=== PATIENT | male | born 1945 | race Caucasian/White ===

== ENCOUNTER 2023-08-29 09:07 | Outpatient (CLI) | payer MEDICARE, BC, SELFPAY ==
--- OUTSIDE RECORDS SUMMARY | 2023-08-29 09:21 | XMS_ITS | Clinical Summary ---
Author Name Unknown Organization [employer] [facility] Address [place], [place] [address] Care Team Providers Care Rig Superintendent Name Role Phone Post, Dave Velazquez MD Primary Care Provider Moshe Enciso MD Unavailable Arie Justin MD Unavailable [phone] [facility], [facility] Unavailable Murali Hoover DPM Unavailable [phone] Allergies No known active allergies Medications Medication Sig Dispensed Refills Start Date End Date Status omega-3 fatty acids-vitamin E (FISH OIL) 1,000 mg cap Take 2 Capsules by mouth once daily. 0 06/02/2010 Active metFORMIN (GLUCOPHAGE) 1,000 mg tabletIndications:T ype 2 diabetes mellitus with complication, without long-term current use of insulin (HC) Take 1 tablet by mouth 2 times daily with meals. 180 tablet 3 03/22/2018 Active coenzyme q10 100 mg cap Take 3 capsules by mouth once daily. 0 07/04/2019 Active cholecalciferol (VITAMIN D3) 2,000 unit capsule Take 1 Capsule (2,000 units) by mouth once daily. 0 04/21/2021 Active omeprazole 20 mg tablet Take 20 mg by mouth once daily if needed. 0 05/21/2021 Active Lantus Solostar U-100 Insulin 100 unit/mL (3 mL) penIndications:Unco ntrolled type 2 diabetes mellitus with hyperglycemia (HC) Inject 24 units subcutaneous before bedtime. Product desired: SNEHA JACOBSENOSTAR 1 Each 0 09/10/2021 Active cyanocobalamin (Vitamin B-12) 1,000 mcg tabletIndications:V itamin B12 deficiency Take 1 Tablet (1,000 mcg) by mouth once daily. 90 Tablet 3 12/28/2021 Active atorvastatin (LIPITOR) 40 mg tablet Take 40 mg by mouth at bedtime. 0 Active semaglutide (OZEMPIC) 1 mg/dose (4 mg/3 mL) Inject 1 mg subcutaneous every Monday. 0 02/02/2022 Active aspirin (ECOTRIN) 81 mg enteric coated tablet Take 81 mg by mouth once daily with a meal. 0 Active polyethylene glycol (MIRALAX; GLYCOLAX) 17 g powder for solutionIndications :Constipation due to pain medication Take 17 g by mouth or nasogastric tube once daily. 30 Each 0 05/31/2022 Active melatonin 3 mg tabletIndications:I nsomnia, unspecified type Take 1 Tablet (3 mg) by mouth at bedtime. 0 06/02/2022 Active tamsulosin (FLOMAX) 0.4 mg capsuleIndications: Urinary retention Take 1 Capsule (0.4 mg) by mouth once daily after a meal. 30 Capsule 0 06/03/2022 Active finasteride (PROSCAR) 5 mg tabletIndications:B PH with urinary obstruction Take 1 Tablet (5 mg) by mouth every morning. 0 06/30/2022 Active wheelchairIndicatio ns:Diabetic infection of right foot (HC) Wheelchair: Standard with leg rests: (Swing away) + cushion . Length of need: 99 months 1 Each 0 07/04/2022 Active clopidogreL (PLAVIX) 75 mg tablet Take 75 mg by mouth every morning. 0 06/28/2023 Active Active Problems Problem Noted Date Diagnosed Date Urinary retention 08/31/2022 Overview: Dr. Barrientos. Gordon placed during critical illness 03/2022. Outpatient cystoscopy without evidence of obstruction. Urodynamic studies planned. S/P Left shoulder I&D DOS:05/03/2022 Dr. 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 Staphylococcal arthritis of left shoulder 2021 COVID-19 virus infection 05/01/2022 Coronary artery disease due to calcified coronar y lesion 05/21/2021 Overview: Asymptomatic, discovered on CT. Inferoapical ischemia on myoview. Last done 2018. Sees Cardiology, managed medically. Osteomyelitis of left foot 07/03/2014 Diabetic foot ulcer 10/10/2013 GERD (gastroesophageal reflux disease) 3 ACP (advance care planning) 05/03/2013 Dysphagia - soft foods 04/22/2013 Venous insufficiency 07/01/2010 Diabetes mellitus type II 06/02/2010 Overview: Diagnosed in the . Historically exercise and diet controlled. Worsened 2009 after not exercising. eye exam no retinopathy 05/2010. Myalgias with atorvastatin. Neuropathy 06/02/2010 Routine general medical examination 06/02/2010 Overview: Alcoholism- sober since 2001. AAA- normal 2009 Colonoscopy- Has never had. Has declined thus far. colonoguard negative 2017. Prostate- Discussed again 2013, he declines. Bone- Age 66 if risks Depression- All Immunizations- Discussed PCV13 and tdap 2013, he declines for now. Pneumococcus had at age 63. Diabetic infection of left foot Resolved Problems Problem Noted Date Diagnosed Date Resolved Date BPH with urinary obstruction 06/17/2022 08/31/2022 SURYA (acute kidney injury) 05/21/2022 Pneumonia due to infectious organism 05/20/2022 06/17/2022 Bacteremia 05/02/2022 06/17/2022 Non-healing non-surgical wound 05/02/2022 08/31/2022 Overview: Bottom LEFT foot Sepsis due to methicillin tejada sceptible Staphylococcus aureus (MSSA) without acute organ dysfunction 05/02/2022 06/17/2022 Irregular heart rhythm 05/01/202206/17 Left arm pain 05/01/2022 06/17/2022 Left shoulder pain 05/01/2022 2 Bacteremia 06/04/2021 06/17/2022 Coronary artery calcification seen on CT scan 11/22/19 18 05/21/2021 Overview: Met with Cardiology and had perfusion imaging 2016. Cellulitis of left foot 07/03/201403/01 Severe sepsis 07/03/2014 05/19/2021 Toe ulcer 01/23/2014 06/17/2022 Callus of foot 05/03/2013 06/17/2022 Osteomyelitis of ankle or foot, right, acute 3 07/03/2014 Hypertrophy of prostate with urinary obstruction and other lower urinary tract symptoms (LUTS) 05/19/2011 03/17/2017 Overview: flomax didn't help Jayde Care Contract 07/13/2010 012 Overview: This patient, PCP and Care Guide have signed a letter agreeing on a set of goals for diabetes, hypertension and/or CHF. Please look for Jayde Care Goal Contract in Chart Review/ Letters and support this effort. Please direct questions to Care Guide Pamella Brennan Phone number [phone]. Alcohol abuse 06/02/2010 03/26/2019 Overview: Sober since 2001. Great success with AA. 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 06/17/2022 Encounters Date Type Department Care Team Description 07/21/2023 1:30 PM ALMOND GRINDER Office Visit [facility] Darleen Thompson [address] [place] [address] [address] [place] [id number] Jose Oliver MD CV General Cardiology Est (Overdue Annual F/U; Pt had an angiogram and was told he had an irregular heartbeat and needed to see cardiology) 07/21/2023 Telephone [facility] [place] [address] [facility] [address] [place] [phone] Jose Oliver MD Referral 07/21/2023 Orders Only [facility] [address] [facility] [address] [place] [address] Angelita Aquino <No scans attached> 07/21/2023 Travel 06/02/2023 Telephone [facility] [place] [address] [facility] [address] [place] [address] Post, Dave Velazquez MD verbal orders from Last 3 Months Immunizations Name Administration Dates Next Due Influenza Virus, Unspecified 06/18/2007 Influenza, High-dose Quadriv alent Inactivated 04/21/2020 Influenza, IIV4 04/27/2018,07/01/2016,07/08/2014 Pneumococcal Poly,23-Valent (Pneumovax) 11/04/19 11 Pneumococcal conj 13-Valent (Prevnar 13) 016 Pneumococcal, Unspecified 04/19/2007 Td, Preservative Free (age >= 7 Years) 6 Tdap 09/20/2015 Tetanus Toxoid, Unspecified 03/09/2007 Zoster (Shingrix-RZV, recombinant) 07/16/2020, Family History Medical History Relation Name Comments Cancer Father : Eseligio ageal Cancer Heart Disease Father bypass age 65 Cancer Mother Melanoma; Yamilexe ntly living age 87 Good Health Sister 1 Good Health Sister 2 Relation Name Status Comments Father Mother Sister 1 Sister 2 Social History Tobacco Use Types Packs/Day Years Used Date Smoking Tobacco: Former Cigarettes 1 50 0 08/14/1962 - 08/14/2012 Smokeless Tobacco: Never Tobacco Cessation:Counseling Given: Yes Comments:06/2012 Alcohol Use Standard Drinks/Week Comments No 0 (1 standard drink = 0.6 oz pur e alcohol) Sober since 2001. PHQ-2 Answer Date Recorded PHQ-2 Score 1 03/26/2019 Social Connections Answer Date Recorded Frequency of Communication with Friends and Fami ly Not on file 07/30/2021 Financial Resource Strain Answer Date R ecorded Difficulty of Paying Living Expenses Not on file 07/30/2021 Difficulty of Paying Living Expenses Not on file 07/30/2021 Sex and Gender Information Value Date Recorded Sex Assigned at Not on file Gender Identity Not on file Sexual Orientation Not on file Obstetrics History Last Filed Vital Signs Vital Sign Reading Time Taken Comments Blood Pressure 126/60 07/21/2023 1:34 PM ALMOND GRINDER Pulse 75 07/21/2023 1:34 PM ALMOND GRINDER Temperature 36.7 ??C (98 ??F) 06/29/2022 8:43 AM ALMOND GRINDER Respiratory Rate 18 06/29/2022 8:43 AM ALMOND GRINDER Oxygen Saturation 96% 07/21/2023 1:34 PM ALMOND GRINDER Inhaled Oxygen Concentration - - Weight 104.3 kg (230 lb) 07/21/2023 1:34 PM ALMOND GRINDER Height 180.3 cm (5' 10.98) 07/21/2023 1:34 PM C Body Mass Index 32.09 07/21/2023 1:34 PM ALMOND GRINDER Plan of Treatment Upcoming Encounters Date Type Department Care Team (Late st Contact Info) Description 09/04/2023 10:30 AM ALMOND GRINDER Ancillary Procedure [facility] [address] [place] [id number] Health Maintenance Due Date Last Done Comments COVID-19 vaccine series (#1) 1945 Hepatitis C screening for ag e 18-79 1964 Pneumococcal series for age 65+ (3 of 3 - PPSV23 or PCV20) 09/11/2016 09/11/2015, 11/03/2010, 04/19/2007 Medicare Wellness for age 65+ 03/25/2020 03/26/2019, 03/22/2018 Depression screening for age 12+ 03/26/2020 03/26/20 19, 03/22/2018 Influenza for age 65+ 03/31/2023 04/21/2020 , 04/27/2018, 07/01/2016, Additional history exists Low Dose CT (for lung CA) ag e 50-80 05/10/2023 05/10/2022, 04/30/2022, 06/04/2021 BMI (ht and wt on same day) for age 18+ 07/21/2024 07/21/2023, 09/10/2021, 07/04/2019, Additional history exists Tetanus booster 09/20/2025 09/20/2015, 09/11/2015 Fecal testing non-DNA (FIT,FOBT,iFOBT) for age 45-75 Discontinued 07/03/2013 Tdap Completed 09/20/2015 Zoster (shingles) series for age 50+ Completed 07/16/2020, 04/21/2020 Medical Devices Implanted Type Area Dental Biller Device Identifier Shelf Expiration Date Model / Serial / Lot [id number] - [id number] Implanted:Qty: 1 on 09/20/2021 at [facility] Right: Foot [employer] AR-8725-4 4H / / Description:COMPRESSION FT S CREWS CANNULATED, 2.5 MICRO 44MM LOAD 4 [id number] [facility]1530p - [id number] Implanted:Qty: 1 on 09/20/2021 at [facility] Right: Foot [employer] 03/30/2025 AR-1530P- CP / / [id number] Description:FOREFOOT INTERNA L BRACE IMPLANT SYSTEM, PEEK Screw 4.79t26db Bio Compositetenodesis Disp Card Grinder Pk - [id number] Implanted:Qty: 1 on 09/20/2021 at [facility] Right: Foot [employer] 08/30/2022 AR-1547CD S / / [id number] Ancr Sut 1.3mm Dx Fibertak Suturetape 2 Ndl 26.2mm /2 Cir - [id number] Implanted:Qty: 1 on 09/20/2021 at [facility] Right: Foot [employer] 06/29/2026 AR-8990ST / / [id number] Explanted Type Area Dental Biller Device Identifier Shelf Expiration Date Model / Serial / Lot Wire Kirs .[id number] Smooth6/Pk 1645- Depuy/Héctor - [id number] Explanted:Qty: 1 on 09/20/2021 at [facility] Right: Foot [employer] / / Description:LOAD 4 8 [id number] [facility]8737-40 - [id number] Explanted:Qty: 1 on 09/20/2021 at [facility] Right: Foot [employer] AR-8737-40 / / Description:2.5 MICRO COMPRE SSION FT DRILLS AND DISPOSABLES, GUIDEWIRE W TROCAR TIP, THREADED, 0.34 IN (.86MM) LOAD 4 [id number] Procedures Procedure Name Priority Date/Time Associated Diagnosis Comments EXTENDED HOLTER Routine 08/03/2023 SOB (shortness of breath) Fatigue, unspecified type Irregular heart beat EKG 12 LEAD Routine 07/21/2023 3:01 PM ALMOND GRINDER SOB (shortness of breath) Fatigue, unspecified type Irregular heart beat from Last 3 Months Results * ZIO PATCH XT - weekly to monthly symptoms. (08/03/2023) Jose Oliver MD CARDIAC SERVICES ORD * EKG 12 LEAD (07/21/2023 3:01 PM ALMOND GRINDER) Interpretation Sinus tachycardia with 1st degree A-V block Left axis deviation Right bundle branch block Abnormal ECG When compared with ECG of 18-JUN-2022 12:48, Premature atrial complexes are no longer Present Ventricular Rate 105 BPM Atrial Rate 105 BPM P-R Interval 224 ms QRS Duration 146 ms QT 374 ms QTc 494 ms P Buckner 73 degrees R Buckner -86 degrees T Buckner 69 degrees 07/21/2023 3:01 PM ALMOND GRINDER 07/21/2023 4:31 PM ALMOND GRINDER Jose Oliver MD EKG ORD from Last 3 Months Advance Directives Documents on File Type Date Recorded Patient Curve Saw Operator Expl anation Healthcare Directive 05/21/2021 3:50 PM H EALTH CARE DIRECTIVE 2020 Latest Code Status on File Code Status Date Activated Date Inactivated Comments Full Code 06/18/2022 7:33 AM 06/29/2022 4:12 PM Question Answer Comments Code Status Discussion: Reviewed Preferences Code Status History Code Status Date Activated Date Inactivated Comments Full Code 06/17/2022 6:52 PM 06/18/2022 7:33 AM Question Answer Comments Code Status Discussion: Unable to Assess Preferences, Provider to review later Full Code 05/01/2022 1:05 AM 05/30/2022 5:42 PM Question Answer Comments Code Status Discussion: Reviewed Preferences Full Code 09/20/2021 7:15 AM 09/20/2021 4:26 PM Question Answer Comments Code Status Discussion: Unable to Assess Preferences, Provider to review later DNR 06/03/2021 3:05 PM 06/09/2021 1:31 PM Question Answer Comments Code Status Discussion: Reviewed Preferences Care Teams Rig Superintendent Relationship Specialty Start Date End Date Post, Dave Velazquez MD PCP - General 06/02/10 [place] [address] [place] [address] [address] [place], [place] [address] Endocrinology Endocrinology 01/04/18 [place] [address] [place], [place] [id number] Surgery - Ophthalmology 03/22/18 [facility] [address] [facility] [address] [place] [address] 06/08/21 Murali Hoover DPM [address] [place] [place] [address] Surgery - Podiatric 01/03/23
--- OUTSIDE RECORDS SUMMARY | 2023-08-29 09:21 | XMS_ITS | Clinical Summary ---
Author Name Unknown Organization [facility] Address [address] [place] [address] Care Team Providers Care Explosives Detonator Name Role Phone Post, Dave Wakefield Primary Care Provider [phone] Medications Medication Sig Dispensed Refills Start Date End Date Status sulfamethoxazole-trim ethoprim (BACTRIM DS/SEPTRA DS) 800-160 MG tablet Take 1 tablet by mouth 2 times daily 20 tablet 0 06/26/2018 Active Social History Tobacco Use Types Packs/Day Years Used Date Smoking Tobacco: Former Smokeless Tobacco: Never Alcohol Use Standard Drinks/Week Comments No 0 (1 standard drink = 0.6 oz pur e alcohol) Adolescent Education Answer Date Record ed Getting School Help Needed Not on file 05/07 Sex and Gender Information Value Date Recorded Sex Assigned at Not on file Gender Identity Not on file Sexual Orientation Not on file Last Filed Vital Signs Vital Sign Reading Time Taken Comments Blood Pressure 148/85 06/26/2018 5:58 PM CHILD WELFARE SPECIALIST Pulse 90 06/26/2018 5:58 PM CHILD WELFARE SPECIALIST Temperature 36.6 ??C (97.8 ??F) 06/26/2018 5:58 PM CS T Respiratory Rate 18 06/26/2018 5:58 PM CHILD WELFARE SPECIALIST Oxygen Saturation 95% 06/26/2018 7:00 PM CHILD WELFARE SPECIALIST Inhaled Oxygen Concentration - - Weight 112 kg (247 lb) 06/26/2018 5:58 PM CHILD WELFARE SPECIALIST Height 180.3 cm (5' 11) 06/26/2018 5:58 PM CHILD WELFARE SPECIALIST Body Mass Index 34.45 06/26/2018 5:58 PM CHILD WELFARE SPECIALIST Plan of Treatment Health Maintenance Due Date Last Done Comments A1C 1945 ADVANCE CARE PLANNING 1945 ANNUAL REVIEW OF HM ORDERS 1946 DIABETIC FOOT EXAM 1945 EYE EXAM 1945 LIPID 1945 MICROALBUMIN 1946 COVID-19 Vaccine (#1) 1945 HEPATITIS C SCREENING 1964 LUNG CANCER SCREENING 1996 ZOSTER IMMUNIZATION (1 of 2) 1996 RSV VACCINE ( & 60+ ) (1 - 1-dose 60+ series) 2006 FALL RISK ASSESSMENT 2011 MEDICARE ANNUAL WELLNESS VISIT 2011 DTAP/TDAP/TD IMMUNIZATION (1 - Tdap) 09/12/2015 09/11/2015 Pneumococcal Vaccine: 65+ Years (3 of 3 - PPSV23 or PCV20) 09/11/2016 09/11/2015, 11/03/2010 INFLUENZA VACCINE (#1) 2023 6, 07/08/2014 BMP 06/30/2023 06/30/2022, 06/26/2018 PHQ-2 (once per calendar year) 2023 HPV IMMUNIZATION Aged Out No longer e ligible based on patient's age to complete this topic IPV IMMUNIZATION Aged Out No longer e ligible based on patient's age to complete this topic MENINGITIS IMMUNIZATION Aged Out No l onger eligible based on patient's age to complete this topic RSV MONOCLONAL ANTIBODY Aged Out No l onger eligible based on patient's age to complete this topic Care Teams Explosives Detonator Relationship Specialty Start Date End Date Post, Dave Wakefield PCP - General Internal Medicine 06/26/18
--- OUTSIDE RECORDS SUMMARY | 2023-08-29 09:21 | XMS_ITS | Encounter Summary ---
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 Organization [facility] Address [address] [place] [address] Support Name Relationship Address Phone DOROTHY DUONG Next of Kin Unknown DOROTHY DUONG Emergency Contact Unknown [phone] Insurance Providers: All historical and current Section Date Range: From patient's date of to the date document was created. This section includes the names of all active insurance providers for the patient. Insurance Provider Type of Coverage Plan Name Start of Policy Coverage End of Policy Coverage Group Number Member ID Insurance Provider's Telephone Number Policy Molina's Name Patient's Relationship to Policy Molina [place] SU[place] [employer] SUPPL EMENT Jul 31, 2018 [id number] RODNEYBRITTNEYKANE ALEX PATIENT [place] SUPPL EMENT Jul 31, 2018 [id number] [phone] [place] [facility] (WNR) MEDICARE ADVANTAGE [facility] (WNR) Jul 31, 2017 [id number] [phone] RENBR[place]NEYK[place] ALEX PATIENT [place] SUPPLEMEN [place] MED[place] ARE SUPPL EMENT Jul 31, 2018 [id number] [phone] REN[place] A[place] PATIENT [place] SUPPLEMEN [place] MED[place] ARE SUPPL EMENT Jul 31, 2018 [id number] [phone] RODNEYBRITTNEYKANE ALEX PATIENT MEDICARE (WNR) MEDICARE (M) PART A May 31, 2011 PART A [id number] [phone] BETOKANE JOHNSON PATIENT MEDICARE (WNR) MEDICARE (M) PART B May 31, 2011 PART B [id number] [phone] KANE PÉREZN PATIENT Selected Encounter This section includes the information on record at [place] for the Encounter. Date/Time Encounter Type Encounter Description Reason Provider Source Sep 29, 2022 11:30 AM PRO PHONE CALL 11-20 MIN TELEPHONE PRIMARY CARE ICD-10-CM E11.42 Type 2 diabetes mellitus with diabetic polyneuropathy KARI BRITO [facility] Encounter Template Text not used by [place] Assessments - Encounter Diagnoses This section includes the primary and secondary diagnoses documented for the Encounter. Date/Time Primary/Secondary Diagnosis Diagnosis Name Provider Source Sep 29, 2022 11:30 AM PRIMARY Type 2 diabetes mellitus with diabetic polyneuropathy KARI BRITO [facility] Plan of Treatment: Future Appointments (+ 6 months) and Future Tests (+/- 45 days) The Plan of Treatment section includes future care activities for the patient from all [place] treatmentfacilities. This section includes future appointments and future orders which are active, pending or scheduled. Future Appointments This section includes appointments that were scheduled to occur 6 months from the date of the Encounter, up to a maximum of 20 appointments. The data comes from all [place] treatment facilities. Appointment Date/Time Appointment Type Appointme nt Facility Name Nov 07, 2022 11:30 AM AMBULATORY - MEDICINE [facility] December 05, 2022 07:01 AM AMBULATORY - NONE [facility] December 07, 2022 11:30 AM AMBULATORY - MEDICINE [facility] December 27, 2022 09:30 AM AMBULATORY - MEDICINE [facility] Jan 06, 2023 11:30 AM [facility] Mar 14, 2023 03:30 PM [facility] Mar 22, 2023 01:45 PM [facility]ONE [facility] Mar 22, 2023 02:45 PM AMBULATORY - MEDICINE [facility] Social History: Smoking Status (Most current) and Tobacco Use (All prior to encounter date) This section includes the most current, and the historical, smoking and tobacco- related health factors from the [place] facility where the Encounter took place. Current Smoking Status This section includes the most current smoking, or tobacco-related health factor, from the [place] facility where the Encounter took place. Date/Time Current Smoking Status Comment Facil ity Aug 18, 2022 08:30 AM [place]-TOBAC[place] QUIT 15 YRS OR MORE [facility] Tobacco Use History This section includes a history of the smoking, or tobacco-related health factors, that were collected on or before the date of the Encounter. The data comes from the [place] facility where the Encounter took place. Date/Time Smoking Status/Tobacco Use Comment F acility Aug 18, 2022 08:30 AM [place]-TOBACCO QUIT 15 YRS OR MORE [facility] May 03, 2021 08:00 AM VA-TOBACCO FORMER USER [facility] May 03, 2021 08:00 AM VA-TOBACCO QUIT 15 YRS OR MORE [facility] Apr 21, 2020 09:00 AM VA-TOBACCO FORMER USER [facility] Apr 21, 2020 09:00 AM [place] 15 YRS OR MORE [facility] Apr 03, 2018 03:16 PM FORMER TOBACCO USE >1Y <7Y [facility] Mar 09, 2007 10:41 AM CURRENT TOBACCO USER [facility] Advance Directives: All historical and current Section Date Range: From patient's date of to the date document was created. This section includes ALL of a patient's completed or amended [place] Advance and Rescinded Directives. The entries below indicate that a directive exists for the patient, but an actual copy is not included with this document. The data comes from all [facility]. Date Advance Directives Provider Source Jun 22, 2021 ADVANCE DIRECTIVE DISCUSSION ALLYSON GRAF [facility] Jun 22, 2021 ADVANCE DIRECTIVE ALLYSON GRAF [facility] Mar 09, 2007 ADVANCE DIRECTIVE SOLEDAD WOLFF [facility] Encounter Notes: All associated encounter notes This section contains the clinical notes associated to the Encounter. Date/Time Encounter Note(s) Provider Source Sep 29, 2022 11:09 AM PHARMACY NOTE: LOCAL TITLE: PHARMACOTHERAPY-CLINICAL PHARMACY NOTE STANDARD TITLE: PHARMACY NOTE DATE OF NOTE: SEP 29, 2022@11:09 ENTRY DATE: SEP 29, 2022@11:09:45 AUTHOR: BROOKLYN MORA EXP COSIGNER: KARI BRITO URGENCY: STATUS: COMPLETED PHARMACOTHERAPY-CLINICAL PHARMACY NOTE Has ADDENDA BACKGROUND: RENAUX,MIGUELINA CHRISTIAN is a 77 YO MALE contacted by phone for medication management, mainly for DM. PMH is significant for T2DM with chronic foot infections, GERD, and HLD. SUBJECTIVE: Not feeling organized at the time of the call. About 2 weeks ago he saw something that said he should be doing 22 units Lantus as opposed to the 25 units he thought he was supposed to be taking. He has since been taking 22 units. He is not happy about checking blood sugars via finger sticks after 30 years. He wants to use a CGM to avoid this, but he recalls previous conversations about him not being eligible. He wants to go back up to 1mg semaglutide when he can but understands that it is not yet available. He has a 1mg pen at home that is unopened. He is not sure of the expiration date on the 1mg pen. Blood sugar was all over the place while in the hospital. No dizziness or lightheadedness reported. Not able to urinate right now, having difficulty since hospitalization. Seeing a urologist for testing. 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 Beverages: diet coke, water, coffee Activity: Activity is down but increasing slowly. Due to his foot infection, he uses a wheelchair. He is in the process of transitioning to walker and has been able to take a few steps per day with the walker. Having some balance issues. No falls. Last walked 04/27/2022. ROS: (-) hypoglycemia symptoms --> denies any recent lows. Experiences symptoms when he is below 70-80. He is aware of signs/sxs. Reports awareness in the past on some occasions. Lowest recalled reading was 95. (-) hyperglycemia symptoms SMBG Readings: Date Morning 09/09 150 09/10 126 09/11 120 09/12 113 09/13 115 09/14 110 09/16 111 09/17 109 09/18 95 09/19 100 09/21 153 09/22 136 09/23 140 09/24 116 09/25 160 09/26 143 09/27 111 09/28 140 09/[address] 124 MIN 95 MAX 160 Home BP Readings: Reports 115-130s/75-80s at home. Did not have actual readings. Nurse checks 3 times weekly. Adherence to medications: Manages independently. Denies any issues with missed doses. OBJECTIVE: ALLERGIES/ADR: VANCOMYCIN (Apr 27, 2018) MEDICATION RECONCILIATION: Active and Recently Outpatient Medications (excluding Supplies): Active Outpatient Medications Status 1) ATORVASTATIN CALCIUM 40MG TAB TAKE ONE TABLET BY ACTIVE MOUTH EVERY DAY FOR CHOLESTEROL 2) FINASTERIDE 5MG TAB TAKE ONE TABLET BY MOUTH EVERY ACTIVE DAY FOR PROSTATE 3) INSULIN,GLARGINE 100 UNT/ML 3ML SOLOSTAR INJECT 24 see text UNITS UNDER THE SKIN AT BEDTIME FOR DIABETES - has been taking 22 units daily x 2 weeks 4) METFORMIN HCL 1000MG TAB TAKE ONE TABLET BY MOUTH confirmed TWICE A DAY FOR DIABETES 5) OMEPRAZOLE 20MG EC CAP TAKE ONE CAPSULE BY MOUTH HOLD EVERY DAY ON AN EMPTY STOMACH, AT LEAST 30 MINUTES PRIOR TO A MEAL FOR GERD 6) SEMAGLUTIDE 0.5MG/0.375ML INJ PEN 1.5ML INJECT 0.5MG confirmed UNDER THE SKIN EVERY WEEK FOR DIABETES 7) TAMSULOSIN HCL 0.4MG CAP TAKE ONE CAPSULE BY MOUTH ACTIVE (S) EVERY EVENING Active Non-VA Medications Status 1) Non-VA ASCORBIC ACID 500MG TAB 500MG MOUTH TWICE A ACTIVE DAY 2) Non-VA ASPIRIN 81MG EC TAB 81 MG MOUTH EVERY DAY ACTIVE 3) Non-VA CHOLECALCIFEROL TAB 5000 UNITS MOUTH EVERY DAY ACTIVE 4) Non-VA COENZYME Q10 100MG TAB/CAP 1 CAPSULE MOUTH ACTIVE EVERY DAY 5) Non-VA CYANOCOBALAMIN 1000MCG TAB 1000MCG MOUTH EVERY ACTIVE DAY 6) Non-VA FISH OIL 1000MG (500MG DHA/EPA) CAP 1 GM MOUTH ACTIVE TWICE A DAY 7) Non-VA MAGNESIUM OXIDE 400MG TAB 400MG MOUTH EVERY ACTIVE DAY 8) Non-VA TURMERIC CAP/TAB 500 MG MOUTH TWICE A DAY ACTIVE 15 Total Medications Vitals: Temperature: 97 F [36.1 C] (08/18/2022 08:26) Blood Pressure: 94/64 (08/18/2022 08:33) Pulse: 78 (08/18/2022 08:26) Respiration: 18 (08/18/2022 08:26) Pain: 5 (08/18/2022 08:26) Height: 71 in [180.3 cm] (08/03/2021 12:53) Weight: Unavailable (08/18/2022 08:26) BMI: 0.0 LABS: Basic Metabolic Panel SODIUM 137 (08/18/22) POTASSIUM 3.9 (08/18/22) CREATININE 0.9 (08/18/22) UREA NITROGEN 12 (08/18/22) GLUCOSE 184 H (08/18/22) CO2 26 (08/18/22) CHLORIDE 102 (08/18/22) EGFR (03/03) 08/03/21 @ 1226 94 CREATININE EGFR (CKD-EPI) 08/18/22 @ 0731 89 MAGNESIUM 1.6 (08/18/22) Collection DT Specimen Test Name Result Units Ref Range 08/18/2022 07:31 PLASMA CREATININE 0.9 mg/dL 0.7 - 1.2 12/22/2021 14:31 PLASMA CREATININE 1.1 mg/dL 0.7 - 1.2 08/03/2021 12:26 PLASMA CREATININE 0.8 mg/dL 0.7 - 1.2 08/18/2022 07:31 PLASMA CREAT EGFR(CKD-EP 89 Ref: >=60 12/22/2021 14:31 PLASMA CREAT EGFR(CKD-EP 70 Ref: >=60 08/03/2021 12:26 PLASMA ESTIMATED GFR(eGF >60 Ref: >=60 06/15/2021 11:53 PLASMA ESTIMATED GFR(eGF >60 Ref: >=60 05/03/2021 09:07 PLASMA ESTIMATED GFR(eGF >60 Ref: >=60 Collection DT Spec HGBA1C 08/18/2022 07:31 BLOOD 6.8 H 12/22/2021 14:31 BLOOD 8.2 H 08/03/2021 12:26 BLOOD 8.3 H Collection DT Specimen Test Name Result Units Ref Range 05/03/2021 09:35 URINE ALB/CREAT RATIO,U 39.7 H mg/g creat Ref: <=29.9 04/19/2007 14:08 URINE ALB/CREAT RATIO,U 9.70 mg/gCreat 0 - 30 ASSESSMENT: #T2DM with a positive c-peptide -Goal A1c <8% (FBG 80-160, PPG <210) per [place] guidelines. Last A1c was down significantly and below goal. Current SMBG values are acceptable. Offered clarification on reasoning for why a personal CGM would not be approved. Rediscussed using the 2-week diagnostic CGM to help track trends, if interested. Will continue the present regimen with 22 units glargine. Going forward, will revisit moving back up to the 1 mg dose of semaglutide, pending supply availability. PLAN: Medications: -Continue 22 units insulin glargine. -Continue metformin 1000mg BID -Continue semaglutide 0.5mg once weekly Monitoring: -Check BG once daily, varying times #Disease-Specific Med Rec: Completed today #Labs: up to date - Educated vet on indication/risks/benefits of new/changed medication. - Education provided on therapeutic nonpharmacologic management to achieve goals. - Vet advised of recent labs. - [place] verbalized understanding to all plans discussed today. Questions were answered to vet's satisfaction. 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 See above for further pertinent subjective and objective information. 77 yo vet contacted for DM f/u. Reports doing well. A/P #T2DM with a positive c-peptide -Goal A1c <8% (FBG 80-160, PPG <210) per [place]. Recent A1c was down significantly and below goal. Current SMBG values are acceptable. Will continue the present regimen. Going forward, will revisit moving back up to the 1 mg dose of semaglutide, pending supply availability. I agree with the rest of the assessment and POC, as above. F/U: 11/07 phone /toby/ KARI BRITO, PHARM D, [facility] PHARMACIST Signed: 09/29/2022 13:18 BROOKLYN MORA [facility]
--- OUTSIDE RECORDS SUMMARY | 2023-08-29 09:21 | XMS_ITS | Encounter Summary ---
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 Organization [facility] Address [address] [place] [address] Support Name Relationship Address Phone DOROTHY DUONG Next of Kin Unknown DOROTHY DUONG Emergency Contact Unknown Insurance Providers: All historical and current Section [...] MEDIC ARE SUPPL EMENT Jul 31, 2018 [id number] [phone] RODNEY[place] ALEX PATIENT [place] MED[place] ARE SUPPL EMENT Jul 31, 2018 [id number] [phone] [place]NEY[place] ALEX PATIENT [place] [facility] (WNR) MEDICARE ADVANTAGE [facility] (WNR) Jul 31, 2017 [id number] [phone] RENBRITTNEYKANE ALEX PATIENT [place] SUPPLE[place] MEDIC ARE SUPPL EMENT Jul 31, 2018 [id number] [phone] RENBR[place]NEYAK[place] ALEX PATIENT [place] SU[place] MEDIC ARE SUPPL EMENT Jul 31, 2018 [id number] [phone] RODNEYBRITTNEYKANE ALEX PATIENT MEDICARE (WNR) MEDICARE (M) PART A May 31, 2011 PART A [id number] [phone] RENKANE LUGO PATIENT MEDICARE (WNR) MEDICARE (M) PART B May 31, 2011 PART B [id number] [phone] KANE PÉREZ PATIENT Selected Encounter This section includes the information on record at [place] for the Encounter. Date/Time Encounter Type Encounter Description Reason Provider Source Aug 29, 2022 11:30 AM PRO PHONE CALL 11-20 MIN TELEPHONE PRIMARY CARE ICD-10-CM E11.42 Type 2 diabetes mellitus with diabetic polyneuropathy KARI BRITO [facility] Encounter Template Text not used by [place] Assessments - Encounter Diagnoses This section includes the primary and secondary diagnoses documented for the Encounter. Date/Time Primary/Secondary Diagnosis Diagnosis Name Provider Source Aug 29, 2022 11:30 AM PRIMARY Type 2 diabetes mellitus with diabetic polyneuropathy KARI BRITO [facility] Plan of Treatment: Future Appointments (+ 6 months) and Future Tests (+/- 45 days) The Plan of Treatment section includes future care activities for the patient from all [place] treatmentfacilities. This section includes future appointments and future orders which are active, pending or scheduled. Future Appointments This section includes appointments that were scheduled to occur 6 months from the date of the Encounter, up to a maximum of 20 appointments. The data comes from all [place] treatment facilities. Appointment Date/Time Appointment Type Appointme nt Facility Name Sep 29, 2022 11:30 AM AMBULATORY - MEDICINE [facility] Nov 07, 2022 11:30 AM AMBULATORY - MEDICINE [facility] December 05, 2022 07:01 AM AMBULATORY - NONE [facility] December 07, 2022 11:30 AM AMBULATORY - MEDICINE [facility] December 27, 2022 09:30 AM AMBULATORY - MED[facility] Jan 06, 2023 11:30 AM AMBULATORY - MEDICINE [facility] Lab Results: +/- 30 days of the encounter This section includes the Chemistry and Hematology Lab Results on record with [place] for the patient. Radiology Reports and Pathology Reports are provided separately, in subsequent sections. Lab Results This section contains the Chemistry/Hematology Results that were resulted 30 days before or 30 daysafter the date of the Encounter. Date/Time Source Result Type Result - Unit Interpretation Reference Range Comment Aug 18, 2022 07:31 AM [facility] HEMOGLOBIN A1C Specimen Type: BLOOD Comment: Values obtained from A1C measurements can vary. For typical A1C assays, a reported value of 7.0 could actually be between 6.7 and 7.3 if measured by a reference method. A reported value of 9.0 could actually be between 8.7 and 9.3. Ref: http://www.ngs p.org/CAPdata. asp Ordering Provider: SOSA FISH Report Released Date/Time: December 22, 2021 03:46 PM Reporting Lab: [facility] [id number] Performing Lab: [facility] [id number] HEMOGLOBIN A1C 6.8 H 4.0-6.0 Aug 18, 2022 07:31 AM [facility] BASIC METABOLIC PANEL+MG Specimen Type: PLASMA No comment entered. Ordering Provider: SOSA FISH Report Released Date/Time: December 22, 2021 03:46 PM Reporting Lab: [facility] [id number] Performing Lab: [facility] [id number] CREATININE 0.9 0.7-1.2 UREA NITROGEN 12 8-26 GLUCOSE 184 H 70-100 SODIUM 137 136-145 POTASSIUM 3.9 3.5-5.1 CHLORIDE 102 98-107 CO2 26 22-29 CALCIUM 9.4 8.4-10.2 MAGNESIUM 1.6 1.6-2.6 ANION GAP 9 5-15 CREAT EGFR(CKD-EPI ) 89 >60 Social History: Smoking Status (Most current) and Tobacco Use (All prior to encounter date) This section includes the most current, and the historical, smoking and tobacco- related health factors from the [place] facility where the Encounter took place. Current Smoking Status This section includes the most current smoking, or tobacco-related health factor, from the [place] facility where the Encounter took place. Date/Time Current Smoking Status Comment Diego peng Aug 18, 2022 08:30 AM VA-TOBACCO FORMER USER [facility] Tobacco Use History This section includes a history of the smoking, or tobacco-related health factors, that were collected on or before the date of the Encounter. The data comes from the [place] facility where the Encounter took place. Date/Time Smoking Status/Tobacco Use Comment F acsamir Aug 18, 2022 08:30 AM VA-TOBACCO QUIT 15 YRS OR MORE [facility] May 03, 2021 08:00 AM VA-TOBACCO FORMER USER [facility] May 03, 2021 08:00 AM VA-TOBACCO QUIT 15 YRS OR MORE [facility] Apr 21, 2020 09:00 AM VA-TOBACCO FORMER USER [facility] Apr 21, 2020 09:00 AM [place]-TOBACCO QUIT 15 YRS OR MORE [facility] Apr 03, 2018 03:16 PM FORMER TOBACCO USE >1Y <7Y [facility] Mar 09, 2007 10:41 AM CURRENT TOBACCO USER [facility] Advance Directives: All historical and current Section Date Range: From patient's date of to the date document was created. This section includes ALL of a patient's completed or amended [place] Advance and Rescinded Directives. The entries below indicate that a directive exists for the patient, but an actual copy is not included with this document. The data comes from all [place] facilities. Date Advance Directives Provider Source Jun 22, 2021 ADVANCE DIRECTIVE DISCUSSION ALLYSON GRAF [facility] Jun 22, 2021 ADVANCE DIRECTIVE ALLYSON GRAF [facility] Mar 09, 2007 ADVANCE DIRECTIVE SOLEDAD WOLFF [facility] Encounter Notes: All associated encounter notes This section contains the clinical notes associated to the Encounter. Date/Time Encounter Note(s) Provider Source Aug 29, 2022 11:09 AM PHARMACY NOTE: LOCAL TITLE: PHARMACOTHERAPY-CLINICAL PHARMACY NOTE STANDARD TITLE: PHARMACY NOTE DATE OF NOTE: AUG 29, 2022@11:09 ENTRY DATE: AUG 29, 2022@11:09:07 AUTHOR: KARI BRITO COSIGNER: URGENCY: STATUS: COMPLETED BACKGROUND: BETOMIGUELINA is a 77 YO MALE contacted by phone for medication management, mainly for DM. PMH is significant for T2DM with chronic foot infections, GERD, and HLD. SUBJECTIVE: In brief, has had multiple hospitalizations this past fall for cellulitis, sepsis and covid pneumonia. Has been home and doing well. Remains NWB given his foot wound--but reports this is slowly improving now. Offers no concerns about DM today. Remains interested in increasing his ozempic back up, but understands current limitations in light of supply issues. 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 He is using a wheelchair exclusively, due to his foot wound. In the summer, enjoys biking. Last walked 04/27/2022. ROS: (-) hypoglycemia symptoms --> denies any recent lows. We reviewed signs/sxs. Reports awareness in the past on some occasions. Lowest recalled reading was 96. (-) hyperglycemia symptoms SMBG Readings: Morning 08/29 120/ 08/28 120/ 08/27 118/ 08/26 115/ 08/25 101/ 08/24 115/ 08/23 113/ 08/22 120/ 08/21 110/ 08/19 159/ ave: 117 Home BP Readings: Reports 115-120s/75-80s at home. Did not have actual readings. Adherence to medications: Manages independently. Denies any issues with missed doses. OBJECTIVE: ALLERGIES/ADR: VANCOMYCIN (Apr 27, 2018) Outpatient Medications Status ======= 1) ATORVASTATIN CALCIUM 40MG TAB TAKE ONE TABLET BY HOLD MOUTH EVERY DAY FOR CHOLESTEROL 2) FINASTERIDE 5MG TAB TAKE ONE TABLET BY MOUTH EVERY ACTIVE DAY FOR PROSTATE 3) INSULIN,GLARGINE 100 UNT/ML 3ML SOLOSTAR INJECT 24 confirmed UNITS UNDER THE SKIN AT BEDTIME FOR DIABETES 4) METFORMIN HCL 1000MG TAB TAKE ONE TABLET BY MOUTH confirmed TWICE A DAY FOR DIABETES 5) OMEPRAZOLE 20MG EC CAP TAKE ONE CAPSULE BY MOUTH HOLD EVERY DAY ON AN EMPTY STOMACH, AT LEAST 30 MINUTES PRIOR TO A MEAL FOR GERD 6) SEMAGLUTIDE 0.5MG/0.375ML INJ PEN 1.5ML INJECT 0.5MG confirmed UNDER THE SKIN EVERY WEEK FOR DIABETES qWeds 7) TAMSULOSIN HCL 0.4MG CAP TAKE ONE CAPSULE BY MOUTH ACTIVE (S) EVERY EVENING Non-VA Medications Status ======= 1) Non-VA ASCORBIC ACID 500MG TAB 500MG [...] TWICE A DAY ACTIVE 15 Total Medications Previous DM Medications: -semaglutide 1 mg--->tolerated fine, reduced while in the hospital May 2022 Vitals: Temperature: 97.1 F [36.2 C] (08/03/2021 12:53) Blood Pressure: 115/79 (08/03/2021 12:53) Pulse: 98 (08/03/2021 12:53) Respiration: 18 (08/03/2021 12:53) Pain: 0 (08/03/2021 12:53) Weight: 235 lb [106.8 kg] (08/03/2021 12:53) Body Mass Index: 32.8 LABS: SMA7: Na: SODIUM 137 (08/18/22) K: POTASSIUM 3.9 (08/18/22) Cl: CHLORIDE 102 (08/18/22) CO2: CO2 26 (08/18/22) BUN: UREA NITROGEN 12 (08/18/22) Creatinine: CREATININE 0.9 (08/18/22) Glucose: GLUCOSE 184 H (08/18/22) Collection DT Specimen Test Name Result Units Ref Range 06/15/2021 11:53 PLASMA CREATININE 1.0 mg/dL 0.7 - 1.2 05/03/2021 09:07 PLASMA CREATININE 1.0 mg/dL 0.7 - 1.2 07/16/2020 10:18 PLASMA CREATININE 0.9 mg/dL 0.7 - 1.2 06/15/2021 11:53 PLASMA ESTIMATED GFR(eGF >60 Ref: >=60 05/03/2021 09:07 PLASMA ESTIMATED GFR(eGF >60 Ref: >=60 07/16/2020 10:18 PLASMA ESTIMATED GFR(eGF >60 Ref: >=60 CHOLESTEROL 124 (05/03/21) MEASURED LDL____ LDL CALCULATION 63 (05/03/21) HDL 44 (05/03/21) TRIGLYCERIDE____ Collection DT Spec HGBA1C 08/18/2022 6.8 12/22/2021 8.2 H 08/03/2021 8.3 H 2021 9.6 H (locally) 05/03/2021 09:07 BLOOD 10.1 H 07/16/2020 10:18 BLOOD 8.9 H 09/18/2007 07:19 BLOOD 9.5 H Collection DT Specimen Test Name Result Units Ref Range 05/03/2021 09:35 URINE ALB/CREAT RATIO,U 39.7 H mg/g creat Ref: <= 29.9 04/19/2007 14:08 URINE ALB/CREAT RATIO,U 9.70 mg/gCreat 0 - 30 CBC: AB BASO: 0.1 (03/09/07) AB EOS: 0.2 (03/09/07) AB LYM: 2.4 (03/09/07) AB MONO: 0.6 (03/09/07) AB NEUT: 5.7 (03/09/07) BASO: 0.7 (03/09/07) EOS: 2.7 (03/09/07) HCT: 42.2 (05/03/21) 40.9 (06/15/21) HGB: 13.5 (05/03/21) 13.2 (06/15/21) LYMPHS: 26.7 (03/09/07) MCH: 28.1 (05/03/21) 28.1 (06/15/21) MCHC: 32.0 (05/03/21) 32.3 (06/15/21) MCV: 87.9 (05/03/21) 87.2 (06/15/21) MONO: 6.2 (03/09/07) MPV: 10.3 (05/03/21) 10.5 (06/15/21) NEUT: 63.7 (03/09/07) PLT: 185 (05/03/21) 190 (06/15/21) RBC: 4.80 (05/03/21) 4.69 (06/15/21) RDW: 14.6 (05/03/21) 15.0 (06/15/21) WBC: 9.42 (05/03/21) 10.35 (06/15/21) Specimen Collection Date: May 03, 2021@09:07 Test name Result units Ref. range Site Code C-PEPTIDE 2.53 ng/mL 0.80 - 3.85 [46740] ASSESSMENT: #T2DM with a positive c-peptide -Goal A1c <8% (FBG 80-160, PPG <210) per [place] guidelines. Recent A1c was down significantly and below goal. Current SMBG values are acceptable. Offered option to repeat a diagnostic CGM to clarify trends, which he declined for now. Will continue the present regimen. Going forward, will revisit moving back up to the 1 mg dose of semaglutide, pending supply availability. PLAN: Medications: -NO changes Monitoring: -Check BID, including some post-prandials #Disease-Specific Med Rec: Completed today #Labs: up-to-date - Educated vet on indication/risks/benefits of new/changed medication. - Education provided on therapeutic nonpharmacologic management to achieve goals. - Vet advised of recent labs. - verbalized understanding to all plans discussed today. Questions were answered to vet's satisfaction. Time spent: 20 minutes RTC: -3/2 pharmD phone -prefers to avoid [facility]-only has a cellphone /toby/ KARI BRITO PHARM D, [facility] PHARMACIST Signed: 08/29/2022 13:24 KARI BRITO [facility]
--- OUTSIDE RECORDS SUMMARY | 2023-08-29 09:21 | XMS_ITS | Continuity of Care Document ---
Author Name [facility] Organization [facility] Care Team Providers Care Acetylene Cutter Name Role Phone [facility] Unavailable Unavailable Problems Combined list of problems from [facility] and [facility] facilities. It does not include entries that were removed or entered in error. Problem Status Onset Date Problem Type Date of Resolution Comments Source Depressive Disorder NOS * (ICD-9-CM 311./300.4) Active Condition [facility] Diabetes mellitus (SNOMED CT 98973506) Active Condition [facility] Diabetic neuropathy Active Condition [facility] Foot Pain (ICD-9-CM 719.47) Active Condition Aug 26 10 Entered By: RASHMI WORLEY Comment: left 5th metatarsal fracture [facility] History of amputation of lesser toe Active Condition [facility] Hyperlipidemia (SNOMED CT 50554988) Active Condition [facility] Hyperuricemia Active Condition [facility] Osteopenia Active Condition [place] Other Iatrogenic Hypotension Active Condition [place] [facility] Personal History of Alcoholism (ICD-9-CM V11.3) Active Condition [facility] Tobacco user (SNOMED CT 834353495) Active Condition [facility] Diagnosis: ICD-10-CM E11.42 Type 2 diabetes mellitus with diabetic polyneuropathy Active Diagnosis [facility] Diagnosis: ICD-10-CM E11.621 Type 2 diabetes mellitus with foot ulcer Active Diagnosis [facility] Diagnosis: ICD-10-CM Z77.29 Contact with and exposure to other hazardous substances Active Diagnosis [facility] Medications Combined list of outpatient medications from Department [facility] and [facility] facilities.Medications provided include 1) outpatient medications from the last 15 months, and 2) patient-reported medications. Medication Details Route Status Patient Instructions Prescription Expires Prescription Number Last Dispense Date Ordering Provider Order Date Source ASCORBIC ACID 500MG TAB TAKE ONE TABLET BY MOUTH TWICE A DAY ORALLY ACTIVE [facility] ASPIRIN 81MG TAB,EC TAKE ONE TABLET BY MOUTH EVERY DAY ORALLY ACTIVE JEFF CHOUDHARY ER A 2006 [place] [facility] ATORVASTATI N [place] 40MG TAB TAKE ONE TABLET BY MOUTH EVERY DAY FOR CHOLESTE ROL ORALLY ACTIVE 04/11/2024 [id number] 3 CHARLEE FISH A 2022 [place] [facility] ATORVASTATI N [place] 40MG TAB TAKE ONE TABLET BY MOUTH EVERY DAY FOR CHOLESTE ROL ORALLY DISCONT INUED 07/15/2023 [id number] 3 NAIDL,TOD D 2022 [place] [facility] ATORVASTATI N [place] 80MG TAB TAKE ONE-HALF TABLET BY MOUTH EVERY DAY FOR CHOLESTE ROL ORALLY DISCONT INUED (EDIT) 07/15/2023 [id number] 2 NAIDL,TOD D 2021 [employer] [facility] CEFADROXIL 500MG CAP TAKE TWO CAPSULES BY MOUTH EVERY 12 HOURS FOR 21 DAYS ORALLY 07/12/2022 [id number] 2 FISH, CHARLEE A 2021 [facility] CHOLECALCIF QUINTIN TAB TAKE 5000 UNITS BY MOUTH EVERY DAY ORALLY ACTIVE FISHCHARLEE Bowers A 2022 [employer] [facility] [facility] COENZYME Q10 CAP/TAB TAKE 1 CAPSULE BY MOUTH EVERY DAY ORALLY ACTIVE FISHCHARLEE Bowers A 2022 [facility] CYANOCOBALA MIN 1000MCG TAB TAKE ONE TABLET BY MOUTH EVERY DAY ORALLY ACTIVE NAIDL,TOD D 2021 [facility] DICLOFENAC NA 1% GEL,TOP APPLY 4 GRAMS TOPICALL Y FOUR TIMES A DAY NEEDED FOR JOINT PAIN TOPICA LLY ACTIVE 03/22/2024 [id number] 3 ABE CHARLEE A 2022 [place] [facility] FINASTERIDE 5MG TAB TAKE ONE TABLET BY MOUTH EVERY DAY FOR PROSTATE ORALLY ACTIVE 04/11/2024 [id number] 3 ABE CHARLEE A 2022 [place] [facility] FINASTERIDE 5MG TAB TAKE ONE TABLET BY MOUTH EVERY DAY FOR PROSTATE ORALLY DISCONT INUED 07/13/2023 [id number] 3 CHARLEE FISH 2021 [facility] FISH OIL 1000MG (500MG DHA/EPA) CAP,ORAL TAKE 1 CAPSULE BY MOUTH TWICE A DAY ORALLY ACTIVE JEFF CHOUDHARY CY Bowers 2006 [facility] INSULIN,GLA RGINE,HUMAN 100 UNIT/ML INJ,SOLOSTA R,3ML INJECT 22 UNITS UNDER THE SKIN AT BEDTIME FOR DIABETES SUBCUT ANEOUS DISCONT INUED (EDIT) 09/30/2023 [id number] 3 NAIDL,TOD D 2022 [facility] INSULIN,GLA RGINE,HUMAN 100 UNIT/ML INJ,SOLOSTA R,3ML INJECT 24 UNITS UNDER THE SKIN AT BEDTIME FOR DIABETES SUBCUT ANEOUS DISCONT INUED (EDIT) 07/15/2023 [id number] 3 NAIDL,TOD D 2022 [facility] INSULIN,GLA RGINE-YFGN 100UNIT/ML INJ PEN,3ML INJECT 22 UNITS UNDER THE SKIN AT BEDTIME FOR DIABETES SUBCUT ANEOUS ACTIVE 01/07/2024 [id number] 3 NAIDL,TOD D 2022 [facility] INSULIN,GLA RGINE-YFGN 100UNIT/ML INJ PEN,3ML INJECT 20 UNITS UNDER THE SKIN AT BEDTIME FOR DIABETES SUBCUT ANEOUS DISCONT INUED (EDIT) 12/08/2023 [id number] 3 NAIDL,TOD D 2022 [facility] INSULIN,GLA RGINE-YFGN 100UNIT/ML INJ PEN,3ML INJECT 18 UNITS UNDER THE SKIN AT BEDTIME FOR DIABETES SUBCUT ANEOUS DISCONT INUED (EDIT) 11/08/2023 [id number] 3 NAIDL,TOD D 2022 [facility] LIDOCAINE 4% CREAM,TOP APPLY MODERATE AMOUNT TOPICALL Y THREE TIMES A DAY FOR PAIN TOPICA LLY ACTIVE 03/22/2024 [id number] 3 CHARLEE FISH 2022 [facility] MAGNESIUM OXIDE 400MG TAB TAKE ONE TABLET BY MOUTH EVERY DAY ORALLY ACTIVE CHARLEE FISH 2022 [facility] MENTHOL/MET HYL SALICYLATE (10-15%) LOW CONC. CREAM,TOP APPLY THIN LAYER TOPICALL Y THREE TIMES A DAY FOR MUSCLE PAIN TOPICA LLY ACTIVE 03/22/2024 [id number] 3 CHARLEE FISH 2022 [facility] METFORMIN HCL 1000MG TAB TAKE ONE TABLET BY MOUTH TWICE A DAY FOR DIABETES ORALLY ACTIVE 04/11/2024 [id number] 3 CHARLEE FISH 2022 [facility] METFORMIN HCL 1000MG TAB TAKE ONE TABLET BY MOUTH TWICE A DAY FOR DIABETES ORALLY DISCONT INUED 07/15/2023 [id number] 3 NAIDL,TOD D 2022 [facility] MICONAZOLE NITRATE 2% CREAM,TOP APPLY THIN LAYER TOPICALL Y TWICE A DAY NEEDED FOR RASH TOPICA LLY DISCONT INUED 06/19/2023 [id number] 2 CHARLEE FISH 2021 [facility] OMEPRAZOLE 20MG CAP,EC TAKE ONE CAPSULE BY MOUTH EVERY DAY ON AN EMPTY STOMACH, AT LEAST 30 MINUTES PRIOR TO A MEAL FOR GERD ORALLY ACTIVE 03/22/2024 [id number] 3 CHARLEE FISH 2022 [facility] OMEPRAZOLE 20MG CAP,EC TAKE ONE CAPSULE BY MOUTH EVERY DAY ON AN EMPTY STOMACH, AT LEAST 30 MINUTES PRIOR TO A MEAL FOR GERD ORALLY DISCONT INUED 07/15/2023 [id number] 2 NAIDL,TOD D 2021 [facility] SEMAGLUTIDE 0.5MG/0.375 ML INJ,SOLN,PE N,1.5ML INJECT 0.5MG UNDER THE SKIN EVERY WEEK FOR DIABETES SUBCUT ANEOUS DISCONT INUED (EDIT) 07/15/2023 [id number] 3 NAIDL,TOD D 2022 [facility] SEMAGLUTIDE 1MG/0.75ML INJ,SOLN,PE N,3ML INJECT 1MG UNDER THE SKIN EVERY WEEK FOR DIABETES SUBCUT ANEOUS ACTIVE 11/08/2023 [id number] 4 NALIANNATOD D 2022 [facility] TAMSULOSIN HCL 0.4MG CAP TAKE ONE CAPSULE BY MOUTH EVERY EVENING ORALLY ACTIVE 04/13/2024 [id number] 3 CHARLEE FISH A 2022 [facility] TAMSULOSIN HCL 0.4MG CAP TAKE ONE CAPSULE BY MOUTH EVERY EVENING ORALLY DISCONT INUED 04/11/2024 [id number] 3 CHARLEE FISH A 2022 [facility] TAMSULOSIN HCL 0.4MG CAP TAKE ONE CAPSULE BY MOUTH EVERY EVENING ORALLY DISCONT INUED 08/04/2023 [id number] 3 FISHCHARLEE Bowers A 2022 [facility] TAMSULOSIN HCL 0.4MG CAP TAKE ONE CAPSULE BY MOUTH EVERY MORNING ORALLY 07/18/2022 [id number] 2 CHARLEE FISH A 2021 [facility] TURMERIC CAP/TAB TAKE 500 MG BY MOUTH TWICE A DAY ORALLY ACTIVE MATTY POWERS 2018 [facility] Allergies, Adverse Reactions, Alerts Combined list of allergies from Department of Defense and Veterans Affairs facilities. It does not include entries that were removed or entered in error. Substance Category Reaction Severity Reaction type Status Date Reported Comments Source VANCOMYCIN Propensity to adverse reactions to drug (finding) [place] active 8 [facility] Immunizations Combined list of available immunizations from the Department of Defense and Veterans Affairs facilities. Immunization Series Date Given Administered By Site Reaction Lot Number CVX Code Drug Audiology Director Status Comments Source ZOSTER RECOMBINANT 2 2019 187 complet ed [facility] INFLUENZA, INJECTABLE, QUADRIVALENT, PRESERVATIVE FREE 2019 150 complet ed [facility] ZOSTER RECOMBINANT 1 2019 187 complet ed [facility] INFLUENZA, HIGH-DOSE, QUADRIVALENT 2019 197 complet ed [facility] INFLUENZA, SEASONAL, INJECTABLE, PRESERVATIVE FREE 2017 140 complet ed [facility] INFLUENZA, INJECTABLE, QUADRIVALENT, PRESERVATIVE FREE 2017 150 complet ed [facility] INFLUENZA, INJECTABLE, QUADRIVALENT, PRESERVATIVE FREE 2015 150 complet ed [facility] TDAP 2015 115 complet ed [place] TA PNEUMOCOCCAL CONJUGATE PCV 13 2015 133 complet ed [facility] TD (ADULT), 5 LF TETANUS TOXOID, PRESERVATIVE FREE, ADSORBED 2015 113 complet ed [facility] INFLUENZA, INJECTABLE, QUADRIVALENT, PRESERVATIVE FREE 2013 150 complet ed [facility] PNEUMOCOCCAL POLYSACCHARID E PPV23 2010 33 complet [facility] INFLUENZA, UNSPECIFIED FORMULATION 2006 88 complet [facility] PNEUMOCOCCAL, UNSPECIFIED FORMULATION 2006 109 complet [facility] TD(ADULT) UNSPECIFIED FORMULATION 2006 NONE 139 complet ed [facility] TETANUS TOXOID, UNSPECIFIED FORMULATION 2006 NONE 112 complet [facility] Results Combined list of recent chemistry, hematology and other laboratory results from Department of Defense and Veterans Affairs, ranging from 15 months to all on record, depending upon the facility. Order Name Results Value Reference Range Date Interpretation Specimen Comments Source HEMOGLOBI N A1C HEMOGLOBIN A1C/HEMOGLO BIN.TOTAL IN BLOOD 7.1 4.0 - 6.0 03/22 H Specimen Type: BLOOD Comment: Values obtained from A1C measurement s can vary. For typical A1C assays, a reported value of 7.0 could actually be between 6.7 and 7.3 if measured by a reference method. A reported value of 9.0 could actually be between 8.7 and 9.3. Ref: [email or web address]://www. [email or web address].org/[place] Pdata.asp Ordering Provider: ME LEEROY FISH Report Released Date/Time: Aug 21, 2022 03:48 PM Reporting Lab: [facility] [address] Performing Lab: [facility] [address] [facility] BASIC METABOLIC PANEL+MG CREATININE [MASS/VOLUM E] IN SERUM OR PLASMA 1.2 0.7 - 1.2 03/22 Specimen Type: PLASMA No comment entered. Ordering Provider: ME LEEROY FISH Report Released Date/Time: Aug 21, 2022 03:48 PM Reporting Lab: [facility] [address] Performing Lab: [facility] [address] [place] [facility] BASIC METABOLIC PANEL+MG UREA NITROGEN [MASS/VOLUM E] IN SERUM OR PLASMA 15 8 - 26 03/22 Specimen Type: PLASMA No comment entered. Ordering Provider: ME LEEROY FISH Report Released Date/Time: Aug 21, 2022 03:48 PM Reporting Lab: [facility] [address] Performing Lab: [facility] [address] [place] [facility] BASIC METABOLIC PANEL+MG GLUCOSE [MASS/VOLUM E] IN SERUM OR PLASMA 145 70 - 100 03/22 H Specimen Type: PLASMA No comment entered. Ordering Provider: ME LEEROY FISH Report Released Date/Time: Aug 21, 2022 03:48 PM Reporting Lab: [facility] [address] Performing Lab: [facility] [phone] [place] [facility] BASIC METABOLIC PANEL+MG SODIUM [MOLES/VOLU ME] IN SERUM OR PLASMA 138 136 - 145 03/22 Specimen Type: PLASMA No comment entered. Ordering Provider: ME LEEROY FISH Report Released Date/Time: Aug 21, 2022 03:48 PM Reporting Lab: [facility] [address] Performing Lab: [facility] [address] [place] [facility] BASIC METABOLIC PANEL+MG POTASSIUM [MOLES/VOLU ME] IN SERUM OR PLASMA 4.5 3.5 - 5.1 03/22 Specimen Type: PLASMA No comment entered. Ordering Provider: ME LEEROY FISH Report Released Date/Time: Aug 21, 2022 03:48 PM Reporting Lab: [facility] [address] Performing Lab: [facility] [address] [place] [facility] BASIC METABOLIC PANEL+MG CHLORIDE [MOLES/VOLU ME] IN SERUM OR PLASMA 101 98 - 107 03/22 Specimen Type: PLASMA No comment entered. Ordering Provider: ME LEEROY FISH Report Released Date/Time: Aug 21, 2022 03:48 PM Reporting Lab: [facility] [address] Performing Lab: [facility] [address] [place] [facility] BASIC METABOLIC PANEL+MG CARBON DIOXIDE, TOTAL [MOLES/VOLU ME] IN SERUM OR PLASMA 27 - 03/22 Specimen Type: PLASMA No comment entered. Ordering Provider: ME LEEROY FISH Report Released Date/Time: Aug 21, 2022 03:48 PM Reporting Lab: [facility] [phone] Performing Lab: [facility] [address] [place] [facility] BASIC METABOLIC PANEL+MG CALCIUM [MASS/VOLUM E] IN SERUM OR PLASMA 10.0 8.4 - 10.2 03/22 Specimen Type: PLASMA No comment entered. Ordering Provider: ME LEEROY FISH Report Released Date/Time: Aug 21, 2022 03:48 PM Reporting Lab: [facility] [address] Performing Lab: [facility] [address] [place] [facility] BASIC METABOLIC PANEL+MG MAGNESIUM [MASS/VOLUM E] IN SERUM OR PLASMA 1.9 1.6 - 2.6 03/22 Specimen Type: PLASMA No comment entered. Ordering Provider: ME LEEROY FISH Report Released Date/Time: Aug 21, 2022 03:48 PM Reporting Lab: [facility] [address] Performing Lab: [facility] [address] [place] [facility] BASIC METABOLIC PANEL+MG ANION GAP IN SERUM OR PLASMA 10 5 - 15 03/22 Specimen Type: PLASMA No comment entered. Ordering Provider: ME LEEROY FISH Report Released Date/Time: Aug 21, 2022 03:48 PM Reporting Lab: [facility] [address] Performing Lab: [facility] [address] [place] [facility] BASIC METABOLIC PANEL+MG GLOMERULAR FILTRATION RATE/1.73 SQ M.PREDICTED [VOLUME RATE/AREA] IN SERUM, PLASMA OR BLOOD BY CREATININE- BASED FORMULA (CKD-EPI 2020) 63 60 03/22 Specimen Type: PLASMA No comment entered. Ordering Provider: ME LEEROY FISH Report Released Date/Time: Aug 21, 2022 03:48 PM Reporting Lab: [facility] [address] Performing Lab: [facility] [address] [place] [facility] HEMOGLOBI N A1C HEMOGLOBIN A1C/HEMOGLO BIN.TOTAL IN BLOOD 6.8 4.0 - 6.0 08/18 H Specimen Type: BLOOD Comment: Values obtained from A1C measurement s can vary. For typical A1C assays, a reported value of 7.0 could actually be between 6.7 and 7.3 if measured by a reference method. A reported value of 9.0 could actually be between 8.7 and 9.3. Ref: http://www. ngsp.org/[place] Pdata.asp Ordering Provider: ME LEEROY FISH Report Released Date/Time: December 22, 2021 03:46 PM Reporting Lab: [facility] [address] Performing Lab: [facility] [address] [place] [facility] BASIC METABOLIC PANEL+MG CREATININE [MASS/VOLUM E] IN SERUM OR PLASMA 0.9 0.7 - 1.2 08/18 Specimen Type: PLASMA No comment entered. Ordering Provider: ME LEEROY FISH Report Released Date/Time: December 22, 2021 03:46 PM Reporting Lab: [facility] [phone] Performing Lab: [facility] [address] [place] [facility] BASIC METABOLIC PANEL+MG UREA NITROGEN [MASS/VOLUM E] IN SERUM OR PLASMA 12 8 - 26 08/18 Specimen Type: PLASMA No comment entered. Ordering Provider: ME LEEROY FISH Report Released Date/Time: December 22, 2021 03:46 PM Reporting Lab: [facility] [address] Performing Lab: [facility] [address] [place] [facility] BASIC METABOLIC PANEL+MG GLUCOSE [MASS/VOLUM E] IN SERUM OR PLASMA 184 70 - 100 08/18 H Specimen Type: PLASMA No comment entered. Ordering Provider: ME LEEROY FISH Report Released Date/Time: December 22, 2021 03:46 PM Reporting Lab: [facility] [phone] Performing Lab: [facility] [address] [place] [facility] BASIC METABOLIC PANEL+MG SODIUM [MOLES/VOLU ME] IN SERUM OR PLASMA 137 136 - 145 08/18 Specimen Type: PLASMA No comment entered. Ordering Provider: ME LEEROY FISH Report Released Date/Time: December 22, 2021 03:46 PM Reporting Lab: [facility] [address] Performing Lab: [facility] [address] [place] [facility] BASIC METABOLIC PANEL+MG POTASSIUM [MOLES/VOLU ME] IN SERUM OR PLASMA 3.9 3.5 - 5.1 08/18 Specimen Type: PLASMA No comment entered. Ordering Provider: ME LEEROY FISH Report Released Date/Time: December 22, 2021 03:46 PM Reporting Lab: [facility] [address] Performing Lab: [facility] [address] [place] [facility] BASIC METABOLIC PANEL+MG CHLORIDE [MOLES/VOLU ME] IN SERUM OR PLASMA 102 98 - 107 08/18 Specimen Type: PLASMA No comment entered. Ordering Provider: ME LEEROY FISH Report Released Date/Time: December 22, 2021 03:46 PM Reporting Lab: [facility] [address] Performing Lab: [facility] [address] [place] [facility] BASIC METABOLIC PANEL+MG CARBON DIOXIDE, TOTAL [MOLES/VOLU ME] IN SERUM OR PLASMA 26 22 - 29 08/18 Specimen Type: PLASMA No comment entered. Ordering Provider: ME LEEROY FISH Report Released Date/Time: December 22, 2021 03:46 PM Reporting Lab: [facility] [address] Performing Lab: [facility] [address] [place] [facility] BASIC METABOLIC PANEL+MG CALCIUM [MASS/VOLUM E] IN SERUM OR PLASMA 9.4 8.4 - 10.2 08/18 Specimen Type: PLASMA No comment entered. Ordering Provider: ME LEEROY FISH Report Released Date/Time: December 22, 2021 03:46 PM Reporting Lab: [facility] [address] Performing Lab: [facility] [address] [place] [facility] BASIC METABOLIC PANEL+MG MAGNESIUM [MASS/VOLUM E] IN SERUM OR PLASMA 1.6 1.6 - 2.6 08/18 Specimen Type: PLASMA No comment entered. Ordering Provider: ME LEEROY FISH Report Released Date/Time: December 22, 2021 03:46 PM Reporting Lab: [facility] [address] Performing Lab: [facility] [address] [place] [facility] BASIC METABOLIC PANEL+MG ANION GAP IN SERUM OR PLASMA 9 5 - 15 08/18 Specimen Type: PLASMA No comment entered. Ordering Provider: ME LEEROY FISH Report Released Date/Time: December 22, 2021 03:46 PM Reporting Lab: [facility] [address] Performing Lab: [facility] [address] [place] [facility] BASIC METABOLIC PANEL+MG GLOMERULAR FILTRATION RATE/1.73 SQ M.PREDICTED [VOLUME RATE/AREA] IN SERUM, PLASMA OR BLOOD BY CREATININE- BASED FORMULA (CKD-EPI) 89 60 08/18 Specimen Type: PLASMA No comment entered. Ordering Provider: ME LEEROY FISH Report Released Date/Time: December 22, 2021 03:46 PM Reporting Lab: [facility] [address] Performing Lab: [facility] [address] [place] [facility] HEMOGLOBI N A1C HEMOGLOBIN A1C/HEMOGLO BIN.TOTAL IN BLOOD 8.2 4.0 - 6.0 12/22 H Specimen Type: BLOOD No comment entered. Ordering Provider: ME LEEROY FISH Report Released Date/Time: Aug 03, 2021 01:53 PM Reporting Lab: [facility] [address] Performing Lab: [facility] [address] [place] [facility] BASIC METABOLIC PANEL+MG CREATININE [MASS/VOLUM E] IN SERUM OR PLASMA 1.1 0.7 - 1.2 12/22 Specimen Type: PLASMA No comment entered. Ordering Provider: ME LEEROY FISH Report Released Date/Time: Aug 03, 2021 01:53 PM Reporting Lab: [facility] [address] Performing Lab: [facility] [address] [place] [facility] BASIC METABOLIC PANEL+MG UREA NITROGEN [MASS/VOLUM E] IN SERUM OR PLASMA 15 8 - 26 12/22 Specimen Type: PLASMA No comment entered. Ordering Provider: ME LEEROY FISH Report Released Date/Time: Aug 03, 2021 01:53 PM Reporting Lab: [facility] [address] Performing Lab: [facility] [address] [place] [facility] BASIC METABOLIC PANEL+MG GLUCOSE [MASS/VOLUM E] IN SERUM OR PLASMA 174 74 - 100 12/22 H Specimen Type: PLASMA No comment entered. Ordering Provider: ME LEEROY FISH Report Released Date/Time: Aug 03, 2021 01:53 PM Reporting Lab: [facility] [address] Performing Lab: [facility] [address] [place] [facility] BASIC METABOLIC PANEL+MG SODIUM [MOLES/VOLU ME] IN SERUM OR PLASMA 141 136 - 145 12/22 Specimen Type: PLASMA No comment entered. Ordering Provider: ME LEEROY FISH Report Released Date/Time: Aug 03, 2021 01:53 PM Reporting Lab: [facility] [phone] Performing Lab: [facility] [address] [place] [facility] BASIC METABOLIC PANEL+MG POTASSIUM [MOLES/VOLU ME] IN SERUM OR PLASMA 4.2 3.5 - 5.1 12/22 Specimen Type: PLASMA No comment entered. Ordering Provider: ME LEEROY FISH Report Released Date/Time: Aug 03, 2021 01:53 PM Reporting Lab: [facility] [address] Performing Lab: [facility] [address] [place] [facility] BASIC METABOLIC PANEL+MG CHLORIDE [MOLES/VOLU ME] IN SERUM OR PLASMA 101 98 - 107 12/22 Specimen Type: PLASMA No comment entered. Ordering Provider: ME LEEROY FISH Report Released Date/Time: Aug 03, 2021 01:53 PM Reporting Lab: [facility] [address] Performing Lab: [facility] [address] [place] [facility] BASIC METABOLIC PANEL+MG CARBON DIOXIDE, TOTAL [MOLES/VOLU ME] IN SERUM OR PLASMA 30 22 - 29 12/22 H Specimen Type: PLASMA No comment entered. Ordering Provider: ME LEEROY FISH Report Released Date/Time: Aug 03, 2021 01:53 PM Reporting Lab: [facility] [address] Performing Lab: [facility] [address] [place] [facility] BASIC METABOLIC PANEL+MG CALCIUM [MASS/VOLUM E] IN SERUM OR PLASMA 10.1 8.4 - 10.2 12/22 Specimen Type: PLASMA No comment entered. Ordering Provider: ME LEEROY FISH Report Released Date/Time: Aug 03, 2021 01:53 PM Reporting Lab: [facility] [address] Performing Lab: [facility] [address] [place] [facility] BASIC METABOLIC PANEL+MG MAGNESIUM [MASS/VOLUM E] IN SERUM OR PLASMA 1.8 1.6 - 2.6 12/22 Specimen Type: PLASMA No comment entered. Ordering Provider: ME LEEROY FISH Report Released Date/Time: Aug 03, 2021 01:53 PM Reporting Lab: [facility] [address] Performing Lab: [facility] [address] [place] [facility] BASIC METABOLIC PANEL+MG ANION GAP IN SERUM OR PLASMA 10 5 - 15 12/22 Specimen Type: PLASMA No comment entered. Ordering Provider: ME LEEROY FISH Report Released Date/Time: Aug 03, 2021 01:53 PM Reporting Lab: [facility] [address] Performing Lab: [facility] [address] [facility] BASIC METABOLIC PAN[facility]+MG CREAT EGFR(CKD-EP I) 70 60 12/22 Specimen Type: PLASMA No comment entered. Ordering Provider: ME LEEROY FISH Report Released Date/Time: Aug 03, 2021 01:53 PM Reporting Lab: [facility] [id number] Performing Lab: [facility] [id number] [facility] Vital Signs Combined list of inpatient and outpatient Vital Signs from Department of Defense and Veterans Affairs, ranging from 12 months to all on record, depending upon the facility. Vital Sign Value Date Comments Source SYSTOLIC BLOOD PRESSURE 108 03/22/2023 14:13:04 [facility] DIASTOLIC BLOOD PRESSURE 77 03/22/2023 14:13:04 [facility] [facility] OXIMETRY 95% 03/22/2023 14:13:04 [facility] 221 03/22/2023 14:13:04 [facility] BMI 31kg/m2 03/22/2023 14:13:04 [facility] PAIN 0 03/22/2023 14:13:04 [facility] HEIGHT 71 03/22/2023 14:13:04 [facility] TEMPERATURE 97.5 03/22/2023 14:13:04 [facility] PULSE 110 03/22/2023 14:13:04 [facility] RESPIRATION 18 03/22/2023 14:13:04 [facility] Encounters Combined list of: 1) 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 2) Encounters from the Department of Defense facilities going back up to 280 months. Location Location Details Encounter Type Encounter Number Reason For Visit Attending Provider ADM Date DC Date Status Disposition Source [facility] PRO PHONE CALL 11-20 MIN [id number] Diagnos is: ICD-10- CM E11.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
NAIDL,KARI 03/09 [place] [facility] [place] [facility] PRO PHONE CALL 11-20 MIN [id number] Diagnos is: ICD-10- CM E11.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
NAIDL,KARI 04/25 [facility] Outpatient Encounter [id number] 04/30 [facility] [place] [facility] Outpatient Encounter [id number] 05/11 [facility] [place] [employer] [facility] [place] [facility] Outpatient Encounter [id number] SA RA Ana RODRIGUEZ 05/13 [facility] [employer] [facility] [place] [facility] Outpatient Encounter [id number] 05/19 [facility] [place] [facility] Outpatient Encounter [id number] 05/23 [facility] [employer] [facility] [place] [facility] Outpatient Encounter [id number] 05/25 [facility] [employer] [facility] [place] [facility] Outpatient Encounter [id number] 05/27 [facility] [employer] [facility] [place] [facility] Outpatient Encounter [id number] 05/30 [place] [facility] [place] [facility] Outpatient Encounter [id number] 06/06 [facility] [employer] [facility] [place] [facility] Outpatient Encounter [id number] 06/14 [facility] [employer] [facility] [place] [facility] Outpatient Encounter [id number] 06/16 [facility] [employer] [facility] [place] [facility] Outpatient Encounter [id number] SA ERICK RODRIGUEZ R 06/18 [place] [facility] [place] [facility] Outpatient Encounter [id number] STACYLOUISKimberly 07/12 [place] [facility] [place] [facility] PRO PHONE CALL 11-20 MIN [id number] Diagnos is: ICD-10- CM E11.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
NAIDL,KARI 07/14 [place] [place] [facility] Outpatient Encounter [id number] SATINDER SMITH TY W 07/21 [place] [facility] [place] [facility] OFFICE O/P EST MOD 30-39 MIN [id number] Diagnos is: ICD-10- CM E11.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
Rhiannon FISH A 08/18 [place] [facility] [place] [facility] Outpatient Encounter [id number] 08/21 [place] [facility] [place] [facility] PRO PHONE CALL 11-20 MIN [id number] Diagnos is: ICD-10- CM E11.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
NAIDL,KARI 08/29 [place] [facility] [place] [facility] PRO PHONE CALL 11-20 MIN [id number] Diagnos is: ICD-10- CM E11.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
NAIDL,KARI 09/29 [place] [facility] [place] [facility] PRO PHONE CALL 21-30 MIN [id number] Diagnos is: ICD-10- CM E11.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
NAIDL,KARI 11/07 [facility] PRO PHONE CALL 11-20 MIN [id number] Diagnos is: ICD-10- CM E11.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
NAIDL,KARI 12/07 [facility] Outpatient Encounter [id number] Diagnos is: ICD-10- CM Z77.29 Contact with and exposur e to other [facility]<br/ > JEANINE,JESSICA [facility] J 12/[address] [facility] Outpatient Encounter [id number] Diagnos is: ICD-10- CM Z77.29 Contact with and exposur e to other [facility]<br/ > JEANINE,MATH [facility] J 12/27 [facility] PRO PHONE CALL 11-20 MIN [id number] Diagnos is: ICD-10- CM E11.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
NAIDL,KARI 01/06 [facility] Outpatient Encounter [id number] 03/10 [facility] PRO PHONE CALL 11-20 MIN [id number] Diagnos is: ICD-10- CM E11.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
NAIDL,KARI 03/14 [facility] OFFICE O/P EST LOW 20-29 MIN [id number] Diagnos is: ICD-10- CM E11.621 Type 2 diabete s mellitu s with foot ulcer<b r/> Rhiannon FISH 03/22 [facility] PRO PHONE CALL 21-30 MIN [id number] Diagnos is: ICD-10- CM E11.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
NAIDL,KARI 04/18 [facility] PRO PHONE CALL 21-30 MIN [id number] Diagnos is: ICD-10- CM E11.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
NAIDL,KARI 07/11 [facility] Social History Combined list of available smoking, tobacco, and other social history from Department of Defense and Veterans Affairs facilities. Social History Type Response Date Comment Sourc e Tobacco smoking status NHIS OR-TOBACCO FOR[facility] History of tobacco use OR-TOBACCO QUIT 1 5 YRS OR MORE 08/18/2022 [facility] History of tobacco use OR-TOBACCO QUIT 1 5 YRS OR MORE 05/03/2021 [facility] History of tobacco use OR-TOBACCO FORMER USER 04/21/2020 [facility] History of tobacco use FORMER TOBACCO US E >1Y <7Y 04/03/2018 [facility] History of tobacco use CURRENT TOBACCO USER 03/09/2007 [facility] Plan of Care List of future care activities from Department of Veterans Affairs facilities. Additional future care activities may be listed in the Assessment and Plan section. Date/Time Care Activity Care Activity Detail Facili ty 08/29/2023 AMBULATORY - NONE AMBULATORY - NONE [facility] Advance Directives List of completed, amended, or rescinded Advance Directives on record at Department of [facility] Affairs facilities. An actual copy of the Directive is not included. Date Advance Directive Provider Source 06/22/2021 ADVANCE DIRECTIVE DISCUSSION ALLYSON GRAF [facility] 06/22/2021 ADVANCE DIRECTIVE ALLYSON GRAF [facility] [employer] [facility] 03[facility]09[facility]ANCE [facility]IVE [facility]
--- OUTSIDE RECORDS SUMMARY | 2023-08-29 09:21 | XMS_ITS | Referral Summary ---
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 MILL OPERATOR Pulse 90 06/26/2018 5:58 PM JIG MILL OPERATOR Temperature 36.6 ??C (97.8 ??F) 06/26/2018 5:58 PM CS T Respiratory Rate 18 06/26/2018 5:58 PM JIG MILL OPERATOR Oxygen Saturation 95% 06/26/2018 7:00 PM JIG MILL OPERATOR Inhaled Oxygen Concentration - - Weight 112 kg (247 lb) 06/26/2018 5:58 PM JIG MILL OPERATOR Height 180.3 cm (5' 11) 06/26/2018 5:58 PM JIG MILL OPERATOR Body Mass Index 34.45 06/26/2018 5:58 PM JIG MILL OPERATOR Plan of Treatment Not on file Care Teams Senior Web Engineer Relationship Specialty Start Date End Date Post, Dave Wakefield PCP - General Internal Medicine 06/26/18
--- OUTSIDE RECORDS SUMMARY | 2023-08-29 09:21 | XMS_ITS | Encounter Summary ---
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 Organization [facility] Address [address] [place] [address] Support Name Relationship Address Phone DOROTHY DUONG Next of Kin Unknown DOROTHY DUONG Emergency Contact Unknown [phone] Insurance Providers: All historical and current Section [...] MEDIC ARE SUPPL EMENT Jul 31, 2018 [id number] [phone] [place] ALEX PATIENT [place] SU[place] MED[place] ARE SUPPL EMENT Jul 31, 2018 [id number] [phone] [place] A[place] [facility] (WNR) MEDICARE ADVANTAGE [facility] (WNR) Jul 31, 2017 [id number] [phone] REN[place] ALEX PATIENT [place] SUPP[place] MEDIC ARE SUPPL EMENT Jul 31, 2018 [id number] [phone] [place] A[place]IENT [place] MEDIC ARE SUPPL EMENT Jul 31, 2018 [id number] [phone] RODNEYBRITTNEYKANE ALEX PATIENT MEDICARE (WNR) MEDICARE (M) PART A May 31, 2011 PART A [id number] [phone] BETOKANE JOHNSON PATIENT MEDICARE (WNR) MEDICARE (M) PART B May 31, 2011 PART B [id number] [phone] KANE PÉREZ PATIENT Selected Encounter This section includes the information on record at [facility] for the Encounter. Date/Time Encounter Type Encounter Description Reason Provider Source Nov 07, 2022 11:30 AM PRO PHONE CALL 21-30 MIN TELEPHONE PRIMARY CARE ICD-10-CM E11.42 Type 2 diabetes mellitus with diabetic polyneuropathy KARI BRITO [facility] Encounter Template Text not used by [facility] Assessments - Encounter Diagnoses This section includes the primary and secondary diagnoses documented for the Encounter. Date/Time Primary/Secondary Diagnosis Diagnosis Name Provider Source Nov 07, 2022 11:30 AM PRIMARY Type 2 diabetes mellitus with diabetic polyneuropathy KARI BRITO [facility] Plan of Treatment: Future Appointments (+ 6 months) and Future Tests (+/- 45 days) The Plan of Treatment section includes future care activities for the patient from all [place] treatmentfacilities. This section includes future appointments and future orders which are active, pending or scheduled. Future Appointments This section includes appointments that were scheduled to occur 6 months from the date of the Encounter, up to a maximum of 20 appointments. The data comes from all [place] treatment facilities. Appointment Date/Time Appointment Type Appointme nt Facility Name December 05, 2022 07:01 AM [facility] [place] N[place] [facility] December 07, 2022 11:30 AM [facility] December 27, 2022 09:30 AM [facility] MEDICINE [facility] Jan 06, 2023 11:30 AM [facility] Mar 14, 2023 03:30 PM [facility] Mar 22, 2023 01:45 PM [facility] [place] [facility] Mar 22, 2023 02:45 [facility] Apr 18, 2023 03:30 [facility] Social History: Smoking Status (Most current) and Tobacco Use (All prior to encounter date) This section includes the most current, and the historical, smoking and tobacco- related health factors from the [facility] facility where the Encounter took place. Current Smoking Status This section includes the most current smoking, or tobacco-related health factor, from the [facility] facility where the Encounter took place. Date/Time Current Smoking Status Comment Facil ity Aug 18, 2022 08:30 AM VA-TOBACCO FORMER USER [facility] Tobacco Use History This section includes a history of the smoking, or tobacco-related health factors, that were collected on or before the date of the Encounter. The data comes from the [place] facility where the Encounter took place. Date/Time Smoking Status/Tobacco Use Comment F acility Aug 18, 2022 08:30 AM VA-TOBACCO QUIT 15 YRS OR MORE [facility] May 03, 2021 08:00 AM VA-TOBACCO FORMER USER [facility] May 03, 2021 08:00 AM VA-TOBACCO QUIT 15 YRS OR MORE [facility] Apr 21, 2020 09:00 AM VA-TOBACCO FORMER USER [facility] Apr 21, 2020 09:00 AM [place]-TOBACCO QUIT 15 YRS OR MORE [facility] Apr 03, 2018 03:16 PM FORMER TOBACCO USE >1Y <7Y [facility] Mar 09, 2007 10:41 AM CURRENT TOBACCO USER [facility] Advance Directives: All historical and current Section Date Range: From patient's date of to the date document was created. This section includes ALL of a patient's completed or amended [place] Advance and Rescinded Directives. The entries below indicate that a directive exists for the patient, but an actual copy is not included with this document. The data comes from all [facility]. Date Advance Directives Provider Source Jun 22, 2021 ADVANCE DIRECTIVE DISCUSSION ALLYSON GRAF [facility] Jun 22, 2021 ADVANCE DIRECTIVE ALLYSON GRAF [facility] Mar 09, 2007 ADVANCE DIRECTIVE SOLEDAD WOLFF [facility] Encounter Notes: All associated encounter notes This section contains the clinical notes associated to the Encounter. Date/Time Encounter Note(s) Provider Source Nov 07, 2022 11:27 AM PHARMACY NOTE: LOCAL TITLE: PHARMACOTHERAPY-CLINICAL PHARMACY NOTE STANDARD TITLE: PHARMACY NOTE DATE OF NOTE: NOV 07, 2022@11:27 ENTRY DATE: NOV 07, 2022@11:27:32 AUTHOR: KARI BRITO COSIGNER: URGENCY: STATUS: COMPLETED BACKGROUND: BETOMIGUELINA is a 77 YO MALE contacted by phone for medication management, mainly for DM. PMH is significant for T2DM with chronic foot infections, GERD, and HLD. SUBJECTIVE: In brief, continues to follow with urology locally for ongoing issues and remains with an indwelling catheter. Notes his foot wound opened up again, but is now healing back up. He is interested in increasing semaglutide, as he feels the benefits are waning some. He is not sure if he is gaining weight, but does note appetite is up slightly. 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 Due to his foot infection, he uses a wheelchair and walker. ROS: (+) hypoglycemia symptoms --> Paxton low with the 73. Usually has symptoms, but did not have any with that occasion. No contributors that he could recall. (-) hyperglycemia symptoms SMBG Readings: Date Morning (fastings) 9 145/ 4/8 121/ 4/7 96/ 4/6 101/ 4/5 106/ 4/4 110/ 4/3 119/ 4/2 107/ 4/1 106/ / 95/ /30 110/ /29 138/ 3/28 159/ /27 93/ 10/23 89/ 10/22 91/ 10/21 104/ / 118/ /22 150/ 3/21 105/ /20 96/ 19 73/ /18 173/ 3/16 146/ 3/15 141/ [address]: 116 Home BP Readings: Reports 115-130s/75-80s at home. [...] 3) INSULIN,GLARGINE 100 UNT/ML 3ML SOLOSTAR INJECT 22 confirmed UNITS UNDER THE SKIN AT BEDTIME [...] UNDER THE SKIN EVERY WEEK FOR DIABETES *qSUN 7) TAMSULOSIN HCL 0.4MG CAP TAKE ONE CAPSULE BY MOUTH ACTIVE EVERY EVENING Non-VA Medications Status ======= 1) [...] below goal. Current SMBG values are acceptable. Reasonable to increase semaglutide, with a decrease on his lantus to minimize risk of lows. PLAN: Medications: -Reduce insulin glargine to 18 units qhs and [place] [facility] [place]. -reduce by 2 units every 4 days targeting blood sugars in the 100-150s PRN. -Continue metformin 1000mg BID -Increase semaglutide to 1 mg once weekly Monitoring: -Check BG once daily, varying times #Disease-Specific Med Rec: Completed today #Labs: up to date - Educated vet on indication/risks/benefits of new/changed medication. - Education provided on therapeutic nonpharmacologic management to achieve goals. - Vet advised of recent labs. - Morris verbalized understanding to all plans discussed today. Questions were answered to vet's satisfaction. Time spent: 20 minutes RTC: -phone 12/07 prefers to avoid [facility]-only has a cellphone /toby/ KARI BRITO PHARM D, [facility] PHARMACIST Signed: 11/07/2022 12:54 KARI BRITO [facility]
--- OUTSIDE RECORDS SUMMARY | 2023-08-29 09:22 | XMS_ITS | Encounter Summary ---
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 Affairs Organization [facility] of [facility] Affairs Address [address] [place] [address] Support Name Relationship Address Phone DOROTHY DUONG [...] MEDIC ARE SUPPL EMENT Jul 31, 2018 [id number] [phone] RODNEYBRITTNEYKANE ALEX PATIENT [place] MED[place] SUPPLE[place] MED[place] ARE SUPPL EMENT Jul 31, 2018 [id number] [phone] RODNEYBRITTNEYKANE [place] [facility] (WNR) MEDICARE ADVANTAGE [facility] (WNR) Jul 31, 2017 [id number] [phone] RENBRITTNEYKANE ALEX PATIENT [place] MED[place] SUPPLEMEN [place] MEDIC ARE SUPPL EMENT Jul 31, 2018 [id number] [phone] RENBRITTNEYKANE ALEX PATIENT [place] MED[place] SUPPLEMEN [place] MEDIC ARE SUPPL EMENT Jul 31, 2018 [id number] [phone] RODNEYBRITTNEYKANE ALEX PATIENT MEDICARE (WNR) MEDICARE (M) PART A May 31, 2011 PART A [id number] [phone] BETOKANE JOHNSON PATIENT MEDICARE (WNR) MEDICARE (M) PART B May 31, 2011 PART B [id number] [phone] KANE PÉREZ PATIENT Selected Encounter This section includes the information on record at [place] for the Encounter. Date/Time Encounter Type Encounter Description Reason Provider Source Jul 11, 2023 03:30 PM HC PRO PHONE CALL 21-30 MIN TELEPHONE PRIMARY CARE ICD-10-CM E11.42 Type 2 diabetes mellitus with diabetic polyneuropathy KARI BRITO [facility] Encounter Template Text not used by [place] Assessments - Encounter Diagnoses This section includes the primary and secondary diagnoses documented for the Encounter. Date/Time Primary/Secondary Diagnosis Diagnosis Name Provider Source Jul 11, 2023 03:30 PM PRIMARY Type 2 diabetes mellitus with diabetic polyneuropathy KARI BRITO [facility] Plan of Treatment: Future Appointments (+ 6 [...] Date/Time Appointment Type Appointme nt Facility Name Aug 29, 2023 03:30 PM AMBULATORY - NONE [facility] Social History: Smoking Status (Most current) [...] Diego peng Aug 18, 2022 08:30 AM [place]-TOBAC[place] QU[place] 15 YRS OR MORE [facility] Tobacco Use History This section includes a history of the smoking, or tobacco-related health factors, that were collected on or before the date of the Encounter. The data comes from the [place] facility where the Encounter took place. Date/Time Smoking Status/Tobacco Use Comment F acsamir Aug 18, 2022 08:30 AM [place] 15 YRS OR MORE [facility] May 03, 2021 08:00 AM [place]-TOBACCO FORMER USER [facility] May 03, 2021 08:00 AM [place] 15 YRS OR MORE [facility] Apr 21, 2020 09:00 AM [place]-TOBACCO FORMER USER [facility] Apr 21, 2020 09:00 AM [place] 15 YRS OR MORE [facility] Apr 03, 2018 03:16 PM FORMER TOBACCO USE >1Y <7Y [facility] Mar 09, 2007 10:41 AM CURRENT TOBACCO USER [facility] Advance Directives: All historical and current Section Date Range: From patient's date of to the date document was created. This section includes ALL of a patient's completed or amended [place] Advance and Rescinded Directives. The entries below indicate that a directive exists for the patient, but an actual copy is not included with this document. The data comes from all [place] facilities. Date Advance Directives Provider Source Jun 22, 2021 ADVANCE DIRECTIVE DISCUSSION ALLYSON GRAF [facility] Jun 22, 2021 ADVANCE DIRECTIVE ALLYSON GRAF [facility] Mar 09, 2007 ADVANCE DIRECTIVE SOLEDAD WOLFF [facility] Encounter Notes: All associated encounter notes This section contains the clinical notes associated to the Encounter. Date/Time Encounter Note(s) Provider Source Jul 11, 2023 03:04 PM PHARMACY NOTE: LOCAL TITLE: PHARMACOTHERAPY-CLINICAL PHARMACY NOTE STANDARD TITLE: PHARMACY NOTE DATE OF NOTE: JUL 11, 2023@15:04 ENTRY DATE: JUL 11, 2023@15:04:36 AUTHOR: KARI BRITO EXP COSIGNER: URGENCY: STATUS: COMPLETED BACKGROUND: MIGUELINA PÉREZ is a 78 YO MALE contacted by phone for medication management, mainly for DM. PMH is significant for T2DM with chronic foot infections, GERD, and HLD. SUBJECTIVE: In brief, reports doing reasonably well. Notes he recently had a foot procedure last week to assist with his chronic foot wound/healing--he is optimistic that it will be helpful, but it is still too soon to tell. Notes blood sugars bumped a bit with the recent foot procedure, but are back to baseline now. Has been tolerating semaglutide well, as long as he watches his portion sizes, otherwise notes mild nausea. In general, remains pleased with his readings. 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 Would like to use his e-bike, but unfortunately is unable to currently. Notes energy levels are low. ROS: (-) hypoglycemia symptoms --> Denies. Usually has symptoms. We have reviewed the rule of 15s. (-) hyperglycemia symptoms SMBG Readings: AM 07/11 140/ /11 121/ 10 136/ 07/08 125/ 08 145/ 07 135/ 06 165/ 05 170/ 04 149/ 03 147/ 07/01 123/ 06/30 117/ ave: 139 ------Previous Reasdings-------- Mar f/u ave:124 Aug f/u ave: 138 Home BP Readings: Reports 120s/80s 90s at home. Did not have actual readings. Nurse checks 3x weekly. Adherence to medications: Manages independently. Denies any issues with missed doses. OBJECTIVE: ALLERGIES/ADR: VANCOMYCIN (Apr 27, 2018) Outpatient Medications Status ======= 1) ACCU-CHEK GUIDE (GLUCOSE) TEST STRIP USE 1 STRIP ACTIVE TWICE A DAY TO CHECK BLOOD SUGAR--USE WITHIN 3 MINUTES OF REMOVING FROM CONTAINER 2) ATORVASTATIN CALCIUM 40MG TAB TAKE ONE TABLET BY ACTIVE MOUTH EVERY DAY FOR CHOLESTEROL 3) DICLOFENAC NA 1% TOP GEL APPLY 4 GRAMS TOPICALLY FOUR ACTIVE TIMES A DAY NEEDED FOR JOINT PAIN 4) FINASTERIDE 5MG TAB TAKE ONE TABLET BY MOUTH EVERY ACTIVE DAY FOR PROSTATE 5) INSULIN,GLARGINE-YFGN 100UNIT/ML PEN 3ML INJECT 20 CONFIRMED UNITS UNDER THE SKIN AT BEDTIME FOR DIABETES 6) LIDOCAINE 4% TOP CREAM APPLY MODERATE AMOUNT ACTIVE TOPICALLY THREE TIMES A DAY FOR PAIN 7) MENTHOL/M-SALICYLATE 10-15% TOP CREAM APPLY THIN ACTIVE LAYER TOPICALLY THREE TIMES A DAY FOR MUSCLE PAIN 8) METFORMIN HCL 1000MG TAB TAKE ONE TABLET BY MOUTH CONFIRMED TWICE A DAY FOR DIABETES 9) OMEPRAZOLE 20MG EC CAP TAKE ONE CAPSULE BY MOUTH ACTIVE EVERY DAY ON AN EMPTY STOMACH, AT LEAST 30 MINUTES PRIOR TO A MEAL FOR GERD 10) SEMAGLUTIDE 1MG/0.75ML INJ PEN 3ML INJECT 1MG UNDER CONFIRMED THE SKIN EVERY WEEK FOR DIABETES 11) TAMSULOSIN HCL 0.4MG CAP TAKE ONE CAPSULE [...] 500 MG MOUTH TWICE A DAY ACTIVE 19 Total Medications Previous DM Medications: -Empa-->took for a couple years. Feels it was not effective. Also, has chronic uro issues. Vitals: Temperature: 97.5 F [36.4 C] (03/22/2023 14:13) Blood Pressure: 108/77 (03/22/2023 14:13) Pulse: 110 (03/22/2023 14:13) Respiration: 18 (03/22/2023 14:13) Pain: 0 (03/22/2023 14:13) Pulse Oximetry: 95% (03/22/2023 14:13) Weight-Last 3: Measurement DT WEIGHT LB(KG)[BMI] 03/22/2023 14:13 221(100.24)[31*] 08/18/2022 08:26 Unavailable 12/22/2021 13:51 235(106.59)[33*] LABS: SMA7: Na: SODIUM 138 (03/22/23) K: POTASSIUM 4.5 (03/22/23) Cl: CHLORIDE 101 (03/22/23) CO2: CO2 27 (03/22/23) BUN: UREA NITROGEN 15 (03/22/23) Creatinine: CREATININE 1.2 (03/22/23) Glucose: GLUCOSE 145 H (03/22/23) Collection DT Specimen Test Name Result Units [...] >60 Ref: >=60 Collection DT Spec HGBA1C 03/22/2023 7.1 H 08/18/2022 07:31 BLOOD 6.8 H 12/22/2021 14:31 [...] <210) per VA/DoD guidelines. Last A1c was stable and at goal. Recently reported SMBG values are acceptable. He is denying any concerns regarding hypoglycemia. Encouraged checking some post-prandials to clarify trends. Reasonable to continue the present regimen in the meantime. PLAN: Medications: -NO changes--continue the present regimen Monitoring: -Check BG once daily, varying times #Disease-Specific Med Rec: Completed today #Labs: Declines rechecking for now--will attempt to consolidate with other visits - Educated vet on indication/risks/benefits of new/changed medication. - Education provided on therapeutic nonpharmacologic management to achieve goals. - Vet advised of recent labs. - [place] verbalized understanding to all plans discussed today. Questions were answered to vet's satisfaction. Time spent: 25 minutes RTC: -08/29 pharmD phone prefers to avoid [facility]-only has a cellphone /toby/ KARI BRITO PHARM D, BCPS Clinical Pharmacist Practitioner-[facility] Signed: 07/12/2023 12:59 KARI BRITO [facility]
--- OUTSIDE RECORDS SUMMARY | 2023-08-29 09:22 | XMS_ITS | Encounter Summary ---
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 Affairs Organization Department of Vetera ns Affairs Address [address] [place] [address] Support Name Relationship Address Phone RHODA DOROTHY Next of Kin Unknown [phone] DOROTHY DUONG Emergency Contact Unknown [phone] Insurance Providers: All historical and current Section [...] MEDIC ARE SUPPL EMENT Jul 31, 2018 [id number] RODNEYBRITTNEYKANE ALEX PATIENT [place] MED[place] ARE SUPPL EMENT Jul 31, 2018 [id number] [phone] BETOKANE JOHNSON [place] [facility] ([place]NR) MEDICARE ADVANTAGE [facility] (WNR) Jul 31, 2017 [id number] [phone] BETOKANE JOHNSON PATIENT [place] MED[place] SUPPLEMEN [place] MEDIC ARE SUPPL EMENT Jul 31, 2018 [id number] BETOKANE HOFFMANNN PATIENT [place] MED[place] ARE SUPPL EMENT Jul 31, 2018 [id number] [phone] KANE PÉREZN PATIENT MEDICARE (WNR) MEDICARE (M) PART A May 31, 2011 PART A [id number] [phone] KANE PÉREZ PATIENT MEDICARE (WNR) MEDICARE (M) PART B May 31, 2011 PART B [id number] [phone] KANE PÉREZ PATIENT Selected Encounter This section includes the information on record at [place] for the Encounter. Date/Time Encounter Type Encounter Description Reason Pro vider Source Mar 10, 2023 02:47 PM Outpatient Encounter TELEPHONE TRIAGE IHE Encounter Template Text not used by [place] Plan of Treatment: Future Appointments (+ 6 months) and Future Tests (+/- 45 days) The Plan of Treatment section includes future care activities for the patient from all [place] treatmentfacilities. This section includes future appointments and future orders which are active, pending or scheduled. Future Appointments This section includes appointments that were scheduled to occur 6 months from the date of the Encounter, up to a maximum of 20 appointments. The data comes from all [place] treatment facilities. Appointment Date/Time Appointment Type Appointme nt Facility Name Mar 14, 2023 03:30 PM AMBULATORY - MEDICINE [facility] Mar 22, 2023 01:45 PM AMBULATORY - NONE [facility] Mar 22, 2023 02:45 PM AMBULATORY - MEDICINE [facility] Apr 18, 2023 03:30 PM AMBULATORY - NONE [facility] Jul 11, 2023 03:30 PM AMBULATORY - NONE [facility] Aug 29, 2023 03:30 PM AMBULATORY - NONE [facility] Lab Results: +/- 30 days of the encounter This section includes the Chemistry and Hematology Lab Results on record with [place] for the patient. Radiology Reports and Pathology Reports are provided separately, in subsequent sections. Lab Results This section contains the Chemistry/Hematology Results that were resulted 30 days before or 30 daysafter the date of the Encounter. Date/Time Source Result Type Result - Unit Interpretation Reference Range Comment Mar 22, 2023 01:57 PM [facility] HEMOGLOBIN A1C Specimen Type: BLOOD Comment: Values obtained from A1C measurements can vary. For typical A1C assays, a reported value of 7.0 could actually be between 6.7 and 7.3 if measured by a reference method. A reported value of 9.0 could actually be between 8.7 and 9.3. Ref: http://www.ngs p.org/CAPdata. asp Ordering Provider: FISH,MELOD Y A Report Released Date/Time: Aug 21, 2022 03:48 PM Reporting Lab: [facility] [id number] Performing Lab: [facility] [id number] HEMOGLOBIN A1C 7.1 H 4.0-6.0 Mar 22, 2023 01:57 PM [facility] BASIC METABOLIC PANEL+MG Specimen Type: PLASMA No comment entered. Ordering Provider: SOSA FISH Report Released Date/Time: Aug 21, 2022 03:48 PM Reporting Lab: [facility] [id number] Performing Lab: [facility] [id number] CREATININE 1.2 0.7-1.2 UREA NITROGEN 15 8-26 GLUCOSE 145 H 70-100 SODIUM 138 136-145 POTASSIUM 4.5 3.5-5.1 CHLORIDE 101 98-107 CO2 27 22-29 CALCIUM 10.0 8.4-10.2 MAGNESIUM 1.9 1.6-2.6 ANION GAP 10 5-15 .CREAT EGFR(CKD-EPI ) 63 >60 Social History: Smoking Status (Most current) and Tobacco Use (All prior to encounter date) This section includes the most current, and the historical, smoking and tobacco- related health factors from the [place] facility where the Encounter took place. Current Smoking Status This section includes the most current smoking, or tobacco-related health factor, from the [place] facility where the Encounter took place. Date/Time Current Smoking Status Comment Facil ity Aug 18, 2022 08:30 AM VA-TOBACCO FORMER USER [facility] Tobacco Use History This section includes a history of the smoking, or tobacco-related health factors, that were collected on or before the date of the Encounter. The data comes from the [place] facility where the Encounter took place. Date/Time Smoking Status/Tobacco Use Comment F acility Aug 18, 2022 08:30 AM [place]-TOBACCO QUIT 15 YRS OR MORE [facility] May 03, 2021 08:00 AM VA-TOBACCO FORMER USER [facility] May 03, 2021 08:00 AM VA-TOBACCO QUIT 15 YRS OR MORE [facility] Apr 21, 2020 09:00 AM VA-TOBACCO FORMER USER [facility] Apr 21, 2020 09:00 AM VA-TOBACCO QUIT 15 YRS OR MORE [facility] Apr 03, 2018 03:16 PM FORMER TOBACCO USE >1Y <7Y [facility] Mar 09, 2007 10:41 AM CURRENT TOBACCO USER [facility] Advance Directives: All historical and current Section Date Range: From patient's date of to the date document was created. This section includes ALL of a patient's completed or amended [place] Advance and Rescinded Directives. The entries below indicate that a directive exists for the patient, but an actual copy is not included with this document. The data comes from all [place] facilities. Date Advance Directives Provider Source Jun 22, 2021 ADVANCE DIRECTIVE DISCUSSION ALLYSON GRAF [facility] Jun 22, 2021 ADVANCE DIRECTIVE ALLYSON GRAF [facility] Mar 09, 2007 ADVANCE DIRECTIVE SOLEDAD WOLFF [facility] Encounter Notes: All associated encounter notes This section contains the clinical notes associated to the Encounter. Date/Time Encounter Note(s) Provider Source Mar 10, 2023 02:47 PM REPORT OF CONTACT: LOCAL TITLE: PATIENT CONTACT NOTE - PHARMACY STANDARD TITLE: REPORT OF CONTACT DATE OF NOTE: MAR 10, 2023@14:47 ENTRY DATE: MAR 10, 2023@14:47:38 AUTHOR: NANDA MANUEL EXP COSIGNER: URGENCY: STATUS: COMPLETED PATIENT CONTACT NOTE - PHARMACY Has ADDENDA Patient Contact Date & Time of Contact: Feb@14:47 Type of Contact: Telephone Comments: [place] called to check on status of SEMAGLUTIDE 1MG/0.75ML INJ PEN 3ML. The item is currently on manufactuter backorder. [place] takes his injections on Sundays. will not have a dose for this week. is wondering next steps. /petyon MANUEL v23 [facility] SPEEDER TENDER Signed: 03/10/2023 14:48 Receipt Acknowledged By: 03/10/2023 15:41 /peyton Cabrera PharmD, [facility] Clinical Pharmacist Practitioner for KARI BRITO 03/10/2023 ADDENDUM STATUS: COMPLETED Per review of CPRS, semaglutide was released today (03/10). Contacted vet to inform him. Vet thanked adjusto writer operator for the call. /peyton Cabrera PharmD, [facility] Clinical Pharmacist Practitioner Signed: 03/10/2023 15:41 NANDA MANUEL [facility]
--- OUTSIDE RECORDS SUMMARY | 2023-08-29 09:22 | XMS_ITS | Encounter Summary ---
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 Organization [facility] Address [address] [place] [address] Support Name Relationship Address Phone DOROTHY DUONG [...] MEDIC ARE SUPPL EMENT Jul 31, 2018 [id number] [phone] R[place]NEY[place] ALEX PATIENT [place] MED[place] SUPPLEMEN [place] MEDIC ARE SUPPL EMENT Jul 31, 2018 [id number] [phone] [place] A[place] PATIENT [place] [facility] (WNR) MEDICARE ADVANTAGE [facility] (WNR) Jul 31, 2017 [id number] [phone] RENBR[place] ALEX PATIENT [place] SUPPLEMEN [place] MEDIC ARE SUPPL EMENT Jul 31, 2018 [id number] [phone] REN[place] ALEX PATIENT [place] SUPP[place] MEDIC ARE SUPPL EMENT Jul 31, 2018 [id number] [phone] RODNEYBRITTNEYKANE ALEX PATIENT MEDICARE (WNR) MEDICARE (M) PART A May 31, 2011 PART A [id number] [phone] BETOKANE JOHNSON PATIENT MEDICARE (WNR) MEDICARE (M) PART B May 31, 2011 PART B [id number] [phone] KANE PÉREZ PATIENT Selected Encounter This section includes the information on record at [place] for the Encounter. Date/Time Encounter Type Encounter Description Reason Provider Source Jan 06, 2023 11:30 AM HC PRO PHONE CALL 11-20 MIN TELEPHONE PRIMARY CARE ICD-10-CM E11.42 Type 2 diabetes mellitus with diabetic polyneuropathy KARI BRITO [facility] Encounter Template Text not used by [place] Assessments - Encounter Diagnoses This section includes the primary and secondary diagnoses documented for the Encounter. Date/Time Primary/Secondary Diagnosis Diagnosis Name Provider Source Jan 06, 2023 11:30 AM PRIMARY Type 2 diabetes mellitus with diabetic polyneuropathy KARI BRITO [facility] Plan of Treatment: Future Appointments (+ 6 months) and Future Tests (+/- 45 days) The Plan of Treatment section includes future care activities for the patient from all [place] [facility] [place]. This section includes future appointments and future orders which are active, pending or scheduled. Future Appointments This section includes appointments that were scheduled to occur 6 months from the date of the Encounter, up to a maximum of 20 appointments. The data comes from all [place] treatment facilities. Appointment Date/Time Appointment Type Appointme nt Facility Name Mar 14, 2023 03:30 PM AMBULATORY - MEDICINE [facility] Mar 22, 2023 01:45 PM AMBULATORY - NONE [facility] Mar 22, 2023 02:45 PM AMBULATORY - MEDICINE [facility] Apr 18, 2023 03:30 PM AMBULATORY - NONE [facility] Social History: Smoking Status (Most current) and Tobacco Use (All prior to encounter date) This section includes the most current, and the historical, smoking and tobacco- related health factors from the [place] facility where the Encounter took place. Current Smoking Status This section includes the most current smoking, or tobacco-related health factor, from the [place] facility where the Encounter took place. Date/Time Current Smoking Status Quique peng Aug 18, 2022 08:30 AM MI-TOBACCO QUIT 15 YRS OR MORE [facility] Tobacco Use History This section includes a history of the smoking, or tobacco-related health factors, that were collected on or before the date of the Encounter. The data comes from the [place] facility where the Encounter took place. Date/Time Smoking Status/Tobacco Use Comment F acility Aug 18, 2022 08:30 AM VA-TOBACCO QUIT 15 YRS OR MORE [facility] May 03, 2021 08:00 AM VA-TOBACCO FORMER USER [facility] May 03, 2021 08:00 AM VA-TOBACCO QUIT 15 YRS OR MORE [facility] Apr 21, 2020 09:00 AM VA-TOBACCO FORMER USER [facility] Apr 21, 2020 09:00 AM VA-TOBACCO QUIT 15 YRS OR MORE [facility] Apr 03, 2018 03:16 PM FORMER TOBACCO USE >1Y <7Y [facility] Mar 09, 2007 10:41 AM CURRENT TOBACCO USER [facility] Advance Directives: All historical and current Section Date Range: From patient's date of to the date document was created. This section includes ALL of a patient's completed or amended [place] Advance and Rescinded Directives. The entries below indicate that a directive exists for the patient, but an actual copy is not included with this document. The data comes from all [facility]. Date Advance Directives Provider Source Jun 22, 2021 ADVANCE DIRECTIVE DISCUSSION ALLYSON GRAF [facility] Jun 22, 2021 ADVANCE DIRECTIVE ALLYSON GRAF [facility] Mar 09, 2007 ADVANCE DIRECTIVE SOLEDAD WOLFF [facility] Encounter Notes: All associated encounter notes This section contains the clinical notes associated to the Encounter. Date/Time Encounter Note(s) Provider Source Jan 06, 2023 11:11 AM PHARMACY NOTE: LOCAL TITLE: PHARMACOTHERAPY-CLINICAL PHARMACY NOTE STANDARD TITLE: PHARMACY NOTE DATE OF NOTE: JAN 06, 2023@11:11 ENTRY DATE: JAN 06, 2023@11:11:38 AUTHOR: KARI BRITO EXP COSIGNER: URGENCY: STATUS: COMPLETED PHARMACOTHERAPY-CLINICAL PHARMACY NOTE Has ADDENDA BACKGROUND: BETOMIGUELINA is a 77 YO MALE contacted by phone for medication management, mainly for DM. PMH is significant for T2DM with chronic foot infections, GERD, and HLD. SUBJECTIVE: In brief, reports readings have been up a bit recently and he increased his glargine to address. Unclear on contributors. Notes one episode of n/v/d recently, which he feels was related to semaglutide. He feels this was an isolated event and denies any issues prior or since. Notes ongoing issues with a foot wound and is seeing podiatry every other week. 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 Due to his foot infection, he uses a wheelchair and walker. He is hoping to use his e-bike soon. ROS: (-) hypoglycemia symptoms --> Denies. Usually has symptoms. We have reviewed the rule of 15s. (-) hyperglycemia symptoms SMBG Readings: He did not have his readings available, but is checking fastings on most days. Reports most are in the 140-170s (this was on 20 units of glargine). Previous Readings: October f/u ave: 116 Home BP Readings: Reports 120s/75-80s at home. Did not have actual readings. Nurse checks once weekly. Adherence to medications: Manages independently. Denies any issues with missed doses. OBJECTIVE: ALLERGIES/ADR: VANCOMYCIN (Apr 27, 2018) Outpatient Medications Status ======= 1) ATORVASTATIN CALCIUM 40MG TAB TAKE ONE TABLET BY ACTIVE MOUTH EVERY DAY FOR CHOLESTEROL 2) FINASTERIDE 5MG TAB TAKE ONE TABLET BY MOUTH EVERY ACTIVE DAY FOR PROSTATE 3) INSULIN,GLARGINE-YFGN 100UNIT/ML PEN 3ML INJECT 20 see text UNITS UNDER THE SKIN AT BEDTIME FOR DIABETES increased to 22 units qhs yesterday 4) METFORMIN HCL 1000MG TAB TAKE ONE TABLET BY MOUTH confirmed TWICE A DAY FOR DIABETES 5) OMEPRAZOLE 20MG EC CAP TAKE ONE CAPSULE BY MOUTH HOLD EVERY DAY ON AN EMPTY STOMACH, AT LEAST 30 MINUTES PRIOR TO A MEAL FOR GERD 6) SEMAGLUTIDE 1MG/0.75ML INJ PEN 3ML INJECT 1MG UNDER confirmed THE SKIN EVERY WEEK FOR DIABETES qweds 7) TAMSULOSIN HCL 0.4MG CAP TAKE ONE [...] ACTIVE 15 Total Medications Previous DM Medications: -Empa-->took for a couple years. Feels it was not effective. Also, has ongoing uro issues. Vitals: Temperature: 97 F [36.1 C] (08/18/2022 [...] A1c was down significantly and below goal. Sounds like fastings are up a bit--suggest a slight increase on his glargine. Vet will monitor for further GI SEs with semaglutide--encouraged smaller/more frequent meals. PLAN: Medications: -Continue glargine at 22 units qday -fine to adjust by 2 units every 3-4 days targeting fastings in the 100- 160 range. Monitoring: -Check BG once daily, varying times #Disease-Specific Med Rec: Completed today #Labs: Declines for now--will obtain with January PCP RTC - Educated vet on indication/risks/benefits of new/changed medication. - Education provided on therapeutic nonpharmacologic management to achieve goals. - Vet advised of recent labs. - verbalized understanding to all plans discussed today. Questions were answered to vet's satisfaction. Time spent: 15 minutes RTC: - 03/14 pharmTwyla phone prefers to avoid [facility]-only has a cellphone - January RTC with PCP /peyton BRITO PHARM D, [facility] PHARMACIST Signed: 01/06/2023 15:47 02/20/2023 ADDENDUM STATUS: COMPLETED vet identified on our hypoglycemia dashboard. will re-assess at our upcoming visit. /peyton BRITO, PHARM D, [facility] PHARMACIST Signed: 02/20/2023 08:52 KARI BRITO [facility]
--- OUTSIDE RECORDS SUMMARY | 2023-08-29 09:22 | XMS_ITS | Encounter Summary ---
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 Organization [facility] Address [address] [place] [address] Support Name Relationship Address Phone RHODA DOROTHY Next of Kin Unknown DOROTHY DUONG Emergency [...] MEDIC ARE SUPPL EMENT Jul 31, 2018 [id number] [phone] KANE PÉREZ ALEX PATIENT [place] SU[place] MED[place] ARE SUPPL EMENT Jul 31, 2018 [id number] [phone] RODNEYBRITTNEYKANEN [place]IENT [place] [facility] ([place]NR) MEDICARE ADVANTAGE [facility] (WNR) Jul 31, 2017 [id number] [phone] RENBRITTNEYKANEN PATIENT [place] SU[place] MEDIC ARE SUPPL EMENT Jul 31, 2018 [id number] [phone] RODNEYBRITTNEYKANE ALEX PATIENT [place] MEDIC ARE SUPPL EMENT Jul 31, 2018 [id number] [phone] RODNEYRBITTNEYKANEN PATIENT MEDICARE (WNR) MEDICARE (M) PART B May 31, 2011 PART B [id number] [phone] KANE PÉREZ PATIENT MEDICARE (WNR) MEDICARE (M) PART A May 31, 2011 PART A [id number] [phone] KANE PÉREZ PATIENT Selected Encounter This section includes the information on record at [place] for the Encounter. Date/Time Encounter Type Encounter Description Reason Provider Source Mar 22, 2023 02:45 PM OFFICE O/P EST LOW 20-29 MIN PRIMARY CARE/MEDICINE ICD-10-CM E11.621 Type 2 diabetes mellitus with foot ulcer SOSA FISH IHCandy Encounter Template Text not used by [place] Assessments - Encounter Diagnoses This section includes the primary and secondary diagnoses documented for the Encounter. 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 This section includes future appointments and future orders which are active, pending or scheduled. Future Appointments This section includes appointments that were scheduled to occur 6 months from the date of the Encounter, up to a maximum of 20 appointments. The data comes from all [place] treatment facilities. Appointment Date/Time Appointment Type Appointme nt Facility Name Apr 18, 2023 03:30 PM AMBULATORY - NONE [place] [facility] Jul 11, 2023 03:30 PM [facility] Aug 29, 2023 03:30 PM AMBULATORY - NONE [facility] Lab Results: +/- 30 days of the encounter This section includes the Chemistry and Hematology Lab Results on record with [place] for the patient. Radiology Reports and Pathology Reports are provided separately, in subsequent sections. Lab Results This section contains the Chemistry/Hematology Results that were resulted 30 days before or 30 daysafter the date of the Encounter. Date/Time Source Result Type Result - Unit Interpretation Reference Range Comment Mar 22, 2023 01:57 PM [facility] HEMOGLOBIN A1C Specimen Type: BLOOD [...] Aug 21, 2022 03:48 PM Reporting Lab: [facility] [id number] Performing Lab: [facility] [id number] HEMOGLOBIN A1C 7.1 H 4.0-6.0 Mar 22, 2023 01:57 PM [facility] BASIC METABOLIC PANEL+MG Specimen Type: PLASMA No comment entered. Ordering Provider: SOSA FISH Report Released Date/Time: Aug 21, 2022 03:48 PM Reporting Lab: [facility] [id number] Performing Lab: [facility] [id number] CREATININE 1.2 0.7-1.2 UREA NITROGEN 15 8-26 GLUCOSE 145 H 70-100 SODIUM 138 136-145 POTASSIUM 4.5 3.5-5.1 CHLORIDE 101 98-107 CO2 27 22-29 CALCIUM 10.0 8.4-10.2 MAGNESIUM 1.9 1.6-2.6 ANION GAP 10 5-15 .CREAT EGFR(CKD-EPI ) 63 >60 Vital Signs: All taken on the encounter date This section contains inpatient and outpatient Vital Signs collected on the date of the Encounter. Date/Time Temperature Pulse Blood Pressure Respiratory Rate SP02 Pain Height Weight Body Mass Index Source Mar 22, 2023 02:13 PM 97.5 F 110 /min 108/77 mm[Hg] 18 /min 95 % 0 71 in 221 lb 31 [facility] Social History: Smoking Status (Most current) and Tobacco Use (All prior to encounter date) This section includes the most current, and the historical, smoking and tobacco- related health factors from the [place] facility where the Encounter took place. Current Smoking Status This section includes the most current smoking, or tobacco-related health factor, from the [place] facility where the Encounter took place. Date/Time Current Smoking Status Comment Facil danish Aug 18, 2022 08:30 AM VA-TOBACCO FORMER USER [facility] Tobacco Use History This section includes a history of the smoking, or tobacco-related health factors, that were collected on or before the date of the Encounter. The data comes from the [place] facility where the Encounter took place. Date/Time Smoking Status/Tobacco Use Comment F acility Aug 18, 2022 08:30 AM VA-TOBACCO QUIT 15 YRS OR MORE [facility] May 03, 2021 08:00 AM VA-TOBACCO FORMER USER [facility] May 03, 2021 08:00 AM VA-TOBACCO QUIT 15 YRS OR MORE [facility] Apr 21, 2020 09:00 AM VA-TOBACCO FORMER USER [facility] Apr 21, 2020 09:00 AM VA-TOBACCO QUIT 15 YRS OR MORE [facility] Apr 03, 2018 03:16 PM FORMER TOBACCO USE >1Y <7Y [facility] Mar 09, 2007 10:41 AM CURRENT TOBACCO USER [facility] Advance Directives: All historical and current Section Date Range: From patient's date of to the date document was created. This section includes ALL of a patient's completed or amended [place] Advance and Rescinded Directives. The entries below indicate that a directive exists for the patient, but an actual copy is not included with this document. The data comes from all [place] facilities. Date Advance Directives Provider Source Jun 22, 2021 ADVANCE DIRECTIVE DISCUSSION ALLYSON GRAF [facility] Jun 22, 2021 ADVANCE DIRECTIVE ALLYSON GRAF [facility] Mar 09, 2007 ADVANCE DIRECTIVE [facility]EDAD WOLFF [facility] Encounter Notes: All associated encounter notes This section contains the clinical notes associated to the Encounter. Date/Time Encounter Note(s) Provider Source Mar 26, 2023 07:34 PM INTERNAL MEDICINE NOTE: LOCAL TITLE: MEDICINE CLINIC NOTE STANDARD TITLE: INTERNAL MEDICINE NOTE DATE OF NOTE: MAR 26, 2023@19:34 ENTRY DATE: MAR 26, 2023@19:35:05 AUTHOR: CHARLEE FISH COSIGNER: URGENCY: STATUS: COMPLETED MIGUELINA PÉREZ is a 77 year old MALE with the following Chief complaint:routine follow up, diabetes HPI/ROS:77 yo gentleman with diabetes at goal and h/o diabetic foot infection who presents for routine follow up. He was hospitalized twice last fall, with complicated stays both in the hospital, and in the rehab facility. He had a diabetic foot wound, and then had complications of sepsis and an infected shoulder and Covid pneumonia with hypoxia. Now, he says that his foot is now almost healed, after almost 9 months since he left the hospital. 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 He says he just now started driving for the first since last March, and felt that it went well. He now has full use of his shoulder (required surgical wash out due to septic joing, which was seeded from blood infection, also had epidural abscess, which was treated with antibiotics). He had a neurogenic bladder and required [facility], but is now able to urinate on his own, without catheter. He has been workign with the diabetes senior care assistant on medication management. He has been well controlled with the addition of semaglutide. Initially had some GI issues with semaglutide, which are now resolved. Active problems - Computerized Problem List is the source for the followin. Foot Pain - left 5th metatarsal fracture 2. Diabetes mellitus (SNOMED CT 09169356) 3. Hyperlipidemia (SNOMED CT 92884502) 4. Depressive Disorder NOS * 5. Tobacco user (SNOMED CT 143170438) 6. Personal History of Alcoholism 7. Other Iatrogenic Hypotension 8. Hyperuricemia 9. Osteopenia 10. History of amputation of lesser toe Allergies: VANCOMYCIN (Apr 27, 2018) Family/Social History: () Not applicable to today's visit. EXAM: VS: Temp: 97.5 F [36.4 C] (03/22/2023 14:13) BP: 108/77 (03/22/2023 14:13) Pulse:110 (03/22/2023 14:13) Resp: 18 (03/22/2023 14:13) Pain: 0 (03/22/2023 14:13) Weight: WEIGHTS IN LAST 6 MONTHS - NONE FOUND General Appearance:NAD, breathing comfortably Mental Status:A&Ox3, pleasant affect Neck: Chest/T Spine: Cardiac:RRR, no M/R/G JVP: Lungs:CTA B, no wheezes or crackles. Abdomen: Extremities:the wound on his R heel is almost healed. He showed me pictures, and it is very shallow, much smaller, and no sign of infection. Edema ()None ()1+ ()2+ ()3+ ()4+ Pulses ()ASSEMBLER BONDING ()1+ ()2+ ()3+ ()4+ Gait: in a wheel chair Data/Labs: reviewed,. A1c is 7.1 (X)Patient was informed of available lab, imaging, and other study results associated with today's visit. Assessment and Plan: 1. R heel diabetic wound. He is following with an outside machine precision engraver, and getting home wound care. The wound is now almost healed. 2. Diabets, well controlled, on current regimen, no changes. No hypoglycemia 3. Neurogenic bladder after prolonged hospitalization, now able urinate on his own. 4. R shoulder pain after septic joint with washout, now resolved, has near full use of his shoulder. 5. Hypertension, well controlled, no change. 6. Health maintenance reviewed, Advised that he is due for diabetic eye exam. f/u 6 months. (X) Patient/Caregiver indicates readiness to learn, verbalizes understanding, agreement and satisfaction with the treatment plan. Patient/Caregiver doesn't have any further questions today. Medication Reconciliation: Education Evaluations *Was medication education provided for NEW medications or CHANGES to medications? (including medication name, dose, route, reason for use, and potential side effects). No new medications or medication changes during this encounter. TERATOGENIC MED & CONTRACEPTION REVIEW (Optional)... ===== MEDICATION RECONCILIATION ===== Review Done: The medication list shown below was verified for accuracy and it includes all pending medications/active medications/all medications or discontinued within the last 90 days/all remote medications and non-VA medications. If a given category (i.e. remote meds) is not shown, that means that a patient doesn't have a medication(s) in that category. Allergies listed below were also reviewed/updated for accuracy. Allergies/ADR from [facility] may not display in CPRS. Use JLV MRT5 - Allergies/ADRs FACILITY ALLERGY/ADR -------- No Remote Allergy/ADR Data available for this patient [place] [facility] VANCOMYCIN Active and Recently Outpatient Medications (including Supplies): Issue Date Status Last Fill Active Outpatient Medications Refills Expiration 1) ACCU-CHEK GUIDE (GLUCOSE) TEST STRIP ACTIVE Issu:02-16-23 Qty: 100 for 50 days Sig: USE 1 STRIP Refills: 5 Last:02-16-23 TWICE A DAY TO CHECK BLOOD SUGAR--USE Expr:02-17-24 WITHIN 3 MINUTES OF REMOVING FROM CONTAINER 2) ATORVASTATIN CALCIUM 40MG TAB Qty: 90 ACTIVE Issu:07-14-22 for 90 days Sig: TAKE ONE TABLET BY Refills: 2 Last:12-21-22 MOUTH EVERY DAY FOR CHOLESTEROL Expr:07-15-23 3) DICLOFENAC NA 1% TOP GEL Qty: 100 for ACTIVE Issu:03-22-23 30 days Sig: APPLY 4 GRAMS TOPICALLY Refills: 3 Last:03-22-23 FOUR TIMES A DAY NEEDED FOR JOINT Expr:03-22-24 PAIN 4) FINASTERIDE 5MG TAB Qty: 90 for 90 days ACTIVE Issu:07-12-22 Sig: TAKE ONE TABLET BY MOUTH EVERY Refills: 1 Last:01-03-23 DAY FOR PROSTATE Expr:07-13-23 5) INSULIN,GLARGINE-YFGN 100UNIT/ML PEN 3ML ACTIVE Issu:01-06-23 Qty: 5 for 68 days Sig: INJECT 22 Refills: 3 Last:03-06-23 UNITS UNDER THE SKIN AT BEDTIME FOR Expr:01-07-24 DIABETES 6) LANCET,SOFTCLIX Qty: 200 for 90 days ACTIVE Issu:08-18-22 Sig: USE 1 LANCET TOPICALLY TWICE A Refills: 3 Last:08-19-22 DAY *DISPOSE OF IN A HARD-PLASTIC Expr:08-19-23 CONTAINER WITH A SCREW-ON LIDCONTACT GARBAGE HAULER FOR PROPER DISPOSAL 7) LIDOCAINE 4% TOP CREAM Qty: 30 for 30 ACTIVE Issu:03-22-23 days Sig: APPLY MODERATE AMOUNT Refills: 11 Last:03-22-23 TOPICALLY THREE TIMES A DAY FOR PAIN Expr:03-22-24 8) MENTHOL/M-SALICYLATE 10-15% TOP CREAM ACTIVE Issu:03-22-23 Qty: 90 for 90 days Sig: APPLY THIN Refills: 3 Last:03-22-23 LAYER TOPICALLY THREE TIMES A DAY FOR Expr:03-22-24 MUSCLE PAIN 9) METFORMIN HCL 1000MG TAB Qty: 180 for ACTIVE Issu:07-14-22 90 days Sig: TAKE ONE TABLET BY MOUTH Refills: 2 Last:12-07-22 TWICE A DAY FOR DIABETES Expr:07-15-23 10) NEEDLE,PEN 31G,5MM Qty: 100 for 90 days ACTIVE Issu:08-18-22 Sig: USE 1 NEEDLE DIRECTED *DISPOSE Refills: 2 Last:02-03-23 OF IN A HARD-PLASTIC CONTAINER WITH A Expr:08-19-23 SCREW-ON LID CONTACT GARBAGE HAULER FOR PROPER DISPOSAL 11) OMEPRAZOLE 20MG EC CAP Qty: 90 for 90 ACTIVE Issu:03-22-23 days Sig: TAKE ONE CAPSULE BY MOUTH Refills: 3 Last:03-22-23 EVERY DAY ON AN EMPTY STOMACH, AT Expr:03-22-24 LEAST 30 MINUTES PRIOR TO A MEAL FOR GERD 12) SEMAGLUTIDE 1MG/0.75ML INJ PEN 3ML Qty: ACTIVE Issu:11-07-22 1 for 28 days Sig: INJECT 1MG UNDER Refills: 8 Last:03-25-23 THE SKIN EVERY WEEK FOR DIABETES Expr:11-08-23 13) TAMSULOSIN HCL 0.4MG CAP Qty: 90 for 90 ACTIVE Issu:08-03-22 days Sig: TAKE ONE CAPSULE BY MOUTH Refills: 1 Last:01-21-23 EVERY EVENING Expr:08-04-23 Issue Date Status Last Fill Inactive Outpatient Medications Refills Expiration 1) ATORVASTATIN CALCIUM 80MG TAB Qty: 45 DISCONTINUED Issu:07-14-22 for 90 days Sig: TAKE ONE-HALF TABLET (EDIT) Last:07-14-22 BY MOUTH EVERY DAY FOR CHOLESTEROL Refills: 3 Expr:07-15-23 2) CYANOCOBALAMIN 1000MCG TAB Qty: 100 for DISCONTINUED Issu:02-21-22 90 days Sig: TAKE ONE TABLET BY MOUTH Refills: 3 Last:02-23-22 EVERY DAY Expr:02-22-23 3) INSULIN,GLARGINE 100 UNT/ML 3ML SOLOSTAR DISCONTINUED Issu:09-29-22 Qty: 5 for 60 days Sig: INJECT 22 (EDIT) Last:10-03-22 UNITS UNDER THE SKIN AT BEDTIME FOR Refills: 3 Expr:09-30-23 DIABETES 4) INSULIN,GLARGINE 100 UNT/ML 3ML SOLOSTAR DISCONTINUED Issu:07-14-22 Qty: 5 for 60 days Sig: INJECT 24 (EDIT) Last:08-29-22 UNITS UNDER THE SKIN AT BEDTIME FOR Refills: 3 Expr:07-15-23 DIABETES 5) INSULIN,GLARGINE 100 UNT/ML 3ML SOLOSTAR DISCONTINUED Issu:02-02-22 Qty: 5 for 50 days Sig: INJECT 28 (EDIT) Last:03-09-22 UNITS UNDER THE SKIN AT BEDTIME FOR Refills: 3 Expr:02-03-23 DIABETES 6) INSULIN,GLARGINE-YFGN 100UNIT/ML PEN 3ML DISCONTINUED Issu:12-07-22 Qty: 5 for 75 days Sig: INJECT 20 (EDIT) Last:01-06-23 UNITS UNDER THE SKIN AT BEDTIME FOR Refills: 3 Expr:12-08-23 DIABETES 7) INSULIN,GLARGINE-YFGN 100UNIT/ML PEN 3ML DISCONTINUED Issu:11-07-22 Qty: 5 for 83 days Sig: INJECT 18 (EDIT) Last:11-10-22 UNITS UNDER THE SKIN AT BEDTIME FOR Refills: 3 Expr:11-08-23 DIABETES 8) MICONAZOLE NITRATE 2% TOP CREAM Qty: 30 DISCONTINUED Issu:06-18-22 for 90 days Sig: APPLY THIN LAYER Refills: 3 Last:06-21-22 TOPICALLY TWICE A DAY NEEDED FOR Expr:06-19-23 RASH 9) OMEPRAZOLE 20MG EC CAP Qty: 90 for 90 DISCONTINUED Issu:07-14-22 days Sig: TAKE ONE CAPSULE BY MOUTH Refills: 3 Last:07-14-22 EVERY DAY ON AN EMPTY STOMACH, AT Expr:07-15-23 LEAST 30 MINUTES PRIOR TO A MEAL FOR GERD 10) SEMAGLUTIDE 0.5MG/0.375ML INJ PEN 1.5ML DISCONTINUED Issu:07-14-22 Qty: 1 for 28 days Sig: INJECT 0.5MG (EDIT) Last:09-29-22 UNDER THE SKIN EVERY WEEK FOR DIABETES Refills: 10 Expr:07-15-23 11) SEMAGLUTIDE 1MG/0.75ML INJ PEN 3ML Qty: DISCONTINUED Issu:02-02-22 2 for 56 days Sig: INJECT 1MG UNDER (EDIT) Last:04-18-22 THE SKIN EVERY WEEK Refills: 2 Expr:02-03-23 Start Date Active Non-VA Medications Refills Expiration 1) Non-VA ASCORBIC ACID 500MG TAB Sig: ACTIVE 500MG MOUTH TWICE A DAY 2) Non-VA ASPIRIN 81MG EC TAB Si MG ACTIVE MOUTH EVERY DAY 3) Non-VA CHOLECALCIFEROL TAB Si ACTIVE UNITS MOUTH EVERY DAY 4) Non-VA COENZYME Q10 100MG TAB/CAP Sig: ACTIVE 1 CAPSULE MOUTH EVERY DAY 5) Non-VA CYANOCOBALAMIN 1000MCG TAB Sig: ACTIVE 1000MCG MOUTH EVERY DAY 6) Non-VA FISH OIL 1000MG (500MG DHA/EPA) ACTIVE CAP Si GM MOUTH TWICE A DAY 7) Non-VA MAGNESIUM OXIDE 400MG TAB Sig: ACTIVE 400MG MOUTH EVERY DAY 8) Non-VA TURMERIC CAP/TAB Si MG ACTIVE MOUTH TWICE A DAY 32 Total Medications /es/ Charlee Fish MD Physician Signed: 03/26/2023 20:39 CHARLEE FISH [facility] Mar 22, 2023 02:15 PM INTERNAL MEDICINE OUTPATIENT NOTE: LOCAL TITLE: MEDICINE CLINIC NURSING NOTE STANDARD TITLE: INTERNAL MEDICINE OUTPATIENT NOTE DATE OF NOTE: MAR 22, 2023@14:15 ENTRY DATE: MAR 22, 2023@14:15:43 AUTHOR: HALLE ESCUDERO EXP COSIGNER: URGENCY: STATUS: COMPLETED TYPE OF VISIT: Appointment Check In Type of appointment: In-person appointment REASON FOR VISIT: Routine check up ALLERGIES: VANCOMYCIN (Apr 27, 2018) VITAL SIGNS: Blood Pressure: 108/77 (03/22/2023 14:13) Pulse: 110 (03/22/2023 14:13) Respiration: 18 (03/22/2023 14:13) Temperature: 97.5 F [36.4 C] (03/22/2023 14:13) Weight: 221 lb [100.24 kg] (03/22/2023 14:13) Height: 71 in [180.3 cm] (03/22/2023 14:13) BMI: 30.9 O2 Sat: 95% (03/22/2023 14:13) Pain: 0 (03/22/2023 14:13) PAIN SCREEN: Patient is not having significant pain that they wish to discuss with their provider today. MEDICATION Over the Counter/Herbal Medications: The patient states that they take some outside medications and/or herbals. PTSD Screening: PC-PTSD-5 A PTSD screening test (PC-PTSD-5) was negative (score=0). IN THE PAST MONTH, have you ever had any experience that was so frightening, horrible or traumatic. For example: A serious accident or fire a physical or sexual assault or abuse An earthquake or flood A war Seeing someone be killed or seriously injured Having a loved one through homicide or suicide Have you ever experienced this kind of event? NO 1. Had nightmares about the event(s) or thought about the event(s) when you did not want to? Response not required due to responses to other questions. 2. Tried hard not to think about the event(s) or went out of your way to avoid situations that reminded you of the event(s)? Response not required due to responses to other questions. 3. Been constantly on guard, watchful, or easily startled? Response not required due to responses to other questions. 4. [place] numb or detached from people, activities, or your surroundings? Response not required due to responses to other questions. 5. [place] guilty or unable to stop blaming yourself or others for the event(s) or any problems the event(s) may have caused? Response not required due to responses to other questions. Influenza Immunization: No influenza vaccination was received during the recent influenza season. Pneumococcal PPSV23 (Pneumovax): The patient declines to receive the recommended dose of PPSV23 vaccine. Immunization: PNEUMOCOCCAL POLYSACCHARIDE PPV23 Refusal Reason: PATIENT DECISION Patient refuses all immunization(s) in the PneumoPPV group Date Documented: 03/22/23 14:18 /toby/ HALLE ESCUDERO L.P.N MECHANICAL ENGINEER Signed: 03/22/2023 14:19 HALLE ESCUDERO [facility]
--- OUTSIDE RECORDS SUMMARY | 2023-08-29 09:22 | XMS_ITS | Encounter Summary ---
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 Affairs Organization [facility] Address [address] [place] [address] Support Name Relationship Address Phone DOROTHY DUONG Next of Kin Unknown DOROTHY DUONG Emergency Contact Unknown [phone] Insurance Providers: All historical and current Section [...] MEDIC ARE SUPPL EMENT Jul 31, 2018 [id number] RENBR[place] ALEX PATIENT [place] SU[place] MED[place] ARE SUPPL EMENT Jul 31, 2018 [id number] [phone] RODNEYBR[place]NEYKANE [place] [facility] ([place]NR) MEDICARE ADVANTAGE [facility] (WNR) Jul 31, 2017 [id number] [phone] [place] ALEX PATIENT [place] MED[place] SUPPLEMEN [place]OT MEDIC ARE SUPPL EMENT Jul 31, 2018 [id number] [phone] RENBRITTNEY,KANE ALEX PATIENT [place] MEDIC ARE SUPPL EMENT Jul 31, 2018 [id number] [phone] RENBRITTNEYKANE ALEX PATIENT MEDICARE (WNR) MEDICARE (M) PART A May 31, 2011 PART A [id number] [phone] RENKANE LUGO PATIENT MEDICARE (WNR) MEDICARE (M) PART B May 31, 2011 PART B [id number] [phone] KANE PÉREZ PATIENT Selected Encounter This section includes the information on record at [place] for the Encounter. Date/Time Encounter Type Encounter Description Reason Provider Source December 27, 2022 01:01 PM Outpatient Encounter TELEPHONE/MEDICIN E ICD-10-CM Z77.29 Contact with and exposure to other hazardous substances FADY SOLORZANO Candy Encounter Template Text not used by [place] Assessments - Encounter Diagnoses This section includes the primary and secondary diagnoses documented for the Encounter. Date/Time Primary/Secondary Diagnosis Diagnosis Name Provider Source December 27, 2022 01:01 PM PRIMARY Contact with and exposure to other hazardous substances [facility] Plan of Treatment: Future Appointments (+ 6 months) and Future Tests (+/- 45 days) The Plan of Treatment section includes future care activities for the patient from all [place] [facility]. This section includes future appointments and future orders which are active, pending or scheduled. Future Appointments This section includes appointments that were scheduled to occur 6 months from the date of the Encounter, up to a maximum of 20 appointments. The data comes from all [facility] facilities. Appointment Date/Time Appointment Type Appointme nt Facility Name Jan 06, 2023 11:30 AM AMBULATORY - MEDICINE [facility] Mar 14, 2023 03:30 PM AMBULATORY - MEDICINE [facility] Mar 22, 2023 01:45 PM AMBULATORY - NONE [facility] Mar 22, 2023 02:45 PM AMBULATORY - MEDICINE [facility] Apr 18, 2023 03:30 PM AMBULATORY - NONE [facility] Advance Directives: All historical and current Section Date Range: From patient's date of to the date document was created. This section includes ALL of a patient's completed or amended [place] Advance and Rescinded Directives. The entries below indicate that a directive exists for the patient, but an actual copy is not included with this document. The data comes from all [facility]. Date Advance Directives Provider Source Jun 22, 2021 ADVANCE DIRECTIVE DISCUSSION ALLYSON GRAF [facility] Jun 22, 2021 ADVANCE DIRECTIVE ALLYSON GRAF [facility] Mar 09, 2007 ADVANCE DIRECTIVE [place] U[facility] Ortiz [facility] Encounter Notes: All associated encounter notes This section contains the clinical notes associated to the Encounter. Date/Time Encounter Note(s) Provider Source December 27, 2022 01:01 PM REPORT OF CONTACT: LOCAL TITLE: PATIENT CONTACT NOTE STANDARD TITLE: REPORT OF CONTACT DATE OF NOTE: DECEMBER 27, 2022@13:01 ENTRY DATE: DECEMBER 27, 2022@13:01:31 AUTHOR: FADY SOLORZANO EXP COSIGNER: URGENCY: STATUS: COMPLETED Patient contact Name of [place]: MIGUELINA PÉREZ Name/Relationship of Contact if other than [place]: Date & Time of Contact: November@13:01 Type of Contact: Telephone Reason for Contact: toxic exposure screening Toxic Exposure Screening Follow-Up: [place]/caregiver has no health or medical concerns related to their concern of environmental exposure. [place] states that while he was statoned in [facility], he was exposed to petacides frequently (DDT). The following connections were provided to the /caregiver: [employer] (VBA) for Benefits/claims: [place] [employer]ization (VSO) https://www.macvso.org/fin d-a-cvso.html /toby/ FADY SOLORZANO Nurse Practitioner Signed: 12/27/2022 13:03 FADY SOLORZANO [facility]
--- OUTSIDE RECORDS SUMMARY | 2023-08-29 09:22 | XMS_ITS | Encounter Summary ---
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 Affairs Organization Department of Vetera ns Affairs Address [address] [place] [address] Support Name Relationship Address Phone DOROTHY DUONG [...] MEDIC ARE SUPPL EMENT Jul 31, 2018 [id number] [phone] [place]NEY[place] A[place] SUPPL EMENT Jul 31, 2018 [id number] [phone] [place] [facility] (WNR) MEDICARE ADVANTAGE [facility] (WNR) Jul 31, 2017 [id number] [phone] [place] A[place] MED[place] ARE SUPPL EMENT Jul 31, 2018 [id number] [phone] [place] A[place] MED[place] ARE SUPPL EMENT Jul 31, 2018 [id number] [phone] RODNEYBR[place]NEYK[place] ALEX PATIENT MEDICARE (WNR) MEDICARE (M) PART A May 31, 2011 PART A [id number] [phone] BETOJU ALEX PATIENT MEDICARE (WNR) MEDICARE (M) PART B May 31, 2011 PART B [id number] [phone] KANE PÉREZ PATIENT Selected Encounter This section includes the information on record at [place] for the Encounter. Date/Time Encounter Type Encounter Description Reason Provider Source Mar 14, 2023 03:30 PM PRO PHONE CALL 11-20 MIN TELEPHONE PRIMARY CARE ICD-10-CM E11.42 Type 2 diabetes mellitus with diabetic polyneuropathy KARI BRITO [facility] Encounter Template Text not used by [place] Assessments - Encounter Diagnoses This section includes the primary and secondary diagnoses documented for the Encounter. Date/Time Primary/Secondary Diagnosis Diagnosis Name Provider Source Mar 14, 2023 03:30 PM PRIMARY Type 2 diabetes mellitus with diabetic polyneuropathy KARI BRITO [facility] Plan of Treatment: Future Appointments (+ 6 months) and Future Tests (+/- 45 days) The Plan of Treatment section includes future care activities for the patient from all [place] treatmentfacilities. This section includes future appointments and future orders which are active, pending or scheduled. Future Appointments This section includes appointments that were scheduled to occur 6 months from the date of the Encounter, up to a maximum of 20 appointments. The data comes from all [place] treatment facilities. Appointment Date/Time Appointment Type Appointme nt Facility Name Mar 22, 2023 01:45 PM [facility] Mar 22, 2023 02:45 PM AMBULATORY - MEDICINE [facility] Apr 18, 2023 03:30 PM AMBULATORY - NONE [facility] Jul 11, 2023 03:30 PM [facility] Aug 29, 2023 03:30 PM AMBULATORY - NONE [facility] Lab Results: +/- 30 days of the encounter This section includes the Chemistry and Hematology Lab Results on record with NH for the patient. Radiology Reports and Pathology Reports are provided separately, in subsequent sections. Lab Results This section contains the Chemistry/Hematology Results that were resulted 30 days before or 30 daysafter the date of the Encounter. Date/Time Source Result Type Result - Unit Interpretation Reference Range Comment Mar 22, 2023 01:57 PM [facility] HEMOGLOBIN A1C Specimen Type: BLOOD Comment: [...] Aug 21, 2022 03:48 PM Reporting Lab: [facility] [id number] Performing Lab: [facility] [id number] HEMOGLOBIN A1C 7.1 H 4.0-6.0 Mar 22, 2023 01:57 PM [facility] BASIC METABOLIC PANEL+MG Specimen Type: PLASMA No comment entered. Ordering Provider: SOSA FISH Report Released Date/Time: Aug 21, 2022 03:48 PM Reporting Lab: [facility] [id number] Performing Lab: [facility] [id number] CREATININE 1.2 0.7-1.2 UREA NITROGEN 15 8-26 [...] and tobacco- related health factors from the [facility] where the Encounter took place. Current Smoking Status This section includes the most current smoking, or tobacco-related health factor, from the NH facility where the Encounter took place. Date/Time Current Smoking Status Comment Diego peng Aug 18, 2022 08:30 AM VA-TOBACCO FORMER USER [facility] Tobacco Use History This section includes a history of the smoking, or tobacco-related health factors, that were collected on or before the date of the Encounter. The data comes from the NH facility where the Encounter took place. Date/Time Smoking Status/Tobacco Use Comment Darline soriano Aug 18, 2022 08:30 AM VA-TOBACCO QUIT 15 YRS OR MORE [facility] May 03, 2021 08:00 AM VA-TOBACCO FORMER USER [facility] May 03, 2021 08:00 AM VA-TOBACCO QUIT 15 YRS OR MORE [facility] Apr 21, 2020 09:00 AM VA-TOBACCO FORMER USER [facility] Apr 21, 2020 09:00 AM NH-TOBACCO QUIT 15 YRS OR MORE [facility] Apr 03, 2018 03:16 PM FORMER TOBACCO USE >1Y <7Y [facility] Mar 09, 2007 10:41 AM CURRENT TOBACCO USER [facility] Advance Directives: All historical and current Section Date Range: From patient's date of to the date document was created. This section includes ALL of a patient's completed or amended [place] Advance and Rescinded Directives. The entries below indicate that a directive exists for the patient, but an actual copy is not included with this document. The data comes from all [place] facilities. Date Advance Directives Provider Source Jun 22, 2021 ADVANCE DIRECTIVE DISCUSSION ALLYSON GRAF [facility] Jun 22, 2021 ADVANCE DIRECTIVE ALLYSON GRAF [facility] Mar 09, 2007 ADVANCE DIRECT[address] W[facility] Encounter Notes: All associated encounter notes This section contains the clinical notes associated to the Encounter. Date/Time Encounter Note(s) Provider Source Mar 14, 2023 02:43 PM PHARMACY NOTE: LOCAL TITLE: PHARMACOTHERAPY-CLINICAL PHARMACY NOTE STANDARD TITLE: PHARMACY NOTE DATE OF NOTE: MAR 14, 2023@14:43 ENTRY DATE: MAR 14, 2023@14:43:52 AUTHOR: KARI BRITO COSIGNER: URGENCY: STATUS: COMPLETED BACKGROUND: RODNEYMIGUELINA LUGO is a 77 YO MALE contacted by phone for medication management, mainly for DM. PMH is significant for T2DM with chronic foot infections, GERD, and HLD. SUBJECTIVE: In brief, reports doing reasonably well. Previously noted some digestive issues from semaglutide, but reports this has resolved now. Notes ongoing issues with a foot wound and is seeing podiatry every other week, in addition to home wound cares. Notes it has been slowly improving, but not as quickly as hoped. 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 Would like to use his e-bike, but unfortunately is unable to currently ROS: (-) hypoglycemia symptoms --> Denies. Usually has symptoms. We have reviewed the rule of 15s. (-) hyperglycemia symptoms SMBG Readings: AM 03/14 149/ 14 100/ 13 105/ 12 153/ 11 111/ 10 162/ 03/08 123/ 08 182/ 07 184/ 06 137/ 05 113/ ave: 138 Home BP Readings: Reports 120s/80s [...] ACTIVE MOUTH EVERY DAY FOR CHOLESTEROL 3) FINASTERIDE 5MG TAB TAKE ONE TABLET BY MOUTH EVERY ACTIVE DAY FOR PROSTATE 4) INSULIN,GLARGINE-YFGN 100UNIT/ML PEN 3ML INJECT 20 confirmed UNITS UNDER THE SKIN AT BEDTIME FOR DIABETES 5) METFORMIN HCL 1000MG TAB TAKE ONE TABLET BY MOUTH confirmed TWICE A DAY FOR DIABETES 6) OMEPRAZOLE 20MG EC CAP TAKE ONE CAPSULE BY MOUTH HOLD EVERY DAY ON AN EMPTY STOMACH, AT LEAST 30 MINUTES PRIOR TO A MEAL FOR GERD 7) SEMAGLUTIDE 1MG/0.75ML INJ PEN 3ML INJECT 1MG UNDER confirmed THE SKIN EVERY WEEK FOR DIABETES 8) TAMSULOSIN HCL 0.4MG CAP TAKE ONE CAPSULE [...] 500 MG MOUTH TWICE A DAY ACTIVE 16 Total Medications Previous DM Medications: -Empa-->took for a couple years. Feels it was not effective. Also, has chronic uro issues. Vitals: Temperature: 97 F [36.1 [...] A1c was down significantly and below goal. Recently reported SMBG values are acceptable. He is denying any concerns regarding hypoglycemia. Encouraged checking some post-prandials to clarify trends. Reasonable to continue the present regimen in the meantime. PLAN: Medications: -NO changes--continue the present regimen Monitoring: -Check BG once daily, varying times #Disease-Specific Med Rec: Completed today #Labs: 03/22 a1c - Educated vet on indication/risks/benefits of new/changed medication. - Education provided on therapeutic nonpharmacologic management to achieve goals. - Vet advised of recent labs. - Coggon verbalized understanding to all plans discussed today. Questions were answered to vet's satisfaction. Time spent: 15 minutes RTC: -04/18 pharmD phone prefers to avoid [facility]-only has a cellphone Hypoglycemia Screen: In the past few months, how often did the patient/caregiver report that the patient had a low blood sugar? None reported Shared Patient Centered Plan: Patient/Caregiver does not wish to change glycemic management at this time. /toby/ KARI BRITO, PHARM D, BCPS PHARMACIST Signed: 03/14/2023 16:47 DARYL,KARI [facility]
--- OUTSIDE RECORDS SUMMARY | 2023-08-29 09:22 | XMS_ITS | Encounter Summary ---
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 Affairs Organization [facility] of [facility] Affairs Address [address] [place] [address] Support Name Relationship Address Phone DOROTHY DUONG Next of Kin Unknown [phone] DOROTHY DUONG Emergency Contact Unknown [phone] Insurance Providers: All historical and current Section [...] MEDIC ARE SUPPL EMENT Jul 31, 2018 [id number] RODNEYBR[place]NEYKANE ALEX PATIENT [place] MED[place] ARE SUPPL EMENT Jul 31, 2018 [id number] [phone] [place] [facility] (WNR) MEDICARE ADVANTAGE [facility] (WNR) Jul 31, 2017 [id number] [phone] RENBRITTNEYKANE ALEX PATIENT [place] SUPPLE[place] MEDIC ARE SUPPL EMENT Jul 31, 2018 [id number] [place]EN[place] A[place] MED[place] ARE SUPPL EMENT Jul 31, 2018 [id number] [phone] RODNEYBRITTNEYKANE ALEX PATIENT MEDICARE (WNR) MEDICARE (M) PART A May 31, 2011 PART A [id number] KANE PÉREZ PATIENT MEDICARE (WNR) MEDICARE (M) PART B May 31, 2011 PART B [id number] [phone] KANE PÉREZ PATIENT Selected Encounter This section includes the information on record at [place] for the Encounter. Date/Time Encounter Type Encounter Description Reason Provider Source Apr 18, 2023 03:30 PM PRO PHONE CALL 21-30 MIN TELEPHONE PRIMARY CARE ICD-10-CM E11.42 Type 2 diabetes mellitus with diabetic polyneuropathy KARI BRITO Encounter Template Text not used by [place] Assessments - Encounter Diagnoses This section includes the primary and secondary diagnoses documented for the Encounter. 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 This section includes future appointments and future orders which are active, pending or scheduled. Future Appointments This section includes appointments that were scheduled to occur 6 months from the date of the Encounter, up to a maximum of 20 appointments. The data comes from all [place] treatment facilities. Appointment Date/Time Appointment Type Appointme nt Facility Name Jul 11, 2023 03:30 PM AMBULATORY - NONE [facility] Aug 29, 2023 03:30 PM AMBULATORY - NONE [facility] Lab Results: +/- 30 days of the encounter This section includes the Chemistry and Hematology Lab Results on record with [place] for the patient. Radiology Reports and Pathology Reports are provided separately, in subsequent sections. Lab Results This section contains the Chemistry/Hematology Results that were resulted 30 days before or 30 daysafter the date of the Encounter. Date/Time Source Result Type Result - Unit Interpretation Reference Range Comment Mar 22, 2023 01:57 PM [facility] HEMOGLOBIN A1C Specimen Type: BLOOD [...] Aug 21, 2022 03:48 PM Reporting Lab: [facility] [id number] Performing Lab: [facility] [id number] HEMOGLOBIN A1C 7.1 H 4.0-6.0 Mar 22, 2023 01:57 PM [facility] BASIC METABOLIC PANEL+MG Specimen Type: PLASMA No comment entered. Ordering Provider: SOSA FISH Report Released Date/Time: Aug 21, 2022 03:48 PM Reporting Lab: [facility] [id number] Performing Lab: [facility] [id number] CREATININE 1.2 0.7-1.2 UREA NITROGEN 15 8-26 [...] and tobacco- related health factors from the [place] facility where the Encounter took place. Current Smoking Status This section includes the most current smoking, or tobacco-related health factor, from the [place] facility where the Encounter took place. Date/Time Current Smoking Status Comment Diego peng Aug 18, 2022 08:30 AM VA-TOBACCO FORMER USER [facility] Tobacco Use History This section includes a history of the smoking, or tobacco-related health factors, that were collected on or before the date of the Encounter. The data comes from the [place] facility where the Encounter took place. Date/Time Smoking Status/Tobacco Use Comment Darline soriano Aug 18, 2022 08:30 AM VA-TOBACCO QUIT 15 YRS OR MORE [facility] May 03, 2021 08:00 AM VA-TOBACCO FORMER USER [facility] May 03, 2021 08:00 AM VA-TOBACCO QUIT 15 YRS OR MORE [facility] Apr 21, 2020 09:00 AM VA-TOBACCO FORMER USER [facility] Apr 21, 2020 09:00 AM VA-TOBACCO QUIT 15 YRS OR MORE [facility] Apr 03, 2018 03:16 PM FORMER TOBACCO USE >1Y <7Y [facility] Mar 09, 2007 10:41 AM CURRENT TOBACCO USER [facility] Advance Directives: All historical and current Section Date Range: From patient's date of to the date document was created. This section includes ALL of a patient's completed or amended [place] Advance and Rescinded Directives. The entries below indicate that a directive exists for the patient, but an actual copy is not included with this document. The data comes from all [facility]. Date Advance Directives Provider Source Jun 22, 2021 ADVANCE DIRECTIVE DISCUSSION ALLYSON GRAF [facility] Jun 22, 2021 ADVANCE DIRECTIVE ALLYSON GRAF [facility] Mar 09, 2007 ADVANCE DIRECTIVE SOLEDAD WOLFF [facility] Encounter Notes: All associated encounter notes This section contains the clinical notes associated to the Encounter. Date/Time Encounter Note(s) Provider Source Apr 18, 2023 03:15 PM PHARMACY NOTE: LOCAL TITLE: PHARMACOTHERAPY-CLINICAL PHARMACY NOTE STANDARD TITLE: PHARMACY NOTE DATE OF NOTE: APR 18, 2023@15:15 ENTRY DATE: APR 18, 2023@15:16:04 AUTHOR: DIANN ANGEL EXP COSIGNER: URGENCY: STATUS: COMPLETED PHARMACOTHERAPY-CLINICAL PHARMACY NOTE Has ADDENDA MIGUELINA PÉREZ is a 77 YO MALE followed by [facility] for medication management. PMH is significant for T2DM with chronic foot infections, GERD, and HLD. SUBJECTIVE: [place] has been following with PACT for T2DM management. Patient's previous A1c was <7% which the patient feels he would like to obtain again. Pt reports a wound on his right heel which he has had since September from an operation he had in June 2022. He states the wound has been healing, but has remained off of it and has had wound cleanings. Notes one episode of diarrhea which he feels was related to semaglutide. He expresses that this may have been an isolated event and denies any issues prior. 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 Due to his foot infection, he uses a wheelchair and walker. He is hoping to use his e-bike soon. ROS: (-) hypoglycemia symptoms (-) hyperglycemia symptoms SMBG Readings: Date AM Noon PM Bedtime Notes 04/18 125 04/17 129 04/16 130 04/15 137 04/14 125 04/13 119 04/12 107 04/11 98 04/10 121 04/09 120 04/08 125 04/07 109 04/06 125 04/05 170 04/04 135 04/03 149 03 111 04/01 95 03/31 118 - blood sugars were taken while fasting in the morning BG Av Home BP Readings: nurse checks BP three times weekly - Patient does not have any recorded blood pressures, but self-reports an average bp of 115-125/60 Adherence to medications: patient appears to be adherent to medications OBJECTIVE: ALLERGIES/ADR: VANCOMYCIN (Apr 27, 2018) MEDICATION RECONCILIATION: Active and Recently Outpatient Medications (excluding Supplies): Active Outpatient Medications Status 1) ACCU-CHEK GUIDE (GLUCOSE) TEST STRIP USE 1 STRIP ACTIVE TWICE A DAY TO CHECK BLOOD SUGAR--USE WITHIN 3 MINUTES OF REMOVING FROM CONTAINER 2) ATORVASTATIN CALCIUM 40MG TAB TAKE ONE TABLET BY ACTIVE (S) MOUTH EVERY DAY FOR CHOLESTEROL 3) DICLOFENAC NA 1% TOP GEL APPLY 4 GRAMS TOPICALLY FOUR ACTIVE TIMES A DAY NEEDED FOR JOINT PAIN 4) FINASTERIDE 5MG TAB TAKE ONE TABLET BY MOUTH EVERY ACTIVE (S) DAY FOR PROSTATE 5) INSULIN,GLARGINE-YFGN 100UNIT/ML PEN 3ML INJECT 22 Confirmed UNITS UNDER THE SKIN AT BEDTIME FOR DIABETES - Patient reports injecting 20 units - Patient reports self-titrating insulin dose if his blood sugars are lower he will lower his dose of insulin 2 units every 3-4 days as needed i.e. BG in the 90s decreased dose to 18 units 6) LIDOCAINE 4% TOP CREAM APPLY MODERATE AMOUNT ACTIVE TOPICALLY THREE TIMES A DAY FOR PAIN 7) MENTHOL/M-SALICYLATE 10-15% TOP CREAM APPLY THIN ACTIVE LAYER TOPICALLY THREE TIMES A DAY FOR MUSCLE PAIN 8) METFORMIN HCL 1000MG TAB TAKE ONE TABLET BY MOUTH Confirmed (S) TWICE A DAY FOR DIABETES 9) OMEPRAZOLE 20MG EC CAP TAKE ONE CAPSULE BY MOUTH ACTIVE EVERY DAY ON AN EMPTY STOMACH, AT LEAST 30 MINUTES PRIOR TO A MEAL FOR GERD 10) SEMAGLUTIDE 1MG/0.75ML INJ PEN 3ML INJECT 1MG UNDER Confirmed THE SKIN EVERY WEEK FOR DIABETES - Patient reports taking on Sundays - Patient requests a refill 11) TAMSULOSIN HCL 0.4MG CAP TAKE ONE CAPSULE BY MOUTH ACTIVE EVERY EVENING Active Non-VA Medications Status 1) [...] 18 (03/22/2023 14:13) Pain: 0 (03/22/2023 14:13) Height: 71 in [180.3 cm] (03/22/2023 14:13) Weight: 221 lb [100.24 kg] (03/22/2023 14:13) BMI: 30.9 LABS: Basic Metabolic Panel SODIUM 138 (03/22/23) POTASSIUM 4.5 (03/22/23) CREATININE 1.2 (03/22/23) UREA NITROGEN 15 (03/22/23) GLUCOSE 145 H (03/22/23) CO2 27 (03/22/23) CHLORIDE 101 (03/22/23) EGFR (03/03) 08/03/21 @ 1226 94 CREATININE EGFR (CKD-EPI) 03/22/23 @ 1357 63 MAGNESIUM 1.9 (03/22/23) Collection DT Specimen Test Name Result Units Ref Range 03/22/2023 13:57 PLASMA CREATININE 1.2 mg/dL 0.7 - 1.2 08/18/2022 07:31 PLASMA CREATININE 0.9 mg/dL 0.7 - 1.2 12/22/2021 14:31 PLASMA CREATININE 1.1 mg/dL 0.7 - 1.2 03/22/2023 13:57 PLASMA .CREAT EGFR(CKD-E 63 Ref: >=60 08/18/2022 07:31 PLASMA .CREAT EGFR(CKD-E 89 Ref: >=60 12/22/2021 14:31 PLASMA .CREAT EGFR(CKD-E 70 Ref: >=60 08/03/2021 12:26 PLASMA ESTIMATED GFR(eGF >60 Ref: >=60 06/15/2021 11:53 PLASMA ESTIMATED GFR(eGF >60 Ref: >=60 05/03/2021 09:07 PLASMA ESTIMATED GFR(eGF >60 Ref: >=60 CHOLESTEROL____ MEASURED LDL____ LDL CALCULATION____ HDL____ TRIGLYCERIDE____ Collection DT Spec HGBA1C 03/22/2023 13:57 BLOOD 7.1 H 08/18/2022 07:31 BLOOD 6.8 H 12/22/2021 14:31 BLOOD 8.2 H Collection DT Specimen Test Name Result Units Ref Range 05/03/2021 09:35 URINE ALB/CREAT RATIO,U 39.7 H mg/g creat Ref: <=29.9 04/19/2007 14:08 URINE ALB/CREAT RATIO,U 9.70 mg/gCreat 0 - 30 SGOT____ SGPT____ TSH ____ No data available ASSESSMENT: #T2DM with a positive c-peptide - Goal A1c <8% (FBG 80-160, PPG <210) per VA/DoD guidelines. Last A1c was down significantly and below goal. Recently reported SMBG values are acceptable. He is denying any concerns regarding hypoglycemia. Discussed continuing current medication regimen, but if diarrhea becomes bothersome can discuss further. Future Considerations: - Patient's ALB/CREAT Ratio in 2020 was >30 which indicates him to be started on an ACEi or ARB despite being normotensive for kidney protection. Would consider ordering an updated ALB/CREAT Ratio lab to be ordered and if it remains elevated woudld initiate therapy. PLAN: Continue - Metformin 1000 mg 1 tablet by mouth BID - Semaglutide 1 mg under the skin once daily on Sundays - Insulin glargine 20 units under the skin once daily #Disease-Specific Med Rec: Completed today #Labs: No labs are due at today's visit - could consider ALB/CREAT ratio at next visit - Educated vet on indication/risks/benefits of new/changed medication. - Education provided on therapeutic nonpharmacologic management to achieve goals. - Vet advised of recent labs. - [place] verbalized understanding to all plans discussed today. Questions were answered to vet's satisfaction. Time spent: 23 minutes RTC: 07/11/23 @ 330 with PACT Pharmacist, Kari Brito /toby/ Diann Angel PharmD [facility] Clinical Tonsorial Artist Signed: 04/19/2023 08:07 04/19/2023 ADDENDUM STATUS: COMPLETED I was present during this call for training purposes. I agree with the history and assessment, as outlined above. /toby/ KARI BRITO PHARM D, BCPS PHARMACIST Signed: 04/19/2023 12:55 DIANN ANGEL [facility]
--- OUTSIDE RECORDS SUMMARY | 2023-08-29 09:22 | XMS_ITS | Encounter Summary ---
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 Affairs Organization Department of Vetera ns Affairs Address [address] [place] [address] Support Name Relationship Address Phone DOROTHY DUONG Next of Kin Unknown [phone] DOROTHY DUONG Emergency Contact Unknown [phone] Insurance Providers: All historical and current Section [...] MEDIC ARE SUPPL EMENT Jul 31, 2018 [id number] RODNEY[place] ALEX PATIENT [place] MEDIC ARE SUPPL EMENT Jul 31, 2018 [id number] [phone] [place] [facility] (WNR) MEDICARE ADVANTAGE [facility] (WNR) Jul 31, 2017 [id number] [phone] RENBR[place]KANE ALEX PATIENT [place] MEDIC ARE SUPPL EMENT Jul 31, 2018 [id number] REN[place] ALEX PATIENT [place] MEDIC ARE SUPPL EMENT Jul 31, 2018 [id number] [phone] RODNEYBRITTNEYKANE ALEX PATIENT MEDICARE (WNR) MEDICARE (M) PART A May 31, 2011 PART A [id number] [phone] BETOKANE JOHNSON PATIENT MEDICARE (WNR) MEDICARE (M) PART B May 31, 2011 PART B [id number] [phone] KANE PÉREZ PATIENT Selected Encounter This section includes the information on record at [place] for the Encounter. Date/Time Encounter Type Encounter Description Reason Provider Source December 07, 2022 11:30 AM PRO PHONE CALL 11-20 MIN TELEPHONE PRIMARY CARE ICD-10-CM E11.42 Type 2 diabetes mellitus with diabetic polyneuropathy KARI BRITO [facility] Encounter Template Text not used by [place] Assessments - Encounter Diagnoses This section includes the primary and secondary diagnoses documented for the Encounter. Date/Time Primary/Secondary Diagnosis Diagnosis Name Provider Source December 07, 2022 11:30 AM PRIMARY Type 2 diabetes mellitus with diabetic polyneuropathy KARI BRITO [facility] Plan of Treatment: Future Appointments (+ 6 months) and Future Tests (+/- 45 days) The Plan of Treatment section includes future care activities for the patient from all [place] treatmentfacilities. This section includes future appointments and future orders which are active, pending or scheduled. Future Appointments This section includes appointments that were scheduled to occur 6 months from the date of the Encounter, up to a maximum of 20 appointments. The data comes from all [place] treatment facilities. Appointment Date/Time Appointment Type Appointme nt Facility Name December 27, 2022 09:30 AM AMBULATORY - MEDICINE [facility] Jan 06, 2023 11:30 AM AMBULATORY - MEDICINE [facility] Mar 14, 2023 03:30 PM AMBULATORY - MEDICINE [facility] Mar 22, 2023 01:45 PM AMBULATORY - NONE [facility] Mar 22, 2023 02:45 PM AMBULATORY - MEDICINE [facility] Apr 18, 2023 03:30 PM AMBULATORY - NONE [facility] Social History: Smoking Status (Most current) and Tobacco Use (All prior to encounter date) This section includes the most current, and the historical, smoking and tobacco- related health factors from the [place] facility where the Encounter took place. Current Smoking Status This section includes the most current smoking, or tobacco-related health factor, from the [place] facility where the Encounter took place. Date/Time Current Smoking Status Quique peng Aug 18, 2022 08:30 AM VA-TOBACCO FORMER USER [facility] Tobacco Use History This section includes a history of the smoking, or tobacco-related health factors, that were collected on or before the date of the Encounter. The data comes from the [place] facility where the Encounter took place. Date/Time Smoking Status/Tobacco Use Comment F acility Aug 18, 2022 08:30 AM VA-TOBACCO QUIT [address] [facility] May 03, 2021 08:00 AM VA-TOBACCO FORMER USER [facility] May 03, 2021 08:00 AM VA-TOBACCO QUIT [address] [facility] Apr 21, 2020 09:00 AM VA-TOBACCO FORMER USER [facility] Apr 21, 2020 09:00 AM VA-TOBACCO QUIT [address] [facility] Apr 03, 2018 03:16 PM FORMER TOBACCO USE >1Y <7Y [facility] Mar 09, 2007 10:41 AM CURRENT TOBACCO USER [facility] Advance Directives: All historical and current Section Date Range: From patient's date of to the date document was created. This section includes ALL of a patient's completed or amended [place] Advance and Rescinded Directives. The entries below indicate that a directive exists for the patient, but an actual copy is not included with this document. The data comes from all [facility]. Date Advance Directives Provider Source Jun 22, 2021 ADVANCE DIRECTIVE DISCUSSION ALLYSON GRAF [facility] Jun 22, 2021 ADVANCE DIRECTIVE ALLYSON GRAF [facility] Mar 09, 2007 ADVANCE DIRECTIVE SOLEDAD WOLFF [facility] Encounter Notes: All associated encounter notes This section contains the clinical notes associated to the Encounter. Date/Time Encounter Note(s) Provider Source December 07, 2022 09:10 AM PHARMACY NOTE: LOCAL TITLE: PHARMACOTHERAPY-CLINICAL PHARMACY NOTE STANDARD TITLE: PHARMACY NOTE DATE OF NOTE: DECEMBER 07, 2022@09:10 ENTRY DATE: DECEMBER 07, 2022@09:10:44 AUTHOR: KARI BRITO EXP COSIGNER: URGENCY: STATUS: COMPLETED BACKGROUND: BETOMIGUELINA is a 77 YO MALE contacted by phone for medication management, mainly for DM. PMH is significant for T2DM with chronic foot infections, GERD, and HLD. SUBJECTIVE: In brief, at our last visit, his semaglutide was increased, with a reduction on his glargine. He reports doing well with the changes and denies any new SEs, including GI. Feels appetite has been down a bit with the increase. Notes activity is up slightly-he has moved from a wheel chair to a walker, but continues to struggle with a foot wound and ongoing urological issues--he is following closely locally and continues with an indwelling catheter. Notes having close home care support for wound dressings. Lifestyle: Tobacco: Denies EtOH: Denies Food and Drink: Breakfast: egg/stoner/1 piece of toast on occasion a bkfst roll or milk/cereal Lunch: varies--sometimes skips or a sandwich or grapes/cheese, beef stew Evening meal: slabber -- sandwich or fruit/cheese Snacks: snickers, Pinson kisses Beverages: diet coke, water, coffee Activity: [...] but is checking fastings on most days. Recalls most readings in the low 100s. Lowest recalled reading was 90. Highest recalled reading was 170. Previous Readings: October/u ave: 116 Home BP Readings: Reports 115-130s/75-80s [...] PROSTATE 3) INSULIN,GLARGINE-YFGN 100UNIT/ML PEN 3ML INJECT 18 see text UNITS UNDER THE SKIN AT BEDTIME FOR DIABETES taking 20 units qday for the past couple weeks 4) METFORMIN HCL 1000MG TAB TAKE ONE TABLET BY MOUTH confirmed TWICE A DAY FOR DIABETES 5) OMEPRAZOLE 20MG EC CAP TAKE ONE CAPSULE BY MOUTH HOLD EVERY DAY ON AN EMPTY STOMACH, AT LEAST 30 MINUTES PRIOR TO A MEAL FOR GERD 6) SEMAGLUTIDE 1MG/0.75ML INJ PEN 3ML INJECT 1MG UNDER confirmed THE SKIN EVERY WEEK FOR DIABETES 7) [...] below goal. Current SMBG values are acceptable. Suggest continuing the present regimen. PLAN: Medications: -No changes Monitoring: -Check BG once daily, varying times #Disease-Specific Med Rec: Completed today #Labs: Declines for now--will obtain with January PCP RTC - Educated vet on indication/risks/benefits of new/changed medication. - Education provided on therapeutic nonpharmacologic management to achieve goals. - Vet advised of recent labs. - verbalized understanding to all plans discussed today. Questions were answered to vet's satisfaction. Time spent: 18 minutes RTC: -01/06 phone prefers to avoid [facility]-only has a cellphone /toby/ KARI BRITO PHARM D, BCPS PHARMACIST Signed: 12/07/2022 11:[address] [facility]
--- OUTSIDE RECORDS SUMMARY | 2023-08-29 09:22 | XMS_ITS | Encounter Summary ---
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 Affairs Organization [facility] Address [address] [place] [address] Support Name Relationship Address Phone DOROTHY DUONG [...] MEDIC ARE SUPPL EMENT Jul 31, 2018 [id number] [phone] RENBRITTNEYKANE ALEX PATIENT [place] MED[place] SUPPLEMEN [place] MEDIC ARE SUPPL EMENT Jul 31, 2018 [id number] [phone] RENBR[place] [facility] (WNR) MEDICARE ADVANTAGE [facility] (WNR) Jul 31, 2017 [id number] [phone] RENBRITTNEYKANE ALEX PATIENT [place] MED[place] SUPPLEMEN SCOT MEDIC ARE SUPPL EMENT Jul 31, 2018 [id number] [phone] RENBRITTNEY,KANE A[place] SUPPLE[place] MEDIC ARE SUPPL EMENT Jul 31, 2018 [id number] [phone] RENBRITTNEYKANE ALEX PATIENT MEDICARE (WNR) MEDICARE (M) PART A May 31, 2011 PART A [id number] [phone] RENKANE LUGO PATIENT MEDICARE (WNR) MEDICARE ([place]) PART B May 31, 2011 PART B [id number] [phone] KANE PÉREZ PATIENT Selected Encounter This section includes the information on record at [place] for the Encounter. Date/Time Encounter Type Encounter Description Reason Provider Source December 27, 2022 09:30 AM Outpatient Encounter GENERAL INTERNAL MEDICINE ICD-10-CM Z77.29 Contact with and exposure to other hazardous substances FADY SOLORZANO Candy Encounter Template Text not used by [place] Assessments - Encounter Diagnoses This section includes the primary and secondary diagnoses documented for the Encounter. Date/Time Primary/Secondary Diagnosis Diagnosis Name Provider Source Jan 02, 2023 02:33 PM PRIMARY Contact with and exposure to other hazardous substances [facility] Plan of Treatment: Future Appointments (+ 6 months) and Future Tests (+/- 45 days) The Plan of Treatment section includes future care activities for the patient from all [place] treatmentfacilities. This section includes future appointments and future orders which are active, pending or scheduled. Future Appointments This section includes appointments that were scheduled to occur 6 months from the date of the Encounter, up to a maximum of 20 appointments. The data comes from all [place] treatment facilities. Appointment Date/Time Appointment Type Appointme nt Facility Name Jan 06, 2023 11:30 AM AMBULATORY - MEDICINE [facility] Mar 14, 2023 03:30 PM AMBULATORY - MEDICINE [facility] Mar 22, 2023 01:45 PM AMBULATORY - NONE [facility] Mar 22, 2023 02:45 PM AMBULATORY - MEDICINE [facility] Apr 18, 2023 03:30 PM AMBULATORY - NONE [facility] Advance Directives: All historical and current Section Date Range: From patient's date of to the date document was created. This section includes ALL of a patient's completed or amended [place] Advance and Rescinded Directives. The entries below indicate that a directive exists for the patient, but an actual copy is not included with this document. The data comes from all [facility]. Date Advance Directives Provider Source Jun 22, 2021 ADVANCE DIRECTIVE DISCUSSION ALLYSON GRAF [facility] Jun 22, 2021 ADVANCE DIRECTIVE ALLYSON GRAF [facility] Mar 09, 2007 ADVANCE DIRECTIVE SOLEDAD WOLFF [facility]
--- OUTSIDE RECORDS SUMMARY | 2023-08-29 09:23 | XMS_ITS | Data Portability ---
Author Name Unknown Address [address] [place] [address] Phone [phone] [facility] Address 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 Here with . Discussed multifactorial nature of acute retention. He has several pre-disposing factors increasing risk of retention including hospitalization with acute severe illness, decreased ambulation, narcotic pain medications, and constipation. Suspect BPH may also be contributing. Attempted TOV today with 450 in, only 200 out with minimal urge to empty any further. Discussed replacing Terry versus taking a couple hours to attempt additional voids versus proceeding without a catheter, though with the risk that he would need to be seen in the ER later for terry placement if unable to void. Could also consider learning CIC. He and preferred to have terry replaced. 1. Urinary retention - Replace 16 or 18Fr coude catheter today - Abx for ppx - Recommend follow up with MD for cystoscopy next 2-3 weeks (2 failed TOVs), eval prostate - Continue tamsulosin 0.4 mg daily - Start finasteride 5 mg daily, discussed time to efficacy (6+ months) and side effects [email or web address] Not available 06/16/2022 18:10:42 06/30/2022 06/30/2022 77M with urinary retention. 1)Urinary retention - Suspect due to being bedridden, hospitalized. - no evidence obstruction on cysto - Should improve as his mobility improves. - Continue tamsulosin 0.4 mg daily - Continue finasteride 5 mg daily - change Terry monthly; recommend urodynamics if still unable to void once ambulating charity Not available 06/30/2022 14:06:21 11/04/2022 11/04/2022 Here for UDS procedure. Not available 10/19/2022 15:44:44 11/11/2022 11/11/2022 77M with urinary retention. 1) Urinary retention - UDS shows low detrusor pressure and low flow, also no relaxation of sphincter with permission to void. 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 - recommend TOV @ next catheter change - if unable to void will need Terry replaced; - no evidence obstruction on cysto - Continue tamsulosin 0.4 mg daily - Continue finasteride 5 mg daily 12 min total time charity Not available 11/11/2022 17:49:48 Plan of Treatment Reminders Order Date Submit Date Provider Last Modified By Organization Details Last Modified Time Details Appointments None recorded. Lab culture, urine - Pt has a Terry in place, so removed for UDS. Denies any symptoms of UTI, but UC sent and pt treated due to hx of Hospitaliza tion for UTI. 2022 023 [facility], [address], [place], [address], 3 10:05:08 urinalysis, dipstick 2022 023 [facility], [address], [place], [address], 3 12:03:37 Referral None recorded. Procedures None recorded. Surgeries None recorded. Imaging None recorded. Medication Orders tamsulosin 0.4 mg capsule [email or web address] [facility], [address] , [place], [address], 2 18:25:29 finasteride 5 mg tablet [email or web address] [facility], [address], [place], [address], 2 18:25:29 Patient TargetsNo targets recorded. Patient Instructions Encounter Date Encounter Id Patient Instructions Last Modified By Organization Details Last Modified Time 11/04/2022 [id number] Pt has F/U appt with Dr Barrientos in [place] on 11/11/2022 @ 3:10pm to review UDS. Not available 10/19/2022 15:50:04 09/23/2022 [id number] Patient to call clinic with questions or concerns. Advised patient to increase water intake and to keep 4 week appointment for next catheter change. [email or web address] Not available 09/23/2022 13:22:30 08/03/2022 [id number] Will reach out t o [place] about patient [email or web address] Not available 08/03/2022 11:17:30 Reason for Referral None Reported. Results Created Date Observation Date Name Description Value Unit Range Abnormal Flag LastModifiedBy Organization Detail LastModifiedTime 11/05/1911/04/2022 URINE CULTU RE final report microb iology result s abnormal Not Available [facility] [address], [place], [address], 11/07/2022 10:05:08 11/05/19 23 11/04/2022 urina lysis , dipst ick Color-Status Straw Not Available [facility] [address], [place], [address], 11/04/2022 12:02:10 11/05/19 23 11/04/2022 urina lysis , dipst ick Clarity-Stat us Slight ly Cloudy Not Available [facility] [address], [place], [address], 11/04/2022 12:02:10 11/05/19 23 11/04/2022 urina lysis , dipst ick Glucose-Stat us 500 Not Available [facility] [address], [place], [address], 11/04/2022 12:02:10 11/05/19 23 11/04/2022 urina lysis , dipst ick Bilirubin-St atus Negati ve Not Available [facility] [address], [place], [address], 11/04/2022 12:02:10 11/05/19 23 11/04/2022 urina lysis , dipst ick Ketones-Stat us Negati ve Not Available [facility] [address], [place], [address], 11/04/2022 12:02:10 11/05/19 23 11/04/2022 urina lysis , dipst ick Sp [place]-Stat us 1.015 Not Available [facility] [address], [place], [address], 11/04/2022 12:02:10 11/05/19 23 11/04/2022 urina lysis , dipst ick pH-Status 6.5 Not Available [facility] [address], [place], [address], 11/04/2022 12:02:10 11/05/19 23 11/04/2022 urina lysis , dipst ick Protein-Stat us 5.0 Not Available [facility] [address], [place], [address], 11/04/2022 12:02:10 11/05/19 23 11/04/2022 urina lysis , dipst ick Urobilinogen -Status 0.2 Not Available [facility] [address], [place], [address], 11/04/2022 12:02:10 11/05/19 23 11/04/2022 urina lysis , dipst ick Nitrates-Sta tus positi ve Not Available [facility] [address], [place], [address], 11/04/2022 12:02:10 11/05/19 23 11/04/2022 urina lysis , dipst ick Blood-Status Large Not Available [facility] [address], [place], [address], 11/04/2022 12:02:10 11/05/19 23 11/04/2022 urina lysis , dipst ick Leuko-Status Large Not Available [facility] [address], [place], [address], 11/04/2022 12:02:10 11/05/19 23 11/04/2022 urina lysis , dipst ick Specimen Type Cathet erized Not Available [facility] [address], [place], [address], 11/04/2022 12:02:10 11/05/19 23 11/04/2022 urina lysis , dipst ick Performed by Jake ross Not Available [facility] [address], [place], [address], 11/04/2022 12:02:10 Result Notes None recorded. Problems Name Status Onset Date Resolution Date Notes Provider Name and Address Organization Details Recorded Time Retention of urine Active 3 Jenna song [facility] 10/21/2022 13:15:43 Problem Notes None recorded. Procedures Surgical History Date Name Laterality Status Provider Name and Address Organization Details Recorded Time 3 Fill and Pull/Voiding Trial/TOV completed OLMAN Chappell [facility] 12/09/2022 11:59:45 3 Urodynamic Studies completed Deyanira song [facility] 11/04/2022 12:19:38 3 Terry Catheter Insertion completed Deyanira song [facility] 11/04/2022 12:21:21 3 Urethral Catheter Change completed Jenna Harris null, [facility] 10/21/2022 13:18:32 3 Urethral Catheter Change completed Nenita Flores null, [facility] 09/23/2022 13:21:12 3 Terry Catheter Insertion completed Roula Beltran null, [facility] 08/03/2022 11:16:51 3 Fill and Pull/Voiding Trial/TOV completed Roula Beltran null, [facility] 08/03/2022 11:16:41 2 Cystoscopy- male completed Kristopher Barrientos MD, PHD [address] [place] [address],[address], [place], [address], [facility] 06/30/2022 09:37:30 2 Urethral Catheter Change completed Carlos Mix null, [facility] 06/30/2022 09:49:15 2 Terry Catheter Insertion completed Еленаarminda Josue null, [facility] 06/16/2022 15:03:22 2 Fill and Pull/Voiding Trial/TOV completed Roula Tony PA-C [address] [place] [address], [address], [facility] 06/16/2022 18:06:50 Cataract Surgery completed Forsanarminda Josue [facility] 06/16/2022 12:30:25 Orthopedic Surgery completed Forsanarminda Josue [facility] 06/16/2022 12:30:33 Imaging Results None recorded. Procedure Notes None recorded. Medical Equipment None Reported. Allergies No known drug allergies Medications Name Sig Start Date Stop Date Status Note LastModified by Organization Details LastModified Time atorvastatin 80 mg tablet Take 1 tablet every day by oral route. active Not Available Not Available No t Available Lantus U-100 Insulin 100 unit/mL subcutaneous solution Inject by subcutaneou s route. active Not Available Not Available No t Available cefadroxil 500 mg capsule Take 2 capsules every day by oral route. active Not Available Not Available No t Available tamsulosin 0.4 mg capsule Take 1 capsule every day by oral route. 2021 active Not Available Not Available Not Avai lable metformin 1,000 mg tablet Take 1 tablet twice a day by oral route. active Not Available Not Available No t Available finasteride 5 mg tablet Take 1 tablet every day by oral route. 2021 active Not Available Not Available Not Avai lable Ozempic 0.25 mg or 0.5 mg (2 mg/1.5 mL) subcutaneous pen injector Inject by subcutaneou s route. active Not Available Not Available No t Available Vitals Date Recorded Body height Body mass index (BMI) Body weight Provider Name and Address Organization Details Last Updated DateTime 06/16/2022 180.34 cm 30 kg/m2 78575.36 g Juanito song [facility] 06/16/2022 12:27:07 Date Recorded Body height Provider Name an d Address Organization Details Last Updated DateTime 06/30/2022 180.34 cm Carlos song [facility] 06/30/2022 09:27:04 Date Recorded Body height Provider Name an d Address Organization Details Last Updated DateTime 09/23/[address] [facility] 09/23/2022 13:17:39 Date Recorded Body height Body mass index (BMI) Body weight Provider Name and Address Organization Details Last Updated DateTime 11/11/2022 180.34 cm 30 kg/m2 86160.36 g Amanda song [facility] 11/11/2022 16:25:51 Social History Question Answer Notes LastModified by Organizat ion Details LastModified Time Tobacco Smoking Status Former Smoker Juanito song [facility] 06/16/2022 12:29:38 What Is Your Level Of Alcohol Consumption? None Information not available 06/16/2022 What Is Your Level Of Caffeine Consumption? Moderate Information not available 06/16/2022 When Did You Quit Smoking? 6-10yearssince lastcigarette Information not available 06/16/2022 What Was The Date Of Your Most Recent Tobacco Screening? 11/11/2022 [email or web address] Information not available 11/11/2022 Sex: Male Functional Status None recorded. Mental Status None recorded. Family History Relationship Description Onset Age of this Age Resolved Age Notes Father Family history of cancer Father Family history of ca rdiac disorder Medical History Condition Response Sexually Transmitted Infection N Diabetes Y Other N Bleeding Disorder N High Blood Pressure N Kidney Stones N High Cholesterol N GERD/Acid Reflux N Heart Disease Y Cancer N Depression N Lung Disease N Past Encounters Encounter ID Performer Location Encounter Start Date Encounter Closed Date Diagnosis/Indication [id number] Roula Tony PA-C [facility] [address] [place] [address] 06/16/2022 11:30:09 06/20/2022 08:36:10 Retention of urine Benign prostatic hyperplasia with outflow obstruction [id number] Kristopher Barrientos MD, PHD [facility] [address] [place] [address] 06/30/2022 08:46:23 07/04/2022 11:29:58 Retention of urine Benign prostatic hyperplasia with outflow obstruction [id number] Roula Beltran [facility] [address] [place] [address] 08/03/2022 10:27:16 08/05/2022 11:54:14 Retention of urine [id number] Nenitaaranza Flores [facility] [address] [place] [address] 09/23/2022 10:30:04 09/26/2022 14:37:37 [id number] Kristopher Barrientos MD, PHD [facility] [address] [place] [address] 11/04/2022 10:41:00 11/10/2022 13:37:32 Benign prostatic hyperplasia with outflow obstruction Retention of urine Microscopic hematuria [id number] Jenna Harris [facility] [address] [place] [address] 10/21/2022 11:27:55 10/24/2022 11:49:09 Retention of urine [id number] Kristopher Barrientos MD, PHD [facility] [address] [place] [address] 11/11/2022 16:25:28 11/17/2022 17:02:38 Retention of urine Benign prostatic hyperplasia with outflow obstruction [id number] Jenna aHrris [facility] [address] [place] [address] 12/09/2022 10:56:01 12/12/2022 15:10:14 Retention of urine Health Concerns Section Related Observation LastModified by Organization Detai ls LastModified Time None Recorded Concern Status LastModified by Organization Details LastModified Time None Recorded Advance Directives Directive None Recorded Payers Encounter Date Sequence Insurance Name Policy Number Policy Molina Covered Member ID Molina Member ID Guarantor Name 12/09/2022 1 [place] [employer] Tom B Renaux [id number] Tom B Renaux 12/09/2022 2 [place] [id number] Tom B Renaux [id number] Tom B Renaux 11/11/2022 1 [place] [employer] Tom B Renaux [id number] Tom B Renaux 11/11/2022 2 [place] [id number] Tom B Renaux [id number] Tom B Renaux 11/04/2022 1 [place] [employer] Tom B Renaux [id number] Tom B Renaux 11/04/2022 2 [place] [id number] Tom B Renaux [id number] Tom B Renaux 10/21/2022 1 [place] [employer] Tom B Renaux [id number] Tom B Renaux 10/21/2022 2 [place] [id number] Tom B Renaux [id number] Tom B Renaux 09/23/2022 1 [place] [employer] Tom B Renaux [id number] Tom B Renaux 09/23/2022 2 [place] [id number] Tom B Renaux [id number] Tom B Renaux 08/03/2022 1 [place] [facility] [employer] Tom B Renaux [id number] Tom B Renaux 08/03/2022 2 [place] [id number] Tom B Renaux [id number] Tom B Renaux 06/30/2022 1 [place] [facility] Tom B Renaux [id number] Tom B Renaux 06/30/2022 2 [place] [id number] Tom B Renaux [id number] Tom B Renaux 06/16/2022 1 [place] [facility] Tom B Renaux [id number] Tom B Renaux 06/16/2022 2 [place] [id number] Tom B Renaux [id number] Tom B Renaux Notes Date Note Type Note Provider Name and Address Organization Details Recorded Time 06/16/2022 text/html HPI Notes: 77M w ith urinary retention. Here with . 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 Was managed with antibiotics and did not require surgery. Required multiple straight caths 05/21- so Terry was placed on 05/22. He started tamsulosin on 05/24. Terry was removed 05/26, but he failed the voiding trial so terry was replaced on 05/27. No trouble with the catheter aside from some irritation at meatus. Urine has been clear. Prior to this episode, had a very strong stream, but did sometimes have to double void. Nocturia usually twice nightly. Denies hematuria, fever, or chills. Notes history of UTIs in the past, no h/o stones. Labs: 05/21/22 UA 3-5 RBC, -25 WBC, mod leuks, neg nit, rare bacteria; no UCx performed Imaging: PMH: PSH: Soc: Occ: Tobacco: EtOH: FHx: Roula Chavo, PA-Cynthia [address], [place], [address], [facility] 06/16/2022 18:10:53 06/30/2022 text/html HPI Notes: 77M w ith urinary retention. Here for cysto. Saw LILIBETH Nix. 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 Was managed with antibiotics and did not require surgery. Required multiple straight caths 05/21- so Terry was placed on 05/22. He started tamsulosin on 05/24. Terry was removed 05/26, but he failed the voiding trial so terry was replaced on 05/27. No trouble with the catheter aside from some irritation at meatus. Urine has been clear. Prior to this episode, had a very strong stream, but did sometimes have to double void. Nocturia usually twice nightly. Denies hematuria, fever, or chills. Notes history of UTIs in the past, no h/o stones. Still at TCU/Rehab. Has foot injury. Still can't weight bear. Labs: 05/21/22 UA 3-5 RBC, -25 WBC, mod leuks, neg nit, rare bacteria; no UCx performed Imaging: PMH: PSH: Soc: Occ: Tobacco: EtOH: FHx: Kristopher Barrientos MD, PHD [address], [place], [address], [facility] 06/30/2022 14:06:37 09/23/2022 text/html HPI Notes: 77 yo male presents for catheter change. Pt denies signs/symptoms of a UTI. His is present at today's appointment. She is requesting a TOV today. Advised that patients plan of care states a catheter change and to have UDS done in October. Advised that patient needs to return to clinic in 4 weeks for next catheter change. Neniat song [facility] 09/23/2022 13:22:32 10/21/2022 text/html HPI Notes: Pt he re for catheter change Jnena song [facility] 10/21/2022 13:21:54 11/11/2022 text/html HPI Notes: 77M w ith urinary retention. 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 Has failed repeated voiding trials. Back at home; using walker now. Still has foot injury. UDS (11/04/22): normal sensation, capacity 228 ml, normal compliance, void vol 182, Qmax 9 ml/s, Pdet 16 cm H20, PVR 46 ml; EMG not relaxing with permission to void Labs: 05/21/22 UA 3-5 RBC, 11-25 WBC, mod leuks, neg nit, rare bacteria; no UCx performed Prior to conducting our telephone visit, the patient was apprised of the risks, benefits and alternatives to telephone visits including but not limited to poor audio quality, interrupted visits due to technological limitations, delays in medical evaluation and treatment due to deficiencies or failures of equipment, failure of security protocols resulting in a breach of privacy of personal medical information and a lack of access to complete medical records resulting in not fully informed decisions. Also, because of the COVID-19 pandemic, it was not possible for the patient to sign the privacy regulations, HIPAA release and assignment of benefits forms. The patient was given the opportunity to ask questions about these policies and gave verbal acknowledgement and approval of these policies as well as to hold this meeting by telephone. Lastly, the patient agreed to allowing their medication history to be pulled from a national pharmacy database to facilitate and coordinate their care. Kristopher Barrientos MD, PHD [address] [place] [address],[address], [place], [address], [facility] 11/11/2022 17:49:57 12/09/2022 text/html HPI Notes: Pt of Dr PALMER, here for TOV recommended at 11/11/22 visit Jenna song [facility] 12/09/2022 12:43:22
== END 2023-08-29 09:08 | disposition home or self-care (01) ==
PROVIDERS: Visit Provider Physician Assistant
DX: E11.621 Type 2 diabetes mellitus with foot ulcer (principal); I87.2 Venous insufficiency (chronic) (peripheral); L97.412 Non-pressure chronic ulcer of right heel and midfoot with fat layer exposed; Z79.84 Long term (current) use of oral hypoglycemic drugs; Z79.85 Long-term (current) use of injectable non-insulin antidiabetic drugs
CPT/HCPCS: 97597; G0463

== ENCOUNTER 2023-09-05 15:15 | Outpatient (CLI) | payer MEDICARE, BC, SELFPAY ==
--- OUTSIDE RECORDS SUMMARY | 2023-09-05 15:18 | XMS_ITS | Clinical Summary ---
Author Name Unknown Organization [employer] [facility] Address [place], [place] [address] Care Team Providers Care Certified Flex Endoscope Reprocessor Name Role Phone Post, Dave Velazquez MD Primary Care Provider [phone] Moshe Enciso MD Unavailable Arie Justin MD Unavailable [phone] [facility], Met Unavailable Murali Hoover DPM Unavailable [phone] Allergies No known active allergies Medications [...] to Care Guide Pamella Brennan Phone number [phone]. Alcohol abuse 06/02/2010 03/26/2019 Overview: Sober since 2001. Great success with AA. 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 06/17/2022 Encounters Date Type Department Care Team Description 09/04/2023 10:30 AM MAGNETOMETER OPERATOR Ancillary Procedure [facility] [address] [place] [address] Arrived 09/04/2023 Travel 07/21/2023 1:30 PM MAGNETOMETER OPERATOR Office Visit [facility] - Darleen Thompson [address] [place] [address] OLMAN Byrne [address] Jose Richardson MD CV General Cardiology Est (Overdue Annual F/U; Pt had an angiogram and was told he had an irregular heartbeat and needed to see cardiology) 07/21/2023 Telephone [facility] - [place] [address] [facility] [address] [place] [address] Jose Richardson MD Referral 07/21/2023 Orders Only [facility] - Darleen Thompson [address] [place] [address] [facility] [place] [place] [address] Angelita Aquino <No scans attached> 07/21/2023 Travel from Last 3 Months Immunizations Name Administration [...] History Relation Name Comments Cancer Father : Esoph ageal Cancer Heart Disease Father bypass age 65 Cancer Mother Melanoma; Curre ntly living age 87 Good Health Sister [...] Comments Blood Pressure 126/60 07/21/2023 1:34 PM MAGNETOMETER OPERATOR Pulse 75 07/21/2023 1:34 PM MAGNETOMETER OPERATOR Temperature 36.7 ??C (98 ??F) 06/29/2022 8:43 AM MAGNETOMETER OPERATOR Respiratory Rate 18 06/29/2022 8:43 AM MAGNETOMETER OPERATOR Oxygen Saturation 96% 07/21/2023 1:34 PM MAGNETOMETER OPERATOR Inhaled Oxygen Concentration - - Weight 104.3 kg (230 lb) 07/21/2023 1:34 PM MAGNETOMETER OPERATOR Height 180.3 cm (5' 10.98) 07/21/2023 1:[address] Body Mass Index 32.09 07/21/2023 1:34 PM MAGNETOMETER OPERATOR Plan of Treatment Upcoming Encounters Date Type Department Care Team (Late st Contact Info) Description 10/06/2023 1:30 PM MAGNETOMETER OPERATOR Phone Office Visit [facility] - [place] [address] [facility] [address] [place], [place] [address] Post, Dave Velazquez MD [address] [facility] [address] [place] [address] Health Maintenance Due Date Last Done Comments COVID-19 vaccine series (#1) 1945 Hepatitis C screening for ag e 18-79 1963 Pneumococcal series for age 65+ (3 of 3 - PPSV23 or PCV20) 09/11/2016 09/11/2015, 11/03/2010, 04/19/2007 Depression screening for age 12+ 03/26/2020 03/26/20 19, 03/22/2018 Medicare Wellness for age 65+ 03/26/2020 03/26/2019, 03/22/2018 Influenza for age 65+ 03/31/2023 04/21/2020 [...] 07/16/2020, 04/21/2020 Medical Devices Implanted Type Area Armament Repairer Device Identifier Shelf Expiration Date Model / Serial / Lot [id number] - [id number] Implanted:Qty: 1 on 09/20/2021 at [facility] Right: Foot [employer] AR-8725-4 4H / / Description:COMPRESSION FT S CREWS CANNULATED, 2.5 MICRO 44MM LOAD 4 [id number] Mar-1530p - [id number] Implanted:Qty: 1 on 09/20/2021 at [facility] Right: Foot [employer] 03/30/2025 AR-1530P- CP / / [id number] Description:FOREFOOT INTERNA L BRACE IMPLANT SYSTEM, PEEK Screw 4.28k51th Bio Compositetenodesis Disp Ash Handler Pk - [id number] Implanted:Qty: 1 on 09/20/2021 at [facility] Right: Foot [employer] 08/30/2022 AR-1547CD S / / [id number] Ancr Sut 1.3mm Dx Fibertak Suturetape 2 Ndl 26.2mm /2 Cir - [id number] Implanted:Qty: 1 on 09/20/2021 at [facility] Right: Foot [employer] 06/29/2026 AR-8990ST / / [id number] Explanted Type Area Armament Repairer Device Identifier Shelf Expiration Date Model / Serial / Lot Wire Kirs .[id number] Smooth6/Pk 10 Depuy/Héctor - [id number] Explanted:Qty: 1 on 09/20/2021 at [facility] Right: Foot [employer] 1646-000 / / Description:LOAD 4 8 [id number] [facility]-8737-40 - [id number] Explanted:Qty: 1 on 09/20/2021 at [facility] Right: Foot [employer] AR-8737-40 / / Description:2.5 MICRO COMPRE SSION FT DRILLS AND DISPOSABLES, GUIDEWIRE W TROCAR TIP, THREADED, 0.34 IN (.86MM) LOAD 4 7 [id number] Procedures Procedure Name Priority Date/Time Associated Diagnosis Comments ECHO TTE COMPLETE WO CONTRAST Routine 09/04/2023 11:00 AM MAGNETOMETER OPERATOR SOB (shortness of breath) Fatigue, unspecified type Irregular heart beat EXTENDED HOLTER Routine 08/03/2023 SOB (shortness of breath) Fatigue, unspecified type Irregular heart beat EKG 12 LEAD Routine 07/21/2023 3:01 PM MAGNETOMETER OPERATOR SOB (shortness of breath) Fatigue, unspecified type Irregular heart beat from Last 3 Months Results * ECHO TTE COMPLETE WO CONTRAST (09/04/2023 11:00 AM MAGNETOMETER OPERATOR) EJECTION FRACTION 50-55% PROSOLV Anatomical Region Laterality Modality Ultrasound 09/04/2023 10:2 8 AM MAGNETOMETER OPERATOR Narrative 09/04/2023 2:53 PM MAGNETOMETER OPERATOR [address] [address] Main: ? Transthoracic Echo Report MIGUELINA PÉREZ ID: [id number] Age: 78 : 1945 Ordering Provider: JOSE RICHARDSON Exam Date: 09/04/2023 10:28 Gender: [place]iannon Security Intelligence Analyst: NAHOMY Height: 70.1 in BSA: 2.22 m?? BP: 126 / 60 Weight: 231 lbs BMI: 33.1 kg/m?? HR: 77 Location: [facility] Rhythm: Normal Sinus Rhythm, With PVC Procedure Components: 2D imaging, Color Doppler, Spectral Doppler Indications: SOB (shortness of breath); Irregular heart beat; Fatigue, unspecified type Technical Quality: Adequate Contrast: None; Not available at site Final Conclusion 1. ??Normal left ventricular systolic function. Estimated left ventricular ejection fraction is 50-55%. Abnormal ventricular septal motion due to abnormal conduction. 2. Normal right ventricular size and systolic function. 3. Mild bi-atrial enlargement. 4. Valve changes consistent with age. No significant valvular heart disease. 5. Aortic sinus of Valsalva is normal in size (4.1 cm, ZScore = 0.95). Normal indexed ascending aorta dimension (4.3 cm, 1.9 cm/m??). There were no prior studies available for comparison. Estimated EF: 50-55% FINDINGS Left Ventricle Normal left ventricular chamber size. Normal left ventricular wall thickness. Normal left ventricular systolic function. Estimated left ventricular ejection fraction is 50-55%. Abnormal ventricular septal motion due to abnormal conduction. Diastolic Function Indeterminate left ventricular diastolic function. Right Ventricle Normal right ventricular chamber size. Normal right ventricular systolic function. Right ventricular systolic pressure cannot be estimated due to inability to detect peak tricuspid regurgitation Doppler velocity. Left Atrium Mild left atrial enlargement. Left atrial volume index is 37 ml/m??. Right Atrium Mild right atrial enlargement. Atrial Septum Hypermobile atrial septum. No evidence of inter-atrial shunt by color flow Doppler. Aortic Valve Trileaflet aortic valve. Aortic valve sclerosis without stenosis. No aortic valve regurgitation. Mitral Valve Mildly calcified mitral annulus. Mildly thickened mitral valve. No mitral valve stenosis. Trivial mitral valve regurgitation. Tricuspid Valve Normal tricuspid valve. Trivial tricuspid valve regurgitation. Pulmonic Valve Normal pulmonary valve. No pulmonary valve stenosis. No pulmonary valve regurgitation. Pericardium No pericardial effusion. Aorta Aortic sinus of Valsalva is normal in size (4.1 cm, ZScore = 0.95). Normal indexed ascending aorta dimension (4.3 cm, 1.9 cm/m??). Inferior Vena Cava Normal inferior vena cava with normal inspiratory collapse. Other Intravenous echo contrast agent was not available at [facility]. MEASUREMENTS ??(Male / Female) Normal Values 2D MEASUREMENTS AND LV FUNCTION IVS Diastolic Thickness ? 1.07 cm ? < 1.1 cm / < 1.0 cm LV Diastolic Diameter PLAX ?4.32 cm ? 4.2 - 5.9 / 3.9 - 5.3 cm LV Diastolic Diameter Index ? 1.94 cm/m?? LVPW Diastolic Thickness ?0.979 cm ?< 1.1 cm / < 1.0 cm LV Systolic Diameter PLAX ? 3.22 cm LV Systolic Diameter Index ?1.45 cm/m?? LVOT Diameter ? 2.32 cm LVOT Cardiac Output ? 6.4 l/min LVOT Cardiac Index ?2.77 l/min??m?? LVOT Stroke Volume ?83.1 ml Stroke Volume Index ? 35.9 ml/m?? LA Volume Index MOD BP ?36.6 ml/m?16 - 34 ml/m?? LV Mass ? 148 g LV Mass Index ? 65.2 g/m?? Sinuses of Valsalva Diameter(d) ?? 4.12 cm Ascending Aorta Diameter(s) ? 4.25 cm Ascending Aorta Index ? 1.91 cm/m?? DIASTOLOGY Mitral E Point Velocity ? 0.912 m/sec ? 0.70 - 1.02 m/sec Mitral A Point Velocity ? 1.09 m/sec ?0.06 - 1.06 m/sec Mitral E to A Ratio ? 0.837 ? 1.1 - 2.1 MV Deceleration Time ?226 msec ?167 - 231 msec LV E' Lateral Velocity ?0.0743 m/sec Mitral E to LV E' Lateral Ratio ?? 12.3 LV E' Septal Velocity ? 0.0523 m/sec Mitral E to LV E' Septal Ratio ?17.4 AORTIC VALVE AV Peak Velocity ?1.76 m/sec ?< 2.0 m/sec AV Peak Gradient ?12.4 mmHg AV Mean Gradient ?7.42 mmHg AV Velocity Time Integral ? 37.1 cm LVOT Peak Velocity ?0.84 m/sec LVOT Velocity Time Integral ? 19.7 cm AV Area Cont Eq vti ? 2.24 cm?? AV Area Cont Eq pk ?2.02 cm?? AV Dimensionless Index ?0.53 TRICUSPID VALVE AND ESTIMATED PRESSURES Right Atrial Pressure ? 3 mmHg HCM DATA LVOT MISTY (r) ?2.82 mmHg Aortic Root ZScore: 0.95 Jacinta Page MD (Electronically Signed) [facility] Accredited Site Final Date: 04 September 2023 14:52 ICD-10 Codes: R06.02; I49.9; R53.83 Procedure Note Jacinta Page MD - 09/04/2023 [facility] - [address], [place] [address] Main: Transthoracic Echo Report MIGUELINA PÉREZ Haliradha ID: [id number] Age: 78 : 1945 Ordering Provider:JOSE RICHARDSON Exam Date: 09/04/2023 10:28 Gender: M Security Intelligence Analyst: NAHOMY Height: 70.1 in BSA: 2.22 m?? BP: 126 / 60 Weight: 231 lbs BMI: 33.1 kg/m?? HR: 77 Location: [facility] Rhythm: Normal Sinus Rhythm, WithPVC Procedure Components: 2D imaging, Color Doppler, Spectral Doppler Indications: SOB (shortness of breath); Irregular heart beat; Fatigue,unspecified type Technical Quality: Adequate Contrast: None; Not available at site Final Conclusion 1. Normal left ventricular systolic function. Estimated left ventricularejection fraction is 50-55%. Abnormal ventricular septal motion due to abnormal conduction. 2. Normal right ventricular size and systolic function. 3. Mild bi-atrial enlargement. 4. Valve changes consistent with age. No significant valvular heartdisease. 5. Aortic sinus of Valsalva is normal in size (4.1 cm, ZScore = 0.95).Normal indexed ascending aorta dimension (4.3 cm, 1.9 cm/m??). There were no prior studies available for comparison. Estimated EF: 50-55% FINDINGS Left Ventricle Normal left ventricular chamber size. Normal leftventricular wall thickness. Normal left ventricular systolic function. Estimated left ventricular ejection fraction is 50-55%.Abnormal ventricular septal motion due to abnormal conduction. Diastolic Function Indeterminate left ventricular diastolic function. Right Ventricle Normal right ventricular chamber size. Normal rightventricular systolic function. Right ventricular systolic pressure cannot be estimated due to inability to detect peak tricuspidregurgitation Doppler velocity. Left Atrium Mild left atrial enlargement. Left atrial volume index is 37ml/m??. Right Atrium Mild right atrial enlargement. Atrial Septum Hypermobile atrial septum. No evidence of inter-atrialshunt by color flow Doppler. Aortic Valve Trileaflet aortic valve. Aortic valve sclerosis withoutstenosis. No aortic valve regurgitation. Mitral Valve Mildly calcified mitral annulus. Mildly thickened mitralvalve. No mitral valve stenosis. Trivial mitral valve regurgitation. Tricuspid Valve Normal tricuspid valve. Trivial tricuspid valveregurgitation. Pulmonic Valve Normal pulmonary valve. No pulmonary valve stenosis. Nopulmonary valve regurgitation. Pericardium No pericardial effusion. Aorta Aortic sinus of Valsalva is normal in size (4.1 cm, ZScore = 0.95).Normal indexed ascending aorta dimension (4.3 cm, 1.9 cm/m??). Inferior Vena Cava Normal inferior vena cava with normal inspiratorycollapse. Other Intravenous echo contrast agent was not available at [facility] site. MEASUREMENTS (Male / Female) Normal Values 2D MEASUREMENTS AND LV FUNCTION IVS Diastolic Thickness 1.07 cm < 1.1 cm / < 1.0cm LV Diastolic Diameter PLAX 4.32 cm 4.2 - 5.9 / 3.9 -5.3 cm LV Diastolic Diameter Index 1.94 cm/m?? LVPW Diastolic Thickness 0.979 cm < 1.1 cm / < 1.0cm LV Systolic Diameter PLAX 3.22 cm LV Systolic Diameter Index 1.45 cm/m?? LVOT Diameter 2.32 cm LVOT Cardiac Output 6.4 l/min LVOT Cardiac Index 2.77 l/min??m?? LVOT Stroke Volume 83.1 ml Stroke Volume Index 35.9 ml/m?? LA Volume Index MOD BP 36.6 ml/m?? 16 - 34 ml/m?? LV Mass 148 g LV Mass Index 65.2 g/m?? Sinuses of Valsalva Diameter(d) 4.12 cm Ascending Aorta Diameter(s) 4.25 cm Ascending Aorta Index 1.91 cm/m?? DIASTOLOGY Mitral E Point Velocity 0.912 m/sec 0.70 - 1.02m/sec Mitral A Point Velocity 1.09 m/sec 0.06 - 1.06m/sec Mitral E to A Ratio 0.837 1.1 - 2.1 MV Deceleration Time 226 msec 167 - 231 msec LV E' Lateral Velocity 0.0743 m/sec Mitral E to LV E' Lateral Ratio 12.3 LV E' Septal Velocity 0.0523 m/sec Mitral E to LV E' Septal Ratio 17.4 AORTIC VALVE AV Peak Velocity 1.76 m/sec < 2.0 m/sec AV Peak Gradient 12.4 mmHg AV Mean Gradient 7.42 mmHg AV Velocity Time Integral 37.1 cm LVOT Peak Velocity 0.84 m/sec LVOT Velocity Time Integral 19.7 cm AV Area Cont Eq vti 2.24 cm?? AV Area Cont Eq pk 2.02 cm?? AV Dimensionless Index 0.53 TRICUSPID VALVE AND ESTIMATED PRESSURES Right Atrial Pressure 3 mmHg HCM DATA LVOT MISTY (r) 2.82 mmHg Aortic Root ZScore: 0.95 Jacinta Page MD (Electronically Signed) [facility] Accredited Site Final Date: 04 September 2023 14:52 ICD-10 Codes: R06.02; I49.9; R53.83 Jose Richardson MD ECHO ORD * ZIO PATCH XT - weekly to monthly symptoms. (08/03/2023) Jose Richardson MD CARDIAC SERVICES ORD * EKG 12 LEAD (07/21/2023 3:01 PM MAGNETOMETER OPERATOR) Interpretation Sinus tachycardia with 1st degree A-V block Left axis deviation Right bundle branch block Abnormal ECG When compared with ECG of 18-JUN-2022 12:48, Premature atrial complexes are no longer Present Ventricular Rate 105 BPM Atrial Rate 105 BPM P-R Interval 224 ms QRS Duration 146 ms QT 374 ms QTc 494 ms P [place] 73 degrees R [place] -86 degrees T [place] 69 degrees 07/21/2023 3:01 PM MAGNETOMETER OPERATOR 07/21/2023 4:31 PM MAGNETOMETER OPERATOR Jose Richardson MD EKG ORD from Last 3 Months Advance Directives Documents on File Type Date Recorded Patient Diamond Sander Expl anation Healthcare Directive 05/21/2021 3:50 PM [...] Code Status Discussion: Reviewed Preferences Care Teams Certified Flex Endoscope Reprocessor Relationship Specialty Start Date End Date Post, Dave Velazquez MD PCP - General 06/02/10 Moshe Enciso MD [address] [place] [address] Endocrinology Endocrinology 01/04/18 [place] [address] [place], [place] [address] Surgery - Ophthalmology 03/22/18 [facility], [facility] [address] [place], [place] [address] 06/08/21 Murali Hoover, DPM [address] [facility] [place] [place] [address] Surgery - Podiatric 01/03/23
--- OUTSIDE RECORDS SUMMARY | 2023-09-05 15:18 | XMS_ITS | Clinical Summary ---
Author Name Unknown Organization [place] Address [address] [place] [address] Care Team Providers Care Ticket Writer Name Role Phone Post, Dave Wakefield Primary Care Provider [phone] Medications Medication Sig Dispensed Refills Start Date [...] Comments Blood Pressure 148/85 06/26/2018 5:[address] MIXER OPERATOR Pulse 90 06/26/2018 5:[address] MIXER OPERATOR Temperature 36.6 ??C (97.8 ??F) 06/26/2018 5:58 PM CS T Respiratory Rate 18 06/26/2018 5:[address] MIXER OPERATOR Oxygen Saturation 95% 06/26/2018 7:[address] MIXER OPERATOR Inhaled Oxygen Concentration - - Weight 112 kg (247 lb) 06/26/2018 5:[address] MIXER OPERATOR Height 180.3 cm (5' 11) 06/26/2018 5:[address] MIXER OPERATOR Body Mass Index 34.45 06/26/2018 5:[address] MIXER OPERATOR Plan of Treatment Health Maintenance Due Date [...] age to complete this topic Care Teams Ticket Writer Relationship Specialty Start Date End Date Post, Dave Wakefield PCP - General Internal Medicine 06/26/18
--- OUTSIDE RECORDS SUMMARY | 2023-09-05 15:18 | XMS_ITS | Referral Summary ---
Author Name Unknown Organization [place] Address [address] [place] [address] Care Team Providers Care Lockstitch Binder Name Role Phone Post, Dave Wakefield Primary Care Provider [phone] Medications Medication Sig Dispensed Refills Start Date [...] Comments Blood Pressure 148/85 06/26/2018 5:58 PM FILTER FILLER Pulse 90 06/26/2018 5:58 PM FILTER FILLER Temperature 36.6 ??C (97.8 ??F) 06/26/2018 5:58 PM CS T Respiratory Rate 18 06/26/2018 5:58 PM FILTER FILLER Oxygen Saturation 95% 06/26/2018 7:00 PM FILTER FILLER Inhaled Oxygen Concentration - - Weight 112 kg (247 lb) 06/26/2018 5:58 PM FILTER FILLER Height 180.3 cm (5' 11) 06/26/2018 5:58 PM FILTER FILLER Body Mass Index 34.45 06/26/2018 5:58 PM FILTER FILLER Plan of Treatment Not on file Care Teams Lockstitch Binder Relationship Specialty Start Date End Date Post, Dave Wakefield PCP - General Internal Medicine 06/26/18
--- OUTSIDE RECORDS SUMMARY | 2023-09-05 15:19 | XMS_ITS | Continuity of Care Document ---
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 and [facility] facilities. It does not include entries that were removed or entered in error. Problem Status Onset Date Problem Type Date of Resolution Comments Source Depressive Disorder NOS * (ICD-9-CM 311./300.4) Active Condition [facility] Diabetes mellitus (SNOMED CT 74178794) Active Condition [facility] Diabetic neuropathy Active Condition [facility] Foot Pain (ICD-9-CM 719.47) Active Condition Aug 26 10 Entered By: RASHMI WORLEY Comment: left 5th metatarsal fracture [facility] History of amputation of lesser toe Active Condition [facility] Hyperlipidemia (SNOMED CT 99265248) Active Condition [facility] Hyperuricemia Active Condition [facility] Osteopenia Active Condition [facility] Other Iatrogenic Hypotension Active Condition [facility]) Personal History of Alcoholism (ICD-9-CM V11.3) Active Condition [facility] Tobacco user (SNOMED CT 559453248) Active Condition [facility] Diagnosis: ICD-10-CM E11.42 Type 2 diabetes mellitus with diabetic polyneuropathy Active Diagnosis [facility] Diagnosis: ICD-10-CM E11.621 Type 2 diabetes mellitus with foot ulcer Active Diagnosis [facility] Diagnosis: ICD-10-CM Z77.29 Contact with and exposure to other hazardous substances Active Diagnosis [facility] Medications Combined list of outpatient medications from Department [facility] and [facility] facilities.Medications provided include 1) outpatient medications from the last 15 months, and 2) patient-reported medications. Medication Details Route Status Patient Instructions Prescription Expires Prescription Number Last Dispense Date Ordering Provider Order Date Source ASCORBIC ACID 500MG TAB TAKE ONE TABLET BY MOUTH TWICE A DAY ORALLY ACTIVE [facility] ASPIRIN 81MG TAB,EC TAKE ONE TABLET BY MOUTH EVERY DAY ORALLY ACTIVE JEFF CHOUDHARY ER A 2006 [facility] ATORVASTATI N CA 40MG TAB TAKE ONE TABLET BY MOUTH EVERY DAY FOR CHOLESTE ROL ORALLY ACTIVE 04/11/2024 [id number] 3 CHARLEE FISH A 2022 [facility] ATORVASTATI N CA 40MG TAB TAKE ONE TABLET BY MOUTH EVERY DAY FOR CHOLESTE ROL ORALLY DISCONT INUED 07/15/2023 [id number] 3 NAIDL,TOD D 2022 [facility] ATORVASTATI N CA 80MG TAB TAKE ONE-HALF TABLET BY MOUTH EVERY DAY FOR CHOLESTE ROL ORALLY DISCONT INUED (EDIT) 07/15/2023 [id number] 2 NAIDL,TOD D 2021 [facility] CHOLECALCIF QUINTIN TAB TAKE 5000 UNITS BY MOUTH EVERY DAY ORALLY ACTIVE CHARLEE FISH A 2022 [facility] COENZYME Q10 CAP/TAB TAKE 1 CAPSULE BY MOUTH EVERY DAY ORALLY ACTIVE FISHCHARLEE A 2022 [facility] CYANOCOBALA MIN 1000MCG TAB TAKE ONE TABLET BY MOUTH EVERY DAY ORALLY ACTIVE NAIDL,TOD D 2021 [facility] DICLOFENAC NA 1% GEL,TOP APPLY 4 GRAMS TOPICALL Y FOUR TIMES A DAY NEEDED FOR JOINT PAIN TOPICA LLY ACTIVE 03/22/2024 [id number] 3 CHARLEE FISH A 2022 [facility] FINASTERIDE 5MG TAB TAKE ONE TABLET BY MOUTH EVERY DAY FOR PROSTATE ORALLY ACTIVE 04/11/2024 [id number] 3 FISHCHARLEE A 2022 [facility] FINASTERIDE 5MG TAB TAKE ONE TABLET BY MOUTH EVERY DAY FOR PROSTATE ORALLY DISCONT INUED 07/13/2023 [id number] 3 FISHCHARLEE A 2021 [facility] FISH OIL 1000MG (500MG DHA/EPA) CAP,ORAL TAKE 1 CAPSULE BY MOUTH TWICE A DAY ORALLY ACTIVE JEFF CHOUDHARY ER A 2006 [facility] INSULIN,GLA RGINE,HUMAN 100 UNIT/ML INJ,SOLOSTA R,3ML INJECT 22 UNITS UNDER THE SKIN AT BEDTIME FOR DIABETES SUBCUT ANEOUS DISCONT INUED (EDIT) 09/30/2023 [id number] 3 NAIDL,TOD D 2022 [facility] INSULIN,GLA RGINE,HUMAN 100 UNIT/ML INJ,SOLOSTA R,3ML INJECT 24 UNITS UNDER THE SKIN AT BEDTIME FOR DIABETES SUBCUT ANEOUS DISCONT INUED (EDIT) 07/15/2023 [id number] 3 NAIDL,TOD D 2022 [facility] INSULIN,GLA RGINE-YFGN 100UNIT/ML INJ PEN,3ML INJECT 24 UNITS UNDER THE SKIN EVERY EVENING FOR DIABETES SUBCUT ANEOUS ACTIVE 08/29/2024 [id number] 4 NAIDL,TOD D 2023 [facility] INSULIN,GLA RGINE-YFGN 100UNIT/ML INJ PEN,3ML INJECT 22 UNITS UNDER THE SKIN AT BEDTIME FOR DIABETES SUBCUT ANEOUS DISCONT INUED (EDIT) 01/07/2024 [id number] 3 NAIDL,TOD D 2022 [facility] INSULIN,GLA RGINE-YFGN 100UNIT/ML INJ PEN,3ML INJECT 20 UNITS UNDER THE SKIN AT BEDTIME FOR DIABETES SUBCUT ANEOUS DISCONT INUED (EDIT) 12/08/2023 [id number] 3 NAIDL,TOD D 2022 [facility] INSULIN,GLA RGINE-YFGN 100UNIT/ML INJ PEN,3ML INJECT 18 UNITS UNDER THE SKIN AT BEDTIME FOR DIABETES SUBCUT ANEOUS DISCONT INUED (EDIT) 11/08/2023 [id number] 3 NAIDL,TOD D 2022 [facility] LIDOCAINE 4% CREAM,TOP APPLY MODERATE AMOUNT TOPICALL Y THREE TIMES A DAY FOR PAIN TOPICA LLY ACTIVE 03/22/2024 [id number] 3 CHARLEE FISH 2022 [facility] MAGNESIUM OXIDE 400MG TAB TAKE ONE TABLET BY MOUTH EVERY DAY ORALLY ACTIVE CHARLEE FISH 2022 [facility] MENTHOL/MET HYL SALICYLATE (10-15%) LOW CONC. CREAM,TOP APPLY THIN LAYER TOPICALL Y THREE TIMES A DAY FOR MUSCLE PAIN TOPICA LLY ACTIVE 03/22/2024 [id number] 3 CHARLEE FISH 2022 [facility] METFORMIN HCL 1000MG TAB TAKE ONE TABLET BY MOUTH TWICE A DAY FOR DIABETES ORALLY ACTIVE 04/11/2024 [id number] 3 CHARLEE FISH 2022 [facility] METFORMIN HCL 1000MG TAB TAKE ONE TABLET BY MOUTH TWICE A DAY FOR DIABETES ORALLY DISCONT INUED 07/15/2023 [id number] 3 NAIDL,TOD D 2022 [facility] MICONAZOLE NITRATE 2% CREAM,TOP APPLY THIN LAYER TOPICALL Y TWICE A DAY NEEDED FOR RASH TOPICA LLY DISCONT INUED 06/19/2023 [id number] 2 CHARLEE FISH 2021 [facility] OMEPRAZOLE 20MG CAP,EC TAKE ONE CAPSULE BY MOUTH EVERY DAY ON AN EMPTY STOMACH, AT LEAST 30 MINUTES PRIOR TO A MEAL FOR GERD ORALLY ACTIVE 03/22/2024 [id number] 3 CHARLEE FISH 2022 [facility] OMEPRAZOLE 20MG CAP,EC TAKE ONE CAPSULE BY MOUTH EVERY DAY ON AN EMPTY STOMACH, AT LEAST 30 MINUTES PRIOR TO A MEAL FOR GERD ORALLY DISCONT INUED 07/15/2023 [id number] 2 NAIDL,TOD D 2021 [facility] SEMAGLUTIDE 0.5MG/0.375 ML INJ,SOLN,PE N,1.5ML INJECT 0.5MG UNDER THE SKIN EVERY WEEK FOR DIABETES SUBCUT ANEOUS DISCONT INUED (EDIT) 07/15/2023 [id number] 3 NAIDL,TOD D 2022 [facility] SEMAGLUTIDE 1MG/0.75ML INJ,SOLN,PE N,3ML INJECT 1MG UNDER THE SKIN EVERY WEEK FOR DIABETES SUBCUT ANEOUS ACTIVE 11/08/2023 [id number] 4 NAIDL,TOD D 2022 [facility] TAMSULOSIN HCL 0.4MG CAP TAKE ONE CAPSULE BY MOUTH EVERY EVENING ORALLY ACTIVE 04/13/2024 [id number] 3 CHARLEE FISH 2022 [facility] TAMSULOSIN HCL 0.4MG CAP TAKE ONE CAPSULE BY MOUTH EVERY EVENING ORALLY DISCONT INUED 04/11/2024 [id number] 3 CHARLEE FISH A 2022 [facility] TAMSULOSIN HCL 0.4MG CAP TAKE ONE CAPSULE BY MOUTH EVERY EVENING ORALLY DISCONT INUED 08/04/2023 [id number] 3 CHARLEE FISH 2022 [facility] TAMSULOSIN HCL 0.4MG CAP TAKE ONE CAPSULE BY MOUTH EVERY MORNING ORALLY 07/18/2022 [id number] 2 CHARLEE FISH 2021 [facility] TURMERIC CAP/TAB TAKE 500 MG BY MOUTH TWICE A DAY ORALLY ACTIVE MATTY POWERS 2018 [facility] Allergies, Adverse Reactions, Alerts Combined list of allergies from Department of Defense and Veterans Affairs facilities. It does not include entries that were removed or entered in error. Substance Category Reaction Severity Reaction type Status Date Reported Comments Source VANCOMYCIN Propensity to adverse reactions to drug (finding) [place] active 8 [facility] Immunizations Combined list of available immunizations from the Department of Defense and Veterans Affairs facilities. Immunization Series Date Given Administered By Site Reaction Lot Number CVX Code Drug Advance Scout Status Comments Source ZOSTER RECOMBINANT 2 2019 187 complet ed [facility] INFLUENZA, INJECTABLE, QUADRIVALENT, PRESERVATIVE FREE 2019 150 complet ed [facility] ZOSTER RECOMBINANT 1 2019 187 complet [facility] INFLUENZA, HIGH-DOSE, QUADRIVALENT 2019 197 complet ed [facility] INFLUENZA, SEASONAL, INJECTABLE, PRESERVATIVE FREE 2017 140 complet ed [facility] INFLUENZA, INJECTABLE, QUADRIVALENT, PRESERVATIVE FREE 2017 150 complet ed [facility] INFLUENZA, INJECTABLE, QUADRIVALENT, PRESERVATIVE FREE 2015 150 complet ed [facility] TDAP 2015 115 complet ed [place] [facility] PNEUMOCOCCAL CONJUGATE PCV 13 2015 133 complet [facility] TD (ADULT), 5 LF TETANUS TOXOID, PRESERVATIVE FREE, ADSORBED 2015 113 complet ed [facility] INFLUENZA, INJECTABLE, QUADRIVALENT, PRESERVATIVE FREE 2013 150 complet [facility] PNEUMOCOCCAL POLYSACCHARID E PPV23 2010 33 complet [facility] INFLUENZA, UNSPECIFIED FORMULATION 2006 88 complet [facility] PNEUMOCOCCAL, UNSPECIFIED FORMULATION 2006 109 complet [facility] TD(ADULT) UNSPECIFIED FORMULATION 2006 NONE 139 complet ed [facility] TETANUS TOXOID, UNSPECIFIED FORMULATION 2006 NONE 112 complet [facility] Results Combined list of recent chemistry, [...] Aug 21, 2022 03:48 PM Reporting Lab: [facility] [address] Performing Lab: [facility] [address] [place] [facility] BASIC METABOLIC PANEL+MG CREATININE [MASS/VOLUM E] IN SERUM OR PLASMA 1.2 0.7 - 1.2 03/22 Specimen Type: PLASMA No comment entered. Ordering Provider: ME LEEROY FISH Report Released Date/Time: Aug 21, 2022 03:48 PM Reporting Lab: [facility] [address] Performing Lab: [facility] [address] [place] [facility] BASIC METABOLIC PANEL+MG UREA NITROGEN [MASS/VOLUM E] IN SERUM OR PLASMA 15 8 - 26 03/22 Specimen Type: PLASMA No comment entered. Ordering Provider: ME LEEROY FISH Report Released Date/Time: Aug 21, 2022 03:48 PM Reporting Lab: [facility] [address] Performing Lab: [facility] [address] [place] [facility] BASIC METABOLIC PANEL+MG GLUCOSE [MASS/VOLUM E] IN SERUM OR PLASMA 145 70 - 100 03/22 H Specimen Type: PLASMA No comment entered. Ordering Provider: ME LEEROY FISH Report Released Date/Time: Aug 21, 2022 03:48 PM Reporting Lab: [facility] [phone] Performing Lab: [facility] [address] [place] [facility] BASIC METABOLIC PANEL+MG SODIUM [MOLES/VOLU ME] IN SERUM OR PLASMA 138 136 - 145 03/22 Specimen Type: PLASMA No comment entered. Ordering Provider: ME LEEROY FIHS Report Released Date/Time: Aug 21, 2022 03:48 PM Reporting Lab: [facility] [address] Performing Lab: [facility] [address] [place] [facility] BASIC METABOLIC PANEL+MG POTASSIUM [MOLES/VOLU ME] IN SERUM OR PLASMA 4.5 3.5 - 5.1 03/22 Specimen Type: PLASMA No comment entered. Ordering Provider: ME LEEROY FISH Report Released Date/Time: Aug 21, 2022 03:48 PM Reporting Lab: [facility] [address] Performing Lab: [facility] [address] [place] [facility] BASIC METABOLIC PANEL+MG CHLORIDE [MOLES/VOLU ME] IN SERUM OR PLASMA 101 98 - 107 03/22 Specimen Type: PLASMA No comment entered. Ordering Provider: ME LEEROY FISH Report Released Date/Time: Aug 21, 2022 03:48 PM Reporting Lab: [facility] [address] Performing Lab: [facility] [address] [place] [facility] BASIC METABOLIC PANEL+MG CARBON DIOXIDE, TOTAL [MOLES/VOLU ME] IN SERUM OR PLASMA - 03/22 Specimen Type: PLASMA No comment entered. Ordering Provider: ME LEEROY FISH Report Released Date/Time: Aug 21, 2022 03:48 PM Reporting Lab: [facility] [address] Performing Lab: [facility] [address] [place] [facility] BASIC METABOLIC PANEL+MG CALCIUM [MASS/VOLUM E] IN SERUM OR PLASMA 10.0 8.4 - 10.2 03/22 Specimen Type: PLASMA No comment entered. Ordering Provider: ME LEEROY FISH Report Released Date/Time: Aug 21, 2022 03:48 PM Reporting Lab: [facility] [address] Performing Lab: [facility] [address] [place] [facility] BASIC METABOLIC PANEL+MG MAGNESIUM [MASS/VOLUM E] IN SERUM OR PLASMA 1.9 1.6 - 2.6 03/22 Specimen Type: PLASMA No comment entered. Ordering Provider: ME LEEROY FISH Report Released Date/Time: Aug 21, 2022 03:48 PM Reporting Lab: [facility] [address] Performing Lab: [facility] [address] [place] [facility] BASIC METABOLIC PANEL+MG ANION GAP IN SERUM OR PLASMA 10 5 - 15 03/22 Specimen Type: PLASMA No comment entered. Ordering Provider: ME LEEROY FISH Report Released Date/Time: Aug 21, 2022 03:48 PM Reporting Lab: [facility] [address] Performing Lab: [facility] [address] [place] [facility] BASIC METABOLIC PANEL+MG GLOMERULAR FILTRATION RATE/1.73 SQ M.PREDICTED [VOLUME RATE/AREA] IN SERUM, PLASMA OR BLOOD BY CREATININE- BASED FORMULA (CKD-EPI 2020) 63 60 03/22 Specimen Type: PLASMA No comment entered. Ordering Provider: ME LEEROY FISH Report Released Date/Time: Aug 21, 2022 03:48 PM Reporting Lab: [facility] [address] Performing Lab: [facility] [address] [place] [facility] HEMOGLOBI N A1C HEMOGLOBIN A1C/HEMOGLO BIN.TOTAL IN [...] December 22, 2021 03:46 PM Reporting Lab: [facility] [address] Performing Lab: [facility] [address] [place] [facility] BASIC METABOLIC PANEL+MG CREATININE [MASS/VOLUM E] IN SERUM OR PLASMA 0.9 0.7 - 1.2 08/18 Specimen Type: PLASMA No comment entered. Ordering Provider: ME LEEROY FISH Report Released Date/Time: December 22, 2021 03:46 PM Reporting Lab: [facility] [address] Performing Lab: [facility] [address] [place] [facility] BASIC METABOLIC PANEL+MG UREA NITROGEN [MASS/VOLUM E] IN SERUM OR PLASMA 12 8 - 26 08/18 Specimen Type: PLASMA No comment entered. Ordering Provider: ME LEEROY FISH Report Released Date/Time: December 22, 2021 03:46 PM Reporting Lab: [facility] [address] Performing Lab: [facility] [address] [place] [facility] BASIC METABOLIC PANEL+MG GLUCOSE [MASS/VOLUM E] IN SERUM OR PLASMA 184 70 - 100 08/18 H Specimen Type: PLASMA No comment entered. Ordering Provider: ME LEEROY FISH Report Released Date/Time: December 22, 2021 03:46 PM Reporting Lab: [facility] [address] Performing Lab: [facility] [address] [place] [facility] BASIC METABOLIC PANEL+MG SODIUM [MOLES/VOLU ME] IN SERUM OR PLASMA 137 136 - 145 08/18 Specimen Type: PLASMA No comment entered. Ordering Provider: ME LEEROY FISH Report Released Date/Time: December 22, 2021 03:46 PM Reporting Lab: [facility] [address] Performing Lab: [facility] [address] [place] [facility] BASIC METABOLIC PANEL+MG POTASSIUM [MOLES/VOLU ME] IN SERUM OR PLASMA 3.9 3.5 - 5.1 08/18 Specimen Type: PLASMA No comment entered. Ordering Provider: ME LEEROY FISH Report Released Date/Time: December 22, 2021 03:46 PM Reporting Lab: [facility] [address] Performing Lab: [facility] [address] [place] [facility] BASIC METABOLIC PANEL+MG CHLORIDE [MOLES/VOLU ME] IN SERUM OR PLASMA 102 98 - 107 08/18 Specimen Type: PLASMA No comment entered. Ordering Provider: ME LEEROY FISH Report Released Date/Time: December 22, 2021 03:46 PM Reporting Lab: [facility] [address] Performing Lab: [facility] [address] [place] [facility] BASIC METABOLIC PANEL+MG CARBON DIOXIDE, TOTAL [MOLES/VOLU ME] IN SERUM OR PLASMA 26 22 - 29 08/18 Specimen Type: PLASMA No comment entered. Ordering Provider: ME LEEROY FISH Report Released Date/Time: December 22, 2021 03:46 PM Reporting Lab: [facility] [address] Performing Lab: [facility] [address] [place] [facility] BASIC METABOLIC PANEL+MG CALCIUM [MASS/VOLUM E] IN SERUM OR PLASMA 9.4 8.4 - 10.2 08/18 Specimen Type: PLASMA No comment entered. Ordering Provider: ME LEEROY FISH Report Released Date/Time: December 22, 2021 03:46 PM Reporting Lab: [facility] [address] Performing Lab: [facility] [address] [place] [facility] BASIC METABOLIC PANEL+MG MAGNESIUM [MASS/VOLUM E] IN SERUM OR PLASMA 1.6 1.6 - 2.6 08/18 Specimen Type: PLASMA No comment entered. Ordering Provider: ME LEEROY FISH Report Released Date/Time: December 22, 2021 03:46 PM Reporting Lab: [facility] [address] Performing Lab: [facility] [address] [place] [facility] BASIC METABOLIC PANEL+MG ANION GAP IN SERUM OR PLASMA 9 5 - 15 08/18 Specimen Type: PLASMA No comment entered. Ordering Provider: ME LEEROY FISH Report Released Date/Time: December 22, 2021 03:46 PM Reporting Lab: [facility] [address] Performing Lab: [facility] [address] [place] [facility] BASIC METABOLIC PANEL+MG GLOMERULAR FILTRATION RATE/1.73 SQ M.PREDICTED [VOLUME RATE/AREA] IN SERUM, PLASMA OR BLOOD BY CREATININE- BASED FORMULA (CKD-EPI) 89 60 08/18 Specimen Type: PLASMA No comment entered. Ordering Provider: ME LEEROY IF[facility] Report Released Date/Time: December 22, 2021 03:46 PM Reporting Lab: [facility] [address] Performing Lab: [facility] [address] [place] [facility] BASIC METABOLIC PANEL+MG CREATININE [MASS/VOLUM E] IN SERUM OR PLASMA 1.1 0.7 - 1.2 12/22 Specimen Type: PLASMA No comment entered. Ordering Provider: ME LEEROY FISH Report Released Date/Time: Aug 03, 2021 01:53 PM Reporting Lab: [facility] [address] Performing Lab: [facility] [address] [place] [facility] BASIC METABOLIC PANEL+MG UREA NITROGEN [MASS/VOLUM E] IN SERUM OR PLASMA 15 8 - 26 12/22 Specimen Type: PLASMA No comment entered. Ordering Provider: ME LEEROY FISH Report Released Date/Time: Aug 03, 2021 01:53 PM Reporting Lab: [facility] [address] Performing Lab: [facility] [address] [place] [facility] BASIC METABOLIC PANEL+MG GLUCOSE [MASS/VOLUM E] IN SERUM OR PLASMA 174 74 - 100 12/22 H Specimen Type: PLASMA No comment entered. Ordering Provider: ME LEEROY FISH Report Released Date/Time: Aug 03, 2021 01:53 PM Reporting Lab: [facility] [address] Performing Lab: [facility] [address] [place] [facility] BASIC METABOLIC PANEL+MG SODIUM [MOLES/VOLU ME] IN SERUM OR PLASMA 141 136 - 145 12/22 Specimen Type: PLASMA No comment entered. Ordering Provider: ME LEEROY FISH Report Released Date/Time: Aug 03, 2021 01:53 PM Reporting Lab: [facility] [address] Performing Lab: [facility] [address] [place] [facility] BASIC METABOLIC PANEL+MG POTASSIUM [MOLES/VOLU ME] IN SERUM OR PLASMA 4.2 3.5 - 5.1 12/22 Specimen Type: PLASMA No comment entered. Ordering Provider: ME LEEROY FISH Report Released Date/Time: Aug 03, 2021 01:53 PM Reporting Lab: [facility] [address] Performing Lab: [facility] [address] [place] [facility] BASIC METABOLIC PANEL+MG CHLORIDE [MOLES/VOLU ME] IN SERUM OR PLASMA 101 98 - 107 12/22 Specimen Type: PLASMA No comment entered. Ordering Provider: ME LEEROY FISH Report Released Date/Time: Aug 03, 2021 01:53 PM Reporting Lab: [facility] [address] Performing Lab: [facility] [address] [place] [facility] BASIC METABOLIC PANEL+MG CARBON DIOXIDE, TOTAL [MOLES/VOLU ME] IN SERUM OR PLASMA 30 22 - 29 12/22 H Specimen Type: PLASMA No comment entered. Ordering Provider: ME LEEROY FISH Report Released Date/Time: Aug 03, 2021 01:53 PM Reporting Lab: [facility] [address] Performing Lab: [facility] [address] [place] [facility] BASIC METABOLIC PANEL+MG CALCIUM [MASS/VOLUM E] IN SERUM OR PLASMA 10.1 8.4 - 10.2 12/22 Specimen Type: PLASMA No comment entered. Ordering Provider: ME LEEROY FISH Report Released Date/Time: Aug 03, 2021 01:53 PM Reporting Lab: [facility] [address] Performing Lab: [facility] [address] [place] [facility] BASIC METABOLIC PANEL+MG MAGNESIUM [MASS/VOLUM E] IN SERUM OR PLASMA 1.8 1.6 - 2.6 12/22 Specimen Type: PLASMA No comment entered. Ordering Provider: ME LEEROY FISH Report Released Date/Time: Aug 03, 2021 01:53 PM Reporting Lab: [facility] [address] Performing Lab: [facility] [address] [place] [facility] BASIC METABOLIC PANEL+MG ANION GAP IN SERUM OR PLASMA 10 5 - 15 12/22 Specimen Type: PLASMA No comment entered. Ordering Provider: ME LEEROY FISH Report Released Date/Time: Aug 03, 2021 01:53 PM Reporting Lab: [facility] [address] Performing Lab: [facility] [address] [facility] BASIC METABOLIC PANEL+MG CREAT EGFR(CKD-EP I) 70 60 12/22 Specimen Type: PLASMA No comment entered. Ordering Provider: ME LEEROY FISH Report Released Date/Time: Aug 03, 2021 01:53 PM Reporting Lab: [facility] [address] Performing Lab: [facility] [address] [facility] HEMOGLOBI N A1C HEMOGLOBIN A1C/HEMOGLO BIN.TOTAL IN BLOOD 8.2 4.0 - 6.0 12/22 H Specimen Type: BLOOD No comment entered. Ordering Provider: ME LEEROY FISH Report Released Date/Time: Aug 03, 2021 01:53 PM Reporting Lab: [facility] [id number] Performing Lab: [facility] [id number] [facility] Vital Signs Combined list of inpatient and outpatient Vital Signs from Department of Defense and Veterans Affairs, ranging from 12 months to all on record, depending upon the facility. Vital Sign Value Date Comments Source SYSTOLIC BLOOD PRESSURE 108 03/22/2023 14:13:04 [facility] DIASTOLIC BLOOD PRESSURE 77 03/22/2023 14:13:04 [facility] PULSE OXIMETRY 95% 03/22/2023 14:13:04 [facility] 221 03/22/2023 14:13:04 [facility] BMI 31kg/m2 03/22/2023 14:13:04 [facility] PAIN 0 03/22/2023 14:13:04 [facility] HEIGHT 71 03/22/2023 14:13:04 [facility] TEMPERATURE 97.5 03/22/2023 14:13:04 [facility] PULSE 110 03/22/2023 14:13:04 [facility] RESPIRATION 18 03/22/2023 14:13:04 [facility] Encounters Combined list of: 1) 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 2) Encounters from the Department of [facility] facilities going back up to 280 months. Location Location Details Encounter Type Encounter Number Reason For Visit Attending Provider ADM Date DC Date Status Disposition Source [place] [facility] PHONE CALL 11-20 MIN [id number] Diagnos is: ICD-10- CM E11.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
NAIDL,KARI 03/09 [place] [facility] [place] [facility] HC PRO PHONE CALL 11-20 MIN [id number] Diagnos is: ICD-10- CM E11.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
NAIDL,KARI 04/25 [place] [facility] Out[facility] Encounter [id number] 04/30 [facility] [place] [facility] Outpatient Encounter [id number] 05/11 [facility] [place] [facility] Outpatient Encounter [id number] SA RA Ana RODRIGUEZ 05/13 [facility] [place] [facility] Outpatient Encounter [id number] 05/19 [place] [facility] [place] [facility] Outpatient Encounter [id number] 05/23 [facility] [place] [facility] Outpatient Encounter [id number] 05/25 [place] [facility] [place] [facility] Outpatient Encounter [id number] 05/27 [place] [facility] [place] [facility] Outpatient Encounter [id number] 05/30 [place] [facility] [place] [facility] Outpatient Encounter [id number] 06/06 [place] [facility] [place] [facility] Outpatient Encounter [id number] 06/14 [place] [facility] [place] [facility] Outpatient Encounter [id number] 06/16 [place] [facility] [place] [facility] Outpatient Encounter [id number] MICHAEL RA R 06/18 [place] [facility] [place] [facility] Outpatient Encounter [id number] Kimberly GRIFFIN M 07/12 [place] [facility] [place] [facility] HC PRO PHONE CALL 11-20 MIN [id number] Diagnos is: ICD-10- CM E11.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
NAIDL,KARI 07/14 [place] [facility] [place] [facility] Outpatient Encounter [id number] SATINDER SMITH W 07/21 [place] [facility] [place] [facility] OFFICE O/P EST MOD 30-39 MIN [id number] Diagnos is: ICD-10- CM E11.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
Rhiannon FISH A 08/18 [place] [facility] [place] [facility] Outpatient Encounter [id number] 08/21 [place] [facility] [place] [facility] HC PRO PHONE CALL 11-20 MIN [id number] Diagnos is: ICD-10- CM E11.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
NAIDL,KARI 08/29 [place] [facility] [place] [facility] HC PRO PHONE CALL 11-20 MIN [id number] Diagnos is: ICD-10- CM E11.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
NAIDL,KARI 09/29 [place] [facility] [place] [facility] HC PRO PHONE CALL 21-30 MIN [id number] Diagnos is: ICD-10- CM E11.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
NAIDL,KARI 11/07 [facility] HC PRO PHONE CALL 11-20 MIN [id number] Diagnos is: ICD-10- CM E11.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
NAIDL,KARI 12/07 [facility] Outpatient Encounter [id number] Diagnos is: ICD-10- CM Z77.29 Contact with and exposur e to other hazardo us substan monica<br/ > JEANINE,MATH ILDE J 12/27 [facility] Outpatient Encounter [id number] Diagnos is: ICD-10- CM Z77.29 Contact with and exposur e to other hazardo us substan monica<br/ > JEANINE,MATH ILDE J 12/27 [facility] HC PRO PHONE CALL 11-20 MIN [id number] Diagnos is: ICD-10- CM E11.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
NAIDL,KARI 01/06 [facility] Outpatient Encounter [id number] 03/10 [facility] HC PRO PHONE CALL 11-20 MIN [id number] Diagnos is: ICD-10- CM E11.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
NAIDL,KARI 03/14 [facility] OFFICE O/P EST LOW 20-29 MIN [id number] Diagnos is: ICD-10- CM E11.621 Type 2 diabete s mellitu s with foot ulcer<b r/> Rhiannon FISH 03/22 [facility] HC PRO PHONE CALL 21-30 MIN [id number] Diagnos is: ICD-10- CM E11.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
NAIDL,KARI 04/18 [facility] [place] [facility] HC PRO PHONE CALL 21-30 MIN [id number] Diagnos is: ICD-10- CM E11.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
NAIDL,KARI 07/11 [facility] [place] [facility] MTMS BY PHARM ADDL 15 MIN [id number] Diagnos is: ICD-10- CM E11.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
NAIDL,KARI 08/29 [facility] Social History Combined list of available smoking, tobacco, and other social history from Department of Defense and Veterans Affairs facilities. Social History Type Response Date Comment Sourc e Tobacco smoking status [facility]-TOBAC[facility] QUIT 15 YRS OR MORE 08/18/2022 [facility] [place] FORMER [place] 08/18/2022 [facility] [place] of [place] 05/03/2021 [facility] [place] of tobacco use [place] FOR[place] 04/21/2020 [facility] History of tobacco use FORMER TOBACCO US E >1Y <7Y 04/03/2018 [facility] History of tobacco use CURRENT TOBACCO USER 03/09/2007 [facility] Plan of Care List of future care activities from Department of Veterans Affairs facilities. Additional future care activities may be listed in the Assessment and Plan section. Date/Time Care Activity Care Activity Detail Facili ty 10/11/2023 AMBULATORY - NONE AMBULATORY - NONE [facility] Advance Directives List of completed, amended, or rescinded Advance Directives on record at Department of Veterans Affairs facilities. An actual copy of the Directive is not included. Date Advance Directive Provider Source 06/22/2021 ADVANCE DIRECTIVE DISCUSSION ALLYSON GRAF [facility] 06/22/2021 ADVANCE DIRECTIVE ALLYSON GRAF [facility] 03/09/2007 ADVANCE DIRECTIVE [facility]
--- OUTSIDE RECORDS SUMMARY | 2023-09-05 15:19 | XMS_ITS | Encounter Summary ---
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 Organization [facility] Address [address] [place] [address] Support Name Relationship Address Phone DOROTHY DUONG Next of Kin Unknown [phone] DOROTHY DUONG Emergency Contact Unknown Insurance Providers: [...] MEDIC ARE SUPPL EMENT Jul 31, 2018 [id number] R[place]NEY[place] ALEX PATIENT [place] MED[place] SUPP[place] MED[place] ARE SUPPL EMENT Jul 31, 2018 [id number] [phone] [place] [facility] (WNR) MEDICARE ADVANTAGE [facility] (WNR) Jul 31, 2017 [id number] [phone] RENBR[place]NEYK[place] ALEX PATIENT [place] SUPP[place] MEDIC ARE SUPPL EMENT Jul 31, 2018 [id number] [phone] RENBRITTNEY,KANE ALEX PATIENT [place] SUPP[place]MEN [place] MEDIC ARE SUPPL EMENT Jul 31, 2018 [id number] [phone] RODNEYBRITTNEYKANE ALEX PATIENT MEDICARE (WNR) MEDICARE (M) PART B May 31, 2011 PART B [id number] [phone] BETOKANE JOHNSON PATIENT MEDICARE (WNR) MEDICARE (M) PART A May 31, 2011 PART A [id number] [phone] KANE PÉREZ PATIENT Selected Encounter This section includes the information on record at [place] for the Encounter. Date/Time Encounter Type Encounter Description Reason Provider Source Aug 29, 2023 03:30 PM MTMS BY CELESTE PEARL 15 MIN TELEPHONE PRIMARY CARE ICD-10-CM E11.42 Type 2 diabetes mellitus with diabetic polyneuropathy KARI BRITO [facility] Encounter Template Text not used by [place] Assessments - Encounter Diagnoses This section includes the primary and secondary diagnoses documented for the Encounter. Date/Time Primary/Secondary Diagnosis Diagnosis Name Provider Source Aug 29, 2023 03:30 PM PRIMARY Type 2 diabetes mellitus with diabetic polyneuropathy KARI BRITO [facility] Plan of Treatment: Future Appointments (+ 6 months) and Future Tests (+/- 45 days) The Plan of Treatment section includes future care activities for the patient from all [place] treatmentfacilities. This section includes future appointments and future orders which are active, pending or scheduled. Future Appointments This section includes appointments that were scheduled to occur 6 months from the date of the Encounter, up to a maximum of 20 appointments. The data comes from all [place] treatment facilities. Appointment Date/Time Appointment Type Appointme nt Facility Name Oct 11, 2023 03:30 PM AMBULATORY - NONE [facility] Social History: Smoking Status (Most current) and Tobacco Use (All prior to encounter date) This section includes the most current, and the historical, smoking and tobacco- related health factors from the [place] facility where the Encounter took place. Current Smoking Status This section includes the most current smoking, or tobacco-related health factor, from the [place] facility where the Encounter took place. Date/Time Current Smoking Status Comment Diego peng Aug 18, 2022 08:30 AM [place]-TOBACCO QUIT 15 YRS OR MORE [facility] Tobacco Use History This section includes a history of the smoking, or tobacco-related health factors, that were collected on or before the date of the Encounter. The data comes from the [place] facility where the Encounter took place. Date/Time Smoking Status/Tobacco Use Comment F bo Aug 18, 2022 08:30 AM [place]TOBACCO QUIT 15 YRS OR MORE [facility] May 03, 2021 08:00 AM [place]-TOBACCO FORMER USER [facility] May 03, 2021 08:00 AM [place]TOBACCO QUIT 15 YRS OR MORE [facility] Apr 21, 2020 09:00 AM [place]-TOBACCO FORMER USER [facility] Apr 21, 2020 09:00 AM [place]TOBACCO QUIT 15 YRS OR MORE [facility] Apr 03, 2018 03:16 PM FORMER TOBACCO USE >1Y <7Y [facility] Mar 09, 2007 10:41 AM CURRENT TOBACCO USER [facility] Advance Directives: All historical and current Section Date Range: From patient's date of to the date document was created. This section includes ALL of a patient's completed or amended [place] Advance and Rescinded Directives. The entries below indicate that a directive exists for the patient, but an actual copy is not included with this document. The data comes from all [place] facilities. Date Advance Directives Provider Source Jun 22, 2021 ADVANCE DIRECTIVE DISCUSSION ALLYSON GRAF [facility] Jun 22, 2021 ADVANCE DIRECTIVE ALLYSON GRAF [facility] Mar 09, 2007 ADVANCE DIRECTIVE [facility] Encounter Notes: All associated encounter notes This section contains the clinical notes associated to the Encounter. Date/Time Encounter Note(s) Provider Source Aug 29, 2023 12:52 PM PHARMACY NOTE: LOCAL TITLE: PHARMACOTHERAPY-CLINICAL PHARMACY NOTE STANDARD TITLE: PHARMACY NOTE DATE OF NOTE: AUG 29, 2023@12:52 ENTRY DATE: AUG 29, 2023@12:52:10 AUTHOR: KARI BRITO EXP COSIGNER: URGENCY: STATUS: COMPLETED BACKGROUND: MIGUELINA PÉREZ is a 78 YO MALE contacted by phone for medication management, mainly for DM. PMH is significant for T2DM with chronic foot infections, GERD, and HLD. SUBJECTIVE: In brief, reports doing ok. Continues to struggle with a non-healing foot wound and has been working closely with a local retail stock clerk/software engineering specialist. He reports they are looking into the potential that it is infected and has an upcoming MRI. Regarding DM, notes readings are up bit. Lifestyle: Tobacco: Denies EtOH: Denies Food and Drink: Breakfast: egg/stoner/1 piece of toast on occasion a bkfst roll or milk/cereal Lunch: varies--sometimes skips or a sandwich or grapes/cheese, beef stew Evening meal: hearing instrument specialist -- sandwich or fruit/cheese Snacks: snickers, Allie kisses, more cookies lately Beverages: diet coke, water, coffee Activity: Activity is down due to his foot procedure, he uses a walker. Would like to use his e-bike, but unfortunately is unable to currently. Notes energy levels are low. ROS: (-) hypoglycemia symptoms --> Denies. Usually has symptoms. We have reviewed the rule of 15s. (-) hyperglycemia symptoms SMBG Readings: AM 08/29 151/ 08/28 15608/27 16908/26 16508/25 143/ 08/24 14408/23 15708/22 16608/21 16908/20 170/ 08/19 08/18 150/ 08/17 149/ ave: 157 ------Previous Readings-------- Jun f/u ave: 139 Mar f/u ave:124 Feb f/u ave: 138 Home BP Readings: Reports [...] 5) INSULIN,GLARGINE-YFGN 100UNIT/ML PEN 3ML INJECT 20 confirmed [...] MOUTH confirmed TWICE A DAY FOR DIABETES 9) OMEPRAZOLE 20MG EC CAP TAKE ONE CAPSULE BY MOUTH ACTIVE EVERY DAY ON AN EMPTY STOMACH, AT LEAST 30 MINUTES PRIOR TO A MEAL FOR GERD 10) SEMAGLUTIDE 1MG/0.75ML INJ PEN 3ML INJECT 1MG UNDER confirmed THE SKIN EVERY WEEK FOR DIABETES 11) [...] at goal. Recently reported SMBG values are up-suggest increasing his glargine. Given ongoing supply issues, will extend the dosing interval on his semaglutide. Encouraged checking some post- prandials to clarify trends. PLAN: Medications: -Increase glargine to 24 units qday -fine to adjust by 2 units every 3 days, targeting fastings in the 100- 150 range. -Move semaglutide to 1 mg q 10 DAY DOSING -Continue other meds, as above Monitoring: -Check BG once daily, varying times--including some post-prandials #Disease-Specific Med Rec: Completed today #Labs: Declines rechecking for now--will attempt to consolidate with other visits - Educated vet on indication/risks/benefits of new/changed medication. - Education provided on therapeutic nonpharmacologic management to achieve goals. - Vet advised of recent labs. - [place] verbalized understanding to all plans discussed today. Questions were answered to vet's satisfaction. Time spent: 21 minutes RTC: - 10/10 pharmD phone prefers to avoid [facility]-only has a cellphone /toby/ KARI BRITO PHARM D, BCPS Clinical Pharmacist Practitioner-[facility] Signed: 08/29/2023 15:56 KARI BRITO [facility]
--- OUTSIDE RECORDS SUMMARY | 2023-09-05 15:20 | XMS_ITS | Data Portability ---
Author Name Unknown Address [address] [place] [address] Phone [phone] [facility] Address [address] [place] [address] Care Team Providers Care Ebay Reseller Name Role Phone POST, SUE Primary Care [...] to efficacy (6+ months) and side effects [email or web address] Not available 06/16/2022 18:10:42 06/30/2022 06/30/2022 77M [...] of Hospitaliza tion for UTI. 2022 023 [facility], [address], [place], [address], 3 10:05:08 urinalysis, dipstick 2022 023 [facility], [address], [place], [address], 3 12:03:37 Referral None recorded. Procedures None recorded. Surgeries None recorded. Imaging None recorded. Medication Orders tamsulosin 0.4 mg capsule 2021 022 [email or web address] 2 [facility], [address] [facility] , [place], [address], 2 18:25:29 finasteride 5 mg tablet 2021 022 [email or web address] 2 [facility], [address], [place], [address], 2 18:25:29 Patient TargetsNo targets recorded. Patient Instructions Encounter Date Encounter Id Patient Instructions Last Modified By Organization Details Last Modified Time 11/04/2022 [id number] Pt has F/U appt with Dr Barrientos in [place] on 11/11/2022 @ 3:10pm to review UDS. Not available 10/19/2022 15:50:04 09/23/2022 [id number] Patient to call clinic with questions or concerns. Advised patient to increase water intake and to keep 4 week appointment for next catheter change. [email or web address] Not available 09/23/2022 13:22:30 08/03/2022 [id number] Will reach out t o [place] about patient [email or web address] Not available 08/03/2022 11:17:30 Reason for Referral None Reported. Results Created Date Observation Date Name Description Value Unit Range Abnormal Flag LastModifiedBy Organization Detail LastModifiedTime 11/05/1911/04/2022 URINE CULTU RE final report microb iology result s abnormal Not Available [facility] [address], [place], [address], 11/07/2022 10:05:08 11/05/19 23 11/04/2022 urina lysis , dipst ick Color-Status Straw Not Available [facility] [address], [place], [address], 11/04/2022 12:02:10 11/05/19 23 11/04/2022 urina lysis , dipst ick Clarity-Stat us Slight ly Cloudy Not Available [facility] [address], [place], [address], 11/04/2022 12:02:10 11/05/19 23 11/04/2022 urina lysis , dipst ick Glucose-Stat us 500 Not Available [facility] [address], [place], [address], 11/04/2022 12:02:10 11/05/19 23 11/04/2022 urina lysis , dipst ick Bilirubin-St atus Negati ve Not Available [facility] [address], [place], [address], 11/04/2022 12:02:10 11/05/19 23 11/04/2022 urina lysis , dipst ick Ketones-Stat us Negati ve Not Available [facility] [address], [place], [address], 11/04/2022 12:02:10 11/05/19 23 11/04/2022 urina lysis , dipst ick Sp [place]-Stat us 1.015 Not Available [facility] [address], [place], [address], 11/04/2022 12:02:10 11/05/19 23 11/04/2022 urina lysis , dipst ick pH-Status 6.5 Not Available [facility] [address], [place], [address], 11/04/2022 12:02:10 11/05/19 23 11/04/2022 urina lysis , dipst ick Protein-Stat us 5.0 Not Available [facility] [address], [place], [address], 11/04/2022 12:02:10 11/05/19 23 11/04/2022 urina lysis , dipst ick Urobilinogen -Status 0.2 Not Available [facility] [address], [place], [address], 11/04/2022 12:02:10 11/05/19 23 11/04/2022 urina lysis , dipst ick Nitrates-Sta tus positi ve Not Available [facility] [address], [place], [address], 11/04/2022 12:02:10 11/05/19 23 11/04/2022 urina lysis , dipst ick Blood-Status Large Not Available [facility] [address], [place], [address], 11/04/2022 12:02:10 11/05/19 23 11/04/2022 urina lysis , dipst ick Leuko-Status Large Not Available [facility] [address], [place], [address], 11/04/2022 12:02:10 11/05/19 23 11/04/2022 urina lysis , dipst ick Specimen Type Cathet erized Not Available [facility] [address], [place], [address], 11/04/2022 12:02:10 11/05/19 23 11/04/2022 urina lysis , dipst ick Performed by Jake ross Not Available [facility] [address], [place], [address], 11/04/2022 12:02:10 Result Notes None recorded. Problems Name Status Onset Date Resolution Date Notes Provider Name and Address Organization Details Recorded Time Retention of urine Active 3 Jenna song [facility] 10/21/2022 13:15:43 Problem Notes None recorded. Procedures Surgical History Date Name Laterality Status Provider Name and Address Organization Details Recorded Time 3 Fill and Pull/Voiding Trial/TOV completed OLMAN Chappell [facility] 12/09/2022 11:59:45 3 Urodynamic Studies completed Deyanira song [facility] 11/04/2022 12:19:38 3 Terry Catheter Insertion completed Deyanira song [facility] 11/04/2022 12:21:21 3 Urethral Catheter Change completed Jenna Harris null, [facility] 10/21/2022 13:18:32 3 Urethral Catheter Change completed Nenita Flores null, [facility] 09/23/2022 13:21:12 3 Terry Catheter Insertion completed Roula Beltran null, [facility] 08/03/2022 11:16:51 3 Fill and Pull/Voiding Trial/TOV completed Roula Beltran null, [facility] 08/03/2022 11:16:41 2 Cystoscopy- male completed Kristopher Barrientos MD, PHD [address] [place] [address],[address], [place], [address], [facility] 06/30/2022 09:37:30 2 Urethral Catheter Change completed Carlos Mix null, [facility] 06/30/2022 09:49:15 2 Terry Catheter Insertion completed Еленаarminda Josue null, [facility] 06/16/2022 15:03:22 2 Fill and Pull/Voiding Trial/TOV completed Roula Tony PA-C [address] [place] [address], [address], [facility] 06/16/2022 18:06:50 Cataract Surgery completed [place] Josue [facility] 06/16/2022 12:30:25 Orthopedic Surgery completed [place] Josue [facility] 06/16/2022 12:30:33 Imaging Results None [...] Updated DateTime 06/16/2022 180.34 cm 30 kg/m2 08833.36 g Juanito song [facility] 06/16/2022 12:27:07 Date Recorded Body height Provider Name an d Address Organization Details Last Updated DateTime 06/30/2022 180.34 cm Carlos song [facility] 06/30/2022 09:27:04 Date Recorded Body height Provider Name an d Address Organization Details Last Updated DateTime 09/23/2022 180.34 cm Nenita ford [facility] 09/23/2022 13:17:39 Date Recorded Body height Body mass index (BMI) Body weight Provider Name and Address Organization Details Last Updated DateTime 11/11/2022 180.34 cm 30 kg/m2 58566.36 g Amanda song [facility] 11/11/2022 16:25:51 Social History Question Answer Notes LastModified by Organizat ion Details LastModified Time Tobacco Smoking Status Former Smoker Juanito song [facility] 06/16/2022 12:29:38 What Is [...] ca rdiac disorder Medical History Condition Response Other N High Blood Pressure N Kidney Stones N Lung Disease N Depression N GERD/Acid Reflux N Sexually Transmitted Infection N Diabetes Y Bleeding Disorder N Cancer N High Cholesterol N Heart Disease Y Past Encounters Encounter ID Performer Location Encounter Start Date Encounter Closed Date Diagnosis/Indication [id number] Roula Tony PA-C [facility] [address] [place] [address] 06/16/2022 11:30:09 06/20/2022 08:36:10 Retention of urine Benign prostatic hyperplasia with outflow obstruction [id number] Kristopher Barrientos MD, PHD [facility] [address] [place] [address] 06/30/2022 08:46:23 07/04/2022 11:29:58 Retention of urine Benign prostatic hyperplasia with outflow obstruction [id number] Roula Beltran [facility] [address] [place] [address] 08/03/2022 10:27:16 08/05/2022 11:54:14 Retention of urine [id number] Nenitaaranza Flores [facility] [address] [place] [address] 09/23/2022 10:30:04 09/26/2022 14:37:37 [id number] Kristopher Barrientos MD, PHD [facility] [address] [place] [address] 11/04/2022 10:41:00 11/10/2022 13:37:32 Benign prostatic hyperplasia with outflow obstruction Retention of urine Microscopic hematuria [id number] Jenna Harris [facility] [address] [place] [address] 10/21/2022 11:27:55 10/24/2022 11:49:09 Retention of urine [id number] Kristopher Barrientos MD, PHD [facility] [address] [place] [address] 11/11/2022 16:25:28 11/17/2022 17:02:38 Retention of urine Benign prostatic hyperplasia with outflow obstruction [id number] Jenna Harris [facility] [address] [place] [address] 12/09/2022 10:56:01 12/12/2022 15:10:14 Retention of urine [...] [employer] Tom B Renaux [id number] Tom B Renaux 12/09/2022 2 [place] [id number] Tom B Renaux [id number] Tom B Renaux 11/11/2022 1 [place] [employer] Tom B Renaux [id number] Tom B Renaux 11/11/2022 2 [place] [id number] Tom B Renaux [id number] Tom B Renaux 11/04/2022 1 [place] [employer] Tom B Renaux [id number] Tom B Renaux 11/04/2022 2 [place] [id number] Tom B Renaux [id number] Tom B Renaux 10/21/2022 1 [place] [employer] Tom B Renaux [id number] Tom B Renaux 10/21/2022 2 [place] [id number] Tom B Renaux [id number] Tom B Renaux 09/23/2022 1 [place] [employer] Tom B Renaux [id number] Tom B Renaux 09/23/2022 2 [place] [id number] Tom B Renaux [id number] Tom B Renaux 08/03/2022 1 [place] [facility] [employer] Tom B Renaux [id number] Tom B Renaux 08/03/2022 2 [place] [id number] Tom B Renaux [id number] Tom B Renaux 06/30/2022 1 [place] [facility] Tom B Renaux [id number] Tom B Renaux 06/30/2022 2 [place] [id number] Tom B Renaux [id number] Tom B Renaux 06/16/2022 1 [place] [facility] Tom B Renaux [id number] Tom B Renaux 06/16/2022 2 [place] [id number] Tom B Renaux [id number] Tom B Renaux Notes Date Note Type Note Provider Name and Address Organization Details Recorded Time 06/16/2022 text/html HPI Notes: 77M w ith urinary retention. Here with . Recent hospitalization at [facility] from 04/30-05/30 for MSSA bacteremia [...] Tobacco: EtOH: FHx: Roula Chavo, PA-Cynthia [address], [place], [address], [facility] 06/16/2022 18:10:53 06/30/2022 text/html HPI Notes: 77M w ith urinary retention. Here for cysto. Saw LILIBETH Nix. Recent hospitalization at [facility] from 04/30-05/30 for MSSA bacteremia [...] EtOH: FHx: Kristopher Barrientos MD, PHD [address], [place], [address], [facility] 06/30/2022 14:06:37 09/23/2022 text/html HPI Notes: [...] in 4 weeks for next catheter change. Nenita song [facility] 09/23/2022 13:22:32 10/21/2022 text/html HPI Notes: Pt he re for catheter change Jenna song [facility] 10/21/2022 13:21:54 11/11/2022 text/html HPI Notes: 77M w ith urinary retention. Hospitalization at [facility] from 04/30-05/30 for MSSA bacteremia [...] coordinate their care. Kristopher Barrientos MD, PHD [address] [place] [address],[address], [place], [address], [facility] 11/11/2022 17:49:57 12/09/2022 text/html HPI Notes: Pt of Dr PALMER, here for TOV recommended at 11/11/22 visit Jenna song [facility] 12/09/2022 12:43:22
== END 2023-09-05 15:16 | disposition home or self-care (01) ==
LOC: WOUND 15:16
PROVIDERS: Visit Provider Family Medicine
DX: E11.621 Type 2 diabetes mellitus with foot ulcer (principal); I87.2 Venous insufficiency (chronic) (peripheral); L97.412 Non-pressure chronic ulcer of right heel and midfoot with fat layer exposed; Z79.84 Long term (current) use of oral hypoglycemic drugs
CPT/HCPCS: 11042

== ENCOUNTER 2023-09-12 08:17 | Outpatient (CLI) | payer MEDICARE, BC, SELFPAY ==
--- OUTSIDE RECORDS SUMMARY | 2023-09-12 08:20 | XMS_ITS | Clinical Summary ---
Author Name Unknown Organization [place] Address [address] [place] [address] Care Team Providers Care Principal Data Architect Name Role Phone Post, Dave Wakefield Primary Care Provider [phone] Medications Medication Sig Dispensed Refills Start Date [...] Comments Blood Pressure 148/85 06/26/2018 5:58 PM AN/SSN 2 4 OPERATOR Pulse 90 06/26/2018 5:58 PM AN/SSN 2 4 OPERATOR Temperature 36.6 ??C (97.8 ??F) 06/26/2018 5:58 PM CS T Respiratory Rate 18 06/26/2018 5:58 PM AN/SSN 2 4 OPERATOR Oxygen Saturation 95% 06/26/2018 7:00 PM AN/SSN 2 4 OPERATOR Inhaled Oxygen Concentration - - Weight 112 kg (247 lb) 06/26/2018 5:58 PM AN/SSN 2 4 OPERATOR Height 180.3 cm (5' 11) 06/26/2018 5:58 PM AN/SSN 2 4 OPERATOR Body Mass Index 34.45 06/26/2018 5:58 PM AN/SSN 2 4 OPERATOR Plan of Treatment Health Maintenance Due [...] age to complete this topic Care Teams Principal Data Architect Relationship Specialty Start Date End Date Post, Dave Wakefield PCP - General Internal Medicine 06/26/18
--- OUTSIDE RECORDS SUMMARY | 2023-09-12 08:20 | XMS_ITS | Referral Summary ---
Author Name Unknown Organization [place] Address [address] [place] [address] Care Team Providers Care Necktie Centralizing Machine Operator Name Role Phone Post, Dave Wakefield Primary Care Provider [phone] Medications Medication Sig Dispensed Refills Start Date [...] Comments Blood Pressure 148/85 06/26/2018 5:58 PM HOUSE MANAGER Pulse 90 06/26/2018 5:58 PM HOUSE MANAGER Temperature 36.6 ??C (97.8 ??F) 06/26/2018 5:58 PM CS T Respiratory Rate 18 06/26/2018 5:58 PM HOUSE MANAGER Oxygen Saturation 95% 06/26/2018 7:00 PM HOUSE MANAGER Inhaled Oxygen Concentration - - Weight 112 kg (247 lb) 06/26/2018 5:58 PM HOUSE MANAGER Height 180.3 cm (5' 11) 06/26/2018 5:58 PM HOUSE MANAGER Body Mass Index 34.45 06/26/2018 5:58 PM HOUSE MANAGER Plan of Treatment Not on file Care Teams Necktie Centralizing Machine Operator Relationship Specialty Start Date End Date Post, Dave Wakefield PCP - General Internal Medicine 06/26/18
--- OUTSIDE RECORDS SUMMARY | 2023-09-12 08:20 | XMS_ITS | Continuity of Care Document ---
Author Name [facility] Organization [facility] Care Team Providers Care Rn Disease Management Name Role Phone [facility] Unavailable Unavailable Problems Combined list of problems from [facility] and [facility] facilities. It does not include entries that were removed or entered in error. Problem Status Onset Date Problem Type Date of Resolution Comments Source Depressive Disorder NOS * (ICD-9-CM 311./300.4) Active Condition [facility] Diabetes mellitus (SNOMED CT 38199770) Active Condition [facility] Diabetic neuropathy Active Condition [facility] Foot Pain (ICD-9-CM 719.47) Active Condition Aug 26 10 Entered By: RASHMI WORLEY Comment: left [address]th met[address] [facility] History of amputation of lesser toe Active Condition [facility] Hyperlipidemia (SNOMED CT 97179456) Active Condition [facility] Hyperuricemia Active Condition [facility] Osteopenia Active Condition [place] Other Iatrogenic Hypotension Active Condition [facility]) Personal History of Alcoholism (ICD-9-CM V11.3) Active Condition [facility] Tobacco user (SNOMED CT 419578376) Active Condition [facility] Diagnosis: ICD-10-CM E11.42 Type 2 diabetes mellitus with diabetic polyneuropathy Active Diagnosis [facility] Diagnosis: ICD-10-CM E11.621 Type 2 diabetes mellitus with foot ulcer Active Diagnosis [facility] Diagnosis: ICD-10-CM Z77.29 Contact with and exposure to other hazardous substances Active Diagnosis [facility] Medications Combined list of outpatient medications from Department [facility] and [facility] facilities.Medications provided include 1) outpatient medications from the last 15 months, and 2) patient-reported medications. Medication Details Route Status Patient Instructions Prescription Expires Prescription Number Last Dispense Date Ordering Provider Order Date Source ASCORBIC ACID 500MG TAB TAKE ONE TABLET BY MOUTH TWICE A DAY ORALLY ACTIVE [facility] ASPIRIN 81MG TAB,EC TAKE ONE TABLET BY MOUTH EVERY DAY ORALLY ACTIVE JEFF CHOUDHARY ER A 2006 [place] ATORVASTATI N CA 40MG TAB TAKE ONE TABLET BY MOUTH EVERY DAY FOR CHOLESTE ROL ORALLY ACTIVE 04/11/2024 [id number] 3 CHARLEE FISH A 2022 [facility] ATORVASTATI N CA 40MG TAB TAKE ONE TABLET BY MOUTH EVERY DAY FOR CHOLESTE ROL ORALLY DISCONT INUED 07/15/2023 [id number] 3 NAIDL,TOD D 2022 [facility] ATORVASTATI N CA 80MG TAB TAKE ONE-HALF TABLET BY MOUTH EVERY DAY FOR CHOLESTE ROL ORALLY DISCONT INUED (EDIT) 07/15/2023 [id number] 2 NAIDL,TOD D 2021 [facility] CHOLECALCIF QUINTIN TAB TAKE 5000 UNITS BY MOUTH EVERY DAY ORALLY ACTIVE CHARLEE FISH A 2022 [facility] COENZYME Q10 CAP/TAB TAKE 1 CAPSULE BY MOUTH EVERY DAY ORALLY ACTIVE FISHCHARLEE A 2022 [facility] CYANOCOBALA MIN 1000MCG TAB TAKE ONE TABLET BY MOUTH EVERY DAY ORALLY ACTIVE NAIDL,TOD D 2021 [facility] DICLOFENAC NA 1% GEL,TOP APPLY 4 GRAMS TOPICALL Y FOUR TIMES A DAY NEEDED FOR JOINT PAIN TOPICA LLY ACTIVE 03/22/2024 [id number] 3 CHARLEE FISH A 2022 [facility] FINASTERIDE 5MG TAB TAKE ONE TABLET BY MOUTH EVERY DAY FOR PROSTATE ORALLY ACTIVE 04/11/2024 [id number] 3 FISHCHARLEE A 2022 [facility] FINASTERIDE 5MG TAB TAKE ONE TABLET BY MOUTH EVERY DAY FOR PROSTATE ORALLY DISCONT INUED 07/13/2023 [id number] 3 FISHCHARLEE A 2021 [facility] FISH OIL 1000MG (500MG DHA/EPA) CAP,ORAL TAKE 1 CAPSULE BY MOUTH TWICE A DAY ORALLY ACTIVE JEFF CHOUDHARY ER A 2006 [facility] INSULIN,GLA RGINE,HUMAN 100 UNIT/ML INJ,SOLOSTA R,3ML INJECT 22 UNITS UNDER THE SKIN AT BEDTIME FOR DIABETES SUBCUT ANEOUS DISCONT INUED (EDIT) 09/30/2023 [id number] 3 NAIDL,TOD D 2022 [facility] INSULIN,GLA RGINE,HUMAN 100 UNIT/ML INJ,SOLOSTA R,3ML INJECT 24 UNITS UNDER THE SKIN AT BEDTIME FOR DIABETES SUBCUT ANEOUS DISCONT INUED (EDIT) 07/15/2023 [id number] 3 NAIDL,TOD D 2022 [facility] INSULIN,GLA RGINE-YFGN 100UNIT/ML INJ PEN,3ML INJECT 24 UNITS UNDER THE SKIN EVERY EVENING FOR DIABETES SUBCUT ANEOUS ACTIVE 08/29/2024 [id number] 4 NAIDL,TOD D 2023 [facility] INSULIN,GLA RGINE-YFGN 100UNIT/ML INJ PEN,3ML INJECT 22 UNITS UNDER THE SKIN AT BEDTIME FOR DIABETES SUBCUT ANEOUS DISCONT INUED (EDIT) 01/07/2024 [id number] 3 NAIDL,TOD D 2022 [facility] INSULIN,GLA RGINE-YFGN 100UNIT/ML INJ PEN,3ML INJECT 20 UNITS UNDER THE SKIN AT BEDTIME FOR DIABETES SUBCUT ANEOUS DISCONT INUED (EDIT) 12/08/2023 [id number] 3 NAIDL,TOD D 2022 [facility] INSULIN,GLA RGINE-YFGN 100UNIT/ML INJ PEN,3ML INJECT 18 UNITS UNDER THE SKIN AT BEDTIME FOR DIABETES SUBCUT ANEOUS DISCONT INUED (EDIT) 11/08/2023 [id number] 3 NAIDL,TOD D 2022 [facility] LIDOCAINE 4% CREAM,TOP APPLY MODERATE AMOUNT TOPICALL Y THREE TIMES A DAY FOR PAIN TOPICA LLY ACTIVE 03/22/2024 [id number] 3 CHARLEE FISH 2022 [facility] MAGNESIUM OXIDE 400MG TAB TAKE ONE TABLET BY MOUTH EVERY DAY ORALLY ACTIVE CHARLEE FISH 2022 [facility] MENTHOL/MET HYL SALICYLATE (10-15%) LOW CONC. CREAM,TOP APPLY THIN LAYER TOPICALL Y THREE TIMES A DAY FOR MUSCLE PAIN TOPICA LLY ACTIVE 03/22/2024 [id number] 3 CHARLEE FISH 2022 [facility] METFORMIN HCL 1000MG TAB TAKE ONE TABLET BY MOUTH TWICE A DAY FOR DIABETES ORALLY ACTIVE 04/11/2024 [id number] 3 CHARLEE FISH 2022 [facility] METFORMIN HCL 1000MG TAB TAKE ONE TABLET BY MOUTH TWICE A DAY FOR DIABETES ORALLY DISCONT INUED 07/15/2023 [id number] 3 NAIDL,TOD D 2022 [facility] MICONAZOLE NITRATE 2% CREAM,TOP APPLY THIN LAYER TOPICALL Y TWICE A DAY NEEDED FOR RASH TOPICA LLY DISCONT INUED 06/19/2023 [id number] 2 CHARLEE FISH 2021 [facility] OMEPRAZOLE 20MG CAP,EC TAKE ONE CAPSULE BY MOUTH EVERY DAY ON AN EMPTY STOMACH, AT LEAST 30 MINUTES PRIOR TO A MEAL FOR GERD ORALLY ACTIVE 03/22/2024 [id number] 3 CHARLEE FISH 2022 [facility] OMEPRAZOLE 20MG CAP,EC TAKE ONE CAPSULE BY MOUTH EVERY DAY ON AN EMPTY STOMACH, AT LEAST 30 MINUTES PRIOR TO A MEAL FOR GERD ORALLY DISCONT INUED 07/15/2023 [id number] 2 NAIDL,TOD D 2021 [facility] SEMAGLUTIDE 0.5MG/0.375 ML INJ,SOLN,PE N,1.5ML INJECT 0.5MG UNDER THE SKIN EVERY WEEK FOR DIABETES SUBCUT ANEOUS DISCONT INUED (EDIT) 07/15/2023 [id number] 3 NAIDL,TOD D 2022 [facility] SEMAGLUTIDE 1MG/0.75ML INJ,SOLN,PE N,3ML INJECT 1MG UNDER THE SKIN EVERY WEEK FOR DIABETES SUBCUT ANEOUS ACTIVE 11/08/2023 [id number] 4 NAIDL,TOD D 2022 [facility] TAMSULOSIN HCL 0.4MG CAP TAKE ONE CAPSULE BY MOUTH EVERY EVENING ORALLY ACTIVE 04/13/2024 [id number] 4 CHARLEE FISH 2022 [facility] TAMSULOSIN HCL 0.4MG CAP TAKE ONE CAPSULE BY MOUTH EVERY EVENING ORALLY DISCONT INUED 04/11/2024 [id number] 3 CHARLEE FISH A 2022 [facility] TAMSULOSIN HCL 0.4MG CAP TAKE ONE CAPSULE BY MOUTH EVERY EVENING ORALLY DISCONT INUED 08/04/2023 [id number] 3 CHARLEE FISH 2022 [facility] TAMSULOSIN HCL 0.4MG CAP TAKE ONE CAPSULE BY MOUTH EVERY MORNING ORALLY 07/18/2022 [id number] 2 CHARLEE FISH 2021 [facility] TURMERIC CAP/TAB TAKE 500 MG BY MOUTH TWICE A DAY ORALLY ACTIVE MATTY POWERS 2018 [facility] Allergies, Adverse Reactions, Alerts Combined list of allergies from Department of Defense and Veterans Affairs facilities. It does not include entries that were removed or entered in error. Substance Category Reaction Severity Reaction type Status Date Reported Comments Source VANCOMYCIN Propensity to adverse reactions to drug (finding) [place] active 8 [facility] Immunizations Combined list of available immunizations from the Department of Defense and Veterans Affairs facilities. 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 Status Comments Source ZOSTER RECOMBINANT 2 2019 187 complet ed [facility] INFLUENZA, INJECTABLE, QUADRIVALENT, PRESERVATIVE FREE 2019 150 complet ed [facility] ZOSTER RECOMBINANT 1 2019 187 complet [facility] INFLUENZA, HIGH-DOSE, QUADRIVALENT 2019 197 complet ed [facility] INFLUENZA, SEASONAL, INJECTABLE, PRESERVATIVE FREE 2017 140 complet ed [facility] INFLUENZA, INJECTABLE, QUADRIVALENT, PRESERVATIVE FREE 2017 150 complet ed [facility] INFLUENZA, INJECTABLE, QUADRIVALENT, PRESERVATIVE FREE 2015 150 complet ed [facility] TDAP 2015 115 complet ed [place] [facility] PNEUMOCOCCAL CONJUGATE PCV 13 2015 133 complet [facility] TD (ADULT), 5 LF TETANUS TOXOID, PRESERVATIVE FREE, ADSORBED 2015 113 complet ed [facility] INFLUENZA, INJECTABLE, QUADRIVALENT, PRESERVATIVE FREE 2013 150 complet [facility] PNEUMOCOCCAL POLYSACCHARID E PPV23 2010 33 complet [facility] INFLUENZA, UNSPECIFIED FORMULATION 2006 88 complet [facility] PNEUMOCOCCAL, UNSPECIFIED FORMULATION 2006 109 complet [facility] TD(ADULT) UNSPECIFIED FORMULATION 2006 NONE 139 complet ed [facility] TETANUS TOXOID, UNSPECIFIED FORMULATION 2006 NONE 112 complet [facility] Results Combined list of recent chemistry, hematology [...] Aug 21, 2022 03:48 PM Reporting Lab: [facility] [address] Performing Lab: [facility] [address] [place] [facility] BASIC METABOLIC PANEL+MG CREATININE [MASS/VOLUM E] IN SERUM OR PLASMA 1.2 0.7 - 1.2 03/22 Specimen Type: PLASMA No comment entered. Ordering Provider: ME LEEROY FISH Report Released Date/Time: Aug 21, 2022 03:48 PM Reporting Lab: [facility] [address] Performing Lab: [facility] [address] [place] [facility] BASIC METABOLIC PANEL+MG UREA NITROGEN [MASS/VOLUM E] IN SERUM OR PLASMA 15 8 - 26 03/22 Specimen Type: PLASMA No comment entered. Ordering Provider: ME LEEROY FISH Report Released Date/Time: Aug 21, 2022 03:48 PM Reporting Lab: [facility] [address] Performing Lab: [facility] [address] [place] [facility] BASIC METABOLIC PANEL+MG GLUCOSE [MASS/VOLUM E] IN SERUM OR PLASMA 145 70 - 100 03/22 H Specimen Type: PLASMA No comment entered. Ordering Provider: ME LEEROY FISH Report Released Date/Time: Aug 21, 2022 03:48 PM Reporting Lab: [facility] [address] Performing Lab: [facility] [address] [place] [facility] BASIC METABOLIC PANEL+MG SODIUM [MOLES/VOLU ME] IN SERUM OR PLASMA 138 136 - 145 03/22 Specimen Type: PLASMA No comment entered. Ordering Provider: ME LEEROY FISH Report Released Date/Time: Aug 21, 2022 03:48 PM Reporting Lab: [facility] [address] Performing Lab: [facility] [address] [place] [facility] BASIC METABOLIC PANEL+MG POTASSIUM [MOLES/VOLU ME] IN SERUM OR PLASMA 4.5 3.5 - 5.1 03/22 Specimen Type: PLASMA No comment entered. Ordering Provider: ME LEEROY FISH Report Released Date/Time: Aug 21, 2022 03:48 PM Reporting Lab: [facility] [address] Performing Lab: [facility] [address] [place] [facility] BASIC METABOLIC PANEL+MG CHLORIDE [MOLES/VOLU ME] IN SERUM OR PLASMA 101 98 - 107 03/22 Specimen Type: PLASMA No comment entered. Ordering Provider: ME LEEROY FISH Report Released Date/Time: Aug 21, 2022 03:48 PM Reporting Lab: [facility] [address] Performing Lab: [facility] [address] [place] [facility] BASIC METABOLIC PANEL+MG CARBON DIOXIDE, TOTAL [MOLES/VOLU ME] IN SERUM OR PLASMA - 03/22 Specimen Type: PLASMA No comment entered. Ordering Provider: ME LEEROY FISH Report Released Date/Time: Aug 21, 2022 03:48 PM Reporting Lab: [facility] [address] Performing Lab: [facility] [address] [place] [facility] BASIC METABOLIC PANEL+MG CALCIUM [MASS/VOLUM E] IN SERUM OR PLASMA 10.0 8.4 - 10.2 03/22 Specimen Type: PLASMA No comment entered. Ordering Provider: ME LEEROY FISH Report Released Date/Time: Aug 21, 2022 03:48 PM Reporting Lab: [facility] [address] Performing Lab: [facility] [address] [place] [facility] BASIC METABOLIC PANEL+MG MAGNESIUM [MASS/VOLUM E] IN SERUM OR PLASMA 1.9 1.6 - 2.6 03/22 Specimen Type: PLASMA No comment entered. Ordering Provider: ME LEEROY FISH Report Released Date/Time: Aug 21, 2022 03:48 PM Reporting Lab: [facility] [address] Performing Lab: [facility] [address] [place] [facility] BASIC METABOLIC PANEL+MG ANION GAP IN SERUM OR PLASMA 10 5 - 15 03/22 Specimen Type: PLASMA No comment entered. Ordering Provider: ME LEEROY FISH Report Released Date/Time: Aug 21, 2022 03:48 PM Reporting Lab: [facility] [address] Performing Lab: [facility] [address] [place] [facility] BASIC METABOLIC PANEL+MG GLOMERULAR FILTRATION RATE/1.73 SQ M.PREDICTED [VOLUME RATE/AREA] IN SERUM, PLASMA OR BLOOD BY CREATININE- BASED FORMULA (CKD-EPI 2020) 63 60 03/22 Specimen Type: PLASMA No comment entered. Ordering Provider: ME LEEROY FISH Report Released Date/Time: Aug 21, 2022 03:48 PM Reporting Lab: [facility] [address] Performing Lab: [facility] [address] [place] [facility] HEMOGLOBI N A1C HEMOGLOBIN A1C/HEMOGLO BIN.TOTAL [...] December 22, 2021 03:46 PM Reporting Lab: [facility] [address] Performing Lab: [facility] [address] [place] [facility] BASIC METABOLIC PANEL+MG CREATININE [MASS/VOLUM E] IN SERUM OR PLASMA 0.9 0.7 - 1.2 08/18 Specimen Type: PLASMA No comment entered. Ordering Provider: ME LEEROY FISH Report Released Date/Time: December 22, 2021 03:46 PM Reporting Lab: [facility] [address] Performing Lab: [facility] [address] [place] [facility] BASIC METABOLIC PANEL+MG UREA NITROGEN [MASS/VOLUM E] IN SERUM OR PLASMA 12 8 - 26 08/18 Specimen Type: PLASMA No comment entered. Ordering Provider: ME LEEROY FISH Report Released Date/Time: December 22, 2021 03:46 PM Reporting Lab: [facility] [address] Performing Lab: [facility] [address] [place] [facility] BASIC METABOLIC PANEL+MG GLUCOSE [MASS/VOLUM E] IN SERUM OR PLASMA 184 70 - 100 08/18 H Specimen Type: PLASMA No comment entered. Ordering Provider: ME LEEROY FISH Report Released Date/Time: December 22, 2021 03:46 PM Reporting Lab: [facility] [address] Performing Lab: [facility] [address] [place] [facility] BASIC METABOLIC PANEL+MG SODIUM [MOLES/VOLU ME] IN SERUM OR PLASMA 137 136 - 145 08/18 Specimen Type: PLASMA No comment entered. Ordering Provider: ME LEEROY FISH Report Released Date/Time: December 22, 2021 03:46 PM Reporting Lab: [facility] [address] Performing Lab: [facility] [address] [place] [facility] BASIC METABOLIC PANEL+MG POTASSIUM [MOLES/VOLU ME] IN SERUM OR PLASMA 3.9 3.5 - 5.1 08/18 Specimen Type: PLASMA No comment entered. Ordering Provider: ME LEEROY FISH Report Released Date/Time: December 22, 2021 03:46 PM Reporting Lab: [facility] [address] Performing Lab: [facility] [address] [place] [facility] BASIC METABOLIC PANEL+MG CHLORIDE [MOLES/VOLU ME] IN SERUM OR PLASMA 102 98 - 107 08/18 Specimen Type: PLASMA No comment entered. Ordering Provider: ME LEEROY FISH Report Released Date/Time: December 22, 2021 03:46 PM Reporting Lab: [facility] [address] Performing Lab: [facility] [address] [place] [facility] BASIC METABOLIC PANEL+MG CARBON DIOXIDE, TOTAL [MOLES/VOLU ME] IN SERUM OR PLASMA 26 22 - 29 08/18 Specimen Type: PLASMA No comment entered. Ordering Provider: ME LEEROY FISH Report Released Date/Time: December 22, 2021 03:46 PM Reporting Lab: [facility] [address] Performing Lab: [facility] [address] [place] [facility] BASIC METABOLIC PANEL+MG CALCIUM [MASS/VOLUM E] IN SERUM OR PLASMA 9.4 8.4 - 10.2 08/18 Specimen Type: PLASMA No comment entered. Ordering Provider: ME LEEROY FISH Report Released Date/Time: December 22, 2021 03:46 PM Reporting Lab: [facility] [address] Performing Lab: [facility] [address] [place] [facility] BASIC METABOLIC PANEL+MG MAGNESIUM [MASS/VOLUM E] IN SERUM OR PLASMA 1.6 1.6 - 2.6 08/18 Specimen Type: PLASMA No comment entered. Ordering Provider: ME LEEROY FISH Report Released Date/Time: December 22, 2021 03:46 PM Reporting Lab: [facility] [address] Performing Lab: [facility] [address] [place] [facility] BASIC METABOLIC PANEL+MG ANION GAP IN SERUM OR PLASMA 9 5 - 15 08/18 Specimen Type: PLASMA No comment entered. Ordering Provider: ME LEEROY FISH Report Released Date/Time: December 22, 2021 03:46 PM Reporting Lab: [facility] [address] Performing Lab: [facility] [address] [place] [facility] BASIC METABOLIC PANEL+MG GLOMERULAR FILTRATION RATE/1.73 SQ M.PREDICTED [VOLUME RATE/AREA] IN SERUM, PLASMA OR BLOOD BY CREATININE- BASED FORMULA (CKD-EPI) 89 60 08/18 Specimen Type: PLASMA No comment entered. Ordering Provider: ME LEEROY FISH Report Released Date/Time: December 22, 2021 03:46 PM Reporting Lab: [facility] [address] Performing Lab: [facility] [address] [place] [facility] HEMOGLOBI N A1C HEMOGLOBIN A1C/HEMOGLO BIN.TOTAL IN BLOOD 8.2 4.0 - 6.0 12/22 H Specimen Type: BLOOD No comment entered. Ordering Provider: ME LEEROY FISH Report Released Date/Time: Aug 03, 2021 01:53 PM Reporting Lab: [facility] [address] Performing Lab: [facility] [address] [place] [facility] BASIC METABOLIC PANEL+MG CREATININE [MASS/VOLUM E] IN SERUM OR PLASMA 1.1 0.7 - 1.2 12/22 Specimen Type: PLASMA No comment entered. Ordering Provider: ME LEEROY FISH Report Released Date/Time: Aug 03, 2021 01:53 PM Reporting Lab: [facility] [address] Performing Lab: [facility] [address] [place] [facility] BASIC METABOLIC PANEL+MG UREA NITROGEN [MASS/VOLUM E] IN SERUM OR PLASMA 15 8 - 26 12/22 Specimen Type: PLASMA No comment entered. Ordering Provider: ME LEEROY FISH Report Released Date/Time: Aug 03, 2021 01:53 PM Reporting Lab: [facility] [address] Performing Lab: [facility] [address] [place] [facility] BASIC METABOLIC PANEL+MG GLUCOSE [MASS/VOLUM E] IN SERUM OR PLASMA 174 74 - 100 12/22 H Specimen Type: PLASMA No comment entered. Ordering Provider: ME LEEROY FISH Report Released Date/Time: Aug 03, 2021 01:53 PM Reporting Lab: [facility] [address] Performing Lab: [facility] [address] [place] [facility] BASIC METABOLIC PANEL+MG SODIUM [MOLES/VOLU ME] IN SERUM OR PLASMA 141 136 - 145 12/22 Specimen Type: PLASMA No comment entered. Ordering Provider: ME LEEROY FISH Report Released Date/Time: Aug 03, 2021 01:53 PM Reporting Lab: [facility] [address] Performing Lab: [facility] [address] [place] [facility] BASIC METABOLIC PANEL+MG POTASSIUM [MOLES/VOLU ME] IN SERUM OR PLASMA 4.2 3.5 - 5.1 12/22 Specimen Type: PLASMA No comment entered. Ordering Provider: ME LEEROY FISH Report Released Date/Time: Aug 03, 2021 01:53 PM Reporting Lab: [facility] [address] Performing Lab: [facility] [address] [place] [facility] BASIC METABOLIC PANEL+MG CHLORIDE [MOLES/VOLU ME] IN SERUM OR PLASMA 101 98 - 107 12/22 Specimen Type: PLASMA No comment entered. Ordering Provider: ME LEEROY FISH Report Released Date/Time: Aug 03, 2021 01:53 PM Reporting Lab: [facility] [address] Performing Lab: [facility] [address] [place] [facility] BASIC METABOLIC PANEL+MG CARBON DIOXIDE, TOTAL [MOLES/VOLU ME] IN SERUM OR PLASMA 30 22 - 29 12/22 H Specimen Type: PLASMA No comment entered. Ordering Provider: ME LEEROY FISH Report Released Date/Time: Aug 03, 2021 01:53 PM Reporting Lab: [facility] [address] Performing Lab: [facility] [address] [place] [facility] BASIC METABOLIC PANEL+MG CALCIUM [MASS/VOLUM E] IN SERUM OR PLASMA 10.1 8.4 - 10.2 12/22 Specimen Type: PLASMA No comment entered. Ordering Provider: ME LEEROY FISH Report Released Date/Time: Aug 03, 2021 01:53 PM Reporting Lab: [facility] [address] Performing Lab: [facility] [address] [place] [facility] BASIC METABOLIC PANEL+MG MAGNESIUM [MASS/VOLUM E] IN SERUM OR PLASMA 1.8 1.6 - 2.6 12/22 Specimen Type: PLASMA No comment entered. Ordering Provider: ME LEEROY FISH Report Released Date/Time: Aug 03, 2021 01:53 PM Reporting Lab: [facility] [address] Performing Lab: [facility] [address] [facility] BASIC METABOLIC PANEL+MG ANION GAP IN SERUM OR PLASMA 10 5 - 15 12/22 Specimen Type: PLASMA No comment entered. Ordering Provider: ME LEEROY FISH Report Released Date/Time: Aug 03, 2021 01:53 PM Reporting Lab: [facility] [address] Performing Lab: [facility] [address] [facility] BASIC METABOLIC PANEL+MG CREAT EGFR(CKD-EP I) 70 60 12/22 Specimen Type: PLASMA No comment entered. Ordering Provider: ME LEEROY FISH Report Released Date/Time: Aug 03, 2021 01:53 PM Reporting Lab: [facility] [address] Performing Lab: [facility] [address] [facility] Vital Signs Combined list of inpatient and outpatient Vital Signs from Department of Defense and Veterans Affairs, ranging from 12 months to all on record, depending upon the facility. Vital Sign Value Date Comments Source SYSTOLIC BLOOD PRESSURE 108 03/22/2023 14:13:04 [facility] DIASTOLIC BLOOD PRESSURE 77 03/22/2023 14:13:04 [facility] PULSE OXIMETRY 95% 03/22/2023 14:13:04 [facility] WEIGHT 221 03/22/2023 14:13:04 [facility] BMI 31kg/m2 03/22/2023 14:13:04 [facility] PAIN 0 03/22/2023 14:13:04 [facility] HEIGHT 71 03/22/2023 14:13:04 [facility] TEMPERATURE 97.5 03/22/2023 14:13:04 [facility] PULSE 110 03/22/2023 14:13:04 [facility] RESPIRATION 18 03/22/2023 14:13:04 [facility] Encounters Combined list of: 1) 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 2) Encounters from the Department of Defense facilities going back up to 280 months. Location Location Details Encounter Type Encounter Number Reason For Visit Attending Provider ADM Date DC Date Status Disposition Source [place] [facility] PHONE CALL 11-20 MIN [id number] Diagnos is: ICD-10- CM E11.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
DARYLKARI 04/25 [place] [facility] Out[facility] Encounter [id number] 04/30 [facility] [place] [facility] Outpatient Encounter [id number] 05/11 [place] [facility] [place] [facility] Outpatient Encounter [id number] SA ERICK RODRIGUEZ R 05/13 [place] [facility] [place] [facility] Outpatient Encounter [id number] 05/19 [place] [facility] [place] [facility] Outpatient Encounter [id number] 05/23 [place] [facility] [place] [facility] Outpatient Encounter [id number] 05/25 [place] [facility] [place] [facility] Outpatient Encounter [id number] 05/27 [place] [facility] [place] [facility] Outpatient Encounter [id number] 05/30 [place] [facility] [place] [facility] Outpatient Encounter [id number] 06/06 [place] [facility] [place] [facility] Outpatient Encounter [id number] 06/14 [place] [facility] [place] [facility] Outpatient Encounter [id number] 06/16 [place] [facility] [place] [facility] Outpatient Encounter [id number] SA MICHAEL RA R 06/18 [place] [facility] [place] [facility] Outpatient Encounter [id number] Kimberly GRIFFIN 07/12 [place] [facility] [place] [facility] HC PRO PHONE CALL 11-20 MIN [id number] Diagnos is: ICD-10- CM E11.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
NAIDL,KARI 07/14 [place] [facility] [place] [facility] Outpatient Encounter [id number] SANKETSATINDER Ortiz W 07/21 [place] [facility] [place] [facility] OFFICE O/P EST MOD 30-39 MIN [id number] Diagnos is: ICD-10- CM E11.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
Rhiannon FISH A 08/18 [place] [facility] [place] [facility] Outpatient Encounter [id number] 08/21 [place] [facility] [place] [facility] HC PRO PHONE CALL 11-20 MIN [id number] Diagnos is: ICD-10- CM E11.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
NAIDL,KARI 08/29 [place] [facility] [place] [facility] HC PRO PHONE CALL 11-20 MIN [id number] Diagnos is: ICD-10- CM E11.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
NAIDL,KARI 09/29 [place] [facility] [place] [facility] HC PRO PHONE CALL 21-30 MIN [id number] Diagnos is: ICD-10- CM E11.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
NAIDL,KARI 11/07 [place] [facility] [place] [facility] HC PRO PHONE CALL 11-20 MIN [id number] Diagnos is: ICD-10- CM E11.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
NAIDL,KARI 12/07 [facility] Out[facility] Encounter [id number] Diagnos is: ICD-10- CM Z77.29 Contact with and exposur e to other [facility]<br/ > JEANINEJESSICA 12/27 [facility] Outpatient Encounter [id number] Diagnos is: ICD-10- CM Z77.29 Contact with and exposur e to other [facility]<br/ > JEANINE,[facility]ICA [facility] HC PRO PHONE CALL 11-20 MIN [id number] Diagnos is: ICD-10- CM E11.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
NAIDL,KARI 01/06 [facility] Outpatient Encounter [id number] 03/10 [facility] HC PRO PHONE CALL 11-20 MIN [id number] Diagnos is: ICD-10- CM E11.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
NAIDL,KARI 03/14 [facility] OFFICE O/P EST LOW 20-29 MIN [id number] Diagnos is: ICD-10- CM E11.621 Type 2 diabete s mellitu s with foot ulcer<b r/> Rhiannon FISH A 03/22 [facility] HC PRO PHONE CALL 21-30 MIN [id number] Diagnos is: ICD-10- CM E11.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
NAIDL,KARI 04/18 [facility] HC PRO PHONE CALL 21-30 MIN [id number] Diagnos is: ICD-10- CM E11.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
NAIDL,KARI 07/11 [facility] MTMS BY PHARM ADDL 15 MIN [id number] Diagnos is: ICD-10- CM E11.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
NAIDL,KARI 08/29 [facility] Social History Combined list of available smoking, tobacco, and other social history from Department of Defense and Veterans Affairs facilities. Social History Type Response Date Comment Sourc e Tobacco smoking status NHIS [place]-TOBACCO FORMER USER 08/18/2022 [facility] of [facility] OR MORE 08/18/2022 [facility] of [facility] 5 YRS OR MORE 05/03/2021 [facility] History of tobacco use WI-TOBACCO FORMER USER 04/21/2020 [facility] History of tobacco use FORMER TOBACCO US E >1Y <7Y 04/03/2018 [facility] History of tobacco use CURRENT TOBACCO USER 03/09/2007 [facility] Plan of Care List of future care activities from Department of Veterans Affairs facilities. Additional future care activities may be listed in the Assessment and Plan section. Date/Time Care Activity Care Activity Detail Facili ty 10/11/2023 AMBULATORY - NONE AMBULATORY - NONE [facility] Advance Directives List of completed, amended, or rescinded Advance Directives on record at Department of Veterans Affairs facilities. An actual copy of the Directive is not included. Date Advance Directive Provider Source 06/22/2021 ADVANCE DIRECTIVE DISCUSSION ALLYSON GRAF [facility] 06/22/2021 ADVANCE DIRECTIVE ALLYSON GRAF [facility] 03/09/2007 ADVANCE DIRECTIVE SOLEDAD WOLFF [facility]
--- OUTSIDE RECORDS SUMMARY | 2023-09-12 08:20 | XMS_ITS | Clinical Summary ---
Author Name Unknown Organization [employer] [facility] Address [place], [place] [address] Care Team Providers Care Banking Supervisor Name Role Phone Post, Dave Velazquez MD Primary Care Provider Moshe Enciso MD Unavailable [phone] Arie Justin MD Unavailable [phone] [facility], [facility] Unavailable Murali Hoover DPM Unavailable [phone] Allergies No known active allergies Medications [...] to Care Guide Pamella Brennan Phone number [phone]. Alcohol abuse 06/02/2010 03/26/2019 Overview: Sober since 2001. Great success with AA. 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 06/17/2022 Encounters Date Type Department Care Team Description 09/04/2023 10:30 AM HR RECEPTIONIST Ancillary Procedure [facility] [address] [place] [address] 09/04/2023 Travel 07/21/2023 1:30 PM HR RECEPTIONIST Office Visit [facility] - [facility]leen Thompson [address] [place] [address] OLMAN Byrne [address] Jose Richardson MD CV General Cardiology Est (Overdue Annual F/U; Pt had an angiogram and was told he had an irregular heartbeat and needed to see cardiology) 07/21/2023 Telephone [facility] - [place] [address] [facility] [address] [place] [address] Jose Richardson MD Referral 07/21/2023 Orders Only [facility] - [facility] [address] [facility] [place] [address] Angelita Aquino <No scans attached> 07/21/2023 [...] Father bypass age 65 Cancer Mother Melanoma; Ranjan ntly living age 87 Good Health Sister [...] Comments Blood Pressure 126/60 07/21/2023 1:34 PM HR RECEPTIONIST Pulse 75 07/21/2023 1:34 PM HR RECEPTIONIST Temperature 36.7 ??C (98 ??F) 06/29/2022 8:43 AM HR RECEPTIONIST Respiratory Rate 18 06/29/2022 8:43 AM HR RECEPTIONIST Oxygen Saturation 96% 07/21/2023 1:34 PM HR RECEPTIONIST Inhaled Oxygen Concentration - - Weight 104.3 kg (230 lb) 07/21/2023 1:34 PM HR RECEPTIONIST Height 180.3 cm (5' 10.98) 07/21/2023 1:[address] Body Mass Index 32.09 07/21/2023 1:34 PM HR RECEPTIONIST Plan of Treatment Upcoming Encounters Date Type Department Care Team (Late st Contact Info) Description 10/06/2023 1:30 PM HR RECEPTIONIST Phone Office Visit [facility] [place] [address] [facility] [address] [place], [place] [address] Post, Dave Velazquez MD [address] [facility] [address] [place] [address] Health Maintenance Due Date Last Done Comments [...] 07/16/2020, 04/21/2020 Medical Devices Implanted Type Area Immunopathologist Device Identifier Shelf Expiration Date Model / Serial / Lot [id number] - [id number] Implanted:Qty: 1 on 09/20/2021 at [facility] Right: Foot [employer] AR-8725-4 4H / / Description:COMPRESSION FT S CREWS CANNULATED, 2.5 MICRO 44MM LOAD 4 7 [id number] Mar-1530p - [id number] Implanted:Qty: 1 on 09/20/2021 at [facility] Right: Foot [employer] 03/30/2025 AR-1530P- CP / / [id number] Description:FOREFOOT INTERNA L BRACE IMPLANT SYSTEM, PEEK Screw 4.14l19yi Bio Compositetenodesis Disp Clinical Administrative Coordinator Pk - [id number] Implanted:Qty: 1 on 09/20/2021 at [facility] Right: Foot [employer] 08/30/2022 AR-1547CD S / / [id number] Ancr Sut 1.3mm Dx Fibertak Suturetape 2 Ndl 26.2mm /2 Cir - [id number] Implanted:Qty: 1 on 09/20/2021 at [facility] Right: Foot [employer] 06/29/2026 AR-8990ST / / [id number] Explanted Type Area Immunopathologist Device Identifier Shelf Expiration Date Model / Serial / Lot Wire Kirs .[id number] Smooth6/Pk Depuy/Héctor - [id number] Explanted:Qty: 1 on 09/20/2021 at [facility] Right: Foot [employer] [id number] / / Description:LOAD 4 8 [id number] [facility]-8737-40 - [id number] Explanted:Qty: 1 on 09/20/2021 at [facility] Right: Foot [employer] AR-8737-40 / / Description:2.5 MICRO COMPRE SSION FT DRILLS AND DISPOSABLES, GUIDEWIRE W TROCAR TIP, THREADED, 0.34 IN (.86MM) LOAD 4 7 [id number] Procedures Procedure Name Priority Date/Time Associated Diagnosis Comments ECHO TTE COMPLETE WO CONTRAST Routine 09/04/2023 11:00 AM HR RECEPTIONIST SOB (shortness of breath) Fatigue, unspecified type Irregular heart beat EXTENDED HOLTER Routine 08/03/2023 SOB (shortness of breath) Fatigue, unspecified type Irregular heart beat EKG 12 LEAD Routine 07/21/2023 3:01 PM HR RECEPTIONIST SOB (shortness of breath) Fatigue, unspecified type Irregular heart beat from Last 3 Months Results * ECHO TTE COMPLETE WO CONTRAST (09/04/2023 11:00 AM HR RECEPTIONIST) EJECTION FRACTION 50-55% PROSOLV Anatomical Region Laterality Modality Ultrasound 09/04/2023 10:2 8 AM HR RECEPTIONIST Narrative 09/04/2023 2:53 PM HR RECEPTIONIST [address], [place] [address] Main: ? Transthoracic Echo Report MIGUELINA PÉREZ ID: [id number] Age: 78 : 1945 Ordering Provider: JOSE RICHARDSON Exam Date: 09/04/2023 10:28 Gender: Rhiannon Landscape Architect: NAHOMY Height: 70.1 in BSA: 2.22 m?? BP: 126 / 60 Weight: 231 lbs BMI: 33.1 kg/m?? HR: 77 Location: [facility] Rhythm: Normal Sinus Rhythm, With PVC Procedure [...] ZScore: 0.95 Jacinta Page MD (Electronically Signed) [facility] Final Date: 04 September 2023 14:52 ICD-10 Codes: R06.02; I49.9; R53.83 Procedure Note Jacinta Page MD - 09/04/2023 [facility] - [address], [place] [address] Main: Transthoracic Echo Report MIGUELINA PÉREZ Tomy ID: [id number] Age: 78 : 1945 Ordering Provider:JOSE RICHARDSON Exam Date: 09/04/2023 10:28 Gender: M Landscape Architect: NAHOMY Height: 70.1 in BSA: 2.22 m?? BP: 126 / 60 Weight: 231 lbs BMI: 33.1 kg/m?? HR: 77 Location: [facility] Rhythm: Normal Sinus Rhythm, WithPVC Procedure Components: [...] echo contrast agent was not available at [facility] site. MEASUREMENTS (Male / Female) Normal Values [...] ZScore: 0.95 Jacinta Page MD (Electronically Signed) [facility] Accredited Site Final Date: 04 September 2023 14:52 ICD-10 Codes: R06.02; I49.9; R53.83 Jose Richardson MD ECHO ORD * ZIO PATCH XT - weekly to monthly symptoms. (08/03/2023) Jose Richardson MD CARDIAC SERVICES ORD * EKG 12 LEAD (07/21/2023 3:01 PM HR RECEPTIONIST) Interpretation Sinus tachycardia with 1st degree A-V block Left axis deviation Right bundle branch block Abnormal ECG When compared with ECG of 18-JUN-2022 12:48, Premature atrial complexes are no longer Present Ventricular Rate 105 BPM Atrial Rate 105 BPM P-R Interval 224 ms QRS Duration 146 ms QT 374 ms QTc 494 ms P Lovilia 73 degrees R Lovilia -86 degrees T Lovilia 69 degrees 07/21/2023 3:01 PM HR RECEPTIONIST 07/21/2023 4:31 PM HR RECEPTIONIST Jose Richardson MD EKG ORD from Last 3 Months Advance Directives Documents on File Type Date Recorded Patient Chip Tester Expl anation Healthcare Directive 05/21/2021 3:50 PM [...] Code Status Discussion: Reviewed Preferences Care Teams Banking Supervisor Relationship Specialty Start Date End Date Post, Dave Velazquez MD PCP - General 06/02/10 Moshe Enciso MD [address] [place] [address] Endocrinology Endocrinology 01/04/18 [place] [address] [place], [place] [address] Surgery - Ophthalmology 03/22/18 [facility], [facility] [address] [place], [place] [address] 06/08/21 Murali Hoover DPM [address] [place] [address] Surgery - Podiatric 01/03/23
--- OUTSIDE RECORDS SUMMARY | 2023-09-12 08:21 | XMS_ITS | Data Portability ---
Author Name Unknown Address [address] [place] [address] Phone [phone] [facility] Address [address] [place] [address] Care Team Providers Care Retail Sales Advisor Name Role Phone POST, SUE Primary Care [...] to efficacy (6+ months) and side effects [email or web address] Not available 06/16/2022 18:10:42 06/30/2022 06/30/2022 77M [...] of Hospitaliza tion for UTI. [address] [facility], [address], [place], [address], 3 10:05:08 urinalysis, dipstick 2022 023 [facility], [address], [place], [address], 3 12:03:37 Referral None recorded. Procedures None recorded. Surgeries None recorded. Imaging None recorded. Medication Orders tamsulosin 0.4 mg capsule 2021 022 [email or web address] 2 [facility], [address] , [place], [address], 2 18:25:29 finasteride 5 mg tablet 2021 022 [email or web address] 2 [facility], [address], [place], [address], 2 18:25:29 Patient TargetsNo targets recorded. Patient Instructions Encounter Date Encounter Id Patient Instructions Last Modified By Organization Details Last Modified Time 11/04/2022 [id number] Pt has F/U appt with Dr Barrientos in [place] on 11/11/2022 @ 3:10pm to review UDS. Not available 10/19/2022 15:50:04 09/23/2022 [id number] Patient to call clinic with questions or concerns. Advised patient to increase water intake and to keep 4 week appointment for next catheter change. [email or web address] Not available 09/23/2022 13:22:30 08/03/2022 [id number] Will reach out t o [place] about patient [email or web address] Not available 08/03/2022 11:17:30 Reason for Referral None Reported. Results Created Date Observation Date Name Description Value Unit Range Abnormal Flag LastModifiedBy Organization Detail LastModifiedTime 11/05/1911/04/2022 URINE CULTU RE final report microb iology result s abnormal Not Available [facility] [address], [place], [address], 11/07/2022 10:05:08 11/05/19 23 11/04/2022 urina lysis , dipst ick Color-Status Straw Not Available [facility] [address], [place], [address], 11/04/2022 12:02:10 11/05/19 23 11/04/2022 urina lysis , dipst ick Clarity-Stat us Slight ly Cloudy Not Available [facility] [address], [place], [address], 11/04/2022 12:02:10 11/05/19 23 11/04/2022 urina lysis , dipst ick Glucose-Stat us 500 Not Available [facility] [address], [place], [address], 11/04/2022 12:02:10 11/05/19 23 11/04/2022 urina lysis , dipst ick Bilirubin-St atus Negati ve Not Available [facility] [address], [place], [address], 11/04/2022 12:02:10 11/05/19 23 11/04/2022 urina lysis , dipst ick Ketones-Stat us Negati ve Not Available [facility] [address], [place], [address], 11/04/2022 12:02:10 11/05/19 23 11/04/2022 urina lysis , dipst ick Sp Sandwich-Stat us 1.015 Not Available [facility] [address], [place], [address], 11/04/2022 12:02:10 11/05/19 23 11/04/2022 urina lysis , dipst ick pH-Status 6.5 Not Available [facility] [address], [place], [address], 11/04/2022 12:02:10 11/05/19 23 11/04/2022 urina lysis , dipst ick Protein-Stat us 5.0 Not Available [facility] [address], [place], [address], 11/04/2022 12:02:10 11/05/19 23 11/04/2022 urina lysis , dipst ick Urobilinogen -Status 0.2 Not Available [facility] [address], [place], [address], 11/04/2022 12:02:10 11/05/19 23 11/04/2022 urina lysis , dipst ick Nitrates-Sta tus positi ve Not Available [facility] [address], [place], [address], 11/04/2022 12:02:10 11/05/19 23 11/04/2022 urina lysis , dipst ick Blood-Status Large Not Available [facility] [address], [place], [address], 11/04/2022 12:02:10 11/05/19 23 11/04/2022 urina lysis , dipst ick Leuko-Status Large Not Available [facility] [address], [place], [address], 11/04/2022 12:02:10 11/05/19 23 11/04/2022 urina lysis , dipst ick Specimen Type Cathet erized Not Available [facility] [address], [place], [address], 11/04/2022 12:02:10 11/05/19 23 11/04/2022 urina lysis , dipst ick Performed by Jake ross Not Available [facility] [address], [place], [address], 11/04/2022 12:02:10 Result Notes None recorded. Problems Name Status Onset Date Resolution Date Notes Provider Name and Address Organization Details Recorded Time Retention of urine Active 3 Jenna song [facility] 10/21/2022 13:15:43 Problem Notes None recorded. Procedures Surgical History Date Name Laterality Status Provider Name and Address Organization Details Recorded Time 3 Fill and Pull/Voiding Trial/TOV completed OLMAN Chappell [facility] 12/09/2022 11:59:45 3 Urodynamic Studies completed Deyanira song [facility] 11/04/2022 12:19:38 3 Terry Catheter Insertion completed Deyanira song [facility] 11/04/2022 12:21:21 3 Urethral Catheter Change completed Jenna Harris null, [facility] 10/21/2022 13:18:32 3 Urethral Catheter Change completed Nenita Flores null, [facility] 09/23/2022 13:21:12 3 Terry Catheter Insertion completed Roula Beltran null, [facility] 08/03/2022 11:16:51 3 Fill and Pull/Voiding Trial/TOV completed Roula Beltran null, [facility] 08/03/2022 11:16:41 2 Cystoscopy- male completed Kristopher Barrientos MD, PHD [address] [place] [address],[address], [address], [facility] 06/30/2022 09:37:30 2 Urethral Catheter Change completed Carlos Mix null, [facility] 06/30/2022 09:49:15 2 Terry Catheter Insertion completed Еленаarminda Josue null, [facility] 06/16/2022 15:03:22 2 Fill and Pull/Voiding Trial/TOV completed Roula Tony PA-C [address] [place] [address], [address], [facility] 06/16/2022 18:06:50 Cataract Surgery completed Westonarminda Josue [facility] 06/16/2022 12:30:25 Orthopedic Surgery completed Westonarminda Josue [facility] 06/16/2022 12:30:33 Imaging Results None recorded. [...] Updated DateTime 06/16/2022 180.34 cm 30 kg/m2 81071.36 g Juanito song [facility] 06/16/2022 12:27:07 Date Recorded Body height Provider Name an d Address Organization Details Last Updated DateTime 06/30/2022 180.34 cm Carlos song [facility] 06/30/2022 09:27:04 Date Recorded Body height Provider Name an d Address Organization Details Last Updated DateTime 09/23/2022 180.34 cm Nenita ford [facility] 09/23/2022 13:17:39 Date Recorded Body height Body mass index (BMI) Body weight Provider Name and Address Organization Details Last Updated DateTime 11/11/2022 180.34 cm 30 kg/m2 05031.36 g Amanda song [facility] 11/11/2022 16:25:51 Social History Question Answer Notes LastModified by Organizat ion Details LastModified Time Tobacco Smoking Status Former Smoker Juanito song [facility] 06/16/2022 12:29:38 What Is Your Level [...] Reflux N Heart Disease Y Cancer N Lung Disease N Depression N Past Encounters Encounter ID Performer Location Encounter Start Date Encounter Closed Date Diagnosis/Indication [id number] Roula Tony PA-C [facility] [address] [place] [address] 06/16/2022 11:30:09 06/20/2022 08:36:10 Retention of urine Benign prostatic hyperplasia with outflow obstruction [id number] Kristopher Barrientos MD, PHD [facility] [address] [place] [address] 06/30/2022 08:46:23 07/04/2022 11:29:58 Retention of urine Benign prostatic hyperplasia with outflow obstruction [id number] Roula Beltran [facility] [address] [place] [address] 08/03/2022 10:27:16 08/05/2022 11:54:14 Retention of urine [id number] Nenitaaranza Flores [facility] [address] [place] [address] 09/23/2022 10:30:04 09/26/2022 14:37:37 [id number] Kristopher Barrientos MD, PHD [facility] [address] [place] [address] 11/04/2022 10:41:00 11/10/2022 13:37:32 Benign prostatic hyperplasia with outflow obstruction Retention of urine Microscopic hematuria [id number] Jenna Harris [facility] [address] [place] [address] 10/21/2022 11:27:55 10/24/2022 11:49:09 Retention of urine [id number] Kristopher Barrientos MD, PHD [facility] [address] [place] [address] 11/11/2022 16:25:28 11/17/2022 17:02:38 Retention of urine Benign prostatic hyperplasia with outflow obstruction [id number] Jenna Harris [facility] [address] [place] [address] 12/09/2022 10:56:01 12/12/2022 15:10:14 Retention of urine [...] [employer] Tom B Renaux [id number] Tom B Renaux 12/09/2022 2 [place] [id number] Tom B Renaux [id number] Tom B Renaux 11/11/2022 1 [place] [employer] Tom B Renaux [id number] Tom B Renaux 11/11/2022 2 [place] [id number] Tom B Renaux [id number] Tom B Renaux 11/04/2022 1 [place] [employer] Tom B Renaux [id number] Tom B Renaux 11/04/2022 2 [place] [id number] Tom B Renaux [id number] Tom B Renaux 10/21/2022 1 [place] [employer] Tom B Renaux [id number] Tom B Renaux 10/21/2022 2 [place] [id number] Tom B Renaux [id number] Tom B Renaux 09/23/2022 1 [place] [employer] Tom B Renaux [id number] Tom B Renaux 09/23/2022 2 [place] [id number] Tom B Renaux [id number] Tom B Renaux 08/03/2022 1 [place] [facility] [employer] Tom B Renaux [id number] Tom B Renaux 08/03/2022 2 [place] [id number] Tom B Renaux [id number] Tom B Renaux 06/30/2022 1 [place] [facility] Tom B Renaux [id number] Tom B Renaux 06/30/2022 2 [place] [id number] Tom B Renaux [id number] Tom B Renaux 06/16/2022 1 [place] [facility] Tom B Renaux [id number] Tom B Renaux 06/16/2022 2 [place] [id number] Tom B Renaux [id number] Tom B Renaux Notes Date Note Type Note Provider Name and Address Organization Details Recorded Time 06/16/2022 text/html HPI Notes: 77M w ith urinary retention. Here with . Recent hospitalization at [facility] from 04/30-05/30 for MSSA bacteremia with C-spine [...] PSH: Soc: Occ: Tobacco: EtOH: FHx: Roula [place], PA-Cynthia [address], [place], [address], [facility] 06/16/2022 18:10:53 06/30/2022 text/html HPI Notes: 77M w ith urinary retention. Here for cysto. Saw LILIBETH Nix. Recent hospitalization at [facility] from 04/30-05/30 for MSSA bacteremia with C-spine [...] EtOH: FHx: Kristopher Barrientos MD, PHD [address], [place], [address], [facility] 06/30/2022 14:06:37 09/23/2022 text/html HPI Notes: [...] weeks for next catheter change. Nenita song [facility] 09/23/2022 13:22:32 10/21/2022 text/html HPI Notes: Pt he re for catheter change Jenna song [facility] 10/21/2022 13:21:54 11/11/2022 text/html HPI Notes: 77M w ith urinary retention. Hospitalization at [facility] from 04/30-05/30 for MSSA bacteremia with C-spine [...] coordinate their care. Kristopher Barrientos MD, PHD [address] [place] [address],[address], [place], [address], [facility] 11/11/2022 17:49:57 12/09/2022 text/html HPI Notes: Pt of Dr PALMER, here for TOV recommended at 11/11/22 visit Jenna song [facility] 12/09/2022 12:43:22
== END 2023-09-12 08:18 | disposition home or self-care (01) ==
LOC: WOUND 08:17
PROVIDERS: Visit Provider Physician Assistant
DX: E11.621 Type 2 diabetes mellitus with foot ulcer (principal); I87.2 Venous insufficiency (chronic) (peripheral); L97.412 Non-pressure chronic ulcer of right heel and midfoot with fat layer exposed; Z79.4 Long term (current) use of insulin; Z79.84 Long term (current) use of oral hypoglycemic drugs
CPT/HCPCS: 97597

== ENCOUNTER 2023-09-19 11:18 | Outpatient (CLI) | payer MEDICARE, BC, SELFPAY ==
--- OUTSIDE RECORDS SUMMARY | 2023-09-19 11:20 | XMS_ITS | Clinical Summary ---
Author Name Unknown Organization [facility] Address [place], [place] [address] Care Team Providers Care Showplace Manager Name Role Phone Post, Dave Velazquez MD Primary Care Provider Moshe Enciso MD Unavailable [phone] Arie Justin MD Unavailable [phone] [facility], [facility] Unavailable Murali Hoover DPM Unavailable [phone] Allergies No known active allergies Medications [...] to Care Guide Pamella Brennan Phone number [phone]. Alcohol abuse 06/02/2010 03/26/2019 Overview: Sober since 2001. Great success with AA. 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 06/17/2022 Encounters Date Type Department Care Team Description 09/04/2023 10:30 AM DIRECTOR INTERNAL CONTROL Ancillary Procedure [facility] [address] [place] [address] 09/04/2023 Travel 07/21/2023 1:30 PM DIRECTOR INTERNAL CONTROL Office Visit [facility] - Darleen Thompson [address] [place] [address] OLMAN Byrne [id number] Jose Richardson MD CV General Cardiology Est (Overdue Annual F/U; Pt had an angiogram and was told he had an irregular heartbeat and needed to see cardiology) 07/21/2023 Telephone [facility] [place] [address] [facility] [[email or web address]] [address] [place] [address] Jose Richardson MD Referral 07/21/2023 Orders Only [facility] [address] [facility] [place] [address] Angelita Aquino <No scans attached> 07/21/2023 [...] Comments Blood Pressure 126/60 07/21/2023 1:34 PM DIRECTOR INTERNAL CONTROL Pulse 75 07/21/2023 1:34 PM DIRECTOR INTERNAL CONTROL Temperature 36.7 ??C (98 ??F) 06/29/2022 8:43 AM DIRECTOR INTERNAL CONTROL Respiratory Rate 18 06/29/2022 8:43 AM DIRECTOR INTERNAL CONTROL Oxygen Saturation 96% 07/21/2023 1:34 PM DIRECTOR INTERNAL CONTROL Inhaled Oxygen Concentration - - Weight 104.3 kg (230 lb) 07/21/2023 1:34 PM DIRECTOR INTERNAL CONTROL Height 180.3 cm (5' 10.98) 07/21/2023 1:[address] Body Mass Index 32.09 07/21/2023 1:34 PM DIRECTOR INTERNAL CONTROL Plan of Treatment Upcoming Encounters Date Type Department Care Team (Late st Contact Info) Description 10/06/2023 1:30 PM DIRECTOR INTERNAL CONTROL Phone Office Visit [facility] [place] [address] [facility] [address] [place], [place] [address] Post, Dave Velazquez MD [address] [facility] [address] [place] [address] Health Maintenance Due Date Last Done Comments [...] 07/16/2020, 04/21/2020 Medical Devices Implanted Type Area Hotel Maintenance Worker Device Identifier Shelf Expiration Date Model / Serial / Lot Moq-[id number] - [id number] Implanted:Qty: 1 on 09/20/2021 at [facility] Right: Foot [employer] AR-8725-4 4H / / Description:COMPRESSION FT S CREWS CANNULATED, 2.5 MICRO 44MM LOAD 4 [id number] Mar-1530p - [id number] Implanted:Qty: 1 on 09/20/2021 at [facility] Right: Foot [employer] 03/30/2025 AR-1530P- CP / / [id number] Description:FOREFOOT INTERNA L BRACE IMPLANT SYSTEM, PEEK Screw 4.61b99ki Bio Compositetenodesis Disp Glass Silverer Pk - [id number] Implanted:Qty: 1 on 09/20/2021 at [facility] Right: Foot [employer] 08/30/2022 AR-1547CD S / / [id number] Ancr Sut 1.3mm Dx Fibertak Suturetape 2 Ndl 26.2mm /2 Cir - [id number] Implanted:Qty: 1 on 09/20/2021 at [facility] Right: Foot [employer] 06/29/2026 AR-8990ST / / [id number] Explanted Type Area Hotel Maintenance Worker Device Identifier Shelf Expiration Date Model / Serial / Lot Wire Kirs .[id number] Smooth6/Pk Depuy/Héctor - [id number] Explanted:Qty: 1 on 09/20/2021 at [facility] Right: Foot [employer] 1646-000 / / Description:LOAD 4 8 [id number] [facility]-8737-40 - [id number] Explanted:Qty: 1 on 09/20/2021 at [facility] Right: Foot [employer] AR-8737-40 / / Description:2.5 MICRO COMPRE SSION FT DRILLS AND DISPOSABLES, GUIDEWIRE W TROCAR TIP, THREADED, 0.34 IN (.86MM) LOAD 4 [id number] Procedures Procedure Name Priority Date/Time Associated Diagnosis Comments ECHO TTE COMPLETE WO CONTRAST Routine 09/04/2023 11:00 AM DIRECTOR INTERNAL CONTROL SOB (shortness of breath) Fatigue, unspecified type Irregular heart beat EXTENDED HOLTER Routine 08/03/2023 SOB (shortness of breath) Fatigue, unspecified type Irregular heart beat EKG 12 LEAD Routine 07/21/2023 3:01 PM DIRECTOR INTERNAL CONTROL SOB (shortness of breath) Fatigue, unspecified type Irregular heart beat from Last 3 Months Results * ECHO TTE COMPLETE WO CONTRAST (09/04/2023 11:00 AM DIRECTOR INTERNAL CONTROL) EJECTION FRACTION 50-55% PROSOLV Anatomical Region Laterality Modality Ultrasound 09/04/2023 10:2 8 AM DIRECTOR INTERNAL CONTROL Narrative 09/04/2023 2:53 PM DIRECTOR INTERNAL CONTROL [address], [place] [address] Main: ? Transthoracic Echo Report MIGUELINA PÉREZ ID: [id number] Age: 78 : 1945 Ordering Provider: JOSE RICHARDSON Exam Date: 09/04/2023 10:28 Gender: Rhiannon Pointer Helper: NAHOMY Height: 70.1 in BSA: 2.22 m?? BP: 126 / 60 Weight: 231 lbs BMI: 33.1 kg/m?? HR: 77 Location: [facility] Rhythm: Normal Sinus Rhythm, With PVC Procedure [...] ZScore: 0.95 Jacinta Page MD (Electronically Signed) Pending sale to [facility] Site Final Date: 04 September 2023 14:52 ICD-10 Codes: R06.02; I49.9; R53.83 Procedure Note Jacinta Page MD - 09/04/2023 [facility] - [address], [place] [address] Main: Transthoracic Echo Report MIGUELINA PÉREZ Tomy ID: [id number] Age: 78 : 1945 Ordering Provider:JOSE RICHARDSON Exam Date: 09/04/2023 10:28 Gender: M Pointer Helper: NAHOMY Height: 70.1 in BSA: 2.22 m?? BP: 126 / 60 Weight: 231 lbs BMI: 33.1 kg/m?? HR: 77 Location: [facility] Rhythm: Normal Sinus Rhythm, WithPVC Procedure Components: [...] echo contrast agent was not available at [facility]. MEASUREMENTS (Male / Female) Normal Values [...] ZScore: 0.95 Jacinta Page MD (Electronically Signed) [facility] Accredited Site Final Date: 04 September 2023 14:52 ICD-10 Codes: R06.02; I49.9; R53.83 Jose Richardson MD ECHO ORD * ZIO PATCH XT - weekly to monthly symptoms. (08/03/2023) Jose Richardson MD CARDIAC SERVICES ORD * EKG 12 LEAD (07/21/2023 3:01 PM DIRECTOR INTERNAL CONTROL) Interpretation Sinus tachycardia with 1st degree A-V block Left axis deviation Right bundle branch block Abnormal ECG When compared with ECG of 18-JUN-2022 12:48, Premature atrial complexes are no longer Present Ventricular Rate 105 BPM Atrial Rate 105 BPM P-R Interval 224 ms QRS Duration 146 ms QT 374 ms QTc 494 ms P Osage 73 degrees R Osage -86 degrees T Osage 69 degrees 07/21/2023 3:01 PM DIRECTOR INTERNAL CONTROL 07/21/2023 4:31 PM DIRECTOR INTERNAL CONTROL Jose Richardson MD EKG ORD from Last 3 Months Advance Directives Documents on File Type Date Recorded Patient General Adjuster Expl anation Healthcare Directive 05/21/2021 3:50 PM [...] Code Status Discussion: Reviewed Preferences Care Teams Showplace Manager Relationship Specialty Start Date End Date Post, Dave Velazquez MD PCP - General 06/02/10 Moshe Enciso MD [address] [place] [address] Endocrinology Endocrinology 01/04/18 [place] [address] [place], [place] [address] Surgery - Ophthalmology 03/22/18 [facility] [place] [address] [place], [place] [address] 06/08/21 Murali Hoover DPM [address] [place] [address] Surgery - Podiatric 01/03/23
--- OUTSIDE RECORDS SUMMARY | 2023-09-19 11:20 | XMS_ITS | Clinical Summary ---
Author Name Unknown Organization [facility] Address [address] [place] [address] Care Team Providers Care Nutrition Specialist Name Role Phone Post, Dave Wakefield Primary Care Provider [phone] Medications Medication Sig Dispensed Refills Start Date [...] Comments Blood Pressure 148/85 06/26/2018 5:58 PM DATA STORAGE SPECIALIST Pulse 90 06/26/2018 5:58 PM DATA STORAGE SPECIALIST Temperature 36.6 ??C (97.8 ??F) 06/26/2018 5:58 PM CS T Respiratory Rate 18 06/26/2018 5:58 PM DATA STORAGE SPECIALIST Oxygen Saturation 95% 06/26/2018 7:00 PM DATA STORAGE SPECIALIST Inhaled Oxygen Concentration - - Weight 112 kg (247 lb) 06/26/2018 5:58 PM DATA STORAGE SPECIALIST Height 180.3 cm (5' 11) 06/26/2018 5:58 PM DATA STORAGE SPECIALIST Body Mass Index 34.45 06/26/2018 5:58 PM DATA STORAGE SPECIALIST Plan of Treatment Health Maintenance Due [...] age to complete this topic Care Teams Nutrition Specialist Relationship Specialty Start Date End Date Post, Dave Wakefield PCP - General Internal Medicine 06/26/18
--- OUTSIDE RECORDS SUMMARY | 2023-09-19 11:20 | XMS_ITS | Continuity of Care Document ---
Author Name [facility] Organization [facility] Care Team Providers Care Molecular Spectroscopist Name Role Phone [facility] Unavailable Unavailable Problems Combined list of problems from [facility] and [facility] facilities. It does not include entries that were removed or entered in error. Problem Status Onset Date Problem Type Date of Resolution Comments Source Depressive Disorder NOS * (ICD-9-CM 311./300.4) Active Condition [facility] Diabetes mellitus (SNOMED CT 30506910) Active Condition [facility] Diabetic neuropathy Active Condition [facility] Foot Pain (ICD-9-CM 719.47) Active Condition Aug 26 10 Entered By: RASHMI WORLEY Comment: left 5th metatarsal fracture [facility] History of amputation of lesser toe Active Condition [facility] Hyperlipidemia (SNOMED CT 17958469) Active Condition [facility] Hyperuricemia Active Condition [facility] Osteopenia Active Condition [place]) Other Iatrogenic Hypotension Active Condition [place]) Personal History of Alcoholism (ICD-9-CM V11.3) Active Condition [facility] Tobacco user (SNOMED CT 947559367) Active Condition [facility] Diagnosis: ICD-10-CM E11.42 Type 2 diabetes mellitus with diabetic polyneuropathy Active Diagnosis [facility] Diagnosis: ICD-10-CM E11.621 Type 2 diabetes mellitus with foot ulcer Active Diagnosis [facility] Diagnosis: ICD-10-CM Z77.29 Contact with and exposure to other hazardous substances Active Diagnosis [facility] Medications Combined list of outpatient medications from Department [facility] and [facility] facilities.Medications provided include 1) outpatient medications from the last 15 months, and 2) patient-reported medications. Medication Details Route Status Patient Instructions Prescription Expires Prescription Number Last Dispense Date Ordering Provider Order Date Source ASCORBIC ACID 500MG TAB TAKE ONE TABLET BY MOUTH TWICE A DAY ORALLY ACTIVE [facility] ASPIRIN 81MG TAB,EC TAKE ONE TABLET BY MOUTH EVERY DAY ORALLY ACTIVE JEFF CHOUDHARY ER A 2006 [facility] ATORVASTATI N CA 40MG TAB TAKE ONE TABLET BY MOUTH EVERY DAY FOR CHOLESTE ROL ORALLY ACTIVE 04/11/2024 [id number] 3 CHARLEE FISH A 2022 [facility] ATORVASTATI N CA 40MG TAB TAKE ONE TABLET BY MOUTH EVERY DAY FOR CHOLESTE ROL ORALLY DISCONT INUED 07/15/2023 [id number] 3 NAIDL,TOD D 2022 [facility] ATORVASTATI N CA 80MG TAB TAKE ONE-HALF TABLET BY MOUTH EVERY DAY FOR CHOLESTE ROL ORALLY DISCONT INUED (EDIT) 07/15/2023 [id number] 2 NAIDL,TOD D 2021 [facility] CHOLECALCIF QUINTIN TAB TAKE 5000 UNITS BY MOUTH EVERY DAY ORALLY ACTIVE CHARLEE FISH A 2022 [facility] COENZYME Q10 CAP/TAB TAKE 1 CAPSULE BY MOUTH EVERY DAY ORALLY ACTIVE FISHCHARLEE A 2022 [facility] CYANOCOBALA MIN 1000MCG TAB TAKE ONE TABLET BY MOUTH EVERY DAY ORALLY ACTIVE NAIDL,TOD D 2021 [facility] DICLOFENAC NA 1% GEL,TOP APPLY 4 GRAMS TOPICALL Y FOUR TIMES A DAY NEEDED FOR JOINT PAIN TOPICA LLY ACTIVE 03/22/2024 [id number] 3 CHARLEE FISH A 2022 [facility] FINASTERIDE 5MG TAB TAKE ONE TABLET BY MOUTH EVERY DAY FOR PROSTATE ORALLY ACTIVE 04/11/2024 [id number] 3 FISHCHARLEE A 2022 [facility] FINASTERIDE 5MG TAB TAKE ONE TABLET BY MOUTH EVERY DAY FOR PROSTATE ORALLY DISCONT INUED 07/13/2023 [id number] 3 FISHCHARLEE A 2021 [facility] FISH OIL 1000MG (500MG DHA/EPA) CAP,ORAL TAKE 1 CAPSULE BY MOUTH TWICE A DAY ORALLY ACTIVE JEFF CHOUDHARY ER A 2006 [facility] INSULIN,GLA RGINE,HUMAN 100 UNIT/ML INJ,SOLOSTA R,3ML INJECT 22 UNITS UNDER THE SKIN AT BEDTIME FOR DIABETES SUBCUT ANEOUS DISCONT INUED (EDIT) 09/30/2023 [id number] 3 NAIDL,TOD D 2022 [facility] INSULIN,GLA RGINE,HUMAN 100 UNIT/ML INJ,SOLOSTA R,3ML INJECT 24 UNITS UNDER THE SKIN AT BEDTIME FOR DIABETES SUBCUT ANEOUS DISCONT INUED (EDIT) 07/15/2023 [id number] 3 NAIDL,TOD D [address]22 [facility] INSULIN,GLA RGINE-YFGN 100UNIT/ML INJ PEN,3ML INJECT 24 UNITS UNDER THE SKIN EVERY EVENING FOR DIABETES SUBCUT ANEOUS ACTIVE 08/29/2024 [id number] 4 NAIDL,TOD D 2023 [facility] INSULIN,GLA RGINE-YFGN 100UNIT/ML INJ PEN,3ML INJECT 22 UNITS UNDER THE SKIN AT BEDTIME FOR DIABETES SUBCUT ANEOUS DISCONT INUED (EDIT) 01/07/2024 [id number] 3 NAIDL,TOD D [address]22 [facility] INSULIN,GLA RGINE-YFGN 100UNIT/ML INJ PEN,3ML INJECT 20 UNITS UNDER THE SKIN AT BEDTIME FOR DIABETES SUBCUT ANEOUS DISCONT INUED (EDIT) 12/08/2023 [id number] 3 NAIDL,TOD D [address]22 [facility] INSULIN,GLA RGINE-YFGN 100UNIT/ML INJ PEN,3ML INJECT 18 UNITS UNDER THE SKIN AT BEDTIME FOR DIABETES SUBCUT ANEOUS DISCONT INUED (EDIT) 11/08/2023 [id number] 3 NAIDL,TOD D 2022 [facility] LIDOCAINE 4% CREAM,TOP APPLY MODERATE AMOUNT TOPICALL Y THREE TIMES A DAY FOR PAIN TOPICA LLY ACTIVE 03/22/2024 [id number] [address] CHARLEE FISH [address] [facility] MAGNESIUM OXIDE 400MG TAB TAKE ONE TABLET BY MOUTH EVERY DAY ORALLY ACTIVE CHARLEE FISH [address] [facility] MENTHOL/MET HYL SALICYLATE (10-15%) LOW CONC. CREAM,TOP APPLY THIN LAYER TOPICALL Y THREE TIMES A DAY FOR MUSCLE PAIN TOPICA LLY ACTIVE 03/22/2024 [id number] 3 CHARLEE FISH [address] [facility] METFORMIN HCL 1000MG TAB TAKE ONE TABLET BY MOUTH TWICE A DAY FOR DIABETES ORALLY ACTIVE 04/11/2024 [id number] 3 CHARLEE FISH [address] [facility] METFORMIN HCL 1000MG TAB TAKE ONE TABLET BY MOUTH TWICE A DAY FOR DIABETES ORALLY DISCONT INUED 07/15/2023 [id number] 3 NAIDL,TOD D 2022 [facility] MICONAZOLE NITRATE 2% CREAM,TOP APPLY THIN LAYER TOPICALL Y TWICE A DAY NEEDED FOR RASH TOPICA LLY DISCONT INUED 06/19/2023 [id number] [address] [facility] OMEPRAZOLE 20MG CAP,EC TAKE ONE CAPSULE BY MOUTH EVERY DAY ON AN EMPTY STOMACH, AT LEAST 30 MINUTES PRIOR TO A MEAL FOR GERD ORALLY ACTIVE 03/22/2024 [id number] 3 CHARLEE FISH [address] [facility] OMEPRAZOLE 20MG CAP,EC TAKE ONE CAPSULE BY MOUTH EVERY DAY ON AN EMPTY STOMACH, AT LEAST 30 MINUTES PRIOR TO A MEAL FOR GERD ORALLY DISCONT INUED 07/15/2023 [id number] 2 NAIDL,TOD D 2021 [facility] SEMAGLUTIDE 0.5MG/0.375 ML INJ,SOLN,PE N,1.5ML INJECT 0.5MG UNDER THE SKIN EVERY WEEK FOR DIABETES SUBCUT ANEOUS DISCONT INUED (EDIT) 07/15/2023 [id number] 3 NAIDL,TOD D 2022 [facility] SEMAGLUTIDE 1MG/0.75ML INJ,SOLN,PE N,3ML INJECT 1MG UNDER THE SKIN EVERY WEEK FOR DIABETES SUBCUT ANEOUS ACTIVE 11/08/2023 [id number] 4 NAIDL,TOD D 2022 [facility] TAMSULOSIN HCL 0.4MG CAP TAKE ONE CAPSULE BY MOUTH EVERY EVENING ORALLY ACTIVE 04/13/2024 [id number] [address] FISH [address] [facility] TAMSULOSIN HCL 0.4MG CAP TAKE ONE CAPSULE BY MOUTH EVERY EVENING ORALLY DISCONT INUED 04/11/2024 [id number] 3 CHARLEE FISH A [address]22 [facility] TAMSULOSIN HCL 0.4MG CAP TAKE ONE CAPSULE BY MOUTH EVERY EVENING ORALLY DISCONT INUED 08/04/2023 [id number] [address]LE[address] FISH [address] [facility] TAMSULOSIN HCL 0.4MG CAP TAKE ONE CAPSULE BY MOUTH EVERY MORNING ORALLY 07/18/2022 [id number] [address] [facility] TURMERIC CAP/TAB TAKE 500 MG BY MOUTH TWICE A DAY ORALLY ACTIVE MATTY POWERS 2018 [facility] Allergies, Adverse Reactions, Alerts Combined list of allergies from Department of Defense and Veterans Affairs facilities. It does not include entries that were removed or entered in error. Substance Category Reaction Severity Reaction type Status Date Reported Comments Source VANCOMYCIN Propensity to adverse reactions to drug (finding) [place] active 8 [facility] Immunizations Combined list of available immunizations from the Department of Defense and Veterans Affairs facilities. Immunization Series Date Given Administered By Site Reaction Lot Number CVX Code Drug Abstract Maker Status Comments Source ZOSTER RECOMBINANT [address] [facility] INFLUENZA, INJECTABLE, QUADRIVALENT, PRESERVATIVE FREE [address] [facility] ZOSTER RECOMBINANT 1 2019 187 complet [employer] INFLUENZA, HIGH-DOSE, QUADRIVALENT [address] [facility] INFLUENZA, SEASONAL, INJECTABLE, PRESERVATIVE FREE [address] [facility] INFLUENZA, INJECTABLE, QUADRIVALENT, PRESERVATIVE FREE [address] [facility] INFLUENZA, INJECTABLE, QUADRIVALENT, PRESERVATIVE FREE [address] [facility] TDAP 2015 115 complet ed [place] [facility] PNEUMOCOCCAL CONJUGATE PCV 13 2015 133 complet [employer] TD (ADULT), 5 LF TETANUS TOXOID, PRESERVATIVE FREE, ADSORBED [address] [facility] INFLUENZA, INJECTABLE, QUADRIVALENT, PRESERVATIVE FREE 2013 150 complet [employer] PNEUMOCOCCAL POLYSACCHARID E PPV23 2010 33 complet [employer] INFLUENZA, UNSPECIFIED FORMULATION 2006 88 complet [employer] PNEUMOCOCCAL, UNSPECIFIED FORMULATION 2006 109 complet [employer] TD(ADULT) UNSPECIFIED FORMULATION 2006 NONE [address] [facility] TETANUS TOXOID, UNSPECIFIED FORMULATION 2006 NONE 112 complet [employer] Results Combined list of recent chemistry, hematology [...] 03:48 PM Reporting Lab: [facility] [phone] Performing Lab: [facility] [address] [place] [facility] BASIC METABOLIC PANEL+MG CREATININE [MASS/VOLUM E] IN SERUM OR PLASMA 1.2 0.7 - 1.2 03/22 Specimen Type: PLASMA No comment entered. Ordering Provider: ME LEEROY FISH Report Released Date/Time: Aug 21, 2022 03:48 PM Reporting Lab: [facility] [address] Performing Lab: [facility] [address] [place] [facility] BASIC METABOLIC PANEL+MG UREA NITROGEN [MASS/VOLUM E] IN SERUM OR PLASMA 15 8 - 26 03/22 Specimen Type: PLASMA No comment entered. Ordering Provider: ME LEEROY FISH Report Released Date/Time: Aug 21, 2022 03:48 PM Reporting Lab: [facility] [address] Performing Lab: [facility] [address] [place] [facility] BASIC METABOLIC PANEL+MG GLUCOSE [MASS/VOLUM E] IN SERUM OR PLASMA 145 70 - 100 03/22 H Specimen Type: PLASMA No comment entered. Ordering Provider: ME LEEROY FISH Report Released Date/Time: Aug 21, 2022 03:48 PM Reporting Lab: [facility] [address] Performing Lab: [facility] [phone] [place] [facility] BASIC METABOLIC PANEL+MG SODIUM [MOLES/VOLU ME] IN SERUM OR PLASMA 138 136 - 145 03/22 Specimen Type: PLASMA No comment entered. Ordering Provider: ME LEEROY FISH Report Released Date/Time: Aug 21, 2022 03:48 PM Reporting Lab: [facility] [phone] Performing Lab: [facility] [address] [place] [facility] BASIC METABOLIC PANEL+MG POTASSIUM [MOLES/VOLU ME] IN SERUM OR PLASMA 4.5 3.5 - 5.1 03/22 Specimen Type: PLASMA No comment entered. Ordering Provider: ME LEEROY FISH Report Released Date/Time: Aug 21, 2022 03:48 PM Reporting Lab: [facility] [address] Performing Lab: [facility] [address] [place] [facility] BASIC METABOLIC PANEL+MG CHLORIDE [MOLES/VOLU ME] IN SERUM OR PLASMA 101 98 - 107 03/22 Specimen Type: PLASMA No comment entered. Ordering Provider: ME LEEROY FISH Report Released Date/Time: Aug 21, 2022 03:48 PM Reporting Lab: [facility] [phone] Performing Lab: [facility] [address] [place] [facility] BASIC METABOLIC PANEL+MG CARBON DIOXIDE, TOTAL [MOLES/VOLU ME] IN SERUM OR PLASMA - 03/22 Specimen Type: PLASMA No comment entered. Ordering Provider: ME LEEROY FISH Report Released Date/Time: Aug 21, 2022 03:48 PM Reporting Lab: [facility] [address] Performing Lab: [facility] [address] [place] [facility] BASIC METABOLIC PANEL+MG CALCIUM [MASS/VOLUM E] IN SERUM OR PLASMA 10.0 8.4 - 10.2 03/22 Specimen Type: PLASMA No comment entered. Ordering Provider: ME LEEROY FISH Report Released Date/Time: Aug 21, 2022 03:48 PM Reporting Lab: [facility] [address] Performing Lab: [facility] [address] [place] [facility] BASIC METABOLIC PANEL+MG MAGNESIUM [MASS/VOLUM E] IN SERUM OR PLASMA 1.9 1.6 - 2.6 03/22 Specimen Type: PLASMA No comment entered. Ordering Provider: ME LEEROY FISH Report Released Date/Time: Aug 21, 2022 03:48 PM Reporting Lab: [facility] [address] Performing Lab: [facility] [address] [place] [facility] BASIC METABOLIC PANEL+MG ANION GAP IN SERUM OR PLASMA 10 5 - 15 03/22 Specimen Type: PLASMA No comment entered. Ordering Provider: ME LEEROY FISH Report Released Date/Time: Aug 21, 2022 03:48 PM Reporting Lab: [facility] [address] Performing Lab: [facility] [address] [place] [facility] BASIC METABOLIC PANEL+MG GLOMERULAR FILTRATION RATE/1.73 SQ M.PREDICTED [VOLUME RATE/AREA] IN SERUM, PLASMA OR BLOOD BY CREATININE- BASED FORMULA (CKD-EPI 2020) 63 60 03/22 Specimen Type: PLASMA No comment entered. Ordering Provider: ME LEEROY FISH Report Released Date/Time: Aug 21, 2022 03:48 PM Reporting Lab: [facility] [address] Performing Lab: [facility] [address] [place] [facility] HEMOGLOBI N [...] 03:46 PM Reporting Lab: [facility] [address] Performing Lab: [facility] [address] [place] [facility] BASIC METABOLIC PANEL+MG CREATININE [MASS/VOLUM E] IN SERUM OR PLASMA 0.9 0.7 - 1.2 08/18 Specimen Type: PLASMA No comment entered. Ordering Provider: ME LEEROY FISH Report Released Date/Time: December 22, 2021 03:46 PM Reporting Lab: [facility] [address] Performing Lab: [facility] [address] [place] [facility] BASIC METABOLIC PANEL+MG UREA NITROGEN [MASS/VOLUM E] IN SERUM OR PLASMA 12 8 - 26 08/18 Specimen Type: PLASMA No comment entered. Ordering Provider: ME LEEROY FISH Report Released Date/Time: December 22, 2021 03:46 PM Reporting Lab: [facility] [address] Performing Lab: [facility] [address] [place] [facility] BASIC METABOLIC PANEL+MG GLUCOSE [MASS/VOLUM E] IN SERUM OR PLASMA 184 70 - 100 08/18 H Specimen Type: PLASMA No comment entered. Ordering Provider: ME LEEROY FISH Report Released Date/Time: December 22, 2021 03:46 PM Reporting Lab: [facility] [address] Performing Lab: [facility] [address] [place] [facility] BASIC METABOLIC PANEL+MG SODIUM [MOLES/VOLU ME] IN SERUM OR PLASMA 137 136 - 145 08/18 Specimen Type: PLASMA No comment entered. Ordering Provider: ME LEEROY FISH Report Released Date/Time: December 22, 2021 03:46 PM Reporting Lab: [facility] [address] Performing Lab: [facility] [address] [place] [facility] BASIC METABOLIC PANEL+MG POTASSIUM [MOLES/VOLU ME] IN SERUM OR PLASMA 3.9 3.5 - 5.1 08/18 Specimen Type: PLASMA No comment entered. Ordering Provider: ME LEEROY FISH Report Released Date/Time: December 22, 2021 03:46 PM Reporting Lab: [facility] [address] Performing Lab: [facility] [address] [place] [facility] BASIC METABOLIC PANEL+MG CHLORIDE [MOLES/VOLU ME] IN SERUM OR PLASMA 102 98 - 107 08/18 Specimen Type: PLASMA No comment entered. Ordering Provider: ME LEEROY FISH Report Released Date/Time: December 22, 2021 03:46 PM Reporting Lab: [facility] [address] Performing Lab: [facility] [address] [place] [facility] BASIC METABOLIC PANEL+MG CARBON DIOXIDE, TOTAL [MOLES/VOLU ME] IN SERUM OR PLASMA 26 22 - 29 08/18 Specimen Type: PLASMA No comment entered. Ordering Provider: ME LEEROY FISH Report Released Date/Time: December 22, 2021 03:46 PM Reporting Lab: [facility] [address] Performing Lab: [facility] [address] [place] [facility] BASIC METABOLIC PANEL+MG CALCIUM [MASS/VOLUM E] IN SERUM OR PLASMA 9.4 8.4 - 10.2 08/18 Specimen Type: PLASMA No comment entered. Ordering Provider: ME LEEROY FISH Report Released Date/Time: December 22, 2021 03:46 PM Reporting Lab: [facility] [address] Performing Lab: [facility] [address] [place] [facility] BASIC METABOLIC PANEL+MG MAGNESIUM [MASS/VOLUM E] IN SERUM OR PLASMA 1.6 1.6 - 2.6 08/18 Specimen Type: PLASMA No comment entered. Ordering Provider: ME LEEROY FISH Report Released Date/Time: December 22, 2021 03:46 PM Reporting Lab: [facility] [address] Performing Lab: [facility] [address] [place] [facility] BASIC METABOLIC PANEL+MG ANION GAP IN SERUM OR PLASMA 9 5 - 15 08/18 Specimen Type: PLASMA No comment entered. Ordering Provider: ME LEEROY FISH Report Released Date/Time: December 22, 2021 03:46 PM Reporting Lab: [facility] [address] Performing Lab: [facility] [address] [place] [facility] BASIC METABOLIC PANEL+MG GLOMERULAR FILTRATION RATE/1.73 SQ M.PREDICTED [VOLUME RATE/AREA] IN SERUM, PLASMA OR BLOOD BY CREATININE- BASED FORMULA (CKD-EPI) 89 60 08/18 Specimen Type: PLASMA No comment entered. Ordering Provider: ME LEEROY FISH Report Released Date/Time: December 22, 2021 03:46 PM Reporting Lab: [facility] [address] Performing Lab: [facility] [address] [place] [facility] HEMOGLOBI N A1C HEMOGLOBIN A1C/HEMOGLO BIN.TOTAL IN BLOOD 8.2 4.0 - 6.0 12/22 H Specimen Type: BLOOD No comment entered. Ordering Provider: ME LEEROY FISH Report Released Date/Time: Aug 03, 2021 01:53 PM Reporting Lab: [facility] [address] Performing Lab: [facility] [address] [place] [facility] BASIC METABOLIC PANEL+MG CREATININE [MASS/VOLUM E] IN SERUM OR PLASMA 1.1 0.7 - 1.2 12/22 Specimen Type: PLASMA No comment entered. Ordering Provider: ME LEEROY FISH Report Released Date/Time: Aug 03, 2021 01:53 PM Reporting Lab: [facility] [address] Performing Lab: [facility] [address] [place] [facility] BASIC METABOLIC PANEL+MG UREA NITROGEN [MASS/VOLUM E] IN SERUM OR PLASMA 15 8 - 26 12/22 Specimen Type: PLASMA No comment entered. Ordering Provider: ME LEEROY FISH Report Released Date/Time: Aug 03, 2021 01:53 PM Reporting Lab: [facility] [address] Performing Lab: [facility] [address] [place] [facility] BASIC METABOLIC PANEL+MG GLUCOSE [MASS/VOLUM E] IN SERUM OR PLASMA 174 74 - 100 12/22 H Specimen Type: PLASMA No comment entered. Ordering Provider: ME LEEROY FISH Report Released Date/Time: Aug 03, 2021 01:53 PM Reporting Lab: [facility] [address] Performing Lab: [facility] [address] [place] [facility] BASIC METABOLIC PANEL+MG SODIUM [MOLES/VOLU ME] IN SERUM OR PLASMA 141 136 - 145 12/22 Specimen Type: PLASMA No comment entered. Ordering Provider: ME LEEROY FISH Report Released Date/Time: Aug 03, 2021 01:53 PM Reporting Lab: [facility] [address] Performing Lab: [facility] [address] [place] [facility] BASIC METABOLIC PANEL+MG POTASSIUM [MOLES/VOLU ME] IN SERUM OR PLASMA 4.2 3.5 - 5.1 12/22 Specimen Type: PLASMA No comment entered. Ordering Provider: ME LEEROY FISH Report Released Date/Time: Aug 03, 2021 01:53 PM Reporting Lab: [facility] [address] Performing Lab: [facility] [address] [place] [facility] BASIC METABOLIC PANEL+MG CHLORIDE [MOLES/VOLU ME] IN SERUM OR PLASMA 101 98 - 107 12/22 Specimen Type: PLASMA No comment entered. Ordering Provider: ME LEEROY FISH Report Released Date/Time: Aug 03, 2021 01:53 PM Reporting Lab: [facility] [address] Performing Lab: [facility] [address] [place] [facility] BASIC METABOLIC PANEL+MG CARBON DIOXIDE, TOTAL [MOLES/VOLU ME] IN SERUM OR PLASMA 30 22 - 29 12/22 H Specimen Type: PLASMA No comment entered. Ordering Provider: ME LEEROY FISH Report Released Date/Time: Aug 03, 2021 01:53 PM Reporting Lab: [facility] [address] Performing Lab: [facility] [address] [place] [facility] BASIC METABOLIC PANEL+MG CALCIUM [MASS/VOLUM E] IN SERUM OR PLASMA 10.1 8.4 - 10.2 12/22 Specimen Type: PLASMA No comment entered. Ordering Provider: ME LEEROY FISH Report Released Date/Time: Aug 03, 2021 01:53 PM Reporting Lab: [facility] [address] Performing Lab: [facility] [address] [place] [facility] BASIC METABOLIC PANEL+MG MAGNESIUM [MASS/VOLUM E] IN SERUM OR PLASMA 1.8 1.6 - 2.6 12/22 Specimen Type: PLASMA No comment entered. Ordering Provider: ME LEEROY FISH Report Released Date/Time: Aug 03, 2021 01:53 PM Reporting Lab: [facility] [address] Performing Lab: [facility] [address] [place] [facility] BASIC METABOLIC PANEL+MG ANION GAP IN SERUM OR PLASMA 10 5 - 15 12/22 Specimen Type: PLASMA No comment entered. Ordering Provider: ME LEEROY FISH Report Released Date/Time: Aug 03, 2021 01:53 PM Reporting Lab: [facility] [address] Performing Lab: [facility] [address] [facility] BASIC METABOLIC [facility]+MG CREAT EGFR(CKD-EP I) 70 60 12/22 Specimen Type: PLASMA No comment entered. Ordering Provider: ME LEEROY FISH Report Released Date/Time: Aug 03, 2021 01:53 PM Reporting Lab: [facility] [address] Performing Lab: [facility] [address] [facility] Vital Signs Combined list of inpatient and outpatient Vital Signs from Department of Defense and Veterans Affairs, ranging from 12 months to all on record, depending upon the facility. Vital Sign Value Date Comments Source SYSTOLIC BLOOD PRESSURE 108 03/22/2023 14:13:04 [facility] DIASTOLIC BLOOD PRESSURE 77 03/22/2023 14:13:04 [facility] PULSE OXIMETRY 95% 03/22/2023 14:13:04 [facility] 221 03/22/2023 14:13:04 [facility] BMI 31kg/m2 03/22/2023 14:13:04 [facility] PAIN 0 03/22/2023 14:13:04 [facility] HEIGHT 71 03/22/2023 14:13:04 [facility] TEMPERATURE 97.5 03/22/2023 14:13:04 [facility] PULSE 110 03/22/2023 14:13:04 [facility] RESPIRATION 18 03/22/2023 14:13:04 [facility] Encounters Combined list of: 1) [...] [facility]CS HC PRO PHONE CALL 11-20 MIN [id number] Diagnos is: ICD-10- CM E11.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
DARYLKARI 04/25 [place] [facility] En[facility] [id number] 04/30 [facility] [place] [facility] Outpatient Encounter [id number] 05/11 [place] [facility] [place] [facility] Outpatient Encounter [id number] SA ERICK RODRIGUEZ R 05/13 [place] [facility] [place] [facility] Out[place] Encounter [id number] 05/19 [place] [facility] [place] [facility] Out[place] [facility]counter [id number] 05/23 [place] [facility] [place] [facility] Out[place] [facility]counter [id number] 05/25 [place] [facility] [place] [facility] Out[place] [facility]counter [id number] 05/27 [place] [facility] [place] [facility] Out[place] [facility]counter [id number] 05/30 [place] [facility] [place] [facility] Out[place] [facility]counter [id number] 06/06 [place] [facility] [place] [facility] Out[place] Encounter [id number] 06/14 [place] [facility] [place] [facility] Outpatient Encounter [id number] 06/16 [place] [facility] [place] [facility] Outpatient Encounter [id number] SA MICHAEL RA R 06/18 [place] [place] [facility] Outpatient Encounter [id number] Kimberly GRIFFIN 07/12 [place] [facility] [place] [facility] HC PRO PHONE CALL 11-20 MIN [id number] Diagnos is: ICD-10- CM E11.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
NAIDL,KARI 07/14 [place] [facility] [place] [facility] Outpatient Encounter [id number] [place]ER Ortiz W 07/21 [place] [facility] [place] [facility] OFFICE O/P EST MOD 30-39 MIN [id number] Diagnos is: ICD-10- CM E11.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
Rhiannon FISH A 08/18 [place] [facility] [place] [facility] Outpatient Encounter [id number] 08/21 [place] [facility] [place] [facility] HC PRO PHONE CALL 11-20 MIN [id number] Diagnos is: ICD-10- CM E11.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
NAIDL,KARI 08/29 [place] [facility] [place] [facility] HC PRO PHONE CALL 11-20 MIN [id number] Diagnos is: ICD-10- CM E11.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
NAIDL,KARI 09/29 [place] [facility] [place] [facility] HC PRO PHONE CALL 21-30 MIN [id number] Diagnos is: ICD-10- CM E11.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
NAIDL,KARI 11/07 [place] [facility] [place] [facility] HC PRO PHONE CALL 11-20 MIN [id number] Diagnos is: ICD-10- CM E11.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
NAIDL,KARI 12/07 [facility] Outpatient Encounter [id number] Diagnos is: ICD-10- CM Z77.29 Contact with and exposur e to other [facility]<br/ > JEANINEJESSICA 12/27 [facility] Outpatient Encounter [id number] Diagnos is: ICD-10- CM Z77.29 Contact with and exposur e to other [facility]<br/ > JEANINE,[facility]ESSICA [facility] 12/27 [facility] HC PRO PHONE CALL 11-20 MIN [id number] Diagnos is: ICD-10- CM E11.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
NAIDL,KARI 01/06 [facility] Outpatient Encounter [id number] 03/10 [facility] HC PRO PHONE CALL 11-20 MIN [id number] Diagnos is: ICD-10- CM E11.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
NAIDL,KARI 03/14 [facility] OFFICE O/P EST LOW 20-29 MIN [id number] Diagnos is: ICD-10- CM E11.621 Type 2 diabete s mellitu s with foot ulcer<b r/> Rhiannon FISH A 03/22 [facility] HC PRO PHONE CALL 21-30 MIN [id number] Diagnos is: ICD-10- CM E11.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
NAIDL,KARI 04/18 [facility] HC PRO PHONE CALL 21-30 MIN [id number] Diagnos is: ICD-10- CM E11.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
NAIDL,KARI 07/11 [facility] MT[facility] BY PHARM ADDL 15 MIN [id number] Diagnos is: ICD-10- CM E11.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
NAIDL,KARI 08/29 [facility] Social History Combined list of available smoking, tobacco, and other social history from Department of Defense and Veterans Affairs facilities. Social History Type Response Date Comment Sourc e Tobacco smoking status NHIS [place]-TOBACCO FORMER USER 08/18/2022 [facility] of [facility]2022 [facility] History of tobacco use FL-TOBACCO FORMER USER 05/03/2021 [facility] History of tobacco use FL-TOBACCO FORMER USER 04/21/2020 [facility] History of tobacco use FORMER TOBACCO US E >1Y <7Y 04/03/2018 [facility] History of tobacco use CURRENT TOBACCO USER 03/09/2007 [facility] Plan of Care List of future care activities from Department of Veterans Affairs facilities. Additional future care activities may be listed in the Assessment and Plan section. Date/Time Care Activity Care Activity Detail Facili ty 10/11/2023 AMBULATORY - NONE AMBULATORY - NONE [facility] Advance Directives List of completed, amended, or rescinded Advance Directives on record at Department of Veterans Affairs facilities. An actual copy of the Directive is not included. Date Advance Directive Provider Source 06/22/2021 ADVANCE DIRECTIVE DISCUSSION [facility] 06/22/2021 ADVANCE DIRECTIVE ALLYSON GRAF [facility] 03/09/2007 ADVANCE DIRECTIVE [facility]
--- OUTSIDE RECORDS SUMMARY | 2023-09-19 11:20 | XMS_ITS | Referral Summary ---
Author Name Unknown Organization [facility] Address [address] [place] [id number] Care Team Providers Care [employer] Name Role Phone Post, Dave Wakefield Primary Care Provider [phone] Medications Medication Sig Dispensed Refills Start Date [...] Comments Blood Pressure 148/85 06/26/2018 5:58 PM LOCATOR Pulse 90 06/26/2018 5:58 PM LOCATOR Temperature 36.6 ??C (97.8 ??F) 06/26/2018 5:58 PM CS T Respiratory Rate 18 06/26/2018 5:58 PM LOCATOR Oxygen Saturation 95% 06/26/2018 7:00 PM LOCATOR Inhaled Oxygen Concentration - - Weight 112 kg (247 lb) 06/26/2018 5:58 PM LOCATOR Height 180.3 cm (5' 11) 06/26/2018 5:58 PM LOCATOR Body Mass Index 34.45 06/26/2018 5:58 PM LOCATOR Plan of Treatment Not on file Care Teams [employer] Relationship Specialty Start Date End Date Post, Dave Wakefield PCP - General Internal Medicine 06/26/18
== END 2023-09-19 11:19 | disposition home or self-care (01) ==
LOC: WOUND 11:18
PROVIDERS: Visit Provider Nurse Practitioner Family
DX: E11.621 Type 2 diabetes mellitus with foot ulcer (principal); L97.512 Non-pressure chronic ulcer of other part of right foot with fat layer exposed; I87.2 Venous insufficiency (chronic) (peripheral); Z79.4 Long term (current) use of insulin; Z79.84 Long term (current) use of oral hypoglycemic drugs
CPT/HCPCS: 11042; 87070; 87186

== ENCOUNTER 2023-09-26 14:21 | Outpatient (CLI) | payer MEDICARE, BC, SELFPAY | END 2023-09-26 14:22 | disposition home or self-care (01) | LOC: WOUND 14:21 | PROVIDERS: Visit Provider Physician Assistant | DX: E11.621 Type 2 diabetes mellitus with foot ulcer (principal); L97.512 Non-pressure chronic ulcer of other part of right foot with fat layer exposed; I87.2 Venous insufficiency (chronic) (peripheral); Z79.4 Long term (current) use of insulin; Z79.84 Long term (current) use of oral hypoglycemic drugs | CPT/HCPCS: 11042 ==

== ENCOUNTER 2023-10-03 13:25 | Outpatient (CLI) | payer MEDICARE, BC, SELFPAY | END 2023-10-03 13:26 | disposition home or self-care (01) | LOC: WOUND 13:25 | PROVIDERS: Visit Provider Nurse Practitioner Family | DX: E11.621 Type 2 diabetes mellitus with foot ulcer (principal); L97.412 Non-pressure chronic ulcer of right heel and midfoot with fat layer exposed; Z79.4 Long term (current) use of insulin; Z79.84 Long term (current) use of oral hypoglycemic drugs | CPT/HCPCS: 11042 ==

== ENCOUNTER 2023-10-10 14:18 | Outpatient (CLI) | payer MEDICARE, BC, SELFPAY | END 2023-10-10 14:19 | disposition home or self-care (01) | PROVIDERS: Visit Provider Nurse Practitioner Family | DX: E11.621 Type 2 diabetes mellitus with foot ulcer (principal); L97.412 Non-pressure chronic ulcer of right heel and midfoot with fat layer exposed; I87.2 Venous insufficiency (chronic) (peripheral); Z79.4 Long term (current) use of insulin; Z79.84 Long term (current) use of oral hypoglycemic drugs | CPT/HCPCS: 11042 ==

== ENCOUNTER 2023-10-17 13:19 | Outpatient (CLI) | payer MEDICARE, BC, SELFPAY | END 2023-10-17 13:20 | disposition home or self-care (01) | LOC: WOUND 13:20 | PROVIDERS: Visit Provider Nurse Practitioner Family | DX: E11.621 Type 2 diabetes mellitus with foot ulcer (principal); L97.412 Non-pressure chronic ulcer of right heel and midfoot with fat layer exposed; Z79.84 Long term (current) use of oral hypoglycemic drugs | CPT/HCPCS: 15275; Q4151 ==

== ENCOUNTER 2023-10-23 14:19 | Outpatient (CLI) | payer MEDICARE, BC, SELFPAY | END 2023-10-23 14:20 | disposition home or self-care (01) | LOC: WOUND 14:20 | PROVIDERS: Visit Provider Physician Assistant | DX: E11.621 Type 2 diabetes mellitus with foot ulcer (principal); L97.412 Non-pressure chronic ulcer of right heel and midfoot with fat layer exposed; Z79.84 Long term (current) use of oral hypoglycemic drugs; Z79.85 Long-term (current) use of injectable non-insulin antidiabetic drugs | CPT/HCPCS: 11042 ==

== ENCOUNTER 2023-10-30 14:14 | Outpatient (CLI) | payer MEDICARE, BC, SELFPAY | END 2023-10-30 14:15 | disposition home or self-care (01) | LOC: WOUND 14:14 | PROVIDERS: Visit Provider Nurse Practitioner Family | DX: E11.621 Type 2 diabetes mellitus with foot ulcer (principal); L97.512 Non-pressure chronic ulcer of other part of right foot with fat layer exposed; Z79.4 Long term (current) use of insulin; Z79.84 Long term (current) use of oral hypoglycemic drugs | CPT/HCPCS: 15275; Q4151 ==

== ENCOUNTER 2023-11-06 14:17 | Outpatient (CLI) | payer MEDICARE, BC, SELFPAY ==
--- OUTSIDE RECORDS SUMMARY | 2023-11-06 14:19 | XMS_ITS | Clinical Summary ---
Author Name Unknown Organization [facility] Address [place], [place] [address] Care Team Providers Care Applied Exercise Physiologist Name Role Phone Post, Dave Velazquez MD Primary Care Provider [phone] Moshe Enciso MD Unavailable Arie Justin MD Unavailable [phone] [facility] [address], [facility] Unavailable Murali Hoover DPM Unavailable [phone] Allergies No known active allergies Medications Medication Sig Dispensed Refills Start Date End Date Status omega-3 fatty acids-vitamin E (FISH OIL) 1,000 mg cap Take 2 Capsules by mouth once daily. 0 06/02/2010 Active metFORMIN (GLUCOPHAGE) 1,000 mg tabletIndications: Type 2 diabetes mellitus with complication, without long-term current use of insulin (HC) Take 1 tablet by mouth 2 times daily with meals. 180 tablet 3 03/22/2018 Active coenzyme q10 100 mg cap Take 3 capsules by mouth once daily. 0 07/04/2019 Active cholecalciferol (VITAMIN D3) 2,000 unit capsule Take 1 Capsule (2,000 units) by mouth once daily. 0 04/21/2021 Active Lantus Solostar U-100 Insulin 100 unit/mL (3 mL) penIndications:Unc ontrolled type 2 diabetes mellitus with hyperglycemia (HC) Inject 24 units subcutaneous before bedtime. Product desired: LANTUS SOLOSTAR 1 Each 09/10/2021 Active cyanocobalamin (Vitamin B-12) 1,000 mcg tabletIndications: Vitamin B12 deficiency Take 1 Tablet (1,000 mcg) by mouth once daily. 90 Tablet 3 12/28/2021 Active atorvastatin (LIPITOR) 40 mg tablet Take 40 mg by mouth at bedtime. Active aspirin (ECOTRIN) 81 mg enteric coated tablet Take 81 mg by mouth once daily with a meal. Active polyethylene glycol (MIRALAX; GLYCOLAX) 17 g powder for solutionIndication s:Constipation due to pain medication Take 17 g by mouth or nasogastric tube once daily. 30 Each 05/31/2022 Active melatonin 3 mg tabletIndications: Insomnia, unspecified type Take 1 Tablet (3 mg) by mouth at bedtime. 06/02/2022 Active tamsulosin (FLOMAX) 0.4 mg capsuleIndications :Urinary retention Take 1 Capsule (0.4 mg) by mouth once daily after a meal. 30 Capsule 06/03/2022 Active finasteride (PROSCAR) 5 mg tabletIndications: BPH with urinary obstruction Take 1 Tablet (5 mg) by mouth every morning. 0 06/30/2022 Active wheelchairIndicati ons:Diabetic infection of right foot (HC) Wheelchair: Standard with leg rests: (Swing away) + cushion . Length of need: 99 months 1 Each 07/04/2022 Active clopidogreL (PLAVIX) 75 mg tablet Take 75 mg by mouth every morning. 06/28/2023 Active semaglutide (OZEMPIC) 1 mg/dose (4 mg/3 mL) pen Inj 1 time q 10 days (TAYLOR ROGERS) 11/05/2023 Active semaglutide (OZEMPIC) 1 mg/dose (4 mg/3 mL) Inject 1 mg subcutaneous every Monday. 02/02/2022 4 Discontinu ed(*Medica tion adjustment ) Active Problems Problem Noted Date Diagnosed Date Urinary retention 08/31/2022 Overview: Dr. Barrientos. Gordon placed during critical illness 03/2022. Outpatient cystoscopy without evidence of obstruction. Urodynamic studies done as outpatient. Able to remove catheter. S/P Left shoulder I&D DOS:05/03/2022 Dr. Nathan ceballos 07/19/2022 History of alcoholism 06/17/2022 Osteochondropathy 06/17/2022 Depression 06/17/2022 PFO with atrial septal aneurysm 06/17/2022 Anemia 06/17/2022 Abscess in epidural space of cervical spine 05/01 Overview: Treated with antibiotics. Staphylococcal arthritis of left shoulder 2021 Coronary artery disease due to calcified coronar y lesion 05/21/2021 Overview: Asymptomatic, discovered on CT. Inferoapical ischemia on myoview. Last done 2018. Sees Cardiology, managed medically. Diabetic foot ulcer 10/10/2013 GERD (gastroesophageal reflux disease) 3 ACP (advance care planning) 05/03/2013 Venous insufficiency 07/01/2010 Diabetes mellitus type II [...] for now. Pneumococcus had at age 63. Resolved Problems Problem Noted Date Diagnosed Date Resolved Date Diabetic infection of right foot 06/17/2022 10/06/2023 BPH with urinary obstruction 06/17/2022 08/31/2022 SURYA (acute kidney injury) 05/21/2022 Pneumonia due to infectious organism 05/20/2022 06/17/2022 Bacteremia 05/02/2022 06/17/2022 Non-healing non-surgical wound 05/02/2022 08/31/2022 Overview: Bottom LEFT foot Sepsis due to methicillin tejada sceptible Staphylococcus aureus (MSSA) without acute organ dysfunction 05/02/2022 06/17/2022 Irregular heart rhythm 05/01/202206/17 Left arm pain 05/01/2022 06/17/2022 Left shoulder pain 05/01/2022 COVID-19 virus infection 05/01/202202/2024 Bacteremia 06/04/2021 06/17/2022 Coronary artery calcification seen on CT scan 11/22/19 18 05/21/2021 Overview: Met with Cardiology and had perfusion imaging 2016. Osteomyelitis of left foot 07/03/2014 0 10/06/2023 Cellulitis of left foot 07/03/201403/01 Severe sepsis 07/03/2014 05/19/2021 Toe ulcer 01/23/2014 06/17/2022 Callus of foot 05/03/2013 06/17/2022 Osteomyelitis of ankle or foot, right, acute 3 07/03/2014 Dysphagia - soft foods 04/22/201310/05 Hypertrophy of prostate with urinary obstruction and [...] to Care Guide Pamella Brennan Phone number [phone]. Alcohol abuse 06/02/2010 03/26/2019 Overview: Sober since 2001. Great success with AA. 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 10/06/2023 Pyogenic arthritis of left shoulder region 06/17/2022 Encounters Date Type Department Care Team Description 11/03/2023 11:00 AM CDT Office Visit [facility] [address] [place] [address] Post, Dave Velazquez MD Form (diabetic shoes) 11/03/2023 Travel 10/25/2023 1:00 PM CDT Orders Only [facility] [address] [place] [address] Lab, [facility] 10/25/2023 Travel 10/06/2023 1:30 PM ASSEMBLY PRESS OPERATOR Phone Office Visit [facility] [address] [place] [address] Post, Dave Velazquez MD 10/03/2023 Travel 09/05/2023 Orders Only [facility] Scanner 1 scan: (1-Ord) [facility], MRI RT FOOT HINDFOOT THROUGH MIDFOOT WITHOUT WITH CONTRAST, 09/05/2023 09/04/2023 10:30 AM ASSEMBLY PRESS OPERATOR Ancillary Procedure [facility] [address] [place] [address] 09/04/2023 Travel from Last 3 Months Immunizations Name [...] History Relation Name Comments Cancer Father : Chuckie ageal Cancer Heart Disease Father bypass age [...] Sign Reading Time Taken Comments Blood Pressure 122/88 11/03/2023 11:13 AM CDT Pulse 105 11/03/2023 11:13 AM CDT Temperature 36.7 ??C (98 ??F) 06/29/2022 8:43 AM ASSEMBLY PRESS OPERATOR Respiratory Rate 18 06/29/2022 8:43 AM ASSEMBLY PRESS OPERATOR Oxygen Saturation 96% 07/21/2023 1:34 PM ASSEMBLY PRESS OPERATOR Inhaled Oxygen Concentration - - Weight 107 kg (236 lb) 11/03/2023 11:13 AM CDT w ith shoes Height 180.3 cm (5' 10.98) 07/21/2023 1:[address] Body Mass Index 32.93 07/21/2023 1:34 PM ASSEMBLY PRESS OPERATOR Plan of Treatment Health Maintenance Due Date Last Done Comments Hepatitis C screening for ag e 18-79 1964 Pneumococcal series for age 65+ (3 of 3 - PPSV23 or PCV20) 09/11/2016 09/11/2015, 11/03/2010, 04/19/2007 Depression screening for age 12+ 03/26/2020 03/26/20 19, 03/22/2018 Medicare Wellness for age 65+ 03/26/2020 03/26/2019, 03/22/2018 COVID-19 vaccine series ( season) [address] (for lung CA) ag e 50-80 05/10/2023 05/10/2022, 04/30/2022, 06/04/2021 Influenza for age 65+ 03/31/2024 04/21/2020 , 04/27/2018, 07/01/2016, Additional history exists BMI (ht and wt on same day) for age 18+ 07/21/2024 07/21/2023, 09/10/2021, 07/04/2019, Additional history exists Tetanus booster 09/20/2025 09/20/2015, 09/11/2015 Fecal testing non-DNA (FIT,FOBT,iFOBT) for age 45-75 Discontinued 07/03/2013 Tdap Completed 09/20/2015 Zoster (shingles) series for age 50+ Completed 07/16/2020, 04/21/2020 Medical Devices Implanted Type Area Mobile Nurse Device Identifier Shelf Expiration Date Model / Serial / Lot [id number] - [id number] Implanted:Qty: 1 on 09/20/2021 at [facility] Right: Foot [employer] AR-8725-4 4H / / Description:COMPRESSION FT S CREWS CANNULATED, 2.5 MICRO 44MM LOAD 4 7 [id number] [facility]-1530p - [id number] Implanted:Qty: 1 on 09/20/2021 at [facility] Right: Foot [employer] 03/30/2025 AR-1530P- CP / / [id number] Description:FOREFOOT INTERNA L BRACE IMPLANT SYSTEM, PEEK Screw 4.34p81nt Bio Compositetenodesis Disp Accounting Clerks Supervisor Pk - [id number] Implanted:Qty: 1 on 09/20/2021 at [facility] Right: Foot [employer] 08/30/2022 AR-1547CD S / / [id number] Ancr Sut 1.3mm Dx Fibertak Suturetape 2 Ndl 26.2mm 08/01 [facility] - [id number] Implanted:Qty: 1 on 09/20/2021 at [facility] Right: Foot [employer] 06/29/2026 AR-8990ST / / [id number] Explanted Type Area Mobile Nurse Device Identifier Shelf Expiration Date Model / Serial / Lot Wire Kirs .[id number] Smooth6/Pk 10000 Depuy/Héctor - [id number] Explanted:Qty: 1 on 09/20/2021 at [facility] Right: Foot [employer] / / Description:LOAD 4 8 [id number] [facility]8737-40 - [id number] Explanted:Qty: 1 on 09/20/2021 at [facility] Right: Foot [employer] AR-8737-40 / / Description:2.5 MICRO COMPRE SSION FT DRILLS AND DISPOSABLES, GUIDEWIRE W TROCAR TIP, THREADED, 0.34 IN (.86MM) LOAD 4 7 [id number] Procedures Procedure Name Priority Date/Time Associated Diagnosis Comments CBC WITH AUTO DIFFERENTIAL Routine 10/25/2023 12:59 PM CDT Diabetic ulcer of right heel associated with type 2 diabetes mellitus, unspecified ulcer stage (HC) TSH WITH REFLEX Routine 10/25/2023 12:59 PM CDT Depression, unspecified depression type CREATININE Routine 10/25/2023 12:59 PM CDT Diabetic ulcer of right heel associated with type 2 diabetes mellitus, unspecified ulcer stage (HC) CBC WITH AUTO DIFFERENTIAL Routine 10/25/2023 12:59 PM CDT Diabetic ulcer of right heel associated with type 2 diabetes mellitus, unspecified ulcer stage (HC) HEMOGLOBIN A1C Routine 10/25/2023 12:59 PM CDT Type 2 diabetes mellitus with diabetic neuropathy, unspecified whether jail insulin use (HC) SCAN-MRI INTERPRETATION 09/05/2023 12:00 AM ASSEMBLY PRESS OPERATOR ECHO TTE COMPLETE WO CONTRAST Routine 09/04/2023 11:00 AM ASSEMBLY PRESS OPERATOR SOB (shortness of breath) Fatigue, unspecified type Irregular heart beat CT CHEST PE STUDY Routine 05/10/2022 7:5 0 PM CDT OCCULT BLOOD IFOBT STOOL Routine 07/03/2013 7:00 PM ASSEMBLY PRESS OPERATOR Screening for colon cancer from Last 3 Months or Most Recently Relevant to Health Maintenance Results * (ABNORMAL) CBC WITH AUTO DIFFERENTIAL (10/25/2023 12:59 PM CDT) WHITE BLOOD COUNT 8.1 4.5 - 11.0 thou/cu mm 10/25/2023 1:36 PM CDT [facility] RED BLOOD COUNT 4.53 4.30 - 5.90 mil/cu mm 10/25/2023 1:36 PM CDT [facility] HEMOGLOBIN 12.4(L) 13.5 - 17.5 g/dL 10/25/2023 1:36 PM CDT [facility] HEMATOCRIT 38.9 37.0 - 53.0 % 10/25/2023 1:36 PM CDT [facility] MCV 86 80 - 100 fL 10/25/2023 1:36 PM CDT [facility] MCH 27.4 26.0 - 34.0 pg 10/25/2023 1:36 PM CDT [facility] MCHC 31.9(L) 32.0 - 36.0 g/dL 10/25/2023 1:36 PM CDT [facility] RDW 16.5(H) 11.5 - 15.5 % 10/25/2023 1:36 PM CDT [facility] PLATELET COUNT 175 140 - 440 thou/cu mm 10/25/2023 1:36 PM CDT [facility] MPV 10.3 6.5 - 11.0 fL 10/25/2023 1:36 PM CDT [facility] % NEUT 66.6 % 10/25/2023 1:36 PM CDT [facility] % LYMPH 21.6 % 10/25/2023 1:36 PM CDT [facility] % MONO 7.3 % 10/25/2023 1:36 PM CDT [facility] % EOS 4.3 % 10/25/2023 1:36 PM CDT [facility] % BASO 0.2 % 10/25/2023 1:36 PM CDT [facility] ABSOLUTE NEUTROPHILS 5.4 1.7 - 7.0 thou/cu mm 10/25/2023 1:36 PM CDT [facility] ABSOLUTE LYMPHOCYTES 1.7 0.9 - 2.9 thou/cu mm 10/25/2023 1:36 PM CDT [facility] ABSOLUTE MONOCYTES 0.6 <0.9 thou/cu mm 10/25/2023 1:36 PM CDT [facility] ABSOLUTE EOSINOPHILS 0.4 <0.5 thou/cu mm 10/25/2023 1:36 PM CDT [facility] ABSOLUTE BASOPHILS 0.0 <0.3 thou/cu mm 10/25/2023 1:36 PM CDT [facility] Blood BLOOD SPECIMEN / Unknown Venipuncture / Unknown 10/25/2023 12:59 PM CDT 10/25/2023 12:59 PM CDT Narrative [facility] - 10/25/2023 1:36 PM CDT This procedure was originally ordered at [facility]. This procedure was originally ordered at [facility]. Dave Garrett MD HEMATOLOGY [facility] [address] [place] [address], * TSH WITH REFLEX (10/25/2023 12:59 PM CDT) TSH 1.43 0.27 - 4.20 uIU/mL 10/25/2023 10:26 PM CDT [facility] Blood BLOOD SPECIMEN / Unknown Venipuncture / Unknown 10/25/2023 12:59 PM CDT 10/25/2023 12:[address] [facility] - 10/25/2023 10:26 PM CDT In Adults, TSH values between 5.00 and 10.00 uIU/ml do not necessarily indicate the presence of Hypothyroidism. Correlation with clinical findings such as presence of goiter and/or Thyroperoxidase (TPO) Antibody may be helpful. For more information please refer to LOWELL 2004; 291: 228-238. Dave Garrett MD CHEMISTRY [facility] [address] [place] [address], * (ABNORMAL) Creatinine (10/25/2023 12:59 PM CDT) eGFR 71(L) >90 mL/min/1.7 3m2 10/25/2023 10:26 PM CDT [facility] Comment:As of 2021, eG FR is calculated by the CKD-EPI creatinine equation without race adjustment. ??eGFR can be influenced by muscle mass, exercise, and diet. ??The reported eGFR is an estimation only and is only applicable if the renal function is stable. CREATININE 1.08 0.70 - 1.20 mg/dL 10/25/2023 10:26 PM CDT [facility] Blood BLOOD SPECIMEN / Unknown Venipuncture / Unknown 10/25/2023 12:59 PM CDT 10/25/2023 12:59 PM CDT Dave Garrett MD CHEMISTRY Performing Organization Address City/[facility]/ZIP Co de Phone Number [facility] [address] [place] [address], * (ABNORMAL) Hemoglobin A1c (monitoring) (10/25/2023 12:59 PM CDT) HEMOGLOBIN A1C MONITORING (POCT) 7.9(H) <=6.4 % 10/25/2023 3:27 PM CDT [facility] Blood BLOOD SPECIMEN / Unknown Venipuncture / Unknown 10/25/2023 12:59 PM CDT 10/25/2023 12:59 PM CDT Narrative [facility] - 10/25/2023 3:27 PM CDT ? (<=6.9%) ? Indicates good control ? (7.0% to 7.9%) ? Indicates fair control ? (>=8.0%) ? Indicates poor control ?? NOTE: ??These thresholds are guidelines and ?individual targets may vary. Falsely low levels may be seen with: Recent Transfusion, Recent Significant Blood Loss, Hemolytic Diseases, or Falsely elevated levels may be seen with: Untreated Anemias, Splenectomy ? Dave Garrett MD CHEMISTRY Performing Organization Address City/[facility]/ZIP Co de Phone Number [facility] [address] [place] [address], * SCAN-MRI INTERPRETATION (09/05/2023 12:00 AM ASSEMBLY PRESS OPERATOR) Anatomical Region Laterality Modality Other Scanner OTHER * ECHO TTE COMPLETE WO CONTRAST (09/04/2023 11:00 AM ASSEMBLY PRESS OPERATOR) EJECTION FRACTION 50-55% PROSOLV Anatomical Region Laterality Modality Ultrasound 09/04/2023 10:2 8 AM ASSEMBLY PRESS OPERATOR Narrative 09/04/2023 2:53 PM ASSEMBLY PRESS OPERATOR [address], [place] [address] Main: ? Transthoracic Echo Report MIGUELINA PÉREZ ID: [id number] Age: 78 : 1945 Ordering Provider: JOSE RICHARDSON Exam Date: 09/04/2023 10:28 Gender: M Ripshear Operator: NAHOMY Height: 70.1 in BSA: 2.22 m?? BP: 126 / 60 Weight: 231 lbs BMI: 33.1 kg/m?? HR: 77 Location: [facility] Rhythm: Normal Sinus Rhythm, With PVC Procedure [...] ZScore: 0.95 Jacinta Page MD (Electronically Signed) [facility] Accredited Site Final Date: 04 September 2023 14:52 ICD-10 Codes: R06.02; I49.9; R53.83 Procedure Note Jacinta Page MD - 09/04/[address], [place] [address] Main: Transthoracic Echo Report MIGUELINA PÉREZ ID: [id number] Age: 78 : 1945 Ordering Provider:JOSE RICHARDSON Exam Date: 09/04/2023 10:28 Gender: M Ripshear Operator: NAHOMY Height: 70.1 in BSA: 2.22 m?? BP: 126 / 60 Weight: 231 lbs BMI: 33.1 kg/m?? HR: 77 Location: [facility] Rhythm: Normal Sinus Rhythm, WithPVC Procedure Components: [...] echo contrast agent was not available at [facility] site. MEASUREMENTS (Male / Female) Normal Values [...] 2.82 mmHg Aortic Root ZScore: 0.95 Jacinta Tuohy MD (Electronically Signed) [facility] Accredited Site Final Date: 04 September 2023 14:52 ICD-10 Codes: R06.02; I49.9; R53.83 Jose Richardson MD ECHO ORD * CT Chest PE study TODAY (05/10/2022 7:50 PM CDT) Anatomical Region Laterality Modality CHEST, THORAX, HEART Computed To mography 05/10/2022 7:58 PM CDT Impressions 05/10/2022 7:58 PM CDT 1. No pulmonary embolism. 2. Mild emphysema suggested. Sequela of prior granulomatous infection. Please note that all CT scans at this facility use dose modulation, iterative reconstruction, and/or weight-based dosing when appropriate to reduce radiation dose to as low as reasonably achievable. Dictated by Parag Thomas MD @ 05/10/2022 7:58:56 PM (Electronically Signed) Narrative 05/10/2022 7:58 PM CDT For Patients: ??As a result of the Cures Act, medical imaging exams and procedure reports are released immediately into your electronic medical record. ??You may view this report before your referring provider. ??If you have questions, please contact your health care provider. INDICATION: History of hypoxia and tachycardia with COVID-19 infection. Assess for pulmonary embolism. COMPARISON: One of April 2022. TECHNIQUE: 80 mL Omnipaque 350 IV contrast. FINDINGS: Excellent bolus timing. No pulmonary embolism. Normal caliber of the central pulmonary arteries. Prominent coronary artery atherosclerosis. Multiple granulomas in the liver and spleen. Scattered punctate calcified granulomas in the lung parenchyma. Mild emphysematous lucent lobes diffusely. Hazy ground-glass and interstitial prominence in the inferior right upper lobe as before. No new focal airspace opacities. No pathologic adenopathy. No bone finding of significance. Procedure Note Parag Thomas MD - 05/10/2022 For Patients: As a result of the Cures Act, medical imagingexams and procedure reports are released immediately into your electronicmedical record. You may view this report before your referring provider.If you have questions, please contact your health care provider. INDICATION: History of hypoxia and tachycardia with COVID-19 infection. Assess forpulmonary embolism. COMPARISON: One of April 2022. TECHNIQUE: 80 mL Omnipaque 350 IV contrast. FINDINGS: Excellent bolus timing. No pulmonary embolism. Normal caliber of thecentral pulmonary arteries. Prominent coronary artery atherosclerosis.Multiple granulomas in the liver and spleen. Scattered punctate calcifiedgranulomas in the lung parenchyma. Mild emphysematous lucent lobesdiffusely. Hazy ground-glass and interstitial prominence in the inferiorright upper lobe as before. No new focal airspace opacities. No pathologicadenopathy. No bone finding of significance. IMPRESSION: 1. No pulmonary embolism. 2. Mild emphysema suggested. Sequela of prior granulomatous infection. Please note that all CT scans at this facility use dose modulation,iterative reconstruction, and/or weight-based dosing when appropriate toreduce radiation dose to as low as reasonably achievable. Dictated by Parag Thomas MD @ 05/10/2022 7:58:56 PM (Electronically Signed) Verna Christiansen MD CT * Occult Blood Stool (IFOBT) (07/03/2013 7:00 PM ASSEMBLY PRESS OPERATOR) STOOL BLOOD ,IFOBT Negative Negative, Invalid 07/04/2013 3:03 PM ASSEMBLY PRESS OPERATOR [facility] Stool specimen (specimen) STOOL SPECIMEN / Unknown Non-Blood / Unknown 07/03/2013 7:00 PM ASSEMBLY PRESS OPERATOR 07/04/2013 2:39 PM ASSEMBLY PRESS OPERATOR Dave Garrett MD LABORATORY [facility] [address] [place] [address] from Last 3 Months or Most Recently Relevant to Health Maintenance Advance Directives Documents on File Type Date Recorded Patient Water And Fire Technician Expl anation Healthcare Directive 05/21/2021 3:50 PM H EALTH CARE DIRECTIVE 2020 * Full Code (Latest Code Status on File) Date Activated Date Inactivated Comments 06/18/2022 7:33 AM 06/29/2022 4:12 PM Question Answer Comments Code Status Discussion: Reviewed Preferences * Full Code Date Activated Date Inactivated Comments 06/17/2022 6:52 PM 06/18/2022 7:33 AM Question Answer Comments Code Status Discussion: Unable to Assess Preferences, Provider to review later * Full Code Date Activated Date Inactivated Comments 05/01/2022 1:05 AM 05/30/2022 5:42 PM Question Answer Comments Code Status Discussion: Reviewed Preferences * Full Code Date Activated Date Inactivated Comments 09/20/2021 7:15 AM 09/20/2021 4:26 PM Question Answer Comments Code Status Discussion: Unable to Assess Preferences, Provider to review later * DNR Date Activated Date Inactivated Comments 06/03/2021 3:05 PM 06/09/2021 1:31 PM Question Answer Comments Code Status Discussion: Reviewed Preferences Care Teams Applied Exercise Physiologist Relationship Specialty Start Date End Date Post, Dave Velazquez MD PCP - General 06/02/10 Moshe Enciso MD [address] [place], [place] [id number] Endocrinology Endocrinology 01/04/18 [place] [address] [place], [place] [id number] Surgery - Ophthalmology 03/22/18 [facility] [address], [facility] [address] [place], [place] [address] 06/08/21 Murali Hoover DPM [address] [facility] [address] Surgery - Podiatric 01/03/23
--- OUTSIDE RECORDS SUMMARY | 2023-11-06 14:19 | XMS_ITS | Encounter Summary ---
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 Affairs Organization [facility] Affairs Address [address] [place] [address] Support Name Relationship Address Phone RHODA DOROTHY Next of Kin Unknown [phone] DOROTHY DUONG Emergency Contact Unknown Insurance Providers: [...] MEDIC ARE SUPPL EMENT Jul 31, 2018 [id number] [phone] RODNEYBRITTNEYKANE ALEX PATIENT [place] MED[place] ARE SUPPL EMENT Jul 31, 2018 [id number] [phone] BETOKANE JOHNSON [place] [facility] (WNR) MEDICARE ADVANTAGE [facility] (WNR) Jul 31, 2017 [id number] [phone] BETOKANE JOHNSON PATIENT [place] SU[place] MEDIC ARE SUPPL EMENT Jul 31, 2018 [id number] [phone] BETOKANE HOFFMANNN [place]IENT [place] MED[place] ARE SUPPL EMENT Jul 31, 2018 [id number] [phone] KANE PÉREZ PATIENT MEDICARE (WNR) MEDICARE (M) PART A May 31, 2011 PART A [id number] [phone] KANE PÉREZ ALEX PATIENT MEDICARE (WNR) MEDICARE (M) PART B May 31, 2011 PART B [id number] [phone] KANE PÉREZ PATIENT Selected Encounter This section includes the information on record at ID for the Encounter. Date/Time Encounter Type Encounter Description Reason Pro vider Source Oct 17, 2023 12:44 PM Outpatient Encounter TELEPHONE TRIAGE IHE Encounter Template Text not used by ID Plan of Treatment: Future Appointments (+ 6 months) and Future Tests (+/- 45 days) The Plan of Treatment section includes future care activities for the patient from all ID treatmentfacilities. This section includes future appointments and future orders which are active, pending or scheduled. Future Appointments This section includes appointments that were scheduled to occur 6 months from the date of the Encounter, up to a maximum of 20 appointments. The data comes from all ID treatment facilities. Appointment Date/Time Appointment Type Appointme nt Facility Name Nov 23, 2023 03:30 PM [facility] Social History: Smoking Status (Most current) and Tobacco Use (All prior to encounter date) This section includes the most current, and the historical, smoking and tobacco- related health factors from the ID facility where the Encounter took place. Current Smoking Status This section includes the most current smoking, or tobacco-related health factor, from the ID facility where the Encounter took place. Date/Time Current Smoking Status Comment Facil ity Aug 18, 2022 08:30 AM ID-TOBACCO FORMER USER [facility] Tobacco Use History This section includes a history of the smoking, or tobacco-related health factors, that were collected on or before the date of the Encounter. The data comes from the ID facility where the Encounter took place. Date/Time Smoking Status/Tobacco Use Comment F acility Aug 18, 2022 08:30 AM VA-TOBACCO QUIT 15 YRS OR MORE [facility] May 03, 2021 08:00 AM VA-TOBACCO FORMER USER [facility] May 03, 2021 08:00 AM ID-TOBACCO QUIT 15 YRS OR MORE [facility] Apr 21, 2020 09:00 AM VA-TOBACCO FORMER USER [facility] Apr 21, 2020 09:00 AM ID-TOBACCO QUIT 15 YRS OR MORE [facility] Apr 03, 2018 03:16 PM FORMER TOBACCO USE >1Y <7Y [facility] Mar 09, 2007 10:41 AM CURRENT TOBACCO USER [facility] Advance Directives: All historical and current Section Date Range: From patient's date of to the date document was created. This section includes ALL of a patient's completed or amended [place] Advance and Rescinded Directives. The entries below indicate that a directive exists for the patient, but an actual copy is not included with this document. The data comes from all ID facilities. Date Advance Directives Provider Source Jun 22, 2021 ADVANCE DIRECTIVE DISCUSSION ALLYSON GRAF [facility] Jun 22, 2021 ADVANCE DIRECTIVE ALLYSON GRAF Rhiannon SHERWINTanya [facility] Mar 09, 2007 ADVANCE DIRECTIVE SOLEDAD WOLFF [facility] Encounter Notes: All associated encounter notes This section contains the clinical notes associated to the Encounter. Date/Time Encounter Note(s) Provider Source Oct 17, 2023 12:44 PM ADMINISTRATIVE NOT E: LOCAL TITLE: CCC: SCHEDULING ADMINISTRATION STANDARD TITLE: ADMINISTRATIVE NOTE DATE OF NOTE: OCT 17, 2023@12:44 ENTRY DATE: OCT 17, 2023@12:44:55 AUTHOR: LILIBETH CLOUD EXP COSIGNER: URGENCY: STATUS: COMPLETED CCC: SCHEDULING ADMINISTRATION Has ADDENDA Primary Care Call Center Primary Care Provider Call. Please contact at the following number: [phone] - Cherrie Other: Cherrie, from [facility], would like to be contact to discuss diabetic footwear check up notes. Cherrie would like to discuss with provider who treat his diabetic care. Cherrie would like his last diabetic notes. Fax # provided: [phone] This note was created by a 3 [facility] Call Center ARABELLA/ROSHNI. Please do not alert this data analyst report writer by adding as a signer for future communications. Alerts are not monitored by this user, please reach out to [facility] Leadership instead if indicated. /peyton CLOUD VSN 23 [facility] CALL CENTER AMSA Signed: 10/17/2023 12:48 Receipt Acknowledged By: 10/17/2023 16:27 /peyton BRITO, PHARM D, BCPS Clinical Pharmacist Practitioner-[facility] 10/17/2023 ADDENDUM STATUS: COMPLETED attempted to reach cherrie--message left to CB. /peyton BRITO, PHARM D, BCPS Clinical Pharmacist Practition[facility] Signed: 10/17/2023 16:28 LILIBETH CLOUD [facility]
--- OUTSIDE RECORDS SUMMARY | 2023-11-06 14:19 | XMS_ITS | Clinical Summary ---
Author Name Unknown Organization [facility] Address [address] [place] [address] Care Team Providers Care Convict Guard Name Role Phone Post, Dave Wakefield Primary Care Provider [phone] Medications Medication Sig Dispensed Refills Start Date [...] Comments Blood Pressure 148/85 06/26/2018 5:58 PM PROCESS SPECIALIST Pulse 90 06/26/2018 5:58 PM PROCESS SPECIALIST Temperature 36.6 ??C (97.8 ??F) 06/26/2018 5:58 PM CS T Respiratory Rate 18 06/26/2018 5:58 PM PROCESS SPECIALIST Oxygen Saturation 95% 06/26/2018 7:00 PM PROCESS SPECIALIST Inhaled Oxygen Concentration - - Weight 112 kg (247 lb) 06/26/2018 5:58 PM PROCESS SPECIALIST Height 180.3 cm (5' 11) 06/26/2018 5:58 PM PROCESS SPECIALIST Body Mass Index 34.45 06/26/2018 5:58 PM PROCESS SPECIALIST Plan of Treatment Not on file Care Teams Convict Guard Relationship Specialty Start Date End Date Post, Dave Wakefield PCP - General Internal Medicine 06/26/18
--- OUTSIDE RECORDS SUMMARY | 2023-11-06 14:19 | XMS_ITS | Referral Summary ---
Author Name Unknown Organization [place] Address [address] [place] [address] Care Team Providers Care Senior Ui Web Developer Name Role Phone Post, Dave Wakefield Primary Care Provider Medications Medication Sig Dispensed Refills Start Date [...] Comments Blood Pressure 148/85 06/26/2018 5:58 PM ZIGZAGGER Pulse 90 06/26/2018 5:58 PM ZIGZAGGER Temperature 36.6 ??C (97.8 ??F) 06/26/2018 5:58 PM CS T Respiratory Rate 18 06/26/2018 5:58 PM ZIGZAGGER Oxygen Saturation 95% 06/26/2018 7:00 PM ZIGZAGGER Inhaled Oxygen Concentration - - Weight 112 kg (247 lb) 06/26/2018 5:58 PM ZIGZAGGER Height 180.3 cm (5' 11) 06/26/2018 5:58 PM ZIGZAGGER Body Mass Index 34.45 06/26/2018 5:58 PM ZIGZAGGER Plan of Treatment Not on file Care Teams Senior Ui Web Developer Relationship Specialty Start Date End Date Post, Dave Wakefield PCP - General Internal Medicine 06/26/18
--- OUTSIDE RECORDS SUMMARY | 2023-11-06 14:19 | XMS_ITS | Encounter Summary ---
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 Affairs Organization [facility] of Veter[facility] Affairs Address [address] [place] [address] Support Name Relationship Address Phone DOROTHY DUONG Next of Kin Unknown DOROTHY DUONG Emergency Contact Unknown [phone] Insurance Providers: All historical and current Section [...] MEDIC ARE SUPPL EMENT Jul 31, 2018 [id number] RODNEYBRITTNEYKANE ALEX [place] SUPPL EMENT Jul 31, 2018 [id number] [phone] RODNEYBRITTNEYKANE [place] [facility] (WNR) MEDICARE ADVANTAGE [facility] (WNR) Jul 31, 2017 [id number] [phone] RENBRITTNEYKANE ALEX PATIENT [place] MED[place] SUPPL EMENT Jul 31, 2018 [id number] [phone] RENBRITTNEYKANE ALEX [place] MED[place] ARE SUPPL EMENT Jul 31, 2018 [id number] [phone] RODNEYBRITTNEYKANE ALEX PATIENT MEDICARE (WNR) MEDICARE (M) PART A May 31, 2011 PART A [id number] [phone] BETOJU ALEX PATIENT MEDICARE (WNR) MEDICARE (M) PART B May 31, 2011 PART B [id number] [phone] KANE PÉREZ PATIENT Selected Encounter This section includes the information on record at [place] for the Encounter. Date/Time Encounter Type Encounter Description Reason Provider Source Oct 11, 2023 03:30 PM MTMS BY CELESTE SUAREZ 15 MIN TELEPHONE PRIMARY CARE ICD-10-CM E11.42 Type 2 diabetes mellitus with diabetic polyneuropathy SOLEDAD ELLIS IHE Encounter Template Text not used by [place] Assessments - Encounter Diagnoses This section includes the primary and secondary diagnoses documented for the Encounter. Date/Time Primary/Secondary Diagnosis Diagnosis Name Provider Source Oct 11, 2023 03:30 PM PRIMARY Type 2 diabetes mellitus with diabetic polyneuropathy SOLEDAD ELLIS [facility] Plan of Treatment: Future Appointments (+ 6 months) and Future Tests (+/- 45 days) The Plan of Treatment section includes future care activities for the patient from all [place] treatment[facility]il[facility] specialty hospital. This section includes future appointments and future orders which are active, pending or scheduled. Future Appointments This section includes appointments that were scheduled to occur 6 months from the date of the Encounter, up to a maximum of 20 appointments. The data comes from all [place] treatment facilities. Appointment Date/Time Appointment Type Appointme nt Facility Name Nov 23, 2023 03:30 PM AMBULATORY - NONE [facility] Social History: Smoking Status (Most current) and Tobacco Use (All prior to encounter date) This section includes the most current, and the historical, smoking and tobacco- related health factors from the [place] facility where the Encounter took place. Current Smoking Status This section includes the most current smoking, or tobacco-related health factor, from the [place] facility where the Encounter took place. Date/Time Current Smoking Status Comment Diego peng Aug 18, 2022 08:30 AM VA-TOBACCO FORMER USER [facility] Tobacco Use History This section includes a history of the smoking, or tobacco-related health factors, that were collected on or before the date of the Encounter. The data comes from the [place] facility where the Encounter took place. Date/Time Smoking Status/Tobacco Use Comment F acsamir Aug 18, 2022 08:30 AM [place]-TOBACCO QUIT 15 YRS OR MORE [facility] May 03, 2021 08:00 AM VA-TOBACCO FORMER USER [facility] May 03, 2021 08:00 AM VA-TOBACCO QUIT 15 YRS OR MORE [facility] Apr 21, 2020 09:00 AM VA-TOBACCO FORMER USER [facility] Apr 21, 2020 09:00 AM [place]-TOBACCO QUIT 15 YRS OR MORE [facility] Apr 03, 2018 03:16 PM FORMER TOBACCO USE >1Y <7Y [facility] Mar 09, 2007 10:41 AM CURRENT TOBACCO USER [facility] Advance Directives: All historical and current Section Date Range: From patient's date of to the date document was created. This section includes ALL of a patient's completed or amended [place] Advance and Rescinded Directives. The entries below indicate that a directive exists for the patient, but an actual copy is not included with this document. The data comes from all [place] facilities. Date Advance Directives Provider Source Jun 22, 2021 ADVANCE DIRECTIVE DISCUSSION ALLYSON GRAF [facility] Jun 22, 2021 ADVANCE DIRECT[address]YS[address] GRAF [facility] Mar 09, 2007 ADVANCE DIRECTIVE SOLEDAD WOLFF [facility] Encounter Notes: All associated encounter notes This section contains the clinical notes associated to the Encounter. Date/Time Encounter Note(s) Provider Source Oct 11, 2023 03:39 PM PHARMACY NOTE: LOCAL TITLE: PHARMACOTHERAPY-CLINICAL PHARMACY NOTE STANDARD TITLE: PHARMACY NOTE DATE OF NOTE: OCT 11, 2023@15:39 ENTRY DATE: OCT 11, 2023@15:39:34 AUTHOR: SOLEDAD ELLIS EXP COSIGNER: URGENCY: STATUS: COMPLETED Visit type: phone Goes by Ovidio PMH is significant for T2DM with chronic foot infections, GERD, and HLD. MIGUELINA PÉREZ is a 78 YO MALE contacted by [facility] for medication management. SUBJECTIVE: Following up on DM today. Last visit his glargine insulin dose was increased. He says things are going okay, no huge changes. has had an open wound on his foot since Jun 2022. going to [facility] each week. has HHN to do weekly dressing changes. has to keep weight off of it. it's getting smaller but slowly. did an MRI and some tendons were torn so will have to have this dealt with when the wound heals. no osteomyelitis shown but wound was infected with staph infection though, was on a course of antibiotics, completed this now. comanaged with nonVA primary provider and he reports that his nonVA primary ordered an A1c for him and he just has to go in and get it done and he plans to do this next week. Lifestyle: Tobacco: no EtOH: no Food and Drink: for overall changes he cut down on diet coke, only drinking 1/day and replacing the rest with water but mentions that he probably has too many cookies and that's what he has that he shouldn't be having Breakfast: egg/stoner/1 piece of toast on occasion a bkfst roll or milk/cereal Lunch: varies--sometimes skips or a sandwich or grapes/cheese, beef stew Evening meal: cardiac/vascular sonographer -- sandwich or fruit/cheese Snacks: more cookies lately Beverages: diet coke, water, coffee Exercise: minimal d/t foot wound and physical limitations from this ROS: (-) hypoglycemia symptoms (-) hyperglycemia symptoms (+) N/V -- occasional queezy stomach a couple days after he takes semaglutide and then it lasts a couple days and goes away. it always passes and even though he does sometimes vomit if he eats too much, he is not real bothered by it (-) diarrhea (-) constipation SMBG Readings: all morning, fasting readings AM 12-Sep 128 11-Sep 157 10-Sep 108 9-Mar 100 8-Mar 7-Mar 6-Mar 93 5-Mar 151 4-Mar 132 3-Mar 2-Sep 129 1-Sep 132 29-Feb 120 28-Feb 133 27-Feb 112 26-Feb 25-Feb 121 24-Feb 109 23-Feb 115 22-Feb 147 21-Feb 101 20-Feb 96 19-Feb 110 avg 121 ------Previous Readings-------- Jul f/u av Dec f/u ave: 139 Mar f/u ave: 124 Feb f/u ave: 138 Adherence to medications: no reported missed doses OBJECTIVE: ALLERGIES/ADR: VANCOMYCIN (Apr 27, 2018) MEDICATION RECONCILIATION: Active and Recently Outpatient Medications (excluding Supplies): Active Outpatient Medications Status ========= 1) ACCU-CHEK GUIDE (GLUCOSE) TEST STRIP USE [...] BY MOUTH EVERY ACTIVE DAY FOR PROSTATE *5) INSULIN,GLARGINE-YFGN 100UNIT/ML PEN 3ML INJECT 24 ACTIVE UNITS UNDER THE SKIN EVERY EVENING FOR DIABETES 6) LIDOCAINE 4% TOP CREAM APPLY MODERATE AMOUNT ACTIVE TOPICALLY THREE TIMES A DAY FOR PAIN 7) MENTHOL/M-SALICYLATE 10-15% TOP CREAM APPLY THIN ACTIVE LAYER TOPICALLY THREE TIMES A DAY FOR MUSCLE PAIN *8) METFORMIN HCL 1000MG TAB TAKE ONE TABLET BY MOUTH ACTIVE TWICE A DAY FOR DIABETES 9) OMEPRAZOLE 20MG EC CAP TAKE ONE CAPSULE BY MOUTH ACTIVE EVERY DAY ON AN EMPTY STOMACH, AT LEAST 30 MINUTES PRIOR TO A MEAL FOR GERD *10) SEMAGLUTIDE 1MG/0.75ML INJ PEN 3ML INJECT 1MG UNDER ACTIVE THE SKIN EVERY WEEK FOR DIABETES --taking every 10 days 11) TAMSULOSIN HCL 0.4MG CAP TAKE ONE CAPSULE BY MOUTH ACTIVE EVERY EVENING Active Non-VA Medications Status ========= 1) Non-VA ASCORBIC ACID 500MG TAB 500MG [...] 14:31 PLASMA .CREAT EGFR(CKD-E 70 Ref: >=60 Collection DT Spec HGBA1C 03/22/2023 13:57 BLOOD 7.1 H 08/18/2022 07:31 BLOOD 6.8 H 12/22/2021 14:31 BLOOD 8.2 H Collection DT Specimen Test Name Result Units Ref Range 05/03/2021 09:35 URINE ALB/CREAT RATIO,U 39.7 H mg/g creat Ref: <=29.9 04/19/2007 14:08 URINE ALB/CREAT RATIO,U 9.70 mg/gCreat 0 - 30 ASSESSMENT: #DM - Goal A1c <8% (FBG 80-160, PPG <210) d/t age/comorbidities per [place]/DoD guidelines. No recent A1c to assess. Fasting SMBG values have improved compared to last visit on higher dose of basal insulin, now within goal range without any reported low blood sugar episodes. No intolerable adverse effects reported. Still no post prandial readings to assess so updated A1c would be most helpful to get better assessment of overall glycemic control. Anticipate this to be done nonVA next week. No changes recommended at this time. PLAN: -continue glargine 24 units daily -continue metformin 1000mg BID -continue semaglutide 1mg [id number] #Disease-Specific Med Rec: Completed today #Labs: vet to have A1c done nonVA next week - Educated vet on indication/risks/benefits of new/changed medication. - Education provided on therapeutic nonpharmacologic management to achieve goals. - Vet advised of recent labs. - Damar verbalized understanding to all plans discussed today. Questions were answered to vet's satisfaction. Time spent: 15 minutes RTC: 4-6 weeks /toby/ SOLEDAD ELLIS PHARMTinyDTiny, [facility] CB Clinical [employer] Signed: 10/11/2023 16:04 SOLEDAD ELLIS [facility]
--- OUTSIDE RECORDS SUMMARY | 2023-11-06 14:19 | XMS_ITS | Continuity of Care Document ---
Author Name [facility] Organization [facility] Care Team Providers Care Coach Professional Athletes Name Role Phone [facility] Unavailable Unavailable Problems Combined list of problems from Department of Defense and Veterans Affairs facilities. It does not include entries that were removed or entered in error. Problem Status Onset Date Problem Type Date of Resolution Comments Source Exposure to potentially hazardous substance ([facility] [id number]) Active 10/05/19 24 Condition Oct 05, 2023 Entered By: VIJI VIVAS [facility]: [facility] Documentation Initiative [facility] Depressive Disorder NOS * (ICD-9-CM 311./300.4) Active Condition [facility] Diabetes mellitus (SNOMED CT 36625381) Active Condition [facility] Diabetic neuropathy Active Condition [facility] Foot Pain (ICD-9-CM 719.47) Active Condition Aug 26 10 Entered By: MALINA WORLEY Comment: left 5th metatarsal fracture [facility] History of amputation of lesser toe Active Condition [facility] Hyperlipidemia (SNOMED CT 02308766) Active Condition [facility] Hyperuricemia Active Condition [facility] Osteopenia Active Condition [place] Other Iatrogenic Hypotension Active Condition [place] [facility] Personal History of Alcoholism (ICD-9-CM V11.3) Active Condition [facility] Tobacco user (SNOMED CT 272815140) Active Condition [facility] Diagnosis: ICD-10-CM E11.42 Type 2 diabetes mellitus with diabetic polyneuropathy Active Diagnosis [facility] Diagnosis: ICD-10-CM E11.621 Type 2 diabetes mellitus with foot ulcer Active Diagnosis [facility] Diagnosis: ICD-10-CM Z77.29 Contact with and exposure to other hazardous substances Active Diagnosis [facility] Medications Combined list of outpatient medications from Department of Defense and Veterans Affairs facilities.Medications provided include 1) outpatient medications from the last 15 months, and 2) patient-reported medications. Medication Details Route Status Patient Instructions Prescription Expires Prescription Number Last Dispense Date Ordering Provider Order Date Source ASCORBIC ACID 500MG TAB TAKE ONE TABLET BY MOUTH TWICE A DAY ORALLY ACTIVE FISHCHARLEE oBwers Robinson 2022 [facility] ASPIRIN 81MG TAB,EC TAKE ONE TABLET BY MOUTH EVERY DAY ORALLY ACTIVE JEFF CHOUDHARY ER A [address] [facility] ATORVASTATI N [place] 40MG TAB TAKE ONE TABLET BY MOUTH EVERY DAY FOR CHOLESTE ROL ORALLY SUSPEND ED 04/11/2024 [id number] 4 FISHCHARLEE Bowers A [address] [facility] AT[place] 40MG TAB TAKE ONE TABLET BY MOUTH EVERY DAY FOR CHOLESTE ROL ORALLY DISCONT INUED 07/15/2023 [id number] NAFELICITYLTOD D 2022 [facility] CHOLECALCIF QUINTIN TAB TAKE 5000 UNITS BY MOUTH EVERY DAY ORALLY ACTIVE FISH, CHARLEE Robinson 2022 [facility] COENZYME Q10 CAP/TAB TAKE 1 CAPSULE BY MOUTH EVERY DAY ORALLY ACTIVE FISH, CHARLEE A 2022 [facility] CYANOCOBALA MIN 1000MCG TAB TAKE ONE TABLET BY MOUTH EVERY DAY ORALLY ACTIVE NAFELICITYLTOTwyla D 2021 [facility] DICLOFENAC NA 1% GEL,TOP APPLY 4 GRAMS TOPICALL Y FOUR TIMES A DAY NEEDED FOR JOINT PAIN TOPICA LLY ACTIVE 03/22/2024 [id number] ABE CHARLEE A 2022 [facility] FINASTERIDE 5MG TAB TAKE ONE TABLET BY MOUTH EVERY DAY FOR PROSTATE ORALLY ACTIVE 04/11/2024 [id number] 4 ABE CHARLEE A [address] [facility] FINASTERIDE 5MG TAB TAKE ONE TABLET BY MOUTH EVERY DAY FOR PROSTATE ORALLY DISCONT INUED 07/13/2023 [id number] 3 ABE CHARLEE A [address] [facility] FISH OIL 1000MG (500MG DHA/EPA) CAP,ORAL TAKE 1 CAPSULE BY MOUTH TWICE A DAY ORALLY ACTIVE JEFF CHOUDHARY ER A 2006 [facility] INSULIN,GLA RGINE,HUMAN 100 UNIT/ML INJ,SOLOSTA R,3ML INJECT 22 UNITS UNDER THE SKIN AT BEDTIME FOR DIABETES SUBCUT ANEOUS DISCONT INUED (EDIT) 09/30/2023 [id number] 3 NAIDL,TOD D 2022 [facility] INSULIN,GLA RGINE,HUMAN 100 UNIT/ML INJ,SOLOSTA R,3ML INJECT 24 UNITS UNDER THE SKIN AT BEDTIME FOR DIABETES SUBCUT ANEOUS DISCONT INUED (EDIT) 07/15/2023 [id number] 3 NAIDL,TOD D 2022 [facility] INSULIN,GLA RGINE-YFGN 100UNIT/ML INJ PEN,3ML INJECT 24 UNITS UNDER THE SKIN EVERY EVENING FOR DIABETES SUBCUT ANEOUS SUSPEND ED 08/29/2024 [id number] 4 NAIDL,TOD D 2023 [facility] INSULIN,GLA RGINE-YFGN 100UNIT/ML INJ PEN,3ML INJECT 22 UNITS UNDER THE SKIN AT BEDTIME FOR DIABETES SUBCUT ANEOUS DISCONT INUED (EDIT) 01/07/2024 [id number] 3 NAIDL,TOD D 2022 [facility] INSULIN,GLA RGINE-YFGN 100UNIT/ML INJ PEN,3ML INJECT 20 UNITS UNDER THE SKIN AT BEDTIME FOR DIABETES SUBCUT ANEOUS DISCONT INUED (EDIT) 12/08/2023 [id number] 3 NAIDL,TOD D 2022 [facility] INSULIN,GLA RGINE-YFGN 100UNIT/ML INJ PEN,3ML INJECT 18 UNITS UNDER THE SKIN AT BEDTIME FOR DIABETES SUBCUT ANEOUS DISCONT INUED (EDIT) 11/08/2023 [id number] 3 NAIDL,TOD D 2022 [facility] LIDOCAINE 4% CREAM,TOP APPLY MODERATE AMOUNT TOPICALL Y THREE TIMES A DAY FOR PAIN TOPICA LLY ACTIVE 03/22/2024 [id number] 3 CHARLEE FISH 2022 [facility] MAGNESIUM OXIDE 400MG TAB TAKE ONE TABLET BY MOUTH EVERY DAY ORALLY ACTIVE CHARLEE FISH 2022 [facility] MENTHOL/MET HYL SALICYLATE (10-15%) LOW CONC. CREAM,TOP APPLY THIN LAYER TOPICALL Y THREE TIMES A DAY FOR MUSCLE PAIN TOPICA LLY ACTIVE 03/22/2024 [id number] 3 CHARLEE FISH 2022 [facility] METFORMIN HCL 1000MG TAB TAKE ONE TABLET BY MOUTH TWICE A DAY FOR DIABETES ORALLY ACTIVE 04/11/2024 [id number] 4 CHARLEE FISH 2022 [facility] METFORMIN HCL 1000MG TAB TAKE ONE TABLET BY MOUTH TWICE A DAY FOR DIABETES ORALLY DISCONT INUED 07/15/2023 [id number] 3 NAIDL,TOD D 2022 [facility] OMEPRAZOLE 20MG CAP,EC TAKE ONE CAPSULE BY MOUTH EVERY DAY ON AN EMPTY STOMACH, AT LEAST 30 MINUTES PRIOR TO A MEAL FOR GERD ORALLY ACTIVE 03/22/2024 [id number] 3 CHARLEE FISH 2022 [facility] SEMAGLUTIDE 0.5MG/0.375 ML INJ,SOLN,PE N,1.5ML INJECT 0.5MG UNDER THE SKIN EVERY WEEK FOR DIABETES SUBCUT ANEOUS DISCONT INUED (EDIT) 07/15/2023 [id number] 3 NAIDL,TOD D 2022 [facility] SEMAGLUTIDE 1MG/0.75ML INJ,SOLN,PE N,3ML INJECT 1MG UNDER THE SKIN EVERY WEEK FOR DIABETES SUBCUT ANEOUS SUSPEND ED 11/08/2023 [id number] 4 NAIDL,TOD D 2022 [facility] TAMSULOSIN HCL 0.4MG CAP TAKE ONE CAPSULE BY MOUTH EVERY EVENING ORALLY ACTIVE 04/13/2024 [id number] 4 CHARLEE FISH 2022 [facility] TAMSULOSIN HCL 0.4MG CAP TAKE ONE CAPSULE BY MOUTH EVERY EVENING ORALLY DISCONT INUED 04/11/2024 [id number] 3 CHARLEE FISH A 2022 [facility] TAMSULOSIN HCL 0.4MG CAP TAKE ONE CAPSULE BY MOUTH EVERY EVENING ORALLY DISCONT INUED 08/04/2023 [id number] CHARLEE FISH A 2022 [facility] TURMERIC CAP/TAB TAKE 500 MG BY MOUTH TWICE A DAY ORALLY ACTIVE MATTY POWERS P 2018 [facility] Allergies, Adverse Reactions, Alerts Combined list of allergies from Department of Defense and Veterans Affairs facilities. It does not include entries that were removed or entered in error. Substance Category Reaction Severity Reaction type Status Date Reported Comments Source VANCOMYCIN Propensity to adverse reactions to drug (finding) [place] active 8 [facility] Immunizations Combined list of available immunizations from the Department of [facility] and Veterans Affairs facilities. 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 Comments Source ZOSTER RECOMBINANT 2 2019 187 complet ed [facility] INFLUENZA, INJECTABLE, QUADRIVALENT, PRESERVATIVE FREE 2019 150 complet ed [facility] ZOSTER RECOMBINANT 1 2019 187 complet ed [facility] INFLUENZA, HIGH-DOSE, QUADRIVALENT 2019 197 complet ed [facility] INFLUENZA, SEASONAL, INJECTABLE, PRESERVATIVE FREE 2017 140 complet ed [facility] INFLUENZA, INJECTABLE, QUADRIVALENT, PRESERVATIVE FREE 2017 150 complet ed [facility] INFLUENZA, INJECTABLE, QUADRIVALENT, PRESERVATIVE FREE 2015 150 complet ed [facility] TDAP 2015 115 complet ed [place] [facility] PNEUMOCOCCAL CONJUGATE PCV 13 2015 133 complet ed [facility] TD (ADULT), 5 LF TETANUS TOXOID, PRESERVATIVE FREE, ADSORBED 2015 113 complet ed [facility] INFLUENZA, INJECTABLE, QUADRIVALENT, PRESERVATIVE FREE 2013 150 complet ed [facility] PNEUMOCOCCAL POLYSACCHARID E PPV23 2010 33 complet ed [facility] INFLUENZA, UNSPECIFIED FORMULATION 2006 88 complet ed [facility] PNEUMOCOCCAL, UNSPECIFIED FORMULATION 2006 109 complet [facility] TD(ADULT) UNSPECIFIED FORMULATION 2006 NONE 139 complet [facility] TETANUS TOXOID, UNSPECIFIED FORMULATION 2006 NONE 112 complet [facility] Results Combined list of recent [...] Aug 21, 2022 03:48 PM Reporting Lab: [facility] [address] Performing Lab: [facility] [address] [facility] BASIC METABOLIC PANEL+MG CREATININE [MASS/VOLUM E] IN SERUM OR PLASMA 1.2 0.7 - 1.2 03/22 Specimen Type: PLASMA No comment entered. Ordering Provider: ME LEEROY FISH Report Released Date/Time: Aug 21, 2022 03:48 PM Reporting Lab: [facility] [address] Performing Lab: [facility] [address] [facility] BASIC METABOLIC PANEL+MG UREA NITROGEN [MASS/VOLUM E] IN SERUM OR PLASMA 15 8 - 26 03/22 Specimen Type: PLASMA No comment entered. Ordering Provider: ME LEEROY FISH Report Released Date/Time: Aug 21, 2022 03:48 PM Reporting Lab: [facility] [address] Performing Lab: [facility] [address] [place] [facility] BASIC METABOLIC PANEL+MG GLUCOSE [MASS/VOLUM E] IN SERUM OR PLASMA 145 70 - 100 03/22 H Specimen Type: PLASMA No comment entered. Ordering Provider: ME LEEROY FISH Report Released Date/Time: Aug 21, 2022 03:48 PM Reporting Lab: [facility] [address] Performing Lab: [facility] [address] [place] [facility] BASIC METABOLIC PANEL+MG SODIUM [MOLES/VOLU ME] IN SERUM OR PLASMA 138 136 - 145 03/22 Specimen Type: PLASMA No comment entered. Ordering Provider: ME LEEROY FISH Report Released Date/Time: Aug 21, 2022 03:48 PM Reporting Lab: [facility] [address] Performing Lab: [facility] [address] [place] [facility] BASIC METABOLIC PANEL+MG POTASSIUM [MOLES/VOLU ME] IN SERUM OR PLASMA 4.5 3.5 - 5.1 03/22 Specimen Type: PLASMA No comment entered. Ordering Provider: ME LEEROY FISH Report Released Date/Time: Aug 21, 2022 03:48 PM Reporting Lab: [facility] [address] Performing Lab: [facility] [address] [place] [facility] BASIC METABOLIC PANEL+MG CHLORIDE [MOLES/VOLU ME] IN SERUM OR PLASMA 101 98 - 107 03/22 Specimen Type: PLASMA No comment entered. Ordering Provider: ME LEEROY FISH Report Released Date/Time: Aug 21, 2022 03:48 PM Reporting Lab: [facility] [address] Performing Lab: [facility] [address] [place] [facility] BASIC METABOLIC PANEL+MG CARBON DIOXIDE, TOTAL [MOLES/VOLU ME] IN SERUM OR PLASMA 27 22 - 29 03/22 Specimen Type: PLASMA No comment entered. Ordering Provider: ME LEEROY FISH Report Released Date/Time: Aug 21, 2022 03:48 PM Reporting Lab: [facility] [address] Performing Lab: [facility] [address] [place] [facility] BASIC METABOLIC PANEL+MG CALCIUM [MASS/VOLUM E] IN SERUM OR PLASMA 10.0 8.4 - 10.2 03/22 Specimen Type: PLASMA No comment entered. Ordering Provider: ME LEEROY FISH Report Released Date/Time: Aug 21, 2022 03:48 PM Reporting Lab: [facility] [address] Performing Lab: [facility] [address] [place] [facility] BASIC METABOLIC PANEL+MG MAGNESIUM [MASS/VOLUM E] IN SERUM OR PLASMA 1.9 1.6 - 2.6 03/22 Specimen Type: PLASMA No comment entered. Ordering Provider: ME LEEROY FISH Report Released Date/Time: Aug 21, 2022 03:48 PM Reporting Lab: [facility] [address] Performing Lab: [facility] [address] [place] [facility] BASIC METABOLIC PANEL+MG ANION GAP IN SERUM OR PLASMA 10 5 - 15 03/22 Specimen Type: PLASMA No comment entered. Ordering Provider: ME LEEROY FISH Report Released Date/Time: Aug 21, 2022 03:48 PM Reporting Lab: [facility] [address] Performing Lab: [facility] [address] [place] [facility] BASIC METABOLIC PANEL+MG GLOMERULAR FILTRATION RATE/1.73 SQ M.PREDICTED [VOLUME RATE/AREA] IN SERUM, PLASMA OR BLOOD BY CREATININE- BASED FORMULA (CKD-EPI 2020) 63 60 03/22 Specimen Type: PLASMA No comment entered. Ordering Provider: ME LEEROY FISH Report Released Date/Time: Aug 21, 2022 03:48 PM Reporting Lab: [facility] [address] Performing Lab: [facility] [address] [place] [facility] BASIC METABOLIC PANEL+MG CREATININE [MASS/VOLUM E] IN SERUM OR PLASMA 0.9 0.7 - 1.2 08/18 Specimen Type: PLASMA No comment entered. Ordering Provider: ME LEEROY FISH Report Released Date/Time: December 22, 2021 03:46 PM Reporting Lab: [facility] [address] Performing Lab: [facility] [address] [place] [facility] BASIC METABOLIC PANEL+MG UREA NITROGEN [MASS/VOLUM E] IN SERUM OR PLASMA 12 8 - 26 08/18 Specimen Type: PLASMA No comment entered. Ordering Provider: ME LEEROY FISH Report Released Date/Time: December 22, 2021 03:46 PM Reporting Lab: [facility] [address] Performing Lab: [facility] [address] [place] [facility] BASIC METABOLIC PANEL+MG GLUCOSE [MASS/VOLUM E] IN SERUM OR PLASMA 184 70 - 100 08/18 H Specimen Type: PLASMA No comment entered. Ordering Provider: ME LEEROY FISH Report Released Date/Time: December 22, 2021 03:46 PM Reporting Lab: [facility] [address] Performing Lab: [facility] [address] [place] [facility] BASIC METABOLIC PANEL+MG SODIUM [MOLES/VOLU ME] IN SERUM OR PLASMA 137 136 - 145 08/18 Specimen Type: PLASMA No comment entered. Ordering Provider: ME LEEROY FISH Report Released Date/Time: December 22, 2021 03:46 PM Reporting Lab: [facility] [address] Performing Lab: [facility] [address] [place] [facility] BASIC METABOLIC PANEL+MG POTASSIUM [MOLES/VOLU ME] IN SERUM OR PLASMA 3.9 3.5 - 5.1 08/18 Specimen Type: PLASMA No comment entered. Ordering Provider: ME LEEROY FISH Report Released Date/Time: December 22, 2021 03:46 PM Reporting Lab: [facility] [address] Performing Lab: [facility] [address] [place] [facility] BASIC METABOLIC PANEL+MG CHLORIDE [MOLES/VOLU ME] IN SERUM OR PLASMA 102 98 - 107 08/18 Specimen Type: PLASMA No comment entered. Ordering Provider: ME LEEROY FISH Report Released Date/Time: December 22, 2021 03:46 PM Reporting Lab: [facility] [address] Performing Lab: [facility] [address] [place] [facility] BASIC METABOLIC PANEL+MG CARBON DIOXIDE, TOTAL [MOLES/VOLU ME] IN SERUM OR PLASMA 26 22 - 29 08/18 Specimen Type: PLASMA No comment entered. Ordering Provider: ME LEEROY FISH Report Released Date/Time: December 22, 2021 03:46 PM Reporting Lab: [facility] [address] Performing Lab: [facility] [address] [place] [facility] BASIC METABOLIC PANEL+MG CALCIUM [MASS/VOLUM E] IN SERUM OR PLASMA 9.4 8.4 - 10.2 08/18 Specimen Type: PLASMA No comment entered. Ordering Provider: ME LEEROY FISH Report Released Date/Time: December 22, 2021 03:46 PM Reporting Lab: [facility] [address] Performing Lab: [facility] [address] [place] [facility] BASIC METABOLIC PANEL+MG MAGNESIUM [MASS/VOLUM E] IN SERUM OR PLASMA 1.6 1.6 - 2.6 08/18 Specimen Type: PLASMA No comment entered. Ordering Provider: ME LEEROY FISH Report Released Date/Time: December 22, 2021 03:46 PM Reporting Lab: [facility] [address] Performing Lab: [facility] [address] [place] [facility] BASIC METABOLIC PANEL+MG ANION GAP IN SERUM OR PLASMA 9 5 - 15 08/18 Specimen Type: PLASMA No comment entered. Ordering Provider: ME LEEROY FISH Report Released Date/Time: December 22, 2021 03:46 PM Reporting Lab: [facility] [address] Performing Lab: [facility] [address] [place] [facility] BASIC METABOLIC PANEL+MG GLOMERULAR FILTRATION RATE/1.73 SQ M.PREDICTED [VOLUME RATE/AREA] IN SERUM, PLASMA OR BLOOD BY CREATININE- BASED FORMULA (CKD-EPI) 89 60 08/18 Specimen Type: PLASMA No comment entered. Ordering Provider: ME LEEROY FISH Report Released Date/Time: December 22, 2021 03:46 PM Reporting Lab: [facility] [address] Performing Lab: [facility] [address] [place] [facility] HEMOGLOBI N A1C HEMOGLOBIN A1C/HEMOGLO BIN.TOTAL IN [...] December 22, 2021 03:46 PM Reporting Lab: [facility] [address] Performing Lab: [facility] [address] [place] [facility] HEMOGLOBI N A1C HEMOGLOBIN A1C/HEMOGLO BIN.TOTAL IN BLOOD 8.2 4.0 - 6.0 12/22 H Specimen Type: BLOOD No comment entered. Ordering Provider: ME LEEROY FISH Report Released Date/Time: Aug 03, 2021 01:53 PM Reporting Lab: [facility] [address] Performing Lab: [facility] [address] [place] [facility] BASIC METABOLIC PANEL+MG CREATININE [MASS/VOLUM E] IN SERUM OR PLASMA 1.1 0.7 - 1.2 12/22 Specimen Type: PLASMA No comment entered. Ordering Provider: ME LEEROY FISH Report Released Date/Time: Aug 03, 2021 01:53 PM Reporting Lab: [facility] [address] Performing Lab: [facility] [address] [place] [facility] BASIC METABOLIC PANEL+MG UREA NITROGEN [MASS/VOLUM E] IN SERUM OR PLASMA 15 8 - 26 12/22 Specimen Type: PLASMA No comment entered. Ordering Provider: ME LEEROY FISH Report Released Date/Time: Aug 03, 2021 01:53 PM Reporting Lab: [facility] [address] Performing Lab: [facility] [address] [place] [facility] BASIC METABOLIC PANEL+MG GLUCOSE [MASS/VOLUM E] IN SERUM OR PLASMA 174 74 - 100 12/22 H Specimen Type: PLASMA No comment entered. Ordering Provider: ME LEEROY FISH Report Released Date/Time: Aug 03, 2021 01:53 PM Reporting Lab: [facility] [address] Performing Lab: [facility] [address] [place] [facility] BASIC METABOLIC PANEL+MG SODIUM [MOLES/VOLU ME] IN SERUM OR PLASMA 141 136 - 145 12/22 Specimen Type: PLASMA No comment entered. Ordering Provider: ME LEEROY FISH Report Released Date/Time: Aug 03, 2021 01:53 PM Reporting Lab: [facility] [address] Performing Lab: [facility] [address] [place] [facility] BASIC METABOLIC PANEL+MG POTASSIUM [MOLES/VOLU ME] IN SERUM OR PLASMA 4.2 3.5 - 5.1 12/22 Specimen Type: PLASMA No comment entered. Ordering Provider: ME LEEROY FISH Report Released Date/Time: Aug 03, 2021 01:53 PM Reporting Lab: [facility] [address] Performing Lab: [facility] [address] [place] [facility] BASIC METABOLIC PANEL+MG CHLORIDE [MOLES/VOLU ME] IN SERUM OR PLASMA 101 98 - 107 12/22 Specimen Type: PLASMA No comment entered. Ordering Provider: ME LEEROY FISH Report Released Date/Time: Aug 03, 2021 01:53 PM Reporting Lab: [facility] [address] Performing Lab: [facility] [address] [place] [facility] BASIC METABOLIC PANEL+MG CARBON DIOXIDE, TOTAL [MOLES/VOLU ME] IN SERUM OR PLASMA 30 22 - 29 12/22 H Specimen Type: PLASMA No comment entered. Ordering Provider: ME LEEROY FISH Report Released Date/Time: Aug 03, 2021 01:53 PM Reporting Lab: [facility] [address] Performing Lab: [facility] [address] [place] [facility] BASIC METABOLIC PANEL+MG CALCIUM [MASS/VOLUM E] IN SERUM OR PLASMA 10.1 8.4 - 10.2 12/22 Specimen Type: PLASMA No comment entered. Ordering Provider: ME LEEROY FISH Report Released Date/Time: Aug 03, 2021 01:53 PM Reporting Lab: [facility] [address] Performing Lab: [facility] [address] [place] [facility] BASIC METABOLIC PANEL+MG MAGNESIUM [MASS/VOLUM E] IN SERUM OR PLASMA 1.8 1.6 - 2.6 12/22 Specimen Type: PLASMA No comment entered. Ordering Provider: ME LEEROY FISH Report Released Date/Time: Aug 03, 2021 01:53 PM Reporting Lab: [facility] [address] Performing Lab: [facility] [address] [place] [facility] BASIC METABOLIC PANEL+MG ANION GAP IN SERUM OR PLASMA 10 5 - 15 12/22 Specimen Type: PLASMA No comment entered. Ordering Provider: ME LEEROY FISH Report Released Date/Time: Aug 03, 2021 01:53 PM Reporting Lab: [facility] [address] Performing Lab: [facility] [address] [place] [facility] BASIC METABOLIC PANEL+MG CREAT EGFR(CKD-EP I) 70 60 12/22 Specimen Type: PLASMA No comment entered. Ordering Provider: ME LEEROY FISH Report Released Date/Time: Aug 03, 2021 01:53 PM Reporting Lab: [facility] [address] Performing Lab: [facility] [address] [place] [facility] Vital Signs Combined list of inpatient and outpatient Vital Signs from Department of Defense and Veterans Affairs, ranging from 12 months to all on record, depending upon the facility. Vital Sign Value Date Comments Source SYSTOLIC BLOOD PRESSURE 108 03/22/2023 14:13:04 [facility] DIASTOLIC BLOOD PRESSURE 77 03/22/2023 14:13:04 [facility] PULSE OXIMETRY 95% 03/22/2023 14:13:04 [facility] WEIGHT 221 03/22/2023 14:13:04 [facility] BMI 31kg/m2 03/22/2023 14:13:04 [facility] PAIN 0 03/22/2023 14:13:04 [facility] HEIGHT 71 03/22/2023 14:13:04 [facility] CLINICS TEMPERATURE 97.5 03/22/2023 14:13:04 [facility] PULSE 110 03/22/2023 14:13:04 [facility] RESPIRATION 18 03/22/2023 14:13:04 [facility] Encounters Combined list of: 1) 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 2) Encounters from the Department of Defense facilities going back up to 280 months. Location Location Details Encounter Type Encounter Number Reason For Visit Attending Provider ADM Date DC Date Status Disposition Source [place] [facility] Outpatient Encounter [id number] 05/11 [facility] [place] [facility] Outpatient Encounter [id number] SA RA Ana RODRIGUEZ 05/13 [facility] [place] [facility] Outpatient Encounter [id number] 05/19 [facility] [place] [facility] Outpatient Encounter [id number] 05/23 [facility] [place] [facility] Outpatient Encounter [id number] 05/25 [facility] [place] [facility] Outpatient Encounter [id number] 05/27 [facility] [place] [facility] Outpatient Encounter [id number] 05/30 [place] [facility] [place] [facility] Outpatient Encounter [id number] 06/06 [place] [facility] [place] [facility] Outpatient Encounter [id number] 06/14 [place] [facility] [place] [facility] Outpatient Encounter [id number] 06/16 [place] [facility] [place] [facility] Outpatient Encounter [id number] SA RA Ana RODRIGUEZ 06/18 [place] [facility] [place] [facility] Outpatient Encounter [id number] Kimberly GRIFFIN 07/12 [place] [facility] [place] [facility] HC PRO PHONE CALL 11-20 MIN [id number] Diagnos is: ICD-10- CM E11.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
NAIDJigneshKARI 07/14 [place] [facility] [place] [facility] Outpatient Encounter [id number] SATINDER SMITH 07/21 [place] [facility] [place] [facility] OFFICE O/P EST MOD 30-39 MIN [id number] Diagnos is: ICD-10- CM E11.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
Rhiannon FISH 08/18 [place] [facility] [place] [facility] Outpatient Encounter [id number] 08/21 [place] [facility] [place] [facility] HC PRO PHONE CALL 11-20 MIN [id number] Diagnos is: ICD-10- CM E11.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
NAIDL,KARI 08/29 [place] [facility] [place] [facility] HC PRO PHONE CALL 11-20 MIN [id number] Diagnos is: ICD-10- CM E11.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
NAIDL,KARI 09/29 [place] [facility] HC PRO PHONE CALL 21-30 MIN [id number] Diagnos is: ICD-10- CM E11.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
NAIDL,KARI 11/07 [place] [facility] HC PRO PHONE CALL 11-20 MIN [id number] Diagnos is: ICD-10- CM E11.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
NAIDL,KARI 12/[address] [facility] Outpatient Encounter [id number] Diagnos is: ICD-10- CM Z77.29 Contact with and exposur e to other hazardo us substan monica<br/ > JEANINE,MATH ILDE J 12/27 [facility] Outpatient Encounter [id number] Diagnos is: ICD-10- CM Z77.29 Contact with and exposur e to other hazardo us substan monica<br/ > JEANINE,MATH ILDE J 12/27 [facility] HC PRO PHONE CALL 11-20 MIN [id number] Diagnos is: ICD-10- CM E11.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
NAIDL,KARI 01/06 [place] [facility] [place] [facility] Outpatient Encounter [id number] 03/10 [place] [facility] HC PRO PHONE CALL 11-20 MIN [id number] Diagnos is: ICD-10- CM E11.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
NAIDL,KARI 03/14 [facility] OFFICE O/P EST LOW 20-29 MIN [id number] Diagnos is: ICD-10- CM E11.621 Type 2 diabete s mellitu s with foot ulcer<b r/> Rhiannon FISH A 03/22 [facility] HC PRO PHONE CALL 21-30 MIN [id number] Diagnos is: ICD-10- CM E11.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
NAIDL,KARI 04/[address] [facility] HC PRO PHONE CALL 21-30 MIN [id number] Diagnos is: ICD-10- CM E11.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
NAIDL,KARI 07/11 [facility] MTMS BY PHARM ADDL 15 MIN [id number] Diagnos is: ICD-10- CM E11.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
AWKERSOLEDAD L 10/10 [facility] Outpatient Encounter [id number] 10/16 [facility] Social History Combined list of available smoking, tobacco, and other social history from Department of Defense and Veterans Affairs facilities. Social History Type Response Date Comment [facility] e Tobacco smoking status [facility]-TOBACCO QUIT 15 YRS OR MORE 08/18/2022 [facility] History of tobacco use [facility]ACCO FORMER USER 08/18/2022 [facility] History of tobacco use [facility]-TOBACCO FORMER USER 05/03/2021 [facility] History of tobacco use [place]-TOBACCO FORMER USER 04/21/2020 [facility] History of tobacco use FORMER TOBACCO US E >1Y <7Y 04/03/2018 [facility] History of tobacco use CURRENT TOBACCO USER 03/09/2007 [facility] Plan of Care List of future care activities from [facility] facilities. Additional future care activities may be listed in the Assessment and Plan section. Date/Time Care Activity Care Activity Detail Facili ty 11/23/2023 AMBULATORY - NONE AMBULATORY - NONE [facility] Advance Directives List of completed, amended, or rescinded Advance Directives on record at [facility] facilities. An actual copy of the Directive is not included. Date Advance Directive Provider Source 06/22/2021 ADVANCE DIRECTIVE DISCUSSION ALLYSON GRAF [facility] 06/22/2021 ADVANCE DIRECTIVE ALLYSON GRAF [facility] 03/09/2007 ADVANCE DIRECTIVE SOLEDAD WOLFF [facility]
--- OUTSIDE RECORDS SUMMARY | 2023-11-06 14:20 | XMS_ITS | Data Portability ---
Author Name Unknown Address [address] [place] [address] Phone [phone] Organization [facility] Address [address] [place] [address] Care Team Providers Care Airplane Mechanic Name Role Phone POST, SUE Primary Care Provider [phone] Assessment Encounter Date Assessment Date Assessment LastModified [...] to efficacy (6+ months) and side effects [email or web address] Not available 06/16/2022 18:10:42 06/30/2022 06/30/2022 77M [...] of Hospitaliza tion for UTI. 2022 023 [facility], [address], [place], [address], 3 10:05:08 urinalysis, dipstick 2022 023 [facility], [address], [place], [address], 3 12:03:37 Referral None recorded. Procedures None recorded. Surgeries None recorded. Imaging None recorded. Medication Orders tamsulosin 0.4 mg capsule 2021 022 [email or web address] 2 [facility], [address] , [place], [address], 2 18:25:29 finasteride 5 mg tablet 2021 022 [email or web address] 2 [facility], [address], [place], [address], 2 18:25:29 Patient TargetsNo targets recorded. Patient Instructions Encounter Date Encounter Id Patient Instructions Last Modified By Organization Details Last Modified Time 11/04/2022 [id number] Pt has F/U appt with Dr Barrientos in [place] on 11/11/2022 @ 3:10pm to review UDS. Not available 10/19/2022 15:50:04 09/23/2022 [id number] Patient to call clinic with questions or concerns. Advised patient to increase water intake and to keep 4 week appointment for next catheter change. [email or web address] Not available 09/23/2022 13:22:30 08/03/2022 [id number] Will reach out t o [place] about patient [email or web address] Not available 08/03/2022 11:17:30 Reason for Referral None Reported. Results Created Date Observation Date Name Description Value Unit Range Abnormal Flag LastModifiedBy Organization Detail LastModifiedTime 11/05/1911/04/2022 URINE CULTU RE final report microb iology result s abnormal Not Available [facility] [address], [place], [address], 11/07/2022 10:05:08 11/05/19 23 11/04/2022 urina lysis , dipst ick Color-Status Straw Not Available [facility] [address], [place], [address], 11/04/2022 12:02:10 11/05/19 23 11/04/2022 urina lysis , dipst ick Clarity-Stat us Slight ly Cloudy Not Available [facility] [address], [place], [address], 11/04/2022 12:02:10 11/05/19 23 11/04/2022 urina lysis , dipst ick Glucose-Stat us 500 Not Available [facility] [address], [place], [address], 11/04/2022 12:02:10 11/05/19 23 11/04/2022 urina lysis , dipst ick Bilirubin-St atus Negati ve Not Available [facility] [address], [place], [address], 11/04/2022 12:02:10 11/05/19 23 11/04/2022 urina lysis , dipst ick Ketones-Stat us Negati ve Not Available [facility] [address], [place], [address], 11/04/2022 12:02:10 11/05/19 23 11/04/2022 urina lysis , dipst ick Sp Sheldon-Stat us 1.015 Not Available [facility] [address], [place], [address], 11/04/2022 12:02:10 11/05/19 23 11/04/2022 urina lysis , dipst ick pH-Status 6.5 Not Available [facility] [address], [place], [address], 11/04/2022 12:02:10 11/05/19 23 11/04/2022 urina lysis , dipst ick Protein-Stat us 5.0 Not Available [facility] [address], [place], [address], 11/04/2022 12:02:10 11/05/19 23 11/04/2022 urina lysis , dipst ick Urobilinogen -Status 0.2 Not Available [facility] [address], [place], [address], 11/04/2022 12:02:10 11/05/19 23 11/04/2022 urina lysis , dipst ick Nitrates-Sta tus positi ve Not Available [facility] [address], [place], [address], 11/04/2022 12:02:10 11/05/19 23 11/04/2022 urina lysis , dipst ick Blood-Status Large Not Available [facility] [address], [place], [address], 11/04/2022 12:02:10 11/05/19 23 11/04/2022 urina lysis , dipst ick Leuko-Status Large Not Available [facility] [address], [place], [address], 11/04/2022 12:02:10 11/05/19 23 11/04/2022 urina lysis , dipst ick Specimen Type Cathet erized Not Available [facility] [address], [place], [address], 11/04/2022 12:02:10 11/05/19 23 11/04/2022 urina lysis , dipst ick Performed by Jake ross Not Available [facility] [address], [place], [address], 11/04/2022 12:02:10 Result Notes None recorded. Problems Name Status Onset Date Resolution Date Notes Provider Name and Address Organization Details Recorded Time Retention of urine Active 3 Jenna song [facility] 10/21/2022 13:15:43 Problem Notes None recorded. Procedures Surgical History Date Name Laterality Status Provider Name and Address Organization Details Recorded Time 3 Fill and Pull/Voiding Trial/TOV completed OLMAN Chappell [facility] 12/09/2022 11:59:45 3 Urodynamic Studies completed Deyanira song [facility] 11/04/2022 12:19:38 3 Terry Catheter Insertion completed Deyanira song [facility] 11/04/2022 12:21:21 3 Urethral Catheter Change completed Jenna Harris null, [facility] 10/21/2022 13:18:32 3 Urethral Catheter Change completed Nenita Flores null, [facility] 09/23/2022 13:21:12 3 Terry Catheter Insertion completed Roula Beltran null, [facility] 08/03/2022 11:16:51 3 Fill and Pull/Voiding Trial/TOV completed Roula Beltran null, [facility] 08/03/2022 11:16:41 2 Cystoscopy- male completed Kristopher Barrientos MD, PHD [address] [place] [address],[address], [place], [address], [facility] 06/30/2022 09:37:30 2 Urethral Catheter Change completed Carlos Mix null, [facility] 06/30/2022 09:49:15 2 Terry Catheter Insertion completed Еленаarminda Josue null, [facility] 06/16/2022 15:03:22 2 Fill and Pull/Voiding Trial/TOV completed Roula Tony PA-C [address] [place] [address], [address], [facility] 06/16/2022 18:06:50 Cataract Surgery completed Greenleafarminda Josue [facility] 06/16/2022 12:30:25 Orthopedic Surgery completed Greenleafarminda Josue [facility] 06/16/2022 12:30:33 Imaging Results None recorded. [...] Updated DateTime 06/16/2022 180.34 cm 30 kg/m2 08271.[address] [facility] 06/16/2022 12:27:07 Date Recorded Body height Provider Name an d Address Organization Details Last Updated DateTime 06/30/2022 [address] [facility] 06/30/2022 09:27:04 Date Recorded Body height Provider Name an d Address Organization Details Last Updated DateTime 09/23/2022 180.34 cm Nenita for[facility] 09/23/2022 13:17:39 Date Recorded Body height Body mass index (BMI) Body weight Provider Name and Address Organization Details Last Updated DateTime 11/11/2022 180.34 cm 30 kg/m2 93562.36 g Amanda song [facility] 11/11/2022 16:25:51 Social History Question Answer Notes LastModified by Organizat ion Details LastModified Time Tobacco Smoking Status Former Smoker Juanito song [facility] 06/16/2022 12:29:38 What Is Your Level [...] ca rdiac disorder Medical History Condition Response Diabetes Y Sexually Transmitted Infection N Bleeding Disorder N Other N High Blood Pressure N Kidney Stones N Cancer N Depression N Lung Disease N High Cholesterol N GERD/Acid Reflux N Heart Disease Y Past Encounters Encounter ID Performer Location Encounter Start Date Encounter Closed Date Diagnosis/Indication Diagnosis SNOMED-CT Code [id number] Roula Tony PA-C [facility] [address] [place] [address] 06/16/2022 11:30:09 06/20/2022 08:36:10 Retention of urine [id number] Benign pro static hyperplasia with outflow obstruction [id number] Kristopher bains MD, PHD [facility] [address] [place] [address] 06/30/2022 08:46:23 07/04/2022 11:29:58 Retention of urine [id number] Benign pro static hyperplasia with outflow obstruction [id number] Roulaangi Beltran [facility] [address] [place] [address] 08/03/2022 10:27:16 08/05/2022 11:54:14 Retention of urine [id number] Nenitaaranza Flores [facility] [address] [place] [address] 09/23/2022 10:30:04 09/26/2022 14:37:37 [id number] Kristopher bains MD, PHD [facility] [address] [place] [address] 11/04/2022 10:41:00 11/10/2022 13:37:32 Benign prostatic hyperplasia with outflow obstruction [id number] Retention of urine 37565 4002 Microscopic hematuria 19 [id number] Jenna Steven [facility] [address] [place] [address] 10/21/2022 11:27:55 10/24/2022 11:49:09 Retention of urine [id number] Kristopher bains MD, PHD [facility] [address] [address] 11/11/2022 16:25:28 11/17/2022 17:02:38 Retention of urine [id number] Benign pro static hyperplasia with outflow obstruction [id number] Jenna Harris [facility] [address] [address] 12/09/2022 10:56:01 12/12/2022 15:10:14 Retention of urine 716392062 Health Concerns Section Related Observation LastModified by Organization Detai ls LastModified Time None Recorded Concern Status LastModified by Organization Details LastModified Time None Recorded Advance Directives Directive None Recorded Payers Encounter Date Sequence Insurance Name Policy Number Policy Molina Covered Member ID Molina Member ID Guarantor Name 12/09/2022 1 [place] [employer] Tom B Renaux [id number] Tom B Renaux 12/09/2022 2 [place] [id number] Tom B Renaux [id number] Tom B Renaux 11/11/2022 1 [place] [employer] Tom B Renaux [id number] Tom B Renaux 11/11/2022 2 [place] [id number] Tom B Renaux [id number] Tom B Renaux 11/04/2022 1 [place] [employer] Tom B Renaux [id number] Tom B Renaux 11/04/2022 2 [place] [id number] Tom B Renaux [id number] Tom B Renaux 10/21/2022 1 [place] [employer] Tom B Renaux [id number] Tom B Renaux 10/21/2022 2 [place] [id number] Tom B Renaux [id number] Tom B Renaux 09/23/2022 1 [place] [employer] Tom B Renaux [id number] Tom B Renaux 09/23/2022 2 [place] [id number] Tom B Renaux [id number] Tom B Renaux 08/03/2022 1 [place] [employer] Tom B Renaux [id number] Tom B Renaux 08/03/2022 2 [place] [id number] Tom B Renaux [id number] Tom B Renaux 06/30/2022 1 [place] [employer] Tom B Renaux [id number] Tom B Renaux 06/30/2022 2 [place] [id number] Tom B Renaux [id number] Tom B Renaux 06/16/2022 1 [place] [employer] Tom B Renaux [id number] Tom B Renaux 06/16/2022 2 [place] [id number] Tom B Renaux [id number] Tom B Renaux Notes Date Note Type Note Provider Name and Address Organization Details Recorded Time 06/16/2022 text/html HPI Notes: 77M w ith urinary retention. Here with . Recent hospitalization at [facility] from 04/30-05/30 for MSSA bacteremia with C-spine [...] h/o stones. Labs: 05/21/22 UA 3-5 RBC, 11-25 WBC, mod leuks, neg nit, rare bacteria; no UCx performed Imaging: PMH: PSH: Soc: Occ: Tobacco: EtOH: FHx: Roula Tony PA-C [address], [place], [address], [facility] 06/16/2022 18:10:53 06/30/2022 text/html HPI Notes: 77M w ith urinary retention. Here for cysto. Saw LILIBETH Nix. Recent hospitalization at [facility] from 04/30-05/30 for MSSA bacteremia with C-spine [...] weight bear. Labs: 05/21/22 UA 3-5 RBC, 11-25 WBC, mod leuks, neg nit, rare bacteria; no UCx performed Imaging: PMH: PSH: Soc: Occ: Tobacco: EtOH: FHx: Kristopher Barrientos MD, PHD [address], [place], [address], [facility] 06/30/2022 14:06:37 09/23/2022 text/html HPI Notes: [...] 4 weeks for next catheter change. Nenita Sandramahamed song [facility] 09/23/2022 13:22:32 10/21/2022 text/html HPI Notes: Pt he re for catheter change Jenna Harris nohemi [facility] 10/21/2022 13:21:54 11/11/2022 text/html HPI Notes: 77M w ith urinary retention. Hospitalization at [facility] from 04/30-05/30 for MSSA bacteremia with C-spine [...] coordinate their care. Kristopher Barrientos MD, PHD [address], [place], [address], [facility] 11/11/2022 17:49:57 12/09/2022 text/html HPI Notes: Pt of Dr PALMER, here for TOV recommended at 11/11/22 visit OLMAN Chappell - [facility] 12/09/2022 12:43:22
== END 2023-11-06 14:18 | disposition home or self-care (01) ==
LOC: WOUND 14:17
PROVIDERS: Visit Provider Nurse Practitioner Family
DX: E11.621 Type 2 diabetes mellitus with foot ulcer (principal); L97.412 Non-pressure chronic ulcer of right heel and midfoot with fat layer exposed; Z79.4 Long term (current) use of insulin; Z79.84 Long term (current) use of oral hypoglycemic drugs
CPT/HCPCS: 15275; Q4151

== ENCOUNTER 2023-11-13 14:13 | Outpatient (CLI) | payer MEDICARE, BC, SELFPAY ==
--- OUTSIDE RECORDS SUMMARY | 2023-11-13 14:15 | XMS_ITS | Referral Summary ---
Author Name Unknown Organization [facility] Address [address] [place] [address] Care Team Providers Care Supply Requirements Officer Name Role Phone Post, Dave Wakefield Primary Care Provider [phone] Medications Medication Sig Dispensed Refills Start Date End Date Status sulfamethoxazole-trim ethoprim (BACTRIM DS/SEPTRA DS) 800-160 MG tablet Take 1 tablet by mouth 2 times daily 20 tablet 06/26/2018 Active Social History Tobacco Use Types [...] Comments Blood Pressure 148/85 06/26/2018 5:58 PM CHANGE RELEASE MANAGER Pulse 90 06/26/2018 5:58 PM CHANGE RELEASE MANAGER Temperature 36.6 ??C (97.8 ??F) 06/26/2018 5:58 PM CS T Respiratory Rate 18 06/26/2018 5:58 PM CHANGE RELEASE MANAGER Oxygen Saturation 95% 06/26/2018 7:00 PM CHANGE RELEASE MANAGER Inhaled Oxygen Concentration - - Weight 112 kg (247 lb) 06/26/2018 5:58 PM CHANGE RELEASE MANAGER Height 180.3 cm (5' 11) 06/26/2018 5:58 PM CHANGE RELEASE MANAGER Body Mass Index 34.45 06/26/2018 5:58 PM CHANGE RELEASE MANAGER Plan of Treatment Not on file Care Teams Supply Requirements Officer Relationship Specialty Start Date End Date Post, Dave Wakefield PCP - General Internal Medicine 06/26/18
--- OUTSIDE RECORDS SUMMARY | 2023-11-13 14:15 | XMS_ITS | Clinical Summary ---
Author Name Unknown Organization [facility] Address [address] [place] [address] Care Team Providers Care Hr Clerk Name Role Phone Post, Dave Wakefield Primary Care Provider [phone] Medications Medication Sig Dispensed Refills Start Date [...] Comments Blood Pressure 148/85 06/26/2018 5:58 PM PROFESSIONAL DEVELOPMENT DIRECTOR Pulse 90 06/26/2018 5:58 PM PROFESSIONAL DEVELOPMENT DIRECTOR Temperature 36.6 ??C (97.8 ??F) 06/26/2018 5:58 PM CS T Respiratory Rate 18 06/26/2018 5:58 PM PROFESSIONAL DEVELOPMENT DIRECTOR Oxygen Saturation 95% 06/26/2018 7:00 PM PROFESSIONAL DEVELOPMENT DIRECTOR Inhaled Oxygen Concentration - - Weight 112 kg (247 lb) 06/26/2018 5:58 PM PROFESSIONAL DEVELOPMENT DIRECTOR Height 180.3 cm (5' 11) 06/26/2018 5:58 PM PROFESSIONAL DEVELOPMENT DIRECTOR Body Mass Index 34.45 06/26/2018 5:58 PM PROFESSIONAL DEVELOPMENT DIRECTOR Plan of Treatment Not on file Care Teams Hr Clerk Relationship Specialty Start Date End Date Post, Dave Wakefield PCP - General Internal Medicine 06/26/18
--- OUTSIDE RECORDS SUMMARY | 2023-11-13 14:16 | XMS_ITS | Encounter Summary ---
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 Organization [facility] Address [address] [place] [address] Support Name Relationship Address Phone DOROTHY DUONG [...] MEDIC ARE SUPPL EMENT Jul 31, 2018 [id number] [phone] R[place] ALEX PATIENT [place] MED[place] SUPPLEMEN [place] MEDIC ARE SUPPL EMENT Jul 31, 2018 [id number] [phone] [place] A[place] PATIENT [place] [facility] (WNR) MEDICARE ADVANTAGE [facility] (WNR) Jul 31, 2017 [id number] [phone] [place] ALEX PATIENT [place] MED[place] SUPPLE[place] MEDIC ARE SUPPL EMENT Jul 31, 2018 [id number] [phone] [place] ALEX PATIENT [place] SUPP[place] MEDIC ARE SUPPL EMENT Jul 31, 2018 [id number] [phone] [place] ALEX PATIENT MEDICARE (WNR) MEDICARE (M) PART A May 31, 2011 PART A [id number] [phone] KANE PÉREZ PATIENT MEDICARE (WNR) MEDICARE (M) PART B May 31, 2011 PART B [id number] [phone] KANE PÉREZ PATIENT Selected Encounter This section includes the information on record at [place] for the Encounter. Date/Time Encounter Type Encounter Description Reason Provider Source Nov 07, 2023 12:08 PM MTMS BY PHARM ERICK 15 MIN TELEPHONE PRIMARY CARE ICD-10-CM E11.621 Type 2 diabetes mellitus with foot ulcer DARYLKARI Candy Encounter Template Text not used by [place] Assessments - Encounter Diagnoses This section includes the primary and secondary diagnoses documented for the Encounter. Date/Time Primary/Secondary Diagnosis Diagnosis Name Provider Source Nov 07, 2023 12:08 PM PRIMARY Type 2 diabetes mellitus with foot ulcer DARYLKARI [facility] Plan of Treatment: Future Appointments (+ 6 months) and Future Tests (+/- 45 days) The Plan of Treatment section includes future care activities for the patient from all [place] treatmentfacilities. This section includes future appointments and future orders which are active, pending or scheduled. Future Appointments This section includes appointments that were scheduled to occur 6 months from the date of the Encounter, up to a maximum of 20 appointments. The data comes from all [place] treatment facilities. Appointment Date/Time Appointment Type Appointme nt Facility Name Nov 23, 2023 03:30 PM AMBULATORY - NONE [facility] Social History: Smoking Status (Most current) and Tobacco Use (All prior to encounter date) This section includes the most current, and the historical, smoking and tobacco- related health factors from the [place] facility where the Encounter took place. Current Smoking Status This section includes the most current smoking, or tobacco-related health factor, from the [place] facility where the Encounter took place. Date/Time Current Smoking Status Comment Diego peng Aug 18, 2022 08:30 AM [place]-TOBACCO QUIT 15 YRS OR MORE [facility] Tobacco Use History This section includes a history of the smoking, or tobacco-related health factors, that were collected on or before the date of the Encounter. The data comes from the [place] facility where the Encounter took place. Date/Time Smoking Status/Tobacco Use Comment F bo Aug 18, 2022 08:30 AM [place]-TOBACCO QUIT 15 YRS OR MORE [facility] May 03, 2021 08:00 AM VA-TOBACCO FORMER USER [facility] May 03, 2021 08:00 AM VA-TOBACCO QUIT 15 YRS OR MORE [facility] Apr 21, 2020 09:00 AM VA-TOBACCO FORMER USER [facility] Apr 21, 2020 09:00 AM [place]-TOBACCO QUIT 15 YRS OR MORE [facility] Apr 03, 2018 03:16 PM FORMER TOBACCO USE >1Y <7Y [facility] Mar 09, 2007 10:41 AM CURRENT TOBACCO USER [facility] Advance Directives: All historical and current Section Date Range: From patient's date of to the date document was created. This section includes ALL of a patient's completed or amended [place] Advance and Rescinded Directives. The entries below indicate that a directive exists for the patient, but an actual copy is not included with this document. The data comes from all [place] facilities. Date Advance Directives Provider Source Jun 22, 2021 ADVANCE DIRECTIVE DISCUSSION ALLYSON GRAF [facility] Jun 22, 2021 ADVANCE DIRECTIVE ALLYSON GRAF [facility] Mar 09, 2007 ADVANCE DIRECTIVE SOLEDAD WOLFF [facility] Encounter Notes: All associated encounter notes This section contains the clinical notes associated to the Encounter. Date/Time Encounter Note(s) Provider Source Nov 07, 2023 12:08 PM PHARMACY NOTE: LOCAL TITLE: PHARMACOTHERAPY-CLINICAL PHARMACY NOTE STANDARD TITLE: PHARMACY NOTE DATE OF NOTE: NOV 07, 2023@12:08 ENTRY DATE: NOV 07, 2023@12:08:42 AUTHOR: KARI BRITO COSIGNER: URGENCY: STATUS: COMPLETED BACKGROUND: BETOMIGUELINA CHRISTIAN is a 78 YO MALE contacted by phone for medication management, mainly for DM. PMH is significant for T2DM with chronic foot infections, GERD, and HLD. SUBJECTIVE: In brief, sent in a with concerns about higher SMBG readings lately and a weight gain of 10-15 pounds. Feels this may be related in the change in semaglutide dosing to 10 days. He was seen recently by his LMD and it was suggested that he get a CGM--reviewed VA criteria. He continues to have wound issues and has had some skin grafts recently. Lifestyle: Tobacco: Denies EtOH: Denies Food and Drink: Breakfast: egg/stoner/1 piece of toast on occasion a bkfst roll or milk/cereal Lunch: varies--sometimes skips or a sandwich or grapes/cheese, beef stew Evening meal: ash worker -- sandwich or fruit/cheese Snacks: snickers, Allie kisses, more cookies lately Beverages: diet coke, water, coffee Activity: Activity is down due to his foot procedure, he uses a walker. Recently restarted using his exercise bike daily. Would like to use his e-bike, but unfortunately is unable to currently. ROS: (-) hypoglycemia symptoms --> Denies. Usually has symptoms. We have reviewed the rule of 15s. (-) hyperglycemia symptoms SMBG Readings: AM 49 145/ 4/8 203/ 4/7 6 218/ 4/5 196/ 4/4 3 230/ 4/2 10/[address]: 198 *reports getting fatigued with finger stick checks--no other barriers noted ------Previous Readings-------- Aug f/u ave: [address] f/u ave: 157 Dec f/u ave: 139 Home BP Readings: Reports 120s/80s 90s at [...] PROSTATE 5) INSULIN,GLARGINE-YFGN 100UNIT/ML PEN 3ML INJECT 24 confirmed UNITS UNDER THE SKIN EVERY EVENING FOR [...] confirmed THE SKIN EVERY WEEK FOR DIABETES q10 days per VA 11) TAMSULOSIN HCL 0.4MG CAP TAKE ONE [...] >60 Ref: >=60 Collection DT Spec HGBA1C 10/25/2023 7.9 H local 03/22/2023 7.1 H 08/18/2022 07:31 BLOOD 6.8 [...] <210) per VA/DoD guidelines. Recent A1c was up and just slightly below goal. Recently reported SMBG values are up significantly. Reviewed that in general, I would not expect this degree of change with the semaglutide dosing, but reasonable to return to the previous q 7 day regimen. Encouraged increased efforts to track SMBG more closely and moderate carb intake. Reviewed VA criteria currently is being re-evaluated and we may be able to consider a CGM in the near future, but not today. PLAN: Medications: -Continue glargine at 24 units qday -fine to adjust by 2 units every 3 days, targeting fastings in the 100- 150 range. -Change Semaglutide to 1 mg q 7 DAY DOSING -Continue other meds, as above Monitoring: -Increase SMBG BID, varying times--including some post-prandials #Disease-Specific Med Rec: Completed today #Labs: up-to-date - Educated vet on indication/risks/benefits of new/changed medication. - Education provided on therapeutic nonpharmacologic management to achieve goals. - Vet advised of recent labs. - [place] verbalized understanding to all plans discussed today. Questions were answered to vet's satisfaction. Time spent: 15 minutes RTC: - 11/22 pharmTwyla phone prefers to avoid [facility]-only has a cellphone /toby/ KARI BRITO PHARM D, BCPS Clinical Pharmacist Practitioner-[facility] Signed: 11/07/2023 13:33 KARI BRITO [facility]
--- OUTSIDE RECORDS SUMMARY | 2023-11-13 14:16 | XMS_ITS | Continuity of Care Document ---
Author Name [facility] Organization [facility] Care Team Providers Care Parking Enforcement Technician Name Role Phone [facility] Unavailable Unavailable Problems Combined list of problems from Department of Defense and Veterans Affairs facilities. It does not include entries that were removed or entered in error. Problem Status Onset Date Problem Type Date of Resolution Comments Source Exposure to potentially hazardous substance ([facility] 047921979451488) Active 10/05/19 24 Condition Oct 05, 2023 Entered By: VIJI VIVAS [facility]: [facility] Documentation Initiative [facility] Depressive Disorder NOS * (ICD-9-CM 311./300.4) Active Condition [facility] Diabetes mellitus (SNOMED CT 87565020) Active Condition [facility] Diabetic neuropathy Active Condition [facility] Foot Pain (ICD-9-CM 719.47) Active Condition Aug 26 10 Entered By: MALINA WORLEY Comment: left 5th metatarsal fracture [facility] History of amputation of lesser toe Active Condition [facility] Hyperlipidemia (SNOMED CT 57888521) Active Condition [facility] Hyperuricemia Active Condition [facility] ([facility]) Osteopenia Active Condition [place] ([facility] Other Iatrogenic Hypotension Active Condition [place] ([facility]) Personal History of Alcoholism (ICD-9-CM V11.3) Active Condition [facility] Tobacco user (SNOMED CT 201904416) Active Condition [facility] Diagnosis: ICD-10-CM E11.621 Type 2 diabetes mellitus with foot ulcer Active Diagnosis [facility] Diagnosis: ICD-10-CM E11.42 Type 2 diabetes mellitus with diabetic polyneuropathy Active Diagnosis [facility] Diagnosis: ICD-10-CM Z77.29 Contact with and exposure to other hazardous substances Active Diagnosis [facility] Medications Combined list of outpatient medications from Department of Defense and Veterans Affairs facilities.Medications provided include 1) outpatient medications from the last 15 months, and 2) patient-reported medications. Medication Details Route Status Patient Instructions Prescription Expires Prescription Number Last Dispense Date Ordering Provider Order Date Order Qty Source ASCORBIC ACID 500MG TAB TAKE ONE TABLET BY MOUTH TWICE A DAY ORALLY ACTIVE FISHCHARLEE Bowers Robinson 2022 [facility] ASPIRIN 81MG TAB,EC TAKE ONE TABLET BY MOUTH EVERY DAY ORALLY ACTIVE JEFF CHOUDHARY ER A 2006 [facility] ATORVASTATI N [place] 40MG TAB TAKE ONE TABLET BY MOUTH EVERY DAY FOR CHOLESTE ROL ORALLY SUSPEND ED 04/11/2024 [id number] 4 FISH CHARLEE A 2022 90 [facility] ATORVASTATI N CA 40MG TAB TAKE ONE TABLET BY MOUTH EVERY DAY FOR CHOLESTE ROL ORALLY DISCONT INUED 07/15/2023 [id number] NAFELICITYLTOD D 2022 90 [facility] CHOLECALCIF QUINTIN TAB TAKE 5000 UNITS BY MOUTH EVERY DAY ORALLY ACTIVE FISH, CHARLEE Robinson 2022 [facility] COENZYME Q10 CAP/TAB TAKE 1 CAPSULE BY MOUTH EVERY DAY ORALLY ACTIVE ABE CHARLEE Robinson 2022 [facility] CYANOCOBALA MIN 1000MCG TAB TAKE ONE TABLET BY MOUTH EVERY DAY ORALLY ACTIVE NAFELICITYLTOTwyla D 2021 [facility] DICLOFENAC NA 1% GEL,TOP APPLY 4 GRAMS TOPICALL Y FOUR TIMES A DAY NEEDED FOR JOINT PAIN TOPICA LLY ACTIVE 03/22/2024 [id number] 3 ABE CHARLEE A 2022 100 [facility] FINASTERIDE 5MG TAB TAKE ONE TABLET BY MOUTH EVERY DAY FOR PROSTATE ORALLY ACTIVE 04/11/2024 [id number] ABE CHARLEE A 2022 90 [facility] FINASTERIDE 5MG TAB TAKE ONE TABLET BY MOUTH EVERY DAY FOR PROSTATE ORALLY DISCONT INUED 07/13/2023 [id number] 3 ABE CHARLEE A 2021 90 [facility] FISH OIL 1000MG (500MG DHA/EPA) CAP,ORAL TAKE 1 CAPSULE BY MOUTH TWICE A DAY ORALLY ACTIVE JEFF CHOUDHARY A 2006 [facility] INSULIN,GLA RGINE,HUMAN 100 UNIT/ML INJ,SOLOSTA R,3ML INJECT 22 UNITS UNDER THE SKIN AT BEDTIME FOR DIABETES SUBCUT ANEOUS DISCONT INUED (EDIT) 09/30/2023 [id number] 3 NAIDL,TOD D 2022 5 [facility] INSULIN,GLA RGINE,HUMAN 100 UNIT/ML INJ,SOLOSTA R,3ML INJECT 24 UNITS UNDER THE SKIN AT BEDTIME FOR DIABETES SUBCUT ANEOUS DISCONT INUED (EDIT) 07/15/2023 [id number] 3 NAIDL,TOD D 2022 5 [facility] INSULIN,GLA RGINE-YFGN 100UNIT/ML INJ PEN,3ML INJECT 24 UNITS UNDER THE SKIN EVERY EVENING FOR DIABETES SUBCUT ANEOUS ACTIVE 08/29/2024 [id number] 4 NAIDL,TOD D 2023 5 [facility] INSULIN,GLA RGINE-YFGN 100UNIT/ML INJ PEN,3ML INJECT 22 UNITS UNDER THE SKIN AT BEDTIME FOR DIABETES SUBCUT ANEOUS DISCONT INUED (EDIT) 01/07/2024 [id number] 3 NAIDL,TOD D 2022 5 [facility] INSULIN,GLA RGINE-YFGN 100UNIT/ML INJ PEN,3ML INJECT 20 UNITS UNDER THE SKIN AT BEDTIME FOR DIABETES SUBCUT ANEOUS DISCONT INUED (EDIT) 12/08/2023 [id number] 3 NAIDL,TOD D 2022 5 [facility] INSULIN,GLA RGINE-YFGN 100UNIT/ML INJ PEN,3ML INJECT 18 UNITS UNDER THE SKIN AT BEDTIME FOR DIABETES SUBCUT ANEOUS DISCONT INUED (EDIT) 11/08/2023 [id number] 3 NAIDL,TOD D 2022 5 [facility] LIDOCAINE 4% CREAM,TOP APPLY MODERATE AMOUNT TOPICALL Y THREE TIMES A DAY FOR PAIN TOPICA LLY ACTIVE 03/22/2024 [id number] 3 CHARLEE FISH 2022 30 [facility] MAGNESIUM OXIDE 400MG TAB TAKE ONE TABLET BY MOUTH EVERY DAY ORALLY ACTIVE CHARLEE FISH 2022 [facility] MENTHOL/MET HYL SALICYLATE (10-15%) LOW CONC. CREAM,TOP APPLY THIN LAYER TOPICALL Y THREE TIMES A DAY FOR MUSCLE PAIN TOPICA LLY ACTIVE 03/22/2024 [id number] 3 CHARLEE FISH 2022 90 [facility] METFORMIN HCL 1000MG TAB TAKE ONE TABLET BY MOUTH TWICE A DAY FOR DIABETES ORALLY ACTIVE 04/11/2024 [id number] 4 CHARLEE FISH 2022 180 [facility] METFORMIN HCL 1000MG TAB TAKE ONE TABLET BY MOUTH TWICE A DAY FOR DIABETES ORALLY DISCONT INUED 07/15/2023 [id number] 3 NAIDL,TOD D 2022 180 [facility] OMEPRAZOLE 20MG CAP,EC TAKE ONE CAPSULE BY MOUTH EVERY DAY ON AN EMPTY STOMACH, AT LEAST 30 MINUTES PRIOR TO A MEAL FOR GERD ORALLY ACTIVE 03/22/2024 [id number] 3 CHARLEE FISH 2022 90 [facility] SEMAGLUTIDE 0.5MG/0.375 ML INJ,SOLN,PE N,1.5ML INJECT 0.5MG UNDER THE SKIN EVERY WEEK FOR DIABETES SUBCUT ANEOUS DISCONT INUED (EDIT) 07/15/2023 [id number] 3 NAIDL,TOD D 2022 1 [facility] SEMAGLUTIDE 1MG/0.75ML INJ,SOLN,PE N,3ML INJECT 1MG UNDER THE SKIN EVERY WEEK FOR DIABETES SUBCUT ANEOUS ACTIVE 11/07/2024 [id number] 4 NAIDL,TOD D 2023 1 [facility] [place] [facility] SEMAGLUTIDE 1MG/0.75ML INJ,SOLN,PE N,3ML INJECT 1MG UNDER THE SKIN EVERY WEEK FOR DIABETES SUBCUT ANEOUS DISCONT INUED 11/08/2023 [id number] 4 NAIDL,TOD D 2022 1 [facility] TAMSULOSIN HCL 0.4MG CAP TAKE ONE CAPSULE BY MOUTH EVERY EVENING ORALLY SUSPEND ED 04/13/2024 [id number] 4 CHARLEE FISH A 2022 30 [facility] TAMSULOSIN HCL 0.4MG CAP TAKE ONE CAPSULE BY MOUTH EVERY EVENING ORALLY DISCONT INUED 04/11/2024 [id number] 3 CHARLEE FISH A 2022 90 [facility] TAMSULOSIN HCL 0.4MG CAP TAKE ONE CAPSULE BY MOUTH EVERY EVENING ORALLY DISCONT INUED 08/04/2023 [id number] 3 CHARLEE FISH A 2022 90 [facility] TURMERIC CAP/TAB TAKE 500 MG BY MOUTH TWICE A DAY ORALLY ACTIVE MATTY POWERS 2018 [facility] Allergies, Adverse Reactions, Alerts Combined list of [...] Site Reaction Lot Number CVX Code Drug [employer] Salesperson Status Comments Source ZOSTER RECOMBINANT 2 2019 187 complet ed [facility] INFLUENZA, INJECTABLE, QUADRIVALENT, PRESERVATIVE FREE 2019 150 complet ed [facility] ZOSTER RECOMBINANT 1 2019 187 complet ed [facility] INFLUENZA, HIGH-DOSE, QUADRIVALENT 2019 197 complet ed [facility] INFLUENZA, SEASONAL, INJECTABLE, PRESERVATIVE FREE 2017 140 complet ed [facility] INFLUENZA, INJECTABLE, QUADRIVALENT, PRESERVATIVE FREE 2017 150 complet ed [facility] INFLUENZA, INJECTABLE, QUADRIVALENT, PRESERVATIVE FREE 2015 150 complet ed [facility] TDAP 2015 115 complet ed [place] [facility] PNEUMOCOCCAL CONJUGATE PCV 13 2015 133 complet ed [facility] TD (ADULT), 5 LF TETANUS TOXOID, PRESERVATIVE FREE, ADSORBED 2015 113 complet ed [facility] INFLUENZA, INJECTABLE, QUADRIVALENT, PRESERVATIVE FREE 2013 150 complet ed [facility] PNEUMOCOCCAL POLYSACCHARID E PPV23 2010 33 complet ed [facility] INFLUENZA, UNSPECIFIED FORMULATION 2006 88 complet [facility] PNEUMOCOCCAL, UNSPECIFIED FORMULATION 2006 109 complet ed [facility] TD(ADULT) UNSPECIFIED FORMULATION 2006 NONE 139 complet [facility] TETANUS TOXOID, UNSPECIFIED FORMULATION 2006 NONE 112 complet [facility] Results Combined list of recent chemistry, [...] Aug 21, 2022 03:48 PM Reporting Lab: [facility] [address] Performing Lab: [facility] [address] [facility] BASIC METABOLIC PANEL+MG CREATININE [MASS/VOLUM E] IN SERUM OR PLASMA 1.2 0.7 - 1.2 03/22 Specimen Type: PLASMA No comment entered. Ordering Provider: ME LEEROY FISH Report Released Date/Time: Aug 21, 2022 03:48 PM Reporting Lab: [facility] [address] Performing Lab: [facility] [address] [place] [facility] BASIC METABOLIC PANEL+MG UREA NITROGEN [MASS/VOLUM E] IN SERUM OR PLASMA 15 8 - 26 03/22 Specimen Type: PLASMA No comment entered. Ordering Provider: ME LEEROY FISH Report Released Date/Time: Aug 21, 2022 03:48 PM Reporting Lab: [facility] [address] Performing Lab: [facility] [address] [place] [facility] BASIC METABOLIC PANEL+MG GLUCOSE [MASS/VOLUM E] IN SERUM OR PLASMA 145 70 - 100 03/22 H Specimen Type: PLASMA No comment entered. Ordering Provider: ME LEEROY FISH Report Released Date/Time: Aug 21, 2022 03:48 PM Reporting Lab: [facility] [address] Performing Lab: [facility] [address] [place] [facility] BASIC METABOLIC PANEL+MG SODIUM [MOLES/VOLU ME] IN SERUM OR PLASMA 138 136 - 145 03/22 Specimen Type: PLASMA No comment entered. Ordering Provider: ME LEEROY FISH Report Released Date/Time: Aug 21, 2022 03:48 PM Reporting Lab: [facility] [address] Performing Lab: [facility] [address] [place] [facility] BASIC METABOLIC PANEL+MG POTASSIUM [MOLES/VOLU ME] IN SERUM OR PLASMA 4.5 3.5 - 5.1 03/22 Specimen Type: PLASMA No comment entered. Ordering Provider: ME LEEROY FISH Report Released Date/Time: Aug 21, 2022 03:48 PM Reporting Lab: [facility] [address] Performing Lab: [facility] [address] [place] [facility] BASIC METABOLIC PANEL+MG CHLORIDE [MOLES/VOLU ME] IN SERUM OR PLASMA 101 98 - 107 03/22 Specimen Type: PLASMA No comment entered. Ordering Provider: ME LEEROY FISH Report Released Date/Time: Aug 21, 2022 03:48 PM Reporting Lab: [facility] [address] Performing Lab: [facility] [address] [place] [facility] BASIC METABOLIC PANEL+MG CARBON DIOXIDE, TOTAL [MOLES/VOLU ME] IN SERUM OR PLASMA - 03/22 Specimen Type: PLASMA No comment entered. Ordering Provider: ME LEEROY FISH Report Released Date/Time: Aug 21, 2022 03:48 PM Reporting Lab: [facility] [address] Performing Lab: [facility] [address] [place] [facility] BASIC METABOLIC PANEL+MG CALCIUM [MASS/VOLUM E] IN SERUM OR PLASMA 10.0 8.4 - 10.2 03/22 Specimen Type: PLASMA No comment entered. Ordering Provider: ME LEEROY FISH Report Released Date/Time: Aug 21, 2022 03:48 PM Reporting Lab: [facility] [address] Performing Lab: [facility] [address] [place] [facility] BASIC METABOLIC PANEL+MG MAGNESIUM [MASS/VOLUM E] IN SERUM OR PLASMA 1.9 1.6 - 2.6 03/22 Specimen Type: PLASMA No comment entered. Ordering Provider: ME LEEROY FISH Report Released Date/Time: Aug 21, 2022 03:48 PM Reporting Lab: [facility] [address] Performing Lab: [facility] [address] [place] [facility] BASIC METABOLIC PANEL+MG ANION GAP IN SERUM OR PLASMA 10 5 - 15 03/22 Specimen Type: PLASMA No comment entered. Ordering Provider: ME LEEROY FISH Report Released Date/Time: Aug 21, 2022 03:48 PM Reporting Lab: [facility] [address] Performing Lab: [facility] [address] [place] [facility] BASIC METABOLIC PANEL+MG GLOMERULAR FILTRATION RATE/1.73 SQ M.PREDICTED [VOLUME RATE/AREA] IN SERUM, PLASMA OR BLOOD BY CREATININE- BASED FORMULA (CKD-EPI 2020) 63 60 03/22 Specimen Type: PLASMA No comment entered. Ordering Provider: ME LEEROY FISH Report Released Date/Time: Aug 21, 2022 03:48 PM Reporting Lab: [facility] [address] Performing Lab: [place] [phone] [place] [facility] HEMOGLOBI N A1C HEMOGLOBIN A1C/HEMOGLO BIN.TOTAL [...] December 22, 2021 03:46 PM Reporting Lab: [facility] [address] Performing Lab: [facility] [address] [place] [facility] BASIC METABOLIC PANEL+MG CREATININE [MASS/VOLUM E] IN SERUM OR PLASMA 0.9 0.7 - 1.2 08/18 Specimen Type: PLASMA No comment entered. Ordering Provider: ME LEEROY FISH Report Released Date/Time: December 22, 2021 03:46 PM Reporting Lab: [facility] [address] Performing Lab: [facility] [address] [place] [facility] BASIC METABOLIC PANEL+MG UREA NITROGEN [MASS/VOLUM E] IN SERUM OR PLASMA 12 8 - 26 08/18 Specimen Type: PLASMA No comment entered. Ordering Provider: ME LEEROY FISH Report Released Date/Time: December 22, 2021 03:46 PM Reporting Lab: [facility] [address] Performing Lab: [facility] [address] [place] [facility] BASIC METABOLIC PANEL+MG GLUCOSE [MASS/VOLUM E] IN SERUM OR PLASMA 184 70 - 100 08/18 H Specimen Type: PLASMA No comment entered. Ordering Provider: ME LEEROY FISH Report Released Date/Time: December 22, 2021 03:46 PM Reporting Lab: [facility] [address] Performing Lab: [facility] [address] [place] [facility] BASIC METABOLIC PANEL+MG SODIUM [MOLES/VOLU ME] IN SERUM OR PLASMA 137 136 - 145 08/18 Specimen Type: PLASMA No comment entered. Ordering Provider: ME LEEROY FISH Report Released Date/Time: December 22, 2021 03:46 PM Reporting Lab: [facility] [address] Performing Lab: [facility] [address] [place] [facility] BASIC METABOLIC PANEL+MG POTASSIUM [MOLES/VOLU ME] IN SERUM OR PLASMA 3.9 3.5 - 5.1 08/18 Specimen Type: PLASMA No comment entered. Ordering Provider: ME LEEROY FISH Report Released Date/Time: December 22, 2021 03:46 PM Reporting Lab: [facility] [address] Performing Lab: [facility] [address] [place] [facility] BASIC METABOLIC PANEL+MG CHLORIDE [MOLES/VOLU ME] IN SERUM OR PLASMA 102 98 - 107 08/18 Specimen Type: PLASMA No comment entered. Ordering Provider: ME LEEROY FISH Report Released Date/Time: December 22, 2021 03:46 PM Reporting Lab: [facility] [address] Performing Lab: [facility] [address] [place] [facility] BASIC METABOLIC PANEL+MG CARBON DIOXIDE, TOTAL [MOLES/VOLU ME] IN SERUM OR PLASMA 26 22 - 29 08/18 Specimen Type: PLASMA No comment entered. Ordering Provider: ME LEEROY FISH Report Released Date/Time: December 22, 2021 03:46 PM Reporting Lab: [facility] [address] Performing Lab: [facility] [address] [place] [facility] BASIC METABOLIC PANEL+MG CALCIUM [MASS/VOLUM E] IN SERUM OR PLASMA 9.4 8.4 - 10.2 08/18 Specimen Type: PLASMA No comment entered. Ordering Provider: ME LEEROY FISH Report Released Date/Time: December 22, 2021 03:46 PM Reporting Lab: [facility] [address] Performing Lab: [facility] [address] [place] [facility] BASIC METABOLIC PANEL+MG MAGNESIUM [MASS/VOLUM E] IN SERUM OR PLASMA 1.6 1.6 - 2.6 08/18 Specimen Type: PLASMA No comment entered. Ordering Provider: ME LEEROY FISH Report Released Date/Time: December 22, 2021 03:46 PM Reporting Lab: [facility] [address] Performing Lab: [facility] [address] [place] [facility] BASIC METABOLIC PANEL+MG ANION GAP IN SERUM OR PLASMA 9 5 - 15 08/18 Specimen Type: PLASMA No comment entered. Ordering Provider: ME LEEROY FISH Report Released Date/Time: December 22, 2021 03:46 PM Reporting Lab: [facility] [address] Performing Lab: [facility] [address] [place] [facility] BASIC METABOLIC PANEL+MG GLOMERULAR FILTRATION RATE/1.73 SQ M.PREDICTED [VOLUME RATE/AREA] IN SERUM, PLASMA OR BLOOD BY CREATININE- BASED FORMULA (CKD-EPI) 89 60 08/18 Specimen Type: PLASMA No comment entered. Ordering Provider: ME LEEROY FISH Report Released Date/Time: December 22, 2021 03:46 PM Reporting Lab: [facility] [address] Performing Lab: [facility] [address] [place] [facility] HEMOGLOBI N A1C HEMOGLOBIN A1C/HEMOGLO BIN.TOTAL IN BLOOD 8.2 4.0 - 6.0 12/22 H Specimen Type: BLOOD No comment entered. Ordering Provider: ME LEEROY FISH Report Released Date/Time: Aug 03, 2021 01:53 PM Reporting Lab: [facility] [address] Performing Lab: [facility] [address] [place] [facility] BASIC METABOLIC PANEL+MG CREATININE [MASS/VOLUM E] IN SERUM OR PLASMA 1.1 0.7 - 1.2 12/22 Specimen Type: PLASMA No comment entered. Ordering Provider: ME LEEROY FISH Report Released Date/Time: Aug 03, 2021 01:53 PM Reporting Lab: [facility] [address] Performing Lab: [facility] [address] [place] [facility] BASIC METABOLIC PANEL+MG UREA NITROGEN [MASS/VOLUM E] IN SERUM OR PLASMA 15 8 - 26 12/22 Specimen Type: PLASMA No comment entered. Ordering Provider: ME LEEROY FISH Report Released Date/Time: Aug 03, 2021 01:53 PM Reporting Lab: [facility] [address] Performing Lab: [facility] [address] [place] [facility] BASIC METABOLIC PANEL+MG GLUCOSE [MASS/VOLUM E] IN SERUM OR PLASMA 174 74 - 100 12/22 H Specimen Type: PLASMA No comment entered. Ordering Provider: ME LEEROY FISH Report Released Date/Time: Aug 03, 2021 01:53 PM Reporting Lab: [facility] [address] Performing Lab: [facility] [address] [place] [facility] BASIC METABOLIC PANEL+MG SODIUM [MOLES/VOLU ME] IN SERUM OR PLASMA 141 136 - 145 12/22 Specimen Type: PLASMA No comment entered. Ordering Provider: ME LEEROY FISH Report Released Date/Time: Aug 03, 2021 01:53 PM Reporting Lab: [facility] [address] Performing Lab: [facility] [address] [place] [facility] BASIC METABOLIC PANEL+MG POTASSIUM [MOLES/VOLU ME] IN SERUM OR PLASMA 4.2 3.5 - 5.1 12/22 Specimen Type: PLASMA No comment entered. Ordering Provider: ME LEEROY FISH Report Released Date/Time: Aug 03, 2021 01:53 PM Reporting Lab: [facility] [address] Performing Lab: [facility] [address] [place] [facility] BASIC METABOLIC PANEL+MG CHLORIDE [MOLES/VOLU ME] IN SERUM OR PLASMA 101 98 - 107 12/22 Specimen Type: PLASMA No comment entered. Ordering Provider: ME LEEROY FISH Report Released Date/Time: Aug 03, 2021 01:53 PM Reporting Lab: [facility] [address] Performing Lab: [facility] [address] [place] [facility] BASIC METABOLIC PANEL+MG CARBON DIOXIDE, TOTAL [MOLES/VOLU ME] IN SERUM OR PLASMA 30 22 - 29 12/22 H Specimen Type: PLASMA No comment entered. Ordering Provider: ME LEEROY FISH Report Released Date/Time: Aug 03, 2021 01:53 PM Reporting Lab: [facility] [address] Performing Lab: [facility] [address] [place] [facility] BASIC METABOLIC PANEL+MG CALCIUM [MASS/VOLUM E] IN SERUM OR PLASMA 10.1 8.4 - 10.2 12/22 Specimen Type: PLASMA No comment entered. Ordering Provider: ME LEEROY FISH Report Released Date/Time: Aug 03, 2021 01:53 PM Reporting Lab: [facility] [address] Performing Lab: [facility] [address] [place] [facility] BASIC METABOLIC PANEL+MG MAGNESIUM [MASS/VOLUM E] IN SERUM OR PLASMA 1.8 1.6 - 2.6 12/22 Specimen Type: PLASMA No comment entered. Ordering Provider: ME LEEROY FISH Report Released Date/Time: Aug 03, 2021 01:53 PM Reporting Lab: [facility] [address] Performing Lab: [facility] [address] [place] [facility] BASIC METABOLIC PANEL+MG ANION GAP IN SERUM OR PLASMA 10 5 - 15 12/22 Specimen Type: PLASMA No comment entered. Ordering Provider: ME LEEROY FISH Report Released Date/Time: Aug 03, 2021 01:53 PM Reporting Lab: [facility] [address] Performing Lab: [facility] [address] [place] [facility] BASIC METABOLIC PANEL+MG CREAT EGFR(CKD-EP I) 70 60 12/22 Specimen Type: PLASMA No comment entered. Ordering Provider: ME LEEROY FISH Report Released Date/Time: Aug 03, 2021 01:53 PM Reporting Lab: [facility] [address] Performing Lab: [facility] [address] [facility] Vital Signs Combined list of inpatient and outpatient Vital Signs from Department of Defense and Veterans Affairs, ranging from 12 months to all on record, depending upon the facility. Vital Sign Value Date Comments Source SYSTOLIC BLOOD PRESSURE 108 03/22/2023 14:13:04 [facility] DIASTOLIC BLOOD PRESSURE 77 03/22/2023 14:13:04 [facility] PULSE OXIMETRY 95% 03/22/2023 14:13:[address] [facility] 221 03/22/2023 14:13:04 [facility] BMI 31kg/m2 03/22/2023 14:13:04 [facility] PAIN 0 03/22/2023 14:13:04 [facility] HEIGHT 71 03/22/2023 14:13:04 [facility] TEMPERATURE 97.5 03/22/2023 14:13:04 [facility] PULSE 110 03/22/2023 14:13:04 [facility] RESPIRATION 18 03/22/2023 14:13:04 [facility] Encounters Combined list of: 1) 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 2) Encounters from the Department of Community Hospital facilities going back up to 280 months. Location Location Details Encounter Type Encounter Number Reason For Visit Attending Provider ADM Date DC Date Status Disposition Source [place] [facility] Outpatient Encounter [id number] 05/19 [facility] [place] [facility] Outpatient Encounter [id number] 05/23 [facility] [place] [facility] Outpatient Encounter [id number] 05/25 [facility] [place] [facility] Outpatient Encounter [id number] 05/27 [place] [facility] [place] [facility] Outpatient [facility]counter [id number] 05/30 [place] [facility] [place] [facility] Outpatient [facility]counter [id number] 06/06 [place] [facility] [place] [facility] Outpatient [facility]counter [id number] 06/14 [place] [facility] [place] [facility] Out[facility]counter [id number] 06/16 [place] [facility] [place] [facility] Outpatient [facility]counter [id number] SA RA Ana RODRIGUEZ 06/18 [place] [facility] [place] [facility] Out[facility]counter [id number] Kimberly GRIFFIN 07/12 [place] [facility] [place] [facility] HC PRO PHONE CALL 11-20 MIN [id number] Diagnos is: ICD-10- CM E11.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
KARI BRITO 07/14 [place] [facility] [place] [facility] Outpatient Encounter [id number] SATINDER SMITH 07/21 [facility] [place] [facility] OFFICE O/P EST MOD 30-39 MIN [id number] Diagnos is: ICD-10- CM E11.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
Rhiannon FISH 08/18 [facility] [place] [facility] Outpatient Encounter [id number] 08/21 [place] [facility] [place] [facility] PRO PHONE CALL 11-20 MIN [id number] Diagnos is: ICD-10- CM E11.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
NAIDL,KARI 08/29 [place] [facility] [facility] PRO PHONE CALL 11-20 MIN [id number] Diagnos is: ICD-10- CM E11.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
NAIDL,KARI 09/29 [place] [facility] PRO PHONE CALL 21-30 MIN [id number] Diagnos is: ICD-10- CM E11.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
NAIDL,KARI 11/07 [place] [facility] [facility] HC PRO PHONE CALL 11-20 MIN [id number] Diagnos is: ICD-10- CM E11.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
NAIDL,KARI 12/07 [place] [facility] [id number] Diagnos is: ICD-10- CM Z77.29 Contact with and exposur e to other hazardo us substan monica<br/ > JEANINE,MATH ILDE J 12/27 [facility] Outpatient Encounter [id number] Diagnos is: ICD-10- CM Z77.29 Contact with and exposur e to other hazardo us substan monica<br/ > JEANINE,MATH ILDE J 12/[address] [facility] HC PRO PHONE CALL 11-20 MIN [id number] Diagnos is: ICD-10- CM E11.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
NAIDL,KARI 01/06 [place] [facility] Outpatient Encounter [id number] 03/10 [place] [facility] HC PRO PHONE CALL 11-20 MIN [id number] Diagnos is: ICD-10- CM E11.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
NAIDL,KARI 03/14 [place] [facility] [place] [facility] OFF[facility] O/P EST LOW 20-29 MIN [id number] Diagnos is: ICD-10- CM E11.621 Type 2 diabete s mellitu s with foot ulcer<b r/> Rhiannon FISHMICAELA A 03/22 [place] [facility] [place] [facility] PRO PHONE CALL 21-30 MIN [id number] Diagnos is: ICD-10- CM E11.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
NAIDL,KARI 04/18 [place] [facility] [place] [facility] PRO PHONE CALL 21-30 MIN [id number] Diagnos is: ICD-10- CM E11.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
NAIDL,KARI 07/11 [place] [facility] [place] [facility] MTMS BY PHARM ADDL 15 MIN [id number] Diagnos is: ICD-10- CM E11.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
NAIDL,KARI 08/29 [place] [facility] [place] [facility] MTMS BY PHARM EST 15 MIN [id number] Diagnos is: ICD-10- CM E11.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 Social History Type Response Date Comment Sourc e Tobacco smoking status NHIS ND-TOBACCO FORMER USER 08/18/2022 [place] [facility] of [facility] History of tobacco use ND-TOBACCO FORMER USER 05/03/2021 [facility] History of tobacco use ND-TOBACCO FORMER USER 04/21/2020 [facility] History of tobacco use FORMER TOBACCO US E >1Y <7Y 04/03/2018 [facility] History of tobacco use CURRENT TOBACCO USER 03/09/2007 [facility] Plan of Care List of future care activities from [facility] facilities. Additional future care activities may be listed in the Assessment and Plan section. Date/Time Care Activity Care Activity Detail Facili ty 11/23/2023 AMBULATORY - NONE AMBULATORY - NONE [facility] Advance Directives List of completed, amended, or rescinded Advance Directives on record at Department [facility] facilities. An actual copy of the Directive is not included. Date Advance Directive Provider Source 06/22/2021 ADVANCE DIRECTIVE DISCUSSION ALLYSON GRAF [facility] 06/22/2021 ADVANCE DIRECTIVE ALLYSON GRAF [facility] 03/09/2007 ADVANCE DIRECTIVE SOLEDAD WOLFF [facility]
--- OUTSIDE RECORDS SUMMARY | 2023-11-13 14:16 | XMS_ITS | Clinical Summary ---
Author Name Unknown Organization [facility] Typeform [facility] Address [place], [place] [address] Care Team Providers Care Prenatal Nurse Name Role Phone Post, Dave Velazquez MD Primary Care Provider Moshe Enciso MD Unavailable Arie Justin MD Unavailable [phone] [facility], [facility] Unavailable [phone] Murali Hoover DPM Unavailable [phone] Allergies No known active allergies Medications [...] to Care Guide Pamella Brennan Phone number [phone]. Alcohol abuse 06/02/2010 03/26/2019 Overview: Sober since 2001. Great success with AA. 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 10/06/2023 Pyogenic arthritis of left shoulder region 06/17/2022 Encounters Date Type Department Care Team Description 11/03/2023 11:00 AM CDT Office Visit [facility] [place] [address] [place] [address] Post, Dave Velazquez MD Form (diabetic shoes) 11/03/2023 Travel 10/25/2023 1:00 PM CDT Orders Only [facility] [address] [place] [address] Lab, [facility] 10/25/2023 Travel 10/06/2023 1:30 PM PILLING MACHINE OPERATOR Phone Office Visit [facility] [place] [address] [place] [address] Post, Dave Velazquez MD 10/03/2023 Travel 09/05/2023 Orders Only [facility] Scanner 1 scan: (1-Ord) [facility], MRI RT FOOT HINDFOOT THROUGH MIDFOOT WITHOUT WITH CONTRAST, 09/05/2023 09/04/2023 10:30 AM PILLING MACHINE OPERATOR Ancillary Procedure [facility] [address] [place] [address] 09/04/2023 Travel from Last 3 Months Immunizations [...] 36.7 ??C (98 ??F) 06/29/2022 8:43 AM PILLING MACHINE OPERATOR Respiratory Rate 18 06/29/2022 8:43 AM PILLING MACHINE OPERATOR Oxygen Saturation 96% 07/21/2023 1:34 PM PILLING MACHINE OPERATOR Inhaled Oxygen Concentration - - Weight 107 kg (236 lb) 11/03/2023 11:13 AM CDT w ith shoes Height 180.3 cm (5' 10.98) 07/21/2023 1:[address] Body Mass Index 32.93 07/21/2023 1:34 PM PILLING MACHINE OPERATOR Plan of Treatment Health Maintenance Due [...] 07/16/2020, 04/21/2020 Medical Devices Implanted Type Area Companion Device Identifier Shelf Expiration Date Model / Serial / Lot [id number] - [id number] Implanted:Qty: 1 on 09/20/2021 at [facility] Right: Foot [employer] AR-8725-4 4H / / Description:COMPRESSION FT S CREWS CANNULATED, 2.5 MICRO 44MM LOAD [id number] [facility]-1530p - [id number] Implanted:Qty: 1 on 09/20/2021 at [facility] Right: Foot [employer] 03/30/2025 AR-1530P- CP / / [id number] Description:FOREFOOT INTERNA L BRACE IMPLANT SYSTEM, PEEK Screw 4.27h64vv Bio Compositetenodesis Disp Child Welfare Specialist Pk - [id number] Implanted:Qty: 1 on 09/20/2021 at [facility] Right: Foot [employer] 08/30/2022 AR-1547CD S / / [id number] Ancr Sut 1.3mm Dx Fibertak Suturetape 2 Ndl 26.2mm 08/01 [facility] - [id number] Implanted:Qty: 1 on 09/20/2021 at [facility] Right: Foot [employer] 06/29/2026 AR-8990ST / / [id number] Explanted Type Area Companion Device Identifier Shelf Expiration Date Model / Serial / Lot Wire Kirs .[id number] Smooth6/Pk 10000 Depuy/Héctor - [id number] Explanted:Qty: 1 on 09/20/2021 at [facility] Right: Foot [employer] / / Description:LOAD 4 8 [id number] [facility]8737-40 - [id number] Explanted:Qty: 1 on 09/20/2021 at [facility] Right: Foot [employer] AR-8737-40 / / Description:2.5 MICRO COMPRE SSION FT DRILLS AND DISPOSABLES, GUIDEWIRE W TROCAR TIP, THREADED, 0.34 IN (.86MM) LOAD 4 7 [id number] Procedures Procedure Name Priority Date/Time Associated Diagnosis [...] diabetes mellitus with diabetic neuropathy, unspecified whether chcf insulin use (HC) SCAN-MRI INTERPRETATION 09/05/2023 12:00 AM PILLING MACHINE OPERATOR ECHO TTE COMPLETE WO CONTRAST Routine 09/04/2023 11:00 AM PILLING MACHINE OPERATOR SOB (shortness of breath) Fatigue, unspecified type Irregular heart beat CT CHEST PE STUDY Routine 05/10/2022 7:5 0 PM CDT OCCULT BLOOD IFOBT STOOL Routine 07/03/2013 7:00 PM PILLING MACHINE OPERATOR Screening for colon cancer from Last 3 Months or Most Recently Relevant to Health Maintenance Results * (ABNORMAL) CBC WITH AUTO DIFFERENTIAL (10/25/2023 12:59 PM CDT) WHITE BLOOD COUNT 8.1 4.5 - 11.0 thou/cu mm 10/25/2023 1:36 PM CDT [facility] RED BLOOD COUNT 4.53 4.30 - 5.90 mil/cu mm 10/25/2023 1:36 PM CDT [facility] HEMOGLOBIN 12.4(L) 13.5 - 17.5 g/dL 10/25/2023 1:36 PM CDT [facility] HEMATOCRIT 38.9 37.0 - 53.0 % 10/25/2023 1:36 PM CDT [facility] MCV 86 80 - 100 fL 10/25/2023 1:36 PM CDT [facility] MCH 27.4 26.0 - 34.0 pg 10/25/2023 1:36 PM CDT [facility] MCHC 31.9(L) 32.0 - 36.0 g/dL 10/25/2023 1:36 PM CDT [facility] RDW 16.5(H) 11.5 - 15.5 % 10/25/2023 1:36 PM CDT [facility] [place] PLATELET COUNT 175 140 - 440 thou/cu mm 10/25/2023 1:36 PM CDT [facility] [place] [place] MPV 10.3 6.5 - 11.0 fL 10/25/2023 1:36 PM CDT [facility] [place] % NEUT 66.6 % 10/25/2023 1:36 PM CDT [facility] % LYMPH 21.6 % 10/25/2023 1:36 PM CDT [facility] % MONO 7.3 % 10/25/2023 1:36 PM CDT [facility] [place] % EOS 4.3 % 10/25/2023 1:36 PM CDT [facility] % BASO 0.2 % 10/25/2023 1:36 PM CDT [facility] ABSOLUTE NEUTROPHILS 5.4 1.7 - 7.0 thou/cu mm 10/25/2023 1:36 PM CDT [facility] ABSOLUTE LYMPHOCYTES 1.7 0.9 - 2.9 thou/cu mm 10/25/2023 1:36 PM CDT [facility] ABSOLUTE MONOCYTES 0.6 <0.9 thou/cu mm 10/25/2023 1:36 PM CDT [facility] ABSOLUTE EOSINOPHILS 0.4 <0.5 thou/cu mm 10/25/2023 1:36 PM CDT [facility] ABSOLUTE BASOPHILS 0.0 <0.3 thou/cu mm 10/25/2023 1:36 PM CDT [facility] Blood BLOOD SPECIMEN / Unknown Venipuncture / Unknown 10/25/2023 12:59 PM CDT 10/25/2023 12:59 PM CDT Narrative [facility] - 10/25/2023 1:36 PM CDT This procedure was originally ordered at [facility]. This procedure was originally ordered at [facility]. Dave Garrett MD HEMATOLOGY [facility] [place] [place] [address] [place] [address], * TSH WITH REFLEX (10/25/2023 12:59 PM CDT) TSH 1.43 0.27 - 4.20 uIU/mL 10/25/2023 10:26 PM CDT [facility] Blood BLOOD SPECIMEN / Unknown Venipuncture / Unknown 10/25/2023 12:59 PM CDT 10/25/2023 12:59 PM CDT [facility] - 10/25/2023 10:26 PM CDT In Adults, TSH values between 5.00 and 10.00 uIU/ml do not necessarily indicate the presence of Hypothyroidism. Correlation with clinical findings such as presence of goiter and/or Thyroperoxidase (TPO) Antibody may be helpful. For more information please refer to LOWELL 2004; 291: 228-238. Dave Garrett MD CHEMISTRY [facility] [address] [place] [address], * (ABNORMAL) Creatinine (10/25/2023 12:59 PM CDT) eGFR 71(L) >90 mL/min/1.7 3m2 10/25/2023 10:[address] [facility] Comment:As of 2021, eG FR is calculated by the CKD-EPI creatinine equation without race adjustment. ??eGFR can be influenced by muscle mass, exercise, and diet. ??The reported eGFR is an estimation only and is only applicable if the renal function is stable. CREATININE 1.08 0.70 - 1.20 mg/dL 10/25/2023 10:[address] [facility] Blood BLOOD SPECIMEN / Unknown Venipuncture / Unknown 10/25/2023 12:59 PM CDT 10/25/2023 12:59 PM CDT Dave Garrett MD CHEMISTRY Performing Organization Address City/[facility]/ZIP Co de Phone Number [facility] [address] [place] [address], * (ABNORMAL) Hemoglobin A1c (monitoring) (10/25/2023 12:59 PM CDT) HEMOGLOBIN A1C MONITORING (POCT) 7.9(H) <=6.4 % 10/25/2023 3:27 PM CDT [facility] Blood BLOOD SPECIMEN / Unknown Venipuncture / Unknown 10/25/2023 12:59 PM CDT 10/25/2023 12:59 PM CDT Narrative [facility] - 10/25/2023 3:27 PM [...] Dave Garrett MD CHEMISTRY Performing Organization Address City/[facility]/ZIP Co de Phone Number [facility] [address] [place] [address], * SCAN-MRI INTERPRETATION (09/05/2023 12:00 AM PILLING MACHINE OPERATOR) Anatomical Region Laterality Modality Other Scanner OTHER * ECHO TTE COMPLETE WO CONTRAST (09/04/2023 11:00 AM PILLING MACHINE OPERATOR) EJECTION FRACTION 50-55% PROSOLV Anatomical Region Laterality Modality Ultrasound 09/04/2023 10:2 8 AM PILLING MACHINE OPERATOR Narrative 09/04/2023 2:53 PM PILLING MACHINE OPERATOR [address], [place] [address] Main: ? Transthoracic Echo Report MIGUELINA PÉREZ ID: [id number] Age: 78 : 1945 Ordering Provider: JOSE RICHARDSON Exam Date: 09/04/2023 10:28 Gender: M Financial Compliance Officer: NAHOMY Height: 70.1 in BSA: 2.22 m?? BP: 126 / 60 Weight: 231 lbs BMI: 33.1 kg/m?? HR: 77 Location: [facility] Rhythm: Normal Sinus Rhythm, With PVC [...] ZScore: 0.95 Jacinta Page MD (Electronically Signed) [facility] Accredited Site Final Date: 04 September 2023 14:52 ICD-10 Codes: R06.02; I49.9; R53.83 Procedure Note Jacinta Page MD - 09/04/[address], [place] [address] Main: Transthoracic Echo Report MIGUELINA PÉREZ ID: [id number] Age: 78 : 1945 Ordering Provider:JOSE RICHARDSON Exam Date: 09/04/2023 10:28 Gender: M Financial Compliance Officer: NAHOMY Height: 70.1 in BSA: 2.22 m?? BP: 126 / 60 Weight: 231 lbs BMI: 33.1 kg/m?? HR: 77 Location: [facility] Rhythm: Normal Sinus Rhythm, WithPVC Procedure [...] echo contrast agent was not available at [facility] site. MEASUREMENTS (Male / Female) [...] ZScore: 0.95 Jacinta Tuohy MD (Electronically Signed) [facility] Accredited Site Final Date: 04 [...] Occult Blood Stool (IFOBT) (07/03/2013 7:00 PM PILLING MACHINE OPERATOR) STOOL BLOOD ,IFOBT Negative Negative, Invalid 07/04/2013 3:03 PM PILLING MACHINE OPERATOR [facility] Stool specimen (specimen) STOOL SPECIMEN / Unknown Non-Blood / Unknown 07/03/2013 7:00 PM PILLING MACHINE OPERATOR 07/04/2013 2:39 PM PILLING MACHINE OPERATOR Dave Garrett MD LABORATORY [facility] [address] [place] [address] from Last 3 Months or Most Recently Relevant to Health Maintenance Advance Directives Documents on File Type Date Recorded Patient Guillotine Trimmer Expl anation Healthcare Directive 05/21/2021 3:50 PM [...] Code Status Discussion: Reviewed Preferences Care Teams Prenatal Nurse Relationship Specialty Start Date End Date Post, Dave Velazquez MD PCP - General 06/02/10 Moshe Enciso MD [address] [place], [place] [address] Endocrinology Endocrinology 01/04/18 [place] [address] [place], [place] [address] Surgery - Ophthalmology 03/22/18 [facility] [address] [place], [place] [address] 06/08/21 Murali Hoover DPM [address] [place] [address] Surgery - Podiatric 01/03/23
--- OUTSIDE RECORDS SUMMARY | 2023-11-13 14:18 | XMS_ITS | Data Portability ---
Author Name Unknown Address [address] [place] [address] Phone [phone] [facility] Address [address] [place] [address] Care Team Providers Care Aircraft Structural Repairer Name Role Phone POST, SUE Primary Care [...] to efficacy (6+ months) and side effects [email or web address] Not available 06/16/2022 18:10:42 06/30/2022 06/30/2022 77M [...] of Hospitaliza tion for UTI. 2022 023 [facility], [address], [place], [address], 3 10:05:08 urinalysis, dipstick 2022 023 [facility], [address], [place], [address], 3 12:03:37 Referral None recorded. Procedures None recorded. Surgeries None recorded. Imaging None recorded. Medication Orders tamsulosin 0.4 mg capsule 2021 022 [email or web address] 2 [facility], [address] , [place], [address], 2 18:25:29 finasteride 5 mg tablet 2021 022 [email or web address] 2 [facility], [address], [place], [address], 2 18:25:29 Patient TargetsNo targets recorded. Patient Instructions Encounter Date Encounter Id Patient Instructions Last Modified By Organization Details Last Modified Time 11/04/2022 [id number] Pt has F/U appt with Dr Barrientos in [place] on 11/11/2022 @ 3:10pm to review UDS. Not available 10/19/2022 15:50:04 09/23/2022 [id number] Patient to call clinic with questions or concerns. Advised patient to increase water intake and to keep 4 week appointment for next catheter change. [email or web address] Not available 09/23/2022 13:22:30 08/03/2022 [id number] Will reach out t o [place] about patient [email or web address] Not available 08/03/2022 11:17:30 Reason for Referral None Reported. Results Created Date Observation Date Name Description Value Unit Range Abnormal Flag LastModifiedBy Organization Detail LastModifiedTime 11/05/1911/04/2022 URINE CULTU RE final report microb iology result s abnormal Not Available [facility] [address], [place], [address], 11/07/2022 10:05:08 11/05/19 23 11/04/2022 urina lysis , dipst ick Color-Status Straw Not Available [facility] [address], [place], [address], 11/04/2022 12:02:10 11/05/19 23 11/04/2022 urina lysis , dipst ick Clarity-Stat us Slight ly Cloudy Not Available [facility] [address], [place], [address], 11/04/2022 12:02:10 11/05/19 23 11/04/2022 urina lysis , dipst ick Glucose-Stat us 500 Not Available [facility] [address], [place], [address], 11/04/2022 12:02:10 11/05/19 23 11/04/2022 urina lysis , dipst ick Bilirubin-St atus Negati ve Not Available [facility] [address], [place], [address], 11/04/2022 12:02:10 11/05/19 23 11/04/2022 urina lysis , dipst ick Ketones-Stat us Negati ve Not Available [facility] [address], [place], [address], 11/04/2022 12:02:10 11/05/19 23 11/04/2022 urina lysis , dipst ick Sp Webster-Stat us 1.015 Not Available [facility] [address], [place], [address], 11/04/2022 12:02:10 11/05/19 23 11/04/2022 urina lysis , dipst ick pH-Status 6.5 Not Available [facility] [address], [place], [address], 11/04/2022 12:02:10 11/05/19 23 11/04/2022 urina lysis , dipst ick Protein-Stat us 5.0 Not Available [facility] [address], [place], [address], 11/04/2022 12:02:10 11/05/19 23 11/04/2022 urina lysis , dipst ick Urobilinogen -Status 0.2 Not Available [facility] [address], [place], [address], 11/04/2022 12:02:10 11/05/19 23 11/04/2022 urina lysis , dipst ick Nitrates-Sta tus positi ve Not Available [facility] [address], [place], [address], 11/04/2022 12:02:10 11/05/19 23 11/04/2022 urina lysis , dipst ick Blood-Status Large Not Available [facility] [address], [place], [address], 11/04/2022 12:02:10 11/05/19 23 11/04/2022 urina lysis , dipst ick Leuko-Status Large Not Available [facility] [address], [place], [address], 11/04/2022 12:02:10 11/05/19 23 11/04/2022 urina lysis , dipst ick Specimen Type Cathet erized Not Available [facility] [address], [place], [address], 11/04/2022 12:02:10 11/05/19 23 11/04/2022 urina lysis , dipst ick Performed by Jake ross Not Available [facility] [address], [place], [address], 11/04/2022 12:02:10 Result Notes None recorded. Problems Name Status Onset Date Resolution Date Notes Provider Name and Address Organization Details Recorded Time Retention of urine Active [address] [facility] 10/21/2022 13:15:43 Problem Notes None recorded. Procedures Surgical History Date Name Laterality Status Provider Name and Address Organization Details Recorded Time 3 Fill and Pull/Voiding Trial/TOV completed OLMAN Chappell [facility] 12/09/2022 11:59:45 3 Urodynamic Studies completed Deyanira song [facility] 11/04/2022 12:19:38 3 Terry Catheter Insertion completed Deyanira song [facility] 11/04/2022 12:21:21 3 Urethral Catheter Change completed Jenna Harris null, [facility] 10/21/2022 13:18:32 3 Urethral Catheter Change completed Nenita Flores null, [facility] 09/23/2022 13:21:12 3 Terry Catheter Insertion completed Roula Beltran null, [facility] 08/03/2022 11:16:51 3 Fill and Pull/Voiding Trial/TOV completed Roula Beltran null, [facility] 08/03/2022 11:16:41 2 Cystoscopy- male completed Kristopher Barrientos MD, PHD [address] [place] [address],[address], [place], [address], [facility] 06/30/2022 09:37:30 2 Urethral Catheter Change completed Carlos Mix null, [facility] 06/30/2022 09:49:15 2 Terry Catheter Insertion completed Еленаarminda Josue null, [facility] 06/16/2022 15:03:22 2 Fill and Pull/Voiding Trial/TOV completed Roula Tony PA-C [address] [place] [address], [address], [facility] 06/16/2022 18:06:50 Cataract Surgery completed Bear Creekarminda Josue [facility] 06/16/2022 12:30:25 Orthopedic Surgery completed Bear Creekarminda Josue [facility] 06/16/2022 12:30:33 Imaging Results None recorded. [...] Updated DateTime 06/16/2022 180.34 cm 30 kg/m2 82465.36 g Juanito song [facility] 06/16/2022 12:27:07 Date Recorded Body height Provider Name an d Address Organization Details Last Updated DateTime 06/30/2022 180.34 cm Carlos song [facility] 06/30/2022 09:27:04 Date Recorded Body height Provider Name an d Address Organization Details Last Updated DateTime 09/23/2022 180.34 cm Nenita ford [facility] 09/23/2022 13:17:39 Date Recorded Body height Body mass index (BMI) Body weight Provider Name and Address Organization Details Last Updated DateTime 11/11/2022 180.34 cm 30 kg/m2 [address] [facility] 11/11/2022 16:25:51 Social History Question Answer Notes LastModified by Organizat ion Details LastModified Time Tobacco Smoking Status Former Smoker Juanito song [facility] 06/16/2022 12:29:38 What Is [...] Disease N Depression N GERD/Acid Reflux N Diabetes Y Sexually Transmitted Infection N Bleeding Disorder N Cancer N High Cholesterol N Heart Disease Y Past Encounters Encounter ID Performer Location Encounter Start Date Encounter Closed Date Diagnosis/Indication Diagnosis SNOMED-CT Code [id number] Roula Tony PA-C [facility] [address] [place] [address] 06/16/2022 11:30:09 06/20/2022 08:36:10 Retention of urine [id number] Benign pro static hyperplasia with outflow obstruction [id number] Kristopher bains MD, PHD [facility] [address] [place] [address] 06/30/2022 08:46:23 07/04/2022 11:29:58 Retention of urine [id number] Benign pro static hyperplasia with outflow obstruction [id number] Roulaangi Beltran [facility] [address] [place] [address] 08/03/2022 10:27:16 08/05/2022 11:54:14 Retention of urine [id number] Nenitaaranza Flores [facility] [address] [place] [address] 09/23/2022 10:30:04 09/26/2022 14:37:37 [id number] Kristopher bains MD, PHD [facility] [address] [place] [address] 11/04/2022 10:41:00 11/10/2022 13:37:32 Benign prostatic hyperplasia with outflow obstruction [id number] Retention of urine 71793 4002 Microscopic hematuria 19 [id number] Jenna Steven [facility] [address] [place] [address] 10/21/2022 11:27:55 10/24/2022 11:49:09 Retention of urine [id number] Kristopher bains MD, PHD [facility] [address] [address] 11/11/2022 16:25:28 11/17/2022 17:02:38 Retention of urine 229824497 Benign pro static hyperplasia with outflow obstruction [id number] Jenna Harris [facility] [address] [address] 12/09/2022 10:56:01 12/12/2022 15:10:14 Retention of urine 128297543 Health Concerns Section Related Observation LastModified by Organization Detai ls LastModified Time None Recorded Concern Status LastModified by Organization Details LastModified Time None Recorded Advance Directives Directive None Recorded Payers Encounter Date Sequence Insurance Name Policy Number Policy Molina Covered Member ID Molina Member ID Guarantor Name 12/09/2022 1 [place] [employer] Tom B Renaux [id number] Tom B Renaux 12/09/2022 2 [place] [id number] Tom B Renaux [id number] Tom B Renaux 11/11/2022 1 [place] [employer] Tom B Renaux [id number] Tom B Renaux 11/11/2022 2 [place] [id number] Tom B Renaux [id number] Tom B Renaux 11/04/2022 1 [place] [employer] Tom B Renaux [id number] Tom B Renaux 11/04/2022 2 [place] [id number] Tom B Renaux [id number] Tom B Renaux 10/21/2022 1 [place] [employer] Tom B Renaux [id number] Tom B Renaux 10/21/2022 2 [place] [id number] Tom B Renaux [id number] Tom B Renaux 09/23/2022 1 [place] [employer] Tom B Renaux [id number] Tom B Renaux 09/23/2022 2 [place] [id number] Tom B Renaux [id number] Tom B Renaux 08/03/2022 1 [place] [employer] Tom B Renaux [id number] Tom B Renaux 08/03/2022 2 [place] [id number] Tom B Renaux [id number] Tom B Renaux 06/30/2022 1 [place] [employer] Tom B Renaux [id number] Tom B Renaux 06/30/2022 2 [place] [id number] Tom B Renaux [id number] Tom B Renaux 06/16/2022 1 [place] [employer] Tom B Renaux [id number] Tom B Renaux 06/16/2022 2 [place] [id number] Tom B Renaux [id number] Tom B Renaux Notes Date Note Type Note Provider Name and Address Organization Details Recorded Time 06/16/2022 text/html HPI Notes: 77M w ith urinary retention. Here with . Recent hospitalization at [facility] from 04/30-05/30 for MSSA bacteremia with C-spine [...] Tobacco: EtOH: FHx: Roula Tony PA-C [address], [place], [address], [facility] 06/16/2022 18:10:53 06/30/2022 text/html HPI Notes: 77M w ith urinary retention. Here for cysto. Saw LILIBETH Nix. Recent hospitalization at [facility] from 04/30-05/30 for MSSA bacteremia with C-spine [...] EtOH: FHx: Kristopher Barrientos MD, PHD [address], [place], [address], [facility] 06/30/2022 14:06:37 09/23/2022 text/html [...] for next catheter change. Nenita Sandramahamed song [facility] 09/23/2022 13:22:32 10/21/2022 text/html HPI Notes: Pt he re for catheter change Jenna Harris nohemi [facility] 10/21/2022 13:21:54 11/11/2022 text/html HPI Notes: 77M w ith urinary retention. Hospitalization at [facility] from 04/30-05/30 for MSSA bacteremia with C-spine [...] their care. Kristopher Barrientos MD, PHD [address], [place], [address], [facility] 11/11/2022 17:49:57 12/09/2022 text/html HPI Notes: Pt of Dr PALMER, here for TOV recommended at 11/11/22 visit OLMAN Chappell - [facility] 12/09/2022 12:43:22
== END 2023-11-13 14:14 | disposition home or self-care (01) ==
LOC: WOUND 14:14
PROVIDERS: Visit Provider Nurse Practitioner Family
DX: E11.621 Type 2 diabetes mellitus with foot ulcer (principal); L97.412 Non-pressure chronic ulcer of right heel and midfoot with fat layer exposed; I87.2 Venous insufficiency (chronic) (peripheral); Z79.4 Long term (current) use of insulin; Z79.84 Long term (current) use of oral hypoglycemic drugs
CPT/HCPCS: 97602; G0463

== ENCOUNTER 2023-11-20 13:13 | Outpatient (CLI) | payer MEDICARE, BC, SELFPAY ==
--- OUTSIDE RECORDS SUMMARY | 2023-11-20 13:15 | XMS_ITS | Clinical Summary ---
Author Name Unknown Organization [facility] Address [address] [place] [address] Care Team Providers Care Educational Administrator Name Role Phone Post, Dave Wakefield Primary Care Provider [phone] Medications Medication Sig Dispensed Refills Start Date [...] Comments Blood Pressure 148/85 06/26/2018 5:58 PM TANK CALIBRATOR Pulse 90 06/26/2018 5:58 PM TANK CALIBRATOR Temperature 36.6 ??C (97.8 ??F) 06/26/2018 5:58 PM CS T Respiratory Rate 18 06/26/2018 5:58 PM TANK CALIBRATOR Oxygen Saturation 95% 06/26/2018 7:00 PM TANK CALIBRATOR Inhaled Oxygen Concentration - - Weight 112 kg (247 lb) 06/26/2018 5:58 PM TANK CALIBRATOR Height 180.3 cm (5' 11) 06/26/2018 5:58 PM TANK CALIBRATOR Body Mass Index 34.45 06/26/2018 5:58 PM TANK CALIBRATOR Plan of Treatment Not on file Care Teams Educational Administrator Relationship Specialty Start Date End Date Post, Dave Wakefield PCP - General Internal Medicine 06/26/18
--- OUTSIDE RECORDS SUMMARY | 2023-11-20 13:15 | XMS_ITS | Referral Summary ---
Author Name Unknown Organization [place] Address [address] [place] [address] Care Team Providers Care Cable Tool Operator Name Role Phone Post, Dave Wakefield Primary Care Provider [phone] Medications Medication Sig Dispensed Refills Start Date [...] Comments Blood Pressure 148/85 06/26/2018 5:58 PM TROUSSEAU CONSULTANT Pulse 90 06/26/2018 5:58 PM TROUSSEAU CONSULTANT Temperature 36.6 ??C (97.8 ??F) 06/26/2018 5:58 PM CS T Respiratory Rate 18 06/26/2018 5:58 PM TROUSSEAU CONSULTANT Oxygen Saturation 95% 06/26/2018 7:00 PM TROUSSEAU CONSULTANT Inhaled Oxygen Concentration - - Weight 112 kg (247 lb) 06/26/2018 5:58 PM TROUSSEAU CONSULTANT Height 180.3 cm (5' 11) 06/26/2018 5:58 PM TROUSSEAU CONSULTANT Body Mass Index 34.45 06/26/2018 5:58 PM TROUSSEAU CONSULTANT Plan of Treatment Not on file Care Teams Cable Tool Operator Relationship Specialty Start Date End Date Post, Dave Wakefield PCP - General Internal Medicine 06/26/18
--- OUTSIDE RECORDS SUMMARY | 2023-11-20 13:16 | XMS_ITS | Clinical Summary ---
Author Name Unknown Organization [facility] [employer] [facility] Address [place], [place] [address] Care Team Providers Care Sfdc Architect Name Role Phone Post, Dave Velazquez MD Primary Care Provider Moshe Enciso MD Unavailable Arie Justin MD Unavailable [phone] [facility], [facility] Unavailable Murali Hoover DPM Unavailable [phone] Allergies No known active allergies Medications [...] to Care Guide Pamella Brennan Phone number [phone]. Alcohol abuse 06/02/2010 03/26/2019 Overview: Sober since 2001. Great success with AA. 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 10/06/2023 Pyogenic arthritis of left shoulder region 06/17/2022 Encounters Date Type Department Care Team Description 11/03/2023 11:00 AM CDT Office Visit [facility] - [facility] [address] [place] [address] Post, Dave Velazquez MD Form (diabetic shoes) 11/03/2023 Travel 10/25/2023 1:00 PM CDT Orders Only [facility] [address] [place] [address] Lab, [facility] 10/25/2023 Travel 10/06/2023 1:30 PM BIN CLEANER Phone Office Visit [facility] - [facility] [address] [place] [address] Post, Dave Velazquez MD 10/03/2023 Travel 09/05/2023 Orders Only [facility] Scanner 1 scan: (1-Ord) [facility], MRI RT FOOT HINDFOOT THROUGH MIDFOOT WITHOUT WITH CONTRAST, 09/05/2023 09/04/2023 10:30 AM BIN CLEANER Ancillary Procedure [facility] [address] [place] [address] 09/04/2023 Travel from Last 3 Months Immunizations [...] 36.7 ??C (98 ??F) 06/29/2022 8:43 AM BIN CLEANER Respiratory Rate 18 06/29/2022 8:43 AM BIN CLEANER Oxygen Saturation 96% 07/21/2023 1:34 PM BIN CLEANER Inhaled Oxygen Concentration - - Weight 107 kg (236 lb) 11/03/2023 11:13 AM CDT w ith shoes Height 180.3 cm (5' 10.98) 07/21/2023 1:[address] Body Mass Index 32.93 07/21/2023 1:34 PM BIN CLEANER Plan of Treatment Health Maintenance Due Date [...] 07/16/2020, 04/21/2020 Medical Devices Implanted Type Area Head Host/Hostess Device Identifier Shelf Expiration Date Model / Serial / Lot [id number] - [id number] Implanted:Qty: 1 on 09/20/2021 at [facility] Right: Foot [employer] AR-8725-4 4H / / Description:COMPRESSION FT S CREWS CANNULATED, 2.5 MICRO 44MM LOAD [id number] [facility]-1530p - [id number] Implanted:Qty: 1 on 09/20/2021 at [facility] Right: Foot [employer] 03/30/2025 AR-1530P- CP / / [id number] Description:FOREFOOT INTERNA L BRACE IMPLANT SYSTEM, PEEK Screw 4.33d52fd Bio Com[employer]itetenodesis Disp Product Communications Manager Pk - [id number] Implanted:Qty: 1 on 09/20/2021 at [facility] Right: Foot [employer] 08/30/2022 AR-1547CD S / / [id number] Ancr Sut 1.3mm Dx Fibertak Suturetape 2 Ndl 26.2mm 08/01 [facility] - [id number] Implanted:Qty: 1 on 09/20/2021 at [facility] Right: Foot [employer] 06/29/2026 AR-8990ST / / [id number] Explanted Type Area Head Host/Hostess Device Identifier Shelf Expiration Date Model / Serial / Lot Wire Kirs .[id number] Smooth6/Pk 10000 Depuy/Héctor - [id number] Explanted:Qty: 1 on 09/20/2021 at [facility] Right: Foot [employer] / / Description:LOAD 4 8 [id number] [facility]8737-40 - [id number] Explanted:Qty: 1 on 09/20/2021 at [facility] Right: Foot [employer] AR-8737-40 / / Description:2.5 MICRO COMPRE SSION FT DRILLS AND DISPOSABLES, GUIDEWIRE W TROCAR TIP, THREADED, 0.34 IN (.86MM) LOAD 4 7 [id number] Procedures Procedure Name Priority Date/Time Associated Diagnosis [...] diabetes mellitus with diabetic neuropathy, unspecified whether retirement insulin use (HC) SCAN-MRI INTERPRETATION 09/05/2023 12:00 AM BIN CLEANER ECHO TTE COMPLETE WO CONTRAST Routine 09/04/2023 11:00 AM BIN CLEANER SOB (shortness of breath) Fatigue, unspecified type Irregular heart beat CT CHEST PE STUDY Routine 05/10/2022 7:5 0 PM CDT OCCULT BLOOD IFOBT STOOL Routine 07/03/2013 7:00 PM BIN CLEANER Screening for colon cancer from Last 3 Months or Most Recently Relevant to Health Maintenance Results * (ABNORMAL) CBC WITH AUTO DIFFERENTIAL (10/25/2023 12:59 PM CDT) WHITE BLOOD COUNT 8.1 4.5 - 11.0 thou/cu mm 10/25/2023 1:36 PM CDT [facility] RED BLOOD COUNT 4.53 4.30 - 5.90 mil/cu mm 10/25/2023 1:36 PM CDT [facility] HEMOGLOBIN 12.4(L) 13.5 - 17.5 g/dL 10/25/2023 1:36 PM CDT [facility] HEMATOCRIT 38.9 37.0 - 53.0 % 10/25/2023 1:36 PM CDT [facility] MCV 86 80 - 100 fL 10/25/2023 1:36 PM CDT [facility] MCH 27.4 26.0 - 34.0 pg 10/25/2023 1:36 PM CDT [facility] MCHC 31.9(L) 32.0 - 36.0 g/dL 10/25/2023 1:36 PM CDT [facility] RDW 16.5(H) 11.5 - 15.5 % 10/25/2023 1:36 PM CDT [facility] PLATELET COUNT 175 140 - 440 thou/cu mm 10/25/2023 1:36 PM CDT [facility] MPV 10.3 6.5 - 11.0 fL 10/25/2023 1:36 PM CDT [facility] % NEUT 66.6 % 10/25/2023 1:36 PM CDT [facility] % LYMPH 21.6 % 10/25/2023 1:36 PM CDT [facility] % MONO 7.3 % 10/25/2023 1:36 PM CDT [facility] % EOS 4.3 % 10/25/2023 1:36 PM CDT [facility] % BASO 0.2 % 10/25/2023 1:36 PM CDT [facility] ABSOLUTE NEUTROPHILS 5.4 1.7 - 7.0 thou/cu mm 10/25/2023 1:36 PM CDT [facility] ABSOLUTE LYMPHOCYTES 1.7 0.9 - 2.9 thou/cu mm 10/25/2023 1:36 PM CDT [facility] ABSOLUTE MONOCYTES 0.6 <0.9 thou/cu mm 10/25/2023 1:36 PM CDT [facility] ABSOLUTE EOSINOPHILS 0.4 <0.5 thou/cu mm 10/25/2023 1:36 PM CDT [facility] ABSOLUTE BASOPHILS 0.0 <0.3 thou/cu mm 10/25/2023 1:36 PM CDT [facility] Blood BLOOD SPECIMEN / Unknown Venipuncture / Unknown 10/25/2023 12:59 PM CDT 10/25/2023 12:59 PM CDT Narrative [facility] - 10/25/2023 1:36 PM CDT This procedure was originally ordered at [facility]. This procedure was originally ordered at [facility]. Dave Garrett MD HEMATOLOGY [facility] [address] [place] [address], * TSH WITH REFLEX (10/25/2023 12:59 PM CDT) TSH 1.43 0.27 - 4.20 uIU/mL 10/25/2023 10:26 PM CDT [facility] Blood BLOOD SPECIMEN / Unknown Venipuncture / Unknown 10/25/2023 12:59 PM CDT 10/25/2023 12:59 PM CDT [facility] - 10/25/2023 10:26 PM CDT In Adults, TSH values between 5.00 and 10.00 uIU/ml do not necessarily indicate the presence of Hypothyroidism. Correlation with clinical findings such as presence of goiter and/or Thyroperoxidase (TPO) Antibody may be helpful. For more information please refer to OLWELL 2004; 291: 228-238. Dave Garrett MD CHEMISTRY [facility] [address] [place] [address], * (ABNORMAL) Creatinine (10/25/2023 12:59 PM CDT) eGFR 71(L) >90 mL/min/1.7 3m2 10/25/2023 10:26 PM CDT [facility] Comment:As of 2021, eG FR is calculated by the CKD-EPI creatinine equation without race adjustment. ??eGFR can be influenced by muscle mass, exercise, and diet. ??The reported eGFR is an estimation only and is only applicable if the renal function is stable. CREATININE 1.08 0.70 - 1.20 mg/dL 10/25/2023 10:26 PM CDT [facility] Blood BLOOD SPECIMEN / Unknown Venipuncture / Unknown 10/25/2023 12:59 PM CDT 10/25/2023 12:59 PM CDT Dave Garrett MD CHEMISTRY Performing Organization Address City/[facility]/ZIP Co de Phone Number [facility] [address] [place] [address], * (ABNORMAL) Hemoglobin A1c (monitoring) (10/25/2023 12:59 PM CDT) HEMOGLOBIN A1C MONITORING (POCT) 7.9(H) <=6.4 % 10/25/2023 3:27 PM CDT [facility] Blood BLOOD SPECIMEN / Unknown Venipuncture / Unknown 10/25/2023 12:59 PM CDT 10/25/2023 12:59 PM CDT Narrative [facility] - 10/25/2023 3:27 [...] Dave Garrett MD CHEMISTRY Performing Organization Address City/[facility]/ZIP Co de Phone Number [facility] [address] [place] [address], * SCAN-MRI INTERPRETATION (09/05/2023 12:00 AM BIN CLEANER) Anatomical Region Laterality Modality Other Scanner OTHER * ECHO TTE COMPLETE WO CONTRAST (09/04/2023 11:00 AM BIN CLEANER) EJECTION FRACTION 50-55% PROSOLV Anatomical Region Laterality Modality Ultrasound 09/04/2023 10:2 8 AM BIN CLEANER Narrative 09/04/2023 2:53 PM BIN CLEANER [address], [place] [address] Main: ? Transthoracic Echo Report MIGUELINA PÉREZ ID: [id number] Age: 78 : 1945 Ordering Provider: JOSE RICHARDSON Exam Date: 09/04/2023 10:28 Gender: M Gang Leader: NAHOMY Height: 70.1 in BSA: 2.22 m?? BP: 126 / 60 Weight: 231 lbs BMI: 33.1 kg/m?? HR: 77 Location: [facility] Rhythm: Normal Sinus Rhythm, With PVC [...] ZScore: 0.95 Jacinta Page MD (Electronically Signed) [facility] Accredited Site Final Date: 04 September 2023 14:52 ICD-10 Codes: R06.02; I49.9; R53.83 Procedure Note Jacinta Page MD - 09/04/[address], [place] [address] Main: Transthoracic Echo Report MIGUELINA PÉREZ ID: [id number] Age: 78 : 1945 Ordering Provider:JOSE RICHARDSON Exam Date: 09/04/2023 10:28 Gender: M Gang Leader: NAHOMY Height: 70.1 in BSA: 2.22 m?? BP: 126 / 60 Weight: 231 lbs BMI: 33.1 kg/m?? HR: 77 Location: [facility] Rhythm: Normal Sinus Rhythm, WithPVC Procedure [...] echo contrast agent was not available at [facility] site. MEASUREMENTS (Male / Female) Normal Values [...] ZScore: 0.95 Jacinta Tuohy MD (Electronically Signed) [facility] Accredited Site Final Date: 04 September 2023 [...] Occult Blood Stool (IFOBT) (07/03/2013 7:00 PM BIN CLEANER) STOOL BLOOD ,IFOBT Negative Negative, Invalid 07/04/2013 3:03 PM BIN CLEANER [facility] Stool specimen (specimen) STOOL SPECIMEN / Unknown Non-Blood / Unknown 07/03/2013 7:00 PM BIN CLEANER 07/04/2013 2:39 PM BIN CLEANER Dave Garrett MD LABORATORY [facility] [address] [place] [address] from Last 3 Months or Most Recently Relevant to Health Maintenance Advance Directives Documents on File Type Date Recorded Patient Prop Setter Expl anation Healthcare Directive 05/21/2021 3:50 PM [...] Code Status Discussion: Reviewed Preferences Care Teams Sfdc Architect Relationship Specialty Start Date End Date Post, Dave Velazquez MD PCP - General 06/02/10 Moshe Enciso MD [address] [place], [place] [address] Endocrinology Endocrinology 01/04/18 [place] [address] [place], [place] [address] Surgery - Ophthalmology 03/22/18 [facility] [address] [place], [place] [address] 06/08/21 Murali Hoover DPM [address] [facility] [place] [address] Surgery - Podiatric 01/03/23
--- OUTSIDE RECORDS SUMMARY | 2023-11-20 13:16 | XMS_ITS | Data Portability ---
Author Name Unknown Address [address] [place] [address] Phone [phone] Organization [facility] Address [address] [place] [address] Care Team Providers Care Columnist Name Role Phone POST, SUE Primary Care [...] to efficacy (6+ months) and side effects [email or web address] Not available 06/16/2022 18:10:42 06/30/2022 06/30/2022 77M [...] UTI. 2022 023 [facility], [address], [place], [address], 3 10:05:08 urinalysis, dipstick 2022 023 [facility], [address], [place], [address], 3 12:03:37 Referral None recorded. Procedures None recorded. Surgeries None recorded. Imaging None recorded. Medication Orders tamsulosin 0.4 mg capsule 2021 022 [email or web address] 2 [facility], [address] , [place], [address], 2 18:25:29 finasteride 5 mg tablet 2021 022 [email or web address] 2 [facility], [address], [place], [address], 2 18:25:29 Patient TargetsNo targets recorded. Patient Instructions Encounter Date Encounter Id Patient Instructions Last Modified By Organization Details Last Modified Time 11/04/2022 [id number] Pt has F/U appt with Dr Barrientos in [place] on 11/11/2022 @ 3:10pm to review UDS. Not available 10/19/2022 15:50:04 09/23/2022 [id number] Patient to call clinic with questions or concerns. Advised patient to increase water intake and to keep 4 week appointment for next catheter change. [email or web address] Not available 09/23/2022 13:22:30 08/03/2022 [id number] Will reach out t o [place] about patient [email or web address] Not available 08/03/2022 11:17:30 Reason for Referral None Reported. Results Created Date Observation Date Name Description Value Unit Range Abnormal Flag LastModifiedBy Organization Detail LastModifiedTime 11/05/1911/04/2022 URINE CULTU RE final report microb iology result s abnormal Not Available [facility] [address], [place], [address], 11/07/2022 10:05:08 11/05/19 23 11/04/2022 urina lysis , dipst ick Color-Status Straw Not Available [facility] [address], [place], [address], 11/04/2022 12:02:10 11/05/19 23 11/04/2022 urina lysis , dipst ick Clarity-Stat us Slight ly Cloudy Not Available [facility] [address], [place], [address], 11/04/2022 12:02:10 11/05/19 23 11/04/2022 urina lysis , dipst ick Glucose-Stat us 500 Not Available [facility] [address], [place], [address], 11/04/2022 12:02:10 11/05/19 23 11/04/2022 urina lysis , dipst ick Bilirubin-St atus Negati ve Not Available [facility] [address], [place], [address], 11/04/2022 12:02:10 11/05/19 23 11/04/2022 urina lysis , dipst ick Ketones-Stat us Negati ve Not Available [facility] [address], [place], [address], 11/04/2022 12:02:10 11/05/19 23 11/04/2022 urina lysis , dipst ick Sp [place]-Stat us 1.015 Not Available [facility] [address], [place], [address], 11/04/2022 12:02:10 11/05/19 23 11/04/2022 urina lysis , dipst ick pH-Status 6.5 Not Available [facility] [address], [place], [address], 11/04/2022 12:02:10 11/05/19 23 11/04/2022 urina lysis , dipst ick Protein-Stat us 5.0 Not Available [facility] [address], [place], [address], 11/04/2022 12:02:10 11/05/19 23 11/04/2022 urina lysis , dipst ick Urobilinogen -Status 0.2 Not Available [facility] [address], [place], [address], 11/04/2022 12:02:10 11/05/19 23 11/04/2022 urina lysis , dipst ick Nitrates-Sta tus positi ve Not Available [facility] [address], [place], [address], 11/04/2022 12:02:10 11/05/19 23 11/04/2022 urina lysis , dipst ick Blood-Status Large Not Available [facility] [address], [place], [address], 11/04/2022 12:02:10 11/05/19 23 11/04/2022 urina lysis , dipst ick Leuko-Status Large Not Available [facility] [address], [place], [address], 11/04/2022 12:02:10 11/05/19 23 11/04/2022 urina lysis , dipst ick Specimen Type Cathet erized Not Available [facility] [address], [place], [address], 11/04/2022 12:02:10 11/05/19 23 11/04/2022 urina lysis , dipst ick Performed by Jake ross Not Available [facility] [address], [place], [address], 11/04/2022 12:02:10 Result Notes None recorded. Problems Name Status Onset Date Resolution Date Notes Provider Name and Address Organization Details Recorded Time Retention of urine Active 3 Jenna song [facility] 10/21/2022 13:15:43 Problem Notes None recorded. Procedures Surgical History Date Name Laterality Status Provider Name and Address Organization Details Recorded Time 3 Fill and Pull/Voiding Trial/TOV completed OLMAN Chappell [facility] 12/09/2022 11:59:45 3 Urodynamic Studies completed Deyanira song [facility] 11/04/2022 12:19:38 3 Terry Catheter Insertion completed Deyanira song [facility] 11/04/2022 12:21:21 3 Urethral Catheter Change completed Jenna Harris null, [facility] 10/21/2022 13:18:32 3 Urethral Catheter Change completed Nenita Flores null, [facility] 09/23/2022 13:21:12 3 Terry Catheter Insertion completed Roula Beltran null, [facility] 08/03/2022 11:16:51 3 Fill and Pull/Voiding Trial/TOV completed Roula Beltran null, [facility] 08/03/2022 11:16:41 2 Cystoscopy- male completed Kristopher Barrientos MD, PHD [address] [place] [address],[address], [address], [facility] 06/30/2022 09:37:30 2 Urethral Catheter Change completed Carlos Mix null, [facility] 06/30/2022 09:49:15 2 Terry Catheter Insertion completed Еленаarminda Josue null, [facility] 06/16/2022 15:03:22 2 Fill and Pull/Voiding Trial/TOV completed Roula Tony PA-C [address] [place] [address], [address], [facility] 06/16/2022 18:06:50 Cataract Surgery completed Livingstonarminda Josue [facility] 06/16/2022 12:30:25 Orthopedic Surgery completed Livingstonarminda Josue [facility] 06/16/2022 12:30:33 Imaging Results None recorded. [...] Updated DateTime 06/16/2022 180.34 cm 30 kg/m2 34979.36 g Juanito song [facility] 06/16/2022 12:27:07 Date Recorded Body height Provider Name an d Address Organization Details Last Updated DateTime 06/30/2022 180.34 cm Carlos song [facility] 06/30/2022 09:27:04 Date Recorded Body height Provider Name an d Address Organization Details Last Updated DateTime 09/23/2022 180.34 cm Nenita ford [facility] 09/23/2022 13:17:39 Date Recorded Body height Body mass index (BMI) Body weight Provider Name and Address Organization Details Last Updated DateTime 11/11/2022 180.34 cm 30 kg/m2 31825.36 g Amanda song [facility] 11/11/2022 16:25:51 Social History Question Answer Notes LastModified by Organizat ion Details LastModified Time Tobacco Smoking Status Former Smoker Juanito song [facility] 06/16/2022 12:29:38 What Is [...] High Blood Pressure N Kidney Stones N Depression N Lung Disease N GERD/Acid Reflux N Diabetes Y Sexually Transmitted Infection N Bleeding Disorder N Cancer N High Cholesterol N Heart Disease Y Past Encounters Encounter ID Performer Location Encounter Start Date Encounter Closed Date Diagnosis/Indication Diagnosis SNOMED-CT Code [id number] Roula Tony PA-C [facility] [address] [place] [address] 06/16/2022 11:30:09 06/20/2022 08:36:10 Retention of urine [id number] Benign pro static hyperplasia with outflow obstruction [id number] Kristopher bains MD, PHD [facility] [address] [place] [address] 06/30/2022 08:46:23 07/04/2022 11:29:58 Retention of urine 140147095 Benign pro static hyperplasia with outflow obstruction [id number] Roulaangi Beltran [facility] [address] [place] [address] 08/03/2022 10:27:16 08/05/2022 11:54:14 Retention of urine [id number] Nenitaaranza Flores [facility] [address] [place] [address] 09/23/2022 10:30:04 09/26/2022 14:37:37 [id number] Kristopher bains MD, PHD [facility] [address] [place] [address] 11/04/2022 10:41:00 11/10/2022 13:37:32 Benign prostatic hyperplasia with outflow obstruction 617006100 Retention of urine 37652 4002 Microscopic hematuria 19 9331358 [id number] Jenna Steven [facility] [address] [place] [address] 10/21/2022 11:27:55 10/24/2022 11:49:09 Retention of urine 612230666 [id number] Kristopher bains MD, PHD [facility] [address] [address] 11/11/2022 16:25:28 11/17/2022 17:02:38 Retention of urine [id number] Benign pro static hyperplasia with outflow obstruction [id number] Jenna Harris [facility] [address] [place] [address] [address] 12/09/2022 10:56:01 12/12/2022 15:10:14 Retention of urine [id number] Health Concerns Section Related Observation LastModified by Organization Detai ls LastModified Time None Recorded Concern Status LastModified by Organization Details LastModified Time None Recorded Advance Directives Directive None Recorded Payers Encounter Date Sequence Insurance Name Policy Number Policy Molina Covered Member ID Molina Member ID Guarantor Name 12/09/2022 1 [place] [employer] Tom B Renaux [id number] Tom B Renaux 12/09/2022 2 [place] [id number] Tom B Renaux [id number] Tom B Renaux 11/11/2022 1 [place] [employer] Tom B Renaux [id number] Tom B Renaux 11/11/2022 2 [place] [id number] Tom B Renaux [id number] Tom B Renaux 11/04/2022 1 [place] [employer] Tom B Renaux [id number] Tom B Renaux 11/04/2022 2 [place] [id number] Tom B Renaux [id number] Tom B Renaux 10/21/2022 1 [place] [employer] Tom B Renaux [id number] Tom B Renaux 10/21/2022 2 [place] [id number] Tom B Renaux [id number] Tom B Renaux 09/23/2022 1 [place] [employer] Tom B Renaux [id number] Tom B Renaux 09/23/2022 2 [place] [id number] Tom B Renaux [id number] Tom B Renaux 08/03/2022 1 [place] [employer] Tom B Renaux [id number] Tom B Renaux 08/03/2022 2 [place] [id number] Tom B Renaux [id number] Tom B Renaux 06/30/2022 1 [place] [employer] Tom B Renaux [id number] Tom B Renaux 06/30/2022 2 [place] [id number] Tom B Renaux [id number] Tom B Renaux 06/16/2022 1 [place] [employer] Tom B Renaux [id number] Tom B Renaux 06/16/2022 2 [place] [id number] Tom B Renaux [id number] Tom B Renaux Notes Date Note Type Note Provider Name and Address Organization Details Recorded Time 06/16/2022 text/html HPI Notes: 77M w ith urinary retention. Here with . Recent hospitalization at [facility] from 04/30-05/30 for MSSA bacteremia with C-spine [...] Tobacco: EtOH: FHx: Roula Tony PA-C [address], [place], [address], [facility] 06/16/2022 18:10:53 06/30/2022 text/html HPI Notes: 77M w ith urinary retention. Here for cysto. Saw LILIBETH Nix. Recent hospitalization at [facility] from 04/30-05/30 for MSSA bacteremia with C-spine [...] EtOH: FHx: Kristopher Barrientos MD, PHD [address], [place], [address], [facility] 06/30/2022 14:06:37 09/23/2022 text/html HPI Notes: [...] for next catheter change. Nenita Sandramahamed song [facility] 09/23/2022 13:22:32 10/21/2022 text/html HPI Notes: Pt he re for catheter change Jenna Harris nohemi [facility] 10/21/2022 13:21:54 11/11/2022 text/html HPI Notes: 77M w ith urinary retention. Hospitalization at [facility] from 04/30-05/30 for MSSA bacteremia with C-spine [...] their care. Kristopher Barrientos MD, PHD [address], [place], [address], [facility] 11/11/2022 17:49:57 12/09/2022 text/html HPI Notes: Pt of Dr PALMER, here for TOV recommended at 11/11/22 visit OLMAN Chappell - [facility] 12/09/2022 12:43:22
--- OUTSIDE RECORDS SUMMARY | 2023-11-20 13:16 | XMS_ITS | Continuity of Care Document ---
Author Name [facility] Organization [facility] Care Team Providers Care Enrollment Nurse Name Role Phone [facility] Unavailable Unavailable Problems Combined list of problems from Department of Defense and Veterans Affairs facilities. It does not include entries that were removed or entered in error. Problem Status Onset Date Problem Type Date of Resolution Comments Source Exposure to potentially hazardous substance ([facility] [id number]) Active 10/05/19 24 Condition Oct 05, 2023 Entered By: VIJI VIVAS Comment[facility] Documentation Initiative [facility] Depressive Disorder NOS * (ICD-9-CM 311./300.4) Active Condition [facility] Diabetes mellitus (SNOMED CT 86845997) Active Condition [facility] Diabetic neuropathy Active Condition [facility] Foot Pain (ICD-9-CM 719.47) Active Condition Aug 26 10 Entered By: MALINA WORLEY Comment: left 5th metatarsal fracture [facility] History of amputation of lesser toe Active Condition [facility] Hyperlipidemia (SNOMED CT 48819051) Active Condition [facility] Hyperuricemia Active Condition [facility] ([facility]) Osteopenia Active Condition [place] ([facility]) Other Iatrogenic Hypotension Active Condition [place] ([facility]) Personal History of Alcoholism (ICD-9-CM V11.3) Active Condition [facility] Tobacco user (SNOMED CT 230702144) Active Condition [facility] Diagnosis: ICD-10-CM E11.621 Type 2 diabetes mellitus with foot ulcer Active Diagnosis [facility] Diagnosis: ICD-10-CM E11.42 Type 2 diabetes mellitus with diabetic polyneuropathy Active Diagnosis [facility] Diagnosis: ICD-10-CM Z77.29 Contact with and exposure to other hazardous substances Active Diagnosis [facility] Medications Combined list of outpatient medications [...] DAY ORALLY ACTIVE FISHCHARLEE Bowers Robinson 2022 [facility] [place] [facility] ASPIRIN 81MG TAB,EC TAKE ONE TABLET BY MOUTH EVERY DAY ORALLY ACTIVE JEFF CHOUDHARY ER A 2006 [facility] [place] [facility] ATORVASTATI N CA 40MG TAB TAKE ONE TABLET BY MOUTH EVERY DAY FOR CHOLESTE ROL ORALLY SUSPEND ED 04/11/2024 [id number] 4 FISH CHARLEE A 2022 90 [facility] AT[facility] [place] 40MG TAB TAKE ONE TABLET BY MOUTH EVERY DAY FOR CHOLESTE ROL ORALLY DISCONT INUED 07/15/2023 [id number] 3 NAFELICITYLTOD D 2022 90 [facility] CHOLECALCIF QUINTIN TAB TAKE 5000 UNITS BY MOUTH EVERY DAY ORALLY ACTIVE FISH, CHARLEE Robinson 2022 [facility] COENZYME Q10 CAP/TAB TAKE 1 CAPSULE BY MOUTH EVERY DAY ORALLY ACTIVE ABE CHARLEE Robinson 2022 [facility] CYANOCOBALA MIN 1000MCG TAB TAKE ONE TABLET BY MOUTH EVERY DAY ORALLY ACTIVE NAFELICITYLTOTwyla D 2021 [facility] DICLOFENAC NA 1% GEL,TOP APPLY 4 GRAMS TOPICALL Y FOUR TIMES A DAY NEEDED FOR JOINT PAIN TOPICA LLY ACTIVE 03/22/2024 [id number] 3 ABE CHARLEE A 2022 100 [facility] FINASTERIDE 5MG TAB TAKE ONE TABLET BY MOUTH EVERY DAY FOR PROSTATE ORALLY ACTIVE 04/11/2024 [id number] 4 ABE CHARLEE A 2022 90 [facility] FINASTERIDE 5MG TAB TAKE ONE TABLET BY MOUTH EVERY DAY FOR PROSTATE ORALLY DISCONT INUED 07/13/2023 [id number] 3 ABE CHARLEE A 2021 90 [facility] FISH OIL 1000MG (500MG DHA/EPA) CAP,ORAL TAKE 1 CAPSULE BY MOUTH TWICE A DAY ORALLY ACTIVE JEFF CHOUDHARY A 2006 [facility] INSULIN,GLA RGINE,HUMAN 100 UNIT/ML INJ,SOLOSTA R,3ML INJECT 22 UNITS UNDER THE SKIN AT BEDTIME FOR DIABETES SUBCUT ANEOUS DISCONT INUED (EDIT) 09/30/2023 [id number] 3 NAIDL,TOD D 2022 5 [facility] INSULIN,GLA RGINE,HUMAN 100 UNIT/ML INJ,SOLOSTA R,3ML INJECT 24 UNITS UNDER THE SKIN AT BEDTIME FOR DIABETES SUBCUT ANEOUS DISCONT INUED (EDIT) 07/15/2023 [id number] 3 NAIDL,TOD D 2022 5 [facility] INSULIN,GLA RGINE-YFGN 100UNIT/ML INJ PEN,3ML INJECT 24 UNITS UNDER THE SKIN EVERY EVENING FOR DIABETES SUBCUT ANEOUS ACTIVE 08/29/2024 [id number] 4 NAIDL,TOD D 2023 5 [facility] INSULIN,GLA RGINE-YFGN 100UNIT/ML INJ PEN,3ML INJECT 22 UNITS UNDER THE SKIN AT BEDTIME FOR DIABETES SUBCUT ANEOUS DISCONT INUED (EDIT) 01/07/2024 [id number] 3 NAIDL,TOD D 2022 5 [facility] INSULIN,GLA RGINE-YFGN 100UNIT/ML INJ PEN,3ML INJECT 20 UNITS UNDER THE SKIN AT BEDTIME FOR DIABETES SUBCUT ANEOUS DISCONT INUED (EDIT) 12/08/2023 [id number] 3 NAIDL,TOD D 2022 5 [facility] INSULIN,GLA RGINE-YFGN 100UNIT/ML INJ PEN,3ML INJECT 18 UNITS UNDER THE SKIN AT BEDTIME FOR DIABETES SUBCUT ANEOUS DISCONT INUED (EDIT) 11/08/2023 [id number] 3 NAIDL,TOD D 2022 5 [facility] LIDOCAINE 4% CREAM,TOP APPLY MODERATE AMOUNT TOPICALL Y THREE TIMES A DAY FOR PAIN TOPICA LLY ACTIVE 03/22/2024 [id number] 3 CHARLEE FISH 2022 30 [facility] MAGNESIUM OXIDE 400MG TAB TAKE ONE TABLET BY MOUTH EVERY DAY ORALLY ACTIVE CHARLEE FISH 2022 [facility] M[facility]/MET HYL SALICYLATE (10-15%) LOW CONC. CREAM,TOP APPLY THIN LAYER TOPICALL Y THREE TIMES A DAY FOR MUSCLE PAIN TOPICA LLY ACTIVE 03/22/2024 [id number] 3 CHARLEE FISH 2022 90 [facility] METFORMIN HCL 1000MG TAB TAKE ONE TABLET BY MOUTH TWICE A DAY FOR DIABETES ORALLY ACTIVE 04/11/2024 [id number] 4 CHARLEE FISH 2022 180 [facility] METFORMIN HCL 1000MG TAB TAKE ONE TABLET BY MOUTH TWICE A DAY FOR DIABETES ORALLY DISCONT INUED 07/15/2023 [id number] 3 NAIDL,TOD D 2022 180 [facility] OMEPRAZOLE 20MG CAP,EC TAKE ONE CAPSULE BY MOUTH EVERY DAY ON AN EMPTY STOMACH, AT LEAST 30 MINUTES PRIOR TO A MEAL FOR GERD ORALLY ACTIVE 03/22/2024 [id number] 3 CHARLEE FISH 2022 90 [facility] SEMAGLUTIDE 0.5MG/0.375 ML INJ,SOLN,PE N,1.5ML INJECT 0.5MG UNDER THE SKIN EVERY WEEK FOR DIABETES SUBCUT ANEOUS DISCONT INUED (EDIT) 07/15/2023 [id number] 3 NAIDL,TOD D 2022 1 [facility] SEMAGLUTIDE 1MG/0.75ML INJ,SOLN,PE N,3ML INJECT 1MG UNDER THE SKIN EVERY WEEK FOR DIABETES SUBCUT ANEOUS ACTIVE 11/07/2024 [id number] 4 NAIDL,TOD D 2023 1 [facility] [place] [facility] SEMAGLUTIDE 1MG/0.75ML INJ,SOLN,PE N,3ML INJECT 1MG UNDER THE SKIN EVERY WEEK FOR DIABETES SUBCUT ANEOUS DISCONT INUED 11/08/2023 [id number] NAIDL,TOD D 2022 1 [facility] TAMSULOSIN HCL 0.4MG CAP TAKE ONE CAPSULE BY MOUTH EVERY EVENING ORALLY ACTIVE 04/13/2024 [id number] 4 CHARLEE FISH A 2022 30 [facility] TAMSULOSIN HCL 0.4MG CAP TAKE ONE CAPSULE BY MOUTH EVERY EVENING ORALLY DISCONT INUED 04/11/2024 [id number] 3 CHARLEE FISH A 2022 90 [facility] TAMSULOSIN HCL 0.4MG CAP TAKE ONE CAPSULE BY MOUTH EVERY EVENING ORALLY DISCONT INUED 08/04/2023 [id number] 3 CHARLEE FISH A 2022 90 [facility] TURMERIC CAP/TAB TAKE 500 MG BY MOUTH TWICE A DAY ORALLY ACTIVE MATTY POWERS 2018 [facility] Allergies, Adverse Reactions, Alerts Combined list of allergies from Department of Defense and Veterans Affairs facilities. It does not include entries that were removed or entered in error. Substance Category Reaction Severity Reaction type Status Date Reported Comments Source VANCOMYCIN Propensity to adverse reactions to drug (finding) [place] active 8 [facility] Immunizations Combined list of available immunizations from the Department of Defense and Veterans Affairs facilities. Immunization Series Date Given Administered By Site Reaction Lot Number CVX Code Drug Floral Associate Status Comments Source ZOSTER RECOMBINANT 2 2019 187 complet ed [facility] INFLUENZA, INJECTABLE, QUADRIVALENT, PRESERVATIVE FREE 2019 150 complet ed [facility] ZOSTER RECOMBINANT 1 2019 187 complet ed [facility] INFLUENZA, HIGH-DOSE, QUADRIVALENT 2019 197 complet ed [facility] INFLUENZA, SEASONAL, INJECTABLE, PRESERVATIVE FREE 2017 140 complet ed [facility] INFLUENZA, INJECTABLE, QUADRIVALENT, PRESERVATIVE FREE 2017 150 complet ed [facility] INFLUENZA, INJECTABLE, QUADRIVALENT, PRESERVATIVE FREE 2015 150 complet ed [facility] TDAP 2015 115 complet ed [place] [facility] PNEUMOCOCCAL CONJUGATE PCV 13 2015 133 complet ed [facility] TD (ADULT), 5 LF TETANUS TOXOID, PRESERVATIVE FREE, ADSORBED 2015 113 complet ed [facility] INFLUENZA, INJECTABLE, QUADRIVALENT, PRESERVATIVE FREE 2013 150 complet ed [facility] PNEUMOCOCCAL POLYSACCHARID E PPV23 2010 33 complet ed [facility] INFLUENZA, UNSPECIFIED FORMULATION 2006 88 complet ed [facility] PNEUMOCOCCAL, UNSPECIFIED FORMULATION 2006 109 complet ed [facility] TD(ADULT) UNSPECIFIED FORMULATION 2006 NONE 139 complet ed [facility] TETANUS TOXOID, UNSPECIFIED FORMULATION 2006 NONE 112 complet ed [facility] Results Combined list of recent chemistry, hematology [...] Aug 21, 2022 03:48 PM Reporting Lab: [facility] [address] Performing Lab: [facility] [address] [facility] BASIC METABOLIC PANEL+MG CREATININE [MASS/VOLUM E] IN SERUM OR PLASMA 1.2 0.7 - 1.2 03/22 Specimen Type: PLASMA No comment entered. Ordering Provider: ME LEEROY FISH Report Released Date/Time: Aug 21, 2022 03:48 PM Reporting Lab: [facility] [address] Performing Lab: [facility] [address] [place] [facility] BASIC METABOLIC PANEL+MG UREA NITROGEN [MASS/VOLUM E] IN SERUM OR PLASMA 15 8 - 26 03/22 Specimen Type: PLASMA No comment entered. Ordering Provider: ME LEEROY FISH Report Released Date/Time: Aug 21, 2022 03:48 PM Reporting Lab: [facility] [address] Performing Lab: [facility] [address] [place] [facility] BASIC METABOLIC PANEL+MG GLUCOSE [MASS/VOLUM E] IN SERUM OR PLASMA 145 70 - 100 03/22 H Specimen Type: PLASMA No comment entered. Ordering Provider: ME LEEROY FISH Report Released Date/Time: Aug 21, 2022 03:48 PM Reporting Lab: [facility] [address] Performing Lab: [facility] [address] [place] [facility] BASIC METABOLIC PANEL+MG SODIUM [MOLES/VOLU ME] IN SERUM OR PLASMA 138 136 - 145 03/22 Specimen Type: PLASMA No comment entered. Ordering Provider: ME LEEROY FISH Report Released Date/Time: Aug 21, 2022 03:48 PM Reporting Lab: [facility] [address] Performing Lab: [facility] [address] [place] [facility] BASIC METABOLIC PANEL+MG POTASSIUM [MOLES/VOLU ME] IN SERUM OR PLASMA 4.5 3.5 - 5.1 03/22 Specimen Type: PLASMA No comment entered. Ordering Provider: ME LEEROY FISH Report Released Date/Time: Aug 21, 2022 03:48 PM Reporting Lab: [facility] [address] Performing Lab: [facility] [address] [place] [facility] BASIC METABOLIC PANEL+MG CHLORIDE [MOLES/VOLU ME] IN SERUM OR PLASMA 101 98 - 107 03/22 Specimen Type: PLASMA No comment entered. Ordering Provider: ME LEEROY FISH Report Released Date/Time: Aug 21, 2022 03:48 PM Reporting Lab: [facility] [address] Performing Lab: [facility] [address] [place] [facility] BASIC METABOLIC PANEL+MG CARBON DIOXIDE, TOTAL [MOLES/VOLU ME] IN SERUM OR PLASMA - 03/22 Specimen Type: PLASMA No comment entered. Ordering Provider: ME LEEROY FISH Report Released Date/Time: Aug 21, 2022 03:48 PM Reporting Lab: [facility] [address] Performing Lab: [facility] [address] [place] [facility] BASIC METABOLIC PANEL+MG CALCIUM [MASS/VOLUM E] IN SERUM OR PLASMA 10.0 8.4 - 10.2 03/22 Specimen Type: PLASMA No comment entered. Ordering Provider: ME LEEROY FISH Report Released Date/Time: Aug 21, 2022 03:48 PM Reporting Lab: [facility] [address] Performing Lab: [facility] [address] [place] [facility] BASIC METABOLIC PANEL+MG MAGNESIUM [MASS/VOLUM E] IN SERUM OR PLASMA 1.9 1.6 - 2.6 03/22 Specimen Type: PLASMA No comment entered. Ordering Provider: ME LEEROY FISH Report Released Date/Time: Aug 21, 2022 03:48 PM Reporting Lab: [facility] [address] Performing Lab: [facility] [address] [place] [facility] BASIC METABOLIC PANEL+MG ANION GAP IN SERUM OR PLASMA 10 5 - 15 03/22 Specimen Type: PLASMA No comment entered. Ordering Provider: ME LEEROY FISH Report Released Date/Time: Aug 21, 2022 03:48 PM Reporting Lab: [facility] [address] Performing Lab: [facility] [address] [place] [facility] BASIC METABOLIC PANEL+MG GLOMERULAR FILTRATION RATE/1.73 SQ M.PREDICTED [VOLUME RATE/AREA] IN SERUM, PLASMA OR BLOOD BY CREATININE- BASED FORMULA (CKD-EPI 2020) 63 60 03/22 Specimen Type: PLASMA No comment entered. Ordering Provider: ME LEEROY FISH Report Released Date/Time: Aug 21, 2022 03:48 PM Reporting Lab: [facility] [address] Performing Lab: [facility] [address] [place] [facility] HEMOGLOBI [...] December 22, 2021 03:46 PM Reporting Lab: [facility] [address] Performing Lab: [facility] [address] [place] [facility] BASIC METABOLIC PANEL+MG CREATININE [MASS/VOLUM E] IN SERUM OR PLASMA 0.9 0.7 - 1.2 08/18 Specimen Type: PLASMA No comment entered. Ordering Provider: ME LEEROY FISH Report Released Date/Time: December 22, 2021 03:46 PM Reporting Lab: [facility] [address] Performing Lab: [facility] [address] [place] [facility] BASIC METABOLIC PANEL+MG UREA NITROGEN [MASS/VOLUM E] IN SERUM OR PLASMA 12 8 - 26 08/18 Specimen Type: PLASMA No comment entered. Ordering Provider: ME LEEROY FISH Report Released Date/Time: December 22, 2021 03:46 PM Reporting Lab: [facility] [address] Performing Lab: [facility] [address] [place] [facility] BASIC METABOLIC PANEL+MG GLUCOSE [MASS/VOLUM E] IN SERUM OR PLASMA 184 70 - 100 08/18 H Specimen Type: PLASMA No comment entered. Ordering Provider: ME LEEROY FISH Report Released Date/Time: December 22, 2021 03:46 PM Reporting Lab: [facility] [address] Performing Lab: [facility] [address] [place] [facility] BASIC METABOLIC PANEL+MG SODIUM [MOLES/VOLU ME] IN SERUM OR PLASMA 137 136 - 145 08/18 Specimen Type: PLASMA No comment entered. Ordering Provider: ME LEEROY FISH Report Released Date/Time: December 22, 2021 03:46 PM Reporting Lab: [facility] [address] Performing Lab: [facility] [address] [place] [facility] BASIC METABOLIC PANEL+MG POTASSIUM [MOLES/VOLU ME] IN SERUM OR PLASMA 3.9 3.5 - 5.1 08/18 Specimen Type: PLASMA No comment entered. Ordering Provider: ME LEEROY FISH Report Released Date/Time: December 22, 2021 03:46 PM Reporting Lab: [facility] [address] Performing Lab: [facility] [address] [place] [facility] BASIC METABOLIC PANEL+MG CHLORIDE [MOLES/VOLU ME] IN SERUM OR PLASMA 102 98 - 107 08/18 Specimen Type: PLASMA No comment entered. Ordering Provider: ME LEEROY FISH Report Released Date/Time: December 22, 2021 03:46 PM Reporting Lab: [facility] [address] Performing Lab: [facility] [address] [place] [facility] BASIC METABOLIC PANEL+MG CARBON DIOXIDE, TOTAL [MOLES/VOLU ME] IN SERUM OR PLASMA 26 22 - 29 08/18 Specimen Type: PLASMA No comment entered. Ordering Provider: ME LEEROY FISH Report Released Date/Time: December 22, 2021 03:46 PM Reporting Lab: [facility] [address] Performing Lab: [facility] [address] [place] [facility] BASIC METABOLIC PANEL+MG CALCIUM [MASS/VOLUM E] IN SERUM OR PLASMA 9.4 8.4 - 10.2 08/18 Specimen Type: PLASMA No comment entered. Ordering Provider: ME LEEROY FISH Report Released Date/Time: December 22, 2021 03:46 PM Reporting Lab: [facility] [address] Performing Lab: [facility] [address] [place] [facility] BASIC METABOLIC PANEL+MG MAGNESIUM [MASS/VOLUM E] IN SERUM OR PLASMA 1.6 1.6 - 2.6 08/18 Specimen Type: PLASMA No comment entered. Ordering Provider: ME LEEROY FISH Report Released Date/Time: December 22, 2021 03:46 PM Reporting Lab: [facility] [address] Performing Lab: [facility] [address] [place] [facility] BASIC METABOLIC PANEL+MG ANION GAP IN SERUM OR PLASMA 9 5 - 15 08/18 Specimen Type: PLASMA No comment entered. Ordering Provider: ME LEEROY FISH Report Released Date/Time: December 22, 2021 03:46 PM Reporting Lab: [facility] [address] Performing Lab: [facility] [address] [place] [facility] BASIC METABOLIC PANEL+MG GLOMERULAR FILTRATION RATE/1.73 SQ M.PREDICTED [VOLUME RATE/AREA] IN SERUM, PLASMA OR BLOOD BY CREATININE- BASED FORMULA (CKD-EPI) 89 60 08/18 Specimen Type: PLASMA No comment entered. Ordering Provider: ME LEEROY FISH Report Released Date/Time: December 22, 2021 03:46 PM Reporting Lab: [facility] [address] Performing Lab: [facility] [address] [place] [facility] HEMOGLOBI N A1C HEMOGLOBIN A1C/HEMOGLO BIN.TOTAL IN BLOOD 8.2 4.0 - 6.0 12/22 H Specimen Type: BLOOD No comment entered. Ordering Provider: ME LEEROY FISH Report Released Date/Time: Aug 03, 2021 01:53 PM Reporting Lab: [facility] [address] Performing Lab: [facility] [address] [place] [facility] BASIC METABOLIC PANEL+MG CREATININE [MASS/VOLUM E] IN SERUM OR PLASMA 1.1 0.7 - 1.2 12/22 Specimen Type: PLASMA No comment entered. Ordering Provider: ME LEEROY FISH Report Released Date/Time: Aug 03, 2021 01:53 PM Reporting Lab: [facility] [address] Performing Lab: [facility] [address] [place] [facility] BASIC METABOLIC PANEL+MG UREA NITROGEN [MASS/VOLUM E] IN SERUM OR PLASMA 15 8 - 26 12/22 Specimen Type: PLASMA No comment entered. Ordering Provider: ME LEEROY FISH Report Released Date/Time: Aug 03, 2021 01:53 PM Reporting Lab: [facility] [address] Performing Lab: [facility] [address] [place] [facility] BASIC METABOLIC PANEL+MG GLUCOSE [MASS/VOLUM E] IN SERUM OR PLASMA 174 74 - 100 12/22 H Specimen Type: PLASMA No comment entered. Ordering Provider: ME LEEROY FISH Report Released Date/Time: Aug 03, 2021 01:53 PM Reporting Lab: [facility] [address] Performing Lab: [facility] [address] [place] [facility] BASIC METABOLIC PANEL+MG SODIUM [MOLES/VOLU ME] IN SERUM OR PLASMA 141 136 - 145 12/22 Specimen Type: PLASMA No comment entered. Ordering Provider: ME LEEROY FISH Report Released Date/Time: Aug 03, 2021 01:53 PM Reporting Lab: [facility] [address] Performing Lab: [facility] [address] [place] [facility] BASIC METABOLIC PANEL+MG POTASSIUM [MOLES/VOLU ME] IN SERUM OR PLASMA 4.2 3.5 - 5.1 12/22 Specimen Type: PLASMA No comment entered. Ordering Provider: ME LEEROY FISH Report Released Date/Time: Aug 03, 2021 01:53 PM Reporting Lab: [facility] [address] Performing Lab: [facility] [address] [place] [facility] BASIC METABOLIC PANEL+MG CHLORIDE [MOLES/VOLU ME] IN SERUM OR PLASMA 101 98 - 107 12/22 Specimen Type: PLASMA No comment entered. Ordering Provider: ME LEEROY FISH Report Released Date/Time: Aug 03, 2021 01:53 PM Reporting Lab: [facility] [address] Performing Lab: [facility] [address] [place] [facility] BASIC METABOLIC PANEL+MG CARBON DIOXIDE, TOTAL [MOLES/VOLU ME] IN SERUM OR PLASMA 30 22 - 29 12/22 H Specimen Type: PLASMA No comment entered. Ordering Provider: ME LEEROY FISH Report Released Date/Time: Aug 03, 2021 01:53 PM Reporting Lab: [facility] [address] Performing Lab: [facility] [address] [place] [facility] BASIC METABOLIC PANEL+MG CALCIUM [MASS/VOLUM E] IN SERUM OR PLASMA 10.1 8.4 - 10.2 12/22 Specimen Type: PLASMA No comment entered. Ordering Provider: ME LEEROY FISH Report Released Date/Time: Aug 03, 2021 01:53 PM Reporting Lab: [facility] [address] Performing Lab: [facility] [address] [place] [facility] BASIC METABOLIC PANEL+MG MAGNESIUM [MASS/VOLUM E] IN SERUM OR PLASMA 1.8 1.6 - 2.6 12/22 Specimen Type: PLASMA No comment entered. Ordering Provider: ME LEEROY FISH Report Released Date/Time: Aug 03, 2021 01:53 PM Reporting Lab: [facility] [address] Performing Lab: [facility] [address] [place] [facility] BASIC METABOLIC PANEL+MG ANION GAP IN SERUM OR PLASMA 10 5 - 15 12/22 Specimen Type: PLASMA No comment entered. Ordering Provider: ME LEEROY FISH Report Released Date/Time: Aug 03, 2021 01:53 PM Reporting Lab: [facility] [address] Performing Lab: [facility] [address] [place] [facility] BASIC METABOLIC PANEL+MG CREAT EGFR(CKD-EP I) 70 60 12/22 Specimen Type: PLASMA No comment entered. Ordering Provider: ME LEEROY FISH Report Released Date/Time: Aug 03, 2021 01:53 PM Reporting Lab: [facility] [address] Performing Lab: [facility] [address] [place] [facility] Vital Signs Combined list of inpatient and outpatient Vital Signs from Department of Defense and Veterans Affairs, ranging from 12 months to all on record, depending upon the facility. Vital Sign Value Date Comments Source Encounters Combined list of: 1) 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 2) Encounters from the Department of Defense facilities going back up to 280 months. Location Location Details Encounter Type Encounter Number Reason For Visit Attending Provider ADM Date DC Date Status Disposition Source [place] [facility] Outpatient Encounter [id number] 05/23 [facility] [place] [facility] Outpatient Encounter [id number] 05/25 [facility] [place] [facility] Outpatient Encounter [id number] 05/27 [facility] [place] [facility] Outpatient Encounter [id number] 05/30 [facility] [place] [facility] Outpatient Encounter [id number] 06/06 [facility] [place] [facility] Outpatient Encounter [id number] [facility] [place] [facility] Outpatient Encounter [id number] 06/16 [facility] [place] [facility] Outpatient Encounter [id number] SA RA Ana RODRIGUEZ 06/18 [facility] [place] [facility] Outpatient Encounter [id number] Kimberly GRIFFIN 12/13 /2022 [facility] [place] [facility] HC PRO PHONE CALL 11-20 MIN [id number] Diagnos is: ICD-10- CM E11.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
NAIDL,KARI 07/14 [place] [facility] [place] [facility] Outpatient Encounter [id number] SATINDER SMITH W 07/21 [place] [facility] [place] [facility] OFF[place] O/P EST MOD 30-39 MIN [id number] Diagnos is: ICD-10- CM E11.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
Rhiannon FISH 08/18 [place] [facility] [place] [facility] Outpatient Encounter [id number] 08/21 [place] [facility] [place] [facility] HC PRO PHONE CALL 11-20 MIN [id number] Diagnos is: ICD-10- CM E11.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
NAIDL,KARI 08/29 [place] [facility] [place] [facility] PRO PHONE CALL 11-20 MIN [phone] Diagnos is: ICD-10- CM E11.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
NAIDL,KARI 09/29 [place] [facility] [place] [facility] PRO PHONE CALL 21-30 MIN [id number] Diagnos is: ICD-10- CM E11.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
NAIDL,KARI 11/07 [place] [facility] [place] [facility] PRO PHONE CALL 11-20 MIN [id number] Diagnos is: ICD-10- CM E11.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
NAIDL,KARI 12/07 [facility] Out[facility] Encounter [id number] Diagnos is: ICD-10- CM Z77.29 Contact with and exposur e to other [facility]<br/ > JEANINEJESSICA 12/27 [facility] Outpatient Encounter [id number] Diagnos is: ICD-10- CM Z77.29 Contact with and exposur e to other [facility]<br/ > JEANINE,JESSICA HARDINE J 12/27 [facility] PRO PHONE CALL 11-20 MIN [id number] Diagnos is: ICD-10- CM E11.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
NAIDL,KARI 01/06 [facility] Outpatient Encounter [id number] 03/10 [facility] PRO PHONE CALL 11-20 MIN [id number] Diagnos is: ICD-10- CM E11.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
NAIDL,KARI 03/14 [facility] OFFICE O/P EST LOW 20-29 MIN [id number] Diagnos is: ICD-10- CM E11.621 Type 2 diabete s mellitu s with foot ulcer<b r/> Rhiannon FISH A 03/22 [facility] PRO PHONE CALL 21-30 MIN [phone] Diagnos is: ICD-10- CM E11.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
NAIDL,KARI 04/18 [facility] PRO PHONE CALL 21-30 MIN [phone] Diagnos is: ICD-10- CM E11.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
NAIDL,KARI 07/11 [facility] [place] [facility] MTMS BY PHARM ADDL 15 MIN [id number] Diagnos is: ICD-10- CM E11.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
NAIDL,KARI 08/29 [facility] [place] [facility] MTMS BY PHARM EST 15 MIN [id number] [phone] Diagnos is: ICD-10- CM E11.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
AWKER,SOLEDAD L 10/10 [facility] [place] [facility] Outpatient Encounter [id number] 10/16 [facility] [place] [facility] MTMS BY PHARM EST 15 MIN [id number] Diagnos is: ICD-10- CM E11.621 Type 2 diabete s mellitu s with foot ulcer<b r/> NAIDL,KARI 11/06 [facility] Social History Combined list of available smoking, tobacco, and other social history from Department of Defense and Veterans Affairs facilities. Social History Type Response Date Comment Sourc e Tobacco smoking status PRIS VA-TOBACCO QUIT 15 YRS OR MORE 08/18/2022 [facility] History of tobacco use TX-TOBACCO FORMER USER 08/18/2022 [facility] History of tobacco use VA-TOBACCO FORMER USER 05/03/2021 [facility] History of tobacco use VA-TOBACCO FORMER USER 04/21/2020 [facility] History of tobacco use FORMER TOBACCO US E >1Y <7Y 04/03/2018 [facility] History of tobacco use CURRENT TOBACCO USER 03/09/2007 [facility] Plan of Care List of future care activities from Department of Veterans Affairs facilities. Additional future care activities may be listed in the Assessment and Plan section. Date/Time Care Activity Care Activity Detail Facili ty 11/23/2023 AMBULATORY - NONE AMBULATORY - NONE [facility] Advance Directives List of completed, amended, or rescinded Advance Directives on record at Department of [facility] Affairs facilities. An actual copy of the Directive is not included. Date Advance Directive Provider Source 06/22/2021 ADVANCE DIRECTIVE DISCUSSION ALLYSON GRAF [facility] 06/22/2021 ADVANCE DIRECTIVE [facility] 03/09/2007 ADVANCE DIRECTIVE SOLEDAD WOLFF [facility]
== END 2023-11-20 13:14 | disposition home or self-care (01) ==
LOC: WOUND 13:13
PROVIDERS: Visit Provider Nurse Practitioner Family
DX: E11.621 Type 2 diabetes mellitus with foot ulcer (principal); L97.522 Non-pressure chronic ulcer of other part of left foot with fat layer exposed; L97.412 Non-pressure chronic ulcer of right heel and midfoot with fat layer exposed; Z79.4 Long term (current) use of insulin; Z79.84 Long term (current) use of oral hypoglycemic drugs
CPT/HCPCS: 11042; 97597

== ENCOUNTER 2023-11-27 14:15 | Outpatient (CLI) | payer MEDICARE, BC, SELFPAY | END 2023-11-27 14:16 | disposition home or self-care (01) | LOC: WOUND 14:15 | PROVIDERS: Visit Provider Nurse Practitioner Family | DX: E11.621 Type 2 diabetes mellitus with foot ulcer (principal); I87.2 Venous insufficiency (chronic) (peripheral); L97.412 Non-pressure chronic ulcer of right heel and midfoot with fat layer exposed; L97.522 Non-pressure chronic ulcer of other part of left foot with fat layer exposed; Z79.4 Long term (current) use of insulin; Z79.84 Long term (current) use of oral hypoglycemic drugs | CPT/HCPCS: 15271; 15275; 97602; Q4151 ==

== ENCOUNTER 2023-12-04 14:16 | Outpatient (CLI) | payer MEDICARE, BC, SELFPAY ==
--- OUTSIDE RECORDS SUMMARY | 2023-12-04 14:18 | XMS_ITS | Referral Summary ---
Author Name Unknown Organization [facility] Address [address] [place] [id number] Care Team Providers Care Combination Presser Name Role Phone Post, Dave Wakefield Primary Care Provider [phone] Medications Medication Sig Dispensed Refills Start Date [...] Comments Blood Pressure 148/85 06/26/2018 5:58 PM FLOCCULATOR OPERATOR Pulse 90 06/26/2018 5:58 PM FLOCCULATOR OPERATOR Temperature 36.6 ??C (97.8 ??F) 06/26/2018 5:58 PM CS T Respiratory Rate 18 06/26/2018 5:58 PM FLOCCULATOR OPERATOR Oxygen Saturation 95% 06/26/2018 7:00 PM FLOCCULATOR OPERATOR Inhaled Oxygen Concentration - - Weight 112 kg (247 lb) 06/26/2018 5:58 PM FLOCCULATOR OPERATOR Height 180.3 cm (5' 11) 06/26/2018 5:58 PM FLOCCULATOR OPERATOR Body Mass Index 34.45 06/26/2018 5:58 PM FLOCCULATOR OPERATOR Plan of Treatment Not on file Care Teams Combination Presser Relationship Specialty Start Date End Date Post, Dave Wakefield PCP - General Internal Medicine 06/26/18
--- OUTSIDE RECORDS SUMMARY | 2023-12-04 14:18 | XMS_ITS | Clinical Summary ---
Author Name Unknown Organization [facility] Address [address] [place] [id number] Care Team Providers Care Academic Manager Name Role Phone Post, Dave Wakefield Primary Care Provider [phone] Medications Medication Sig Dispensed Refills Start Date [...] Comments Blood Pressure 148/85 06/26/2018 5:58 PM MEDICAL INFORMATION SPECIALIST Pulse 90 06/26/2018 5:58 PM MEDICAL INFORMATION SPECIALIST Temperature 36.6 ??C (97.8 ??F) 06/26/2018 5:58 PM CS T Respiratory Rate 18 06/26/2018 5:58 PM MEDICAL INFORMATION SPECIALIST Oxygen Saturation 95% 06/26/2018 7:00 PM MEDICAL INFORMATION SPECIALIST Inhaled Oxygen Concentration - - Weight 112 kg (247 lb) 06/26/2018 5:58 PM MEDICAL INFORMATION SPECIALIST Height 180.3 cm (5' 11) 06/26/2018 5:58 PM MEDICAL INFORMATION SPECIALIST Body Mass Index 34.45 06/26/2018 5:58 PM MEDICAL INFORMATION SPECIALIST Plan of Treatment Not on file Care Teams Academic Manager Relationship Specialty Start Date End Date Post, Dave Wakefield PCP - General Internal Medicine 06/26/18
--- OUTSIDE RECORDS SUMMARY | 2023-12-04 14:19 | XMS_ITS | Continuity of Care Document ---
Author Name [facility] Organization [facility] Care Team Providers Care Inorganic Chemistry Teacher Name Role Phone [facility] Unavailable Unavailable Problems Combined list of problems from Department of Defense and Veterans Affairs facilities. It does not include entries that were removed or entered in error. Problem Status Onset Date Problem Type Date of Resolution Comments Source Exposure to potentially hazardous substance ([facility] [id number]) Active 10/05/19 24 Condition Oct 05, 2023 Entered By: VIJI VIVAS Comment: [facility] CHANG Documentation Initiative [facility] Depressive Disorder NOS * (ICD-9-CM 311./300.4) Active Condition [facility] Diabetes mellitus (SNOMED CT 65756381) Active Condition [facility] Diabetic neuropathy Active Condition [facility] Foot Pain (ICD-9-CM 719.47) Active Condition Aug 26 10 Entered By: MALINA WORLEY Comment: left 5th metatarsal fracture [facility] History of amputation of lesser toe Active Condition [facility] Hyperlipidemia (SNOMED CT 77703633) Active Condition [facility] Hyperuricemia Active Condition [facility] Osteopenia Active Condition [place] [facility] Other Iatrogenic Hypotension Active Condition [place] [facility] Personal History of Alcoholism (ICD-9-CM V11.3) Active Condition [facility] Tobacco user (SNOMED CT 059911440) Active Condition [facility] Diagnosis: ICD-10-CM E11.42 Type 2 diabetes mellitus with diabetic polyneuropathy Active Diagnosis [facility] Diana [facility] Diagnosis: ICD-10-CM E11.621 Type 2 diabetes mellitus with foot ulcer Active Diagnosis [facility] Diagnosis: ICD-10-CM Z77.29 Contact with and exposure to other hazardous substances Active Diagnosis [facility] Medications Combined list of outpatient medications from Department of Defense and Veterans Affairs facilities.Medications provided include 1) outpatient medications from the last 15 months, and 2) patient-reported medications. Medication Details Route Status Patient Instructions Prescription Expires Prescription Number Last Dispense Date Ordering Provider Order Date Order Qty Source ASCORBIC ACID 500MG TAB TAKE ONE TABLET BY MOUTH TWICE A DAY ORALLY ACTIVE FISH, CHARLEE A 2022 [facility] ASPIRIN 81MG TAB,EC TAKE ONE TABLET BY MOUTH EVERY DAY ORALLY ACTIVE JEFF CHOUDHARY ER A 2006 [facility] ATORVASTATI N CA 40MG TAB TAKE ONE TABLET BY MOUTH EVERY DAY FOR CHOLESTE ROL ORALLY ACTIVE 04/11/2024 [id number] FISH, CHARLEE A 2022 90 [facility] ATORVASTATI N CA 40MG TAB TAKE ONE TABLET BY MOUTH EVERY DAY FOR CHOLESTE ROL ORALLY DISCONT INUED 07/15/2023 [id number] DEAN BRITO 2022 90 [facility] CHOLECALCIF QUINTIN TAB TAKE 5000 UNITS BY MOUTH EVERY DAY ORALLY ACTIVE ABE CHARLEE Robinson 2022 [facility] COENZYME Q10 CAP/TAB TAKE 1 CAPSULE BY MOUTH EVERY DAY ORALLY ACTIVE ABE CHARLEE A 2022 [facility] CYANOCOBALA MIN 1000MCG TAB TAKE ONE TABLET BY MOUTH EVERY DAY ORALLY ACTIVE DEAN BRITO 2021 [facility] DICLOFENAC NA 1% GEL,TOP APPLY 4 GRAMS TOPICALL Y FOUR TIMES A DAY NEEDED FOR JOINT PAIN TOPICA LLY ACTIVE 03/22/2024 [id number] 3 CHARLEE FISH A 2022 100 [facility] FINASTERIDE 5MG TAB TAKE ONE TABLET BY MOUTH EVERY DAY FOR PROSTATE ORALLY ACTIVE 04/11/2024 [id number] 4 CHARLEE FISH A 2022 90 [facility] FINASTERIDE 5MG TAB TAKE ONE TABLET BY MOUTH EVERY DAY FOR PROSTATE ORALLY DISCONT INUED 07/13/2023 [id number] 3 CHARLEE FISH A 2021 90 [facility] FISH OIL 1000MG (500MG DHA/EPA) CAP,ORAL TAKE 1 CAPSULE BY MOUTH TWICE A DAY ORALLY ACTIVE JEFF CHOUDHARY ER A 2006 [facility] INSULIN,GLA RGINE,HUMAN 100 UNIT/ML INJ,SOLOSTA R,3ML INJECT 22 UNITS UNDER THE SKIN AT BEDTIME FOR DIABETES SUBCUT ANEOUS DISCONT INUED (EDIT) 09/30/2023 [id number] 3 NAIDL,TOD D 2022 5 [facility] INSULIN,GLA RGINE-YFGN 100UNIT/ML INJ PEN,3ML INJECT 24 UNITS UNDER THE SKIN EVERY EVENING FOR DIABETES SUBCUT ANEOUS ACTIVE 08/29/2024 [id number] 4 NAIDL,TOD D 2023 5 [facility] INSULIN,GLA RGINE-YFGN 100UNIT/ML INJ PEN,3ML INJECT 22 UNITS UNDER THE SKIN AT BEDTIME FOR DIABETES SUBCUT ANEOUS DISCONT INUED (EDIT) 01/07/2024 [id number] 3 NAIDL,TOD D 2022 5 [facility] INSULIN,GLA RGINE-YFGN 100UNIT/ML INJ PEN,3ML INJECT 20 UNITS UNDER THE SKIN AT BEDTIME FOR DIABETES SUBCUT ANEOUS DISCONT INUED (EDIT) 12/08/2023 [id number] 3 NAIDL,TOD D 2022 5 [facility] INSULIN,GLA RGINE-YFGN 100UNIT/ML INJ PEN,3ML INJECT 18 UNITS UNDER THE SKIN AT BEDTIME FOR DIABETES SUBCUT ANEOUS DISCONT INUED (EDIT) 11/08/2023 [id number] 3 NAIDL,TOD D 2022 5 [facility] LIDOCAINE 4% CREAM,TOP APPLY MODERATE AMOUNT TOPICALL Y THREE TIMES A DAY FOR PAIN TOPICA LLY ACTIVE 03/22/2024 [id number] 3 CHARLEE FISH A 2022 30 [facility] MAGNESIUM OXIDE 400MG TAB TAKE ONE TABLET BY MOUTH EVERY DAY ORALLY ACTIVE FISHCHARLEE A 2022 [facility] MENTHOL/MET HYL SALICYLATE (10-15%) LOW CONC. CREAM,TOP APPLY THIN LAYER TOPICALL Y THREE TIMES A DAY FOR MUSCLE PAIN TOPICA LLY ACTIVE 03/22/2024 [id number] 3 ABERADHACHARLEE A 2022 90 [facility] METFORMIN HCL 1000MG TAB TAKE ONE TABLET BY MOUTH TWICE A DAY FOR DIABETES ORALLY ACTIVE 04/11/2024 [id number] 4 CHARLEE FISH 2022 180 [facility] METFORMIN HCL 1000MG TAB TAKE ONE TABLET BY MOUTH TWICE A DAY FOR DIABETES ORALLY DISCONT INUED 07/15/2023 [id number] 3 NAIDL,TOD D 2022 180 [facility] OMEPRAZOLE 20MG CAP,EC TAKE ONE CAPSULE BY MOUTH EVERY DAY ON AN EMPTY STOMACH, AT LEAST 30 MINUTES PRIOR TO A MEAL FOR GERD ORALLY ACTIVE 03/22/2024 [id number] 3 CHARLEE FISH 2022 90 [facility] SEMAGLUTIDE 0.5MG/0.375 ML INJ,SOLN,PE N,1.5ML INJECT 0.5MG UNDER THE SKIN EVERY WEEK FOR DIABETES SUBCUT ANEOUS DISCONT INUED (EDIT) 07/15/2023 [id number] 3 NAIDL,TOD D 2022 1 [facility] SEMAGLUTIDE 1MG/0.75ML INJ,SOLN,PE N,3ML INJECT 1MG UNDER THE SKIN EVERY WEEK FOR DIABETES SUBCUT ANEOUS ACTIVE 11/07/2024 [id number] 4 NAIDL,TOD D 2023 1 [facility] SEMAGLUTIDE 1MG/0.75ML INJ,SOLN,PE N,3ML INJECT 1MG UNDER THE SKIN EVERY WEEK FOR DIABETES SUBCUT ANEOUS DISCONT INUED 11/08/2023 [id number] 4 NAIDL,TOD D 2022 1 [facility] TAMSULOSIN HCL 0.4MG CAP TAKE ONE CAPSULE BY MOUTH EVERY EVENING ORALLY ACTIVE 04/13/2024 [id number] 4 FISHCHARLEE Bowers 2022 30 [facility] TAMSULOSIN HCL 0.4MG CAP TAKE ONE CAPSULE BY MOUTH EVERY EVENING ORALLY DISCONT INUED 04/11/2024 [id number] 3 CHARLEE FISH A 2022 90 [facility] TAMSULOSIN HCL 0.4MG CAP TAKE ONE CAPSULE BY MOUTH EVERY EVENING ORALLY DISCONT INUED 08/04/2023 [id number] 3 CHARLEE FISH 2022 90 [facility] TURMERIC CAP/TAB TAKE 500 MG BY MOUTH TWICE A DAY ORALLY ACTIVE MATTY POWERS 2018 [facility] Allergies, Adverse Reactions, Alerts Combined list [...] Site Reaction Lot Number CVX Code Drug Nursing Secretary Status Comments Source ZOSTER RECOMBINANT 2 2019 187 complet ed [facility] INFLUENZA, INJECTABLE, QUADRIVALENT, PRESERVATIVE FREE 2019 150 complet ed [facility] ZOSTER RECOMBINANT 1 2019 187 complet ed [facility] INFLUENZA, HIGH-DOSE, QUADRIVALENT 2019 197 complet ed [facility] INFLUENZA, SEASONAL, INJECTABLE, PRESERVATIVE FREE 2017 140 complet ed [facility] INFLUENZA, INJECTABLE, QUADRIVALENT, PRESERVATIVE FREE 2017 150 complet ed [facility] INFLUENZA, INJECTABLE, QUADRIVALENT, PRESERVATIVE FREE 2015 150 complet ed [facility] TDAP 2015 115 complet ed [place] [facility] PNEUMOCOCCAL CONJUGATE PCV 13 2015 133 complet ed [facility] TD (ADULT), 5 LF TETANUS TOXOID, PRESERVATIVE FREE, ADSORBED 2015 113 complet ed [facility] INFLUENZA, INJECTABLE, QUADRIVALENT, PRESERVATIVE FREE 2013 150 complet ed [facility] PNEUMOCOCCAL POLYSACCHARID E PPV23 2010 33 complet [facility] INFLUENZA, UNSPECIFIED FORMULATION 2006 88 complet [facility] PNEUMOCOCCAL, UNSPECIFIED FORMULATION 2006 109 complet [facility] TD(ADULT) UNSPECIFIED FORMULATION 2006 NONE 139 complet [facility] TETANUS TOXOID, UNSPECIFIED FORMULATION 2006 NONE 112 complet [facility] Results Combined list of recent chemistry, hematology [...] Aug 21, 2022 03:48 PM Reporting Lab: [facility] [address] Performing Lab: [facility] [address] [facility] BASIC METABOLIC PANEL+MG CREATININE [MASS/VOLUM E] IN SERUM OR PLASMA 1.2 0.7 - 1.2 03/22 Specimen Type: PLASMA No comment entered. Ordering Provider: ME LEEROY FISH Report Released Date/Time: Aug 21, 2022 03:48 PM Reporting Lab: [facility] [address] Performing Lab: [facility] [address] [facility] BASIC METABOLIC PANEL+MG UREA NITROGEN [MASS/VOLUM E] IN SERUM OR PLASMA 15 8 - 26 03/22 Specimen Type: PLASMA No comment entered. Ordering Provider: ME LEEROY FISH Report Released Date/Time: Aug 21, 2022 03:48 PM Reporting Lab: [facility] [address] Performing Lab: [facility] [address] [place] [facility] BASIC METABOLIC PANEL+MG GLUCOSE [MASS/VOLUM E] IN SERUM OR PLASMA 145 70 - 100 03/22 H Specimen Type: PLASMA No comment entered. Ordering Provider: ME LEEROY FISH Report Released Date/Time: Aug 21, 2022 03:48 PM Reporting Lab: [facility] [address] Performing Lab: [facility] [address] [place] [facility] BASIC METABOLIC PANEL+MG SODIUM [MOLES/VOLU ME] IN SERUM OR PLASMA 138 136 - 145 03/22 Specimen Type: PLASMA No comment entered. Ordering Provider: ME LEEROY FISH Report Released Date/Time: Aug 21, 2022 03:48 PM Reporting Lab: [facility] [address] Performing Lab: [facility] [address] [place] [facility] BASIC METABOLIC PANEL+MG POTASSIUM [MOLES/VOLU ME] IN SERUM OR PLASMA 4.5 3.5 - 5.1 03/22 Specimen Type: PLASMA No comment entered. Ordering Provider: ME LEEROY FISH Report Released Date/Time: Aug 21, 2022 03:48 PM Reporting Lab: [facility] [address] Performing Lab: [facility] [address] [place] [facility] BASIC METABOLIC PANEL+MG CHLORIDE [MOLES/VOLU ME] IN SERUM OR PLASMA 101 98 - 107 03/22 Specimen Type: PLASMA No comment entered. Ordering Provider: ME LEEROY FISH Report Released Date/Time: Aug 21, 2022 03:48 PM Reporting Lab: [facility] [address] Performing Lab: [facility] [address] [place] [facility] BASIC METABOLIC PANEL+MG CARBON DIOXIDE, TOTAL [MOLES/VOLU ME] IN SERUM OR PLASMA 27 22 - 29 03/22 Specimen Type: PLASMA No comment entered. Ordering Provider: ME LEEROY FISH Report Released Date/Time: Aug 21, 2022 03:48 PM Reporting Lab: [facility] [address] Performing Lab: [facility] [address] [place] [facility] BASIC METABOLIC PANEL+MG CALCIUM [MASS/VOLUM E] IN SERUM OR PLASMA 10.0 8.4 - 10.2 03/22 Specimen Type: PLASMA No comment entered. Ordering Provider: ME LEEROY FISH Report Released Date/Time: Aug 21, 2022 03:48 PM Reporting Lab: [facility] [address] Performing Lab: [facility] [address] [place] [facility] BASIC METABOLIC PANEL+MG MAGNESIUM [MASS/VOLUM E] IN SERUM OR PLASMA 1.9 1.6 - 2.6 03/22 Specimen Type: PLASMA No comment entered. Ordering Provider: ME LEEROY FISH Report Released Date/Time: Aug 21, 2022 03:48 PM Reporting Lab: [facility] [address] Performing Lab: [facility] [address] [place] [facility] BASIC METABOLIC PANEL+MG ANION GAP IN SERUM OR PLASMA 10 5 - 15 03/22 Specimen Type: PLASMA No comment entered. Ordering Provider: ME LEEROY FISH Report Released Date/Time: Aug 21, 2022 03:48 PM Reporting Lab: [facility] [address] Performing Lab: [facility] [address] [place] [facility] BASIC METABOLIC PANEL+MG GLOMERULAR FILTRATION RATE/1.73 SQ M.PREDICTED [VOLUME RATE/AREA] IN SERUM, PLASMA OR BLOOD BY CREATININE- BASED FORMULA (CKD-EPI 2020) 63 60 03/22 Specimen Type: PLASMA No comment entered. Ordering Provider: ME LEEROY FISH Report Released Date/Time: Aug 21, 2022 03:48 PM Reporting Lab: [facility] [address] Performing Lab: [facility] [address] [place] [facility] HEMOGLOBI N A1C HEMOGLOBIN A1C/HEMOGLO BIN.TOTAL IN [...] December 22, 2021 03:46 PM Reporting Lab: [facility] [address] Performing Lab: [facility] [address] [place] [facility] BASIC METABOLIC PANEL+MG CREATININE [MASS/VOLUM E] IN SERUM OR PLASMA 0.9 0.7 - 1.2 08/18 Specimen Type: PLASMA No comment entered. Ordering Provider: ME LEEROY FISH Report Released Date/Time: December 22, 2021 03:46 PM Reporting Lab: [facility] [address] Performing Lab: [facility] [address] [place] [facility] BASIC METABOLIC PANEL+MG UREA NITROGEN [MASS/VOLUM E] IN SERUM OR PLASMA 12 8 - 26 08/18 Specimen Type: PLASMA No comment entered. Ordering Provider: ME LEEROY FISH Report Released Date/Time: December 22, 2021 03:46 PM Reporting Lab: [facility] [address] Performing Lab: [facility] [address] [place] [facility] BASIC METABOLIC PANEL+MG GLUCOSE [MASS/VOLUM E] IN SERUM OR PLASMA 184 70 - 100 08/18 H Specimen Type: PLASMA No comment entered. Ordering Provider: ME LEEROY FISH Report Released Date/Time: December 22, 2021 03:46 PM Reporting Lab: [facility] [address] Performing Lab: [facility] [address] [place] [facility] BASIC METABOLIC PANEL+MG SODIUM [MOLES/VOLU ME] IN SERUM OR PLASMA 137 136 - 145 08/18 Specimen Type: PLASMA No comment entered. Ordering Provider: ME LEEROY FISH Report Released Date/Time: December 22, 2021 03:46 PM Reporting Lab: [facility] [address] Performing Lab: [facility] [address] [place] [facility] BASIC METABOLIC PANEL+MG POTASSIUM [MOLES/VOLU ME] IN SERUM OR PLASMA 3.9 3.5 - 5.1 08/18 Specimen Type: PLASMA No comment entered. Ordering Provider: ME LEEROY FISH Report Released Date/Time: December 22, 2021 03:46 PM Reporting Lab: [facility] [address] Performing Lab: [facility] [address] [place] [facility] BASIC METABOLIC PANEL+MG CHLORIDE [MOLES/VOLU ME] IN SERUM OR PLASMA 102 98 - 107 08/18 Specimen Type: PLASMA No comment entered. Ordering Provider: ME LEEROY FISH Report Released Date/Time: December 22, 2021 03:46 PM Reporting Lab: [facility] [address] Performing Lab: [facility] [address] [place] [facility] BASIC METABOLIC PANEL+MG CARBON DIOXIDE, TOTAL [MOLES/VOLU ME] IN SERUM OR PLASMA 26 22 - 29 08/18 Specimen Type: PLASMA No comment entered. Ordering Provider: ME LEEROY FISH Report Released Date/Time: December 22, 2021 03:46 PM Reporting Lab: [facility] [address] Performing Lab: [facility] [address] [place] [facility] BASIC METABOLIC PANEL+MG CALCIUM [MASS/VOLUM E] IN SERUM OR PLASMA 9.4 8.4 - 10.2 08/18 Specimen Type: PLASMA No comment entered. Ordering Provider: ME LEEROY FISH Report Released Date/Time: December 22, 2021 03:46 PM Reporting Lab: [facility] [address] Performing Lab: [facility] [address] [place] [facility] BASIC METABOLIC PANEL+MG MAGNESIUM [MASS/VOLUM E] IN SERUM OR PLASMA 1.6 1.6 - 2.6 08/18 Specimen Type: PLASMA No comment entered. Ordering Provider: ME LEEROY FISH Report Released Date/Time: December 22, 2021 03:46 PM Reporting Lab: [facility] [address] Performing Lab: [facility] [address] [place] [facility] BASIC METABOLIC PANEL+MG ANION GAP IN SERUM OR PLASMA 9 5 - 15 08/18 Specimen Type: PLASMA No comment entered. Ordering Provider: ME LEEROY FISH Report Released Date/Time: December 22, 2021 03:46 PM Reporting Lab: [facility] [address] Performing Lab: [facility] [address] [place] [facility] BASIC METABOLIC PANEL+MG GLOMERULAR FILTRATION RATE/1.73 SQ M.PREDICTED [VOLUME RATE/AREA] IN SERUM, PLASMA OR BLOOD BY CREATININE- BASED FORMULA (CKD-EPI) 89 60 08/18 Specimen Type: PLASMA No comment entered. Ordering Provider: ME LEEROY FISH Report Released Date/Time: December 22, 2021 03:46 PM Reporting Lab: [facility] [address] Performing Lab: [facility] [address] [place] [facility] HEMOGLOBI N A1C HEMOGLOBIN A1C/HEMOGLO BIN.TOTAL IN BLOOD 8.2 4.0 - 6.0 12/22 H Specimen Type: BLOOD No comment entered. Ordering Provider: ME LEERYO FISH Report Released Date/Time: Aug 03, 2021 01:53 PM Reporting Lab: [facility] [address] Performing Lab: [facility] [address] [place] [facility] BASIC METABOLIC PANEL+MG CREATININE [MASS/VOLUM E] IN SERUM OR PLASMA 1.1 0.7 - 1.2 12/22 Specimen Type: PLASMA No comment entered. Ordering Provider: ME LEEROY FISH Report Released Date/Time: Aug 03, 2021 01:53 PM Reporting Lab: [facility] [address] Performing Lab: [facility] [address] [place] [facility] BASIC METABOLIC PANEL+MG UREA NITROGEN [MASS/VOLUM E] IN SERUM OR PLASMA 15 8 - 26 12/22 Specimen Type: PLASMA No comment entered. Ordering Provider: ME LEEROY FISH Report Released Date/Time: Aug 03, 2021 01:53 PM Reporting Lab: [facility] [address] Performing Lab: [facility] [address] [place] [facility] BASIC METABOLIC PANEL+MG GLUCOSE [MASS/VOLUM E] IN SERUM OR PLASMA 174 74 - 100 12/22 H Specimen Type: PLASMA No comment entered. Ordering Provider: ME LEREOY FISH Report Released Date/Time: Aug 03, 2021 01:53 PM Reporting Lab: [facility] [address] Performing Lab: [facility] [address] [place] [facility] BASIC METABOLIC PANEL+MG SODIUM [MOLES/VOLU ME] IN SERUM OR PLASMA 141 136 - 145 12/22 Specimen Type: PLASMA No comment entered. Ordering Provider: ME LEEROY FISH Report Released Date/Time: Aug 03, 2021 01:53 PM Reporting Lab: [facility] [address] Performing Lab: [facility] [address] [place] [facility] BASIC METABOLIC PANEL+MG POTASSIUM [MOLES/VOLU ME] IN SERUM OR PLASMA 4.2 3.5 - 5.1 12/22 Specimen Type: PLASMA No comment entered. Ordering Provider: ME LEEROY FISH Report Released Date/Time: Aug 03, 2021 01:53 PM Reporting Lab: [facility] [address] Performing Lab: [facility] [address] [place] [facility] BASIC METABOLIC PANEL+MG CHLORIDE [MOLES/VOLU ME] IN SERUM OR PLASMA 101 98 - 107 12/22 Specimen Type: PLASMA No comment entered. Ordering Provider: ME LEEROY FISH Report Released Date/Time: Aug 03, 2021 01:53 PM Reporting Lab: [facility] [address] Performing Lab: [facility] [address] [place] [facility] BASIC METABOLIC PANEL+MG CARBON DIOXIDE, TOTAL [MOLES/VOLU ME] IN SERUM OR PLASMA 30 22 - 29 12/22 H Specimen Type: PLASMA No comment entered. Ordering Provider: ME LEEROY FISH Report Released Date/Time: Aug 03, 2021 01:53 PM Reporting Lab: [facility] [address] Performing Lab: [facility] [address] [place] [facility] BASIC METABOLIC PANEL+MG CALCIUM [MASS/VOLUM E] IN SERUM OR PLASMA 10.1 8.4 - 10.2 12/22 Specimen Type: PLASMA No comment entered. Ordering Provider: ME LEEROY FISH Report Released Date/Time: Aug 03, 2021 01:53 PM Reporting Lab: [facility] [address] Performing Lab: [facility] [address] [place] [facility] BASIC METABOLIC PANEL+MG MAGNESIUM [MASS/VOLUM E] IN SERUM OR PLASMA 1.8 1.6 - 2.6 12/22 Specimen Type: PLASMA No comment entered. Ordering Provider: ME LEEROY FISH Report Released Date/Time: Aug 03, 2021 01:53 PM Reporting Lab: [facility] [address] Performing Lab: [facility] [address] [place] [facility] BASIC METABOLIC PANEL+MG ANION GAP IN SERUM OR PLASMA 10 5 - 15 12/22 Specimen Type: PLASMA No comment entered. Ordering Provider: ME LEEROY FISH Report Released Date/Time: Aug 03, 2021 01:53 PM Reporting Lab: [facility] [address] Performing Lab: [facility] [address] [place] [facility] BASIC METABOLIC PANEL+MG CREAT EGFR(CKD-EP I) 70 60 12/22 Specimen Type: PLASMA No comment entered. Ordering Provider: ME LEEROY FISH Report Released Date/Time: Aug 03, 2021 01:53 PM Reporting Lab: [facility] [address] Performing Lab: [facility] [address] [facility] [address] [place] [facility] Vital Signs Combined list of inpatient and [...] ADM Date DC Date Status [facility] Outpatient Encounter [id number] 06/06 [facility] [place] [facility] Outpatient Encounter [id number] 06/14 [facility] [place] [facility] Outpatient Encounter [id number] 06/16 [facility] [place] [facility] Outpatient Encounter [id number] SA RA Ana RODRIGUEZ 06/18 [facility] [place] [facility] Outpatient Encounter [id number] Kimberly GRIFFIN 07/12 [facility] PRO PHONE CALL 11-20 MIN [id number] Diagnos is: ICD-10- CM E11.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
NAIDLKARI 07/14 [facility] [place] [facility] Outpatient Encounter [id number] SATINDER SMITH TY W 07/21 [facility] IS [facility] OFFICE O/P EST MOD 30-39 MIN [id number] Diagnos is: ICD-10- CM E11.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
Rhiannon FISH 08/18 [facility] Outpatient Encounter [id number] 08[facility]21 [place] [facility] [place] [facility] PRO PHONE CALL 11-20 MIN [id number] Diagnos is: ICD-10- CM E11.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
NAIDL,KARI 08/29 [place] [facility] [place] [facility] HC PRO PHONE CALL 11-20 MIN [id number] Diagnos is: ICD-10- CM E11.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
NAIDL,KARI 09/29 [place] [facility] [place] [facility] PRO PHONE CALL 21-30 MIN [id number] Diagnos is: ICD-10- CM E11.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
NAIDL,KARI 11/07 [facility] PRO PHONE CALL 11-20 MIN [id number] Diagnos is: ICD-10- CM E11.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
NAIDL,KARI 12/07 [facility] Encounter [id number] Diagnos is: ICD-10- CM Z77.29 Contact with and exposur e to other [facility]<br/ > JEANINE,JESSICA ROBLES J 12/27 [facility] Outpatient Encounter [id number] Diagnos is: ICD-10- CM Z77.29 Contact with and exposur e to other hazardo [facility]stan [facility]<br/ > JEANINE,MATH ILDE J 12/27 [facility] IS [facility] PRO PHONE CALL 11-20 MIN [id number] Diagnos is: ICD-10- CM E11.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
NAIDL,KARI 01/06 [place] [facility] [place] [facility] Outpatient Encounter [id number] 03/10 [place] [facility] [place] [facility] HC PRO PHONE CALL 11-20 MIN [id number] Diagnos is: ICD-10- CM E11.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
NAIDL,KARI 03/14 [place] [facility] [place] [facility] OFFICE O/P EST LOW 20-29 MIN [id number] Diagnos is: ICD-10- CM E11.621 Type 2 diabete s mellitu s with foot ulcer<b r/> Rhiannon FISH A 03/22 [place] [facility] [place] [facility] PRO PHONE CALL 21-30 MIN [id number] Diagnos is: ICD-10- CM E11.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
NAIDL,KARI 04/18 [place] [facility] [place] [facility] PRO PHONE CALL 21-30 MIN [id number] Diagnos is: ICD-10- CM E11.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
NAIDL,KARI 07/11 [place] [facility] [place] [facility] MTMS BY PHARM ADDL 15 MIN [id number] Diagnos is: ICD-10- CM E11.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
NAIDL,KARI 08/29 [place] [facility] [place] [facility] MTMS BY PHARM EST 15 MIN [id number] Diagnos is: ICD-10- CM E11.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
SOLEDAD ELLIS 10/10 [place] [facility] [place] [facility] Outpatient Encounter [id number] 10[facility]16 [facility] MTMS BY PHARM EST 15 MIN [id number] Diagnos is: ICD-10- CM E11.621 Type 2 diabete s mellitu s with foot ulcer<b r/> NAIDL,KARI 11/06 [facility] MTMS BY PHARM ADDL 15 MIN [id number] Diagnos is: ICD-10- CM E11.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
NAIDL,KARI 11/22 [facility] Social History Combined list of available smoking, tobacco, and other social history from Department of Defense and Veterans Affairs facilities. Social History Type Response Date Comment Sourc e Tobacco smoking status NHIS DE-TOBACCO FORMER USER 08/18/2022 [facility] of [facility] MORE [facility]/2022 [facility] History of tobacco use DE-TOBACCO FORMER USER 05/03/2021 [facility] History of tobacco use DE-TOBACCO FORMER USER 04/21/2020 [facility] History of tobacco use FORMER TOBACCO US E >1Y <7Y 04/03/2018 [facility] History of tobacco use CURRENT TOBACCO USER 03/09/2007 [facility] Plan of Care List of future care activities from Department [facility] Affairs facilities. Additional future care activities may be listed in the Assessment and Plan section. Date/Time Care Activity Care Activity Detail Facili ty 01/18/2024 AMBULATORY - NONE AMBULATORY - NONE [facility] 11/30/2023 Consult Order [facility] SKILLED HOME CARE Cons Asphalt Worker's Choice [facility] Advance Directives List of completed, amended, or rescinded Advance Directives on record at Department of [facility] Affairs facilities. An actual copy of the Directive is not included. Date Advance Directive Provider Source 06/22/2021 ADVANCE DIRECTIVE DISCUSSION ALLYSON GRAF [facility] 06/22/2021 ADVANCE DIRECTIVE ALLYSON GRAF [facility] 03/09/2007 ADVANCE DIRECTIVE SOLEDAD WOLFF [facility]
--- OUTSIDE RECORDS SUMMARY | 2023-12-04 14:19 | XMS_ITS | Clinical Summary ---
Author Name Unknown Organization [facility] Address [place], [place] [address] Care Team Providers Care Puppet Maker Name Role Phone Post, Dave Velazquez MD Primary Care Provider [phone] Moshe Enciso MD Unavailable Arie Justin MD Unavailable [phone] [facility], Met Unavailable Murali Hoover DPM Unavailable [phone] Allergies No known active allergies Medications [...] 30 Each 05/31/2022 Active melatonin 3 mg tabletIndications:I nsomnia, unspecified type Take 1 Tablet (3 mg) by mouth at bedtime. 06/02/2022 Active tamsulosin (FLOMAX) 0.4 mg capsuleIndications: Urinary retention Take 1 Capsule (0.4 mg) by mouth once daily after a meal. 30 Capsule 06/03/2022 Active finasteride (PROSCAR) 5 mg tabletIndications:B [...] q 10 days (TAYLOR ROGERS) 11/05/2023 Active Active Problems Problem Noted Date Diagnosed [...] to Care Guide Pamella Brennan Phone number [phone]. Alcohol abuse 06/02/2010 03/26/2019 Overview: Sober since 2001. Great success with AA. 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 10/06/2023 Pyogenic arthritis of left shoulder region 06/17/2022 Encounters Date Type Department Care Team Description 11/28/2023 Telephone [facility] [place] [address] [place] [address] [place] [address] Post, Dave Velazquez MD Outside Order 11/03/2023 11:00 AM CDT Office Visit [facility] [place] [address] [place] [address] Post, Dave Velazquez MD Form (diabetic shoes) 11/03/2023 Travel 10/25/2023 1:00 PM CDT Orders Only [facility] [address] [place] [address] Lab, [facility] 10/25/2023 Travel 10/06/2023 1:30 PM [employer] Phone Office Visit [facility] [address] [place] [address] Post, Dave Velazquez MD 10/03/2023 Travel 09/05/2023 Orders Only [facility] Scanner 1 scan: (1-Ord) [facility], MRI RT FOOT HINDFOOT THROUGH MIDFOOT WITHOUT WITH CONTRAST, 09/05/2023 from Last 3 Months Immunizations Name Administration [...] 36.7 ??C (98 ??F) 06/29/2022 8:43 AM [facility] [employer] [facility] Respiratory Rate 18 06/29/2022 8:43 AM [facility] Oxygen Saturation 96% 07/21/2023 1:34 PM [employer] [employer] Inhaled Oxygen Concentration - - Weight 107 kg (236 lb) 11/03/2023 11:13 AM CDT w ith shoes Height 180.3 cm (5' 10.98) 07/21/2023 1:[address] Body Mass Index 32.93 07/21/2023 1:34 PM [employer] Plan of Treatment Health Maintenance Due Date [...] 07/16/2020, 04/21/2020 Medical Devices Implanted Type Area Qi Specialist Device Identifier Shelf Expiration Date Model / Serial / Lot [id number] - [id number] Implanted:Qty: 1 on 09/20/2021 at [facility] Right: Foot [employer] AR-8725-4 4H / / Description:COMPRESSION FT S CREWS CANNULATED, 2.5 MICRO 44MM LOAD 4 7 [id number] [facility]-1530p - [id number] Implanted:Qty: 1 on 09/20/2021 at [facility] Right: Foot [employer] 03/30/2025 AR-1530P- CP / / [id number] Description:FOREFOOT INTERNA L BRACE IMPLANT SYSTEM, PEEK Screw 4.32l58aa Bio Compositetenodesis Disp Oil Change Technician Pk - [id number] Implanted:Qty: 1 on 09/20/2021 at [facility] Right: Foot [employer] 08/30/2022 AR-1547CD S / / [id number] Ancr Sut 1.3mm Dx Fibertak Suturetape 2 Ndl 26.2mm 08/01 Cir - [id number] Implanted:Qty: 1 on 09/20/2021 at [facility] Right: Foot [employer] 06/29/2026 AR-8990ST / / [id number] Explanted Type Area Qi Specialist Device Identifier Shelf Expiration Date Model / Serial / Lot Wire Kirs .[id number] Smooth6/Pk 1645-10 Depuy/Héctor - [id number] Explanted:Qty: 1 on 09/20/2021 at [facility] Right: Foot [employer] [id number] / / Description:LOAD 4 8 [id number] [facility]8737-40 - [id number] Explanted:Qty: 1 on 09/20/2021 at [facility] Right: Foot [employer] AR-8737-40 / / Description:2.5 MICRO COMPRE SSION FT DRILLS AND DISPOSABLES, GUIDEWIRE W TROCAR TIP, THREADED, 0.34 IN (.86MM) LOAD 4 7 [id number] Procedures Procedure Name Priority Date/Time Associated Diagnosis [...] diabetes mellitus with diabetic neuropathy, unspecified whether snf insulin use (HC) SCAN-MRI INTERPRETATION 09/05/2023 12:00 AM [facility] [employer] CT CHEST PE STUDY Routine 05/10/2022 7:5 0 PM CDT OCCULT BLOOD IFOBT STOOL Routine 07/03/2013 7:00 PM [employer] [employer] Screening for colon cancer from Last 3 Months or Most Recently Relevant to Health Maintenance Results * (ABNORMAL) CBC WITH AUTO DIFFERENTIAL (10/25/2023 12:59 PM CDT) WHITE BLOOD COUNT 8.1 4.5 - 11.0 thou/cu mm 10/25/2023 1:36 PM CDT [facility] RED BLOOD COUNT 4.53 4.30 - 5.90 mil/cu mm 10/25/2023 1:36 PM CDT [facility] HEMOGLOBIN 12.4(L) 13.5 - 17.5 g/dL 10/25/2023 1:36 PM CDT [facility] HEMATOCRIT 38.9 37.0 - 53.0 % 10/25/2023 1:36 PM CDT [facility] MCV 86 80 - 100 fL 10/25/2023 1:36 PM CDT [facility] MCH 27.4 26.0 - 34.0 pg 10/25/2023 1:36 PM CDT [facility] MCHC 31.9(L) 32.0 - 36.0 g/dL 10/25/2023 1:36 PM CDT [facility] RDW 16.5(H) 11.5 - 15.5 % 10/25/2023 1:36 PM CDT [facility] PLATELET COUNT 175 140 - 440 thou/cu mm 10/25/2023 1:36 PM CDT [facility] MPV 10.3 6.5 - 11.0 fL 10/25/2023 1:36 PM CDT [facility] % NEUT 66.6 % 10/25/2023 1:36 PM CDT [facility] % LYMPH 21.6 % 10/25/2023 1:36 PM CDT [facility] % MONO 7.3 % 10/25/2023 1:36 PM CDT [facility] % EOS 4.3 % 10/25/2023 1:36 PM CDT [facility] % BASO 0.2 % 10/25/2023 1:36 PM CDT [facility] ABSOLUTE NEUTROPHILS 5.4 1.7 - 7.0 thou/cu mm 10/25/2023 1:36 PM CDT [facility] ABSOLUTE LYMPHOCYTES 1.7 0.9 - 2.9 thou/cu mm 10/25/2023 1:36 PM CDT [facility] ABSOLUTE MONOCYTES 0.6 <0.9 thou/cu mm 10/25/2023 1:36 PM CDT [facility] ABSOLUTE EOSINOPHILS 0.4 <0.5 thou/cu mm 10/25/2023 1:36 PM CDT [facility] ABSOLUTE BASOPHILS 0.0 <0.3 thou/cu mm 10/25/2023 1:36 PM T [facility] Blood BLOOD SPECIMEN / Unknown Venipuncture / Unknown 10/25/2023 12:59 PM CDT 10/25/2023 12:59 PM CDT Narrative [facility] - 10/25/2023 1:36 PM CDT This procedure was originally ordered at [facility]. This procedure was originally ordered at [facility]. Dave Garrett MD HEMATOLOGY Performing Organization Address [facility] Co de Phone Number [facility] [address] [place] [phone], * TSH WITH REFLEX (10/25/2023 12:59 PM CDT) TSH 1.43 0.27 - 4.20 uIU/mL 10/25/2023 10:26 PM CDT [facility] Blood BLOOD SPECIMEN / Unknown Venipuncture / Unknown 10/25/2023 12:59 PM CDT 10/25/2023 12:59 PM CDT Narrative [facility] - 10/25/2023 10:26 PM CDT In Adults, TSH values between 5.00 and 10.00 uIU/ml do not necessarily indicate the presence of Hypothyroidism. Correlation with clinical findings such as presence of goiter and/or Thyroperoxidase (TPO) Antibody may be helpful. For more information please refer to LOWELL 2004; 291: 228-238. Dave Garrett MD CHEMISTRY Performing Organization Address [facility] Co de Phone Number [facility] [address] [place] [address], * (ABNORMAL) Creatinine (10/25/2023 12:59 PM CDT) eGFR 71(L) >90 mL/min/1.7 3m2 10/25/2023 10:26 PM CDT [facility] Comment:As of 2021, eG FR is calculated by the CKD-EPI creatinine equation without race adjustment. ??eGFR can be influenced by muscle mass, exercise, and diet. ??The reported eGFR is an estimation only and is only applicable if the renal function is stable. CREATININE 1.08 0.70 - 1.20 mg/dL 10/25/2023 10:26 PM CDT [facility] Blood BLOOD SPECIMEN / Unknown Venipuncture / Unknown 10/25/2023 12:59 PM CDT 10/25/2023 12:59 PM CDT Dave Garrett MD CHEMISTRY Performing Organization Address [facility] de Phone Number [facility] [address] [place] [address], * (ABNORMAL) Hemoglobin A1c (monitoring) (10/25/2023 12:59 PM CDT) HEMOGLOBIN A1C MONITORING (POCT) 7.9(H) <=6.4 % 10/25/2023 3:27 PM CDT [facility] Blood BLOOD SPECIMEN / Unknown Venipuncture / Unknown 10/25/2023 12:59 PM CDT 10/25/2023 12:59 PM CDT Narrative [facility] - 10/25/2023 3:27 PM CDT ? (<=6.9%) [...] Dave Garrett MD CHEMISTRY Performing Organization Address [facility] Co de Phone Number [facility] [address] [place] [address], * SCAN-MRI INTERPRETATION (09/05/2023 12:00 AM [employer]) Anatomical Region Laterality Modality Other Scanner OTHER * CT Chest PE study TODAY (05/10/2022 [...] Occult Blood Stool (IFOBT) (07/03/2013 7:00 PM [employer] [employer]) STOOL BLOOD ,IFOBT Negative Negative, Invalid 07/04/2013 3:03 PM [employer] [facility] Stool specimen (specimen) STOOL SPECIMEN / Unknown Non-Blood / Unknown 07/03/2013 7:00 PM [employer] 07/04/2013 2:39 PM [employer] Dave Garrett MD LABORATORY [facility] [address] [place], [place] [phone] from Last 3 Months or Most Recently Relevant to Health Maintenance Advance Directives Documents on File Type Date Recorded Patient Retort Pre Cooker Expl anation Healthcare Directive 05/21/2021 3:50 PM [...] Code Status Discussion: Reviewed Preferences Care Teams Puppet Maker Relationship Specialty Start Date End Date Post, Dave Velazquez MD PCP - General 06/02/10 Moshe Enciso MD [address] [place] [address] Endocrinology Endocrinology 01/04/18 [place] [address] [facility] [address] [place], [place] [address] Surgery - Ophthalmology 03/22/18 [facility] [address] [place], [place] [phone] 06/08/21 Murali Hoover DPM [address] [place] [address] Surgery - Podiatric 01/03/23
--- OUTSIDE RECORDS SUMMARY | 2023-12-04 14:19 | XMS_ITS | Encounter Summary ---
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 Affairs Organization [facility] of Vetera ns Affairs Address [address] [place] [address] Support Name Relationship Address Phone D[place] [...] MEDIC ARE SUPPL EMENT Jul 31, 2018 [id number] [phone] [place] ALEX PATIENT [place] MED[place] SUPPLEMEN [place] MEDIC ARE SUPPL EMENT Jul 31, 2018 [id number] [phone] [place] [facility] ([place]NR) MEDICARE ADVANTAGE [facility] (WNR) Jul 31, 2017 [id number] [phone] [place] ALEX PATIENT [place] SUPPLEMEN SCOT MEDIC ARE SUPPL EMENT Jul 31, 2018 [id number] [phone] [place] A[place] SU[place] MEDIC ARE SUPPL EMENT Jul 31, 2018 [id number] [phone] [place] ALEX PATIENT MEDICARE (WNR) MEDICARE (M) PART A May 31, 2011 PART A [id number] [phone] RENKANE LUGO PATIENT MEDICARE (WNR) MEDICARE (M) PART B May 31, 2011 PART B [id number] [phone] KANE PÉREZ PATIENT Selected Encounter This section includes the information on record at [place] for the Encounter. Date/Time Encounter Type Encounter Description Reason Provider Source Nov 23, 2023 03:30 PM MTMS BY CELESTE PEARL 15 MIN TELEPHONE PRIMARY CARE ICD-10-CM E11.42 Type 2 diabetes mellitus with diabetic polyneuropathy [facility]I BR[facility]O [facility] Encounter Template Text not used by [place] Assessments - Encounter Diagnoses This section includes the primary and secondary diagnoses documented for the Encounter. Date/Time Primary/Secondary Diagnosis Diagnosis Name Provider Source Nov 23, 2023 03:30 PM PRIMARY Type 2 diabetes mellitus with diabetic polyneuropathy KARI BRITO [facility] Plan of Treatment: Future Appointments (+ 6 months) and Future Tests (+/- 45 days) The Plan of Treatment section includes future care activities for the patient from all [place] [facility]. This section includes future appointments and future orders which are active, pending or scheduled. Future Appointments This section includes appointments that were scheduled to occur 6 months from the date of the Encounter, up to a maximum of 20 appointments. The data comes from all [place] treatment [facility]. Appointment Date/Time Appointment Type Appointme nt Facility Name December 02, 2023 07:01 AM AMBULATORY - NONE [facility] Jan 18, 2024 04:00 PM AMBULATORY - NONE [facility] Active, Pending, and Scheduled Orders This section includes a listing of several types of active, pending, and scheduled orders, including clinic medications orders, diagnostic test orders, procedure orders and consult orders; where the start date of the order is 45 days before the date of the Encounter or 45 days after the date of theEncounter. The data comes from all [place] treatment [facility]. Test Date/Time Test Type Test Details Facility Name November 30, 2023 01:41 PM Consult Order [facility] SKILLED HOME CARE Cons Corporate Concierge's Choice [facility] Social History: Smoking Status (Most current) [...] [facility] Apr 21, 2020 09:00 AM IN-TOBACCO QUIT 15 YRS OR MORE [facility] [...] document. The data comes from all [facility]. Date Advance Directives Provider Source Jun 22, 2021 ADVANCE DIRECTIVE DISCUSSION ALLYSON GRAF [facility] Jun 22, 2021 ADVANCE DIRECTIVE ALLYSON GRAF [facility] Mar 09, 2007 ADVANCE DIRECTIVE SOLEDAD WOLFF [facility] Encounter Notes: All associated encounter notes This section contains the clinical notes associated to the Encounter. Date/Time Encounter Note(s) Provider Source Nov 23, 2023 10:35 AM PHARMACY NOTE: LOCAL TITLE: PHARMACOTHERAPY-CLINICAL PHARMACY NOTE STANDARD TITLE: PHARMACY NOTE DATE OF NOTE: NOV 23, 2023@10:35 ENTRY DATE: NOV 23, 2023@10:35:22 AUTHOR: KARI BRITO COSIGNER: URGENCY: STATUS: COMPLETED BACKGROUND: BETOMIGUELINA CHRISTIAN is a 78 YO MALE contacted by phone for medication management, mainly for DM. PMH is significant for T2DM with chronic foot infections, GERD, and HLD. SUBJECTIVE: In brief, at our last visit, we moved his semaglutide back to weekly administration, given higher SMBG values and weight on the q 10 day regimen. Feels readings have improved some with the change, but remain higher than the last time he was on weekly dosing. Continues to report mild nausea, which he manages by eating smaller and more frequent meals. Denies any recent lifestyle changes. He continues to follow closely locally given chronic foot wounds. Remains interested in a personal CGM--reviewed current criteria, which he would not meet at this time. 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 Recently restarted using his exercise bike daily-slowly increasing now. Would like to use his e-bike, but unfortunately is unable to currently. ROS: (-) hypoglycemia symptoms --> Denies. Usually has symptoms. We have reviewed the rule of 15s. (-) hyperglycemia symptoms SMBG Readings: AM 11/22 186/ 11/21 176/ 11/20 121/ 22 196/ 21 11/17 185/ /19 210/ /18 155/ /17 16 116/ /15 111/ /14 148/ /13 173/ /12 167/ ave: 162 ------Previous Readings-------- Early f/u ave: 198 Aug f/u ave: 121 Jul f/u ave: 157 Dec f/u ave: 139 [...] below goal. Recently reported SMBG values are up, but improving some since returning to weekly dosing on semaglutide. Current variability appears related to increased carbs, especially on some nights--encouraged increased efforts to focus high protein/low carb snacks instead. Reviewed VA criteria currently is being re- evaluated and we may be able to consider a CGM in the near future, but not today. PLAN: Medications: -Continue glargine at 24 units qday -fine to adjust by 2 units every 3 days, targeting fastings in the 100- 150 range. -Continue Semaglutide 1 mg q 7 days -Continue other meds, as above Monitoring: -Increase [...] satisfaction. Time spent: 21 minutes RTC: - 01/17 pharmD phone prefers to avoid [facility]-only has a cellphone /toby/ KARI BRITO PHARM D, BCPS Clinical Pharmacist Practitioner-[facility] Signed: 11/24/2023 07:52 KARI BRITO [facility]
--- OUTSIDE RECORDS SUMMARY | 2023-12-04 14:20 | XMS_ITS | Data Portability ---
Author Name Unknown Address [address] [place] [address] Phone [phone] Organization [facility] Address [address] [place] [address] Care Team Providers Care Line Maintenance Supervisor Name Role Phone POST, SEU Primary Care Provider [phone] Assessment Encounter Date Assessment Date Assessment LastModified [...] to efficacy (6+ months) and side effects [email or web address] Not available 06/16/2022 18:10:42 06/30/2022 06/30/2022 77M [...] of Hospitaliza tion for UTI. 2022 023 [facility], [address], [place], [address], 3 10:05:08 urinalysis, dipstick 2022 023 [facility], [address], [place], [address], 3 12:03:37 Referral None recorded. Procedures None recorded. Surgeries None recorded. Imaging None recorded. Medication Orders tamsulosin 0.4 mg capsule 2021 022 [email or web address] 2 [facility], [address] , [place], [address], 2 18:25:29 finasteride 5 mg tablet 2021 022 [email or web address] 2 [facility], [address], [place], [address], 2 18:25:29 Patient TargetsNo targets recorded. Patient Instructions Encounter Date Encounter Id Patient Instructions Last Modified By Organization Details Last Modified Time 11/04/2022 [id number] Pt has F/U appt with Dr Barrientos in [place] on 11/11/2022 @ 3:10pm to review UDS. Not available 10/19/2022 15:50:04 09/23/2022 [id number] Patient to call clinic with questions or concerns. Advised patient to increase water intake and to keep 4 week appointment for next catheter change. [email or web address] Not available 09/23/2022 13:22:30 08/03/2022 [id number] Will reach out t o [place] about patient [email or web address] Not available 08/03/2022 11:17:30 Reason for Referral None Reported. Results Created Date Observation Date Name Description Value Unit Range Abnormal Flag LastModifiedBy Organization Detail LastModifiedTime 11/05/1911/04/2022 URINE CULTU RE final report microb iology result s abnormal Not Available [facility] [address], [place], [address], 11/07/2022 10:05:08 11/05/19 23 11/04/2022 urina lysis , dipst ick Color-Status Straw Not Available [facility] [address], [place], [address], 11/04/2022 12:02:10 11/05/19 23 11/04/2022 urina lysis , dipst ick Clarity-Stat us Slight ly Cloudy Not Available [facility] [address], [place], [address], 11/04/2022 12:02:10 11/05/19 23 11/04/2022 urina lysis , dipst ick Glucose-Stat us 500 Not Available [facility] [address], [place], [address], 11/04/2022 12:02:10 11/05/19 23 11/04/2022 urina lysis , dipst ick Bilirubin-St atus Negati ve Not Available [facility] [address], [place], [address], 11/04/2022 12:02:10 11/05/19 23 11/04/2022 urina lysis , dipst ick Ketones-Stat us Negati ve Not Available [facility] [address], [place], [address], 11/04/2022 12:02:10 11/05/19 23 11/04/2022 urina lysis , dipst ick Sp [place]-Stat us 1.015 Not Available [facility] [address], [place], [address], 11/04/2022 12:02:10 11/05/19 23 11/04/2022 urina lysis , dipst ick pH-Status 6.5 Not Available [facility] [address], [place], [address], 11/04/2022 12:02:10 11/05/19 23 11/04/2022 urina lysis , dipst ick Protein-Stat us 5.0 Not Available [facility] [address], [place], [address], 11/04/2022 12:02:10 11/05/19 23 11/04/2022 urina lysis , dipst ick Urobilinogen -Status 0.2 Not Available [facility] [address], [place], [address], 11/04/2022 12:02:10 11/05/19 23 11/04/2022 urina lysis , dipst ick Nitrates-Sta tus positi ve Not Available [facility] [address], [place], [address], 11/04/2022 12:02:10 11/05/19 23 11/04/2022 urina lysis , dipst ick Blood-Status Large Not Available [facility] [address], [place], [address], 11/04/2022 12:02:10 11/05/19 23 11/04/2022 urina lysis , dipst ick Leuko-Status Large Not Available [facility] [address], [place], [address], 11/04/2022 12:02:10 11/05/19 23 11/04/2022 urina lysis , dipst ick Specimen Type Cathet erized Not Available [facility] [address], [place], [address], 11/04/2022 12:02:10 11/05/19 23 11/04/2022 urina lysis , dipst ick Performed by Jake ross Not Available [facility] [address], [place], [address], 11/04/2022 12:02:10 Result Notes None recorded. Problems Name Status Onset Date Resolution Date Notes Provider Name and Address Organization Details Recorded Time Retention of urine Active [address] [facility] 10/21/2022 13:15:43 Problem Notes None recorded. Procedures Surgical History Date Name Laterality Status Provider Name and Address Organization Details Recorded Time 3 Fill and Pull/Voiding Trial/TOV completed OLMAN Chappell [facility] 12/09/2022 11:59:45 3 Urodynamic Studies completed Deyanira song [facility] 11/04/2022 12:19:38 3 Terry Catheter Insertion completed Deyanira song [facility] 11/04/2022 12:21:21 3 Urethral Catheter Change completed Jenna Harris null, [facility] 10/21/2022 13:18:32 3 Urethral Catheter Change completed Nenita Flores null, [facility] 09/23/2022 13:21:12 3 Terry Catheter Insertion completed Roula Beltran null, [facility] 08/03/2022 11:16:51 3 Fill and Pull/Voiding Trial/TOV completed Roula Beltran null, [facility] 08/03/2022 11:16:41 2 Cystoscopy- male completed Kristopher Barrientos MD, PHD [address] [place] [address],[address], [place], [address], [facility] 06/30/2022 09:37:30 2 Urethral Catheter Change completed Carlos Mix null, [facility] 06/30/2022 09:49:15 2 Terry Catheter Insertion completed Еленаarminda Josue null, [facility] 06/16/2022 15:03:22 2 Fill and Pull/Voiding Trial/TOV completed Roula Tony PA-C [address] [place] [address], [address], [facility] 06/16/2022 18:06:50 Cataract Surgery completed Gideonarminda Josue [facility] 06/16/2022 12:30:25 Orthopedic Surgery completed Gideonarminda Josue [facility] 06/16/2022 12:30:33 Imaging Results None [...] Updated DateTime 06/16/2022 180.34 cm 30 kg/m2 09738.36 g Juanito song [facility] 06/16/2022 12:27:07 Date Recorded Body height Provider Name an d Address Organization Details Last Updated DateTime 06/30/2022 180.34 cm Carlos song [facility] 06/30/2022 09:27:04 Date Recorded Body height Provider Name an d Address Organization Details Last Updated DateTime 09/23/2022 180.34 cm Nenita ford [facility] 09/23/2022 13:17:39 Date Recorded Body height Body mass index (BMI) Body weight Provider Name and Address Organization Details Last Updated DateTime 11/11/2022 180.34 cm 30 kg/m2 01499.[address] [facility] 11/11/2022 16:25:51 Social History Question Answer Notes LastModified by Organizat ion Details LastModified Time Tobacco Smoking Status Former Smoker Juanito song [facility] 06/16/2022 12:29:38 What Is Your Level [...] Encounter Closed Date Diagnosis/Indication Diagnosis SNOMED-CT Code [id number] Roula Tony PA-C [facility] [address] [place] [address] 06/16/2022 11:30:09 06/20/2022 08:36:10 Retention of urine [id number] Benign pro static hyperplasia with outflow obstruction [id number] Kristopher bains MD, PHD [facility] [address] [place] [address] 06/30/2022 08:46:23 07/04/2022 11:29:58 Retention of urine 346888119 Benign pro static hyperplasia with outflow obstruction [id number] Roulaangi Beltran [facility] [address] [place] [address] 08/03/2022 10:27:16 08/05/2022 11:54:14 Retention of urine 003520116 [id number] Nenitaaranza Flores [facility] [address] [place] [address] 09/23/2022 10:30:04 09/26/2022 14:37:37 [id number] Kristopher bains MD, PHD [facility] [address] [place] [address] 11/04/2022 10:41:00 11/10/2022 13:37:32 Benign prostatic hyperplasia with outflow obstruction 806663195 Retention of urine 37301 4002 Microscopic hematuria 19 7454076 [id number] Jenna Steven [facility] [address] [place] [address] 10/21/2022 11:27:55 10/24/2022 11:49:09 Retention of urine 763823670 [id number] Kristopher bains MD, PHD [facility] [address] [address] 11/11/2022 16:25:28 11/17/2022 17:02:38 Retention of urine 217540762 Benign pro static hyperplasia with outflow obstruction [id number] Jenna Harris [facility] [address] [address] 12/09/2022 10:56:01 12/12/2022 15:10:14 Retention of urine 739813383 Health Concerns Section Related Observation LastModified by Organization Detai ls LastModified Time None Recorded Concern Status LastModified by Organization Details LastModified Time None Recorded Advance Directives Directive None Recorded Payers Encounter Date Sequence Insurance Name Policy Number Policy Molina Covered Member ID Molina Member ID Guarantor Name 12/09/2022 1 [place] [employer] Tom B Renaux [id number] Tom B Renaux 12/09/2022 2 [place] [id number] Tom B Renaux [id number] Tom B Renaux 11/11/2022 1 [place] [employer] Tom B Renaux [id number] Tom B Renaux 11/11/2022 2 [place] [id number] Tom B Renaux [id number] Tom B Renaux 11/04/2022 1 [place] [employer] Tom B Renaux [id number] Tom B Renaux 11/04/2022 2 [place] [id number] Tom B Renaux [id number] Tom B Renaux 10/21/2022 1 [place] [employer] Tom B Renaux [id number] Tom B Renaux 10/21/2022 2 [place] [id number] Tom B Renaux [id number] Tom B Renaux 09/23/2022 1 [place] [employer] Tom B Renaux [id number] Tom B Renaux 09/23/2022 2 [place] [id number] Tom B Renaux [id number] Tom B Renaux 08/03/2022 1 [place] [employer] Tom B Renaux [id number] Tom B Renaux 08/03/2022 2 [place] [id number] Tom B Renaux [id number] Tom B Renaux 06/30/2022 1 [place] [employer] Tom B Renaux [id number] Tom B Renaux 06/30/2022 2 [place] [id number] Tom B Renaux [id number] Tom B Renaux 06/16/2022 1 [place] [employer] Tom B Renaux [id number] Tom B Renaux 06/16/2022 2 [place] [id number] Tom B Renaux [id number] Tom B Renaux Notes Date Note Type Note Provider Name and Address Organization Details Recorded Time 06/16/2022 text/html HPI Notes: 77M w ith urinary retention. Here with . Recent hospitalization at [facility] from 04/30-05/30 for MSSA bacteremia with C-spine [...] Tobacco: EtOH: FHx: Roula Tony PA-C [address], [place], [address], [facility] 06/16/2022 18:10:53 06/30/2022 text/html HPI Notes: 77M w ith urinary retention. Here for cysto. Saw LILIBETH Nix. Recent hospitalization at [facility] from 04/30-05/30 for MSSA bacteremia with C-spine [...] EtOH: FHx: Kristopher Barrientos MD, PHD [address], [place], [address], [facility] 06/30/2022 14:06:37 09/23/2022 text/html [...] next catheter change. Nenita Sandramahamed song [facility] 09/23/2022 13:22:32 10/21/2022 text/html HPI Notes: Pt he re for catheter change Jenna Harris nohemi [facility] 10/21/2022 13:21:54 11/11/2022 text/html HPI Notes: 77M w ith urinary retention. Hospitalization at [facility] from 04/30-05/30 for MSSA bacteremia with C-spine [...] their care. Kristopher Barrientos MD, PHD [address], [place], [address], [facility] 11/11/2022 17:49:57 12/09/2022 text/html HPI Notes: Pt of Dr PALMER, here for TOV recommended at 11/11/22 visit OLMAN Chappell - [facility] 12/09/2022 12:43:22
== END 2023-12-04 14:17 | disposition home or self-care (01) ==
LOC: WOUND 14:16
PROVIDERS: Visit Provider Family Medicine
DX: E11.621 Type 2 diabetes mellitus with foot ulcer (principal); L97.512 Non-pressure chronic ulcer of other part of right foot with fat layer exposed; L97.522 Non-pressure chronic ulcer of other part of left foot with fat layer exposed; I87.2 Venous insufficiency (chronic) (peripheral); Z79.4 Long term (current) use of insulin; Z79.84 Long term (current) use of oral hypoglycemic drugs
CPT/HCPCS: 11042

== ENCOUNTER 2023-12-11 14:14 | Outpatient (CLI) | payer MEDICARE, BC, SELFPAY ==
--- OUTSIDE RECORDS SUMMARY | 2023-12-11 14:17 | XMS_ITS | Clinical Summary ---
Author Name Unknown Organization [facility] Address [address] [place] [address] Care Team Providers Care Glue Size Machine Operator Name Role Phone Post, Dave Wakefield Primary Care Provider [phone] Medications Medication Sig Dispensed Refills Start Date [...] Comments Blood Pressure 148/85 06/26/2018 5:58 PM EARLY CHILDHOOD EDUCATION WORKER Pulse 90 06/26/2018 5:58 PM EARLY CHILDHOOD EDUCATION WORKER Temperature 36.6 ??C (97.8 ??F) 06/26/2018 5:58 PM CS T Respiratory Rate 18 06/26/2018 5:58 PM EARLY CHILDHOOD EDUCATION WORKER Oxygen Saturation 95% 06/26/2018 7:00 PM EARLY CHILDHOOD EDUCATION WORKER Inhaled Oxygen Concentration - - Weight 112 kg (247 lb) 06/26/2018 5:58 PM EARLY CHILDHOOD EDUCATION WORKER Height 180.3 cm (5' 11) 06/26/2018 5:58 PM EARLY CHILDHOOD EDUCATION WORKER Body Mass Index 34.45 06/26/2018 5:58 PM EARLY CHILDHOOD EDUCATION WORKER Plan of Treatment Not on file Care Teams Glue Size Machine Operator Relationship Specialty Start Date End Date Post, Dave Wakefield PCP - General Internal Medicine 06/26/18
--- OUTSIDE RECORDS SUMMARY | 2023-12-11 14:17 | XMS_ITS | Referral Summary ---
Author Name Unknown Organization [facility] Address [address] [place] [address] Care Team Providers Care Locomotive Electrician Name Role Phone Post, Dave Wakefield Primary Care Provider [phone] Medications Medication Sig Dispensed Refills Start Date [...] Comments Blood Pressure 148/85 06/26/2018 5:58 PM HORSE GROOMER Pulse 90 06/26/2018 5:58 PM HORSE GROOMER Temperature 36.6 ??C (97.8 ??F) 06/26/2018 5:58 PM CS T Respiratory Rate 18 06/26/2018 5:58 PM HORSE GROOMER Oxygen Saturation 95% 06/26/2018 7:00 PM HORSE GROOMER Inhaled Oxygen Concentration - - Weight 112 kg (247 lb) 06/26/2018 5:58 PM HORSE GROOMER Height 180.3 cm (5' 11) 06/26/2018 5:58 PM HORSE GROOMER Body Mass Index 34.45 06/26/2018 5:58 PM HORSE GROOMER Plan of Treatment Not on file Care Teams Locomotive Electrician Relationship Specialty Start Date End Date Post, Dave Wakefield PCP - General Internal Medicine 06/26/18
--- OUTSIDE RECORDS SUMMARY | 2023-12-11 14:17 | XMS_ITS | Continuity of Care Document ---
Author Name [facility] Organization [facility] Care Team Providers Care Salt Washer Name Role Phone [facility] Unavailable Unavailable Problems Combined list of problems from Department of Defense and Veterans Affairs facilities. It does not include entries that were removed or entered in error. Problem Status Onset Date Problem Type Date of Resolution Comments Source Exposure to potentially hazardous substance ([facility] [id number]) Active 10/05/19 24 Condition Oct 05, 2023 Entered By: VIJI VIVAS Comment[facility] Documentation Initiative [facility] Depressive Disorder NOS * (ICD-9-CM 311./300.4) Active Condition [facility] Diabetes mellitus (SNOMED CT 91418420) Active Condition [facility] Diabetic neuropathy Active Condition [facility] Foot Pain (ICD-9-CM 719.47) Active Condition Aug 26 10 Entered By: MALINA WORLEY Comment: left 5th metatarsal fracture [facility] History of amputation of lesser toe Active Condition [facility] Hyperlipidemia (SNOMED [place] 81494113) Active Condition [facility] Hyperuricemia Active Condition [facility]) Osteopenia Active Condition [place] Other Iatrogenic Hypotension Active Condition [place] Personal History of Alcoholism (ICD-9-CM V11.3) Active Condition [facility] Tobacco user (SNOMED CT 242831414) Active Condition [facility] Diagnosis: ICD-10-CM E11.42 Type 2 diabetes mellitus with diabetic polyneuropathy Active Diagnosis [facility] Diana [facility] Diagnosis: ICD-10-CM E11.621 Type 2 diabetes mellitus with foot ulcer Active Diagnosis [facility] Diagnosis: ICD-10-CM Z77.29 Contact with and exposure to other hazardous substances Active Diagnosis [facility] Medications Combined list of outpatient medications [...] DAY ORALLY ACTIVE FISH, CHARLEE A 2022 [facility] ASPIRIN 81MG TAB,EC TAKE ONE TABLET BY MOUTH EVERY DAY ORALLY ACTIVE JEFF CHOUDHARY ER A 2006 [facility] ATORVASTATI N [place] 40MG TAB TAKE ONE TABLET BY MOUTH EVERY DAY FOR CHOLESTE ROL ORALLY ACTIVE 04/11/2024 [id number] FISH, CHARLEE A 2022 90 [facility] [place] 40MG TAB TAKE ONE TABLET BY MOUTH EVERY DAY FOR CHOLESTE ROL ORALLY DISCONT INUED 07/15/2023 [id number] 3 DEAN BRITO 2022 90 [facility] CHOLECALCIF QUINTIN TAB TAKE 5000 UNITS BY MOUTH EVERY DAY ORALLY ACTIVE ABE CHARLEE Robinson 2022 [facility] COENZYME Q10 CAP/TAB TAKE 1 CAPSULE BY MOUTH EVERY DAY ORALLY ACTIVE ABE CHARLEE A 2022 [facility] CYANOCOBALA MIN 1000MCG TAB TAKE ONE TABLET BY MOUTH EVERY DAY ORALLY ACTIVE DEAN BRITO 2021 [facility] DICLOFENAC NA 1% GEL,TOP APPLY 4 GRAMS TOPICALL Y FOUR TIMES A DAY NEEDED FOR JOINT PAIN TOPICA LLY ACTIVE 03/22/2024 [id number] 3 CHARLEE FISH A 2022 100 [facility] FINASTERIDE 5MG TAB TAKE ONE TABLET BY MOUTH EVERY DAY FOR PROSTATE ORALLY ACTIVE 04/11/2024 [id number] 4 CHARLEE FISH A 2022 90 [facility] FINASTERIDE 5MG TAB TAKE ONE TABLET BY MOUTH EVERY DAY FOR PROSTATE ORALLY DISCONT INUED 07/13/2023 [id number] 3 CHARLEE FISH A 2021 90 [facility] FISH OIL 1000MG (500MG DHA/EPA) CAP,ORAL TAKE 1 CAPSULE BY MOUTH TWICE A DAY ORALLY ACTIVE JEFF CHOUDHARY ER A 2006 [facility] INSULIN,GLA RGINE,HUMAN 100 UNIT/ML INJ,SOLOSTA R,3ML INJECT 22 UNITS UNDER THE SKIN AT BEDTIME FOR DIABETES SUBCUT ANEOUS DISCONT INUED (EDIT) 09/30/2023 [id number] 3 NAIDL,TOD D 2022 5 [facility] INSULIN,GLA RGINE-YFGN 100UNIT/ML INJ PEN,3ML INJECT 24 UNITS UNDER THE SKIN EVERY EVENING FOR DIABETES SUBCUT ANEOUS ACTIVE 08/29/2024 [id number] 4 NAIDL,TOD D 2023 5 [facility] INSULIN,GLA RGINE-YFGN 100UNIT/ML INJ PEN,3ML INJECT 22 UNITS UNDER THE SKIN AT BEDTIME FOR DIABETES SUBCUT ANEOUS DISCONT INUED (EDIT) 01/07/2024 [id number] 3 NAIDL,TOD D 2022 5 [facility] INSULIN,GLA RGINE-YFGN 100UNIT/ML INJ PEN,3ML INJECT 20 UNITS UNDER THE SKIN AT BEDTIME FOR DIABETES SUBCUT ANEOUS DISCONT INUED (EDIT) 12/08/2023 [id number] 3 NAIDL,TOD D 2022 5 [facility] INSULIN,GLA RGINE-YFGN 100UNIT/ML INJ PEN,3ML INJECT 18 UNITS UNDER THE SKIN AT BEDTIME FOR DIABETES SUBCUT ANEOUS DISCONT INUED (EDIT) 11/08/2023 [id number] 3 NAIDL,TOD D 2022 5 [facility] LIDOCAINE 4% CREAM,TOP APPLY MODERATE AMOUNT TOPICALL Y THREE TIMES A DAY FOR PAIN TOPICA LLY ACTIVE 03/22/2024 [id number] 3 CHARLEE FISH A 2022 30 [facility] MAGNESIUM OXIDE 400MG TAB TAKE ONE TABLET BY MOUTH EVERY DAY ORALLY ACTIVE FISHCHRALEE A 2022 [facility] MENTHOL/MET HYL SALICYLATE (10-15%) LOW CONC. CREAM,TOP APPLY THIN LAYER TOPICALL Y THREE TIMES A DAY FOR MUSCLE PAIN TOPICA LLY ACTIVE 03/22/2024 [id number] 3 ABERADHACHARLEE A 2022 90 [facility] METFORMIN HCL 1000MG TAB TAKE ONE TABLET BY MOUTH TWICE A DAY FOR DIABETES ORALLY ACTIVE 04/11/2024 [id number] 4 CHARLEE FISH 2022 180 [facility] METFORMIN HCL 1000MG TAB TAKE ONE TABLET BY MOUTH TWICE A DAY FOR DIABETES ORALLY DISCONT INUED 07/15/2023 [id number] 3 NAIDL,TOD D 2022 180 [facility] OMEPRAZOLE 20MG CAP,EC TAKE ONE CAPSULE BY MOUTH EVERY DAY ON AN EMPTY STOMACH, AT LEAST 30 MINUTES PRIOR TO A MEAL FOR GERD ORALLY ACTIVE 03/22/2024 [id number] 3 CHARLEE FISH 2022 90 [facility] HCS SEMAGLUTIDE 0.5MG/0.375 ML INJ,SOLN,PE N,1.5ML INJECT 0.5MG UNDER THE SKIN EVERY WEEK FOR DIABETES SUBCUT ANEOUS DISCONT INUED (EDIT) 07/15/2023 [id number] 3 NAIDL,TOD D 2022 1 [facility] SEMAGLUTIDE 1MG/0.75ML INJ,SOLN,PE N,3ML INJECT 1MG UNDER THE SKIN EVERY WEEK FOR DIABETES SUBCUT ANEOUS ACTIVE 11/07/2024 [id number] 4 NAIDL,TOD D 2023 1 [facility] SEMAGLUTIDE 1MG/0.75ML INJ,SOLN,PE N,3ML INJECT 1MG UNDER THE SKIN EVERY WEEK FOR DIABETES SUBCUT ANEOUS DISCONT INUED 11/08/2023 [id number] 4 NAIDL,TOD D 2022 1 [facility] TAMSULOSIN HCL 0.4MG CAP TAKE ONE CAPSULE BY MOUTH EVERY EVENING ORALLY ACTIVE 04/13/2024 [id number] 4 FISHCHARLEE Bowers 2022 30 [facility] TAMSULOSIN HCL 0.4MG CAP TAKE ONE CAPSULE BY MOUTH EVERY EVENING ORALLY DISCONT INUED 04/11/2024 [id number] 3 CHARLEE FISH A 2022 90 [facility] TAMSULOSIN HCL 0.4MG CAP TAKE ONE CAPSULE BY MOUTH EVERY EVENING ORALLY DISCONT INUED 08/04/2023 [id number] 3 CHARLEE FISH 2022 90 [facility] TURMERIC CAP/TAB TAKE 500 MG BY MOUTH TWICE A DAY ORALLY ACTIVE MATTY POWERS 2018 [facility] Allergies, Adverse Reactions, Alerts Combined list of allergies from Department of Defense and Veterans Affairs facilities. It does not include entries that were removed or entered in error. Substance Category Reaction Severity Reaction type Status Date Reported Comments Source VANCOMYCIN Propensity to adverse reactions to drug (finding) [place] active 8 [facility] Immunizations Combined list of available immunizations from the Department of Defense and Veterans Affairs facilities. Immunization Series Date Given Administered By Site Reaction Lot Number CVX Code Drug Physical Therapy Asst Status Comments Source ZOSTER RECOMBINANT 2 2019 187 complet ed [facility] INFLUENZA, INJECTABLE, QUADRIVALENT, PRESERVATIVE FREE 2019 150 complet ed [facility] ZOSTER RECOMBINANT 1 2019 187 complet ed [facility] INFLUENZA, HIGH-DOSE, QUADRIVALENT 2019 197 complet ed [facility] INFLUENZA, SEASONAL, INJECTABLE, PRESERVATIVE FREE 2017 140 complet ed [facility] INFLUENZA, INJECTABLE, QUADRIVALENT, PRESERVATIVE FREE 2017 150 complet ed [facility] INFLUENZA, INJECTABLE, QUADRIVALENT, PRESERVATIVE FREE 2015 150 complet ed [facility] TDAP 2015 115 complet ed [place] [facility] PNEUMOCOCCAL CONJUGATE PCV 13 2015 133 complet ed [facility] TD (ADULT), 5 LF TETANUS TOXOID, PRESERVATIVE FREE, ADSORBED 2015 113 complet ed [facility] INFLUENZA, INJECTABLE, QUADRIVALENT, PRESERVATIVE FREE 2013 150 complet ed [facility] PNEUMOCOCCAL POLYSACCHARID E PPV23 2010 33 complet [facility] INFLUENZA, UNSPECIFIED FORMULATION 2006 88 complet [facility] PNEUMOCOCCAL, UNSPECIFIED FORMULATION 2006 109 complet [facility] TD(ADULT) UNSPECIFIED FORMULATION 2006 NONE 139 complet [facility] TETANUS TOXOID, UNSPECIFIED FORMULATION 2006 NONE 112 complet [facility] Results Combined list of recent chemistry, [...] Lab: [facility] [address] Performing Lab: [facility] [address] [facility] BASIC METABOLIC PANEL+MG CREATININE [MASS/VOLUM E] IN SERUM OR PLASMA 1.2 0.7 - 1.2 03/22 Specimen Type: PLASMA No comment entered. Ordering Provider: ME LEEROY FISH Report Released Date/Time: Aug 21, 2022 03:48 PM Reporting Lab: [facility] [address] Performing Lab: [facility] [address] [facility] BASIC METABOLIC PANEL+MG UREA NITROGEN [MASS/VOLUM E] IN SERUM OR PLASMA 15 8 - 26 03/22 Specimen Type: PLASMA No comment entered. Ordering Provider: ME LEEROY FISH Report Released Date/Time: Aug 21, 2022 03:48 PM Reporting Lab: [facility] [address] Performing Lab: [facility] [address] [place] [facility] BASIC METABOLIC PANEL+MG GLUCOSE [MASS/VOLUM E] IN SERUM OR PLASMA 145 70 - 100 03/22 H Specimen Type: PLASMA No comment entered. Ordering Provider: ME LEEROY FISH Report Released Date/Time: Aug 21, 2022 03:48 PM Reporting Lab: [facility] [address] Performing Lab: [facility] [address] [place] [facility] BASIC METABOLIC PANEL+MG SODIUM [MOLES/VOLU ME] IN SERUM OR PLASMA 138 136 - 145 03/22 Specimen Type: PLASMA No comment entered. Ordering Provider: ME LEEROY FISH Report Released Date/Time: Aug 21, 2022 03:48 PM Reporting Lab: [facility] [address] Performing Lab: [facility] [address] [place] [facility] BASIC METABOLIC PANEL+MG POTASSIUM [MOLES/VOLU ME] IN SERUM OR PLASMA 4.5 3.5 - 5.1 03/22 Specimen Type: PLASMA No comment entered. Ordering Provider: ME LEEROY FISH Report Released Date/Time: Aug 21, 2022 03:48 PM Reporting Lab: [facility] [address] Performing Lab: [facility] [address] [place] [facility] BASIC METABOLIC PANEL+MG CHLORIDE [MOLES/VOLU ME] IN SERUM OR PLASMA 101 98 - 107 03/22 Specimen Type: PLASMA No comment entered. Ordering Provider: ME LEEROY FISH Report Released Date/Time: Aug 21, 2022 03:48 PM Reporting Lab: [facility] [address] Performing Lab: [facility] [address] [place] [facility] BASIC METABOLIC PANEL+MG CARBON DIOXIDE, TOTAL [MOLES/VOLU ME] IN SERUM OR PLASMA 27 22 - 29 03/22 Specimen Type: PLASMA No comment entered. Ordering Provider: ME LEEROY FISH Report Released Date/Time: Aug 21, 2022 03:48 PM Reporting Lab: [facility] [address] Performing Lab: [facility] [address] [place] [facility] BASIC METABOLIC PANEL+MG CALCIUM [MASS/VOLUM E] IN SERUM OR PLASMA 10.0 8.4 - 10.2 03/22 Specimen Type: PLASMA No comment entered. Ordering Provider: ME LEEROY FISH Report Released Date/Time: Aug 21, 2022 03:48 PM Reporting Lab: [facility] [address] Performing Lab: [facility] [address] [place] [facility] BASIC METABOLIC PANEL+MG MAGNESIUM [MASS/VOLUM E] IN SERUM OR PLASMA 1.9 1.6 - 2.6 03/22 Specimen Type: PLASMA No comment entered. Ordering Provider: ME LEEROY FISH Report Released Date/Time: Aug 21, 2022 03:48 PM Reporting Lab: [facility] [address] Performing Lab: [facility] [address] [place] [facility] BASIC METABOLIC PANEL+MG ANION GAP IN SERUM OR PLASMA 10 5 - 15 03/22 Specimen Type: PLASMA No comment entered. Ordering Provider: ME LEEROY FISH Report Released Date/Time: Aug 21, 2022 03:48 PM Reporting Lab: [facility] [address] Performing Lab: [facility] [address] [place] [facility] BASIC METABOLIC PANEL+MG GLOMERULAR FILTRATION RATE/1.73 SQ M.PREDICTED [VOLUME RATE/AREA] IN SERUM, PLASMA OR BLOOD BY CREATININE- BASED FORMULA (CKD-EPI 2020) 63 60 03/22 Specimen Type: PLASMA No comment entered. Ordering Provider: ME LEEROY FISH Report Released Date/Time: Aug 21, 2022 03:48 PM Reporting Lab: [facility] [address] Performing Lab: [facility] [address] [place] [facility] HEMOGLOBI N A1C HEMOGLOBIN A1C/HEMOGLO [...] Lab: [facility] [address] Performing Lab: [facility] [address] [place] [facility] BASIC METABOLIC PANEL+MG CREATININE [MASS/VOLUM E] IN SERUM OR PLASMA 0.9 0.7 - 1.2 08/18 Specimen Type: PLASMA No comment entered. Ordering Provider: ME LEEROY FISH Report Released Date/Time: December 22, 2021 03:46 PM Reporting Lab: [facility] [address] Performing Lab: [facility] [address] [place] [facility] BASIC METABOLIC PANEL+MG UREA NITROGEN [MASS/VOLUM E] IN SERUM OR PLASMA 12 8 - 26 08/18 Specimen Type: PLASMA No comment entered. Ordering Provider: ME LEEROY FISH Report Released Date/Time: December 22, 2021 03:46 PM Reporting Lab: [facility] [address] Performing Lab: [facility] [address] [place] [facility] BASIC METABOLIC PANEL+MG GLUCOSE [MASS/VOLUM E] IN SERUM OR PLASMA 184 70 - 100 08/18 H Specimen Type: PLASMA No comment entered. Ordering Provider: ME LEEROY FISH Report Released Date/Time: December 22, 2021 03:46 PM Reporting Lab: [facility] [address] Performing Lab: [facility] [address] [place] [facility] BASIC METABOLIC PANEL+MG SODIUM [MOLES/VOLU ME] IN SERUM OR PLASMA 137 136 - 145 08/18 Specimen Type: PLASMA No comment entered. Ordering Provider: ME LEEROY FISH Report Released Date/Time: December 22, 2021 03:46 PM Reporting Lab: [facility] [address] Performing Lab: [facility] [address] [place] [facility] BASIC METABOLIC PANEL+MG POTASSIUM [MOLES/VOLU ME] IN SERUM OR PLASMA 3.9 3.5 - 5.1 08/18 Specimen Type: PLASMA No comment entered. Ordering Provider: ME LEEROY FISH Report Released Date/Time: December 22, 2021 03:46 PM Reporting Lab: [facility] [address] Performing Lab: [facility] [address] [place] [facility] BASIC METABOLIC PANEL+MG CHLORIDE [MOLES/VOLU ME] IN SERUM OR PLASMA 102 98 - 107 08/18 Specimen Type: PLASMA No comment entered. Ordering Provider: ME LEEROY FISH Report Released Date/Time: December 22, 2021 03:46 PM Reporting Lab: [facility] [address] Performing Lab: [facility] [address] [place] [facility] BASIC METABOLIC PANEL+MG CARBON DIOXIDE, TOTAL [MOLES/VOLU ME] IN SERUM OR PLASMA 26 22 - 29 08/18 Specimen Type: PLASMA No comment entered. Ordering Provider: ME LEEROY FISH Report Released Date/Time: December 22, 2021 03:46 PM Reporting Lab: [facility] [address] Performing Lab: [facility] [address] [place] [facility] BASIC METABOLIC PANEL+MG CALCIUM [MASS/VOLUM E] IN SERUM OR PLASMA 9.4 8.4 - 10.2 08/18 Specimen Type: PLASMA No comment entered. Ordering Provider: ME LEEROY FISH Report Released Date/Time: December 22, 2021 03:46 PM Reporting Lab: [facility] [address] Performing Lab: [facility] [address] [place] [facility] BASIC METABOLIC PANEL+MG MAGNESIUM [MASS/VOLUM E] IN SERUM OR PLASMA 1.6 1.6 - 2.6 08/18 Specimen Type: PLASMA No comment entered. Ordering Provider: ME LEEROY FISH Report Released Date/Time: December 22, 2021 03:46 PM Reporting Lab: [facility] [address] Performing Lab: [facility] [address] [place] [facility] BASIC METABOLIC PANEL+MG ANION GAP IN SERUM OR PLASMA 9 5 - 15 08/18 Specimen Type: PLASMA No comment entered. Ordering Provider: ME LEEROY FISH Report Released Date/Time: December 22, 2021 03:46 PM Reporting Lab: [facility] [address] Performing Lab: [facility] [address] [place] [facility] BASIC METABOLIC PANEL+MG GLOMERULAR FILTRATION RATE/1.73 SQ M.PREDICTED [VOLUME RATE/AREA] IN SERUM, PLASMA OR BLOOD BY CREATININE- BASED FORMULA (CKD-EPI) 89 60 08/18 Specimen Type: PLASMA No comment entered. Ordering Provider: ME LEEROY FISH Report Released Date/Time: December 22, 2021 03:46 PM Reporting Lab: [facility] [address] Performing Lab: [facility] [address] [place] [facility] HEMOGLOBI N A1C HEMOGLOBIN A1C/HEMOGLO BIN.TOTAL IN BLOOD 8.2 4.0 - 6.0 12/22 H Specimen Type: BLOOD No comment entered. Ordering Provider: ME LEEROY FISH Report Released Date/Time: Aug 03, 2021 01:53 PM Reporting Lab: [facility] [address] Performing Lab: [facility] [address] [place] [facility] BASIC METABOLIC PANEL+MG CREATININE [MASS/VOLUM E] IN SERUM OR PLASMA 1.1 0.7 - 1.2 12/22 Specimen Type: PLASMA No comment entered. Ordering Provider: ME LEEROY FISH Report Released Date/Time: Aug 03, 2021 01:53 PM Reporting Lab: [facility] [address] Performing Lab: [facility] [address] [place] [facility] BASIC METABOLIC PANEL+MG UREA NITROGEN [MASS/VOLUM E] IN SERUM OR PLASMA 15 8 - 26 12/22 Specimen Type: PLASMA No comment entered. Ordering Provider: ME LEEROY FISH Report Released Date/Time: Aug 03, 2021 01:53 PM Reporting Lab: [facility] [address] Performing Lab: [facility] [address] [place] [facility] BASIC METABOLIC PANEL+MG GLUCOSE [MASS/VOLUM E] IN SERUM OR PLASMA 174 74 - 100 12/22 H Specimen Type: PLASMA No comment entered. Ordering Provider: ME LEEROY FISH Report Released Date/Time: Aug 03, 2021 01:53 PM Reporting Lab: [facility] [address] Performing Lab: [facility] [address] [place] [facility] BASIC METABOLIC PANEL+MG SODIUM [MOLES/VOLU ME] IN SERUM OR PLASMA 141 136 - 145 12/22 Specimen Type: PLASMA No comment entered. Ordering Provider: ME LEEROY FISH Report Released Date/Time: Aug 03, 2021 01:53 PM Reporting Lab: [facility] [address] Performing Lab: [facility] [address] [place] [facility] BASIC METABOLIC PANEL+MG POTASSIUM [MOLES/VOLU ME] IN SERUM OR PLASMA 4.2 3.5 - 5.1 12/22 Specimen Type: PLASMA No comment entered. Ordering Provider: ME LEEROY FISH Report Released Date/Time: Aug 03, 2021 01:53 PM Reporting Lab: [facility] [address] Performing Lab: [facility] [address] [place] [facility] BASIC METABOLIC PANEL+MG CHLORIDE [MOLES/VOLU ME] IN SERUM OR PLASMA 101 98 - 107 12/22 Specimen Type: PLASMA No comment entered. Ordering Provider: ME LEEROY FISH Report Released Date/Time: Aug 03, 2021 01:53 PM Reporting Lab: [facility] [address] Performing Lab: [facility] [address] [place] [facility] BASIC METABOLIC PANEL+MG CARBON DIOXIDE, TOTAL [MOLES/VOLU ME] IN SERUM OR PLASMA 30 22 - 29 12/22 H Specimen Type: PLASMA No comment entered. Ordering Provider: ME LEEROY FISH Report Released Date/Time: Aug 03, 2021 01:53 PM Reporting Lab: [facility] [address] Performing Lab: [facility] [address] [place] [facility] BASIC METABOLIC PANEL+MG CALCIUM [MASS/VOLUM E] IN SERUM OR PLASMA 10.1 8.4 - 10.2 12/22 Specimen Type: PLASMA No comment entered. Ordering Provider: ME LEEROY FISH Report Released Date/Time: Aug 03, 2021 01:53 PM Reporting Lab: [facility] [address] Performing Lab: [facility] [address] [place] [facility] BASIC METABOLIC PANEL+MG MAGNESIUM [MASS/VOLUM E] IN SERUM OR PLASMA 1.8 1.6 - 2.6 12/22 Specimen Type: PLASMA No comment entered. Ordering Provider: ME LEEROY FISH Report Released Date/Time: Aug 03, 2021 01:53 PM Reporting Lab: [facility] [address] Performing Lab: [facility] [address] [place] [facility] BASIC METABOLIC PANEL+MG ANION GAP IN SERUM OR PLASMA 10 5 - 15 12/22 Specimen Type: PLASMA No comment entered. Ordering Provider: ME LEEROY FISH Report Released Date/Time: Aug 03, 2021 01:53 PM Reporting Lab: [facility] [address] Performing Lab: [facility] [address] [place] [facility] BASIC METABOLIC PANEL+MG CREAT EGFR(CKD-EP I) 70 60 12/22 Specimen Type: PLASMA No comment entered. Ordering Provider: ME LEEROY FISH Report Released Date/Time: Aug 03, 2021 01:53 PM Reporting Lab: [facility] [address] Performing Lab: [facility] [address] [facility] [address] [place] [facility] Vital Signs Combined list of inpatient [...] DC Date Status Disposition Source [place] [facility] Outpatient Encounter [id number] 06/14 [facility] [place] [facility] Outpatient Encounter [id number] 06/16 [facility] [place] [facility] Outpatient Encounter [id number] SA [facility] Encounter [id number] Kimberly [facility]RIFFIN 07[facility] HC PRO PHONE CALL 11-20 MIN [id number] Diagnos is: ICD-10- CM E11.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
NAIDLKARI 07/14 [facility] [place] [facility] Outpatient Encounter [id number] SATINDER SMITH 07[facility]21 [facility] [facility] [place] [facility] OFFICE O/P EST MOD 30-39 MIN [id number] Diagnos is: ICD-10- CM E11.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
Rhiannon FISH 08/18 [facility] [place] [facility] Outpatient Encounter [id number] 08/21 [facility] [place] [facility] HC PRO PHONE CALL 11-20 MIN [id number] Diagnos is: ICD-10- CM E11.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
NAIDL,KARI 08/29 [place] [facility] HC PRO PHONE CALL 11-20 MIN [id number] Diagnos is: ICD-10- CM E11.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
NAIDL,KARI 09/29 [place] [facility] HC PRO PHONE CALL 21-30 MIN [id number] Diagnos is: ICD-10- CM E11.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
NAIDL,KARI 11/07 [facility] PRO PHONE CALL 11-20 MIN [id number] Diagnos is: ICD-10- CM E11.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
NAIDL,KARI 12/07 [facility] Outpatient Encounter [id number] Diagnos is: ICD-10- CM Z77.29 Contact with and exposur e to other [facility]<br/ > JEANINE,MATH ILDE J 12/27 [facility] Outpatient Encounter [id number] Diagnos is: ICD-10- CM Z77.29 Contact with and exposur e to other hazardo us substan monica<br/ > JEANINE,MATH ILDE J 12/27 [facility] HC PRO PHONE CALL 11-20 MIN [id number] Diagnos is: ICD-10- CM E11.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
NAIDL,KARI 01/06 [place] [facility] Outpatient Encounter [id number] 03/10 [place] [place] [facility] HC PRO PHONE CALL 11-20 MIN [id number] Diagnos is: ICD-10- CM E11.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
NAIDL,KARI 03/14 [place] [facility] [place] [facility] O/P EST LOW 20-29 MIN [id number] Diagnos is: ICD-10- CM E11.621 Type 2 diabete s mellitu s with foot ulcer<b r/> Rhiannon FISH 03/22 [place] [facility] HC PRO PHONE CALL 21-30 MIN [id number] Diagnos is: ICD-10- CM E11.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
NAIDL,KARI 04/18 [place] [facility] [place] [facility] HC PRO PHONE CALL 21-30 MIN [id number] Diagnos is: ICD-10- CM E11.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
NAIDL,KARI 07/11 [place] [facility] [place] [facility] MTMS BY PHARM ADDL 15 MIN [id number] Diagnos is: ICD-10- CM E11.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
NAIDL,KARI 08/29 [place] [facility] [place] [facility] MTMS BY PHARM EST 15 MIN [id number] Diagnos is: ICD-10- CM E11.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
AWSOLEDAD BUCKLEY L 10/10 [place] [facility] [place] [facility] Outpatient Encounter [id number] 10/16 [facility] [place] [facility] MTMS BY PHARM EST 15 MIN [id number] Diagnos is: ICD-10- CM E11.621 Type 2 diabete s mellitu s with foot ulcer<b r/> NAIDL,KARI 11/06 [facility] MTMS BY PHARM ADDL 15 MIN [id number] Diagnos is: ICD-10- CM E11.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
NAIDL,KARI 11/22 [facility] Social History Combined list of available smoking, tobacco, and other social history from Department of Defense and Veterans Affairs facilities. Social History Type Response Date Comment Sourc e Tobacco smoking status NHIS SD-TOBACCO QUIT 15 YRS OR MORE 08/18/2022 [facility] History of tobacco use SD-TOBACCO FORMER USER 08/18/2022 [facility] History of tobacco use SD-TOBACCO FORMER USER 05/03/2021 [facility] History of tobacco use SD-TOBACCO FORMER USER 04/21/2020 [facility] History of tobacco use FORMER TOBACCO US E >1Y <7Y 04/03/2018 [facility] History of tobacco use CURRENT TOBACCO USER 03/09/2007 [facility] Plan of Care List of future care activities from Department Veterans Affairs facilities. Additional future care activities may be listed in the Assessment and Plan section. Date/Time Care Activity Care Activity Detail Facili ty 01/18/2024 AMBULATORY - NONE AMBULATORY - NONE [facility] Advance Directives List of completed, amended, or rescinded Advance Directives on record at Department of [facility] facilities. An actual copy of the Directive is not included. Date Advance Directive Provider Source 06/22/2021 ADVANCE DIRECTIVE DISCUSSION ALLYSON GRAF [facility] 06/22/2021 ADVANCE DIRECTIVE ALLYSON GRAF [facility] 03/09/2007 ADVANCE DIRECTIVE SOLEDAD WOLFF [facility]
--- OUTSIDE RECORDS SUMMARY | 2023-12-11 14:17 | XMS_ITS | Clinical Summary ---
Author Name Unknown Organization [employer] [facility] Address [place], [place] [address] Care Team Providers Care Business Law Teacher Name Role Phone Post, Dave Velazquez MD Primary Care Provider Moshe Enciso MD Unavailable Arie Justin MD Unavailable [phone] [facility], Met Unavailable Murali Hoover DPM Unavailable [phone] Allergies No known active allergies Medications [...] to Care Guide Pamella Brennan Phone number [phone]. Alcohol abuse 06/02/2010 03/26/2019 Overview: Sober since 2001. Great success with AA. 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 10/06/2023 Pyogenic arthritis of left shoulder region 06/17/2022 Encounters Date Type Department Care Team Description 11/28/2023 Telephone [facility] [address] [place] [place] [address] Post, Dave Velazquez MD Outside Order 11/03/2023 11:00 AM CDT Office Visit [facility] [place] [address] [place] [address] Post, Dave Velazquez MD Form (diabetic shoes) 11/03/2023 Travel 10/25/2023 1:00 PM CDT Orders Only [facility] [address] [place] [address] Lab, [facility] 10/25/2023 Travel 10/06/2023 1:30 PM WINDOWS ARCHITECT Phone Office Visit [facility] [place] [address] [place] [address] Post, Dave Velazquez MD 10/03/2023 Travel from Last 3 Months Immunizations Name [...] 36.7 ??C (98 ??F) 06/29/2022 8:43 AM WINDOWS ARCHITECT Respiratory Rate 18 06/29/2022 8:43 AM WINDOWS ARCHITECT Oxygen Saturation 96% 07/21/2023 1:34 PM WINDOWS ARCHITECT Inhaled Oxygen Concentration - - Weight 107 kg (236 lb) 11/03/2023 11:13 AM CDT w ith shoes Height 180.3 cm (5' 10.98) 07/21/2023 1:[address] Body Mass Index 32.93 07/21/2023 1:34 PM WINDOWS ARCHITECT Plan of Treatment Health Maintenance Due Date [...] 07/16/2020, 04/21/2020 Medical Devices Implanted Type Area Knitted Cloth Examiner Device Identifier Shelf Expiration Date Model / Serial / Lot [id number] - [id number] Implanted:Qty: 1 on 09/20/2021 at [facility] Right: Foot [employer] AR-8725-4 4H / / Description:COMPRESSION FT S CREWS CANNULATED, 2.5 MICRO 44MM LOAD 4 7 [id number] [facility]-1530p - [id number] Implanted:Qty: 1 on 09/20/2021 at [facility] Right: Foot [employer] 03/30/2025 AR-1530P- CP / / [id number] Description:FOREFOOT INTERNA L BRACE IMPLANT SYSTEM, PEEK Screw 4.86h95uy Bio Compositetenodesis Disp Pipe Jeeper Pk - [id number] Implanted:Qty: 1 on 09/20/2021 at [facility] Right: Foot [employer] 08/30/2022 AR-1547CD S / / [id number] Ancr Sut 1.3mm Dx Fibertak Suturetape 2 Ndl 26.2mm 08/01 [facility] - [id number] Implanted:Qty: 1 on 09/20/2021 at [facility] Right: Foot [employer] 06/29/2026 AR-8990ST / / [id number] Explanted Type Area Knitted Cloth Examiner Device Identifier Shelf Expiration Date Model / Serial / Lot Wire Kirs .[id number] Smooth6/Pk Depuy/Héctor - [id number] Explanted:Qty: 1 on 09/20/2021 at [facility] Right: Foot [employer] [id number] / / Description:LOAD 4 8 [id number] [facility]-8737-40 - [id number] Explanted:Qty: 1 on 09/20/2021 at [facility] Right: Foot [employer] AR-8737-40 / / Description:2.5 MICRO COMPRE SSION FT DRILLS AND DISPOSABLES, GUIDEWIRE W TROCAR TIP, THREADED, 0.34 IN (.86MM) LOAD 4 7 [id number] Procedures Procedure Name Priority Date/Time Associated Diagnosis [...] diabetes mellitus with diabetic neuropathy, unspecified whether termite control service representative insulin use (HC) CT CHEST PE STUDY Routine 05/10/2022 7:5 0 PM CDT OCCULT BLOOD IFOBT STOOL Routine 07/03/2013 7:00 PM WINDOWS ARCHITECT Screening for colon cancer from Last 3 Months or Most Recently Relevant to Health Maintenance Results * (ABNORMAL) CBC WITH AUTO DIFFERENTIAL (10/25/2023 12:59 PM CDT) WHITE BLOOD COUNT 8.1 4.5 - 11.0 thou/cu mm 10/25/2023 1:36 PM CDT [facility] RED BLOOD COUNT 4.53 4.30 - 5.90 mil/cu mm 10/25/2023 1:36 PM CDT [facility] HEMOGLOBIN 12.4(L) 13.5 - 17.5 g/dL 10/25/2023 1:36 PM CDT [facility] HEMATOCRIT 38.9 37.0 - 53.0 % 10/25/2023 1:36 PM CDT [facility] MCV 86 80 - 100 fL 10/25/2023 1:36 PM CDT [facility] MCH 27.4 26.0 - 34.0 pg 10/25/2023 1:36 PM CDT [facility] MCHC 31.9(L) 32.0 - 36.0 g/dL 10/25/2023 1:36 PM CDT [facility] RDW 16.5(H) 11.5 - 15.5 % 10/25/2023 1:36 PM CDT [facility] PLATELET COUNT 175 140 - 440 thou/cu mm 10/25/2023 1:36 PM CDT [facility] MPV 10.3 6.5 - 11.0 fL 10/25/2023 1:36 PM CDT [facility] % NEUT 66.6 % 10/25/2023 1:36 PM CDT [facility] % LYMPH 21.6 % 10/25/2023 1:36 PM CDT [facility] % MONO 7.3 % 10/25/2023 1:36 PM CDT [facility] % EOS 4.3 % 10/25/2023 1:36 PM CDT [facility] % BASO 0.2 % 10/25/2023 1:36 PM CDT [facility] ABSOLUTE NEUTROPHILS 5.4 1.7 - 7.0 thou/cu mm 10/25/2023 1:36 PM CDT [facility] ABSOLUTE LYMPHOCYTES 1.7 0.9 - 2.9 thou/cu mm 10/25/2023 1:36 PM CDT [facility] ABSOLUTE MONOCYTES 0.6 <0.9 thou/cu mm 10/25/2023 1:36 PM CDT [facility] ABSOLUTE EOSINOPHILS 0.4 <0.5 thou/cu mm 10/25/2023 1:36 PM CDT [facility] ABSOLUTE BASOPHILS 0.0 <0.3 thou/cu mm 10/25/2023 1:36 PM CDT [facility] Blood BLOOD SPECIMEN / Unknown Venipuncture / Unknown 10/25/2023 12:59 PM CDT 10/25/2023 12:59 PM CDT Narrative [facility] - 10/25/2023 1:36 PM CDT This procedure was originally ordered at [facility]. This procedure was originally ordered at [facility]. Dave Garrett MD HEMATOLOGY [facility] [address] [place] [address], * TSH WITH REFLEX (10/25/2023 12:59 PM CDT) TSH 1.43 0.27 - 4.20 uIU/mL 10/25/2023 10:26 PM CDT [facility] Blood BLOOD SPECIMEN / Unknown Venipuncture / Unknown 10/25/2023 12:59 PM CDT 10/25/2023 12:59 PM CDT Narrative [facility] - 10/25/2023 10:26 PM CDT In Adults, TSH values between 5.00 and 10.00 uIU/ml do not necessarily indicate the presence of Hypothyroidism. Correlation with clinical findings such as presence of goiter and/or Thyroperoxidase (TPO) Antibody may be helpful. For more information please refer to LOWELL 2004; 291: 228-238. Dave Garrett MD CHEMISTRY Performing Organization Address [facility] Co de Phone Number [facility] [address] [place] [address], * (ABNORMAL) Creatinine (10/25/2023 12:59 PM CDT) eGFR 71(L) >90 mL/min/1.7 3m2 10/25/2023 10:26 PM CDT [facility] Comment:As of 2021, eG FR is calculated by the CKD-EPI creatinine equation without race adjustment. ??eGFR can be influenced by muscle mass, exercise, and diet. ??The reported eGFR is an estimation only and is only applicable if the renal function is stable. CREATININE 1.08 0.70 - 1.20 mg/dL 10/25/2023 10:26 PM CDT [facility] Blood BLOOD SPECIMEN / Unknown Venipuncture / Unknown 10/25/2023 12:59 PM CDT 10/25/2023 12:59 PM CDT Dave Garrett MD CHEMISTRY Performing Organization Address [facility]/ZIP Co de Phone Number [facility] [address] [place] [address], * (ABNORMAL) Hemoglobin A1c (monitoring) (10/25/2023 12:59 PM CDT) HEMOGLOBIN A1C MONITORING (POCT) 7.9(H) <=6.4 % 10/25/2023 3:27 PM CDT [facility] Blood BLOOD SPECIMEN / Unknown Venipuncture / Unknown 10/25/2023 12:59 PM CDT 10/25/2023 12:59 PM CDT Narrative [facility] - 10/25/2023 3:27 [...] Dave Garrett MD CHEMISTRY Performing Organization Address [facility]/[place] de Phone Number [facility] [address] [place] [address], * CT Chest PE study TODAY (05/10/2022 [...] Occult Blood Stool (IFOBT) (07/03/2013 7:00 PM WINDOWS ARCHITECT) STOOL BLOOD ,IFOBT Negative Negative, Invalid 07/04/2013 3:03 PM WINDOWS ARCHITECT [facility] Stool specimen (specimen) STOOL SPECIMEN / Unknown Non-Blood / Unknown 07/03/2013 7:00 PM WINDOWS ARCHITECT 07/04/2013 2:39 PM WINDOWS ARCHITECT Dave Garrett MD LABORATORY [facility] [address] [place] [address] from Last 3 Months or Most Recently Relevant to Health Maintenance Advance Directives Documents on File Type Date Recorded Patient Financial Planning Adviser Expl anation Healthcare Directive 05/21/2021 3:50 PM [...] Code Status Discussion: Reviewed Preferences Care Teams Business Law Teacher Relationship Specialty Start Date End Date Post, Dave Velazquez MD PCP - General 06/02/10 Moshe Enciso MD [address] [facility] [address] [place], [place] [address] Endocrinology Endocrinology 01/04/18 [place] [address] [facility] [address] [place], [place] [id number] Surgery - Ophthalmology 03/22/18 [facility], [facility] [address] [facility] [address] [place], [place] [address] 06/08/21 Murali Hoover, DPM [address] [place] [address] Surgery - Podiatric 01/03/23
--- OUTSIDE RECORDS SUMMARY | 2023-12-11 14:18 | XMS_ITS | Data Portability ---
Author Name Unknown Address [address] [place] [address] Phone [phone] Organization [facility] Address [address] [place] [address] Care Team Providers Care Head Of History Name Role Phone POST, SUE Primary Care Provider [phone] Assessment Encounter Date Assessment Date Assessment LastModified [...] to efficacy (6+ months) and side effects Not available 06/16/2022 18:10:42 06/30/2022 06/30/2022 77M [...] of Hospitaliza tion for UTI. 2022 023 [facility], [address], [place], [address], 3 10:05:08 urinalysis, dipstick 2022 023 [facility], [address], [place], [address], 3 12:03:37 Referral None recorded. Procedures None recorded. Surgeries None recorded. Imaging None recorded. Medication Orders tamsulosin 0.4 mg capsule 2021 022 [email or web address] 2 [facility], [address] , [place], [address], 2 18:25:29 finasteride 5 mg tablet 2021 022 [email or web address] 2 [facility], [address], [place], [address], 2 18:25:29 Patient TargetsNo targets recorded. Patient Instructions Encounter Date Encounter Id Patient Instructions Last Modified By Organization Details Last Modified Time 11/04/2022 [id number] Pt has F/U appt with Dr Barrientos in [place] on 11/11/2022 @ 3:10pm to review UDS. Not available 10/19/2022 15:50:04 09/23/2022 [id number] Patient to call clinic with questions or concerns. Advised patient to increase water intake and to keep 4 week appointment for next catheter change. [email or web address] Not available 09/23/2022 13:22:30 08/03/2022 [id number] Will reach out t o [place] about patient [email or web address] Not available 08/03/2022 11:17:30 Reason for Referral None Reported. Results Created Date Observation Date Name Description Value Unit Range Abnormal Flag LastModifiedBy Organization Detail LastModifiedTime 11/05/1911/04/2022 URINE CULTU RE final report microb iology result s abnormal Not Available [facility] [address], [place], [address], 11/07/2022 10:05:08 11/05/19 23 11/04/2022 urina lysis , dipst ick Color-Status Straw Not Available [facility] [address], [place], [address], 11/04/2022 12:02:10 11/05/19 23 11/04/2022 urina lysis , dipst ick Clarity-Stat us Slight ly Cloudy Not Available [facility] [address], [place], [address], 11/04/2022 12:02:10 11/05/19 23 11/04/2022 urina lysis , dipst ick Glucose-Stat us 500 Not Available [facility] [address], [place], [address], 11/04/2022 12:02:10 11/05/19 23 11/04/2022 urina lysis , dipst ick Bilirubin-St atus Negati ve Not Available [facility] [address], [place], [address], 11/04/2022 12:02:10 11/05/19 23 11/04/2022 urina lysis , dipst ick Ketones-Stat us Negati ve Not Available [facility] [address], [place], [address], 11/04/2022 12:02:10 11/05/19 23 11/04/2022 urina lysis , dipst ick Sp [place]-Stat us 1.015 Not Available [facility] [address], [place], [address], 11/04/2022 12:02:10 11/05/19 23 11/04/2022 urina lysis , dipst ick pH-Status 6.5 Not Available [facility] [address], [place], [address], 11/04/2022 12:02:10 11/05/19 23 11/04/2022 urina lysis , dipst ick Protein-Stat us 5.0 Not Available [facility] [address], [place], [address], 11/04/2022 12:02:10 11/05/19 23 11/04/2022 urina lysis , dipst ick Urobilinogen -Status 0.2 Not Available [facility] [address], [place], [address], 11/04/2022 12:02:10 11/05/19 23 11/04/2022 urina lysis , dipst ick Nitrates-Sta tus positi ve Not Available [facility] [address], [place], [address], 11/04/2022 12:02:10 11/05/19 23 11/04/2022 urina lysis , dipst ick Blood-Status Large Not Available [facility] [address], [place], [address], 11/04/2022 12:02:10 11/05/19 23 11/04/2022 urina lysis , dipst ick Leuko-Status Large Not Available [facility] [address], [place], [address], 11/04/2022 12:02:10 11/05/19 23 11/04/2022 urina lysis , dipst ick Specimen Type Cathet erized Not Available [facility] [address], [place], [address], 11/04/2022 12:02:10 11/05/19 23 11/04/2022 urina lysis , dipst ick Performed by Jake ross Not Available [facility] [address], [place], [address], 11/04/2022 12:02:10 Result Notes None recorded. Problems Name Status Onset Date Resolution Date Notes Provider Name and Address Organization Details Recorded Time Retention of urine Active 3 Jenna song [facility] 10/21/2022 13:15:43 Problem Notes None recorded. Procedures Surgical History Date Name Laterality Status Provider Name and Address Organization Details Recorded Time 3 Fill and Pull/Voiding Trial/TOV completed OLMAN Chappell [facility] 12/09/2022 11:59:45 3 Urodynamic Studies completed Deyanira song [facility] 11/04/2022 12:19:38 3 Terry Catheter Insertion completed Deyanira song [facility] 11/04/2022 12:21:21 3 Urethral Catheter Change completed Jenna Harris null, [facility] 10/21/2022 13:18:32 3 Urethral Catheter Change completed Nenita Flores null, [facility] 09/23/2022 13:21:12 3 Terry Catheter Insertion completed Roula Beltran null, [facility] 08/03/2022 11:16:51 3 Fill and Pull/Voiding Trial/TOV completed Roula Beltran null, [facility] 08/03/2022 11:16:41 2 Cystoscopy- male completed Kristopher Barrientos MD, PHD [address] [place] [address],[address], [address], [facility] 06/30/2022 09:37:30 2 Urethral Catheter Change completed Carlos Mix null, [facility] 06/30/2022 09:49:15 2 Terry Catheter Insertion completed Еленаarminda Josue null, [facility] 06/16/2022 15:03:22 2 Fill and Pull/Voiding Trial/TOV completed Roula Tony PA-C [address] [place] [address], [address], [facility] 06/16/2022 18:06:50 Cataract Surgery completed [place] [facility] 06/16/2022 12:30:25 Orthopedic Surgery completed [place] [facility] 06/16/2022 12:30:33 Imaging Results None [...] Updated DateTime 06/16/2022 180.34 cm 30 kg/m2 64667.36 g Juanito Josue [facility] 06/16/2022 12:27:07 Date Recorded Body height Provider Name an d Address Organization Details Last Updated DateTime 06/30/2022 180.34 cm Carlos Mix [facility] 1 08/31/2021 09:27:04 Date Recorded Body height Provider Name an d Address Organization Details Last Updated DateTime 09/23/2022 180.34 cm Nenita Flores [facility] 09/23/2022 13:17:39 Date Recorded Body height Body mass index (BMI) Body weight Provider Name and Address Organization Details Last Updated DateTime 11/11/2022 180.34 cm 30 kg/m2 76032.36 g Amanda Molina [facility] 11/11/2022 16:25:51 Social History Question Answer Notes LastModified by Organizat ion Details LastModified Time Tobacco Smoking Status Former Smoker Juanito song, [facility] 06/16/2022 12:29:38 What Is Your Level Of [...] Encounter Closed Date Diagnosis/Indication Diagnosis SNOMED-CT Code [id number] Roula Tony PA-C [facility] [address] [place] [address] 06/16/2022 11:30:09 06/20/2022 08:36:10 Retention of urine [id number] Benign pro static hyperplasia with outflow obstruction [id number] Kristopher bains MD, PHD [facility] [address] [place] [address] 06/30/2022 08:46:23 07/04/2022 11:29:58 Retention of urine [id number] Benign pro static hyperplasia with outflow obstruction [id number] Roula Beltran [facility] [address] [place] [address] 08/03/2022 10:27:16 08/05/2022 11:54:14 Retention of urine [id number] Nenitaaranza Flores [facility] [address] [place] [address] 09/23/2022 10:30:04 09/26/2022 14:37:37 [id number] Kristopher bains MD, PHD [facility] [address] [place] [address] 11/04/2022 10:41:00 11/10/2022 13:37:32 Benign prostatic hyperplasia with outflow obstruction [id number] Retention of urine 75567 4002 Microscopic hematuria 19 4567977 [id number] Jenna Steven [facility] [address] [place] [address] 10/21/2022 11:27:55 10/24/2022 11:49:09 Retention of urine [id number] [id number] Kristopher bains MD, PHD [facility] [address] [place] [address] 11/11/2022 16:25:28 11/17/2022 17:02:38 Retention of urine [id number] Benign pro static hyperplasia with outflow obstruction [id number] Jenna Harris [facility] [address] [address] 12/09/2022 10:56:01 12/12/2022 15:10:14 Retention of urine 235191086 Health Concerns Section Related Observation LastModified by Organization Detai ls LastModified Time None Recorded Concern Status LastModified by Organization Details LastModified Time None Recorded Advance Directives Directive None Recorded Payers Encounter Date Sequence Insurance Name Policy Number Policy Molina Covered Member ID Molina Member ID Guarantor Name 12/09/2022 1 [place] [employer] Tom B Renaux [id number] Tom B Renaux 12/09/2022 2 [place] [id number] Tom B Renaux [id number] Tom B Renaux 11/11/2022 1 [place] [employer] Tom B Renaux [id number] Tom B Renaux 11/11/2022 2 [place] [id number] Tom B Renaux [id number] Tom B Renaux 11/04/2022 1 [place] [employer] Tom B Renaux [id number] Tom B Renaux 11/04/2022 2 [place] [id number] Tom B Renaux [id number] Tom B Renaux 10/21/2022 1 [place] [employer] Tom B Renaux [id number] Tom B Renaux 10/21/2022 2 [place] [id number] Tom B Renaux [id number] Tom B Renaux 09/23/2022 1 [place] [employer] Tom B Renaux [id number] Tom B Renaux 09/23/2022 2 [place] [id number] Tom B Renaux [id number] Tom B Renaux 08/03/2022 1 [place] [employer] Tom B Renaux [id number] Tom B Renaux 08/03/2022 2 [place] [id number] Tom B Renaux [id number] Tom B Renaux 06/30/2022 1 [place] [employer] Tom B Renaux [id number] Tmo B Renaux 06/30/2022 2 [place] [id number] Tom B Renaux [id number] Tom B Renaux 06/16/2022 1 [place] [employer] Tom B Renaux [id number] Tom B Renaux 06/16/2022 2 [place] [id number] Tom B Renaux [id number] Tom B Renaux Notes Date Note Type Note Provider Name and Address Organization Details Recorded Time 06/16/2022 text/html HPI Notes: 77M w ith urinary retention. Here with . Recent hospitalization at [facility] from 04/30-05/30 for MSSA bacteremia with C-spine [...] Tobacco: EtOH: FHx: Roula Tony PA-C [address], [place], [address], [facility] 06/16/2022 18:10:53 06/30/2022 text/html HPI Notes: 77M w ith urinary retention. Here for cysto. Saw LILIBETH Nix. Recent hospitalization at [facility] from 04/30-05/30 for MSSA bacteremia with C-spine [...] EtOH: FHx: Kristopher Barrientos MD, PHD [address], [place], [address], [facility] 06/30/2022 14:06:37 09/23/2022 text/html HPI [...] 4 weeks for next catheter change. Nenita Flores nohemi [facility] 09/23/2022 13:22:32 10/21/2022 text/html HPI Notes: Pt he re for catheter change Jenna Harris nohemi, [facility] 10/21/2022 13:21:54 11/11/2022 text/html HPI Notes: 77M w ith urinary retention. Hospitalization at [facility] from 04/30-05/30 for MSSA bacteremia with C-spine [...] their care. Kristopher Barrientos MD, PHD [address], [place], [address], [facility] 11/11/2022 17:49:57 12/09/2022 text/html HPI Notes: Pt of Dr PALMER, here for TOV recommended at 11/11/22 visit OLMAN Chappell - [facility] 12/09/2022 12:43:22
== END 2023-12-11 14:15 | disposition home or self-care (01) ==
LOC: WOUND 14:14
PROVIDERS: Visit Provider Nurse Practitioner Family
DX: E11.621 Type 2 diabetes mellitus with foot ulcer (principal); L97.512 Non-pressure chronic ulcer of other part of right foot with fat layer exposed; Z79.4 Long term (current) use of insulin; Z79.84 Long term (current) use of oral hypoglycemic drugs
CPT/HCPCS: 15275; Q4151

== ENCOUNTER 2023-12-18 14:21 | Outpatient (CLI) | payer MEDICARE, BC, SELFPAY ==
--- OUTSIDE RECORDS SUMMARY | 2023-12-18 14:22 | XMS_ITS | Referral Summary ---
Author Name Unknown Organization [place] Address [address] [place] [address] Care Team Providers Care U.[place]. Commissioner Name Role Phone Post, Dave Wakefield Primary Care Provider [phone] Medications Medication Sig Dispensed Refills Start Date [...] Comments Blood Pressure 148/85 06/26/2018 5:58 PM ELECTRONICS UTILITY WORKER Pulse 90 06/26/2018 5:58 PM ELECTRONICS UTILITY WORKER Temperature 36.6 ??C (97.8 ??F) 06/26/2018 5:58 PM CS T Respiratory Rate 18 06/26/2018 5:58 PM ELECTRONICS UTILITY WORKER Oxygen Saturation 95% 06/26/2018 7:00 PM ELECTRONICS UTILITY WORKER Inhaled Oxygen Concentration - - Weight 112 kg (247 lb) 06/26/2018 5:58 PM ELECTRONICS UTILITY WORKER Height 180.3 cm (5' 11) 06/26/2018 5:58 PM ELECTRONICS UTILITY WORKER Body Mass Index 34.45 06/26/2018 5:58 PM ELECTRONICS UTILITY WORKER Plan of Treatment Not on file Care Teams U.[place]. Commissioner Relationship Specialty Start Date End Date Post, Dave Wakefield PCP - General Internal Medicine 06/26/18
--- OUTSIDE RECORDS SUMMARY | 2023-12-18 14:22 | XMS_ITS | Clinical Summary ---
Author Name Unknown Organization [facility] Address [address] [place] [address] Care Team Providers Care Plastics Scientist Name Role Phone Post, Dave Wakefield Primary Care Provider [phone] Medications Medication Sig Dispensed Refills Start Date [...] Comments Blood Pressure 148/85 06/26/2018 5:58 PM STRAP STITCHER Pulse 90 06/26/2018 5:58 PM STRAP STITCHER Temperature 36.6 ??C (97.8 ??F) 06/26/2018 5:58 PM CS T Respiratory Rate 18 06/26/2018 5:58 PM STRAP STITCHER Oxygen Saturation 95% 06/26/2018 7:00 PM STRAP STITCHER Inhaled Oxygen Concentration - - Weight 112 kg (247 lb) 06/26/2018 5:58 PM STRAP STITCHER Height 180.3 cm (5' 11) 06/26/2018 5:58 PM STRAP STITCHER Body Mass Index 34.45 06/26/2018 5:58 PM STRAP STITCHER Plan of Treatment Not on file Care Teams Plastics Scientist Relationship Specialty Start Date End Date Post, Dave Wakefield PCP - General Internal Medicine 06/26/18
--- OUTSIDE RECORDS SUMMARY | 2023-12-18 14:23 | XMS_ITS | Continuity of Care Document ---
Author Name [facility] Organization [facility] Care Team Providers Care Projector Booth Operator Name Role Phone [facility] Unavailable Unavailable Problems Combined list of problems from Department of Defense and Veterans Affairs facilities. It does not include entries that were removed or entered in error. Problem Status Onset Date Problem Type Date of Resolution Comments Source Exposure to potentially hazardous substance ([facility] [id number]) Active 10/05/19 24 Condition Oct 05, 2023 Entered By: VIJI VIVAS Comment: [facility] CH[facility] Documentation Initiative [facility] Depressive Disorder NOS * (ICD-9-CM 311./300.4) Active Condition [facility] Diabetes mellitus (SNOMED [place] 86897495) Active Condition [facility] Diabetic neuropathy Active Condition [facility] Foot Pain (ICD-9-CM 719.47) Active Condition Aug 26 10 Entered By: MALINA WORLEY Comment: left 5th metatarsal fracture [facility] History of amputation of lesser toe Active Condition [facility] Hyperlipidemia (SNOMED [place] 37724997) Active Condition [facility] Hyperuricemia Active Condition [place] [facility] Osteopenia Active Condition [place] [facility] Other Iatrogenic Hypotension Active Condition [place] [facility] Personal History of Alcoholism (ICD-9-CM V11.3) Active Condition [facility] Tobacco user (SNOMED [place] 884031006) Active Condition [facility] Diagnosis: ICD-10-CM E11.42 Type 2 diabetes mellitus with diabetic polyneuropathy Active Diagnosis [facility] Diagnosis: ICD-10-CM E11.621 Type 2 diabetes mellitus with foot ulcer Active Diagnosis [facility] Diagnosis: ICD-10-CM Z77.29 Contact with and exposure to other hazardous substances Active Diagnosis [facility] Medications Combined list of outpatient medications from [...] DAY ORALLY ACTIVE FISH, CHARLEE A 2022 [facility] [facility] ASPIRIN 81MG TAB,EC TAKE ONE TABLET BY MOUTH EVERY DAY ORALLY ACTIVE JEFF CHOUDHARY ER A 2006 [facility] ATORVASTATI N [place] 40MG TAB TAKE ONE TABLET BY MOUTH EVERY DAY FOR CHOLESTE ROL ORALLY ACTIVE 04/11/2024 [id number] 4 FISH, CHARLEE A 2022 90 [facility] [place] 40MG TAB TAKE ONE TABLET BY MOUTH EVERY DAY FOR CHOLESTE ROL ORALLY DISCONT INUED 07/15/2023 [id number] 3 DEAN BRITO 2022 90 [facility] CHOLECALCIF QUINTIN TAB TAKE 5000 UNITS BY MOUTH EVERY DAY ORALLY ACTIVE ABE CHARLEE Robinson 2022 [facility] COENZYME Q10 CAP/TAB TAKE 1 CAPSULE BY MOUTH EVERY DAY ORALLY ACTIVE ABE CHARLEE A 2022 [facility] CYANOCOBALA MIN 1000MCG TAB TAKE ONE TABLET BY MOUTH EVERY DAY ORALLY ACTIVE DEAN BRITO 2021 [facility] DICLOFENAC NA 1% GEL,TOP APPLY 4 GRAMS TOPICALL Y FOUR TIMES A DAY NEEDED FOR JOINT PAIN TOPICA LLY ACTIVE 03/22/2024 [id number] 3 CHARLEE FISH A 2022 100 [facility] FINASTERIDE 5MG TAB TAKE ONE TABLET BY MOUTH EVERY DAY FOR PROSTATE ORALLY ACTIVE 04/11/2024 [id number] 4 CHARLEE FISH A 2022 90 [facility] FINASTERIDE 5MG TAB TAKE ONE TABLET BY MOUTH EVERY DAY FOR PROSTATE ORALLY DISCONT INUED 07/13/2023 [id number] 3 CHARLEE FISH A 2021 90 [facility] FISH OIL 1000MG (500MG DHA/EPA) CAP,ORAL TAKE 1 CAPSULE BY MOUTH TWICE A DAY ORALLY ACTIVE JEFF CHOUDHARY ER A 2006 [facility] INSULIN,GLA RGINE,HUMAN 100 UNIT/ML INJ,SOLOSTA R,3ML INJECT 22 UNITS UNDER THE SKIN AT BEDTIME FOR DIABETES SUBCUT ANEOUS DISCONT INUED (EDIT) 09/30/2023 [id number] 3 NAIDL,TOD D 2022 5 [facility] INSULIN,GLA RGINE-YFGN 100UNIT/ML INJ PEN,3ML INJECT 24 UNITS UNDER THE SKIN EVERY EVENING FOR DIABETES SUBCUT ANEOUS ACTIVE 08/29/2024 [id number] 4 NAIDL,TOD D 2023 5 [facility] INSULIN,GLA RGINE-YFGN 100UNIT/ML INJ PEN,3ML INJECT 22 UNITS UNDER THE SKIN AT BEDTIME FOR DIABETES SUBCUT ANEOUS DISCONT INUED (EDIT) 01/07/2024 [id number] 3 NAIDL,TOD D 2022 5 [facility] INSULIN,GLA RGINE-YFGN 100UNIT/ML INJ PEN,3ML INJECT 20 UNITS UNDER THE SKIN AT BEDTIME FOR DIABETES SUBCUT ANEOUS DISCONT INUED (EDIT) 12/08/2023 [id number] 3 NAIDL,TOD D 2022 5 [facility] INSULIN,GLA RGINE-YFGN 100UNIT/ML INJ PEN,3ML INJECT 18 UNITS UNDER THE SKIN AT BEDTIME FOR DIABETES SUBCUT ANEOUS DISCONT INUED (EDIT) 11/08/2023 [id number] 3 NAIDL,TOD D 2022 5 [facility] LIDOCAINE 4% CREAM,TOP APPLY MODERATE AMOUNT TOPICALL Y THREE TIMES A DAY FOR PAIN TOPICA LLY ACTIVE 03/22/2024 [id number] 3 CHARLEE FISH A 2022 30 [facility] MAGNESIUM OXIDE 400MG TAB TAKE ONE TABLET BY MOUTH EVERY DAY ORALLY ACTIVE FISHCHARLEE A 2022 [facility] MENTHOL/MET HYL SALICYLATE (10-15%) LOW CONC. CREAM,TOP APPLY THIN LAYER TOPICALL Y THREE TIMES A DAY FOR MUSCLE PAIN TOPICA LLY ACTIVE 03/22/2024 [id number] 3 ABERADHACHARLEE A 2022 90 [facility] METFORMIN HCL 1000MG TAB TAKE ONE TABLET BY MOUTH TWICE A DAY FOR DIABETES ORALLY ACTIVE 04/11/2024 [id number] 4 CHARLEE FISH 2022 180 [facility] METFORMIN HCL 1000MG TAB TAKE ONE TABLET BY MOUTH TWICE A DAY FOR DIABETES ORALLY DISCONT INUED 07/15/2023 [id number] 3 NAIDL,TOD D 2022 180 [facility] OMEPRAZOLE 20MG CAP,EC TAKE ONE CAPSULE BY MOUTH EVERY DAY ON AN EMPTY STOMACH, AT LEAST 30 MINUTES PRIOR TO A MEAL FOR GERD ORALLY ACTIVE 03/22/2024 [id number] 3 CHARLEE FISH 2022 90 [facility] SEMAGLUTIDE 0.5MG/0.375 ML INJ,SOLN,PE N,1.5ML INJECT 0.5MG UNDER THE SKIN EVERY WEEK FOR DIABETES SUBCUT ANEOUS DISCONT INUED (EDIT) 07/15/2023 [id number] 3 NAIDL,TOD D 2022 1 [facility] SEMAGLUTIDE 1MG/0.75ML INJ,SOLN,PE N,3ML INJECT 1MG UNDER THE SKIN EVERY WEEK FOR DIABETES SUBCUT ANEOUS ACTIVE 11/07/2024 [id number] 4 NAIDL,TOD D 2023 1 [facility] SEMAGLUTIDE 1MG/0.75ML INJ,SOLN,PE N,3ML INJECT 1MG UNDER THE SKIN EVERY WEEK FOR DIABETES SUBCUT ANEOUS DISCONT INUED 11/08/2023 [id number] 4 NAIDL,TOD D 2022 1 [facility] TAMSULOSIN HCL 0.4MG CAP TAKE ONE CAPSULE BY MOUTH EVERY EVENING ORALLY ACTIVE 04/13/2024 [id number] 4 FISHCHARLEE Bowers 2022 30 [facility] TAMSULOSIN HCL 0.4MG CAP TAKE ONE CAPSULE BY MOUTH EVERY EVENING ORALLY DISCONT INUED 04/11/2024 [id number] 3 CHARLEE FISH A 2022 90 [facility] TAMSULOSIN HCL 0.4MG CAP TAKE ONE CAPSULE BY MOUTH EVERY EVENING ORALLY DISCONT INUED 08/04/2023 [id number] 3 CHARLEE FISH 2022 90 [facility] TURMERIC CAP/TAB TAKE 500 MG BY MOUTH TWICE A DAY ORALLY ACTIVE MATTY POWERS 2018 [facility] Allergies, Adverse Reactions, Alerts Combined list [...] Site Reaction Lot Number CVX Code Drug Fiscal Economist Status Comments Source ZOSTER RECOMBINANT 2 2019 187 complet ed [facility] INFLUENZA, INJECTABLE, QUADRIVALENT, PRESERVATIVE FREE 2019 150 complet ed [facility] ZOSTER RECOMBINANT 1 2019 187 complet ed [facility] INFLUENZA, HIGH-DOSE, QUADRIVALENT 2019 197 complet ed [facility] INFLUENZA, SEASONAL, INJECTABLE, PRESERVATIVE FREE 2017 140 complet ed [facility] INFLUENZA, INJECTABLE, QUADRIVALENT, PRESERVATIVE FREE 2017 150 complet ed [facility] INFLUENZA, INJECTABLE, QUADRIVALENT, PRESERVATIVE FREE 2015 150 complet ed [facility] TDAP 2015 115 complet ed [place] [facility] PNEUMOCOCCAL CONJUGATE PCV 13 2015 133 complet ed [facility] TD (ADULT), 5 LF TETANUS TOXOID, PRESERVATIVE FREE, ADSORBED 2015 113 complet ed [facility] INFLUENZA, INJECTABLE, QUADRIVALENT, PRESERVATIVE FREE 2013 150 complet ed [facility] PNEUMOCOCCAL POLYSACCHARID E PPV23 [address] [facility] INFLUENZA, UNSPECIFIED FORMULATION [address] [facility] PNEUMOCOCCAL, UNSPECIFIED FORMULATION [address] [facility] TD(ADULT) UNSPECIFIED FORMULATION [address] [facility] TETANUS TOXOID, UNSPECIFIED FORMULATION [address] [facility] Results Combined list of recent chemistry, hematology [...] Aug 21, 2022 03:48 PM Reporting Lab: [facility] [address] Performing Lab: [facility] [address] [facility] BASIC METABOLIC PANEL+MG CREATININE [MASS/VOLUM E] IN SERUM OR PLASMA 1.2 0.7 - 1.2 03/22 Specimen Type: PLASMA No comment entered. Ordering Provider: ME LEEROY FISH Report Released Date/Time: Aug 21, 2022 03:48 PM Reporting Lab: [facility] [address] Performing Lab: [facility] [address] [facility] BASIC METABOLIC PANEL+MG UREA NITROGEN [MASS/VOLUM E] IN SERUM OR PLASMA 15 8 - 26 03/22 Specimen Type: PLASMA No comment entered. Ordering Provider: ME LEEROY FISH Report Released Date/Time: Aug 21, 2022 03:48 PM Reporting Lab: [facility] [address] Performing Lab: [facility] [address] [place] [facility] BASIC METABOLIC PANEL+MG GLUCOSE [MASS/VOLUM E] IN SERUM OR PLASMA 145 70 - 100 03/22 H Specimen Type: PLASMA No comment entered. Ordering Provider: ME LEEROY FISH Report Released Date/Time: Aug 21, 2022 03:48 PM Reporting Lab: [facility] [address] Performing Lab: [facility] [address] [place] [facility] BASIC METABOLIC PANEL+MG SODIUM [MOLES/VOLU ME] IN SERUM OR PLASMA 138 136 - 145 03/22 Specimen Type: PLASMA No comment entered. Ordering Provider: ME LEEROY FISH Report Released Date/Time: Aug 21, 2022 03:48 PM Reporting Lab: [facility] [address] Performing Lab: [facility] [address] [place] [facility] BASIC METABOLIC PANEL+MG POTASSIUM [MOLES/VOLU ME] IN SERUM OR PLASMA 4.5 3.5 - 5.1 03/22 Specimen Type: PLASMA No comment entered. Ordering Provider: ME LEEROY FISH Report Released Date/Time: Aug 21, 2022 03:48 PM Reporting Lab: [facility] [address] Performing Lab: [facility] [address] [place] [facility] BASIC METABOLIC PANEL+MG CHLORIDE [MOLES/VOLU ME] IN SERUM OR PLASMA 101 98 - 107 03/22 Specimen Type: PLASMA No comment entered. Ordering Provider: ME LEEROY FISH Report Released Date/Time: Aug 21, 2022 03:48 PM Reporting Lab: [facility] [address] Performing Lab: [facility] [address] [place] [facility] BASIC METABOLIC PANEL+MG CARBON DIOXIDE, TOTAL [MOLES/VOLU ME] IN SERUM OR PLASMA 27 22 - 29 03/22 Specimen Type: PLASMA No comment entered. Ordering Provider: ME LEEROY FISH Report Released Date/Time: Aug 21, 2022 03:48 PM Reporting Lab: [facility] [address] Performing Lab: [facility] [address] [place] [facility] BASIC METABOLIC PANEL+MG CALCIUM [MASS/VOLUM E] IN SERUM OR PLASMA 10.0 8.4 - 10.2 03/22 Specimen Type: PLASMA No comment entered. Ordering Provider: ME LEEROY FISH Report Released Date/Time: Aug 21, 2022 03:48 PM Reporting Lab: [facility] [address] Performing Lab: [facility] [address] [place] [facility] BASIC METABOLIC PANEL+MG MAGNESIUM [MASS/VOLUM E] IN SERUM OR PLASMA 1.9 1.6 - 2.6 03/22 Specimen Type: PLASMA No comment entered. Ordering Provider: ME LEEROY FISH Report Released Date/Time: Aug 21, 2022 03:48 PM Reporting Lab: [facility] [address] Performing Lab: [facility] [address] [place] [facility] BASIC METABOLIC PANEL+MG ANION GAP IN SERUM OR PLASMA 10 5 - 15 03/22 Specimen Type: PLASMA No comment entered. Ordering Provider: ME LEEROY FISH Report Released Date/Time: Aug 21, 2022 03:48 PM Reporting Lab: [facility] [address] Performing Lab: [facility] [address] [place] [facility] BASIC METABOLIC PANEL+MG GLOMERULAR FILTRATION RATE/1.73 SQ M.PREDICTED [VOLUME RATE/AREA] IN SERUM, PLASMA OR BLOOD BY CREATININE- BASED FORMULA (CKD-EPI 2020) 63 60 03/22 Specimen Type: PLASMA No comment entered. Ordering Provider: ME LEEROY FISH Report Released Date/Time: Aug 21, 2022 03:48 PM Reporting Lab: [facility] [address] Performing Lab: [facility] [address] [place] [facility] HEMOGLOBI N A1C HEMOGLOBIN A1C/HEMOGLO BIN.TOTAL [...] December 22, 2021 03:46 PM Reporting Lab: [facility] [address] Performing Lab: [facility] [address] [place] [facility] BASIC METABOLIC PANEL+MG CREATININE [MASS/VOLUM E] IN SERUM OR PLASMA 0.9 0.7 - 1.2 08/18 Specimen Type: PLASMA No comment entered. Ordering Provider: ME LEEROY FISH Report Released Date/Time: December 22, 2021 03:46 PM Reporting Lab: [facility] [address] Performing Lab: [facility] [address] [place] [facility] BASIC METABOLIC PANEL+MG UREA NITROGEN [MASS/VOLUM E] IN SERUM OR PLASMA 12 8 - 26 08/18 Specimen Type: PLASMA No comment entered. Ordering Provider: ME LEEROY FISH Report Released Date/Time: December 22, 2021 03:46 PM Reporting Lab: [facility] [address] Performing Lab: [facility] [address] [place] [facility] BASIC METABOLIC PANEL+MG GLUCOSE [MASS/VOLUM E] IN SERUM OR PLASMA 184 70 - 100 08/18 H Specimen Type: PLASMA No comment entered. Ordering Provider: ME LEEROY FISH Report Released Date/Time: December 22, 2021 03:46 PM Reporting Lab: [facility] [address] Performing Lab: [facility] [address] [place] [facility] BASIC METABOLIC PANEL+MG SODIUM [MOLES/VOLU ME] IN SERUM OR PLASMA 137 136 - 145 08/18 Specimen Type: PLASMA No comment entered. Ordering Provider: ME LEEROY FISH Report Released Date/Time: December 22, 2021 03:46 PM Reporting Lab: [facility] [address] Performing Lab: [facility] [address] [place] [facility] BASIC METABOLIC PANEL+MG POTASSIUM [MOLES/VOLU ME] IN SERUM OR PLASMA 3.9 3.5 - 5.1 08/18 Specimen Type: PLASMA No comment entered. Ordering Provider: ME LEEROY FISH Report Released Date/Time: December 22, 2021 03:46 PM Reporting Lab: [facility] [address] Performing Lab: [facility] [address] [place] [facility] BASIC METABOLIC PANEL+MG CHLORIDE [MOLES/VOLU ME] IN SERUM OR PLASMA 102 98 - 107 08/18 Specimen Type: PLASMA No comment entered. Ordering Provider: ME LEEROY FISH Report Released Date/Time: December 22, 2021 03:46 PM Reporting Lab: [facility] [address] Performing Lab: [facility] [address] [place] [facility] BASIC METABOLIC PANEL+MG CARBON DIOXIDE, TOTAL [MOLES/VOLU ME] IN SERUM OR PLASMA 26 22 - 29 08/18 Specimen Type: PLASMA No comment entered. Ordering Provider: ME LEEROY FISH Report Released Date/Time: December 22, 2021 03:46 PM Reporting Lab: [facility] [address] Performing Lab: [facility] [address] [place] [facility] BASIC METABOLIC PANEL+MG CALCIUM [MASS/VOLUM E] IN SERUM OR PLASMA 9.4 8.4 - 10.2 08/18 Specimen Type: PLASMA No comment entered. Ordering Provider: ME LEEROY FISH Report Released Date/Time: December 22, 2021 03:46 PM Reporting Lab: [facility] [address] Performing Lab: [facility] [address] [place] [facility] BASIC METABOLIC PANEL+MG MAGNESIUM [MASS/VOLUM E] IN SERUM OR PLASMA 1.6 1.6 - 2.6 08/18 Specimen Type: PLASMA No comment entered. Ordering Provider: ME LEEROY FISH Report Released Date/Time: December 22, 2021 03:46 PM Reporting Lab: [facility] [address] Performing Lab: [facility] [address] [place] [facility] BASIC METABOLIC PANEL+MG ANION GAP IN SERUM OR PLASMA 9 5 - 15 08/18 Specimen Type: PLASMA No comment entered. Ordering Provider: ME LEEROY FISH Report Released Date/Time: December 22, 2021 03:46 PM Reporting Lab: [facility] [address] Performing Lab: [facility] [address] [place] [facility] BASIC METABOLIC PANEL+MG GLOMERULAR FILTRATION RATE/1.73 SQ M.PREDICTED [VOLUME RATE/AREA] IN SERUM, PLASMA OR BLOOD BY CREATININE- BASED FORMULA (CKD-EPI) 89 60 08/18 Specimen Type: PLASMA No comment entered. Ordering Provider: ME LEEROY FISH Report Released Date/Time: December 22, 2021 03:46 PM Reporting Lab: [facility] [address] Performing Lab: [facility] [address] [place] [facility] HEMOGLOBI N A1C HEMOGLOBIN A1C/HEMOGLO BIN.TOTAL IN BLOOD 8.2 4.0 - 6.0 12/22 H Specimen Type: BLOOD No comment entered. Ordering Provider: ME LEEROY FISH Report Released Date/Time: Aug 03, 2021 01:53 PM Reporting Lab: [facility] [address] Performing Lab: [facility] [address] [place] [facility] BASIC METABOLIC PANEL+MG CREATININE [MASS/VOLUM E] IN SERUM OR PLASMA 1.1 0.7 - 1.2 12/22 Specimen Type: PLASMA No comment entered. Ordering Provider: ME LEEROY FISH Report Released Date/Time: Aug 03, 2021 01:53 PM Reporting Lab: [facility] [address] Performing Lab: [facility] [address] [place] [facility] BASIC METABOLIC PANEL+MG UREA NITROGEN [MASS/VOLUM E] IN SERUM OR PLASMA 15 8 - 26 12/22 Specimen Type: PLASMA No comment entered. Ordering Provider: ME LEEROY FISH Report Released Date/Time: Aug 03, 2021 01:53 PM Reporting Lab: [facility] [address] Performing Lab: [facility] [address] [place] [facility] BASIC METABOLIC PANEL+MG GLUCOSE [MASS/VOLUM E] IN SERUM OR PLASMA 174 74 - 100 12/22 H Specimen Type: PLASMA No comment entered. Ordering Provider: ME LEEROY FISH Report Released Date/Time: Aug 03, 2021 01:53 PM Reporting Lab: [facility] [address] Performing Lab: [facility] [address] [place] [facility] BASIC METABOLIC PANEL+MG SODIUM [MOLES/VOLU ME] IN SERUM OR PLASMA 141 136 - 145 12/22 Specimen Type: PLASMA No comment entered. Ordering Provider: ME LEEROY FISH Report Released Date/Time: Aug 03, 2021 01:53 PM Reporting Lab: [facility] [address] Performing Lab: [facility] [address] [place] [facility] BASIC METABOLIC PANEL+MG POTASSIUM [MOLES/VOLU ME] IN SERUM OR PLASMA 4.2 3.5 - 5.1 12/22 Specimen Type: PLASMA No comment entered. Ordering Provider: ME LEEROY FISH Report Released Date/Time: Aug 03, 2021 01:53 PM Reporting Lab: [facility] [address] Performing Lab: [facility] [address] [place] [facility] BASIC METABOLIC PANEL+MG CHLORIDE [MOLES/VOLU ME] IN SERUM OR PLASMA 101 98 - 107 12/22 Specimen Type: PLASMA No comment entered. Ordering Provider: ME LEEROY FISH Report Released Date/Time: Aug 03, 2021 01:53 PM Reporting Lab: [facility] [address] Performing Lab: [facility] [address] [place] [facility] BASIC METABOLIC PANEL+MG CARBON DIOXIDE, TOTAL [MOLES/VOLU ME] IN SERUM OR PLASMA 30 22 - 29 12/22 H Specimen Type: PLASMA No comment entered. Ordering Provider: ME LEEROY FISH Report Released Date/Time: Aug 03, 2021 01:53 PM Reporting Lab: [facility] [address] Performing Lab: [facility] [address] [place] [facility] BASIC METABOLIC PANEL+MG CALCIUM [MASS/VOLUM E] IN SERUM OR PLASMA 10.1 8.4 - 10.2 12/22 Specimen Type: PLASMA No comment entered. Ordering Provider: ME LEEROY FISH Report Released Date/Time: Aug 03, 2021 01:53 PM Reporting Lab: [facility] [address] Performing Lab: [facility] [address] [place] [facility] BASIC METABOLIC PANEL+MG MAGNESIUM [MASS/VOLUM E] IN SERUM OR PLASMA 1.8 1.6 - 2.6 12/22 Specimen Type: PLASMA No comment entered. Ordering Provider: ME LEEROY FISH Report Released Date/Time: Aug 03, 2021 01:53 PM Reporting Lab: [facility] [address] Performing Lab: [facility] [address] [place] [facility] BASIC METABOLIC PANEL+MG ANION GAP IN SERUM OR PLASMA 10 5 - 15 12/22 Specimen Type: PLASMA No comment entered. Ordering Provider: ME LEEROY FISH Report Released Date/Time: Aug 03, 2021 01:53 PM Reporting Lab: [facility] [address] Performing Lab: [facility] [address] [place] [facility] BASIC METABOLIC PANEL+MG CREAT EGFR(CKD-EP I) 70 60 12/22 Specimen Type: PLASMA No comment entered. Ordering Provider: ME LEEROY FISH Report Released Date/Time: Aug 03, 2021 01:53 PM Reporting Lab: [facility] [address] Performing Lab: [facility] [address] [facility] [address] [place] [facility] Vital Signs Combined list of inpatient [...] DC Date Status Disposition Source [place] [facility] Outpatient Encounter [id number] 06/14 [facility] [place] [facility] Outpatient Encounter [id number] 06/16 [facility] [place] [facility] Outpatient Encounter [id number] [facility]OD[facility]IGUEZ [facility] En[facility] [id number] [facility]FFIN [facility] HC PRO PHONE CALL 11-20 MIN [id number] Diagnos is: ICD-10- CM E11.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
NAIDLKARI 07/14 [facility] [place] [facility] Outpatient Encounter [id number] SATINDER SMITH 07/21 [facility] [place] [facility] OFFICE O/P EST MOD 30-39 MIN [id number] Diagnos is: ICD-10- CM E11.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
Rhiannon FISH 08/18 [facility] [place] [facility] Outpatient Encounter [id number] 08/21 [facility] [place] [facility] HC PRO PHONE CALL 11-20 MIN [id number] Diagnos is: ICD-10- CM E11.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
NAIDL,KARI 08/29 [place] [facility] HC PRO PHONE CALL 11-20 MIN [id number] Diagnos is: ICD-10- CM E11.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
NAIDL,KARI 09/29 [place] [facility] HC PRO PHONE CALL 21-30 MIN [id number] Diagnos is: ICD-10- CM E11.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
NAIDL,KARI 11/07 [facility] PRO PHONE CALL 11-20 MIN [id number] [phone] Diagnos is: ICD-10- CM E11.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
NAIDL,KARI 12/07 [facility] Outpatient Encounter [id number] Diagnos is: ICD-10- CM Z77.29 Contact with and exposur e to other [facility]<br/ > JEANINE,MATH ILDE J 12/27 [facility] Outpatient Encounter [id number] Diagnos is: ICD-10- CM Z77.29 Contact with and exposur e to other [facility]<br/ > JEANINE,MATH ILDE J 12/27 [facility] HC PRO PHONE CALL 11-20 MIN [id number] [phone] Diagnos is: ICD-10- CM E11.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
NAIDL,KARI 01/06 [place] [facility] Outpatient Encounter [id number] [phone] 03/10 [place] [place] [facility] HC PRO PHONE CALL 11-20 MIN [phone] Diagnos is: ICD-10- CM E11.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
NAIDL,KARI 03/14 [place] [facility] [place] [facility] OFFICE O/P EST LOW 20-29 MIN [phone] Diagnos is: ICD-10- CM E11.621 Type 2 diabete s mellitu s with foot ulcer<b r/> Rhiannon FISH 03/22 [place] [facility] HC PRO PHONE CALL 21-30 MIN [phone] Diagnos is: ICD-10- CM E11.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
NAIDL,KARI 04/18 [place] [facility] [place] [facility] HC PRO PHONE CALL 21-30 MIN [phone] Diagnos is: ICD-10- CM E11.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
NAIDL,KARI 07/11 [place] [facility] [place] [facility] MTMS BY PHARM ADDL 15 MIN [id number] [phone] Diagnos is: ICD-10- CM E11.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
NAIDL,KARI 08/29 [place] [facility] [place] [facility] MTMS BY PHARM EST 15 MIN [phone] Diagnos is: ICD-10- CM E11.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
AWSOLEDAD BUCKLEY L 10/10 [place] [facility] [place] [facility] Outpatient Encounter [id number] [phone] 10/16 [facility] [place] [facility] MTMS BY PHARM EST 15 MIN [id number] [phone] Diagnos is: ICD-10- CM E11.621 Type 2 diabete s mellitu s with foot ulcer<b r/> NAIDL,KARI 11/06 [facility] MTMS BY PHARM ADDL 15 MIN [id number] [phone] Diagnos is: ICD-10- CM E11.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
NAIDL,KARI 11/22 [facility] Social History Combined list of available smoking, tobacco, and other social history from Department of Defense and Veterans Affairs facilities. Social History Type Response Date Comment Sourc e Tobacco smoking status NHIS CA-TOBACCO QUIT 15 YRS OR MORE 08/18/2022 [facility] History of tobacco use CA-TOBACCO FORMER USER 08/18/2022 [facility] History of tobacco use CA-TOBACCO FORMER USER 05/03/2021 [facility] History of tobacco use CA-TOBACCO FORMER USER 04/21/2020 [facility] 01/18/2024 AMBULATORY - NONE AMBULATORY - NONE [facility] Advance Directives List of completed, amended, or rescinded Advance Directives on record at Department of [facility] facilities. An actual copy of the Directive is not included. Date Advance Directive Provider Source 06/22/2021 ADVANCE DIRECTIVE DISCUSSION ALLYSON GRAF [facility] 06/22/2021 ADVANCE DIRECTIVE ALLYSON GRAF [facility] 03/09/2007 ADVANCE DIRECTIVE SOLEDAD WOLFF [facility]
--- OUTSIDE RECORDS SUMMARY | 2023-12-18 14:23 | XMS_ITS | Clinical Summary ---
Author Name Unknown Organization [facility] Address [place], [place] [address] Care Team Providers Care Clothing Sorter Name Role Phone Post, Dave Velazquez MD Primary Care Provider Moshe Enciso MD Unavailable [phone] Arie Justin MD Unavailable [phone] [facility], [facility] Unavailable Murali Hoover DPM Unavailable [phone] Allergies No known active allergies Medications [...] to Care Guide Pamella Brennan Phone number [phone]. Alcohol abuse 06/02/2010 03/26/2019 Overview: Sober since 2001. Great success with AA. 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 10/06/2023 Pyogenic arthritis of left shoulder region 06/17/2022 Encounters Date Type Department Care Team Description 11/28/2023 Telephone [facility] [place] [address] [place] [address] [place] [address] Post, Dave Velazquez MD Outside Order 11/03/2023 11:00 AM CDT Office Visit [facility] [place] [address] [place] [address] Post, Dave Velazquez MD Form (diabetic shoes) 11/03/2023 Travel 10/25/2023 1:00 PM CDT Orders Only [facility] [address] [place] [address] Lab, [facility] 10/25/2023 Travel 10/06/2023 1:30 PM FUR BUYER Phone Office Visit [facility] [place] [address] [place] [address] Post, Dave Velazquez MD 10/03/2023 Travel from [...] 36.7 ??C (98 ??F) 06/29/2022 8:43 AM FUR BUYER Respiratory Rate 18 06/29/2022 8:43 AM FUR BUYER Oxygen Saturation 96% 07/21/2023 1:34 PM FUR BUYER Inhaled Oxygen Concentration - - Weight 107 kg (236 lb) 11/03/2023 11:13 AM CDT w ith shoes Height 180.3 cm (5' 10.98) 07/21/2023 1:[address] Body Mass Index 32.93 07/21/2023 1:34 PM FUR BUYER Plan of Treatment Health Maintenance Due Date [...] 07/16/2020, 04/21/2020 Medical Devices Implanted Type Area Shift Nurse Manager Device Identifier Shelf Expiration Date Model / Serial / Lot [id number] - [id number] Implanted:Qty: 1 on 09/20/2021 at [facility] Right: Foot [employer] AR-8725-4 4H / / Description:COMPRESSION FT S CREWS CANNULATED, 2.5 MICRO 44MM LOAD 4 [id number] [facility]-1530p - [id number] Implanted:Qty: 1 on 09/20/2021 at [facility] Right: Foot [employer] 03/30/2025 AR-1530P- CP / / [id number] Description:FOREFOOT INTERNA L BRACE IMPLANT SYSTEM, PEEK Screw 4.41x90cj Bio Compositetenodesis Disp Train Examiner Pk - [id number] Implanted:Qty: 1 on 09/20/2021 at [facility] Right: Foot [employer] 08/30/2022 AR-1547CD S / / [id number] Ancr Sut 1.3mm Dx Fibertak Suturetape 2 Ndl 26.2mm 08/01 [facility] - [id number] Implanted:Qty: 1 on 09/20/2021 at [facility] Right: Foot [employer] 06/29/2026 AR-8990ST / / [id number] Explanted Type Area Shift Nurse Manager Device Identifier Shelf Expiration Date Model / Serial / Lot Wire Kirs .[id number] Smooth6/Pk Depuy/Héctor - [id number] Explanted:Qty: 1 on 09/20/2021 at [facility] Right: Foot [employer] [id number] / / Description:LOAD 4 8 [id number] [facility]-8737-40 - [id number] Explanted:Qty: 1 on 09/20/2021 at [facility] Right: Foot [employer] AR-8737-40 / / Description:2.5 MICRO COMPRE SSION FT DRILLS AND DISPOSABLES, GUIDEWIRE W TROCAR TIP, THREADED, 0.34 IN (.86MM) LOAD 4 7 [id number] Procedures Procedure Name Priority Date/Time Associated Diagnosis [...] diabetes mellitus with diabetic neuropathy, unspecified whether terminal gauger insulin use (HC) CT CHEST PE STUDY Routine 05/10/2022 7:5 0 PM CDT OCCULT BLOOD IFOBT STOOL Routine 07/03/2013 7:00 PM FUR BUYER Screening for colon cancer from Last 3 Months or Most Recently Relevant to Health Maintenance Results * (ABNORMAL) CBC WITH AUTO DIFFERENTIAL (10/25/2023 12:59 PM CDT) WHITE BLOOD COUNT 8.1 4.5 - 11.0 thou/cu mm 10/25/2023 1:36 PM CDT [facility] RED BLOOD COUNT 4.53 4.30 - 5.90 mil/cu mm 10/25/2023 1:36 PM CDT [facility] HEMOGLOBIN 12.4(L) 13.5 - 17.5 g/dL 10/25/2023 1:36 PM CDT [facility] HEMATOCRIT 38.9 37.0 - 53.0 % 10/25/2023 1:36 PM CDT [facility] MCV 86 80 - 100 fL 10/25/2023 1:36 PM CDT [facility] MCH 27.4 26.0 - 34.0 pg 10/25/2023 1:36 PM CDT [facility] MCHC 31.9(L) 32.0 - 36.0 g/dL 10/25/2023 1:36 PM CDT [facility] RDW 16.5(H) 11.5 - 15.5 % 10/25/2023 1:36 PM CDT [facility] PLATELET COUNT 175 140 - 440 thou/cu mm 10/25/2023 1:36 PM CDT [facility] MPV 10.3 6.5 - 11.0 fL 10/25/2023 1:36 PM CDT [facility] % NEUT 66.6 % 10/25/2023 1:36 PM CDT [facility] % LYMPH 21.6 % 10/25/2023 1:36 PM CDT [facility] % MONO 7.3 % 10/25/2023 1:36 PM CDT [facility] % EOS 4.3 % 10/25/2023 1:36 PM CDT [facility] % BASO 0.2 % 10/25/2023 1:36 PM CDT [facility] ABSOLUTE NEUTROPHILS 5.4 1.7 - 7.0 thou/cu mm 10/25/2023 1:36 PM CDT [facility] ABSOLUTE LYMPHOCYTES 1.7 0.9 - 2.9 thou/cu mm 10/25/2023 1:36 PM CDT [facility] ABSOLUTE MONOCYTES 0.6 <0.9 thou/cu mm 10/25/2023 1:36 PM CDT [facility] ABSOLUTE EOSINOPHILS 0.4 <0.5 thou/cu mm 10/25/2023 1:36 PM CDT [facility] ABSOLUTE BASOPHILS 0.0 <0.3 thou/cu mm 10/25/2023 1:36 PM CDT [facility] Blood BLOOD SPECIMEN / Unknown Venipuncture / Unknown 10/25/2023 12:59 PM CDT 10/25/2023 12:59 PM CDT Narrative [facility] - 10/25/2023 1:36 PM CDT This procedure was originally ordered at [facility]. This procedure was originally ordered at [facility]. Dave Garrett MD HEMATOLOGY [facility] [address] [place] [address], * TSH WITH REFLEX (10/25/2023 12:59 PM CDT) TSH 1.43 0.27 - 4.20 uIU/mL 10/25/2023 10:26 PM CDT [facility] Blood BLOOD SPECIMEN / Unknown Venipuncture / Unknown 10/25/2023 12:59 PM CDT 10/25/2023 12:59 PM CDT Narrative [facility] - 10/25/2023 10:26 PM CDT In Adults, TSH values between 5.00 and 10.00 uIU/ml do not necessarily indicate the presence of Hypothyroidism. Correlation with clinical findings such as presence of goiter and/or Thyroperoxidase (TPO) Antibody may be helpful. For more information please refer to LOWELL 2004; 291: 228-238. Dave Garrett MD CHEMISTRY Performing Organization Address [facility] Co de Phone Number [facility] [address] [place] [address], * (ABNORMAL) Creatinine (10/25/2023 12:59 PM CDT) eGFR 71(L) >90 mL/min/1.7 3m2 10/25/2023 10:26 PM CDT [facility] Comment:As of 2021, eG FR is calculated by the CKD-EPI creatinine equation without race adjustment. ??eGFR can be influenced by muscle mass, exercise, and diet. ??The reported eGFR is an estimation only and is only applicable if the renal function is stable. CREATININE 1.08 0.70 - 1.20 mg/dL 10/25/2023 10:26 PM CDT [facility] Blood BLOOD SPECIMEN / Unknown Venipuncture / Unknown 10/25/2023 12:59 PM CDT 10/25/2023 12:59 PM CDT Dave Garrett MD CHEMISTRY Performing Organization Address [facility]/ZIP Co de Phone Number [facility] [address] [place] [id number], * (ABNORMAL) Hemoglobin A1c (monitoring) (10/25/2023 12:59 PM CDT) HEMOGLOBIN A1C MONITORING (POCT) 7.9(H) <=6.4 % 10/25/2023 3:27 PM CDT [facility] Blood BLOOD SPECIMEN / Unknown Venipuncture / Unknown 10/25/2023 12:59 PM CDT 10/25/2023 12:59 PM CDT Narrative [facility] - 10/25/2023 3:27 PM CDT ? (<=6.9%) [...] Dave Garrett MD CHEMISTRY Performing Organization Address [facility] de Phone Number [facility] [address] [place] [address], * CT Chest PE study TODAY (05/10/2022 [...] Occult Blood Stool (IFOBT) (07/03/2013 7:00 PM FUR BUYER) STOOL BLOOD ,IFOBT Negative Negative, Invalid 07/04/2013 3:03 PM FUR BUYER [facility] Stool specimen (specimen) STOOL SPECIMEN / Unknown Non-Blood / Unknown 07/03/2013 7:00 PM FUR BUYER 07/04/2013 2:39 PM FUR BUYER Dave Garrett MD LABORATORY [facility] [address] [place] [address] from Last 3 Months or Most Recently Relevant to Health Maintenance Advance Directives Documents on File Type Date 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 Healthcare Directive 05/21/2021 3:50 PM [...] Code Status Discussion: Reviewed Preferences Care Teams Clothing Sorter Relationship Specialty Start Date End Date Post, Dave Velazquez MD PCP - General 06/02/10 Moshe Enciso MD [address] [place], [place] [address] Endocrinology Endocrinology 01/04/18 [place] [address] [facility] [address] [place], [place] [id number] Surgery - Ophthalmology 03/22/18 [facility], [facility] [address] [facility] [address] [place], [place] [id number] 06/08/21 Murali Hoover, DPM [address] [place] [address] Surgery - Podiatric 01/03/23
--- OUTSIDE RECORDS SUMMARY | 2023-12-18 14:24 | XMS_ITS | Data Portability ---
Author Name Unknown Address [address] [place] [address] Phone [phone] Organization [facility] Address [address] [place] [address] Care Team Providers Care Rubber Compounder Name Role Phone POST, SUE Primary Care [...] to efficacy (6+ months) and side effects [email or web address] Not available 06/16/2022 18:10:42 06/30/2022 06/30/2022 77M [...] of Hospitaliza tion for UTI. 2022 023 [facility], [address], [place], [address], 3 10:05:08 urinalysis, dipstick 2022 023 [facility], [address], [place], [address], 3 12:03:37 Referral None recorded. Procedures None recorded. Surgeries None recorded. Imaging None recorded. Medication Orders tamsulosin 0.4 mg capsule 2021 022 [email or web address] 2 [facility], [address] [facility] , [place], [address], 2 18:25:29 finasteride 5 mg tablet 2021 022 [email or web address] 2 [facility], [address], [place], [address], 2 18:25:29 Patient TargetsNo targets recorded. Patient Instructions Encounter Date Encounter Id Patient Instructions Last Modified By Organization Details Last Modified Time 11/04/2022 [id number] Pt has F/U appt with Dr Barrientos in [place] on 11/11/2022 @ 3:10pm to review UDS. Not available 10/19/2022 15:50:04 09/23/2022 [id number] Patient to call clinic with questions or concerns. Advised patient to increase water intake and to keep 4 week appointment for next catheter change. [email or web address] Not available 09/23/2022 13:22:30 08/03/2022 [id number] Will reach out t o [place] about patient [email or web address] Not available 08/03/2022 11:17:30 Reason for Referral None Reported. Results Created Date Observation Date Name Description Value Unit Range Abnormal Flag LastModifiedBy Organization Detail LastModifiedTime 11/05/1911/04/2022 URINE CULTU RE final report MICROB IOLOGY RESULT S abnormal Not Available [facility] [address], [place], [address], 11/07/2022 10:05:08 11/05/19 23 11/04/2022 urina lysis , dipst ick Color-Status Straw Not Available [facility] [address], [place], [address], 11/04/2022 12:02:10 11/05/19 23 11/04/2022 urina lysis , dipst ick Clarity-Stat us Slight ly Cloudy Not Available [facility] [address], [place], [address], 11/04/2022 12:02:10 11/05/19 23 11/04/2022 urina lysis , dipst ick Glucose-Stat us 500 Not Available [facility] [address], [place], [address], 11/04/2022 12:02:10 11/05/19 23 11/04/2022 urina lysis , dipst ick Bilirubin-St atus Negati ve Not Available [facility] [address], [place], [address], 11/04/2022 12:02:10 11/05/19 23 11/04/2022 urina lysis , dipst ick Ketones-Stat us Negati ve Not Available [facility] [address], [place], [address], 11/04/2022 12:02:10 11/05/19 23 11/04/2022 urina lysis , dipst ick Sp Mesa-Stat us 1.015 Not Available [facility] [address], [place], [address], 11/04/2022 12:02:10 11/05/19 23 11/04/2022 urina lysis , dipst ick pH-Status 6.5 Not Available [facility] [address], [place], [address], 11/04/2022 12:02:10 11/05/19 23 11/04/2022 urina lysis , dipst ick Protein-Stat us 5.0 Not Available [facility] [address], [place], [address], 11/04/2022 12:02:10 11/05/19 23 11/04/2022 urina lysis , dipst ick Urobilinogen -Status 0.2 Not Available [facility] [address], [place], [address], 11/04/2022 12:02:10 11/05/19 23 11/04/2022 urina lysis , dipst ick Nitrates-Sta tus positi ve Not Available [facility] [address], [place], [address], 11/04/2022 12:02:10 11/05/19 23 11/04/2022 urina lysis , dipst ick Blood-Status Large Not Available [facility] [address], [place], [address], 11/04/2022 12:02:10 11/05/19 23 11/04/2022 urina lysis , dipst ick Leuko-Status Large Not Available [facility] [address], [place], [address], 11/04/2022 12:02:10 11/05/19 23 11/04/2022 urina lysis , dipst ick Specimen Type Cathet erized Not Available [facility] [address], [place], [address], 11/04/2022 12:02:10 11/05/19 23 11/04/2022 urina lysis , dipst ick Performed by Jake ross Not Available [facility] [address], [place], [address], 11/04/2022 12:02:10 Result Notes None recorded. Problems Name Status Onset Date Resolution Date Notes Provider Name and Address Organization Details Recorded Time Retention of urine Active 3 Jenna song [facility] 10/21/2022 13:15:43 Problem Notes None recorded. Procedures Surgical History Date Name Laterality Status Provider Name and Address Organization Details Recorded Time 3 Fill and Pull/Voiding Trial/TOV completed OLMAN Chappell [facility] 12/09/2022 11:59:45 3 Urodynamic Studies completed Deyanira song [facility] 11/04/2022 12:19:38 3 Terry Catheter Insertion completed Deyanira song [facility] 11/04/2022 12:21:21 3 Urethral Catheter Change completed Jenna Harris null, [facility] 10/21/2022 13:18:32 3 Urethral Catheter Change completed Nenita Flores null, [facility] 09/23/2022 13:21:12 3 Terry Catheter Insertion completed Roula Beltran null, [facility] 08/03/2022 11:16:51 3 Fill and Pull/Voiding Trial/TOV completed Roula Beltran null, [facility] 08/03/2022 11:16:41 2 Cystoscopy- male completed Kristopher Barrientos MD, PHD [address] [place] [address],[address], [place], [address], [facility] 06/30/2022 09:37:30 2 Urethral Catheter Change completed Carlos Mix null, [facility] 06/30/2022 09:49:15 2 Terry Catheter Insertion completed Еленаarminda Josue null, [facility] 06/16/2022 15:03:22 2 Fill and Pull/Voiding Trial/TOV completed Roula Tony PA-C [address] [place] [address], [address], [facility] 06/16/2022 18:06:50 Cataract Surgery completed Holtarminda Josue [facility] 06/16/2022 12:30:25 Orthopedic Surgery completed Holtarminda Josue [facility] 06/16/2022 12:30:33 Imaging Results None [...] Updated DateTime 06/16/2022 180.34 cm 30 kg/m2 16182.36 g Juanito Josue [facility] 06/16/2022 12:27:07 Date Recorded Body height Provider Name an d Address Organization Details Last Updated DateTime 06/30/2022 180.34 cm Carlos Mix [facility] 1 08/31/2021 09:27:04 Date Recorded Body height Provider Name an d Address Organization Details Last Updated DateTime 09/23/2022 180.34 cm Nenita Flores [facility] 09/23/2022 13:17:39 Date Recorded Body height Body mass index (BMI) Body weight Provider Name and Address Organization Details Last Updated DateTime 11/11/2022 180.34 cm 30 kg/m2 51905.36 g Amanda Molina [facility] 11/11/2022 16:25:51 Social History Question Answer Notes LastModified by Organizat ion Details LastModified Time Tobacco Smoking Status Former Smoker Juanito song, [facility] 06/16/2022 12:29:38 What Is Your Level [...] Pressure N Kidney Stones N Cancer N Lung Disease N Depression N High Cholesterol N GERD/Acid Reflux N Heart Disease Y Past Encounters Encounter ID Performer Location Encounter Start Date Encounter Closed Date Diagnosis/Indication Diagnosis SNOMED-CT Code [id number] Roula Tony PA-C [facility] [address] [place] [address] 06/16/2022 11:30:09 06/20/2022 08:36:10 Retention of urine [id number] Benign pro static hyperplasia with outflow obstruction [id number] Kristopher bains MD, PHD [facility] [address] [place] [address] 06/30/2022 08:46:23 07/04/2022 11:29:58 Retention of urine [id number] Benign pro static hyperplasia with outflow obstruction [id number] Roula Beltran [facility] [address] [place] [address] 08/03/2022 10:27:16 08/05/2022 11:54:14 Retention of urine [id number] Nenitaaranza Flores [facility] [address] [place] [address] 09/23/2022 10:30:04 09/26/2022 14:37:37 [id number] Kristopher bains MD, PHD [facility] [address] [place] [address] 11/04/2022 10:41:00 11/10/2022 13:37:32 Benign prostatic hyperplasia with outflow obstruction 101211059 Retention of urine 19680 4002 Microscopic hematuria 19 7079586 [id number] Jenna Steven [facility] [address] [place] [address] 10/21/2022 11:27:55 10/24/2022 11:49:09 Retention of urine [id number] Kristopher bains MD, PHD [facility] [address] [place] [address] 11/11/2022 16:25:28 11/17/2022 17:02:38 Retention of urine [id number] Benign pro static hyperplasia with outflow obstruction [id number] Jenna Harris [facility] [address] [address] 12/09/2022 10:56:01 12/12/2022 15:10:14 Retention of urine 418863422 Health Concerns Section Related Observation LastModified by Organization Detai ls LastModified Time None Recorded Concern Status LastModified by Organization Details LastModified Time None Recorded Advance Directives Directive None Recorded Payers Encounter Date Sequence Insurance Name Policy Number Policy Molina Covered Member ID Molina Member ID Guarantor Name 12/09/2022 1 [place] [employer] Tom B Renaux [id number] Tom B Renaux 12/09/2022 2 [place] [id number] Tom B Renaux [id number] Tom B Renaux 11/11/2022 1 [place] [employer] Tom B Renaux [id number] Tom B Renaux 11/11/2022 2 [place] [id number] Tom B Renaux [id number] Tom B Renaux 11/04/2022 1 [place] [employer] Tom B Renaux [id number] Tom B Renaux 11/04/2022 2 [place] [id number] Tom B Renaux [id number] Tom B Renaux 10/21/2022 1 [place] [employer] Tom B Renaux [id number] Tom B Renaux 10/21/2022 2 [place] [id number] Tom B Renaux [id number] Tom B Renaux 09/23/2022 1 [place] [employer] Tom B Renaux [id number] Tom B Renaux 09/23/2022 2 [place] [id number] Tom B Renaux [id number] Tom B Renaux 08/03/2022 1 [place] [employer] Tom B Renaux [id number] Tom B Renaux 08/03/2022 2 [place] [id number] Tom B Renaux [id number] Tom B Renaux 06/30/2022 1 [place] [employer] Tom B Renaux [id number] Tom B Renaux 06/30/2022 2 [place] [id number] Tom B Renaux [id number] Tom B Renaux 06/16/2022 1 [place] [employer] Tom B Renaux [id number] Tom B Renaux 06/16/2022 2 [place] [id number] Tom B Renaux [id number] Tom B Renaux Notes Date Note Type Note Provider Name and Address Organization Details Recorded Time 06/16/2022 text/html HPI Notes: 77M w ith urinary retention. Here with . Recent hospitalization at [facility] from 04/30-05/30 for MSSA bacteremia with [...] Tobacco: EtOH: FHx: Roula Tony PA-C [address], [place], [address], [facility] 06/16/2022 18:10:53 06/30/2022 text/html HPI Notes: 77M w ith urinary retention. Here for cysto. Saw LILIBETH Nix. Recent hospitalization at [facility] from 04/30-05/30 for MSSA bacteremia with [...] EtOH: FHx: Kristopher Barrientos MD, PHD [address], [place], [address], [facility] 06/30/2022 14:06:37 09/23/2022 text/html [...] for next catheter change. Nenita Flores nohemi [facility] 09/23/2022 13:22:32 10/21/2022 text/html HPI Notes: Pt he re for catheter change Jenna Harris nohemi, [facility] 10/21/2022 13:21:54 11/11/2022 text/html HPI Notes: 77M w ith urinary retention. Hospitalization at [facility] from 04/30-05/30 for MSSA bacteremia with [...] their care. Kristopher Barrientos MD, PHD [address], [place], [address], [facility] 11/11/2022 17:49:57 12/09/2022 text/html HPI Notes: Pt of Dr PALMER, here for TOV recommended at 11/11/22 visit OLMAN Chappell - [facility] 12/09/2022 12:43:22
== END 2023-12-18 14:22 | disposition home or self-care (01) ==
LOC: WOUND 14:21
PROVIDERS: Visit Provider Nurse Practitioner Family
DX: E11.621 Type 2 diabetes mellitus with foot ulcer (principal); L97.412 Non-pressure chronic ulcer of right heel and midfoot with fat layer exposed; I87.2 Venous insufficiency (chronic) (peripheral); Z79.4 Long term (current) use of insulin; Z79.84 Long term (current) use of oral hypoglycemic drugs
CPT/HCPCS: 97602; G0463

== ENCOUNTER 2024-01-01 14:17 | Outpatient (CLI) | payer MEDICARE, BC, SELFPAY ==
--- OUTSIDE RECORDS SUMMARY | 2024-01-01 14:20 | XMS_ITS | Continuity of Care Document ---
Author Name [facility] Organization [facility] Care Team Providers Care Vice Chair Name Role Phone [facility] Unavailable Unavailable Problems Combined list of problems from Department of Defense and Veterans Affairs facilities. It does not include entries that were removed or entered in error. Problem Status Onset Date Problem Type Date of Resolution Comments Source Exposure to potentially hazardous substance ([facility] [id number]) Active 10/05/19 24 Condition Oct 05, 2023 Entered By: VIJI VIVAS Comment: [facility] Documentation Initiative [facility] Depressive Disorder NOS * (ICD-9-CM 311./300.4) [address] [facility] Diabetes mellitus (SNOMED CT 72601252) Active Condition [facility] Diabetic neuropathy Active Condition [facility] Foot Pain (ICD-9-CM 719.47) Active Condition Aug 26 10 Entered By: MALINA WORLEY Comment: left 5th metatarsal fracture [facility] History of amputation of lesser toe Active Condition [facility] Hyperlipidemia (SNOMED CT 85726002) Active Condition [facility] Hyperuricemia Active Condition [facility] Osteopenia Active Condition [facility] Other Iatrogenic Hypotension Active Condition [facility]) Personal History of Alcoholism (ICD-9-CM V11.3) Active Condition [facility] Tobacco user (SNOMED CT 831392446) Active Condition [facility] Diagnosis: ICD-10-CM E11.42 Type 2 diabetes mellitus with diabetic polyneuropathy Active Diagnosis [facility] Diana [facility] Diagnosis: ICD-10-CM E11.621 Type 2 diabetes mellitus with foot ulcer Active Diagnosis [facility] Diagnosis: ICD-10-CM Z77.29 Contact with and exposure to other hazardous substances Active Diagnosis [facility] Medications Combined list of outpatient medications from Department of Defense and Veterans Affairs facilities.Medications provided include 1) outpatient medications from the last 15 months, and 2) patient-reported medications. Medication Details Route Status Patient Instructions Prescription Expires Prescription Number Last Dispense Date Ordering Provider Order Date Order Qty Source ASCORBIC ACID 500MG TAB TAKE ONE TABLET BY MOUTH TWICE A DAY ORAL ACTIVE FISHCHARLEE Bowers A 2022 [facility] ASPIRIN 81MG TAB,EC TAKE ONE TABLET BY MOUTH EVERY DAY ORAL ACTIVE JEFF CHOUDHARY ER A 2006 [facility] ATORVASTATI N CA 40MG TAB TAKE ONE TABLET BY MOUTH EVERY DAY FOR CHOLESTE ROL ORAL ACTIVE 04/11/2024 [id number] 4 FISH, CHARLEE A 2022 90 [facility] ATORVASTATI N [place] 40MG TAB TAKE ONE TABLET BY MOUTH EVERY DAY FOR CHOLESTE ROL ORAL DISCONT INUED 07/15/2023 [id number] NAFELICITYLTOD D 2022 90 [facility] CHOLECALCIF QUINTIN TAB TAKE 5000 UNITS BY MOUTH EVERY DAY ORAL ACTIVE FISH, CHARLEE A 2022 [facility] COENZYME Q10 CAP/TAB TAKE 1 CAPSULE BY MOUTH EVERY DAY ORAL ACTIVE FISH, CHARLEE A 2022 [facility] CYANOCOBALA MIN 1000MCG TAB TAKE ONE TABLET BY MOUTH EVERY DAY ORAL ACTIVE NAFELICITYLTOD D 2021 [facility] DICLOFENAC NA 1% GEL,TOP APPLY 4 GRAMS TOPICALL Y FOUR TIMES A DAY NEEDED FOR JOINT PAIN TOPICA L ACTIVE 03/22/2024 [id number] 3 ABE CHARLEE A 2022 100 [facility] FINASTERIDE 5MG TAB TAKE ONE TABLET BY MOUTH EVERY DAY FOR PROSTATE ORAL ACTIVE 04/11/2024 [id number] 4 ABE CHARLEE A 2022 90 [facility] FINASTERIDE 5MG TAB TAKE ONE TABLET BY MOUTH EVERY DAY FOR PROSTATE ORAL DISCONT INUED 07/13/2023 [id number] 3 CHARLEE FISH A 2021 90 [facility] FISH OIL 1000MG (500MG DHA/EPA) CAP,ORAL TAKE 1 CAPSULE BY MOUTH TWICE A DAY ORAL ACTIVE JEFF CHOUDHARY ER A 2006 [facility] INSULIN,GLA RGINE,HUMAN 100 UNIT/ML INJ,SOLOSTA R,3ML INJECT 22 UNITS UNDER THE SKIN AT BEDTIME FOR DIABETES SUBCUT ANEOUS DISCONT INUED (EDIT) 09/30/2023 [id number] NAIDL,TOD D 2022 5 [facility] INSULIN,GLA RGINE-YFGN 100UNIT/ML INJ PEN,3ML INJECT 24 UNITS UNDER THE SKIN EVERY EVENING FOR DIABETES SUBCUT ANEOUS ACTIVE 08/29/2024 [id number] 4 NAIDL,TOD D 2023 5 [facility] INSULIN,GLA RGINE-YFGN 100UNIT/ML INJ PEN,3ML INJECT 22 UNITS UNDER THE SKIN AT BEDTIME FOR DIABETES SUBCUT ANEOUS DISCONT INUED (EDIT) 01/07/2024 [id number] 3 NAIDL,TOD D 2022 5 [facility] INSULIN,GLA RGINE-YFGN 100UNIT/ML INJ PEN,3ML INJECT 20 UNITS UNDER THE SKIN AT BEDTIME FOR DIABETES SUBCUT ANEOUS DISCONT INUED (EDIT) 12/08/2023 [id number] 3 NAIDL,TOD D 2022 5 [facility] INSULIN,GLA RGINE-YFGN 100UNIT/ML INJ PEN,3ML INJECT 18 UNITS UNDER THE SKIN AT BEDTIME FOR DIABETES SUBCUT ANEOUS DISCONT INUED (EDIT) 11/08/2023 [id number] 3 NAIDL,TOD D 2022 5 [facility] LIDOCAINE 4% CREAM,TOP APPLY MODERATE AMOUNT TOPICALL Y THREE TIMES A DAY FOR PAIN TOPICA L ACTIVE 03/22/2024 [id number] 3 CHARLEE IFSH A 2022 30 [facility] MAGNESIUM OXIDE 400MG TAB TAKE ONE TABLET BY MOUTH EVERY DAY ORAL ACTIVE CHARLEE FISH A 2022 [facility] MENTHOL/MET HYL SALICYLATE (10-15%) LOW CONC. CREAM,TOP APPLY THIN LAYER TOPICALL Y THREE TIMES A DAY FOR MUSCLE PAIN TOPICA L ACTIVE 03/22/2024 [id number] 3 FISHCHARLEE Robinson 2022 90 [place] [facility] METFORMIN HCL 1000MG TAB TAKE ONE TABLET BY MOUTH TWICE A DAY FOR DIABETES ORAL ACTIVE 04/11/2024 [id number] 4 ABERADHACHARLEE A 2022 180 [place] [facility] METFORMIN HCL 1000MG TAB TAKE ONE TABLET BY MOUTH TWICE A DAY FOR DIABETES ORAL DISCONT INUED 07/15/2023 [id number] 3 NAIDL,TOD D 2022 180 [place] [facility] OMEPRAZOLE 20MG CAP,EC TAKE ONE CAPSULE BY MOUTH EVERY DAY ON AN EMPTY STOMACH, AT LEAST 30 MINUTES PRIOR TO A MEAL FOR GERD ORAL ACTIVE 03/22/2024 [id number] 4 ABE CHARLEE A 2022 90 [place] [facility] SEMAGLUTIDE 1MG/0.75ML INJ,SOLN,PE N,3ML INJECT 1MG UNDER THE SKIN EVERY WEEK FOR DIABETES SUBCUT ANEOUS ACTIVE 11/07/2024 [id number] 4 NAIDL,TOD D 2023 1 [place] [facility] SEMAGLUTIDE 1MG/0.75ML INJ,SOLN,PE N,3ML INJECT 1MG UNDER THE SKIN EVERY WEEK FOR DIABETES SUBCUT ANEOUS DISCONT INUED 11/08/2023 [id number] NAIDL,TOD D 2022 1 [place] [facility] TAMSULOSIN HCL 0.4MG CAP TAKE ONE CAPSULE BY MOUTH EVERY EVENING ORAL ACTIVE 04/13/2024 [id number] 4 ABECHARLEE Robinson 2022 30 [place] [facility] TAMSULOSIN HCL 0.4MG CAP TAKE ONE CAPSULE BY MOUTH EVERY EVENING ORAL DISCONT INUED 04/11/2024 [id number] 3 CHARLEE FISH 2022 90 [place] [facility] TAMSULOSIN HCL 0.4MG CAP TAKE ONE CAPSULE BY MOUTH EVERY EVENING ORAL DISCONT INUED 08/04/2023 [id number] CHARLEE FISH Robinson 2022 90 [facility] TURMERIC CAP/TAB TAKE 500 MG BY MOUTH TWICE A DAY ORAL ACTIVE MATTY POWERS 2018 [facility] Allergies, Adverse Reactions, Alerts Combined list of allergies from Department of Defense and Veterans Affairs facilities. It does not include entries that were removed or entered in error. Substance Category Reaction Severity Reaction type Status Date Reported Comments Source VANCOMYCIN Propensity to adverse reactions to drug (finding) [place] active 8 [facility] Immunizations Combined list of available immunizations from the Department of Defense and Veterans Affairs facilities. Immunization Series Date Given Administered By Site Reaction Lot Number CVX Code Drug Biomedical Engineering Aide Status Comments Source ZOSTER RECOMBINANT 2 2019 187 complet ed [facility] INFLUENZA, INJECTABLE, QUADRIVALENT, PRESERVATIVE FREE 2019 150 complet [facility] ZOSTER RECOMBINANT 1 2019 187 complet ed [facility] INFLUENZA, HIGH-DOSE, QUADRIVALENT 2019 197 complet ed [facility] INFLUENZA, SEASONAL, INJECTABLE, PRESERVATIVE FREE 2017 140 complet ed [facility] INFLUENZA, INJECTABLE, QUADRIVALENT, PRESERVATIVE FREE 2017 150 complet ed [facility] INFLUENZA, INJECTABLE, QUADRIVALENT, PRESERVATIVE FREE 2015 150 complet ed [facility] TDAP 2015 115 complet ed [place] [facility] PNEUMOCOCCAL CONJUGATE PCV 13 2015 133 complet [facility] TD (ADULT), 5 LF TETANUS TOXOID, PRESERVATIVE FREE, ADSORBED 2015 113 complet ed [facility] INFLUENZA, INJECTABLE, QUADRIVALENT, PRESERVATIVE FREE 2013 150 complet ed [facility] PNEUMOCOCCAL POLYSACCHARID E PPV23 2010 33 complet [facility] INFLUENZA, UNSPECIFIED FORMULATION 2006 88 complet [facility] PNEUMOCOCCAL, UNSPECIFIED FORMULATION 2006 109 complet [facility] TD(ADULT) UNSPECIFIED FORMULATION 2006 NONE 139 complet [facility] TETANUS TOXOID, UNSPECIFIED FORMULATION 2006 NONE 112 complet ed [facility] Results Combined list of recent chemistry, hematology [...] Aug 21, 2022 03:48 PM Reporting Lab: [facility] [address] Performing Lab: [facility] [address] [facility] BASIC METABOLIC PANEL+MG CREATININE [MASS/VOLUM E] IN SERUM OR PLASMA 1.2 mg/dL 0.7 - 1.2 03/22 Specimen Type: PLASMA No comment entered. Ordering Provider: ME LEEROY FISH Report Released Date/Time: Aug 21, 2022 03:48 PM Reporting Lab: [facility] [address] Performing Lab: [facility] [address] [facility] BASIC METABOLIC PANEL+MG UREA NITROGEN [MASS/VOLUM E] IN SERUM OR PLASMA 15 mg/dL 8 - 26 03/22 Specimen Type: PLASMA No comment entered. Ordering Provider: ME LEEROY FISH Report Released Date/Time: Aug 21, 2022 03:48 PM Reporting Lab: [facility] [address] Performing Lab: [facility] [address] [facility] IS [facility] BASIC METABOLIC PANEL+MG GLUCOSE [MASS/VOLUM E] IN SERUM OR PLASMA 145 mg/dL 70 - 100 03/22 H Specimen Type: PLASMA No comment entered. Ordering Provider: ME LEEROY FISH Report Released Date/Time: Aug 21, 2022 03:48 PM Reporting Lab: [facility] [address] Performing Lab: [facility] [address] [place] [facility] BASIC METABOLIC PANEL+MG SODIUM [MOLES/VOLU ME] IN SERUM OR PLASMA 138 mmol/L 136 - 145 03/22 Specimen Type: PLASMA No comment entered. Ordering Provider: ME LEEROY FISH Report Released Date/Time: Aug 21, 2022 03:48 PM Reporting Lab: [facility] [address] Performing Lab: [facility] [address] [place] [facility] BASIC METABOLIC PANEL+MG POTASSIUM [MOLES/VOLU ME] IN SERUM OR PLASMA 4.5 mmol/L 3.5 - 5.1 03/22 Specimen Type: PLASMA No comment entered. Ordering Provider: ME LEEROY FISH Report Released Date/Time: Aug 21, 2022 03:48 PM Reporting Lab: [facility] [address] Performing Lab: [facility] [address] [place] [facility] BASIC METABOLIC PANEL+MG CHLORIDE [MOLES/VOLU ME] IN SERUM OR PLASMA 101 mmol/L 98 - 107 03/22 Specimen Type: PLASMA No comment entered. Ordering Provider: ME LEEROY FISH Report Released Date/Time: Aug 21, 2022 03:48 PM Reporting Lab: [facility] [address] Performing Lab: [facility] [address] [place] [facility] BASIC METABOLIC PANEL+MG CARBON DIOXIDE, TOTAL [MOLES/VOLU ME] IN SERUM OR PLASMA 27 mmol/L 22 - 29 03/22 Specimen Type: PLASMA No comment entered. Ordering Provider: ME LEEROY FISH Report Released Date/Time: Aug 21, 2022 03:48 PM Reporting Lab: [facility] [address] Performing Lab: [facility] [address] [place] [facility] BASIC METABOLIC PANEL+MG CALCIUM [MASS/VOLUM E] IN SERUM OR PLASMA 10.0 mg/dL 8.4 - 10.2 03/22 Specimen Type: PLASMA No comment entered. Ordering Provider: ME LEEROY FISH Report Released Date/Time: Aug 21, 2022 03:48 PM Reporting Lab: [facility] [address] Performing Lab: [facility] [address] [place] [facility] BASIC METABOLIC PANEL+MG MAGNESIUM [MASS/VOLUM E] IN SERUM OR PLASMA 1.9 mg/dL 1.6 - 2.6 03/22 Specimen Type: PLASMA No comment entered. Ordering Provider: ME LEEROY FISH Report Released Date/Time: Aug 21, 2022 03:48 PM Reporting Lab: [facility] [address] Performing Lab: [facility] [address] [place] [facility] BASIC METABOLIC PANEL+MG ANION GAP IN SERUM OR PLASMA 10 mmol/L 5 - 15 03/22 Specimen Type: PLASMA No comment entered. Ordering Provider: ME LEEROY FISH Report Released Date/Time: Aug 21, 2022 03:48 PM Reporting Lab: [facility] [address] Performing Lab: [facility] [address] [place] [facility] BASIC METABOLIC PANEL+MG GLOMERULAR FILTRATION RATE/1.73 SQ M.PREDICTED [VOLUME RATE/AREA] IN SERUM, PLASMA OR BLOOD BY CREATININE- BASED FORMULA (CKD-EPI 2020) 63 60 03/22 Specimen Type: PLASMA No comment entered. Ordering Provider: ME LEEROY FISH Report Released Date/Time: Aug 21, 2022 03:48 PM Reporting Lab: [facility] [address] Performing Lab: [facility] [address] [place] [facility] HEMOGLOBI N A1C HEMOGLOBIN A1C/HEMOGLO [...] December 22, 2021 03:46 PM Reporting Lab: [facility] [address] Performing Lab: [facility] [address] [place] [facility] BASIC METABOLIC PANEL+MG CREATININE [MASS/VOLUM E] IN SERUM OR PLASMA 0.9 mg/dL 0.7 - 1.2 08/18 Specimen Type: PLASMA No comment entered. Ordering Provider: ME LEEROY FISH Report Released Date/Time: December 22, 2021 03:46 PM Reporting Lab: [facility] [address] Performing Lab: [facility] [address] [place] [facility] BASIC METABOLIC PANEL+MG UREA NITROGEN [MASS/VOLUM E] IN SERUM OR PLASMA 12 mg/dL 8 - 26 08/18 Specimen Type: PLASMA No comment entered. Ordering Provider: ME LEEROY FISH Report Released Date/Time: December 22, 2021 03:46 PM Reporting Lab: [facility] [address] Performing Lab: [facility] [address] [place] [facility] BASIC METABOLIC PANEL+MG GLUCOSE [MASS/VOLUM E] IN SERUM OR PLASMA 184 mg/dL 70 - 100 08/18 H Specimen Type: PLASMA No comment entered. Ordering Provider: ME LEEROY FISH Report Released Date/Time: December 22, 2021 03:46 PM Reporting Lab: [facility] [address] Performing Lab: [facility] [address] [place] [facility] BASIC METABOLIC PANEL+MG SODIUM [MOLES/VOLU ME] IN SERUM OR PLASMA 137 mmol/L 136 - 145 08/18 Specimen Type: PLASMA No comment entered. Ordering Provider: ME LEEROY FISH Report Released Date/Time: December 22, 2021 03:46 PM Reporting Lab: [facility] [address] Performing Lab: [facility] [address] [place] [facility] BASIC METABOLIC PANEL+MG POTASSIUM [MOLES/VOLU ME] IN SERUM OR PLASMA 3.9 mmol/L 3.5 - 5.1 08/18 Specimen Type: PLASMA No comment entered. Ordering Provider: ME LEEROY FISH Report Released Date/Time: December 22, 2021 03:46 PM Reporting Lab: [facility] [address] Performing Lab: [facility] [address] [place] [facility] BASIC METABOLIC PANEL+MG CHLORIDE [MOLES/VOLU ME] IN SERUM OR PLASMA 102 mmol/L 98 - 107 08/18 Specimen Type: PLASMA No comment entered. Ordering Provider: ME LEEROY FISH Report Released Date/Time: December 22, 2021 03:46 PM Reporting Lab: [facility] [address] Performing Lab: [facility] [address] [place] [facility] BASIC METABOLIC PANEL+MG CARBON DIOXIDE, TOTAL [MOLES/VOLU ME] IN SERUM OR PLASMA 26 mmol/L 22 - 29 08/18 Specimen Type: PLASMA No comment entered. Ordering Provider: ME LEEROY FISH Report Released Date/Time: December 22, 2021 03:46 PM Reporting Lab: [facility] [address] Performing Lab: [facility] [address] [place] [facility] BASIC METABOLIC PANEL+MG CALCIUM [MASS/VOLUM E] IN SERUM OR PLASMA 9.4 mg/dL 8.4 - 10.2 08/18 Specimen Type: PLASMA No comment entered. Ordering Provider: ME LEEROY FISH Report Released Date/Time: December 22, 2021 03:46 PM Reporting Lab: [facility] [address] Performing Lab: [facility] [address] [place] [facility] BASIC METABOLIC PANEL+MG MAGNESIUM [MASS/VOLUM E] IN SERUM OR PLASMA 1.6 mg/dL 1.6 - 2.6 08/18 Specimen Type: PLASMA No comment entered. Ordering Provider: ME LEEROY FISH Report Released Date/Time: December 22, 2021 03:46 PM Reporting Lab: [facility] [address] Performing Lab: [facility] [address] [place] [facility] BASIC METABOLIC PANEL+MG ANION GAP IN SERUM OR PLASMA 9 mmol/L 5 - 15 08/18 Specimen Type: PLASMA No comment entered. Ordering Provider: ME LEEROY FISH Report Released Date/Time: December 22, 2021 03:46 PM Reporting Lab: [facility] [address] Performing Lab: [facility] [address] [place] [facility] BASIC METABOLIC PANEL+MG GLOMERULAR FILTRATION RATE/1.73 SQ M.PREDICTED [VOLUME RATE/AREA] IN SERUM, PLASMA OR BLOOD BY CREATININE- BASED FORMULA (CKD-EPI) 89 60 08/18 Specimen Type: PLASMA No comment entered. Ordering Provider: ME LEEROY FISH Report Released Date/Time: December 22, 2021 03:46 PM Reporting Lab: [facility] [address] Performing Lab: [facility] [address] [place] [facility] Vital Signs Combined list of [...] ADM Date DC Date Status Disposition Source [facility] Outpatient Encounter [id number] Kimberly GRIFFIN 07/12 [facility] IS [facility] PRO PHONE CALL 11-20 MIN [id number] Diagnos is: ICD-10- CM E11.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
KARI BRITO 07[facility]14 [facility] [place] [facility] Outpatient Encounter [id number] SATINDER SMITH TY W 07/21 [place] [facility] OFFICE O/P EST MOD 30-39 MIN [id number] Diagnos is: ICD-10- CM E11.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
Rhiannon FISH A 08/18 [facility] Outpatient Encounter [id number] 08/21 [place] [facility] HC PRO PHONE CALL 11-20 MIN [id number] Diagnos is: ICD-10- CM E11.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
NAIDL,KARI 08/29 [facility] PRO PHONE CALL 11-20 MIN [id number] Diagnos is: ICD-10- CM E11.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
NAIDL,KARI 09/29 [place] [facility] PRO PHONE CALL 21-30 MIN [id number] Diagnos is: ICD-10- CM E11.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
NAIDL,KARI 11/07 [facility] HC PRO PHONE CALL 11-20 MIN [id number] Diagnos is: ICD-10- CM E11.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
NAIDL,KARI 12/07 [facility] [id number] Diagnos is: ICD-10- CM Z77.29 Contact with and exposur e to other [facility]<br/ > JEANINEJESSICA ILDE J 12/27 [facility] Outpatient Encounter [id number] Diagnos is: ICD-10- CM Z77.29 Contact with and exposur e to other [facility]<br/ > JEANINEJESSICA TALBERT J 12/27 [facility] IS [facility] HC PRO PHONE CALL 11-20 MIN [id number] Diagnos is: ICD-10- CM E11.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
NAIDL,KARI 01/06 [facility] Outpatient Encounter [id number] 03/10 [facility] HC PRO PHONE CALL 11-20 MIN [id number] Diagnos is: ICD-10- CM E11.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
NAIDL,KARI 03/14 [facility] OFFICE O/P EST LOW 20-29 MIN [id number] Diagnos is: ICD-10- CM E11.621 Type 2 diabete s mellitu s with foot ulcer<b r/> Rhiannon FISH A 03/22 [facility] HC PRO PHONE CALL 21-30 MIN [id number] Diagnos is: ICD-10- CM E11.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
NAIDL,KARI 04/18 [facility] HC PRO PHONE CALL 21-30 MIN [id number] Diagnos is: ICD-10- CM E11.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
NAIDL,KARI 07/11 [facility] MTMS BY PHARM ADDL 15 MIN [id number] Diagnos is: ICD-10- CM E11.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
NAIDL,KARI 08/29 [facility] MTMS BY PHARM EST 15 MIN [id number] Diagnos is: ICD-10- CM E11.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
AWKER,SOLEDAD L 10/10 [facility] Outpatient Encounter [id number] 10/16 [facility] MTMS BY PHARM EST 15 MIN [id number] Diagnos is: ICD-10- CM E11.621 Type 2 diabete s mellitu s with foot ulcer<b r/> NAIDL,KARI 11/06 [facility] MTMS BY PHARM ADDL 15 MIN [id number] Diagnos is: ICD-10- CM E11.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
NAIDL,KARI 11/22 [facility] Social History Combined list of available smoking, tobacco, and other social history from Department of Defense and Veterans Affairs facilities. Social History Type Response Date Comment Sourc e Tobacco smoking status NHIS [facility]-TOBACCO FORMER USER 08/18/2022 [facility] of [facility]20[facility] History of tobacco use PA-TOBACCO FORMER USER 05/03/2021 [facility] History of tobacco use PA-TOBACCO FORMER USER 04/21/2020 [facility] History of tobacco use FORMER TOBACCO US E >1Y <7Y 04/03/2018 [facility] History of tobacco use CURRENT TOBACCO USER 03/09/2007 [facility] Plan of Care List of future care activities from Department of Veterans Affairs facilities. Additional future care activities may be listed in the Assessment and Plan section. Date/Time Care Activity Care Activity Detail Facili ty 01/18/2024 AMBULATORY - NONE AMBULATORY - NONE [facility] Advance Directives List of completed, amended, or rescinded Advance Directives on record at Department of [facility] facilities. An actual copy of the Directive is not included. Date Advance Directive Provider Source 06/22/2021 ADVANCE DIRECTIVE DISCUSSION ALLYSON GRAF [facility] 06/22/2021 ADVANCE DIRECTIVE ALLYSON GRAF [facility] 03/09/2007 ADVANCE DIRECTIVE SOLEDAD WOLFF [facility]
--- OUTSIDE RECORDS SUMMARY | 2024-01-01 14:20 | XMS_ITS | Clinical Summary ---
Author Organization [facility] Address [address] [place] [address] Care Team Providers Care Revenue Cycle Analyst Name Role Phone Post, Dave Wakefield Primary Care Provider [phone] Medications Medication Sig Dispensed Refills Start Date [...] Comments Blood Pressure 148/85 06/26/2018 5:58 PM TRANSITIONAL CARE LIAISON Pulse 90 06/26/2018 5:58 PM TRANSITIONAL CARE LIAISON Temperature 36.6 ??C (97.8 ??F) 06/26/2018 5:58 PM CS T Respiratory Rate 18 06/26/2018 5:58 PM TRANSITIONAL CARE LIAISON Oxygen Saturation 95% 06/26/2018 7:00 PM TRANSITIONAL CARE LIAISON Inhaled Oxygen Concentration - - Weight 112 kg (247 lb) 06/26/2018 5:58 PM TRANSITIONAL CARE LIAISON Height 180.3 cm (5' 11) 06/26/2018 5:58 PM TRANSITIONAL CARE LIAISON Body Mass Index 34.45 06/26/2018 5:58 PM TRANSITIONAL CARE LIAISON Plan of Treatment Not on file Care Teams Revenue Cycle Analyst Relationship Specialty Start Date End Date Post, Dave Wakefield PCP - General Internal Medicine 06/26/18
--- OUTSIDE RECORDS SUMMARY | 2024-01-01 14:20 | XMS_ITS | Clinical Summary ---
Author Organization [facility] Address [place], [place] [address] Care Team Providers Care Catalytic Case Operator Name Role Phone Post, Dave Velazquez MD Primary Care Provider [phone] Moshe Enciso MD Unavailable [phone] Arie Justin MD Unavailable [phone] [facility], Met Unavailable Murali Hoover DPM Unavailable [phone] Allergies No known active allergies Medications [...] Coronary artery calcification seen on CT scan 11/22/1905/21/2021 Overview: Met with Cardiology and had perfusion [...] to Care Guide Pamella Brennan Phone number [phone]. Alcohol abuse 06/02/2010 03/26/2019 Overview: Sober since 2001. Great success with AA. 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 10/06/2023 Pyogenic arthritis of left shoulder region 06/17/2022 Encounters Date Type Department Care Team Description 11/28/2023 Telephone [facility] [place] [address] [place] [address] [place] [address] Post, Dave Velazquez MD Outside Order 11/03/2023 11:00 AM CDT Office Visit [facility] [place] [address] [place] [address] Post, Dave Velazquez MD Form (diabetic shoes) 11/03/2023 Travel 10/25/2023 1:00 PM CDT Orders Only [facility] [address] [place] [address] Lab, [facility] 10/25/2023 Travel 10/06/2023 1:30 PM AUTO BODY STRAIGHTENER Phone Office Visit [facility] [place] [address] [place] [address] [place] [address] Post, Dave Velazquez MD 10/03/2023 Travel from [...] 36.7 ??C (98 ??F) 06/29/2022 8:43 AM AUTO BODY STRAIGHTENER Respiratory Rate 18 06/29/2022 8:43 AM AUTO BODY STRAIGHTENER Oxygen Saturation 96% 07/21/2023 1:34 PM AUTO BODY STRAIGHTENER Inhaled Oxygen Concentration - - Weight 107 kg (236 lb) 11/03/2023 11:13 AM CDT w ith shoes Height 180.3 cm (5' 10.98) 07/21/2023 1:[address] Body Mass Index 32.93 07/21/2023 1:34 PM AUTO BODY STRAIGHTENER Plan of Treatment Health Maintenance Due Date [...] 07/16/2020, 04/21/2020 Medical Devices Implanted Type Area Sidewalk Repairer Device Identifier Shelf Expiration Date Model / Serial / Lot [id number] - [id number] Implanted:Qty: 1 on 09/20/2021 at [facility] Right: Foot [employer] AR-8725-4 4H / / Description:COMPRESSION FT S CREWS CANNULATED, 2.5 MICRO 44MM LOAD 4 7 [id number] [facility]1530p - [id number] Implanted:Qty: 1 on 09/20/2021 at [facility] Right: Foot [employer] 03/30/2025 AR-1530P- CP / / [id number] Description:FOREFOOT INTERNA L BRACE IMPLANT SYSTEM, PEEK Screw 4.22u35du Bio Compositetenodesis Disp Sde Pk - [id number] Implanted:Qty: 1 on 09/20/2021 at [facility] Right: Foot [employer] 08/30/2022 AR-1547CD S / / [id number] Ancr Sut 1.3mm Dx Fibertak Suturetape 2 Ndl 26.2mm 08/01 [facility] - [id number] Implanted:Qty: 1 on 09/20/2021 at [facility] Right: Foot [employer] 06/29/2026 AR-8990ST / / [id number] Explanted Type Area Sidewalk Repairer Device Identifier Shelf Expiration Date Model / Serial / Lot Wire Kirs .[id number] Smooth6/Pk 000 Depuy/Héctor - [id number] Explanted:Qty: 1 on 09/20/2021 at [facility] Right: Foot [employer] / / Description:LOAD 4 8 [id number] [facility]8737-40 - [id number] Explanted:Qty: 1 on 09/20/2021 at [facility] Right: Foot [employer] AR-8737-40 / / Description:2.5 MICRO COMPRE SSION FT DRILLS AND DISPOSABLES, GUIDEWIRE W TROCAR TIP, THREADED, 0.34 IN (.86MM) LOAD 4 7 [id number] Procedures Procedure Name Priority Date/Time Associated Diagnosis [...] diabetes mellitus with diabetic neuropathy, unspecified whether custodial insulin use (HC) CT CHEST PE STUDY Routine 05/10/2022 7:5 0 PM CDT OCCULT BLOOD IFOBT STOOL Routine 07/03/2013 7:00 PM AUTO BODY STRAIGHTENER Screening for colon cancer from Last 3 Months or Most Recently Relevant to Health Maintenance Results * (ABNORMAL) CBC WITH AUTO DIFFERENTIAL (10/25/2023 12:59 PM CDT) WHITE BLOOD COUNT 8.1 4.5 - 11.0 thou/cu mm 10/25/2023 1:36 PM CDT [facility] RED BLOOD COUNT 4.53 4.30 - 5.90 mil/cu mm 10/25/2023 1:36 PM CDT [facility] HEMOGLOBIN 12.4(L) 13.5 - 17.5 g/dL 10/25/2023 1:36 PM CDT [facility] HEMATOCRIT 38.9 37.0 - 53.0 % 10/25/2023 1:36 PM CDT [facility] MCV 86 80 - 100 fL 10/25/2023 1:36 PM CDT [facility] MCH 27.4 26.0 - 34.0 pg 10/25/2023 1:36 PM CDT [facility] MCHC 31.9(L) 32.0 - 36.0 g/dL 10/25/2023 1:36 PM CDT [facility] RDW 16.5(H) 11.5 - 15.5 % 10/25/2023 1:36 PM CDT [facility] PLATELET COUNT 175 140 - 440 thou/cu mm 10/25/2023 1:36 PM CDT [facility] MPV 10.3 6.5 - 11.0 fL 10/25/2023 1:36 PM CDT [facility] % NEUT 66.6 % 10/25/2023 1:36 PM CDT [facility] % LYMPH 21.6 % 10/25/2023 1:36 PM CDT [facility] % MONO 7.3 % 10/25/2023 1:36 PM CDT [facility] % EOS 4.3 % 10/25/2023 1:36 PM CDT [facility] % BASO 0.2 % 10/25/2023 1:36 PM CDT [facility] ABSOLUTE NEUTROPHILS 5.4 1.7 - 7.0 thou/cu mm 10/25/2023 1:36 PM CDT [facility] ABSOLUTE LYMPHOCYTES 1.7 0.9 - 2.9 thou/cu mm 10/25/2023 1:36 PM CDT [facility] ABSOLUTE MONOCYTES 0.6 <0.9 thou/cu mm 10/25/2023 1:36 PM CDT [facility] ABSOLUTE EOSINOPHILS 0.4 <0.5 thou/cu mm 10/25/2023 1:36 PM CDT [facility] ABSOLUTE BASOPHILS 0.0 <0.3 thou/cu mm 10/25/2023 1:36 PM CDT [facility] Blood BLOOD SPECIMEN / Unknown Venipuncture / Unknown 10/25/2023 12:59 PM CDT 10/25/2023 12:59 PM CDT Narrative [facility] - 10/25/2023 1:36 PM CDT This procedure was originally ordered at [facility]. This procedure was originally ordered at [facility]. Dave Garrett MD HEMATOLOGY [facility] [address] [place] [address], * TSH WITH REFLEX (10/25/2023 12:59 PM CDT) TSH 1.43 0.27 - 4.20 uIU/mL 10/25/2023 10:26 PM CDT [facility] Blood BLOOD SPECIMEN / Unknown Venipuncture / Unknown 10/25/2023 12:59 PM CDT 10/25/2023 12:59 PM CDT Narrative [facility] - 10/25/2023 10:26 PM CDT In Adults, TSH values between 5.00 and 10.00 uIU/ml do not necessarily indicate the presence of Hypothyroidism. Correlation with clinical findings such as presence of goiter and/or Thyroperoxidase (TPO) Antibody may be helpful. For more information please refer to LOWELL 2004; 291: 228-238. Dave Garrett MD CHEMISTRY Performing Organization Address City/[facility]/ZIP Co de Phone Number [facility] [address] [place] [address], * (ABNORMAL) Creatinine (10/25/2023 12:59 PM CDT) [...] Dave Garrett MD CHEMISTRY Performing Organization Address [facility]/ZIP Co de Phone Number [facility] [address] [place] [address], * (ABNORMAL) Hemoglobin A1c (monitoring) (10/25/2023 12:59 PM CDT) HEMOGLOBIN A1C MONITORING (POCT) 7.9(H) <=6.4 % 10/25/2023 3:27 PM CDT [facility] Blood BLOOD SPECIMEN / Unknown Venipuncture / Unknown 10/25/2023 12:59 PM CDT 10/25/2023 12:59 PM CDT Narrative [facility] - 10/25/2023 3:27 PM CDT ? (<=6.9%) [...] Dave Garrett MD CHEMISTRY Performing Organization Address [facility] de Phone Number [facility] [address] [place] [address], * CT Chest PE study TODAY (05/10/2022 [...] Occult Blood Stool (IFOBT) (07/03/2013 7:00 PM AUTO BODY STRAIGHTENER) STOOL BLOOD ,IFOBT Negative Negative, Invalid 07/04/2013 3:03 PM AUTO BODY STRAIGHTENER [facility] Stool specimen (specimen) STOOL SPECIMEN / Unknown Non-Blood / Unknown 07/03/2013 7:00 PM AUTO BODY STRAIGHTENER 07/04/2013 2:39 PM AUTO BODY STRAIGHTENER Dave Garrett MD LABORATORY [facility] [address] [place] [address] from Last 3 Months or Most Recently Relevant to Health Maintenance Advance Directives Documents on File Type Date Recorded Patient Inside Steward/Stewardess Expl anation Healthcare Directive 05/21/2021 3:50 PM [...] Code Status Discussion: Reviewed Preferences Care Teams Catalytic Case Operator Relationship Specialty Start Date End Date Post, Dave Velazquez MD PCP - General 06/02/10 Moshe Ecniso MD [address] [facility] [address] [place], [place] [id number] Endocrinology Endocrinology 01/04/18 [place] [address] [facility] [address] [place], [place] [id number] Surgery - Ophthalmology 03/22/18 [facility], [facility] [address] [place] [address] 06/08/21 Murali Hoover, DPM [address] [facility] [address] Surgery - Podiatric 01/03/23
--- OUTSIDE RECORDS SUMMARY | 2024-01-01 14:20 | XMS_ITS | Referral Summary ---
Author Organization [facility] Address [address] [place] [address] Care Team Providers Care Ceramic Research Engineer Name Role Phone Post, Dave Wakefield Primary Care Provider [phone] Medications Medication Sig Dispensed Refills Start Date [...] Comments Blood Pressure 148/85 06/26/2018 5:58 PM CAUSTIC PLANT WORKER Pulse 90 06/26/2018 5:58 PM CAUSTIC PLANT WORKER Temperature 36.6 ??C (97.8 ??F) 06/26/2018 5:58 PM CS T Respiratory Rate 18 06/26/2018 5:58 PM CAUSTIC PLANT WORKER Oxygen Saturation 95% 06/26/2018 7:00 PM CAUSTIC PLANT WORKER Inhaled Oxygen Concentration - - Weight 112 kg (247 lb) 06/26/2018 5:58 PM CAUSTIC PLANT WORKER Height 180.3 cm (5' 11) 06/26/2018 5:58 PM CAUSTIC PLANT WORKER Body Mass Index 34.45 06/26/2018 5:58 PM CAUSTIC PLANT WORKER Plan of Treatment Not on file Care Teams Ceramic Research Engineer Relationship Specialty Start Date End Date Post, Dave Wakefield PCP - General Internal Medicine 06/26/18
--- OUTSIDE RECORDS SUMMARY | 2024-01-01 14:21 | XMS_ITS | Data Portability ---
Author Organization [place] [facility] Address [address] [place] [address] Care Team Providers Care Mainframe Programmer Name Role Phone POST, SUE Primary Care Provider [phone] Assessment Encounter Date Assessment Date Assessment LastModified [...] to efficacy (6+ months) and side effects [email or web address] Not available 06/16/2022 18:10:42 06/30/2022 06/30/2022 77M with urinary retention. 1)Urinary retention - Suspect due to being bedridden, hospitalized. - no evidence obstruction on cysto - Should improve as his mobility improves. - Continue tamsulosin 0.4 mg daily - Continue finasteride 5 mg daily - change Terry monthly; recommend urodynamics if still unable to void once ambulating [email or web address] Not available 06/30/2022 14:06:21 11/04/2022 11/04/2022 Here [...] 5 mg daily 12 min total time [email or web address] Not available 11/11/2022 17:49:48 Plan of Treatment Reminders Order Date Submit Date Provider Last Modified By Organization Details Last Modified Time Details Appointments None recorded. Lab culture, urine - Pt has a Terry in place, so removed for UDS. Denies any symptoms of UTI, but UC sent and pt treated due to hx of Hospitaliza tion for UTI. 2022 023 [facility], [address], [address], [place], [address], 3 10:05:08 urinalysis, dipstick 2022 023 [facility], [address], [place], [address], 3 12:03:37 Referral None recorded. Procedures None recorded. Surgeries None recorded. Imaging None recorded. Medication Orders tamsulosin 0.4 mg capsule 2021 022 [email or web address] 2 [facility], [address], [place], [address], 2 18:25:29 finasteride 5 mg tablet 2021 022 [email or web address] 2 [facility], [address] , [place], [address], 18:25:29 Patient TargetsNo targets recorded. Patient Instructions Encounter Date Encounter Id Patient Instructions Last Modified By Organization Details Last Modified Time 11/04/2022 [id number] Pt has F/U appt with Dr Barrientos in [place] on 11/11/2022 @ 3:10pm to review UDS. Not available 10/19/2022 15:50:04 09/23/2022 [id number] Patient to call clinic with questions or concerns. Advised patient to increase water intake and to keep 4 week appointment for next catheter change. [email or web address] Not available 09/23/2022 13:22:30 08/03/2022 [id number] Will reach out t o MO about patient [email or web address] Not available 08/03/2022 11:17:30 Reason for Referral None Reported. Results Created Date Observation Date Name Description Value Unit Range Abnormal Flag LastModifiedBy Organization Detail LastModifiedTime 11/05/1911/04/2022 URINE CULTU RE final report MICROB IOLOGY RESULT S abnormal Not Available [facility] [address], [place], [address], 11/07/2022 10:05:08 11/05/19 23 11/04/2022 urina lysis , dipst ick Color-Status Straw Not Available [facility] [address], [place], [address], 11/04/2022 12:02:10 11/05/19 23 11/04/2022 urina lysis , dipst ick Clarity-Stat us Slight ly Cloudy Not Available [facility] [address], [place], [address], 11/04/2022 12:02:10 11/05/19 23 11/04/2022 urina lysis , dipst ick Glucose-Stat us 500 Not Available [facility] [address], [place], [address], 11/04/2022 12:02:10 11/05/19 23 11/04/2022 urina lysis , dipst ick Bilirubin-St atus Negati ve Not Available [facility] [address], [place], [address], 11/04/2022 12:02:10 11/05/19 23 11/04/2022 urina lysis , dipst ick Ketones-Stat us Negati ve Not Available [facility] [address], [place], [address], 11/04/2022 12:02:10 11/05/19 23 11/04/2022 urina lysis , dipst ick Sp Wardell-Stat us 1.015 Not Available [facility] [address], [place], [address], 11/04/2022 12:02:10 11/05/19 23 11/04/2022 urina lysis , dipst ick pH-Status 6.5 Not Available [facility] [address], [place], [address], 11/04/2022 12:02:10 11/05/19 23 11/04/2022 urina lysis , dipst ick Protein-Stat us 5.0 Not Available [facility] [address], [place], [address], 11/04/2022 12:02:10 11/05/19 23 11/04/2022 urina lysis , dipst ick Urobilinogen -Status 0.2 Not Available [facility] [address], [place], [address], 11/04/2022 12:02:10 11/05/19 23 11/04/2022 urina lysis , dipst ick Nitrates-Sta tus positi ve Not Available [facility] [address], [place], [address], 11/04/2022 12:02:10 11/05/19 23 11/04/2022 urina lysis , dipst ick Blood-Status Large Not Available [facility] [address], [place], [address], 11/04/2022 12:02:10 11/05/19 23 11/04/2022 urina lysis , dipst ick Leuko-Status Large Not Available [facility] [address], [place], [address], 11/04/2022 12:02:10 11/05/19 23 11/04/2022 urina lysis , dipst ick Specimen Type Cathet erized Not Available [facility] [address], [place], [address], 11/04/2022 12:02:10 11/05/19 23 11/04/2022 urina lysis , dipst ick Performed by Jake [email or web address] Not Available [facility] [address], [place], [address], 11/04/2022 12:02:10 Result Notes None recorded. Problems Name Status Onset Date Resolution Date Notes Provider Name and Address Organization Details Recorded Time Retention of urine Active 3 Jenna song [facility] 10/21/2022 13:15:43 Problem Notes None recorded. Procedures Surgical History Date Name Laterality Status Provider Name and Address Organization Details Recorded Time 3 Fill and Pull/Voiding Trial/TOV completed Jenna song [facility] 12/09/2022 11:59:45 3 Urodynamic Studies completed Deyanira song [facility] 11/04/2022 12:19:38 3 Teryr Catheter Insertion completed Deyanira song [facility] 11/04/2022 12:21:21 3 Urethral Catheter Change completed Jenna Harris null, [facility] 10/21/2022 13:18:32 3 Urethral Catheter Change completed Nenita Flores null, [facility] 09/23/2022 13:21:12 3 Terry Catheter Insertion completed Roula Beltran null, [facility] 08/03/2022 11:16:51 3 Fill and Pull/Voiding Trial/TOV completed Roula Beltran null, [facility] 08/03/2022 11:16:41 2 Cystoscopy- male completed Kristopher Barrientos MD, PHD [address] [place] [address],[address], [place], [address], [facility] 06/30/2022 09:37:30 2 Urethral Catheter Change completed Carlos Mix null, [facility] 06/30/2022 09:49:15 2 Terry Catheter Insertion completed Juanito Josue [facility] 06/16/2022 15:03:22 2 Fill and Pull/Voiding Trial/TOV completed Roula Tony PA-C [address] [place] [address],[address], [place], [address], [facility] 06/16/2022 18:06:50 Cataract Surgery completed Bartonarminda Josue [facility] 06/16/2022 12:30:25 Orthopedic Surgery completed Bartonarminda Josue [facility] 06/16/2022 12:30:33 Imaging Results None recorded. Procedure [...] Updated DateTime 06/16/2022 180.34 cm 30 kg/m2 38713.36 g Juanito Josue [facility] 06/16/2022 12:27:07 Date Recorded Body height Provider Name an d Address Organization Details Last Updated DateTime 06/30/2022 180.34 cm Carlos Mix [facility] 1 08/31/2021 09:27:04 Date Recorded Body height Provider Name an d Address Organization Details Last Updated DateTime 09/23/2022 180.34 cm Nenita Flores [facility] 09/23/2022 13:17:39 Date Recorded Body height Body mass index (BMI) Body weight Provider Name and Address Organization Details Last Updated DateTime 11/11/2022 180.34 cm 30 kg/m2 35239.36 g Amanda Molina [facility] 11/11/2022 16:25:51 Social History Question Answer Notes LastModified by Organizat ion Details LastModified Time Tobacco Smoking Status Former Smoker Juanito song, [facility] 06/16/2022 12:29:38 What Is Your Level [...] Encounter Closed Date Diagnosis/Indication Diagnosis SNOMED-CT Code [id number] Roula Tony PA-C [facility] [address] [place] [address] 06/16/2022 11:30:09 06/20/2022 08:36:10 Retention of urine [id number] Benign pro static hyperplasia with outflow obstruction [id number] Kristopher bains MD, PHD [facility] [address] [place] [address] 06/30/2022 08:46:23 07/04/2022 11:29:58 Retention of urine [id number] Benign pro static hyperplasia with outflow obstruction [id number] Roula Beltran [facility] [address] [place] [address] 08/03/2022 10:27:16 08/05/2022 11:54:14 Retention of urine 581903239 [id number] Nenitaaranza Flores [facility] [address] [place] [address] 09/23/2022 10:30:04 09/26/2022 14:37:37 [id number] Kristopher bains MD, PHD [facility] [address] [place] [address] 11/04/2022 10:41:00 11/10/2022 13:37:32 Benign prostatic hyperplasia with outflow obstruction 882375716 Retention of urine 40395 4002 Microscopic hematuria 19 5484796 [id number] Jenna Steven [facility] [address] [place] [address] 10/21/2022 11:27:55 10/24/2022 11:49:09 Retention of urine 735010647 [id number] Kristopher bains MD, PHD [facility] [address] [place] [address] 11/11/2022 16:25:28 11/17/2022 17:02:38 Retention of urine 583069996 Benign pro static hyperplasia with outflow obstruction [id number] Jenna Harris [facility] [address] [place] [address] 12/09/2022 10:56:01 12/12/2022 15:10:14 Retention of urine 930355623 Health Concerns Section Related Observation LastModified by Organization Detai ls LastModified Time None Recorded Concern Status LastModified by Organization Details LastModified Time None Recorded Advance Directives Directive None Recorded Payers Encounter Date Sequence Insurance Name Policy Number Policy Molina Covered Member ID Molina Member ID Guarantor Name 12/09/2022 1 [place] [employer] Tom B Renaux [id number] Tom B Renaux 12/09/2022 2 [place] [id number] Tom B Renaux [id number] Tom B Renaux 11/11/2022 1 [place] [employer] Tom B Renaux [id number] Tom B Renaux 11/11/2022 2 [place] [id number] Tom B Renaux [id number] Tom B Renaux 11/04/2022 1 [place] [employer] Tom B Renaux [id number] Tom B Renaux 11/04/2022 2 [place] [id number] Tom B Renaux [id number] Tom B Renaux 10/21/2022 1 [place] [employer] Tom B Renaux [id number] Tom B Renaux 10/21/2022 2 [place] [id number] Tom B Renaux [id number] Tom B Renaux 09/23/2022 1 [place] [employer] Tom B Renaux [id number] Tom B Renaux 09/23/2022 2 [place] [id number] Tom B Renaux [id number] Tom B Renaux 08/03/2022 1 [place] [employer] Tom B Renaux [id number] Tom B Renaux 08/03/2022 2 [place] [id number] Tom B Renaux [id number] Tom B Renaux 06/30/2022 1 [place] [employer] Tom B Renaux [id number] Tom B Renaux 06/30/2022 2 [place] [id number] Tom B Renaux [id number] Tmo B Renaux 06/16/2022 1 [place] [employer] Tom B Renaux [id number] Tom B Renaux 06/16/2022 2 [place] [id number] Tom B Renaux [id number] Tom B Renaux Notes Date Note Type Note Provider Name and Address Organization Details Recorded Time 06/16/2022 text/html HPI Notes: 77M w ith urinary retention. Here with . Recent hospitalization at [facility] from 04/30-05/30 for MSSA bacteremia [...] Tobacco: EtOH: FHx: Roula Tony PA-C [address], [place], [address], [facility] 06/16/2022 18:10:53 06/30/2022 text/html HPI Notes: 77M w ith urinary retention. Here for cysto. Saw LILIBETH Nix. Recent hospitalization at [facility] from 04/30-05/30 for MSSA bacteremia [...] EtOH: FHx: Kristopher Barrientos MD, PHD [address] [place] [address],[address], [place], [address], [facility] 06/30/2022 14:06:37 09/23/2022 text/html HPI [...] weeks for next catheter change. Nenita song [facility] 09/23/2022 13:22:32 10/21/2022 text/html HPI Notes: Pt he re for catheter change Jenna Steven song [facility] 10/21/2022 13:21:54 11/11/2022 text/html HPI Notes: 77M w ith urinary retention. Hospitalization at [facility] from 04/30-05/30 for MSSA bacteremia [...] coordinate their care. Kristopher Barrientos MD, PHD [address] [place] [address],[address], [place], [address], [facility] 11/11/2022 17:49:57 12/09/2022 text/html HPI Notes: Pt of Dr PALMER, here for TOV recommended at 11/11/22 visit Jenna Steven song [facility] 12/09/2022 12:43:22
== END 2024-01-01 14:18 | disposition home or self-care (01) ==
LOC: WOUND 14:17
PROVIDERS: Visit Provider Nurse Practitioner Family
DX: E11.621 Type 2 diabetes mellitus with foot ulcer (principal); I87.2 Venous insufficiency (chronic) (peripheral); L97.512 Non-pressure chronic ulcer of other part of right foot with fat layer exposed; Z79.4 Long term (current) use of insulin; Z79.84 Long term (current) use of oral hypoglycemic drugs
CPT/HCPCS: G0463

== ENCOUNTER 2024-01-22 14:00 | Outpatient (CLI) | payer MEDICARE, BC, SELFPAY ==
--- OUTSIDE RECORDS SUMMARY | 2024-01-22 14:20 | XMS_ITS | Referral Summary ---
Author Organization [facility] Address [address] [place] [address] Care Team Providers Care Compliance Clerk Name Role Phone Post, Dave Wakefield Primary Care Provider [phone] Medications Medication Sig Dispensed Refills Start Date [...] Comments Blood Pressure 148/85 06/26/2018 5:58 PM TOMBSTONE CARVER Pulse 90 06/26/2018 5:58 PM TOMBSTONE CARVER Temperature 36.6 ??C (97.8 ??F) 06/26/2018 5:58 PM CS T Respiratory Rate 18 06/26/2018 5:58 PM TOMBSTONE CARVER Oxygen Saturation 95% 06/26/2018 7:00 PM TOMBSTONE CARVER Inhaled Oxygen Concentration - - Weight 112 kg (247 lb) 06/26/2018 5:58 PM TOMBSTONE CARVER Height 180.3 cm (5' 11) 06/26/2018 5:58 PM TOMBSTONE CARVER Body Mass Index 34.45 06/26/2018 5:58 PM TOMBSTONE CARVER Plan of Treatment Not on file Care Teams Compliance Clerk Relationship Specialty Start Date End Date Post, Dave Wakefield PCP - General Internal Medicine 06/26/18
--- OUTSIDE RECORDS SUMMARY | 2024-01-22 14:20 | XMS_ITS | Clinical Summary ---
Author Organization [facility] Address [address] [place] [address] Care Team Providers Care Row Boss Hoeing Name Role Phone Post, Dave Wakefield Primary Care Provider [phone] Medications Medication Sig Dispensed Refills Start Date [...] Comments Blood Pressure 148/85 06/26/2018 5:58 PM COMPENSATION PROGRAMS MANAGER Pulse 90 06/26/2018 5:58 PM COMPENSATION PROGRAMS MANAGER Temperature 36.6 ??C (97.8 ??F) 06/26/2018 5:58 PM CS T Respiratory Rate 18 06/26/2018 5:58 PM COMPENSATION PROGRAMS MANAGER Oxygen Saturation 95% 06/26/2018 7:00 PM COMPENSATION PROGRAMS MANAGER Inhaled Oxygen Concentration - - Weight 112 kg (247 lb) 06/26/2018 5:58 PM COMPENSATION PROGRAMS MANAGER Height 180.3 cm (5' 11) 06/26/2018 5:58 PM COMPENSATION PROGRAMS MANAGER Body Mass Index 34.45 06/26/2018 5:58 PM COMPENSATION PROGRAMS MANAGER Plan of Treatment Not on file Care Teams Row Boss Hoeing Relationship Specialty Start Date End Date Post, Dave Wakefield PCP - General Internal Medicine 06/26/18
--- OUTSIDE RECORDS SUMMARY | 2024-01-22 14:21 | XMS_ITS | Encounter Summary ---
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 Organization [facility] Address [address] [place] [address] Care Team Providers Care Epic Ambulatory Analyst Name Role Phone CHARLEE FISH Primary Care Provider Fe le Insurance Providers: All historical and current Section [...] MEDIC ARE SUPPL EMENT Jul 31, 2018 [id number] [phone] RODNEYBRITTNEYAKNE A[place] MED[place] ARE SUPPL EMENT Jul 31, 2018 [id number] [phone] RODNEYBRITTNEYK[place] A[place]IENT [place] [facility] ([place]NR) MEDICARE ADVANTAGE [facility] (WNR) Jul 31, 2017 [id number] [phone] RENBRITTNEYKANE A[place] PATIENT [place] SU[place]LE[place] MEDIC ARE SUPPL EMENT Jul 31, 2018 [id number] [phone] RODNEYBRITTNEYKANE A[place] SU[place]LE[place] MEDIC ARE SUPPL EMENT Jul 31, 2018 [id number] [phone] RODNEYBRITTNEYKANE ALEX PATIENT MEDICARE ([place]) [place]IC[place]) PART A May 31, 2011 PART A [id number] [phone] KANE PÉREZ PATIENT MEDICARE ([place]) [place]) PART B May 31, 2011 PART B [id number] [phone] KANE PÉREZ PATIENT Selected Encounter This section includes the information on record at [place] for the Encounter. Date/Time Encounter Type Encounter Description Reason Provider Source Jan 19, 2024 08:08 AM Outpatient Encounter ENDOCRINOLOGY ICD-10-CM E11.42 Type 2 diabetes mellitus with diabetic polyneuropathy Cynthia TONEY IHCandy Encounter Template Text not used by [place] Assessments - Encounter Diagnoses This section includes the primary and secondary diagnoses documented for the Encounter. Date/Time Primary/Secondary Diagnosis Diagnosis Name Provider Source Jan 19, 2024 08:11 AM PRIMARY Type 2 diabetes mellitus with diabetic polyneuropathy JESSICA LUGO [facility] Plan of Treatment: Future Appointments (+ 6 months) and Future Tests (+/- 45 days) The Plan of Treatment section includes future care activities for the patient from [facility] [place] [facility]. This section includes future appointments and future orders which are active, pending or scheduled. Future Appointments This section includes appointments that were scheduled to occur 6 months from the date of the Encounter, up to a maximum of 20 appointments. The data comes from all [place] treatment facilities. Appointment Date/Time Appointment Type Appointme nt Facility Name Feb 22, 2024 04:00 PM AMBULATORY - NONE [facility] Social History: Smoking Status (Most current) and Tobacco Use (All prior to encounter date) This section includes the most current, and the historical, smoking and tobacco- related health factors from the [place] facility where the Encounter took place. Current Smoking Status This section includes the most current smoking, or tobacco-related health factor, from the [place] facility where the Encounter took place. Date/Time Current Smoking Status Comment Diego peng Aug 18, 2022 08:30 AM VA-TOBACCO FORMER USER [facility] Tobacco Use History This section includes a history of the smoking, or tobacco-related health factors, that were collected on or before the date of the Encounter. The data comes from the [place] facility where the Encounter took place. Date/Time Smoking Status/Tobacco Use Comment F acility Aug 18, 2022 08:30 AM [place]-TOBACCO QUIT 15 YRS OR MORE [facility] May 03, 2021 08:00 AM VA-TOBACCO FORMER USER [facility] May 03, 2021 08:00 AM VA-TOBACCO QUIT 15 YRS OR MORE [facility] Apr 21, 2020 09:00 AM VA-TOBACCO FORMER USER [facility] Apr 21, 2020 09:00 AM [place]-TOBACCO QUIT 15 YRS OR MORE [facility] Apr 03, 2018 03:16 PM FORMER TOBACCO USE >1Y <7Y [facility] Mar 09, 2007 10:41 AM CURRENT TOBACCO USER [facility] Advance Directives: All historical and current Section Date Range: From patient's date of to the date document was created. This section includes ALL of a patient's completed or amended [place] Advance and Rescinded Directives. The entries below indicate that a directive exists for the patient, but an actual copy is not included with this document. The data comes from all [place] facilities. Date Advance Directives Provider Source Jun 22, 2021 ADVANCE DIRECTIVE DISCUSSION ALLYSON GRAF [facility] Jun 22, 2021 ADVANCE DIRECTIVE ALLYSON GRAF [facility] Mar 09, 2007 ADVANCE DIRECTIVE SOLEDAD WOLFF [facility] Encounter Notes: All associated encounter notes This section contains the clinical notes associated to the Encounter. Date/Time Encounter Note(s) Provider Source Jan 19, 2024 08:08 AM DIABETOLOGY CONSUL T: LOCAL TITLE: DIABETES DEVICE CONSULT STANDARD TITLE: DIABETOLOGY CONSULT DATE OF NOTE: JAN 19, 2024@08:08 ENTRY DATE: JAN 19, 2024@08:08:47 AUTHOR: JESSICA LUGO EXP COSIGNER: URGENCY: STATUS: COMPLETED Diabetes Device Consult [place] consulted to Metabolic for consideration for personal Continuous Glucose Monitoring System. *Approval or disapproval for diabetes technology devices is based upon review of CPRS, JLV and outside records if available. Treatment by [place] Endocrinology or photo lab specialist Diagnosis of Diabetes Mellitus (type I or type II) and on insulin therapy. Attempts to eliminate insulin in T2DM have been considered by treating provider. Lab Data Collection DT Spec [id number] 03/22/2023 13:57 BLOOD 7.1 H 08/18/2022 07:31 BLOOD 6.8 H 12/22/2021 14:31 BLOOD 8.2 H C-Peptide Data: [facility] - C-Peptide Collection DT Specimen Test Name Result Units Ref Range 05/03/2021 09:07 SERUM !! C-PEPTIDE 2.53 ng/mL 0.80 - 3.85 !! Indicates COMMENTS AVAILABLE...Refer to Interim Lab Report. No Glucose data available Collection DT Specimen Test Name Result Units Ref Range 03/22/2023 13:57 PLASMA CREATININE 1.2 mg/dL 0.7 - 1.2 03/22/2023 13:57 PLASMA .CREAT EGFR(CKD-E 63 Ref: >=60 [facility]T - Lab Tests Selected No data available for: [id number] ANTIBODY Microalbumin/Creatinine Ratio Urine (hso) [facility] - Lab Tests Selected Collection DT Specimen Test Name Result Units Ref Range 05/03/2021 09:35 URINE CREATININE,UR RAN 69.2 mg/dL 58.0 - 161.0 05/03/2021 09:35 URINE ALB/CREAT RATIO,U 39.7 H mg/g creat Ref: <=29.9 05/03/2021 09:35 URINE ALBUMIN,UR 27.5 mg/L Ref: <=29.9 OUTPT MEDICATIONS: DRUG STATUS SIG ACCU-CHEK GUIDE (GLUCOSE) TEST STRIP ACTIVE SIG: USE 1 STRIP TWICE A DAY TO CHECK BLOOD SUGAR--USE WITHIN 3 MINUTES OF REMOVING FROM CONTAINER DICLOFENAC NA 1% TOP GEL ACTIVE SIG: APPLY 4 GRAMS TOPICALLY FOUR TIMES A DAY NEEDED FOR JOINT PAIN LIDOCAINE 4% TOP CREAM ACTIVE SIG: APPLY MODERATE AMOUNT TOPICALLY THREE TIMES A DAY FOR PAIN MENTHOL/M-SALICYLATE 10-15% TOP CREAM ACTIVE SIG: APPLY THIN LAYER TOPICALLY THREE TIMES A DAY FOR MUSCLE PAIN OMEPRAZOLE 20MG EC CAP ACTIVE SIG: TAKE ONE CAPSULE BY MOUTH EVERY DAY ON AN EMPTY STOMACH, AT LEAST 30 MINUTES PRIOR TO A MEAL FOR GERD ATORVASTATIN CALCIUM 40MG TAB ACTIVE SIG: TAKE ONE TABLET BY MOUTH EVERY DAY FOR CHOLESTEROL FINASTERIDE 5MG TAB ACTIVE SIG: TAKE ONE TABLET BY MOUTH EVERY DAY FOR PROSTATE METFORMIN HCL 1000MG TAB ACTIVE SIG: TAKE ONE TABLET BY MOUTH TWICE A DAY FOR DIABETES TAMSULOSIN HCL 0.4MG CAP ACTIVE SIG: TAKE ONE CAPSULE BY MOUTH EVERY EVENING INSULIN,GLARGINE-YFGN 100UNIT/ML PEN 3ML ACTIVE SIG: INJECT 24 UNITS UNDER THE SKIN EVERY EVENING FOR DIABETES NEEDLE,PEN 31G,5MM ACTIVE SIG: USE 1 NEEDLE DIRECTED *DISPOSE OF IN A HARD-PLASTIC CONTAINER WITH A SCREW-ON LID CONTACT GARBAGE HAULER FOR PROPER DISPOSAL SEMAGLUTIDE 1MG/0.75ML INJ PEN 3ML ACTIVE SIG: INJECT 1MG UNDER THE SKIN EVERY WEEK FOR DIABETES INPT MEDICATIONS:NONE Recommendations: meets criteria for personal CGM. Case reviewed with Chief of Metabolic Service Line or proxy; is approved for personal CGM. /toby/ Jessica Lugo RN, [facility] Certified Diabetes Care & Pharmacy Retail Support Specialist Signed: 01/19/2024 08:11 JESSICA LUGO [facility]
--- OUTSIDE RECORDS SUMMARY | 2024-01-22 14:21 | XMS_ITS | Encounter Summary ---
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 Affairs Organization [facility] Address [address] [place] [address] Care Team Providers Care Poultry Veterinarian Name Role Phone CHARLEE FISH Primary Care [...] MEDIC ARE SUPPL EMENT Jul 31, 2018 [id number] [phone] RODNEYBRITTNEYKANE ALEX PATIENT [place] MED[place] SUPPLEMEN [place] MEDIC ARE SUPPL EMENT Jul 31, 2018 [id number] [phone] RENBRITTNEYKANE ALEX PATIENT [place] [facility] (WNR) MEDICARE ADVANTAGE [facility] (WNR) Jul 31, 2017 [id number] [phone] RENAUX,JU ALEX PATIENT [place] MED[place]ARE SUPPLEMEN [place]OT MEDIC ARE SUPPL EMENT Jul 31, 2018 [id number] [phone] RENBRITTNEY,JU ALEX PAT[place] SUPPLEMEN [place] MEDIC ARE SUPPL EMENT Jul 31, 2018 [id number] [phone] RENBRITTNEY,KANE ALEX PATIENT MEDICARE (WNR) MEDICARE (M) PART A May 31, 2011 PART A [id number] [phone] KANE PÉREZ PATIENT MEDICARE (WNR) MEDICARE (M) PART B May 31, 2011 PART B [id number] [phone] KANE PÉREZ PATIENT Selected Encounter This section includes the information on record at OR for the Encounter. Date/Time Encounter Type Encounter Description Reason Provider Source Jan 18, 2024 04:00 PM MTMS BY PHARM RYANNE 15 MIN TELEPHONE PRIMARY CARE ICD-10-CM E11.42 Type 2 diabetes mellitus with diabetic polyneuropathy KARI BRITO Candy Encounter Template Text not used by OR Assessments - Encounter Diagnoses This section includes the primary and secondary diagnoses documented for the Encounter. Date/Time Primary/Secondary Diagnosis Diagnosis Name Provider Source Jan 18, 2024 04:00 PM PRIMARY Type 2 diabetes mellitus with diabetic polyneuropathy KARI BRITO [facility] Plan of Treatment: Future Appointments (+ 6 months) and Future Tests (+/- 45 days) The Plan of Treatment section includes future care activities for the patient [facility]. This section includes future appointments and future orders which are active, pending or scheduled. Future Appointments This section includes appointments that were scheduled to occur 6 months from the date of the Encounter, up to a maximum of 20 appointments. The data comes from all OR treatment facilities. Appointment Date/Time Appointment Type Appointme nt Facility Name Feb 22, 2024 04:00 PM AMBULATORY - NONE [facility] Social History: Smoking Status (Most current) and Tobacco Use (All prior to encounter date) This section includes the most current, and the historical, smoking and tobacco- related health factors from the OR facility where the Encounter took place. Current Smoking Status This section includes the most current smoking, or tobacco-related health factor, from the OR facility where the Encounter took place. Date/Time Current Smoking Status Comment Diego ity Aug 18, 2022 08:30 AM OR-TOBACCO QUIT 15 YRS OR MORE [facility] Tobacco Use History This section includes a history of the smoking, or tobacco-related health factors, that were collected on or before the date of the Encounter. The data comes from the OR facility where the Encounter took place. Date/Time Smoking Status/Tobacco Use Comment F acsamir Aug 18, 2022 08:30 AM OR-TOBACCO QUIT 15 YRS OR MORE [facility] May 03, 2021 08:00 AM VA-TOBACCO FORMER USER [facility] May 03, 2021 08:00 AM VA-TOBACCO QUIT 15 YRS OR MORE [facility] Apr 21, 2020 09:00 AM VA-TOBACCO FORMER USER [facility] Apr 21, 2020 09:00 AM VA-TOBACCO QUIT 15 YRS OR MORE [facility] Apr 03, 2018 03:16 PM FORMER TOBACCO USE >1Y <7Y [facility] Mar 09, 2007 10:41 AM CURRENT TOBACCO USER [facility] Advance Directives: All historical and current Section Date Range: From patient's date of to the date document was created. This section includes ALL of a patient's completed or amended OR Advance and Rescinded Directives. The entries below indicate that a directive exists for the patient, but an actual copy is not included with this document. The data comes from all [facility]. Date Advance Directives Provider Source Jun 22, 2021 ADVANCE DIRECTIVE DISCUSSION ALLYSON GRAF [facility] Jun 22, 2021 ADVANCE DIRECTIVE ALLYSON GRAF [facility] Mar 09, 2007 ADVANCE DIRECTIVE SOLEDAD WOLFF [facility] Encounter Notes: All associated encounter notes This section contains the clinical notes associated to the Encounter. Date/Time Encounter Note(s) Provider Source Jan 18, 2024 02:33 PM PHARMACY NOTE: LOCAL TITLE: PHARMACOTHERAPY-CLINICAL PHARMACY NOTE STANDARD TITLE: PHARMACY NOTE DATE OF NOTE: JAN 18, 2024@14:33 ENTRY DATE: JAN 18, 2024@14:33:10 AUTHOR: KARI BRITO COSIGNER: URGENCY: STATUS: COMPLETED BACKGROUND: BETOMIGUELINA is a 78 YO MALE contacted by phone for medication management, mainly for DM. PMH is significant for T2DM with chronic foot infections, GERD, and HLD. SUBJECTIVE: In brief, continues to follow closely locally given chronic foot wounds. Notes things are improving, but they are still suggesting limited activity to avoid irritating thing. He remains strongly interested in a personal CGM. I reviewed newer criteria and pros/cons of considering one. 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 other times, nuts and beef jerky. Beverages: diet coke, water, coffee Activity: Uses a walker or cane when ambulating, which is limited given his foot wounds. Recently restarted using his exercise bike daily-slowly increasing now. Would like to use his e-bike, but unfortunately is unable to currently. ROS: (-) hypoglycemia symptoms --> Denies. Has had symptoms in the past. We have reviewed the rule of 15s. (-) hyperglycemia symptoms SMBG Readings: AM 01/17 150/ 6/19 165/ 6/18 145/ 6/17 168/ 6/16 123/ 6/15 6/14 140/ 6/13 123/ 6/12 151/ 6/11 120/ 6/10 115/ 6/09 110/ ave: 137 ------Previous Readings-------- October f/u ave: 162 Early f/u ave: 198 Aug f/u ave: 121 Jul f/u ave: 157 Home BP Readings: Reports 120s/80s 90s at home. Did not have actual readings. Nurse checks 3x weekly. Adherence to medications: Manages independently using a pillbox. Denies any issues with missed doses. OBJECTIVE: [...] <210) per VA/DoD guidelines. Last A1c was up and just slightly below goal. Recently reported SMBG values (fastings) are down and at goal. Vet strongly interested in obtaining a personal CGM. He is mainly motivated to work more closely on his diet and feels this would better allow him to monitor things, while working to reduce insulin dose, as able. In light of this, I feel that a CGM would be helpful and will pursue. In the meantime, reasonable to continue the present regimen. PLAN: Medications: -Continue glargine at 24 units qday -fine to adjust by 2 units every 3 days, targeting fastings in the 100- 150 range. -Continue Semaglutide 1 mg q 7 days -Continue other meds, as above Monitoring: - SMBG BID, varying times--including some post-prandials - Will pursue a Ashley 3 CGM -He has an iphone 8 plus Lifestyle: -Consider PT to help with deconditioning #Disease-Specific Med Rec: Completed today #Labs: up-to-date - Educated vet on indication/risks/benefits of new/changed medication. - Education provided on therapeutic nonpharmacologic management to achieve goals. - Vet advised of recent labs. - [place] verbalized understanding to all plans discussed today. Questions were answered to vet's satisfaction. Time spent: 30 minutes RTC: -02/21 pharmD phone prefers to avoid [facility]-only has a cellphone /toby/ KARI BRITO PHARM D, BCPS Clinical Pharmacist Practitioner-[facility] Signed: 01/18/2024 16:41 KARI BRITO [facility]
--- OUTSIDE RECORDS SUMMARY | 2024-01-22 14:21 | XMS_ITS | Clinical Summary ---
Author Organization [facility] Address [place], [place] [address] Care Team Providers Care Party Director Name Role Phone Post, Dave Velazquez MD Primary Care Provider Moshe Enciso MD Unavailable Arie Justin MD Unavailable [phone] [facility], [facility] Unavailable Murali Hoover DPM Unavailable [phone] Allergies No known active allergies Medications [...] to Care Guide Pamella Brennan Phone number [phone]. Alcohol abuse 06/02/2010 03/26/2019 Overview: Sober since 2001. Great success with AA. 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 10/06/2023 Pyogenic arthritis of left shoulder region 06/17/2022 Encounters Date Type Department Care Team Description 11/28/2023 Telephone [facility] [place] [address] [place] [address] Post, Dave Velazquez MD Outside Order 11/03/2023 11:00 AM CDT Office Visit [facility] [place] [address] [place] [address] Post, Dave Velazquez MD Form (diabetic shoes) 11/03/2023 Travel 10/25/2023 1:00 PM CDT Orders Only [facility] [address] [address] [place] [address] Lab, [facility] 10/25/2023 Travel from Last 3 Months Immunizations Name [...] 36.7 ??C (98 ??F) 06/29/2022 8:43 AM MEDIA MARKETING MANAGER Respiratory Rate 18 06/29/2022 8:43 AM MEDIA MARKETING MANAGER Oxygen Saturation 96% 07/21/2023 1:34 PM MEDIA MARKETING MANAGER Inhaled Oxygen Concentration - - Weight 107 kg (236 lb) 11/03/2023 11:13 AM CDT w ith shoes Height 180.3 cm (5' 10.98) 07/21/2023 1:[address] Body Mass Index 32.93 07/21/2023 1:34 PM MEDIA MARKETING MANAGER Plan of Treatment Health Maintenance Due Date [...] 07/16/2020, 04/21/2020 Medical Devices Implanted Type Area Private Secretary Device Identifier Shelf Expiration Date Model / Serial / Lot Tdu-[id number] - [id number] Implanted:Qty: 1 on 09/20/2021 at [facility] Right: Foot [employer] AR-8725-4 4H / / Description:COMPRESSION FT S CREWS CANNULATED, 2.5 MICRO 44MM LOAD 4 [id number] [facility]-1530p - [id number] Implanted:Qty: 1 on 09/20/2021 at [facility] Right: Foot [employer] 03/30/2025 AR-1530P- CP / / [id number] Description:FOREFOOT INTERNA L BRACE IMPLANT SYSTEM, PEEK Screw 4.71f96ef Bio Compositetenodesis Disp Route Relief Driver Pk - [id number] Implanted:Qty: 1 on 09/20/2021 at [facility] Right: Foot [employer] 08/30/2022 AR-1547CD S / / [id number] Ancr Sut 1.3mm Dx Fibertak Suturetape 2 Ndl 26.2mm 08/01 Cir - [id number] Implanted:Qty: 1 on 09/20/2021 at [facility] Right: Foot [employer] 06/29/2026 AR-8990ST / / [id number] Explanted Type Area Private Secretary Device Identifier Shelf Expiration Date Model / Serial / Lot Wire Kirs .160x4km Smooth6/Pk Depuy/Héctor - [id number] Explanted:Qty: 1 on 09/20/2021 at [facility] Right: Foot [employer] / / Description:LOAD 4 8 [id number] [facility]8737-40 - [id number] Explanted:Qty: 1 on 09/20/2021 at [facility] Right: Foot [employer] CA-8737-40 / / Description:2.5 MICRO COMPRE SSION FT DRILLS AND DISPOSABLES, GUIDEWIRE W TROCAR TIP, THREADED, 0.34 IN (.86MM) LOAD 4 7 [id number] Procedures Procedure Name Priority Date/Time Associated Diagnosis [...] diabetes mellitus with diabetic neuropathy, unspecified whether shirt turner insulin use (HC) CT CHEST PE STUDY Routine 05/10/2022 7:5 0 PM CDT OCCULT BLOOD IFOBT STOOL Routine 07/03/2013 7:00 PM MEDIA MARKETING MANAGER Screening for colon cancer from Last 3 Months or Most Recently Relevant to Health Maintenance Results * (ABNORMAL) CBC WITH AUTO DIFFERENTIAL (10/25/2023 12:59 PM CDT) WHITE BLOOD COUNT 8.1 4.5 - 11.0 thou/cu mm 10/25/2023 1:36 PM CDT [facility] RED BLOOD COUNT 4.53 4.30 - 5.90 mil/cu mm 10/25/2023 1:36 PM CDT [facility] HEMOGLOBIN 12.4(L) 13.5 - 17.5 g/dL 10/25/2023 1:36 PM CDT [facility] HEMATOCRIT 38.9 37.0 - 53.0 % 10/25/2023 1:36 PM CDT [facility] MCV 86 80 - 100 fL 10/25/2023 1:36 PM CDT [facility] MCH 27.4 26.0 - 34.0 pg 10/25/2023 1:36 PM CDT [facility] MCHC 31.9(L) 32.0 - 36.0 g/dL 10/25/2023 1:36 PM CDT [facility] RDW 16.5(H) 11.5 - 15.5 % 10/25/2023 1:36 PM CDT [facility] PLATELET COUNT 175 140 - 440 thou/cu mm 10/25/2023 1:36 PM CDT [facility] MPV 10.3 6.5 - 11.0 fL 10/25/2023 1:36 PM CDT [facility] % NEUT 66.6 % 10/25/2023 1:36 PM CDT [facility] % LYMPH 21.6 % 10/25/2023 1:36 PM CDT [facility] % MONO 7.3 % 10/25/2023 1:36 PM CDT [facility] % EOS 4.3 % 10/25/2023 1:36 PM CDT [facility] % BASO 0.2 % 10/25/2023 1:36 PM CDT [facility] ABSOLUTE NEUTROPHILS 5.4 1.7 - 7.0 thou/cu mm 10/25/2023 1:36 PM CDT [facility] ABSOLUTE LYMPHOCYTES 1.7 0.9 - 2.9 thou/cu mm 10/25/2023 1:36 PM CDT [facility] ABSOLUTE MONOCYTES 0.6 <0.9 thou/cu mm 10/25/2023 1:36 PM CDT [facility] ABSOLUTE EOSINOPHILS 0.4 <0.5 thou/cu mm 10/25/2023 1:36 PM CDT [facility] ABSOLUTE BASOPHILS 0.0 <0.3 thou/cu mm 10/25/2023 1:36 PM CDT [facility] Blood BLOOD SPECIMEN / Unknown Venipuncture / Unknown 10/25/2023 12:59 PM CDT 10/25/2023 12:59 PM CDT Narrative [facility] - 10/25/2023 1:36 PM CDT This procedure was originally ordered at [facility]. This procedure was originally ordered at [facility]. Dave Garrett MD HEMATOLOGY [facility] [address] [place] [address], * TSH WITH REFLEX (10/25/2023 12:59 PM CDT) TSH 1.43 0.27 - 4.20 uIU/mL 10/25/2023 10:26 PM CDT [facility] Blood BLOOD SPECIMEN / Unknown Venipuncture / Unknown 10/25/2023 12:59 PM CDT 10/25/2023 12:59 PM CDT Narrative [facility] - 10/25/2023 10:26 PM CDT In Adults, TSH values between 5.00 and 10.00 uIU/ml do not necessarily indicate the presence of Hypothyroidism. Correlation with clinical findings such as presence of goiter and/or Thyroperoxidase (TPO) Antibody may be helpful. For more information please refer to LOWELL 2004; 291: 228-238. Dave Garrett MD CHEMISTRY Performing Organization Address [facility] Co de Phone Number [facility] [address] [place] [address], [place] * (ABNORMAL) Creatinine (10/25/2023 12:59 PM CDT) Pathologist [facility] eGFR 71(L) >90 mL/min/1.7 3m2 10/25/2023 10:26 PM CDT [facility] Comment:As of 2021, eG FR is calculated by the CKD-EPI creatinine equation without race adjustment. ??eGFR can be influenced by muscle mass, exercise, and diet. ??The reported eGFR is an estimation only and is only applicable if the renal function is stable. CREATININE 1.08 0.70 - 1.20 mg/dL 10/25/2023 10:26 PM CDT [facility] Blood BLOOD SPECIMEN / Unknown Venipuncture / Unknown 10/25/2023 12:59 PM CDT 10/25/2023 12:59 PM CDT Dave Garrett MD CHEMISTRY Performing Organization Address [facility] Co de Phone Number [facility] [address] [place] [address], [place] * (ABNORMAL) Hemoglobin A1c (monitoring) (10/25/2023 12:59 PM CDT) HEMOGLOBIN A1C MONITORING (POCT) 7.9(H) <=6.4 % 10/25/2023 3:27 PM CDT [facility] Blood BLOOD SPECIMEN / Unknown Venipuncture / Unknown 10/25/2023 12:59 PM CDT 10/25/2023 12:59 PM CDT Narrative [facility] - 10/25/2023 3:27 PM CDT ? (<=6.9%) [...] Dave Garrett MD CHEMISTRY Performing Organization Address [facility]/State/[facility] Co de Phone Number [facility] [address] [place] [address], * CT Chest PE study TODAY (05/10/2022 [...] Occult Blood Stool (IFOBT) (07/03/2013 7:00 PM MEDIA MARKETING MANAGER) STOOL BLOOD ,IFOBT Negative Negative, Invalid 07/04/2013 3:03 PM MEDIA MARKETING MANAGER [facility] Stool specimen (specimen) STOOL SPECIMEN / Unknown Non-Blood / Unknown 07/03/2013 7:00 PM MEDIA MARKETING MANAGER 07/04/2013 2:39 PM MEDIA MARKETING MANAGER Dave Garrett MD LABORATORY [facility] [address] [place] [address] from Last 3 Months or Most Recently Relevant to Health Maintenance Advance Directives Documents on File Type Date Recorded Patient Credit Collection Specialist Expl anation Healthcare Directive 05/21/2021 3:50 PM [...] Code Status Discussion: Reviewed Preferences Care Teams Party Director Relationship Specialty Start Date End Date Post, Dave Velazquez MD PCP - General 06/02/10 Moshe Enciso MD [address] [facility] [address] [place] [address] Endocrinology Endocrinology 01/04/18 [place] [address] [place], [place] [id number] Surgery - Ophthalmology 03/22/18 [facility] [place] [address] [place], [place] [address] 06/08/21 Murali Hoover, DPM [address] [place] [address] Surgery - Podiatric 01/03/23
--- OUTSIDE RECORDS SUMMARY | 2024-01-22 14:21 | XMS_ITS | Continuity of Care Document ---
Author Name [facility] Organization [facility] Care Team Providers Care Sales Audit Clerk Name Role Phone [facility] Unavailable Unavailable Problems Combined list of problems from Department of Defense and Veterans Affairs facilities. It does not include entries that were removed or entered in error. Problem Status Onset Date Problem Type Date of Resolution Comments Source Exposure to potentially hazardous substance ([facility] [id number]) Active 10/05/19 24 Condition Oct 05, 2023 Entered By: VIJI VIVAS Comment: [facility] CH[facility] Documentation Initiative [facility] Depressive Disorder NOS * (ICD-9-CM 311./300.4) Active Condition [facility] Diabetes mellitus (SNOMED CT 42081360) Active Condition [facility] Diabetic neuropathy Active Condition [facility] Foot Pain (ICD-9-CM 719.47) Active Condition Aug 26 10 Entered By: MALINA WORLEY Comment: left 5th metatarsal fracture [facility] History of amputation of lesser toe Active Condition [facility] Hyperlipidemia (SNOMED CT 09941704) Active Condition [facility] Hyperuricemia Active Condition [place] [facility]) Osteopenia Active Condition [place] [facility] Other Iatrogenic Hypotension Active Condition [place] [facility] Personal History of Alcoholism (ICD-9-CM V11.3) Active Condition [facility] Tobacco user (SNOMED CT 983971334) Active Condition [facility] Diagnosis: ICD-10-CM E11.42 Type 2 diabetes mellitus with diabetic polyneuropathy Active Diagnosis [facility] Diagnosis: ICD-10-CM E11.621 Type 2 diabetes mellitus with foot ulcer Active Diagnosis [facility] Diagnosis: ICD-10-CM Z77.29 Contact with and exposure to other hazardous substances Active Diagnosis [facility] Medications Combined list of outpatient medications [...] DAY ORAL ACTIVE FISHCHARLEE Bowers A 2022 [facility] ASPIRIN 81MG TAB,EC TAKE ONE TABLET BY MOUTH EVERY DAY ORAL ACTIVE JEFF CHOUDHARY ER A 2006 [facility] ATORVASTATI N CA 40MG TAB TAKE ONE TABLET BY MOUTH EVERY DAY FOR CHOLESTE ROL ORAL ACTIVE 04/11/2024 [id number] 4 FISH, CHARLEE A 2022 90 [facility] [place] 40MG TAB TAKE ONE TABLET BY MOUTH EVERY DAY FOR CHOLESTE ROL ORAL DISCONT INUED 07/15/2023 [id number] NAFELICITYLTOD D 2022 90 [facility] CHOLECALCIF QUINTIN TAB TAKE 5000 UNITS BY MOUTH EVERY DAY ORAL ACTIVE FISH, CHARLEE A 2022 [facility] COENZYME Q10 CAP/TAB TAKE 1 CAPSULE BY MOUTH EVERY DAY ORAL ACTIVE FISH, CHARLEE A [address] [facility] CYANOCOBALA MIN 1000MCG TAB TAKE ONE TABLET BY MOUTH EVERY DAY ORAL ACTIVE NAFELICITYLTOD D 2021 [facility] DICLOFENAC NA 1% GEL,TOP APPLY 4 GRAMS TOPICALL Y FOUR TIMES A DAY NEEDED FOR JOINT PAIN TOPICA L ACTIVE 03/22/2024 [id number] 3 CHARLEE FISH A 2022 100 [facility] FINASTERIDE 5MG TAB TAKE ONE TABLET BY MOUTH EVERY DAY FOR PROSTATE ORAL ACTIVE 04/11/2024 [id number] 4 ABE CHARLEE A 2022 90 [facility] FINASTERIDE 5MG TAB TAKE ONE TABLET BY MOUTH EVERY DAY FOR PROSTATE ORAL DISCONT INUED 07/13/2023 [id number] 3 CHARLEE FISH A 2021 90 [facility] FISH OIL 1000MG (500MG DHA/EPA) CAP,ORAL TAKE 1 CAPSULE BY MOUTH TWICE A DAY ORAL ACTIVE JEFF CHOUDHARY ER A 2006 [facility] INSULIN,GLA RGINE-YFGN 100UNIT/ML INJ PEN,3ML INJECT 24 UNITS UNDER THE SKIN EVERY EVENING FOR DIABETES SUBCUT ANEOUS ACTIVE 08/29/2024 [id number] 4 NAIDL,TOD D 2023 5 [facility] INSULIN,GLA RGINE-YFGN 100UNIT/ML INJ PEN,3ML INJECT 22 UNITS UNDER THE SKIN AT BEDTIME FOR DIABETES SUBCUT ANEOUS DISCONT INUED (EDIT) 01/07/2024 [id number] 3 NAIDL,TOD D 2022 5 [facility] INSULIN,GLA RGINE-YFGN 100UNIT/ML INJ PEN,3ML INJECT 20 UNITS UNDER THE SKIN AT BEDTIME FOR DIABETES SUBCUT ANEOUS DISCONT INUED (EDIT) 12/08/2023 [id number] 3 NAIDL,TOD D 2022 5 [facility] INSULIN,GLA RGINE-YFGN 100UNIT/ML INJ PEN,3ML INJECT 18 UNITS UNDER THE SKIN AT BEDTIME FOR DIABETES SUBCUT ANEOUS DISCONT INUED (EDIT) 11/08/2023 [id number] 3 NAIDL,TOD D 2022 5 [facility] LIDOCAINE 4% CREAM,TOP APPLY MODERATE AMOUNT TOPICALL Y THREE TIMES A DAY FOR PAIN TOPICA L ACTIVE 03/22/2024 [id number] 3 CHARLEE FISH A 2022 30 [facility] MAGNESIUM OXIDE 400MG TAB TAKE ONE TABLET BY MOUTH EVERY DAY ORAL ACTIVE CHARLEE FISH A 2022 [facility] MENTHOL/MET HYL SALICYLATE (10-15%) LOW CONC. CREAM,TOP APPLY THIN LAYER TOPICALL Y THREE TIMES A DAY FOR MUSCLE PAIN TOPICA L ACTIVE 03/22/2024 [id number] 3 CHARLEE FISH A 2022 90 [facility] METFORMIN HCL 1000MG TAB TAKE ONE TABLET BY MOUTH TWICE A DAY FOR DIABETES ORAL ACTIVE 04/11/2024 [id number] 4 FISHCHARLEE Robinson 2022 180 [facility] METFORMIN HCL 1000MG TAB TAKE ONE TABLET BY MOUTH TWICE A DAY FOR DIABETES ORAL DISCONT INUED 07/15/2023 [id number] 3 NAIDL,TOD D 2022 180 [facility] OMEPRAZOLE 20MG CAP,EC TAKE ONE CAPSULE BY MOUTH EVERY DAY ON AN EMPTY STOMACH, AT LEAST 30 MINUTES PRIOR TO A MEAL FOR GERD ORAL ACTIVE 03/22/2024 [id number] 4 ABE CHARLEE Robinson 2022 90 [place] [facility] SEMAGLUTIDE 1MG/0.75ML INJ,SOLN,PE N,3ML INJECT 1MG UNDER THE SKIN EVERY WEEK FOR DIABETES SUBCUT ANEOUS ACTIVE 11/07/2024 [id number] 4 NAIDL,TOD D 2023 1 [place] [facility] SEMAGLUTIDE 1MG/0.75ML INJ,SOLN,PE N,3ML INJECT 1MG UNDER THE SKIN EVERY WEEK FOR DIABETES SUBCUT ANEOUS DISCONT INUED 11/08/2023 [id number] 4 NAIDL,TOD D 2022 1 [facility] TAMSULOSIN HCL 0.4MG CAP TAKE ONE CAPSULE BY MOUTH EVERY EVENING ORAL ACTIVE 04/13/2024 [id number] 4 FISH, CHARLEE Robinsno 2022 30 [place] [facility] TAMSULOSIN HCL 0.4MG CAP TAKE ONE CAPSULE BY MOUTH EVERY EVENING ORAL DISCONT INUED 04/11/2024 [id number] 3 CHARLEE FISH 2022 90 [place] [facility] TAMSULOSIN HCL 0.4MG CAP TAKE ONE CAPSULE BY MOUTH EVERY EVENING ORAL DISCONT INUED 08/04/2023 [id number] 3 CHARLEE FISH 2022 90 [facility] TURMERIC CAP/TAB TAKE 500 MG BY MOUTH TWICE A DAY ORAL ACTIVE MATTY POWERS 2018 [place] [facility] Allergies, Adverse Reactions, Alerts Combined list of allergies from Department of Defense and Veterans Affairs facilities. It does not include entries that were removed or entered in error. Substance Category Reaction Severity Reaction type Status Date Reported Comments Source VANCOMYCIN Propensity to adverse reactions to drug (finding) [place] active 8 [facility] Immunizations Combined list of available immunizations from the Department of Defense and Veterans Affairs facilities. Immunization Series Date Given Administered By Site Reaction Lot Number CVX Code Drug Radiographer Cardiac Catheterization Status Comments Source ZOSTER RECOMBINANT 2 2019 187 complet [facility] INFLUENZA, INJECTABLE, QUADRIVALENT, PRESERVATIVE FREE 2019 150 complet [facility] ZOSTER RECOMBINANT 1 2019 187 complet [facility] INFLUENZA, HIGH-DOSE, QUADRIVALENT 2019 197 complet [facility] INFLUENZA, SEASONAL, INJECTABLE, PRESERVATIVE FREE 2017 140 complet [facility] INFLUENZA, INJECTABLE, QUADRIVALENT, PRESERVATIVE FREE 2017 150 complet [facility] INFLUENZA, INJECTABLE, QUADRIVALENT, PRESERVATIVE FREE 2015 150 complet [facility] TDAP 2015 115 complet ed [place] [facility] PNEUMOCOCCAL CONJUGATE PCV 13 2015 133 complet [facility] TD (ADULT), 5 LF TETANUS TOXOID, PRESERVATIVE FREE, ADSORBED 2015 113 complet [facility] INFLUENZA, INJECTABLE, QUADRIVALENT, PRESERVATIVE FREE 2013 150 complet [facility] PNEUMOCOCCAL POLYSACCHARID E PPV23 2010 33 complet [facility] INFLUENZA, UNSPECIFIED FORMULATION 2006 88 complet [facility] PNEUMOCOCCAL, UNSPECIFIED FORMULATION 2006 109 complet [facility] TD(ADULT) UNSPECIFIED FORMULATION 2006 NONE 139 complet [facility] TETANUS TOXOID, UNSPECIFIED FORMULATION [address] [facility] Results Combined list of recent chemistry, [...] Aug 21, 2022 03:48 PM Reporting Lab: [facility] [address] Performing Lab: [facility] [address] [place] [facility] BASIC METABOLIC PANEL+MG CREATININE [MASS/VOLUM E] IN SERUM OR PLASMA 1.2 mg/dL 0.7 - 1.2 03/22 Specimen Type: PLASMA No comment entered. Ordering Provider: ME LEEROY FISH Report Released Date/Time: Aug 21, 2022 03:48 PM Reporting Lab: [facility] [address] Performing Lab: [facility] [address] [place] [facility] BASIC METABOLIC PANEL+MG UREA NITROGEN [MASS/VOLUM E] IN SERUM OR PLASMA 15 mg/dL 8 - 26 03/22 Specimen Type: PLASMA No comment entered. Ordering Provider: ME LEEROY FISH Report Released Date/Time: Aug 21, 2022 03:48 PM Reporting Lab: [facility] [address] Performing Lab: [facility] [address] [place] [facility] BASIC METABOLIC PANEL+MG GLUCOSE [MASS/VOLUM E] IN SERUM OR PLASMA 145 mg/dL 70 - 100 03/22 H Specimen Type: PLASMA No comment entered. Ordering Provider: ME LEEROY FISH Report Released Date/Time: Aug 21, 2022 03:48 PM Reporting Lab: [facility] [address] Performing Lab: [facility] [address] [place] [facility] BASIC METABOLIC PANEL+MG SODIUM [MOLES/VOLU ME] IN SERUM OR PLASMA 138 mmol/L 136 - 145 03/22 Specimen Type: PLASMA No comment entered. Ordering Provider: ME LEEROY FISH Report Released Date/Time: Aug 21, 2022 03:48 PM Reporting Lab: [facility] [address] Performing Lab: [facility] [address] [place] [facility] BASIC METABOLIC PANEL+MG POTASSIUM [MOLES/VOLU ME] IN SERUM OR PLASMA 4.5 mmol/L 3.5 - 5.1 03/22 Specimen Type: PLASMA No comment entered. Ordering Provider: ME LEEROY FISH Report Released Date/Time: Aug 21, 2022 03:48 PM Reporting Lab: [facility] [address] Performing Lab: [facility] [address] [place] [facility] BASIC METABOLIC PANEL+MG CHLORIDE [MOLES/VOLU ME] IN SERUM OR PLASMA 101 mmol/L 98 - 107 03/22 Specimen Type: PLASMA No comment entered. Ordering Provider: ME LEEROY FISH Report Released Date/Time: Aug 21, 2022 03:48 PM Reporting Lab: [facility] [address] Performing Lab: [facility] [address] [place] [facility] BASIC METABOLIC PANEL+MG CARBON DIOXIDE, TOTAL [MOLES/VOLU ME] IN SERUM OR PLASMA 27 mmol/L 22 - 29 03/22 Specimen Type: PLASMA No comment entered. Ordering Provider: ME LEEROY FISH Report Released Date/Time: Aug 21, 2022 03:48 PM Reporting Lab: [facility] [address] Performing Lab: [facility] [address] [place] [facility] BASIC METABOLIC PANEL+MG CALCIUM [MASS/VOLUM E] IN SERUM OR PLASMA 10.0 mg/dL 8.4 - 10.2 03/22 Specimen Type: PLASMA No comment entered. Ordering Provider: ME LEEROY FISH Report Released Date/Time: Aug 21, 2022 03:48 PM Reporting Lab: [facility] [address] Performing Lab: [facility] [address] [place] [facility] BASIC METABOLIC PANEL+MG MAGNESIUM [MASS/VOLUM E] IN SERUM OR PLASMA 1.9 mg/dL 1.6 - 2.6 03/22 Specimen Type: PLASMA No comment entered. Ordering Provider: ME LEEROY FISH Report Released Date/Time: Aug 21, 2022 03:48 PM Reporting Lab: [facility] [address] Performing Lab: [facility] [address] [place] [facility] BASIC METABOLIC PANEL+MG ANION GAP IN SERUM OR PLASMA 10 mmol/L 5 - 15 03/22 Specimen Type: PLASMA No comment entered. Ordering Provider: ME LEEROY FISH Report Released Date/Time: Aug 21, 2022 03:48 PM Reporting Lab: [facility] [address] Performing Lab: [facility] [address] [place] [facility] BASIC METABOLIC PANEL+MG GLOMERULAR FILTRATION RATE/1.73 SQ M.PREDICTED [VOLUME RATE/AREA] IN SERUM, PLASMA OR BLOOD BY CREATININE- BASED FORMULA (CKD-EPI 2020) 63 60 03/22 Specimen Type: PLASMA No comment entered. Ordering Provider: ME LEEROY FISH Report Released Date/Time: Aug 21, 2022 03:48 PM Reporting Lab: [facility] [address] Performing Lab: [facility] [address] [place] [facility] HEMOGLOBI N A1C HEMOGLOBIN A1C/HEMOGLO BIN.TOTAL [...] December 22, 2021 03:46 PM Reporting Lab: [facility] [address] Performing Lab: [facility] [address] [place] [facility] BASIC METABOLIC PANEL+MG CREATININE [MASS/VOLUM E] IN SERUM OR PLASMA 0.9 mg/dL 0.7 - 1.2 08/18 Specimen Type: PLASMA No comment entered. Ordering Provider: ME LEEROY FISH Report Released Date/Time: December 22, 2021 03:46 PM Reporting Lab: [facility] [address] Performing Lab: [facility] [address] [place] [facility] BASIC METABOLIC PANEL+MG UREA NITROGEN [MASS/VOLUM E] IN SERUM OR PLASMA 12 mg/dL 8 - 26 08/18 Specimen Type: PLASMA No comment entered. Ordering Provider: ME LEEROY FISH Report Released Date/Time: December 22, 2021 03:46 PM Reporting Lab: [facility] [address] Performing Lab: [facility] [address] [place] [facility] BASIC METABOLIC PANEL+MG GLUCOSE [MASS/VOLUM E] IN SERUM OR PLASMA 184 mg/dL 70 - 100 08/18 H Specimen Type: PLASMA No comment entered. Ordering Provider: ME LEEROY FISH Report Released Date/Time: December 22, 2021 03:46 PM Reporting Lab: [facility] [address] Performing Lab: [facility] [address] [place] [facility] BASIC METABOLIC PANEL+MG SODIUM [MOLES/VOLU ME] IN SERUM OR PLASMA 137 mmol/L 136 - 145 08/18 Specimen Type: PLASMA No comment entered. Ordering Provider: ME LEEROY FISH Report Released Date/Time: December 22, 2021 03:46 PM Reporting Lab: [facility] [address] Performing Lab: [facility] [address] [place] [facility] BASIC METABOLIC PANEL+MG POTASSIUM [MOLES/VOLU ME] IN SERUM OR PLASMA 3.9 mmol/L 3.5 - 5.1 08/18 Specimen Type: PLASMA No comment entered. Ordering Provider: ME LEEROY FISH Report Released Date/Time: December 22, 2021 03:46 PM Reporting Lab: [facility] [address] Performing Lab: [facility] [address] [place] [facility] BASIC METABOLIC PANEL+MG CHLORIDE [MOLES/VOLU ME] IN SERUM OR PLASMA 102 mmol/L 98 - 107 08/18 Specimen Type: PLASMA No comment entered. Ordering Provider: ME LEEROY FISH Report Released Date/Time: December 22, 2021 03:46 PM Reporting Lab: [facility] [address] Performing Lab: [facility] [address] [place] [facility] BASIC METABOLIC PANEL+MG CARBON DIOXIDE, TOTAL [MOLES/VOLU ME] IN SERUM OR PLASMA 26 mmol/L 22 - 29 08/18 Specimen Type: PLASMA No comment entered. Ordering Provider: ME LEEROY FISH Report Released Date/Time: December 22, 2021 03:46 PM Reporting Lab: [facility] [address] Performing Lab: [facility] [address] [place] [facility] BASIC METABOLIC PANEL+MG CALCIUM [MASS/VOLUM E] IN SERUM OR PLASMA 9.4 mg/dL 8.4 - 10.2 08/18 Specimen Type: PLASMA No comment entered. Ordering Provider: ME LEEROY FISH Report Released Date/Time: December 22, 2021 03:46 PM Reporting Lab: [facility] [address] Performing Lab: [facility] [address] [place] [facility] BASIC METABOLIC PANEL+MG MAGNESIUM [MASS/VOLUM E] IN SERUM OR PLASMA 1.6 mg/dL 1.6 - 2.6 08/18 Specimen Type: PLASMA No comment entered. Ordering Provider: ME LEREOY FISH Report Released Date/Time: December 22, 2021 03:46 PM Reporting Lab: [facility] [address] Performing Lab: [facility] [address] [place] [facility] BASIC METABOLIC PANEL+MG ANION GAP IN SERUM OR PLASMA 9 mmol/L 5 - 15 08/18 Specimen Type: PLASMA No comment entered. Ordering Provider: ME LEEROY FISH Report Released Date/Time: December 22, 2021 03:46 PM Reporting Lab: [facility] [address] Performing Lab: [facility] [address] [place] [facility] BASIC METABOLIC PANEL+MG GLOMERULAR FILTRATION RATE/1.73 SQ M.PREDICTED [VOLUME RATE/AREA] IN SERUM, PLASMA OR BLOOD BY CREATININE- BASED FORMULA (CKD-EPI) 89 60 08/18 Specimen Type: PLASMA No comment entered. Ordering Provider: ME LEEROY FISH Report Released Date/Time: December 22, 2021 03:46 PM Reporting Lab: [facility] [address] Performing Lab: [facility] [address] [place] [facility] Vital Signs Combined list of inpatient [...] ADM Date DC Date Status [facility] O/P EST MOD 30-39 MIN [id number] Diagnos is: ICD-10- CM E11.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
Rhiannon FISH 08/18 [facility] [place] [facility] Outpatient Encounter [id number] 08/21 [place] [facility] [place] [facility] HC PRO PHONE CALL 11-20 MIN [id number] Diagnos is: ICD-10- CM E11.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
KARI BRITO 08/29 [place] [facility] [place] [facility] PRO PHONE CALL 11-20 MIN [id number] Diagnos is: ICD-10- CM E11.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
NAIDL,KARI 09/29 [facility] PRO PHONE CALL 21-30 MIN [id number] Diagnos is: ICD-10- CM E11.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
NAIDL,KARI 11/07 [place] [facility] PRO PHONE CALL 11-20 MIN [id number] Diagnos is: ICD-10- CM E11.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
NAIDL,KARI 12/07 [facility] Outpatient Encounter [id number] Diagnos is: ICD-10- CM Z77.29 Contact with and exposur e to other [facility]<br/ > JEANINE,MATH [facility] J 12/27 [facility] Outpatient Encounter [id number] Diagnos is: ICD-10- CM Z77.29 Contact with and exposur e to other [facility]<br/ > JEANINE,MATH ILDE J 12/27 [facility] PRO PHONE CALL 11-20 MIN [id number] Diagnos is: ICD-10- CM E11.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
NAIDL,KARI 01/06 [facility] Outpatient Encounter [id number] 03/10 [facility] PRO PHONE CALL 11-20 MIN [id number] Diagnos is: ICD-10- CM E11.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
NAIDL,KARI 03/14 [place] [facility] [place] [facility] OFF[facility] O/P EST LOW 20-29 MIN [id number] Diagnos is: ICD-10- CM E11.621 Type 2 diabete s mellitu s with foot ulcer<b r/> Rhiannon FISH A 03/22 [place] [facility] [place] [facility] HC PRO PHONE CALL 21-30 MIN [id number] Diagnos is: ICD-10- CM E11.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
NAIDL,KARI 04/18 [place] [facility] [place] [facility] HC PRO PHONE CALL 21-30 MIN [id number] Diagnos is: ICD-10- CM E11.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
NAIDL,KARI 07/11 [place] [facility] [place] [facility] MTMS BY PHARM ADDL 15 MIN [id number] Diagnos is: ICD-10- CM E11.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
NAIDL,KARI 08/29 [place] [facility] [place] [facility] MTMS BY PHARM EST 15 MIN [id number] Diagnos is: ICD-10- CM E11.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
AWKER,SOLEDAD L 10/10 [place] [facility] [place] [facility] Outpatient Encounter [id number] 10/16 [place] [facility] [place] [facility] MTMS BY PHARM EST 15 MIN [id number] Diagnos is: ICD-10- CM E11.621 Type 2 diabete s mellitu s with foot ulcer<b r/> NAIDL,KARI 11/06 [place] [facility] [place] [facility] MTMS BY PHARM ADDL 15 MIN [id number] Diagnos is: ICD-10- CM E11.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
NAIDL,KARI 11/22 [facility] MTMS BY PHARM ADDL 15 MIN [id number] Diagnos is: ICD-10- CM E11.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
NAIDL,KARI 01/17 [facility] Outpatient Encounter [id number] Diagnos is: ICD-10- CM E11.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
DAWNA ,MILAGRO 01/18 [facility]MGMT [facility]-10 [id number] Diagnos is: ICD-10- CM E11.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
MOE CHOWDHURY 01/18 [facility] Social History Combined list of available smoking, tobacco, and other social history from Department of Defense and Veterans Affairs facilities. Social History Type Response Date Comment Sourc e Tobacco smoking status [facility] VA-TOBACCO FORMER USER 08/18/2022 [facility] History of tobacco use IN-TOBACCO QUIT 1 5 YRS OR MORE 08/18/2022 [facility] History of tobacco use IN-TOBACCO QUIT 1 5 YRS OR MORE 05/03/2021 [facility] History of tobacco use IN-TOBACCO QUIT 1 5 YRS OR MORE 04/21/2020 [facility] History of tobacco use FORMER TOBACCO US E >1Y <7Y 04/03/2018 [facility] History of tobacco use CURRENT TOBACCO USER 03/09/2007 [facility] Plan of Care List of future care activities from [facility] facilities. Additional future care activities may be listed in the Assessment and Plan section. Date/Time Care Activity Care Activity Detail Facili ty 02/22/2024 AMBULATORY - NONE AMBULATORY - NONE [facility] Advance Directives List of completed, amended, or rescinded Advance Directives on record at [facility] of [facility] facilities. An actual copy of the Directive is not included. Date Advance Directive Provider Source 06/22/2021 ADVANCE DIRECTIVE DISCUSSION ALLYSON GRAF [facility] 06/22/2021 ADVANCE DIRECTIVE ALLYSON GRAF [facility] 03/09/2007 ADVANCE DIRECTIVE SOLEDAD WOLFF [facility]
--- OUTSIDE RECORDS SUMMARY | 2024-01-22 14:21 | XMS_ITS | Continuity of Care Document ---
Author Organization [facility] Address [address] [address] [place] [address] Phone Care Team Providers Care Procurement Intern Name Role Phone Link Fredo ROGERS Unavailable Unavailable Medications Medication Instructions Dosage Effective Dates (start - stop) Status Comments MiralaxBisacodylMagCit Colon Prep Use as directed - Active Advance Directives Directive Yes / No Effective Date File Name No Information Encounters Encounter Description Practice Location Reason(s) For Visit Diagnoses Date Provider Providers Copied on Encounter [facility], [address] [address], [place], [place], [id number], tel:[phone] [facility] No Information Link MD Yoo. [address] [facility] [address], [place], [place], [address], [place]. tel:[phone] [facility], [address] [address], [place], [place], [address], tel:[phone] No Information No Information Referring Provider: Dave Garrett MD, [address] [facility] [address], [place], [address]. tel:[phone] Family History Family Member Type Diagnosis Age At Onset No Information Payers Payer name Insurance type Covered libertarian ID Authoriza tion(s) No Information Social History Type Description Quantity Date Captured Comments Sex Male Smoking Status No Information Chief Complaint And Reason For Visit No Information Reason For Referral Reason For Referral No Information History Of Present Illness Encounter Date Complaint History Of Prese nt Illness No Information Functional Status Date Functional Assessmen t No Information Instructions Date Instruction Additional Infor mation No Information Assessments Type Assessment Date No Information Patient Care Teams Name Effective Dates (start - stop) Status Members No Information
--- OUTSIDE RECORDS SUMMARY | 2024-01-22 14:21 | XMS_ITS | Encounter Summary ---
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 Organization [facility] Address [address] [place] [address] Care Team Providers Care Investment Banking Analyst Name Role Phone CHARLEE FISH Primary [...] MEDIC ARE SUPPL EMENT Jul 31, 2018 [id number] RODNEYBRITTNEYKANE ALEX PATIENT [place] MED[place] SUPPLEMEN [place] MEDIC ARE SUPPL EMENT Jul 31, 2018 [id number] [phone] RENBRITTNEYKANE ALEX PATIENT [place] [facility] (WNR) MEDICARE ADVANTAGE [facility] (WNR) Jul 31, 2017 [id number] [phone] RENBRITTNEY,KANE ALEX PATIENT [place] SUPPLEMEN [place]OT MEDIC ARE SUPPL EMENT Jul 31, 2018 [id number] RENBRITTNEY,KANE ALEX PATIENT [place] SUPPLEMEN [place] MEDIC ARE SUPPL EMENT Jul 31, 2018 [id number] [phone] RENBRITTNEY,KANE ALEX PATIENT MEDICARE (WNR) MEDICARE (M) PART A May 31, 2011 PART A [id number] [phone] KANE PÉREZ PATIENT MEDICARE (WNR) MEDICARE (M) PART B May 31, 2011 PART B [id number] [phone] KANE PÉREZ PATIENT Selected Encounter This section includes the information on record at [place] for the Encounter. Date/Time Encounter Type Encounter Description Reason Provider Source Jan 19, 2024 09:01 AM QNHP OL DIG ASSMT&MGMT 5-10 CLINICAL PHARMACY ICD-10-CM E11.42 Type 2 diabetes mellitus with diabetic polyneuropathy HUBERT CHOWDHURY E Encounter Template Text not used by [place] Assessments - Encounter Diagnoses This section includes the primary and secondary diagnoses documented for the Encounter. Date/Time Primary/Secondary Diagnosis Diagnosis Name Provider Source Jan 19, 2024 09:04 AM PRIMARY Type 2 diabetes mellitus with diabetic polyneuropathy HUBERT CHOWDHURY [facility] Plan of Treatment: Future Appointments (+ 6 months) and Future Tests (+/- 45 days) The Plan of Treatment section includes future care activities for the patient from [facility] [place] [facility] This section includes future appointments and future orders which are active, pending or scheduled. Future Appointments This section includes appointments that were scheduled to occur 6 months from the date of the Encounter, up to a maximum of 20 appointments. The data comes from all [place] treatment facilities. Appointment Date/Time Appointment Type Appointme nt Facility Name Feb 22, 2024 04:00 PM AMBULATORY - NONE [facility] Social History: Smoking Status (Most current) and Tobacco Use (All prior to encounter date) This section includes the most current, and the historical, smoking and tobacco- related health factors from the [place] facility where the Encounter took place. Current Smoking Status This section includes the most current smoking, or tobacco-related health factor, from the [place] facility where the Encounter took place. Date/Time Current Smoking Status Comment Diego peng Aug 18, 2022 08:30 AM VA-TOBACCO FORMER USER [facility] Tobacco Use History This section includes a history of the smoking, or tobacco-related health factors, that were collected on or before the date of the Encounter. The data comes from the [place] facility where the Encounter took place. Date/Time Smoking Status/Tobacco Use Comment Darline soriano Aug 18, 2022 08:30 AM [place]-TOBACCO QUIT 15 YRS OR MORE [facility] May 03, 2021 08:00 AM VA-TOBACCO FORMER USER [facility] May 03, 2021 08:00 AM VA-TOBACCO QUIT 15 YRS OR MORE [facility] Apr 21, 2020 09:00 AM VA-TOBACCO FORMER USER [facility] Apr 21, 2020 09:00 AM VA-TOBACCO QUIT 15 YRS OR MORE [facility] Apr 03, 2018 03:16 PM FORMER TOBACCO USE >1Y <7Y [facility] Mar 09, 2007 10:41 AM CURRENT TOBACCO USER [facility] Advance Directives: All historical and current Section Date Range: From patient's date of to the date document was created. This section includes ALL of a patient's completed or amended [place] Advance and Rescinded Directives. The entries below indicate that a directive exists for the patient, but an actual copy is not included with this document. The data comes from all [facility]. Date Advance Directives Provider Source Jun 22, 2021 ADVANCE DIRECTIVE DISCUSSION ALLYSON GRAF [facility] Jun 22, 2021 ADVANCE DIRECTIVE ALLYSON GRAF [facility] Mar 09, 2007 ADVANCE DIRECTIVE SOLEDAD WOLFF [facility] Encounter Notes: All associated encounter notes This section contains the clinical notes associated to the Encounter. Date/Time Encounter Note(s) Provider Source Jan 19, 2024 09:01 AM PHARMACY CONSULT: LOCAL TITLE: PHARMACY PRIOR AUTHORIZATION APPROVED CONSULT STANDARD TITLE: PHARMACY CONSULT DATE OF NOTE: JAN 19, 2024@09:01 ENTRY DATE: JAN 19, 2024@09:01:32 AUTHOR: HUBERT CHOWDHURY EXP COSIGNER: URGENCY: STATUS: COMPLETED The medical record has been reviewed with regard to this prior authorization drug request. Medication requested: GLUCOSE SENSOR FREESTYLE REBECCA 3 Medication indication: t2dm Medical history relevant to this request: Previous Therapies: fingersticks Other, rationale for use: SEE DM DEVICE CONSULT NOTE APPROVAL Expected Duration: 6 month trial The request is approved - A documented therapeutic failure of the preferred formulary alternative(s) exists Active Outpatient Medications (including Supplies): ACCU-CHEK GUIDE (GLUCOSE) TEST STRIP USE 1 STRIP TWICE ACTIVE A DAY TO CHECK BLOOD SUGAR--USE WITHIN 3 MINUTES OF REMOVING FROM CONTAINER ATORVASTATIN CALCIUM 40MG TAB TAKE ONE TABLET BY MOUTH ACTIVE EVERY DAY FOR CHOLESTEROL DICLOFENAC NA 1% TOP GEL APPLY 4 GRAMS TOPICALLY FOUR ACTIVE TIMES A DAY NEEDED FOR JOINT PAIN FINASTERIDE 5MG TAB TAKE ONE TABLET BY MOUTH EVERY DAY FOR ACTIVE PROSTATE GLUCOSE SENSOR FREESTYLE REBECCA 3 USE 1 SENSOR EVERY TWO PENDING WEEKS INSULIN,GLARGINE-YFGN 100UNIT/ML PEN 3ML INJECT 24 UNITS ACTIVE UNDER THE SKIN EVERY EVENING FOR DIABETES LIDOCAINE 4% TOP CREAM APPLY MODERATE AMOUNT TOPICALLY ACTIVE THREE TIMES A DAY FOR PAIN MENTHOL/M-SALICYLATE 10-15% TOP CREAM APPLY THIN LAYER ACTIVE TOPICALLY THREE TIMES A DAY FOR MUSCLE PAIN METFORMIN HCL 1000MG TAB TAKE ONE TABLET BY MOUTH TWICE A ACTIVE DAY FOR DIABETES NEEDLE,PEN 31G,5MM USE 1 NEEDLE DIRECTED *DISPOSE OF IN ACTIVE A HARD-PLASTIC CONTAINER WITH A SCREW-ON LID [facility] OMEPRAZOLE 20MG EC CAP TAKE ONE CAPSULE BY MOUTH EVERY DAY ACTIVE ON AN EMPTY STOMACH, AT LEAST 30 MINUTES PRIOR TO A MEAL FOR GERD SEMAGLUTIDE 1MG/0.75ML INJ PEN 3ML INJECT 1MG UNDER THE ACTIVE SKIN EVERY WEEK FOR DIABETES TAMSULOSIN HCL 0.4MG CAP TAKE ONE CAPSULE BY MOUTH EVERY ACTIVE EVENING Non-VA ASCORBIC ACID 500MG TAB 500MG MOUTH TWICE A DAY ACTIVE Non-VA ASPIRIN 81MG EC TAB 81 MG MOUTH EVERY DAY ACTIVE Non-VA CHOLECALCIFEROL TAB 5000 UNITS MOUTH EVERY DAY ACTIVE Non-VA COENZYME Q10 100MG TAB/CAP 1 CAPSULE MOUTH EVERY ACTIVE DAY Non-VA CYANOCOBALAMIN 1000MCG TAB 1000MCG MOUTH EVERY DAY ACTIVE Non-VA FISH OIL 1000MG (500MG DHA/EPA) CAP 1 GM MOUTH ACTIVE TWICE A DAY Non-VA MAGNESIUM OXIDE 400MG TAB 400MG MOUTH EVERY DAY ACTIVE Non-VA TURMERIC CAP/TAB 500 MG MOUTH TWICE A DAY ACTIVE /toby/ Hubert Chowdhury, Pharm.D PHARMACIST Signed: 01/19/2024 09:04 HUBERT CHOWDHURY [facility]
== END 2024-01-22 14:01 | disposition home or self-care (01) ==
LOC: WOUND 14:01
PROVIDERS: Visit Provider Nurse Practitioner Family
DX: E11.621 Type 2 diabetes mellitus with foot ulcer (principal); L97.518 Non-pressure chronic ulcer of other part of right foot with other specified severity; Z79.84 Long term (current) use of oral hypoglycemic drugs
CPT/HCPCS: G0463

== ENCOUNTER 2024-02-19 14:45 | Outpatient (CLI) | payer MEDICARE, BC, SELFPAY ==
--- OUTSIDE RECORDS SUMMARY | 2024-02-19 14:47 | XMS_ITS | Referral Summary ---
Author Organization [facility] Address [address] [place] [address] Care Team Providers Care Metallographer Name Role Phone Post, Dave Wakefield Primary Care Provider [phone] Medications Medication Sig Dispensed Refills Start Date [...] Comments Blood Pressure 148/85 06/26/2018 5:58 PM FOREIGN CAR MECHANIC Pulse 90 06/26/2018 5:58 PM FOREIGN CAR MECHANIC Temperature 36.6 ??C (97.8 ??F) 06/26/2018 5:58 PM CS T Respiratory Rate 18 06/26/2018 5:58 PM FOREIGN CAR MECHANIC Oxygen Saturation 95% 06/26/2018 7:00 PM FOREIGN CAR MECHANIC Inhaled Oxygen Concentration - - Weight 112 kg (247 lb) 06/26/2018 5:58 PM FOREIGN CAR MECHANIC Height 180.3 cm (5' 11) 06/26/2018 5:58 PM FOREIGN CAR MECHANIC Body Mass Index 34.45 06/26/2018 5:58 PM FOREIGN CAR MECHANIC Plan of Treatment Not on file Care Teams Metallographer Relationship Specialty Start Date End Date Post, Dave Wakefield PCP - General Internal Medicine 06/26/18
--- OUTSIDE RECORDS SUMMARY | 2024-02-19 14:47 | XMS_ITS | Clinical Summary ---
Author Organization [facility] Address [address] [place] [address] Care Team Providers Care Correctional Therapy Teacher Name Role Phone Post, Dave Wakefield Primary Care Provider [phone] Medications Medication Sig Dispensed Refills Start Date [...] Comments Blood Pressure 148/85 06/26/2018 5:58 PM DEALER ANALYST Pulse 90 06/26/2018 5:58 PM DEALER ANALYST Temperature 36.6 ??C (97.8 ??F) 06/26/2018 5:58 PM CS T Respiratory Rate 18 06/26/2018 5:58 PM DEALER ANALYST Oxygen Saturation 95% 06/26/2018 7:00 PM DEALER ANALYST Inhaled Oxygen Concentration - - Weight 112 kg (247 lb) 06/26/2018 5:58 PM DEALER ANALYST Height 180.3 cm (5' 11) 06/26/2018 5:58 PM DEALER ANALYST Body Mass Index 34.45 06/26/2018 5:58 PM DEALER ANALYST Plan of Treatment Not on file Care Teams Correctional Therapy Teacher Relationship Specialty Start Date End Date Post, Dave Wakefield PCP - General Internal Medicine 06/26/18
--- OUTSIDE RECORDS SUMMARY | 2024-02-19 14:47 | XMS_ITS | Encounter Summary ---
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 [facility] [place] Organization [facility] [place] Address [address] [place] [address] Care Team Providers Care Wire Saw Operator Name Role Phone CHARLEE FISH Primary Care Provider Unavailab le Insurance Providers: All historical and current [...] MEDIC ARE SUPPL EMENT Jul 31, 2018 [id number] KANE PÉREZ ALEX PATIENT [place] SUPPLEMEN [place] MEDIC ARE SUPPL EMENT Jul 31, 2018 [id number] [phone] RENBRITTNEY,JU ALEX PATIENT [place] ([place]NR) MEDICARE ADVANTAGE MCR (WNR) Jul 31, 2017 [id number] [phone] RENBRITTNEY,KANE ALEX PATIENT [place] SUPPLEMEN [place]OT MEDIC ARE SUPPL EMENT Jul 31, 2018 [id number] RENBRITTNEY,JU ALEX PAT[place] SUPPLEMEN [place] MEDIC ARE SUPPL EMENT Jul 31, 2018 [id number] [phone] KANE PÉREZ PATIENT MEDICARE (WNR) MEDICARE (M) PART A May 31, 2011 PART A [id number] [phone] KANE PÉREZ PATIENT MEDICARE (WNR) MEDICARE (M) PART B May 31, 2011 PART B [id number] KANE PÉREZ PATIENT Selected Encounter This section includes the information on record at [place] for the Encounter. Date/Time Encounter Type Encounter Description Reason Provider Source Mar 22, 2023 02:45 PM OFFICE O/P EST LOW 20-29 MIN PRIMARY CARE/MEDICINE ICD-10-CM E11.621 Type 2 diabetes mellitus with foot ulcer SOSA FISH [facility] Encounter Template Text not used by [place] Assessments - Encounter Diagnoses This section includes the primary and secondary diagnoses documented for the Encounter. 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 This section includes future appointments and [...] 18, 2023 03:30 PM AMBULATORY - NONE [facility] Jul 11, 2023 03:30 PM AMBULATORY - NONE [facility] Aug 29, 2023 03:30 PM AMBULATORY - NONE [facility] Lab Results: +/- 30 days of the encounter This section includes the Chemistry and Hematology Lab Results on record with [place] for the patient. Radiology Reports and Pathology Reports are provided separately, in subsequent sections. Lab Results This section contains the Chemistry/Hematology Results that were resulted 30 days before or 30 daysafter the date of the Encounter. Date/Time Source Result Type Result - Unit Interpretation Reference Range Comment Mar 22, 2023 01:57 PM [facility] HEMOGLOBIN A1C Specimen Type: BLOOD Comment: Values [...] PM Reporting Lab: [facility] [id number] Performing Lab: [facility] [id number] HEMOGLOBIN A1C 7.1 H 4.0-6.0 Mar 22, 2023 01:57 PM [facility] BASIC METABOLIC PANEL+MG Specimen Type: PLASMA No comment entered. Ordering Provider: SOSA FISH Report Released Date/Time: Aug 21, 2022 03:48 PM Reporting Lab: [facility] [id number] Performing Lab: [facility] [id number] CREATININE 1.2 mg/dL 0.7-1.2 UREA NITROGEN 15 mg/dL 8-26 GLUCOSE 145 mg/dL H 70-100 SODIUM 138 mmol/L 136-145 POTASSIUM 4.5 mmol/L 3.5-5.1 CHLORIDE 101 mmol/L 98-107 CO2 27 mmol/L 22-29 CALCIUM 10.0 mg/dL 8.4-10.2 MAGNESIUM 1.9 mg/dL 1.6-2.6 ANION GAP 10 mmol/L 5-15 .CREAT EGFR(CKD-EPI ) 63 >60 Vital [...] % 0 71 in 221 lb 31 [facility] Social History: Smoking Status (Most [...] ity Aug 18, 2022 08:30 AM VA-TOBACCO QUIT 15 YRS OR MORE [facility] Tobacco Use History This section includes a history of the smoking, or tobacco-related health factors, that were collected on or before the date of the Encounter. The data comes from the [facility] where the Encounter took place. Date/Time Smoking Status/Tobacco Use Comment F [facility]ility Aug 18, 2022 08:30 AM VA-TOBACCO QUIT 15 YRS OR MORE [facility] May 03, 2021 08:00 AM VA-TOBACCO FORMER USER [facility] May 03, 2021 08:00 AM VA-TOBACCO QUIT 15 YRS OR MORE [facility] Apr 21, 2020 09:00 AM VA-TOBACCO FORMER USER [facility] Apr 21, 2020 09:00 AM VA-TOBACCO QUIT 15 YRS OR MORE [facility] Apr 03, 2018 03:16 PM FORMER TOBACCO USE >1Y <7Y [facility] Mar 09, 2007 10:41 AM CURRENT TOBACCO USER [facility] Advance Directives: All historical and current Section Date Range: From patient's date of to the date document was created. This section includes ALL of a patient's completed or amended [place] Advance and Rescinded Directives. The entries below indicate that a directive exists for the patient, but an actual copy is not included with this document. The data comes from all [facility]. Date Advance Directives Provider Source Jun 22, 2021 ADVANCE DIRECTIVE DISCUSSION ALLYSON GRAF [facility] Jun 22, 2021 ADVANCE DIRECTIVE ALLYSON GRAF [facility] Mar 09, 2007 ADVANCE DIRECTIVE SOLEDAD WOLFF [facility] Encounter Notes: All associated encounter notes [...] hospital. He is working with an outside ordnance technician. He says he just now started driving [...] catheterization for about 6 months after the hospitalizaiton, but is now able to urinate on his own, without catheter. He has been workign with the diabetes customer care voice consultant on medication management. He has been well controlled with the addition of semaglutide. Initially had some GI issues with semaglutide, which are now resolved. Active problems - Computerized Problem List is the source for the followin. Foot Pain - left 5th metatarsal fracture 2. Diabetes mellitus (SNOMED CT 57999332) 3. Hyperlipidemia (SNOMED CT 87919969) 4. Depressive Disorder NOS * 5. Tobacco user (SNOMED CT 092536160) 6. Personal History of Alcoholism 7. Other [...] Edema ()None ()1+ ()2+ ()3+ ()4+ Pulses ()VERIFICATION MANAGER ()1+ ()2+ ()3+ ()4+ Gait: in a wheel chair Data/Labs: reviewed,. A1c is 7.1 (X)Patient was informed of available lab, imaging, and other study results associated with today's visit. Assessment and Plan: 1. R heel diabetic wound. He is following with an outside ordnance technician, and getting home wound care. The wound [...] were also reviewed/updated for accuracy. Allergies/ADR from [facility] may not display in CPRS. Use JLV MRT5 - Allergies/ADRs FACILITY ALLERGY/ADR -------- No Remote Allergy/ADR Data available for this patient [facility] VANCOMYCIN Active and Recently Outpatient Medications (including [...] MD Physician Signed: 03/26/2023 20:39 CHARLEE FISH [facility] Mar 22, 2023 02:15 PM INTERNAL MEDICINE [...] due to responses to other questions. 4. [place] numb or detached from people, activities, or your surroundings? Response not required due to responses to other questions. 5. [place] guilty or unable to stop blaming yourself [...] Date Documented: 03/22/23 14:18 /toby/ HALLE ESCUDERO L.P.N, LPN Signed: 03/22/2023 14:19 HALLE ESCUDERO [facility]
--- OUTSIDE RECORDS SUMMARY | 2024-02-19 14:47 | XMS_ITS | Clinical Summary ---
Author Organization [facility] Address [place], [place] [address] Care Team Providers Care Log Chain Worker Name Role Phone Post, Dave Vleazquez MD Primary Care Provider Moshe Enciso MD Unavailable Arie Justin MD Unavailable [phone] [facility], Met Unavailable Murali Hoover DPM Unavailable [phone] Allergies No known active allergies Medications [...] to Care Guide Pamella Brennan Phone number [phone]. Alcohol abuse 06/02/2010 03/26/2019 Overview: Sober since 2001. Great success with AA. 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 10/06/2023 Pyogenic arthritis of left shoulder region 06/17/2022 Encounters Date Type Department Care Team Description 11/28/2023 Telephone [facility] [address] [facility] [address] [place] [address] Post, Dave Velazquez MD Outside Order from Last 3 Months Immunizations Name Administration [...] 36.7 ??C (98 ??F) 06/29/2022 8:43 AM GLOBAL CHIEF CREATIVE OFFICER Respiratory Rate 18 06/29/2022 8:43 AM GLOBAL CHIEF CREATIVE OFFICER Oxygen Saturation 96% 07/21/2023 1:34 PM GLOBAL CHIEF CREATIVE OFFICER Inhaled Oxygen Concentration - - Weight 107 kg (236 lb) 11/03/2023 11:13 AM CDT w ith shoes Height 180.3 cm (5' 10.98) 07/21/2023 1:[address] Body Mass Index 32.93 07/21/2023 1:34 PM GLOBAL CHIEF CREATIVE OFFICER Plan of Treatment Health Maintenance Due Date [...] 07/16/2020, 04/21/2020 Medical Devices Implanted Type Area Soil Specialist Device Identifier Shelf Expiration Date Model / Serial / Lot [id number] - [id number] Implanted:Qty: 1 on 09/20/2021 at [facility] Right: Foot [employer] AR-8725-4 4H / / Description:COMPRESSION FT S CREWS CANNULATED, 2.5 MICRO 44MM LOAD 4 7 [id number] [facility]-1530p - [id number] Implanted:Qty: 1 on 09/20/2021 at [facility] Right: Foot [employer] 03/30/2025 AR-1530P- CP / / [id number] Description:FOREFOOT INTERNA L BRACE IMPLANT SYSTEM, PEEK Screw 4.13t45we Bio Compositetenodesis Disp Baked Goods Stock Clerk Pk - [id number] Implanted:Qty: 1 on 09/20/2021 at [facility] Right: Foot [employer] 08/30/2022 AR-1547CD S / / [id number] Ancr Sut 1.3mm Dx Fibertak Suturetape 2 Ndl 26.2mm 08/01 [facility] - [id number] Implanted:Qty: 1 on 09/20/2021 at [facility] Right: Foot [employer] 06/29/2026 AR-8990ST / / [id number] Explanted Type Area Soil Specialist Device Identifier Shelf Expiration Date Model / Serial / Lot Wire Kirs .[id number] Smooth6/Pk Depuy/Héctor - [id number] Explanted:Qty: 1 on 09/20/2021 at [facility] Right: Foot [employer] / / Description:LOAD 4 8 [id number] [facility]8737-40 - [id number] Explanted:Qty: 1 on 09/20/2021 at [facility] Right: Foot [employer] AR-8737-40 / / Description:2.5 MICRO COMPRE SSION FT DRILLS AND DISPOSABLES, GUIDEWIRE W TROCAR TIP, THREADED, 0.34 IN (.86MM) LOAD 4 7 [id number] Procedures Procedure Name Priority Date/Time Associated Diagnosis Comments CT CHEST PE STUDY Routine 05/10/2022 7:5 0 PM CDT OCCULT BLOOD IFOBT STOOL Routine 07/03/2013 7:00 PM GLOBAL CHIEF CREATIVE OFFICER Screening for colon cancer from Last 3 Months or Most Recently Relevant to Health Maintenance Results * CT Chest PE study TODAY (05/10/2022 [...] Occult Blood Stool (IFOBT) (07/03/2013 7:00 PM GLOBAL CHIEF CREATIVE OFFICER) STOOL BLOOD ,IFOBT Negative Negative, Invalid 07/04/2013 3:03 PM GLOBAL CHIEF CREATIVE OFFICER [facility] Stool specimen (specimen) STOOL SPECIMEN / Unknown Non-Blood / Unknown 07/03/2013 7:00 PM GLOBAL CHIEF CREATIVE OFFICER 07/04/2013 2:39 PM GLOBAL CHIEF CREATIVE OFFICER Dave Garrett MD LABORATORY [facility] [address] [place] [address] from Last 3 Months or Most Recently Relevant to Health Maintenance Advance Directives Documents on File Type Date Recorded Patient Head Of Conservation Expl anation Healthcare Directive 05/21/2021 3:50 PM [...] Code Status Discussion: Reviewed Preferences Care Teams Log Chain Worker Relationship Specialty Start Date End Date Post, Dave Velazquez MD PCP - General 06/02/10 Moshe Enciso MD [address] [facility] [address] [place] [address] Endocrinology Endocrinology 01/04/18 [place] [address] [place] [address] Surgery - Ophthalmology 03/22/18 [facility] [address] [place] [address] 06/08/21 Murali Hoover DPM [address] [address] Surgery - Podiatric 01/03/23
--- OUTSIDE RECORDS SUMMARY | 2024-02-19 14:47 | XMS_ITS | Encounter Summary ---
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 [facility] Address [address] [place] [address] Care Team Providers Care Personal Secretary Name Role Phone CHARLEE FISH Primary Care [...] MEDIC ARE SUPPL EMENT Jul 31, 2018 [id number] [phone] RENBRITTNEY,KANE ALEX PATIENT [place] MEDICARE SUPPLEMEN [place] MEDIC ARE SUPPL EMENT Jul 31, 2018 [id number] [phone] RENAUX,JU ALEX PATIENT [place] MCR ([place]NR) MEDICARE ADVANTAGE MCR (WNR) Jul 31, 2017 [id number] [phone] RENAUX,JU ALEX PATIENT [place] MEDICARE SUPPLEMEN SCOT MEDIC ARE SUPPL EMENT Jul 31, 2018 [id number] [phone] RENAUX,JU ALEX PATIENT [place] SUPPLEMEN [place] MEDIC ARE SUPPL EMENT Jul 31, 2018 [id number] [phone] RENAUX,JU ALEX PATIENT MEDICARE (WNR) MEDICARE (M) PART A May 31, 2011 PART A [id number] [phone] KANE PÉREZ PATIENT MEDICARE (WNR) MEDICARE (M) PART B May 31, 2011 PART B [id number] [phone] KANE PÉREZ PATIENT Selected Encounter This section includes the information on record at [place] for the Encounter. Date/Time Encounter Type Encounter Description Reason Provider Source Nov 23, 2023 03:30 PM MTMS BY CELESTE PEARL 15 MIN TELEPHONE PRIMARY CARE ICD-10-CM E11.42 Type 2 diabetes mellitus with diabetic polyneuropathy KARI BRITO [facility] Encounter Template Text not used by [...] activities [facility] the [facility] [place] [facility] This section includes future appointments [...] 02, 2023 07:01 AM AMBULATORY - NONE [facility] Jan 18, 2024 04:00 PM AMBULATORY - NONE [facility] Feb 22, 2024 04:00 PM AMBULATORY - NONE [facility] Social History: Smoking Status (Most [...] 18, 2022 08:30 AM VA-TOBACCO FORMER USER [facility] Tobacco Use History This section [...] Jun 22, 2021 ADVANCE DIRECTIVE [facility] Mar 09, 2007 ADVANCE DIRECTIVE [facility] W[facility] Encounter Notes: All associated encounter notes This section contains the clinical notes associated to the Encounter. Date/Time Encounter Note(s) Provider Source Nov 23, 2023 10:35 AM PHARMACY NOTE: LOCAL TITLE: PHARMACOTHERAPY-CLINICAL PHARMACY NOTE STANDARD TITLE: PHARMACY NOTE DATE OF NOTE: NOV 23, 2023@10:35 ENTRY DATE: NOV 23, 2023@10:35:22 AUTHOR: KARI BRITO EXP COSIGNER: URGENCY: STATUS: COMPLETED BACKGROUND: BETOMIGUELINA CHRISTIAN [...] sandwich or grapes/cheese, beef stew Evening meal: senior care specialist -- sandwich or fruit/cheese Snacks: snickers, Allie kisses, ice cream Beverages: diet coke, water, [...] hyperglycemia symptoms SMBG Readings: AM 11/22 186/ /24 176/ /23 121/ 22 196/ 4/21 20 185/ 4/19 210/ 4/18 155/ 4/17 416 116/ 4/15 111/ 4/14 148/ 4/13 173/ 4/12 167/ [address]: [address] ------Previous Readings-------- Early f/u ave: [address]: [address]: [...] Time spent: 21 minutes RTC: - 01/17 pharmTwyla phone prefers to avoid [facility]-only has a cellphone /toby/ KARI BRITO PHARM D, BCPS Clinical Pharmacist Practitioner[facility] Signed: 11/24/2023 07:52 KARI BRITO [facility]
--- OUTSIDE RECORDS SUMMARY | 2024-02-19 14:47 | XMS_ITS | Continuity of Care Document ---
Author Name [facility] Organization [facility] Care Team Providers Care Tank Washer Name Role Phone [facility] Unavailable Unavailable Problems Combined list of problems from Department of Defense and Veterans Affairs facilities. It does not include entries that were removed or entered in error. Problem Status Onset Date Problem Type Date of Resolution Comments Source Exposure to potentially hazardous substance ([facility] [id number]) Active 10/05/19 24 Condition Oct 05, 2023 Entered By: VIJI VIVAS Comment: [facility] Documentation Initiative [facility] Depressive Disorder NOS * (ICD-9-CM 311./300.4) Active Condition [facility] Diabetes mellitus (SNOMED CT 65906630) Active Condition [facility] Diabetic neuropathy Active Condition [facility] Foot Pain (ICD-9-CM 719.47) Active Condition Aug 26 10 Entered By: MALINA WORLEY Comment: left 5th metatarsal fracture [facility] History of amputation of lesser toe Active Condition [facility] Hyperlipidemia (SNOMED CT 57237460) Active Condition [facility] Hyperuricemia Active Condition [facility] Osteopenia Active Condition [facility] Other Iatrogenic Hypotension Active Condition [facility] Personal History of Alcoholism (ICD-9-CM V11.3) Active Condition [facility] Tobacco user (SNOMED CT 636379300) Active Condition [facility] Diagnosis: ICD-10-CM E11.42 Type 2 diabetes mellitus with diabetic polyneuropathy Active Diagnosis [facility] Diana [facility] Diagnosis: ICD-10-CM E11.621 Type 2 diabetes mellitus with foot ulcer Active Diagnosis [facility] Diagnosis: ICD-10-CM Z77.29 Contact with and exposure to other hazardous substances Active Diagnosis [facility] Medications Combined list of outpatient medications from Department of Defense and Veterans Affairs facilities.Medications provided include 1) outpatient medications from the last 15 months, and 2) patient-reported medications. Medication Details Route Status Patient Instructions Prescription Expires Prescription Number Last Dispense Date Ordering Provider Order Date Order Qty Source ASCORBIC ACID 500MG TAB ASCORBIC ACID 500MG TAB Non-VA TAKE ONE TABLET BY MOUTH TWICE A DAY Aug 21, 2022 Non-VA Document ed by: CHRALEE FISH Document ed at: [facility] ORAL ACTIVE CHARLEE FISH 2022 [facility] ASPIRIN 81MG TAB,EC ASPIRIN 81MG TAB,EC Non-VA TAKE ONE TABLET BY MOUTH EVERY DAY Mar 13, 2007 Non-VA Document ed by: MARY CHOUDHARY Document ed at: [facility] ORAL ACTIVE JEFF CHOUDHARY A 2006 [facility] ATORVASTATI N CA 40MG TAB ATORVAST ATIN CA 40MG TAB Active TAKE ONE TABLET BY MOUTH EVERY DAY FOR CHOLESTE ROL Apr 11, 2023 90 Apr 11, 2024 [id number] December 17, 2023 CHARLEE FISH [facility] ORAL ACTIVE 04/11/2024 [id number] CHARLEE FISH 2022 90 [facility] ATORVASTATI N CA 40MG TAB ATORVAST ATIN CA 40MG TAB Disconti nued TAKE ONE TABLET BY MOUTH EVERY DAY FOR CHOLESTE ROL Jul 14, 2022 90 Jul 15, 2023 [id number] Mar 31, 2023 NAIDL,TO DD [facility] ORAL DISCONT INUED 07/15/2023 [id number] NAIDL,TOD D 2022 90 [facility] CHOLECALCIF QUINTIN TAB CHOLECAL CIFEROL TAB Non-VA TAKE 5000 UNITS BY MOUTH EVERY DAY Aug 21, 2022 Non-VA Document ed by: CHARLEE FISH Document ed at: [facility] ORAL ACTIVE CHARLEE FISH 2022 [facility] COENZYME Q10 CAP/TAB COENZYME Q10 CAP/TAB Non-VA TAKE 1 CAPSULE BY MOUTH EVERY DAY Aug 21, 2022 Non-VA Document ed by: CHARLEE FISH Document ed at: [facility] ORAL ACTIVE CHARLEE FISH 2022 [facility] CYANOCOBALA MIN 1000MCG TAB CYANOCOB ALAMIN 1000MCG TAB Non-VA TAKE ONE TABLET BY MOUTH EVERY DAY Mar 09, 2022 Non-VA Document ed by: MAUREEN BRITO DD Document ed at: [facility] ORAL ACTIVE DEAN BRITO 2021 [facility] DICLOFENAC NA 1% GEL,TOP DICLOFEN AC NA 1% GEL,TOP Active APPLY 4 GRAMS TOPICALL Y FOUR TIMES A DAY NEEDED FOR JOINT PAIN JOINT PAIN Mar 22, 2023 100 Mar 22, 2024 [id number] Mar 22, 2023 FISH CHARLEE Bowers [facility] TOPICA L ACTIVE 03/22/2024 [id number] ABE CHARLEE A 2022 100 [facility] FINASTERIDE 5MG TAB FINASTER RACHEL 5MG TAB Active TAKE ONE TABLET BY MOUTH EVERY DAY FOR PROSTATE FOR PROSTATE Apr 11, 2023 90 Apr 11, 2024 [id number] A Jan 08, 2024 CHARLEE FISH Robinson [facility] ORAL ACTIVE 04/11/2024 [id number] CHARLEE FISH 2022 90 [facility] FINASTERIDE 5MG TAB FINASTER RACHEL 5MG TAB Disconti nued TAKE ONE TABLET BY MOUTH EVERY DAY FOR PROSTATE FOR PROSTATE Jul 12, 2022 90 Jul 13, 2023 [id number] Mar 31, 2023 FISHCHARLEE Bowers [facility] ORAL DISCONT INUED 07/13/2023 [id number] ABE CHARLEE A 2021 90 [facility] FISH OIL 1000MG (500MG DHA/EPA) CAP,ORAL FISH OIL 1000MG (500MG DHA/EPA) CAP,ORAL Non-VA TAKE 1 CAPSULE BY MOUTH TWICE A DAY Mar 13, 2007 Non-VA Document ed by: MARY CHOUDHARY A Document ed at: [facility] ORAL ACTIVE JEFF CHOUDHARY 2006 [facility] INSULIN,GLA RGINE-YFGN 100UNIT/ML INJ PEN,3ML INSULIN, GLARGINE -YFGN 100UNIT/ ML INJ PEN,3ML Active INJECT 24 UNITS UNDER THE SKIN EVERY EVENING FOR DIABETES FOR DIABETES Aug 29, 2023 5 Aug 29, 2024 [id number] Jan 07, 2024 NAIDL,TO DD [facility] SUBCUT ANEOUS ACTIVE 08/29/2024 [id number] NAIDL,TOD D 2023 5 [facility] INSULIN,GLA RGINE-YFGN 100UNIT/ML INJ PEN,3ML INSULIN, GLARGINE -YFGN 100UNIT/ ML INJ PEN,3ML Disconti nued INJECT 22 UNITS UNDER THE SKIN AT BEDTIME FOR DIABETES FOR DIABETES Jan 06, 2023 5 Jan 07, 2024 [id number] Jul 25, 2023 NAIDL,TO DD [facility] SUBCUT ANEOUS DISCONT INUED (EDIT) 01/07/2024 [id number] NAIDL,TOD D 2022 5 [facility] INSULIN,GLA RGINE-YFGN 100UNIT/ML INJ PEN,3ML INSULIN, GLARGINE -YFGN 100UNIT/ ML INJ PEN,3ML Disconti nued INJECT 20 UNITS UNDER THE SKIN AT BEDTIME FOR DIABETES FOR DIABETES December 07, 2022 5 December 08, 2023 [id number] Jan 06, 2023 NAIDL,TO DD [facility] SUBCUT ANEOUS DISCONT INUED (EDIT) 12/08/2023 [id number] NAIDL,TOD D 2022 5 [facility] LIDOCAINE 4% CREAM,TOP LIDOCAIN E 4% CREAM,TO P Active APPLY MODERATE AMOUNT TOPICALL Y THREE TIMES A DAY FOR PAIN PAIN Mar 22, 2023 30 Mar 22, 2024 [id number] Mar 22, 2023 CHARLEE FISH [facility] TOPICA L ACTIVE 03/22/2024 [id number] CHARLEE FISH 2022 30 [facility] MAGNESIUM OXIDE 400MG TAB MAGNESIU M OXIDE 400MG TAB Non-VA TAKE ONE TABLET BY MOUTH EVERY DAY Aug 21, 2022 Non-VA Document ed by: CHARLEE FISH Document ed at: [facility] ORAL ACTIVE CHARLEE FISH 2022 [place] [facility] MENTHOL/MET HYL SALICYLATE (10-15%) LOW CONC. CREAM,TOP MENTHOL/ METHYL SALICYLA TE (10-15%) LOW CONC. CREAM,TO P Active APPLY THIN LAYER TOPICALL Y THREE TIMES A DAY FOR MUSCLE PAIN MUSLCE PAIN Mar 22, 2023 90 Mar 22, 2024 [id number] Mar 22, 2023 CHARLEE FISH [facility] TOPICA L ACTIVE 03/22/2024 [id number] [facility] [facility] [address] [facility] METFORMIN HCL 1000MG TAB METFORMI N HCL 1000MG TAB Active: Susp TAKE ONE TABLET BY MOUTH TWICE A DAY FOR DIABETES Apr 11, 2023 180 Apr 11, 2024 [id number] Feb 19, 2024 CHARLEE FISH [facility] ORAL SUSPEND ED 04/11/2024 [id number] CHARLEE FISH 2022 180 [facility] METFORMIN HCL 1000MG TAB METFORMI N HCL 1000MG TAB Disconti nued TAKE ONE TABLET BY MOUTH TWICE A DAY FOR DIABETES Jul 14, 2022 180 Jul 15, 2023 [id number] Apr 06, 2023 NAIDL,TO DD [facility] ORAL DISCONT INUED 07/15/2023 [id number] NAIDL,TOD D 2022 180 [facility] OMEPRAZOLE 20MG CAP,EC OMEPRAZO LE 20MG CAP,EC Active TAKE ONE CAPSULE BY MOUTH EVERY DAY ON AN EMPTY STOMACH, AT LEAST 30 MINUTES PRIOR TO A MEAL FOR GERD GERD Mar 22, 2023 90 Mar 22, 2024 [id number] December 22, 2023 CHARLEE FISH [facility] ORAL ACTIVE 03/22/2024 [id number] CHARLEE FISH [address] [facility] SEMAGLUTIDE 1MG/0.75ML INJ,SOLN,PE N,3ML SEMAGLUT RACHEL 1MG/0.75 ML INJ,SOLN ,PEN,3ML Active INJECT 1MG UNDER THE SKIN EVERY WEEK FOR DIABETES FOR DIABETES Nov 07, 2023 1 Nov 07, 2024 [id number] Feb 23, 2024 NAIDL,TO DD [facility] SUBCUT ANEOUS ACTIVE 11/07/2024 [id number] NAIDL,TOD D 2023 1 [facility] SEMAGLUTIDE 1MG/0.75ML INJ,SOLN,PE N,3ML SEMAGLUT RACHEL 1MG/0.75 ML INJ,SOLN ,PEN,3ML Disconti nued INJECT 1MG UNDER THE SKIN EVERY WEEK FOR DIABETES FOR DIABETES Nov 07, 2022 1 Nov 08, 2023 [id number] Nov 06, 2023 NAIDL,TO DD [facility] SUBCUT ANEOUS DISCONT INUED 11/08/2023 [id number] 4 NAIDL,TOD D 2022 1 [facility] TAMSULOSIN HCL 0.4MG CAP TAMSULOS IN HCL 0.4MG CAP Active: Susp TAKE ONE CAPSULE BY MOUTH EVERY EVENING PROSTATE Apr 13, 2023 30 Apr 13, 2024 [id number] Feb 19, 2024 CHARLEE FISH [facility] ORAL SUSPEND ED 04/13/2024 [id number] CHARLEE FIHS 2022 30 [facility] TAMSULOSIN HCL 0.4MG CAP TAMSULOS IN HCL 0.4MG CAP Disconti nued TAKE ONE CAPSULE BY MOUTH EVERY EVENING PROSTATE Apr 11, 2023 90 Apr 11, 2024 [id number] Apr 21, 2023 CHARLEE FISH [facility] ORAL DISCONT INUED 04/11/2024 [id number] CHARLEE FIHS 2022 90 [facility] TAMSULOSIN HCL 0.4MG CAP TAMSULOS IN HCL 0.4MG CAP Disconti nued TAKE ONE CAPSULE BY MOUTH EVERY EVENING PROSTATE Aug 03, 2022 90 Aug 04, 2023 [id number] Jan 21, 2023 CHARLEE FISH [facility] ORAL DISCONT INUED 08/04/2023 [id number] CHARLEE FISH 2022 90 [facility] TURMERIC CAP/TAB TURMERIC CAP/TAB Non-VA TAKE 500 MG BY MOUTH TWICE A DAY Apr 22, 2019 Non-VA Document ed by: MATTY WOO Document ed at: [facility] ORAL ACTIVE MATTY POWERS 2018 [facility] Allergies, Adverse Reactions, Alerts Combined list of allergies from Department of Defense and Veterans Affairs facilities. It does not include entries that were removed or entered in error. Substance Category Reaction Severity Reaction type Status Date Reported Comments Source VANCOMYCIN Propensity to adverse reactions to drug (finding) [place] active 8 [facility] Immunizations Combined list of available immunizations from the Department of Defense and Veterans Affairs facilities. Immunization Series Date Given Administered By Site Reaction Lot Number CVX Code Drug Smoke Inspector Status Comments Source ZOSTER RECOMBINANT 2 2019 187 complet ed [facility] INFLUENZA, INJECTABLE, QUADRIVALENT, PRESERVATIVE FREE 2019 150 complet ed [facility] ZOSTER RECOMBINANT 1 2019 187 complet ed [facility] INFLUENZA, HIGH-DOSE, QUADRIVALENT 2019 197 complet ed [facility] INFLUENZA, SEASONAL, INJECTABLE, PRESERVATIVE FREE 2017 140 complet ed [facility] INFLUENZA, INJECTABLE, QUADRIVALENT, PRESERVATIVE FREE 2017 150 complet ed [facility] INFLUENZA, INJECTABLE, QUADRIVALENT, PRESERVATIVE FREE 2015 150 complet ed [facility] TDAP 2015 115 complet ed [place] PNEUMOCOCCAL CONJUGATE PCV 13 2015 133 complet ed [facility] TD (ADULT), 5 LF TETANUS TOXOID, PRESERVATIVE FREE, ADSORBED 2015 113 complet ed [facility] INFLUENZA, INJECTABLE, QUADRIVALENT, PRESERVATIVE FREE 2013 150 complet ed [facility] PNEUMOCOCCAL POLYSACCHARID E PPV23 2010 33 complet ed [facility] INFLUENZA, UNSPECIFIED FORMULATION 2006 88 complet ed [facility] PNEUMOCOCCAL, UNSPECIFIED FORMULATION 2006 109 complet ed [facility] TD(ADULT) UNSPECIFIED FORMULATION 2006 NONE 139 complet ed [facility] TETANUS TOXOID, UNSPECIFIED FORMULATION 2006 NONE 112 complet ed [facility] Results Combined list of recent chemistry, hematology and other laboratory results from Department of Defense and Veterans Affairs, ranging from 15 months to all on record, depending upon the facility. Order Name Results Value Reference Range Date Interpretation Specimen Comments Source BASIC METABOLIC PANEL+MG CREATININE [MASS/VOLUM E] IN SERUM OR PLASMA 1.2 mg/dL 0.7 - 1.2 03/22 Specimen Type: PLASMA No comment entered. Ordering Provider: ME LEEROY FISH Report Released Date/Time: Aug 21, 2022 03:48 PM Reporting Lab: [facility] [address] Performing Lab: [facility] [address] [facility] BASIC METABOLIC PANEL+MG UREA NITROGEN [MASS/VOLUM E] IN SERUM OR PLASMA 15 mg/dL 8 - 26 03/22 Specimen Type: PLASMA No comment entered. Ordering Provider: ME LEEROY FISH Report Released Date/Time: Aug 21, 2022 03:48 PM Reporting Lab: [facility] [address] Performing Lab: [facility] [address] [facility] BASIC METABOLIC PANEL+MG GLUCOSE [MASS/VOLUM E] IN SERUM OR PLASMA 145 mg/dL 70 - 100 03/22 H Specimen Type: PLASMA No comment entered. Ordering Provider: ME LEEROY FISH Report Released Date/Time: Aug 21, 2022 03:48 PM Reporting Lab: [facility] [address] Performing Lab: [facility] [address] [facility] BASIC METABOLIC PANEL+MG SODIUM [MOLES/VOLU ME] IN SERUM OR PLASMA 138 mmol/L 136 - 145 03/22 Specimen Type: PLASMA No comment entered. Ordering Provider: ME LEEROY FISH Report Released Date/Time: Aug 21, 2022 03:48 PM Reporting Lab: [facility] [address] Performing Lab: [facility] [address] [place] [facility] BASIC METABOLIC PANEL+MG POTASSIUM [MOLES/VOLU ME] IN SERUM OR PLASMA 4.5 mmol/L 3.5 - 5.1 03/22 Specimen Type: PLASMA No comment entered. Ordering Provider: ME LEEROY FISH Report Released Date/Time: Aug 21, 2022 03:48 PM Reporting Lab: [facility] [address] Performing Lab: [facility] [address] [place] [facility] BASIC METABOLIC PANEL+MG CHLORIDE [MOLES/VOLU ME] IN SERUM OR PLASMA 101 mmol/L 98 - 107 03/22 Specimen Type: PLASMA No comment entered. Ordering Provider: ME LEEROY FISH Report Released Date/Time: Aug 21, 2022 03:48 PM Reporting Lab: [facility] [address] Performing Lab: [facility] [address] [place] [facility] BASIC METABOLIC PANEL+MG CARBON DIOXIDE, TOTAL [MOLES/VOLU ME] IN SERUM OR PLASMA 27 mmol/L 22 - 29 03/22 Specimen Type: PLASMA No comment entered. Ordering Provider: ME LEEROY FISH Report Released Date/Time: Aug 21, 2022 03:48 PM Reporting Lab: [facility] [address] Performing Lab: [facility] [address] [place] [facility] BASIC METABOLIC PANEL+MG CALCIUM [MASS/VOLUM E] IN SERUM OR PLASMA 10.0 mg/dL 8.4 - 10.2 03/22 Specimen Type: PLASMA No comment entered. Ordering Provider: ME LEEROY FISH Report Released Date/Time: Aug 21, 2022 03:48 PM Reporting Lab: [facility] [address] Performing Lab: [facility] [address] [place] [facility] BASIC METABOLIC PANEL+MG MAGNESIUM [MASS/VOLUM E] IN SERUM OR PLASMA 1.9 mg/dL 1.6 - 2.6 03/22 Specimen Type: PLASMA No comment entered. Ordering Provider: ME LEEROY FISH Report Released Date/Time: Aug 21, 2022 03:48 PM Reporting Lab: [facility] [address] Performing Lab: [facility] [address] [place] [facility] BASIC METABOLIC PANEL+MG ANION GAP IN SERUM OR PLASMA 10 mmol/L 5 - 15 03/22 Specimen Type: PLASMA No comment entered. Ordering Provider: ME LEEROY FISH Report Released Date/Time: Aug 21, 2022 03:48 PM Reporting Lab: [facility] [address] Performing Lab: [facility] [address] [place] [facility] BASIC METABOLIC PANEL+MG GLOMERULAR FILTRATION RATE/1.73 SQ M.PREDICTED [VOLUME RATE/AREA] IN SERUM, PLASMA OR BLOOD BY CREATININE- BASED FORMULA (CKD-EPI 2020) 63 60 03/22 Specimen Type: PLASMA No comment entered. Ordering Provider: ME LEEROY FISH Report Released Date/Time: Aug 21, 2022 03:48 PM Reporting Lab: [facility] [address] Performing Lab: [facility] [address] [place] [facility] HEMOGLOBI N A1C [...] 21, 2022 03:48 PM Reporting Lab: [facility] [address] Performing Lab: [facility] [address] [place] [facility] BASIC METABOLIC PANEL+MG CREATININE [MASS/VOLUM E] IN SERUM OR PLASMA 0.9 mg/dL 0.7 - 1.2 08/18 Specimen Type: PLASMA No comment entered. Ordering Provider: ME LEEROY FISH Report Released Date/Time: December 22, 2021 03:46 PM Reporting Lab: [facility] [address] Performing Lab: [facility] [address] [place] [facility] BASIC METABOLIC PANEL+MG UREA NITROGEN [MASS/VOLUM E] IN SERUM OR PLASMA 12 mg/dL 8 - 26 08/18 Specimen Type: PLASMA No comment entered. Ordering Provider: ME LEEROY FISH Report Released Date/Time: December 22, 2021 03:46 PM Reporting Lab: [facility] [address] Performing Lab: [facility] [address] [place] [facility] BASIC METABOLIC PANEL+MG GLUCOSE [MASS/VOLUM E] IN SERUM OR PLASMA 184 mg/dL 70 - 100 08/18 H Specimen Type: PLASMA No comment entered. Ordering Provider: ME LEEROY FISH Report Released Date/Time: December 22, 2021 03:46 PM Reporting Lab: [facility] [address] Performing Lab: [facility] [address] [place] [facility] BASIC METABOLIC PANEL+MG SODIUM [MOLES/VOLU ME] IN SERUM OR PLASMA 137 mmol/L 136 - 145 08/18 Specimen Type: PLASMA No comment entered. Ordering Provider: ME LEEROY FISH Report Released Date/Time: December 22, 2021 03:46 PM Reporting Lab: [facility] [address] Performing Lab: [facility] [address] [place] [facility] BASIC METABOLIC PANEL+MG POTASSIUM [MOLES/VOLU ME] IN SERUM OR PLASMA 3.9 mmol/L 3.5 - 5.1 08/18 Specimen Type: PLASMA No comment entered. Ordering Provider: ME LEEROY FISH Report Released Date/Time: December 22, 2021 03:46 PM Reporting Lab: [facility] [address] Performing Lab: [facility] [address] [place] [facility] BASIC METABOLIC PANEL+MG CHLORIDE [MOLES/VOLU ME] IN SERUM OR PLASMA 102 mmol/L 98 - 107 08/18 Specimen Type: PLASMA No comment entered. Ordering Provider: ME LEEROY FISH Report Released Date/Time: December 22, 2021 03:46 PM Reporting Lab: [facility] [address] Performing Lab: [facility] [address] [place] [facility] BASIC METABOLIC PANEL+MG CARBON DIOXIDE, TOTAL [MOLES/VOLU ME] IN SERUM OR PLASMA 26 mmol/L 22 - 29 08/18 Specimen Type: PLASMA No comment entered. Ordering Provider: ME LEEROY FISH Report Released Date/Time: December 22, 2021 03:46 PM Reporting Lab: [facility] [address] Performing Lab: [facility] [address] [place] [facility] BASIC METABOLIC PANEL+MG CALCIUM [MASS/VOLUM E] IN SERUM OR PLASMA 9.4 mg/dL 8.4 - 10.2 08/18 Specimen Type: PLASMA No comment entered. Ordering Provider: ME LEEROY FISH Report Released Date/Time: December 22, 2021 03:46 PM Reporting Lab: [facility] [address] Performing Lab: [facility] [address] [place] [facility] BASIC METABOLIC PANEL+MG MAGNESIUM [MASS/VOLUM E] IN SERUM OR PLASMA 1.6 mg/dL 1.6 - 2.6 08/18 Specimen Type: PLASMA No comment entered. Ordering Provider: ME LEEROY FISH Report Released Date/Time: December 22, 2021 03:46 PM Reporting Lab: [facility] [address] Performing Lab: [facility] [address] [place] [facility] BASIC METABOLIC PANEL+MG ANION GAP IN SERUM OR PLASMA 9 mmol/L 5 - 15 08/18 Specimen Type: PLASMA No comment entered. Ordering Provider: ME LEEROY FISH Report Released Date/Time: December 22, 2021 03:46 PM Reporting Lab: [facility] [address] Performing Lab: [facility] [address] [place] [facility] BASIC METABOLIC PANEL+MG GLOMERULAR FILTRATION RATE/1.73 SQ M.PREDICTED [VOLUME RATE/AREA] IN SERUM, PLASMA OR BLOOD BY CREATININE- BASED FORMULA (CKD-EPI) 89 60 08/18 Specimen Type: PLASMA No comment entered. Ordering Provider: ME LEEROY FISH Report Released Date/Time: December 22, 2021 03:46 PM Reporting Lab: [facility] [address] Performing Lab: [facility] [address] [place] [facility] HEMOGLOBI N A1C [...] December 22, 2021 03:46 PM Reporting Lab: [facility] [address] Performing Lab: [facility] [address] [facility] Vital Signs Combined list of inpatient [...] DC Date Status Disposition Source [place] [facility] Outpatient Encounter [id number] 08/21 [facility] [place] [facility] HC PRO PHONE CALL 11-20 MIN [id number] Diagnos is: ICD-10- CM E11.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
KARI BRITO 08/29 [place] [facility] [place] [facility] HC PRO PHONE CALL 11-20 MIN [id number] Diagnos is: ICD-10- CM E11.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
NAIDL,KARI 09/29 [place] [facility] [place] [facility] HC PRO PHONE CALL 21-30 MIN [id number] Diagnos is: ICD-10- CM E11.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
NAIDL,KARI 11/07 [place] [facility] [place] [facility] HC PRO PHONE CALL 11-20 MIN [id number] Diagnos is: ICD-10- CM E11.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
NAIDL,KARI 12/07 [place] [facility] Outpatient Encounter [id number] Diagnos is: ICD-10- CM Z77.29 Contact with and exposur e to other [facility]<br/ > JEANINE,MATH ILDE J 12/27 [facility] Outpatient Encounter [id number] Diagnos is: ICD-10- CM Z77.29 Contact with and exposur e to other [facility]<br/ > JEANINE,MATH ILDE J 12/27 [facility] IS [facility] HC PRO PHONE CALL 11-20 MIN [id number] Diagnos is: ICD-10- CM E11.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
NAIDL,KARI 01/06 [place] [facility] [place] [facility] Outpatient Encounter [id number] 03/10 [place] [facility] [place] [facility] PRO PHONE CALL 11-20 MIN [id number] [id number] Diagnos is: ICD-10- CM E11.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
NAIDL,KARI 03/14 [place] [facility] [place] [facility] OFFICE O/P EST LOW 20-29 MIN [id number] Diagnos is: ICD-10- CM E11.621 Type 2 diabete s mellitu s with foot ulcer<b r/> Rhiannon FISH A 03/22 [place] [facility] [place] [facility] PRO PHONE CALL 21-30 MIN [phone] Diagnos is: ICD-10- CM E11.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
NAIDL,KARI 04/18 [place] [facility] [place] [facility] HC PRO PHONE CALL 21-30 MIN [phone] Diagnos is: ICD-10- CM E11.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
NAIDL,KARI 07/11 [place] [facility] [place] [facility] MTMS BY PHARM ADDL 15 MIN [id number] [phone] Diagnos is: ICD-10- CM E11.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
NAIDL,KARI 08/29 [place] [facility] [place] [facility] MTMS BY PHARM EST 15 MIN [id number] [phone] Diagnos is: ICD-10- CM E11.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
AWSOLEDAD BUCKLEY L 10/10 [place] [facility] [place] [facility] Outpatient Encounter [phone] 10/16 [place] [facility] [place] [facility] MTMS BY PHARM EST 15 MIN [phone] Diagnos is: ICD-10- CM E11.621 Type 2 diabete s mellitu s with foot ulcer<b r/> NAIDL,KARI 11/[facility] MTMS BY PHARM ADDL 15 MIN [id number] [phone] Diagnos is: ICD-10- CM E11.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
NAIDL,KARI 11/22 [facility] MTMS BY PHARM ADDL 15 MIN [phone] Diagnos is: ICD-10- CM E11.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
NAIDL,KARI 01/17 [facility] Outpatient Encounter [id number] Diagnos is: ICD-10- CM E11.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
MILAGRO TONEY 01/18 [facility] QNHP OL DIG ASSMT&MGMT 5-10 [phone] Diagnos is: ICD-10- CM E11.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
MOE CHOWDHURY 01/18 [facility] Social History Combined list of available smoking, tobacco, and other social history from Department of Defense and Veterans Affairs facilities. Social History Type Response Date Comment Sourc e Tobacco smoking status SCIS VA-TOBACCO FORMER USER 08/18/2022 [facility] History of tobacco use NE-TOBACCO QUIT 1 5 YRS OR MORE 08/18/2022 [facility] History of tobacco use NE-TOBACCO QUIT 1 5 YRS OR MORE 05/03/2021 [facility] History of tobacco use VA-TOBACCO FORMER USER 04/21/2020 [facility] History of tobacco use FORMER TOBACCO US E >1Y <7Y 04/03/2018 [facility] History of tobacco use CURRENT TOBACCO USER 03/09/2007 [facility] Plan of Care List of future care activities from Department of Veterans Affairs facilities. Additional future care activities may be listed in the Assessment and Plan section. Date/Time Care Activity Care Activity Detail Facili ty 02/22/2024 AMBULATORY - NONE AMBULATORY - NONE [facility] Advance Directives List of completed, amended, or rescinded Advance Directives on record at Department of [facility] Affairs facilities. An actual copy of the Directive is not included. Date Advance Directive Provider Source 06/22/2021 ADVANCE DIRECTIVE DISCUSSION ALLYSON GRAF [facility] 06/22/2021 ADVANCE DIRECTIVE ALLYSON GRAF [facility] 03/09/2007 ADVANCE DIRECTIVE SOLEDAD WOLFF [facility]
--- OUTSIDE RECORDS SUMMARY | 2024-02-19 14:48 | XMS_ITS | Data Portability ---
Author Organization [place] - [facility] Address [address] [place] [address] Care Team Providers Care Cable Engineer Outside Plant Name Role Phone POST, SUE Primary Care Provider [phone] Assessment Encounter Date Assessment Date Assessment LastModified by Organization Details LastModified Time 11/04/2022 11/04/2022 Here for UDS procedure. Not available 10/19/2022 15:44:44 11/11/2022 11/11/2022 77M with urinary retention. 1) Urinary retention - UDS shows low detrusor pressure and low flow, also no relaxation of sphincter with permission to void. 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 - recommend TOV @ next catheter change - if unable to void will need Gordon replaced; - no evidence obstruction on cysto - Continue tamsulosin 0.4 mg daily - Continue finasteride 5 mg daily 12 min total time [email or web address] Not available 11/11/2022 17:49:48 Plan of Treatment Reminders Order Date Submit Date Provider Last Modified By Organization Details Last Modified Time Details Appointments None recorded. Lab culture, urine - Pt has a Gordon in place, so removed for UDS. Denies any symptoms of UTI, but UC sent and pt treated due to hx of Hospitaliza tion for UTI. 2022 023 [facility] [place] [facility], [address], [address], [place], [address], 3 10:05:08 urinalysis, dipstick 2022 023 [facility], [address], [place], [address], 12:03:37 Referral None recorded. Procedures None recorded. Surgeries None recorded. Imaging None recorded. Medication Orders None recorded. Patient TargetsNo targets recorded. Patient Instructions Encounter Date Encounter Id Patient Instructions Last Modified By Organization Details Last Modified Time 09/23/2022 [id number] Patient to call clinic with questions or concerns. Advised patient to increase water intake and to keep 4 week appointment for next catheter change. [email or web address] Not available 09/23/2022 13:22:30 11/04/2022 [id number] Pt has F/U appt with Dr Barrientos in [place] on 11/11/2022 @ 3:10pm to review UDS. Not available 10/19/2022 15:50:04 Reason for Referral None Reported. Results Created Date Observation Date Name Description Value Unit Range Abnormal Flag LastModifiedBy Organization Detail LastModifiedTime 11/05/1911/04/2022 URINE CULTU RE final report MICROB IOLOGY RESULT S abnormal Not Available [facility] [place] [address], [place], [address], 11/07/2022 10:05:08 11/05/19 23 11/04/2022 urina lysis , dipst ick Color-Status Straw Not Available [facility] [address], [place], [address], 11/04/2022 12:02:10 11/05/19 23 11/04/2022 urina lysis , dipst ick Clarity-Stat us Slight ly Cloudy Not Available [facility] [address], [place], [address], 11/04/2022 12:02:10 11/05/19 23 11/04/2022 urina lysis , dipst ick Glucose-Stat us 500 Not Available [facility] [address], [place], [address], 11/04/2022 12:02:10 11/05/19 23 11/04/2022 urina lysis , dipst ick Bilirubin-St atus Negati ve Not Available [facility] [address], [place], [address], 11/04/2022 12:02:10 11/05/19 23 11/04/2022 urina lysis , dipst ick Ketones-Stat us Negati ve Not Available [facility] [address], [place], [address], 11/04/2022 12:02:10 11/05/19 23 11/04/2022 urina lysis , dipst ick Sp Buffalo-Stat us 1.015 Not Available [facility] [address], [place], [address], 11/04/2022 12:02:10 11/05/19 23 11/04/2022 urina lysis , dipst ick pH-Status 6.5 Not Available [facility] [address], [place], [address], 11/04/2022 12:02:10 11/05/19 23 11/04/2022 urina lysis , dipst ick Protein-Stat us 5.0 Not Available [facility] [address], [place], [address], 11/04/2022 12:02:10 11/05/19 23 11/04/2022 urina lysis , dipst ick Urobilinogen -Status 0.2 Not Available [facility] [address], [place], [address], 11/04/2022 12:02:10 11/05/19 23 11/04/2022 urina lysis , dipst ick Nitrates-Sta tus positi ve Not Available [facility] [address], [place], [address], 11/04/2022 12:02:10 11/05/19 23 11/04/2022 urina lysis , dipst ick Blood-Status Large Not Available [facility] [address], [place], [address], 11/04/2022 12:02:10 11/05/19 23 11/04/2022 urina lysis , dipst ick Leuko-Status Large Not Available [facility] [address], [place], [address], 11/04/2022 12:02:10 11/05/19 23 11/04/2022 urina lysis , dipst ick Specimen Type Cathet erized Not Available [facility] [address], [place], [address], 11/04/2022 12:02:10 11/05/19 23 11/04/2022 urina lysis , dipst ick Performed by Jake [email or web address] Not Available [facility] [address], [place], [address], 11/04/2022 12:02:10 Result Notes None recorded. Problems Name Status Onset Date Resolution Date Notes Provider Name and Address Organization Details Recorded Time Retention of urine Active 3 [facility] 10/21/2022 13:15:43 Problem Notes None recorded. Procedures Surgical History Date Name Laterality Status Provider Name and Address Organization Details Recorded Time 3 Fill and Pull/Voiding Trial/TOV completed Jenna song [facility] 12/09/2022 11:59:45 3 Urodynamic Studies completed Deyanira song [facility] 11/04/2022 12:19:38 3 Gordon Catheter Insertion completed Deyanira song [facility] 11/04/2022 12:21:21 3 Urethral Catheter Change completed Jenna Harris null, [facility] 10/21/2022 13:18:32 3 Urethral Catheter Change completed Nenita Flores null, [facility] 09/23/2022 13:21:12 3 Gordon Catheter Insertion completed Roula Beltran null, [facility] 08/03/2022 11:16:51 3 Fill and Pull/Voiding Trial/TOV completed Roula Beltran null, [facility] 08/03/2022 11:16:41 2 Cystoscopy- male completed Kristopher Barrientos MD, PHD [address] [place] [address], [address], [facility] 06/30/2022 09:37:30 2 Urethral Catheter Change completed Carlos Mix null, [facility] 06/30/2022 09:49:15 2 Gordon Catheter Insertion completed Еленаarminda Josue [facility] 06/16/2022 15:03:22 2 Fill and Pull/Voiding Trial/TOV completed Roula Tony PA-C [address] [place] [address], [address], [facility] 06/16/2022 18:06:50 Cataract Surgery completed Ephraimarminda Josue [facility] 06/16/2022 12:30:25 Orthopedic Surgery completed Ephraimarminda Josue [facility] 06/16/2022 12:30:33 Imaging Results None recorded. Procedure [...] t Available Vitals Date Recorded Body height Provider Name an d Address Organization Details Last Updated DateTime 09/23/2022 180.34 cm Nenita Sandra [facility] 09/23/2022 13:17:39 Date Recorded Body height Body mass index (BMI) Body weight Provider Name and Address Organization Details Last Updated DateTime 11/11/2022 180.34 cm 30 kg/m2 61751.36 g Amanda Molina [facility] 11/11/2022 16:25:51 Social History Question Answer Notes LastModified by Organizat ion Details LastModified Time Tobacco Smoking Status [facility]/16/2022 12:29:38 What Is Your Level Of Alcohol Consumption? None Information not available 06/16/2022 What Is Your Level Of Caffeine Consumption? Moderate Information not available 06/16/2022 When Did You Quit Smoking? 6-10yearssince lastcigarette Information not available 06/16/2022 What Was The Date Of Your Most Recent Tobacco Screening? 11/11/2022 [email or web address] Information not available 11/11/2022 Sex: Unknown Functional Status None recorded. Mental Status None recorded. Family History Relationship Description Onset Age of this Age Resolved Age Notes Father Family history of malignant neoplasm Father Family history of ca rdiac disorder Medical History Condition Response Diabetes Y Sexually Transmitted Infection N Other N Bleeding Disorder N High Blood Pressure N Kidney Stones N High Cholesterol N GERD/Acid Reflux N Heart Disease Y Cancer N Lung Disease N Depression N Past Encounters Encounter ID Performer Location Encounter Start Date Encounter Closed Date Diagnosis/Indication Diagnosis SNOMED-CT Code [id number] Roula Chavo, PA-C [facility] [address] [place] [address] 06/16/2022 11:30:09 06/20/2022 08:36:10 Retention of urine [id number] Benign pro static hyperplasia with outflow obstruction [id number] Kristopher bains MD, PHD [facility] [address] [place] [address] 06/30/2022 08:46:23 07/04/2022 11:29:58 Retention of urine 710304401 Benign pro static hyperplasia with outflow obstruction [id number] Roula Beltran [facility] [address] [place] [address] 08/03/2022 10:27:16 08/05/2022 11:54:14 Retention of urine 843848040 [id number] Nenitaaranza Flores [facility] [address] [place] [address] 09/23/2022 10:30:04 09/26/2022 14:37:37 [id number] Kristopher bains MD, PHD [facility] [address] [place] [address] 11/04/2022 10:41:00 11/10/2022 13:37:32 Benign prostatic hyperplasia with outflow obstruction 822173134 Retention of urine 85380 4002 Microscopic hematuria 19 3964889 [id number] Jenna Harris [facility] [address] [place] [address] 10/21/2022 11:27:55 10/24/2022 11:49:09 Retention of urine [id number] Kristopher bains MD, PHD [facility] [address] [place] [address] 11/11/2022 16:25:28 11/17/2022 17:02:38 Retention of urine 827641638 Benign pro static hyperplasia with outflow obstruction [id number] Jenna Harris [facility] [address] [place] [address] 12/09/2022 10:56:01 12/12/2022 15:10:14 Retention of urine 946067611 Health Concerns Section Related Observation LastModified by Organization Detai ls LastModified Time None Recorded Concern Status LastModified by Organization Details LastModified Time None Recorded Advance Directives Directive None Recorded Payers Encounter Date Sequence Insurance Name Policy Number Policy Molina Covered Member ID Molina Member ID Guarantor Name 09/23/2022 1 [place] [employer] Tom B Renaux [id number] Tom B Renaux 09/23/2022 2 [place] [id number] Tom B Renaux [id number] Tom B Renaux 10/21/2022 1 [place] [employer] Tom B Renaux [id number] Tom B Renaux 10/21/2022 2 [place] [id number] Tom B Renaux [id number] Tom B Renaux 11/04/2022 1 [place] [employer] Tom B Renaux [id number] Tom B Renaux 11/04/2022 2 [place] [id number] Tom B Renaux [id number] Tom B Renaux 11/11/2022 1 [place] [employer] Tom B Renaux [id number] Tom B Renaux 11/11/2022 2 [place] [id number] Tmo B Renaux [id number] Tom B Renaux 12/09/2022 1 [place] [employer] Tom B Renaux [id number] Tom B Renaux 12/09/2022 2 [place] [id number] Tom B Renaux [id number] Tom B Renaux Notes Date Note Type Note Provider Name and Address Organization Details Recorded Time 09/23/2022 text/html HPI Notes: 77 yo male presents for catheter change. Pt denies signs/symptoms of a UTI. His is present at today's appointment. She is requesting a TOV today. Advised that patients plan of care states a catheter change and to have UDS done in October. Advised that patient needs to return to clinic in 4 weeks for next catheter change. OLMAN Kennedy - [facility] 09/23/2022 13:22:32 10/21/2022 text/html HPI Notes: Pt he re for catheter change Jenna Harris OLMAN song [facility] 10/21/2022 13:21:54 11/11/2022 text/html HPI Notes: 77M w ith urinary retention. Hospitalization at [facility] from 04/30-05/30 for MSSA bacteremia with C-spine [...] their care. Kristopher Barrientos MD, PHD [address], [place], [address], [facility] 11/11/2022 17:49:57 12/09/2022 text/html HPI Notes: Pt of Dr PALMER, here for TOV recommended at 11/11/22 visit Jenna song [facility] 12/09/2022 12:43:22
--- OUTSIDE RECORDS SUMMARY | 2024-02-19 14:48 | XMS_ITS | Encounter Summary ---
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 [place] [facility] [place] [facility] Address [address] [place] [address] Care Team Providers Care Forest Nursery Supervisor Name Role Phone CHARLEE FISH Primary Care [...] MEDIC ARE SUPPL EMENT Jul 31, 2018 [id number] [phone] RENBRITTNEY,KANE ALEX PATIENT [place] SU[place]MEN [place] MEDIC ARE SUPPL EMENT Jul 31, 2018 [id number] [phone] RENAUX,JU ALEX PATIENT [place]) MED[place]ARE ADVANTAGE MCR (WNR) Jul 31, 2017 [id number] [phone] RENAUX,JU ALEX PATIENT [place] SUPPLEMEN SCOT MEDIC ARE SUPPL EMENT Jul 31, 2018 [id number] RENAUX,JU A[place] SU[place]LEMEN [place] MEDIC ARE SUPPL EMENT Jul 31, 2018 [id number] [phone] RENAUX,JU ALEX PATIENT MEDICARE (WNR) [place] ([place]) PART A May 31, 2011 PART A [id number] [phone] KANE PÉREZ PATIENT MEDICARE (WNR) MEDICARE [place]) PART B May 31, 2011 PART B [id number] [phone] KANE PÉREZ PATIENT Selected Encounter This section includes the information on record at [place] for the Encounter. Date/Time Encounter Type Encounter Description Reason Provider Source Jan 18, 2024 04:00 PM MTMS BY CELESTE PEARL 15 MIN TELEPHONE PRIMARY CARE ICD-10-CM E11.42 Type 2 diabetes mellitus with diabetic polyneuropathy KARI BRITO [facility] Encounter Template Text not used by [place] Assessments - Encounter Diagnoses This section includes the primary and secondary diagnoses documented for the Encounter. Date/Time Primary/Secondary Diagnosis Diagnosis Name Provider Source Jan 18, 2024 04:00 PM PRIMARY Type 2 diabetes mellitus with diabetic polyneuropathy KARI BRITO [facility] Plan of Treatment: Future Appointments (+ 6 months) and Future Tests (+/- 45 days) The Plan of Treatment section includes future care activities for the patient from all [place] treatmentfacilities. This section includes future appointments and future orders which are active, pending or scheduled. Future Appointments This section includes appointments that were scheduled to occur 6 months from the date of the Encounter, up to a maximum of 20 appointments. The data comes from all [place] treatment facilities. Appointment Date/Time Appointment Type Appointme nt Facility Name Feb 22, 2024 04:00 PM AMBULATORY - NONE [facility] Social History: Smoking Status (Most current) and Tobacco Use (All prior to encounter date) This section includes the most current, and the historical, smoking and tobacco- related health factors from the [place] facility where the Encounter took place. Current Smoking Status This section includes the most current smoking, or tobacco-related health factor, from the [place] facility where the Encounter took place. Date/Time Current Smoking Status Comment Diego peng Aug 18, 2022 08:30 AM [place]-TOBACCO FORMER USER [facility] Tobacco Use History This section includes a history of the smoking, or tobacco-related health factors, that were collected on or before the date of the Encounter. The data comes from the [place] facility where the Encounter took place. Date/Time Smoking Status/Tobacco Use Comment Darline soriano Aug 18, 2022 08:30 AM VA-TOBACCO QUIT 15 YRS OR MORE [facility] May 03, 2021 08:00 AM VA-TOBACCO FORMER USER [facility] May 03, 2021 08:00 AM VA-TOBACCO QUIT 15 YRS OR MORE [facility] Apr 21, 2020 09:00 AM VA-TOBACCO FORMER USER [facility] Apr 21, 2020 09:00 AM VA-TOBACCO QUIT 15 YRS OR MORE [facility] Apr 03, 2018 03:16 PM FORMER TOBACCO USE >1Y <7Y [facility] Mar 09, 2007 10:41 AM CURRENT TOBACCO USER [facility] Advance Directives: All historical and current Section Date Range: From patient's date of to the date document was created. This section includes ALL of a patient's completed or amended [place] Advance and Rescinded Directives. The entries below indicate that a directive exists for the patient, but an actual copy is not included with this document. The data comes from all [place] facilities. 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
--- OUTSIDE RECORDS SUMMARY | 2024-02-19 14:48 | XMS_ITS | Encounter Summary ---
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 [facility] [place] Address [address] [place] [address] Care Team Providers Care Coffee Sampler Name Role Phone CHARLEE FISH Primary Care Provider Unavail le Insurance Providers: All historical and current [...] MEDIC ARE SUPPL EMENT Jul 31, 2018 [id number] RENKANE LUGO ALEX PATIENT [place] MED[place] SUPPLEMEN [place] MEDIC ARE SUPPL EMENT Jul 31, 2018 [id number] [phone] RENBRITTNEY,JU ALEX PATIENT [place] [facility] (WNR) MEDICARE ADVANTAGE [facility] (WNR) Jul 31, 2017 [id number] [phone] RENAUX,JU ALEX PATIENT [place] MED[place] SUPPLEMEN [place]OT MEDIC ARE SUPPL EMENT Jul 31, 2018 [id number] RENAUX,JU A[place] PAT[place] MEDIC ARE SUPPL EMENT Jul 31, 2018 [id number] [phone] RENBRITTNEY,JU ALEX PATIENT MEDICARE (WNR) MEDICARE (M) PART A May 31, 2011 PART A [id number] [phone] KANE PÉREZ PATIENT MEDICARE (WNR) MEDICARE (M) PART B May 31, 2011 PART B [id number] [phone] KANE PÉREZ PATIENT Selected Encounter This section includes the information on record at [place] for the Encounter. Date/Time Encounter Type Encounter Description Reason Provider Source Jan 19, 2024 08:08 AM Outpatient Encounter ENDOCRINOLOGY ICD-10-CM E11.42 Type 2 diabetes mellitus with diabetic polyneuropathy Cynthia TONEY Candy Encounter Template Text not used by [place] Assessments - Encounter Diagnoses This section includes the primary and secondary diagnoses documented for the Encounter. Date/Time Primary/Secondary Diagnosis Diagnosis Name Provider Source Jan 19, 2024 08:11 AM PRIMARY Type 2 diabetes mellitus with diabetic polyneuropathy JESSICA LUGO [facility] Plan of Treatment: Future Appointments (+ 6 months) and Future Tests (+/- 45 days) The Plan of Treatment section includes future care activities for the patient from all [place] [facility] This section includes future appointments and future orders which are active, pending or scheduled. Future Appointments This section includes appointments that were scheduled to occur 6 months from the date of the Encounter, up to a maximum of 20 appointments. The data comes from all [place] treatment facilities. Appointment Date/Time Appointment Type Appointme nt Facility Name Feb 22, 2024 04:00 PM AMBULATORY - NONE [facility] Social History: Smoking Status (Most current) and Tobacco Use (All prior to encounter date) This section includes the most current, and the historical, smoking and tobacco- related health factors from the [place] facility where the Encounter took place. Current Smoking Status This section includes the most current smoking, or tobacco-related health factor, from the [place] facility where the Encounter took place. Date/Time Current Smoking Status Comment Diego ity Aug 18, 2022 08:30 AM [place]-TOBACCO QUIT 15 YRS OR MORE [facility] Tobacco Use History This section includes a history of the smoking, or tobacco-related health factors, that were collected on or before the date of the Encounter. The data comes from the [place] facility where the Encounter took place. Date/Time Smoking Status/Tobacco Use Comment F acsamir Aug 18, 2022 08:30 AM [place]-TOBACCO QUIT 15 YRS OR MORE [facility] May 03, 2021 08:00 AM VA-TOBACCO FORMER USER [facility] May 03, 2021 08:00 AM VA-TOBACCO QUIT 15 YRS OR MORE [facility] Apr 21, 2020 09:00 AM VA-TOBACCO FORMER USER [facility] Apr 21, 2020 09:00 AM [place]-TOBACCO QUIT 15 YRS OR MORE [facility] Apr 03, 2018 03:16 PM FORMER TOBACCO USE >1Y <7Y [facility] Mar 09, 2007 10:41 AM CURRENT TOBACCO USER [facility] Advance Directives: All historical and current Section Date Range: From patient's date of to the date document was created. This section includes ALL of a patient's completed or amended [place] Advance and Rescinded Directives. The entries below indicate that a directive exists for the patient, but an actual copy is not included with this document. The data comes from all [facility]. Date Advance Directives Provider Source Jun 22, 2021 ADVANCE DIRECTIVE DISCUSSION ALLYSON GRAF [facility] Jun 22, 2021 ADVANCE DIRECTIVE ALLYSON GRAF [facility] Mar 09, 2007 ADVANCE DIRECTIVE SOLEDAD WOLFF [facility] Encounter Notes: All associated encounter notes This section contains the clinical notes associated to the Encounter. Date/Time Encounter Note(s) Provider Source Jan 19, 2024 08:08 AM DIABETOLOGY CONSUL T: [facility] TITLE: DIABETES DEVICE CONSULT STANDARD TITLE: DIABETOLOGY CONSULT DATE OF NOTE: JAN 19, 2024@08:08 ENTRY DATE: JAN 19, 2024@08:08:47 AUTHOR: JESSICA LUGO EXP COSIGNER: URGENCY: STATUS: COMPLETED Diabetes Device Consult consulted to Metabolic for consideration for personal Continuous Glucose Monitoring System. *Approval or disapproval for diabetes technology devices is based upon review of CPRS, JLV and outside records if available. Treatment by [place] Endocrinology or contracting specialist Diagnosis of Diabetes Mellitus (type I [...] CONTAINER WITH A SCREW-ON LID CONTACT [facility] FOR PROPER DISPOSAL SEMAGLUTIDE 1MG/0.75ML INJ PEN 3ML ACTIVE SIG: INJECT 1MG UNDER THE SKIN EVERY WEEK FOR DIABETES INPT MEDICATIONS:NONE Recommendations: meets criteria for personal CGM. Case reviewed with Chief of Metabolic Service Line or proxy; is approved for personal CGM. /toby/ Jessica Lugo RN, [facility] Certified Diabetes Care & Accounting Associate Signed: 01/19/2024 08:11 JESSICA LUGO [facility]
--- OUTSIDE RECORDS SUMMARY | 2024-02-19 14:48 | XMS_ITS | Encounter Summary ---
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 [facility] [place] Address [address] [place] [address] Care Team Providers Care Bar Examiner Name Role Phone CHARLEE FISH Primary Care Provider [facility] Insurance Providers: All historical and current [...] MEDIC ARE SUPPL EMENT Jul 31, 2018 [id number] KANE PÉREZ ALEX PATIENT [place] MED[place] SUPP[place] MEDIC ARE SUPPL EMENT Jul 31, 2018 [id number] [phone] RENBRITTNEY,JU ALEX PATIENT [place] [facility] ([place]NR) MEDICARE ADVANTAGE [facility] (WNR) Jul 31, 2017 [id number] [phone] RENBRITTNEY,KANE ALEX PATIENT [place] MEDICARE SUPPLEMEN [place]OT MEDIC ARE SUPPL EMENT Jul 31, 2018 [id number] RENBRITTNEY,KANE ALEX [place] MEDIC ARE SUPPL EMENT Jul 31, 2018 [id number] [phone] KANE PÉREZ PATIENT MEDICARE (WNR) MEDICARE (M) PART A May 31, 2011 PART A [id number] [phone] KANE PÉREZ PATIENT MEDICARE (WNR) MEDICARE (M) PART B May 31, 2011 PART B [id number] [phone] KANE PÉREZ PATIENT Selected Encounter This section includes the information on record at [place] for the Encounter. Date/Time Encounter Type Encounter Description Reason Provider Source Jan 19, 2024 09:01 AM QNHP OL DIG ASSMT&MGMT 5-10 CLINICAL PHARMACY ICD-10-CM E11.42 Type 2 diabetes mellitus with diabetic polyneuropathy HUBERT CHOWDHURY [facility] Encounter Template Text not used by [place] Assessments - Encounter Diagnoses This section includes [...] care activities for the patient from all [place] treatmentfacilities. This section includes future appointments and future orders which are active, pending or scheduled. Future Appointments This section includes appointments that were scheduled to occur 6 months from the date of the Encounter, up to a maximum of 20 appointments. The data comes from all [place] treatment facilities. Appointment Date/Time Appointment Type Appointme nt Facility Name Feb 22, 2024 04:00 PM AMBULATORY - NONE [facility] Social History: Smoking Status (Most current) and Tobacco Use (All prior to encounter date) This section includes the most current, and the historical, smoking and tobacco- related health factors from the [place] facility where the Encounter took place. Current Smoking Status This section includes the most current smoking, or tobacco-related health factor, from the [place] facility where the Encounter took place. Date/Time Current Smoking Status Comment Diego peng Aug 18, 2022 08:30 AM VA-TOBACCO FORMER USER [facility] Tobacco Use History This section includes a history of the smoking, or tobacco-related health factors, that were collected on or before the date of the Encounter. The data comes from the [place] facility where the Encounter took place. Date/Time [...] ALL of a patient's completed or amended [place] Advance and Rescinded Directives. The entries below indicate that a directive exists for the patient, but an actual copy is not included with this document. The data comes from all [facility]. Date Advance Directives Provider Source Jun 22, 2021 ADVANCE DIRECTIVE DISCUSSION ALLYSON GRAF [facility] Jun 22, 2021 ADVANCE DIRECTIVE ALLYSON GRAF [facility] Mar 09, 2007 ADVANCE DIRECTIVE SOLEDAD WOLFF [facility] Encounter Notes: All associated encounter notes This section contains the clinical notes associated to the Encounter. Date/Time Encounter Note(s) Provider Source Jan 19, 2024 09:01 AM PHARMACY CONSULT: LOCAL TITLE: PHARMACY PRIOR AUTHORIZATION APPROVED CONSULT STANDARD TITLE: PHARMACY CONSULT DATE OF NOTE: JAN 19, 2024@09:01 ENTRY DATE: JAN 19, 2024@09:01:32 AUTHOR: HUBERT CHOWDHURY COSIGNER: URGENCY: STATUS: COMPLETED The medical record [...] CONTAINER WITH A SCREW-ON LID CONTACT [facility] FOR PROPER DISPOSAL OMEPRAZOLE 20MG EC [...] Pharm.D PHARMACIST Signed: 01/19/2024 09:04 HUBERT CHOWDHURY [facility]
== END 2024-02-19 14:46 | disposition home or self-care (01) ==
LOC: WOUND 14:45
PROVIDERS: Visit Provider Nurse Practitioner Family
DX: E11.621 Type 2 diabetes mellitus with foot ulcer (principal); L97.512 Non-pressure chronic ulcer of other part of right foot with fat layer exposed; I89.0 Lymphedema, not elsewhere classified; Z79.4 Long term (current) use of insulin; Z79.84 Long term (current) use of oral hypoglycemic drugs
CPT/HCPCS: 11042; 87070; 87186; G0463

== ENCOUNTER 2024-02-26 15:21 | Outpatient (CLI) | payer MEDICARE, BC, SELFPAY ==
--- OUTSIDE RECORDS SUMMARY | 2024-02-26 15:25 | XMS_ITS | Clinical Summary ---
Author Organization [facility] Address [place], [place] [address] Care Team Providers Care Death Claim Clerk Name Role Phone Post, Dave Velazquez MD Primary Care Provider Moshe Enciso MD Unavailable Arie Justin MD Unavailable [phone] [facility], [facility] Unavailable [phone] Murali Hoover DPM Unavailable [phone] Allergies No known active allergies Medications [...] to Care Guide Pamella Brennan Phone number [phone]. Alcohol abuse 06/02/2010 03/26/2019 Overview: Sober since 2001. Great success with AA. 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 10/06/2023 Pyogenic arthritis of left shoulder region 06/17/2022 Encounters Date Type Department Care Team Description 11/28/2023 Telephone [facility] [address] [facility] [address] [place] [address] Post, Dave Velazquez MD Outside Order from [...] 36.7 ??C (98 ??F) 06/29/2022 8:43 AM CARE GIVER Respiratory Rate 18 06/29/2022 8:43 AM CARE GIVER Oxygen Saturation 96% 07/21/2023 1:34 PM CARE GIVER Inhaled Oxygen Concentration - - Weight 107 kg (236 lb) 11/03/2023 11:13 AM CDT w ith shoes Height 180.3 cm (5' 10.98) 07/21/2023 1:[address] Body Mass Index 32.93 07/21/2023 1:34 PM CARE GIVER Plan of Treatment Health Maintenance Due Date [...] 07/16/2020, 04/21/2020 Medical Devices Implanted Type Area Tiler'S Assistant Device Identifier Shelf Expiration Date Model / Serial / Lot Yku-[id number] - [id number] Implanted:Qty: 1 on 09/20/2021 at [facility] Right: Foot [employer] AR-8725-4 4H / / Description:COMPRESSION FT S CREWS CANNULATED, 2.5 MICRO 44MM LOAD 4 7 [id number] [facility]-1530p - [id number] Implanted:Qty: 1 on 09/20/2021 at [facility] Right: Foot [employer] 03/30/2025 AR-1530P- CP / / [id number] Description:FOREFOOT INTERNA L BRACE IMPLANT SYSTEM, PEEK Screw 4.09a46oz Bio Compositetenodesis Disp Hyperion Administrator Pk - [id number] Implanted:Qty: 1 on 09/20/2021 at [facility] Right: Foot [employer] 08/30/2022 AR-1547CD S / / [id number] Ancr Sut 1.3mm Dx Fibertak Suturetape 2 Ndl 26.2mm 08/01 [facility] - [id number] Implanted:Qty: 1 on 09/20/2021 at [facility] Right: Foot [employer] 06/29/2026 AR-8990ST / / [id number] Explanted Type Area Tiler'S Assistant Device Identifier Shelf Expiration Date Model / Serial / Lot Wire Kirs .[id number] Smooth6/Pk Depuy/Héctor - [id number] Explanted:Qty: 1 on 09/20/2021 at [facility] Right: Foot [employer] / / Description:LOAD 4 8 [id number] [facility]8737-40 - [id number] Explanted:Qty: 1 on 09/20/2021 at [facility] Right: Foot [employer] AR-8737-40 / / Description:2.5 MICRO COMPRE SSION FT DRILLS AND DISPOSABLES, GUIDEWIRE W TROCAR TIP, THREADED, 0.34 IN (.86MM) LOAD 4 7 [id number] Procedures Procedure Name Priority Date/Time Associated Diagnosis Comments CT CHEST PE STUDY Routine 05/10/2022 7:5 0 PM CDT OCCULT BLOOD IFOBT STOOL Routine 07/03/2013 7:00 PM CARE GIVER Screening for colon cancer from Last 3 [...] Occult Blood Stool (IFOBT) (07/03/2013 7:00 PM CARE GIVER) STOOL BLOOD ,IFOBT Negative Negative, Invalid 07/04/2013 3:03 PM CARE GIVER [facility] Stool specimen (specimen) STOOL SPECIMEN / Unknown Non-Blood / Unknown 07/03/2013 7:00 PM CARE GIVER 07/04/2013 2:39 PM CARE GIVER Dave Garrett MD LABORATORY [facility] [address] [place] [address] from Last 3 Months or Most Recently Relevant to Health Maintenance Advance Directives Documents on File Type Date Recorded Patient Gunner Mate Expl anation Healthcare Directive 05/21/2021 3:50 PM [...] Code Status Discussion: Reviewed Preferences Care Teams Death Claim Clerk Relationship Specialty Start Date End Date Post, Dave Velazquez MD PCP - General 06/02/10 Moshe Enciso MD [address] [facility] [address] [place] [address] Endocrinology Endocrinology 01/04/18 [place] [address] [place] [address] Surgery - Ophthalmology 03/22/18 [facility] [address] [place] [address] 06/08/21 Murali Hoover DPM [address] [address] Surgery - Podiatric 01/03/23
--- OUTSIDE RECORDS SUMMARY | 2024-02-26 15:25 | XMS_ITS | Referral Summary ---
Author Organization [place] Address [address] [place] [address] Care Team Providers Care Vice President Underwriting Name Role Phone Post, Dave Wakefield Primary Care Provider [phone] Medications Medication Sig Dispensed Refills Start Date [...] Comments Blood Pressure 148/85 06/26/2018 5:58 PM FINAL INSPECTOR TRUCK TRAILER Pulse 90 06/26/2018 5:58 PM FINAL INSPECTOR TRUCK TRAILER Temperature 36.6 ??C (97.8 ??F) 06/26/2018 5:58 PM CS T Respiratory Rate 18 06/26/2018 5:58 PM FINAL INSPECTOR TRUCK TRAILER Oxygen Saturation 95% 06/26/2018 7:00 PM FINAL INSPECTOR TRUCK TRAILER Inhaled Oxygen Concentration - - Weight 112 kg (247 lb) 06/26/2018 5:58 PM FINAL INSPECTOR TRUCK TRAILER Height 180.3 cm (5' 11) 06/26/2018 5:58 PM FINAL INSPECTOR TRUCK TRAILER Body Mass Index 34.45 06/26/2018 5:58 PM FINAL INSPECTOR TRUCK TRAILER Plan of Treatment Not on file Care Teams Vice President Underwriting Relationship Specialty Start Date End Date Post, Dave Wakefield PCP - General Internal Medicine 06/26/18
--- OUTSIDE RECORDS SUMMARY | 2024-02-26 15:25 | XMS_ITS | Continuity of Care Document ---
Author Name [facility] Organization [facility] Care Team Providers Care Loan Servicing Representative Name Role Phone [facility] Unavailable Unavailable Problems Combined list of problems from Department of Defense and Veterans Affairs facilities. It does not include entries that were removed or entered in error. Problem Status Onset Date Problem Type Date of Resolution Comments Source Exposure to potentially hazardous substance ([facility] [id number]) Active 10/05/19 24 Condition Oct 05, 2023 Entered By: VIJI VIVAS Comment: [facility] CH[facility] Documentation Initiative [facility] Depressive Disorder NOS * (ICD-9-CM 311./300.4) Active Condition [facility] Diabetes mellitus (SNOMED CT 48554478) Active Condition [facility] Diabetic neuropathy Active Condition [facility] Foot Pain (ICD-9-CM 719.47) Active Condition Aug 26 10 Entered By: MALINA WORLEY Comment: left 5th metatarsal fracture [facility] History of amputation of lesser toe Active Condition [facility] Hyperlipidemia (SNOMED CT 43738260) Active Condition [facility] Hyperuricemia Active Condition [facility] Osteopenia Active Condition [facility] Other Iatrogenic Hypotension Active Condition [facility]) Personal History of Alcoholism (ICD-9-CM V11.3) Active Condition [facility] Tobacco user (SNOMED CT 260562739) Active Condition [facility] Diagnosis: ICD-10-CM E11.42 Type 2 diabetes mellitus with diabetic polyneuropathy Active Diagnosis [facility] Diana [facility] Diagnosis: ICD-10-CM E11.621 Type 2 diabetes mellitus with foot ulcer Active Diagnosis [facility] Diagnosis: ICD-10-CM Z77.29 Contact with and exposure to other hazardous substances Active Diagnosis [facility] Medications Combined list of outpatient medications [...] ed by: CHARLEE FISH Document ed at: [facility] ORAL ACTIVE CHARLEE FISH 2022 [facility] ASPIRIN 81MG TAB,EC ASPIRIN 81MG TAB,EC Non-VA TAKE ONE TABLET BY MOUTH EVERY DAY Mar 13, 2007 Non-VA Document ed by: MARY CHOUDHARY Document ed at: [facility] ORAL ACTIVE JEFF CHOUDHARY A 2006 [facility] ATORVASTATI N CA 40MG TAB ATORVAST ATIN CA 40MG TAB Active TAKE ONE TABLET BY MOUTH EVERY DAY FOR CHOLESTE ROL Apr 11, 2023 90 Apr 11, 2024 [id number] December 17, 2023 CHARLEE FISH [facility] ORAL ACTIVE 04/11/2024 [id number] CHARLEE FISH 2022 90 [facility] ATORVASTATI N CA 40MG TAB ATORVAST ATIN CA 40MG TAB Disconti nued TAKE ONE TABLET BY MOUTH EVERY DAY FOR CHOLESTE ROL Jul 14, 2022 90 Jul 15, 2023 [id number] Mar 31, 2023 NAIDL,TO DD [facility] ORAL DISCONT INUED 07/15/2023 [id number] NAIDL,TOD D 2022 90 [facility] CHOLECALCIF QUINTIN TAB CHOLECAL CIFEROL TAB Non-VA TAKE 5000 UNITS BY MOUTH EVERY DAY Aug 21, 2022 Non-VA Document ed by: CHARLEE FISH Document ed at: [facility] ORAL ACTIVE CHARLEE FISH 2022 [facility] COENZYME Q10 CAP/TAB COENZYME Q10 CAP/TAB Non-VA TAKE 1 CAPSULE BY MOUTH EVERY DAY Aug 21, 2022 Non-VA Document ed by: CHARLEE FISH Document ed at: [facility] ORAL ACTIVE CHARLEE FISH 2022 [facility] CYANOCOBALA MIN 1000MCG TAB CYANOCOB ALAMIN 1000MCG TAB Non-VA TAKE ONE TABLET BY MOUTH EVERY DAY Mar 09, 2022 Non-VA Document ed by: MAUREEN BRITO DD Document ed at: [facility] ORAL ACTIVE DEAN BRITO 2021 [facility] DICLOFENAC NA 1% GEL,TOP DICLOFEN AC NA 1% GEL,TOP Active APPLY 4 GRAMS TOPICALL Y FOUR TIMES A DAY NEEDED FOR JOINT PAIN JOINT PAIN Mar 22, 2023 100 Mar 22, 2024 [id number] Mar 22, 2023 FISH CHARLEE Bowers [facility] TOPICA L ACTIVE 03/22/2024 [id number] ABE CHARLEE A 2022 100 [facility] FINASTERIDE 5MG TAB FINASTER RACHEL 5MG TAB Active TAKE ONE TABLET BY MOUTH EVERY DAY FOR PROSTATE FOR PROSTATE Apr 11, 2023 90 Apr 11, 2024 [id number] A Jan 08, 2024 CHARLEE FISH [facility] ORAL ACTIVE 04/11/2024 [id number] CHARLEE FISH 2022 90 [facility] FINASTERIDE 5MG TAB FINASTER RACHEL 5MG TAB Disconti nued TAKE ONE TABLET BY MOUTH EVERY DAY FOR PROSTATE FOR PROSTATE Jul 12, 2022 90 Jul 13, 2023 [id number] Mar 31, 2023 FISHCHARLEE Bowers [facility] ORAL DISCONT INUED 07/13/2023 [id number] ABE CHARLEE A 2021 90 [facility] FISH OIL 1000MG (500MG DHA/EPA) CAP,ORAL FISH OIL 1000MG (500MG DHA/EPA) CAP,ORAL Non-VA TAKE 1 CAPSULE BY MOUTH TWICE A DAY Mar 13, 2007 Non-VA Document ed by: MARY CHOUDHARY A Document ed at: [facility] ORAL ACTIVE JEFF CHOUDHARY 2006 [facility] INSULIN,GLA RGINE-YFGN 100UNIT/ML INJ PEN,3ML INSULIN, GLARGINE -YFGN 100UNIT/ ML INJ PEN,3ML Active INJECT 24 UNITS UNDER THE SKIN EVERY EVENING FOR DIABETES FOR DIABETES Aug 29, 2023 5 Aug 29, 2024 [id number] Jan 07, 2024 NAIDL,TO DD [facility] SUBCUT ANEOUS ACTIVE 08/29/2024 [id number] NAIDL,TOD D 2023 5 [facility] INSULIN,GLA RGINE-YFGN 100UNIT/ML INJ PEN,3ML INSULIN, GLARGINE -YFGN 100UNIT/ ML INJ PEN,3ML Disconti nued INJECT 22 UNITS UNDER THE SKIN AT BEDTIME FOR DIABETES FOR DIABETES Jan 06, 2023 5 Jan 07, 2024 [id number] Jul 25, 2023 NAIDL,TO DD [facility] SUBCUT ANEOUS DISCONT INUED (EDIT) 01/07/2024 [id number] NAIDL,TOD D 2022 5 [facility] INSULIN,GLA RGINE-YFGN 100UNIT/ML INJ PEN,3ML INSULIN, GLARGINE -YFGN 100UNIT/ ML INJ PEN,3ML Disconti nued INJECT 20 UNITS UNDER THE SKIN AT BEDTIME FOR DIABETES FOR DIABETES December 07, 2022 5 December 08, 2023 [id number] Jan 06, 2023 NAIDL,TO DD [facility] SUBCUT ANEOUS DISCONT INUED (EDIT) 12/08/2023 [id number] 3 NAIDL,TOD D 2022 5 [facility] LIDOCAINE 4% CREAM,TOP LIDOCAIN E 4% CREAM,TO P Active APPLY MODERATE AMOUNT TOPICALL Y THREE TIMES A DAY FOR PAIN PAIN Mar 22, 2023 30 Mar 22, 2024 [id number] Mar 22, 2023 CHARLEE FISH [facility] TOPICA L ACTIVE 03/22/2024 [id number] CHARLEE FISH 2022 30 [facility] MAGNESIUM OXIDE 400MG TAB MAGNESIU M OXIDE 400MG TAB Non-VA TAKE ONE TABLET BY MOUTH EVERY DAY Aug 21, 2022 Non-VA Document ed by: CHARLEE FISH Document ed at: [facility] ORAL ACTIVE CHARLEE FISH 2022 [facility] MENTHOL/MET HYL SALICYLATE (10-15%) LOW CONC. CREAM,TOP MENTHOL/ METHYL SALICYLA TE (10-15%) LOW CONC. CREAM,TO P Active APPLY THIN LAYER TOPICALL Y THREE TIMES A DAY FOR MUSCLE PAIN MUSLCE PAIN Mar 22, 2023 90 Mar 22, 2024 [id number] Mar 22, 2023 CHARLEE FISH [facility] TOPICA L ACTIVE 03/22/2024 [id number] CHARLEE FISH 2022 90 [facility] METFORMIN HCL 1000MG TAB METFORMI N HCL 1000MG TAB Active TAKE ONE TABLET BY MOUTH TWICE A DAY FOR DIABETES Apr 11, 2023 180 Apr 11, 2024 [id number] E Feb 19, 2024 CHARLEE FISH [facility] ORAL ACTIVE 04/11/2024 [id number] CHARLEE FISH 2022 180 [facility] METFORMIN HCL 1000MG TAB METFORMI N HCL 1000MG TAB Disconti nued TAKE ONE TABLET BY MOUTH TWICE A DAY FOR DIABETES Jul 14, 2022 180 Jul 15, 2023 [id number] D Apr 06, 2023 NAIDL,TO DD [facility] ORAL DISCONT INUED 07/15/2023 [id number] NAIDL,TOD D 2022 180 [facility] OMEPRAZOLE 20MG CAP,EC OMEPRAZO LE 20MG CAP,EC Active TAKE ONE CAPSULE BY MOUTH EVERY DAY ON AN EMPTY STOMACH, AT LEAST 30 MINUTES PRIOR TO A MEAL FOR GERD GERD Mar 22, 2023 90 Mar 22, 2024 [id number] December 22, 2023 CHARLEE FISH [facility] ORAL ACTIVE 03/22/2024 [id number] CHARLEE FISH 2022 90 [facility] SEMAGLUTIDE 1MG/0.75ML INJ,SOLN,PE N,3ML SEMAGLUT RACHEL 1MG/0.75 ML INJ,SOLN ,PEN,3ML Active INJECT 1MG UNDER THE SKIN EVERY WEEK FOR DIABETES FOR DIABETES Nov 07, 2023 1 Nov 07, 2024 [id number] Feb 23, 2024 NAIDL,TO DD [facility] SUBCUT ANEOUS ACTIVE 11/07/2024 [id number] NAIDL,TOD D 2023 1 [facility] SEMAGLUTIDE 1MG/0.75ML INJ,SOLN,PE N,3ML SEMAGLUT RACHEL 1MG/0.75 ML INJ,SOLN ,PEN,3ML Disconti nued INJECT 1MG UNDER THE SKIN EVERY WEEK FOR DIABETES FOR DIABETES Nov 07, 2022 1 Nov 08, 2023 [id number] Nov 06, 2023 NAIDL,TO DD [facility] SUBCUT ANEOUS DISCONT INUED 11/08/2023 [id number] NAIDL,TOD D 2022 1 [facility] TAMSULOSIN HCL 0.4MG CAP TAMSULOS IN HCL 0.4MG CAP Active TAKE ONE CAPSULE BY MOUTH EVERY EVENING PROSTATE Apr 13, 2023 30 Apr 13, 2024 [id number] Feb 19, 2024 CHARLEE FISH [facility] ORAL ACTIVE 04/13/2024 [id number] CHARLEE FISH 2022 30 [facility] TAMSULOSIN HCL 0.4MG CAP TAMSULOS IN HCL 0.4MG CAP Disconti nued TAKE ONE CAPSULE BY MOUTH EVERY EVENING PROSTATE Apr 11, 2023 90 Apr 11, 2024 [id number] A Apr 21, 2023 CHARLEE FISH [facility] ORAL DISCONT INUED 04/11/2024 [id number] CHARLEE FISH 2022 90 [facility] TAMSULOSIN HCL 0.4MG CAP TAMSULOS IN HCL 0.4MG CAP Disconti nued TAKE ONE CAPSULE BY MOUTH EVERY EVENING PROSTATE Aug 03, 2022 90 Aug 04, 2023 [id number] Jan 21, 2023 CHARLEE FISH [facility] ORAL DISCONT INUED 08/04/2023 [id number] CHARLEE FISH 2022 90 [facility] TURMERIC CAP/TAB TURMERIC CAP/TAB Non-VA TAKE 500 MG BY MOUTH TWICE A DAY Apr 22, 2019 Non-VA Document ed by: MATTY WOO Document ed at: [facility] ORAL ACTIVE MATTY POWERS 2018 [facility] Allergies, Adverse Reactions, Alerts Combined list of allergies from Department of Defense and Veterans Affairs facilities. It does not include entries that were removed or entered in error. Substance Category Reaction Severity Reaction type Status Date Reported Comments Source VANCOMYCIN Propensity to adverse reactions to drug (finding) [place] active 8 [facility] Immunizations Combined list of available immunizations from the Department of [facility] and Veterans Affairs facilities. 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 Comments Source ZOSTER RECOMBINANT 2 2019 187 complet ed [facility] INFLUENZA, INJECTABLE, QUADRIVALENT, PRESERVATIVE FREE 2019 150 complet ed [facility] ZOSTER RECOMBINANT 1 2019 187 complet ed [facility] INFLUENZA, HIGH-DOSE, QUADRIVALENT 2019 197 complet ed [facility] INFLUENZA, SEASONAL, INJECTABLE, PRESERVATIVE FREE 2017 140 complet ed [facility] INFLUENZA, INJECTABLE, QUADRIVALENT, PRESERVATIVE FREE 2017 150 complet ed [facility] INFLUENZA, INJECTABLE, QUADRIVALENT, PRESERVATIVE FREE 2015 150 complet ed [facility] TDAP 2015 115 complet ed [facility] TA PNEUMOCOCCAL CONJUGATE PCV 13 2015 133 complet ed [facility] TD (ADULT), 5 LF TETANUS TOXOID, PRESERVATIVE FREE, ADSORBED 2015 113 complet ed [facility] INFLUENZA, INJECTABLE, QUADRIVALENT, PRESERVATIVE FREE 2013 150 complet ed [facility] PNEUMOCOCCAL POLYSACCHARID E PPV23 2010 33 complet ed [facility] INFLUENZA, UNSPECIFIED FORMULATION 2006 88 complet ed [facility] PNEUMOCOCCAL, UNSPECIFIED FORMULATION 2006 109 complet ed [facility] TD(ADULT) UNSPECIFIED FORMULATION 2006 NONE 139 complet ed [facility] TETANUS TOXOID, UNSPECIFIED FORMULATION 2006 NONE 112 complet [facility] Results Combined list of recent chemistry, [...] Aug 21, 2022 03:48 PM Reporting Lab: [facility] [address] Performing Lab: [facility] [address] [facility] BASIC METABOLIC PANEL+MG CREATININE [MASS/VOLUM E] IN SERUM OR PLASMA 1.2 mg/dL 0.7 - 1.2 03/22 Specimen Type: PLASMA No comment entered. Ordering Provider: ME LEEROY FISH Report Released Date/Time: Aug 21, 2022 03:48 PM Reporting Lab: [facility] [address] Performing Lab: [facility] [address] [place] [facility] BASIC METABOLIC PANEL+MG UREA NITROGEN [MASS/VOLUM E] IN SERUM OR PLASMA 15 mg/dL 8 - 03/22 Specimen Type: PLASMA No comment entered. Ordering Provider: ME LEEROY FISH Report Released Date/Time: Aug 21, 2022 03:48 PM Reporting Lab: [facility] [address] Performing Lab: [facility] [address] [place] [facility] BASIC METABOLIC PANEL+MG GLUCOSE [MASS/VOLUM E] IN SERUM OR PLASMA 145 mg/dL 70 - 100 03/22 H Specimen Type: PLASMA No comment entered. Ordering Provider: ME LEEROY FISH Report Released Date/Time: Aug 21, 2022 03:48 PM Reporting Lab: [facility] [address] Performing Lab: [facility] [address] [place] [facility] BASIC METABOLIC PANEL+MG SODIUM [MOLES/VOLU ME] IN SERUM OR PLASMA 138 mmol/L 136 - 145 03/22 Specimen Type: PLASMA No comment entered. Ordering Provider: ME LEEROY FISH Report Released Date/Time: Aug 21, 2022 03:48 PM Reporting Lab: [facility] [address] Performing Lab: [facility] [address] [place] [facility] BASIC METABOLIC PANEL+MG POTASSIUM [MOLES/VOLU ME] IN SERUM OR PLASMA 4.5 mmol/L 3.5 - 5.1 03/22 Specimen Type: PLASMA No comment entered. Ordering Provider: ME LEEROY FISH Report Released Date/Time: Aug 21, 2022 03:48 PM Reporting Lab: [facility] [address] Performing Lab: [facility] [address] [place] [facility] BASIC METABOLIC PANEL+MG CHLORIDE [MOLES/VOLU ME] IN SERUM OR PLASMA 101 mmol/L 98 - 107 03/22 Specimen Type: PLASMA No comment entered. Ordering Provider: ME LEEROY FISH Report Released Date/Time: Aug 21, 2022 03:48 PM Reporting Lab: [facility] [address] Performing Lab: [facility] [address] [place] [facility] BASIC METABOLIC PANEL+MG CARBON DIOXIDE, TOTAL [MOLES/VOLU ME] IN SERUM OR PLASMA 27 mmol/L 22 - 29 03/22 Specimen Type: PLASMA No comment entered. Ordering Provider: ME LEEROY FISH Report Released Date/Time: Aug 21, 2022 03:48 PM Reporting Lab: [facility] [address] Performing Lab: [facility] [address] [place] [facility] BASIC METABOLIC PANEL+MG CALCIUM [MASS/VOLUM E] IN SERUM OR PLASMA 10.0 mg/dL 8.4 - 10.2 03/22 Specimen Type: PLASMA No comment entered. Ordering Provider: ME LEEROY FISH Report Released Date/Time: Aug 21, 2022 03:48 PM Reporting Lab: [facility] [address] Performing Lab: [facility] [address] [place] [facility] BASIC METABOLIC PANEL+MG MAGNESIUM [MASS/VOLUM E] IN SERUM OR PLASMA 1.9 mg/dL 1.6 - 2.6 03/22 Specimen Type: PLASMA No comment entered. Ordering Provider: ME LEEROY FISH Report Released Date/Time: Aug 21, 2022 03:48 PM Reporting Lab: [facility] [address] Performing Lab: [facility] [address] [place] [facility] BASIC METABOLIC PANEL+MG ANION GAP IN SERUM OR PLASMA 10 mmol/L 5 - 15 03/22 Specimen Type: PLASMA No comment entered. Ordering Provider: ME LEEROY FISH Report Released Date/Time: Aug 21, 2022 03:48 PM Reporting Lab: [facility] [address] Performing Lab: [facility] [address] [place] [facility] BASIC METABOLIC PANEL+MG GLOMERULAR FILTRATION RATE/1.73 SQ M.PREDICTED [VOLUME RATE/AREA] IN SERUM, PLASMA OR BLOOD BY CREATININE- BASED FORMULA (CKD-EPI 2020) 63 60 03/22 Specimen Type: PLASMA No comment entered. Ordering Provider: ME LEEROY FISH Report Released Date/Time: Aug 21, 2022 03:48 PM Reporting Lab: [facility] [address] Performing Lab: [facility] [address] [place] [facility] HEMOGLOBI N A1C HEMOGLOBIN A1C/HEMOGLO [...] December 22, 2021 03:46 PM Reporting Lab: [address] Performing Lab: [facility] [address] [place] [facility] BASIC METABOLIC PANEL+MG CREATININE [MASS/VOLUM E] IN SERUM OR PLASMA 0.9 mg/dL 0.7 - 1.2 08/18 Specimen Type: PLASMA No comment entered. Ordering Provider: ME LEEROY FISH Report Released Date/Time: December 22, 2021 03:46 PM Reporting Lab: [place] [address] Performing Lab: [place] [phone] [place] [facility] BASIC METABOLIC PANEL+MG UREA NITROGEN [MASS/VOLUM E] IN SERUM OR PLASMA 12 mg/dL 8 - 26 08/18 Specimen Type: PLASMA No comment entered. Ordering Provider: ME LEEROY FISH Report Released Date/Time: December 22, 2021 03:46 PM Reporting Lab: [facility] [address] Performing Lab: [facility] [address] [place] [facility] BASIC METABOLIC PANEL+MG GLUCOSE [MASS/VOLUM E] IN SERUM OR PLASMA 184 mg/dL 70 - 100 08/18 H Specimen Type: PLASMA No comment entered. Ordering Provider: ME LEEROY FISH Report Released Date/Time: December 22, 2021 03:46 PM Reporting Lab: [facility] [address] Performing Lab: [facility] [address] [place] [facility] BASIC METABOLIC PANEL+MG SODIUM [MOLES/VOLU ME] IN SERUM OR PLASMA 137 mmol/L 136 - 145 08/18 Specimen Type: PLASMA No comment entered. Ordering Provider: FISH,ME LODY A Report Released Date/Time: December 22, 2021 03:46 PM Reporting Lab: [facility] [address] Performing Lab: [facility] [address] [place] [facility] BASIC METABOLIC PANEL+MG POTASSIUM [MOLES/VOLU ME] IN SERUM OR PLASMA 3.9 mmol/L 3.5 - 5.1 08/18 Specimen Type: PLASMA No comment entered. Ordering Provider: ME LEEROY FISH Report Released Date/Time: December 22, 2021 03:46 PM Reporting Lab: [facility] [address] Performing Lab: [facility] [address] [place] [facility] BASIC METABOLIC PANEL+MG CHLORIDE [MOLES/VOLU ME] IN SERUM OR PLASMA 102 mmol/L 98 - 107 08/18 Specimen Type: PLASMA No comment entered. Ordering Provider: ME LEEROY FISH Report Released Date/Time: December 22, 2021 03:46 PM Reporting Lab: [facility] [address] Performing Lab: [facility] [address] [place] [facility] BASIC METABOLIC PANEL+MG CARBON DIOXIDE, TOTAL [MOLES/VOLU ME] IN SERUM OR PLASMA 26 mmol/L 22 - 29 08/18 Specimen Type: PLASMA No comment entered. Ordering Provider: ME LEEROY FISH Report Released Date/Time: December 22, 2021 03:46 PM Reporting Lab: [facility] [address] Performing Lab: [facility] [address] [place] [facility] BASIC METABOLIC PANEL+MG CALCIUM [MASS/VOLUM E] IN SERUM OR PLASMA 9.4 mg/dL 8.4 - 10.2 08/18 Specimen Type: PLASMA No comment entered. Ordering Provider: ME LEEROY FISH Report Released Date/Time: December 22, 2021 03:46 PM Reporting Lab: [facility] [address] Performing Lab: [facility] [address] [place] [facility] BASIC METABOLIC PANEL+MG MAGNESIUM [MASS/VOLUM E] IN SERUM OR PLASMA 1.6 mg/dL 1.6 - 2.6 08/18 Specimen Type: PLASMA No comment entered. Ordering Provider: ME LEEROY FISH Report Released Date/Time: December 22, 2021 03:46 PM Reporting Lab: [facility] [address] Performing Lab: [facility] [address] [place] [facility] BASIC METABOLIC PANEL+MG ANION GAP IN SERUM OR PLASMA 9 mmol/L 5 - 15 08/18 Specimen Type: PLASMA No comment entered. Ordering Provider: ME LEEROY FISH Report Released Date/Time: December 22, 2021 03:46 PM Reporting Lab: [facility] [address] Performing Lab: [facility] [address] [place] [facility] BASIC METABOLIC PANEL+MG GLOMERULAR FILTRATION RATE/1.73 SQ M.PREDICTED [VOLUME RATE/AREA] IN SERUM, PLASMA OR BLOOD BY CREATININE- BASED FORMULA (CKD-EPI) 89 60 08/18 Specimen Type: PLASMA No comment entered. Ordering Provider: ME LEEROY FISH Report Released Date/Time: December 22, 2021 03:46 PM Reporting Lab: [facility] [address] Performing Lab: [facility] [address] [facility] Vital Signs Combined list of [...] DC Date Status Disposition Source [place] [facility] HC PRO PHONE CALL 11-20 MIN [id number] [id number] Diagnos is: ICD-10- CM E11.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
NAIDKARI Egan 08/29 [facility] [place] [facility] HC PRO PHONE CALL 11-20 MIN [id number] [id number] Diagnos is: ICD-10- CM E11.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
NAIDL,KARI 09/29 [facility] IS [facility] HC PRO PHONE CALL 21-30 MIN [id number] [phone] Diagnos is: ICD-10- CM E11.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
NAIDL,KARI 11/07 [place] [facility] PRO PHONE CALL 11-20 MIN [id number] [id number] Diagnos is: ICD-10- CM E11.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
NAIDL,KARI 12/07 [facility] Outpatient Encounter [id number] Diagnos is: ICD-10- CM Z77.29 Contact with and exposur e to other [facility]<br/ > JEANINE,MATH ILDE J 12/27 [facility] Outpatient Encounter [id number] Diagnos is: ICD-10- CM Z77.29 Contact with and exposur e to other [facility]ardo [facility] substan monica<br/ > JEANINE,MATH ILDE J 12/27 [facility] HC PRO PHONE CALL 11-20 MIN [id number] [phone] Diagnos is: ICD-10- CM E11.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
NAIDL,KARI 01/06 [place] [facility] [place] [facility] Outpatient Encounter [id number] 03/10 [facility] IS [facility] HC PRO PHONE CALL 11-20 MIN [id number] Diagnos is: ICD-10- CM E11.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
NAIDL,KARI 03/14 [place] [facility] [place] [facility] OFFICE O/P EST LOW 20-29 MIN [id number] Diagnos is: ICD-10- CM E11.621 Type 2 diabete s mellitu s with foot ulcer<b r/> Rhiannon FISH A 03/22 [place] [facility] [place] [facility] HC PRO PHONE CALL 21-30 MIN [id number] [id number] Diagnos is: ICD-10- CM E11.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
NAIDL,KARI 04/18 [place] [facility] [place] [facility] HC PRO PHONE CALL 21-30 MIN [id number] [id number] Diagnos is: ICD-10- CM E11.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
NAIDL,KARI 07/11 [place] [facility] [place] [facility] MTMS BY PHARM ADDL 15 MIN [phone] Diagnos is: ICD-10- CM E11.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
NAIDL,KARI 08/29 [place] [facility] [place] [facility] MTMS BY PHARM EST 15 MIN [id number] [phone] Diagnos is: ICD-10- CM E11.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
AWKER,SOLEDAD L 10/10 [place] [facility] [place] [facility] Outpatient Encounter [phone] 10/16 [place] [facility] [place] [facility] MTMS BY PHARM EST 15 MIN [id number] [id number] Diagnos is: ICD-10- CM E11.621 Type 2 diabete s mellitu s with foot ulcer<b r/> NAIDL,KARI 11/06 [place] [facility] [place] [facility] MTMS BY PHARM ADDL 15 MIN [id number] Diagnos is: ICD-10- CM E11.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
NAIDL,KARI 11/22 [place] [facility] MTMS BY PHARM ADDL 15 MIN [id number] Diagnos is: ICD-10- CM E11.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
NAIDL,KARI 01/17 [place] [facility] Outpatient Encounter [id number] Diagnos is: ICD-10- CM E11.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
DAWNA MILAGRO 01/18 [facility] QNHP OL DIG ASSMT&MGMT 5-10 [id number] Diagnos is: ICD-10- CM E11.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
MOE CHOWDHURY 01/18 [facility] MTMS BY PHARM EST 15 MIN [id number] Diagnos is: ICD-10- CM E11.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
NAIDL,KARI 02/21 [facility] Social History Combined list of available smoking, tobacco, and other social history from Department of Defense and [facility] Affairs facilities. Social History Type Response Date Comment Sourc e Tobacco smoking status NHIS VA-TOBACCO FORMER USER 08/18/2022 [facility] History of tobacco use [facility] QU[facility] 1 5 YRS OR MORE 08/18/2022 [facility] History of tobacco use VA-TOBACCO FORMER USER 05/03/2021 [facility] History of tobacco use VA-TOBACCO FORMER USER 04/21/2020 [facility] History of tobacco use FORMER TOBACCO US E >1Y <7Y 04/03/2018 [facility] History of tobacco use CURRENT TOBACCO USER 03/09/2007 [facility] Plan of Care List of future care activities from Department [facility] facilities. Additional future care activities may be listed in the Assessment and Plan section. Date/Time Care Activity Care Activity Detail Facili ty 03/27/2024 AMBULATORY - NONE AMBULATORY - NONE [facility] Advance Directives List of completed, amended, or rescinded Advance Directives on record at [facility] facilities. An actual copy of the Directive is not included. Date Advance Directive Provider Source 06/22/2021 ADVANCE DIRECTIVE DISCUSSION ALLYSON GRAF [facility] 06/22/2021 ADVANCE DIRECTIVE [facility]ON [facility]RAF [facility] 03/09/2007 ADVANCE DIRECTIVE SOLEDAD WOLFF [facility]
--- OUTSIDE RECORDS SUMMARY | 2024-02-26 15:25 | XMS_ITS | Clinical Summary ---
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 Name Role Phone Post, Dave Wakefield Primary Care Provider [phone] Medications Medication Sig Dispensed Refills Start Date [...] Comments Blood Pressure 148/85 06/26/2018 5:58 PM MEDIA COORDINATOR Pulse 90 06/26/2018 5:58 PM MEDIA COORDINATOR Temperature 36.6 ??C (97.8 ??F) 06/26/2018 5:58 PM CS T Respiratory Rate 18 06/26/2018 5:58 PM MEDIA COORDINATOR Oxygen Saturation 95% 06/26/2018 7:00 PM MEDIA COORDINATOR Inhaled Oxygen Concentration - - Weight 112 kg (247 lb) 06/26/2018 5:58 PM MEDIA COORDINATOR Height 180.3 cm (5' 11) 06/26/2018 5:58 PM MEDIA COORDINATOR Body Mass Index 34.45 06/26/2018 5:58 PM MEDIA COORDINATOR Plan of Treatment Not on file Care Teams Poly Packer And Heat Sealer Relationship Specialty Start Date End Date Post, Dave Wakefield PCP - General Internal Medicine 06/26/18
--- OUTSIDE RECORDS SUMMARY | 2024-02-26 15:25 | XMS_ITS | Encounter Summary ---
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 Address [address] [place] [address] Care Team Providers Care Environmental Manager Name Role Phone CHARLEE FISH Primary Care [...] MEDIC ARE SUPPL EMENT Jul 31, 2018 [id number] [phone] RENKAEN LUGO ALEX PATIENT [place] MED[place] SUPPLEMEN [place] MEDIC ARE SUPPL EMENT Jul 31, 2018 [id number] [phone] RENBRITTNEY,JU ALEX PATIENT [place] [facility] (WNR) MEDICARE ADVANTAGE [facility] (WNR) Jul 31, 2017 [id number] [phone] RENAUX,JU ALEX PATIENT [place] MEDICARE SUPPLEMEN SCOT MEDIC ARE SUPPL EMENT Jul 31, 2018 [id number] [phone] RENAUX,JU ALEX PATIENT [place] SUPPLEMEN [place]OT MEDIC ARE SUPPL EMENT Jul 31, 2018 [id number] [phone] RENAUX,JU ALEX PATIENT MEDICARE (WNR) MEDICARE (M) PART A May 31, 2011 PART A [id number] [phone] KANE PÉREZ PATIENT MEDICARE (WNR) MEDICARE (M) PART B May 31, 2011 PART B [id number] [phone] KANE PÉREZ PATIENT Selected Encounter This section includes the information on record at [place] for the Encounter. Date/Time Encounter Type Encounter Description Reason Provider Source Feb 22, 2024 04:00 PM MTMS BY PHARM ERICK 15 MIN TELEPHONE PRIMARY CARE ICD-10-CM E11.42 Type 2 diabetes mellitus with diabetic polyneuropathy KARI BRITO [facility] Encounter Template Text not used by [place] Assessments - Encounter Diagnoses This section includes the primary and secondary diagnoses documented for the Encounter. Date/Time Primary/Secondary Diagnosis Diagnosis Name Provider Source Feb 22, 2024 04:00 PM PRIMARY Type 2 diabetes mellitus with diabetic polyneuropathy KARI BRITO [facility] Plan of Treatment: Future Appointments (+ 6 months) and Future Tests (+/- 45 days) The Plan of Treatment section includes future care activities for the patient from all [place] [facility] This section includes future appointments and future orders which are active, pending or scheduled. Future Appointments This section includes appointments that were scheduled to occur 6 months from the date of the Encounter, up to a maximum of 20 appointments. The data comes from all [place] treatment facilities. Appointment Date/Time Appointment Type Appointme nt Facility Name Mar 27, 2024 01:30 PM AMBULATORY - NONE [facility] Social History: Smoking Status (Most current) and Tobacco Use (All prior to encounter date) This section includes the most current, and the historical, smoking and tobacco- related health factors from the [place] facility where the Encounter took place. Current Smoking Status This section includes the most current smoking, or tobacco-related health factor, from the [place] facility where the Encounter took place. Date/Time Current Smoking Status Comment Diego peng Aug 18, 2022 08:30 AM [place]-TOBACCO FORMER USER [facility] Tobacco Use History This section includes a history of the smoking, or tobacco-related health factors, that were collected on or before the date of the Encounter. The data comes from the [place] facility where the Encounter took place. Date/Time Smoking Status/Tobacco Use Comment F acsamir Aug 18, 2022 08:30 AM VA-TOBACCO QUIT 15 YRS OR MORE [facility] May 03, 2021 08:00 AM VA-TOBACCO FORMER USER [facility] May 03, 2021 08:00 AM VA-TOBACCO QUIT 15 YRS OR MORE [facility] Apr 21, 2020 09:00 AM VA-TOBACCO FORMER USER [facility] Apr 21, 2020 09:00 AM [place]-TOBACCO QUIT 15 YRS OR MORE [facility] Apr 03, 2018 03:16 PM FORMER TOBACCO USE >1Y <7Y [facility] Mar 09, 2007 10:41 AM CURRENT TOBACCO USER [facility] Advance Directives: All historical and current Section Date Range: From patient's date of to the date document was created. This section includes ALL of a patient's completed or amended [place] Advance and Rescinded Directives. The entries below indicate that a directive exists for the patient, but an actual copy is not included with this document. The data comes from all [facility]. Date Advance Directives Provider Source Jun 22, 2021 ADVANCE DIRECTIVE DISCUSSION ALLYSON GRAF [facility] Jun 22, 2021 ADVANCE DIRECTIVE ALLYSON GRAF [facility] Mar 09, 2007 ADVANCE DIRECTIVE SOLEDAD WOLFF [facility] Encounter Notes: All associated encounter notes This section contains the clinical notes associated to the Encounter. Date/Time Encounter Note(s) Provider Source Feb 22, 2024 03:45 PM PROPERTY MAINTENANCE SUPERVISOR NOTE: LOCAL TITLE: DIABETES PROPERTY MAINTENANCE SUPERVISOR NOTE STANDARD TITLE: PROPERTY MAINTENANCE SUPERVISOR NOTE DATE OF NOTE: FEB 22, 2024@15:45 ENTRY DATE: FEB 22, 2024@15:45:52 AUTHOR: KARI BRITO COSIGNER: URGENCY: STATUS: COMPLETED BACKGROUND: RODNEYMIGUELINA LUGO is a 78 YO MALE contacted by phone for medication management, mainly for DM. PMH is significant for T2DM with chronic foot infections, GERD, and HLD. SUBJECTIVE: In brief, we spent the majority of our visit starting up his Ashley 3. Offers no concerns about his DM presently. Lifestyle: Tobacco: Denies EtOH: Denies Food and Drink: Breakfast: egg/stoner/1 piece of toast on occasion a bkfst roll or milk/cereal Lunch: varies--sometimes skips or a sandwich or grapes/cheese, beef stew Evening meal: sweet pickle maker -- sandwich or fruit/cheese Snacks: snickers, Allie [...] of 15s. (-) hyperglycemia symptoms SMBG Readings: Checks fastings with readings between 125-160. Reports readings are similar to past visits. ------Previous Readings-------- December f/u ave: 137 October f/u ave: 162 f/u ave: 198 Home BP Readings: Reports 120s/80s 90s at home. Did not have actual readings. Nurse checks 3x weekly. Adherence to medications: Manages independently using a pillbox. Denies any issues with missed doses. OBJECTIVE: ALLERGIES/ADR: VANCOMYCIN (Apr 27, 2018) Outpatient Medications Status ======= 1) ATORVASTATIN CALCIUM 40MG TAB TAKE ONE TABLET BY ACTIVE MOUTH EVERY DAY FOR CHOLESTEROL 2) DICLOFENAC NA 1% TOP GEL APPLY 4 GRAMS TOPICALLY FOUR ACTIVE TIMES A DAY NEEDED FOR JOINT PAIN 3) FINASTERIDE 5MG TAB TAKE ONE TABLET BY MOUTH EVERY ACTIVE DAY FOR PROSTATE 4) INSULIN,GLARGINE-YFGN 100UNIT/ML PEN 3ML INJECT 24 confirmed UNITS UNDER THE SKIN EVERY EVENING FOR DIABETES 5) LIDOCAINE 4% TOP CREAM APPLY MODERATE AMOUNT ACTIVE TOPICALLY THREE TIMES A DAY FOR PAIN 6) MENTHOL/M-SALICYLATE 10-15% TOP CREAM APPLY THIN ACTIVE LAYER TOPICALLY THREE TIMES A DAY FOR MUSCLE PAIN 7) METFORMIN HCL 1000MG TAB TAKE ONE TABLET BY MOUTH confirmed TWICE A DAY FOR DIABETES 8) OMEPRAZOLE 20MG EC CAP TAKE ONE CAPSULE BY MOUTH ACTIVE EVERY DAY ON AN EMPTY STOMACH, AT LEAST 30 MINUTES PRIOR TO A MEAL FOR GERD 9) SEMAGLUTIDE 1MG/0.75ML INJ PEN 3ML INJECT 1MG UNDER confirmed THE SKIN EVERY WEEK FOR DIABETES 10) TAMSULOSIN HCL 0.4MG CAP TAKE ONE CAPSULE [...] 500 MG MOUTH TWICE A DAY ACTIVE 18 Total Medications Previous DM Medications: -Empa-->took for [...] ALB/CREAT RATIO,U 9.70 mg/gCreat 0 - 30 Flat World Educationstyle Ashley 3 (Smart Phone Marli) Glucose Monitoring System Training and Initiation Explained the purpose of use of a ashley 3 monitoring system, prior to insertion: 1. To obtain sensor glucose readings on a continual basis to help detect trends and tracking patterns of glucose control. 2. Knowledge of continuous glucose patterns will assist in treatment regimen for Glucose control. Reviewed the possible risks: 1. Insertion site could become infected, watch for signs and symptoms of infection several times per day. 2. Possible rash from adhesive used to adhere sensor to the skin. verbalized understanding of risks and agreed to proceed. Equipment Education: FREESTYLE ASHLEY 3 SENSOR: Explained insertion procedure and proceeded with insertion: 1. Area in left upper posterior arm was cleaned with alcohol swab. (Discussed use intended area of use is back of arms as device has not been approved for use on other sites.) 2. [employer] Freestyle Ashley Sensor was inserted subcutaneously via insertion device without issue by . 3. Discussed the need to change the sensor every 14 days. If adhesive does not stick and sensor falls off before 14 days, is to simply replace with a new sensor. [place] is instructed to then contact [employer] Customer () Service at to report this to the [place]. FREESTYLE ASHLEY 3 MARLI using SMART PHONE: 1. Marli was downloaded to smart phone from marli store (Software [employer] or [employer]) 2. Account is set up with username and password established. 3. Patient was given the [place] Practice ID: [email or web address] or emailed an invitation through [employer] to share data with [facility]. *Counseled on using same email for all [employer] or [employer] accounts. 4. Tutorial is reviewed at initiation of the marli, educating on the details of sensor placement and use of scanning via the phone. 5. Marli is opened after set up process and New Sensor is started by insertion of sensor, scanning of sensor only at initiation, Warm up period starts and lasts ~ 60 minutes 6. Settings were entered including ALERTS that are customized to veterans situation. HIGH: Off LOW: 70 SIGNAL LOSS: ON 7. able to verbalize back the process of initiating the sensors every 14 days. Additional Information Provided: 1. instructed not to go through MRI or CT scan with device on. 2. Reviewed that this system will provide continual glucose data, with low/high alarm features. Low alarm default is 70mg/dl and high alarm default is 240mg/dl 3. Explained that sensor glucose lags behind blood glucose; there may be a larger discrepancy between the values when BGS are rising or falling quickly. Consider using a blood glucose reading to make treatment decisions. 4. Discussed the importance of still using finger stick monitoring: -to verify hypoglycemia -if sensor is not matching how is feeling -during the 1 hour warm up period. 5. Reviewed that the sensor updates every minute, smartphone needs to be withing 30 feet of sensor for continual glucose data. 6. Sensor stores up to 14 days of data while being worn. 7. Device is waterproof for up to 30 minutes at 3 feet of water. Funeral Home Location Manager is NOT waterproof. 8. Reviewed the use of the trend arrows when analyzing current glucose trends 9. Discussed access the trend graph and information via the history menu. 10. Discussed how to enter in events such as meals/carbohydrates and insulin doses 11. Instructed to avoid high doses of Vit C > 500mg/day as it can make the sensor in accurate 12. Reinforced that back up plan for sensor failures is ALWAYS FINGERSTICK GLUCOSE checks. 13. Reviewed if sensor fails early, falls off sooner than 14 days or you are having technical issues with the marli contact [employer] [place] [employer]INE: [phone] 14. If you are unable to upload your device from home or share your data via your smartphone then you will need to be seen in clinic to upload your device at scheduled intervals as part of your agreement to receive CGM supplies and support through the [place]. or outside sales representative verbalized understanding. ASSESSMENT: #T2DM with a positive c-peptide -Goal A1c <8% (FBG 80-160, PPG <210) per VA/DoD guidelines. Last A1c was up and just slightly below goal. Recently reported SMBG values (fastings) have been acceptable. Vet was able to appropriately apply and start-up his Ashley 3 today. Reasonable to continue the present regimen, pending further review of CGM data. PLAN: Medications: -Continue glargine at 24 units qday -fine to adjust by 2 units every 3 days, targeting fastings in the 100- 150 range. -Continue Semaglutide 1 mg q 7 days -Continue metformin 1 gm BID -Continue other meds, as above Monitoring: - SMBG prn - Continue Ashley 3 CGM -Using an [employer] 8 plus Lifestyle: -Consider PT to help with deconditioning #Disease-Specific Med Rec: Completed today #Labs: up-to-date - Educated vet on indication/risks/benefits of new/changed medication. - Education provided on therapeutic nonpharmacologic management to achieve goals. - Vet advised of recent labs. - verbalized understanding to all plans discussed today. Questions were answered to vet's satisfaction. Time spent: 30 minutes RTC: - 03/27 pharmD phone prefers to avoid [facility]-only has a cellphone /toby/ KARI BRITO PHARM D, BCPS Clinical Pharmacist Practitioner-[facility] Signed: 02/23/2024 08:40 KARI BRITO [facility]
== END 2024-02-26 15:22 | disposition home or self-care (01) ==
LOC: WOUND 15:21
PROVIDERS: Visit Provider Family Medicine
DX: E11.621 Type 2 diabetes mellitus with foot ulcer (principal); L97.512 Non-pressure chronic ulcer of other part of right foot with fat layer exposed; I89.0 Lymphedema, not elsewhere classified; Z79.4 Long term (current) use of insulin; Z79.84 Long term (current) use of oral hypoglycemic drugs
CPT/HCPCS: 11042

== ENCOUNTER 2024-03-05 14:00 | Outpatient (CLI) | payer MEDICARE, BC, SELFPAY ==
--- OUTSIDE RECORDS SUMMARY | 2024-03-05 14:03 | XMS_ITS | Encounter Summary ---
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 [facility] [place] Address [address] [place] [address] Care Team Providers Care Architectural Project Manager Name Role Phone CHARLEE FISH Primary [...] MEDIC ARE SUPPL EMENT Jul 31, 2018 [id number] RENAUX,JU ALEX PATIENT [place] SUPPLEMEN [place]OT MEDIC ARE SUPPL EMENT Jul 31, 2018 [id number] [phone] RENAUX,JU ALEX PATIENT [place] [employer] (WNR) MEDICARE ADVANTAGE [employer] (WNR) Jul 31, 2017 [id number] [phone] RENAUX,JU ALEX PATIENT [place] MEDICARE SUPPLEMEN SCOT MEDIC ARE SUPPL EMENT Jul 31, 2018 [id number] RENAUX,JU ALEX PATIENT [place] SUPPLEMEN [place]OT MEDIC ARE SUPPL EMENT Jul 31, 2018 [id number] [phone] RENAUX,JU ALEX PATIENT MEDICARE (WNR) MEDICARE (M) PART A May 31, 2011 PART A [id number] [phone] KANE PÉREZ PATIENT MEDICARE (WNR) MEDICARE (M) PART B May 31, 2011 PART B [id number] [phone] KANE PÉREZ PATIENT Selected Encounter This section includes the information on record at [place] for the Encounter. Date/Time Encounter Type Encounter Description Reason Provider Source Feb 27, 2024 10:11 AM Outpatient Encounter TELEPHONE/ANCILLARY JOSUÉ CAPPS Encounter Template Text not used by [place] Plan of Treatment: Future Appointments (+ 6 months) and Future Tests (+/- 45 days) The Plan of Treatment section includes future care activities for the patient from all [place] [facility]. This section includes future appointments and future orders which are active, pending or scheduled. Future Appointments This section includes appointments that were scheduled to occur 6 months from the date of the Encounter, up to a maximum of 20 appointments. The data comes from all [place] treatment facilities. Appointment Date/Time Appointment Type Appointme nt Facility Name Mar 27, 2024 01:30 PM AMBULATORY - NONE [facility] Social History: Smoking Status (Most current) and Tobacco Use (All prior to encounter date) This section includes the most current, and the historical, smoking and tobacco- related health factors from the [place] facility where the Encounter took place. Current Smoking Status This section includes the most current smoking, or tobacco-related health factor, from the [place] facility where the Encounter took place. Date/Time Current Smoking Status Comment Diego peng Aug 18, 2022 08:30 AM VA-TOBACCO FORMER USER [facility] Tobacco Use History This section includes a history of the smoking, or tobacco-related health factors, that were collected on or before the date of the Encounter. The data comes from the [place] facility where the Encounter took place. Date/Time Smoking Status/Tobacco Use Comment Darline soriano Aug 18, 2022 08:30 AM VA-TOBACCO QUIT [address] [facility] May 03, 2021 08:00 AM VA-TOBACCO FORMER USER [facility] May 03, 2021 08:00 AM VA-TOBACCO QUIT [address] [facility] Apr 21, 2020 09:00 AM VA-TOBACCO FORMER USER [facility] Apr 21, 2020 09:00 AM [place]-TO[place]AC[place] QU[place] [address] [facility] Apr 03, 2018 03:16 PM FORMER TOBACCO USE >1Y <7Y [facility] Mar 09, 2007 10:41 AM CURRENT TOBACCO USER [facility] Advance Directives: All historical and current Section Date Range: From patient's date of to the date document was created. This section includes ALL of a patient's completed or amended [place] Advance and Rescinded Directives. The entries below indicate that a directive exists for the patient, but an actual copy is not included with this document. The data comes from all [place] facilities. Date Advance Directives Provider Source Jun 22, 2021 ADVANCE DIRECTIVE DISCUSSION ALLYSON GRAF [facility] Jun 22, 2021 ADVANCE DIRECTIVE ALLYSON GRAF [facility] Mar 09, 2007 ADVANCE DIRECTIVE SOLEDAD WOLFF [facility] Encounter Notes: All associated encounter notes This section contains the clinical notes associated to the Encounter. Date/Time Encounter Note(s) Provider Source Feb 27, 2024 10:11 AM INTEGRATIVE HEALTH NOTE: LOCAL TITLE: WHOLE HEALTH ESCREENING NOTE STANDARD TITLE: [facility]TEGRATIVE HEALTH NOTE DATE OF NOTE: FEB 27, 2024@10:11:52 ENTRY DATE: FEB 28, 2024@13:49:33 AUTHOR: JOSUÉ CAPPS EXP COSIGNER: URGENCY: STATUS: COMPLETED Whole Health Questions Whole Health Why is addressing your overall health important to you?: To live pain free and to be fully functional What do you want your health for (why do you want to be healthy)?: To enjoy life Whole Health assessment has been completed and reviewed by the Primary Care Team /toby/ JAYDE CARDOSO MA, RN Signed: 02/28/2024 16:[address] [facility]
--- OUTSIDE RECORDS SUMMARY | 2024-03-05 14:03 | XMS_ITS | Clinical Summary ---
Author Organization [place] Address [address] [place] [address] Care Team Providers Care Pharmacy Technician Infusion Name Role Phone Post, Dave Wakefield Primary Care Provider [phone] Medications Medication Sig Dispensed Refills Start Date [...] Comments Blood Pressure 148/85 06/26/2018 5:58 PM HIGH SCHOOL SOCIAL SCIENCE TEACHER Pulse 90 06/26/2018 5:58 PM HIGH SCHOOL SOCIAL SCIENCE TEACHER Temperature 36.6 ??C (97.8 ??F) 06/26/2018 5:58 PM CS T Respiratory Rate 18 06/26/2018 5:58 PM HIGH SCHOOL SOCIAL SCIENCE TEACHER Oxygen Saturation 95% 06/26/2018 7:00 PM HIGH SCHOOL SOCIAL SCIENCE TEACHER Inhaled Oxygen Concentration - - Weight 112 kg (247 lb) 06/26/2018 5:58 PM HIGH SCHOOL SOCIAL SCIENCE TEACHER Height 180.3 cm (5' 11) 06/26/2018 5:58 PM HIGH SCHOOL SOCIAL SCIENCE TEACHER Body Mass Index 34.45 06/26/2018 5:58 PM HIGH SCHOOL SOCIAL SCIENCE TEACHER Plan of Treatment Not on file Care Teams Pharmacy Technician Infusion Relationship Specialty Start Date End Date Post, Dave Wakefield PCP - General Internal Medicine 06/26/18
--- OUTSIDE RECORDS SUMMARY | 2024-03-05 14:03 | XMS_ITS | Clinical Summary ---
Author Organization [facility] Address [place], [place] [address] Care Team Providers Care Plow Holder Name Role Phone Post, Dave Velazquez MD Primary Care Provider Moshe Enciso MD Unavailable [phone] Arie Justin MD Unavailable [phone] [facility] Unavailable [phone] Murali Hoover DPM Unavailable [phone] Allergies No known active allergies Medications [...] to Care Guide Pamella Brennan Phone number [phone]. Alcohol abuse 06/02/2010 03/26/2019 Overview: Sober since 2001. Great success with AA. 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 10/06/2023 Pyogenic arthritis of left shoulder region 06/17/2022 Immunizations Name Administration Dates Next Due Influenza [...] bypass age 65 Cancer Mother Melanoma; Ranjan grahamly living age 87 Good Health Sister 1 [...] 36.7 ??C (98 ??F) 06/29/2022 8:43 AM SPANISHER Respiratory Rate 18 06/29/2022 8:43 AM SPANISHER Oxygen Saturation 96% 07/21/2023 1:34 PM SPANISHER Inhaled Oxygen Concentration - - Weight 107 kg (236 lb) 11/03/2023 11:13 AM CDT w ith shoes Height 180.3 cm (5' 10.98) 07/21/2023 1:[address] Body Mass Index 32.93 07/21/2023 1:34 PM SPANISHER Plan of Treatment Health Maintenance Due Date Last Done Comments Hepatitis C screening for ag e 18-79 1964 Pneumococcal series for age 65+ (3 of 3 - PPSV23 or PCV20) 09/11/2016 09/11/2015, 11/03/2010, 04/19/2007 Depression screening for age 12+ 03/26/2020 08/27/20 19, 03/22/2018 Medicare Wellness for age 65+ [...] 07/16/2020, 04/21/2020 Medical Devices Implanted Type Area Banana Expert Device Identifier Shelf Expiration Date Model / Serial / Lot [id number] - [id number] Implanted:Qty: 1 on 09/20/2021 at Right: Foot [employer] AR-8725-4 4H / / Description:COMPRESSION FT S CREWS CANNULATED, 2.5 MICRO 44MM LOAD [id number] [facility]-1530p - [id number] Implanted:Qty: 1 on 09/20/2021 at Right: Foot [employer] 03/30/2025 AR-1530P- CP / / [id number] Description:FOREFOOT INTERNA L BRACE IMPLANT SYSTEM, PEEK Screw [id number] Bio Compositetenodesis Disp Senior Telecommunications Consultant Pk - [id number] Implanted:Qty: 1 on 09/20/2021 at Right: Foot [employer] 08/30/2022 AR-1547CD S / / [id number] Ancr Sut 1.3mm Dx Fibertak Suturetape 2 Ndl 26.2mm /2 [facility] - [id number] Implanted:Qty: 1 on 09/20/2021 at Right: Foot [employer] 06/29/2026 AR-8990ST / / [id number] Explanted Type Area Banana Expert Device Identifier Shelf Expiration Date Model / Serial / Lot Wire Kirs .[id number] Smooth6/Pk Depuy/Héctor - [id number] Explanted:Qty: 1 on 09/20/2021 at Right: Foot [employer] / / Description:LOAD 4 8 [id number] [facility] [id number] - [id number] Explanted:Qty: 1 on 09/20/2021 at Right: Foot [employer] AR-8737-40 / / Description:2.5 MICRO COMPRE SSION FT DRILLS AND DISPOSABLES, GUIDEWIRE W TROCAR TIP, THREADED, 0.34 IN (.86MM) LOAD 4 7 [id number] Procedures Procedure Name Priority Date/Time Associated Diagnosis Comments CT CHEST PE STUDY Routine 05/10/2022 7:5 0 PM CDT OCCULT BLOOD IFOBT STOOL Routine 07/03/2013 7:00 PM SPANISHER Screening for colon cancer from Last 3 [...] For Patients: ??As a result of the Century Cures Act, medical imaging exams and procedure [...] Occult Blood Stool (IFOBT) (07/03/2013 7:00 PM SPANISHER) STOOL BLOOD ,IFOBT Negative Negative, Invalid 07/04/2013 3:03 PM SPANISHER [facility] [place] Stool specimen (specimen) STOOL SPECIMEN / Unknown Non-Blood / Unknown 07/03/2013 7:00 PM SPANISHER 07/04/2013 2:39 PM SPANISHER Dave Garrett MD LABORATORY [facility] [address] [place] [address] from Last 3 Months or Most Recently Relevant to Health Maintenance Advance Directives Documents on File Type Date Recorded Patient Garment Alteration Examiner Expl anation Healthcare Directive 05/21/2021 3:50 PM [...] Code Status Discussion: Reviewed Preferences Care Teams Plow Holder Relationship Specialty Start Date End Date Post, Dave Velazquez MD PCP - General 06/02/10 Moshe Enciso MD [address] [place], [place] [id number] Endocrinology Endocrinology 01/04/18 [place] [address] [place], [place] [address] Surgery - Ophthalmology 03/22/18 [facility] [place] [address] [place], [place] [address] 06/08/21 Murali Hoover DPM [address] [address] Surgery - Podiatric 01/03/23
--- OUTSIDE RECORDS SUMMARY | 2024-03-05 14:03 | XMS_ITS | Referral Summary ---
Author Organization [facility] Address [address] [place] [id number] Care Team Providers Care Irrigationist Name Role Phone Post, Dave Wakefield Primary Care Provider [phone] Medications Medication Sig Dispensed Refills Start Date [...] Comments Blood Pressure 148/85 06/26/2018 5:58 PM SENIOR SYSTEMS ANALYST Pulse 90 06/26/2018 5:58 PM SENIOR SYSTEMS ANALYST Temperature 36.6 ??C (97.8 ??F) 06/26/2018 5:58 PM CS T Respiratory Rate 18 06/26/2018 5:58 PM SENIOR SYSTEMS ANALYST Oxygen Saturation 95% 06/26/2018 7:00 PM SENIOR SYSTEMS ANALYST Inhaled Oxygen Concentration - - Weight 112 kg (247 lb) 06/26/2018 5:58 PM SENIOR SYSTEMS ANALYST Height 180.3 cm (5' 11) 06/26/2018 5:58 PM SENIOR SYSTEMS ANALYST Body Mass Index 34.45 06/26/2018 5:58 PM SENIOR SYSTEMS ANALYST Plan of Treatment Not on file Care Teams Irrigationist Relationship Specialty Start Date End Date Post, Dave Wakefield PCP - General Internal Medicine 06/26/18
--- OUTSIDE RECORDS SUMMARY | 2024-03-05 14:03 | XMS_ITS | Continuity of Care Document ---
Author Name [facility] Organization [facility] Care Team Providers Care Copier And Printer Field Technician Name Role Phone [facility] Unavailable Unavailable Problems Combined list of problems from Department of Defense and Veterans Affairs facilities. It does not include entries that were removed or entered in error. Problem Status Onset Date Problem Type Date of Resolution Comments Source Exposure to potentially hazardous substance ([facility] [id number]) Active 10/05/19 24 Condition Oct 05, 2023 Entered By: VIJI VIVAS [facility] Documentation Initiative [facility] Depressive Disorder NOS * (ICD-9-CM 311./300.4) Active Condition [facility] Diabetes mellitus (SNOMED CT 90273432) Active Condition [facility] Diabetic neuropathy Active Condition [facility] Foot Pain (ICD-9-CM 719.47) Active Condition Aug 26 10 Entered By: MALINA WORLEY Comment: left 5th metatarsal fracture [facility] History of amputation of lesser toe Active Condition [facility] Hyperlipidemia (SNOMED CT 02761534) Active Condition [facility] Hyperuricemia Active Condition [place] [facility] Osteopenia Active Condition [facility] Other Iatrogenic Hypotension Active Condition [facility] Personal History of Alcoholism (ICD-9-CM V11.3) Active Condition [facility] Tobacco user (SNOMED CT 132843031) Active Condition [facility] Diagnosis: ICD-10-CM E11.42 Type 2 diabetes mellitus with diabetic polyneuropathy Active Diagnosis [facility] Diana [facility] Diagnosis: ICD-10-CM E11.621 Type 2 diabetes mellitus with foot ulcer Active Diagnosis [facility] Diagnosis: ICD-10-CM Z77.29 Contact with and exposure to other hazardous substances Active Diagnosis [facility] Medications Combined list of outpatient [...] ed by: CHARLEE FISH Document ed at: [facility] ORAL ACTIVE CHARLEE FISH 2022 [facility] ASPIRIN 81MG TAB,EC ASPIRIN 81MG TAB,EC Non-VA TAKE ONE TABLET BY MOUTH EVERY DAY Mar 13, 2007 Non-[place] Document ed by: MARY CHOUDHARY Document ed at: [facility] ORAL ACTIVE JEFF CHOUDHARY A 2006 [facility] ATORVASTATI N CA 40MG TAB ATORVAST ATIN CA 40MG TAB Active TAKE ONE TABLET BY MOUTH EVERY DAY FOR CHOLESTE ROL Apr 11, 2023 90 Apr 11, 2024 [id number] December 17, 2023 CHARLEE FISH [facility] ORAL ACTIVE 04/11/2024 [id number] 4 CHARLEE FISH 2022 90 [facility] ATORVASTATI N CA 40MG TAB ATORVAST ATIN CA 40MG TAB Disconti nued TAKE ONE TABLET BY MOUTH EVERY DAY FOR CHOLESTE ROL Jul 14, 2022 90 Jul 15, 2023 [id number] Mar 31, 2023 NAIDL,TO DD [facility] ORAL DISCONT INUED 07/15/2023 [id number] NAIDL,TOD D 2022 90 [facility] CHOLECALCIF QUINTIN TAB CHOLECAL CIFEROL TAB Non-VA TAKE 5000 UNITS BY MOUTH EVERY DAY Aug 21, 2022 Non-VA Document ed by: CHARLEE FISH Document ed at: [facility] ORAL ACTIVE CHARLEE FISH 2022 [facility] COENZYME Q10 CAP/TAB COENZYME Q10 CAP/TAB Non-VA TAKE 1 CAPSULE BY MOUTH EVERY DAY Aug 21, 2022 Non-VA Document ed by: CHARLEE FISH Document ed at: [facility] ORAL ACTIVE CHARLEE FISH 2022 [facility] CYANOCOBALA MIN 1000MCG TAB CYANOCOB ALAMIN 1000MCG TAB Non-VA TAKE ONE TABLET BY MOUTH EVERY DAY Mar 09, 2022 Non-VA Document ed by: MAUREEN BRITO DD Document ed at: [facility] ORAL ACTIVE DEAN BRITO 2021 [facility] DICLOFENAC NA 1% GEL,TOP DICLOFEN AC NA 1% GEL,TOP Active APPLY 4 GRAMS TOPICALL Y FOUR TIMES A DAY NEEDED FOR JOINT PAIN JOINT PAIN Mar 22, 2023 100 Mar 22, 2024 [id number] Mar 22, 2023 FISH CHARLEE Bowers [facility] TOPICA L ACTIVE 03/22/2024 [id number] ABE CHARLEE A 2022 100 [facility] FINASTERIDE 5MG TAB FINASTER RACHEL 5MG TAB Active TAKE ONE TABLET BY MOUTH EVERY DAY FOR PROSTATE FOR PROSTATE Apr 11, 2023 90 Apr 11, 2024 [id number] Jan 08, 2024 CHARLEE FISH Robinson [facility] ORAL ACTIVE 04/11/2024 [id number] CHARLEE FISH 2022 90 [facility] FINASTERIDE 5MG TAB FINASTER RACHEL 5MG TAB Disconti nued TAKE ONE TABLET BY MOUTH EVERY DAY FOR PROSTATE FOR PROSTATE Jul 12, 2022 90 Jul 13, 2023 [id number] Mar 31, 2023 FISHCHARLEE Bowers [facility] ORAL DISCONT INUED 07/13/2023 [id number] ABE CHARLEE A 2021 90 [facility] FISH OIL 1000MG (500MG DHA/EPA) CAP,ORAL FISH OIL 1000MG (500MG DHA/EPA) CAP,ORAL Non-VA TAKE 1 CAPSULE BY MOUTH TWICE A DAY Mar 13, 2007 Non-VA Document ed by: MARY CHOUDHARY A Document ed at: [facility] ORAL ACTIVE JEFF CHOUDHARY 2006 [facility] INSULIN,GLA RGINE-YFGN 100UNIT/ML INJ PEN,3ML INSULIN, GLARGINE -YFGN 100UNIT/ ML INJ PEN,3ML Active INJECT 24 UNITS UNDER THE SKIN EVERY EVENING FOR DIABETES FOR DIABETES Aug 29, 2023 5 Aug 29, 2024 [id number] Jan 07, 2024 NAIDL,TO DD [facility] SUBCUT ANEOUS ACTIVE 08/29/2024 [id number] NAIDL,TOD D 2023 5 [facility] INSULIN,GLA RGINE-YFGN 100UNIT/ML INJ PEN,3ML INSULIN, GLARGINE -YFGN 100UNIT/ ML INJ PEN,3ML Disconti nued INJECT 22 UNITS UNDER THE SKIN AT BEDTIME FOR DIABETES FOR DIABETES Jan 06, 2023 5 Jan 07, 2024 [id number] Jul 25, 2023 NAIDL,TO DD [facility] SUBCUT ANEOUS DISCONT INUED (EDIT) 01/07/2024 [id number] NAIDL,TOD D 2022 5 [facility] INSULIN,GLA RGINE-YFGN 100UNIT/ML INJ PEN,3ML INSULIN, GLARGINE -YFGN 100UNIT/ ML INJ PEN,3ML Disconti nued INJECT 20 UNITS UNDER THE SKIN AT BEDTIME FOR DIABETES FOR DIABETES December 07, 2022 5 December 08, 2023 [id number] Jan 06, 2023 NAIDL,TO DD [facility] SUBCUT ANEOUS DISCONT INUED (EDIT) 12/08/2023 [id number] NAIDL,TOD D 2022 5 [facility] LIDOCAINE 4% CREAM,TOP LIDOCAIN E 4% CREAM,TO P Active APPLY MODERATE AMOUNT TOPICALL Y THREE TIMES A DAY FOR PAIN PAIN Mar 22, 2023 30 Mar 22, 2024 [id number] Mar 22, 2023 CHARLEE FISH [facility] TOPICA L ACTIVE 03/22/2024 [id number] CHRALEE FISH 2022 30 [facility] MAGNESIUM OXIDE 400MG TAB MAGNESIU M OXIDE 400MG TAB Non-VA TAKE ONE TABLET BY MOUTH EVERY DAY Aug 21, 2022 Non-VA Document ed by: CHARLEE FISH Document ed at: [facility] ORAL ACTIVE CHARLEE FISH 2022 [facility] MENTHOL/MET HYL SALICYLATE (10-15%) LOW CONC. CREAM,TOP MENTHOL/ METHYL SALICYLA TE (10-15%) LOW CONC. CREAM,TO P Active APPLY THIN LAYER TOPICALL Y THREE TIMES A DAY FOR MUSCLE PAIN MUSLCE PAIN Mar 22, 2023 90 Mar 22, 2024 [id number] Mar 22, 2023 CHARLEE FISH [facility] TOPICA L ACTIVE 03/22/2024 [id number] CHARLEE FISH 2022 90 [facility] METFORMIN HCL 1000MG TAB METFORMI N HCL 1000MG TAB Active TAKE ONE TABLET BY MOUTH TWICE A DAY FOR DIABETES Apr 11, 2023 180 Apr 11, 2024 [id number] Feb 19, 2024 CHARLEE FISH [facility] ORAL ACTIVE 04/11/2024 [id number] CHARLEE FISH 2022 180 [facility] METFORMIN HCL 1000MG TAB METFORMI N HCL 1000MG TAB Disconti nued TAKE ONE TABLET BY MOUTH TWICE A DAY FOR DIABETES Jul 14, 2022 180 Jul 15, 2023 [id number] Apr 06, 2023 NAIDL,TO DD [facility] ORAL DISCONT INUED 07/15/2023 [id number] NAIDL,TOD D 2022 180 [facility] OMEPRAZOLE 20MG CAP,EC OMEPRAZO LE 20MG CAP,EC Active TAKE ONE CAPSULE BY MOUTH EVERY DAY ON AN EMPTY STOMACH, AT LEAST 30 MINUTES PRIOR TO A MEAL FOR GERD GERD Mar 22, 2023 90 Mar 22, 2024 [id number] December 22, 2023 CHARLEE FISH [facility] ORAL ACTIVE 03/22/2024 [id number] CHARLEE FISH 2022 90 [facility] SEMAGLUTIDE 1MG/0.75ML INJ,SOLN,PE N,3ML SEMAGLUT RACHEL 1MG/0.75 ML INJ,SOLN ,PEN,3ML Active INJECT 1MG UNDER THE SKIN EVERY WEEK FOR DIABETES FOR DIABETES Nov 07, 2023 1 Nov 07, 2024 [id number] Feb 23, 2024 NAIDL,TO DD [facility] SUBCUT ANEOUS ACTIVE 11/07/2024 [id number] NAIDL,TOD D 2023 1 [facility] SEMAGLUTIDE 1MG/0.75ML INJ,SOLN,PE N,3ML SEMAGLUT RACHEL 1MG/0.75 ML INJ,SOLN ,PEN,3ML Disconti nued INJECT 1MG UNDER THE SKIN EVERY WEEK FOR DIABETES FOR DIABETES Nov 07, 2022 1 Nov 08, 2023 [id number] Nov 06, 2023 NAIDL,TO DD [facility] SUBCUT ANEOUS DISCONT INUED 11/08/2023 [id number] NAIDL,TOD D 2022 1 [facility] TAMSULOSIN HCL 0.4MG CAP TAMSULOS IN HCL 0.4MG CAP Active TAKE ONE CAPSULE BY MOUTH EVERY EVENING PROSTATE Apr 13, 2023 30 Apr 13, 2024 [id number] Feb 19, 2024 CHARLEE FISH [facility] ORAL ACTIVE 04/13/2024 [id number] CHARLEE FISH 2022 30 [facility] TAMSULOSIN HCL 0.4MG CAP TAMSULOS IN HCL 0.4MG CAP Disconti nued TAKE ONE CAPSULE BY MOUTH EVERY EVENING PROSTATE Apr 11, 2023 90 Apr 11, 2024 [id number] Apr 21, 2023 CHARLEE FISH [facility] ORAL DISCONT INUED 04/11/2024 [id number] CHARLEE FISH 2022 90 [facility] TAMSULOSIN HCL 0.4MG CAP TAMSULOS IN HCL 0.4MG CAP Disconti nued TAKE ONE CAPSULE BY MOUTH EVERY EVENING PROSTATE Aug 03, 2022 90 Aug 04, 2023 [id number] Jan 21, 2023 CHARLEE FISH [facility] ORAL DISCONT INUED 08/04/2023 [id number] CHARLEE FISH 2022 90 [facility] TURMERIC CAP/TAB TURMERIC CAP/TAB Non-VA TAKE 500 MG BY MOUTH TWICE A DAY Apr 22, 2019 Non-VA Document ed by: MATTY WOO Document ed at: [facility] ORAL ACTIVE MATTY POWERS 2018 [facility] Allergies, Adverse Reactions, Alerts Combined list of allergies from Department of Defense and Veterans Affairs facilities. It does not include entries that were removed or entered in error. Substance Category Reaction Severity Reaction type Status Date Reported Comments Source VANCOMYCIN Propensity to adverse reactions to drug (finding) [place] active 8 [facility] Immunizations Combined list of available immunizations from the Department of [facility] and Veterans Affairs facilities. Immunization Series Date Given Administered By Site Reaction Lot Number CVX Code Drug Nut Threader Status Comments Source ZOSTER RECOMBINANT 2 2019 [...] [facility] [place] TDAP 2015 115 complet ed [facility] TA PNEUMOCOCCAL CONJUGATE PCV 13 2015 133 [...] TOXOID, UNSPECIFIED FORMULATION 2006 NONE 112 complet [facility] Results Combined list of recent chemistry, [...] Aug 21, 2022 03:48 PM Reporting Lab: [facility] [address] Performing Lab: [facility] [address] [facility] BASIC METABOLIC PANEL+MG CREATININE [MASS/VOLUM E] IN SERUM OR PLASMA 1.2 mg/dL 0.7 - 1.2 03/22 Specimen Type: PLASMA No comment entered. Ordering Provider: ME LEEROY FISH Report Released Date/Time: Aug 21, 2022 03:48 PM Reporting Lab: [facility] [address] Performing Lab: [facility] [address] [place] [facility] BASIC METABOLIC PANEL+MG UREA NITROGEN [MASS/VOLUM E] IN SERUM OR PLASMA 15 mg/dL 8 - 03/22 Specimen Type: PLASMA No comment entered. Ordering Provider: ME LEEROY FISH Report Released Date/Time: Aug 21, 2022 03:48 PM Reporting Lab: [facility] [address] Performing Lab: [facility] [address] [place] [facility] BASIC METABOLIC PANEL+MG GLUCOSE [MASS/VOLUM E] IN SERUM OR PLASMA 145 mg/dL 70 - 100 03/22 H Specimen Type: PLASMA No comment entered. Ordering Provider: ME LEEROY FISH Report Released Date/Time: Aug 21, 2022 03:48 PM Reporting Lab: [facility] [address] Performing Lab: [facility] [address] [place] [facility] BASIC METABOLIC PANEL+MG SODIUM [MOLES/VOLU ME] IN SERUM OR PLASMA 138 mmol/L 136 - 145 03/22 Specimen Type: PLASMA No comment entered. Ordering Provider: ME LEEROY FISH Report Released Date/Time: Aug 21, 2022 03:48 PM Reporting Lab: [facility] [address] Performing Lab: [facility] [address] [place] [facility] BASIC METABOLIC PANEL+MG POTASSIUM [MOLES/VOLU ME] IN SERUM OR PLASMA 4.5 mmol/L 3.5 - 5.1 03/22 Specimen Type: PLASMA No comment entered. Ordering Provider: ME LEEROY FISH Report Released Date/Time: Aug 21, 2022 03:48 PM Reporting Lab: [facility] [address] Performing Lab: [facility] [address] [place] [facility] BASIC METABOLIC PANEL+MG CHLORIDE [MOLES/VOLU ME] IN SERUM OR PLASMA 101 mmol/L 98 - 107 03/22 Specimen Type: PLASMA No comment entered. Ordering Provider: ME LEEROY FISH Report Released Date/Time: Aug 21, 2022 03:48 PM Reporting Lab: [facility] [address] Performing Lab: [facility] [address] [place] [facility] BASIC METABOLIC PANEL+MG CARBON DIOXIDE, TOTAL [MOLES/VOLU ME] IN SERUM OR PLASMA 27 mmol/L 22 - 29 03/22 Specimen Type: PLASMA No comment entered. Ordering Provider: ME LEEROY FISH Report Released Date/Time: Aug 21, 2022 03:48 PM Reporting Lab: [facility] [address] Performing Lab: [facility] [address] [place] [facility] BASIC METABOLIC PANEL+MG CALCIUM [MASS/VOLUM E] IN SERUM OR PLASMA 10.0 mg/dL 8.4 - 10.2 03/22 Specimen Type: PLASMA No comment entered. Ordering Provider: ME LEEROY FISH Report Released Date/Time: Aug 21, 2022 03:48 PM Reporting Lab: [facility] [address] Performing Lab: [facility] [address] [place] [facility] BASIC METABOLIC PANEL+MG MAGNESIUM [MASS/VOLUM E] IN SERUM OR PLASMA 1.9 mg/dL 1.6 - 2.6 03/22 Specimen Type: PLASMA No comment entered. Ordering Provider: ME LEEROY FISH Report Released Date/Time: Aug 21, 2022 03:48 PM Reporting Lab: [facility] [address] Performing Lab: [facility] [address] [place] [facility] BASIC METABOLIC PANEL+MG ANION GAP IN SERUM OR PLASMA 10 mmol/L 5 - 15 03/22 Specimen Type: PLASMA No comment entered. Ordering Provider: ME LEEROY FISH Report Released Date/Time: Aug 21, 2022 03:48 PM Reporting Lab: [facility] [address] Performing Lab: [facility] [address] [place] [facility] BASIC METABOLIC PANEL+MG GLOMERULAR FILTRATION RATE/1.73 SQ M.PREDICTED [VOLUME RATE/AREA] IN SERUM, PLASMA OR BLOOD BY CREATININE- BASED FORMULA (CKD-EPI 2020) 63 60 03/22 Specimen Type: PLASMA No comment entered. Ordering Provider: ME LEEROY FISH Report Released Date/Time: Aug 21, 2022 03:48 PM Reporting Lab: [facility] [address] Performing Lab: [facility] [address] [place] [facility] HEMOGLOBI N A1C HEMOGLOBIN A1C/HEMOGLO [...] December 22, 2021 03:46 PM Reporting Lab: [address] Performing Lab: [facility] [address] [place] [facility] BASIC METABOLIC PANEL+MG CREATININE [MASS/VOLUM E] IN SERUM OR PLASMA 0.9 mg/dL 0.7 - 1.2 08/18 Specimen Type: PLASMA No comment entered. Ordering Provider: ME LEEROY FISH Report Released Date/Time: December 22, 2021 03:46 PM Reporting Lab: [place] [address] Performing Lab: [place] [phone] [place] [facility] BASIC METABOLIC PANEL+MG UREA NITROGEN [MASS/VOLUM E] IN SERUM OR PLASMA 12 mg/dL 8 - 26 08/18 Specimen Type: PLASMA No comment entered. Ordering Provider: ME LEEROY FISH Report Released Date/Time: December 22, 2021 03:46 PM Reporting Lab: [facility] [address] Performing Lab: [facility] [address] [place] [facility] BASIC METABOLIC PANEL+MG GLUCOSE [MASS/VOLUM E] IN SERUM OR PLASMA 184 mg/dL 70 - 100 08/18 H Specimen Type: PLASMA No comment entered. Ordering Provider: ME LEEROY FISH Report Released Date/Time: December 22, 2021 03:46 PM Reporting Lab: [facility] [address] Performing Lab: [facility] [address] [place] [facility] BASIC METABOLIC PANEL+MG SODIUM [MOLES/VOLU ME] IN SERUM OR PLASMA 137 mmol/L 136 - 145 08/18 Specimen Type: PLASMA No comment entered. Ordering Provider: FISH,ME LODY A Report Released Date/Time: December 22, 2021 03:46 PM Reporting Lab: [facility] [address] Performing Lab: [facility] [address] [place] [facility] BASIC METABOLIC PANEL+MG POTASSIUM [MOLES/VOLU ME] IN SERUM OR PLASMA 3.9 mmol/L 3.5 - 5.1 08/18 Specimen Type: PLASMA No comment entered. Ordering Provider: ME LEEROY FISH Report Released Date/Time: December 22, 2021 03:46 PM Reporting Lab: [facility] [address] Performing Lab: [facility] [address] [place] [facility] BASIC METABOLIC PANEL+MG CHLORIDE [MOLES/VOLU ME] IN SERUM OR PLASMA 102 mmol/L 98 - 107 08/18 Specimen Type: PLASMA No comment entered. Ordering Provider: ME LEEROY FISH Report Released Date/Time: December 22, 2021 03:46 PM Reporting Lab: [facility] [address] Performing Lab: [facility] [address] [place] [facility] BASIC METABOLIC PANEL+MG CARBON DIOXIDE, TOTAL [MOLES/VOLU ME] IN SERUM OR PLASMA 26 mmol/L 22 - 29 08/18 Specimen Type: PLASMA No comment entered. Ordering Provider: ME LEEROY FISH Report Released Date/Time: December 22, 2021 03:46 PM Reporting Lab: [facility] [address] Performing Lab: [facility] [address] [place] [facility] BASIC METABOLIC PANEL+MG CALCIUM [MASS/VOLUM E] IN SERUM OR PLASMA 9.4 mg/dL 8.4 - 10.2 08/18 Specimen Type: PLASMA No comment entered. Ordering Provider: ME LEEROY FISH Report Released Date/Time: December 22, 2021 03:46 PM Reporting Lab: [facility] [address] Performing Lab: [facility] [address] [place] [facility] BASIC METABOLIC PANEL+MG MAGNESIUM [MASS/VOLUM E] IN SERUM OR PLASMA 1.6 mg/dL 1.6 - 2.6 08/18 Specimen Type: PLASMA No comment entered. Ordering Provider: ME LEEROY FISH Report Released Date/Time: December 22, 2021 03:46 PM Reporting Lab: [facility] [address] Performing Lab: [facility] [address] [place] [facility] BASIC METABOLIC PANEL+MG ANION GAP IN SERUM OR PLASMA 9 mmol/L 5 - 15 08/18 Specimen Type: PLASMA No comment entered. Ordering Provider: ME LEEROY FISH Report Released Date/Time: December 22, 2021 03:46 PM Reporting Lab: [facility] [address] Performing Lab: [facility] [address] [place] [facility] BASIC METABOLIC PANEL+MG GLOMERULAR FILTRATION RATE/1.73 SQ M.PREDICTED [VOLUME RATE/AREA] IN SERUM, PLASMA OR BLOOD BY CREATININE- BASED FORMULA (CKD-EPI) 89 60 08/18 Specimen Type: PLASMA No comment entered. Ordering Provider: ME LEEROY FISH Report Released Date/Time: December 22, 2021 03:46 PM Reporting Lab: [facility] [address] Performing Lab: [facility] [address] [place] [facility] Vital Signs Combined list of [...] ADM Date DC Date Status Disposition Source [place] [facility] HC PRO PHONE CALL 11-20 MIN [id number] [id number] Diagnos is: ICD-10- CM E11.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
NAKARI DSOUZA 09/29 [facility] [place] [facility] PRO PHONE CALL 21-30 MIN [id number] Diagnos is: ICD-10- CM E11.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
NAIDL,KARI 11/07 [facility] HC PRO PHONE CALL 11-20 MIN [id number] Diagnos is: ICD-10- CM E11.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
NAIDL,KARI 12/07 [facility] Outpatient Encounter [id number] Diagnos is: ICD-10- CM Z77.29 Contact with and exposur e to other [facility]<br/ > JEANINE,JESSICA [facility] 12/27 [facility] Outpatient Encounter [id number] Diagnos is: ICD-10- CM Z77.29 Contact with and exposur e to other [facility]ardo [facility] substan [facility]<br/ > JEANINE,MATH ILDE J 12/27 [facility] HC PRO PHONE CALL 11-20 MIN [id number] Diagnos is: ICD-10- CM E11.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
NAIDL,KARI 01/06 [facility] Outpatient Encounter [id number] 03/10 [facility] HC PRO PHONE CALL 11-20 MIN [id number] Diagnos is: ICD-10- CM E11.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
NAIDL,KARI 03/14 [facility] OFFICE O/P EST LOW 20-29 MIN [id number] Diagnos is: ICD-10- CM E11.621 Type 2 diabete s mellitu s with foot ulcer<b r/> Rhiannon FISH MAEVE Robinson 03/22 [place] [facility] [place] [facility] HC PRO PHONE CALL 21-30 MIN [id number] Diagnos is: ICD-10- CM E11.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
NAIDL,KARI 04/18 [place] [facility] [place] [facility] HC PRO PHONE CALL 21-30 MIN [id number] Diagnos is: ICD-10- CM E11.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
NAIDL,KARI 07/11 [place] [facility] [place] [facility] MTMS BY PHARM ADDL 15 MIN [id number] Diagnos is: ICD-10- CM E11.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
NAIDL,KARI 08/29 [place] [facility] [place] [facility] MTMS BY PHARM EST 15 MIN [id number] Diagnos is: ICD-10- CM E11.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
AWSOLEDAD BUCKLEY 10/10 [place] [facility] [place] [facility] Outpatient Encounter [id number] 10/16 [place] [facility] [place] [facility] MTMS BY PHARM EST 15 MIN [id number] Diagnos is: ICD-10- CM E11.621 Type 2 diabete s mellitu s with foot ulcer<b r/> NAIDL,KARI 11/06 [place] [facility] [place] [facility] MTMS BY PHARM ADDL 15 MIN [id number] Diagnos is: ICD-10- CM E11.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
NAIDL,KARI 11/22 [place] [facility] [place] [facility] MTMS BY PHARM ADDL 15 MIN [id number] Diagnos is: ICD-10- CM E11.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
NAIDL,KARI 01/17 [place] [facility] [place] [facility] Outpatient Encounter [id number] Diagnos is: ICD-10- CM E11.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
[facility]AG[facility] TONEY [facility] QNHP OL DIG ASSMT&MGMT 5-10 [phone] Diagnos is: ICD-10- CM E11.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
MOE CHOWDHURY 01/18 [facility] MTMS BY PHARM EST 15 MIN [phone] Diagnos is: ICD-10- CM E11.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
NAIDL,KARI 02/21 [facility] Outpatient Encounter [phone] RORY CAPPS 02/26 [facility] Social History Combined list of available smoking, tobacco, and other social history from [facility] of Defense and [facility] facilities. Social History Type Response Date Comment Sourc e Tobacco smoking status NCIS [facility]-TOBACCO QUIT 15 YRS OR MORE 08/18/2022 [facility] History of tobacco use [place] FORMER USER 08/18/2022 [facility] History of tobacco use VA-TOBACCO FORMER USER 05/03/2021 [facility] History of tobacco use VA-TOBACCO FORMER USER 04/21/2020 [facility] History of tobacco use FORMER TOBACCO US E >1Y <7Y 04/03/2018 [facility] History of tobacco use CURRENT TOBACCO USER 03/09/2007 [facility] Plan of Care List of future care activities from [facility] Affairs facilities. Additional future care activities may be listed in the Assessment and Plan section. Date/Time Care Activity Care Activity Detail Facili ty 03/27/2024 AMBULATORY - NONE AMBULATORY - NONE [facility] Advance Directives List of completed, amended, or rescinded Advance Directives on record at Department of [facility] facilities. An actual copy of the Directive is not included. Date Advance Directive Provider Source 06/22/2021 ADVANCE DIRECTIVE DISCUSSION ALLYSON GRAF [facility] 06/22/2021 ADVANCE DIRECTIVE ALLYSON GRAF [facility] 03/09/2007 ADVANCE DIRECTIVE SOLEDAD WOLFF [facility]
--- OUTSIDE RECORDS SUMMARY | 2024-03-05 14:04 | XMS_ITS | Data Portability ---
Author Organization [place] [facility] Address [address] [place] [address] Care Team Providers Care Documentation Spec Name Role Phone POST, SUE Primary Care [...] of Hospitaliza tion for UTI. 2022 023 [facility], [address], [place], [address], 3 10:05:08 urinalysis, dipstick 2022 023 [facility], [address], [place], [address], 12:03:37 Referral None recorded. Procedures None recorded. Surgeries None recorded. Imaging None recorded. Medication Orders None recorded. Patient TargetsNo targets recorded. Patient Instructions Encounter Date Encounter Id Patient Instructions Last Modified By Organization Details Last Modified Time 09/23/2022 [id number] Patient to call clinic with questions or concerns. Advised patient to increase water intake and to keep 4 week appointment for next catheter change. [email or web address] Not available 09/23/2022 13:22:30 11/04/2022 [id number] Pt has F/U appt with Dr Barrientos in [place] on 11/11/2022 @ 3:10pm to review UDS. Not available 10/19/2022 15:50:04 Reason for Referral None Reported. Results Created Date Observation Date Name Description Value Unit Range Abnormal Flag LastModifiedBy Organization Detail LastModifiedTime 11/05/1911/04/2022 URINE CULTU RE final report MICROB IOLOGY RESULT S abnormal Not Available [facility] [address], [place], [address], 11/07/2022 10:05:08 11/05/19 23 11/04/2022 urina lysis , dipst ick Color-Status Straw Not Available [facility] [address], [place], [address], 11/04/2022 12:02:10 11/05/19 23 11/04/2022 urina lysis , dipst ick Clarity-Stat us Slight ly Cloudy Not Available [facility] [address], [place], [address], 11/04/2022 12:02:10 11/05/19 23 11/04/2022 urina lysis , dipst ick Glucose-Stat us 500 Not Available [facility] [address], [place], [address], 11/04/2022 12:02:10 11/05/19 23 11/04/2022 urina lysis , dipst ick Bilirubin-St atus Negati ve Not Available [facility] [address], [place], [address], 11/04/2022 12:02:10 11/05/19 23 11/04/2022 urina lysis , dipst ick Ketones-Stat us Negati ve Not Available [facility] [address], [place], [address], 11/04/2022 12:02:10 11/05/19 23 11/04/2022 urina lysis , dipst ick Sp Van-Stat us 1.015 Not Available [facility] [address], [place], [address], 11/04/2022 12:02:10 11/05/19 23 11/04/2022 urina lysis , dipst ick pH-Status 6.5 Not Available [facility] [address], [place], [address], 11/04/2022 12:02:10 11/05/19 23 11/04/2022 urina lysis , dipst ick Protein-Stat us 5.0 Not Available [facility] [address], [place], [address], 11/04/2022 12:02:10 11/05/19 23 11/04/2022 urina lysis , dipst ick Urobilinogen -Status 0.2 Not Available [facility] [address], [place], [address], 11/04/2022 12:02:10 11/05/19 23 11/04/2022 urina lysis , dipst ick Nitrates-Sta tus positi ve Not Available [facility] [address], [place], [address], 11/04/2022 12:02:10 11/05/19 23 11/04/2022 urina lysis , dipst ick Blood-Status Large Not Available [facility] [address], [place], [address], 11/04/2022 12:02:10 11/05/19 23 11/04/2022 urina lysis , dipst ick Leuko-Status Large Not Available [facility] [address], [place], [address], 11/04/2022 12:02:10 11/05/19 23 11/04/2022 urina lysis , dipst ick Specimen Type Cathet erized Not Available [facility] [address], [place], [address], 11/04/2022 12:02:10 11/05/19 23 11/04/2022 urina lysis , dipst ick Performed by Jake n1 Not Available [facility] [address], [place], [address], 11/04/2022 12:02:10 Result Notes None recorded. Problems Name Status Onset Date Resolution Date Notes Provider Name and Address Organization Details Recorded Time Retention of urine Active 3 [facility] 13:15:43 Problem Notes None recorded. Procedures Surgical History Date Name Laterality Status Provider Name and Address Organization Details Recorded Time 3 Fill and Pull/Voiding Trial/TOV completed Jenna song [facility] 12/09/2022 11:59:45 3 Urodynamic Studies completed Deyanira song [facility] 11/04/2022 12:19:38 3 Gordon Catheter Insertion completed Deyanira song [facility] 11/04/2022 12:21:21 3 Urethral Catheter Change completed Jenna Harris null, [facility] 10/21/2022 13:18:32 3 Urethral Catheter Change completed Nenita Flores null, [facility] 09/23/2022 13:21:12 3 Gordon Catheter Insertion completed Roula Beltran null, [facility] 08/03/2022 11:16:51 3 Fill and Pull/Voiding Trial/TOV completed Roula Beltran null, [facility] 08/03/2022 11:16:41 2 Cystoscopy- male completed Kristopher Barrientos MD, PHD [address] [place] [address], [address], [facility] 06/30/2022 09:37:30 2 Urethral Catheter Change completed Carlos Mix null, [facility] 06/30/2022 09:49:15 2 Gordon Catheter Insertion completed Еленаarminda Josue [facility] 06/16/2022 15:03:22 2 Fill and Pull/Voiding Trial/TOV completed Roula Tony PA-C [address] [place] [address], [address], [facility] 06/16/2022 18:06:50 Cataract Surgery completed Empirearminda Josue [facility] 06/16/2022 12:30:25 Orthopedic Surgery completed Empirearminda Josue [facility] 06/16/2022 12:30:33 Imaging Results None recorded. [...] Updated DateTime 09/23/2022 180.34 cm Nenita Sandra [facility] 09/23/2022 13:17:39 Date Recorded Body height Body mass index (BMI) Body weight Provider Name and Address Organization Details Last Updated DateTime 11/11/2022 180.34 cm 30 kg/m2 18212.36 g Amanda Molina [facility] 11/11/2022 16:25:51 Social History Question Answer Notes LastModified by Organizat ion Details LastModified Time Tobacco Smoking Status [facility] 12:29:38 What Is Your [...] Encounter Closed Date Diagnosis/Indication Diagnosis SNOMED-CT Code [id number] Roula Coh[place], PA-C [facility] [address] [place] [address] 06/16/2022 11:30:09 06/20/2022 08:36:10 Retention of urine [id number] Benign pro static hyperplasia with outflow obstruction [id number] Kristopher bains MD, PHD [facility] [address] [place] [address] 06/30/2022 08:46:23 07/04/2022 11:29:58 Retention of urine [id number] Benign pro static hyperplasia with outflow obstruction [id number] Roula Beltran [facility] [address] [place] [address] 08/03/2022 10:27:16 08/05/2022 11:54:14 Retention of urine 866043872 [id number] Nenitaaranza Flores [facility] [address] [place] [address] 09/23/2022 10:30:04 09/26/2022 14:37:37 [id number] Kristopher bains MD, PHD [facility] [address] [place] [address] 11/04/2022 10:41:00 11/10/2022 13:37:32 Benign prostatic hyperplasia with outflow obstruction 195442040 Retention of urine 78566 4002 Microscopic hematuria 19 2380433 [id number] Jenna Harris [facility] [address] [place] [address] 10/21/2022 11:27:55 10/24/2022 11:49:09 Retention of urine 157736222 [id number] Kristopher bains MD, PHD [facility] [address] [place] [address] 11/11/2022 16:25:28 11/17/2022 17:02:38 Retention of urine 781468088 Benign pro static hyperplasia with outflow obstruction [id number] Jenna Harris [facility] [address] [place] [address] 12/09/2022 10:56:01 12/12/2022 15:10:14 Retention of urine 900931110 Health Concerns Section Related Observation LastModified by Organization Detai ls LastModified Time None Recorded Concern Status LastModified by Organization Details LastModified Time None Recorded Advance Directives Directive None Recorded Payers Encounter Date Sequence Insurance Name Policy Number Policy Molina Covered Member ID Molina Member ID Guarantor Name 09/23/2022 1 [place] [employer] Tom B Renaux [id number] Tom B Renaux 09/23/2022 2 [place] [id number] Tom B Renaux [id number] Tom B Renaux 10/21/2022 1 [place] [employer] Tom B Renaux [id number] Tom B Renaux 10/21/2022 2 [place] [id number] Tom B Renaux [id number] Tom B Renaux 11/04/2022 1 [place] [employer] Tom B Renaux [id number] Tom B Renaux 11/04/2022 2 [place] [id number] Tom B Renaux [id number] Tom B Renaux 11/11/2022 1 [place] [employer] Tom B Renaux [id number] Tom B Renaux 11/11/2022 2 [place] [id number] Tom B Renaux [id number] Tom B Renaux 12/09/2022 1 [place] [employer] Tom B Renaux [id number] Tom B Renaux 12/09/2022 2 [place] [id number] Tom B Renaux [id number] Tom B Renaux Notes Date Note Type [...] for next catheter change. OLMAN Kennedy - [facility] 09/23/2022 13:22:32 10/21/2022 text/html HPI Notes: Pt he re for catheter change Jenna Harris OLMAN song [facility] 10/21/2022 13:21:54 11/11/2022 text/html HPI Notes: 77M w ith urinary retention. Hospitalization at [facility] from 04/30-05/30 for MSSA bacteremia with C-spine [...] their care. Kristopher Barrientos MD, PHD [address], [place], [address], [facility] 11/11/2022 17:49:57 12/09/2022 text/html HPI Notes: Pt of Dr PALMER, here for TOV recommended at 11/11/22 visit Jenna song [facility] 12/09/2022 12:43:22
== END 2024-03-05 14:01 | disposition home or self-care (01) ==
LOC: WOUND 14:00
PROVIDERS: Visit Provider Nurse Practitioner Family
DX: E11.621 Type 2 diabetes mellitus with foot ulcer (principal); L97.518 Non-pressure chronic ulcer of other part of right foot with other specified severity; I89.0 Lymphedema, not elsewhere classified; Z79.4 Long term (current) use of insulin; Z79.84 Long term (current) use of oral hypoglycemic drugs
CPT/HCPCS: 11042

== ENCOUNTER 2024-03-11 08:53 | Outpatient (CLI) | payer MEDICARE, BC, SELFPAY ==
--- OUTSIDE RECORDS SUMMARY | 2024-03-11 08:55 | XMS_ITS | Clinical Summary ---
Author Organization [facility] Address [place], [place] [address] Care Team Providers Care Color Grinder Name Role Phone Post, Dave Velazquez MD Primary Care Provider Moshe Enciso MD Unavailable Arie Justin MD Unavailable [phone] [facility], Met Unavailable Murali Hoover DPM Unavailable [phone] Allergies No known active allergies Medications [...] to Care Guide Pamella Brennan Phone number [phone]. Alcohol abuse 06/02/2010 03/26/2019 Overview: Sober since [...] 36.7 ??C (98 ??F) 06/29/2022 8:43 AM TRANSPORTATION MAINTENANCE WORKER Respiratory Rate 18 06/29/2022 8:43 AM TRANSPORTATION MAINTENANCE WORKER Oxygen Saturation 96% 07/21/2023 1:34 PM TRANSPORTATION MAINTENANCE WORKER Inhaled Oxygen Concentration - - Weight 107 kg (236 lb) 11/03/2023 11:13 AM CDT w ith shoes Height 180.3 cm (5' 10.98) 07/21/2023 1:[address] Body Mass Index 32.93 07/21/2023 1:34 PM TRANSPORTATION MAINTENANCE WORKER Plan of Treatment Health Maintenance Due Date [...] 07/16/2020, 04/21/2020 Medical Devices Implanted Type Area Sales Development Manager Device Identifier Shelf Expiration Date Model / Serial / Lot [id number] - [id number] Implanted:Qty: 1 on 09/20/2021 at [facility] Right: Foot [employer] AR-8725-4 4H / / Description:COMPRESSION FT S CREWS CANNULATED, 2.5 MICRO 44MM LOAD 4 7 [id number] [facility]-1530p - [id number] Implanted:Qty: 1 on 09/20/2021 at [facility] Right: Foot [employer] 03/30/2025 AR-1530P- CP / / [id number] Description:FOREFOOT INTERNA L BRACE IMPLANT SYSTEM, PEEK Screw 4.77b71qj Bio Compositetenodesis Disp Rebar Worker Pk - [id number] Implanted:Qty: 1 on 09/20/2021 at [facility] Right: Foot [employer] 08/30/2022 AR-1547CD S / / [id number] Ancr Sut 1.3mm Dx Fibertak Suturetape 2 Ndl 26.2mm /2 [facility] - [id number] Implanted:Qty: 1 on 09/20/2021 at [facility] Right: Foot [employer] 06/29/2026 AR-8990ST / / [id number] Explanted Type Area Sales Development Manager Device Identifier Shelf Expiration Date Model / Serial / Lot Wire Kirs .[id number] Smooth6/Pk Depuy/Héctor - [id number] Explanted:Qty: 1 on 09/20/2021 at [facility] Right: Foot [employer] / / Description:LOAD 4 8 [id number] [facility]8737-40 - [id number] Explanted:Qty: 1 on 09/20/2021 at [facility] Right: Foot [employer] AR-8737-40 / / Description:2.5 MICRO COMPRE SSION FT DRILLS AND DISPOSABLES, GUIDEWIRE W TROCAR TIP, THREADED, 0.34 IN (.86MM) LOAD 4 7 [id number] Procedures Procedure Name Priority Date/Time Associated Diagnosis Comments CT CHEST PE STUDY Routine 05/10/2022 7:5 0 PM CDT OCCULT BLOOD IFOBT STOOL Routine 07/03/2013 7:00 PM TRANSPORTATION MAINTENANCE WORKER Screening for colon cancer from Last 3 [...] Occult Blood Stool (IFOBT) (07/03/2013 7:00 PM TRANSPORTATION MAINTENANCE WORKER) STOOL BLOOD ,IFOBT Negative Negative, Invalid 07/04/2013 3:03 PM TRANSPORTATION MAINTENANCE WORKER [facility] Stool specimen (specimen) STOOL SPECIMEN / Unknown Non-Blood / Unknown 07/03/2013 7:00 PM TRANSPORTATION MAINTENANCE WORKER 07/04/2013 2:39 PM TRANSPORTATION MAINTENANCE WORKER Dave Garrett MD LABORATORY [facility] [address] [place] [address] from Last 3 Months or Most Recently Relevant to Health Maintenance Advance Directives Documents on File Type Date Recorded Patient Environment Artist Expl anation Healthcare Directive 05/21/2021 3:50 PM [...] Code Status Discussion: Reviewed Preferences Care Teams Color Grinder Relationship Specialty Start Date End Date Post, Dave Velazquez MD PCP - General 06/02/10 Moshe Enciso MD [address] [place], [place] [address] Endocrinology Endocrinology 01/04/18 [place] [address] [place], [place] [address] Surgery - Ophthalmology 03/22/18 [facility] [place] [address] [place], [place] [address] 06/08/21 Murali Hoover DPM [address] [place] [address] Surgery - Podiatric 01/03/23
--- OUTSIDE RECORDS SUMMARY | 2024-03-11 08:55 | XMS_ITS | Clinical Summary ---
Author Organization [facility] Address [address] [place] [address] Care Team Providers Care Group Fitness Assistant Department Head Name Role Phone Post, Dave Wakefield Primary Care Provider [phone] Medications Medication Sig Dispensed Refills Start Date [...] Comments Blood Pressure 148/85 06/26/2018 5:58 PM CONCEPT ARTIST Pulse 90 06/26/2018 5:58 PM CONCEPT ARTIST Temperature 36.6 ??C (97.8 ??F) 06/26/2018 5:58 PM CS T Respiratory Rate 18 06/26/2018 5:58 PM CONCEPT ARTIST Oxygen Saturation 95% 06/26/2018 7:00 PM CONCEPT ARTIST Inhaled Oxygen Concentration - - Weight 112 kg (247 lb) 06/26/2018 5:58 PM CONCEPT ARTIST Height 180.3 cm (5' 11) 06/26/2018 5:58 PM CONCEPT ARTIST Body Mass Index 34.45 06/26/2018 5:58 PM CONCEPT ARTIST Plan of Treatment Not on file Care Teams Group Fitness Assistant Department Head Relationship Specialty Start Date End Date Post, Dave Wakefield PCP - General Internal Medicine 06/26/18
--- OUTSIDE RECORDS SUMMARY | 2024-03-11 08:55 | XMS_ITS | Referral Summary ---
Author Organization [facility] Address [address] [place] [address] Care Team Providers Care Metallurgical Engineering Teacher Name Role Phone Post, Dave Wakefield Primary Care Provider [phone] Medications Medication Sig Dispensed Refills Start Date [...] Comments Blood Pressure 148/85 06/26/2018 5:58 PM WATER JET LOOM FIXER Pulse 90 06/26/2018 5:58 PM WATER JET LOOM FIXER Temperature 36.6 ??C (97.8 ??F) 06/26/2018 5:58 PM CS T Respiratory Rate 18 06/26/2018 5:58 PM WATER JET LOOM FIXER Oxygen Saturation 95% 06/26/2018 7:00 PM WATER JET LOOM FIXER Inhaled Oxygen Concentration - - Weight 112 kg (247 lb) 06/26/2018 5:58 PM WATER JET LOOM FIXER Height 180.3 cm (5' 11) 06/26/2018 5:58 PM WATER JET LOOM FIXER Body Mass Index 34.45 06/26/2018 5:58 PM WATER JET LOOM FIXER Plan of Treatment Not on file Care Teams Metallurgical Engineering Teacher Relationship Specialty Start Date End Date Post, Dave Wakefield PCP - General Internal Medicine 06/26/18
--- OUTSIDE RECORDS SUMMARY | 2024-03-11 08:55 | XMS_ITS | Continuity of Care Document ---
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 It does not include entries that were removed or entered in error. Problem Status Onset Date Problem Type Date of Resolution Comments Source Exposure to potentially hazardous substance ([facility] [id number]) Active 10/05/19 24 Condition Oct 05, 2023 Entered By: VIJI VIVAS Comment: [facility] Documentation Initiative [facility] Depressive Disorder NOS * (ICD-9-CM 311./300.4) Active Condition [facility] Diabetes mellitus (SNOMED CT 63659799) Active Condition [facility] Diabetic neuropathy Active Condition [facility] Foot Pain (ICD-9-CM 719.47) Active Condition Aug 26 10 Entered By: MALINA WORLEY Comment: left 5th metatarsal fracture [facility] History of amputation of lesser toe Active Condition [facility] Hyperlipidemia (SNOMED CT 65296050) Active Condition [facility] Hyperuricemia Active Condition [place] [facility] ([facility]) Osteopenia Active Condition [place] [facility]) Other Iatrogenic Hypotension Active Condition [place] ([facility]) Personal History of Alcoholism (ICD-9-CM V11.3) Active Condition [facility] Tobacco user (SNOMED CT 754450774) Active Condition [facility] Diagnosis: ICD-10-CM E11.42 Type 2 diabetes mellitus with diabetic polyneuropathy Active Diagnosis [facility] Diana [facility] Diagnosis: ICD-10-CM E11.621 Type 2 diabetes mellitus with foot ulcer Active Diagnosis [facility] Diagnosis: ICD-10-CM Z77.29 Contact with and exposure to other hazardous substances Active Diagnosis [facility] Medications Combined list of outpatient [...] INSTITUTION HOSPITAL ORAL ACTIVE CHARLEE FISH 2022 [facility] ASPIRIN 81MG TAB,EC ASPIRIN 81MG TAB,EC Non-VA TAKE ONE TABLET BY MOUTH EVERY DAY Mar 13, 2007 Non-[place] Document ed by: MARY CHOUDHARY Document ed at: [facility] ORAL ACTIVE JEFF CHOUDHARY A 2006 [facility] ATORVASTATI N CA 40MG TAB ATORVAST ATIN CA 40MG TAB Active TAKE ONE TABLET BY MOUTH EVERY DAY FOR CHOLESTE ROL Apr 11, 2023 90 Apr 11, 2024 [id number] A December 17, 2023 CHARLEE FISH [facility] ORAL ACTIVE 04/11/2024 [id number] CHARLEE FISH 2022 90 [facility] ATORVASTATI N CA 40MG TAB ATORVAST ATIN CA 40MG TAB Disconti nued TAKE ONE TABLET BY MOUTH EVERY DAY FOR CHOLESTE ROL Jul 14, 2022 90 Jul 15, 2023 [id number] Mar 31, 2023 NAIDL,TO DD [facility] ORAL DISCONT INUED 07/15/2023 [id number] NAIDL,TOD D 2022 90 [facility] CHOLECALCIF QUINTIN TAB CHOLECAL CIFEROL TAB Non-VA TAKE 5000 UNITS BY MOUTH EVERY DAY Aug 21, 2022 Non-VA Document ed by: CHARLEE FISH Document ed at: [facility] ORAL ACTIVE CHARLEE FISH 2022 [facility] COENZYME Q10 CAP/TAB COENZYME Q10 CAP/TAB Non-VA TAKE 1 CAPSULE BY MOUTH EVERY DAY Aug 21, 2022 Non-VA Document ed by: CHARLEE FISH Document ed at: [facility] ORAL ACTIVE CHARLEE FISH 2022 [facility] CYANOCOBALA MIN 1000MCG TAB CYANOCOB ALAMIN 1000MCG TAB Non-VA TAKE ONE TABLET BY MOUTH EVERY DAY Mar 09, 2022 Non-VA Document ed by: MAUREEN BRITO DD Document ed at: [facility] ORAL ACTIVE DEAN BRITO 2021 [facility] DICLOFENAC NA 1% GEL,TOP DICLOFEN AC NA 1% GEL,TOP Active APPLY 4 GRAMS TOPICALL Y FOUR TIMES A DAY NEEDED FOR JOINT PAIN JOINT PAIN Mar 22, 2023 100 Mar 22, 2024 [id number] Mar 22, 2023 FISH CHARLEE Bowers [facility] TOPICA L ACTIVE 03/22/2024 [id number] ABE CHARLEE A 2022 100 [facility] FINASTERIDE 5MG TAB FINASTER RACHEL 5MG TAB Active TAKE ONE TABLET BY MOUTH EVERY DAY FOR PROSTATE FOR PROSTATE Apr 11, 2023 90 Apr 11, 2024 [id number] A Jan 08, [address] [facility] ORAL ACTIVE 04/11/2024 [id number] CHARLEE FISH 2022 90 [facility] FINASTERIDE 5MG TAB FINASTER RACHEL 5MG TAB Disconti nued TAKE ONE TABLET BY MOUTH EVERY DAY FOR PROSTATE FOR PROSTATE Jul 12, 2022 90 Jul 13, 2023 [id number] Mar 31, 2023 FISHCHARLEE Bowers [facility] ORAL DISCONT INUED 07/13/2023 [id number] ABE CHARLEE A 2021 90 [facility] FISH OIL 1000MG (500MG DHA/EPA) CAP,ORAL FISH OIL 1000MG (500MG DHA/EPA) CAP,ORAL Non-VA TAKE 1 CAPSULE BY MOUTH TWICE A DAY Mar 13, 2007 Non-VA Document ed by: MARY CHOUDHARY A Document ed at: [facility] ORAL ACTIVE JEFF CHOUDHARY 2006 [facility] INSULIN,GLA RGINE-YFGN 100UNIT/ML INJ PEN,3ML INSULIN, GLARGINE -YFGN 100UNIT/ ML INJ PEN,3ML Active INJECT 24 UNITS UNDER THE SKIN EVERY EVENING FOR DIABETES FOR DIABETES Aug 29, 2023 5 Aug 29, 2024 [id number] Mar 07, 2024 NAIDL,TO DD [facility] SUBCUT ANEOUS ACTIVE 08/29/2024 [id number] NAIDL,TOD D 2023 5 [facility] INSULIN,GLA RGINE-YFGN 100UNIT/ML INJ PEN,3ML INSULIN, GLARGINE -YFGN 100UNIT/ ML INJ PEN,3ML Disconti nued INJECT 22 UNITS UNDER THE SKIN AT BEDTIME FOR DIABETES FOR DIABETES Jan 06, 2023 5 Jan 07, 2024 [id number] Jul 25, 2023 NAIDL,TO DD [facility] SUBCUT ANEOUS DISCONT INUED (EDIT) 01/07/2024 [id number] NAIDL,TOD D 2022 5 [facility] INSULIN,GLA RGINE-YFGN 100UNIT/ML INJ PEN,3ML INSULIN, GLARGINE -YFGN 100UNIT/ ML INJ PEN,3ML Disconti nued INJECT 20 UNITS UNDER THE SKIN AT BEDTIME FOR DIABETES FOR DIABETES December 07, 2022 5 December 08, 2023 [id number] Jan 06, 2023 NAIDL,TO DD [facility] SUBCUT ANEOUS DISCONT INUED (EDIT) 12/08/2023 [id number] 3 NAIDL,TOD D 2022 5 [facility] LIDOCAINE 4% CREAM,TOP LIDOCAIN E 4% CREAM,TO P Active APPLY MODERATE AMOUNT TOPICALL Y THREE TIMES A DAY FOR PAIN PAIN Mar 22, 2023 30 Mar 22, 2024 [id number] Mar 22, 2023 CHARLEE FISH [facility] TOPICA L ACTIVE 03/22/2024 [id number] CHARLEE FISH 2022 30 [facility] MAGNESIUM OXIDE 400MG TAB MAGNESIU M OXIDE 400MG TAB Non-VA TAKE ONE TABLET BY MOUTH EVERY DAY Aug 21, 2022 Non-VA Document ed by: CHARLEE FISH Document ed at: [facility] ORAL ACTIVE CHARLEE FISH 2022 [facility] MENTHOL/MET HYL SALICYLATE (10-15%) LOW CONC. CREAM,TOP MENTHOL/ METHYL SALICYLA TE (10-15%) LOW CONC. CREAM,TO P Active APPLY THIN LAYER TOPICALL Y THREE TIMES A DAY FOR MUSCLE PAIN MUSLCE PAIN Mar 22, 2023 90 Mar 22, 2024 [id number] Mar 22, 2023 CHARLEE FISH [facility] TOPICA L ACTIVE 03/22/2024 [id number] CHARLEE FISH 2022 90 [facility] METFORMIN HCL 1000MG TAB METFORMI N HCL 1000MG TAB Active TAKE ONE TABLET BY MOUTH TWICE A DAY FOR DIABETES Apr 11, 2023 180 Apr 11, 2024 [id number] E Feb 19, 2024 CHARLEE FISH [facility] ORAL ACTIVE 04/11/2024 [id number] CHARLEE FISH 2022 180 [facility] METFORMIN HCL 1000MG TAB METFORMI N HCL 1000MG TAB Disconti nued TAKE ONE TABLET BY MOUTH TWICE A DAY FOR DIABETES Jul 14, 2022 180 Jul 15, 2023 [id number] Apr 06, 2023 NAIDL,TO DD [facility] ORAL DISCONT INUED 07/15/2023 [id number] NAIDL,TOD D 2022 180 [facility] OMEPRAZOLE 20MG CAP,EC OMEPRAZO LE 20MG CAP,EC Active TAKE ONE CAPSULE BY MOUTH EVERY DAY ON AN EMPTY STOMACH, AT LEAST 30 MINUTES PRIOR TO A MEAL FOR GERD GERD Mar 22, 2023 90 Mar 22, 2024 [id number] December 22, 2023 CHARLEE FISH [facility] ORAL ACTIVE 03/22/2024 [id number] CHARLEE FISH 2022 90 [facility] SEMAGLUTIDE 1MG/0.75ML INJ,SOLN,PE N,3ML SEMAGLUT RACHEL 1MG/0.75 ML INJ,SOLN ,PEN,3ML Active INJECT 1MG UNDER THE SKIN EVERY WEEK FOR DIABETES FOR DIABETES Nov 07, 2023 1 Nov 07, 2024 [id number] Mar 12, 2024 NAIDL,TO DD [facility] SUBCUT ANEOUS ACTIVE 11/07/2024 [id number] NAIDL,TOD D 2023 1 [facility] SEMAGLUTIDE 1MG/0.75ML INJ,SOLN,PE N,3ML SEMAGLUT RACHEL 1MG/0.75 ML INJ,SOLN ,PEN,3ML Disconti nued INJECT 1MG UNDER THE SKIN EVERY WEEK FOR DIABETES FOR DIABETES Nov 07, 2022 1 Nov 08, 2023 [id number] Nov 06, 2023 NAIDL,TO DD [facility] SUBCUT ANEOUS DISCONT INUED 11/08/2023 [id number] NAIDL,TOD D 2022 1 [facility] TAMSULOSIN HCL 0.4MG CAP TAMSULOS IN HCL 0.4MG CAP Active TAKE ONE CAPSULE BY MOUTH EVERY EVENING PROSTATE Apr 13, 2023 30 Apr 13, 2024 [id number] Feb 19, 2024 CHARLEE FISH [facility] ORAL ACTIVE 04/13/2024 [id number] CHARLEE FISH 2022 30 [facility] TAMSULOSIN HCL 0.4MG CAP TAMSULOS IN HCL 0.4MG CAP Disconti nued TAKE ONE CAPSULE BY MOUTH EVERY EVENING PROSTATE Apr 11, 2023 90 Apr 11, 2024 [id number] Apr 21, 2023 CHARLEE FISH [facility] ORAL DISCONT INUED 04/11/2024 [id number] CHARLEE FISH 2022 90 [facility] TAMSULOSIN HCL 0.4MG CAP TAMSULOS IN HCL 0.4MG CAP Disconti nued TAKE ONE CAPSULE BY MOUTH EVERY EVENING PROSTATE Aug 03, 2022 90 Aug 04, 2023 [id number] Jan 21, 2023 CHARLEE FISH [facility] ORAL DISCONT INUED 08/04/2023 [id number] CHARLEE FISH 2022 90 [facility] TURMERIC CAP/TAB TURMERIC CAP/TAB Non-VA TAKE 500 MG BY MOUTH TWICE A DAY Apr 22, 2019 Non-VA Document ed by: MATTY WOO Document ed at: [facility] ORAL ACTIVE MATTY POWERS 2018 [facility] Allergies, Adverse Reactions, Alerts Combined list of allergies from Department of Defense and Veterans Affairs facilities. It does not include entries that were removed or entered in error. Substance Category Reaction Severity Reaction type Status Date Reported Comments Source VANCOMYCIN Propensity to adverse reactions to drug (finding) [place] active 8 [facility] Immunizations Combined list of available immunizations from the Department of [facility] and Veterans Affairs facilities. Immunization Series Date Given Administered By Site Reaction Lot Number CVX Code Drug Business Unit Manager Status Comments Source ZOSTER RECOMBINANT 2 2019 187 complet ed [facility] INFLUENZA, INJECTABLE, QUADRIVALENT, PRESERVATIVE FREE 2019 150 complet ed [facility] ZOSTER RECOMBINANT 1 2019 187 complet ed [facility] INFLUENZA, HIGH-DOSE, QUADRIVALENT 2019 197 complet ed [facility] INFLUENZA, SEASONAL, INJECTABLE, PRESERVATIVE FREE 2017 140 complet ed [facility] INFLUENZA, INJECTABLE, QUADRIVALENT, PRESERVATIVE FREE 2017 150 complet ed [facility] INFLUENZA, INJECTABLE, QUADRIVALENT, PRESERVATIVE FREE 2015 150 complet ed [facility] TDAP 2015 115 complet ed [facility] TA PNEUMOCOCCAL CONJUGATE PCV 13 2015 133 complet ed [facility] TD (ADULT), 5 LF TETANUS TOXOID, PRESERVATIVE FREE, ADSORBED 2015 113 complet ed [facility] INFLUENZA, INJECTABLE, QUADRIVALENT, PRESERVATIVE FREE 2013 150 complet ed [facility] PNEUMOCOCCAL POLYSACCHARID E PPV23 2010 33 complet ed [facility] INFLUENZA, UNSPECIFIED FORMULATION 2006 88 complet ed [facility] PNEUMOCOCCAL, UNSPECIFIED FORMULATION 2006 109 complet ed [facility] TD(ADULT) UNSPECIFIED FORMULATION 2006 NONE 139 complet ed [facility] TETANUS TOXOID, UNSPECIFIED FORMULATION 2006 NONE 112 complet [facility] Results Combined list of recent chemistry, [...] Reporting Lab: [facility] [address] Performing Lab: [facility] [address] [facility] BASIC METABOLIC PANEL+MG CREATININE [MASS/VOLUM E] IN SERUM OR PLASMA 1.2 mg/dL 0.7 - 1.2 03/22 Specimen Type: PLASMA No comment entered. Ordering Provider: ME LEEROY FISH Report Released Date/Time: Aug 21, 2022 03:48 PM Reporting Lab: [facility] [address] Performing Lab: [facility] [address] [place] [facility] BASIC METABOLIC PANEL+MG UREA NITROGEN [MASS/VOLUM E] IN SERUM OR PLASMA 15 mg/dL 8 - 03/22 Specimen Type: PLASMA No comment entered. Ordering Provider: ME LEEROY FISH Report Released Date/Time: Aug 21, 2022 03:48 PM Reporting Lab: [facility] [address] Performing Lab: [facility] [address] [place] [facility] BASIC METABOLIC PANEL+MG GLUCOSE [MASS/VOLUM E] IN SERUM OR PLASMA 145 mg/dL 70 - 100 03/22 H Specimen Type: PLASMA No comment entered. Ordering Provider: ME LEEROY FISH Report Released Date/Time: Aug 21, 2022 03:48 PM Reporting Lab: [facility] [address] Performing Lab: [facility] [address] [place] [facility] BASIC METABOLIC PANEL+MG SODIUM [MOLES/VOLU ME] IN SERUM OR PLASMA 138 mmol/L 136 - 145 03/22 Specimen Type: PLASMA No comment entered. Ordering Provider: ME LEEROY FISH Report Released Date/Time: Aug 21, 2022 03:48 PM Reporting Lab: [facility] [address] Performing Lab: [facility] [address] [place] [facility] BASIC METABOLIC PANEL+MG POTASSIUM [MOLES/VOLU ME] IN SERUM OR PLASMA 4.5 mmol/L 3.5 - 5.1 03/22 Specimen Type: PLASMA No comment entered. Ordering Provider: ME LEEROY FISH Report Released Date/Time: Aug 21, 2022 03:48 PM Reporting Lab: [facility] [address] Performing Lab: [facility] [address] [place] [facility] BASIC METABOLIC PANEL+MG CHLORIDE [MOLES/VOLU ME] IN SERUM OR PLASMA 101 mmol/L 98 - 107 03/22 Specimen Type: PLASMA No comment entered. Ordering Provider: ME LEEROY FISH Report Released Date/Time: Aug 21, 2022 03:48 PM Reporting Lab: [facility] [address] Performing Lab: [facility] [address] [place] [facility] BASIC METABOLIC PANEL+MG CARBON DIOXIDE, TOTAL [MOLES/VOLU ME] IN SERUM OR PLASMA 27 mmol/L 22 - 29 03/22 Specimen Type: PLASMA No comment entered. Ordering Provider: ME LEEROY FISH Report Released Date/Time: Aug 21, 2022 03:48 PM Reporting Lab: [facility] [address] Performing Lab: [facility] [address] [place] [facility] BASIC METABOLIC PANEL+MG CALCIUM [MASS/VOLUM E] IN SERUM OR PLASMA 10.0 mg/dL 8.4 - 10.2 03/22 Specimen Type: PLASMA No comment entered. Ordering Provider: ME LEEROY FISH Report Released Date/Time: Aug 21, 2022 03:48 PM Reporting Lab: [facility] [address] Performing Lab: [facility] [address] [place] [facility] BASIC METABOLIC PANEL+MG MAGNESIUM [MASS/VOLUM E] IN SERUM OR PLASMA 1.9 mg/dL 1.6 - 2.6 03/22 Specimen Type: PLASMA No comment entered. Ordering Provider: ME LEEROY FISH Report Released Date/Time: Aug 21, 2022 03:48 PM Reporting Lab: [facility] [address] Performing Lab: [facility] [address] [place] [facility] BASIC METABOLIC PANEL+MG ANION GAP IN SERUM OR PLASMA 10 mmol/L 5 - 15 03/22 Specimen Type: PLASMA No comment entered. Ordering Provider: ME LEEROY FISH Report Released Date/Time: Aug 21, 2022 03:48 PM Reporting Lab: [facility] [address] Performing Lab: [facility] [address] [place] [facility] BASIC METABOLIC PANEL+MG GLOMERULAR FILTRATION RATE/1.73 SQ M.PREDICTED [VOLUME RATE/AREA] IN SERUM, PLASMA OR BLOOD BY CREATININE- BASED FORMULA (CKD-EPI 2020) 63 60 03/22 Specimen Type: PLASMA No comment entered. Ordering Provider: ME LEEROY FISH Report Released Date/Time: Aug 21, 2022 03:48 PM Reporting Lab: [facility] [address] Performing Lab: [facility] [address] [place] [facility] HEMOGLOBI N A1C HEMOGLOBIN A1C/HEMOGLO BIN.TOTAL [...] December 22, 2021 03:46 PM Reporting Lab: [id number] Performing Lab: [facility] [address] [place] [facility] BASIC METABOLIC PANEL+MG CREATININE [MASS/VOLUM E] IN SERUM OR PLASMA 0.9 mg/dL 0.7 - 1.2 08/18 Specimen Type: PLASMA No comment entered. Ordering Provider: ME LEEROY FI[facility] Report Released Date/Time: December 22, 2021 03:46 PM Reporting Lab: [place] [address] Performing Lab: [place] [phone] [place] [facility] BASIC METABOLIC PANEL+MG UREA NITROGEN [MASS/VOLUM E] IN SERUM OR PLASMA 12 mg/dL 8 - 26 08/18 Specimen Type: PLASMA No comment entered. Ordering Provider: ME LEEROY FISH Report Released Date/Time: December 22, 2021 03:46 PM Reporting Lab: [facility] [address] Performing Lab: [facility] [address] [place] [facility] BASIC METABOLIC PANEL+MG GLUCOSE [MASS/VOLUM E] IN SERUM OR PLASMA 184 mg/dL 70 - 100 08/18 H Specimen Type: PLASMA No comment entered. Ordering Provider: ME LEEROY FISH Report Released Date/Time: December 22, 2021 03:46 PM Reporting Lab: [facility] [address] Performing Lab: [facility] [address] [place] [facility] BASIC METABOLIC PANEL+MG SODIUM [MOLES/VOLU ME] IN SERUM OR PLASMA 137 mmol/L 136 - 145 08/18 Specimen Type: PLASMA No comment entered. Ordering Provider: FISH,ME LODY A Report Released Date/Time: December 22, 2021 03:46 PM Reporting Lab: [facility] [address] Performing Lab: [facility] [address] [place] [facility] BASIC METABOLIC PANEL+MG POTASSIUM [MOLES/VOLU ME] IN SERUM OR PLASMA 3.9 mmol/L 3.5 - 5.1 08/18 Specimen Type: PLASMA No comment entered. Ordering Provider: ME LEEROY FISH Report Released Date/Time: December 22, 2021 03:46 PM Reporting Lab: [facility] [address] Performing Lab: [facility] [address] [place] [facility] BASIC METABOLIC PANEL+MG CHLORIDE [MOLES/VOLU ME] IN SERUM OR PLASMA 102 mmol/L 98 - 107 08/18 Specimen Type: PLASMA No comment entered. Ordering Provider: ME LEEROY FISH Report Released Date/Time: December 22, 2021 03:46 PM Reporting Lab: [facility] [address] Performing Lab: [facility] [address] [place] [facility] BASIC METABOLIC PANEL+MG CARBON DIOXIDE, TOTAL [MOLES/VOLU ME] IN SERUM OR PLASMA 26 mmol/L 22 - 29 08/18 Specimen Type: PLASMA No comment entered. Ordering Provider: ME LEEROY FISH Report Released Date/Time: December 22, 2021 03:46 PM Reporting Lab: [facility] [address] Performing Lab: [facility] [address] [place] [facility] BASIC METABOLIC PANEL+MG CALCIUM [MASS/VOLUM E] IN SERUM OR PLASMA 9.4 mg/dL 8.4 - 10.2 08/18 Specimen Type: PLASMA No comment entered. Ordering Provider: ME LEEROY FISH Report Released Date/Time: December 22, 2021 03:46 PM Reporting Lab: [facility] [address] Performing Lab: [facility] [address] [place] [facility] BASIC METABOLIC PANEL+MG MAGNESIUM [MASS/VOLUM E] IN SERUM OR PLASMA 1.6 mg/dL 1.6 - 2.6 08/18 Specimen Type: PLASMA No comment entered. Ordering Provider: ME LEEROY FISH Report Released Date/Time: December 22, 2021 03:46 PM Reporting Lab: [facility] [address] Performing Lab: [facility] [address] [place] [facility] BASIC METABOLIC PANEL+MG ANION GAP IN SERUM OR PLASMA 9 mmol/L 5 - 15 08/18 Specimen Type: PLASMA No comment entered. Ordering Provider: ME LEEROY FISH Report Released Date/Time: December 22, 2021 03:46 PM Reporting Lab: [facility] [address] Performing Lab: [facility] [address] [place] [facility] BASIC METABOLIC PANEL+MG GLOMERULAR FILTRATION RATE/1.73 SQ M.PREDICTED [VOLUME RATE/AREA] IN SERUM, PLASMA OR BLOOD BY CREATININE- BASED FORMULA (CKD-EPI) 89 60 08/18 Specimen Type: PLASMA No comment entered. Ordering Provider: ME LEEROY FISH Report Released Date/Time: December 22, 2021 03:46 PM Reporting Lab: [facility] [address] Performing Lab: [facility] [address] [facility] Vital Signs Combined list of inpatient [...] DC Date Status Disposition Source [facility] HC PRO PHONE CALL 11-20 MIN [id number] Diagnos is: ICD-10- CM E11.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
NAKARI DSOUZA 09/29 [facility] [place] [facility] PRO PHONE CALL 21-30 MIN [id number] [id number] Diagnos is: ICD-10- CM E11.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
NAIDL,KARI 11/07 [facility] IS [facility] HC PRO PHONE CALL 11-20 MIN [id number] Diagnos is: ICD-10- CM E11.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
NAIDL,KARI 12/07 [facility] Outpatient Encounter [id number] Diagnos is: ICD-10- CM Z77.29 Contact with and exposur e to other [facility]<br/ > [facility]27 [facility] Outpatient Encounter [id number] Diagnos is: ICD-10- CM Z77.29 Contact with and exposur e to other hazardo [facility] substan monica<br/ > JEANINE,MATH ILDE J 12/27 [facility] HC PRO PHONE CALL 11-20 MIN [phone] Diagnos is: ICD-10- CM E11.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
NAIDL,KARI 01/06 [facility] IS [facility] Outpatient Encounter [id number] 03/10 [facility] IS [facility] HC PRO PHONE CALL 11-20 MIN [id number] Diagnos is: ICD-10- CM E11.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
NAIDL,KARI 03/14 [facility] IS [facility] OFFICE O/P EST LOW 20-29 MIN [id number] Diagnos is: ICD-10- CM E11.621 Type 2 diabete s mellitu s with foot ulcer<b r/> Rhiannon FISH MAEVE Robinson 03/22 [place] [facility] [place] [facility] PRO PHONE CALL 21-30 MIN [id number] Diagnos is: ICD-10- CM E11.42 Type 2 diabete s mellitu s with diabeti c polyneu ropathy
NAIDL,KARI 04/18 [place] [facility] [place] [facility] PRO PHONE CALL 21-30 MIN [id number] [phone] Diagnos is: ICD-10- CM E11.42 Type 2 diabete s mellitu s with diabeti c polyneu ropathy
NAIDL,KARI 07/11 [place] [facility] [place] [facility] MTMS BY PHARM ADDL 15 MIN [id number] [phone] Diagnos is: ICD-10- CM E11.42 Type 2 diabete s mellitu s with diabeti c polyneu ropathy
NAIDL,KARI 08/29 [place] [facility] [place] [facility] MTMS BY PHARM EST 15 MIN [phone] Diagnos is: ICD-10- CM E11.42 Type 2 diabete s mellitu s with diabeti c polyneu ropathy
AWSOLEDAD BUCKLEY 10/10 [place] [facility] [place] [facility] Outpatient Encounter [phone] 10/16 [place] [facility] [place] [facility] MTMS BY PHARM EST 15 MIN [phone] Diagnos is: ICD-10- CM E11.621 Type 2 diabete s mellitu s with foot ulcer<b r/> NAIDL,KARI 11/06 [place] [facility] [facility] [place] [facility] MTMS BY PHARM ADDL 15 MIN [id number] Diagnos is: ICD-10- CM E11.42 Type 2 diabete s mellitu s with diabeti c polyneu ropathy
NAIDL,KARI 11/22 [place] [facility] [place] [facility] MTMS BY PHARM ADDL 15 MIN [id number] [phone] Diagnos is: ICD-10- CM E11.42 Type 2 diabete s mellitu s with diabeti c polyneu ropathy
NAIDL,KARI 01/17 [place] [facility] [place] [facility] Outpatient Encounter [id number] Diagnos is: ICD-10- CM E11.42 Type 2 diabete s mellitu s with diabeti c polyneu ropathy
MILAGRO TONEY 01/18 [facility] QNHP OL DIG ASSMT&MGMT 5-10 [id number] Diagnos is: ICD-10- CM E11.42 Type 2 diabete s mellitu s with diabeti c polyneu ropathy
MOE CHOWDHURY 01/18 [facility] IS [facility] MTMS BY PHARM EST 15 MIN [id number] [phone] Diagnos is: ICD-10- CM E11.42 Type 2 diabete s mellitu s with diabeti c polyneu ropathy
NAIDL,KARI 02/21 [facility] Outpatient Encounter [id number] RORY CAPPS 02/26 [facility] Social History Combined list of available smoking, tobacco, and other social history from Department of Defense and Veterans Affairs facilities. Social History Type Response Date Comment Sourc e Tobacco smoking status [facility] VA-TOBACCO QUIT 15 YRS OR MORE 08/18/2022 [facility] History of tobacco use IN-TOBACCO FORMER USER 08/18/2022 [facility] History of tobacco use VA-TOBACCO FORMER USER 05/03/2021 [facility] History of tobacco use VA-TOBACCO FORMER USER 04/21/2020 [facility] History of tobacco use FORMER TOBACCO US E >1Y <7Y 04/03/2018 [facility] History of tobacco use CURRENT TOBACCO USER 03/09/2007 [facility] Plan of Care List of future care activities from Department of Veterans Affairs facilities. Additional future care activities may be listed in the Assessment and Plan section. Date/Time Care Activity Care Activity Detail Facili ty 03/27/2024 AMBULATORY - NONE AMBULATORY - NONE [facility] Advance Directives List of completed, amended, or rescinded Advance Directives on record at Department of [facility] facilities. An actual copy of the Directive is not included. Date Advance Directive Provider Source 06/22/2021 ADVANCE DIRECTIVE DISCUSSION ALLYSON GRAF [facility] 06/22/2021 ADVANCE DIRECTIVE ALLYSON GRAF [facility] 03/09/2007 ADVANCE DIRECTIVE SOLEDAD WOLFF [facility]
--- OUTSIDE RECORDS SUMMARY | 2024-03-11 08:56 | XMS_ITS | Data Portability ---
Author Organization [place] [facility] Address [address] [place] [address] Care Team Providers Care Launch Manager Name Role Phone POST, SUE Primary Care Provider [phone] Assessment Encounter Date Assessment Date Assessment LastModified [...] of Hospitaliza tion for UTI. 2022 023 [facility], [address], [address], [place], [address], 3 10:05:08 urinalysis, dipstick 2022 023 [facility], [address], [place], [address], 12:03:37 Referral None recorded. Procedures None recorded. Surgeries None recorded. Imaging None recorded. Medication Orders None recorded. Patient TargetsNo targets recorded. Patient Instructions Encounter Date Encounter Id Patient Instructions Last Modified By Organization Details Last Modified Time 09/23/2022 [id number] Patient to call clinic with questions or concerns. Advised patient to increase water intake and to keep 4 week appointment for next catheter change. [email or web address] Not available 09/23/2022 13:22:30 11/04/2022 [id number] Pt has F/U appt with Dr Barrientos in [place] on 11/11/2022 @ 3:10pm to review UDS. Not available 10/19/2022 15:50:04 Reason for Referral None Reported. Results Created Date Observation Date Name Description Value Unit Range Abnormal Flag LastModifiedBy Organization Detail LastModifiedTime 11/05/1911/04/2022 URINE CULTU RE final report MICROB IOLOGY RESULT S abnormal Not Available [facility] [address], [place], [address], 11/07/2022 10:05:08 11/05/19 23 11/04/2022 urina lysis , dipst ick Color-Status Straw Not Available [facility] [address], [place], [address], 11/04/2022 12:02:10 11/05/19 23 11/04/2022 urina lysis , dipst ick Clarity-Stat us Slight ly Cloudy Not Available [facility] [address], [place], [address], 11/04/2022 12:02:10 11/05/19 23 11/04/2022 urina lysis , dipst ick Glucose-Stat us 500 Not Available [facility] [address], [place], [address], 11/04/2022 12:02:10 11/05/19 23 11/04/2022 urina lysis , dipst ick Bilirubin-St atus Negati ve Not Available [facility] [address], [place], [address], 11/04/2022 12:02:10 11/05/19 23 11/04/2022 urina lysis , dipst ick Ketones-Stat us Negati ve Not Available [facility] [address], [place], [address], 11/04/2022 12:02:10 11/05/19 23 11/04/2022 urina lysis , dipst ick Sp [place]-Stat us 1.015 Not Available [facility] [address], [place], [address], 11/04/2022 12:02:10 11/05/19 23 11/04/2022 urina lysis , dipst ick pH-Status 6.5 Not Available [facility] [address], [place], [address], 11/04/2022 12:02:10 11/05/19 23 11/04/2022 urina lysis , dipst ick Protein-Stat us 5.0 Not Available [facility] [address], [place], [address], 11/04/2022 12:02:10 11/05/19 23 11/04/2022 urina lysis , dipst ick Urobilinogen -Status 0.2 Not Available [facility] [address], [place], [address], 11/04/2022 12:02:10 11/05/19 23 11/04/2022 urina lysis , dipst ick Nitrates-Sta tus positi ve Not Available [facility] [address], [place], [address], 11/04/2022 12:02:10 11/05/19 23 11/04/2022 urina lysis , dipst ick Blood-Status Large Not Available [facility] [address], [place], [address], 11/04/2022 12:02:10 11/05/19 23 11/04/2022 urina lysis , dipst ick Leuko-Status Large Not Available [facility] [address], [place], [address], 11/04/2022 12:02:10 11/05/19 23 11/04/2022 urina lysis , dipst ick Specimen Type Cathet erized Not Available [facility] [address], [place], [address], 11/04/2022 12:02:10 11/05/19 23 11/04/2022 urina lysis , dipst ick Performed by Jake n1 Not Available [facility] [address], [place], [address], 11/04/2022 12:02:10 Result Notes None recorded. Problems Name Status Onset Date Resolution Date Notes Provider Name and Address Organization Details Recorded Time Ret[facility] of urine Active [facility] 13:15:43 Problem Notes None recorded. Procedures Surgical History Date Name Laterality Status Provider Name and Address Organization Details Recorded Time 3 Fill and Pull/Voiding Trial/TOV completed Jenna song [facility] 12/09/2022 11:59:45 3 Urodynamic Studies completed Deyanira song [facility] 11/04/2022 12:19:38 3 Gordon Catheter Insertion completed Deyanira song [facility] 11/04/2022 12:21:21 3 Urethral Catheter Change completed Jenna Harris null, [facility] 10/21/2022 13:18:32 3 Urethral Catheter Change completed Nenita Flores null, [facility] 09/23/2022 13:21:12 3 Gordon Catheter Insertion completed Roula Beltran null, [facility] 08/03/2022 11:16:51 3 Fill and Pull/Voiding Trial/TOV completed Roula Beltran null, [facility] 08/03/2022 11:16:41 2 Cystoscopy- male completed Kristopher Barrientos MD, PHD [address] [place] [address], [address], [facility] 06/30/2022 09:37:30 2 Urethral Catheter Change completed Carlos Mix null, [facility] 06/30/2022 09:49:15 2 Gordon Catheter Insertion completed Еленаarminda Josue [facility] 06/16/2022 15:03:22 2 Fill and Pull/Voiding Trial/TOV completed Roula Tony PA-C [address] [place] [address], [address], [facility] 06/16/2022 18:06:50 Cataract Surgery completed Stuttgartarminda Josue [facility] 06/16/2022 12:30:25 Orthopedic Surgery completed [place]inda Josue [facility] 06/16/2022 12:30:33 Imaging Results None [...] Updated DateTime 09/23/2022 180.34 cm Nenita Sandra [facility] 09/23/2022 13:17:39 Date Recorded Body height Body mass index (BMI) Body weight Provider Name and Address Organization Details Last Updated DateTime 11/11/2022 180.34 cm 30 kg/m2 26276.36 g Amanda Molina [facility] 11/11/2022 16:25:51 Social History Question Answer Notes LastModified by Organizat ion Details LastModified Time Tobacco Smoking Status [facility] 06/16/2022 12:29:38 What Is Your [...] Encounter Closed Date Diagnosis/Indication Diagnosis SNOMED-CT Code [id number] Roula Chavo, PA-C [facility] [address] [place] [address] 06/16/2022 11:30:09 06/20/2022 08:36:10 Retention of urine [id number] Benign pro static hyperplasia with outflow obstruction [id number] Kristopher bains MD, PHD [facility] [address] [place] [address] 06/30/2022 08:46:23 07/04/2022 11:29:58 Retention of urine [id number] Benign pro static hyperplasia with outflow obstruction [id number] Roula Beltran [facility] [address] [place] [address] 08/03/2022 10:27:16 08/05/2022 11:54:14 Retention of urine [id number] Nenitaaranza Flores [facility] [address] [place] [address] 09/23/2022 10:30:04 09/26/2022 14:37:37 [id number] Kristopher bains MD, PHD [facility] [address] [place] [address] 11/04/2022 10:41:00 11/10/2022 13:37:32 Benign prostatic hyperplasia with outflow obstruction 735592521 Retention of urine 49040 4002 Microscopic hematuria 19 8400778 [id number] Jenna Harris [facility] [address] [place] [address] 10/21/2022 11:27:55 10/24/2022 11:49:09 Retention of urine 457669198 [id number] Kristopher bains MD, PHD [facility] [address] [place] [address] 11/11/2022 16:25:28 11/17/2022 17:02:38 Retention of urine 205388821 Benign pro static hyperplasia with outflow obstruction [id number] Jenna Harris [facility] [address] [place] [address] 12/09/2022 10:56:01 12/12/2022 15:10:14 Retention of urine [id number] Health Concerns Section Related Observation LastModified by Organization Detai ls LastModified Time None Recorded Concern Status LastModified by Organization Details LastModified Time None Recorded Advance Directives Directive None Recorded Payers Encounter Date Sequence Insurance Name Policy Number Policy Molina Covered Member ID Molina Member ID Guarantor Name 09/23/2022 1 [place] [employer] Tom B Renaux [id number] Tom B Renaux 09/23/2022 2 [place] [id number] Tom B Renaux [id number] Tom B Renaux 10/21/2022 1 [place] [employer] Tom B Renaux [id number] Tom B Renaux 10/21/2022 2 [place] [id number] Tom B Renaux [id number] Tom B Renaux 11/04/2022 1 [place] [employer] Tom B Renaux [id number] Tom B Renaux 11/04/2022 2 [place] [id number] Tom B Renaux [id number] Tom B Renaux 11/11/2022 1 [place] [employer] Tom B Renaux [id number] Tom B Renaux 11/11/2022 2 [place] [id number] Tom B Renaux [id number] Tom B Renaux 12/09/2022 1 [place] [employer] Tom B Renaux [id number] Tom B Renaux 12/09/2022 2 [place] [id number] Tom B Renaux [id number] Tom B Renaux Notes Date Note Type [...] for next catheter change. OL[facility] 09/23/2022 13:22:32 10/21/2022 text/html HPI Notes: Pt he re for catheter change Jenna Harris OL[place] song [facility] 10/21/2022 13:21:54 11/11/2022 text/html HPI Notes: 77M w ith urinary retention. Hospitalization at [facility] from 04/30-05/30 for MSSA bacteremia [...] their care. Kristopher Barrientos MD, PHD [address], [place], [address], [facility] 11/11/2022 17:49:57 12/09/2022 text/html HPI Notes: Pt of Dr PALMER, here for TOV recommended at 11/11/22 visit Jenna song [facility] 12/09/2022 12:43:22
== END 2024-03-11 08:54 | disposition home or self-care (01) ==
LOC: WOUND 08:53
PROVIDERS: Visit Provider Nurse Practitioner Family
DX: E11.621 Type 2 diabetes mellitus with foot ulcer (principal); L97.512 Non-pressure chronic ulcer of other part of right foot with fat layer exposed; I89.0 Lymphedema, not elsewhere classified; Z79.84 Long term (current) use of oral hypoglycemic drugs
CPT/HCPCS: 11042

== ENCOUNTER 2024-03-19 13:40 | Outpatient (CLI) | payer MEDICARE, BC, SELFPAY ==
--- OUTSIDE RECORDS SUMMARY | 2024-03-19 13:54 | XMS_ITS | Continuity of Care Document ---
Author Name [facility] Organization [facility] Care Team Providers Care Drilling Engineering Manager Name Role Phone [facility] Unavailable Unavailable Problems Combined list of problems from Department of Defense and Veterans Affairs facilities. It does not include entries that were removed or entered in error. Problem Status Onset Date Problem Type Date of Resolution Comments Source Exposure to potentially hazardous substance ([facility] [id number]) Active 10/05/19 24 Condition Oct 05, 2023 Entered By: VIJI VIVAS Comment: [facility] Documentation Initiative [facility] Depressive Disorder NOS * (ICD-9-CM 311./300.4) Active Condition [facility] Diabetes mellitus (SNOMED CT 08521286) Active Condition [facility] Diabetic neuropathy Active Condition [facility] Foot Pain (ICD-9-CM 719.47) Active Condition Aug 26 10 Entered By: MALINA WORLEY Comment: left 5th metatarsal fracture [facility] History of amputation of lesser toe Active Condition [facility] Hyperlipidemia (SNOMED CT 36388964) Active Condition [facility] Hyperuricemia Active Condition [facility] Osteopenia Active Condition [facility] Other Iatrogenic Hypotension Active Condition [facility] Personal History of Alcoholism (ICD-9-CM V11.3) Active Condition [facility] Tobacco user (SNOMED CT 591521692) Active Condition [facility] Diagnosis: ICD-10-CM E11.42 Type 2 diabetes mellitus with diabetic polyneuropathy Active Diagnosis [facility] Diana [facility] Diagnosis: ICD-10-CM E11.621 Type 2 diabetes mellitus with foot ulcer Active Diagnosis [facility] Diagnosis: ICD-10-CM Z77.29 Contact with and exposure to other hazardous substances Active Diagnosis [facility] Medications Combined list of outpatient medications [...] ed by: CHARLEE FISH Document ed at: [facility] ORAL ACTIVE CHARLEE FISH 2022 [facility] ASPIRIN 81MG TAB,EC ASPIRIN 81MG TAB,EC Non-VA TAKE ONE TABLET BY MOUTH EVERY DAY Mar 13, 2007 Non-[place] Document ed by: MARY CHOUDHARY Document ed at: [facility] ORAL ACTIVE JEFF CHOUDHARY A 2006 [facility] ATORVASTATI N CA 40MG TAB ATORVAST ATIN CA 40MG TAB Active TAKE ONE TABLET BY MOUTH EVERY DAY FOR CHOLESTE ROL Apr 11, 2023 90 Apr 11, 2024 [id number] December 17, 2023 CHARLEE FISH [facility] ORAL ACTIVE 04/11/2024 [id number] CHARLEE FISH 2022 90 [facility] ATORVASTATI N CA 40MG TAB ATORVAST ATIN CA 40MG TAB Disconti nued TAKE ONE TABLET BY MOUTH EVERY DAY FOR CHOLESTE ROL Jul 14, 2022 90 Jul 15, 2023 [id number] Mar 31, 2023 NAIDL,TO DD [facility] ORAL DISCONT INUED 07/15/2023 [id number] NAIDL,TOD D 2022 90 [facility] CHOLECALCIF QUINTIN TAB CHOLECAL CIFEROL TAB Non-VA TAKE 5000 UNITS BY MOUTH EVERY DAY Aug 21, 2022 Non-VA Document ed by: CHARLEE FISH Document ed at: [facility] ORAL ACTIVE CHARLEE FISH 2022 [facility] COENZYME Q10 CAP/TAB COENZYME Q10 CAP/TAB Non-VA TAKE 1 CAPSULE BY MOUTH EVERY DAY Aug 21, 2022 Non-VA Document ed by: CHARLEE FISH Document ed at: [facility] ORAL ACTIVE CHARLEE FISH 2022 [facility] CYANOCOBALA MIN 1000MCG TAB CYANOCOB ALAMIN 1000MCG TAB Non-VA TAKE ONE TABLET BY MOUTH EVERY DAY Mar 09, 2022 Non-VA Document ed by: MAUREEN BRITO DD Document ed at: [facility] ORAL ACTIVE DEAN BRITO 2021 [facility] DICLOFENAC NA 1% GEL,TOP DICLOFEN AC NA 1% GEL,TOP Active APPLY 4 GRAMS TOPICALL Y FOUR TIMES A DAY NEEDED FOR JOINT PAIN JOINT PAIN Mar 22, 2023 100 Mar 22, 2024 [id number] Mar 22, 2023 FISH CHARLEE Bowers [facility] TOPICA L ACTIVE 03/22/2024 [id number] ABE CHARLEE A 2022 100 [facility] FINASTERIDE 5MG TAB FINASTER RACHEL 5MG TAB Active TAKE ONE TABLET BY MOUTH EVERY DAY FOR PROSTATE FOR PROSTATE Apr 11, 2023 90 Apr 11, 2024 [id number] Jan 08, 2024 CHARLEE FISH Robinson [facility] ORAL ACTIVE 04/11/2024 [id number] CHARLEE FISH 2022 90 [facility] FINASTERIDE 5MG TAB FINASTER RACHEL 5MG TAB Disconti nued TAKE ONE TABLET BY MOUTH EVERY DAY FOR PROSTATE FOR PROSTATE Jul 12, 2022 90 Jul 13, 2023 [id number] Mar 31, 2023 FISHCHARLEE Bowers [facility] ORAL DISCONT INUED 07/13/2023 [id number] ABE CHARLEE A 2021 90 [facility] FISH OIL 1000MG (500MG DHA/EPA) CAP,ORAL FISH OIL 1000MG (500MG DHA/EPA) CAP,ORAL Non-VA TAKE 1 CAPSULE BY MOUTH TWICE A DAY Mar 13, 2007 Non-VA Document ed by: MARY CHOUDHARY A Document ed at: [facility] ORAL ACTIVE JEFF CHOUDHARY 2006 [facility] INSULIN,GLA RGINE-YFGN 100UNIT/ML INJ PEN,3ML INSULIN, GLARGINE -YFGN 100UNIT/ ML INJ PEN,3ML Active INJECT 24 UNITS UNDER THE SKIN EVERY EVENING FOR DIABETES FOR DIABETES Aug 29, 2023 5 Aug 29, 2024 [id number] Mar 14, 2024 NAIDL,TO DD [facility] SUBCUT ANEOUS ACTIVE 08/29/2024 [id number] NAIDL,TOD D 2023 5 [facility] INSULIN,GLA RGINE-YFGN 100UNIT/ML INJ PEN,3ML INSULIN, GLARGINE -YFGN 100UNIT/ ML INJ PEN,3ML Disconti nued INJECT 22 UNITS UNDER THE SKIN AT BEDTIME FOR DIABETES FOR DIABETES Jan 06, 2023 5 Jan 07, 2024 [id number] Jul 25, 2023 NAIDL,TO DD [facility] SUBCUT ANEOUS DISCONT INUED (EDIT) 01/07/2024 [id number] NAIDL,TOD D 2022 5 [facility] INSULIN,GLA RGINE-YFGN 100UNIT/ML INJ PEN,3ML INSULIN, GLARGINE -YFGN 100UNIT/ ML INJ PEN,3ML Disconti nued INJECT 20 UNITS UNDER THE SKIN AT BEDTIME FOR DIABETES FOR DIABETES December 07, 2022 5 December 08, 2023 [id number] Jan 06, 2023 NAIDL,TO DD [facility] SUBCUT ANEOUS DISCONT INUED (EDIT) 12/08/2023 [id number] NAIDL,TOD D 2022 5 [facility] LIDOCAINE 4% CREAM,TOP LIDOCAIN E 4% CREAM,TO P Active APPLY MODERATE AMOUNT TOPICALL Y THREE TIMES A DAY FOR PAIN PAIN Mar 22, 2023 30 Mar 22, 2024 [id number] Mar 22, 2023 CHARLEE FISH [facility] TOPICA L ACTIVE 03/22/2024 [id number] CHARLEE FISH 2022 30 [facility] MAGNESIUM OXIDE 400MG TAB MAGNESIU M OXIDE 400MG TAB Non-VA TAKE ONE TABLET BY MOUTH EVERY DAY Aug 21, 2022 Non-VA Document ed by: CHARLEE FISH Document ed at: [facility] ORAL ACTIVE CHARLEE FISH 2022 [facility] MENTHOL/MET HYL SALICYLATE (10-15%) LOW CONC. CREAM,TOP MENTHOL/ METHYL SALICYLA TE (10-15%) LOW CONC. CREAM,TO P Active APPLY THIN LAYER TOPICALL Y THREE TIMES A DAY FOR MUSCLE PAIN MUSLCE PAIN Mar 22, 2023 90 Mar 22, 2024 [id number] Mar 22, 2023 CHARLEE FISH [facility] TOPICA L ACTIVE 03/22/2024 [id number] CHARLEE FISH 2022 90 [facility] METFORMIN HCL 1000MG TAB METFORMI N HCL 1000MG TAB Active TAKE ONE TABLET BY MOUTH TWICE A DAY FOR DIABETES Apr 11, 2023 180 Apr 11, 2024 [id number] Feb 19, 2024 CHARLEE FISH [facility] ORAL ACTIVE 04/11/2024 [id number] CHARLEE FISH 2022 180 [facility] METFORMIN HCL 1000MG TAB METFORMI N HCL 1000MG TAB Disconti nued TAKE ONE TABLET BY MOUTH TWICE A DAY FOR DIABETES Jul 14, 2022 180 Jul 15, 2023 [id number] Apr 06, 2023 NAIDL,TO DD [facility] ORAL DISCONT INUED 07/15/2023 [id number] NAIDL,TOD D 2022 180 [facility] OMEPRAZOLE 20MG CAP,EC OMEPRAZO LE 20MG CAP,EC Active TAKE ONE CAPSULE BY MOUTH EVERY DAY ON AN EMPTY STOMACH, AT LEAST 30 MINUTES PRIOR TO A MEAL FOR GERD GERD Mar 22, 2023 90 Mar 22, 2024 [id number] December 22, 2023 CHARLEE FISH [facility] ORAL ACTIVE 03/22/2024 [id number] CHARLEE FISH 2022 90 [facility] SEMAGLUTIDE 1MG/0.75ML INJ,SOLN,PE N,3ML SEMAGLUT RACHEL 1MG/0.75 ML INJ,SOLN ,PEN,3ML Active INJECT 1MG UNDER THE SKIN EVERY WEEK FOR DIABETES FOR DIABETES Nov 07, 2023 1 Nov 07, 2024 [id number] Mar 12, 2024 NAIDL,TO DD [facility] SUBCUT ANEOUS ACTIVE 11/07/2024 [id number] NAIDL,TOD D 2023 1 [facility] SEMAGLUTIDE 1MG/0.75ML INJ,SOLN,PE N,3ML SEMAGLUT RACHEL 1MG/0.75 ML INJ,SOLN ,PEN,3ML Disconti nued INJECT 1MG UNDER THE SKIN EVERY WEEK FOR DIABETES FOR DIABETES Nov 07, 2022 1 Nov 08, 2023 [id number] Nov 06, 2023 NAIDL,TO DD [facility] SUBCUT ANEOUS DISCONT INUED 11/08/2023 [id number] NAIDL,TOD D 2022 1 [facility] TAMSULOSIN HCL 0.4MG CAP TAMSULOS IN HCL 0.4MG CAP Active TAKE ONE CAPSULE BY MOUTH EVERY EVENING PROSTATE Apr 13, 2023 30 Apr 13, 2024 [id number] Mar 14, 2024 CHARLEE FISH [facility] ORAL ACTIVE 04/13/2024 [id number] CHARLEE FISH 2022 30 [facility] TAMSULOSIN HCL 0.4MG CAP TAMSULOS IN HCL 0.4MG CAP Disconti nued TAKE ONE CAPSULE BY MOUTH EVERY EVENING PROSTATE Apr 11, 2023 90 Apr 11, 2024 [id number] Apr 21, 2023 CHARLEE FISH [facility] ORAL DISCONT INUED 04/11/2024 [id number] CHARLEE FISH 2022 90 [facility] TAMSULOSIN HCL 0.4MG CAP TAMSULOS IN HCL 0.4MG CAP Disconti nued TAKE ONE CAPSULE BY MOUTH EVERY EVENING PROSTATE Aug 03, 2022 90 Aug 04, 2023 [id number] Jan 21, 2023 CHARLEE FISH [facility] ORAL DISCONT INUED 08/04/2023 [id number] CHARLEE FISH 2022 90 [facility] TURMERIC CAP/TAB TURMERIC CAP/TAB Non-VA TAKE 500 MG BY MOUTH TWICE A DAY Apr 22, 2019 Non-VA Document ed by: MATTY WOO Document ed at: [facility] ORAL ACTIVE MATTY POWERS 2018 [facility] Allergies, Adverse Reactions, Alerts Combined list of allergies from Department of Defense and Veterans Affairs facilities. It does not include entries that were removed or entered in error. Substance Category Reaction Severity Reaction type Status Date Reported Comments Source VANCOMYCIN Propensity to adverse reactions to drug (finding) [place] active 8 [facility] Immunizations Combined list of available immunizations from the Department of [facility] and Veterans Affairs facilities. Immunization Series Date Given Administered By Site Reaction Lot Number CVX Code Drug Layout Inspector Status Comments Source ZOSTER RECOMBINANT 2 2019 187 complet ed [facility] INFLUENZA, INJECTABLE, QUADRIVALENT, PRESERVATIVE FREE 2019 150 complet ed [facility] ZOSTER RECOMBINANT 1 2019 187 complet ed [facility] INFLUENZA, HIGH-DOSE, QUADRIVALENT 2019 197 complet ed [facility] INFLUENZA, SEASONAL, INJECTABLE, PRESERVATIVE FREE 2017 140 complet ed [facility] INFLUENZA, INJECTABLE, QUADRIVALENT, PRESERVATIVE FREE 2017 150 complet ed [facility] INFLUENZA, INJECTABLE, QUADRIVALENT, PRESERVATIVE FREE 2015 150 complet ed [facility] TDAP 2015 115 complet ed [facility] TA PNEUMOCOCCAL CONJUGATE PCV 13 2015 133 complet ed [facility] TD (ADULT), 5 LF TETANUS TOXOID, PRESERVATIVE FREE, ADSORBED 2015 113 complet ed [facility] INFLUENZA, INJECTABLE, QUADRIVALENT, PRESERVATIVE FREE 2013 150 complet ed [facility] PNEUMOCOCCAL POLYSACCHARID E PPV23 2010 33 complet ed [facility] INFLUENZA, UNSPECIFIED FORMULATION 2006 88 complet ed [facility] PNEUMOCOCCAL, UNSPECIFIED FORMULATION 2006 109 complet ed [facility] TD(ADULT) UNSPECIFIED FORMULATION 2006 NONE 139 complet ed [facility] TETANUS TOXOID, UNSPECIFIED FORMULATION 2006 NONE 112 complet [facility] Results Combined list of recent chemistry, [...] 03:48 PM Reporting Lab: [facility] [address] Performing Lab: [facility] [address] [facility] BASIC METABOLIC PANEL+MG CREATININE [MASS/VOLUM E] IN SERUM OR PLASMA 1.2 mg/dL 0.7 - 1.2 03/22 Specimen Type: PLASMA No comment entered. Ordering Provider: ME LEEROY FISH Report Released Date/Time: Aug 21, 2022 03:48 PM Reporting Lab: [facility] [address] Performing Lab: [facility] [address] [place] [facility] BASIC METABOLIC PANEL+MG UREA NITROGEN [MASS/VOLUM E] IN SERUM OR PLASMA 15 mg/dL 8 - 03/22 Specimen Type: PLASMA No comment entered. Ordering Provider: ME LEEROY FISH Report Released Date/Time: Aug 21, 2022 03:48 PM Reporting Lab: [facility] [address] Performing Lab: [facility] [address] [place] [facility] BASIC METABOLIC PANEL+MG GLUCOSE [MASS/VOLUM E] IN SERUM OR PLASMA 145 mg/dL 70 - 100 03/22 H Specimen Type: PLASMA No comment entered. Ordering Provider: ME LEEROY FISH Report Released Date/Time: Aug 21, 2022 03:48 PM Reporting Lab: [facility] [address] Performing Lab: [facility] [address] [place] [facility] BASIC METABOLIC PANEL+MG SODIUM [MOLES/VOLU ME] IN SERUM OR PLASMA 138 mmol/L 136 - 145 03/22 Specimen Type: PLASMA No comment entered. Ordering Provider: ME LEEROY FISH Report Released Date/Time: Aug 21, 2022 03:48 PM Reporting Lab: [facility] [address] Performing Lab: [facility] [address] [place] [facility] BASIC METABOLIC PANEL+MG POTASSIUM [MOLES/VOLU ME] IN SERUM OR PLASMA 4.5 mmol/L 3.5 - 5.1 03/22 Specimen Type: PLASMA No comment entered. Ordering Provider: ME LEEROY FISH Report Released Date/Time: Aug 21, 2022 03:48 PM Reporting Lab: [facility] [address] Performing Lab: [facility] [address] [place] [facility] BASIC METABOLIC PANEL+MG CHLORIDE [MOLES/VOLU ME] IN SERUM OR PLASMA 101 mmol/L 98 - 107 03/22 Specimen Type: PLASMA No comment entered. Ordering Provider: ME LEEROY FISH Report Released Date/Time: Aug 21, 2022 03:48 PM Reporting Lab: [facility] [address] Performing Lab: [facility] [address] [place] [facility] BASIC METABOLIC PANEL+MG CARBON DIOXIDE, TOTAL [MOLES/VOLU ME] IN SERUM OR PLASMA 27 mmol/L 22 - 29 03/22 Specimen Type: PLASMA No comment entered. Ordering Provider: ME LEEROY FISH Report Released Date/Time: Aug 21, 2022 03:48 PM Reporting Lab: [facility] [address] Performing Lab: [facility] [address] [place] [facility] BASIC METABOLIC PANEL+MG CALCIUM [MASS/VOLUM E] IN SERUM OR PLASMA 10.0 mg/dL 8.4 - 10.2 03/22 Specimen Type: PLASMA No comment entered. Ordering Provider: ME LEEROY FISH Report Released Date/Time: Aug 21, 2022 03:48 PM Reporting Lab: [facility] [address] Performing Lab: [facility] [address] [place] [facility] BASIC METABOLIC PANEL+MG MAGNESIUM [MASS/VOLUM E] IN SERUM OR PLASMA 1.9 mg/dL 1.6 - 2.6 03/22 Specimen Type: PLASMA No comment entered. Ordering Provider: ME LEEROY FISH Report Released Date/Time: Aug 21, 2022 03:48 PM Reporting Lab: [facility] [address] Performing Lab: [facility] [address] [place] [facility] BASIC METABOLIC PANEL+MG ANION GAP IN SERUM OR PLASMA 10 mmol/L 5 - 15 03/22 Specimen Type: PLASMA No comment entered. Ordering Provider: ME LEEROY FISH Report Released Date/Time: Aug 21, 2022 03:48 PM Reporting Lab: [facility] [address] Performing Lab: [facility] [address] [place] [facility] BASIC METABOLIC PANEL+MG GLOMERULAR FILTRATION RATE/1.73 SQ M.PREDICTED [VOLUME RATE/AREA] IN SERUM, PLASMA OR BLOOD BY CREATININE- BASED FORMULA (CKD-EPI 2020) 63 60 03/22 Specimen Type: PLASMA No comment entered. Ordering Provider: ME LEEROY FISH Report Released Date/Time: Aug 21, 2022 03:48 PM Reporting Lab: [facility] [address] Performing Lab: [facility] [address] [place] [facility] HEMOGLOBI N A1C HEMOGLOBIN A1C/HEMOGLO BIN.TOTAL [...] December 22, 2021 03:46 PM Reporting Lab: [address] Performing Lab: [facility] [address] [place] [facility] BASIC METABOLIC PANEL+MG CREATININE [MASS/VOLUM E] IN SERUM OR PLASMA 0.9 mg/dL 0.7 - 1.2 08/18 Specimen Type: PLASMA No comment entered. Ordering Provider: ME LEEROY FISH Report Released Date/Time: December 22, 2021 03:46 PM Reporting Lab: [place] [address] Performing Lab: [place] [address] [place] [facility] BASIC METABOLIC PANEL+MG UREA NITROGEN [MASS/VOLUM E] IN SERUM OR PLASMA 12 mg/dL 8 - 26 08/18 Specimen Type: PLASMA No comment entered. Ordering Provider: ME LEEROY FISH Report Released Date/Time: December 22, 2021 03:46 PM Reporting Lab: [facility] [address] Performing Lab: [facility] [address] [place] [facility] BASIC METABOLIC PANEL+MG GLUCOSE [MASS/VOLUM E] IN SERUM OR PLASMA 184 mg/dL 70 - 100 08/18 H Specimen Type: PLASMA No comment entered. Ordering Provider: ME LEEROY FISH Report Released Date/Time: December 22, 2021 03:46 PM Reporting Lab: [facility] [address] Performing Lab: [facility] [address] [place] [facility] BASIC METABOLIC PANEL+MG SODIUM [MOLES/VOLU ME] IN SERUM OR PLASMA 137 mmol/L 136 - 145 08/18 Specimen Type: PLASMA No comment entered. Ordering Provider: FSIH,ME LODY A Report Released Date/Time: December 22, 2021 03:46 PM Reporting Lab: [facility] [address] Performing Lab: [facility] [address] [place] [facility] BASIC METABOLIC PANEL+MG POTASSIUM [MOLES/VOLU ME] IN SERUM OR PLASMA 3.9 mmol/L 3.5 - 5.1 08/18 Specimen Type: PLASMA No comment entered. Ordering Provider: ME LEEROY FISH Report Released Date/Time: December 22, 2021 03:46 PM Reporting Lab: [facility] [address] Performing Lab: [facility] [address] [place] [facility] BASIC METABOLIC PANEL+MG CHLORIDE [MOLES/VOLU ME] IN SERUM OR PLASMA 102 mmol/L 98 - 107 08/18 Specimen Type: PLASMA No comment entered. Ordering Provider: ME LEEROY FISH Report Released Date/Time: December 22, 2021 03:46 PM Reporting Lab: [facility] [address] Performing Lab: [facility] [address] [place] [facility] BASIC METABOLIC PANEL+MG CARBON DIOXIDE, TOTAL [MOLES/VOLU ME] IN SERUM OR PLASMA 26 mmol/L 22 - 29 08/18 Specimen Type: PLASMA No comment entered. Ordering Provider: ME LEEROY FISH Report Released Date/Time: December 22, 2021 03:46 PM Reporting Lab: [facility] [address] Performing Lab: [facility] [address] [place] [facility] BASIC METABOLIC PANEL+MG CALCIUM [MASS/VOLUM E] IN SERUM OR PLASMA 9.4 mg/dL 8.4 - 10.2 08/18 Specimen Type: PLASMA No comment entered. Ordering Provider: ME LEEROY FISH Report Released Date/Time: December 22, 2021 03:46 PM Reporting Lab: [facility] [address] Performing Lab: [facility] [address] [place] [facility] BASIC METABOLIC PANEL+MG MAGNESIUM [MASS/VOLUM E] IN SERUM OR PLASMA 1.6 mg/dL 1.6 - 2.6 08/18 Specimen Type: PLASMA No comment entered. Ordering Provider: ME LEEROY FISH Report Released Date/Time: December 22, 2021 03:46 PM Reporting Lab: [facility] [address] Performing Lab: [facility] [address] [place] [facility] BASIC METABOLIC PANEL+MG ANION GAP IN SERUM OR PLASMA 9 mmol/L 5 - 15 08/18 Specimen Type: PLASMA No comment entered. Ordering Provider: ME LEEROY FISH Report Released Date/Time: December 22, 2021 03:46 PM Reporting Lab: [facility] [address] Performing Lab: [facility] [address] [place] [facility] BASIC METABOLIC PANEL+MG GLOMERULAR FILTRATION RATE/1.73 SQ M.PREDICTED [VOLUME RATE/AREA] IN SERUM, PLASMA OR BLOOD BY CREATININE- BASED FORMULA (CKD-EPI) 89 60 08/18 Specimen Type: PLASMA No comment entered. Ordering Provider: ME LEEROY FISH Report Released Date/Time: December 22, 2021 03:46 PM Reporting Lab: [facility] [address] Performing Lab: [facility] [address] [place] [facility] Vital Signs Combined list of inpatient [...] DC Date Status Disposition Source [place] [facility] PRO PHONE CALL 11-20 MIN [id number] Diagnos is: ICD-10- CM E11.42 Type 2 diabete s mellitu s with diabeti c polyneu ropathy
NAKARI DSOUZA 09/29 [facility] [place] [facility] PRO PHONE CALL 21-30 MIN [id number] Diagnos is: ICD-10- CM E11.42 Type 2 diabete s mellitu s with diabeti c polyneu ropathy
NAIDL,KARI 11/07 [facility] PRO PHONE CALL 11-20 MIN [id number] Diagnos is: ICD-10- CM E11.42 Type 2 diabete s mellitu s with diabeti c polyneu ropathy
NAIDL,KARI 12/07 [facility] Outpatient Encounter [id number] Diagnos is: ICD-10- CM Z77.29 Contact with and exposur e to other [facility]<br/ > [facility]27 [facility] Outpatient Encounter [id number] Diagnos is: ICD-10- CM Z77.29 Contact with and exposur e to other [facility]stan [facility]<br/ > JEANINE,MATH ILDE J 12/27 [facility] HC PRO PHONE CALL 11-20 MIN [id number] Diagnos is: ICD-10- CM E11.42 Type 2 diabete s mellitu s with diabeti c polyneu ropathy
NAIDL,KARI 01/06 [facility] Outpatient Encounter [id number] 03/10 [facility] HC PRO PHONE CALL 11-20 MIN [id number] Diagnos is: ICD-10- CM E11.42 Type 2 diabete s mellitu s with diabeti c polyneu ropathy
NAIDL,KARI 03/14 [facility] OFFICE O/P EST LOW 20-29 MIN [id number] Diagnos is: ICD-10- CM E11.621 Type 2 diabete s mellitu s with foot ulcer<b r/> Rhiannon FISH MAEVE Robinson 03/22 [place] [facility] [place] [facility] HC PRO PHONE CALL 21-30 MIN [id number] Diagnos is: ICD-10- CM E11.42 Type 2 diabete s mellitu s with diabeti c polyneu ropathy
NAIDL,KARI 04/18 [place] [facility] [place] [facility] HC PRO PHONE CALL 21-30 MIN [id number] Diagnos is: ICD-10- CM E11.42 Type 2 diabete s mellitu s with diabeti c polyneu ropathy
NAIDL,KARI 07/11 [place] [facility] [place] [facility] MTMS BY PHARM ADDL 15 MIN [id number] Diagnos is: ICD-10- CM E11.42 Type 2 diabete s mellitu s with diabeti c polyneu ropathy
NAIDL,KARI 08/29 [place] [facility] [place] [facility] MTMS BY PHARM EST 15 MIN [id number] Diagnos is: ICD-10- CM E11.42 Type 2 diabete s mellitu s with diabeti c polyneu ropathy
AWSOLEDAD BUCKLEY 10/10 [place] [facility] [place] [facility] Outpatient Encounter [id number] 10/16 [place] [facility] [place] [facility] MTMS BY PHARM EST 15 MIN [id number] Diagnos is: ICD-10- CM E11.621 Type 2 diabete s mellitu s with foot ulcer<b r/> NAIDL,KARI 11/06 [place] [facility] [place] [facility] MTMS BY PHARM ADDL 15 MIN [id number] Diagnos is: ICD-10- CM E11.42 Type 2 diabete s mellitu s with diabeti c polyneu ropathy
NAIDL,KARI 11/22 [place] [facility] [place] [facility] MTMS BY PHARM ADDL 15 MIN [id number] Diagnos is: ICD-10- CM E11.42 Type 2 diabete s mellitu s with diabeti c polyneu ropathy
NAIDL,KARI 01/17 [place] [facility] [place] [facility] Outpatient Encounter [id number] Diagnos is: ICD-10- CM E11.42 Type 2 diabete s mellitu s with diabeti c polyneu ropathy
MILAGRO TONEY 01/18 [place] [facility] QNHP OL DIG ASSMT&MGMT 5-10 [id number] Diagnos is: ICD-10- CM E11.42 Type 2 diabete s mellitu s with diabeti c polyneu ropathy
MOE CHOWDHURY 01/18 [facility] MTMS BY PHARM EST 15 MIN [id number] Diagnos is: ICD-10- CM E11.42 Type 2 diabete s mellitu s with diabeti c polyneu ropathy
NAIDL,KARI 02/21 [facility] Outpatient Encounter [id number] RORY CAPPS 02/26 [facility] Outpatient Encounter [id number] 03/14 [facility] Social History Combined list of available smoking, tobacco, and other social history from Department of Defense and [facility] Affairs facilities. Social History Type Response Date Comment Sourc e Tobacco smoking status NHIS VA-TOBACCO QUIT 15 YRS OR MORE 08/18/2022 [facility] History of tobacco use CO-TOBACCO FORMER USER 08/18/2022 [facility] History of tobacco use VA-TOBACCO FORMER USER 05/03/2021 [facility] History of tobacco use VA-TOBACCO FORMER USER 04/21/2020 [facility] History of tobacco use FORMER TOBACCO US E >1Y <7Y 04/03/2018 [facility] History of tobacco use CURRENT TOBACCO USER 03/09/2007 [facility] Plan of Care List of future care activities from Department [facility] facilities. Additional future care activities may be listed in the Assessment and Plan section. Date/Time Care Activity Care Activity Detail Facili ty 03/27/2024 AMBULATORY - NONE AMBULATORY - NONE [facility] Advance Directives List of completed, amended, or rescinded Advance Directives on record at [facility] facilities. An actual copy of the Directive is not included. Date Advance Directive Provider Source 06/22/2021 ADVANCE DIRECTIVE DISCUSSION ALLYSON GRAF [facility] 06/22/2021 ADVANCE DIRECTIVE [facility] 03/09/2007 ADVANCE DIRECTIVE SOLEDAD WOLFF [facility]
--- OUTSIDE RECORDS SUMMARY | 2024-03-19 13:54 | XMS_ITS | Clinical Summary ---
Author Organization [facility] Address [address] [place] [address] Care Team Providers Care Mine Expert Name Role Phone Post, Dave Wakefield Primary Care Provider [phone] Medications Medication Sig Dispensed Refills Start [...] Comments Blood Pressure 148/85 06/26/2018 5:58 PM VIDEOTAPE OPERATOR Pulse 90 06/26/2018 5:58 PM VIDEOTAPE OPERATOR Temperature 36.6 ??C (97.8 ??F) 06/26/2018 5:58 PM CS T Respiratory Rate 18 06/26/2018 5:58 PM VIDEOTAPE OPERATOR Oxygen Saturation 95% 06/26/2018 7:00 PM VIDEOTAPE OPERATOR Inhaled Oxygen Concentration - - Weight 112 kg (247 lb) 06/26/2018 5:58 PM VIDEOTAPE OPERATOR Height 180.3 cm (5' 11) 06/26/2018 5:58 PM VIDEOTAPE OPERATOR Body Mass Index 34.45 06/26/2018 5:58 PM VIDEOTAPE OPERATOR Plan of Treatment Not on file Care Teams Mine Expert Relationship Specialty Start Date End Date Post, Dave Wakefield PCP - General Internal Medicine 06/26/18
--- OUTSIDE RECORDS SUMMARY | 2024-03-19 13:54 | XMS_ITS | Referral Summary ---
Author Organization [facility] Address [address] [place] [address] Care Team Providers Care Home Fire Alarm Installer Name Role Phone Post, Dave Wakefield Primary Care Provider [phone] Medications Medication Sig Dispensed Refills Start Date [...] Comments Blood Pressure 148/85 06/26/2018 5:58 PM SHIP BOAT OR BARGE MATE Pulse 90 06/26/2018 5:58 PM SHIP BOAT OR BARGE MATE Temperature 36.6 ??C (97.8 ??F) 06/26/2018 5:58 PM CS T Respiratory Rate 18 06/26/2018 5:58 PM SHIP BOAT OR BARGE MATE Oxygen Saturation 95% 06/26/2018 7:00 PM SHIP BOAT OR BARGE MATE Inhaled Oxygen Concentration - - Weight 112 kg (247 lb) 06/26/2018 5:58 PM SHIP BOAT OR BARGE MATE Height 180.3 cm (5' 11) 06/26/2018 5:58 PM SHIP BOAT OR BARGE MATE Body Mass Index 34.45 06/26/2018 5:58 PM SHIP BOAT OR BARGE MATE Plan of Treatment Not on file Care Teams Home Fire Alarm Installer Relationship Specialty Start Date End Date Post, Dave Wakefield PCP - General Internal Medicine 06/26/18
--- OUTSIDE RECORDS SUMMARY | 2024-03-19 13:54 | XMS_ITS | Data Portability ---
Author Organization [place] [facility] Address [address] [place] [address] Care Team Providers Care Business Intelligence Director Name Role Phone POST, SUE Primary Care Provider [phone] Assessment Encounter Date Assessment Date Assessment LastModified [...] Hospitaliza tion for UTI. [address] [facility], [address], [place], [address], 3 10:05:08 urinalysis, dipstick 2022 023 [facility], [address], [place], [address], 12:03:37 Referral None recorded. Procedures None recorded. Surgeries None recorded. Imaging None recorded. Medication Orders None recorded. Patient TargetsNo targets recorded. Patient Instructions Encounter Date Encounter Id Patient Instructions Last Modified By Organization Details Last Modified Time 09/23/2022 [id number] Patient to call clinic with questions or concerns. Advised patient to increase water intake and to keep 4 week appointment for next catheter change. [email or web address] Not available 09/23/2022 13:22:30 11/04/2022 [id number] Pt has F/U appt with Dr Barrientos in [place] on 11/11/2022 @ 3:10pm to review UDS. Not available 10/19/2022 15:50:04 Reason for Referral None Reported. Results Created Date Observation Date Name Description Value Unit Range Abnormal Flag LastModifiedBy Organization Detail LastModifiedTime 11/05/1911/04/2022 URINE CULTU RE final report MICROB IOLOGY RESULT S abnormal Not Available [facility] [address], [place], [address], 11/07/2022 10:05:08 11/05/19 23 11/04/2022 urina lysis , dipst ick Color-Status Straw Not Available [facility] [address], [place], [address], 11/04/2022 12:02:10 11/05/19 23 11/04/2022 urina lysis , dipst ick Clarity-Stat us Slight ly Cloudy Not Available [facility] [address], [place], [address], 11/04/2022 12:02:10 11/05/19 23 11/04/2022 urina lysis , dipst ick Glucose-Stat us 500 Not Available [facility] [address], [place], [address], 11/04/2022 12:02:10 11/05/19 23 11/04/2022 urina lysis , dipst ick Bilirubin-St atus Negati ve Not Available [facility] [address], [place], [address], 11/04/2022 12:02:10 11/05/19 23 11/04/2022 urina lysis , dipst ick Ketones-Stat us Negati ve Not Available [facility] [address], [place], [address], 11/04/2022 12:02:10 11/05/19 23 11/04/2022 urina lysis , dipst ick Sp De Queen-Stat us 1.015 Not Available [facility] [address], [place], [address], 11/04/2022 12:02:10 11/05/19 23 11/04/2022 urina lysis , dipst ick pH-Status 6.5 Not Available [facility] [address], [place], [address], 11/04/2022 12:02:10 11/05/19 23 11/04/2022 urina lysis , dipst ick Protein-Stat us 5.0 Not Available [facility] [address], [place], [address], 11/04/2022 12:02:10 11/05/19 23 11/04/2022 urina lysis , dipst ick Urobilinogen -Status 0.2 Not Available [facility] [address], [place], [address], 11/04/2022 12:02:10 11/05/19 23 11/04/2022 urina lysis , dipst ick Nitrates-Sta tus positi ve Not Available [facility] [address], [place], [address], 11/04/2022 12:02:10 11/05/19 23 11/04/2022 urina lysis , dipst ick Blood-Status Large Not Available [facility] [address], [place], [address], 11/04/2022 12:02:10 11/05/19 23 11/04/2022 urina lysis , dipst ick Leuko-Status Large Not Available [facility] [address], [place], [address], 11/04/2022 12:02:10 11/05/19 23 11/04/2022 urina lysis , dipst ick Specimen Type Cathet erized Not Available [facility] [address], [place], [address], 11/04/2022 12:02:10 11/05/19 23 11/04/2022 urina lysis , dipst ick Performed by Jake n1 Not Available [facility] [address], [place], [address], 11/04/2022 12:02:10 Result Notes None recorded. Problems Name Status Onset Date Resolution Date Notes Provider Name and Address Organization Details Recorded Time Retention of urine Active [address] [facility] 10/21/2022 13:15:43 Problem Notes None recorded. Procedures Surgical History Date Name Laterality Status Provider Name and Address Organization Details Recorded Time 3 Fill and Pull/Voiding Trial/TOV completed Jenna song [facility] 12/09/2022 11:59:45 3 Urodynamic Studies completed Deyanira song [facility] 11/04/2022 12:19:38 3 Gordon Catheter Insertion completed Deyanira song [facility] 11/04/2022 12:21:21 3 Urethral Catheter Change completed Jenna Harris null, [facility] 10/21/2022 13:18:32 3 Urethral Catheter Change completed Nenita Flores null, [facility] 09/23/2022 13:21:12 3 Gordon Catheter Insertion completed Roula Beltran null, [facility] 08/03/2022 11:16:51 3 Fill and Pull/Voiding Trial/TOV completed Roula Beltran null, [facility] 08/03/2022 11:16:41 2 Cystoscopy- male completed Kristopher Barrientos MD, PHD [address] [place] [address], [address], [facility] 06/30/2022 09:37:30 2 Urethral Catheter Change completed Carlos Mix null, [facility] 06/30/2022 09:49:15 2 Gordon Catheter Insertion completed Еленаarminda Josue [facility] 06/16/2022 15:03:22 2 Fill and Pull/Voiding Trial/TOV completed Roula Tony PA-C [address] [place] [address], [address], [facility] 06/16/2022 18:06:50 Cataract Surgery completed Elcoarminda Josue [facility] 06/16/2022 12:30:25 Orthopedic Surgery completed Elcoarminda Josue [facility] 06/16/2022 12:30:33 Imaging Results None recorded. [...] Updated DateTime 09/23/2022 180.34 cm Nenita Sandra [facility] 09/23/2022 13:17:39 Date Recorded Body height Body mass index (BMI) Body weight Provider Name and Address Organization Details Last Updated DateTime 11/11/2022 180.34 cm 30 kg/m2 28379.36 g Amanda Molina [facility] 11/11/2022 16:25:51 Social History Question Answer Notes LastModified by Organizat ion Details LastModified Time Tobacco Smoking Status Former [facility] 06/16/2022 12:29:38 What Is [...] Encounter Closed Date Diagnosis/Indication Diagnosis SNOMED-CT Code [id number] Roula Chavo, PA-C [facility] [address] [place] [address] 06/16/2022 11:30:09 06/20/2022 08:36:10 Retention of urine [id number] Benign pro static hyperplasia with outflow obstruction [id number] Kristopher bains MD, PHD [facility] [address] [place] [address] 06/30/2022 08:46:23 07/04/2022 11:29:58 Retention of urine 424130602 Benign pro static hyperplasia with outflow obstruction 821376034 [id number] Roula Beltran [facility] [address] [place] [address] 08/03/2022 10:27:16 08/05/2022 11:54:14 Retention of urine 928914047 [id number] Nenitaaranza Flores [facility] [address] [place] [address] 09/23/2022 10:30:04 09/26/2022 14:37:37 [id number] Kristopher bains MD, PHD [facility] [address] [place] [address] 11/04/2022 10:41:00 11/10/2022 13:37:32 Benign prostatic hyperplasia with outflow obstruction 013941229 Retention of urine 08260 4002 Microscopic hematuria 19 0181103 [id number] Jenna Harris [facility] [address] [place] [address] 10/21/2022 11:27:55 10/24/2022 11:49:09 Retention of urine 887378869 [id number] Kristopher bains MD, PHD [facility] [address] [place] [address] 11/11/2022 16:25:28 11/17/2022 17:02:38 Retention of urine 681679800 Benign pro static hyperplasia with outflow obstruction 902741877 [id number] Jenna Harris [facility] [address] [place] [address] 12/09/2022 10:56:01 12/12/2022 15:10:14 Retention of urine [id number] Health Concerns Section Related Observation LastModified by Organization Detai ls LastModified Time None Recorded Concern Status LastModified by Organization Details LastModified Time None Recorded Advance Directives Directive None Recorded Payers Encounter Date Sequence Insurance Name Policy Number Policy Molina Covered Member ID Molina Member ID Guarantor Name 09/23/2022 1 [place] [employer] Tom B Renaux [id number] Tom B Renaux 09/23/2022 2 [place] [id number] Tom B Renaux [id number] Tom B Renaux 10/21/2022 1 [place] [employer] Tom B Renaux [id number] Tom B Renaux 10/21/2022 2 [place] [id number] Tom B Renaux [id number] Tom B Renaux 11/04/2022 1 [place] [employer] Tom B Renaux [id number] Tom B Renaux 11/04/2022 2 [place] [id number] Tom B Renaux [id number] Tom B Renaux 11/11/2022 1 [place] [employer] Tom B Renaux [id number] Tom B Renaux 11/11/2022 2 [place] [id number] Tom B Renaux [id number] Tom B Renaux 12/09/2022 1 [place] [employer] Tom B Renaux [id number] Tom B Renaux 12/09/2022 2 [place] [id number] Tom B Renaux [id number] Tom B Renaux Notes Date Note Type [...] for catheter change Jenna Harris OLMAN song [facility] 10/21/2022 13:21:54 11/11/2022 text/html HPI Notes: 77M w ith urinary retention. Hospitalization at [facility] from 04/30-05/30 for MSSA bacteremia with [...] their care. Kristopher Barrientos MD, PHD [address], [place], [address], [facility] 11/11/2022 17:49:57 12/09/2022 text/html HPI Notes: Pt of Dr PALMER, here for TOV recommended at 11/11/22 visit Jenna song [facility] 12/09/2022 12:43:22
--- OUTSIDE RECORDS SUMMARY | 2024-03-19 13:54 | XMS_ITS | Clinical Summary ---
Author Organization [facility] Address [place], [place] [address] Care Team Providers Care Summer Law Associate Name Role Phone Post, Dave Velazquez MD Primary Care Provider Moshe Enciso MD Unavailable Arie Justin MD Unavailable [phone] [facility], [facility] Unavailable Murali Hoover DPM Unavailable [phone] Allergies No known active allergies Medications [...] to Care Guide Pamella Brennan Phone number [phone]. Alcohol abuse 06/02/2010 03/26/2019 Overview: Sober since [...] 36.7 ??C (98 ??F) 06/29/2022 8:43 AM PURCHASING SPECIALIST Respiratory Rate 18 06/29/2022 8:43 AM PURCHASING SPECIALIST Oxygen Saturation 96% 07/21/2023 1:34 PM PURCHASING SPECIALIST Inhaled Oxygen Concentration - - Weight 107 kg (236 lb) 11/03/2023 11:13 AM CDT w ith shoes Height 180.3 cm (5' 10.98) 07/21/2023 1:[address] Body Mass Index 32.93 07/21/2023 1:34 PM PURCHASING SPECIALIST Plan of Treatment Health Maintenance Due [...] 07/16/2020, 04/21/2020 Medical Devices Implanted Type Area Csw Device Identifier Shelf Expiration Date Model / Serial / Lot [id number] - [id number] Implanted:Qty: 1 on 09/20/2021 at [facility] Right: Foot [employer] AR-8725-4 4H / / Description:COMPRESSION FT S CREWS CANNULATED, 2.5 MICRO 44MM LOAD 4 7 [id number] [facility]-1530p - [id number] Implanted:Qty: 1 on 09/20/2021 at [facility] Right: Foot [employer] 03/30/2025 AR-1530P- CP / / [id number] Description:FOREFOOT INTERNA L BRACE IMPLANT SYSTEM, PEEK Screw 4.45m86mj Bio Compositetenodesis Disp Architecture Technician Pk - [id number] Implanted:Qty: 1 on 09/20/2021 at [facility] Right: Foot [employer] 08/30/2022 AR-1547CD S / / [id number] Ancr Sut 1.3mm Dx Fibertak Suturetape 2 Ndl 26.2mm /2 [facility] - [id number] Implanted:Qty: 1 on 09/20/2021 at [facility] Right: Foot [employer] 06/29/2026 AR-8990ST / / [id number] Explanted Type Area Csw Device Identifier Shelf Expiration Date Model / Serial / Lot Wire Kirs .[id number] Smooth6/Pk Depuy/Héctor - [id number] Explanted:Qty: 1 on 09/20/2021 at [facility] Right: Foot [employer] / / Description:LOAD 4 8 [id number] [facility]8737-40 - [id number] Explanted:Qty: 1 on 09/20/2021 at [facility] Right: Foot [employer] AR-8737-40 / / Description:2.5 MICRO COMPRE SSION FT DRILLS AND DISPOSABLES, GUIDEWIRE W TROCAR TIP, THREADED, 0.34 IN (.86MM) LOAD 4 7 [id number] Procedures Procedure Name Priority Date/Time Associated Diagnosis Comments CT CHEST PE STUDY Routine 05/10/2022 7:5 0 PM CDT OCCULT BLOOD IFOBT STOOL Routine 07/03/2013 7:00 PM PURCHASING SPECIALIST Screening for colon cancer from Last 3 [...] Occult Blood Stool (IFOBT) (07/03/2013 7:00 PM PURCHASING SPECIALIST) STOOL BLOOD ,IFOBT Negative Negative, Invalid 07/04/2013 3:03 PM PURCHASING SPECIALIST [facility] Stool specimen (specimen) STOOL SPECIMEN / Unknown Non-Blood / Unknown 07/03/2013 7:00 PM PURCHASING SPECIALIST 07/04/2013 2:39 PM PURCHASING SPECIALIST Dave Garrett MD LABORATORY [facility] [address] [place] [address] from Last 3 Months or Most Recently Relevant to Health Maintenance Advance Directives Documents on File Type Date Recorded Patient Customer Service Assistant Expl anation Healthcare Directive 05/21/2021 3:50 PM [...] Code Status Discussion: Reviewed Preferences Care Teams Summer Law Associate Relationship Specialty Start Date End Date Post, Dave Velazquez MD PCP - General 06/02/10 Moshe Enciso MD [address] [place], [place] [address] Endocrinology Endocrinology 01/04/18 [place] [address] [place], [place] [address] Surgery - Ophthalmology 03/22/18 [facility] [place] [address] [place], [place] [address] 06/08/21 Murali Hoover DPM [address] [address] Surgery - Podiatric 01/03/23
--- OUTSIDE RECORDS SUMMARY | 2024-03-19 13:54 | XMS_ITS | Encounter Summary ---
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 [place] [facility] [place] Address [address] [place] [address] Care Team Providers Care Child Care Counselor Name Role Phone CHARLEE FISH Primary Care [...] MEDIC ARE SUPPL EMENT Jul 31, 2018 [id number] RENAUX,JU ALEX PATIENT [place] SUPPLEMEN [place]OT MEDIC ARE SUPPL EMENT Jul 31, 2018 [id number] [phone] RENAUX,JU A[place] [facility] (WNR) MEDICARE ADVANTAGE [facility] (WNR) Jul 31, 2017 [id number] [phone] RENAUX,JU ALEX PATIENT [place] SUPPLEMEN SCOT MEDIC ARE SUPPL EMENT Jul 31, 2018 [id number] RENAUX,JU A[place] SUPPLEMEN [place]OT MEDIC ARE SUPPL EMENT Jul 31, 2018 [id number] [phone] RENAUX,JU ALEX PATIENT MEDICARE ([place]NR) [place]ICARE ([place]) PART A May 31, 2011 PART A [id number] [phone] KANE PÉREZ PATIENT MEDICARE ([place]) MEDICARE [place]) PART B May 31, 2011 PART B [id number] [phone] KANE PÉREZ PATIENT Selected Encounter This section includes the information on record at [place] for the Encounter. Date/Time Encounter Type Encounter Description Reason Pro vider Source Mar 14, 2024 02:32 PM Outpatient Encounter CLINICAL PHARMACY I[facility] Encounter Template Text not used by [place] Plan of Treatment: Future Appointments (+ 6 months) and Future Tests (+/- 45 days) The Plan of Treatment section includes future care activities for the [facility] [place] [facility] This section includes future appointments and [...] 27, 2024 01:30 PM AMBULATORY - NONE [facility] Social History: Smoking Status (Most current) and [...] place. Date/Time Current Smoking Status Comment Diego itedson Aug 18, 2022 08:30 AM VA-TOBACCO FORMER USER [facility] Tobacco Use History This section includes a history of the smoking, or tobacco-related health factors, that were collected on or before the date of the Encounter. The data comes from the [place] facility where the Encounter took place. Date/Time Smoking Status/Tobacco Use Comment F acility Aug 18, 2022 08:30 AM [place]-TOBACCO QUIT 15 YRS OR MORE [facility] May 03, 2021 08:00 AM VA-TOBACCO FORMER USER [facility] May 03, 2021 08:00 AM VA-TOBACCO QUIT 15 YRS OR MORE [facility] Apr 21, 2020 09:00 AM VA-TOBACCO FORMER USER [facility] Apr 21, 2020 09:00 AM IN-TOBACCO QUIT 15 YRS OR MORE [facility] Apr 03, 2018 03:16 PM FORMER TOBACCO USE >1Y <7Y [facility] Mar 09, 2007 10:41 AM CURRENT TOBACCO USER [facility] Advance Directives: All historical and current [...] 22, 2021 ADVANCE DIRECTIVE DISCUSSION ALLYSON GRAF [facility] Jun 22, 2021 ADVANCE DIRECTIVE GRAFALLYSON BENOIT [facility] Mar 09, 2007 ADVANCE DIRECTIVE SOLEDAD WOLFF [facility] Encounter Notes: All associated encounter notes This section contains the clinical notes associated to the Encounter. Date/Time Encounter Note(s) Provider Source Mar 14, 2024 02:32 PM PHARMACY NOTE: LOCAL TITLE: PHARMACY MEDICATION RETURNED STANDARD TITLE: PHARMACY NOTE DATE OF NOTE: MAR 14, 2024@14:32 ENTRY DATE: MAR 14, 2024@14:32:36 AUTHOR: ASHISH STOKES EXP COSIGNER: URGENCY: STATUS: COMPLETED [facility] [address] [place] [address] Feb MIGUELINA ANAHI PÉREZ [address] [address] Dear Walters, A package containing the following medication(s)/supply item(s) was returned by the USPS/UPS: [id number]$ INSULIN,GLARGINE-YFGN 100UNIT/ML PEN 3ML Reason for return: Other: [employer] [facility] MA[facility] RETURNED Action: The medication or supply items will be resent Comment: MEDICATION A PART OF THE ISSUE WITH [employer]. MEDICATION WAS RETURNED AND THEN RESENT THROUGH LOCAL MAIL. NO TRACKING NUMBER AVAILABLE AT THIS TIME DUE TO BEING AFTER MAIL CUT OFF TIME. MEDICATION SHOULD MAIL OUT ON Monday03/18/2024. /toby/ ASHISH STOKES pharmacy consultant Signed: 03/14/2024 14:34 ASHISH STOKES [facility]
== END 2024-03-19 13:41 | disposition home or self-care (01) ==
LOC: WOUND 13:40
PROVIDERS: Visit Provider Nurse Practitioner Family
DX: E11.621 Type 2 diabetes mellitus with foot ulcer (principal); L97.512 Non-pressure chronic ulcer of other part of right foot with fat layer exposed; Z79.4 Long term (current) use of insulin; Z79.84 Long term (current) use of oral hypoglycemic drugs
CPT/HCPCS: 15275; Q4121

== ENCOUNTER 2024-03-26 11:31 | Outpatient (CLI) | payer MEDICARE, BC, SELFPAY ==
--- OUTSIDE RECORDS SUMMARY | 2024-03-26 11:35 | XMS_ITS | Continuity of Care Document ---
Author Name [facility] Organization [facility] Care Team Providers Care Pattern Drafter Name Role Phone [facility] Unavailable Unavailable Problems Combined list of problems from Department of Defense and Veterans Affairs facilities. It does not include entries that were removed or entered in error. Problem Status Onset Date Problem Type Date of Resolution Comments Source Exposure to potentially hazardous substance ([facility] [id number]) Active 10/05/19 24 Condition Oct 05, 2023 Entered By: VIJI VIVAS [facility] Documentation Initiative [facility] Depressive Disorder NOS * (ICD-9-CM 311./300.4) Active Condition [facility] Diabetes mellitus (SNOMED CT 54279582) Active Condition [facility] Diabetic neuropathy Active Condition [facility] Foot Pain (ICD-9-CM 719.47) Active Condition Aug 26 10 Entered By: MALINA WORLEY Comment: left 5th metatarsal fracture [facility] History of amputation of lesser toe Active Condition [facility] Hyperlipidemia (SNOMED CT 53159321) Active Condition [facility] Hyperuricemia Active Condition [facility] Osteopenia Active Condition [facility] Other Iatrogenic Hypotension Active Condition [facility]) Personal History of Alcoholism (ICD-9-CM V11.3) Active Condition [facility] Tobacco user (SNOMED CT 588399948) Active Condition [facility] Diagnosis: ICD-10-CM E11.42 Type 2 diabetes mellitus with diabetic polyneuropathy Active Diagnosis [facility] Diana [facility] Diagnosis: ICD-10-CM E11.621 Type 2 diabetes mellitus with foot ulcer Active Diagnosis [facility] Diagnosis: ICD-10-CM Z77.29 Contact with and exposure to other hazardous substances Active Diagnosis [facility] Medications Combined list of outpatient medications [...] ed by: CHARLEE FISH Document ed at: [facility] ORAL ACTIVE CHARLEE FISH 2022 [facility] ASPIRIN 81MG TAB,EC ASPIRIN 81MG TAB,EC Non-VA TAKE ONE TABLET BY MOUTH EVERY DAY Mar 13, 2007 Non-VA Document ed by: MARY CHOUDHARY Document ed at: [facility] ORAL ACTIVE JEFF CHOUDHARY A 2006 [facility] ATORVASTATI N CA 40MG TAB ATORVAST ATIN CA 40MG TAB Active TAKE ONE TABLET BY MOUTH EVERY DAY FOR CHOLESTE ROL Apr 11, 2023 90 Apr 11, 2024 [id number] December 17, 2023 CHARLEE FISH [facility] ORAL ACTIVE 04/11/2024 [id number] CHARLEE FISH 2022 90 [facility] ATORVASTATI N CA 40MG TAB ATORVAST ATIN CA 40MG TAB Disconti nued TAKE ONE TABLET BY MOUTH EVERY DAY FOR CHOLESTE ROL Jul 14, 2022 90 Jul 15, 2023 [id number] Mar 31, 2023 NAIDL,TO DD [facility] ORAL DISCONT INUED 07/15/2023 [id number] NAIDL,TOD D 2022 90 [facility] CHOLECALCIF QUINTIN TAB CHOLECAL CIFEROL TAB Non-VA TAKE 5000 UNITS BY MOUTH EVERY DAY Aug 21, 2022 Non-VA Document ed by: CHARLEE FISH Document ed at: [facility] ORAL ACTIVE CHARLEE FISH 2022 [facility] COENZYME Q10 CAP/TAB COENZYME Q10 CAP/TAB Non-VA TAKE 1 CAPSULE BY MOUTH EVERY DAY Aug 21, 2022 Non-VA Document ed by: CHARLEE FISH Document ed at: [facility] ORAL ACTIVE CHARLEE FISH 2022 [facility] CYANOCOBALA MIN 1000MCG TAB CYANOCOB ALAMIN 1000MCG TAB Non-VA TAKE ONE TABLET BY MOUTH EVERY DAY Mar 09, 2022 Non-VA Document ed by: MAUREEN BRITO DD Document ed at: [facility] ORAL ACTIVE DEAN BRITO 2021 [facility] DICLOFENAC NA 1% GEL,TOP DICLOFEN AC NA 1% GEL,TOP APPLY 4 GRAMS TOPICALL Y FOUR TIMES A DAY NEEDED FOR JOINT PAIN JOINT PAIN Mar 22, 2023 100 Mar 22, 2024 [id number] Mar 22, 2023 FISHCHARLEE Bowers [facility] TOPICA L 03/22/2024 [id number] ABE CHARLEE A 2022 100 [facility] FINASTERIDE 5MG TAB FINASTER RACHEL 5MG TAB Active TAKE ONE TABLET BY MOUTH EVERY DAY FOR PROSTATE FOR PROSTATE Apr 11, 2023 90 Apr 11, 2024 [id number] Jan 08, 2024 FISH CHARLEE Robinson [facility] ORAL ACTIVE 04/11/2024 [id number] CHARLEE FISH 2022 90 [facility] FINASTERIDE 5MG TAB FINASTER RACHEL 5MG TAB Disconti nued TAKE ONE TABLET BY MOUTH EVERY DAY FOR PROSTATE FOR PROSTATE Jul 12, 2022 90 Jul 13, 2023 [id number] Mar 31, 2023 FISH CHARLEE [facility] ORAL DISCONT INUED 07/13/2023 [id number] ABE CHARLEE Robinson 2021 90 [facility] FISH OIL 1000MG (500MG DHA/EPA) CAP,ORAL FISH OIL 1000MG (500MG DHA/EPA) CAP,ORAL Non-VA TAKE 1 CAPSULE BY MOUTH TWICE A DAY Mar 13, 2007 Non-VA Document ed by: MARY CHOUDHARY A Document ed at: [facility] ORAL ACTIVE JEFF CHOUDHARY ER A 2006 [facility] INSULIN,GLA RGINE-YFGN 100UNIT/ML INJ PEN,3ML INSULIN, GLARGINE -YFGN 100UNIT/ ML INJ PEN,3ML Active INJECT 24 UNITS UNDER THE SKIN EVERY EVENING FOR DIABETES FOR DIABETES Aug 29, 2023 5 Aug 29, 2024 [id number] Mar 14, 2024 NAIDL,TO DD [facility] SUBCUT ANEOUS ACTIVE 08/29/2024 [id number] NAIDL,TOD D 2023 5 [facility] INSULIN,GLA RGINE-YFGN 100UNIT/ML INJ PEN,3ML INSULIN, GLARGINE -YFGN 100UNIT/ ML INJ PEN,3ML Disconti nued INJECT 22 UNITS UNDER THE SKIN AT BEDTIME FOR DIABETES FOR DIABETES Jan 06, 2023 5 Jan 07, 2024 [id number] Jul 25, 2023 NAIDL,TO DD [facility] SUBCUT ANEOUS DISCONT INUED (EDIT) 01/07/2024 [id number] NAIDL,TOD D 2022 5 [facility] INSULIN,GLA RGINE-YFGN 100UNIT/ML INJ PEN,3ML INSULIN, GLARGINE -YFGN 100UNIT/ ML INJ PEN,3ML Disconti nued INJECT 20 UNITS UNDER THE SKIN AT BEDTIME FOR DIABETES FOR DIABETES December 07, 2022 5 December 08, 2023 [id number] Jan 06, 2023 NAIDL,TO DD [facility] SUBCUT ANEOUS DISCONT INUED (EDIT) 12/08/2023 [id number] NAIDL,TOD D 2022 5 [facility] LIDOCAINE 4% CREAM,TOP LIDOCAIN E 4% CREAM,TO P APPLY MODERATE AMOUNT TOPICALL Y THREE TIMES A DAY FOR PAIN PAIN Mar 22, 2023 30 Mar 22, 2024 [id number] Mar 22, 2023 CHARLEE FISH [facility] TOPICA L 03/22/2024 [id number] CHARLEE FISH 2022 30 [facility] MAGNESIUM OXIDE 400MG TAB MAGNESIU M OXIDE 400MG TAB Non-VA TAKE ONE TABLET BY MOUTH EVERY DAY Aug 21, 2022 Non-VA Document ed by: CHARLEE FISH Document ed at: [facility] ORAL ACTIVE CHARLEE FISH 2022 [facility] MENTHOL/MET HYL SALICYLATE (10-15%) LOW CONC. CREAM,TOP MENTHOL/ METHYL SALICYLA TE (10-15%) LOW CONC. CREAM,TO P APPLY THIN LAYER TOPICALL Y THREE TIMES A DAY FOR MUSCLE PAIN MUSLCE PAIN Mar 22, 2023 90 Mar 22, 2024 [id number] Mar 22, 2023 CHARLEE FISH [facility] TOPICA L 03/22/2024 [id number] CHARLEE FISH 2022 90 [facility] METFORMIN HCL 1000MG TAB METFORMI N HCL 1000MG TAB Active TAKE ONE TABLET BY MOUTH TWICE A DAY FOR DIABETES Apr 11, 2023 180 Apr 11, 2024 [id number] E Feb 19, 2024 CHARLEE FISH [facility] ORAL ACTIVE 04/11/2024 [id number] CHARLEE FISH 2022 180 [facility] METFORMIN HCL 1000MG TAB METFORMI N HCL 1000MG TAB Disconti nued TAKE ONE TABLET BY MOUTH TWICE A DAY FOR DIABETES Jul 14, 2022 180 Jul 15, 2023 [id number] D Apr 06, 2023 NAIDL,TO DD [facility] ORAL DISCONT INUED 07/15/2023 [id number] NAIDL,TOD D 2022 180 [facility] OMEPRAZOLE 20MG CAP,EC OMEPRAZO LE 20MG CAP,EC TAKE ONE CAPSULE BY MOUTH EVERY DAY ON AN EMPTY STOMACH, AT LEAST 30 MINUTES PRIOR TO A MEAL FOR GERD GERD Mar 22, 2023 90 Mar 22, 2024 [id number] December 22, 2023 CHARLEE FISH [facility] ORAL 03/22/2024 [id number] CHARLEE FISH 2022 90 [facility] SEMAGLUTIDE 1MG/0.75ML INJ,SOLN,PE N,3ML SEMAGLUT RACHEL 1MG/0.75 ML INJ,SOLN ,PEN,3ML Active INJECT 1MG UNDER THE SKIN EVERY WEEK FOR DIABETES FOR DIABETES Nov 07, 2023 1 Nov 07, 2024 [id number] Mar 12, 2024 NAIDL,TO DD [facility] SUBCUT ANEOUS ACTIVE 11/07/2024 [id number] NAIDL,TOD D 2023 1 [facility] SEMAGLUTIDE 1MG/0.75ML INJ,SOLN,PE N,3ML SEMAGLUT RACHEL 1MG/0.75 ML INJ,SOLN ,PEN,3ML Disconti nued INJECT 1MG UNDER THE SKIN EVERY WEEK FOR DIABETES FOR DIABETES Nov 07, 2022 1 Nov 08, 2023 [id number] Nov 06, 2023 NAIDL,TO DD [facility] SUBCUT ANEOUS DISCONT INUED 11/08/2023 [id number] NAIDL,TOD D 2022 1 [facility] TAMSULOSIN HCL 0.4MG CAP TAMSULOS IN HCL 0.4MG CAP Active TAKE ONE CAPSULE BY MOUTH EVERY EVENING PROSTATE Apr 13, 2023 30 Apr 13, 2024 [id number] Mar 14, 2024 CHARLEE FISH [facility] ORAL ACTIVE 04/13/2024 [id number] CHARLEE FISH 2022 30 [facility] TAMSULOSIN HCL 0.4MG CAP TAMSULOS IN HCL 0.4MG CAP Disconti nued TAKE ONE CAPSULE BY MOUTH EVERY EVENING PROSTATE Apr 11, 2023 90 Apr 11, 2024 [id number] Apr 21, 2023 CHARLEE FISH [facility] ORAL DISCONT INUED 04/11/2024 [id number] CHARLEE FISH 2022 90 [facility] TAMSULOSIN HCL 0.4MG CAP TAMSULOS IN HCL 0.4MG CAP Disconti nued TAKE ONE CAPSULE BY MOUTH EVERY EVENING PROSTATE Aug 03, 2022 90 Aug 04, 2023 [id number] Jan 21, 2023 CHARLEE FISH [facility] ORAL DISCONT INUED 08/04/2023 [id number] CHARLEE FISH 2022 90 [facility] TURMERIC CAP/TAB TURMERIC CAP/TAB Non-VA TAKE 500 MG BY MOUTH TWICE A DAY Apr 22, 2019 Non-VA Document ed by: MATTY WOO Document ed at: [facility] ORAL ACTIVE MATTY POWERS 2018 [facility] Allergies, Adverse Reactions, Alerts Combined list of allergies from Department of Defense and Veterans Affairs facilities. It does not include entries that were removed or entered in error. Substance Category Reaction Severity Reaction type Status Date Reported Comments Source VANCOMYCIN Propensity to adverse reactions to drug (finding) [place] active 8 [facility] Immunizations Combined list of available immunizations from the Department of Defense and Veterans Affairs facilities. 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 [employer] Status Comments Source ZOSTER RECOMBINANT 2 2019 187 complet ed [facility] INFLUENZA, INJECTABLE, QUADRIVALENT, PRESERVATIVE FREE 2019 150 complet ed [facility] ZOSTER RECOMBINANT 1 2019 187 complet ed [facility] INFLUENZA, HIGH-DOSE, QUADRIVALENT 2019 197 complet ed [facility] INFLUENZA, SEASONAL, INJECTABLE, PRESERVATIVE FREE 2017 140 complet ed [facility] INFLUENZA, INJECTABLE, QUADRIVALENT, PRESERVATIVE FREE 2017 150 complet ed [facility] INFLUENZA, INJECTABLE, QUADRIVALENT, PRESERVATIVE FREE 2015 150 complet ed [facility] TDAP 2015 115 complet ed [place] [facility] PNEUMOCOCCAL CONJUGATE PCV 13 2015 133 complet ed [facility] TD (ADULT), 5 LF TETANUS TOXOID, PRESERVATIVE FREE, ADSORBED 2015 113 complet ed [facility] INFLUENZA, INJECTABLE, QUADRIVALENT, PRESERVATIVE FREE 2013 150 complet ed [facility] PNEUMOCOCCAL POLYSACCHARID E PPV23 2010 33 complet ed [facility] INFLUENZA, UNSPECIFIED FORMULATION 2006 88 complet ed [facility] PNEUMOCOCCAL, UNSPECIFIED FORMULATION 2006 109 complet ed [facility] TD(ADULT) UNSPECIFIED FORMULATION 2006 NONE 139 complet ed [facility] TETANUS TOXOID, UNSPECIFIED FORMULATION 2006 NONE 112 complet ed [facility] Results Combined list of recent chemistry, hematology [...] Aug 21, 2022 03:48 PM Reporting Lab: [facility] [phone] Performing Lab: [facility] [address] [facility] BASIC METABOLIC PANEL+MG CREATININE [MASS/VOLUM E] IN SERUM OR PLASMA 1.2 mg/dL 0.7 - 1.2 03/22 Specimen Type: PLASMA No comment entered. Ordering Provider: ME LEEROY [facility] Report Released Date/Time: Aug 21, 2022 03:48 PM Reporting Lab: [facility] [phone] Performing Lab: [facility] [phone] [place] [facility] BASIC METABOLIC PANEL+MG UREA NITROGEN [MASS/VOLUM E] IN SERUM OR PLASMA 15 mg/dL 8 - 03/22 Specimen Type: PLASMA No comment entered. Ordering Provider: ME LEEROY FISH Report Released Date/Time: Aug 21, 2022 03:48 PM Reporting Lab: [facility] [phone] Performing Lab: [facility] [phone] [place] [facility] BASIC METABOLIC PANEL+MG GLUCOSE [MASS/VOLUM E] IN SERUM OR PLASMA 145 mg/dL 70 - 100 03/22 H Specimen Type: PLASMA No comment entered. Ordering Provider: ME LEEROY FISH Report Released Date/Time: Aug 21, 2022 03:48 PM Reporting Lab: [facility] [phone] Performing Lab: [facility] [address] [place] [facility] BASIC METABOLIC PANEL+MG SODIUM [MOLES/VOLU ME] IN SERUM OR PLASMA 138 mmol/L 136 - 145 03/22 Specimen Type: PLASMA No comment entered. Ordering Provider: ME LEEROY FISH Report Released Date/Time: Aug 21, 2022 03:48 PM Reporting Lab: [facility] [address] Performing Lab: [facility] [phone] [place] [facility] BASIC METABOLIC PANEL+MG POTASSIUM [MOLES/VOLU ME] IN SERUM OR PLASMA 4.5 mmol/L 3.5 - 5.1 03/22 Specimen Type: PLASMA No comment entered. Ordering Provider: ME LEEROY FISH Report Released Date/Time: Aug 21, 2022 03:48 PM Reporting Lab: [facility] [address] Performing Lab: [facility] [address] [place] [facility] BASIC METABOLIC PANEL+MG CHLORIDE [MOLES/VOLU ME] IN SERUM OR PLASMA 101 mmol/L 98 - 107 03/22 Specimen Type: PLASMA No comment entered. Ordering Provider: ME LEEROY FISH Report Released Date/Time: Aug 21, 2022 03:48 PM Reporting Lab: [facility] [phone] Performing Lab: [facility] [phone] [place] [facility] BASIC METABOLIC PANEL+MG CARBON DIOXIDE, TOTAL [MOLES/VOLU ME] IN SERUM OR PLASMA 27 mmol/L 22 - 29 03/22 Specimen Type: PLASMA No comment entered. Ordering Provider: ME LEEROY FISH Report Released Date/Time: Aug 21, 2022 03:48 PM Reporting Lab: [facility] [address] Performing Lab: [facility] [address] [place] [facility] BASIC METABOLIC PANEL+MG CALCIUM [MASS/VOLUM E] IN SERUM OR PLASMA 10.0 mg/dL 8.4 - 10.2 03/22 Specimen Type: PLASMA No comment entered. Ordering Provider: ME LEEROY FISH Report Released Date/Time: Aug 21, 2022 03:48 PM Reporting Lab: [facility] [phone] Performing Lab: [facility] [address] [place] [facility] BASIC METABOLIC PANEL+MG MAGNESIUM [MASS/VOLUM E] IN SERUM OR PLASMA 1.9 mg/dL 1.6 - 2.6 03/22 Specimen Type: PLASMA No comment entered. Ordering Provider: ME LEEROY FISH Report Released Date/Time: Aug 21, 2022 03:48 PM Reporting Lab: [facility] [phone] Performing Lab: [facility] [address] [place] [facility] BASIC METABOLIC PANEL+MG ANION GAP IN SERUM OR PLASMA 10 mmol/L 5 - 15 03/22 Specimen Type: PLASMA No comment entered. Ordering Provider: ME LEEROY FISH Report Released Date/Time: Aug 21, 2022 03:48 PM Reporting Lab: [facility] [address] Performing Lab: [facility] [phone] [place] [facility] BASIC METABOLIC PANEL+MG GLOMERULAR FILTRATION RATE/1.73 SQ M.PREDICTED [VOLUME RATE/AREA] IN SERUM, PLASMA OR BLOOD BY CREATININE- BASED FORMULA (CKD-EPI 2020) 63 60 03/22 Specimen Type: PLASMA No comment entered. Ordering Provider: ME LEEROY FISH Report Released Date/Time: Aug 21, 2022 03:48 PM Reporting Lab: [facility] [address] Performing Lab: [facility] [address] [place] [facility] HEMOGLOBI N A1C HEMOGLOBIN A1C/HEMOGLO [...] December 22, 2021 03:46 PM Reporting Lab: [place] [address] Performing Lab: [facility] [address] [place] [facility] BASIC METABOLIC PANEL+MG CREATININE [MASS/VOLUM E] IN SERUM OR PLASMA 0.9 mg/dL 0.7 - 1.2 08/18 Specimen Type: PLASMA No comment entered. Ordering Provider: ME LEEROY FISH Report Released Date/Time: December 22, 2021 03:46 PM Reporting Lab: [place] [phone] Performing Lab: [facility] [address] [place] [facility] BASIC METABOLIC PANEL+MG UREA NITROGEN [MASS/VOLUM E] IN SERUM OR PLASMA 12 mg/dL 8 - 26 08/18 Specimen Type: PLASMA No comment entered. Ordering Provider: ME LEEROY FISH Report Released Date/Time: December 22, 2021 03:46 PM Reporting Lab: [facility] [address] Performing Lab: [facility] [address] [place] [facility] BASIC METABOLIC PANEL+MG GLUCOSE [MASS/VOLUM E] IN SERUM OR PLASMA 184 mg/dL 70 - 100 08/18 H Specimen Type: PLASMA No comment entered. Ordering Provider: ME LEEROY FISH Report Released Date/Time: December 22, 2021 03:46 PM Reporting Lab: [facility] [address] Performing Lab: [facility] [phone] [place] [facility] BASIC METABOLIC PANEL+MG SODIUM [MOLES/VOLU ME] IN SERUM OR PLASMA 137 mmol/L 136 - 145 08/18 Specimen Type: PLASMA No comment entered. Ordering Provider: ME LEEROY FISH Report Released Date/Time: December 22, 2021 03:46 PM Reporting Lab: [facility] [phone] Performing Lab: [facility] [address] [place] [facility] BASIC METABOLIC PANEL+MG POTASSIUM [MOLES/VOLU ME] IN SERUM OR PLASMA 3.9 mmol/L 3.5 - 5.1 08/18 Specimen Type: PLASMA No comment entered. Ordering Provider: ME LEEROY FISH Report Released Date/Time: December 22, 2021 03:46 PM Reporting Lab: [facility] [address] Performing Lab: [facility] [address] [place] [facility] BASIC METABOLIC PANEL+MG CHLORIDE [MOLES/VOLU ME] IN SERUM OR PLASMA 102 mmol/L 98 - 107 08/18 Specimen Type: PLASMA No comment entered. Ordering Provider: ME LEEROY FISH Report Released Date/Time: December 22, 2021 03:46 PM Reporting Lab: [facility] [address] Performing Lab: [facility] [address] [place] [facility] BASIC METABOLIC PANEL+MG CARBON DIOXIDE, TOTAL [MOLES/VOLU ME] IN SERUM OR PLASMA 26 mmol/L 22 - 29 08/18 Specimen Type: PLASMA No comment entered. Ordering Provider: ME LEEROY FISH Report Released Date/Time: December 22, 2021 03:46 PM Reporting Lab: [facility] [address] Performing Lab: [facility] [address] [place] [facility] BASIC METABOLIC PANEL+MG CALCIUM [MASS/VOLUM E] IN SERUM OR PLASMA 9.4 mg/dL 8.4 - 10.2 08/18 Specimen Type: PLASMA No comment entered. Ordering Provider: ME LEEROY FISH Report Released Date/Time: December 22, 2021 03:46 PM Reporting Lab: [facility] [address] Performing Lab: [facility] [address] [place] [facility] BASIC METABOLIC PANEL+MG MAGNESIUM [MASS/VOLUM E] IN SERUM OR PLASMA 1.6 mg/dL 1.6 - 2.6 08/18 Specimen Type: PLASMA No comment entered. Ordering Provider: ME LEEROY FISH Report Released Date/Time: December 22, 2021 03:46 PM Reporting Lab: [facility] [address] Performing Lab: [facility] [address] [place] [facility] BASIC METABOLIC PANEL+MG ANION GAP IN SERUM OR PLASMA 9 mmol/L 5 - 15 08/18 Specimen Type: PLASMA No comment entered. Ordering Provider: ME LEEROY FISH Report Released Date/Time: December 22, 2021 03:46 PM Reporting Lab: [facility] [address] Performing Lab: [facility] [address] [place] [facility] BASIC METABOLIC PANEL+MG GLOMERULAR FILTRATION RATE/1.73 SQ M.PREDICTED [VOLUME RATE/AREA] IN SERUM, PLASMA OR BLOOD BY CREATININE- BASED FORMULA (CKD-EPI) 89 60 08/18 Specimen Type: PLASMA No comment entered. Ordering Provider: ME LEEROY FISH Report Released Date/Time: December 22, 2021 03:46 PM Reporting Lab: [facility] [address] Performing Lab: [facility] [address] [place] [facility] Encounters Combined list of: 1) 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 2) Encounters from the Department of Defense facilities going back up to 280 months. Location Location Details Encounter Type Encounter Number Reason For Visit Attending Provider ADM Date DC Date Status Disposition Source [place] [facility] PRO PHONE CALL 11-20 MIN [id number] Diagnos is: ICD-10- CM E11.42 Type 2 diabete s mellitu s with diabeti c polyneu ropathy
NAIDL,KARI 09/29 [facility] [place] [facility] PRO PHONE CALL 21-30 MIN [id number] Diagnos is: ICD-10- CM E11.42 Type 2 diabete s mellitu s with diabeti c polyneu ropathy
NAIDL,KARI 11/07 [facility] PRO PHONE CALL 11-20 MIN [id number] Diagnos is: ICD-10- CM E11.42 Type 2 diabete s mellitu s with diabeti c polyneu ropathy
NAIDL,KARI 12/07 [facility] Outpatient Encounter [id number] Diagnos is: ICD-10- CM Z77.29 Contact with and exposur e to other [facility]<br/ > JEANINE,MATH ILDE J 12/27 [facility] Outpatient Encounter [id number] Diagnos is: ICD-10- CM Z77.29 Contact with and exposur e to other [facility]<br/ > JEANINE,MATH ILDE J 12/27 [facility] PRO PHONE CALL 11-20 MIN [id number] Diagnos is: ICD-10- CM E11.42 Type 2 diabete s mellitu s with diabeti c polyneu ropathy
NAIDL,KARI 01/06 [facility] Outpatient Encounter [id number] 03/10 [facility] IS [facility] HC PRO PHONE CALL 11-20 MIN [id number] Diagnos is: ICD-10- CM E11.42 Type 2 diabete s mellitu s with diabeti c polyneu ropathy
NAIDL,KARI 03/14 [facility] IS [facility] OFFICE O/P EST LOW 20-29 MIN [id number] Diagnos is: ICD-10- CM E11.621 Type 2 diabete s mellitu s with foot ulcer<b r/> Rhiannon FISH 03/22 [facility] IS [facility] HC PRO PHONE CALL 21-30 MIN [id number] Diagnos is: ICD-10- CM E11.42 Type 2 diabete s mellitu s with diabeti c polyneu ropathy
NAIDL,KARI 04/18 [place] [facility] [place] [facility] PRO PHONE CALL 21-30 MIN [id number] Diagnos is: ICD-10- CM E11.42 Type 2 diabete s mellitu s with diabeti c polyneu ropathy
NAIDL,KARI 07/11 [place] [facility] [place] [facility] ADDL 15 MIN [id number] Diagnos is: ICD-10- CM E11.42 Type 2 diabete s mellitu s with diabeti c polyneu ropathy
NAIDL,KARI 08/29 [place] [facility] [place] [facility]ARM EST 15 MIN [id number] Diagnos is: ICD-10- CM E11.42 Type 2 diabete s mellitu s with diabeti c polyneu ropathy
AWKER,SOLEDAD L 10/10 [place] [facility] [place] [facility] Outpatient Encounter [id number] 10/16 [place] [facility] [place] [facility] MTMS BY PHARM EST 15 MIN [id number] Diagnos is: ICD-10- CM E11.621 Type 2 diabete s mellitu s with foot ulcer<b r/> NAIDL,KARI 11/06 [place] [facility] [place] [facility] BY PHARM ADDL 15 MIN [id number] Diagnos is: ICD-10- CM E11.42 Type 2 diabete s mellitu s with diabeti c polyneu ropathy
NAIDL,KARI 11/22 [place] [facility] [place] [facility] MTMS BY PHARM ADDL 15 MIN [id number] Diagnos is: ICD-10- CM E11.42 Type 2 diabete s mellitu s with diabeti c polyneu ropathy
NAIDL,KARI 01/17 [employer] Outpatient Encounter [id number] Diagnos is: ICD-10- CM E11.42 Type 2 diabete s mellitu s with diabeti c polyneu ropathy
DAWNA MILAGRO 01/18 [employer] [facility] QNHP OL DIG ASSMT&MGMT 5-10 [id number] Diagnos is: ICD-10- CM E11.42 Type 2 diabete s mellitu s with diabeti c polyneu ropathy
MOE CHOWDHURY Ana 01/18 [employer] [facility] MTMS BY PHARM EST 15 MIN [id number] Diagnos is: ICD-10- CM E11.42 Type 2 diabete s mellitu s with diabeti c polyneu ropathy
NAIDL,KARI 02/21 [employer] [facility] Outpatient Encounter [id number] RORY CAPPS 02/26 [employer] [facility] Outpatient Encounter [id number] 03/14 [facility] Social History Combined list of available smoking, tobacco, and other social history from Department of Defense and Veterans Affairs facilities. Social History Type Response Date Comment Sourc e Tobacco smoking status IAIS VA-TOBACCO FORMER USER 08/18/2022 [facility] History of tobacco use OR-TOBACCO QUIT 1 5 YRS OR MORE 08/18/2022 [facility] History of tobacco use VA-TOBACCO FORMER USER 05/03/2021 [facility] History of tobacco use VA-TOBACCO FORMER USER 04/21/2020 [facility] History of tobacco use FORMER TOBACCO US E >1Y <7Y 04/03/2018 [facility] History of tobacco use CURRENT TOBACCO USER 03/09/2007 [facility] Plan of Care List of future care activities from Department of Veterans Affairs facilities. Additional future care activities may be listed in the Assessment and Plan section. Date/Time Care Activity Care Activity Detail Facili ty 03/27/2024 AMBULATORY - NONE AMBULATORY - NONE JORGE BARKER [facility] Advance Directives List of completed, amended, or rescinded Advance Directives on record at Department of [facility] Affairs facilities. An actual copy of the Directive is not included. Date Advance Directive Provider Source 06/22/2021 ADVANCE DIRECTIVE DISCUSSION ALLYSON GRAF [facility] 06/22/[address] [facility] 03/09/2007 ADVANCE DIRECTIVE SOLEDAD WOLFF [facility]
--- OUTSIDE RECORDS SUMMARY | 2024-03-26 11:35 | XMS_ITS | Clinical Summary ---
Author Organization [facility] Address [address] [place] [address] Care Team Providers Care Quality Controller Name Role Phone Post, Dave Wakefield Primary Care Provider [phone] Medications Medication Sig Dispensed Refills Start Date [...] Comments Blood Pressure 148/85 06/26/2018 5:58 PM RETAIL RESET MERCHANDISER Pulse 90 06/26/2018 5:58 PM RETAIL RESET MERCHANDISER Temperature 36.6 ??C (97.8 ??F) 06/26/2018 5:58 PM CS T Respiratory Rate 18 06/26/2018 5:58 PM RETAIL RESET MERCHANDISER Oxygen Saturation 95% 06/26/2018 7:00 PM RETAIL RESET MERCHANDISER Inhaled Oxygen Concentration - - Weight 112 kg (247 lb) 06/26/2018 5:58 PM RETAIL RESET MERCHANDISER Height 180.3 cm (5' 11) 06/26/2018 5:58 PM RETAIL RESET MERCHANDISER Body Mass Index 34.45 06/26/2018 5:58 PM RETAIL RESET MERCHANDISER Plan of Treatment Not on file Care Teams Quality Controller Relationship Specialty Start Date End Date Post, Dave Wakefield PCP - General Internal Medicine 06/26/18
--- OUTSIDE RECORDS SUMMARY | 2024-03-26 11:35 | XMS_ITS | Referral Summary ---
Author Organization [facility] Address [address] [place] [address] Care Team Providers Care Stained Glass Joiner Name Role Phone Post, Dave Wakefield Primary Care Provider [phone] Medications Medication Sig Dispensed Refills Start Date [...] Comments Blood Pressure 148/85 06/26/2018 5:58 PM VETERINARY PRACTICE MANAGER Pulse 90 06/26/2018 5:58 PM VETERINARY PRACTICE MANAGER Temperature 36.6 ??C (97.8 ??F) 06/26/2018 5:58 PM CS T Respiratory Rate 18 06/26/2018 5:58 PM VETERINARY PRACTICE MANAGER Oxygen Saturation 95% 06/26/2018 7:00 PM VETERINARY PRACTICE MANAGER Inhaled Oxygen Concentration - - Weight 112 kg (247 lb) 06/26/2018 5:58 PM VETERINARY PRACTICE MANAGER Height 180.3 cm (5' 11) 06/26/2018 5:58 PM VETERINARY PRACTICE MANAGER Body Mass Index 34.45 06/26/2018 5:58 PM VETERINARY PRACTICE MANAGER Plan of Treatment Not on file Care Teams Stained Glass Joiner Relationship Specialty Start Date End Date Post, Dave Wakefield PCP - General Internal Medicine 06/26/18
--- OUTSIDE RECORDS SUMMARY | 2024-03-26 11:35 | XMS_ITS | Data Portability ---
Author Organization [facility] [facility] Address [address] [place] [address] Care Team Providers Care University Administrator Name Role Phone POST, SUE Primary Care [...] of Hospitaliza tion for UTI. 2022 023 [facility], [address], [address], [place], [address], 3 10:05:08 urinalysis, dipstick 2022 023 [facility], [address], [place], [address], 12:03:37 Referral None recorded. Procedures None recorded. Surgeries None recorded. Imaging None recorded. Medication Orders None recorded. Patient TargetsNo targets recorded. Patient Instructions Encounter Date Encounter Id Patient Instructions Last Modified By Organization Details Last Modified Time 09/23/2022 [id number] Patient to call clinic with questions or concerns. Advised patient to increase water intake and to keep 4 week appointment for next catheter change. [email or web address] Not available 09/23/2022 13:22:30 11/04/2022 [id number] Pt has F/U appt with Dr Barrientos in [place] on 11/11/2022 @ 3:10pm to review UDS. Not available 10/19/2022 15:50:04 Reason for Referral None Reported. Results Created Date Observation Date Name Description Value Unit Range Abnormal Flag Note LastModifiedBy Organization Detail LastModifiedTime 11/05/1911/04/2022 URINE CULTU RE final report MICROB IOLOGY RESULT S abnormal SOURC E Shannan teriz ed-Fo trina KNOWN ALLER GIES NKDA TREAT MENT Given Kefle x 500mg caps bid x 5 days MEDIA PLATE D AT: Media plate d on 023 @ 6:14 PM COLON Y COUNT >100, 000 cfu/m l RESUL T Iftikhar trixie iftikhar isac (Isol ate 1) RESUL T Iftikhar trixie iftikhar isac (Isol ate 2)-Di ffere nt Morph ologi c and Sensi tivit y Type RESUL T Enter ococc us faeca lis (Isol ate 3) Sensi tivit y Priscila sis Charlotte te 1 Charlotte te 2 Charlotte te 3 ----- ----- ----- ----- ----- ----- ----- - ----- ----- ----- - ----- ----- ----- - AMOX/ K CLAV >16/8 R >16/8 R AMP/S ULBAC FISCHER >16/8 R >16/8 R AMPIC ILLIN >16 R >16 R <=2*S AZTRE ONAM <=4*S <=4*S CEFTA ZIDIM E <=1*S 4*S CEFTR IAXON E <=1*S <=1*S CEFUR OXIME >16 R >16 R CIPRO FLOXA ANTONIO >2 R >2 R >2 R GENT. SYNER GY <=500 *S LEVOF LOXAC IN <=2*S 4 I >4 R NITRO FURAN TOIN 64 R >64 R <=32* S PENIC ILLIN 2*S PIP/T AZO <=16* S <=16* S RIFAM PIN <=1*S STREP . SYNER GY >1000 R TETRA CYCLI NE >8 R >8 R >8 R TRIME TH/BOWMAN LFA >2/38 R >2/38 R TRIME THOPR IM >8 R >8 R VANCO MYCIN 1*S Orga nisms that are susce ptibl e to tetra cycli ne are gener ally also susce ptibl e to doxyc yclin e and minoc yclin e. Any subst ituti on of drugs which have not been teste d for sensi tivit y shoul d be consi dered based on appro shanon usage of the drugs . Infor matio n on doxyc yclin e and minoc yclin e can be found in the Physi florentin' s Desk [facility]. S= Susce ptibl e;I= Inter media te;R= Resis tant; ESBL= Resis tance due to confi rmed ESBL This lab resul t is being provi ded to you and your provi brandon at the same time in compl iance with the Centu ry Cures Act. Your provi brandon may not have had time to revie w and make recom menda tions based on the resul t. Pleas e allow up to one week for provi brandon revie w. Not Available [facility] [address], [place], [address], 11/07/2022 10:05:08 11/05/19 23 11/04/2022 urina lysis , dipst ick Color-Status Straw Not Available [facility] [address], [place], [address], 11/04/2022 12:02:10 11/05/19 23 11/04/2022 urina lysis , dipst ick Clarity-Stat us Slight ly Cloudy Not Available [facility] [address], [place], [address], 11/04/2022 12:02:10 11/05/19 23 11/04/2022 urina lysis , dipst ick Glucose-Stat us 500 Not Available [facility] [address], [place], [address], 11/04/2022 12:02:10 11/05/19 23 11/04/2022 urina lysis , dipst ick Bilirubin-St atus Negati ve Not Available [facility] [address], [place], [address], 11/04/2022 12:02:10 11/05/19 23 11/04/2022 urina lysis , dipst ick Ketones-Stat us Negati ve Not Available [facility] [address], [place], [address], 11/04/2022 12:02:10 11/05/19 23 11/04/2022 urina lysis , dipst ick Sp Amber-Stat us 1.015 Not Available [facility] [address], [place], [address], 11/04/2022 12:02:10 11/05/19 23 11/04/2022 urina lysis , dipst ick pH-Status 6.5 Not Available [facility] [address], [place], [address], 11/04/2022 12:02:10 11/05/19 23 11/04/2022 urina lysis , dipst ick Protein-Stat us 5.0 Not Available [facility] [address], [place], [address], 11/04/2022 12:02:10 11/05/19 23 11/04/2022 urina lysis , dipst ick Urobilinogen -Status 0.2 Not Available [facility] [address], [place], [address], 11/04/2022 12:02:10 11/05/19 23 11/04/2022 urina lysis , dipst ick Nitrates-Sta tus positi ve Not Available [facility] [address], [place], [address], 11/04/2022 12:02:10 11/05/19 23 11/04/2022 urina lysis , dipst ick Blood-Status Large Not Available [facility] [address], [place], [address], 11/04/2022 12:02:10 11/05/19 23 11/04/2022 urina lysis , dipst ick Leuko-Status Large Not Available [facility] [address], [place], [address], 11/04/2022 12:02:10 11/05/19 23 11/04/2022 urina lysis , dipst ick Specimen Type Cathet erized Not Available [facility] [address], [place], [address], 11/04/2022 12:02:10 11/05/19 23 11/04/2022 urina lysis , dipst ick Performed by LKchuckve n1 Not Available [facility] [address], [place], [address], 11/04/2022 12:02:10 Result Notes None recorded. Problems Name Problem SNOMED Code Status Onset Date Resolution Date Notes Provider Name and Address Organization Details Recorded Time [facility]ention of urine [id number] [facility] 13:15[facility] Problem Notes None recorded. Procedures Surgical History Date Name Laterality Status Provider Name and Address Organization Details Recorded Time 3 Fill and Pull/Voiding Trial/TOV completed Jenna Harris null, [facility] 12/09/2022 11:59:45 3 Urodynamic Studies completed Deyanira Woods null, [facility] 11/04/2022 12:19:38 3 Gordon Catheter Insertion completed Deyanira Woods null, [facility] 11/04/2022 12:21:21 3 Urethral Catheter Change [facility]/21/[facility]22 13:18:32 3 Urethral Catheter Change completed Nenita Flores null, [facility] 09/23/2022 13:21:12 3 Gordon Catheter Insertion completed Roula Beltran null, [facility] 08/03/2022 11:16:51 3 Fill and Pull/Voiding Trial/TOV completed Roula Beltran [facility] 08/03/2022 11:16:41 2 Cystoscopy- male completed Kristopher Barrientos MD, PHD [address] [place] [address], [address], [facility] 06/30/2022 09:37:30 2 Urethral Catheter Change completed Carlos Mix null, [facility] 06/30/2022 09:49:15 2 Gordon Catheter Insertion completed Juanito Josue null, [facility] 06/16/2022 15:03:22 2 Fill and Pull/Voiding Trial/TOV completed Roula Tony PA-C [address] [place] [address], [address], [facility] 06/16/2022 18:06:50 [facility]aract [facility] 12:30:25 Orthopedic Surgery completed Juanito Gannonfidel song [facility] 06/16/2022 12:30:33 Imaging Results [...] Updated DateTime 09/23/2022 180.34 cm Nenita Flores [facility] 09/23/2022 13:17:39 Date Recorded Body height Body mass index (BMI) Body weight Provider Name and Address Organization Details Last Updated DateTime 11/11/2022 180.34 cm 30 kg/m2 14092.36 g Amanda Molina [facility] 11/11/2022 16:25:51 Social History Question Answer Notes LastModified by Organizat ion Details LastModified Time Tobacco Smoking Status Former Smoker Еленаarminda Shafferamfidel song [facility] 06/16/2022 12:29:38 What Is [...] Encounter Closed Date Diagnosis/Indication Diagnosis SNOMED-CT Code [id number] Roula Tony PA-C [facility] [address] [place] [address] 06/16/2022 11:30:09 06/20/2022 08:36:10 Retention of urine [id number] Benign pro static hyperplasia with outflow obstruction [id number] Kristopher bains MD, PHD [facility] [address] [place] [address] 06/30/2022 08:46:23 07/04/2022 11:29:58 Retention of urine [id number] Benign pro static hyperplasia with outflow obstruction [id number] [id number] Roula Beltran [facility] [address] [place] [address] 08/03/2022 10:27:16 08/05/2022 11:54:14 Retention of urine 170141532 [id number] Nenita Flores [facility] [address] [place] [address] 09/23/2022 10:30:04 09/26/2022 14:37:37 [id number] Kristopher bains MD, PHD [facility] [address] [place] [address] 11/04/2022 10:41:00 11/10/2022 13:37:32 Benign prostatic hyperplasia with outflow obstruction 561787791 Retention of urine 49930 4002 Microscopic hematuria 19 4531192 [id number] Jenna Harris [facility] [address] [place] [address] 10/21/2022 11:27:55 10/24/2022 11:49:09 Retention of urine 270116839 [id number] Kristopher bains MD, PHD [facility] [address] [place] [address] 11/11/2022 16:25:28 11/17/2022 17:02:38 Retention of urine 581455638 Benign pro static hyperplasia with outflow obstruction 728705254 [id number] J[facility] [address] [place] [address] 12/09/2022 10:56:01 12/12/2022 15:10:14 Retention of urine 987819206 Health Concerns Section Related Observation LastModified by Organization Detai ls LastModified Time None Recorded Concern Status LastModified by Organization Details LastModified Time None Recorded Advance Directives Directive None Recorded Payers Encounter Date Sequence Insurance Name Policy Number Policy Molina Covered Member ID Molina Member ID Guarantor Name 09/23/2022 1 [place] [employer] Tom B Renaux [id number] Tom B Renaux 09/23/2022 2 [place] [id number] Tom B Renaux [id number] Tom B Renaux 10/21/2022 1 [place] [employer] Tom B Renaux [id number] Tom B Renaux 10/21/2022 2 [place] [id number] Tom B Renaux [id number] Tom B Renaux 11/04/2022 1 [place] [employer] Tom B Renaux [id number] Tom B Renaux 11/04/2022 2 [place] [id number] Tom B Renaux [id number] Tom B Renaux 11/11/2022 1 [place] [facility] [id number] Tom Leon Renaux [id number] Tom B Renaux 11/11/2022 2 [place] [id number] Tom B Renaux [id number] Tom B Renaux 12/09/2022 1 [place] [facility] [id number] Tom Leon Renaux [id number] Tom B Renaux 12/09/2022 2 [place] [id number] Tom B Renaux [id number] Tom B Renaux Notes Date Note Type [...] weeks for next catheter change. Nenita song [facility] 09/23/2022 13:22:32 10/21/2022 text/html HPI Notes: Pt he re for catheter change Jenna song [facility] 10/21/2022 13:21:54 11/11/2022 text/html HPI Notes: 77M w ith urinary retention. Hospitalization at [facility] from 04/30-05/30 for MSSA bacteremia [...] coordinate their care. Kristopher Barrientos MD, PHD [address] [place] [address],[address], [place], [address], [facility] 11/11/2022 17:49:57 12/09/2022 text/html HPI Notes: Pt of Dr PALMER, here for TOV recommended at 11/11/22 visit Jenna song, [facility] 12/09/2022 12:43:22
--- OUTSIDE RECORDS SUMMARY | 2024-03-26 11:35 | XMS_ITS | Clinical Summary ---
Author Organization [facility] Address [place], [place] [address] Care Team Providers Care Windshield Repair Technician Name Role Phone Post, Dave Velazquez MD Primary Care Provider Moshe Enciso MD Unavailable Arie Justin MD Unavailable [phone] [facility], [place] Unavailable [phone] Murali Hoover DPM Unavailable [phone] Allergies No known active allergies Medications [...] to Care Guide Pamella Brennan Phone number [phone]. Alcohol abuse 06/02/2010 03/26/2019 Overview: Sober since [...] 36.7 ??C (98 ??F) 06/29/2022 8:43 AM WATCH HAIRSPRING ASSEMBLER Respiratory Rate 18 06/29/2022 8:43 AM WATCH HAIRSPRING ASSEMBLER Oxygen Saturation 96% 07/21/2023 1:34 PM WATCH HAIRSPRING ASSEMBLER Inhaled Oxygen Concentration - - Weight 107 kg (236 lb) 11/03/2023 11:13 AM CDT w ith shoes Height 180.3 cm (5' 10.98) 07/21/2023 1:[address] Body Mass Index 32.93 07/21/2023 1:34 PM WATCH HAIRSPRING ASSEMBLER Plan of Treatment Health Maintenance Due Date [...] 07/16/2020, 04/21/2020 Medical Devices Implanted Type Area Bench Assembly Inspector Device Identifier Shelf Expiration Date Model / Serial / Lot [id number] - [id number] Implanted:Qty: 1 on 09/20/2021 at [facility] Right: Foot [employer] AR-8725-4 4H / / Description:COMPRESSION FT S CREWS CANNULATED, 2.5 MICRO 44MM LOAD 4 7 [id number] [facility]-1530p - [id number] Implanted:Qty: 1 on 09/20/2021 at [facility] Right: Foot [employer] 03/30/2025 AR-1530P- CP / / [id number] Description:FOREFOOT INTERNA L BRACE IMPLANT SYSTEM, PEEK Screw 4.50m87fd Bio Compositetenodesis Disp Oil Pump Station Operator Chief Pk - [id number] Implanted:Qty: 1 on 09/20/2021 at [facility] Right: Foot [employer] 08/30/2022 AR-1547CD S / / [id number] Ancr Sut 1.3mm Dx Fibertak Suturetape 2 Ndl 26.2mm /2 [facility] - [id number] Implanted:Qty: 1 on 09/20/2021 at [facility] Right: Foot [employer] 06/29/2026 AR-8990ST / / [id number] Explanted Type Area Bench Assembly Inspector Device Identifier Shelf Expiration Date Model / Serial / Lot Wire Kirs .[id number] Smooth6/Pk Depuy/Héctor - [id number] Explanted:Qty: 1 on 09/20/2021 at [facility] Right: Foot [employer] / / Description:LOAD 4 8 [id number] [facility]-40 - [id number] Explanted:Qty: 1 on 09/20/2021 at [facility] Right: Foot [employer] AR-8737-40 / / Description:2.5 MICRO COMPRE SSION FT DRILLS AND DISPOSABLES, GUIDEWIRE W TROCAR TIP, THREADED, 0.34 IN (.86MM) LOAD 4 7 [id number] Procedures Procedure Name Priority Date/Time Associated Diagnosis Comments CT CHEST PE STUDY Routine 05/10/2022 7:5 0 PM CDT OCCULT BLOOD IFOBT STOOL Routine 07/03/2013 7:00 PM WATCH HAIRSPRING ASSEMBLER Screening for colon cancer from Last 3 [...] Occult Blood Stool (IFOBT) (07/03/2013 7:00 PM WATCH HAIRSPRING ASSEMBLER) STOOL BLOOD ,IFOBT Negative Negative, Invalid 07/04/2013 3:03 PM WATCH HAIRSPRING ASSEMBLER [facility] Stool specimen (specimen) STOOL SPECIMEN / Unknown Non-Blood / Unknown 07/03/2013 7:00 PM WATCH HAIRSPRING ASSEMBLER 07/04/2013 2:39 PM WATCH HAIRSPRING ASSEMBLER Dave Garrett MD LABORATORY [facility] [address] [place] [address] from Last 3 Months or Most Recently Relevant to Health Maintenance Advance Directives Documents on File Type Date Recorded Patient Medical Genetics Director Expl anation Healthcare Directive 05/21/2021 3:50 PM [...] Code Status Discussion: Reviewed Preferences Care Teams Windshield Repair Technician Relationship Specialty Start Date End Date Post, Dave Velazquez MD PCP - General 06/02/10 Moshe Enciso MD [address] [place], [place] [address] Endocrinology Endocrinology 01/04/18 [place] [address] [place], [place] [address] Surgery - Ophthalmology 03/22/18 [facility] [place] [address] [place], [place] [address] 06/08/21 Murali Hoover DPM [address] [place] [address] Surgery - Podiatric 01/03/23
== END 2024-03-26 11:32 | disposition home or self-care (01) ==
LOC: WOUND 11:31
PROVIDERS: Visit Provider Nurse Practitioner Family
DX: E11.621 Type 2 diabetes mellitus with foot ulcer (principal); L97.512 Non-pressure chronic ulcer of other part of right foot with fat layer exposed; I89.0 Lymphedema, not elsewhere classified
CPT/HCPCS: 11042

== ENCOUNTER 2024-04-02 11:22 | Outpatient (CLI) | payer MEDICARE, BC, SELFPAY ==
--- OUTSIDE RECORDS SUMMARY | 2024-04-02 11:23 | XMS_ITS | Referral Summary ---
Author Organization [facility] Address [address] [place] [address] Care Team Providers Care Dean Of Admissions Name Role Phone Post, Dave Wakefield Primary Care Provider [phone] Medications Medication Sig Dispensed Refills Start Date [...] Comments Blood Pressure 148/85 06/26/2018 5:58 PM PROSTHODONTIST/EDUCATOR Pulse 90 06/26/2018 5:58 PM PROSTHODONTIST/EDUCATOR Temperature 36.6 ??C (97.8 ??F) 06/26/2018 5:58 PM CS T Respiratory Rate 18 06/26/2018 5:58 PM PROSTHODONTIST/EDUCATOR Oxygen Saturation 95% 06/26/2018 7:00 PM PROSTHODONTIST/EDUCATOR Inhaled Oxygen Concentration - - Weight 112 kg (247 lb) 06/26/2018 5:58 PM PROSTHODONTIST/EDUCATOR Height 180.3 cm (5' 11) 06/26/2018 5:58 PM PROSTHODONTIST/EDUCATOR Body Mass Index 34.45 06/26/2018 5:58 PM PROSTHODONTIST/EDUCATOR Plan of Treatment Not on file Care Teams Dean Of Admissions Relationship Specialty Start Date End Date Post, Dave Wakefield PCP - General Internal Medicine 06/26/18
--- OUTSIDE RECORDS SUMMARY | 2024-04-02 11:23 | XMS_ITS | Continuity of Care Document ---
Author Name [facility] Organization [facility] Care Team Providers Care Tree Driller Name Role Phone [facility] Unavailable Unavailable Problems Combined list of problems from Department of Defense and Veterans Affairs facilities. It does not include entries that were removed or entered in error. Problem Status Onset Date Problem Type Date of Resolution Comments Source Exposure to potentially hazardous substance ([facility] [[email or web address] [id number]) Active 10/05/19 24 Condition Oct 05, 2023 Entered By: VIJI VIVAS [facility]: [facility] Documentation Initiative [facility] Depressive Disorder NOS * (ICD-9-CM 311./300.4) Active Condition [facility] Diabetes mellitus (SNOMED CT 19963086) Active Condition [facility] Diabetic neuropathy Active Condition [facility] Foot Pain (ICD-9-CM 719.47) Active Condition Aug 26 10 Entered By: MALINA WORLEY Comment: left 5th metatarsal fracture [facility] History of amputation of lesser toe Active Condition [facility] Hyperlipidemia (SNOMED CT 21807734) Active Condition [facility] Hyperuricemia Active Condition [facility] Osteopenia Active Condition [facility] Other Iatrogenic Hypotension Active Condition [facility] Personal History of Alcoholism (ICD-9-CM V11.3) Active Condition [facility] Tobacco user (SNOMED CT 323355929) Active Condition [facility] Diagnosis: ICD-10-CM E11.42 Type 2 diabetes mellitus with diabetic polyneuropathy Active Diagnosis [facility] Diagnosis: ICD-10-CM E11.621 Type 2 diabetes mellitus with foot ulcer Active Diagnosis [facility] Diagnosis: ICD-10-CM Z77.29 Contact with and exposure to other hazardous substances Active Diagnosis [facility] Medications Combined list of outpatient medications [...] ed by: CHARLEE FISH Document ed at: [facility] ORAL ACTIVE CHARLEE FISH 2022 [facility] ASPIRIN 81MG TAB,EC ASPIRIN 81MG TAB,EC Non-VA TAKE ONE TABLET BY MOUTH EVERY DAY Mar 13, 2007 Non-VA Document ed by: MARY CHOUDHARY Document ed at: [facility] ORAL ACTIVE JEFF CHOUDHARY A 2006 [facility] ATORVASTATI N CA 40MG TAB ATORVAST ATIN CA 40MG TAB Active TAKE ONE TABLET BY MOUTH EVERY DAY FOR CHOLESTE ROL Apr 11, 2023 90 Apr 11, 2024 [id number] December 17, [address] [facility] ORAL ACTIVE 04/11/2024 [id number] CHARLEE FISH 2022 90 [facility] ATORVASTATI N CA 40MG TAB ATORVAST ATIN CA 40MG TAB Disconti nued TAKE ONE TABLET BY MOUTH EVERY DAY FOR CHOLESTE ROL Jul 14, 2022 90 Jul 15, 2023 [id number] Mar 31, 2023 NAIDL,TO DD [facility] ORAL DISCONT INUED 07/15/2023 [id number] NAIDL,TOD D 2022 90 [facility] CHOLECALCIF QUINTIN TAB CHOLECAL CIFEROL TAB Non-VA TAKE 5000 UNITS BY MOUTH EVERY DAY Aug 21, 2022 Non-VA Document ed by: CHARLEE FISH Document ed at: [facility] ORAL ACTIVE CHARLEE FISH 2022 [facility] COENZYME Q10 CAP/TAB COENZYME Q10 CAP/TAB Non-VA TAKE 1 CAPSULE BY MOUTH EVERY DAY Aug 21, 2022 Non-VA Document ed by: CHARLEE FISH Document ed at: [facility] ORAL ACTIVE CHARLEE FISH 2022 [facility] CYANOCOBALA MIN 1000MCG TAB CYANOCOB ALAMIN 1000MCG TAB Non-VA TAKE ONE TABLET BY MOUTH EVERY DAY Mar 09, 2022 Non-VA Document ed by: MAUREEN BRITO DD Document ed at: [facility] ORAL ACTIVE DEAN BRITO 2021 [facility] DICLOFENAC NA 1% GEL,TOP DICLOFEN AC NA 1% GEL,TOP APPLY 4 GRAMS TOPICALL Y FOUR TIMES A DAY NEEDED FOR JOINT PAIN JOINT PAIN Mar 22, 2023 100 Mar 22, 2024 [id number] Mar 22, [address] [facility] TOPICA L 03/22/2024 [id number] ABE CHARLEE A 2022 100 [facility] FINASTERIDE 5MG TAB FINASTER RACHEL 5MG TAB Active TAKE ONE TABLET BY MOUTH EVERY DAY FOR PROSTATE FOR PROSTATE Apr 11, 2023 90 Apr 11, 2024 [id number] A Jan 08, 2024 FISH CHARLEE Robinson [facility] ORAL ACTIVE 04/11/2024 [id number] CHARLEE FISH 2022 90 [facility] FINASTERIDE 5MG TAB FINASTER RACHEL 5MG TAB Disconti nued TAKE ONE TABLET BY MOUTH EVERY DAY FOR PROSTATE FOR PROSTATE Jul 12, 2022 90 Jul 13, 2023 [id number] Mar 31, [address] [facility] ORAL DISCONT INUED 07/13/2023 [id number] ABE CHARLEE Robinson 2021 90 [facility] FISH OIL 1000MG (500MG DHA/EPA) CAP,ORAL FISH OIL 1000MG (500MG DHA/EPA) CAP,ORAL Non-VA TAKE 1 CAPSULE BY MOUTH TWICE A DAY Mar 13, 2007 Non-VA Document ed by: MARY CHOUDHARY A Document ed at: [facility] ORAL ACTIVE JEFF CHOUDHARY ER A 2006 [facility] INSULIN,GLA RGINE-YFGN 100UNIT/ML INJ PEN,3ML INSULIN, GLARGINE -YFGN 100UNIT/ ML INJ PEN,3ML Active INJECT 24 UNITS UNDER THE SKIN EVERY EVENING FOR DIABETES FOR DIABETES Aug 29, 2023 5 Aug 29, 2024 [id number] Mar 14, 2024 NAIDL,TO DD [facility] SUBCUT ANEOUS ACTIVE 08/29/2024 [id number] NAIDL,TOD D 2023 5 [facility] INSULIN,GLA RGINE-YFGN 100UNIT/ML INJ PEN,3ML INSULIN, GLARGINE -YFGN 100UNIT/ ML INJ PEN,3ML Disconti nued INJECT 22 UNITS UNDER THE SKIN AT BEDTIME FOR DIABETES FOR DIABETES Jan 06, 2023 5 Jan 07, 2024 [id number] Jul 25, 2023 NAIDL,TO DD [facility] SUBCUT ANEOUS DISCONT INUED (EDIT) 01/07/2024 [id number] NAIDL,TOD D 2022 5 [facility] INSULIN,GLA RGINE-YFGN 100UNIT/ML INJ PEN,3ML INSULIN, GLARGINE -YFGN 100UNIT/ ML INJ PEN,3ML Disconti nued INJECT 20 UNITS UNDER THE SKIN AT BEDTIME FOR DIABETES FOR DIABETES December 07, 2022 5 December 08, 2023 [id number] Jan 06, 2023 NAIDL,TO DD [facility] SUBCUT ANEOUS DISCONT INUED (EDIT) 12/08/2023 [id number] NAIDL,TOD D 2022 5 [facility] LIDOCAINE 4% CREAM,TOP LIDOCAIN E 4% CREAM,TO P APPLY MODERATE AMOUNT TOPICALL Y THREE TIMES A DAY FOR PAIN PAIN Mar 22, 2023 30 Mar 22, 2024 [id number] Mar 22, [address] [facility] TOPICA L 03/22/2024 [id number] CHARLEE FISH 2022 30 [facility] MAGNESIUM OXIDE 400MG TAB MAGNESIU M OXIDE 400MG TAB Non-VA TAKE ONE TABLET BY MOUTH EVERY DAY Aug 21, 2022 Non-VA Document ed by: CHARLEE FISH Document ed at: [facility] ORAL ACTIVE CHARLEE FISH 2022 [facility] MENTHOL/MET HYL SALICYLATE (10-15%) LOW CONC. CREAM,TOP MENTHOL/ METHYL SALICYLA TE (10-15%) LOW CONC. CREAM,TO P APPLY THIN LAYER TOPICALL Y THREE TIMES A DAY FOR MUSCLE PAIN MUSLCE PAIN Mar 22, 2023 90 Mar 22, 2024 [id number] Mar 22, [address] [facility] TOPICA L 03/22/2024 [id number] CHARLEE FISH 2022 90 [facility] METFORMIN HCL 1000MG TAB METFORMI N HCL 1000MG TAB Active TAKE ONE TABLET BY MOUTH TWICE A DAY FOR DIABETES Apr 11, 2023 180 Apr 11, 2024 [id number] E Feb 19, [address] [facility] ORAL ACTIVE 04/11/2024 [id number] CHARLEE FISH 2022 180 [facility] METFORMIN HCL 1000MG TAB METFORMI N HCL 1000MG TAB Disconti nued TAKE ONE TABLET BY MOUTH TWICE A DAY FOR DIABETES Jul 14, 2022 180 Jul 15, 2023 [id number] D Apr 06, 2023 NAIDL,TO DD [facility] ORAL DISCONT INUED 07/15/2023 [id number] NAIDL,TOD D 2022 180 [facility] OMEPRAZOLE 20MG CAP,EC OMEPRAZO LE 20MG CAP,EC TAKE ONE CAPSULE BY MOUTH EVERY DAY ON AN EMPTY STOMACH, AT LEAST 30 MINUTES PRIOR TO A MEAL FOR GERD GERD Mar 22, 2023 90 Mar 22, 2024 [id number] December 22, [address] [facility] ORAL 03/22/2024 [id number] CHARLEE FISH 2022 90 [facility] SEMAGLUTIDE 1MG/0.75ML INJ,SOLN,PE N,3ML SEMAGLUT RACHEL 1MG/0.75 ML INJ,SOLN ,PEN,3ML Active INJECT 1MG UNDER THE SKIN EVERY WEEK FOR DIABETES FOR DIABETES Nov 07, 2023 1 Nov 07, 2024 [id number] Mar 12, 2024 NAIDL,TO DD [facility] SUBCUT ANEOUS ACTIVE 11/07/2024 [id number] NAIDL,TOD D 2023 1 [facility] SEMAGLUTIDE 1MG/0.75ML INJ,SOLN,PE N,3ML SEMAGLUT RACHEL 1MG/0.75 ML INJ,SOLN ,PEN,3ML Disconti nued INJECT 1MG UNDER THE SKIN EVERY WEEK FOR DIABETES FOR DIABETES Nov 07, 2022 1 Nov 08, 2023 [id number] Nov 06, 2023 NAIDL,TO DD [facility] SUBCUT ANEOUS DISCONT INUED 11/08/2023 [id number] NAIDL,TOD D 2022 1 [facility] TAMSULOSIN HCL 0.4MG CAP TAMSULOS IN HCL 0.4MG CAP Active TAKE ONE CAPSULE BY MOUTH EVERY EVENING PROSTATE Apr 13, 2023 30 Apr 13, 2024 [id number] Mar 14, [address] [facility] ORAL ACTIVE 04/13/2024 [id number] CHARLEE FISH 2022 30 [facility] TAMSULOSIN HCL 0.4MG CAP TAMSULOS IN HCL 0.4MG CAP Disconti nued TAKE ONE CAPSULE BY MOUTH EVERY EVENING PROSTATE Apr 11, 2023 90 Apr 11, 2024 [id number] Apr 21, [address] [facility] ORAL DISCONT INUED 04/11/2024 [id number] CHARLEE FISH 2022 90 [facility] TAMSULOSIN HCL 0.4MG CAP TAMSULOS IN HCL 0.4MG CAP Disconti nued TAKE ONE CAPSULE BY MOUTH EVERY EVENING PROSTATE Aug 03, 2022 90 Aug 04, 2023 [id number] Jan 21, [address] [facility] ORAL DISCONT INUED 08/04/2023 [id number] CHARLEE FISH 2022 90 [facility] TURMERIC CAP/TAB TURMERIC CAP/TAB Non-VA TAKE 500 MG BY MOUTH TWICE A DAY Apr 22, 2019 Non-VA Document ed by: MATTY WOO Document ed at: [facility] ORAL ACTIVE MATTY POWERS 2018 [facility] Allergies, Adverse Reactions, Alerts Combined list of allergies from Department of Defense and Veterans Affairs facilities. It does not include entries that were removed or entered in error. Substance Category Reaction Severity Reaction type Status Date Reported Comments Source VANCOMYCIN Propensity to adverse reactions to drug (finding) [place] active 8 [facility] Immunizations Combined list of available immunizations from the Department of Defense and Veterans Affairs facilities. Immunization Series Date Given Administered By Site Reaction Lot Number CVX Code Drug Event Sales Manager Status Comments Source ZOSTER RECOMBINANT 2 2019 187 complet ed [facility] INFLUENZA, INJECTABLE, QUADRIVALENT, PRESERVATIVE FREE 2019 150 complet ed [facility] ZOSTER RECOMBINANT 1 2019 187 complet ed [facility] INFLUENZA, HIGH-DOSE, QUADRIVALENT 2019 197 complet ed [facility] INFLUENZA, SEASONAL, INJECTABLE, PRESERVATIVE FREE 2017 140 complet ed [facility] INFLUENZA, INJECTABLE, QUADRIVALENT, PRESERVATIVE FREE 2017 150 complet ed [facility] INFLUENZA, INJECTABLE, QUADRIVALENT, PRESERVATIVE FREE 2015 150 complet ed [facility] TDAP 2015 115 complet ed [place] [facility] PNEUMOCOCCAL CONJUGATE PCV 13 2015 133 complet ed [facility] TD (ADULT), 5 LF TETANUS TOXOID, PRESERVATIVE FREE, ADSORBED 2015 113 complet ed [facility] INFLUENZA, INJECTABLE, QUADRIVALENT, PRESERVATIVE FREE 2013 150 complet ed [facility] PNEUMOCOCCAL POLYSACCHARID E PPV23 2010 33 complet ed [facility] INFLUENZA, UNSPECIFIED FORMULATION 2006 88 complet ed [facility] PNEUMOCOCCAL, UNSPECIFIED FORMULATION 2006 109 complet ed [facility] TD(ADULT) UNSPECIFIED FORMULATION 2006 NONE 139 complet ed [facility] TETANUS TOXOID, UNSPECIFIED FORMULATION 2006 NONE 112 complet ed [facility] Results Combined list of recent chemistry, [...] Aug 21, 2022 03:48 PM Reporting Lab: [facility] [phone] Performing Lab: [facility] [phone] [facility] BASIC METABOLIC PANEL+MG CREATININE [MASS/VOLUM E] IN SERUM OR PLASMA 1.2 mg/dL 0.7 - 1.2 03/22 Specimen Type: PLASMA No comment entered. Ordering Provider: ME LEEROY FISH Report Released Date/Time: Aug 21, 2022 03:48 PM Reporting Lab: [facility] [address] Performing Lab: [facility] [address] [facility] BASIC METABOLIC PANEL+MG UREA NITROGEN [MASS/VOLUM E] IN SERUM OR PLASMA 15 mg/dL 8 - 03/22 Specimen Type: PLASMA No comment entered. Ordering Provider: ME LEEROY FISH Report Released Date/Time: Aug 21, 2022 03:48 PM Reporting Lab: [facility] [phone] Performing Lab: [facility] [address] [facility] BASIC METABOLIC PANEL+MG GLUCOSE [MASS/VOLUM E] IN SERUM OR PLASMA 145 mg/dL 70 - 100 03/22 H Specimen Type: PLASMA No comment entered. Ordering Provider: ME LEEROY FISH Report Released Date/Time: Aug 21, 2022 03:48 PM Reporting Lab: [facility] [phone] Performing Lab: [facility] [phone] [facility] BASIC METABOLIC PANEL+MG SODIUM [MOLES/VOLU ME] IN SERUM OR PLASMA 138 mmol/L 136 - 145 03/22 Specimen Type: PLASMA No comment entered. Ordering Provider: ME LEEROY FIHS Report Released Date/Time: Aug 21, 2022 03:48 PM Reporting Lab: [facility] [address] Performing Lab: [facility] [address] [facility] BASIC METABOLIC PANEL+MG POTASSIUM [MOLES/VOLU ME] IN SERUM OR PLASMA 4.5 mmol/L 3.5 - 5.1 03/22 Specimen Type: PLASMA No comment entered. Ordering Provider: ME LEEROY FISH Report Released Date/Time: Aug 21, 2022 03:48 PM Reporting Lab: [facility] [address] Performing Lab: [facility] [address] [facility] METABOLIC PANEL+MG CHLORIDE [MOLES/VOLU ME] IN SERUM OR PLASMA 101 mmol/L 98 - 107 03/22 Specimen Type: PLASMA No comment entered. Ordering Provider: ME LEEROY FISH Report Released Date/Time: Aug 21, 2022 03:48 PM Reporting Lab: [facility] [address] Performing Lab: [facility] [phone] [facility] METABOLIC PANEL+MG CARBON DIOXIDE, TOTAL [MOLES/VOLU ME] IN SERUM OR PLASMA 27 mmol/L 22 - 29 03/22 Specimen Type: PLASMA No comment entered. Ordering Provider: ME LEEROY FISH Report Released Date/Time: Aug 21, 2022 03:48 PM Reporting Lab: [facility] [phone] Performing Lab: [facility] [address] [facility] METABOLIC PANEL+MG CALCIUM [MASS/VOLUM E] IN SERUM OR PLASMA 10.0 mg/dL 8.4 - 10.2 03/22 Specimen Type: PLASMA No comment entered. Ordering Provider: ME LEEROY FISH Report Released Date/Time: Aug 21, 2022 03:48 PM Reporting Lab: [facility] [address] Performing Lab: [facility] [phone] [facility] BASIC METABOLIC PANEL+MG MAGNESIUM [MASS/VOLUM E] IN SERUM OR PLASMA 1.9 mg/dL 1.6 - 2.6 03/22 Specimen Type: PLASMA No comment entered. Ordering Provider: ME LEEROY FISH Report Released Date/Time: Aug 21, 2022 03:48 PM Reporting Lab: [facility] [phone] Performing Lab: [facility] [address] [facility] BASIC METABOLIC PANEL+MG ANION GAP IN SERUM OR PLASMA 10 mmol/L 5 - 15 03/22 Specimen Type: PLASMA No comment entered. Ordering Provider: ME LEEROY FISH Report Released Date/Time: Aug 21, 2022 03:48 PM Reporting Lab: [facility] [address] Performing Lab: [facility] [address] [facility] BASIC METABOLIC PANEL+MG GLOMERULAR FILTRATION RATE/1.73 SQ M.PREDICTED [VOLUME RATE/AREA] IN SERUM, PLASMA OR BLOOD BY CREATININE- BASED FORMULA (CKD-EPI 2020) 63 60 03/22 Specimen Type: PLASMA No comment entered. Ordering Provider: ME LEEROY FISH Report Released Date/Time: Aug 21, 2022 03:48 PM Reporting Lab: [facility] [phone] Performing Lab: [facility] [phone] [facility] HEMOGLOBI N A1C HEMOGLOBIN A1C/HEMOGLO BIN.TOTAL [...] December 22, 2021 03:46 PM Reporting Lab: [place] [address] Performing Lab: [facility] [address] [facility] BASIC METABOLIC PANEL+MG CREATININE [MASS/VOLUM E] IN SERUM OR PLASMA 0.9 mg/dL 0.7 - 1.2 08/18 Specimen Type: PLASMA No comment entered. Ordering Provider: ME LEEROY FISH Report Released Date/Time: December 22, 2021 03:46 PM Reporting Lab: [place] [phone] Performing Lab: [facility] [address] [facility] BASIC METABOLIC PANEL+MG UREA NITROGEN [MASS/VOLUM E] IN SERUM OR PLASMA 12 mg/dL 8 - 26 08/18 Specimen Type: PLASMA No comment entered. Ordering Provider: ME LEEROY FISH Report Released Date/Time: December 22, 2021 03:46 PM Reporting Lab: [facility] [address] Performing Lab: [facility] [address] [facility] BASIC METABOLIC PANEL+MG GLUCOSE [MASS/VOLUM E] IN SERUM OR PLASMA 184 mg/dL 70 - 100 08/18 H Specimen Type: PLASMA No comment entered. Ordering Provider: ME LEEROY FISH Report Released Date/Time: December 22, 2021 03:46 PM Reporting Lab: [facility] [address] Performing Lab: [facility] [address] [facility] BASIC METABOLIC PANEL+MG SODIUM [MOLES/VOLU ME] IN SERUM OR PLASMA 137 mmol/L 136 - 145 08/18 Specimen Type: PLASMA No comment entered. Ordering Provider: ME LEEROY FISH Report Released Date/Time: December 22, 2021 03:46 PM Reporting Lab: [facility] [address] Performing Lab: [facility] [address] [facility] BASIC METABOLIC PANEL+MG POTASSIUM [MOLES/VOLU ME] IN SERUM OR PLASMA 3.9 mmol/L 3.5 - 5.1 08/18 Specimen Type: PLASMA No comment entered. Ordering Provider: ME LEEROY FISH Report Released Date/Time: December 22, 2021 03:46 PM Reporting Lab: [facility] [phone] Performing Lab: [facility] [address] [place] METABOLIC PANEL+MG CHLORIDE [MOLES/VOLU ME] IN SERUM OR PLASMA 102 mmol/L 98 - 107 08/18 Specimen Type: PLASMA No comment entered. Ordering Provider: ME LEEROY FISH Report Released Date/Time: December 22, 2021 03:46 PM Reporting Lab: [facility] [address] Performing Lab: [facility] [phone] [place] BASIC METABOLIC PANEL+MG CARBON DIOXIDE, TOTAL [MOLES/VOLU ME] IN SERUM OR PLASMA 26 mmol/L 22 - 29 08/18 Specimen Type: PLASMA No comment entered. Ordering Provider: ME LEEROY FISH Report Released Date/Time: December 22, 2021 03:46 PM Reporting Lab: [facility] [address] Performing Lab: [facility] [address] [place] BAS[facility] METABOLIC PANEL+MG CALCIUM [MASS/VOLUM E] IN SERUM OR PLASMA 9.4 mg/dL 8.4 - 10.2 08/18 Specimen Type: PLASMA No comment entered. Ordering Provider: ME LEEROY FISH Report Released Date/Time: December 22, 2021 03:46 PM Reporting Lab: [facility] [phone] Performing Lab: [facility] [address] [facility] BASIC METABOLIC PANEL+MG MAGNESIUM [MASS/VOLUM E] IN SERUM OR PLASMA 1.6 mg/dL 1.6 - 2.6 08/18 Specimen Type: PLASMA No comment entered. Ordering Provider: ME LEEROY FISH Report Released Date/Time: December 22, 2021 03:46 PM Reporting Lab: [facility] [address] Performing Lab: [facility] [address] [facility] BASIC METABOLIC PANEL+MG ANION GAP IN SERUM OR PLASMA 9 mmol/L 5 - 15 08/18 Specimen Type: PLASMA No comment entered. Ordering Provider: ME LEEROY FISH Report Released Date/Time: December 22, 2021 03:46 PM Reporting Lab: [facility] [address] Performing Lab: [facility] [address] [facility] BASIC METABOLIC PANEL+MG GLOMERULAR FILTRATION RATE/1.73 SQ M.PREDICTED [VOLUME RATE/AREA] IN SERUM, PLASMA OR BLOOD BY CREATININE- BASED FORMULA (CKD-EPI) 89 60 08/18 Specimen Type: PLASMA No comment entered. Ordering Provider: ME LEEROY FISH Report Released Date/Time: December 22, 2021 03:46 PM Reporting Lab: [facility] [address] Performing Lab: [facility] [phone] [facility] Encounters Combined list of: 1) 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 2) Encounters from the Department of Defense facilities going back up to 280 months. Location Location Details Encounter Type Encounter Number Reason For Visit Attending Provider ADM Date DC Date Status Disposition Source [facility] PRO PHONE CALL 21-30 MIN [id number] Diagnos is: ICD-10- CM E11.42 Type 2 diabete s mellitu s with diabeti c polyneu ropathy
NAIDL,KARI 11/07 [facility] PHONE CALL 11-20 MIN [id number] Diagnos is: ICD-10- CM E11.42 Type 2 diabete s mellitu s with diabeti c polyneu ropathy
NAIDL,KARI 12[facility]07 [facility] [id number] Diagnos is: ICD-10- CM Z77.29 Contact with and exposur e to other [facility]<br/ > JEANINEJESSICA 12/27 [facility] Outpatient Encounter [id number] Diagnos is: ICD-10- CM Z77.29 Contact with and exposur e to other [facility]<br/ > JEANINE,JESSICA HARDINE J 12/27 [facility] PRO PHONE CALL 11-20 MIN [id number] Diagnos is: ICD-10- CM E11.42 Type 2 diabete s mellitu s with diabeti c polyneu ropathy
NAIDL,KARI 01/06 [facility] [id number] 03/10 [facility] PRO PHONE CALL 11-20 MIN [id number] Diagnos is: ICD-10- CM E11.42 Type 2 diabete s mellitu s with diabeti c polyneu ropathy
NAIDL,KARI 03/14 [facility] O/P EST LOW 20-29 MIN [id number] Diagnos is: ICD-10- CM E11.621 Type 2 diabete s mellitu s with foot ulcer<b r/> Rhiannon FISH A 03/22 [facility] PRO PHONE CALL 21-30 MIN [id number] Diagnos is: ICD-10- CM E11.42 Type 2 diabete s mellitu s with diabeti c polyneu ropathy
NAIDL,KARI 04/18 [facility] PRO PHONE CALL 21-30 MIN [id number] Diagnos is: ICD-10- CM E11.42 Type 2 diabete s mellitu s with diabeti c polyneu ropathy
NAIDL,KARI 07/11 [place] [facility] [place] [facility] MTMS BY PHARM ADDL 15 MIN [id number] Diagnos is: ICD-10- CM E11.42 Type 2 diabete s mellitu s with diabeti c polyneu ropathy
NAIDL,KARI 08/29 [place] [facility] [place] [facility] MT[facility] BY PHARM EST 15 MIN [id number] [phone] Diagnos is: ICD-10- CM E11.42 Type 2 diabete s mellitu s with diabeti c polyneu ropathy
AWKER,SOLEDAD L 10/10 [place] [facility] [place] [facility] Outpatient Encounter [phone] 10/16 [place] [facility] [place] [facility] MTMS BY PHARM EST 15 MIN [id number] Diagnos is: ICD-10- CM E11.621 Type 2 diabete s mellitu s with foot ulcer<b r/> NAIDL,KARI 11/06 [place] [facility] [place] [facility] MTMS BY PHARM ADDL 15 MIN [id number] [phone] Diagnos is: ICD-10- CM E11.42 Type 2 diabete s mellitu s with diabeti c polyneu ropathy
NAIDL,KARI 11/22 [place] [facility] [place] [facility] MT[facility] BY PHARM ADDL 15 MIN [id number] [phone] Diagnos is: ICD-10- CM E11.42 Type 2 diabete s mellitu s with diabeti c polyneu ropathy
NAIDL,KARI 01/17 [place] [facility] [place] [facility] [id number] [phone] Diagnos is: ICD-10- CM E11.42 Type 2 diabete s mellitu s with diabeti c polyneu ropathy
DAWNA MILAGRO 01/18 [place] [facility] [place] [facility] QNHP OL DIG ASSMT&MGMT 5-10 [id number] [id number] Diagnos is: ICD-10- CM E11.42 Type 2 diabete s mellitu s with diabeti c polyneu ropathy
MOE CHOWDHURY 01/18 [facility] [place] [facility] MT[facility] BY PHARM EST 15 MIN [phone] Diagnos is: ICD-10- CM E11.42 Type 2 diabete s mellitu s with diabeti c polyneu ropathy
NAIDJignesh,KARI 02/21 [place] [facility] Out[facility] Encounter [id number] RORY CAPPS 02/26 [place] [facility] Out[facility] Encounter [id number] 03/14 [place] [facility] QNHP OL DIG ASSMT&MGMT 11-20 [id number] Diagnos is: ICD-10- CM E11.42 Type 2 diabete s mellitu s with diabeti c polyneu ropathy
NAIDL,KARI 03/[address] [place] [facility] Social History Combined list of available smoking, tobacco, and other social history from Department of Defense and Veterans Affairs facilities. Social History Type Response Date Comment Sourc e Tobacco smoking status SDIS VA-TOBACCO QUIT 15 YRS OR MORE 08/18/2022 [facility] History of tobacco use SC-TOBACCO FORMER USER 08/18/2022 [facility] History of tobacco use VA-TOBACCO FORMER USER 05/03/2021 [facility] History of tobacco use VA-TOBACCO FORMER USER 04/21/2020 [facility] History of tobacco use FORMER TOBACCO US E >1Y <7Y 04/03/2018 [facility] History of tobacco use CURRENT TOBACCO USER 03/09/2007 [facility] Plan of Care List of future care activities from Department of Veterans Affairs facilities. Additional future care activities may be listed in the Assessment and Plan section. Date/Time Care Activity Care Activity Detail Facili ty 04/09/2024 AMBULATORY - NONE AMBULATORY - NONE [facility] Advance Directives List of completed, amended, or rescinded Advance Directives on record at Department of [facility] Affairs facilities. An actual copy of the Directive is not included. Date Advance Directive Provider Source 06/22/2021 ADVANCE DIRECTIVE DISCUSSION ALLYSON GRAF [facility] 06/22/2021 ADVANCE DIRECTIVE ALLYSON GRAF [facility] 03/09/2007 ADVANCE DIRECTIVE SOLEDAD WOLFF [facility]
--- OUTSIDE RECORDS SUMMARY | 2024-04-02 11:23 | XMS_ITS | Clinical Summary ---
Author Organization [facility] Address [place], [place] [address] Care Team Providers Care Keypuncher Name Role Phone Post, Dave Velazquez MD Primary Care Provider [phone] Moshe Enciso MD Unavailable [phone] Arie Justin MD Unavailable [phone] [facility] Un[facility] [phone] Murali Hoover DPM Unavailable [phone] Allergies No known active allergies Medications [...] Bottom LEFT foot Sepsis due to methicillin tejdaa sceptible Staphylococcus aureus (MSSA) without acute organ [...] to Care Guide Pamella Brennan Phone number [phone]. Alcohol abuse 06/02/2010 03/26/2019 Overview: Sober since [...] 36.7 ??C (98 ??F) 06/29/2022 8:43 AM NAVAL MARINE ENGINEER Respiratory Rate 18 06/29/2022 8:43 AM NAVAL MARINE ENGINEER Oxygen Saturation 96% 07/21/2023 1:34 PM NAVAL MARINE ENGINEER Inhaled Oxygen Concentration - - Weight 107 kg (236 lb) 11/03/2023 11:13 AM CDT w ith shoes Height 180.3 cm (5' 10.98) 07/21/2023 1:[address] Body Mass Index 32.93 07/21/2023 1:34 PM NAVAL MARINE ENGINEER Plan of Treatment Health Maintenance Due Date [...] 07/16/2020, 04/21/2020 Medical Devices Implanted Type Area Hub Inventory Specialist Device Identifier Shelf Expiration Date Model / Serial / Lot [id number]-[id number] - [id number] Implanted:Qty: 1 on 09/20/2021 at [facility] Right: Foot [employer] AR-8725-4 4H / / Description:COMPRESSION FT S CREWS CANNULATED, 2.5 MICRO 44MM LOAD 4 [id number] [facility]-1530p - [id number] Implanted:Qty: 1 on 09/20/2021 at [facility] Right: Foot [employer] 03/30/2025 AR-1530P- CP / / [id number] Description:FOREFOOT INTERNA L BRACE IMPLANT SYSTEM, PEEK Screw 4.54z81iz Bio Compositetenodesis Disp Machine Cleaner Pk - [id number] Implanted:Qty: 1 on 09/20/2021 at [facility] Right: Foot [employer] 08/30/2022 AR-1547CD S / / [id number] Ancr Sut 1.3mm Dx Fibertak Suturetape 2 Ndl 26.2mm /2 [facility] - [id number] Implanted:Qty: 1 on 09/20/2021 at [facility] Right: Foot [employer] 06/29/2026 AR-8990ST / / [id number] Explanted Type Area Hub Inventory Specialist Device Identifier Shelf Expiration Date Model / Serial / Lot Wire Kirs .[id number] Smooth6/Pk Depuy/Héctor - [id number] Explanted:Qty: 1 on 09/20/2021 at [facility] Right: Foot [employer] / / Description:LOAD 4 8 [id number] [facility]8737-40 - [id number] Explanted:Qty: 1 on 09/20/2021 at [facility] Right: Foot [employer] AR-8737-40 / / Description:2.5 MICRO COMPRE SSION FT DRILLS AND DISPOSABLES, GUIDEWIRE W TROCAR TIP, THREADED, 0.34 IN (.86MM) LOAD 4 7 [id number] Procedures Procedure Name Priority Date/Time Associated Diagnosis Comments CT CHEST PE STUDY Routine 05/10/2022 7:5 0 PM CDT OCCULT BLOOD IFOBT STOOL Routine 07/03/2013 7:00 PM NAVAL MARINE ENGINEER Screening for colon cancer from Last 3 [...] Occult Blood Stool (IFOBT) (07/03/2013 7:00 PM NAVAL MARINE ENGINEER) STOOL BLOOD ,IFOBT Negative Negative, Invalid 07/04/2013 3:03 PM NAVAL MARINE ENGINEER [facility] Stool specimen (specimen) STOOL SPECIMEN / Unknown Non-Blood / Unknown 07/03/2013 7:00 PM NAVAL MARINE ENGINEER 07/04/2013 2:39 PM NAVAL MARINE ENGINEER Dave Garrett MD LABORATORY [facility] [address] [place] [address] from Last 3 Months or Most Recently Relevant to Health Maintenance Advance Directives Documents on File Type Date Recorded Patient Gunnery/Ordnance Officer Expl anation Healthcare Directive 05/21/2021 3:50 PM [...] Code Status Discussion: Reviewed Preferences Care Teams Keypuncher Relationship Specialty Start Date End Date Post, Dave Velazquez MD PCP - General 06/02/10 Moshe Enciso MD [address] [place], [place] [address] Endocrinology Endocrinology 01/04/18 [place] [address] [place], [place] [id number] Surgery - Ophthalmology 03/22/18 [facility] [place] [address] [place], [place] [address] 06/08/21 Murali Hoover DPM [address] [place] [address] Surgery - Podiatric 01/03/23
--- OUTSIDE RECORDS SUMMARY | 2024-04-02 11:23 | XMS_ITS | Clinical Summary ---
Author Organization [facility] Address [address] [place] [address] Care Team Providers Care Online User Experience Strategist Name Role Phone Post, Dave Wakefield Primary Care Provider [phone] Medications Medication Sig Dispensed Refills Start Date [...] Comments Blood Pressure 148/85 06/26/2018 5:58 PM MARKET DEVELOPMENT ANALYST Pulse 90 06/26/2018 5:58 PM MARKET DEVELOPMENT ANALYST Temperature 36.6 ??C (97.8 ??F) 06/26/2018 5:58 PM CS T Respiratory Rate 18 06/26/2018 5:58 PM MARKET DEVELOPMENT ANALYST Oxygen Saturation 95% 06/26/2018 7:00 PM MARKET DEVELOPMENT ANALYST Inhaled Oxygen Concentration - - Weight 112 kg (247 lb) 06/26/2018 5:58 PM MARKET DEVELOPMENT ANALYST Height 180.3 cm (5' 11) 06/26/2018 5:58 PM MARKET DEVELOPMENT ANALYST Body Mass Index 34.45 06/26/2018 5:58 PM MARKET DEVELOPMENT ANALYST Plan of Treatment Not on file Care Teams Online User Experience Strategist Relationship Specialty Start Date End Date Post, Dave Wakefield PCP - General Internal Medicine 06/26/18
--- OUTSIDE RECORDS SUMMARY | 2024-04-02 11:24 | XMS_ITS | Encounter Summary ---
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 [facility] [place] Address [address] [place] [address] Care Team Providers Care Road Commissioner Name Role Phone CHARLEE FISH Primary Care Provider Fe woods Insurance Providers: All historical and current Section [...] MEDIC ARE SUPPL EMENT Jul 31, 2018 [id number] [phone] RODNEYBRITTNEYKANE ALEX PATIENT [place] MEDICARE SUPPLEMEN [place] MEDIC ARE SUPPL EMENT Jul 31, 2018 [id number] [phone] RENBRITTNEYKANE ALEX PATIENT [place] [facility] (WNR) MEDICARE ADVANTAGE [facility] (WNR) Jul 31, 2017 [id number] [phone] RENBRITTNEY,KANE ALEX PATIENT [place] MEDICARE SUPPLEMEN [place]OT MEDIC ARE SUPPL EMENT Jul 31, 2018 [id number] [phone] RENBRITTNEY,KANE ALEX PATIENT [place] SUPP[place]MEN [place] MEDIC ARE SUPPL EMENT Jul 31, 2018 [id number] [phone] RENBRITTNEY,KANE ALEX PATIENT MEDICARE ([place]) MEDICARE ([place]) PART A May 31, 2011 PART A [id number] [phone] KANE PÉREZ PATIENT MEDICARE ([place]) MEDICARE (M) PART B May 31, 2011 PART B [id number] [phone] KANE PÉREZ PATIENT Selected Encounter This section includes the information on record at [place] for the Encounter. Date/Time Encounter Type Encounter Description Reason Pro vider Source IHE Encounter Template Text not used by [place] Advance Directives: All historical and current Section Date Range: From patient's date of to the date document was created. This section includes ALL of a patient's completed or amended [place] Advance and Rescinded Directives. The entries below indicate that a directive exists for the patient, but an actual copy is not included with this document. The data comes from all [place] facilities. Date Advance Directives Provider Source Jun 22, 2021 ADVANCE DIRECTIVE DISCUSSION ALLYSON GRAF [facility] Jun 22, 2021 ADVANCE DIRECTIVE ALLYSON GRAF [facility] Mar 09, 2007 ADVANCE DIRECTIVE SOLEDAD WOLFF [facility]
--- OUTSIDE RECORDS SUMMARY | 2024-04-02 11:24 | XMS_ITS | Encounter Summary ---
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 Address [address] [place] [address] Care Team Providers Care Marina Porter Name Role Phone CHARLEE FISH Primary Care Provider [facility] le Insurance Providers: All historical and [...] MEDIC ARE SUPPL EMENT Jul 31, 2018 [id number] [phone] KANE MANTILLA ALEX PATIENT [place] MEDIC[place] SUPPLEMEN [place] MEDIC ARE SUPPL EMENT Jul 31, 2018 [id number] [phone] RENBRITTNEY,JU ALEX PATIENT [place] [facility] ([place]) MEDICARE ADVANTAGE MCR (WNR) Jul 31, 2017 [id number] [phone] RENBRITTNEY,KANE ALEX PATIENT [place] MEDICARE SUPPLEMEN [place]OT MEDIC ARE SUPPL EMENT Jul 31, 2018 [id number] [phone] RENBRITTNEY,KANE ALEX PATIENT [place] SUPPLEMEN [place] MEDIC ARE SUPPL EMENT Jul 31, 2018 [id number] [phone] KANE MANTILLA PATIENT MEDICARE ([place]NR) MEDICARE ([place]) PART A May 31, 2011 PART A [id number] [phone] KANE MANTILLA PATIENT MEDICARE ([place]) MEDICARE ([place]) PART B May 31, 2011 PART B [id number] [phone] KANE MANTILLA PATIENT Selected Encounter This section includes the information on record at [place] for the Encounter. Date/Time Encounter Type Encounter Description Reason Provider Source Mar 27, 2024 01:53 PM QNHP OL DIG ASSMT&MGMT 11-20 CLINICAL PHARMACY ICD-10-CM E11.42 Type 2 diabetes mellitus with diabetic polyneuropathy KARI BRITO [facility] Encounter Template Text not used by [place] Assessments - Encounter Diagnoses This section includes the primary and secondary diagnoses documented for the Encounter. Date/Time Primary/Secondary Diagnosis Diagnosis Name Provider Source Mar 27, 2024 01:56 PM PRIMARY Type 2 diabetes mellitus with diabetic polyneuropathy KARI BRITO [facility] Plan of Treatment: Future Appointments (+ 6 months) and Future Tests (+/- 45 days) The Plan of Treatment section includes future care activities for the patient from all [place] treatmentfacilities. This section includes future appointments and future orders which are active, pending or scheduled. Future Appointments This section includes appointments that were scheduled to occur 6 months from the date of the Encounter, up to a maximum of 20 appointments. The data comes from all [place] treatment facilities. Appointment Date/Time Appointment Type Appointme nt Facility Name Apr 09, 2024 09:00 AM AMBULATORY - NONE [facility] [...] 18, 2022 08:30 AM VA-TOBACCO FORMER USER [facility] Tobacco Use History This section includes a history of the smoking, or tobacco-related health factors, that were collected on or before the date of the Encounter. The data comes from the [place] facility where the Encounter took place. Date/Time Smoking Status/Tobacco Use Comment F bo Aug 18, 2022 08:30 AM VA-TOBACCO QUIT 15 YRS OR MORE [facility] May 03, 2021 08:00 AM VA-TOBACCO FORMER USER [facility] May 03, 2021 08:00 AM VA-TOBACCO QUIT 15 YRS OR MORE [facility] Apr 21, 2020 09:00 AM VA-TOBACCO FORMER USER [facility] Apr 21, 2020 09:00 AM VA-TOBACCO QUIT 15 YRS OR MORE [facility] Apr 03, 2018 03:16 PM FORMER TOBACCO USE >1Y <7Y [facility] Mar 09, 2007 10:41 AM CURRENT TOBACCO USER [facility] Advance Directives: All historical and current [...] 22, 2021 ADVANCE DIRECTIVE DISCUSSION ALLYSON GRAF [facility] Jun 22, 2021 ADVANCE DIRECTIVE ALLYSON GRAF [facility] Mar 09, 2007 ADVANCE DIRECTIVE SOLEDAD WOLFF [facility] Encounter Notes: All associated encounter notes This section contains the clinical notes associated to the Encounter. Date/Time Encounter Note(s) Provider Source Mar 27, 2024 01:53 PM SECTION MAINTAINER NOTE: LOCAL TITLE: DIABETES SECTION MAINTAINER NOTE STANDARD TITLE: SECTION MAINTAINER NOTE DATE OF NOTE: MAR 27, 2024@13:53 ENTRY DATE: MAR 27, 2024@13:53:20 AUTHOR: KARI BRITO COSIGNER: URGENCY: STATUS: COMPLETED BACKGROUND: BETOMIGUELINA is a 78 YO MALE followed by this com writer for DM. A chart review was completed, as Vet no-showed. PMH is significant for T2DM with chronic foot infections, GERD, and HLD. SUBJECTIVE/OBJECTIVE: In brief, at our last visit, we started up his Ashley 3. Appears he has been using without issues. Name: Miguelina Mantilla Date of : 1945 Report Period: 03/14/2024 - 03/27/2024 (14 days) Generated: 03/27/2024 % Time CGM Active: 97% Glucose Statistics and Targets Average Glucose: 214 mg/dL Glucose Management Indicator (GMI): 8.4% Glucose Variability (%CV): 31.1% Target Range: 70 - 180 mg/dL Time in Ranges Very High: >250 mg/dL --- 28% High: 181 - 250 mg/dL --- 37% Target Range: 70 - 180 mg/dL --- 35% Low: 54 - 69 mg/dL --- 0% Very Low: <54 mg/dL --- 0% Low Alarm: 70 mg/dl High Alarm: OFF TRENDS: Fastings in the mid to upper 100s, increasing during the course of the day and peaking around 9pm in the upper 200s. 2 brief episodes of hypoglycemia noted in the gun profiler. A couple days with more significantly elevated readings running in the upper 200s/300s. ALLERGIES/ADR: VANCOMYCIN (Apr 27, 2018) Outpatient Medications Status ======= 1) ATORVASTATIN CALCIUM 40MG TAB TAKE ONE TABLET BY ACTIVE MOUTH EVERY DAY FOR CHOLESTEROL 2) FINASTERIDE 5MG TAB TAKE ONE TABLET BY MOUTH EVERY ACTIVE DAY FOR PROSTATE 3) INSULIN,GLARGINE-YFGN 100UNIT/ML PEN 3ML INJECT 24 ACTIVE UNITS UNDER THE SKIN EVERY EVENING FOR DIABETES 4) METFORMIN HCL 1000MG TAB TAKE ONE TABLET BY MOUTH ACTIVE TWICE A DAY FOR DIABETES 5) SEMAGLUTIDE 1MG/0.75ML INJ PEN 3ML INJECT 1MG UNDER ACTIVE THE SKIN EVERY WEEK FOR DIABETES 6) TAMSULOSIN HCL 0.4MG CAP TAKE ONE CAPSULE [...] 1000MCG MOUTH EVERY ACTIVE DAY 6) Non-VA MAGNESIUM OXIDE 400MG TAB 400MG MOUTH EVERY ACTIVE DAY 7) Non-VA TURMERIC CAP/TAB 500 MG MOUTH TWICE A DAY ACTIVE 8) Non-VA ZZFISH OIL 1000MG (500MG DHA/EPA) CAP 1 GM ACTIVE MOUTH TWICE A DAY 14 Total Medications Previous DM Medications: -Empa-->took for [...] 9.70 mg/gCreat 0 - 30 ASSESSMENT: #T2DM -Goal A1c <8% (FBG 80-160, PPG <210) per [place] guidelines. Last A1c was up and just slightly below goal. Previously reported SMBG values (fastings) have been acceptable. Current CGM data shows slightly higher readings with more significantly elevated post-prandials. Presume this is largely driven by inconsistent carb intake. Current medication regimen is appropriate, but would encourage increased efforts to moderate carb intake and/or a referral to our medicine aide. PLAN: Medications: -Continue present regimen, as above Monitoring: - SMBG prn - Continue Ashley 3 CGM -Using an iphone 8 plus #Disease-Specific Med Rec: Completed today #Labs: up-to-date - Educated vet on indication/risks/benefits of new/changed medication. - Education provided on therapeutic nonpharmacologic management to achieve goals. - Vet advised of recent labs. - Sebec verbalized understanding to all plans discussed today. Questions were answered to vet's satisfaction. Time spent: 15 minutes RTC: -PharmD phone TBD pending response from Vet prefers to avoid [facility]-only has a cellphone /toby/ KARI BRITO PHARM D, BCPS Clinical Pharmacist Practitioner-[facility] Signed: 03/27/2024 13:57 KARI BRITO [facility]
--- OUTSIDE RECORDS SUMMARY | 2024-04-02 11:25 | XMS_ITS | Data Portability ---
Author Organization [place] [facility] Address [address] [place] [address] Care Team Providers Care Cooker Operator Name Role Phone POST, SUE Primary Care [...] of Hospitaliza tion for UTI. 2022 023 [facility], [address], [address], [place], [address], 10:05:08 urinalysis, dipstick 2022 023 [facility], [address], [place], [address], 12:03:37 Referral None recorded. Procedures None recorded. Surgeries None recorded. Imaging None recorded. Medication Orders None recorded. Patient TargetsNo targets recorded. Patient Instructions Encounter Date Encounter Id Patient Instructions Last Modified By Organization Details Last Modified Time 09/23/2022 [id number] Patient to call clinic with questions or concerns. Advised patient to increase water intake and to keep 4 week appointment for next catheter change. [email or web address] Not available 09/23/2022 13:22:30 11/04/2022 [id number] Pt has F/U appt with Dr Barrientos in [place] on 11/11/2022 @ 3:10pm to review UDS. [...] ate 3) Sensi tivit y Priscila sis [place] [facility] [place] ----- ----- ----- ----- ----- [...] s Desk [facility]. S= Susce ptibl e;I= [...] for provi brandon revie w. Not Available [facility] [address], [place], [address], 11/07/2022 10:05:08 11/05/19 23 11/04/2022 urina lysis , dipst ick Color-Status Straw Not Available [facility] [address], [place], [address], 11/04/2022 12:02:10 11/05/19 23 11/04/2022 urina lysis , dipst ick Clarity-Stat us Slight ly Cloudy Not Available [facility] [address], [place], [address], 11/04/2022 12:02:10 11/05/19 23 11/04/2022 urina lysis , dipst ick Glucose-Stat us 500 Not Available [facility] [address], [place], [address], 11/04/2022 12:02:10 11/05/19 23 11/04/2022 urina lysis , dipst ick Bilirubin-St atus Negati ve Not Available [facility] [address], [place], [address], 11/04/2022 12:02:10 11/05/19 23 11/04/2022 urina lysis , dipst ick Ketones-Stat us Negati ve Not Available [facility] [address], [place], [address], 11/04/2022 12:02:10 11/05/19 23 11/04/2022 urina lysis , dipst ick Sp Dallas-Stat us 1.015 Not Available [facility] [address], [place], [address], 11/04/2022 12:02:10 11/05/19 23 11/04/2022 urina lysis , dipst ick pH-Status 6.5 Not Available [facility] [address], [place], [address], 11/04/2022 12:02:10 11/05/19 23 11/04/2022 urina lysis , dipst ick Protein-Stat us 5.0 Not Available [facility] [address], [place], [address], 11/04/2022 12:02:10 11/05/19 23 11/04/2022 urina lysis , dipst ick Urobilinogen -Status 0.2 Not Available [facility] [address], [place], [address], 11/04/2022 12:02:10 11/05/19 23 11/04/2022 urina lysis , dipst ick Nitrates-Sta tus positi ve Not Available [facility] [address], [place], [address], 11/04/2022 12:02:10 11/05/19 23 11/04/2022 urina lysis , dipst ick Blood-Status Large Not Available [facility] [address], [place], [address], 11/04/2022 12:02:10 11/05/19 23 11/04/2022 urina lysis , dipst ick Leuko-Status Large Not Available [facility] [address], [place], [address], 11/04/2022 12:02:10 11/05/19 23 11/04/2022 urina lysis , dipst ick Specimen Type Cathet erized Not Available [facility] [address], [place], [address], 11/04/2022 12:02:10 11/05/19 23 11/04/2022 urina lysis , dipst ick Performed by LKchuckve n1 Not Available [facility] [address], [place], [address], 11/04/2022 12:02:10 Result Notes None recorded. Problems Name Problem SNOMED Code Status Onset Date Resolution Date Notes Provider Name and Address Organization Details Recorded Time Retention of urine [id number] Active 023 [employer] [employer] 3 13:15:43 Problem Notes None recorded. Procedures Surgical History Date Name Laterality Status Provider Name and Address Organization Details Recorded Time 3 Fill and Pull/Voiding Trial/TOV completed Jenna Harris null, [facility] 12/09/2022 11:59:45 3 Urodynamic Studies completed Deyanira Woods null, [facility] 11/04/2022 12:19:38 3 Gordon Catheter Insertion completed Deyanira Woods null, [facility] 11/04/2022 12:21:21 3 Urethral Catheter Change completed Jenna [facility] [employer] [employer] 10/21/2022 13:18:32 3 Urethral Catheter Change completed Nenita Flores null, [facility] 09/23/2022 13:21:12 3 Gordon Catheter Insertion completed Roula Beltran null, [facility] 08/03/2022 11:16:51 3 Fill and Pull/Voiding Trial/TOV completed Roula Beltran [facility] 08/03/2022 11:16:41 2 Cystoscopy- male completed Kristopher Barrientos MD, PHD [address] [place] [address], [address], [facility] 06/30/2022 09:37:30 2 Urethral Catheter Change completed Carlos Mix null, [facility] 06/30/2022 09:49:15 2 Gordon Catheter Insertion completed Juanito Josue null, [facility] 06/16/2022 15:03:22 2 Fill and Pull/Voiding Trial/TOV completed Roula Tony PA-C [address] [place] [address], [address], [facility] 06/16/2022 18:06:50 [facility]aract [facility] 12:30:25 Orthopedic Surgery completed Juanito Gannonfidel song [facility] 06/16/2022 12:30:33 Imaging Results None [...] Updated DateTime 09/23/2022 180.34 cm Nenita Flores [facility] 09/23/2022 13:17:39 Date Recorded Body height Body mass index (BMI) Body weight Provider Name and Address Organization Details Last Updated DateTime 11/11/2022 180.34 cm 30 kg/m2 71600.36 g Amanda Molina [facility] 11/11/2022 16:25:51 Social History Question Answer Notes LastModified by Organizat ion Details LastModified Time Tobacco Smoking Status Former Smoker Еленаarminda Shafferamfidel song [facility] 06/16/2022 12:29:38 What Is Your [...] Encounter Closed Date Diagnosis/Indication Diagnosis SNOMED-CT Code Diagnosis ICD10 Code [id number] Roula Tony PA-C [facility] [address] [place] [address] 06/16/2022 11:30:09 06/20/2022 08:36:10 Retention of urine 691114712 R33.9 Benign pro static hyperplasia with outflow obstruction [id number] N40.1 [id number] Kristopher green MD, PHD [facility] [address] [place] [address] 06/30/2022 08:46:23 07/04/2022 11:29:58 Retention of urine 600664071 R33.9 Benign pro static hyperplasia with outflow obstruction 212535415 N40.1 [id number] Roula Ruby [facility] [address] [place] [address] 08/03/2022 10:27:16 08/05/2022 11:54:14 Retention of urine 469403006 R33.9 [id number] Nenitaaranza Flores [facility] [address] [place] [address] 09/23/2022 10:30:04 09/26/2022 14:37:37 [id number] Kristopher green MD, PHD [facility] [address] [place] [address] 11/04/2022 10:41:00 11/10/2022 13:37:32 Benign prostatic hyperplasia with outflow obstruction 350813069 N40.1 Retention of urine 49646 4002 R33.9 Microscopic hematuria 19 6099466 R31.29 [id number] Jenna Harris [facility] [address] [place] [address] 10/21/2022 11:27:55 10/24/2022 11:49:09 Retention of urine 802003760 R33.9 [id number] Kristopher green MD, PHD [facility] [address] [place] [address] 11/11/2022 16:25:28 11/17/2022 17:02:38 Retention of urine 242618985 R33.9 Benign pro static hyperplasia with outflow obstruction 040742383 N40.1 [id number] Jenna Harris [facility] [address] [place] [address] 12/09/2022 10:56:01 12/12/2022 15:10:14 Retention of urine 362521943 R33.9 Health Concerns Section Related Observation LastModified by Organization Detai ls LastModified Time None Recorded Concern Status LastModified by Organization Details LastModified Time None Recorded Advance Directives Directive None Recorded Payers Encounter Date Sequence Insurance Name Policy Number Policy Molina Covered Member ID Molina Member ID Guarantor Name 09/23/2022 1 [place] [employer] Tom B Renaux [id number] Tom B Renaux 09/23/2022 2 [place] [id number] Tom B Renaux [id number] Tom B Renaux 10/21/2022 1 [place] [employer] Tom B Renaux [id number] Tom B Renaux 10/21/2022 2 [place] [id number] Tom B Renaux [id number] Tom B Renaux 11/04/2022 1 [place] [employer] Tom B Renaux [id number] Tom B Renaux 11/04/2022 2 [place] [id number] Tom B Renaux [id number] Tom B Renaux 11/11/2022 1 [place] [employer] Tom B Renaux [id number] Tom B Renaux 11/11/2022 2 [place] [id number] Tom B Renaux [id number] Tom B Renaux 12/09/2022 1 [place] [employer] Tom B Renaux [id number] Tom B Renaux 12/09/2022 2 [place] [id number] Tom B Renaux [id number] Tom B Renaux Notes Date Note Type [...] weeks for next catheter change. Nenita song [place] [facility] 09/23/2022 13:22:32 10/21/2022 text/html HPI Notes: Pt he re for catheter change OLMAN Chappell [facility] 10/21/2022 13:21:54 11/11/2022 text/html HPI Notes: 77M w ith urinary retention. Hospitalization at [facility] from 04/30-05/30 for MSSA bacteremia with [...] coordinate their care. Kristopher Barrientos MD, PHD [address] [place] [address],[address], [place], [address], [facility] 11/11/2022 17:49:57 12/09/2022 text/html HPI Notes: Pt of Dr PALMER, here for TOV recommended at 11/11/22 visit Jenna song [facility] 12/09/2022 12:43:22
== END 2024-04-02 11:23 | disposition home or self-care (01) ==
PROVIDERS: Visit Provider Nurse Practitioner Family
DX: E11.621 Type 2 diabetes mellitus with foot ulcer (principal); L97.512 Non-pressure chronic ulcer of other part of right foot with fat layer exposed; I89.0 Lymphedema, not elsewhere classified
CPT/HCPCS: 15275; Q4201

== ENCOUNTER 2024-04-09 11:32 | Outpatient (CLI) | payer MEDICARE, BC, SELFPAY ==
--- OUTSIDE RECORDS SUMMARY | 2024-04-09 11:34 | XMS_ITS | Referral Summary ---
Author Organization [facility] Address [address] [place] [address] Care Team Providers Care Keyboard Instrument Repairer Name Role Phone Post, Dave Wakefield Primary Care Provider [phone] Medications Medication Sig Dispensed Refills Start Date [...] Comments Blood Pressure 148/85 06/26/2018 5:58 PM TOILET AND LAUNDRY SOAP SUPERVISOR Pulse 90 06/26/2018 5:58 PM TOILET AND LAUNDRY SOAP SUPERVISOR Temperature 36.6 ??C (97.8 ??F) 06/26/2018 5:58 PM CS T Respiratory Rate 18 06/26/2018 5:58 PM TOILET AND LAUNDRY SOAP SUPERVISOR Oxygen Saturation 95% 06/26/2018 7:00 PM TOILET AND LAUNDRY SOAP SUPERVISOR Inhaled Oxygen Concentration - - Weight 112 kg (247 lb) 06/26/2018 5:58 PM TOILET AND LAUNDRY SOAP SUPERVISOR Height 180.3 cm (5' 11) 06/26/2018 5:58 PM TOILET AND LAUNDRY SOAP SUPERVISOR Body Mass Index 34.45 06/26/2018 5:58 PM TOILET AND LAUNDRY SOAP SUPERVISOR Plan of Treatment Not on file Care Teams Keyboard Instrument Repairer Relationship Specialty Start Date End Date Post, Dave Wakefield PCP - General Internal Medicine 06/26/18
--- OUTSIDE RECORDS SUMMARY | 2024-04-09 11:34 | XMS_ITS | Clinical Summary ---
Author Organization [facility] Address [place], [place] [address] Care Team Providers Care Loss Prevention Agent Name Role Phone Post, Dave Velazquez MD Primary Care Provider Moshe Enciso MD Unavailable Arie Justin MD Unavailable [phone] [facility] Unavailable [phone] Murali Hoover DPM Unavailable [phone] Allergies No known active allergies Medications [...] Noted Date Diagnosed Date Urinary retention 08/31/2022 Overview (10/06/2023): Dr. Barrientos. Gordon placed during critical illness 03/2022. Outpatient cystoscopy without evidence of obstruction. Urodynamic studies done as outpatient. Able to remove catheter. S/P Left shoulder I&D DOS:05/03/2022 Dr. 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 Staphylococcal arthritis of left shoulder 2021 Coronary artery disease due to calcified coronar y lesion 05/21/2021 Overview (05/21/2021): Asymptomatic, discovered on CT. Inferoapical ischemia on myoview. Last done 2018. Sees Cardiology, managed medically. Diabetic foot ulcer 10/10/2013 GERD (gastroesophageal reflux disease) 3 ACP (advance care planning) 05/03/2013 Venous insufficiency 07/01/2010 Diabetes mellitus type II 06/02/2010 Overview (07/01/2016): Diagnosed in the s. Historically exercise and diet controlled. Worsened 2009 after not exercising. eye exam no retinopathy 05/2010. Myalgias with atorvastatin. Neuropathy 06/02/2010 Routine general medical examination 06/02/2010 Overview (03/26/2019): Alcoholism- sober since 2001. AAA- normal 2009 [...] 05/02/2022 06/17/2022 Non-healing non-surgical wound 05/02/2022 08/31/2022 Overview (05/02/2022): Bottom LEFT foot Sepsis due to methicillin tejada sceptible Staphylococcus aureus (MSSA) without acute organ dysfunction 05/02/2022 06/17/2022 Irregular heart rhythm 05/01/202206/17 Left arm pain 05/01/2022 06/17/2022 Left shoulder pain 05/01/2022 COVID-19 virus infection 05/01/202202/2024 Bacteremia 06/04/2021 06/17/2022 Coronary artery calcification seen on CT scan 11/22/19 18 05/21/2021 Overview (11/21/2017): Met with Cardiology and had perfusion imaging 2016. Osteomyelitis of left foot 07/03/2014 0 10/06/2023 Cellulitis of left foot 07/03/201403/01 Severe sepsis 07/03/2014 05/19/2021 Toe ulcer 01/23/2014 06/17/2022 Callus of foot 05/03/2013 06/17/2022 Osteomyelitis of ankle or foot, right, acute 3 07/03/2014 Dysphagia - soft foods 04/22/201310/05 Hypertrophy of prostate with urinary obstruction and other lower urinary tract symptoms (LUTS) 05/19/2011 03/17/2017 Overview (07/05/2013): flomax didn't help Jayde Care Contract 07/13/2010 012 Overview (07/13/2010): This patient, PCP and Care Guide have signed a letter agreeing on a set of goals for diabetes, hypertension and/or CHF. Please look for [facility] Care Goal Contract in Chart Review/ Letters and support this effort. Please direct questions to Care Guide Pamella Brennan Phone number [phone]. Alcohol abuse 06/02/2010 03/26/2019 Overview (06/02/2010): Sober since 2001. Great success with AA. [...] 36.7 ??C (98 ??F) 06/29/2022 8:43 AM DESIGN STUDIO CONSULTANT Respiratory Rate 18 06/29/2022 8:43 AM DESIGN STUDIO CONSULTANT Oxygen Saturation 96% 07/21/2023 1:34 PM DESIGN STUDIO CONSULTANT Inhaled Oxygen Concentration - - Weight 107 kg (236 lb) 11/03/2023 11:13 AM CDT w ith shoes Height 180.3 cm (5' 10.98) 07/21/2023 1:[address] Body Mass Index 32.93 07/21/2023 1:34 PM DESIGN STUDIO CONSULTANT Plan of Treatment Health Maintenance Due Date Last Done Comments Hepatitis C screening for ag e 18-79 1964 RSV vaccine for adults or (1 - 1-dose 60+ series) 2006 Pneumococcal series for age 65+ (3 of 3 - PPSV23 or PCV20) 09/11/2016 09/11/2015, 11/03/2010, 04/19/2007 Depression screening for age 12+ 03/26/2020 03/26/20 19, 03/22/2018 Medicare Wellness for age 65+ 03/26/2020 03/26/2019, 03/22/[address] (for lung CA) ag e 50-80 05/10/2023 05/10/2022, 04/30/2022, 06/04/2021 COVID-19 vaccine series ( - 2022- season) 2024 Influenza for age 65+ 03/31/2024 04/21/2020 , 04/27/2018, 07/01/2016, Additional history exists BMI (ht and wt on same day) for age 18+ 07/21/2024 07/21/2023, 09/10/2021, 07/04/2019, Additional history exists Tetanus booster 09/20/2025 09/20/2015, 09/11/2015 Fecal testing non-DNA (FIT,FOBT,iFOBT) for age 45-75 Discontinued 07/03/2013 Tdap Completed 09/20/2015 Zoster (shingles) series for age 50+ Completed 07/16/2020, 04/21/2020 Medical Devices Implanted Type Area Merchandise Displayer Device Identifier Shelf Expiration Date Model / Serial / Lot [id number] - [id number] Implanted:Qty: 1 on 09/20/2021 at [facility] Right: Foot [employer] AR-8725-4 4H / / Description:COMPRESSION FT S CREWS CANNULATED, 2.5 MICRO 44MM LOAD 4 [id number] Kristina-1530p - [id number] Implanted:Qty: 1 on 09/20/2021 at [facility] Right: Foot [employer] 03/30/2025 AR-1530P- CP / / [id number] Description:FOREFOOT INTERNA L BRACE IMPLANT SYSTEM, PEEK Screw 4.54e38sc Bio Compositetenodesis Disp Rougher Machine Operator Pk - [id number] Implanted:Qty: 1 on 09/20/2021 at [facility] Right: Foot [employer] 08/30/2022 AR-1547CD S / / [id number] Ancr Sut 1.3mm Dx Fibertak Suturetape 2 Ndl 26.2mm 08/01 Cir - [id number] Implanted:Qty: 1 on 09/20/2021 at [facility] Right: Foot [employer] 06/29/2026 AR-8990ST / / [id number] Explanted Type Area Merchandise Displayer Device Identifier Shelf Expiration Date Model / Serial / Lot Wire Kirs .[id number] Smooth6/Pk Depuy/Héctor - [id number] Explanted:Qty: 1 on 09/20/2021 at [facility] Right: Foot [employer] / / Description:LOAD 4 [id number] [facility]8737-40 - [id number] Explanted:Qty: 1 on 09/20/2021 at [facility] Right: Foot [employer] AR-8737-40 / / Description:2.5 MICRO COMPRE SSION FT DRILLS AND DISPOSABLES, GUIDEWIRE W TROCAR TIP, THREADED, 0.34 IN (.86MM) LOAD 4 [id number] Procedures Procedure Name Priority Date/Time Associated Diagnosis Comments CT CHEST PE STUDY Routine 05/10/2022 7:5 0 PM CDT OCCULT BLOOD IFOBT STOOL Routine 07/03/2013 7:00 PM DESIGN STUDIO CONSULTANT Screening for colon cancer from Last 3 [...] Occult Blood Stool (IFOBT) (07/03/2013 7:00 PM DESIGN STUDIO CONSULTANT) STOOL BLOOD ,IFOBT Negative Negative, Invalid 07/04/2013 3:03 PM DESIGN STUDIO CONSULTANT [facility] Stool specimen (specimen) STOOL SPECIMEN / Unknown Non-Blood / Unknown 07/03/2013 7:00 PM DESIGN STUDIO CONSULTANT 07/04/2013 2:39 PM DESIGN STUDIO CONSULTANT Dave Garrett MD LABORATORY [facility] [address] [place] [address] from Last 3 Months or Most Recently Relevant to Health Maintenance Advance Directives Documents on File Type Date Recorded Patient Art Display Maker Expl anation Healthcare Directive 05/21/2021 3:50 PM [...] Code Status Discussion: Reviewed Preferences Care Teams Loss Prevention Agent Relationship Specialty Start Date End Date Post, Dave Velazquez MD PCP - General 06/02/10 Moshe Enciso MD [address] [address] [address] [facility] [address] [place], [place] [id number] Endocrinology Endocrinology 01/04/18 [place] [address] [address] [place] [address] Surgery - Ophthalmology 03/22/18 [facility] [address] [place] [address] 06/08/21 Murali Hoover DPM [address] [place] [id number] Surgery - Podiatric 01/03/23
--- OUTSIDE RECORDS SUMMARY | 2024-04-09 11:34 | XMS_ITS | Clinical Summary ---
Author Organization [facility] Address [address] [place] [address] Care Team Providers Care Nuclear Equipment Operator Name Role Phone Post, Dave Wakefield Primary Care Provider [phone] Medications Medication Sig Dispensed Refills Start Date [...] Comments Blood Pressure 148/85 06/26/2018 5:58 PM BLEACH MIXER Pulse 90 06/26/2018 5:58 PM BLEACH MIXER Temperature 36.6 ??C (97.8 ??F) 06/26/2018 5:58 PM CS T Respiratory Rate 18 06/26/2018 5:58 PM BLEACH MIXER Oxygen Saturation 95% 06/26/2018 7:00 PM BLEACH MIXER Inhaled Oxygen Concentration - - Weight 112 kg (247 lb) 06/26/2018 5:58 PM BLEACH MIXER Height 180.3 cm (5' 11) 06/26/2018 5:58 PM BLEACH MIXER Body Mass Index 34.45 06/26/2018 5:58 PM BLEACH MIXER Plan of Treatment Not on file Care Teams Nuclear Equipment Operator Relationship Specialty Start Date End Date Post, Dave Wakefield PCP - General Internal Medicine 06/26/18
--- OUTSIDE RECORDS SUMMARY | 2024-04-09 11:34 | XMS_ITS | Encounter Summary ---
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 [facility] [place] Address [address] [place] [address] Care Team Providers Care Sample Maker Original Name Role Phone CHARLEE FISH Primary Care [...] MEDIC ARE SUPPL EMENT Jul 31, 2018 [id number] [phone] RENBRITTNEY,KANE ALEX PATIENT [place] MED[place] SUPPLEMEN [place] MEDIC ARE SUPPL EMENT Jul 31, 2018 [id number] [phone] RENAUX,JU ALEX PATIENT [place] ([place] MEDICARE ADVANTAGE MCR (WNR) Jul 31, 2017 [id number] [phone] RENAUX,JU LAEX PATIENT [place] MEDICARE SUPPLEMEN [place]OT MEDIC ARE SUPPL EMENT Jul 31, 2018 [id number] [phone] RENAUX,JU ALEX PATIENT [place] SUPPLEMEN [place] MEDIC ARE SUPPL EMENT Jul 31, 2018 [id number] [phone] RENAUX,JU ALEX PATIENT MEDICARE (WNR) MEDICARE (M) PART A May 31, 2011 PART A [id number] [phone] KANE PÉREZ PATIENT MEDICARE (WNR) MEDICARE (M) PART B May 31, 2011 PART B [id number] [phone] KANE PÉREZ PATIENT Selected Encounter This section includes the information on record at [place] for the Encounter. Date/Time Encounter Type Encounter Description Reason Provider Source Jan 18, 2024 04:00 PM MTMS BY CELESTE PEARL 15 MIN TELEPHONE PRIMARY CARE ICD-10-CM E11.42 Type 2 diabetes mellitus with diabetic polyneuropathy KARI BRITO [facility] Encounter Template Text not used by [place] Assessments - Encounter Diagnoses This section includes the primary and secondary diagnoses documented for the Encounter. Date/Time Primary/Secondary Diagnosis Diagnosis Name Provider Source Jan 18, 2024 04:00 PM PRIMARY Type 2 diabetes mellitus with diabetic polyneuropathy KARI BRITO [facility] Plan of Treatment: Future Appointments (+ 6 months) and Future Tests (+/- 45 days) The Plan of Treatment section includes future care activities for the [facility] [place] [facility] This section includes future appointments and future orders which are active, pending or scheduled. Future Appointments This section includes appointments that were scheduled to occur 6 months from the date of the Encounter, up to a maximum of 20 appointments. The data comes from all [place] treatment facilities. Appointment Date/Time Appointment Type Appointme nt Facility Name Feb 22, 2024 04:00 PM AMBULATORY - NONE [facility] Apr 09, 2024 09:00 AM AMBULATORY NONE [facility] Apr 12, 2024 11:30 AM AMBULATORY NONE [facility] Social History: Smoking Status (Most current) and Tobacco Use (All prior to encounter date) This section includes the most current, and the historical, smoking and tobacco- related health factors from the [place] facility where the Encounter took place. Current Smoking Status This section includes the most current smoking, or tobacco-related health factor, from the [place] facility where the Encounter took place. Date/Time Current Smoking Status Quique pegn Aug 18, 2022 08:30 AM VA-TOBACCO FORMER USER [facility] Tobacco Use History This section includes a history of the smoking, or tobacco-related health factors, that were collected on or before the date of the Encounter. The data comes from the [place] facility where the Encounter took place. Date/Time Smoking Status/Tobacco Use Comment F acility Aug 18, 2022 08:30 AM VA-TOBACCO QUIT 15 YRS OR MORE [facility] May 03, 2021 08:00 AM VA-TOBACCO FORMER USER [facility] May 03, 2021 08:00 AM VA-TOBACCO QUIT 15 YRS OR MORE [facility] Apr 21, 2020 09:00 AM VA-TOBACCO FORMER USER [facility] Apr 21, 2020 09:00 AM VA-TOBACCO QUIT 15 YRS OR MORE [facility] Apr 03, 2018 03:16 PM FORMER TOBACCO USE >1Y <7Y [facility] Mar 09, 2007 10:41 AM CURRENT TOBACCO USER [facility] Advance Directives: All historical and current Section Date Range: From patient's date of to the date document was created. This section includes ALL of a patient's completed or amended [place] Advance and Rescinded Directives. The entries below indicate that a directive exists for the patient, but an actual copy is not included with this document. The data comes from all [facility]. Date Advance Directives Provider Source Jun 22, 2021 ADVANCE DIRECTIVE DISCUSSION ALLYSON GRAF [facility] Jun 22, 2021 ADVANCE DIRECTIVE ALLYSON GRAF [facility] Mar 09, 2007 ADVANCE DIRECTIVE SOLEDAD WOLFF [facility] Encounter Notes: All associated encounter notes This section contains the clinical notes associated to the Encounter. Date/Time Encounter Note(s) Provider Source Jan 18, 2024 02:33 PM PHARMACY NOTE: LOCAL TITLE: PHARMACOTHERAPY-CLINICAL PHARMACY NOTE STANDARD TITLE: PHARMACY NOTE DATE OF NOTE: JAN 18, 2024@14:33 ENTRY DATE: JAN 18, 2024@14:33:10 AUTHOR: KARI BRITO EXP COSIGNER: URGENCY: STATUS: [...] sandwich or grapes/cheese, beef stew Evening meal: food technology teacher -- sandwich or fruit/cheese Snacks: snickers, [place] kisses, ice cream, cookies on occasion. other [...] satisfaction. Time spent: 30 minutes RTC: -02/21 pharmTwyla phone prefers to avoid [facility]-only has a cellphone /toby/ KARI BRITO PHARM D, BCPS Clinical Pharmacist Practitioner- [facility] Signed: 01/18/2024 16:41 KARI BRITO [facility]
--- OUTSIDE RECORDS SUMMARY | 2024-04-09 11:34 | XMS_ITS | Continuity of Care Document ---
Author Name [facility] Organization [facility] Care Team Providers Care Oracle Apex Developer Name Role Phone [facility] Unavailable Unavailable Problems Combined list of problems from Department of Defense and Veterans Affairs facilities. It does not include entries that were removed or entered in error. Problem Status Onset Date Problem Type Date of Resolution Comments Source Exposure to potentially hazardous substance ([facility] [id number]) Active 10/05/19 24 Condition Oct 05, 2023 Entered By: VIJI VIVAS [facility]: [facility] Documentation Initiative [facility] Depressive Disorder NOS * (ICD-9-CM 311./300.4) Active Condition [facility] Diabetes mellitus (SNOMED CT 24880206) Active Condition [facility] Diabetic neuropathy Active Condition [facility] Foot Pain (ICD-9-CM 719.47) Active Condition Aug 26 10 Entered By: MALINA WORLEY Comment: left 5th metatarsal fracture [facility] History of amputation of lesser toe Active Condition [facility] Hyperlipidemia (SNOMED CT 93066961) Active Condition [facility] Hyperuricemia Active Condition [place]) Osteopenia Active Condition [place] [facility] Other Iatrogenic Hypotension Active Condition [place] [facility] Personal History of Alcoholism (ICD-9-CM V11.3) Active Condition [facility] Tobacco user (SNOMED CT 737997180) Active Condition [facility] Diagnosis: ICD-10-CM E11.42 Type 2 diabetes mellitus with diabetic polyneuropathy Active Diagnosis [facility] Diana [facility] Diagnosis: ICD-10-CM E11.621 Type 2 diabetes mellitus with foot ulcer Active Diagnosis [facility] Diagnosis: ICD-10-CM Z77.29 Contact with and exposure to other hazardous substances Active Diagnosis [facility] Medications Combined list of outpatient [...] by: CHARLEE FISH Document ed at: [facility] ORAL ACTIVE CHARLEE FISH 2022 [facility] ASPIRIN 81MG TAB,EC ASPIRIN 81MG TAB,EC Non-VA TAKE ONE TABLET BY MOUTH EVERY DAY Mar 13, 2007 Non-[place] Document ed by: MARY CHOUDHARY Document ed at: [facility] ORAL ACTIVE JEFF CHOUDHARY A 2006 [facility] ATORVASTATI N CA 40MG TAB ATORVAST ATIN CA 40MG TAB Active TAKE ONE TABLET BY MOUTH EVERY DAY FOR CHOLESTE ROL Apr 11, 2023 90 Apr 11, 2024 [id number] December 17, 2023 CHARLEE FISH [facility] ORAL ACTIVE 04/11/2024 [id number] CHARLEE FISH 2022 90 [facility] ATORVASTATI N CA 40MG TAB ATORVAST ATIN CA 40MG TAB Disconti nued TAKE ONE TABLET BY MOUTH EVERY DAY FOR CHOLESTE ROL Jul 14, 2022 90 Jul 15, 2023 [id number] Mar 31, 2023 NAIDL,TO DD [facility] ORAL DISCONT INUED 07/15/2023 [id number] NAIDL,TOD D 2022 90 [facility] CHOLECALCIF QUINTIN TAB CHOLECAL CIFEROL TAB Non-VA TAKE 5000 UNITS BY MOUTH EVERY DAY Aug 21, 2022 Non-VA Document ed by: CHARLEE FISH Document ed at: [facility] ORAL ACTIVE CHARLEE FISH 2022 [facility] COENZYME Q10 CAP/TAB COENZYME Q10 CAP/TAB Non-VA TAKE 1 CAPSULE BY MOUTH EVERY DAY Aug 21, 2022 Non-VA Document ed by: CHARLEE FISH Document ed at: [facility] ORAL ACTIVE CHARLEE FISH 2022 [facility] CYANOCOBALA MIN 1000MCG TAB CYANOCOB ALAMIN 1000MCG TAB Non-VA TAKE ONE TABLET BY MOUTH EVERY DAY Mar 09, 2022 Non-VA Document ed by: MAUREEN BRITO DD Document ed at: [facility] ORAL ACTIVE DEAN BRITO 2021 [facility] DICLOFENAC NA 1% GEL,TOP DICLOFEN AC NA 1% GEL,TOP APPLY 4 GRAMS TOPICALL Y FOUR TIMES A DAY NEEDED FOR JOINT PAIN JOINT PAIN Mar 22, 2023 100 Mar 22, 2024 [id number] Mar 22, 2023 FISHCHARLEE Bowers [facility] TOPICA L 03/22/2024 [id number] ABE CHARLEE A 2022 100 [facility] FINASTERIDE 5MG TAB FINASTER RACHEL 5MG TAB Active TAKE ONE TABLET BY MOUTH EVERY DAY FOR PROSTATE FOR PROSTATE Apr 11, 2023 90 Apr 11, 2024 [id number] A Jan 08, 2024 FISH CHARLEE Robinson [facility] ORAL ACTIVE 04/11/2024 [id number] CHARLEE FISH 2022 90 [facility] FINASTERIDE 5MG TAB FINASTER RACHEL 5MG TAB Disconti nued TAKE ONE TABLET BY MOUTH EVERY DAY FOR PROSTATE FOR PROSTATE Jul 12, 2022 90 Jul 13, 2023 [id number] Mar 31, 2023 FISH CHARLEE [facility] ORAL DISCONT INUED 07/13/2023 [id number] ABE CHARLEE Robinson 2021 90 [facility] FISH OIL 1000MG (500MG DHA/EPA) CAP,ORAL FISH OIL 1000MG (500MG DHA/EPA) CAP,ORAL Non-VA TAKE 1 CAPSULE BY MOUTH TWICE A DAY Mar 13, 2007 Non-VA Document ed by: MARY CHOUDHARY A Document ed at: [facility] ORAL ACTIVE JEFF CHOUDHARY ER A 2006 [facility] INSULIN,GLA RGINE-YFGN 100UNIT/ML INJ PEN,3ML INSULIN, GLARGINE -YFGN 100UNIT/ ML INJ PEN,3ML Active INJECT 24 UNITS UNDER THE SKIN EVERY EVENING FOR DIABETES FOR DIABETES Aug 29, 2023 5 Aug 29, 2024 [id number] Mar 14, 2024 NAIDL,TO DD [facility] SUBCUT ANEOUS ACTIVE 08/29/2024 [id number] NAIDL,TOD D 2023 5 [facility] INSULIN,GLA RGINE-YFGN 100UNIT/ML INJ PEN,3ML INSULIN, GLARGINE -YFGN 100UNIT/ ML INJ PEN,3ML Disconti nued INJECT 22 UNITS UNDER THE SKIN AT BEDTIME FOR DIABETES FOR DIABETES Jan 06, 2023 5 Jan 07, 2024 [id number] Jul 25, 2023 NAIDL,TO DD [facility] SUBCUT ANEOUS DISCONT INUED (EDIT) 01/07/2024 [id number] NAIDL,TOD D 2022 5 [facility] LIDOCAINE 4% CREAM,TOP LIDOCAIN E 4% CREAM,TO P APPLY MODERATE AMOUNT TOPICALL Y THREE TIMES A DAY FOR PAIN PAIN Mar 22, 2023 30 Mar 22, 2024 [id number] Mar 22, 2023 CHARLEE FISH [facility] TOPICA L 03/22/2024 [id number] CHARLEE FISH 2022 30 [facility] MAGNESIUM OXIDE 400MG TAB MAGNESIU M OXIDE 400MG TAB Non-VA TAKE ONE TABLET BY MOUTH EVERY DAY Aug 21, 2022 Non-VA Document ed by: CHARLEE FISH Document ed at: [facility] ORAL ACTIVE CHARLEE FISH 2022 [facility] MENTHOL/MET HYL SALICYLATE (10-15%) LOW CONC. CREAM,TOP MENTHOL/ METHYL SALICYLA TE (10-15%) LOW CONC. CREAM,TO P APPLY THIN LAYER TOPICALL Y THREE TIMES A DAY FOR MUSCLE PAIN MUSLCE PAIN Mar 22, 2023 90 Mar 22, 2024 [id number] Mar 22, 2023 CHARLEE FISH [facility] TOPICA L 03/22/2024 [id number] CHARLEE FISH 2022 90 [facility] METFORMIN HCL 1000MG TAB METFORMI N HCL 1000MG TAB Active TAKE ONE TABLET BY MOUTH TWICE A DAY FOR DIABETES Apr 11, 2023 180 Apr 11, 2024 [id number] E Feb 19, 2024 CHARLEE FISH [facility] ORAL ACTIVE 04/11/2024 [id number] CHARLEE FISH 2022 180 [facility] METFORMIN HCL 1000MG TAB METFORMI N HCL 1000MG TAB Disconti nued TAKE ONE TABLET BY MOUTH TWICE A DAY FOR DIABETES Jul 14, 2022 180 Jul 15, 2023 [id number] D Apr 06, 2023 NAIDL,TO DD [facility] ORAL DISCONT INUED 07/15/2023 [id number] NAIDL,TOD D 2022 180 [facility] OMEPRAZOLE 20MG CAP,EC OMEPRAZO LE 20MG CAP,EC TAKE ONE CAPSULE BY MOUTH EVERY DAY ON AN EMPTY STOMACH, AT LEAST 30 MINUTES PRIOR TO A MEAL FOR GERD GERD Mar 22, 2023 90 Mar 22, 2024 [id number] December 22, 2023 CHARLEE FISH [facility] ORAL 03/22/2024 [id number] CHARLEE FISH 2022 90 [facility] SEMAGLUTIDE 1MG/0.75ML INJ,SOLN,PE N,3ML SEMAGLUT RACHEL 1MG/0.75 ML INJ,SOLN ,PEN,3ML Active INJECT 1MG UNDER THE SKIN EVERY WEEK FOR DIABETES FOR DIABETES Nov 07, 2023 1 Nov 07, 2024 [id number] Mar 12, 2024 NAIDL,TO DD [facility] SUBCUT ANEOUS ACTIVE 11/07/2024 [id number] NAIDL,TOD D 2023 1 [facility] SEMAGLUTIDE 1MG/0.75ML INJ,SOLN,PE N,3ML SEMAGLUT RACHEL 1MG/0.75 ML INJ,SOLN ,PEN,3ML Disconti nued INJECT 1MG UNDER THE SKIN EVERY WEEK FOR DIABETES FOR DIABETES Nov 07, 2022 1 Nov 08, 2023 [id number] Nov 06, 2023 NAIDJigneshTO DD [facility] SUBCUT ANEOUS DISCONT INUED 11/08/2023 [id number] NAIDL,TOD D 2022 1 [facility] TAMSULOSIN HCL 0.4MG CAP TAMSULOS IN HCL 0.4MG CAP Active TAKE ONE CAPSULE BY MOUTH EVERY EVENING PROSTATE Apr 13, 2023 30 Apr 13, 2024 [id number] Mar 14, 2024 CHARLEE FISH [facility] ORAL ACTIVE 04/13/2024 [id number] CHARLEE FISH 2022 30 [facility] TAMSULOSIN HCL 0.4MG CAP TAMSULOS IN HCL 0.4MG CAP Disconti nued TAKE ONE CAPSULE BY MOUTH EVERY EVENING PROSTATE Apr 11, 2023 90 Apr 11, 2024 [id number] A Apr 21, 2023 CHARLEE FISH [facility] ORAL DISCONT INUED 04/11/2024 [id number] CHARLEE FISH 2022 90 [facility] TAMSULOSIN HCL 0.4MG CAP TAMSULOS IN HCL 0.4MG CAP Disconti nued TAKE ONE CAPSULE BY MOUTH EVERY EVENING PROSTATE Aug 03, 2022 90 Aug 04, 2023 [id number] Jan 21, 2023 CHARLEE FISH [facility] ORAL DISCONT INUED 08/04/2023 [id number] CHARLEE FISH 2022 90 [facility] TURMERIC CAP/TAB TURMERIC CAP/TAB Non-VA TAKE 500 MG BY MOUTH TWICE A DAY Apr 22, 2019 Non-VA Document ed by: MATTY WOO Document ed at: [facility] ORAL ACTIVE MATTY POWERS 2018 [facility] Allergies, Adverse Reactions, Alerts Combined list of allergies from Department of Defense and Veterans Affairs facilities. It does not include entries that were removed or entered in error. Substance Category Reaction Severity Reaction type Status Date Reported Comments Source VANCOMYCIN Propensity to adverse reactions to drug (finding) [place] active 8 [facility] Immunizations Combined list of available immunizations from the Department of [facility] and Veterans Affairs facilities. Immunization Series Date Given Administered By Site Reaction Lot Number CVX Code Drug Director Plans Status Comments Source ZOSTER RECOMBINANT 2 2019 187 complet [facility] INFLUENZA, INJECTABLE, QUADRIVALENT, PRESERVATIVE FREE 2019 150 complet [facility] ZOSTER RECOMBINANT 1 2019 187 complet [facility] INFLUENZA, HIGH-DOSE, QUADRIVALENT 2019 197 complet [facility] INFLUENZA, SEASONAL, INJECTABLE, PRESERVATIVE FREE 2017 140 complet [facility] INFLUENZA, INJECTABLE, QUADRIVALENT, PRESERVATIVE FREE 2017 150 complet [facility] INFLUENZA, INJECTABLE, QUADRIVALENT, PRESERVATIVE FREE 2015 150 complet [facility] TDAP 2015 115 complet ed [place] [facility] PNEUMOCOCCAL CONJUGATE PCV 13 2015 133 complet [facility] TD (ADULT), 5 LF TETANUS TOXOID, PRESERVATIVE FREE, ADSORBED 2015 113 complet [facility] INFLUENZA, INJECTABLE, QUADRIVALENT, PRESERVATIVE FREE 2013 150 complet [facility] PNEUMOCOCCAL POLYSACCHARID E PPV23 2010 33 complet [facility] INFLUENZA, UNSPECIFIED FORMULATION 2006 88 complet [facility] PNEUMOCOCCAL, UNSPECIFIED FORMULATION 2006 109 complet [facility] TD(ADULT) UNSPECIFIED FORMULATION 2006 NONE 139 complet [facility] TETANUS TOXOID, UNSPECIFIED FORMULATION 2006 NONE 112 [facility] Results Combined list of [...] Reporting Lab: [facility] [address] Performing Lab: [facility] [address] [place] [facility] BASIC METABOLIC PANEL+MG CREATININE [MASS/VOLUM E] IN SERUM OR PLASMA 1.2 mg/dL 0.7 - 1.2 03/22 Specimen Type: PLASMA No comment entered. Ordering Provider: ME LEEROY FISH Report Released Date/Time: Aug 21, 2022 03:48 PM Reporting Lab: [facility] [address] Performing Lab: [facility] [address] [place] [facility] BASIC METABOLIC PANEL+MG UREA NITROGEN [MASS/VOLUM E] IN SERUM OR PLASMA 15 mg/dL 8 - 03/22 Specimen Type: PLASMA No comment entered. Ordering Provider: ME LEEROY FISH Report Released Date/Time: Aug 21, 2022 03:48 PM Reporting Lab: [facility] [address] Performing Lab: [facility] [address] [place] [facility] BASIC METABOLIC PANEL+MG GLUCOSE [MASS/VOLUM E] IN SERUM OR PLASMA 145 mg/dL 70 - 100 03/22 H Specimen Type: PLASMA No comment entered. Ordering Provider: ME LEEROY FISH Report Released Date/Time: Aug 21, 2022 03:48 PM Reporting Lab: [facility] [address] Performing Lab: [facility] [address] [place] [facility] BASIC METABOLIC PANEL+MG SODIUM [MOLES/VOLU ME] IN SERUM OR PLASMA 138 mmol/L 136 - 145 03/22 Specimen Type: PLASMA No comment entered. Ordering Provider: ME LEEROY FISH Report Released Date/Time: Aug 21, 2022 03:48 PM Reporting Lab: [facility] [address] Performing Lab: [facility] [address] [place] [facility] BASIC METABOLIC PANEL+MG POTASSIUM [MOLES/VOLU ME] IN SERUM OR PLASMA 4.5 mmol/L 3.5 - 5.1 03/22 Specimen Type: PLASMA No comment entered. Ordering Provider: ME LEEROY FISH Report Released Date/Time: Aug 21, 2022 03:48 PM Reporting Lab: [facility] [address] Performing Lab: [facility] [address] [place] [facility] BASIC METABOLIC PANEL+MG CHLORIDE [MOLES/VOLU ME] IN SERUM OR PLASMA 101 mmol/L 98 - 107 03/22 Specimen Type: PLASMA No comment entered. Ordering Provider: ME LEEROY FISH Report Released Date/Time: Aug 21, 2022 03:48 PM Reporting Lab: [facility] [address] Performing Lab: [facility] [address] [place] [facility] BASIC METABOLIC PANEL+MG CARBON DIOXIDE, TOTAL [MOLES/VOLU ME] IN SERUM OR PLASMA 27 mmol/L 22 - 29 03/22 Specimen Type: PLASMA No comment entered. Ordering Provider: ME LEEROY FISH Report Released Date/Time: Aug 21, 2022 03:48 PM Reporting Lab: [facility] [address] Performing Lab: [facility] [address] [place] [facility] BASIC METABOLIC PANEL+MG CALCIUM [MASS/VOLUM E] IN SERUM OR PLASMA 10.0 mg/dL 8.4 - 10.2 03/22 Specimen Type: PLASMA No comment entered. Ordering Provider: ME LEEROY FISH Report Released Date/Time: Aug 21, 2022 03:48 PM Reporting Lab: [facility] [address] Performing Lab: [facility] [address] [place] [facility] BASIC METABOLIC PANEL+MG MAGNESIUM [MASS/VOLUM E] IN SERUM OR PLASMA 1.9 mg/dL 1.6 - 2.6 03/22 Specimen Type: PLASMA No comment entered. Ordering Provider: ME LEEROY FISH Report Released Date/Time: Aug 21, 2022 03:48 PM Reporting Lab: [facility] [address] Performing Lab: [facility] [address] [place] [facility] BASIC METABOLIC PANEL+MG ANION GAP IN SERUM OR PLASMA 10 mmol/L 5 - 15 03/22 Specimen Type: PLASMA No comment entered. Ordering Provider: ME LEEROY FISH Report Released Date/Time: Aug 21, 2022 03:48 PM Reporting Lab: [facility] [address] Performing Lab: [facility] [address] [place] [facility] BASIC METABOLIC PANEL+MG GLOMERULAR FILTRATION RATE/1.73 SQ M.PREDICTED [VOLUME RATE/AREA] IN SERUM, PLASMA OR BLOOD BY CREATININE- BASED FORMULA (CKD-EPI 2020) 63 60 03/22 Specimen Type: PLASMA No comment entered. Ordering Provider: ME LEEROY FISH Report Released Date/Time: Aug 21, 2022 03:48 PM Reporting Lab: [facility] [address] Performing Lab: [facility] [address] [place] [facility] HEMOGLOBI N A1C HEMOGLOBIN A1C/HEMOGLO BIN.TOTAL IN [...] Reporting Lab: [facility] [address] Performing Lab: [facility] [address] [place] [facility] BASIC METABOLIC PANEL+MG CREATININE [MASS/VOLUM E] IN SERUM OR PLASMA 0.9 mg/dL 0.7 - 1.2 08/18 Specimen Type: PLASMA No comment entered. Ordering Provider: ME LEEROY FISH Report Released Date/Time: December 22, 2021 03:46 PM Reporting Lab: [facility] [address] Performing Lab: [facility] [address] [place] [facility] BASIC METABOLIC PANEL+MG UREA NITROGEN [MASS/VOLUM E] IN SERUM OR PLASMA 12 mg/dL 8 - 26 08/18 Specimen Type: PLASMA No comment entered. Ordering Provider: ME LEEROY FISH Report Released Date/Time: December 22, 2021 03:46 PM Reporting Lab: [facility] [address] Performing Lab: [facility] [address] [place] [facility] BASIC METABOLIC PANEL+MG GLUCOSE [MASS/VOLUM E] IN SERUM OR PLASMA 184 mg/dL 70 - 100 08/18 H Specimen Type: PLASMA No comment entered. Ordering Provider: ME LEEROY FISH Report Released Date/Time: December 22, 2021 03:46 PM Reporting Lab: [facility] [address] Performing Lab: [facility] [address] [place] [facility] BASIC METABOLIC PANEL+MG SODIUM [MOLES/VOLU ME] IN SERUM OR PLASMA 137 mmol/L 136 - 145 08/18 Specimen Type: PLASMA No comment entered. Ordering Provider: ME LEEROY FISH Report Released Date/Time: December 22, 2021 03:46 PM Reporting Lab: [facility] [address] Performing Lab: [facility] [address] [place] [facility] BASIC METABOLIC PANEL+MG POTASSIUM [MOLES/VOLU ME] IN SERUM OR PLASMA 3.9 mmol/L 3.5 - 5.1 08/18 Specimen Type: PLASMA No comment entered. Ordering Provider: ME LEEROY FISH Report Released Date/Time: December 22, 2021 03:46 PM Reporting Lab: [facility] [address] Performing Lab: [facility] [address] [place] [facility] BASIC METABOLIC PANEL+MG CHLORIDE [MOLES/VOLU ME] IN SERUM OR PLASMA 102 mmol/L 98 - 107 08/18 Specimen Type: PLASMA No comment entered. Ordering Provider: ME LEEROY FISH Report Released Date/Time: December 22, 2021 03:46 PM Reporting Lab: [facility] [address] Performing Lab: [facility] [address] [place] [facility] BASIC METABOLIC PANEL+MG CARBON DIOXIDE, TOTAL [MOLES/VOLU ME] IN SERUM OR PLASMA 26 mmol/L 22 - 29 08/18 Specimen Type: PLASMA No comment entered. Ordering Provider: ME LEEROY FISH Report Released Date/Time: December 22, 2021 03:46 PM Reporting Lab: [facility] [address] Performing Lab: [facility] [address] [place] [facility] BASIC METABOLIC PANEL+MG CALCIUM [MASS/VOLUM E] IN SERUM OR PLASMA 9.4 mg/dL 8.4 - 10.2 08/18 Specimen Type: PLASMA No comment entered. Ordering Provider: ME LEEROY FISH Report Released Date/Time: December 22, 2021 03:46 PM Reporting Lab: [facility] [address] Performing Lab: [facility] [address] [place] [facility] BASIC METABOLIC PANEL+MG MAGNESIUM [MASS/VOLUM E] IN SERUM OR PLASMA 1.6 mg/dL 1.6 - 2.6 08/18 Specimen Type: PLASMA No comment entered. Ordering Provider: ME LEEROY FISH Report Released Date/Time: December 22, 2021 03:46 PM Reporting Lab: [facility] [address] Performing Lab: [facility] [address] [place] [facility] BASIC METABOLIC PANEL+MG ANION GAP IN SERUM OR PLASMA 9 mmol/L 5 - 15 08/18 Specimen Type: PLASMA No comment entered. Ordering Provider: ME LEEROY FISH Report Released Date/Time: December 22, 2021 03:46 PM Reporting Lab: [facility] [address] Performing Lab: [facility] [address] [employer] BASIC METABOLIC PANEL+MG GLOMERULAR FILTRATION RATE/1.73 SQ M.PREDICTED [VOLUME RATE/AREA] IN SERUM, PLASMA OR BLOOD BY CREATININE- BASED FORMULA (CKD-EPI) 89 60 08/18 Specimen Type: PLASMA No comment entered. Ordering Provider: ME LEEROY FISH Report Released Date/Time: December 22, 2021 03:46 PM Reporting Lab: [facility] [address] Performing Lab: [facility] [address] [employer] Encounters Combined list of: 1) 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 2) Encounters from the Department of Defense facilities going back up to 280 months. Location Location Details Encounter Type Encounter Number Reason For Visit Attending Provider ADM Date DC Date Status Disposition Source [facility] PRO PHONE CALL 21-30 MIN [id number] Diagnos is: ICD-10- CM E11.42 Type 2 diabete s mellitu s with diabeti c polyneu ropathy
NAIDL,KARI 11/07 [facility] HC PRO PHONE CALL 11-20 MIN [id number] Diagnos is: ICD-10- CM E11.42 Type 2 diabete s mellitu s with diabeti c polyneu ropathy
NAIDL,KARI 12/07 [facility] Outpatient Encounter [id number] Diagnos is: ICD-10- CM Z77.29 Contact with and exposur e to other [facility]<br/ > JEANINEJESSICAE Poonam 12/27 [facility] Outpatient Encounter [id number] Diagnos is: ICD-10- CM Z77.29 Contact with and exposur e to other [facility]<br/ > JEANINEJESSICA Ortiz ILDE J 12/27 [facility] IS [facility] HC PRO PHONE CALL 11-20 MIN [id number] Diagnos is: ICD-10- CM E11.42 Type 2 diabete s mellitu s with diabeti c polyneu ropathy
NAIDL,KARI 01/06 [facility] Outpatient Encounter [id number] 03/10 [place] [facility] HC PRO PHONE CALL 11-20 MIN [id number] Diagnos is: ICD-10- CM E11.42 Type 2 diabete s mellitu s with diabeti c polyneu ropathy
NAIDL,KARI 03/14 [facility] IS [facility] OFFICE O/P EST LOW 20-29 MIN [id number] Diagnos is: ICD-10- CM E11.621 Type 2 diabete s mellitu s with foot ulcer<b r/> Rhiannon FISH A 03/22 [facility] HC PRO PHONE CALL 21-30 MIN [id number] Diagnos is: ICD-10- CM E11.42 Type 2 diabete s mellitu s with diabeti c polyneu ropathy
NAIDL,KARI 04/18 [facility] PRO PHONE CALL 21-30 MIN [id number] [phone] Diagnos is: ICD-10- CM E11.42 Type 2 diabete s mellitu s with diabeti c polyneu ropathy
NAIDL,KARI 07/11 [facility] MTMS BY PHARM ADDL 15 MIN [id number] [phone] Diagnos is: ICD-10- CM E11.42 Type 2 diabete s mellitu s with diabeti c polyneu ropathy
NAIDL,KARI 08/29 [facility] MT[facility] BY PHARM EST 15 MIN [phone] Diagnos is: ICD-10- CM E11.42 Type 2 diabete s mellitu s with diabeti c polyneu ropathy
[facility] Jignesh 10/10 [facility] [place] [facility] Outpatient Encounter [phone] 10/16 [facility] [place] [facility] [facility] MTMS BY PHARM EST 15 MIN [id number] Diagnos is: ICD-10- CM E11.621 Type 2 diabete s mellitu s with foot ulcer<b r/> NAIDL,KARI 11/06 [place] [facility] [place] [facility] MTMS BY PHARM ADDL 15 MIN [id number] Diagnos is: ICD-10- CM E11.42 Type 2 diabete s mellitu s with diabeti c polyneu ropathy
NAIDL,KARI 11/22 [place] [facility] [place] [facility] MTMS BY PHARM ADDL 15 MIN [id number] Diagnos is: ICD-10- CM E11.42 Type 2 diabete s mellitu s with diabeti c polyneu ropathy
NAIDL,KARI 01/17 [place] [facility] [place] [facility] Outpatient Encounter [id number] Diagnos is: ICD-10- CM E11.42 Type 2 diabete s mellitu s with diabeti c polyneu ropathy
MILAGRO TONEY 01/18 [place] [facility] [place] [facility] QNHP OL DIG ASSMT&MGMT 5-10 [id number] Diagnos is: ICD-10- CM E11.42 Type 2 diabete s mellitu s with diabeti c polyneu ropathy
TRENTONMOE STEVEN R 01/18 [place] [facility] [place] [facility] MTMS BY PHARM EST 15 MIN [id number] Diagnos is: ICD-10- CM E11.42 Type 2 diabete s mellitu s with diabeti c polyneu ropathy
NAIDL,KARI 02/21 [place] [facility] [place] [facility] Outpatient Encounter [id number] RORY CAPPS 02/26 [place] [facility] [place] [facility] Outpatient Encounter [id number] 03/14 [place] [facility] [place] [facility] QNHP OL DIG ASSMT&MGMT 11-20 [id number] Diagnos is: ICD-10- CM E11.42 Type 2 diabete s mellitu s with diabeti c polyneu ropathy
NAIDL,KARI 03/27 [facility] Social History Combined list of available smoking, tobacco, and other social history from Department of Defense and Veterans Affairs facilities. Social History Type Response Date Comment Sourc e Tobacco smoking status [facility]-TOBACCO QUIT 15 YRS OR MORE 08/18/2022 [facility] History of tobacco use NE-TOBACCO FORMER USER 08/18/2022 [facility] History of tobacco use NE-TOBACCO FORMER USER 05/03/2021 [facility] History of tobacco use NE-TOBACCO FORMER USER 04/21/2020 [facility] History of tobacco use FORMER TOBACCO US E >1Y <7Y 04/03/2018 [facility] History of tobacco use CURRENT TOBACCO USER 03/09/2007 [facility] Plan of Care List of future care activities from Department Veterans Affairs facilities. Additional future care activities may be listed in the Assessment and Plan section. Date/Time Care Activity Care Activity Detail Facili ty 04/09/2024 AMBULATORY - NONE AMBULATORY - NONE [facility] 04/12/2024 AMBULATORY - NONE AMBULATORY - NONE [facility] Advance Directives List of completed, amended, or rescinded Advance Directives on record at Department [facility] facilities. An actual copy of the Directive is not included. Date Advance Directive Provider Source 06/22/2021 ADVANCE DIRECTIVE DISCUSSION ALLYSON GRAF [facility] 06/22/2021 ADVANCE DIRECTIVE ALLYSON GRAF [facility] 03/09/2007 ADVANCE DIRECTIVE [facility]
--- OUTSIDE RECORDS SUMMARY | 2024-04-09 11:35 | XMS_ITS | Encounter Summary ---
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 Address [address] [place] [address] Care Team Providers Care Cardiology Physician Name Role Phone CHARLEE FISH Primary Care [...] MEDIC ARE SUPPL EMENT Jul 31, 2018 [id number] [phone] RENKANE LUGO ALEX PATIENT [place] SUPP[place]OT MEDIC ARE SUPPL EMENT Jul 31, 2018 [id number] [phone] RENBRITTNEY,JU A[place] PATIENT [place] [facility] (WNR) MEDICARE ADVANTAGE [facility] (WNR) Jul 31, 2017 [id number] [phone] RENAUX,JU ALEX PATIENT [place] MED[place]ARE SUPPLEMEN SCOT MEDIC ARE SUPPL EMENT Jul 31, 2018 [id number] RENAUX,JU A[place] PAT[place] MEDIC ARE SUPPL EMENT Jul 31, 2018 [id number] [phone] RENAUX,JU ALEX PATIENT MEDICARE (WNR) MEDICARE (M) PART A May 31, 2011 PART A [id number] [phone] KANE PÉREZ PATIENT MEDICARE (WNR) MEDICARE (M) PART B May 31, 2011 PART B [id number] [phone] KANE PÉREZ PATIENT Selected Encounter This section includes the information on record at [place] for the Encounter. Date/Time Encounter Type Encounter Description Reason Provider Source Feb 22, 2024 04:00 PM MTMS BY PHARM ERICK 15 MIN TELEPHONE PRIMARY CARE ICD-10-CM E11.42 Type 2 diabetes mellitus with diabetic polyneuropathy KARI BRITO Candy Encounter Template Text not used by [place] Assessments - Encounter Diagnoses This section includes the primary and secondary diagnoses documented for the Encounter. Date/Time Primary/Secondary Diagnosis Diagnosis Name Provider Source Feb 22, 2024 04:00 PM PRIMARY Type 2 diabetes mellitus with diabetic polyneuropathy KARI BRITO [facility] Plan of Treatment: Future Appointments (+ 6 months) and Future Tests (+/- 45 days) The Plan of Treatment section includes future care activities for the patient from all [place] [facility]. This section includes future appointments and future orders which are active, pending or scheduled. Future Appointments This section includes appointments that were scheduled to occur 6 months from the date of the Encounter, up to a maximum of 20 appointments. The data comes from all [place] treatment facilities. Appointment Date/Time Appointment Type Appointme nt Facility Name Apr 09, 2024 09:00 AM AMBULATORY - NONE [facility] Apr 12, 2024 11:30 AM AMBULATORY - NONE [facility] Social History: Smoking Status (Most current) and Tobacco Use (All prior to encounter date) This section includes the most current, and the historical, smoking and tobacco- related health factors from the [place] facility where the Encounter took place. Current Smoking Status This section includes the most current smoking, or tobacco-related health factor, from the [place] facility where the Encounter took place. Date/Time Current Smoking Status Quique peng Aug 18, 2022 08:30 AM VA-TOBACCO FORMER USER [facility] Tobacco Use History This section includes a history of the smoking, or tobacco-related health factors, that were collected on or before the date of the Encounter. The data comes from the [place] facility where the Encounter took place. Date/Time [...] ALL of a patient's completed or amended [place] Advance and Rescinded Directives. The entries below indicate that a directive exists for the patient, but an actual copy is not included with this document. The data comes from all [place] facilities. Date Advance Directives Provider Source Jun 22, 2021 ADVANCE DIRECTIVE DISCUSSION ALLYSON GRAF [facility] Jun 22, 2021 ADVANCE DIRECTIVE ALLYSON GRAF [facility] Mar 09, 2007 ADVANCE DIRECTIVE [facility] Encounter Notes: All associated encounter notes This section contains the clinical notes associated to the Encounter. Date/Time Encounter Note(s) Provider Source Feb 22, 2024 03:45 PM TECHNICAL OPERATIONS SPECIALIST NOTE: LOCAL TITLE: DIABETES TECHNICAL OPERATIONS SPECIALIST NOTE STANDARD TITLE: TECHNICAL OPERATIONS SPECIALIST NOTE DATE OF NOTE: FEB 22, 2024@15:45 ENTRY DATE: FEB 22, 2024@15:45:52 AUTHOR: KARI BRITOIGNER: URGENCY: STATUS: COMPLETED BACKGROUND: BETOMIGUELINA CHRISTIAN is [...] sandwich or grapes/cheese, beef stew Evening meal: case aide -- sandwich or fruit/cheese Snacks: snickers, [place] kisses, ice cream, cookies on occasion. other [...] ALB/CREAT RATIO,U 9.70 mg/gCreat 0 - 30 Gamino Freestyle Ashley 3 (Smart Phone Marli) Glucose Monitoring [...] used to adhere sensor to the skin. [place] verbalized understanding of risks and agreed to proceed. Equipment Education: FREESTYLE ASHLEY 3 SENSOR: Explained insertion procedure and proceeded with insertion: 1. Area in left upper posterior arm was cleaned with alcohol swab. (Discussed use intended area of use is back of arms as device has not been approved for use on other sites.) 2. Gamino Freestyle Ashley Sensor was inserted subcutaneously via insertion device without issue by . 3. Discussed the need to change the sensor every 14 days. If adhesive does not stick and sensor falls off before 14 days, is to simply replace with a new sensor. is instructed to then contact trip.me Customer () Service at to report this to the company. [employer] 3 MARLI using SMART PHONE: 1. Marli was downloaded to smart phone from marli store ([employer] or [employer]) 2. Account is set up with username and password established. 3. Patient was given the [place] Practice ID: [email or web address] or emailed an invitation through Dick or Bro to share data with [facility]. *Counseled on using same email for all Z[employer] or Independent IP accounts. 4. Tutorial is reviewed at initiation [...] Off LOW: 70 SIGNAL LOSS: ON 7. [place] able to verbalize back the process of [...] 30 minutes at 3 feet of water. Cuprous Chloride Operator is NOT waterproof. 8. Reviewed the use [...] technical issues with the marli contact ALEX [place] HELPLINE: [phone] 14. If you are unable to upload your device from home or share your data via your smartphone then you will need to be seen in clinic to upload your device at scheduled intervals as part of your agreement to receive CGM supplies and support through the [place]. [place] or operations support representative verbalized understanding. ASSESSMENT: #T2DM with a [...] 3 CGM -Using an iphone 8 plus Lifestyle: -Consider PT to help with deconditioning #Disease-Specific Med Rec: Completed today #Labs: up-to-date - Educated vet on indication/risks/benefits of new/changed medication. - Education provided on therapeutic nonpharmacologic management to achieve goals. - Vet advised of recent labs. - [place] verbalized understanding to all plans discussed today. Questions were answered to vet's satisfaction. Time spent: 30 minutes RTC: - 03/27 pharmD phone prefers to avoid [facility]-only has a cellphone /toby/ KARI BRITO PHARM D, BCPS Clinical Pharmacist Practitioner-4D [facility] Signed: 02/23/2024 08:40 KARI BRITO [facility]
--- OUTSIDE RECORDS SUMMARY | 2024-04-09 11:35 | XMS_ITS | Encounter Summary ---
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 Organization [place] Address [address] [place] [address] Care Team Providers Care Steel Fabricator Name Role Phone CHARLEE FISH Primary Care Provider [facility] le Insurance Providers: All historical and current [...] MEDIC ARE SUPPL EMENT Jul 31, 2018 [id number] KANE MANTILLA A[place] PATIENT [place] SUPPLE[place] MEDIC ARE SUPPL EMENT Jul 31, 2018 [id number] [phone] RENBRITTNEY,JU ALEX PATIENT [place] [facility] [place]) MEDICARE ADVANTAGE MCR (WNR) Jul 31, 2017 [id number] [phone] RENBRITTNEY,KANE ALEX PATIENT [place] MEDICARE SUPPLEMEN [place]OT MEDIC ARE SUPPL EMENT Jul 31, 2018 [id number] RENBRITTNEY,KANE ALEX PATIENT [place] MED[place] SUPPLEMEN [place]OT MEDIC ARE SUPPL EMENT Jul 31, 2018 [id number] [phone] KANE MANTILLA PATIENT MEDICARE (WNR) MEDICARE (M) PART A May 31, 2011 PART A [id number] [phone] KANE MANTILLA PATIENT MEDICARE (WNR) MEDICARE (M) PART B May 31, 2011 PART B [id number] [phone] KANE MANTILLA PATIENT Selected Encounter This section includes the information on record at [place] for the Encounter. Date/Time Encounter Type Encounter Description Reason Provider Source Mar 27, 2024 01:53 PM QNHP OL DIG ASSMT&MGMT 11-20 CLINICAL PHARMACY ICD-10-CM E11.42 Type 2 diabetes mellitus with diabetic polyneuropathy KARI BRITO [facility] Encounter Template Text not used by [place] Assessments - Encounter Diagnoses This section includes the primary and secondary diagnoses documented for the Encounter. Date/Time Primary/Secondary Diagnosis Diagnosis Name Provider Source Mar 27, 2024 01:56 PM PRIMARY Type 2 diabetes mellitus with diabetic polyneuropathy KARI BRITO [facility] Plan of Treatment: Future Appointments (+ 6 months) and Future Tests (+/- 45 days) The Plan of Treatment section includes future care activities for the patient from all [place] [facility]. This section includes future appointments [...] 09, 2024 09:00 AM AMBULATORY - NONE [facility] Apr 12, 2024 11:30 AM AMBULATORY - NONE [facility] Social History: Smoking Status (Most current) and [...] 18, 2022 08:30 AM VA-TOBACCO FORMER USER [facility] Tobacco Use History This section includes a history of the smoking, or tobacco-related health factors, that were collected on or before the date of the Encounter. The data comes from the [place] facility where the Encounter took place. Date/Time Smoking Status/Tobacco Use Comment F acility Aug 18, 2022 08:30 AM VA-TOBACCO QUIT 15 YRS OR MORE [facility] May 03, 2021 08:00 AM VA-TOBACCO FORMER USER [facility] May 03, 2021 08:00 AM VA-TOBACCO QUIT 15 YRS OR MORE [facility] Apr 21, 2020 09:00 AM VA-TOBACCO FORMER USER [facility] Apr 21, 2020 09:00 AM VA-TOBACCO QUIT 15 YRS OR MORE [facility] Apr 03, 2018 03:16 PM FORMER TOBACCO USE >1Y <7Y [facility] Mar 09, 2007 10:41 AM CURRENT TOBACCO USER [facility] Advance Directives: All historical and current Section Date Range: From patient's date of to the date document was created. This section includes ALL of a patient's completed or amended [place] Advance and Rescinded Directives. The entries below indicate that a directive exists for the patient, but an actual copy is not included with this document. The data comes from all [facility]. Date Advance Directives Provider Source Jun 22, 2021 ADVANCE DIRECTIVE DISCUSSION ALLYSON GRAF [facility] Jun 22, [address]ANCE [address]YSON G[address] [facility] Mar 09, 2007 ADVANCE DIRECTIVE [facility] Encounter Notes: All associated encounter notes This section contains the clinical notes associated to the Encounter. Date/Time Encounter Note(s) Provider Source Mar 27, 2024 01:53 PM POWERHOUSE LABORER NOTE: LOCAL TITLE: DIABETES POWERHOUSE LABORER NOTE STANDARD TITLE: POWERHOUSE LABORER NOTE DATE OF NOTE: MAR 27, 2024@13:53 ENTRY DATE: MAR 27, 2024@13:53:20 AUTHOR: KARI BRITO COSIGNER: URGENCY: STATUS: COMPLETED BACKGROUND: BETOMIGUELINA CHRISTIAN is a 78 YO MALE followed by this food writer for DM. A chart review was [...] brief episodes of hypoglycemia noted in the line tender flakeboard. A couple days with more significantly elevated [...] carb intake and/or a referral to our waistband setter lockstitch. PLAN: Medications: -Continue present regimen, as above [...] BCPS Clinical Pharmacist Practitioner- [facility]CT Clinic Signed: 03/27/2024 13:57 KARI BRITO [facility]
--- OUTSIDE RECORDS SUMMARY | 2024-04-09 11:35 | XMS_ITS | Encounter Summary ---
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 Address [address] [place] [address] Care Team Providers Care Cubing Machine Tender Name Role Phone CHARLEE FISH Primary Care Provider [facility] le Insurance Providers: [...] MEDIC ARE SUPPL EMENT Jul 31, 2018 [id number] [phone] KANE PÉREZ A[place] PATIENT [place] MEDIC ARE SUPPL EMENT Jul 31, 2018 [id number] [phone] RENBRITTNEY,JU ALEX PATIENT [place] ([place]) MEDICARE ADVANTAGE MCR (WNR) Jul 31, 2017 [id number] [phone] RENBRITTNEY,KANE ALEX PATIENT [place] MED[place] SUPPLEMEN [place]OT MEDIC ARE SUPPL EMENT Jul 31, 2018 [id number] RENBRITTNEY,KANE ALEX PATIENT [place] MEDIC ARE SUPPL EMENT Jul 31, 2018 [id number] [phone] KANE PÉREZ PATIENT MEDICARE (WNR) MEDICARE (M) PART A May 31, 2011 PART A [id number] KANE PÉREZ PATIENT MEDICARE (WNR) MEDICARE (M) PART B May 31, 2011 PART B [id number] KANE PÉREZ PATIENT Selected Encounter This section includes the information on record at [place] for the Encounter. Date/Time Encounter Type Encounter Description Reason Provider Source Jan 19, 2024 09:01 AM QNHP OL DIG ASSMT&MGMT 5-10 CLINICAL PHARMACY ICD-10-CM E11.42 Type 2 diabetes mellitus with diabetic polyneuropathy HUBERT CHOWDHURY [facility] Encounter Template Text not used by [place] Assessments - Encounter Diagnoses This section includes the primary and secondary diagnoses documented for the Encounter. Date/Time Primary/Secondary Diagnosis Diagnosis Name Provider Source Jan 19, 2024 09:04 AM PRIMARY Type 2 diabetes mellitus with diabetic polyneuropathy HUBERT CHOWDHURY [facility] Plan of Treatment: Future Appointments (+ 6 months) and Future Tests (+/- 45 days) The Plan of Treatment section includes future care activities for the patient from all [place] [facility]. This section includes future appointments and future [...] 22, 2024 04:00 PM AMBULATORY - NONE [facility] Apr 09, 2024 09:00 AM AMBULATORY - NONE [facility] Apr 12, 2024 11:30 AM AMBULATORY - NONE [facility] Social History: Smoking Status (Most current) and Tobacco Use (All prior to encounter date) This section includes the most current, and the historical, smoking and tobacco- related health factors from the [place] facility where the Encounter took place. Current [...] MEDICAL CENTER Apr 21, 2020 09:00 AM [place]-TOBACCO QUIT 15 YRS OR MORE [facility] [...] this document. The data comes from all [facility]. Date Advance Directives Provider Source Jun 22, 2021 ADVANCE DIRECTIVE DISCUSSION ALLYSON GRAF [facility] Jun 22, 2021 ADVANCE DIRECTIVE ALLYSON GRAF [facility] Mar 09, 2007 ADVANCE DIRECTIVE [...] LID CONTACT GARBAGE HAULER FOR PROPER DISPOSAL OMEPRAZOLE 20MG EC CAP [...] Pharm.D PHARMACIST Signed: 01/19/2024 09:04 HUBERT CHOWDHURY [facility]
--- OUTSIDE RECORDS SUMMARY | 2024-04-09 11:35 | XMS_ITS | Encounter Summary ---
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 Address [address] [place] [address] Care Team Providers Care Director Of Early Childhood Education Name Role Phone CHARLEE FISH Primary Care [...] MEDIC ARE SUPPL EMENT Jul 31, 2018 [id number] RENKANE LUGO A[place] PATIENT [place] MEDIC ARE SUPPL EMENT Jul 31, 2018 [id number] [phone] RENBRITTNEY,JU ALEX PATIENT [place] [facility] (WNR) MEDICARE ADVANTAGE [facility] (WNR) Jul 31, 2017 [id number] [phone] RENAUX,JU ALEX PATIENT [place] MEDIC ARE SUPPL EMENT Jul 31, 2018 [id number] RENAUX,JU ALEX PATIENT [place] MEDIC ARE SUPPL EMENT Jul 31, 2018 [id number] [phone] RENBRITTNEY,JU ALEX PATIENT MEDICARE (WNR) MEDICARE (M) PART A May 31, 2011 PART A [id number] KANE PÉREZ PATIENT MEDICARE (WNR) MEDICARE (M) PART B May 31, 2011 PART B [id number] KANE PÉREZ PATIENT Selected Encounter This section includes the information on record at [place] for the Encounter. Date/Time Encounter Type Encounter Description Reason Provider Source Jan 19, 2024 08:08 AM Outpatient Encounter ENDOCRINOLOGY ICD-10-CM E11.42 Type 2 diabetes mellitus with diabetic polyneuropathy Cynthia TONEY Candy Encounter Template Text not used by [place] Assessments - Encounter Diagnoses This section includes the primary and secondary diagnoses documented for the Encounter. Date/Time Primary/Secondary Diagnosis Diagnosis Name Provider Source Jan 19, 2024 08:11 AM PRIMARY Type 2 diabetes mellitus with diabetic polyneuropathy JESSICA LUGO [facility] Plan of Treatment: Future Appointments (+ 6 months) and Future Tests (+/- 45 days) The Plan of Treatment section includes future care activities for the patient from all [place] [facility]. This section includes future appointments and [...] 22, 2024 04:00 PM AMBULATORY - NONE [facility] Apr 09, 2024 09:00 AM AMBULATORY NONE [facility] Apr 12, 2024 11:30 AM AMBULATORY NONE [facility] Social History: Smoking Status (Most current) [...] 18, 2022 08:30 AM VA-TOBACCO FORMER USER [facility] Tobacco Use History This section includes a history of the smoking, or tobacco-related health factors, that were collected on or before the date of the Encounter. The data comes from the [place] facility where the Encounter took place. Date/Time Smoking Status/Tobacco Use Comment F acility Aug 18, 2022 08:30 AM VA-TOBACCO QUIT 15 YRS OR MORE [facility] May 03, 2021 08:00 AM VA-TOBACCO FORMER USER [facility] May 03, 2021 08:00 AM VA-TOBACCO QUIT 15 YRS OR MORE [facility] Apr 21, 2020 09:00 AM VA-TOBACCO FORMER USER [facility] Apr 21, 2020 09:00 AM VA-TOBACCO QUIT 15 YRS OR MORE [facility] Apr 03, 2018 03:16 PM FORMER TOBACCO USE >1Y <7Y [facility] Mar 09, 2007 10:41 AM CURRENT TOBACCO USER [facility] Advance Directives: All historical and current [...] 22, 2021 ADVANCE DIRECTIVE DISCUSSION ALLYSON GRAF [facility] Jun 22, 2021 ADVANCE DIRECTIVE ALLYSON GRAF [facility] Mar 09, 2007 ADVANCE DIRECTIVE [facility] WOLFF [facility] Encounter Notes: All associated encounter notes [...] and outside records if available. Treatment by [place] Endocrinology or personnel security specialist Diagnosis of Diabetes Mellitus (type I [...] EVERY WEEK FOR DIABETES INPT MEDICATIONS:NONE Recommendations: [place] meets criteria for personal CGM. Case reviewed with Chief of Metabolic Service Line or proxy; is approved for personal CGM. /toby/ Jessica Lugo RN, [facility] Certified Diabetes Care & Boat Cleaner Signed: 01/19/2024 08:11 JESSICA LUGO [facility]
--- OUTSIDE RECORDS SUMMARY | 2024-04-09 11:35 | XMS_ITS | Encounter Summary ---
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 Address [address] [place] [address] Care Team Providers Care Consumer Insight Analyst Name Role Phone CHARLEE FISH Primary [...] to Policy [place] MED[place] ARE SUPPL EMENT Jul 31, 2018 [id number] RENAUX,JU ALEX PAT[place] MED[place] ARE SUPPL EMENT Jul 31, 2018 [id number] [phone] RENAUX,JU A[place] PAT[place] [facility] (WNR) MEDICARE ADVANTAGE [facility] (WNR) Jul 31, 2017 [id number] [phone] RENAUX,JU ALEX PATIENT [place] SUPPLE[place] SCOT MEDIC ARE SUPPL EMENT Jul 31, 2018 [id number] RENAUX,JU A[place] PAT[place] MED[place] ARE SUPPL EMENT Jul 31, 2018 [id number] [phone] RENAUX,JU ALEX PATIENT MEDICARE (WNR) MEDICARE (M) PART A May 31, 2011 PART A [id number] [phone] KANE PÉREZ PATIENT MEDICARE ([place]NR) MEDICARE (M) PART B May 31, 2011 PART B [id number] [phone] AKNE PÉREZ PATIENT Selected Encounter This section includes the information on record at [place] for the Encounter. Date/Time Encounter Type Encounter Description Reason Provider Source Feb 27, 2024 10:11 AM Outpatient Encounter TELEPHONE/ANCILLARY JOSUÉ CAPPS Encounter Template Text not used by [place] Plan of Treatment: Future Appointments (+ 6 months) and Future Tests (+/- 45 days) The Plan of Treatment section includes future care activities for the patient from all [place] [facility]. This section includes future appointments and future orders which are active, pending or scheduled. Future Appointments This section includes appointments that were scheduled to occur 6 months from the date of the Encounter, up to a maximum of 20 appointments. The data comes from all [place] treatment facilities. Appointment Date/Time Appointment Type Appointme nt Facility Name Apr 09, 2024 09:00 AM AMBULATORY - NONE [facility] Apr 12, 2024 11:30 AM AMBULATORY - NONE [facility] Social History: Smoking Status (Most current) and Tobacco Use (All prior to encounter date) This section includes the most current, and the historical, smoking and tobacco- related health factors from the [place] facility where the Encounter took place. Current Smoking Status This section includes the most current smoking, or tobacco-related health factor, from the [place] facility where the Encounter took place. Date/Time Current Smoking Status Comment Diego peng Aug 18, 2022 08:30 AM VA-TOBACCO QUIT [address] [facility] Tobacco Use History This section includes a history of the smoking, or tobacco-related health factors, that were collected on or before the date of the Encounter. The data comes from the [place] facility where the Encounter took place. Date/Time Smoking Status/Tobacco Use Comment Darline soriano Aug 18, 2022 08:30 AM VA-TOBACCO QUIT [address] [facility] May 03, 2021 08:00 AM VA-TOBACCO FORMER USER [facility] May 03, 2021 08:00 AM VA-TOBACCO QUIT [address] [facility] Apr 21, 2020 09:00 AM VA-TOBACCO FORMER USER [facility] Apr 21, 2020 09:00 AM [place]-TOBACCO QUIT [address] [facility] Apr 03, 2018 03:16 PM FORMER TOBACCO USE >1Y <7Y [facility] Mar 09, 2007 10:41 AM CURRENT TOBACCO USER [facility] Advance Directives: All historical and current Section Date Range: From patient's date of to the date document was created. This section includes ALL of a patient's completed or amended [place] Advance and Rescinded Directives. The entries below indicate that a directive exists for the patient, but an actual copy is not included with this document. The data comes from all [place] facilities. Date Advance Directives Provider Source Jun 22, 2021 ADVANCE DIRECTIVE DISCUSSION ALLYSON GRAF [facility] Jun 22, 2021 ADVANCE DIRECTIVE ALLYSON GRAF [facility] Mar 09, 2007 ADVANCE DIRECTIVE SOLEDAD [...] MA, RN Signed: 02/28/2024 16:12 JOSUÉ CAPPS [facility]
--- OUTSIDE RECORDS SUMMARY | 2024-04-09 11:35 | XMS_ITS | Encounter Summary ---
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 Address [address] [place] [address] Care Team Providers Care Sales And Marketing Executive Name Role Phone CHARLEE FISH Primary Care [...] MEDIC ARE SUPPL EMENT Jul 31, 2018 [id number] RODNEYBRITTNEYKANE ALEX [place]IENT [place] MED[place] ARE SUPPL EMENT Jul 31, 2018 [id number] [phone] RENBRITTNEYKANE ALEX PATIENT [place]BS [place] [facility] (WNR) MEDICARE ADVANTAGE [facility] (WNR) Jul 31, 2017 [id number] [phone] RENBRITTNEY,KANE ALEX PATIENT [place] MEDIC ARE SUPPL EMENT Jul 31, 2018 [id number] RENBRITTNEY,JU A[place] MED[place] ARE SUPPL EMENT Jul 31, 2018 [id number] [phone] RENBRITTNEY,KANE ALEX PATIENT MEDICARE (WNR) MEDICARE (M) PART A May 31, 2011 PART A [id number] [phone] KANE PÉREZ PATIENT MEDICARE ([place]) MEDICARE (M) PART B May 31, 2011 PART B [id number] [phone] KANE PÉREZ PATIENT Selected Encounter This section includes the information on record at [place] for the Encounter. Date/Time Encounter Type Encounter Description Reason Pro vider Source IHE Encounter Template Text not used by [place] Advance Directives: All historical and current Section Date Range: From patient's date of to the date document was created. This section includes ALL of a patient's completed or amended [place] Advance and Rescinded Directives. The entries below indicate that a directive exists for the patient, but an actual copy is not included with this document. The data comes from all [place] facilities. Date Advance Directives Provider Source Jun 22, 2021 ADVANCE DIRECTIVE DISCUSSION ALLYSON GRAF [facility] Jun 22, 2021 ADVANCE DIRECTIVE ALLYSON GRAF [facility] Mar 09, 2007 ADVANCE DIRECTIVE SOLEDAD WOLFF [facility]
--- OUTSIDE RECORDS SUMMARY | 2024-04-09 11:35 | XMS_ITS | Encounter Summary ---
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 Address [address] [place] [address] Care Team Providers Care Hat And Cap Opener Name Role Phone CHARLEE FISH Primary Care [...] MEDIC ARE SUPPL EMENT Jul 31, 2018 [id number] RENAUX,JU [place] SUPPL EMENT Jul 31, 2018 [id number] [phone] RENAUX,JU [place] [facility] ([place]NR) MEDICARE ADVANTAGE [facility] (WNR) Jul 31, 2017 [id number] [phone] RENAUX,JU [place] MED[place] ARE SUPPL EMENT Jul 31, 2018 [id number] RENAUX,JU A[place] MED[place] ARE SUPPL EMENT Jul 31, 2018 [id number] [phone] RENAUX,JU ALEX PATIENT MEDICARE (WNR) MEDICARE (M) PART A May 31, 2011 PART A [id number] [phone] KANE PÉREZ PATIENT MEDICARE ([place]NR) MEDICARE (M) PART B May 31, 2011 PART B [id number] [phone] KANE PÉREZ PATIENT Selected Encounter This section includes the information on record at [place] for the Encounter. Date/Time Encounter Type Encounter Description Reason Pro vider Source Mar 14, 2024 02:32 PM Outpatient Encounter CLINICAL PHARMACY IHE Encounter Template Text not used by [place] Plan of Treatment: Future Appointments (+ 6 months) and Future Tests (+/- 45 days) The Plan of Treatment section includes future care activities for the patient from [facility] [place] [facility]. This section includes future appointments and future orders which are active, pending or scheduled. Future Appointments This section includes appointments that were scheduled to occur 6 months from the date of the Encounter, up to a maximum of 20 appointments. The data comes from all [facility] facilities. Appointment Date/Time Appointment Type Appointme nt Facility Name Apr 09, 2024 09:00 AM AMBULATORY - NONE [facility] Apr 12, 2024 11:30 AM AMBULATORY - NONE [facility] Social History: Smoking Status (Most [...] 18, 2022 08:30 AM VA-TOBACCO FORMER USER [facility] Tobacco Use History This section includes a history of the smoking, or tobacco-related health factors, that were collected on or before the date of the Encounter. The data comes from the [place] facility where the Encounter took place. Date/Time Smoking Status/Tobacco Use Comment Darline soriano Aug 18, 2022 08:30 AM VA-TOBACCO QUIT 15 YRS OR MORE [facility] May 03, 2021 08:00 AM VA-TOBACCO FORMER USER [facility] May 03, 2021 08:00 AM VA-TOBACCO QUIT 15 YRS OR MORE [facility] Apr 21, 2020 09:00 AM VA-TOBACCO FORMER USER [facility] Apr 21, 2020 09:00 AM VA-TOBACCO QUIT 15 YRS OR MORE [facility] Apr 03, 2018 03:16 PM FORMER TOBACCO USE >1Y <7Y [facility] Mar 09, 2007 10:41 AM CURRENT TOBACCO USER [facility] Advance Directives: All historical and [...] 22, 2021 ADVANCE DIRECTIVE DISCUSSION ALLYSON GRAF [facility] Jun 22, 2021 ADVANCE DIRECTIVE ALLYSON GRAF [facility] Mar 09, 2007 ADVANCE DIRECTIVE SOLEDAD [...] ASHISH STOKES EXP COSIGNER: URGENCY: STATUS: COMPLETED [facility] [address] [place] [address] Feb MIGUELINA PÉREZ [address] [address] Dear , A package containing the following medication(s)/supply item(s) was returned by the USPS/UPS: [id number]$ INSULIN,GLARGINE-YFGN 100UNIT/ML PEN 3ML Reason for return: [...] OUT ON Monday03/18/2024. /toby/ ASHISH STOKES pharmacy clinical specialist Signed: 03/14/2024 14:34 ASHISH STOKES [facility]
--- OUTSIDE RECORDS SUMMARY | 2024-04-09 11:36 | XMS_ITS | Data Portability ---
Author Organization [place] [facility] Address [address] [place] [address] Care Team Providers Care Lathe Operator Contact Lens Name Role Phone POST, SUE Primary Care Provider [phone] Assessment Encounter Date Assessment Date Assessment LastModified [...] of Hospitaliza tion for UTI. 2022 023 [facility], [address], [place], [address], 3 10:05:08 urinalysis, dipstick 2022 023 [facility], [address], [place], [address], 12:03:37 Referral None recorded. Procedures None recorded. Surgeries None recorded. Imaging None recorded. Medication Orders None recorded. Patient TargetsNo targets recorded. Patient Instructions Encounter Date Encounter Id Patient Instructions Last Modified By Organization Details Last Modified Time 09/23/2022 [id number] Patient to call clinic with questions or concerns. Advised patient to increase water intake and to keep 4 week appointment for next catheter change. [email or web address] Not available 09/23/2022 13:22:30 11/04/2022 [id number] Pt has F/U appt with Dr Barrientos in [place] on 11/11/2022 @ 3:10pm to review UDS. [...] ate 3) Sensi tivit y Priscila sis [place] te 1 [place] te 2 [place] te 3 ----- ----- ----- ----- ----- [...] for provi brandon revie w. Not Available [facility] [address], [place], [address], 11/07/2022 10:05:08 11/05/19 23 11/04/2022 urina lysis , dipst ick Color-Status Straw Not Available [facility] [address], [place], [address], 11/04/2022 12:02:10 11/05/19 23 11/04/2022 urina lysis , dipst ick Clarity-Stat us Slight ly Cloudy Not Available [facility] [address], [place], [address], 11/04/2022 12:02:10 11/05/19 23 11/04/2022 urina lysis , dipst ick Glucose-Stat us 500 Not Available [facility] [address], [place], [address], 11/04/2022 12:02:10 11/05/19 23 11/04/2022 urina lysis , dipst ick Bilirubin-St atus Negati ve Not Available [facility] [address], [place], [address], 11/04/2022 12:02:10 11/05/19 23 11/04/2022 urina lysis , dipst ick Ketones-Stat us Negati ve Not Available [facility] [address], [place], [address], 11/04/2022 12:02:10 11/05/19 23 11/04/2022 urina lysis , dipst ick Sp [place]-Stat us 1.015 Not Available [facility] [address], [place], [address], 11/04/2022 12:02:10 11/05/19 23 11/04/2022 urina lysis , dipst ick pH-Status 6.5 Not Available [facility] [address], [place], [address], 11/04/2022 12:02:10 11/05/19 23 11/04/2022 urina lysis , dipst ick Protein-Stat us 5.0 Not Available [facility] [address], [place], [address], 11/04/2022 12:02:10 11/05/19 23 11/04/2022 urina lysis , dipst ick Urobilinogen -Status 0.2 Not Available [facility] [address], [place], [address], 11/04/2022 12:02:10 11/05/19 23 11/04/2022 urina lysis , dipst ick Nitrates-Sta tus positi ve Not Available [facility] [address], [place], [address], 11/04/2022 12:02:10 11/05/19 23 11/04/2022 urina lysis , dipst ick Blood-Status Large Not Available [facility] [address], [place], [address], 11/04/2022 12:02:10 11/05/19 23 11/04/2022 urina lysis , dipst ick Leuko-Status Large Not Available [facility] [address], [place], [address], 11/04/2022 12:02:10 11/05/19 23 11/04/2022 urina lysis , dipst ick Specimen Type Cathet erized Not Available [facility] [address], [place], [address], 11/04/2022 12:02:10 11/05/19 23 11/04/2022 urina lysis , dipst ick Performed by LKchuckve n1 Not Available [facility] [address], [place], [address], 11/04/2022 12:02:10 Result Notes None recorded. Problems Name Problem SNOMED Code Status Onset Date Resolution Date Notes Provider Name and Address Organization Details Recorded Time Retention of urine 461056097 [facility] 13:15:43 Problem Notes None recorded. Procedures Surgical History Date Name Laterality Status Provider Name and Address Organization Details Recorded Time 3 Fill and Pull/Voiding Trial/TOV completed Jenna Harris null, [facility] 12/09/2022 11:59:45 3 Urodynamic Studies completed Deyanira Woods null, [facility] 11/04/2022 12:19:38 3 Gordon Catheter Insertion completed Deyanira Woods null, [facility] 11/04/2022 12:21:21 3 [facility]rethral [facility]atheter Change [facility]22 13:18:32 3 Urethral Catheter Change completed Nenita Flores null, [facility] 09/23/2022 13:21:12 3 Gordon Catheter Insertion completed Roula Beltran null, [facility] 08/03/2022 11:16:51 3 Fill and Pull/Voiding Trial/TOV completed Roula Beltran [facility] 08/03/2022 11:16:41 2 Cystoscopy- male completed Kristopher Barrientos MD, PHD [address] [place] [address], [phone], [facility] 06/30/2022 09:37:30 2 Urethral Catheter Change completed Carlos Mix null, [facility] 06/30/2022 09:49:15 2 Gordon Catheter Insertion completed Juanito Josue null, [facility] 06/16/2022 15:03:22 2 Fill and Pull/Voiding Trial/TOV completed Roula Tony PA-C [address] [place] [address], [address], [facility] 06/16/2022 18:06:50 [facility]aract [facility] 12:30:25 Orthopedic Surgery completed Juanito Gannonfidel song [facility] 06/16/2022 12:30:33 Imaging Results None [...] Updated DateTime 09/23/2022 180.34 cm Nenita Flores [facility] 09/23/2022 13:17:39 Date Recorded Body height Body mass index (BMI) Body weight Provider Name and Address Organization Details Last Updated DateTime 11/11/2022 180.34 cm 30 kg/m2 10038.36 g Amanda Molina [facility] 11/11/2022 16:25:51 Social History Question Answer Notes LastModified by Organizat ion Details LastModified Time Tobacco Smoking Status Former Smoker Еленаarminda Shafferamfidel song [facility] 06/16/2022 12:29:38 What Is Your [...] Diagnosis/Indication Diagnosis SNOMED-CT Code Diagnosis ICD10 Code [id number] Roula Tony PA-C [facility] [address] [place] [address] 06/16/2022 11:30:09 06/20/2022 08:36:10 Retention of urine 377899284 R33.9 Benign pro static hyperplasia with outflow obstruction 805558696 N40.1 [id number] Kristopher green MD, PHD [facility] [address] [place] [address] 06/30/2022 08:46:23 07/04/2022 11:29:58 Retention of urine 471916155 R33.9 Benign pro static hyperplasia with outflow obstruction 742643118 N40.1 [id number] Roula Ruby [facility] [address] [place] [address] 08/03/2022 10:27:16 08/05/2022 11:54:14 Retention of urine 358313598 R33.9 [id number] Nenitaaranza Flores [facility] [address] [place] [address] 09/23/2022 10:30:04 09/26/2022 14:37:37 [id number] Kristopher green MD, PHD [facility] [address] [place] [address] 11/04/2022 10:41:00 11/10/2022 13:37:32 Benign prostatic hyperplasia with outflow obstruction 601581014 N40.1 Retention of urine 99304 4002 R33.9 Microscopic hematuria 19 2614123 R31.29 [id number] Jenna Harris [facility] [address] [place] [address] 10/21/2022 11:27:55 10/24/2022 11:49:09 Retention of urine 287240201 R33.9 [id number] Kristopher green MD, PHD [facility] [address] [place] [address] 11/11/2022 16:25:28 11/17/2022 17:02:38 Retention of urine 653236371 R33.9 Benign pro static hyperplasia with outflow obstruction 872792161 N40.1 [id number] Jenna Harris [facility] [address] [place] [address] 12/09/2022 10:56:01 12/12/2022 15:10:14 Retention of urine 353020249 R33.9 Health Concerns Section Related Observation LastModified by Organization Detai ls LastModified Time None Recorded Concern Status LastModified by Organization Details LastModified Time None Recorded Advance Directives Directive None Recorded Payers Encounter Date Sequence Insurance Name Policy Number Policy Molina Covered Member ID Molina Member ID Guarantor Name 09/23/2022 1 [place] [employer] Tom B Renaux [id number] Tom B Renaux 09/23/2022 2 [place] [id number] Tom B Renaux [id number] Tom B Renaux 10/21/2022 1 [place] [employer] Tom B Renaux [id number] Tom B Renaux 10/21/2022 2 [place] [id number] Tom B Renaux [id number] Tom B Renaux 11/04/2022 1 [place] [employer] Tom B Renaux [id number] Tom B Renaux 11/04/2022 2 [place] [id number] Tom B Renaux [id number] Tom B Renaux 11/11/2022 1 [place] [employer] Tom B Renaux [id number] Tom B Renaux 11/11/2022 2 [place] [id number] Tom B Renaux [id number] Tom B Renaux 12/09/2022 1 [place] [employer] Tom B Renaux [id number] Tom B Renaux 12/09/2022 2 [place] [id number] Tom B Renaux [id number] Tom B Renaux Notes Date Note Type [...] weeks for next catheter change. Nenita song [place] [facility] 09/23/2022 13:22:32 10/21/2022 text/html [...] coordinate their care. Kristopher Barrientos MD, PHD [address] [place] [address],[address], [place], [address], [facility] 11/11/2022 17:49:57 12/09/2022 text/html HPI Notes: Pt of Dr PALMER, here for TOV recommended at 11/11/22 visit Jenna song [facility] 12/09/2022 12:43:22
== END 2024-04-09 11:33 | disposition home or self-care (01) ==
LOC: WOUND 11:32
PROVIDERS: Visit Provider Nurse Practitioner Family
DX: E11.621 Type 2 diabetes mellitus with foot ulcer (principal); L97.512 Non-pressure chronic ulcer of other part of right foot with fat layer exposed; I89.0 Lymphedema, not elsewhere classified; Z79.84 Long term (current) use of oral hypoglycemic drugs; Z79.85 Long-term (current) use of injectable non-insulin antidiabetic drugs
CPT/HCPCS: 97597

== ENCOUNTER 2024-04-16 11:15 | Outpatient (CLI) | payer MEDICARE, BC, SELFPAY ==
--- OUTSIDE RECORDS SUMMARY | 2024-04-16 11:17 | XMS_ITS | Continuity of Care Document ---
Author Name [facility] Organization [facility] Care Team Providers Care Pulp Roller Name Role Phone [facility] Unavailable Unavailable Problems Combined list of problems from Department of Defense and Veterans Affairs facilities. It does not include entries that were removed or entered in error. Problem Status Onset Date Problem Type Date of Resolution Comments Source Exposure to potentially hazardous substance ([facility] [id number]) Active 10/05/19 24 Condition Oct 05, 2023 Entered By: VIJI VIVAS Comment: [facility] Documentation Initiative [facility] Depressive Disorder NOS * (ICD-9-CM 311./300.4) Active Condition [facility] Diabetes mellitus (SNOMED CT 97080403) Active Condition [facility] Diabetic neuropathy Active Condition [facility] Foot Pain (ICD-9-CM 719.47) Active Condition Aug 26 10 Entered By: MALINA WORLEY Comment: left 5th metatarsal fracture [facility] History of amputation of lesser toe Active Condition [facility] Hyperlipidemia (SNOMED CT 12010907) Active Condition [facility] Hyperuricemia Active Condition [facility] Osteopenia Active Condition [facility] Other Iatrogenic Hypotension Active Condition [facility] [facility] [facility] Personal History of Alcoholism (ICD-9-CM V11.3) Active Condition [facility] Tobacco user (SNOMED CT 984314290) Active Condition [facility] Diagnosis: ICD-10-CM E11.42 Type 2 diabetes mellitus with diabetic polyneuropathy Active Diagnosis [facility] Diana [facility] Diagnosis: ICD-10-CM E11.621 Type 2 diabetes mellitus with foot ulcer Active Diagnosis [facility] Diagnosis: ICD-10-CM Z77.29 Contact with and exposure to other hazardous substances Active Diagnosis [facility] Medications Combined list of outpatient [...] by: CHARLEE FISH Document ed at: [facility] ORAL ACTIVE CHARLEE FISH 2022 [facility] ASPIRIN 81MG TAB,EC ASPIRIN 81MG TAB,EC Non-VA TAKE ONE TABLET BY MOUTH EVERY DAY Mar 13, 2007 Non-[place] Document ed by: MARY CHOUDHARY Document ed at: [facility] ORAL ACTIVE JEFF CHOUDHARY A 2006 [facility] ATORVASTATI N CA 40MG TAB ATORVAST ATIN CA 40MG TAB Disconti nued TAKE ONE TABLET BY MOUTH EVERY DAY FOR CHOLESTE ROL Jul 14, 2022 90 Jul 15, 2023 [id number] Mar 31, 2023 NAIDL,TO DD [facility] ORAL DISCONT INUED 07/15/2023 [id number] NAIDL,TOD D 2022 90 [facility] ATORVASTATI N CA 40MG TAB ATORVAST ATIN CA 40MG TAB TAKE ONE TABLET BY MOUTH EVERY DAY FOR CHOLESTE ROL Apr 11, 2023 90 Apr 11, 2024 [id number] December 17, 2023 CHARLEE FISH [facility] ORAL 04/11/2024 [id number] CHARLEE FISH 2022 90 [facility] CHOLECALCIF QUINTIN TAB CHOLECAL CIFEROL TAB Non-VA TAKE 5000 UNITS BY MOUTH EVERY DAY Aug 21, 2022 Non-VA Document ed by: CHARLEE FISH Document ed at: [facility] ORAL ACTIVE CHARLEE FISH 2022 [facility] COENZYME Q10 CAP/TAB COENZYME Q10 CAP/TAB Non-VA TAKE 1 CAPSULE BY MOUTH EVERY DAY Aug 21, 2022 Non-VA Document ed by: CHARLEE FISH Document ed at: [facility] ORAL ACTIVE CHARLEE FISH 2022 [facility] CYANOCOBALA MIN 1000MCG TAB CYANOCOB ALAMIN 1000MCG TAB Non-VA TAKE ONE TABLET BY MOUTH EVERY DAY Mar 09, 2022 Non-VA Document ed by: MAUREEN BRITO DD Document ed at: [facility] ORAL ACTIVE DEAN BRITO 2021 [facility] DICLOFENAC NA 1% GEL,TOP DICLOFEN AC NA 1% GEL,TOP APPLY 4 GRAMS TOPICALL Y FOUR TIMES A DAY NEEDED FOR JOINT PAIN JOINT PAIN Mar 22, 2023 100 Mar 22, 2024 [id number] Mar 22, 2023 CHARLEE FIHS [facility] TOPICA L 03/22/2024 [id number] FISHCHARLEE Robinson 2022 100 [facility] FINASTERIDE 5MG TAB FINASTER RACHEL 5MG TAB Disconti nued TAKE ONE TABLET BY MOUTH EVERY DAY FOR PROSTATE FOR PROSTATE Jul 12, 2022 90 Jul 13, 2023 [id number] Mar 31, 2023 CHARLEE FISH [facility] ORAL DISCONT INUED 07/13/2023 [id number] ABE CHARLEE Robinson 2021 90 [facility] FINASTERIDE 5MG TAB FINASTER RACHEL 5MG TAB TAKE ONE TABLET BY MOUTH EVERY DAY FOR PROSTATE FOR PROSTATE Apr 11, 2023 90 Apr 11, 2024 [id number] A Jan 08, 2024 FISHCHARLEE Bowers [facility] ORAL 04/11/2024 [id number] FISHCHARLEE Bowers Robinson 2022 90 [facility] FISH OIL 1000MG (500MG DHA/EPA) CAP,ORAL FISH OIL 1000MG (500MG DHA/EPA) CAP,ORAL Non-VA TAKE 1 CAPSULE BY MOUTH TWICE A DAY Mar 13, 2007 Non-VA Document ed by: MARY CHOUDHARY A Document ed at: [facility] ORAL ACTIVE JEFF CHOUDHARY ER A 2006 [facility] INSULIN,GLA RGINE-YFGN 100UNIT/ML INJ PEN,3ML INSULIN, GLARGINE -YFGN 100UNIT/ ML INJ PEN,3ML Active INJECT 24 UNITS UNDER THE SKIN EVERY EVENING FOR DIABETES FOR DIABETES Aug 29, 2023 5 Aug 29, 2024 [id number] Mar 14, 2024 NAIDL,TO DD [facility] SUBCUT ANEOUS ACTIVE 08/29/2024 [id number] NAIDL,TOD D 2023 5 [facility] INSULIN,GLA RGINE-YFGN 100UNIT/ML INJ PEN,3ML INSULIN, GLARGINE -YFGN 100UNIT/ ML INJ PEN,3ML Disconti nued INJECT 22 UNITS UNDER THE SKIN AT BEDTIME FOR DIABETES FOR DIABETES Jan 06, 2023 5 Jan 07, 2024 [id number] Jul 25, 2023 NAIDL,TO DD [facility] SUBCUT ANEOUS DISCONT INUED (EDIT) 01/07/2024 [id number] NAIDL,TOD D 2022 5 [facility] LIDOCAINE 4% CREAM,TOP LIDOCAIN E 4% CREAM,TO P APPLY MODERATE AMOUNT TOPICALL Y THREE TIMES A DAY FOR PAIN PAIN Mar 22, 2023 30 Mar 22, 2024 [id number] Mar 22, 2023 CHARLEE FISH [facility] TOPICA L 03/22/2024 [id number] CHARLEE FISH 2022 30 [facility] MAGNESIUM OXIDE 400MG TAB MAGNESIU M OXIDE 400MG TAB Non-VA TAKE ONE TABLET BY MOUTH EVERY DAY Aug 21, 2022 Non-VA Document ed by: CHARLEE FISH Document ed at: [facility] ORAL ACTIVE CHARLEE FISH 2022 [facility] MENTHOL/MET HYL SALICYLATE (10-15%) LOW CONC. CREAM,TOP MENTHOL/ METHYL SALICYLA TE (10-15%) LOW CONC. CREAM,TO P APPLY THIN LAYER TOPICALL Y THREE TIMES A DAY FOR MUSCLE PAIN MUSLCE PAIN Mar 22, 2023 90 Mar 22, 2024 [id number] Mar 22, 2023 CHARLEE FISH [facility] TOPICA L 03/22/2024 [id number] CHARLEE FISH 2022 90 [facility] METFORMIN HCL 1000MG TAB METFORMI N HCL 1000MG TAB Disconti nued TAKE ONE TABLET BY MOUTH TWICE A DAY FOR DIABETES Jul 14, 2022 180 Jul 15, 2023 [id number] Apr 06, 2023 NAIDL,TO DD [facility] ORAL DISCONT INUED 07/15/2023 [id number] NAIDL,TOD D 2022 180 [facility] METFORMIN HCL 1000MG TAB METFORMI N HCL 1000MG TAB TAKE ONE TABLET BY MOUTH TWICE A DAY FOR DIABETES Apr 11, 2023 180 Apr 11, 2024 [id number] E Feb 19, 2024 CHARLEE FISH [facility] ORAL 04/11/2024 [id number] FISHCHARLEE Bowers 2022 180 [facility] OMEPRAZOLE 20MG CAP,EC OMEPRAZO LE 20MG CAP,EC TAKE ONE CAPSULE BY MOUTH EVERY DAY ON AN EMPTY STOMACH, AT LEAST 30 MINUTES PRIOR TO A MEAL FOR GERD GERD Mar 22, 2023 90 Mar 22, 2024 [id number] December 22, 2023 CHARLEE FISH [facility] ORAL 03/22/2024 [id number] CHARLEE FISH 2022 90 [facility] SEMAGLUTIDE 1MG/0.75ML INJ,SOLN,PE N,3ML SEMAGLUT RACHEL 1MG/0.75 ML INJ,SOLN ,PEN,3ML Active INJECT 1MG UNDER THE SKIN EVERY WEEK FOR DIABETES FOR DIABETES Nov 07, 2023 1 Nov 07, 2024 [id number] A Apr 14, 2024 NAIDL,TO DD [facility] SUBCUT ANEOUS ACTIVE 11/07/2024 [id number] NAIDL,TOD D 2023 1 [facility] SEMAGLUTIDE 1MG/0.75ML INJ,SOLN,PE N,3ML SEMAGLUT RACHEL 1MG/0.75 ML INJ,SOLN ,PEN,3ML Disconti nued INJECT 1MG UNDER THE SKIN EVERY WEEK FOR DIABETES FOR DIABETES Nov 07, 2022 1 Nov 08, 2023 [id number] Nov 06, 2023 NAIDL,TO DD [facility] SUBCUT ANEOUS DISCONT INUED 11/08/2023 [id number] NAIDL,TOD D 2022 1 [facility] TAMSULOSIN HCL 0.4MG CAP TAMSULOS IN HCL 0.4MG CAP Disconti nued TAKE ONE CAPSULE BY MOUTH EVERY EVENING PROSTATE Apr 11, 2023 90 Apr 11, 2024 [id number] A Apr 21, 2023 CHARLEE FISH [facility] ORAL DISCONT INUED 04/11/2024 [id number] ABE CHARLEE A 2022 90 [facility] TAMSULOSIN HCL 0.4MG CAP TAMSULOS IN HCL 0.4MG CAP Disconti nued TAKE ONE CAPSULE BY MOUTH EVERY EVENING PROSTATE Aug 03, 2022 90 Aug 04, 2023 [id number] Jan 21, 2023 CHARLEE FISH [facility] ORAL DISCONT INUED 08/04/2023 [id number] ABE CHARLEE A 2022 90 [facility] TAMSULOSIN HCL 0.4MG CAP TAMSULOS IN HCL 0.4MG CAP TAKE ONE CAPSULE BY MOUTH EVERY EVENING PROSTATE Apr 13, 2023 30 Apr 13, 2024 [id number] Mar 14, 2024 CHARLEE FISH [facility] ORAL 04/13/2024 [id number] FISH, CHARLEE A 2022 30 [facility] TURMERIC CAP/TAB TURMERIC CAP/TAB Non-VA TAKE 500 MG BY MOUTH TWICE A DAY Apr 22, 2019 Non-VA Document ed by: MATTY WOO Document ed at: [facility] ORAL ACTIVE MATTY POWERS 2018 [facility] Allergies, Adverse Reactions, Alerts Combined list of allergies from Department of Defense and Veterans Affairs facilities. It does not include entries that were removed or entered in error. Substance Category Reaction Severity Reaction type Status Date Reported Comments Source VANCOMYCIN Propensity to adverse reactions to drug (finding) [place] active 8 [facility] Immunizations Combined list of available immunizations from the Department of [facility] and Veterans Affairs facilities. Immunization Series Date Given Administered By Site Reaction Lot Number CVX Code Drug Habilitation Assistant Status Comments Source ZOSTER RECOMBINANT 2 2019 187 complet [facility] INFLUENZA, INJECTABLE, QUADRIVALENT, PRESERVATIVE FREE 2019 150 complet [facility] ZOSTER RECOMBINANT 1 2019 187 complet [facility] INFLUENZA, HIGH-DOSE, QUADRIVALENT 2019 197 complet [facility] INFLUENZA, SEASONAL, INJECTABLE, PRESERVATIVE FREE 2017 140 complet [facility] INFLUENZA, INJECTABLE, QUADRIVALENT, PRESERVATIVE FREE 2017 150 complet [facility] INFLUENZA, INJECTABLE, QUADRIVALENT, PRESERVATIVE FREE 2015 150 complet [facility] TDAP 2015 115 complet ed [place] [facility] PNEUMOCOCCAL CONJUGATE PCV 13 2015 133 complet [facility] TD (ADULT), 5 LF TETANUS TOXOID, PRESERVATIVE FREE, ADSORBED 2015 113 complet [facility] INFLUENZA, INJECTABLE, QUADRIVALENT, PRESERVATIVE FREE 2013 150 complet [facility] PNEUMOCOCCAL POLYSACCHARID E PPV23 2010 33 complet [facility] INFLUENZA, UNSPECIFIED FORMULATION 2006 88 complet [facility] PNEUMOCOCCAL, UNSPECIFIED FORMULATION 2006 109 complet [facility] TD(ADULT) UNSPECIFIED FORMULATION 2006 NONE 139 complet [facility] TETANUS TOXOID, UNSPECIFIED FORMULATION 2006 NONE 112 [facility] Results Combined list of recent chemistry, [...] Aug 21, 2022 03:48 PM Reporting Lab: [facility] [phone] Performing Lab: [facility] [address] [place] [facility] BASIC METABOLIC PANEL+MG CREATININE [MASS/VOLUM E] IN SERUM OR PLASMA 1.2 mg/dL 0.7 - 1.2 03/22 Specimen Type: PLASMA No comment entered. Ordering Provider: ME LEEROY FISH Report Released Date/Time: Aug 21, 2022 03:48 PM Reporting Lab: [facility] [address] Performing Lab: [facility] [address] [place] [facility] BASIC METABOLIC PANEL+MG UREA NITROGEN [MASS/VOLUM E] IN SERUM OR PLASMA 15 mg/dL 8 - 03/22 Specimen Type: PLASMA No comment entered. Ordering Provider: ME LEEROY FISH Report Released Date/Time: Aug 21, 2022 03:48 PM Reporting Lab: [facility] [address] Performing Lab: [facility] [address] [place] [facility] BASIC METABOLIC PANEL+MG GLUCOSE [MASS/VOLUM E] IN SERUM OR PLASMA 145 mg/dL 70 - 100 03/22 H Specimen Type: PLASMA No comment entered. Ordering Provider: ME LEEROY FISH Report Released Date/Time: Aug 21, 2022 03:48 PM Reporting Lab: [facility] [address] Performing Lab: [facility] [address] [place] [facility] BASIC METABOLIC PANEL+MG SODIUM [MOLES/VOLU ME] IN SERUM OR PLASMA 138 mmol/L 136 - 145 03/22 Specimen Type: PLASMA No comment entered. Ordering Provider: ME LEEROY FISH Report Released Date/Time: Aug 21, 2022 03:48 PM Reporting Lab: [facility] [address] Performing Lab: [facility] [address] [place] [facility] BASIC METABOLIC PANEL+MG POTASSIUM [MOLES/VOLU ME] IN SERUM OR PLASMA 4.5 mmol/L 3.5 - 5.1 03/22 Specimen Type: PLASMA No comment entered. Ordering Provider: ME LEEROY FISH Report Released Date/Time: Aug 21, 2022 03:48 PM Reporting Lab: [facility] [address] Performing Lab: [facility] [address] [place] [facility] BASIC METABOLIC PANEL+MG CHLORIDE [MOLES/VOLU ME] IN SERUM OR PLASMA 101 mmol/L 98 - 107 03/22 Specimen Type: PLASMA No comment entered. Ordering Provider: ME LEEROY FISH Report Released Date/Time: Aug 21, 2022 03:48 PM Reporting Lab: [facility] [address] Performing Lab: [facility] [address] [place] [facility] BASIC METABOLIC PANEL+MG CARBON DIOXIDE, TOTAL [MOLES/VOLU ME] IN SERUM OR PLASMA 27 mmol/L 22 - 29 03/22 Specimen Type: PLASMA No comment entered. Ordering Provider: ME LEEROY FISH Report Released Date/Time: Aug 21, 2022 03:48 PM Reporting Lab: [facility] [phone] Performing Lab: [facility] [address] [place] [facility] BASIC METABOLIC PANEL+MG CALCIUM [MASS/VOLUM E] IN SERUM OR PLASMA 10.0 mg/dL 8.4 - 10.2 03/22 Specimen Type: PLASMA No comment entered. Ordering Provider: ME LEEROY FISH Report Released Date/Time: Aug 21, 2022 03:48 PM Reporting Lab: [facility] [address] Performing Lab: [facility] [address] [place] [facility] BASIC METABOLIC PANEL+MG MAGNESIUM [MASS/VOLUM E] IN SERUM OR PLASMA 1.9 mg/dL 1.6 - 2.6 03/22 Specimen Type: PLASMA No comment entered. Ordering Provider: ME LEEROY FISH Report Released Date/Time: Aug 21, 2022 03:48 PM Reporting Lab: [facility] [address] Performing Lab: [facility] [address] [place] [facility] BASIC METABOLIC PANEL+MG ANION GAP IN SERUM OR PLASMA 10 mmol/L 5 - 15 03/22 Specimen Type: PLASMA No comment entered. Ordering Provider: ME LEEROY FISH Report Released Date/Time: Aug 21, 2022 03:48 PM Reporting Lab: [facility] [address] Performing Lab: [facility] [address] [place] [facility] BASIC METABOLIC PANEL+MG GLOMERULAR FILTRATION RATE/1.73 SQ M.PREDICTED [VOLUME RATE/AREA] IN SERUM, PLASMA OR BLOOD BY CREATININE- BASED FORMULA (CKD-EPI 2020) 63 60 03/22 Specimen Type: PLASMA No comment entered. Ordering Provider: ME LEEROY FISH Report Released Date/Time: Aug 21, 2022 03:48 PM Reporting Lab: [facility] [address] Performing Lab: [facility] [address] [place] [facility] [...] December 22, 2021 03:46 PM Reporting Lab: [facility] [address] Performing Lab: [facility] [address] [place] [facility] BASIC METABOLIC PANEL+MG CREATININE [MASS/VOLUM E] IN SERUM OR PLASMA 0.9 mg/dL 0.7 - 1.2 08/18 Specimen Type: PLASMA No comment entered. Ordering Provider: ME LEEROY FISH Report Released Date/Time: December 22, 2021 03:46 PM Reporting Lab: [facility] [address] Performing Lab: [facility] [address] [place] [facility] BASIC METABOLIC PANEL+MG UREA NITROGEN [MASS/VOLUM E] IN SERUM OR PLASMA 12 mg/dL 8 - 26 08/18 Specimen Type: PLASMA No comment entered. Ordering Provider: ME LEEROY FISH Report Released Date/Time: December 22, 2021 03:46 PM Reporting Lab: [facility] [address] Performing Lab: [facility] [address] [place] [facility] BASIC METABOLIC PANEL+MG GLUCOSE [MASS/VOLUM E] IN SERUM OR PLASMA 184 mg/dL 70 - 100 08/18 H Specimen Type: PLASMA No comment entered. Ordering Provider: ME LEEROY FISH Report Released Date/Time: December 22, 2021 03:46 PM Reporting Lab: [facility] [address] Performing Lab: [facility] [address] [place] [facility] BASIC METABOLIC PANEL+MG SODIUM [MOLES/VOLU ME] IN SERUM OR PLASMA 137 mmol/L 136 - 145 08/18 Specimen Type: PLASMA No comment entered. Ordering Provider: ME LEEROY FISH Report Released Date/Time: December 22, 2021 03:46 PM Reporting Lab: [facility] [address] Performing Lab: [facility] [address] [place] [facility] BASIC METABOLIC PANEL+MG POTASSIUM [MOLES/VOLU ME] IN SERUM OR PLASMA 3.9 mmol/L 3.5 - 5.1 08/18 Specimen Type: PLASMA No comment entered. Ordering Provider: ME LEEROY FISH Report Released Date/Time: December 22, 2021 03:46 PM Reporting Lab: [facility] [address] Performing Lab: [facility] [address] [place] [facility] BASIC METABOLIC PANEL+MG CHLORIDE [MOLES/VOLU ME] IN SERUM OR PLASMA 102 mmol/L 98 - 107 08/18 Specimen Type: PLASMA No comment entered. Ordering Provider: ME LEEROY FISH Report Released Date/Time: December 22, 2021 03:46 PM Reporting Lab: [facility] [address] Performing Lab: [facility] [address] [place] [facility] BASIC METABOLIC PANEL+MG CARBON DIOXIDE, TOTAL [MOLES/VOLU ME] IN SERUM OR PLASMA 26 mmol/L 22 - 29 08/18 Specimen Type: PLASMA No comment entered. Ordering Provider: ME LEEROY FISH Report Released Date/Time: December 22, 2021 03:46 PM Reporting Lab: [facility] [address] Performing Lab: [facility] [address] [place] [facility] BASIC METABOLIC PANEL+MG CALCIUM [MASS/VOLUM E] IN SERUM OR PLASMA 9.4 mg/dL 8.4 - 10.2 08/18 Specimen Type: PLASMA No comment entered. Ordering Provider: ME LEEROY FISH Report Released Date/Time: December 22, 2021 03:46 PM Reporting Lab: [facility] [address] Performing Lab: [facility] [address] [place] [facility] BASIC METABOLIC PANEL+MG MAGNESIUM [MASS/VOLUM E] IN SERUM OR PLASMA 1.6 mg/dL 1.6 - 2.6 08/18 Specimen Type: PLASMA No comment entered. Ordering Provider: ME LEEROY FISH Report Released Date/Time: December 22, 2021 03:46 PM Reporting Lab: [facility] [address] Performing Lab: [facility] [address] [place] [facility] BASIC METABOLIC PANEL+MG ANION GAP IN SERUM OR PLASMA 9 mmol/L 5 - 15 01/19 /2023 Specimen Type: PLASMA No comment entered. Ordering Provider: ME LEEROY FISH Report Released Date/Time: December 22, 2021 03:46 PM Reporting Lab: [facility] [address] Performing Lab: [facility] [address] [facility] BASIC METABOLIC PANEL+MG GLOMERULAR FILTRATION RATE/1.73 SQ M.PREDICTED [VOLUME RATE/AREA] IN SERUM, PLASMA OR BLOOD BY CREATININE- BASED FORMULA (CKD-EPI) 89 60 08/18 Specimen Type: PLASMA No comment entered. Ordering Provider: ME LEERYO FISH Report Released Date/Time: December 22, 2021 03:46 PM Reporting Lab: [facility] [address] Performing Lab: [facility] [address] [facility] Encounters Combined list of: 1) 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 2) Encounters from the Department of Defense facilities going back up to 280 months. Location Location Details Encounter Type Encounter Number Reason For Visit Attending Provider ADM Date DC Date Status Disposition Source [facility] PRO PHONE CALL 21-30 MIN [id number] Diagnos is: ICD-10- CM E11.42 Type 2 diabete s mellitu s with diabeti c polyneu ropathy
NAIDL,KARI 11/07 [facility] HC PRO PHONE CALL 11-20 MIN [id number] Diagnos is: ICD-10- CM E11.42 Type 2 diabete s mellitu s with diabeti c polyneu ropathy
NAIDL,KARI 12/[address] [facility] Outpatient Encounter [id number] Diagnos is: ICD-10- CM Z77.29 Contact with and exposur e to other [facility]<br/ > JEANINEJESSICA TALBERT 12/27 [facility] Outpatient Encounter [id number] Diagnos is: ICD-10- CM Z77.29 Contact with and exposur e to other [facility]<br/ > JEANINEJESSICA Ortiz ILDE J 12/27 [facility] IS [facility] HC PRO PHONE CALL 11-20 MIN [id number] Diagnos is: ICD-10- CM E11.42 Type 2 diabete s mellitu s with diabeti c polyneu ropathy
NAIDL,KARI 01/[address] [facility] IS [facility] Outpatient Encounter [id number] 03/[address] [facility] IS [facility] HC PRO PHONE CALL 11-20 MIN [id number] Diagnos is: ICD-10- CM E11.42 Type 2 diabete s mellitu s with diabeti c polyneu ropathy
NAIDL,KARI 03/14 [facility] IS [facility] OFFICE O/P EST LOW 20-29 MIN [id number] Diagnos is: ICD-10- CM E11.621 Type 2 diabete s mellitu s with foot ulcer<b r/> Rhiannon FISH 03/22 [facility] IS [facility] HC PRO PHONE CALL 21-30 MIN [id number] Diagnos is: ICD-10- CM E11.42 Type 2 diabete s mellitu s with diabeti c polyneu ropathy
NAIDL,KARI 04/[address] [facility] IS [facility] HC PRO PHONE CALL 21-30 MIN [id number] Diagnos is: ICD-10- CM E11.42 Type 2 diabete s mellitu s with diabeti c polyneu ropathy
NAIDL,KARI 07/[address] [facility] IS [facility] MTMS BY PHARM ADDL 15 MIN [id number] Diagnos is: ICD-10- CM E11.42 Type 2 diabete s mellitu s with diabeti c polyneu ropathy
NAIDL,KARI 08/29 [place] [facility] [place] [facility] BY PHARM EST 15 MIN [id number] [phone] Diagnos is: ICD-10- CM E11.42 Type 2 diabete s mellitu s with diabeti c polyneu ropathy
SOLEDAD ELLIS 10/10 [place] [facility] [facility] [place] [facility] Outpatient Encounter [phone] 10/16 [place] [facility] [place] [facility] MTMS BY PHARM EST 15 MIN [id number] [id number] Diagnos is: ICD-10- CM E11.621 Type 2 diabete s mellitu s with foot ulcer<b r/> NAIDL,KARI 11/06 [place] [facility] [place] [facility] MTMS BY PHARM ADDL 15 MIN [id number] [phone] Diagnos is: ICD-10- CM E11.42 Type 2 diabete s mellitu s with diabeti c polyneu ropathy
NAIDL,KARI 11/22 [place] [facility] [place] [facility] MTMS BY PHARM ADDL 15 MIN [id number] [phone] Diagnos is: ICD-10- CM E11.42 Type 2 diabete s mellitu s with diabeti c polyneu ropathy
NAIDL,KARI 01/17 [place] [facility] [place] [facility] Outpatient Encounter [phone] Diagnos is: ICD-10- CM E11.42 Type 2 diabete s mellitu s with diabeti c polyneu ropathy
MILAGRO TONEY 01/18 [place] [facility] [facility] [place] [facility] [facility] OL DIG ASSMT&MGMT 5-10 [id number] Diagnos is: ICD-10- CM E11.42 Type 2 diabete s mellitu s with diabeti c polyneu ropathy
MOE CHOWDHURY R 01/18 [place] [facility] [place] [facility] MTMS BY PHARM EST 15 MIN [id number] Diagnos is: ICD-10- CM E11.42 Type 2 diabete s mellitu s with diabeti c polyneu ropathy
NAIDL,KARI 02/[address] [facility] Outpatient Encounter [id number] RORY CAPPS 02/[address] [facility] [place] [facility] Outpatient Encounter [id number] 03/[address] [facility] QNHP OL DIG ASSMT&MGMT 11-20 [id number] Diagnos is: ICD-10- CM E11.42 Type 2 diabete s mellitu s with diabeti c polyneu ropathy
NAIDL,KARI 03/[address] [facility] Outpatient Encounter [id number] 04/[address] [facility] Social History Combined list of available smoking, tobacco, and other social history from Department of Defense and Veterans Affairs facilities. Social History Type Response Date Comment Sourc e Tobacco smoking status NHIS DC-TOBACCO QUIT 15 YRS OR MORE 08/18/2022 [facility] History of tobacco use DC-TOBACCO FORMER USER 08/18/2022 [facility] History of tobacco use DC-TOBACCO FORMER USER 05/03/2021 [facility] History of tobacco use DC-TOBACCO FORMER USER 04/21/2020 [facility] History of tobacco use FORMER TOBACCO US E >1Y <7Y 04/03/2018 [facility] History of tobacco use CURRENT TOBACCO USER 03/09/2007 [facility] Plan of Care List of future care activities from Department of [facility] Affairs facilities. Additional future care activities may be listed in the Assessment and Plan section. Date/Time Care Activity Care Activity Detail Facili ty 04/17/2024 AMBULATORY - NONE AMBULATORY - NONE [facility] 05/17/2024 AMBULATORY - NONE AMBULATORY - NONE [facility] 05/17/2024 AMBULATORY - MEDICINE AMBULATORY - MEDICI NE [facility] 04/17/2024 Laboratory - Chemistry Order BAS IC METABOLIC PANEL+MG PLASMA SP ONCE [facility] 04/17/2024 Laboratory - Chemistry Order HEM OGLOBIN A1C BLOOD SP ONCE [facility] 04/17/2024 Laboratory - Chemistry Order CBC and DIFF BLOOD SP ONCE [facility] Advance Directives List of completed, amended, or rescinded Advance Directives on record at Department of [facility] Affairs facilities. An actual copy of the Directive is not included. Date Advance Directive Provider Source 06/22/2021 ADVANCE DIRECTIVE DISCUSSION ALLYSON GRAF [facility] 06/22/2021 ADVANCE DIRECTIVE ALLYSON GRAF [facility] 03/09/2007 ADVANCE DIRECTIVE SOLEDAD WOLFF [facility]
--- OUTSIDE RECORDS SUMMARY | 2024-04-16 11:17 | XMS_ITS | Clinical Summary ---
Author Organization [place] Address [address] [place] [address] Care Team Providers Care Disk Sander Name Role Phone Post, Dave Wakefield Primary Care Provider [phone] Medications Medication Sig Dispensed Refills Start Date [...] Comments Blood Pressure 148/85 06/26/2018 5:58 PM CANDY PULLER Pulse 90 06/26/2018 5:58 PM CANDY PULLER Temperature 36.6 ??C (97.8 ??F) 06/26/2018 5:58 PM CS T Respiratory Rate 18 06/26/2018 5:58 PM CANDY PULLER Oxygen Saturation 95% 06/26/2018 7:00 PM CANDY PULLER Inhaled Oxygen Concentration - - Weight 112 kg (247 lb) 06/26/2018 5:58 PM CANDY PULLER Height 180.3 cm (5' 11) 06/26/2018 5:58 PM CANDY PULLER Body Mass Index 34.45 06/26/2018 5:58 PM CANDY PULLER Plan of Treatment Not on file Care Teams Disk Sander Relationship Specialty Start Date End Date Post, Dave Wakefield PCP - General Internal Medicine 06/26/18
--- OUTSIDE RECORDS SUMMARY | 2024-04-16 11:17 | XMS_ITS | Clinical Summary ---
Author Organization [facility] Address [place], [place] [address] Care Team Providers Care Sales Agent Fire Insurance Name Role Phone Post, Dave Velazquez MD Primary Care Provider [phone] Moshe Enciso MD Unavailable Arie Justin MD Unavailable [phone] [facility], Met Unavailable Murali Hoover DPM Unavailable [phone] Allergies No known active allergies Medications [...] diabetes, hypertension and/or CHF. Please look for [facility] Care Goal Contract in Chart Review/ Letters and support this effort. Please direct questions to Care Guide Pamella Brennan Phone number [phone]. Alcohol abuse 06/02/2010 03/26/2019 Overview (06/02/2010): Sober [...] 36.7 ??C (98 ??F) 06/29/2022 8:43 AM PHARMACY DISTRICT MANAGER Respiratory Rate 18 06/29/2022 8:43 AM PHARMACY DISTRICT MANAGER Oxygen Saturation 96% 07/21/2023 1:34 PM PHARMACY DISTRICT MANAGER Inhaled Oxygen Concentration - - Weight 107 kg (236 lb) 11/03/2023 11:13 AM CDT w ith shoes Height 180.3 cm (5' 10.98) 07/21/2023 1:[address] Body Mass Index 32.93 07/21/2023 1:34 PM PHARMACY DISTRICT MANAGER Plan of Treatment Health Maintenance Due [...] 07/16/2020, 04/21/2020 Medical Devices Implanted Type Area Electronic Plotting System Operator Device Identifier Shelf Expiration Date Model / Serial / Lot [id number] - [id number] Implanted:Qty: 1 on 09/20/2021 at [facility] Right: Foot [employer] AR-8725-4 4H / / Description:COMPRESSION FT S CREWS CANNULATED, 2.5 MICRO 44MM LOAD 4 7 [id number] Kristina-1530p - [id number] Implanted:Qty: 1 on 09/20/2021 at [facility] Right: Foot [employer] 03/30/2025 AR-1530P- CP / / [id number] Description:FOREFOOT INTERNA L BRACE IMPLANT SYSTEM, PEEK Screw [id number] Bio Compositetenodesis Disp Printing Estimator Pk - [id number] Implanted:Qty: 1 on 09/20/2021 at [facility] Right: Foot [employer] 08/30/2022 AR-1547CD S / / [id number] Ancr Sut 1.3mm Dx Fibertak Suturetape 2 Ndl 26.2mm 08/01 Cir - [id number] Implanted:Qty: 1 on 09/20/2021 at [facility] Right: Foot [employer] 06/29/2026 AR-8990ST / / [id number] Explanted Type Area Electronic Plotting System Operator Device Identifier Shelf Expiration Date Model / Serial / Lot Wire Kirs .[id number]/Pk Depuy/Héctor - [id number] Explanted:Qty: 1 on 09/20/2021 at [facility] Right: Foot [employer] / / Description:LOAD 4 8 [id number] [facility]8737-40 - [id number] Explanted:Qty: 1 on 09/20/2021 at [facility] Right: Foot [employer] AR-8737-40 / / Description:2.5 MICRO COMPRE SSION FT DRILLS AND DISPOSABLES, GUIDEWIRE W TROCAR TIP, THREADED, 0.34 IN (.86MM) LOAD 4 7 [id number] Procedures Procedure Name Priority Date/Time Associated Diagnosis Comments CT CHEST PE STUDY Routine 05/10/2022 7:5 0 PM CDT OCCULT BLOOD IFOBT STOOL Routine 07/03/2013 7:00 PM PHARMACY DISTRICT MANAGER Screening for colon cancer from Last [...] Occult Blood Stool (IFOBT) (07/03/2013 7:00 PM PHARMACY DISTRICT MANAGER) STOOL BLOOD ,IFOBT Negative Negative, Invalid 07/04/2013 3:03 PM PHARMACY DISTRICT MANAGER [facility] Stool specimen (specimen) STOOL SPECIMEN / Unknown Non-Blood / Unknown 07/03/2013 7:00 PM PHARMACY DISTRICT MANAGER 07/04/2013 2:39 PM PHARMACY DISTRICT MANAGER Dave Garrett MD LABORATORY [facility] [address] [place] [address] from Last 3 Months or Most Recently Relevant to Health Maintenance Advance Directives Documents on File Type Date Recorded Patient Spouting Installer Expl anation Healthcare Directive 05/21/2021 3:50 PM [...] Code Status Discussion: Reviewed Preferences Care Teams Sales Agent Fire Insurance Relationship Specialty Start Date End Date Post, Dave Velazquez MD PCP - General 06/02/10 Moshe Enciso MD [address] [facility] [address] [place], [place] [address] Endocrinology Endocrinology 01/04/18 [place] [address] [facility] [address] [place] [address] Surgery - Ophthalmology 03/22/18 [facility], [facility] [address] [facility] [address] [place] [address] 06/08/21 Murali Hoover DPM [address] [place] [id number] Surgery - Podiatric 01/03/23
--- OUTSIDE RECORDS SUMMARY | 2024-04-16 11:17 | XMS_ITS | Referral Summary ---
Author Organization [place] Address [address] [place] [address] Care Team Providers Care Automatic Outsole Cutter Name Role Phone Post, Dave Wakefield Primary Care Provider [phone] Medications Medication Sig Dispensed Refills Start Date [...] Comments Blood Pressure 148/85 06/26/2018 5:58 PM EXTRACTOR OPERATOR SOLVENT PROCESS Pulse 90 06/26/2018 5:58 PM EXTRACTOR OPERATOR SOLVENT PROCESS Temperature 36.6 ??C (97.8 ??F) 06/26/2018 5:58 PM CS T Respiratory Rate 18 06/26/2018 5:58 PM EXTRACTOR OPERATOR SOLVENT PROCESS Oxygen Saturation 95% 06/26/2018 7:00 PM EXTRACTOR OPERATOR SOLVENT PROCESS Inhaled Oxygen Concentration - - Weight 112 kg (247 lb) 06/26/2018 5:58 PM EXTRACTOR OPERATOR SOLVENT PROCESS Height 180.3 cm (5' 11) 06/26/2018 5:58 PM EXTRACTOR OPERATOR SOLVENT PROCESS Body Mass Index 34.45 06/26/2018 5:58 PM EXTRACTOR OPERATOR SOLVENT PROCESS Plan of Treatment Not on file Care Teams Automatic Outsole Cutter Relationship Specialty Start Date End Date Post, Dave Wakefield PCP - General Internal Medicine 06/26/18
--- OUTSIDE RECORDS SUMMARY | 2024-04-16 11:18 | XMS_ITS | Encounter Summary ---
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 [facility] [place] Address [address] [place] [address] Care Team Providers Care Floor Specialist Name Role Phone CHARLEE FISH Primary Care [...] MEDIC ARE SUPPL EMENT Jul 31, 2018 [id number] [phone] RENKANE LUGO ALEX PATIENT [place] MEDICARE SUPPLEMEN [place]OT MEDIC ARE SUPPL EMENT Jul 31, 2018 [id number] [phone] RENAUX,JU ALEX PATIENT [place] [facility] (WNR) MEDICARE ADVANTAGE [facility] (WNR) Jul 31, 2017 [id number] [phone] RENAUX,JU ALEX PATIENT [place] MEDICARE SUPPLEMEN SCOT MEDIC ARE SUPPL EMENT Jul 31, 2018 [id number] RENAUX,JU ALEX PATIENT [place] MED[place] SUPPLEMEN SCOT MEDIC ARE SUPPL EMENT Jul 31, 2018 [id number] [phone] RENAUX,JU ALEX PATIENT MEDICARE (WNR) MEDICARE ([place]) PART A May 31, 2011 PART A [id number] [phone] KANE PÉREZ PATIENT MEDICARE ([place]NR) MEDICARE ([place]) PART B May 31, 2011 PART B [id number] [phone] KANE PÉREZ PATIENT Selected Encounter This section includes the information on record at [place] for the Encounter. Date/Time Encounter Type Encounter Description Reason Pro vider Source Apr 16, 2024 10:27 AM Outpatient Encounter TELEPHONE TRIAGE IHE Encounter Template Text not used by [place] Plan of Treatment: Future Appointments (+ 6 months) and Future Tests (+/- 45 days) The Plan of Treatment section includes future care activities for the patient from all [place] [facility]. This section includes future appointments and future orders which are active, pending or scheduled. Future Appointments This section includes appointments that were scheduled to occur 6 months from the date of the Encounter, up to a maximum of 20 appointments. The data comes from all [facility]. Appointment Date/Time Appointment Type Appointme nt Facility Name Apr 17, 2024 01:30 PM AMBULATORY - NONE [facility] May 17, 2024 02:00 PM AMBULATORY - NONE [facility] May 17, 2024 02:45 PM AMBULATORY - MEDICINE [facility] Active, Pending, and Scheduled Orders This section includes a listing of several types of active, pending, and scheduled orders, including clinic medications orders, diagnostic test orders, procedure orders and consult orders; where the start date of the order is 45 days before the date of the Encounter or 45 days after the date of theEncounter. The data comes from all [facility]. Test Date/Time Test Type Test Details Facility Name Apr 17, 2024 12:00 AM Laboratory - Chemi stry Order BASIC METABOLIC PANEL+MG PLASMA SP ONCE [facility] Apr 17, 2024 12:00 AM Laboratory - Chemi stry Order HEMOGLOBIN A1C BLOOD SP ONCE [facility] Apr 17, 2024 12:00 AM Laboratory - Chemi stry Order CBC & DIFF BLOOD SP ONCE [facility] Social [...] [facility] Apr 21, 2020 09:00 AM [place]-TOBACCO QUIT 15 YRS OR MORE [facility] [...] this document. The data comes from all [facility]. Date Advance Directives Provider Source Jun 22, 2021 ADVANCE DIRECTIVE DISCUSSION ALLYSON GRAF [facility] Jun 22, 2021 ADVANCE DIRECTIVE ALLYSON GRAF [facility] Mar 09, 2007 ADVANCE DIRECTIVE SOLEDAD WOLFF [facility] Encounter Notes: All associated encounter notes This section contains the clinical notes associated to the Encounter. Date/Time Encounter Note(s) Provider Source Apr 16, 2024 10:27 AM ADMINISTRATIVE NOT E: LOCAL TITLE: CCC: SCHEDULING ADMINISTRATION STANDARD TITLE: ADMINISTRATIVE NOTE DATE OF NOTE: APR 16, 2024@10:27 ENTRY DATE: APR 16, 2024@10:27:24 AUTHOR: NIRAV RODRIGUEZ EXP COSIGNER: URGENCY: STATUS: COMPLETED Primary Care Call Center Primary Care Provider Call. Please contact at the following number: [phone] Other: is inquiring if he needs lab work for annual appt on 05/17, requested a call back at the number above This note was created by a V23 [facility] Call Center ARABELLA/ROSHNI. Please do not alert this junior underwriter by adding as a signer for future communications. Alerts are not monitored by this user, please reach out to [facility] Leadership instead if indicated. /toby/ Nirav GARNER 23 [facility] WE[facility] Signed: 04/16/2024 10:28 Receipt Acknowledged By: 04/16/2024 10:55 /es/ DOROTHY YOO RN REGISTERED NURSE NIRAV RODRIGUEZ [facility]
--- OUTSIDE RECORDS SUMMARY | 2024-04-16 11:18 | XMS_ITS | Encounter Summary ---
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 Organization [facility] [place] Address [address] [place] [address] Care Team Providers Care Pants Busheler Name Role Phone CHARLEE FISH Primary Care [...] MEDIC ARE SUPPL EMENT Jul 31, 2018 [id number] RODNEYBRITTNEYKANE ALEX PATIENT [place] MED[place] SUPPLEMEN [place]OT MEDIC ARE SUPPL EMENT Jul 31, 2018 [id number] [phone] RENBRITTNEYKANE A[place]IENT [place] [facility] (WNR) MEDICARE ADVANTAGE [facility] (WNR) Jul 31, 2017 [id number] [phone] RENBRITTNEY,KANE ALEX PATIENT [place] MEDICARE SUPPLEMEN SCOT MEDIC ARE SUPPL EMENT Jul 31, 2018 [id number] [phone] RENBRITTNEY,KANE ALEX PAT[place] MED[place] SUPPLEMEN [place] MEDIC ARE SUPPL EMENT Jul 31, 2018 [id number] [phone] RENBRITTNEY,KANE ALEX PATIENT MEDICARE (WNR) MEDICARE ([place]) PART A May 31, 2011 PART A [id number] [phone] KANE PÉREZ PATIENT MEDICARE ([place]NR) MEDICARE ([place]) PART B May 31, 2011 PART B [id number] [phone] KANE PÉREZ PATIENT Selected Encounter This section includes the information on record at [place] for the Encounter. Date/Time Encounter Type Encounter Description Reason Pro vider Source IHE Encounter Template Text not used by [place] Advance Directives: All historical and current Section Date Range: From patient's date of to the date document was created. This section includes ALL of a patient's completed or amended [place] Advance and Rescinded Directives. The entries below indicate that a directive exists for the patient, but an actual copy is not included with this document. The data comes from all [place] facilities. Date Advance Directives Provider Source Jun 22, 2021 ADVANCE DIRECTIVE DISCUSSION ALLYSON GRAF [facility] Jun 22, 2021 ADVANCE DIRECTIVE ALLYSON GRAF [facility] Mar 09, 2007 ADVANCE DIRECTIVE SOLEDAD WOLFF [facility]
== END 2024-04-16 11:16 | disposition home or self-care (01) ==
LOC: WOUND 11:15
PROVIDERS: Visit Provider Nurse Practitioner Family
DX: E11.621 Type 2 diabetes mellitus with foot ulcer (principal); L97.512 Non-pressure chronic ulcer of other part of right foot with fat layer exposed; I89.0 Lymphedema, not elsewhere classified
CPT/HCPCS: 15275; Q4201

== ENCOUNTER 2024-04-23 09:39 | Outpatient (CLI) | payer MEDICARE, BC, SELFPAY ==
--- OUTSIDE RECORDS SUMMARY | 2024-04-23 09:41 | XMS_ITS | Clinical Summary ---
Author Organization [facility] Address [place], [place] [address] Care Team Providers Care Mri Technician Name Role Phone Post, Dave Velazquez MD Primary Care Provider [phone] Moshe Enciso MD Unavailable Arie Justin MD Unavailable [phone] [facility], Met Unavailable [phone] Murali Hoover DPM Unavailable [phone] Allergies No known active allergies Medications [...] diabetes, hypertension and/or CHF. Please look for [facility] Care Goal Contract in Chart Review/ Letters and support this effort. Please direct questions to Care Guide Pamella Brennan Phone number [phone]. Alcohol abuse 06/02/2010 03/26/2019 Overview (06/02/2010): Sober [...] 36.7 ??C (98 ??F) 06/29/2022 8:43 AM PIT SUPERVISOR Respiratory Rate 18 06/29/2022 8:43 AM PIT SUPERVISOR Oxygen Saturation 96% 07/21/2023 1:34 PM PIT SUPERVISOR Inhaled Oxygen Concentration - - Weight 107 kg (236 lb) 11/03/2023 11:13 AM CDT w ith shoes Height 180.3 cm (5' 10.98) 07/21/2023 1:[address] Body Mass Index 32.93 07/21/2023 1:34 PM PIT SUPERVISOR Plan of Treatment Health Maintenance Due Date Last Done Comments Hepatitis C screening for ag e 18-79 1964 Pneumococcal series for age 65+ (3 of 3 - PPSV23 or PCV20) 09/11/2016 09/11/2015, 11/03/2010, 04/19/2007 Depression screening for age 12+ 03/26/2020 03/26/20 19, 03/22/2018 Medicare Wellness for age 65+ 03/26/2020 03/26/2019, 03/22/2018 RSV vaccine for adults or (1 - 1-dose 75+ series) [address] (for lung CA) ag e 50-80 05/10/2023 05/10/2022, 04/30/2022, 06/04/2021 COVID-19 vaccine series (2023- season) 2024 Influenza for age 65+ 03/31/2024 04/21/2020 , 04/27/2018, 07/01/2016, Additional history exists BMI (ht and wt on same day) for age 18+ 07/21/2024 07/21/2023, 09/10/2021, 07/04/2019, Additional history exists Tetanus booster 09/20/2025 09/20/2015, 09/11/2015 Fecal testing non-DNA (FIT,FOBT,iFOBT) for age 45-75 Discontinued 07/03/2013 Tdap Completed 09/20/2015 Zoster (shingles) series for age 50+ Completed 07/16/2020, 04/21/2020 Medical Devices Implanted Type Area Arson And Bomb Investigator Device Identifier Shelf Expiration Date Model / Serial / Lot [id number] - [id number] Implanted:Qty: 1 on 09/20/2021 at [facility] Right: Foot [employer] AR-8725-4 4H / / Description:COMPRESSION FT S CREWS CANNULATED, 2.5 MICRO 44MM LOAD 4 7 [id number] Kristina-1530p - [id number] Implanted:Qty: 1 on 09/20/2021 at [facility] Right: Foot [employer] 03/30/2025 AR-1530P- CP / / [id number] Description:FOREFOOT INTERNA L BRACE IMPLANT SYSTEM, PEEK Screw [id number] Bio Compositetenodesis Disp Conflicts Analyst Pk - [id number] Implanted:Qty: 1 on 09/20/2021 at [facility] Right: Foot [employer] 08/30/2022 AR-1547CD S / / [id number] Ancr Sut 1.3mm Dx Fibertak Suturetape 2 Ndl 26.2mm 08/01 Cir - [id number] Implanted:Qty: 1 on 09/20/2021 at [facility] Right: Foot [employer] 06/29/2026 AR-8990ST / / [id number] Explanted Type Area Arson And Bomb Investigator Device Identifier Shelf Expiration Date Model / Serial / Lot Wire Kirs .[id number] Smooth6/Pk Depuy/Héctor - [id number] Explanted:Qty: 1 on 09/20/2021 at [facility] Right: Foot [employer] / / Description:LOAD 4 8 [id number] [facility]8737-40 - [id number] Explanted:Qty: 1 on 09/20/2021 at [facility] Right: Foot [employer] [place]-8737-40 / / Description:2.5 MICRO COMPRE SSION FT DRILLS AND DISPOSABLES, GUIDEWIRE W TROCAR TIP, THREADED, 0.34 IN (.86MM) LOAD 4 7 [id number] Procedures Procedure Name Priority Date/Time Associated Diagnosis Comments CT CHEST PE STUDY Routine 05/10/2022 7:5 0 PM CDT OCCULT BLOOD IFOBT STOOL Routine 07/03/2013 7:00 PM PIT SUPERVISOR Screening for colon cancer from Last 3 [...] Occult Blood Stool (IFOBT) (07/03/2013 7:00 PM PIT SUPERVISOR) STOOL BLOOD ,IFOBT Negative Negative, Invalid 07/04/2013 3:03 PM PIT SUPERVISOR [facility] Stool specimen (specimen) STOOL SPECIMEN / Unknown Non-Blood / Unknown 07/03/2013 7:00 PM PIT SUPERVISOR 07/04/2013 2:39 PM PIT SUPERVISOR Dave Garrett MD LABORATORY Performing Organization Address City/State/[facility] Co de Phone Number [facility] [address] [place], [place] [id number] from Last 3 Months or Most Recently Relevant to Health Maintenance Advance Directives Documents on File Type Date Recorded Patient Primer Expeditor And Drier Expl anation Healthcare Directive 05/21/2021 3:50 PM [...] Code Status Discussion: Reviewed Preferences Care Teams Mri Technician Relationship Specialty Start Date End Date Post, Dave Velazquez MD PCP - General 06/02/10 Moshe Enciso MD [address] [facility] [address] [place], [place] [address] Endocrinology Endocrinology 01/04/18 [place] [address] [facility] [address] [place] [address] Surgery - Ophthalmology 03/22/18 [facility] [address] [facility] [address] [place] [address] 06/08/21 Murali Hoover DPM [address] [place], [place] [address] Surgery - Podiatric 01/03/23
--- OUTSIDE RECORDS SUMMARY | 2024-04-23 09:41 | XMS_ITS | Clinical Summary ---
Author Organization [facility] Address [address] [place] [address] Care Team Providers Care Whitewater Rafting Guide Name Role Phone Post, Dave Wakefield Primary Care Provider [phone] Medications Medication Sig Dispensed Refills Start Date [...] Comments Blood Pressure 148/85 06/26/2018 5:58 PM SUPERVISOR GARMENT MANUFACTURING Pulse 90 06/26/2018 5:58 PM SUPERVISOR GARMENT MANUFACTURING Temperature 36.6 ??C (97.8 ??F) 06/26/2018 5:58 PM CS T Respiratory Rate 18 06/26/2018 5:58 PM SUPERVISOR GARMENT MANUFACTURING Oxygen Saturation 95% 06/26/2018 7:00 PM SUPERVISOR GARMENT MANUFACTURING Inhaled Oxygen Concentration - - Weight 112 kg (247 lb) 06/26/2018 5:58 PM SUPERVISOR GARMENT MANUFACTURING Height 180.3 cm (5' 11) 06/26/2018 5:58 PM SUPERVISOR GARMENT MANUFACTURING Body Mass Index 34.45 06/26/2018 5:58 PM SUPERVISOR GARMENT MANUFACTURING Plan of Treatment Not on file Care Teams Whitewater Rafting Guide Relationship Specialty Start Date End Date Post, Dave Wakefield PCP - General Internal Medicine 06/26/18
--- OUTSIDE RECORDS SUMMARY | 2024-04-23 09:41 | XMS_ITS | Referral Summary ---
Author Organization [place] Address [address] [place] [address] Care Team Providers Care Application Development Specialist Name Role Phone Post, Dave Wakefield Primary Care Provider [phone] Medications Medication Sig Dispensed Refills Start Date [...] Comments Blood Pressure 148/85 06/26/2018 5:58 PM BIOMASS POWER PLANT SUPERINTENDENT Pulse 90 06/26/2018 5:58 PM BIOMASS POWER PLANT SUPERINTENDENT Temperature 36.6 ??C (97.8 ??F) 06/26/2018 5:58 PM CS T Respiratory Rate 18 06/26/2018 5:58 PM BIOMASS POWER PLANT SUPERINTENDENT Oxygen Saturation 95% 06/26/2018 7:00 PM BIOMASS POWER PLANT SUPERINTENDENT Inhaled Oxygen Concentration - - Weight 112 kg (247 lb) 06/26/2018 5:58 PM BIOMASS POWER PLANT SUPERINTENDENT Height 180.3 cm (5' 11) 06/26/2018 5:58 PM BIOMASS POWER PLANT SUPERINTENDENT Body Mass Index 34.45 06/26/2018 5:58 PM BIOMASS POWER PLANT SUPERINTENDENT Plan of Treatment Not on file Care Teams Application Development Specialist Relationship Specialty Start Date End Date Post, Dave Wakefield PCP - General Internal Medicine 06/26/18
--- OUTSIDE RECORDS SUMMARY | 2024-04-23 09:41 | XMS_ITS | Continuity of Care Document ---
Author Name [facility] Organization [facility] Care Team Providers Care Special Education Secretary Name Role Phone [facility] Unavailable Unavailable Problems Combined list of problems from Department of Defense and Veterans Affairs facilities. It does not include entries that were removed or entered in error. Problem Status Onset Date Problem Type Date of Resolution Comments Source Exposure to potentially hazardous substance ([facility] [id number]) Active 10/05/19 24 Condition Oct 05, 2023 Entered By: VIJI VIVAS [facility] Documentation Initiative [facility] Depressive Disorder NOS * (ICD-9-CM 311./300.4) Active Condition [facility] Diabetes mellitus (SNOMED CT 69720860) Active Condition [facility] Diabetic neuropathy Active Condition [facility] Foot Pain (ICD-9-CM 719.47) Active Condition Aug 26 10 Entered By: MALINA WORLEY Comment: left 5th metatarsal fracture [facility] History of amputation of lesser toe Active Condition [facility] Hyperlipidemia (SNOMED CT 00407059) Active Condition [facility] Hyperuricemia Active Condition [facility] Osteopenia Active Condition [facility] Other Iatrogenic Hypotension Active Condition [facility]) Personal History of Alcoholism (ICD-9-CM V11.3) Active Condition [facility] Tobacco user (SNOMED CT 309413346) Active Condition [facility] Diagnosis: ICD-10-CM E11.42 Type 2 diabetes mellitus with diabetic polyneuropathy Active Diagnosis [facility] Diana [facility] Diagnosis: ICD-10-CM E11.621 Type 2 diabetes mellitus with foot ulcer Active Diagnosis [facility] Diagnosis: ICD-10-CM Z77.29 Contact with and exposure to other hazardous substances Active Diagnosis [facility] Medications Combined list of [...] Aug 21, 2022 Non-[place] Document ed by: CAHRLEE FISH Document ed at: [facility] ORAL ACTIVE CHARLEE FISH 2022 [facility] ASPIRIN 81MG TAB,EC ASPIRIN 81MG TAB,EC Non-VA TAKE ONE TABLET BY MOUTH EVERY DAY Mar 13, 2007 Non-VA Document ed by: MARY CHOUDHARY Document ed at: [facility] ORAL ACTIVE JEFF CHOUDHARY A 2006 [facility] ATORVASTATI N CA 40MG TAB ATORVAST ATIN CA 40MG TAB Active TAKE ONE TABLET BY MOUTH EVERY DAY FOR CHOLESTE ROL Apr 17, 2024 90 Apr 18, 2025 [id number] B Apr 18, 2024 NAIDL,TO DD [facility] ORAL ACTIVE 04/18/2025 [id number] NAIDL,TOD D 2023 90 [facility] ATORVASTATI N CA 40MG TAB ATORVAST ATIN CA 40MG TAB Disconti nued TAKE ONE TABLET BY MOUTH EVERY DAY FOR CHOLESTE ROL Apr 11, 2023 90 Apr 11, 2024 [id number] December 17, 2023 CHARLEE FISH [facility] ORAL DISCONT INUED 04/11/2024 [id number] CHARLEE FISH 2022 90 [facility] ATORVASTATI N CA 40MG TAB ATORVAST ATIN CA 40MG TAB Disconti nued TAKE ONE TABLET BY MOUTH EVERY DAY FOR CHOLESTE ROL Jul 14, 2022 90 Jul 15, 2023 [id number] Mar 31, 2023 NAIDL,TO DD [facility] ORAL DISCONT INUED 07/15/2023 [id number] NAIDL,TOD D 2022 90 [facility] CHOLECALCIF QUINTIN TAB CHOLECAL CIFEROL TAB Non-VA TAKE 5000 UNITS BY MOUTH EVERY DAY Aug 21, 2022 Non-VA Document ed by: CHARLEE FISH Document ed at: [facility] ORAL ACTIVE CHARLEE FISH 2022 [facility] COENZYME Q10 CAP/TAB COENZYME Q10 CAP/TAB Non-VA TAKE 1 CAPSULE BY MOUTH EVERY DAY Aug 21, 2022 Non-VA Document ed by: CHARLEE FISH Document ed at: [facility] ORAL ACTIVE CHARLEE FISH 2022 [facility] CYANOCOBALA MIN 1000MCG TAB CYANOCOB ALAMIN 1000MCG TAB Non-VA TAKE ONE TABLET BY MOUTH EVERY DAY Mar 09, 2022 Non-VA Document ed by: MAUREEN BRITO DD Document ed at: [facility] ORAL ACTIVE DEAN BRITO 2021 [facility] DICLOFENAC NA 1% GEL,TOP DICLOFEN AC NA 1% GEL,TOP APPLY 4 GRAMS TOPICALL Y FOUR TIMES A DAY NEEDED FOR JOINT PAIN JOINT PAIN Mar 22, 2023 100 Mar 22, 2024 [id number] Mar 22, 2023 CHARLEE FISH [facility] TOPICA L 03/22/2024 [id number] CHARLEE FISH 2022 100 [facility] FINASTERIDE 5MG TAB FINASTER RACHEL 5MG TAB Active TAKE ONE TABLET BY MOUTH EVERY DAY FOR PROSTATE FOR PROSTATE Apr 17, 2024 90 Apr 18, 2025 [id number] B Apr 18, 2024 CHARLEE FISH [facility] ORAL ACTIVE 04/18/2025 [id number] CHARLEE FISH 2023 90 [facility] FINASTERIDE 5MG TAB FINASTER RACHEL 5MG TAB Disconti nued TAKE ONE TABLET BY MOUTH EVERY DAY FOR PROSTATE FOR PROSTATE Apr 11, 2023 90 Apr 11, 2024 [id number] A Jan 08, 2024 CHARLEE FISH [facility] ORAL DISCONT INUED 04/11/2024 [id number] CHARLEE FISH 2022 90 [facility] FINASTERIDE 5MG TAB FINASTER RACHEL 5MG TAB Disconti nued TAKE ONE TABLET BY MOUTH EVERY DAY FOR PROSTATE FOR PROSTATE Jul 12, 2022 90 Jul 13, 2023 [id number] Mar 31, 2023 CHARLEE FISH [facility] ORAL DISCONT INUED 07/13/2023 [id number] CHARLEE FISH 2021 90 [facility] FISH OIL 1000MG (500MG DHA/EPA) CAP,ORAL FISH OIL 1000MG (500MG DHA/EPA) CAP,ORAL Non-VA TAKE 1 CAPSULE BY MOUTH TWICE A DAY Mar 13, 2007 Non-VA Document ed by: MARY CHOUDHARY A Document ed at: [facility] ORAL ACTIVE JEFF CHOUDHARY ER A 2006 [facility] INSULIN,GLA RGINE-YFGN 100UNIT/ML INJ PEN,3ML INSULIN, GLARGINE -YFGN 100UNIT/ ML INJ PEN,3ML Active: Susp INJECT 24 UNITS UNDER THE SKIN EVERY EVENING FOR DIABETES FOR DIABETES Apr 16, 2024 5 Apr 17, 2025 [id number] A May 06, 2024 NAIDL,TO DD [facility] SUBCUT ANEOUS SUSPEND ED 04/17/2025 [id number] NAIDL,TOD D 2023 5 [facility] INSULIN,GLA RGINE-YFGN 100UNIT/ML INJ PEN,3ML INSULIN, GLARGINE -YFGN 100UNIT/ ML INJ PEN,3ML Disconti nued INJECT 24 UNITS UNDER THE SKIN EVERY EVENING FOR DIABETES FOR DIABETES Aug 29, 2023 5 Aug 29, 2024 [id number] Mar 14, 2024 NAIDL,TO DD [facility] SUBCUT ANEOUS DISCONT INUED 08/29/2024 [id number] NAIDL,TOD D 2023 5 [facility] INSULIN,GLA RGINE-YFGN 100UNIT/ML INJ PEN,3ML INSULIN, GLARGINE -YFGN 100UNIT/ ML INJ PEN,3ML Disconti nued INJECT 22 UNITS UNDER THE SKIN AT BEDTIME FOR DIABETES FOR DIABETES Jan 06, 2023 5 Jan 07, 2024 [id number] Jul 25, 2023 NAIDL,TO DD [facility] SUBCUT ANEOUS DISCONT INUED (EDIT) 01/07/2024 [id number] NAIDL,TOD D 2022 5 [facility] LIDOCAINE 4% CREAM,TOP LIDOCAIN E 4% CREAM,TO P APPLY MODERATE AMOUNT TOPICALL Y THREE TIMES A DAY FOR PAIN PAIN Mar 22, 2023 30 Mar 22, 2024 [id number] Mar 22, 2023 CHARLEE FISH [facility] TOPICA L 03/22/2024 [id number] CHARLEE FISH 2022 30 [facility] MAGNESIUM OXIDE 400MG TAB MAGNESIU M OXIDE 400MG TAB Non-VA TAKE ONE TABLET BY MOUTH EVERY DAY Aug 21, 2022 Non-VA Document ed by: CHARLEE FISH Document ed at: [facility] ORAL ACTIVE CHARLEE FISH 2022 [facility] MENTHOL/MET HYL SALICYLATE (10-15%) LOW CONC. CREAM,TOP MENTHOL/ METHYL SALICYLA TE (10-15%) LOW CONC. CREAM,TO P APPLY THIN LAYER TOPICALL Y THREE TIMES A DAY FOR MUSCLE PAIN MUSLCE PAIN Mar 22, 2023 90 Mar 22, 2024 [id number] Mar 22, 2023 CHARLEE FISH [facility] TOPICA L 03/22/2024 [id number] CHARLEE FISH 2022 90 [facility] METFORMIN HCL 1000MG TAB METFORMI N HCL 1000MG TAB Active: Susp TAKE ONE TABLET BY MOUTH TWICE A DAY FOR DIABETES Apr 17, 2024 180 Jul 16, 2024 [id number] May 09, 2024 NAIDL,TO DD [facility] ORAL SUSPEND ED 07/16/2024 [id number] NAIDL,TOD D 2023 180 [facility] METFORMIN HCL 1000MG TAB METFORMI N HCL 1000MG TAB Disconti nued TAKE ONE TABLET BY MOUTH TWICE A DAY FOR DIABETES Apr 11, 2023 180 Apr 11, 2024 [id number] E Feb 19, 2024 CHARLEE FISH [facility] ORAL DISCONT INUED 04/11/2024 [id number] CHARLEE FISH 2022 180 [facility] METFORMIN HCL 1000MG TAB METFORMI N HCL 1000MG TAB Disconti nued TAKE ONE TABLET BY MOUTH TWICE A DAY FOR DIABETES Jul 14, 2022 180 Jul 15, 2023 [id number] D Apr 06, 2023 NAIDL,TO DD [facility] ORAL DISCONT INUED 07/15/2023 [id number] NAIDL,TOD D 2022 180 [facility] OMEPRAZOLE 20MG CAP,EC OMEPRAZO LE 20MG CAP,EC TAKE ONE CAPSULE BY MOUTH EVERY DAY ON AN EMPTY STOMACH, AT LEAST 30 MINUTES PRIOR TO A MEAL FOR GERD GERD Mar 22, 2023 90 Mar 22, 2024 [id number] December 22, 2023 CHARLEE FISH [facility] ORAL 03/22/2024 [id number] CHARLEE FISH 2022 90 [facility] SEMAGLUTIDE 1MG/0.75ML INJ,SOLN,PE N,3ML SEMAGLUT RACHEL 1MG/0.75 ML INJ,SOLN ,PEN,3ML Active INJECT 1MG UNDER THE SKIN EVERY WEEK FOR DIABETES FOR DIABETES Nov 07, 2023 1 Nov 07, 2024 [id number] Apr 14, 2024 NAIDL,TO DD [facility] SUBCUT ANEOUS ACTIVE 11/07/2024 [id number] NAIDL,TOD D 2023 1 [facility] SEMAGLUTIDE 1MG/0.75ML INJ,SOLN,PE N,3ML SEMAGLUT RACHEL 1MG/0.75 ML INJ,SOLN ,PEN,3ML Disconti nued INJECT 1MG UNDER THE SKIN EVERY WEEK FOR DIABETES FOR DIABETES Nov 07, 2022 1 Nov 08, 2023 [id number] Nov 06, 2023 NAIDL,TO DD [facility] SUBCUT ANEOUS DISCONT INUED 11/08/2023 [id number] DARYLTOTwyla D 2022 1 [place] [facility] TAMSULOSIN HCL 0.4MG CAP TAMSULOS IN HCL 0.4MG CAP Active: Susp TAKE ONE CAPSULE BY MOUTH EVERY EVENING PROSTATE Apr 17, 2024 30 Apr 18, 2025 [id number] May 08, 2024 CHARLEE FISH [facility] ORAL SUSPEND ED 04/18/2025 [id number] CHARLEE FISH 2023 30 [place] [facility] TAMSULOSIN HCL 0.4MG CAP TAMSULOS IN HCL 0.4MG CAP Disconti nued TAKE ONE CAPSULE BY MOUTH EVERY EVENING PROSTATE Apr 13, 2023 30 Apr 13, 2024 [id number] Mar 14, 2024 CHARLEE FISH [facility] ORAL DISCONT INUED 04/13/2024 [id number] CHARLEE FISH 2022 30 [place] [facility] TAMSULOSIN HCL 0.4MG CAP TAMSULOS IN HCL 0.4MG CAP Disconti nued TAKE ONE CAPSULE BY MOUTH EVERY EVENING PROSTATE Apr 11, 2023 90 Apr 11, 2024 [id number] A Apr 21, 2023 CHARLEE FISH [facility] ORAL DISCONT INUED 04/11/2024 [id number] CHAR[facility]E FISH 2022 90 [facility] TAMSULOSIN HCL 0.4MG CAP TAMSULOS IN HCL 0.4MG CAP Disconti nued TAKE ONE CAPSULE BY MOUTH EVERY EVENING PROSTATE Aug 03, 2022 90 Aug 04, 2023 [id number] Jan 21, 2023 CHARLEE FISH [facility] ORAL DISCONT INUED 08/04/2023 [id number] CHARLEE FISH 2022 90 [facility] TURMERIC CAP/TAB TURMERIC CAP/TAB Non-VA TAKE 500 MG BY MOUTH TWICE A DAY Apr 22, 2019 Non-VA Document ed by: MATTY WOO Document ed at: [facility] ORAL ACTIVE MATTY POWERS 2018 [facility] Allergies, Adverse Reactions, Alerts Combined list of allergies from Department of Defense and Veterans Affairs facilities. It does not include entries that were removed or entered in error. Substance Category Reaction Severity Reaction type Status Date Reported Comments Source VANCOMYCIN Propensity to adverse reactions to drug (finding) [place] active 8 [facility] Immunizations Combined list of available immunizations from the Department of Defense and Veterans Affairs facilities. Immunization Series Date Given Administered By Site Reaction Lot Number CVX Code Drug Analysis Evaluator Status Comments Source ZOSTER RECOMBINANT 2 2019 187 complet ed [facility] INFLUENZA, INJECTABLE, QUADRIVALENT, PRESERVATIVE FREE 2019 150 complet ed [facility] ZOSTER RECOMBINANT 1 2019 187 complet ed [facility] INFLUENZA, HIGH-DOSE, QUADRIVALENT 2019 197 complet ed [facility] INFLUENZA, SEASONAL, INJECTABLE, PRESERVATIVE FREE 2017 140 complet ed [facility] INFLUENZA, INJECTABLE, QUADRIVALENT, PRESERVATIVE FREE 2017 150 complet ed [facility] INFLUENZA, INJECTABLE, QUADRIVALENT, PRESERVATIVE FREE 2015 150 complet ed [facility] TDAP 2015 115 complet ed [facility] TA PNEUMOCOCCAL CONJUGATE PCV 13 2015 133 complet ed [facility] TD (ADULT), 5 LF TETANUS TOXOID, PRESERVATIVE FREE, ADSORBED 2015 113 complet ed [facility] INFLUENZA, INJECTABLE, QUADRIVALENT, PRESERVATIVE FREE 2013 150 complet ed [facility] PNEUMOCOCCAL POLYSACCHARID E PPV23 2010 33 complet ed [facility] INFLUENZA, UNSPECIFIED FORMULATION 2006 88 complet [facility] PNEUMOCOCCAL, UNSPECIFIED FORMULATION 2006 109 complet ed [facility] TD(ADULT) UNSPECIFIED FORMULATION 2006 NONE 139 complet ed [facility] TETANUS TOXOID, UNSPECIFIED FORMULATION 2006 NONE 112 complet ed [facility] Results Combined list of recent chemistry, [...] Aug 21, 2022 03:48 PM Reporting Lab: [facility] [address] Performing Lab: [facility] [address] [place] [facility] BASIC METABOLIC PANEL+MG CREATININE [MASS/VOLUM E] IN SERUM OR PLASMA 1.2 mg/dL 0.7 - 1.2 03/22 Specimen Type: PLASMA No comment entered. Ordering Provider: ME LEEROY FISH Report Released Date/Time: Aug 21, 2022 03:48 PM Reporting Lab: [facility] [address] Performing Lab: [facility] [address] [place] [facility] BASIC METABOLIC PANEL+MG UREA NITROGEN [MASS/VOLUM E] IN SERUM OR PLASMA 15 mg/dL 8 - 26 03/22 Specimen Type: PLASMA No comment entered. Ordering Provider: ME LEEROY FISH Report Released Date/Time: Aug 21, 2022 03:48 PM Reporting Lab: [facility] [address] Performing Lab: [facility] [address] [place] [facility] BASIC METABOLIC PANEL+MG GLUCOSE [MASS/VOLUM E] IN SERUM OR PLASMA 145 mg/dL 70 - 100 03/22 H Specimen Type: PLASMA No comment entered. Ordering Provider: ME LEEROY FISH Report Released Date/Time: Aug 21, 2022 03:48 PM Reporting Lab: [facility] [address] Performing Lab: [facility] [address] [place] [facility] BASIC METABOLIC PANEL+MG SODIUM [MOLES/VOLU ME] IN SERUM OR PLASMA 138 mmol/L 136 - 145 03/22 Specimen Type: PLASMA No comment entered. Ordering Provider: ME LEEROY FISH Report Released Date/Time: Aug 21, 2022 03:48 PM Reporting Lab: [facility] [address] Performing Lab: [facility] [address] [place] [facility] BASIC METABOLIC PANEL+MG POTASSIUM [MOLES/VOLU ME] IN SERUM OR PLASMA 4.5 mmol/L 3.5 - 5.1 03/22 Specimen Type: PLASMA No comment entered. Ordering Provider: ME LEEROY FISH Report Released Date/Time: Aug 21, 2022 03:48 PM Reporting Lab: [facility] [address] Performing Lab: [facility] [address] [place] [facility] BASIC METABOLIC PANEL+MG CHLORIDE [MOLES/VOLU ME] IN SERUM OR PLASMA 101 mmol/L 98 - 107 03/22 Specimen Type: PLASMA No comment entered. Ordering Provider: ME LEEROY FISH Report Released Date/Time: Aug 21, 2022 03:48 PM Reporting Lab: [facility] [address] Performing Lab: [facility] [address] [place] [facility] BASIC METABOLIC PANEL+MG CARBON DIOXIDE, TOTAL [MOLES/VOLU ME] IN SERUM OR PLASMA 27 mmol/L 22 - 29 03/22 Specimen Type: PLASMA No comment entered. Ordering Provider: ME LEEROY FISH Report Released Date/Time: Aug 21, 2022 03:48 PM Reporting Lab: [facility] [address] Performing Lab: [facility] [address] [place] [facility] BASIC METABOLIC PANEL+MG CALCIUM [MASS/VOLUM E] IN SERUM OR PLASMA 10.0 mg/dL 8.4 - 10.2 03/22 Specimen Type: PLASMA No comment entered. Ordering Provider: ME LEEROY FISH Report Released Date/Time: Aug 21, 2022 03:48 PM Reporting Lab: [facility] [address] Performing Lab: [facility] [address] [place] [facility] BASIC METABOLIC PANEL+MG MAGNESIUM [MASS/VOLUM E] IN SERUM OR PLASMA 1.9 mg/dL 1.6 - 2.6 03/22 Specimen Type: PLASMA No comment entered. Ordering Provider: ME LEEROY FISH Report Released Date/Time: Aug 21, 2022 03:48 PM Reporting Lab: [facility] [address] Performing Lab: [facility] [address] [place] [facility] BASIC METABOLIC PANEL+MG ANION GAP IN SERUM OR PLASMA 10 mmol/L 5 - 15 03/22 Specimen Type: PLASMA No comment entered. Ordering Provider: ME LEEROY FISH Report Released Date/Time: Aug 21, 2022 03:48 PM Reporting Lab: [facility] [address] Performing Lab: [facility] [address] [place] [facility] BASIC METABOLIC PANEL+MG GLOMERULAR FILTRATION RATE/1.73 SQ M.PREDICTED [VOLUME RATE/AREA] IN SERUM, PLASMA OR BLOOD BY CREATININE- BASED FORMULA (CKD-EPI 2020) 63 60 03/22 Specimen Type: PLASMA No comment entered. Ordering Provider: ME LEEROY FISH Report Released Date/Time: Aug 21, 2022 03:48 PM Reporting Lab: [facility] [address] Performing Lab: [facility] [address] [place] [facility] HEMOGLOBI N A1C HEMOGLOBIN [...] 03:46 PM Reporting Lab: [facility] [address] Performing Lab: [facility] [address] [place] [facility] BASIC METABOLIC PANEL+MG CREATININE [MASS/VOLUM E] IN SERUM OR PLASMA 0.9 mg/dL 0.7 - 1.2 08/18 Specimen Type: PLASMA No comment entered. Ordering Provider: ME LEEROY FISH Report Released Date/Time: December 22, 2021 03:46 PM Reporting Lab: [facility] [address] Performing Lab: [facility] [address] [place] [facility] BASIC METABOLIC PANEL+MG UREA NITROGEN [MASS/VOLUM E] IN SERUM OR PLASMA 12 mg/dL 8 - 26 08/18 Specimen Type: PLASMA No comment entered. Ordering Provider: ME LEEROY FISH Report Released Date/Time: December 22, 2021 03:46 PM Reporting Lab: [facility] [address] Performing Lab: [facility] [address] [place] [facility] BASIC METABOLIC PANEL+MG GLUCOSE [MASS/VOLUM E] IN SERUM OR PLASMA 184 mg/dL 70 - 100 08/18 H Specimen Type: PLASMA No comment entered. Ordering Provider: ME LEEROY FISH Report Released Date/Time: December 22, 2021 03:46 PM Reporting Lab: [facility] [address] Performing Lab: [facility] [address] [place] [facility] BASIC METABOLIC PANEL+MG SODIUM [MOLES/VOLU ME] IN SERUM OR PLASMA 137 mmol/L 136 - 145 08/18 Specimen Type: PLASMA No comment entered. Ordering Provider: ME LEEROY FISH Report Released Date/Time: December 22, 2021 03:46 PM Reporting Lab: [facility] [address] Performing Lab: [facility] [address] [place] [facility] BASIC METABOLIC PANEL+MG POTASSIUM [MOLES/VOLU ME] IN SERUM OR PLASMA 3.9 mmol/L 3.5 - 5.1 08/18 Specimen Type: PLASMA No comment entered. Ordering Provider: ME LEEROY FISH Report Released Date/Time: December 22, 2021 03:46 PM Reporting Lab: [facility] [address] Performing Lab: [facility] [address] [place] [facility] BASIC METABOLIC PANEL+MG CHLORIDE [MOLES/VOLU ME] IN SERUM OR PLASMA 102 mmol/L 98 - 107 08/18 Specimen Type: PLASMA No comment entered. Ordering Provider: ME LEEROY FISH Report Released Date/Time: December 22, 2021 03:46 PM Reporting Lab: [facility] [address] Performing Lab: [facility] [address] [place] [facility] BASIC METABOLIC PANEL+MG CARBON DIOXIDE, TOTAL [MOLES/VOLU ME] IN SERUM OR PLASMA 26 mmol/L 22 - 29 08/18 Specimen Type: PLASMA No comment entered. Ordering Provider: ME LEEROY FISH Report Released Date/Time: December 22, 2021 03:46 PM Reporting Lab: [facility] [address] Performing Lab: [facility] [address] [place] [facility] BASIC METABOLIC PANEL+MG CALCIUM [MASS/VOLUM E] IN SERUM OR PLASMA 9.4 mg/dL 8.4 - 10.2 08/18 Specimen Type: PLASMA No comment entered. Ordering Provider: ME LEEROY FISH Report Released Date/Time: December 22, 2021 03:46 PM Reporting Lab: [facility] [address] Performing Lab: [facility] [address] [place] [facility] BASIC METABOLIC PANEL+MG MAGNESIUM [MASS/VOLUM E] IN SERUM OR PLASMA 1.6 mg/dL 1.6 - 2.6 08/18 Specimen Type: PLASMA No comment entered. Ordering Provider: ME LEEROY FISH Report Released Date/Time: December 22, 2021 03:46 PM Reporting Lab: [facility] [address] Performing Lab: [facility] [address] [place] [facility] BASIC METABOLIC PANEL+MG ANION GAP IN SERUM OR PLASMA 9 mmol/L 5 - 15 08/18 Specimen Type: PLASMA No comment entered. Ordering Provider: ME LEEROY FISH Report Released Date/Time: December 22, 2021 03:46 PM Reporting Lab: [facility] [address] Performing Lab: [facility] [address] [facility] BASIC METABOLIC PANEL+MG GLOMERULAR FILTRATION RATE/1.73 SQ M.PREDICTED [VOLUME RATE/AREA] IN SERUM, PLASMA OR BLOOD BY CREATININE- BASED FORMULA (CKD-EPI) 89 60 08/18 Specimen Type: PLASMA No comment entered. Ordering Provider: ME LEEROY FISH Report Released Date/Time: December 22, 2021 03:46 PM Reporting Lab: [facility] [address] Performing Lab: [facility] [address] [facility] Encounters Combined list of: 1) 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 2) Encounters from the Department of Defense facilities going back up to 280 months. Location Location Details Encounter Type Encounter Number Reason For Visit Attending Provider ADM Date DC Date Status Disposition Source [facility] PRO PHONE CALL 21-30 MIN [id number] Diagnos is: ICD-10- CM E11.42 Type 2 diabete s mellitu s with diabeti c polyneu ropathy
NAIDL,KARI 11/07 [facility] PRO PHONE CALL 11-20 MIN [id number] Diagnos is: ICD-10- CM E11.42 Type 2 diabete s mellitu s with diabeti c polyneu ropathy
NAIDL,KARI 12/07 [facility] Outpatient Encounter [id number] Diagnos is: ICD-10- CM Z77.29 Contact with and exposur e to other [facility]<br/ > JEANINE,MATH ILDE J 12/27 [facility] Outpatient Encounter [id number] Diagnos is: ICD-10- CM Z77.29 Contact with and exposur e to other [facility]stan [facility]<br/ > JEANINEJESSICA 12/27 [facility] PRO PHONE CALL 11-20 MIN [id number] Diagnos is: ICD-10- CM E11.42 Type 2 diabete s mellitu s with diabeti c polyneu ropathy
NAIDL,KARI 01/06 [facility] Outpatient Encounter [id number] 03/10 [facility] PRO PHONE CALL 11-20 MIN [id number] Diagnos is: ICD-10- CM E11.42 Type 2 diabete s mellitu s with diabeti c polyneu ropathy
NAIDL,KARI 03/14 [facility] OFFICE O/P EST LOW 20-29 MIN [phone] Diagnos is: ICD-10- CM E11.621 Type 2 diabete s mellitu s with foot ulcer<b r/> Rhiannon FISHODY A 03/22 [facility] HC PRO PHONE CALL 21-30 MIN [id number] [phone] Diagnos is: ICD-10- CM E11.42 Type 2 diabete s mellitu s with diabeti c polyneu ropathy
NAIDL,KARI 04/18 [facility] HC PRO PHONE CALL 21-30 MIN [id number] [phone] Diagnos is: ICD-10- CM E11.42 Type 2 diabete s mellitu s with diabeti c polyneu ropathy
NAIDL,KARI 07/11 [facility] MTMS BY PHARM ADDL 15 MIN [id number] [phone] Diagnos is: ICD-10- CM E11.42 Type 2 diabete s mellitu s with diabeti c polyneu ropathy
NAIDL,KARI 08/29 [place] [facility] [facility] [place] [facility] MTMS BY PHARM EST 15 MIN [id number] Diagnos is: ICD-10- CM E11.42 Type 2 diabete s mellitu s with diabeti c polyneu ropathy
AWMARCIOSOLEDAD L 10/10 [place] [facility] [place] [facility] Outpatient Encounter [id number] 10/16 [place] [facility] [place] [facility] MTMS BY PHARM EST 15 MIN [id number] Diagnos is: ICD-10- CM E11.621 Type 2 diabete s mellitu s with foot ulcer<b r/> NAIDL,KARI 11/06 [place] [facility] [place] [facility] MTMS BY PHARM ADDL 15 MIN [id number] Diagnos is: ICD-10- CM E11.42 Type 2 diabete s mellitu s with diabeti c polyneu ropathy
NAIDL,KARI 11/22 [place] [facility] [place] [facility] MTMS BY PHARM ADDL 15 MIN [id number] Diagnos is: ICD-10- CM E11.42 Type 2 diabete s mellitu s with diabeti c polyneu ropathy
NAIDL,KARI 01/17 [place] [facility] [place] [facility] Outpatient Encounter [id number] Diagnos is: ICD-10- CM E11.42 Type 2 diabete s mellitu s with diabeti c polyneu ropathy
MILAGRO TONEY 01/18 [place] [facility] [place] [facility] QNHP OL DIG ASSMT&MGMT 5-10 [id number] Diagnos is: ICD-10- CM E11.42 Type 2 diabete s mellitu s with diabeti c polyneu ropathy
MOE CHOWDHURY SON R 01/18 [place] [facility] [place] [facility] MTMS BY PHARM EST 15 MIN [id number] Diagnos is: ICD-10- CM E11.42 Type 2 diabete s mellitu s with diabeti c polyneu ropathy
NAIDL,KARI 02/21 [place] [facility] [place] [facility] Outpatient Encounter [id number] RORY CAPPS 02/26 [place] [facility] [place] [facility] Outpatient Encounter [id number] 03/14 [place] [facility] [place] [facility] QNHP OL DIG ASSMT&MGMT 11-20 [id number] Diagnos is: ICD-10- CM E11.42 Type 2 diabete s mellitu s with diabeti c polyneu ropathy
NAIDL,KARI 03/27 [place] [facility] [place] [facility] Outpatient Encounter [id number] 04[facility]16 [facility] Social History Combined list of available smoking, tobacco, and other social history from Department of Defense and Veterans Affairs facilities. Social History Type Response Date Comment Sourc e Tobacco smoking status NHIS SD-TOBACCO QUIT 15 YRS OR MORE 08/18/2022 [facility] History of tobacco use SD-TOBACCO FORMER USER 08/18/2022 [facility] History of tobacco use SD-TOBACCO FORMER USER 05/03/2021 [facility] History of tobacco use SD-TOBACCO FORMER USER 04/21/2020 [facility] History of tobacco use FORMER TOBACCO US E >1Y <7Y 04/03/2018 [facility] History of tobacco use CURRENT TOBACCO USER 03/09/2007 [facility] Plan of Care List of future care activities from Department of Veterans Affairs facilities. Additional future care activities may be listed in the Assessment and Plan section. Date/Time Care Activity Care Activity Detail Facili ty 05/17/2024 AMBULATORY - NONE AMBULATORY - NONE [facility] 05/17/2024 AMBULATORY - MEDICINE AMBULATORY - MEDICI NE [facility] 04/17/2024 Laboratory - Chemistry Order BAS IC METABOLIC PANEL+MG PLASMA SP ONCE [facility] 04/17/2024 Laboratory - Chemistry Order HEM OGLOBIN A1C BLOOD SP ONCE [facility] 04/17/2024 Laboratory - Chemistry Order CBC and DIFF BLOOD SP ONCE [facility] Advance Directives List of completed, amended, or rescinded Advance Directives on record at Department of [facility] facilities. An actual copy of the Directive is not included. Date Advance Directive Provider Source 06/22/2021 ADVANCE DIRECTIVE DISCUSSION ALLYSON GRAF [facility] 06/22/2021 ADVANCE DIRECTIVE [facility] 03/09/2007 ADVANCE DIRECTIVE SOLEDAD WOLFF [facility]
--- OUTSIDE RECORDS SUMMARY | 2024-04-23 09:42 | XMS_ITS | Encounter Summary ---
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 [place] Organization [facility] [place] Address [address] [place] [address] Care Team Providers Care Commercial Account Manager Name Role Phone CHARLEE FISH Primary [...] MEDIC ARE SUPPL EMENT Jul 31, 2018 [id number] [phone] RODNEYBRITTNEYKANE ALEX PATIENT [place] MED[place] SUPPLEMEN [place] MEDIC ARE SUPPL EMENT Jul 31, 2018 [id number] [phone] RENBRITTNEYKANE A[place] [facility] ([place]NR) MEDICARE ADVANTAGE [facility] (WNR) Jul 31, 2017 [id number] [phone] RENBRITTNEY,KANE ALEX PATIENT [place] MEDICARE SUPPLEMEN SCOT MEDIC ARE SUPPL EMENT Jul 31, 2018 [id number] RENBRITTNEY,KANE ALEX PAT[place] SUPPLEMEN [place] MEDIC ARE SUPPL EMENT Jul 31, 2018 [id number] [phone] RENBRITTNEY,KANE ALEX PATIENT MEDICARE (WNR) MEDICARE ([place]) PART A May 31, 2011 PART A [id number] [phone] KANE PÉREZ PATIENT MEDICARE (WNR) MEDICARE ([place]) PART B May 31, 2011 PART B [id number] [phone] KANE PÉREZ PATIENT Selected Encounter This section includes the information on record at [facility] for the Encounter. Date/Time Encounter Type Encounter Description Reason Pro vider Source IHE Encounter Template Text not used by [facility] Advance Directives: All historical and current Section [...] Jun 22, 2021 ADVANCE DIRECTIVE ALLYSON GRAF [facility] Mar 09, 2007 ADVANCE DIRECTIVE SOLEDAD WOLFF [facility]
--- OUTSIDE RECORDS SUMMARY | 2024-04-23 09:43 | XMS_ITS | Data Portability ---
Author Organization [place] [facility] Address [address] [place] [address] Care Team Providers Care Business Services Sales Agent Name Role Phone POST, SUE Primary Care [...] of Hospitaliza tion for UTI. 2022 023 [facility], [address], [address], [place], [address], 3 10:05:08 urinalysis, dipstick 2022 023 [facility], [address], [place], [address], 12:03:37 Referral None recorded. Procedures None recorded. Surgeries None recorded. Imaging None recorded. Medication Orders None recorded. Patient TargetsNo targets recorded. Patient Instructions Encounter Date Encounter Id Patient Instructions Last Modified By Organization Details Last Modified Time 09/23/2022 [id number] Patient to call clinic with questions or concerns. Advised patient to increase water intake and to keep 4 week appointment for next catheter change. [email or web address] Not available 09/23/2022 13:22:30 11/04/2022 [id number] Pt has F/U appt with Dr Barrientos in [place] on 11/11/2022 @ 3:10pm to review UDS. [...] ate 3) Sensi tivit y Priscila sis [place] 3 ----- ----- ----- ----- ----- [...] s Desk [facility]. S= Susce ptibl e;I= Inter [...] for provi brandon revie w. Not Available [facility] [address], [place], [address], 11/07/2022 10:05:08 11/05/19 23 11/04/2022 urina lysis , dipst ick Color-Status Straw Not Available [facility] [address], [place], [address], 11/04/2022 12:02:10 11/05/19 23 11/04/2022 urina lysis , dipst ick Clarity-Stat us Slight ly Cloudy Not Available [facility] [address], [place], [address], 11/04/2022 12:02:10 11/05/19 23 11/04/2022 urina lysis , dipst ick Glucose-Stat us 500 Not Available [facility] [address], [place], [address], 11/04/2022 12:02:10 11/05/19 23 11/04/2022 urina lysis , dipst ick Bilirubin-St atus Negati ve Not Available [facility] [address], [place], [address], 11/04/2022 12:02:10 11/05/19 23 11/04/2022 urina lysis , dipst ick Ketones-Stat us Negati ve Not Available [facility] [address], [place], [address], 11/04/2022 12:02:10 11/05/19 23 11/04/2022 urina lysis , dipst ick Sp [place]-Stat us 1.015 Not Available [facility] [address], [place], [address], 11/04/2022 12:02:10 11/05/19 23 11/04/2022 urina lysis , dipst ick pH-Status 6.5 Not Available [facility] [address], [place], [address], 11/04/2022 12:02:10 11/05/19 23 11/04/2022 urina lysis , dipst ick Protein-Stat us 5.0 Not Available [facility] [address], [place], [address], 11/04/2022 12:02:10 11/05/19 23 11/04/2022 urina lysis , dipst ick Urobilinogen -Status 0.2 Not Available [facility] [address], [place], [address], 11/04/2022 12:02:10 11/05/19 23 11/04/2022 urina lysis , dipst ick Nitrates-Sta tus positi ve Not Available [facility] [address], [place], [address], 11/04/2022 12:02:10 11/05/19 23 11/04/2022 urina lysis , dipst ick Blood-Status Large Not Available [facility] [address], [place], [address], 11/04/2022 12:02:10 11/05/19 23 11/04/2022 urina lysis , dipst ick Leuko-Status Large Not Available [facility] [address], [place], [address], 11/04/2022 12:02:10 11/05/19 23 11/04/2022 urina lysis , dipst ick Specimen Type Cathet erized Not Available [facility] [address], [place], [address], 11/04/2022 12:02:10 11/05/19 23 11/04/2022 urina lysis , dipst ick Performed by LKchuckve n1 Not Available [facility] [address], [place], [address], 11/04/2022 12:02:10 Result Notes None recorded. Problems Name Problem SNOMED Code Status Onset Date Resolution Date Notes Provider Name and Address Organization Details Recorded Time Retention of urine 972448624 [facility] 13:15:43 Problem Notes None recorded. Procedures Surgical History Date Name Laterality Status Provider Name and Address Organization Details Recorded Time 3 Fill and Pull/Voiding Trial/TOV completed Jenna Harris [facility] 12/09/2022 11:59:45 3 Urodynamic Studies completed Deyanira Woods [facility] 11/04/2022 12:19:38 3 Gordon Catheter Insertion completed Deyanira Woods [facility] 11/04/2022 12:21:21 3 Urethral Catheter Change completed Jenna Harris [facility] 10/21/2022 13:18:32 3 Urethral Catheter Change completed Nenita Flores [facility] 09/23/2022 13:21:12 3 Gordon Catheter Insertion completed Roula Beltran [facility] 08/03/2022 11:16:51 3 Fill and Pull/Voiding Trial/TOV completed Roula Beltran [facility] 08/03/2022 11:16:41 2 Cystoscopy- male completed Kristopher Barrientos MD, PHD [address] [place] [address],[address], [address], [facility] 06/30/2022 09:37:30 2 Urethral Catheter Change completed Carlos Mix [facility] 06/30/2022 09:49:15 2 Gordon Catheter Insertion completed Juanito Josue [facility] 06/16/2022 15:03:22 2 Fill and Pull/Voiding Trial/TOV completed Roula Tony PA-C [address] [place] [address],[address], [address], [facility] 06/16/2022 18:06:50 Cataract Surgery completed Juanito Josue [facility] 06/16/2022 12:30:25 Orthopedic Surgery completed Еленаarminda Josue [facility] 06/16/2022 12:30:33 Imaging Results [...] Details Last Updated DateTime 09/23/2022 180.34 cm Nenitaaranza Flores [facility] 09/23/2022 13:17:39 Date Recorded Body height Body mass index (BMI) Body weight Provider Name and Address Organization Details Last Updated DateTime 11/11/2022 180.34 cm 30 kg/m2 24888.36 g Amanda Molina [facility] 11/11/2022 16:25:51 Social History Question Answer Notes LastModified by Organizat ion Details LastModified Time Tobacco Smoking Status Former Smoker Juanito song [facility] 06/16/2022 12:29:38 What Is [...] Age of this Age Resolved Age Notes LastModified by Organization Details LastModified Time Father Family history of malignant neoplasm [email or web address] Not available 2021 12:29:03 Father Family history of cardiac disorder [email or web address] Not available 2021 12:29:09 Medical History Condition Response Diabetes Y Sexually Transmitted Infection N Other N Bleeding Disorder N High Blood Pressure N Kidney Stones N Cancer N Depression N Lung Disease N High Cholesterol N GERD/Acid Reflux N Heart Disease Y Past Encounters Encounter ID Performer Location Encounter Start Date Encounter Closed Date Diagnosis/Indication Diagnosis SNOMED-CT Code Diagnosis ICD10 Code [id number] Roula Tony PA-C [facility] [address] [place] [id number] 06/16/2022 11:30:09 06/20/2022 08:36:10 Retention of urine 733724659 R33.9 Benign pro static hyperplasia with outflow obstruction 157200829 N40.1 [id number] Kristopher green MD, PHD [facility] [address] [place] [id number] 06/30/2022 08:46:23 07/04/2022 11:29:58 Retention of urine 108995886 R33.9 Benign pro static hyperplasia with outflow obstruction 567740193 N40.1 [id number] Roula Ruby [facility] [address] [place] [address] 08/03/2022 10:27:16 08/05/2022 11:54:14 Retention of urine 304345621 R33.9 [id number] Nenitaaranza Flores [facility] [address] [place] [id number] 09/23/2022 10:30:04 09/26/2022 14:37:37 [id number] Kristopher green MD, PHD [facility] [address] [place] [id number] 11/04/2022 10:41:00 11/10/2022 13:37:32 Benign prostatic hyperplasia with outflow obstruction 178310082 N40.1 Retention of urine 06369 4002 R33.9 Microscopic hematuria 19 1447551 R31.29 [id number] Jenna Harris [facility] [address] [place] [id number] 10/21/2022 11:27:55 10/24/2022 11:49:09 Retention of urine 448159061 R33.9 [id number] Kristopher green MD, PHD [facility] [address] [place] [id number] 11/11/2022 16:25:28 11/17/2022 17:02:38 Retention of urine 179952578 R33.9 Benign pro static hyperplasia with outflow obstruction 385279840 N40.1 [id number] Jenna Harris [facility] [address] [place] [id number] 12/09/2022 10:56:01 12/12/2022 15:10:14 Retention of urine 041518968 R33.9 Health Concerns Section Related Observation LastModified by Organization Detai ls LastModified Time None Recorded Concern Status LastModified by Organization Details LastModified Time None Recorded Advance Directives Directive None Recorded Payers Encounter Date Sequence Insurance Name Policy Number Policy Molina Covered Member ID Molina Member ID Guarantor Name 09/23/2022 1 [place] [employer] Tom B Renaux [id number] Tom B Renaux 09/23/2022 2 [place] [id number] Tom B Renaux [id number] Tom B Renaux 10/21/2022 1 [place] [employer] Tom B Renaux [id number] Tom B Renaux 10/21/2022 2 [place] [id number] Tom B Renaux [id number] Tom B Renaux 11/04/2022 1 [place] [employer] Tom B Renaux [id number] Tom B Renaux 11/04/2022 2 [place] [id number] Tom B Renaux [id number] Tom B Renaux 11/11/2022 1 [place] [employer] Tom B Renaux [id number] Tom B Renaux 11/11/2022 2 [place] [id number] Tom B Renaux [id number] Tom B Renaux 12/09/2022 1 [place] [facility] [employer] Tom B Renaux [id number] Tom B Renaux 12/09/2022 2 [place] [id number] Tom B Renaux [id number] Tom B Renaux Notes Date Note Type [...] weeks for next catheter change. Nenita song [facility] 09/23/2022 13:22:32 10/21/2022 text/html HPI Notes: Pt he re for catheter change OLMAN Chappell [facility] 10/21/2022 13:21:54 11/11/2022 text/html HPI Notes: 77M w ith urinary retention. Hospitalization at [facility] from 04/30-05/30 for MSSA bacteremia with [...] coordinate their care. Kristopher Barrientos MD, PHD [address] [place] [address],[address], [address], [facility] 11/11/2022 17:49:57 12/09/2022 text/html HPI Notes: Pt of Dr PALMER, here for TOV recommended at 11/11/22 visit Jenna song [facility] 12/09/2022 12:43:22
== END 2024-04-23 09:40 | disposition home or self-care (01) ==
LOC: WOUND 09:39
PROVIDERS: Visit Provider Nurse Practitioner Family
DX: E11.621 Type 2 diabetes mellitus with foot ulcer (principal); L97.512 Non-pressure chronic ulcer of other part of right foot with fat layer exposed; I89.0 Lymphedema, not elsewhere classified; Z79.84 Long term (current) use of oral hypoglycemic drugs; Z79.85 Long-term (current) use of injectable non-insulin antidiabetic drugs
CPT/HCPCS: 97597

== ENCOUNTER 2024-04-30 11:23 | Outpatient (CLI) | payer MEDICARE, BC, SELFPAY ==
--- OUTSIDE RECORDS SUMMARY | 2024-04-30 11:25 | XMS_ITS | Referral Summary ---
Author Organization [place] Address [address] [place] [address] Care Team Providers Care Breastfeeding Peer Counselor Name Role Phone Post, Dave Wakefield Primary [...] Comments Blood Pressure 148/85 06/26/2018 5:58 PM METERS SUPERINTENDENT Pulse 90 06/26/2018 5:58 PM METERS SUPERINTENDENT Temperature 36.6 ??C (97.8 ??F) 06/26/2018 5:58 PM CS T Respiratory Rate 18 06/26/2018 5:58 PM METERS SUPERINTENDENT Oxygen Saturation 95% 06/26/2018 7:00 PM METERS SUPERINTENDENT Inhaled Oxygen Concentration - - Weight 112 kg (247 lb) 06/26/2018 5:58 PM METERS SUPERINTENDENT Height 180.3 cm (5' 11) 06/26/2018 5:58 PM METERS SUPERINTENDENT Body Mass Index 34.45 06/26/2018 5:58 PM METERS SUPERINTENDENT Plan of Treatment Not on file Care Teams Breastfeeding Peer Counselor Relationship Specialty Start Date End Date Post, Dave Wakefield PCP - General Internal Medicine 06/26/18
--- OUTSIDE RECORDS SUMMARY | 2024-04-30 11:25 | XMS_ITS | Clinical Summary ---
Author Organization [facility] Address [place], [place] [address] Care Team Providers Care Apparel Cutter Name Role Phone Post, Dave Velazquez MD Primary Care Provider Moshe Enciso MD Unavailable Arie Justin MD Unavailable [phone] [facility], [facility] Unavailable [phone] Murali Hoover DPM Unavailable [phone] Allergies No known active allergies Medications [...] 05/19/2011 03/17/2017 Overview (07/05/2013): flomax didn't help Jayed Care Contract 07/13/2010 012 Overview (07/13/2010): This patient, PCP and Care Guide have signed a letter agreeing on a set of goals for diabetes, hypertension and/or CHF. Please look for [facility] Care Goal Contract in Chart Review/ Letters and support this effort. Please direct questions to Care Guide Pamella Brennan Phone number [phone]. Alcohol abuse 06/02/2010 03/26/2019 Overview (06/02/2010): Sober [...] 36.7 ??C (98 ??F) 06/29/2022 8:43 AM [employer] Respiratory Rate 18 06/29/2022 8:43 AM [employer] Oxygen Saturation 96% 07/21/2023 1:34 PM [employer] Inhaled Oxygen Concentration - - Weight 107 kg (236 lb) 11/03/2023 11:13 AM CDT w ith shoes Height 180.3 cm (5' 10.98) 07/21/2023 1:[address] Body Mass Index 32.93 07/21/2023 1:34 PM [employer] Plan of Treatment Health Maintenance Due Date [...] 07/16/2020, 04/21/2020 Medical Devices Implanted Type Area Clinical Provider Trainer Device Identifier Shelf Expiration Date Model / Serial / Lot [id number] - [id number] Implanted:Qty: 1 on 09/20/2021 at [facility] Right: Foot [employer] AR-8725-4 4H / / Description:COMPRESSION FT S CREWS CANNULATED, 2.5 MICRO 44MM LOAD 4 7 [id number] Kristina-1530p - [id number] Implanted:Qty: 1 on 09/20/2021 at [facility] Right: Foot [employer] 03/30/2025 AR-1530P- CP / / [id number] Description:FOREFOOT INTERNA L BRACE IMPLANT SYSTEM, PEEK Screw 4.51f30zt Bio Compositetenodesis Disp Visor Installer Pk - [id number] Implanted:Qty: 1 on 09/20/2021 at [facility] Right: Foot [employer] 08/30/2022 AR-1547CD S / / [id number] Ancr Sut 1.3mm Dx Fibertak Suturetape 2 Ndl 26.2mm 08/01 Cir - [id number] Implanted:Qty: 1 on 09/20/2021 at [facility] Right: Foot [employer] 06/29/2026 AR-8990ST / / [id number] Explanted Type Area Clinical Provider Trainer Device Identifier Shelf Expiration Date Model / Serial / Lot Wire Kirs .[id number] Smooth6/Pk Depuy/Héctor - [id number] Explanted:Qty: 1 on 09/20/2021 at [facility] Right: Foot [employer] / / Description:LOAD 4 8 [id number] [facility]8737-40 - [id number] Explanted:Qty: 1 on 09/20/2021 at [facility] Right: Foot [employer] [place]-8737-40 / / Description:2.5 MICRO COMPRE SSION FT DRILLS AND DISPOSABLES, GUIDEWIRE W TROCAR TIP, THREADED, 0.34 IN (.86MM) LOAD 4 7 [id number] Procedures Procedure Name Priority Date/Time Associated Diagnosis Comments CT CHEST PE STUDY Routine 05/10/2022 7:5 0 PM CDT OCCULT BLOOD IFOBT STOOL Routine 07/03/2013 7:00 PM [employer] Screening for colon cancer from Last 3 [...] Occult Blood Stool (IFOBT) (07/03/2013 7:00 PM [employer]) STOOL BLOOD ,IFOBT Negative Negative, Invalid 07/04/2013 3:03 PM [employer] [facility] Stool specimen (specimen) STOOL SPECIMEN / Unknown Non-Blood / Unknown 07/03/2013 7:00 PM [employer] 07/04/2013 2:39 PM [employer] Dave Garrett MD LABORATORY Performing Organization Address City/State/[facility] Co de Phone Number [facility] [address] [place], [place] [phone] from Last 3 Months or Most Recently Relevant to Health Maintenance Advance Directives Documents on File Type Date Recorded Patient Graphic Design Manager Expl anation Healthcare Directive 05/21/2021 3:50 PM [...] Code Status Discussion: Reviewed Preferences Care Teams Apparel Cutter Relationship Specialty Start Date End Date Post, Dave Velazquez MD PCP - General 06/02/10 Moshe Enciso MD [address] [place], [place] [address] Endocrinology Endocrinology 01/04/18 [place] [address] [address] [place] [address] Surgery - Ophthalmology 03/22/18 [facility] [place] [address] [place] [address] 06/08/21 Murali Hoover DPM [address] [place], [place] [address] Surgery - Podiatric 01/03/23
--- OUTSIDE RECORDS SUMMARY | 2024-04-30 11:25 | XMS_ITS | Continuity of Care Document ---
Author Name [facility] Organization [facility] Care Team Providers Care Licensed Club Manager Name Role Phone [facility] Unavailable Unavailable Problems Combined list of problems from Department of Defense and Veterans Affairs facilities. It does not include entries that were removed or entered in error. Problem Status Onset Date Problem Type Date of Resolution Comments Source Exposure to potentially hazardous substance ([facility] [id number]) Active 10/05/19 24 Condition Oct 05, 2023 Entered By: VIJI VIVAS Comment: [facility] CH[facility] Documentation Initiative [facility] Depressive Disorder NOS * (ICD-9-CM 311./300.4) Active Condition [facility] Diabetes mellitus (SNOMED CT 43393826) Active Condition [facility] Diabetic neuropathy Active Condition [facility] Foot Pain (ICD-9-CM 719.47) Active Condition Aug 26 10 Entered By: MALINA WORLEY Comment: left 5th metatarsal fracture [facility] History of amputation of lesser toe Active Condition [facility] Hyperlipidemia (SNOMED CT 72905016) Active Condition [facility] Hyperuricemia Active Condition [facility] Osteopenia Active Condition [facility] Other Iatrogenic Hypotension Active Condition [facility]) Personal History of Alcoholism (ICD-9-CM V11.3) Active Condition [facility] Tobacco user (SNOMED CT 697268867) Active Condition [facility] Diagnosis: ICD-10-CM E11.42 Type 2 diabetes mellitus with diabetic polyneuropathy Active Diagnosis [facility] Diana [facility] Diagnosis: ICD-10-CM E11.621 Type 2 diabetes mellitus with foot ulcer Active Diagnosis [facility] Diagnosis: ICD-10-CM Z77.29 Contact with and exposure to other hazardous substances Active Diagnosis [facility] Medications Combined list of outpatient medications [...] ed by: CHARLEE FISH Document ed at: [facility] ORAL ACTIVE CHARLEE FISH 2022 [facility] ASPIRIN 81MG TAB,EC ASPIRIN 81MG TAB,EC Non-VA TAKE ONE TABLET BY MOUTH EVERY DAY Mar 13, 2007 Non-[place] Document ed by: MARY CHOUDHARY Document ed at: [facility] ORAL ACTIVE JEFF CHOUDHARY A 2006 [facility] ATORVASTATI N CA 40MG TAB ATORVAST ATIN CA 40MG TAB Active TAKE ONE TABLET BY MOUTH EVERY DAY FOR CHOLESTE ROL Apr 17, 2024 90 Apr 18, 2025 [id number] Apr 18, 2024 NAIDL,TO DD [facility] ORAL ACTIVE 04/18/2025 [id number] NAIDL,TOD D 2023 90 [facility] ATORVASTATI N CA 40MG TAB ATORVAST ATIN CA 40MG TAB Disconti nued TAKE ONE TABLET BY MOUTH EVERY DAY FOR CHOLESTE ROL Apr 11, 2023 90 Apr 11, 2024 [id number] A December 17, 2023 CHARLEE FISH [facility] ORAL DISCONT INUED 04/11/2024 [id number] CHARLEE FISH 2022 90 [facility] ATORVASTATI N CA 40MG TAB ATORVAST ATIN CA 40MG TAB Disconti nued TAKE ONE TABLET BY MOUTH EVERY DAY FOR CHOLESTE ROL Jul 14, 2022 90 Jul 15, 2023 [id number] Mar 31, 2023 NAIDL,TO DD [facility] ORAL DISCONT INUED 07/15/2023 [id number] NAIDL,TOD D 2022 90 [facility] CHOLECALCIF QUINTIN TAB CHOLECAL CIFEROL TAB Non-VA TAKE 5000 UNITS BY MOUTH EVERY DAY Aug 21, 2022 Non-VA Document ed by: CHARLEE FISH Document ed at: [facility] ORAL ACTIVE CHARLEE FISH 2022 [facility] COENZYME Q10 CAP/TAB COENZYME Q10 CAP/TAB Non-VA TAKE 1 CAPSULE BY MOUTH EVERY DAY Aug 21, 2022 Non-VA Document ed by: CHARLEE FISH Document ed at: [facility] ORAL ACTIVE CHARLEE FISH 2022 [facility] CYANOCOBALA MIN 1000MCG TAB CYANOCOB ALAMIN 1000MCG TAB Non-VA TAKE ONE TABLET BY MOUTH EVERY DAY Mar 09, 2022 Non-VA Document ed by: MAUREEN BRITO DD Document ed at: [facility] ORAL ACTIVE DEAN BRITO 2021 [facility] DICLOFENAC NA 1% GEL,TOP DICLOFEN AC NA 1% GEL,TOP APPLY 4 GRAMS TOPICALL Y FOUR TIMES A DAY NEEDED FOR JOINT PAIN JOINT PAIN Mar 22, 2023 100 Mar 22, 2024 [id number] Mar 22, 2023 CHARLEE FISH [facility] TOPICA L 03/22/2024 [id number] CHARLEE FISH 2022 100 [facility] FINASTERIDE 5MG TAB FINASTER RACHEL 5MG TAB Active TAKE ONE TABLET BY MOUTH EVERY DAY FOR PROSTATE FOR PROSTATE Apr 17, 2024 90 Apr 18, 2025 [id number] B Apr 18, 2024 CHARLEE FISH [facility] ORAL ACTIVE 04/18/2025 [id number] CHARLEE FISH 2023 90 [facility] FINASTERIDE 5MG TAB FINASTER RACHEL 5MG TAB Disconti nued TAKE ONE TABLET BY MOUTH EVERY DAY FOR PROSTATE FOR PROSTATE Apr 11, 2023 90 Apr 11, 2024 [id number] A Jan 08, 2024 CHARLEE FISH [facility] ORAL DISCONT INUED 04/11/2024 [id number] CHARLEE FISH 2022 90 [facility] FINASTERIDE 5MG TAB FINASTER RACHEL 5MG TAB Disconti nued TAKE ONE TABLET BY MOUTH EVERY DAY FOR PROSTATE FOR PROSTATE Jul 12, 2022 90 Jul 13, 2023 [id number] Mar 31, 2023 CHARLEE FISH [facility] ORAL DISCONT INUED 07/13/2023 [id number] CHARLEE FISH 2021 90 [facility] FISH OIL 1000MG (500MG DHA/EPA) CAP,ORAL FISH OIL 1000MG (500MG DHA/EPA) CAP,ORAL Non-VA TAKE 1 CAPSULE BY MOUTH TWICE A DAY Mar 13, 2007 Non-VA Document ed by: AMRY CHOUDHARY A Document ed at: [facility] ORAL ACTIVE JEFF CHOUDHARY ER A 2006 [facility] INSULIN,GLA RGINE-YFGN 100UNIT/ML INJ PEN,3ML INSULIN, GLARGINE -YFGN 100UNIT/ ML INJ PEN,3ML Active: Susp INJECT 24 UNITS UNDER THE SKIN EVERY MORNING FOR DIABETES FOR DIABETES Apr 26, 2024 5 Apr 27, 2025 [id number] Apr 30, 2024 NAIDL,TO DD [facility] SUBCUT ANEOUS SUSPEND ED 04/27/2025 [id number] NAIDL,TOD D 2023 5 [facility] INSULIN,GLA RGINE-YFGN 100UNIT/ML INJ PEN,3ML INSULIN, GLARGINE -YFGN 100UNIT/ ML INJ PEN,3ML Disconti nued INJECT 24 UNITS UNDER THE SKIN EVERY EVENING FOR DIABETES FOR DIABETES Apr 16, 2024 5 Apr 17, 2025 [id number] A May 06, 2024 NAIDL,TO DD [facility] SUBCUT ANEOUS DISCONT INUED (EDIT) 04/17/2025 [id number] NAIDL,TOD D 2023 5 [facility] INSULIN,GLA RGINE-YFGN 100UNIT/ML INJ PEN,3ML INSULIN, GLARGINE -YFGN 100UNIT/ ML INJ PEN,3ML Disconti nued INJECT 24 UNITS UNDER THE SKIN EVERY EVENING FOR DIABETES FOR DIABETES Aug 29, 2023 5 Aug 29, 2024 [id number] Mar 14, 2024 NAIDL,TO DD [facility] SUBCUT ANEOUS DISCONT INUED 08/29/2024 [id number] NAIDL,TOD D 2023 5 [facility] INSULIN,GLA RGINE-YFGN 100UNIT/ML INJ PEN,3ML INSULIN, GLARGINE -YFGN 100UNIT/ ML INJ PEN,3ML Disconti nued INJECT 22 UNITS UNDER THE SKIN AT BEDTIME FOR DIABETES FOR DIABETES Jan 06, 2023 5 Jan 07, 2024 [id number] Jul 25, 2023 NAIDL,TO DD [facility] SUBCUT ANEOUS DISCONT INUED (EDIT) 01/07/2024 [id number] NAIDL,TOD D 2022 5 [facility] LIDOCAINE 4% CREAM,TOP LIDOCAIN E 4% CREAM,TO P APPLY MODERATE AMOUNT TOPICALL Y THREE TIMES A DAY FOR PAIN PAIN Mar 22, 2023 30 Mar 22, 2024 [id number] Mar 22, 2023 CHARLEE FISH [facility] TOPICA L 03/22/2024 [id number] CHARLEE FISH 2022 30 [facility] MAGNESIUM OXIDE 400MG TAB MAGNESIU M OXIDE 400MG TAB Non-VA TAKE ONE TABLET BY MOUTH EVERY DAY Aug 21, 2022 Non-VA Document ed by: CHARLEE FISH Document ed at: [facility] ORAL ACTIVE CHARLEE FISH 2022 [facility] MENTHOL/MET HYL SALICYLATE (10-15%) LOW CONC. CREAM,TOP MENTHOL/ METHYL SALICYLA TE (10-15%) LOW CONC. CREAM,TO P APPLY THIN LAYER TOPICALL Y THREE TIMES A DAY FOR MUSCLE PAIN MUSLCE PAIN Mar 22, 2023 90 Mar 22, 2024 [id number] Mar 22, 2023 CHARLEE FISH [facility] TOPICA L 03/22/2024 [id number] CHARLEE FISH 2022 90 [facility] METFORMIN HCL 1000MG TAB METFORMI N HCL 1000MG TAB Active TAKE ONE TABLET BY MOUTH TWICE A DAY FOR DIABETES Apr 17, 2024 180 Jul 16, 2024 [id number] May 09, 2024 NAIDL,TO DD [facility] ORAL ACTIVE 07/16/2024 [id number] NAIDL,TOD D 2023 180 [facility] METFORMIN HCL 1000MG TAB METFORMI N HCL 1000MG TAB Disconti nued TAKE ONE TABLET BY MOUTH TWICE A DAY FOR DIABETES Apr 11, 2023 180 Apr 11, 2024 [id number] E Feb 19, 2024 CHARLEE FISH [facility] ORAL DISCONT INUED 04/11/2024 [id number] CHARLEE FISH 2022 180 [facility] METFORMIN HCL 1000MG TAB METFORMI N HCL 1000MG TAB Disconti nued TAKE ONE TABLET BY MOUTH TWICE A DAY FOR DIABETES Jul 14, 2022 180 Jul 15, 2023 [id number] D Apr 06, 2023 NAIDL,TO DD [facility] ORAL DISCONT INUED 07/15/2023 [id number] NAIDL,TOD D 2022 180 [facility] OMEPRAZOLE 20MG CAP,EC OMEPRAZO LE 20MG CAP,EC TAKE ONE CAPSULE BY MOUTH EVERY DAY ON AN EMPTY STOMACH, AT LEAST 30 MINUTES PRIOR TO A MEAL FOR GERD GERD Mar 22, 2023 90 Mar 22, 2024 [id number] December 22, 2023 CHARLEE FISH [facility] ORAL 03/22/2024 [id number] ABE CHARLEE A 2022 90 [facility] SEMAGLUTIDE 1MG/0.75ML INJ,SOLN,PE N,3ML SEMAGLUT RACHEL 1MG/0.75 ML INJ,SOLN ,PEN,3ML Active INJECT 1MG UNDER THE SKIN EVERY WEEK FOR DIABETES FOR DIABETES Nov 07, 2023 1 Nov 07, 2024 [id number] A Apr 14, 2024 NAIDL,TO DD [facility] SUBCUT ANEOUS ACTIVE 11/07/2024 [id number] NAIDL,TOD D 2023 1 [facility] SEMAGLUTIDE 1MG/0.75ML INJ,SOLN,PE N,3ML SEMAGLUT RACHEL 1MG/0.75 ML INJ,SOLN ,PEN,3ML Disconti nued INJECT 1MG UNDER THE SKIN EVERY WEEK FOR DIABETES FOR DIABETES Nov 07, 2022 1 Nov 08, 2023 [id number] Nov 06, 2023 NAIDL,TO DD [facility] SUBCUT ANEOUS DISCONT INUED 11/08/2023 [id number] NAIDL,TOD D 2022 1 [facility] TAMSULOSIN HCL 0.4MG CAP TAMSULOS IN HCL 0.4MG CAP Active TAKE ONE CAPSULE BY MOUTH EVERY EVENING PROSTATE Apr 17, 2024 30 Apr 18, 2025 [id number] A May 08, 2024 CHARLEE FISH [facility] ORAL ACTIVE 04/18/2025 [id number] CHARLEE FISH 2023 30 [facility] TAMSULOSIN HCL 0.4MG CAP TAMSULOS IN HCL 0.4MG CAP Disconti nued TAKE ONE CAPSULE BY MOUTH EVERY EVENING PROSTATE Apr 13, 2023 30 Apr 13, 2024 [id number] Mar 14, 2024 CAHRLEE FISH [facility] ORAL DISCONT INUED 04/13/2024 [id number] CHARLEE FISH 2022 30 [facility] TAMSULOSIN HCL 0.4MG CAP TAMSULOS IN HCL 0.4MG CAP Disconti nued TAKE ONE CAPSULE BY MOUTH EVERY EVENING PROSTATE Apr 11, 2023 90 Apr 11, 2024 [id number] A Apr 21, 2023 CHARLEE FISH [facility] ORAL DISCONT INUED 04/11/2024 [id number] CHARLEE FISH 2022 90 [facility] TURMERIC CAP/TAB TURMERIC CAP/TAB Non-VA TAKE 500 MG BY MOUTH TWICE A DAY Apr 22, 2019 Non-VA Document ed by: MATTY WOO Document ed at: [facility] ORAL ACTIVE MATTY POWERS 2018 [facility] Allergies, Adverse Reactions, Alerts Combined list [...] Site Reaction Lot Number CVX Code Drug Combat Systems Officer Status Comments Source ZOSTER RECOMBINANT 2 2019 187 complet ed [facility] INFLUENZA, INJECTABLE, QUADRIVALENT, PRESERVATIVE FREE 2019 150 complet ed [facility] ZOSTER RECOMBINANT 1 2019 187 complet ed [facility] INFLUENZA, HIGH-DOSE, QUADRIVALENT 2019 197 complet ed [facility] INFLUENZA, SEASONAL, INJECTABLE, PRESERVATIVE FREE 2017 140 complet ed [facility] INFLUENZA, INJECTABLE, QUADRIVALENT, PRESERVATIVE FREE 2017 150 complet ed [facility] INFLUENZA, INJECTABLE, QUADRIVALENT, PRESERVATIVE FREE 2015 150 complet ed [facility] TDAP 2015 115 complet ed [facility] TA PNEUMOCOCCAL CONJUGATE PCV 13 2015 133 complet ed [facility] TD (ADULT), 5 LF TETANUS TOXOID, PRESERVATIVE FREE, ADSORBED 2015 113 complet ed [facility] INFLUENZA, INJECTABLE, QUADRIVALENT, PRESERVATIVE FREE 2013 150 complet [facility] PNEUMOCOCCAL POLYSACCHARID E PPV23 2010 33 complet ed [facility] INFLUENZA, UNSPECIFIED FORMULATION 2006 88 complet [facility] PNEUMOCOCCAL, UNSPECIFIED FORMULATION 2006 109 complet ed [facility] TD(ADULT) UNSPECIFIED FORMULATION 2006 NONE 139 complet [facility] TETANUS TOXOID, UNSPECIFIED FORMULATION 2006 NONE 112 complet ed [facility] Results Combined list of recent chemistry, [...] Aug 21, 2022 03:48 PM Reporting Lab: [facility] [address] Performing Lab: [facility] [address] [facility] BASIC METABOLIC PANEL+MG CREATININE [MASS/VOLUM E] IN SERUM OR PLASMA 1.2 mg/dL 0.7 - 1.2 03/22 Specimen Type: PLASMA No comment entered. Ordering Provider: ME LEEROY FISH Report Released Date/Time: Aug 21, 2022 03:48 PM Reporting Lab: [facility] [address] Performing Lab: [facility] [address] [facility] IS [facility] BASIC METABOLIC PANEL+MG UREA NITROGEN [MASS/VOLUM E] IN SERUM OR PLASMA 15 mg/dL 8 - 03/22 Specimen Type: PLASMA No comment entered. Ordering Provider: ME LEEROY FISH Report Released Date/Time: Aug 21, 2022 03:48 PM Reporting Lab: [facility] [address] Performing Lab: [facility] [address] [facility] IS [facility] BASIC METABOLIC PANEL+MG GLUCOSE [MASS/VOLUM E] IN SERUM OR PLASMA 145 mg/dL 70 - 100 03/22 H Specimen Type: PLASMA No comment entered. Ordering Provider: ME LEEROY FISH Report Released Date/Time: Aug 21, 2022 03:48 PM Reporting Lab: [facility] [address] Performing Lab: [facility] [address] [place] [facility] BASIC METABOLIC PANEL+MG SODIUM [MOLES/VOLU ME] IN SERUM OR PLASMA 138 mmol/L 136 - 145 03/22 Specimen Type: PLASMA No comment entered. Ordering Provider: ME LEEROY FISH Report Released Date/Time: Aug 21, 2022 03:48 PM Reporting Lab: [facility] [address] Performing Lab: [facility] [address] [place] [facility] BASIC METABOLIC PANEL+MG POTASSIUM [MOLES/VOLU ME] IN SERUM OR PLASMA 4.5 mmol/L 3.5 - 5.1 03/22 Specimen Type: PLASMA No comment entered. Ordering Provider: ME LEEROY FISH Report Released Date/Time: Aug 21, 2022 03:48 PM Reporting Lab: [facility] [address] Performing Lab: [facility] [address] [place] [facility] BASIC METABOLIC PANEL+MG CHLORIDE [MOLES/VOLU ME] IN SERUM OR PLASMA 101 mmol/L 98 - 107 03/22 Specimen Type: PLASMA No comment entered. Ordering Provider: ME LEEROY FISH Report Released Date/Time: Aug 21, 2022 03:48 PM Reporting Lab: [facility] [address] Performing Lab: [facility] [address] [place] [facility] BASIC METABOLIC PANEL+MG CARBON DIOXIDE, TOTAL [MOLES/VOLU ME] IN SERUM OR PLASMA 27 mmol/L 22 - 29 03/22 Specimen Type: PLASMA No comment entered. Ordering Provider: ME LEEROY FISH Report Released Date/Time: Aug 21, 2022 03:48 PM Reporting Lab: [facility] [address] Performing Lab: [facility] [address] [place] [facility] BASIC METABOLIC PANEL+MG CALCIUM [MASS/VOLUM E] IN SERUM OR PLASMA 10.0 mg/dL 8.4 - 10.2 03/22 Specimen Type: PLASMA No comment entered. Ordering Provider: ME LEEROY FISH Report Released Date/Time: Aug 21, 2022 03:48 PM Reporting Lab: [facility] [address] Performing Lab: [facility] [address] [place] [facility] BASIC METABOLIC PANEL+MG MAGNESIUM [MASS/VOLUM E] IN SERUM OR PLASMA 1.9 mg/dL 1.6 - 2.6 03/22 Specimen Type: PLASMA No comment entered. Ordering Provider: ME LEEROY FISH Report Released Date/Time: Aug 21, 2022 03:48 PM Reporting Lab: [facility] [address] Performing Lab: [facility] [address] [place] [facility] BASIC METABOLIC PANEL+MG ANION GAP IN SERUM OR PLASMA 10 mmol/L 5 - 15 03/22 Specimen Type: PLASMA No comment entered. Ordering Provider: ME LEEROY FISH Report Released Date/Time: Aug 21, 2022 03:48 PM Reporting Lab: [facility] [address] Performing Lab: [facility] [address] [place] [facility] BASIC METABOLIC PANEL+MG GLOMERULAR FILTRATION RATE/1.73 SQ M.PREDICTED [VOLUME RATE/AREA] IN SERUM, PLASMA OR BLOOD BY CREATININE- BASED FORMULA (CKD-EPI 2020) 63 60 03/22 Specimen Type: PLASMA No comment entered. Ordering Provider: ME LEEROY FISH Report Released Date/Time: Aug 21, 2022 03:48 PM Reporting Lab: [facility] [address] Performing Lab: [facility] [address] [place] [facility] HEMOGLOBI N A1C HEMOGLOBIN A1C/HEMOGLO BIN.TOTAL [...] December 22, 2021 03:46 PM Reporting Lab: [facility] [address] Performing Lab: [facility] [address] [place] [facility] BASIC METABOLIC PANEL+MG CREATININE [MASS/VOLUM E] IN SERUM OR PLASMA 0.9 mg/dL 0.7 - 1.2 08/18 Specimen Type: PLASMA No comment entered. Ordering Provider: ME LEEROY FISH Report Released Date/Time: December 22, 2021 03:46 PM Reporting Lab: [facility] [address] Performing Lab: [facility] [address] [place] [facility] BASIC METABOLIC PANEL+MG UREA NITROGEN [MASS/VOLUM E] IN SERUM OR PLASMA 12 mg/dL 8 - 26 08/18 Specimen Type: PLASMA No comment entered. Ordering Provider: ME LEEROY FISH Report Released Date/Time: December 22, 2021 03:46 PM Reporting Lab: [facility] [address] Performing Lab: [facility] [address] [place] [facility] BASIC METABOLIC PANEL+MG GLUCOSE [MASS/VOLUM E] IN SERUM OR PLASMA 184 mg/dL 70 - 100 08/18 H Specimen Type: PLASMA No comment entered. Ordering Provider: ME LEEROY FISH Report Released Date/Time: December 22, 2021 03:46 PM Reporting Lab: [facility] [address] Performing Lab: [facility] [address] [place] [facility] BASIC METABOLIC PANEL+MG SODIUM [MOLES/VOLU ME] IN SERUM OR PLASMA 137 mmol/L 136 - 145 08/18 Specimen Type: PLASMA No comment entered. Ordering Provider: ME LEEROY FISH Report Released Date/Time: December 22, 2021 03:46 PM Reporting Lab: [facility] [address] Performing Lab: [facility] [address] [place] [facility] BASIC METABOLIC PANEL+MG POTASSIUM [MOLES/VOLU ME] IN SERUM OR PLASMA 3.9 mmol/L 3.5 - 5.1 08/18 Specimen Type: PLASMA No comment entered. Ordering Provider: ME LEEROY FISH Report Released Date/Time: December 22, 2021 03:46 PM Reporting Lab: [facility] [address] Performing Lab: [facility] [address] [place] [facility] BASIC METABOLIC PANEL+MG CHLORIDE [MOLES/VOLU ME] IN SERUM OR PLASMA 102 mmol/L 98 - 107 08/18 Specimen Type: PLASMA No comment entered. Ordering Provider: ME LEEROY FISH Report Released Date/Time: December 22, 2021 03:46 PM Reporting Lab: [facility] [address] Performing Lab: [facility] [address] [place] [facility] BASIC METABOLIC PANEL+MG CARBON DIOXIDE, TOTAL [MOLES/VOLU ME] IN SERUM OR PLASMA 26 mmol/L 22 - 29 08/18 Specimen Type: PLASMA No comment entered. Ordering Provider: ME LEEROY FISH Report Released Date/Time: December 22, 2021 03:46 PM Reporting Lab: [facility] [address] Performing Lab: [facility] [address] [place] [facility] BASIC METABOLIC PANEL+MG CALCIUM [MASS/VOLUM E] IN SERUM OR PLASMA 9.4 mg/dL 8.4 - 10.2 08/18 Specimen Type: PLASMA No comment entered. Ordering Provider: ME LEEROY FISH Report Released Date/Time: December 22, 2021 03:46 PM Reporting Lab: [facility] [address] Performing Lab: [facility] [address] [place] [facility] BASIC METABOLIC PANEL+MG MAGNESIUM [MASS/VOLUM E] IN SERUM OR PLASMA 1.6 mg/dL 1.6 - 2.6 08/18 Specimen Type: PLASMA No comment entered. Ordering Provider: ME LEEROY FISH Report Released Date/Time: December 22, 2021 03:46 PM Reporting Lab: [facility] [address] Performing Lab: [facility] [address] [place] [facility] BASIC METABOLIC PANEL+MG ANION GAP IN SERUM OR PLASMA 9 mmol/L 5 - 15 08/18 Specimen Type: PLASMA No comment entered. Ordering Provider: ME LEEROY FISH Report Released Date/Time: December 22, 2021 03:46 PM Reporting Lab: [facility] [address] Performing Lab: [facility] [address] [place] [facility] BASIC METABOLIC PANEL+MG GLOMERULAR FILTRATION RATE/1.73 SQ M.PREDICTED [VOLUME RATE/AREA] IN SERUM, PLASMA OR BLOOD BY CREATININE- BASED FORMULA (CKD-EPI) 89 60 08/18 Specimen Type: PLASMA No comment entered. Ordering Provider: ME LEEROY FISH Report Released Date/Time: December 22, 2021 03:46 PM Reporting Lab: [facility] [address] Performing Lab: [facility] [address] [facility] Encounters Combined list of: 1) 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 2) Encounters from the Department of Defense facilities going back up to 280 months. Location Location Details Encounter Type Encounter Number Reason For Visit Attending Provider ADM Date DC Date Status Disposition Source [facility] PRO PHONE CALL 21-30 MIN [id number] [phone] Diagnos is: ICD-10- CM E11.42 Type 2 diabete s mellitu s with diabeti c polyneu ropathy
NAIDL,KARI 11/07 [facility] PRO PHONE CALL 11-20 MIN [id number] [phone] Diagnos is: ICD-10- CM E11.42 Type 2 diabete s mellitu s with diabeti c polyneu ropathy
NAIDL,KARI 12/07 [facility] En[facility] [id number] Diagnos is: ICD-10- CM Z77.29 Contact with and exposur e to other [facility]<br/ > JEANINEJESSICA 12/27 [facility] Outpatient Encounter [id number] Diagnos is: ICD-10- CM Z77.29 Contact with and exposur e to other [facility]<br/ > JEANINEJESSICA 12/27 [facility] PRO PHONE CALL 11-20 MIN [id number] Diagnos is: ICD-10- CM E11.42 Type 2 diabete s mellitu s with diabeti c polyneu ropathy
NAIDL,KARI 01/06 [facility] Outpatient Encounter [id number] 03/10 [facility] PRO PHONE CALL 11-20 MIN [id number] Diagnos is: ICD-10- CM E11.42 Type 2 diabete s mellitu s with diabeti c polyneu ropathy
NAIDL,KARI 03/14 [facility] OFFICE O/P EST LOW 20-29 MIN [id number] Diagnos is: ICD-10- CM E11.621 Type 2 diabete s mellitu s with foot ulcer<b r/> Rhiannon FISH 03/22 [facility] PRO PHONE CALL 21-30 MIN [id number] Diagnos is: ICD-10- CM E11.42 Type 2 diabete s mellitu s with diabeti c polyneu ropathy
NAIDL,KARI 04/18 [facility] PRO PHONE CALL 21-30 MIN [id number] Diagnos is: ICD-10- CM E11.42 Type 2 diabete s mellitu s with diabeti c polyneu ropathy
NAIDL,KARI 07/11 [facility] MT[facility] BY PHARM ADDL 15 MIN [id number] Diagnos is: ICD-10- CM E11.42 Type 2 diabete s mellitu s with diabeti c polyneu ropathy
NAIDL,KARI 08/29 [facility] PH[facility] EST 15 MIN [id number] Diagnos is: ICD-10- CM E11.42 Type 2 diabete s mellitu s with diabeti c polyneu ropathy
AWMARCIOSOLEDAD L 10/10 [facility] En[facility] [id number] 10/16 [facility] BY PHARM EST 15 MIN [id number] Diagnos is: ICD-10- CM E11.621 Type 2 diabete s mellitu s with foot ulcer<b r/> NAIDL,KARI 11/06 [facility] MT[facility] BY PHARM ADDL 15 MIN [id number] Diagnos is: ICD-10- CM E11.42 Type 2 diabete s mellitu s with diabeti c polyneu ropathy
NAIDL,KARI 11/22 [facility] MT[facility] BY PHARM ADDL 15 MIN [id number] Diagnos is: ICD-10- CM E11.42 Type 2 diabete s mellitu s with diabeti c polyneu ropathy
NAIDL,KARI 01/17 [facility] [id number] Diagnos is: ICD-10- CM E11.42 Type 2 diabete s mellitu s with diabeti c polyneu ropathy
MILAGRO TONEY 01/18 [facility] QNHP OL DIG ASSMT&MGMT 5-10 [id number] Diagnos is: ICD-10- CM E11.42 Type 2 diabete s mellitu s with diabeti c polyneu ropathy
MOE CHOWDHURY R 01/18 [facility] [place] [facility] MTMS BY PHARM EST 15 MIN [id number] Diagnos is: ICD-10- CM E11.42 Type 2 diabete s mellitu s with diabeti c polyneu ropathy
NAIDL,KARI 02/21 [facility] [facility] [place] [facility] Outpatient Encounter [id number] RORY CAPPS 02[facility] [place] [facility] Outpatient Encounter [id number] 03/14 [facility] QNHP OL DIG ASSMT&MGMT - [id number] Diagnos is: ICD-10- CM E11.42 Type 2 diabete s mellitu s with diabeti c polyneu ropathy
NAIDL,KARI 03/27 [place] [facility] [place] [facility] Outpatient Encounter [id number] 04/16 [facility] [place] [facility] MTMS BY PHARM EST 15 MIN [id number] Diagnos is: ICD-10- CM E11.42 Type 2 diabete s mellitu s with diabeti c polyneu ropathy
NAIDL,KARI 04/26 [place] [facility] Social History Combined list of available smoking, tobacco, and other social history from [facility] and [facility] Affairs facilities. Social History Type Response Date Comment [facility] e Tobacco smoking status INIS VA-TOBACCO FORMER USER 08/18/2022 [facility] History of tobacco use [place]-TOBACCO QUIT 1 5 YRS OR MORE 08/18/2022 [facility] History of tobacco use VA-TOBACCO FORMER USER 05/03/2021 [facility] History of tobacco use AK-TOBACCO QUIT 1 5 YRS OR MORE 04/21/2020 [facility] History of tobacco use FORMER TOBACCO US E >1Y <7Y 04/03/2018 [facility] History of tobacco use CURRENT TOBACCO USER 03/09/2007 [facility] Plan of Care List of future care activities from [facility] facilities. Additional future care activities may be listed in the Assessment and Plan section. Date/Time Care Activity Care Activity Detail Facili ty 05/17/2024 AMBULATORY - NONE AMBULATORY - NONE [facility] 05/17/2024 AMBULATORY - MEDICINE AMBULATORY - MEDICI NE [facility] 06/11/2024 AMBULATORY - NONE AMBULATORY - NONE [facility] 04/17/2024 Laboratory - Chemistry Order BAS IC METABOLIC PANEL+MG PLASMA SP ONCE [facility] 04/17/2024 Laboratory - Chemistry Order HEM OGLOBIN A1C BLOOD SP ONCE [facility] 04/17/2024 Laboratory - Chemistry Order CBC and DIFF BLOOD SP ONCE [facility] Advance Directives List of completed, amended, or rescinded Advance Directives on record at [facility] facilities. An actual copy of the Directive is not included. Date Advance Directive Provider Source 06/22/2021 ADVANCE DIRECTIVE DISCUSSION ALLYSON GRAF [facility] 06/22/2021 ADVANCE DIRECTIVE ALLYSON GRAF [facility] 03/09/2007 ADVANCE DIRECTIVE SOLEDAD WOLFF [facility]
--- OUTSIDE RECORDS SUMMARY | 2024-04-30 11:25 | XMS_ITS | Clinical Summary ---
Author Organization [facility] Address [address] [place] [address] Care Team Providers Care Packing Machine Pilot Can Router Name Role Phone Post, Dave Wakefield Primary Care Provider [phone] Medications Medication Sig Dispensed Refills Start Date [...] Comments Blood Pressure 148/85 06/26/2018 5:58 PM DIRECTOR PRODUCT SAFETY Pulse 90 06/26/2018 5:58 PM DIRECTOR PRODUCT SAFETY Temperature 36.6 ??C (97.8 ??F) 06/26/2018 5:58 PM CS T Respiratory Rate 18 06/26/2018 5:58 PM DIRECTOR PRODUCT SAFETY Oxygen Saturation 95% 06/26/2018 7:00 PM DIRECTOR PRODUCT SAFETY Inhaled Oxygen Concentration - - Weight 112 kg (247 lb) 06/26/2018 5:58 PM DIRECTOR PRODUCT SAFETY Height 180.3 cm (5' 11) 06/26/2018 5:58 PM DIRECTOR PRODUCT SAFETY Body Mass Index 34.45 06/26/2018 5:58 PM DIRECTOR PRODUCT SAFETY Plan of Treatment Not on file Care Teams Packing Machine Pilot Can Router Relationship Specialty Start Date End Date Post, Dave Wakefield PCP - General Internal Medicine 06/26/18
--- OUTSIDE RECORDS SUMMARY | 2024-04-30 11:26 | XMS_ITS | Encounter Summary ---
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 [place] [facility] [place] Address [address] [place] [address] Care Team Providers Care Tire Design Engineer Name Role Phone CHARLEE FISH Primary Care [...] MEDIC ARE SUPPL EMENT Jul 31, 2018 [id number] [phone] RENKANE LUGO ALEX PATIENT [place] MED[place] SUPPLEMEN [place] MEDIC ARE SUPPL EMENT Jul 31, 2018 [id number] [phone] RENBRITTNEY,JU ALEX PATIENT [place]BS [place] [facility] (WNR) MEDICARE ADVANTAGE [facility] (WNR) Jul 31, 2017 [id number] [phone] RENAUX,JU ALEX PATIENT [place] MED[place]ARE SUPPLEMEN [place] MEDIC ARE SUPPL EMENT Jul 31, 2018 [id number] [phone] RENAUX,JU ALEX PATIENT [place] SUPP[place] MEDIC ARE SUPPL EMENT Jul 31, 2018 [id number] [phone] RENAUX,JU ALEX PATIENT MEDICARE (WNR) MEDICARE ([place]) PART A May 31, 2011 PART A [id number] [phone] KANE MANTILLA PATIENT MEDICARE (WNR) MEDICARE (M) PART B May 31, 2011 PART B [id number] [phone] KANE MANTILLA PATIENT Selected Encounter This section includes the information on record at [place] for the Encounter. Date/Time Encounter Type Encounter Description Reason Provider Source Apr 26, 2024 01:30 PM MTMS BY PHARM ERICK 15 MIN TELEPHONE PRIMARY CARE ICD-10-CM E11.42 Type 2 diabetes mellitus with diabetic polyneuropathy KARI BRITO Candy Encounter Template Text not used by [place] Assessments - Encounter Diagnoses This section includes the primary and secondary diagnoses documented for the Encounter. Date/Time Primary/Secondary Diagnosis Diagnosis Name Provider Source Apr 26, 2024 01:30 PM PRIMARY Type 2 diabetes mellitus with diabetic polyneuropathy KARI BRITO [facility] Plan of Treatment: Future Appointments (+ 6 months) and Future Tests (+/- 45 days) The Plan of Treatment section includes future care activities for the patient from all [place] [facility]. This section includes future appointments and future orders which are active, pending or scheduled. Future Appointments This section includes appointments that were scheduled to occur 6 months from the date of the Encounter, up to a maximum of 20 appointments. The data comes from all [place] [facility]. Appointment Date/Time Appointment Type Appointme nt Facility Name May 17, 2024 02:00 PM AMBULATORY - NONE [facility] May 17, 2024 02:45 PM AMBULATORY - MEDICINE [facility] Jun 11, 2024 11:30 AM AMBULATORY - NONE [facility] Active, Pending, and Scheduled Orders This section includes a listing of several types of active, pending, and scheduled orders, including clinic medications orders, diagnostic test orders, procedure orders and consult orders; where the start date of the order is 45 days before the date of the Encounter or 45 days after the date of theEncounter. The data comes from all [place] [facility]. Test Date/Time Test Type Test Details Facility Name Apr 17, 2024 12:00 AM Laboratory - Chemi stry Order BASIC METABOLIC PANEL+MG PLASMA SP ONCE [facility] Apr 17, 2024 12:00 AM Laboratory - Chemi stry Order HEMOGLOBIN A1C BLOOD SP ONCE [facility] Apr 17, 2024 12:00 AM Laboratory - Chemi stry Order CBC & DIFF BLOOD SP ONCE [facility] Social History: Smoking Status (Most current) and Tobacco Use (All prior to encounter date) This section includes the most current, and the historical, smoking and tobacco- related health factors from the [facility] where the Encounter took place. Current Smoking Status This section includes the most current smoking, or tobacco-related health factor, from the [place] facility where the Encounter took place. Date/Time Current Smoking Status Comment Facil ity Aug 18, 2022 08:30 AM [place]-TOBACCO FORMER USER [facility] Tobacco Use History This section includes a history of the smoking, or tobacco-related health factors, that were collected on or before the date of the Encounter. The data comes from the [place] facility where the Encounter took place. Date/Time Smoking Status/Tobacco Use Comment F acility Aug 18, 2022 08:30 AM VA-TOBACCO QUIT 15 YRS OR MORE [facility] May 03, 2021 08:00 AM VA-TOBACCO FORMER USER [facility] May 03, 2021 08:00 AM VA-TOBACCO QUIT 15 YRS OR MORE [facility] Apr 21, 2020 09:00 AM VA-TOBACCO FORMER USER [facility] Apr 21, 2020 09:00 AM VA-TOBACCO QUIT 15 YRS OR MORE [facility] Apr 03, 2018 03:16 PM FORMER TOBACCO USE >1Y <7Y [facility] Mar 09, 2007 10:41 AM CURRENT TOBACCO USER [facility] Advance Directives: All historical and current Section Date Range: From patient's date of to the date document was created. This section includes ALL of a patient's completed or amended [place] Advance and Rescinded Directives. The entries below indicate that a directive exists for the patient, but an actual copy is not included with this document. The data comes from all [facility]. Date Advance Directives Provider Source Jun 22, 2021 ADVANCE DIRECTIVE DISCUSSION ALLYSON GRAF [facility] Jun 22, 2021 ADVANCE DIRECTIVE ALLYSON GRAF [facility] Mar 09, 2007 ADVANCE DIRECTIVE SOLEDAD WOLFF [facility] Encounter Notes: All associated encounter notes This section contains the clinical notes associated to the Encounter. Date/Time Encounter Note(s) Provider Source Apr 26, 2024 01:53 PM JUNIOR WEB DEVELOPER NOTE: LOCAL TITLE: DIABETES JUNIOR WEB DEVELOPER NOTE STANDARD TITLE: JUNIOR WEB DEVELOPER NOTE DATE OF NOTE: APR 26, 2024@13:53 ENTRY DATE: APR 26, 2024@13:53:51 AUTHOR: KARI BRITOIGNER: URGENCY: STATUS: COMPLETED BACKGROUND: BETOMIGUELINA is a 78 YO MALE contacted by phone for medication management, mainly for DM. PMH is significant for T2DM with chronic foot infections, GERD, and HLD. SUBJECTIVE: In brief, at our last visit we started up his Ashley 3. reports doing well and has been pleased with results. Lifestyle: Tobacco: Denies EtOH: Denies Food and Drink: Breakfast: egg/stoner/1 piece of toast on occasion a bkfst roll or milk/cereal Lunch: varies--sometimes skips or a sandwich or grapes/cheese, beef stew Evening meal: almond cutting machine tender -- sandwich or fruit/cheese Snacks: snickers, [place] kisses, ice cream, cookies on occasion. other times, nuts and beef jerky. Beverages: diet coke, water, coffee Activity: Uses a walker or cane when ambulating, which is limited given his foot wounds. Recently restarted using his exercise bike daily-slowly increasing now. Would like to use his e-bike, but unfortunately is unable to currently. ROS: (+) hypoglycemia symptoms --> 2 lows in the early AM. We have reviewed the rule of 15s. (-) hyperglycemia symptoms SMBG Readings: Checks prn as indicated given CGM use. Home BP Readings: Previously reported 120s/80s 90s at home. Did not have actual readings. Nurse checks 3x weekly. Adherence to medications: Manages independently using a pillbox. Denies any issues with missed doses. OBJECTIVE: Name: Miguelina Mantilla Date of : 1945 Report Period: 04/13/2024 - 04/26/2024 (14 days) Generated: 04/26/2024 % Time CGM Active: 94% Glucose Statistics and Targets Average Glucose: 184 mg/dL Glucose Management Indicator (GMI): 7.7% Glucose Variability (%CV): 31.4% Target Range: 70 - 180 mg/dL Time in Ranges Very High: >250 mg/dL --- 15% High: 181 - 250 mg/dL --- 33% Target Range: 70 - 180 mg/dL --- 52% Low: 54 - 69 mg/dL --- 0% Very Low: <54 mg/dL --- 0% Low Alarm: 70 High Alarm: off Trends: fastings in the mid-100s, increasing during the day and peaking around 9pm in the mid-200s. 2 lows in the early AM. ALLERGIES/ADR: VANCOMYCIN (Apr 27, 2018) Outpatient Medications Status ======= 1) ATORVASTATIN CALCIUM 40MG TAB TAKE ONE TABLET BY ACTIVE MOUTH EVERY DAY FOR CHOLESTEROL 2) FINASTERIDE 5MG TAB TAKE ONE TABLET BY MOUTH EVERY ACTIVE DAY FOR PROSTATE 3) INSULIN,GLARGINE-YFGN 100UNIT/ML PEN 3ML INJECT 24 confirmed UNITS UNDER THE SKIN EVERY EVENING FOR DIABETES 4) METFORMIN HCL 1000MG TAB TAKE ONE TABLET BY MOUTH confirmed TWICE A DAY FOR DIABETES 5) SEMAGLUTIDE 1MG/0.75ML INJ PEN 3ML INJECT 1MG UNDER confirmed THE SKIN EVERY WEEK FOR DIABETES 6) [...] 500 MG MOUTH TWICE A DAY ACTIVE 14 Total Medications Previous DM Medications: -Empa-->took [...] >60 Ref: >=60 Collection DT Spec HGBA1C 03/22/2024 7.1 H 10/25/2023 7.9 H local 03/22/2023 7.1 H [...] <210) per [place] guidelines. Last A1c was at goal. Reported CGM readings show higher evening post-prandials and episodically lower fastings. Will move his glargine to qAM administration to address. PLAN: Medications: -Move glargine to 24 units qAM -fine to adjust by 2 units every 3 days, targeting fastings in the 100- 150 range. -Continue Semaglutide 1 mg q 7 days -Continue metformin 1 gm BID -Continue other meds, as above Monitoring: - SMBG prn - Continue Ashley 3 CGM -move to Ashley 3 plus sensors -Using an [employer]hone 8 plus #Disease-Specific Med Rec: Completed today #Labs: up-to-date - Educated vet on indication/risks/benefits of new/changed medication. - Education provided on therapeutic nonpharmacologic management to achieve goals. - Vet advised of recent labs. - verbalized understanding to all plans discussed today. Questions were answered to vet's satisfaction. Time spent: 20 minutes RTC: -06/11 pharmD phone prefers to avoid [facility]-only has a cellphone /toby/ KARI BRITO PHARM D, BCPS Clinical Pharmacist Practitioner-[facility] Signed: 04/26/2024 14:18 KARI BRITO [facility]
== END 2024-04-30 11:24 | disposition home or self-care (01) ==
LOC: WOUND 11:23
PROVIDERS: Visit Provider Nurse Practitioner Family
DX: E11.621 Type 2 diabetes mellitus with foot ulcer (principal); L97.512 Non-pressure chronic ulcer of other part of right foot with fat layer exposed; I89.0 Lymphedema, not elsewhere classified
CPT/HCPCS: 11042

== ENCOUNTER 2024-05-07 11:21 | Outpatient (CLI) | payer MEDICARE, BC, SELFPAY ==
--- OUTSIDE RECORDS SUMMARY | 2024-05-07 11:59 | XMS_ITS | Clinical Summary ---
Author Organization [facility] Address [address] [place] [address] Care Team Providers Care Vending Machine Coin Collector Name Role Phone Post, Dave Wakefield Primary Care Provider [phone] Medications Medication Sig Dispensed Refills Start Date [...] Comments Blood Pressure 148/85 06/26/2018 5:58 PM MAT REPAIRER Pulse 90 06/26/2018 5:58 PM MAT REPAIRER Temperature 36.6 ??C (97.8 ??F) 06/26/2018 5:58 PM CS T Respiratory Rate 18 06/26/2018 5:58 PM MAT REPAIRER Oxygen Saturation 95% 06/26/2018 7:00 PM MAT REPAIRER Inhaled Oxygen Concentration - - Weight 112 kg (247 lb) 06/26/2018 5:58 PM MAT REPAIRER Height 180.3 cm (5' 11) 06/26/2018 5:58 PM MAT REPAIRER Body Mass Index 34.45 06/26/2018 5:58 PM MAT REPAIRER Plan of Treatment Not on file Care Teams Vending Machine Coin Collector Relationship Specialty Start Date End Date Post, Dave Wakefield PCP - General Internal Medicine 06/26/18
--- OUTSIDE RECORDS SUMMARY | 2024-05-07 11:59 | XMS_ITS | Referral Summary ---
Author Organization [place] [facility] Address [address] [place] [address] Care Team Providers Care Music Worker Name Role Phone Post, Dave Wakefield Primary Care Provider [phone] Medications Medication Sig Dispensed Refills Start Date [...] Comments Blood Pressure 148/85 06/26/2018 5:58 PM RESIDENCE DIRECTOR Pulse 90 06/26/2018 5:58 PM RESIDENCE DIRECTOR Temperature 36.6 ??C (97.8 ??F) 06/26/2018 5:58 PM CS T Respiratory Rate 18 06/26/2018 5:58 PM RESIDENCE DIRECTOR Oxygen Saturation 95% 06/26/2018 7:00 PM RESIDENCE DIRECTOR Inhaled Oxygen Concentration - - Weight 112 kg (247 lb) 06/26/2018 5:58 PM RESIDENCE DIRECTOR Height 180.3 cm (5' 11) 06/26/2018 5:58 PM RESIDENCE DIRECTOR Body Mass Index 34.45 06/26/2018 5:58 PM RESIDENCE DIRECTOR Plan of Treatment Not on file Care Teams Music Worker Relationship Specialty Start Date End Date Post, Dave Wakefield PCP - General Internal Medicine 06/26/18
--- OUTSIDE RECORDS SUMMARY | 2024-05-07 11:59 | XMS_ITS | Clinical Summary ---
Author Organization [facility] [place], [place] [address] Care Team Providers Care Sales Developer Name Role Phone Post, Dave Velazquez MD Primary Care Provider [phone] Moshe Enciso MD Unavailable [phone] Arie Justin MD Unavailable [phone] [facility], [facility] Unavailable [phone] Murali Hoover DPM Unavailable [phone] Allergies No known active allergies Medications [...] diabetes, hypertension and/or CHF. Please look for [facility] Care Goal Contract in Chart Review/ Letters and support this effort. Please direct questions to Care Guide Pamella Brennan Phone number [phone]. Alcohol abuse 06/02/2010 03/26/2019 Overview (06/02/2010): Sober [...] 36.7 ??C (98 ??F) 06/29/2022 8:43 AM BEHAVIORAL GENETICIST Respiratory Rate 18 06/29/2022 8:43 AM BEHAVIORAL GENETICIST Oxygen Saturation 96% 07/21/2023 1:34 PM BEHAVIORAL GENETICIST Inhaled Oxygen Concentration - - Weight 107 kg (236 lb) 11/03/2023 11:13 AM CDT w ith shoes Height 180.3 cm (5' 10.98) 07/21/2023 1:[address] Body Mass Index 32.93 07/21/2023 1:34 PM BEHAVIORAL GENETICIST Plan of Treatment Health Maintenance Due Date [...] 07/16/2020, 04/21/2020 Medical Devices Implanted Type Area Dry Molder Device Identifier Shelf Expiration Date Model / Serial / Lot [id number] - [id number] Implanted:Qty: 1 on 09/20/2021 at [facility] Right: Foot [employer] AR-8725-4 4H / / Description:COMPRESSION FT S CREWS CANNULATED, 2.5 MICRO 44MM LOAD 4 [id number] Kristina-1530p - [id number] Implanted:Qty: 1 on 09/20/2021 at [facility] Right: Foot [employer] 03/30/2025 AR-1530P- CP / / [id number] Description:FOREFOOT INTERNA L BRACE IMPLANT SYSTEM, PEEK Screw 4.19m75yc Bio Compositetenodesis Disp Community Life Director Pk - [id number] Implanted:Qty: 1 on 09/20/2021 at [facility] Right: Foot [employer] 08/30/2022 AR-1547CD S / / [id number] Ancr Sut 1.3mm Dx Fibertak Suturetape 2 Ndl 26.2mm 08/01 Cir - [id number] Implanted:Qty: 1 on 09/20/2021 at [facility] Right: Foot [employer] 06/29/2026 AR-8990ST / / [id number] Explanted Type Area Dry Molder Device Identifier Shelf Expiration Date Model / Serial / Lot Wire Kirs .[id number] Smooth6/Pk Depuy/Héctor - [id number] Explanted:Qty: 1 on 09/20/2021 at [facility] Right: Foot [employer] / / Description:LOAD 4 8 [id number] [facility]8737-40 - [id number] Explanted:Qty: 1 on 09/20/2021 at [facility] Right: Foot [employer] [id number] / / Description:2.5 MICRO COMPRE SSION FT DRILLS AND DISPOSABLES, GUIDEWIRE W TROCAR TIP, THREADED, 0.34 IN (.86MM) LOAD 4 7 [id number] Procedures Procedure Name Priority Date/Time Associated Diagnosis Comments CT CHEST PE STUDY Routine 05/10/2022 7:5 0 PM CDT OCCULT BLOOD IFOBT STOOL Routine 07/03/2013 7:00 PM BEHAVIORAL GENETICIST Screening for colon cancer from Last 3 [...] Occult Blood Stool (IFOBT) (07/03/2013 7:00 PM BEHAVIORAL GENETICIST) STOOL BLOOD ,IFOBT Negative Negative, Invalid 07/04/2013 3:03 PM BEHAVIORAL GENETICIST [facility] Stool specimen (specimen) STOOL SPECIMEN / Unknown Non-Blood / Unknown 07/03/2013 7:00 PM BEHAVIORAL GENETICIST 07/04/2013 2:39 PM BEHAVIORAL GENETICIST Dave Garrett MD LABORATORY Performing Organization Address City/State/[facility] Co de Phone Number [facility] [address] [place], [place] [phone] from Last 3 Months or Most Recently Relevant to Health Maintenance Advance Directives Documents on File Type Date Recorded Patient Wing Scorer Expl anation Healthcare Directive 05/21/2021 3:50 PM [...] Status Discussion: Reviewed Preferences Care Teams Sales Developer Relationship Specialty Start Date End Date Post, Dave Velazquez MD PCP - General 06/02/10 Moshe Enciso MD [address] [facility] [address] [place], [place] [address] Endocrinology Endocrinology 01/04/18 [place] [address] [facility] [address] [address] [place] [address] Surgery - Ophthalmology 03/22/18 [facility], [facility] [address] [facility] [address] [address] [facility] [address] [place] [address] 06/08/21 Murali Hoover DPM [address] [place], [place] [address] Surgery - Podiatric 01/03/23
--- OUTSIDE RECORDS SUMMARY | 2024-05-07 12:00 | XMS_ITS | Continuity of Care Document ---
Author Organization [facility] Address [address] [address] [place] [address] Phone Care Team Providers Care Gold Wheel Blocker And Polisher Name Role Phone Link Fredo ROGERS Unavailable Unavailable Medications Medication Instructions Dosage Effective Dates (start - stop) Status Comments MiralaxBisacodylMagCit Colon Prep Use as directed - Active Advance Directives Directive Yes / No Effective Date File Name No Information Encounters Encounter Description Practice Location Reason(s) For Visit Diagnoses Date Provider Providers Copied on Encounter [facility], [address] [address], [place], [place], [id number], tel:[phone] [facility] No Information Link MD Yoo. [address] [facility] [address], [place], [place], [id number], [place]. tel:[phone] [facility], [address] [address], [place], [place], [address], tel:[phone] No Information No Information Referring Provider: Dave Garrett MD, [address] [facility] [address], [place], [address]. tel:[phone] Family History Family Member Type Diagnosis Age At Onset No Information Payers Payer name Insurance type Covered alliance party ID Authoriza tion(s) No Information Social History [...]
--- OUTSIDE RECORDS SUMMARY | 2024-05-07 12:00 | XMS_ITS | Data Portability ---
Author Organization [place] - [facility], [facility] Address [address] [place] [address] Care Team Providers Care Laboratory Supervisor Name Role Phone POST, SUE Primary Care [...] Hospitaliza tion for UTI. [address] [facility], [address], [address], [place], [address], 3 10:05:08 urinalysis, dipstick 2022 023 [facility], [address], [place], [address], 12:03:37 Referral None recorded. Procedures None recorded. Surgeries None recorded. Imaging None recorded. Medication Orders None recorded. Patient TargetsNo targets recorded. Patient Instructions Encounter Date Encounter Id Patient Instructions Last Modified By Organization Details Last Modified Time 09/23/2022 [id number] Patient to call clinic with questions or concerns. Advised patient to increase water intake and to keep 4 week appointment for next catheter change. [email or web address] Not available 09/23/2022 13:22:30 11/04/2022 [id number] Pt has F/U appt with Dr Barrientos in [place] on 11/11/2022 @ 3:10pm to review UDS. [...] isac (Isol ate 1) RESUL T Iftikhar triixe iftikhar isac (Isol ate 2)-Di ffere nt Morph ologi c and Sensi tivit y Type RESUL T Enter ococc us faeca lis (Isol ate 3) Sensi tivit y Priscila sis Jensen te 1 Jensen te 2 Jensen te 3 ----- ----- ----- ----- ----- [...] s Desk [facility]. S= Susce ptibl e;I= [...] for provi brandon revie w. Not Available [facility] [address], [place], [address], 11/07/2022 10:05:08 11/05/19 23 11/04/2022 urina lysis , dipst ick Color-Status Straw Not Available [facility] [address], [place], [address], 11/04/2022 12:02:10 11/05/19 23 11/04/2022 urina lysis , dipst ick Clarity-Stat us Slight ly Cloudy Not Available [facility] [address], [place], [address], 11/04/2022 12:02:10 11/05/19 23 11/04/2022 urina lysis , dipst ick Glucose-Stat us 500 Not Available [facility] [address], [place], [address], 11/04/2022 12:02:10 11/05/19 23 11/04/2022 urina lysis , dipst ick Bilirubin-St atus Negati ve Not Available [facility] [address], [place], [address], 11/04/2022 12:02:10 11/05/19 23 11/04/2022 urina lysis , dipst ick Ketones-Stat us Negati ve Not Available [facility] [address], [place], [address], 11/04/2022 12:02:10 11/05/19 23 11/04/2022 urina lysis , dipst ick Sp Richards-Stat us 1.015 Not Available [facility] [address], [place], [address], 11/04/2022 12:02:10 11/05/19 23 11/04/2022 urina lysis , dipst ick pH-Status 6.5 Not Available [facility] [address], [place], [address], 11/04/2022 12:02:10 11/05/19 23 11/04/2022 urina lysis , dipst ick Protein-Stat us 5.0 Not Available [facility] [address], [place], [address], 11/04/2022 12:02:10 11/05/19 23 11/04/2022 urina lysis , dipst ick Urobilinogen -Status 0.2 Not Available [facility] [address], [place], [address], 11/04/2022 12:02:10 11/05/19 23 11/04/2022 urina lysis , dipst ick Nitrates-Sta tus positi ve Not Available [facility] [address], [place], [address], 11/04/2022 12:02:10 11/05/19 23 11/04/2022 urina lysis , dipst ick Blood-Status Large Not Available [facility] [address], [place], [address], 11/04/2022 12:02:10 11/05/19 23 11/04/2022 urina lysis , dipst ick Leuko-Status Large Not Available [facility] [address], [place], [address], 11/04/2022 12:02:10 11/05/19 23 11/04/2022 urina lysis , dipst ick Specimen Type Cathet erized Not Available [facility] [address], [place], [address], 11/04/2022 12:02:10 11/05/19 23 11/04/2022 urina lysis , dipst ick Performed by LKchuckve n1 Not Available [facility] [address], [place], [address], 11/04/2022 12:02:10 Result Notes None recorded. Problems Name Problem SNOMED Code Status Onset Date Resolution Date Notes Provider Name and Address Organization Details Recorded Time Ret[facility] of urine 805611096 [facility] 13[facility] Problem Notes None recorded. Procedures Surgical History Date Name Laterality Status Provider Name and Address Organization Details Recorded Time 3 Fill and Pull/Voiding Trial/TOV completed Jenna Harris [facility] 12/09/2022 11:59:45 3 Urodynamic Studies completed Deyanira Woods [facility] 11/04/2022 12:19:38 3 Gordon Catheter Insertion completed Deyanira Woods [facility] 11/04/2022 12:21:21 3 Urethral Catheter Change completed Jenna Harris [facility] 10/21/2022 13:18:32 3 Urethral Catheter Change completed Nenita Flores [facility] 09/23/2022 13:21:12 3 Gordon Catheter Insertion completed Roula Beltran [facility] 08/03/2022 11:16:51 3 Fill and Pull/Voiding Trial/TOV completed Roula Beltran [facility] 08/03/2022 11:16:41 2 Cystoscopy- male completed Kristopher Barrientos MD, PHD [address] [place] [address],[address], [address], [facility] 06/30/2022 09:37:30 2 Urethral Catheter Change completed Carlos Mix [facility] 06/30/2022 09:49:15 2 Gordon Catheter Insertion completed Juanito Josue [facility] 06/16/2022 15:03:22 2 Fill and Pull/Voiding Trial/TOV completed Roula Tony PA-C [address] [place] [address],[address], [address], [facility] 06/16/2022 18:06:50 Cataract Surgery completed Juanito Josue [facility] 06/16/2022 12:30:25 Orthopedic Surgery completed Еленаarminda Josue [facility] 06/16/2022 12:30:33 Imaging Results None [...] Updated DateTime 09/23/2022 180.34 cm Nenitaaranza Flores [facility] 09/23/2022 13:17:39 Date Recorded Body height Body mass index (BMI) Body weight Provider Name and Address Organization Details Last Updated DateTime 11/11/2022 180.34 cm 30 kg/m2 67467.36 g Amanda Molina [facility] 11/11/2022 16:25:51 Social History Question Answer Notes LastModified by Organizat ion Details LastModified Time Tobacco Smoking Status Former Smoker Juanito song [facility] 06/16/2022 12:29:38 What Is Your Level [...] Diagnosis/Indication Diagnosis SNOMED-CT Code Diagnosis ICD10 Code [id number] Roula Tony PA-C [facility] [address] [place] [address] 06/16/2022 11:30:09 06/20/2022 08:36:10 Retention of urine 232509235 R33.9 Benign pro static hyperplasia with outflow obstruction 653403859 N40.1 [id number] Kristopher green MD, PHD [facility] [address] [place] [address] 06/30/2022 08:46:23 07/04/2022 11:29:58 Retention of urine 352443866 R33.9 Benign pro static hyperplasia with outflow obstruction 708633326 N40.1 [id number] Roula Ruby [facility] [address] [place] [address] 08/03/2022 10:27:16 08/05/2022 11:54:14 Retention of urine 670060446 R33.9 [id number] Nenitaaranza Flores [facility] [address] [place] [address] 09/23/2022 10:30:04 09/26/2022 14:37:37 [id number] Kristopher green MD, PHD [facility] [address] [place] [address] 11/04/2022 10:41:00 11/10/2022 13:37:32 Benign prostatic hyperplasia with outflow obstruction 804546345 N40.1 Retention of urine 26005 4002 R33.9 Microscopic hematuria 19 2876319 R31.29 [id number] Jenna Harris [facility] [address] [place] [address] 10/21/2022 11:27:55 10/24/2022 11:49:09 Retention of urine 863713387 R33.9 [id number] Kristopher green MD, PHD [facility] [address] [place] [address] 11/11/2022 16:25:28 11/17/2022 17:02:38 Retention of urine 168788308 R33.9 Benign pro static hyperplasia with outflow obstruction 934040738 N40.1 [id number] Jenna Harris [facility] [address] [place] [address] 12/09/2022 10:56:01 12/12/2022 15:10:14 Retention of urine 451428735 R33.9 Health Concerns Section Related Observation LastModified by Organization Detai ls LastModified Time None Recorded Concern Status LastModified by Organization Details LastModified Time None Recorded Advance Directives Directive None Recorded Payers Encounter Date Sequence Insurance Name Policy Number Policy Molina Covered Member ID Molina Member ID Guarantor Name 09/23/2022 1 [place] [employer] Tom B Renaux [id number] Tom B Renaux 09/23/2022 2 [place] [id number] Tom B Renaux [id number] Tom B Renaux 10/21/2022 1 [place] [employer] Tom B Renaux [id number] Tom B Renaux 10/21/2022 2 [place] [id number] Tom B Renaux [id number] Tom B Renaux 11/04/2022 1 [place] [employer] Tom B Renaux [id number] Tom B Renaux 11/04/2022 2 [place] [id number] Tom B Renaux [id number] Tom B Renaux 11/11/2022 1 [place] [employer] Tom B Renaux [id number] Tom B Renaux 11/11/2022 2 [place] [id number] Tom B Renaux [id number] Tom B Renaux 12/09/2022 1 [place] [facility] [employer] Tom B Renaux [id number] Tom B Renaux 12/09/2022 2 [place] [id number] Tom B Renaux [id number] Tom B Renaux Notes Date Note Type [...] weeks for next catheter change. Nenita song [facility] 09/23/2022 13:22:32 10/21/2022 text/html HPI Notes: Pt he re for catheter change OLMAN Chappell [facility] 10/21/2022 13:21:54 11/11/2022 text/html HPI Notes: 77M w ith urinary retention. Hospitalization at [facility] from 04/30-05/30 for MSSA bacteremia [...] coordinate their care. Kristopher Barrientos MD, PHD [address] [place] [address],[address], [address], [facility] 11/11/2022 17:49:57 12/09/2022 text/html HPI Notes: Pt of Dr PALMER, here for TOV recommended at 11/11/22 visit Jenna song [facility] 12/09/2022 12:43:22
--- OUTSIDE RECORDS SUMMARY | 2024-05-07 12:00 | XMS_ITS | Continuity of Care Document ---
Author Name [facility] Organization [facility] Care Team Providers Care Lithography Contact Worker Name Role Phone [facility] Unavailable Unavailable Problems Combined list of problems from Department of Defense and Veterans Affairs facilities. It does not include entries that were removed or entered in error. Problem Status Onset Date Problem Type Date of Resolution Comments Source Exposure to potentially hazardous substance ([facility] [id number]) Active 10/05/19 24 Condition Oct 05, 2023 Entered By: VIJI VIVAS Comment: [facility] Documentation Initiative [facility] Depressive Disorder NOS * (ICD-9-CM 311./300.4) Active Condition [facility] Diabetes mellitus (SNOMED CT 40449817) Active Condition [facility] Diabetic neuropathy Active Condition [facility] Foot Pain (ICD-9-CM 719.47) Active Condition Aug 26 10 Entered By: MALINA WORLEY Comment: left 5th metatarsal fracture [facility] History of amputation of lesser toe Active Condition [facility] Hyperlipidemia (SNOMED CT 45723288) Active Condition [facility] Hyperuricemia Active Condition [facility] Osteopenia Active Condition [place] [facility] Other Iatrogenic Hypotension Active Condition [place] [facility] Personal History of Alcoholism (ICD-9-CM V11.3) Active Condition [facility] Tobacco user (SNOMED CT 683493833) Active Condition [facility] Diagnosis: ICD-10-CM E11.42 Type 2 diabetes mellitus with diabetic polyneuropathy Active Diagnosis [facility] Diagnosis: ICD-10-CM E11.621 Type 2 diabetes [...] BY MOUTH TWICE A DAY ORAL ACTIVE ABE [facility]E [facility] 20[facility] ASPIRIN 81MG TAB,EC TAKE ONE TABLET BY MOUTH EVERY DAY ORAL ACTIVE ANSMYRAAZB ER A 2006 [facility] ATORVA[facility] N [place] 40MG TAB TAKE ONE TABLET BY MOUTH EVERY DAY FOR CHOLESTE ROL ORAL ACTIVE 04/18/2025 [id number] 4 NAIDL,TOD D 2023 90 [facility] ATORVASTATI N [place] 40MG TAB TAKE ONE TABLET BY MOUTH EVERY DAY FOR CHOLESTE ROL ORAL DISCONT INUED 04/11/2024 [id number] 4 CHARLEE FISH A 2022 90 [facility] ATORVASTATI N [place] 40MG TAB TAKE ONE TABLET BY MOUTH EVERY DAY FOR CHOLESTE ROL ORAL DISCONT INUED 07/15/2023 [id number] 3 NAIDL,TOD D 2022 90 [facility] CHOLECALCIF QUINTIN TAB TAKE 5000 UNITS BY MOUTH EVERY DAY ORAL ACTIVE ABE CHARLEE A 2022 [facility] COENZYME Q10 CAP/TAB TAKE 1 CAPSULE BY MOUTH EVERY DAY ORAL ACTIVE CHARLEE FISH A 2022 [facility] CYANOCOBALA MIN 1000MCG TAB TAKE ONE TABLET BY MOUTH EVERY DAY ORAL ACTIVE NAIDL,TOD D 2021 [facility] DICLOFENAC NA 1% GEL,TOP APPLY 4 GRAMS TOPICALL Y FOUR TIMES A DAY NEEDED FOR JOINT PAIN TOPICA L 03/22/2024 [id number] 3 CHARLEE FISH A 2022 100 [facility] FINASTERIDE 5MG TAB TAKE ONE TABLET BY MOUTH EVERY DAY FOR PROSTATE ORAL ACTIVE 04/18/2025 [id number] 4 CHARLEE FISH A 2023 90 [facility] FINASTERIDE 5MG TAB TAKE ONE TABLET BY MOUTH EVERY DAY FOR PROSTATE ORAL DISCONT INUED 04/11/2024 [id number] 4 ABE CHARLEE A 2022 90 [facility] FINASTERIDE 5MG TAB TAKE ONE TABLET BY MOUTH EVERY DAY FOR PROSTATE ORAL DISCONT INUED 07/13/2023 [id number] 3 CHARLEE FISH 2021 90 [facility] FISH OIL 1000MG (500MG DHA/EPA) CAP,ORAL TAKE 1 CAPSULE BY MOUTH TWICE A DAY ORAL ACTIVE JEFF CHOUDHARY A 2006 [facility] INSULIN,GLA RGINE-YFGN 100UNIT/ML INJ PEN,3ML INJECT 24 UNITS UNDER THE SKIN EVERY MORNING FOR DIABETES SUBCUT ANEOUS ACTIVE 04/27/2025 [id number] 4 NAIDL,TOD D 2023 5 [facility] INSULIN,GLA RGINE-YFGN 100UNIT/ML INJ PEN,3ML INJECT 24 UNITS UNDER THE SKIN EVERY EVENING FOR DIABETES SUBCUT ANEOUS DISCONT INUED (EDIT) 04/17/2025 [id number] 4 NAIDL,TOD D 2023 5 [facility] INSULIN,GLA RGINE-YFGN 100UNIT/ML INJ PEN,3ML INJECT 24 UNITS UNDER THE SKIN EVERY EVENING FOR DIABETES SUBCUT ANEOUS DISCONT INUED 08/29/2024 [id number] 4 NAIDL,TOD D 2023 5 [facility] INSULIN,GLA RGINE-YFGN 100UNIT/ML INJ PEN,3ML INJECT 22 UNITS UNDER THE SKIN AT BEDTIME FOR DIABETES SUBCUT ANEOUS DISCONT INUED (EDIT) 01/07/2024 [id number] 3 NAIDL,TOD D 2022 5 [facility] LIDOCAINE 4% CREAM,TOP APPLY MODERATE AMOUNT TOPICALL Y THREE TIMES A DAY FOR PAIN TOPICA L 03/22/2024 [id number] 3 CHARLEE FISH 2022 30 [facility] MAGNESIUM OXIDE 400MG TAB TAKE ONE TABLET BY MOUTH EVERY DAY ORAL ACTIVE CHARLEE FISH 2022 [facility] MENTHOL/MET HYL SALICYLATE (10-15%) LOW CONC. CREAM,TOP APPLY THIN LAYER TOPICALL Y THREE TIMES A DAY FOR MUSCLE PAIN TOPICA L 03/22/2024 [id number] 3 CHARLEE FISH 2022 90 [facility] METFORMIN HCL 1000MG TAB TAKE ONE TABLET BY MOUTH TWICE A DAY FOR DIABETES ORAL ACTIVE 07/16/2024 [id number] 4 NAIDL,TOD D 2023 180 [facility] METFORMIN HCL 1000MG TAB TAKE ONE TABLET BY MOUTH TWICE A DAY FOR DIABETES ORAL DISCONT INUED 04/11/2024 [id number] 4 CHARLEE FISH 2022 180 [facility] METFORMIN HCL 1000MG TAB TAKE ONE TABLET BY MOUTH TWICE A DAY FOR DIABETES ORAL DISCONT INUED 07/15/2023 [id number] 3 NAIDL,TOD D 2022 180 [facility] OMEPRAZOLE 20MG CAP,EC TAKE ONE CAPSULE BY MOUTH EVERY DAY ON AN EMPTY STOMACH, AT LEAST 30 MINUTES PRIOR TO A MEAL FOR GERD ORAL 03/22/2024 [id number] 4 CHARLEE FISH 2022 90 [facility] SEMAGLUTIDE 1MG/0.75ML INJ,SOLN,PE N,3ML INJECT 1MG UNDER THE SKIN EVERY WEEK FOR DIABETES SUBCUT ANEOUS ACTIVE 11/07/2024 [id number] 4 NAIDL,TOD D 2023 1 [facility] SEMAGLUTIDE 1MG/0.75ML INJ,SOLN,PE N,3ML INJECT 1MG UNDER THE SKIN EVERY WEEK FOR DIABETES SUBCUT ANEOUS DISCONT INUED 11/08/2023 [id number] 4 NAIDL,TOD D 2022 1 [facility] TAMSULOSIN HCL 0.4MG CAP TAKE ONE CAPSULE BY MOUTH EVERY EVENING ORAL ACTIVE 04/18/2025 [id number] 4 CHARLEE FISH 2023 30 [facility] TAMSULOSIN HCL 0.4MG CAP TAKE ONE CAPSULE BY MOUTH EVERY EVENING ORAL DISCONT INUED 04/13/2024 [id number] 4 CHARLEE FISH 2022 30 [facility] TAMSULOSIN HCL 0.4MG CAP TAKE ONE CAPSULE BY MOUTH EVERY EVENING ORAL DISCONT INUED 04/11/2024 [id number] 3 CHARLEE FISH 2022 90 [facility] TURMERIC CAP/TAB TAKE 500 MG BY MOUTH TWICE A DAY ORAL ACTIVE MATTY POWERS 2018 [facility] Allergies, Adverse Reactions, Alerts Combined [...] Site Reaction Lot Number CVX Code Drug Senior Climate Advisor Status Comments Source ZOSTER RECOMBINANT 2 2019 187 complet ed [facility] INFLUENZA, INJECTABLE, QUADRIVALENT, PRESERVATIVE FREE 2019 150 complet ed [facility] ZOSTER RECOMBINANT 1 2019 187 complet ed [facility] INFLUENZA, HIGH-DOSE, QUADRIVALENT 2019 197 complet ed [facility] INFLUENZA, SEASONAL, INJECTABLE, PRESERVATIVE FREE 2017 140 complet ed [facility] INFLUENZA, INJECTABLE, QUADRIVALENT, PRESERVATIVE FREE 2017 150 complet ed [facility] INFLUENZA, INJECTABLE, QUADRIVALENT, PRESERVATIVE FREE 2015 150 complet ed [facility] TDAP 2015 115 complet ed [place] [facility] PNEUMOCOCCAL CONJUGATE PCV 13 2015 133 complet ed [facility] TD (ADULT), 5 LF TETANUS TOXOID, PRESERVATIVE FREE, ADSORBED 2015 113 complet ed [facility] INFLUENZA, INJECTABLE, QUADRIVALENT, PRESERVATIVE FREE 2013 150 complet ed [facility] PNEUMOCOCCAL POLYSACCHARID E PPV23 2010 33 complet [employer] INFLUENZA, UNSPECIFIED FORMULATION 2006 88 complet [employer] PNEUMOCOCCAL, UNSPECIFIED FORMULATION 2006 109 complet [employer] TD(ADULT) UNSPECIFIED FORMULATION 2006 NONE 139 complet [employer] TETANUS TOXOID, UNSPECIFIED FORMULATION 2006 NONE 112 [...] Aug 21, 2022 03:48 PM Reporting Lab: [facility] [address] Performing Lab: [facility] [address] [facility] BAS[facility] METABOLIC PANEL+MG CREATININE [MASS/VOLUM E] IN SERUM OR PLASMA 1.2 mg/dL 0.7 - 1.2 03/22 Specimen Type: PLASMA No comment entered. Ordering Provider: ME LEEROY FISH Report Released Date/Time: Aug 21, 2022 03:48 PM Reporting Lab: [facility] [address] Performing Lab: [facility] [address] [facility] BASIC METABOLIC PANEL+MG UREA NITROGEN [MASS/VOLUM E] IN SERUM OR PLASMA 15 mg/dL 8 - 26 03/22 Specimen Type: PLASMA No comment entered. Ordering Provider: ME LEEROY FISH Report Released Date/Time: Aug 21, 2022 03:48 PM Reporting Lab: [facility] [address] Performing Lab: [facility] [address] [place] [facility] BASIC METABOLIC PANEL+MG GLUCOSE [MASS/VOLUM E] IN SERUM OR PLASMA 145 mg/dL 70 - 100 03/22 H Specimen Type: PLASMA No comment entered. Ordering Provider: ME LEEROY FISH Report Released Date/Time: Aug 21, 2022 03:48 PM Reporting Lab: [facility] [address] Performing Lab: [facility] [address] [place] [facility] BASIC METABOLIC PANEL+MG SODIUM [MOLES/VOLU ME] IN SERUM OR PLASMA 138 mmol/L 136 - 145 03/22 Specimen Type: PLASMA No comment entered. Ordering Provider: ME LEEROY FISH Report Released Date/Time: Aug 21, 2022 03:48 PM Reporting Lab: [facility] [address] Performing Lab: [facility] [address] [place] [facility] BASIC METABOLIC PANEL+MG POTASSIUM [MOLES/VOLU ME] IN SERUM OR PLASMA 4.5 mmol/L 3.5 - 5.1 03/22 Specimen Type: PLASMA No comment entered. Ordering Provider: ME LEEROY FISH Report Released Date/Time: Aug 21, 2022 03:48 PM Reporting Lab: [facility] [address] Performing Lab: [facility] [address] [place] [facility] BASIC METABOLIC PANEL+MG CHLORIDE [MOLES/VOLU ME] IN SERUM OR PLASMA 101 mmol/L 98 - 107 03/22 Specimen Type: PLASMA No comment entered. Ordering Provider: ME LEEROY FISH Report Released Date/Time: Aug 21, 2022 03:48 PM Reporting Lab: [facility] [address] Performing Lab: [facility] [address] [place] [facility] BASIC METABOLIC PANEL+MG CARBON DIOXIDE, TOTAL [MOLES/VOLU ME] IN SERUM OR PLASMA 27 mmol/L 22 - 29 03/22 Specimen Type: PLASMA No comment entered. Ordering Provider: ME LEEROY FISH Report Released Date/Time: Aug 21, 2022 03:48 PM Reporting Lab: [facility] [address] Performing Lab: [facility] [address] [place] [facility] BASIC METABOLIC PANEL+MG CALCIUM [MASS/VOLUM E] IN SERUM OR PLASMA 10.0 mg/dL 8.4 - 10.2 03/22 Specimen Type: PLASMA No comment entered. Ordering Provider: ME LEEROY FISH Report Released Date/Time: Aug 21, 2022 03:48 PM Reporting Lab: [facility] [address] Performing Lab: [facility] [address] [place] [facility] BASIC METABOLIC PANEL+MG MAGNESIUM [MASS/VOLUM E] IN SERUM OR PLASMA 1.9 mg/dL 1.6 - 2.6 03/22 Specimen Type: PLASMA No comment entered. Ordering Provider: ME LEEROY FISH Report Released Date/Time: Aug 21, 2022 03:48 PM Reporting Lab: [facility] [address] Performing Lab: [facility] [address] [place] [facility] BASIC METABOLIC PANEL+MG ANION GAP IN SERUM OR PLASMA 10 mmol/L 5 - 15 03/22 Specimen Type: PLASMA No comment entered. Ordering Provider: ME LEEROY FISH Report Released Date/Time: Aug 21, 2022 03:48 PM Reporting Lab: [facility] [address] Performing Lab: [facility] [address] [place] [facility] BASIC METABOLIC PANEL+MG GLOMERULAR FILTRATION RATE/1.73 SQ M.PREDICTED [VOLUME RATE/AREA] IN SERUM, PLASMA OR BLOOD BY CREATININE- BASED FORMULA (CKD-EPI 2020) 63 60 03/22 Specimen Type: PLASMA No comment entered. Ordering Provider: ME LEEROY FISH Report Released Date/Time: Aug 21, 2022 03:48 PM Reporting Lab: [facility] [address] Performing Lab: [facility] [address] [place] [facility] HEMOGLOBI N A1C HEMOGLOBIN A1C/HEMOGLO BIN.TOTAL [...] December 22, 2021 03:46 PM Reporting Lab: [facility] [address] Performing Lab: [facility] [address] [place] [facility] BASIC METABOLIC PANEL+MG CREATININE [MASS/VOLUM E] IN SERUM OR PLASMA 0.9 mg/dL 0.7 - 1.2 08/18 Specimen Type: PLASMA No comment entered. Ordering Provider: ME LEEROY FISH Report Released Date/Time: December 22, 2021 03:46 PM Reporting Lab: [facility] [address] Performing Lab: [facility] [address] [place] [facility] BASIC METABOLIC PANEL+MG UREA NITROGEN [MASS/VOLUM E] IN SERUM OR PLASMA 12 mg/dL 8 - 26 08/18 Specimen Type: PLASMA No comment entered. Ordering Provider: ME LEEROY FISH Report Released Date/Time: December 22, 2021 03:46 PM Reporting Lab: [facility] [address] Performing Lab: [facility] [address] [place] [facility] BASIC METABOLIC PANEL+MG GLUCOSE [MASS/VOLUM E] IN SERUM OR PLASMA 184 mg/dL 70 - 100 08/18 H Specimen Type: PLASMA No comment entered. Ordering Provider: ME LEEROY FISH Report Released Date/Time: December 22, 2021 03:46 PM Reporting Lab: [facility] [address] Performing Lab: [facility] [address] [place] [facility] BASIC METABOLIC PANEL+MG SODIUM [MOLES/VOLU ME] IN SERUM OR PLASMA 137 mmol/L 136 - 145 08/18 Specimen Type: PLASMA No comment entered. Ordering Provider: ME LEEROY FISH Report Released Date/Time: December 22, 2021 03:46 PM Reporting Lab: [facility] [address] Performing Lab: [facility] [address] [place] [facility] BASIC METABOLIC PANEL+MG POTASSIUM [MOLES/VOLU ME] IN SERUM OR PLASMA 3.9 mmol/L 3.5 - 5.1 08/18 Specimen Type: PLASMA No comment entered. Ordering Provider: ME LEEROY FISH Report Released Date/Time: December 22, 2021 03:46 PM Reporting Lab: [facility] [address] Performing Lab: [facility] [address] [place] [facility] BASIC METABOLIC PANEL+MG CHLORIDE [MOLES/VOLU ME] IN SERUM OR PLASMA 102 mmol/L 98 - 107 08/18 Specimen Type: PLASMA No comment entered. Ordering Provider: ME LEEROY FISH Report Released Date/Time: December 22, 2021 03:46 PM Reporting Lab: [facility] [address] Performing Lab: [facility] [address] [place] [facility] BASIC METABOLIC PANEL+MG CARBON DIOXIDE, TOTAL [MOLES/VOLU ME] IN SERUM OR PLASMA 26 mmol/L 22 - 29 08/18 Specimen Type: PLASMA No comment entered. Ordering Provider: ME LEEROY FISH Report Released Date/Time: December 22, 2021 03:46 PM Reporting Lab: [facility] [address] Performing Lab: [facility] [address] [place] [facility] BASIC METABOLIC PANEL+MG CALCIUM [MASS/VOLUM E] IN SERUM OR PLASMA 9.4 mg/dL 8.4 - 10.2 08/18 Specimen Type: PLASMA No comment entered. Ordering Provider: ME LEEROY FISH Report Released Date/Time: December 22, 2021 03:46 PM Reporting Lab: [facility] [address] Performing Lab: [facility] [address] [place] BASIC METABOLIC PANEL+MG MAGNESIUM [MASS/VOLUM E] IN SERUM OR PLASMA 1.6 mg/dL 1.6 - 2.6 08/18 Specimen Type: PLASMA No comment entered. Ordering Provider: ME LEEROY FISH Report Released Date/Time: December 22, 2021 03:46 PM Reporting Lab: [facility] [address] Performing Lab: [facility] [address] [place] [facility] BASIC METABOLIC PANEL+MG ANION GAP IN SERUM OR PLASMA 9 mmol/L 5 - 15 08/18 Specimen Type: PLASMA No comment entered. Ordering Provider: ME LEEROY FISH Report Released Date/Time: December 22, 2021 03:46 PM Reporting Lab: [facility] [address] Performing Lab: [facility] [address] [place] [facility] BASIC METABOLIC PANEL+MG GLOMERULAR FILTRATION RATE/1.73 SQ M.PREDICTED [VOLUME RATE/AREA] IN SERUM, PLASMA OR BLOOD BY CREATININE- BASED FORMULA (CKD-EPI) 89 60 08/18 Specimen Type: PLASMA No comment entered. Ordering Provider: ME LEEROY FISH Report Released Date/Time: December 22, 2021 03:46 PM Reporting Lab: [facility] [address] Performing Lab: [facility] [address] [facility] Encounters Combined list of: 1) 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 2) Encounters from the Department of Defense facilities going back up to 280 months. Location Location Details Encounter Type Encounter Number Reason For Visit Attending Provider ADM Date DC Date Status Disposition Source [facility] PRO PHONE CALL 21-30 MIN [id number] Diagnos is: ICD-10- CM E11.42 Type 2 diabete s mellitu s with diabeti c polyneu ropathy
KARI BRITO 11/07 [facility] PRO PHONE CALL 11-20 MIN [id number] Diagnos is: ICD-10- CM E11.42 Type 2 diabete s mellitu s with diabeti c polyneu ropathy
NAIDL,KARI 12/07 [facility] Outpatient Encounter [id number] Diagnos is: ICD-10- CM Z77.29 Contact with and exposur e to other [facility]<br/ > JEANINE[facility]JESSICA [facility]27 [facility] Outpatient Encounter [id number] Diagnos is: ICD-10- CM Z77.29 Contact with and exposur e to other [facility]<br/ > JEANINE,MATH [facility]27 [facility] PRO PHONE CALL 11-20 MIN [id number] Diagnos is: ICD-10- CM E11.42 Type 2 diabete s mellitu s with diabeti c polyneu ropathy
NAIDL,KARI 01/06 [facility] Outpatient Encounter [id number] 03/10 [facility] PRO PHONE CALL 11-20 MIN [id number] Diagnos is: ICD-10- CM E11.42 Type 2 diabete s mellitu s with diabeti c polyneu ropathy
NAIDL,KARI 03/14 [facility] OFFICE O/P EST LOW 20-29 MIN [id number] Diagnos is: ICD-10- CM E11.621 Type 2 diabete s mellitu s with foot ulcer<b r/> Rhiannon FISH 03/22 [facility] PRO PHONE CALL 21-30 MIN [id number] Diagnos is: ICD-10- CM E11.42 Type 2 diabete s mellitu s with diabeti c polyneu ropathy
NAIDL,KARI 04/18 [place] [facility] [place] [facility] PRO PHONE CALL 21-30 MIN [id number] Diagnos is: ICD-10- CM E11.42 Type 2 diabete s mellitu s with diabeti c polyneu ropathy
NAIDL,KARI 07/11 [place] [facility] [place] [facility] PHARM ADDL 15 MIN [id number] Diagnos is: ICD-10- CM E11.42 Type 2 diabete s mellitu s with diabeti c polyneu ropathy
NAIDL,KARI 08/29 [place] [facility] [place] [facility] MTMS BY PHARM EST 15 MIN [id number] Diagnos is: ICD-10- CM E11.42 Type 2 diabete s mellitu s with diabeti c polyneu ropathy
AWKER,SOLEDAD L 10/10 [place] [facility] [facility] [place] [facility] Outpatient Encounter [id number] 10/16 [place] [facility] [place] [facility] MTMS BY PHARM EST 15 MIN [id number] Diagnos is: ICD-10- CM E11.621 Type 2 diabete s mellitu s with foot ulcer<b r/> NAIDL,KARI 11/06 [facility] [place] [facility] MTMS BY PHARM ADDL 15 MIN [id number] Diagnos is: ICD-10- CM E11.42 Type 2 diabete s mellitu s with diabeti c polyneu ropathy
NAIDL,KARI 11/22 [place] [place] [facility] MTMS BY PHARM ADDL 15 MIN [id number] Diagnos is: ICD-10- CM E11.42 Type 2 diabete s mellitu s with diabeti c polyneu ropathy
NAIDL,KARI 01/17 [place] [facility] [place] [facility] Out[place] Encounter [id number] Diagnos is: ICD-10- CM E11.42 Type 2 diabete s mellitu s with diabeti c polyneu ropathy
MILAGRO TONEY 01/18 [place] [facility] [place] [facility] QNHP OL DIG ASSMT&MGMT 5-10 [id number] Diagnos is: ICD-10- CM E11.42 Type 2 diabete s mellitu s with diabeti c polyneu ropathy
MOE CHOWDHURY 01/18 [place] [facility] [place] [facility] MTMS BY PHARM EST 15 MIN [id number] Diagnos is: ICD-10- CM E11.42 Type 2 diabete s mellitu s with diabeti c polyneu ropathy
NAIDL,KARI 02/21 [place] [facility] [place] [facility] Out[place] Encounter [id number] RORY CAPPS 02/26 [place] [facility] [place] [facility] Out[facility] Encounter [id number] 03/14 [facility] [place] [facility] QNHP OL DIG ASSMT&MGMT 11-20 [id number] Diagnos is: ICD-10- CM E11.42 Type 2 diabete s mellitu s with diabeti c polyneu ropathy
NAIDL,KARI 03/27 [place] [facility] [place] [facility] Out[place] Encounter [id number] 04/16 [place] [facility] [place] [facility] MTMS BY PHARM EST 15 MIN [id number] Diagnos is: ICD-10- CM E11.42 Type 2 diabete s mellitu s with diabeti c polyneu ropathy
NAIDL,KARI 04/26 [place] [facility] Social History Combined list of available smoking, tobacco, and other social history from Department of Defense and [facility] facilities. Social History Type Response Date Comment Sourc e Tobacco smoking status NHIS [facility] FORMER [facility]ER [facility] of [facility] History of tobacco use VA-TOBACCO FORMER USER 05/03/2021 [facility] History of tobacco use VA-TOBACCO FORMER USER 04/21/2020 [facility] History of tobacco use FORMER TOBACCO US E >1Y <7Y 04/03/2018 [facility] History of tobacco use CURRENT TOBACCO USER 03/09/2007 [facility] Plan of Care List of future care activities from [facility] facilities. Additional future care activities may be listed in the Assessment and Plan section. Date/Time Care Activity Care Activity Detail Facili ty 05/17/2024 AMBULATORY - NONE AMBULATORY - NONE [facility] 05/17/2024 AMBULATORY - MEDICINE AMBULATORY - MEDICI [facility] 06/11/2024 AMBULATORY - NONE AMBULATORY - NONE [facility] 04/17/2024 Laboratory - Chemistry Order BAS IC METABOLIC PANEL+MG PLASMA SP ONCE [facility] 04/17/2024 Laboratory - Chemistry Order CBC and DIFF BLOOD SP ONCE [facility] 04/17/2024 Laboratory - Chemistry Order HEM OGLOBIN A1C BLOOD SP ONCE [facility] Advance Directives List of completed, amended, or rescinded Advance Directives on record at [facility] facilities. An actual copy of the Directive is not included. Date Advance Directive Provider Source 06/22/2021 ADVANCE DIRECTIVE DISCUSSION ALLYSON GRAF [facility] 06/22/2021 ADVANCE DIRECTIVE ALLYSON GRAF [facility] 03/09/2007 ADVANCE DIRECTIVE SOLEDAD WOLFF [facility]
== END 2024-05-07 11:22 | disposition home or self-care (01) ==
LOC: WOUND 11:21
PROVIDERS: Visit Provider Nurse Practitioner Family
DX: E11.621 Type 2 diabetes mellitus with foot ulcer (principal); L97.512 Non-pressure chronic ulcer of other part of right foot with fat layer exposed; I89.0 Lymphedema, not elsewhere classified; Z79.84 Long term (current) use of oral hypoglycemic drugs; Z79.85 Long-term (current) use of injectable non-insulin antidiabetic drugs
CPT/HCPCS: 15275; Q4151; Q4201

== ENCOUNTER 2024-05-14 09:56 | Outpatient (CLI) | payer MEDICARE, BC, SELFPAY ==
--- OUTSIDE RECORDS SUMMARY | 2024-05-14 10:00 | XMS_ITS | Continuity of Care Document ---
Author Name [facility] Organization [facility] Care Team Providers Care Leasing Sales Consultant Name Role Phone [facility] Unavailable Unavailable Problems Combined list of problems from Department of Defense and Veterans Affairs facilities. It does not include entries that were removed or entered in error. Problem Status Onset Date Problem Type Date of Resolution Comments Source Exposure to potentially hazardous substance ([facility] [id number]) Active 10/05/19 24 Condition Oct 05, 2023 Entered By: VIJI VIVAS Comment: [facility] Documentation Initiative [facility] Depressive Disorder NOS * (ICD-9-CM 311./300.4) Active Condition [facility] Diabetes mellitus (SNOMED CT 34196617) Active Condition [facility] Diabetic neuropathy Active Condition [facility] Foot Pain (ICD-9-CM 719.47) Active Condition Aug 26 10 Entered By: MALINA WORLEY Comment: left 5th metatarsal fracture [facility] History of amputation of lesser toe Active Condition [facility] Hyperlipidemia (SNOMED CT 27817785) Active Condition [facility] Hyperuricemia Active Condition [facility] Osteopenia Active Condition [facility] Other Iatrogenic Hypotension Active Condition [facility] Personal History of Alcoholism (ICD-9-CM V11.3) Active Condition [facility] Tobacco user (SNOMED CT 168239815) Active Condition [facility] Diagnosis: ICD-10-CM E11.42 Type 2 diabetes mellitus with diabetic polyneuropathy Active Diagnosis [facility] Diana [facility] Diagnosis: ICD-10-CM E11.621 Type 2 diabetes mellitus with foot ulcer Active Diagnosis [facility] Diagnosis: ICD-10-CM Z77.29 Contact with and exposure to other hazardous substances Active Diagnosis [facility] Medications Combined list of outpatient medications [...] DAY ORAL ACTIVE ABE [facility] ASPIRIN 81MG TAB,EC TAKE ONE TABLET BY MOUTH EVERY DAY ORAL ACTIVE ANSMYRAAZB ER A 2006 [facility] ATORVASTATI N [place] 40MG TAB TAKE ONE TABLET BY MOUTH EVERY DAY FOR CHOLESTE ROL ORAL ACTIVE 04/18/2025 [id number] 4 NAIDL,TOD D 2023 90 [facility] ATORVASTATI N CA 40MG TAB TAKE ONE TABLET BY MOUTH EVERY DAY FOR CHOLESTE ROL ORAL DISCONT INUED 04/11/2024 [id number] 4 CHARLEE FISH A 2022 90 [facility] ATORVASTATI N [place] 40MG TAB TAKE ONE TABLET BY MOUTH EVERY DAY FOR CHOLESTE ROL ORAL DISCONT INUED 07/15/2023 [id number] 3 NAIDL,TOD D 2022 90 [facility] CHOLECALCIF QUINTIN TAB TAKE 5000 UNITS BY MOUTH EVERY DAY ORAL ACTIVE ABE CHARLEE A [address] [facility] COENZYME Q10 CAP/TAB TAKE 1 CAPSULE BY MOUTH EVERY DAY ORAL ACTIVE CHARLEE FISH A 2022 [facility] CYANOCOBALA MIN 1000MCG TAB TAKE ONE TABLET BY MOUTH EVERY DAY ORAL ACTIVE NAIDL,TOD D 2021 [facility] DICLOFENAC NA 1% GEL,TOP APPLY 4 GRAMS TOPICALL Y FOUR TIMES A DAY NEEDED FOR JOINT PAIN TOPICA L 03/22/2024 [id number] 3 CHARLEE FISH A 2022 100 [facility] FINASTERIDE 5MG TAB TAKE ONE TABLET BY MOUTH EVERY DAY FOR PROSTATE ORAL ACTIVE 04/18/2025 [id number] 4 CHARLEE FISH A 2023 90 [facility] FINASTERIDE 5MG TAB TAKE ONE TABLET BY MOUTH EVERY DAY FOR PROSTATE ORAL DISCONT INUED 04/11/2024 [id number] 4 ABE CHARLEE A [address] [facility] FINASTERIDE 5MG TAB TAKE ONE TABLET BY MOUTH EVERY DAY FOR PROSTATE ORAL DISCONT INUED 07/13/2023 [id number] 3 CHARLEE FISH [address] [facility] FISH OIL 1000MG (500MG DHA/EPA) CAP,ORAL TAKE 1 CAPSULE BY MOUTH TWICE A DAY ORAL ACTIVE JEFF CHOUDHARY A 2006 [facility] INSULIN,GLA RGINE-YFGN 100UNIT/ML INJ PEN,3ML INJECT 24 UNITS UNDER THE SKIN EVERY MORNING FOR DIABETES SUBCUT ANEOUS ACTIVE 04/27/2025 [id number] 4 NAIDL,TOD D [address] [facility] INSULIN,GLA RGINE-YFGN 100UNIT/ML INJ PEN,3ML INJECT 24 UNITS UNDER THE SKIN EVERY EVENING FOR DIABETES SUBCUT ANEOUS DISCONT INUED (EDIT) 04/17/2025 [id number] 4 NAIDL,TOD D [address] [facility] INSULIN,GLA RGINE-YFGN 100UNIT/ML INJ PEN,3ML INJECT 24 UNITS UNDER THE SKIN EVERY EVENING FOR DIABETES SUBCUT ANEOUS DISCONT INUED 08/29/2024 [id number] 4 NAIDL,TOD D [address] [facility] INSULIN,GLA RGINE-YFGN 100UNIT/ML INJ PEN,3ML INJECT 22 UNITS UNDER THE SKIN AT BEDTIME FOR DIABETES SUBCUT ANEOUS DISCONT INUED (EDIT) 01/07/2024 [id number] 3 NAIDL,TOD D [address] [facility] LIDOCAINE 4% CREAM,TOP APPLY MODERATE AMOUNT TOPICALL Y THREE TIMES A DAY FOR PAIN TOPICA L 03/22/2024 [id number] 3 CHARLEE FISH [address] [facility] MAGNESIUM OXIDE 400MG TAB TAKE ONE TABLET BY MOUTH EVERY DAY ORAL ACTIVE CHARLEE FISH 2022 [facility] MENTHOL/MET HYL SALICYLATE (10-15%) LOW CONC. CREAM,TOP APPLY THIN LAYER TOPICALL Y THREE TIMES A DAY FOR MUSCLE PAIN TOPICA L 03/22/2024 [id number] 3 CHARLEE FISH [address] [facility] METFORMIN HCL 1000MG TAB TAKE ONE TABLET BY MOUTH TWICE A DAY FOR DIABETES ORAL ACTIVE 07/16/2024 [id number] 4 NAIDL,TOD D [address] [facility] METFORMIN HCL 1000MG TAB TAKE ONE TABLET BY MOUTH TWICE A DAY FOR DIABETES ORAL DISCONT INUED 04/11/2024 [id number] 4 CHARLEE FISH [address] [facility] METFORMIN HCL 1000MG TAB TAKE ONE TABLET BY MOUTH TWICE A DAY FOR DIABETES ORAL DISCONT INUED 07/15/2023 [id number] 3 NAIDL,TOD D [address] [facility] OMEPRAZOLE 20MG CAP,EC TAKE ONE CAPSULE BY MOUTH EVERY DAY ON AN EMPTY STOMACH, AT LEAST 30 MINUTES PRIOR TO A MEAL FOR GERD ORAL 03/22/2024 [id number] 4 CHARLEE FISH [address] [facility] SEMAGLUTIDE 1MG/0.75ML INJ,SOLN,PE N,3ML INJECT 1MG UNDER THE SKIN EVERY WEEK FOR DIABETES SUBCUT ANEOUS ACTIVE 11/07/2024 [id number] 4 NAIDL,TOD D 2023 1 [facility] SEMAGLUTIDE 1MG/0.75ML INJ,SOLN,PE N,3ML INJECT 1MG UNDER THE SKIN EVERY WEEK FOR DIABETES SUBCUT ANEOUS DISCONT INUED 11/08/2023 [id number] 4 NAIDL,TOD D 2022 1 [facility] TAMSULOSIN HCL 0.4MG CAP TAKE ONE CAPSULE BY MOUTH EVERY EVENING ORAL ACTIVE 04/18/2025 [id number] 4 CHARLEE FISH [address] [facility] TAMSULOSIN HCL 0.4MG CAP TAKE ONE CAPSULE BY MOUTH EVERY EVENING ORAL DISCONT INUED 04/13/2024 [id number] 4 CHARLEE FISH [address] [facility] TAMSULOSIN HCL 0.4MG CAP TAKE ONE CAPSULE BY MOUTH EVERY EVENING ORAL DISCONT INUED 04/11/2024 [id number] 3 CHARLEE FISH [address] [facility] TURMERIC CAP/TAB TAKE 500 MG BY MOUTH TWICE A DAY ORAL ACTIVE MATTY POWERS 2018 [facility] Allergies, Adverse Reactions, Alerts Combined list of allergies from Department of Defense and Veterans Affairs facilities. It does not include entries that were removed or entered in error. Substance Category Reaction Severity Reaction type Status Date Reported Comments Source VANCOMYCIN Propensity to adverse reactions to drug (finding) [place] active 8 [facility] Immunizations Combined list of available immunizations from the Department of Defense and Veterans Affairs facilities. Immunization Series Date Given Administered By Site Reaction Lot Number CVX Code Drug Senior Market Research Analyst Status Comments Source ZOSTER RECOMBINANT [address] [facility] INFLUENZA, INJECTABLE, QUADRIVALENT, PRESERVATIVE FREE [address] [facility] ZOSTER RECOMBINANT [address] [facility] INFLUENZA, HIGH-DOSE, QUADRIVALENT [address] [facility] INFLUENZA, SEASONAL, INJECTABLE, PRESERVATIVE FREE [address] [facility] INFLUENZA, INJECTABLE, QUADRIVALENT, PRESERVATIVE FREE [address] [facility] INFLUENZA, INJECTABLE, QUADRIVALENT, PRESERVATIVE FREE [address] [facility] TDAP 2015 115 complet ed [place] [facility] PNEUMOCOCCAL CONJUGATE PCV [address] [facility] TD (ADULT), 5 LF TETANUS TOXOID, PRESERVATIVE FREE, ADSORBED [address] [facility] INFLUENZA, INJECTABLE, QUADRIVALENT, PRESERVATIVE FREE [address] [facility] PNEUMOCOCCAL POLYSACCHARID E PPV23 2010 33 complet [facility] INFLUENZA, UNSPECIFIED FORMULATION 2006 88 complet [facility] PNEUMOCOCCAL, UNSPECIFIED FORMULATION 2006 109 complet [facility] TD(ADULT) UNSPECIFIED FORMULATION 2006 NONE 139 complet [facility] TETANUS TOXOID, UNSPECIFIED FORMULATION 2006 NONE 112 complet [facility] Results Combined list of recent chemistry, [...] Aug 21, 2022 03:48 PM Reporting Lab: [facility] [address] Performing Lab: [facility] [address] [facility] BASIC METABOLIC PANEL+MG CREATININE [MASS/VOLUM E] IN SERUM OR PLASMA 1.2 mg/dL 0.7 - 1.2 03/22 Specimen Type: PLASMA No comment entered. Ordering Provider: ME LEEROY FISH Report Released Date/Time: Aug 21, 2022 03:48 PM Reporting Lab: [facility] [address] Performing Lab: [facility] [address] [facility] BASIC METABOLIC PANEL+MG UREA NITROGEN [MASS/VOLUM E] IN SERUM OR PLASMA 15 mg/dL 8 - 26 03/22 Specimen Type: PLASMA No comment entered. Ordering Provider: ME LEEROY FISH Report Released Date/Time: Aug 21, 2022 03:48 PM Reporting Lab: [facility] [address] Performing Lab: [facility] [address] [place] [facility] BASIC METABOLIC PANEL+MG GLUCOSE [MASS/VOLUM E] IN SERUM OR PLASMA 145 mg/dL 70 - 100 03/22 H Specimen Type: PLASMA No comment entered. Ordering Provider: ME LEEROY FISH Report Released Date/Time: Aug 21, 2022 03:48 PM Reporting Lab: [facility] [address] Performing Lab: [facility] [address] [place] [facility] BASIC METABOLIC PANEL+MG SODIUM [MOLES/VOLU ME] IN SERUM OR PLASMA 138 mmol/L 136 - 145 03/22 Specimen Type: PLASMA No comment entered. Ordering Provider: ME LEEROY FISH Report Released Date/Time: Aug 21, 2022 03:48 PM Reporting Lab: [facility] [address] Performing Lab: [facility] [address] [place] [facility] BASIC METABOLIC PANEL+MG POTASSIUM [MOLES/VOLU ME] IN SERUM OR PLASMA 4.5 mmol/L 3.5 - 5.1 03/22 Specimen Type: PLASMA No comment entered. Ordering Provider: ME LEEROY FISH Report Released Date/Time: Aug 21, 2022 03:48 PM Reporting Lab: [facility] [address] Performing Lab: [facility] [address] [place] [facility] BASIC METABOLIC PANEL+MG CHLORIDE [MOLES/VOLU ME] IN SERUM OR PLASMA 101 mmol/L 98 - 107 03/22 Specimen Type: PLASMA No comment entered. Ordering Provider: ME LEEROY FISH Report Released Date/Time: Aug 21, 2022 03:48 PM Reporting Lab: [facility] [address] Performing Lab: [facility] [address] [place] [facility] BASIC METABOLIC PANEL+MG CARBON DIOXIDE, TOTAL [MOLES/VOLU ME] IN SERUM OR PLASMA 27 mmol/L 22 - 29 03/22 Specimen Type: PLASMA No comment entered. Ordering Provider: ME LEEROY FISH Report Released Date/Time: Aug 21, 2022 03:48 PM Reporting Lab: [facility] [address] Performing Lab: [facility] [address] [place] [facility] BASIC METABOLIC PANEL+MG CALCIUM [MASS/VOLUM E] IN SERUM OR PLASMA 10.0 mg/dL 8.4 - 10.2 03/22 Specimen Type: PLASMA No comment entered. Ordering Provider: ME LEEROY FISH Report Released Date/Time: Aug 21, 2022 03:48 PM Reporting Lab: [facility] [address] Performing Lab: [facility] [address] [place] [facility] BASIC METABOLIC PANEL+MG MAGNESIUM [MASS/VOLUM E] IN SERUM OR PLASMA 1.9 mg/dL 1.6 - 2.6 03/22 Specimen Type: PLASMA No comment entered. Ordering Provider: ME LEEROY FISH Report Released Date/Time: Aug 21, 2022 03:48 PM Reporting Lab: [facility] [address] Performing Lab: [facility] [address] [place] [facility] BASIC METABOLIC PANEL+MG ANION GAP IN SERUM OR PLASMA 10 mmol/L 5 - 15 03/22 Specimen Type: PLASMA No comment entered. Ordering Provider: ME LEEROY FISH Report Released Date/Time: Aug 21, 2022 03:48 PM Reporting Lab: [facility] [address] Performing Lab: [facility] [address] [place] [facility] BASIC METABOLIC PANEL+MG GLOMERULAR FILTRATION RATE/1.73 SQ M.PREDICTED [VOLUME RATE/AREA] IN SERUM, PLASMA OR BLOOD BY CREATININE- BASED FORMULA (CKD-EPI 2020) 63 60 03/22 Specimen Type: PLASMA No comment entered. Ordering Provider: ME LEEROY FISH Report Released Date/Time: Aug 21, 2022 03:48 PM Reporting Lab: [facility] [address] Performing Lab: [facility] [address] [place] [facility] HEMOGLOBI N A1C HEMOGLOBIN A1C/HEMOGLO [...] [email or web address] Ordering Provider: ME LEEROY FSIH Report Released Date/Time: December 22, 2021 03:46 PM Reporting Lab: [facility] [address] Performing Lab: [facility] [address] [place] [facility] BASIC METABOLIC PANEL+MG CREATININE [MASS/VOLUM E] IN SERUM OR PLASMA 0.9 mg/dL 0.7 - 1.2 08/18 Specimen Type: PLASMA No comment entered. Ordering Provider: ME LEEROY FISH Report Released Date/Time: December 22, 2021 03:46 PM Reporting Lab: [facility] [address] Performing Lab: [facility] [address] [place] [facility] BASIC METABOLIC PANEL+MG UREA NITROGEN [MASS/VOLUM E] IN SERUM OR PLASMA 12 mg/dL 8 - 26 08/18 Specimen Type: PLASMA No comment entered. Ordering Provider: ME LEEROY FISH Report Released Date/Time: December 22, 2021 03:46 PM Reporting Lab: [facility] [address] Performing Lab: [facility] [address] [place] [facility] BASIC METABOLIC PANEL+MG GLUCOSE [MASS/VOLUM E] IN SERUM OR PLASMA 184 mg/dL 70 - 100 08/18 H Specimen Type: PLASMA No comment entered. Ordering Provider: ME LEEROY FISH Report Released Date/Time: December 22, 2021 03:46 PM Reporting Lab: [facility] [address] Performing Lab: [facility] [address] [place] [facility] BASIC METABOLIC PANEL+MG SODIUM [MOLES/VOLU ME] IN SERUM OR PLASMA 137 mmol/L 136 - 145 08/18 Specimen Type: PLASMA No comment entered. Ordering Provider: ME LEEROY FISH Report Released Date/Time: December 22, 2021 03:46 PM Reporting Lab: [facility] [address] Performing Lab: [facility] [address] [place] [facility] BASIC METABOLIC PANEL+MG POTASSIUM [MOLES/VOLU ME] IN SERUM OR PLASMA 3.9 mmol/L 3.5 - 5.1 08/18 Specimen Type: PLASMA No comment entered. Ordering Provider: ME LEEROY FISH Report Released Date/Time: December 22, 2021 03:46 PM Reporting Lab: [facility] [address] Performing Lab: [facility] [address] [place] [facility] BASIC METABOLIC PANEL+MG CHLORIDE [MOLES/VOLU ME] IN SERUM OR PLASMA 102 mmol/L 98 - 107 08/18 Specimen Type: PLASMA No comment entered. Ordering Provider: ME LEEROY FISH Report Released Date/Time: December 22, 2021 03:46 PM Reporting Lab: [facility] [address] Performing Lab: [facility] [address] [place] [facility] BASIC METABOLIC PANEL+MG CARBON DIOXIDE, TOTAL [MOLES/VOLU ME] IN SERUM OR PLASMA 26 mmol/L 22 - 29 08/18 Specimen Type: PLASMA No comment entered. Ordering Provider: ME LEEROY FISH Report Released Date/Time: December 22, 2021 03:46 PM Reporting Lab: [facility] [address] Performing Lab: [facility] [address] [place] [facility] BASIC METABOLIC PANEL+MG CALCIUM [MASS/VOLUM E] IN SERUM OR PLASMA 9.4 mg/dL 8.4 - 10.2 08/18 Specimen Type: PLASMA No comment entered. Ordering Provider: ME LEEROY FISH Report Released Date/Time: December 22, 2021 03:46 PM Reporting Lab: [facility] [address] Performing Lab: [facility] [address] [place] [facility] BASIC METABOLIC PANEL+MG MAGNESIUM [MASS/VOLUM E] IN SERUM OR PLASMA 1.6 mg/dL 1.6 - 2.6 08/18 Specimen Type: PLASMA No comment entered. Ordering Provider: ME LEEROY FISH Report Released Date/Time: December 22, 2021 03:46 PM Reporting Lab: [facility] [address] Performing Lab: [facility] [address] [place] [facility] BASIC METABOLIC PANEL+MG ANION GAP IN SERUM OR PLASMA 9 mmol/L 5 - 15 08/18 Specimen Type: PLASMA No comment entered. Ordering Provider: ME LEEROY FISH Report Released Date/Time: December 22, 2021 03:46 PM Reporting Lab: [facility] [address] Performing Lab: [facility] [address] [place] [facility] BASIC METABOLIC PANEL+MG GLOMERULAR FILTRATION RATE/1.73 SQ M.PREDICTED [VOLUME RATE/AREA] IN SERUM, PLASMA OR BLOOD BY CREATININE- BASED FORMULA (CKD-EPI) 89 60 08/18 Specimen Type: PLASMA No comment entered. Ordering Provider: ME LEEROY FISH Report Released Date/Time: December 22, 2021 03:46 PM Reporting Lab: [facility] [address] Performing Lab: [facility] [address] [place] [facility] Encounters Combined list of: 1) 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 2) Encounters from the Department of Defense facilities going back up to 280 months. Location Location Details Encounter Type Encounter Number Reason For Visit Attending Provider ADM Date DC Date Status Disposition Source [place] [facility] PRO PHONE CALL 21-30 MIN [id number] Diagnos is: ICD-10- CM E11.42 Type 2 diabete s mellitu s with diabeti c polyneu ropathy
KARI BRITO 11/07 [facility] PRO PHONE CALL 11-20 MIN [id number] Diagnos is: ICD-10- CM E11.42 Type 2 diabete s mellitu s with diabeti c polyneu ropathy
NAIDL,KARI 12/07 [facility] Outpatient Encounter [id number] Diagnos is: ICD-10- CM Z77.29 Contact with and exposur e to other [facility]<br/ > [facility]27 [facility] Outpatient Encounter [id number] Diagnos is: ICD-10- CM Z77.29 Contact with and exposur e to other [facility]ardo [facility] substan [facility]<br/ > JEANINE[facility]MATH [facility] 12/27 [facility] IS [facility] PRO PHONE CALL 11-20 MIN [id number] Diagnos is: ICD-10- CM E11.42 Type 2 diabete s mellitu s with diabeti c polyneu ropathy
NAIDL,KARI 01/06 [facility] Outpatient Encounter [id number] 03/10 [facility] PRO PHONE CALL 11-20 MIN [id number] Diagnos is: ICD-10- CM E11.42 Type 2 diabete s mellitu s with diabeti c polyneu ropathy
NAIDL,KARI 03/14 [facility] OFFICE O/P EST LOW 20-29 MIN [id number] Diagnos is: ICD-10- CM E11.621 Type 2 diabete s mellitu s with foot ulcer<b r/> Rhiannon FISH 03/22 [facility] PRO PHONE CALL 21-30 MIN [id number] Diagnos is: ICD-10- CM E11.42 Type 2 diabete s mellitu s with diabeti c polyneu ropathy
NAIDL,KARI 04/18 [place] [facility] [place] [facility] PRO PHONE CALL 21-30 MIN [id number] Diagnos is: ICD-10- CM E11.42 Type 2 diabete s mellitu s with diabeti c polyneu ropathy
NAIDL,KRAI 07/11 [place] [facility] [facility] [place] [facility] PHARM ADDL 15 MIN [id number] Diagnos is: ICD-10- CM E11.42 Type 2 diabete s mellitu s with diabeti c polyneu ropathy
NAIDL,KARI 08/29 [place] [facility] [place] [facility] MTMS BY PHARM EST 15 MIN [id number] Diagnos is: ICD-10- CM E11.42 Type 2 diabete s mellitu s with diabeti c polyneu ropathy
AWKER,SOLEDAD L 10/10 [place] [facility] [place] [facility] Outpatient Encounter [id number] 10/16 [place] [facility] [place] [facility] MTMS BY PHARM EST 15 MIN [id number] Diagnos is: ICD-10- CM E11.621 Type 2 diabete s mellitu s with foot ulcer<b r/> NAIDL,KARI 11/06 [place] [facility] [place] [facility] MT[facility] BY PHARM ADDL 15 MIN [id number] Diagnos is: ICD-10- CM E11.42 Type 2 diabete s mellitu s with diabeti c polyneu ropathy
NAIDL,KARI 11/22 [place] [facility] [facility] [place] [facility] MTMS BY PHARM ADDL 15 MIN [id number] Diagnos is: ICD-10- CM E11.42 Type 2 diabete s mellitu s with diabeti c polyneu ropathy
NAIDL,KARI 01/17 [place] [facility] [place] [facility] Outpatient Encounter [id number] Diagnos is: ICD-10- CM E11.42 Type 2 diabete s mellitu s with diabeti c polyneu ropathy
MILAGRO TONEY 01/18 [place] [facility] [place] [facility] QNHP OL DIG ASSMT&MGMT 5-10 [id number] Diagnos is: ICD-10- CM E11.42 Type 2 diabete s mellitu s with diabeti c polyneu ropathy
MOE CHOWDHURY 01/18 [place] [facility] [place] [facility] MTMS BY PHARM EST 15 MIN [id number] Diagnos is: ICD-10- CM E11.42 Type 2 diabete s mellitu s with diabeti c polyneu ropathy
NAIDL,KARI 02/21 [place] [facility] [place] [facility] Outpatient Encounter [id number] RORY CAPPS 02/26 [place] [facility] [place] [facility] Outpatient Encounter [id number] 03/14 [facility] [place] [facility] QNHP OL DIG ASSMT&MGMT 11-20 [id number] Diagnos is: ICD-10- CM E11.42 Type 2 diabete s mellitu s with diabeti c polyneu ropathy
NAIDL,KARI 03/27 [place] [facility] [place] [facility] Outpatient Encounter [id number] 04/16 [place] [facility] [place] [facility] MTMS BY PHARM EST 15 MIN [id number] Diagnos is: ICD-10- CM E11.42 Type 2 diabete s mellitu s with diabeti c polyneu ropathy
NAIDL,KARI 04/26 [place] [facility] Social History Combined list of available smoking, tobacco, and other social history from [facility] [employer] and [facility] facilities. Social History Type Response Date Comment Sourc e Tobacco smoking status [facility]IS [facility] of [facility] History of tobacco use [facility]CO FORMER USER 05/03/2021 [facility] History of tobacco use VA-TOBACCO FORMER USER 04/21/2020 [facility] History of tobacco use FORMER TOBACCO US E >1Y <7Y 04/03/2018 [facility] History of tobacco use CURRENT TOBACCO USER 03/09/2007 [facility] Plan of Care List of future care activities from [facility] facilities. Additional future care activities may be listed in the Assessment and Plan section. Date/Time Care Activity Care Activity Detail Facili ty 05/17/2024 AMBULATORY - NONE AMBULATORY - NONE [facility] 05/17/2024 AMBULATORY - MEDICINE AMBULATORY - MEDICI [facility] 06/11/2024 AMBULATORY - NONE AMBULATORY - NONE [facility] 04/17/2024 Laboratory - Chemistry Order BAS IC METABOLIC PANEL+MG PLASMA SP ONCE [facility] 04/17/2024 Laboratory - Chemistry Order CBC and DIFF BLOOD SP ONCE [facility] 04/17/2024 Laboratory - Chemistry Order HEM OGLOBIN A1C BLOOD [facility] Advance Directives List of completed, amended, or rescinded Advance Directives on record at [facility] facilities. An actual copy of the Directive is not included. Date Advance Directive Provider Source 06/22/2021 ADVANCE DIRECTIVE DISCUSSION ALLYSON GRAF [facility] 06/22/2021 ADVANCE DIRECTIVE ALLYSON GRAF [facility] 03/09/2007 ADVANCE DIRECTIVE SOLEDAD WOLFF [facility]
--- OUTSIDE RECORDS SUMMARY | 2024-05-14 10:01 | XMS_ITS | Referral Summary ---
Author Organization [facility] Address [address] [place] [id number] Care Team Providers Care Lead Java J2Ee Developer Name Role Phone Post, Dave Wakefield [...] Comments Blood Pressure 148/85 06/26/2018 5:58 PM TILE EDGER Pulse 90 06/26/2018 5:58 PM TILE EDGER Temperature 36.6 ??C (97.8 ??F) 06/26/2018 5:58 PM CS T Respiratory Rate 18 06/26/2018 5:58 PM TILE EDGER Oxygen Saturation 95% 06/26/2018 7:00 PM TILE EDGER Inhaled Oxygen Concentration - - Weight 112 kg (247 lb) 06/26/2018 5:58 PM TILE EDGER Height 180.3 cm (5' 11) 06/26/2018 5:58 PM TILE EDGER Body Mass Index 34.45 06/26/2018 5:58 PM TILE EDGER Plan of Treatment Not on file Care Teams Lead Java J2Ee Developer Relationship Specialty Start Date End Date Post, Dave Wakefield PCP - General Internal Medicine 06/26/18
--- OUTSIDE RECORDS SUMMARY | 2024-05-14 10:01 | XMS_ITS | Clinical Summary ---
Author Organization [facility] Address [place], [place] [address] Care Team Providers Care Linen Manager Name Role Phone Post, Dave Velazquez MD Primary Care Provider Moshe Enciso MD Unavailable [phone] Arie Justin MD Unavailable [phone] [facility], Met Unavailable Murali Hoover DPM Unavailable Allergies No known active allergies Medications Medication [...] diabetes, hypertension and/or CHF. Please look for [facility] Care Goal Contract in Chart Review/ Letters and support this effort. Please direct questions to Care Guide Pamella Brennan Phone number [phone]. Alcohol abuse 06/02/2010 03/26/2019 Overview (06/02/2010): Sober [...] 36.7 ??C (98 ??F) 06/29/2022 8:43 AM SHREDDER TENDER PEAT Respiratory Rate 18 06/29/2022 8:43 AM SHREDDER TENDER PEAT Oxygen Saturation 96% 07/21/2023 1:34 PM SHREDDER TENDER PEAT Inhaled Oxygen Concentration - - Weight 107 kg (236 lb) 11/03/2023 11:13 AM CDT w ith shoes Height 180.3 cm (5' 10.98) 07/21/2023 1:[address] Body Mass Index 32.93 07/21/2023 1:34 PM SHREDDER TENDER PEAT Plan of Treatment Health Maintenance Due Date [...] 07/16/2020, 04/21/2020 Medical Devices Implanted Type Area Pencil Sorter Device Identifier Shelf Expiration Date Model / Serial / Lot [id number] - [id number] Implanted:Qty: 1 on 09/20/2021 at [facility] Right: Foot [employer] AR-8725-4 4H / / Description:COMPRESSION FT S CREWS CANNULATED, 2.5 MICRO 44MM LOAD 4 7 [id number] Kristina-1530p - [id number] Implanted:Qty: 1 on 09/20/2021 at [facility] Right: Foot [employer] 03/30/2025 AR-1530P- CP / / [id number] Description:FOREFOOT INTERNA L BRACE IMPLANT SYSTEM, PEEK Screw 4.21s40aj Bio Compositetenodesis Disp New Patient Escort Pk - [id number] Implanted:Qty: 1 on 09/20/2021 at [facility] Right: Foot [employer] 08/30/2022 AR-1547CD S / / [id number] Ancr Sut 1.3mm Dx Fibertak Suturetape 2 Ndl 26.2mm 08/01 Cir - [id number] Implanted:Qty: 1 on 09/20/2021 at [facility] Right: Foot [employer] 06/29/2026 AR-8990ST / / [id number] Explanted Type Area Pencil Sorter Device Identifier Shelf Expiration Date Model / Serial / Lot Wire Kirs .[id number] Smooth6/Pk Depuy/Héctor - [id number] Explanted:Qty: 1 on 09/20/2021 at [facility] Right: Foot [employer] / / Description:LOAD 4 8 [id number] [facility]8737-40 - [id number] Explanted:Qty: 1 on 09/20/2021 at [facility] Right: Foot [employer] PR-8737-40 / / Description:2.5 MICRO COMPRE SSION FT DRILLS AND DISPOSABLES, GUIDEWIRE W TROCAR TIP, THREADED, 0.34 IN (.86MM) LOAD 4 7 [id number] Procedures Procedure Name Priority Date/Time Associated Diagnosis Comments CT CHEST PE STUDY Routine 05/10/2022 7:5 0 PM CDT OCCULT BLOOD IFOBT STOOL Routine 07/03/2013 7:00 PM SHREDDER TENDER PEAT Screening for colon cancer from Last 3 [...] Occult Blood Stool (IFOBT) (07/03/2013 7:00 PM SHREDDER TENDER PEAT) STOOL BLOOD ,IFOBT Negative Negative, Invalid 07/04/2013 3:03 PM SHREDDER TENDER PEAT [facility] Stool specimen (specimen) STOOL SPECIMEN / Unknown Non-Blood / Unknown 07/03/2013 7:00 PM SHREDDER TENDER PEAT 07/04/2013 2:39 PM SHREDDER TENDER PEAT Dave Garrett MD LABORATORY Performing Organization Address City/State/[facility] Co de Phone Number [facility] [address] [place], [place] [id number] from Last 3 Months or Most Recently Relevant to Health Maintenance Advance Directives Documents on File Type Date Recorded Patient Spout Liner Expl anation Healthcare Directive 05/21/2021 3:50 PM [...] Code Status Discussion: Reviewed Preferences Care Teams Linen Manager Relationship Specialty Start Date End Date Post, Dave Velazquez MD PCP - General 06/02/10 Moshe Enciso MD [address] [facility] [address] [place], [place] [id number] Endocrinology Endocrinology 01/04/18 [place] [address] [facility] [address] [place] [address] Surgery - Ophthalmology 03/22/18 [facility], [facility] [place] [address] [facility] [address] [place] [address] 06/08/21 Murali Hoover DPM [address] [place], [place] [address] Surgery - Podiatric 01/03/23
--- OUTSIDE RECORDS SUMMARY | 2024-05-14 10:01 | XMS_ITS | Clinical Summary ---
Author Organization [facility] Address [address] [place] [address] Care Team Providers Care Brim Raiser Name Role Phone Post, Dave Wakefield Primary Care Provider [phone] Medications Medication Sig Dispensed Refills Start Date [...] Blood Pressure 148/85 06/26/2018 5:58 PM SENIOR INFORMATION SECURITY ENGINEER Pulse 90 06/26/2018 5:58 PM SENIOR INFORMATION SECURITY ENGINEER Temperature 36.6 ??C (97.8 ??F) 06/26/2018 5:58 PM CS T Respiratory Rate 18 06/26/2018 5:58 PM SENIOR INFORMATION SECURITY ENGINEER Oxygen Saturation 95% 06/26/2018 7:00 PM SENIOR INFORMATION SECURITY ENGINEER Inhaled Oxygen Concentration - - Weight 112 kg (247 lb) 06/26/2018 5:58 PM SENIOR INFORMATION SECURITY ENGINEER Height 180.3 cm (5' 11) 06/26/2018 5:58 PM SENIOR INFORMATION SECURITY ENGINEER Body Mass Index 34.45 06/26/2018 5:58 PM SENIOR INFORMATION SECURITY ENGINEER Plan of Treatment Not on file Care Teams Brim Raiser Relationship Specialty Start Date End Date Post, Dave Wakefield PCP - General Internal Medicine 06/26/18
== END 2024-05-14 09:57 | disposition home or self-care (01) ==
LOC: WOUND 09:56
PROVIDERS: Visit Provider Nurse Practitioner Family
DX: E11.621 Type 2 diabetes mellitus with foot ulcer (principal); L97.512 Non-pressure chronic ulcer of other part of right foot with fat layer exposed; I89.0 Lymphedema, not elsewhere classified; Z79.84 Long term (current) use of oral hypoglycemic drugs; Z79.85 Long-term (current) use of injectable non-insulin antidiabetic drugs
CPT/HCPCS: 97597

== ENCOUNTER 2024-05-21 11:19 | Outpatient (CLI) | payer MEDICARE, BC, SELFPAY ==
--- OUTSIDE RECORDS SUMMARY | 2024-05-21 11:23 | XMS_ITS | Continuity of Care Document ---
Author Name [facility] Organization [facility] Care Team Providers Care Top Ironer Name Role Phone [facility] Unavailable Unavailable Problems Combined list of problems from Department of Defense and Veterans Affairs facilities. It does not include entries that were removed or entered in error. Problem Status Onset Date Problem Type Date of Resolution Comments Source Exposure to potentially hazardous substance ([facility] [id number]) Active 10/05/19 24 Condition Oct 05, 2023 Entered By: VIJI VIVAS Comment: [facility] Documentation Initiative [facility] Depressive Disorder NOS * (ICD-9-CM 311./300.4) Active Condition [facility] Diabetes mellitus (SNOMED CT 82266778) Active Condition [facility] Diabetic neuropathy Active Condition [facility] Foot Pain (ICD-9-CM 719.47) Active Condition Aug 26 10 Entered By: MALINA WORLEY Comment: left 5th metatarsal fracture [facility] History of amputation of lesser toe Active Condition [facility] Hyperlipidemia (SNOMED CT 20426756) Active Condition [facility] Hyperuricemia Active Condition [facility] Osteopenia Active Condition [facility] Other Iatrogenic Hypotension Active Condition [facility] Personal History of Alcoholism (ICD-9-CM V11.3) Active Condition [facility] Tobacco user (SNOMED CT 988366854) Active Condition [facility] Diagnosis: ICD-10-CM E11.42 Type 2 diabetes mellitus with diabetic polyneuropathy Active Diagnosis [facility] Diana [facility] Diagnosis: ICD-10-CM E11.621 Type 2 diabetes mellitus with foot ulcer Active Diagnosis [facility] Diagnosis: ICD-10-CM Z77.29 Contact with [...] DAY ORAL ACTIVE ABE CHARLEE A 2022 [facility] ASPIRIN 81MG TAB,EC TAKE ONE TABLET BY MOUTH EVERY DAY ORAL ACTIVE ANSMYRAAZB ER A 2006 [facility] ATORVASTATI N [place] 40MG TAB TAKE ONE TABLET BY MOUTH EVERY DAY FOR CHOLESTE ROL ORAL ACTIVE 04/18/2025 [id number] 4 NAIDL,TOD D 2023 90 [facility] ATORVASTATI N [place] 40MG TAB TAKE ONE TABLET BY MOUTH EVERY DAY FOR CHOLESTE ROL ORAL DISCONT INUED 04/11/2024 [id number] 4 CHARLEE FISH A 2022 90 [facility] ATORVASTATI N CA 40MG TAB TAKE ONE TABLET BY MOUTH EVERY DAY FOR CHOLESTE ROL ORAL DISCONT INUED 07/15/2023 [id number] 3 NAIDL,TOD D 2022 90 [facility] CHOLECALCIF QUINTIN TAB TAKE 5000 UNITS BY MOUTH EVERY DAY ORAL ACTIVE ABE CHARLEE A 2022 [facility] COENZYME Q10 CAP/TAB TAKE 1 CAPSULE BY MOUTH EVERY DAY ORAL ACTIVE CHARLEE FISH A 2022 [facility] CYANOCOBALA MIN 1000MCG TAB TAKE ONE TABLET BY MOUTH EVERY DAY ORAL ACTIVE NAIDL,TOD D 2021 [facility] DICLOFENAC NA 1% GEL,TOP APPLY 4 GRAMS TOPICALL Y FOUR TIMES A DAY NEEDED FOR JOINT PAIN TOPICA L 03/22/2024 [id number] 3 CHARLEE FISH A 2022 100 [facility] FINASTERIDE 5MG TAB TAKE ONE TABLET BY MOUTH EVERY DAY FOR PROSTATE ORAL ACTIVE 04/18/2025 [id number] 4 CHARLEE FISH A 2023 90 [facility] FINASTERIDE 5MG TAB TAKE ONE TABLET BY MOUTH EVERY DAY FOR PROSTATE ORAL DISCONT INUED 04/11/2024 [id number] 4 ABE CHARLEE A 2022 90 [facility] FINASTERIDE 5MG TAB TAKE ONE TABLET BY MOUTH EVERY DAY FOR PROSTATE ORAL DISCONT INUED 07/13/2023 [id number] 3 CHARLEE FISH 2021 90 [facility] FISH OIL 1000MG (500MG DHA/EPA) CAP,ORAL TAKE 1 CAPSULE BY MOUTH TWICE A DAY ORAL ACTIVE JEFF CHOUDHARY A 2006 [facility] INSULIN,GLA RGINE-YFGN 100UNIT/ML INJ PEN,3ML INJECT 24 UNITS UNDER THE SKIN EVERY MORNING FOR DIABETES SUBCUT ANEOUS ACTIVE 04/27/2025 [id number] 4 NAIDL,TOD D 2023 5 [facility] INSULIN,GLA RGINE-YFGN 100UNIT/ML INJ PEN,3ML INJECT 24 UNITS UNDER THE SKIN EVERY EVENING FOR DIABETES SUBCUT ANEOUS DISCONT INUED (EDIT) 04/17/2025 [id number] 4 NAIDL,TOD D 2023 5 [facility] INSULIN,GLA RGINE-YFGN 100UNIT/ML INJ PEN,3ML INJECT 24 UNITS UNDER THE SKIN EVERY EVENING FOR DIABETES SUBCUT ANEOUS DISCONT INUED 08/29/2024 [id number] 4 NAIDL,TOD D 2023 5 [facility] INSULIN,GLA RGINE-YFGN 100UNIT/ML INJ PEN,3ML INJECT 22 UNITS UNDER THE SKIN AT BEDTIME FOR DIABETES SUBCUT ANEOUS DISCONT INUED (EDIT) 01/07/2024 [id number] 3 NAIDL,TOD D 2022 5 [facility] LIDOCAINE 4% CREAM,TOP APPLY MODERATE AMOUNT TOPICALL Y THREE TIMES A DAY FOR PAIN TOPICA L 03/22/2024 [id number] 3 CHARLEE FISH 2022 30 [facility] MAGNESIUM OXIDE 400MG TAB TAKE ONE TABLET BY MOUTH EVERY DAY ORAL ACTIVE CHARLEE FISH 2022 [facility] MENTHOL/MET HYL SALICYLATE (10-15%) LOW CONC. CREAM,TOP APPLY THIN LAYER TOPICALL Y THREE TIMES A DAY FOR MUSCLE PAIN TOPICA L 03/22/2024 [id number] 3 CHARLEE FISH 2022 90 [facility] METFORMIN HCL 1000MG TAB TAKE ONE TABLET BY MOUTH TWICE A DAY FOR DIABETES ORAL ACTIVE 07/16/2024 [id number] 4 NAIDL,TOD D 2023 180 [facility] METFORMIN HCL 1000MG TAB TAKE ONE TABLET BY MOUTH TWICE A DAY FOR DIABETES ORAL DISCONT INUED 04/11/2024 [id number] 4 CHARLEE FISH 2022 180 [facility] METFORMIN HCL 1000MG TAB TAKE ONE TABLET BY MOUTH TWICE A DAY FOR DIABETES ORAL DISCONT INUED 07/15/2023 [id number] 3 NAIDL,TOD D 2022 180 [facility] OMEPRAZOLE 20MG CAP,EC TAKE ONE CAPSULE BY MOUTH EVERY DAY ON AN EMPTY STOMACH, AT LEAST 30 MINUTES PRIOR TO A MEAL FOR GERD ORAL ACTIVE 05/18/2025 [id number] 4 CHARLEE FISH 2023 90 [facility] OMEPRAZOLE 20MG CAP,EC TAKE ONE CAPSULE BY MOUTH EVERY DAY ON AN EMPTY STOMACH, AT LEAST 30 MINUTES PRIOR TO A MEAL FOR GERD ORAL DISCONT INUED 03/22/2024 [id number] 4 CHARLEE FISH 2022 90 [facility] SEMAGLUTIDE 1MG/0.75ML INJ,SOLN,PE N,3ML INJECT 1MG UNDER THE SKIN EVERY WEEK FOR DIABETES SUBCUT ANEOUS ACTIVE 11/07/2024 [id number] 4 NAIDL,TOD D 2023 1 [facility] SEMAGLUTIDE 1MG/0.75ML INJ,SOLN,PE N,3ML INJECT 1MG UNDER THE SKIN EVERY WEEK FOR DIABETES SUBCUT ANEOUS DISCONT INUED 11/08/2023 [id number] 4 MAUREEN BRITOD D 2022 1 [facility] TAMSULOSIN HCL 0.4MG CAP TAKE ONE CAPSULE BY MOUTH EVERY EVENING ORAL ACTIVE 04/18/2025 [id number] 4 CHARLEE FISH A 2023 30 [facility] TAMSULOSIN HCL 0.4MG CAP TAKE ONE CAPSULE BY MOUTH EVERY EVENING ORAL DISCONT INUED 04/13/2024 [id number] 4 CHARLEE FISH A 2022 30 [facility] TAMSULOSIN HCL 0.4MG CAP TAKE ONE CAPSULE BY MOUTH EVERY EVENING ORAL DISCONT INUED 04/11/2024 [id number] 3 CHARLEE FISH A 2022 90 [facility] TURMERIC CAP/TAB TAKE 500 MG BY MOUTH TWICE A DAY ORAL ACTIVE MATTY POWERS 2018 [facility] Allergies, Adverse Reactions, Alerts Combined list of allergies from Department of Defense and Veterans Affairs facilities. It does not include entries that were removed or entered in error. Substance Category Reaction Severity Reaction type Status Date Reported Comments Source VANCOMYCIN Propensity to adverse reactions to drug (finding) [place] active 8 [facility] Immunizations Combined list of available immunizations from the Department of Defense and Veterans Affairs facilities. Immunization Series Date Given Administered By Site Reaction Lot Number CVX Code Drug Etymology Professor Status Comments Source COVID-19 (PFIZER), MRNA, LNP-S, PF, JOSE-SUCROSE, 30 MCG/0.3 ML (AGES 12+ YEARS) 1 2023 TREVON GRIJALVA LEFT DELTO ID [id number] complet ed [facility] INFLUENZA, HIGH-DOSE, TRIVALENT, PF 2023 VALENTINEOLIVIATREVON LEFT DELTO ID [id number] A 135 complet ed [facility] ZOSTER RECOMBINANT 2 2019 187 complet ed [...] INJECTABLE, QUADRIVALENT, PRESERVATIVE FREE 2017 150 complet [facility] INFLUENZA, INJECTABLE, QUADRIVALENT, PRESERVATIVE FREE 2015 150 complet ed [facility] TDAP 2015 115 complet ed [place] [facility] PNEUMOCOCCAL CONJUGATE PCV 13 2015 133 complet [facility] TD (ADULT), 5 LF TETANUS TOXOID, PRESERVATIVE FREE, ADSORBED 2015 113 complet [facility] INFLUENZA, INJECTABLE, QUADRIVALENT, PRESERVATIVE FREE 2013 150 complet [facility] PNEUMOCOCCAL POLYSACCHARID E PPV23 2010 33 complet [facility] INFLUENZA, UNSPECIFIED FORMULATION 2006 88 complet [facility] PNEUMOCOCCAL, UNSPECIFIED FORMULATION 2006 109 complet [facility] TD(ADULT) UNSPECIFIED FORMULATION 2006 NONE 139 complet [facility] TETANUS TOXOID, UNSPECIFIED FORMULATION 2006 NONE 112 complet [facility] Results Combined list of recent chemistry, hematology and other laboratory results from Department of Defense and Veterans Affairs, ranging from 15 months to all on record, depending upon the facility. Order Name Results Value Reference Range Date Interpretation Specimen Comments Source HEMOGLOBI N A1C HEMOGLOBIN A1C/HEMOGLO BIN.TOTAL IN BLOOD 8.4 4.0 - 6.0 05/17 H Specimen Type: BLOOD Comment: Values obtained from A1C measurement s can vary. For typical A1C assays, a reported value of 7.0 could actually be between 6.7 and 7.3 if measured by a reference method. A reported value of 9.0 could actually be between 8.7 and 9.3. Ref: http://www. ngsp.org/[place] Pdata.asp Ordering Provider: ME LEEROY FISH Report Released Date/Time: Apr 16, 2024 11:04 AM Reporting Lab: [facility] [address] Performing Lab: [facility] [address] [place] [facility] BASIC METABOLIC PANEL+MG CREATININE [MASS/VOLUM E] IN SERUM OR PLASMA 1.2 mg/dL 0.7 - 1.2 05/17 Specimen Type: PLASMA No comment entered. Ordering Provider: ME LEEROY FISH Report Released Date/Time: Apr 16, 2024 11:04 AM Reporting Lab: [facility] [address] Performing Lab: [facility] [address] [place] [facility] BASIC METABOLIC PANEL+MG UREA NITROGEN [MASS/VOLUM E] IN SERUM OR PLASMA 22 mg/dL 8 - 26 05/17 Specimen Type: PLASMA No comment entered. Ordering Provider: ME LEEROY FISH Report Released Date/Time: Apr 16, 2024 11:04 AM Reporting Lab: [facility] [address] Performing Lab: [facility] [address] [place] [facility] BASIC METABOLIC PANEL+MG GLUCOSE [MASS/VOLUM E] IN SERUM OR PLASMA 187 mg/dL 70 - 100 05/17 H Specimen Type: PLASMA No comment entered. Ordering Provider: ME LEEROY FISH Report Released Date/Time: Apr 16, 2024 11:04 AM Reporting Lab: [facility] [address] Performing Lab: [facility] [address] [place] [facility] BASIC METABOLIC PANEL+MG SODIUM [MOLES/VOLU ME] IN SERUM OR PLASMA 138 mmol/L 136 - 145 05/17 Specimen Type: PLASMA No comment entered. Ordering Provider: ME LEEROY FISH Report Released Date/Time: Apr 16, 2024 11:04 AM Reporting Lab: [facility] [address] Performing Lab: [facility] [address] [place] [facility] BASIC METABOLIC PANEL+MG POTASSIUM [MOLES/VOLU ME] IN SERUM OR PLASMA 4.5 mmol/L 3.5 - 5.1 05/17 Specimen Type: PLASMA No comment entered. Ordering Provider: ME LEEROY FISH Report Released Date/Time: Apr 16, 2024 11:04 AM Reporting Lab: [facility] [address] Performing Lab: [facility] [address] [place] [facility] BASIC METABOLIC PANEL+MG CHLORIDE [MOLES/VOLU ME] IN SERUM OR PLASMA 102 mmol/L 98 - 107 05/17 Specimen Type: PLASMA No comment entered. Ordering Provider: ME LEEROY FISH Report Released Date/Time: Apr 16, 2024 11:04 AM Reporting Lab: [facility] [address] Performing Lab: [facility] [address] [place] [facility] BASIC METABOLIC PANEL+MG CARBON DIOXIDE, TOTAL [MOLES/VOLU ME] IN SERUM OR PLASMA 25 mmol/L 22 - 29 05/17 Specimen Type: PLASMA No comment entered. Ordering Provider: ME LEEROY FISH Report Released Date/Time: Apr 16, 2024 11:04 AM Reporting Lab: [facility] [address] Performing Lab: [facility] [address] [place] [facility] BASIC METABOLIC PANEL+MG CALCIUM [MASS/VOLUM E] IN SERUM OR PLASMA 9.7 mg/dL 8.4 - 10.2 05/17 Specimen Type: PLASMA No comment entered. Ordering Provider: ME LEEROY FISH Report Released Date/Time: Apr 16, 2024 11:04 AM Reporting Lab: [facility] [address] Performing Lab: [facility] [address] [place] [facility] BASIC METABOLIC PANEL+MG MAGNESIUM [MASS/VOLUM E] IN SERUM OR PLASMA 1.7 mg/dL 1.6 - 2.6 05/17 Specimen Type: PLASMA No comment entered. Ordering Provider: ME LEEROY FISH Report Released Date/Time: Apr 16, 2024 11:04 AM Reporting Lab: [facility] [address] Performing Lab: [facility] [address] [place] [facility] BASIC METABOLIC PANEL+MG ANION GAP IN SERUM OR PLASMA 11 mmol/L 5 - 15 05/17 Specimen Type: PLASMA No comment entered. Ordering Provider: ME LEEROY FISH Report Released Date/Time: Apr 16, 2024 11:04 AM Reporting Lab: [facility] [address] Performing Lab: [facility] [address] [place] [facility] BASIC METABOLIC PANEL+MG GLOMERULAR FILTRATION RATE/1.73 SQ M.PREDICTED [VOLUME RATE/AREA] IN SERUM, PLASMA OR BLOOD BY CREATININE- BASED FORMULA (CKD-EPI 2020) 62 60 05/17 Specimen Type: PLASMA No comment entered. Ordering Provider: ME LEEROY FISH Report Released Date/Time: Apr 16, 2024 11:04 AM Reporting Lab: [facility] [address] Performing Lab: [facility] [address] [place] [facility] CBC & DIFF LEUKOCYTES [#/VOLUME] IN BLOOD BY AUTOMATED COUNT 8.8 4.0 - 11.0 05/17 Specimen Type: BLOOD Comment: Automated Differentia l Performed Ordering Provider: ME LEEROY FISH Report Released Date/Time: Apr 16, 2024 11:04 AM Reporting Lab: [facility] [address] Performing Lab: [facility] [address] [place] [facility] CBC & DIFF ERYTHROCYTE S [#/VOLUME] IN BLOOD BY AUTOMATED COUNT 4.74 4.60 - 6.20 05/17 Specimen Type: BLOOD Comment: Automated Differentia l Performed Ordering Provider: ME LEEROY FISH Report Released Date/Time: Apr 16, 2024 11:04 AM Reporting Lab: [facility] [address] Performing Lab: [facility] [address] [place] [facility] CBC & DIFF HEMOGLOBIN [MASS/VOLUM E] IN BLOOD 13.1 g/dL 13.5 - 17.9 05/17 L Specimen Type: BLOOD Comment: Automated Differentia l Performed Ordering Provider: ME LEEROY FISH Report Released Date/Time: Apr 16, 2024 11:04 AM Reporting Lab: [facility] [address] Performing Lab: [facility] [address] [place] [facility] CBC & DIFF HEMATOCRIT [VOLUME FRACTION] OF BLOOD BY AUTOMATED COUNT 40.7 41.0 - 54.0 05/17 L Specimen Type: BLOOD Comment: Automated Differentia l Performed Ordering Provider: ME LEEROY FISH Report Released Date/Time: Apr 16, 2024 11:04 AM Reporting Lab: [facility] [address] Performing Lab: [facility] [address] [place] [facility] CBC & DIFF MCV [ENTITIC VOLUME] BY AUTOMATED COUNT 85.9 fL 80.0 - 100.0 05/17 Specimen Type: BLOOD Comment: Automated Differentia l Performed Ordering Provider: ME LEEROY FISH Report Released Date/Time: Apr 16, 2024 11:04 AM Reporting Lab: [facility] [address] Performing Lab: [facility] [address] [place] [facility] CBC & DIFF MCH [ENTITIC MASS] BY AUTOMATED COUNT 27.6 pg 27.0 - 33.0 05/17 Specimen Type: BLOOD Comment: Automated Differentia l Performed Ordering Provider: ME LEEROY FISH Report Released Date/Time: Apr 16, 2024 11:04 AM Reporting Lab: [facility] [address] Performing Lab: [facility] [address] [place] [facility] CBC & DIFF MCHC [MASS/VOLUM E] BY AUTOMATED COUNT 32.2 g/dL 32.0 - 37.5 05/17 Specimen Type: BLOOD Comment: Automated Differentia l Performed Ordering Provider: ME LEEROY FISH Report Released Date/Time: Apr 16, 2024 11:04 AM Reporting Lab: [facility] [address] Performing Lab: [facility] [address] [place] [facility] CBC & DIFF PLATELETS [#/VOLUME] IN BLOOD BY AUTOMATED COUNT 185 150 - 400 05/17 Specimen Type: BLOOD Comment: Automated Differentia l Performed Ordering Provider: ME LEEROY FISH Report Released Date/Time: Apr 16, 2024 11:04 AM Reporting Lab: [facility] [address] Performing Lab: [facility] [address] [place] [facility] CBC & DIFF PLATELET MEAN VOLUME [ENTITIC VOLUME] IN BLOOD BY AUTOMATED COUNT 9.6 fL 9.1 - 13.0 05/17 Specimen Type: BLOOD Comment: Automated Differentia l Performed Ordering Provider: ME LEEROY FISH Report Released Date/Time: Apr 16, 2024 11:04 AM Reporting Lab: [facility] [address] Performing Lab: [facility] [address] [place] [facility] CBC & DIFF NEUTROPHILS /100 LEUKOCYTES IN BLOOD BY MANUAL COUNT 68.6 40.0 - 80.0 05/17 Specimen Type: BLOOD Comment: Automated Differentia l Performed Ordering Provider: ME LEEROY FISH Report Released Date/Time: Apr 16, 2024 11:04 AM Reporting Lab: [facility] [address] Performing Lab: [facility] [address] [place] [facility] CBC & DIFF LYMPHOCYTES /100 LEUKOCYTES IN BLOOD BY MANUAL COUNT 21.8 15.0 - 45.0 05/17 Specimen Type: BLOOD Comment: Automated Differentia l Performed Ordering Provider: ME LEEROY FISH Report Released Date/Time: Apr 16, 2024 11:04 AM Reporting Lab: [facility] [address] Performing Lab: [facility] [address] [place] [facility] CBC & DIFF MONOCYTES/1 00 LEUKOCYTES IN BLOOD BY AUTOMATED COUNT 5.9 2.0 - 12.0 05/17 Specimen Type: BLOOD Comment: Automated Differentia l Performed Ordering Provider: ME LEEROY FISH Report Released Date/Time: Apr 16, 2024 11:04 AM Reporting Lab: [facility] [address] Performing Lab: [facility] [address] [place] [facility] CBC & DIFF EOSINOPHILS /100 LEUKOCYTES IN BLOOD BY AUTOMATED COUNT 2.9 0.0 - 6.0 05/17 Specimen Type: BLOOD Comment: Automated Differentia l Performed Ordering Provider: ME LEEROY FISH Report Released Date/Time: Apr 16, 2024 11:04 AM Reporting Lab: [facility] [address] Performing Lab: [facility] [address] [place] [facility] CBC & DIFF BASOPHILS/1 00 LEUKOCYTES IN BLOOD BY MANUAL COUNT 0.5 0.0 - 2.0 05/17 Specimen Type: BLOOD Comment: Automated Differentia l Performed Ordering Provider: ME LEEROY FISH Report Released Date/Time: Apr 16, 2024 11:04 AM Reporting Lab: [facility] [address] Performing Lab: [facility] [address] [place] [facility] CBC & DIFF ERYTHROCYTE DISTRIBUTIO N WIDTH [RATIO] BY AUTOMATED COUNT 15.0 11.5 - 14.5 05/17 H Specimen Type: BLOOD Comment: Automated Differentia l Performed Ordering Provider: ME LEEROY FISH Report Released Date/Time: Apr 16, 2024 11:04 AM Reporting Lab: [facility] [address] Performing Lab: [facility] [address] [place] [facility] CBC & DIFF LYMPHOCYTES [#/VOLUME] IN BLOOD BY AUTOMATED COUNT 1.9 1.0 - 4.0 05/17 Specimen Type: BLOOD Comment: Automated Differentia l Performed Ordering Provider: ME LEEROY FISH Report Released Date/Time: Apr 16, 2024 11:04 AM Reporting Lab: [facility] [address] Performing Lab: [facility] [address] [place] [facility] CBC & DIFF MONOCYTES [#/VOLUME] IN BLOOD BY AUTOMATED COUNT 0.5 0.1 - 1.0 05/17 Specimen Type: BLOOD Comment: Automated Differentia l Performed Ordering Provider: ME LEEROY FISH Report Released Date/Time: Apr 16, 2024 11:04 AM Reporting Lab: [facility] [address] Performing Lab: [facility] [address] [place] [facility] CBC & DIFF NEUTROPHILS [#/VOLUME] IN BLOOD BY AUTOMATED COUNT 6.0 2.0 - 7.7 05/17 Specimen Type: BLOOD Comment: Automated Differentia l Performed Ordering Provider: ME LEEROY FISH Report Released Date/Time: Apr 16, 2024 11:04 AM Reporting Lab: [facility] [address] Performing Lab: [facility] [address] [place] [facility] CBC & DIFF EOSINOPHILS [#/VOLUME] IN BLOOD BY AUTOMATED COUNT 0.3 0.0 - 0.5 05/17 Specimen Type: BLOOD Comment: Automated Differentia l Performed Ordering Provider: ME LEEROY FISH Report Released Date/Time: Apr 16, 2024 11:04 AM Reporting Lab: [facility] [address] Performing Lab: [facility] [address] [place] [facility] CBC & DIFF BASOPHILS [#/VOLUME] IN BLOOD BY AUTOMATED COUNT 0.0 0.0 - 0.2 05/17 Specimen Type: BLOOD Comment: Automated Differentia l Performed Ordering Provider: ME LEEROY FISH Report Released Date/Time: Apr 16, 2024 11:04 AM Reporting Lab: [facility] [address] Performing Lab: [facility] [address] [place] [facility] CBC & DIFF IG(META,MYE LO,PRO) 0.3 05/17 Specimen Type: BLOOD Comment: Automated Differentia l Performed Ordering Provider: ME LEEROY FISH Report Released Date/Time: Apr 16, 2024 11:04 AM Reporting Lab: [facility] [address] Performing Lab: [facility] [address] [place] [facility] CBC & DIFF IMMATURE GRANULOCYTE S [PRESENCE] IN BLOOD BY AUTOMATED COUNT 0.0 0.0 - 0.1 05/17 Specimen Type: BLOOD Comment: Automated Differentia l Performed Ordering Provider: ME LEEROY FISH Report Released Date/Time: Apr 16, 2024 11:04 AM Reporting Lab: [facility] [address] Performing Lab: [facility] [address] [place] [facility] BASIC METABOLIC PANEL+MG CREATININE [MASS/VOLUM E] IN SERUM OR PLASMA 1.2 mg/dL 0.7 - 1.2 03/22 Specimen Type: PLASMA No comment entered. Ordering Provider: ME LEEROY FISH Report Released Date/Time: Aug 21, 2022 03:48 PM Reporting Lab: [facility] [address] Performing Lab: [facility] [address] [place] [facility] BASIC METABOLIC PANEL+MG UREA NITROGEN [MASS/VOLUM E] IN SERUM OR PLASMA 15 mg/dL 8 - 26 03/22 Specimen Type: PLASMA No comment entered. Ordering Provider: ME LEEROY FISH Report Released Date/Time: Aug 21, 2022 03:48 PM Reporting Lab: [facility] [address] Performing Lab: [facility] [address] [place] [facility] BASIC METABOLIC PANEL+MG GLUCOSE [MASS/VOLUM E] IN SERUM OR PLASMA 145 mg/dL 70 - 100 03/22 H Specimen Type: PLASMA No comment entered. Ordering Provider: ME LEEROY FISH Report Released Date/Time: Aug 21, 2022 03:48 PM Reporting Lab: [facility] [address] Performing Lab: [facility] [address] [place] [facility] BASIC METABOLIC PANEL+MG SODIUM [MOLES/VOLU ME] IN SERUM OR PLASMA 138 mmol/L 136 - 145 03/22 Specimen Type: PLASMA No comment entered. Ordering Provider: ME LEEROY FISH Report Released Date/Time: Aug 21, 2022 03:48 PM Reporting Lab: [facility] [address] Performing Lab: [facility] [address] [place] [facility] BASIC METABOLIC PANEL+MG POTASSIUM [MOLES/VOLU ME] IN SERUM OR PLASMA 4.5 mmol/L 3.5 - 5.1 03/22 Specimen Type: PLASMA No comment entered. Ordering Provider: ME LEEROY FISH Report Released Date/Time: Aug 21, 2022 03:48 PM Reporting Lab: [facility] [id number] Performing Lab: [facility] [id number] [place] [facility] BASIC METABOLIC PANEL+MG CHLORIDE [MOLES/VOLU ME] IN SERUM OR PLASMA 101 mmol/L 98 - 107 03/22 Specimen Type: PLASMA No comment entered. Ordering Provider: ME LEEROY FISH Report Released Date/Time: Aug 21, 2022 03:48 PM Reporting Lab: [facility] [id number] Performing Lab: [facility] [id number] [place] [facility] BASIC METABOLIC PANEL+MG CARBON DIOXIDE, TOTAL [MOLES/VOLU ME] IN SERUM OR PLASMA 27 mmol/L 22 - 29 03/22 Specimen Type: PLASMA No comment entered. Ordering Provider: ME LEEROY FISH Report Released Date/Time: Aug 21, 2022 03:48 PM Reporting Lab: [facility] [address] Performing Lab: [facility] [address] [place] [facility] BASIC METABOLIC PANEL+MG CALCIUM [MASS/VOLUM E] IN SERUM OR PLASMA 10.0 mg/dL 8.4 - 10.2 03/22 Specimen Type: PLASMA No comment entered. Ordering Provider: ME LEEROY FISH Report Released Date/Time: Aug 21, 2022 03:48 PM Reporting Lab: [facility] [address] Performing Lab: [facility] [address] [place] [facility] BASIC METABOLIC PANEL+MG MAGNESIUM [MASS/VOLUM E] IN SERUM OR PLASMA 1.9 mg/dL 1.6 - 2.6 03/22 Specimen Type: PLASMA No comment entered. Ordering Provider: ME LEEROY FISH Report Released Date/Time: Aug 21, 2022 03:48 PM Reporting Lab: [facility] [address] Performing Lab: [facility] [address] [place] [facility] BASIC METABOLIC PANEL+MG ANION GAP IN SERUM OR PLASMA 10 mmol/L 5 - 15 03/22 Specimen Type: PLASMA No comment entered. Ordering Provider: ME LEEROY FISH Report Released Date/Time: Aug 21, 2022 03:48 PM Reporting Lab: [facility] [address] Performing Lab: [facility] [address] [place] [facility] BASIC METABOLIC PANEL+MG GLOMERULAR FILTRATION RATE/1.73 SQ M.PREDICTED [VOLUME RATE/AREA] IN SERUM, PLASMA OR BLOOD BY CREATININE- BASED FORMULA (CKD-EPI 2020) 63 60 03/22 Specimen Type: PLASMA No comment entered. Ordering Provider: ME LEEROY FISH Report Released Date/Time: Aug 21, 2022 03:48 PM Reporting Lab: [facility] [address] Performing Lab: [place] [phone] [facility] HEMOGLOBI N A1C HEMOGLOBIN A1C/HEMOGLO [...] Aug 21, 2022 03:48 PM Reporting Lab: [facility] [address] Performing Lab: [facility] [address] [facility] [facility] HEMOGLOBI N A1C HEMOGLOBIN A1C/HEMOGLO [...] December 22, 2021 03:46 PM Reporting Lab: [facility] [address] Performing Lab: [facility] [address] [place] [facility] BASIC METABOLIC PANEL+MG CREATININE [MASS/VOLUM E] IN SERUM OR PLASMA 0.9 mg/dL 0.7 - 1.2 08/18 Specimen Type: PLASMA No comment entered. Ordering Provider: ME LEEROY FISH Report Released Date/Time: December 22, 2021 03:46 PM Reporting Lab: [facility] [address] Performing Lab: [facility] [address] [place] [facility] BASIC METABOLIC PANEL+MG UREA NITROGEN [MASS/VOLUM E] IN SERUM OR PLASMA 12 mg/dL 8 - 26 08/18 Specimen Type: PLASMA No comment entered. Ordering Provider: ME LEEROY FISH Report Released Date/Time: December 22, 2021 03:46 PM Reporting Lab: [facility] [address] Performing Lab: [facility] [address] [place] [facility] BASIC METABOLIC PANEL+MG GLUCOSE [MASS/VOLUM E] IN SERUM OR PLASMA 184 mg/dL 70 - 100 08/18 H Specimen Type: PLASMA No comment entered. Ordering Provider: ME LEEROY FISH Report Released Date/Time: December 22, 2021 03:46 PM Reporting Lab: [facility] [address] Performing Lab: [facility] [address] [place] [facility] BASIC METABOLIC PANEL+MG SODIUM [MOLES/VOLU ME] IN SERUM OR PLASMA 137 mmol/L 136 - 145 08/18 Specimen Type: PLASMA No comment entered. Ordering Provider: ME LEEROY FISH Report Released Date/Time: December 22, 2021 03:46 PM Reporting Lab: [facility] [address] Performing Lab: [facility] [address] [place] [facility] BASIC METABOLIC PANEL+MG POTASSIUM [MOLES/VOLU ME] IN SERUM OR PLASMA 3.9 mmol/L 3.5 - 5.1 08/18 Specimen Type: PLASMA No comment entered. Ordering Provider: ME LEEROY FISH Report Released Date/Time: December 22, 2021 03:46 PM Reporting Lab: [facility] [address] Performing Lab: [facility] [address] [place] [facility] BASIC METABOLIC PANEL+MG CHLORIDE [MOLES/VOLU ME] IN SERUM OR PLASMA 102 mmol/L 98 - 107 08/18 Specimen Type: PLASMA No comment entered. Ordering Provider: ME LEEROY FISH Report Released Date/Time: December 22, 2021 03:46 PM Reporting Lab: [facility] [phone] Performing Lab: [facility] [address] [place] [facility] BASIC METABOLIC PANEL+MG CARBON DIOXIDE, TOTAL [MOLES/VOLU ME] IN SERUM OR PLASMA 26 mmol/L 22 - 29 08/18 Specimen Type: PLASMA No comment entered. Ordering Provider: ME LEEROY FISH Report Released Date/Time: December 22, 2021 03:46 PM Reporting Lab: [facility] [address] Performing Lab: [facility] [address] [place] [facility] BASIC METABOLIC PANEL+MG CALCIUM [MASS/VOLUM E] IN SERUM OR PLASMA 9.4 mg/dL 8.4 - 10.2 08/18 Specimen Type: PLASMA No comment entered. Ordering Provider: ME LEEROY FISH Report Released Date/Time: December 22, 2021 03:46 PM Reporting Lab: [facility] [address] Performing Lab: [facility] [address] [place] [facility] BASIC METABOLIC PANEL+MG MAGNESIUM [MASS/VOLUM E] IN SERUM OR PLASMA 1.6 mg/dL 1.6 - 2.6 08/18 Specimen Type: PLASMA No comment entered. Ordering Provider: ME LEEROY FISH Report Released Date/Time: December 22, 2021 03:46 PM Reporting Lab: [facility] [address] Performing Lab: [facility] [address] [place] [facility] BASIC METABOLIC PANEL+MG ANION GAP IN SERUM OR PLASMA 9 mmol/L 5 - 15 08/18 Specimen Type: PLASMA No comment entered. Ordering Provider: ME LEEROY FISH Report Released Date/Time: December 22, 2021 03:46 PM Reporting Lab: [facility] [address] Performing Lab: [facility] [address] [facility] BASIC METABOLIC PANEL+MG GLOMERULAR FILTRATION RATE/1.73 SQ M.PREDICTED [VOLUME RATE/AREA] IN SERUM, PLASMA OR BLOOD BY CREATININE- BASED FORMULA (CKD-EPI) 89 60 08/18 Specimen Type: PLASMA No comment entered. Ordering Provider: ME LEEROY FISH Report Released Date/Time: December 22, 2021 03:46 PM Reporting Lab: [facility] [address] Performing Lab: [facility] [address] [facility] Vital Signs Combined list of inpatient and outpatient Vital Signs from Department of Defense and Veterans Affairs, ranging from 12 months to all on record, depending upon the facility. Vital Sign Value Date Comments Source SYSTOLIC BLOOD PRESSURE 123 05/17/2024 14:50:52 [facility] DIASTOLIC BLOOD PRESSURE 79 05/17/2024 14:50:52 [facility] PULSE OXIMETRY 95 05/17/2024 14:50:52 [facility] WEIGHT 240.8 05/17/2024 14:50:52 [facility] BMI 35kg/m2 05/17/2024 14:50:52 [facility] PAIN 0 05/17/2024 14:50:52 [facility] HEIGHT 70 05/17/2024 14:50:52 [facility] TEMPERATURE 97.8 05/17/2024 14:50:[facility] PULSE 113 05/17/2024 14:50:52 [facility] Encounters Combined list of: 1) 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 2) Encounters from the Department of Defense facilities going back up to 280 months. Location Location Details Encounter Type Encounter Number Reason For Visit Attending Provider ADM Date DC Date Status Disposition Source [facility] HC PRO PHONE CALL 11-20 MIN [id number] Diagnos is: ICD-10- CM E11.42 Type 2 diabete s mellitu s with diabeti c polyneu ropathy
NAIDL,KARI 12/07 [facility] Outpatient Encounter [id number] Diagnos is: ICD-10- CM Z77.29 Contact with and exposur e to other [facility]<br/ > [facility] Outpatient Encounter [id number] Diagnos is: ICD-10- CM Z77.29 Contact with and exposur e to other [facility]<br/ > JEANINE,JESSICA [facility] [place] J 12/27 [facility] HC PRO PHONE CALL 11-20 MIN [id number] Diagnos is: ICD-10- CM E11.42 Type 2 diabete s mellitu s with diabeti c polyneu ropathy
NAIDL,KARI 01/06 [facility] Outpatient Encounter [id number] 03/10 [facility] HC PRO PHONE CALL 11-20 MIN [id number] Diagnos is: ICD-10- CM E11.42 Type 2 diabete s mellitu s with diabeti c polyneu ropathy
NAIDL,KARI 03/14 [facility] OFFICE O/P EST LOW 20-29 MIN [id number] Diagnos is: ICD-10- CM E11.621 Type 2 diabete s mellitu s with foot ulcer<b r/> Rhiannon FISH 03/22 [facility] IS [facility] HC PRO PHONE CALL 21-30 MIN [id number] Diagnos is: ICD-10- CM E11.42 Type 2 diabete s mellitu s with diabeti c polyneu ropathy
NAIDL,KARI 04/18 [place] [facility] [place] [facility] HC PRO PHONE CALL 21-30 MIN [id number] Diagnos is: ICD-10- CM E11.42 Type 2 diabete s mellitu s with diabeti c polyneu ropathy
NAIDL,KARI 07/11 [place] [facility] [place] [facility] MTMS BY PHARM ADDL 15 MIN [id number] Diagnos is: ICD-10- CM E11.42 Type 2 diabete s mellitu s with diabeti c polyneu ropathy
NAIDL,KARI 08/29 [place] [facility] [place] [facility] MTMS BY PHARM EST 15 MIN [id number] Diagnos is: ICD-10- CM E11.42 Type 2 diabete s mellitu s with diabeti c polyneu ropathy
AWKERSOLEDAD L 10/10 [place] [facility] [place] [facility] Outpatient Encounter [id number] 10/16 [place] [facility] [place] [facility] MTMS BY PHARM EST 15 MIN [id number] Diagnos is: ICD-10- CM E11.621 Type 2 diabete s mellitu s with foot ulcer<b r/> NAIDL,KARI 11/06 [place] [facility] [place] [facility] MTMS BY PHARM ADDL 15 MIN [id number] Diagnos is: ICD-10- CM E11.42 Type 2 diabete s mellitu s with diabeti c polyneu ropathy
NAIDL,KARI 11/22 [place] [facility] [place] [facility] MTMS BY PHARM ADDL 15 MIN [id number] Diagnos is: ICD-10- CM E11.42 Type 2 diabete s mellitu s with diabeti c polyneu ropathy
NAIDL,KARI 01/17 [place] [facility] [place] [facility] Outpatient Encounter [id number] Diagnos is: ICD-10- CM E11.42 Type 2 diabete s mellitu s with diabeti c polyneu ropathy
DAWNA MILAGRO 01/18 [place] [facility] [place] [facility] QNHP OL DIG ASSMT&MGMT 5-10 [id number] Diagnos is: ICD-10- CM E11.42 Type 2 diabete s mellitu s with diabeti c polyneu ropathy
MOE CHOWDHURY 01/18 [place] [facility] [place] [facility] MTMS BY PHARM EST 15 MIN [id number] Diagnos is: ICD-10- CM E11.42 Type 2 diabete s mellitu s with diabeti c polyneu ropathy
NAIDL,KARI 02/21 [place] [facility] [place] [facility] Outpatient Encounter [id number] RORY CAPPS 02/26 [place] [facility] [place] [facility] Outpatient Encounter [id number] 03/14 [place] [facility] [place] [facility] QNHP OL DIG ASSMT&MGMT 11-20 [id number] Diagnos is: ICD-10- CM E11.42 Type 2 diabete s mellitu s with diabeti c polyneu ropathy
NAIDL,KARI 03/27 [place] [facility] [place] [facility] Outpatient Encounter [id number] 04/16 [place] [facility] [place] [facility] MTMS BY PHARM EST 15 MIN [id number] Diagnos is: ICD-10- CM E11.42 Type 2 diabete s mellitu s with diabeti c polyneu ropathy
NAIDL,KARI 04/26 [place] [facility] [place] [facility] OFFICE O/P EST MOD 30 MIN [id number] Diagnos is: ICD-10- CM E11.42 Type 2 diabete s mellitu s with diabeti c polyneu ropathy
Rhiannon FISH A 05/17 [facility] Social History Combined list of available smoking, tobacco, and other social history from Department of Defense and Veterans Affairs facilities. Social History Type Response Date Comment Sourc e Tobacco smoking status NHIS VA-TOBACCO FORMER USER 05/17/2024 [facility] [facility] History of tobacco use IN-TOBACCO QUIT 1 5 YRS OR MORE 05/17/2024 [facility] History of tobacco use IN-TOBACCO QUIT 1 5 YRS OR MORE 08/18/2022 [facility] History of tobacco use IN-TOBACCO QUIT 1 5 YRS OR MORE 05/03/2021 [facility] History of tobacco use IN-TOBACCO FORMER USER 04/21/2020 [facility] History of tobacco use FORMER TOBACCO US E >1Y <7Y 04/03/2018 [facility] History of tobacco use CURRENT TOBACCO USER 03/09/2007 [facility] Plan of Care List of future care activities from Department [facility] facilities. Additional future care activities may be listed in the Assessment and Plan section. Date/Time Care Activity Care Activity Detail Facili ty 06/11/2024 AMBULATORY - NONE AMBULATORY - NONE [facility] Advance Directives List of completed, amended, or rescinded Advance Directives on record at [facility] of Veterans [facility] facilities. An actual copy of the Directive is not included. Date Advance Directive Provider Source 06/22/2021 ADVANCE DIRECTIVE DISCUSSION ALLYSON GRAF [facility] 06/22/2021 ADVANCE DIRECTIVE ALLYSON GRAF [facility] 03/09/2007 ADVANCE DIRECTIVE SOLEDAD WOLFF [facility]
--- OUTSIDE RECORDS SUMMARY | 2024-05-21 11:23 | XMS_ITS | Clinical Summary ---
Author Organization [facility] Address [address] [place] [address] Care Team Providers Care Logging Crew Supervisor Name Role Phone Post, Dave Wakefield MD Primary Care Provider [phone] Medications Medication Sig Dispensed Refills Start Date [...] Comments Blood Pressure 148/85 06/26/2018 5:58 PM [employer]AREER PROFESSIONAL Pulse 90 06/26/2018 5:58 PM [employer] PROFESSIONAL Temperature 36.6 ??C (97.8 ??F) 06/26/2018 5:58 PM CS T Respiratory Rate 18 06/26/2018 5:58 PM [employer] PROFESSIONAL Oxygen Saturation 95% 06/26/2018 7:00 PM [employer] PROFESSIONAL Inhaled Oxygen Concentration - - Weight 112 kg (247 lb) 06/26/2018 5:58 PM [employer] PROFESSION[employer] Height 180.3 cm (5' 11) 06/26/2018 5:58 PM [employer] PROFESSIONAL Body Mass Index 34.45 06/26/2018 5:58 PM [employer]ESSION[employer] Plan of Treatment Not on file Care Teams Logging Crew Supervisor Relationship Specialty Start Date End Date Post, Dave Wakefield MD PCP - General Internal Medicine 06/26/18
--- OUTSIDE RECORDS SUMMARY | 2024-05-21 11:23 | XMS_ITS | Encounter Summary ---
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 [place] Address [address] [place] [address] Care Team Providers Care Gasoline Tractor Operator Name Role Phone CHARLEE FISH Primary [...] MEDIC ARE SUPPL EMENT Jul 31, 2018 [id number] [phone] RENBRITTNEY,KANE ALEX PATIENT [place] SUPPLEMEN [place] MEDIC ARE SUPPL EMENT Jul 31, 2018 [id number] [phone] RENAUX,JU ALEX PAT[place] ([place] MEDICARE ADVANTAGE MCR (WNR) Jul 31, 2017 [id number] [phone] RENAUX,JU ALEX PATIENT [place] MED[place]ARE SUPPLEMEN SCOT MEDIC ARE SUPPL EMENT Jul 31, 2018 [id number] [phone] RENAUX,JU ALEX PAT[place] SUPPLEMEN [place] MEDIC ARE SUPPL EMENT Jul 31, 2018 [id number] [phone] RENAUX,JU ALEX PATIENT MEDICARE (WNR) MEDICARE (M) PART A May 31, 2011 PART A [id number] [phone] KANE PÉREZ PATIENT MEDICARE (WNR) MEDICARE (M) PART B May 31, 2011 PART B [id number] [phone] KANE PÉREZ PATIENT Selected Encounter This section includes the information on record at [place] for the Encounter. Date/Time Encounter Type Encounter Description Reason Provider Source May 17, 2024 02:45 PM OFFICE O/P EST MOD 30 MIN PRIMARY CARE/MEDICINE ICD-10-CM E11.42 Type 2 diabetes mellitus with diabetic polyneuropathy NENA FISH A [facility] Encounter Template Text not used by [place] Assessments - Encounter Diagnoses This section includes the primary and secondary diagnoses documented for the Encounter. Date/Time Primary/Secondary Diagnosis Diagnosis Name Provider Source May 18, 2024 01:46 PM PRIMARY Type 2 diabetes mellitus with diabetic polyneuropathy NENA FISH A [facility] May 18, 2024 01:46 PM SECONDARY Encounter for immunization TREVON GRIJALVA [facility] May 18, 2024 01:46 PM SECONDARY Other fatigue NENA FISH A [facility] May 18, 2024 01:46 PM SECONDARY Personal history of diabetic foot ulcer NENA FISH A [facility] May 18, 2024 01:46 PM SECONDARY Tobacco use NENA FSIH A [facility] May 18, 2024 01:46 PM SECONDARY Type 2 diabetes mellitus with diabetic neuropathy, unsp NENA FISH A [facility] May 18, 2024 01:46 PM SECONDARY Type 2 diabetes mellitus with foot ulcer NENA FISH A [facility] Plan of Treatment: Future Appointments (+ 6 months) and Future Tests (+/- 45 days) The Plan of Treatment section includes future care activities for the patient from all [place] treatmentcilities. This section includes future appointments and future orders which are active, pending or scheduled. Future Appointments This section includes appointments that were scheduled to occur 6 months from the date of the Encounter, up to a maximum of 20 appointments. The data comes from all [place] treatment facilities. Appointment Date/Time Appointment Type Appointme nt Facility Name Jun 11, 2024 11:30 AM AMBULATORY - NONE [facility] Lab Results: +/- 30 days of the encounter This section includes the Chemistry and Hematology Lab Results on record with [place] for the patient. Radiology Reports and Pathology Reports are provided separately, in subsequent sections. Lab Results This section contains the Chemistry/Hematology Results that were resulted 30 days before or 30 daysafter the date of the Encounter. Date/Time Source Result Type Result - Unit Interpretation Reference Range Comment May 17, 2024 01:55 PM [facility] HEMOGLOBIN A1C Specimen Type: BLOOD Comment: Values obtained from A1C measurements can vary. For typical A1C assays, a reported value of 7.0 could actually be between 6.7 and 7.3 if measured by a reference method. A reported value of 9.0 could actually be between 8.7 and 9.3. Ref: http://www.ngs p.org/CAPdata. asp Ordering Provider: SOSA FISH Report Released Date/Time: Apr 16, 2024 11:04 AM Reporting Lab: [facility] [id number] Performing Lab: [facility] [id number] HEMOGLOBIN A1C 8.4 H 4.0-6.0 May 17, 2024 01:55 PM [facility] BASIC METABOLIC PANEL+MG Specimen Type: PLASMA No comment entered. Ordering Provider: SOSA FISH Report Released Date/Time: Apr 16, 2024 11:04 AM Reporting Lab: [facility] [id number] Performing Lab: [facility] [id number] CREATININE 1.2 mg/dL 0.7-1.2 UREA NITROGEN 22 mg/dL 8-26 GLUCOSE 187 mg/dL H 70-100 SODIUM 138 mmol/L 136-145 POTASSIUM 4.5 mmol/L 3.5-5.1 CHLORIDE 102 mmol/L 98-107 CO2 25 mmol/L 22-29 CALCIUM 9.7 mg/dL 8.4-10.2 MAGNESIUM 1.7 mg/dL 1.6-2.6 ANION GAP 11 mmol/L 5-15 .CREAT EGFR(CKD-EPI ) 62 >60 May 17, 2024 01:55 PM [facility] CBC & DIFF Specimen Type: BLOOD Comment: Automated Differential Performed Ordering Provider: SOSA FISH Report Released Date/Time: Apr 16, 2024 11:04 AM Reporting Lab: [facility] [id number] Performing Lab: [facility] [id number] WBC 8.8 4.0-11.0 RBC 4.74 4.60-6.20 HGB 13.1 g/dL L 13.5-17.9 HCT 40.7 L 41.0-54.0 MCV 85.9 fL 80.0-100.0 MCH 27.6 pg 27.0-33.0 MCHC 32.2 g/dL 32.0-37.5 PLT 185 150-400 MPV 9.6 fL 9.1-13.0 NEUT 68.6 40.0-80.0 LYMPHS 21.8 15.0-45.0 MONO 5.9 2.0-12.0 EOSINO 2.9 0.0-6.0 BASO 0.5 0.0-2.0 RDW 15.0 H 11.5-14.5 ABS LYMPH 1.9 1.0-4.0 ABS MONO 0.5 0.1-1.0 ABS NEUT 6.0 2.0-7.7 ABS EOS 0.3 0.0-0.5 ABS BASO 0.0 0.0-0.2 IG(META,MYEL O,PRO) 0.3 ABS IMMATURE GRAN 0.0 0.0-0.1 Vital Signs: All taken on the encounter date This section contains inpatient and outpatient Vital Signs collected on the date of the Encounter. Date/Time Temperature Pulse Blood Pressure Respiratory Rate SP02 Pain Height Weight Body Mass Index Source May 17, 2024 02:50 PM 97.8 113 123/79 95 0 70 240.8 [facility] Immunizations: All administered on the encounter date This section contains immunizations associated to the Encounter. Immunization Series Date Issued Reaction Comments COVID-19 (PFIZER), MRNA, LNP -S, PF, JOSE-SUCROSE, 30 MCG/0.3 ML (AGES 12+ YEARS) 1 May 17, 2024 INFLUENZA, HIGH-DOSE, TRIVALENT, PF May 17 4 Social History: Smoking Status (Most current) and Tobacco Use (All prior to encounter date) This section includes the most current, and the historical, smoking and tobacco- related health factors from the [place] facility where the Encounter took place. Current Smoking Status This section includes the most current smoking, or tobacco-related health factor, from the [place] facility where the Encounter took place. Date/Time Current Smoking Status Comment Facil ity May 17, 2024 02:45 PM VA-TOBACCO FORMER USER [facility] Tobacco Use History This section includes a history of the smoking, or tobacco-related health factors, that were collected on or before the date of the Encounter. The data comes from the [place] facility where the Encounter took place. Date/Time Smoking Status/Tobacco Use Comment F acility May 17, 2024 02:45 PM VA-TOBACCO QUIT 15 YRS OR MORE [facility] Aug 18, 2022 08:30 AM VA-TOBACCO FORMER USER [facility] Aug 18, 2022 08:30 AM VA-TOBACCO QUIT [...] ALL of a patient's completed or amended [place] Advance and Rescinded Directives. The entries below indicate that a directive exists for the patient, but an actual copy is not included with this document. The data comes from all [facility]. Date Advance Directives Provider Source Jun 22, 2021 ADVANCE DIRECTIVE DISCUSSION ALLYSON GRAF [facility] Jun 22, 2021 ADVANCE DIRECTIVE ALLYSON GRAF [facility] Mar 09, 2007 ADVANCE DIRECTIVE SOLEDAD WOLFF [facility] Encounter Notes: All associated encounter notes This section contains the clinical notes associated to the Encounter. Date/Time Encounter Note(s) Provider Source May 21, 2024 09:28 AM INTERNAL MEDICINE OUTPATIENT NOTE: LOCAL TITLE: MEDICINE CLINIC NURSING NOTE STANDARD TITLE: INTERNAL MEDICINE OUTPATIENT NOTE DATE OF NOTE: MAY 21, 2024@09:28 ENTRY DATE: MAY 21, 2024@09:28:38 AUTHOR: VALENTINE,TREVON EXP COSIGNER: URGENCY: STATUS: COMPLETED MEDICINE CLINIC NURSING NOTE Has ADDENDA TYPE OF VISIT: Appointment Check In- Late entry for in person visit 05/17/24 at 1451 check-in In-person appointment REASON FOR VISIT: annual ALLERGIES: VANCOMYCIN (Apr 27, 2018) VITAL SIGNS: Blood Pressure: 123/79 (05/17/2024 14:50) Pulse: 113 (05/17/2024 14:50) Respiration: 18 (03/22/2023 14:13) Temperature: 97.8 F [36.6 C] (05/17/2024 14:50) Weight: 240.8 lb [109.23 kg] (05/17/2024 14:50) Height: 70 in [177.8 cm] (05/17/2024 14:50) BMI: 34.6 O2 Sat: 95% (05/17/2024 14:50) Pain: 0 (05/17/2024 14:50) PAIN SCREEN: Patient is not having significant pain that they wish to discuss with their provider today. MEDICATION Active Outpatient Medications (including Supplies): ATORVASTATIN CALCIUM 40MG TAB TAKE ONE TABLET BY MOUTH ACTIVE EVERY DAY FOR CHOLESTEROL DICLOFENAC NA 1% TOP GEL APPLY 4 GRAMS TOPICALLY FOUR PENDING TIMES A DAY NEEDED FOR JOINT PAIN FINASTERIDE 5MG TAB TAKE ONE TABLET BY MOUTH EVERY DAY FOR ACTIVE PROSTATE GLUCOSE SENSOR FREESTYLE REBECCA 3 PLUS USE 1 SENSOR ACTIVE EVERY 15 DAYS INSULIN,GLARGINE-YFGN 100UNIT/ML PEN 3ML INJECT 24 UNITS ACTIVE UNDER THE SKIN EVERY MORNING FOR DIABETES METFORMIN HCL 1000MG TAB TAKE ONE TABLET [...] THE ACTIVE SKIN EVERY WEEK FOR DIABETES SEMAGLUTIDE 2MG/0.75ML INJ PEN 3ML INJECT 2MG UNDER THE PENDING SKIN ONCE WEEKLY TAMSULOSIN HCL 0.4MG CAP TAKE ONE CAPSULE [...] 500 MG MOUTH TWICE A DAY ACTIVE Over the Counter/Herbal Medications: The patient denies taking any outside medications or herbals. /peyton GRIJALVA LPN Signed: 05/21/2024 09:32 05/21/2024 ADDENDUM STATUS: COMPLETED Correction-Vet did not receive COVID or influenza vaccines at 05/17/24 visit. He declined all vaccines today. /peyton GRIJALVA LPN Signed: 05/21/2024 09:45 TREVON GRIJALVA [facility] May 17, 2024 01:02 PM INTERNAL MEDICINE NOTE: LOCAL TITLE: MEDICINE CLINIC NOTE STANDARD TITLE: INTERNAL MEDICINE NOTE DATE OF NOTE: MAY 17, 2024@13:02 ENTRY DATE: MAY 18, 2024@13:03:07 AUTHOR: CHARLEE FISH COSIGNER: URGENCY: STATUS: COMPLETED MIGUELINA PÉREZ is a 78 year old MALE with the following Chief complaint: Annual follow-up Comanaged care: PCP Dr. Garrett through [facility]. HPI/ROS: 78-year-old gentleman with a history of diabetes with diabetic foot ulcer, and benign prostate enlargement who presents to clinic today for routine follow-up. He has been dealing with a diabetic ulcer on his heel for the past 2 years. A couple months ago he did finally get the wound to close through aggressive wound care, however he wore a pair of shoes that were sized to accommodate his dressing. When he wore the shoe without the dressing his heel slipped, and because the heel wound to reopen. He has again been working with his screw machine setter. The wound is improved, but not completely closed. He is being treated with skin graft treatments through his [facility] screw machine setter he says he has had 4 or 5 appointments. He did bring in pictures to show the progression of the wound, as well as grafts that show the area and volume of the wound have decreased. He feels he has gained weight because of inactivity related to being mostly nonweightbearing because of his foot. He does not want to use a wheelchair. Today he is using a cane, and sometimes uses a walker. He has a plan to increase his exercise by riding a stationary bike. He has been working with the [place] diabetes critical care specialist. He has been using a [employer] rebecca meter for the past 6 weeks, which has been very instructive in determining when his sugar is high and or low. He noted that his sugar was getting low overnight, and then hide during the day. He decided to move his glargine insulin to the morning instead of evening which has made an improvement. He reports he has been more tired lately, which he attributes to decreased exercise. He says he takes a lot of naps. He reports he does feel rested when he wakes in the morning, but it only last for about an hour. He does not have a bed partner, and does not know if he has apneic episodes. He reports his mood has been good He was previously seeing a physical therapist for left shoulder pain, but reports his shoulder pain is now resolved. Active problems - Computerized Problem List is the source for the followin. Foot Pain - left 5th metatarsal fracture 2. Diabetes mellitus (SNOMED CT 14521900) 3. Hyperlipidemia (SNOMED CT 38130861) 4. Depressive Disorder NOS * 5. Tobacco user (SNOMED CT 091072150) 6. Personal History of Alcoholism 7. Other Iatrogenic Hypotension 8. Hyperuricemia 9. Osteopenia 10. History of amputation of lesser toe 11. Diabetic neuropathy 12. Exposure to potentially hazardous substance ([facility] [id number]) [facility] Documentation [facility] Allergies: VANCOMYCIN (Apr 27, 2018) Family/Social History: () Not applicable to today's visit. EXAM: VS: Temp: 97.8 F [36.6 C] (05/17/2024 14:50) BP: 123/79 (05/17/2024 14:50) Pulse:113 (05/17/2024 14:50) Resp: 18 (03/22/2023 14:13) Pain: 0 (05/17/2024 14:50) Weight: WEIGHTS IN LAST 6 MONTHS - NONE FOUND General Appearance: NAD, breathing comfortably Mental Status: A&O x 3, pleasant affect Neck: Chest/T Spine: Cardiac: RRR, no M/R/G JVP: Lungs: CTA B, no wheezes or crackles Abdomen: Extremities: There is a shallow ulceration of the left heel, no erythema no exudate. 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 Data/Labs: WBC: 8.8 RBC: 4.74 HGB: 13.1 L HCT: 40.7 L MCV: 85.9 MCH: 27.6 MCHC: 32.2 RDW: 15.0 H PLT: 185 MPV: 9.6 SEGS: 68.6 LYMPHS: 21.8 MONOCYTES: 5.9 EOSINO: 2.9 BASO: 0.5 NEUTROPHIL, ABSOLUTE: 6.0 EOSINO, ABSOLUTE: 0.3 BASO, ABSOLUTE: 0.0 MONOCYTE, ALTERNATE ABS: 0.5 LYMPHS, ALTERNATE ABS: 1.9 I.3 IG,ABSOLUTE: 0.0 HGB A1C: 8.4 H GLUCOSE: 187 H UREA NITROGEN: 22 CREATININE: 1.2 SODIUM: 138 POTASSIUM: 4.5 CHLORIDE: 102 CO2: 25 CALCIUM: 9.7 MAGNESIUM: 1.7 ANION GAP: 11 CREATININE EGFR (CKD-EPI): 62 X )Patient was informed of available lab, imaging, and other study results associated with today's visit. Assessment and Plan: 1. Diabetic foot wound. Managed by outside screw machine setter. It had closed up after 1.5 years, however shortly after that it reopened, and he is again working with podiatry for wound management he is also working with [employer] in [place] for custom diabetic shoes. 2. Diabetes, suboptimal control. Recently has a [employer] CGM, has moved his glargine insulin to the morning. He is tolerating his current dose of semaglutide, and if anything has actually gained a little bit of weight. He denies having GI side effects, and is interested in increasing to 2 mg/week. Will continue to follow-up with diabetes critical care specialist. 3. Fatigue. He thinks this is mostly related to decreased activity. Has a plan to start using an exercise bike so that it does not increase weightbearing on his foot. He will let me know if this is not enough to improve his energy level, at which point, we may consider a home sleep study. Hemoglobin is low normal, but likely not low enough to contribute to fatigue has not really changed. 5. Left shoulder pain, history of septic shoulder that was washed out. Now resolved. 6. BPH. Adequately managed on current dose of tamsulosin and finasteride. 7. Health maintenance. Declines flu and COVID shots. We discussed LDCT for lung cancer screening as he is 11 years out from quitting smoking. Advised that he is a candidate for LDCT lung for lung cancer screening up to 15 years after quitting. He will consider. RTC 1 year, as he is comanaged through [facility]. (X) Patient/Caregiver indicates readiness to learn, verbalizes understanding, agreement and satisfaction with the treatment plan. Patient/Caregiver doesn't have any further questions today. Medication Reconciliation: Education Evaluations *Was medication education provided for NEW medications or CHANGES to medications? (including medication name, dose, route, reason for use, and potential side effects). Yes. Verbal education was provided to patient/caregiver and patient/caregiver verbalized understanding. Additional Comment: Semaglutide increased to 2 mg per/week TERATOGENIC MED & CONTRACEPTION REVIEW (Optional)... ===== [...] were also reviewed/updated for accuracy. Allergies/ADR from [facility] may not display in CPRS. Use JLV MRT5 - Allergies/ADRs FACILITY ALLERGY/ADR -------- No Remote Allergy/ADR Data available for this patient [facility] VANCOMYCIN Active and Recently Outpatient Medications (including Supplies): Issue Date Status Last Fill Active Outpatient Medications Refills Expiration 1) ATORVASTATIN CALCIUM 40MG TAB Qty: 90 ACTIVE Issu:04-17-24 for 90 days Sig: TAKE ONE TABLET BY Refills: 3 Last:04-18-24 MOUTH EVERY DAY FOR CHOLESTEROL Expr:04-18-25 2) FINASTERIDE 5MG TAB Qty: 90 for 90 days ACTIVE Issu:04-17-24 Sig: TAKE ONE TABLET BY MOUTH EVERY Refills: 3 Last:04-18-24 DAY FOR PROSTATE Expr:04-18-25 3) GLUCOSE SENSOR FREESTYLE REBECCA 3 PLUS ACTIVE Issu:04-26-24 Qty: 2 for 30 days Sig: USE 1 SENSOR Refills: 11 Last:04-30-24 EVERY 15 DAYS Expr:04-27-25 4) INSULIN,GLARGINE-YFGN 100UNIT/ML PEN 3ML ACTIVE Issu:04-26-24 Qty: 5 for 60 days Sig: INJECT 24 Refills: 3 Last:04-30-24 UNITS UNDER THE SKIN EVERY MORNING FOR Expr:04-27-25 DIABETES 5) METFORMIN HCL 1000MG TAB Qty: 180 for ACTIVE Issu:04-17-24 90 days Sig: TAKE ONE TABLET BY MOUTH Refills: 0 Last:05-09-24 TWICE A DAY FOR DIABETES Expr:07-16-24 6) NEEDLE,PEN 31G,5MM Qty: 100 for 90 days ACTIVE Issu:08-28-23 Sig: USE 1 NEEDLE DIRECTED *DISPOSE Refills: 1 Last:03-11-24 OF IN A HARD-PLASTIC CONTAINER WITH A Expr:08-28-24 SCREW-ON LID CONTACT GARBAGE HAULER FOR PROPER DISPOSAL 7) SEMAGLUTIDE 1MG/0.75ML INJ PEN 3ML Qty: ACTIVE Issu:11-07-23 1 for 28 days Sig: INJECT 1MG UNDER Refills: 6 Last:04-14-24 THE SKIN EVERY WEEK FOR DIABETES Expr:11-07-24 8) TAMSULOSIN HCL 0.4MG CAP Qty: 30 for 30 ACTIVE Issu:04-17-24 days Sig: TAKE ONE CAPSULE BY MOUTH Refills: 10 Last:05-08-24 EVERY EVENING Expr:04-18-25 Issue Date Status Last Fill Pending Outpatient Medications Refills Expiration 1) DICLOFENAC NA 1% TOP GEL Qty: 100 Sig: PENDING APPLY 4 GRAMS TOPICALLY FOUR TIMES A Refills: 0 DAY NEEDED FOR JOINT PAIN 2) OMEPRAZOLE 20MG EC CAP Qty: 90 Sig: PENDING TAKE ONE CAPSULE BY MOUTH EVERY DAY ON Refills: 0 AN EMPTY STOMACH, AT LEAST 30 MINUTES PRIOR TO A MEAL FOR GERD 3) SEMAGLUTIDE 2MG/0.75ML INJ PEN 3ML Qty: PENDING 1 Sig: INJECT 2MG UNDER THE SKIN ONCE Refills: 0 WEEKLY Issue Date Status Last Fill Inactive Outpatient Medications Refills Expiration 1) ACCU-CHEK GUIDE (GLUCOSE) TEST STRIP Issu:02-16-23 Qty: 100 for 50 days Sig: USE 1 STRIP Refills: 4 Last:10-19-23 TWICE A DAY TO CHECK BLOOD SUGAR--USE Expr:02-17-24 WITHIN 3 MINUTES OF REMOVING FROM CONTAINER 2) ATORVASTATIN CALCIUM 40MG TAB Qty: 90 DISCONTINUED Issu:04-11-23 for 90 days Sig: TAKE ONE TABLET BY Refills: 1 Last:12-17-23 MOUTH EVERY DAY FOR CHOLESTEROL Expr:04-11-24 3) DICLOFENAC NA 1% TOP GEL Qty: 100 for Issu:03-22-23 30 days Sig: APPLY 4 GRAMS TOPICALLY Refills: 3 Last:03-22-23 FOUR TIMES A DAY NEEDED FOR JOINT Expr:03-22-24 PAIN 4) FINASTERIDE 5MG TAB Qty: 90 for 90 days DISCONTINUED Issu:04-11-23 Sig: TAKE ONE TABLET BY MOUTH EVERY Refills: 1 Last:01-08-24 DAY FOR PROSTATE Expr:04-11-24 5) GLUCOSE SENSOR FREESTYLE REBECCA 3 Qty: 2 DISCONTINUED Issu:01-19-24 for 28 days Sig: USE 1 SENSOR Refills: 7 Last:04-19-24 EVERY TWO WEEKS Expr:01-19-25 6) INSULIN,GLARGINE-YFGN 100UNIT/ML PEN 3ML DISCONTINUED Issu:04-16-24 Qty: 5 for 60 days Sig: INJECT 24 (EDIT) Last:05-06-24 UNITS UNDER THE SKIN EVERY EVENING FOR Refills: 3 Expr:04-17-25 DIABETES 7) INSULIN,GLARGINE-YFGN 100UNIT/ML PEN 3ML DISCONTINUED Issu:08-29-23 Qty: 5 for 60 days Sig: INJECT 24 Refills: 0 Last:03-14-24 UNITS UNDER THE SKIN EVERY EVENING FOR Expr:08-29-24 DIABETES 8) LIDOCAINE 4% TOP CREAM Qty: 30 for 30 Issu:03-22-23 days Sig: APPLY MODERATE AMOUNT Refills: 11 Last:03-22-23 TOPICALLY THREE TIMES A DAY FOR PAIN Expr:03-22-24 9) MENTHOL/M-SALICYLATE 10-15% TOP CREAM Issu:03-22-23 Qty: 90 for 90 days Sig: APPLY THIN Refills: 3 Last:03-22-23 LAYER TOPICALLY THREE TIMES A DAY FOR Expr:03-22-24 MUSCLE PAIN 10) METFORMIN HCL 1000MG TAB Qty: 180 for DISCONTINUED Issu:04-11-23 90 days Sig: TAKE ONE TABLET BY MOUTH Refills: 1 Last:02-19-24 TWICE A DAY FOR DIABETES Expr:04-11-24 11) OMEPRAZOLE 20MG EC CAP Qty: 90 for 90 Issu:03-22-23 days Sig: TAKE ONE CAPSULE BY MOUTH Refills: 2 Last:12-22-23 EVERY DAY ON AN EMPTY STOMACH, AT Expr:03-22-24 LEAST 30 MINUTES PRIOR TO A MEAL FOR GERD 12) TAMSULOSIN HCL 0.4MG CAP Qty: 30 for 30 DISCONTINUED Issu:04-13-23 days Sig: TAKE ONE CAPSULE BY MOUTH Refills: 3 Last:03-14-24 EVERY EVENING Expr:04-13-24 Start Date Active Non-VA Medications Refills Expiration [...] Si MG ACTIVE MOUTH TWICE A DAY 31 Total Medications /es/ Charlee Fish MD Physician Signed: 05/18/2024 13:47 CHARLEE FISH [facility]
--- OUTSIDE RECORDS SUMMARY | 2024-05-21 11:23 | XMS_ITS | Referral Summary ---
Author Organization [place] Address [address] [place] [id number] Care Team Providers Care Photographic Specialist Name Role Phone Post, Dave Wakefield MD Primary Care Provider [phone] Medications Medication Sig Dispensed Refills Start Date [...] Comments Blood Pressure 148/85 06/26/2018 5:58 PM CHIEF OPERATOR REFORMER Pulse 90 06/26/2018 5:58 PM CHIEF OPERATOR REFORMER Temperature 36.6 ??C (97.8 ??F) 06/26/2018 5:58 PM CS T Respiratory Rate 18 06/26/2018 5:58 PM CHIEF OPERATOR REFORMER Oxygen Saturation 95% 06/26/2018 7:00 PM CHIEF OPERATOR REFORMER Inhaled Oxygen Concentration - - Weight 112 kg (247 lb) 06/26/2018 5:58 PM CHIEF OPERATOR REFORMER Height 180.3 cm (5' 11) 06/26/2018 5:58 PM CHIEF OPERATOR REFORMER Body Mass Index 34.45 06/26/2018 5:58 PM CHIEF OPERATOR REFORMER Plan of Treatment Not on file Care Teams Photographic Specialist Relationship Specialty Start Date End Date Post, Dave Wakefield MD PCP - General Internal Medicine 06/26/18
--- OUTSIDE RECORDS SUMMARY | 2024-05-21 11:24 | XMS_ITS | Clinical Summary ---
Author Organization [facility] Address [place], [place] [address] Care Team Providers Care Chief Executive Officer Name Role Phone Post, Dave Velazquez MD Primary Care Provider Moshe Enciso MD Unavailable [phone] Arie Justin MD Unavailable [phone] [facility], Met Unavailable Murali Hoover DPM Unavailable [phone] Allergies No known active allergies Medications [...] diabetes, hypertension and/or CHF. Please look for [facility] Care Goal Contract in Chart Review/ Letters and support this effort. Please direct questions to Care Guide Pamella Brennan Phone number [phone]. Alcohol abuse 06/02/2010 03/26/2019 Overview (06/02/2010): Sober [...] 36.7 ??C (98 ??F) 06/29/2022 8:43 AM FINISH GRINDER Respiratory Rate 18 06/29/2022 8:43 AM FINISH GRINDER Oxygen Saturation 96% 07/21/2023 1:34 PM FINISH GRINDER Inhaled Oxygen Concentration - - Weight 107 kg (236 lb) 11/03/2023 11:13 AM CDT w ith shoes Height 180.3 cm (5' 10.98) 07/21/2023 1:[address] Body Mass Index 32.93 07/21/2023 1:34 PM FINISH GRINDER Plan of Treatment Health Maintenance Due Date [...] 07/16/2020, 04/21/2020 Medical Devices Implanted Type Area Drawing Frame Tender Device Identifier Shelf Expiration Date Model / Serial / Lot [id number] - [id number] Implanted:Qty: 1 on 09/20/2021 at [facility] Right: Foot [employer] AR-8725-4 4H / / Description:COMPRESSION FT S CREWS CANNULATED, 2.5 MICRO 44MM LOAD 4 [id number] Kristina-1530p - [id number] Implanted:Qty: 1 on 09/20/2021 at [facility] Right: Foot [employer] 03/30/2025 AR-1530P- CP / / [id number] Description:FOREFOOT INTERNA L BRACE IMPLANT SYSTEM, PEEK Screw 4.30n48al Bio Compositetenodesis Disp Insurance Service Representative Pk - [id number] Implanted:Qty: 1 on 09/20/2021 at [facility] Right: Foot [employer] 08/30/2022 AR-1547CD S / / [id number] Ancr Sut 1.3mm Dx Fibertak Suturetape 2 Ndl 26.2mm 08/01 Cir - [id number] Implanted:Qty: 1 on 09/20/2021 at [facility] Right: Foot [employer] 06/29/2026 AR-8990ST / / [id number] Explanted Type Area Drawing Frame Tender Device Identifier Shelf Expiration Date Model / Serial / Lot Wire Kirs .[id number] Smooth6/Pk Depuy/Héctor - [id number] Explanted:Qty: 1 on 09/20/2021 at [facility] Right: Foot [employer] / / Description:LOAD 4 8 [id number] [facility]8737-40 - [id number] Explanted:Qty: 1 on 09/20/2021 at [facility] Right: Foot [employer] MI-8737-40 / / Description:2.5 MICRO COMPRE SSION FT DRILLS AND DISPOSABLES, GUIDEWIRE W TROCAR TIP, THREADED, 0.34 IN (.86MM) LOAD 4 7 [id number] Procedures Procedure Name Priority Date/Time Associated Diagnosis Comments CT CHEST PE STUDY Routine 05/10/2022 7:5 0 PM CDT OCCULT BLOOD IFOBT STOOL Routine 07/03/2013 7:00 PM FINISH GRINDER Screening for colon cancer from Last 3 [...] Occult Blood Stool (IFOBT) (07/03/2013 7:00 PM FINISH GRINDER) STOOL BLOOD ,IFOBT Negative Negative, Invalid 07/04/2013 3:03 PM FINISH GRINDER [facility] Stool specimen (specimen) STOOL SPECIMEN / Unknown Non-Blood / Unknown 07/03/2013 7:00 PM FINISH GRINDER 07/04/2013 2:39 PM FINISH GRINDER Dave Garrett MD LABORATORY Performing Organization Address City/State/[facility] Co de Phone Number [facility] [address] [place], [place] [phone] from Last 3 Months or Most Recently Relevant to Health Maintenance Advance Directives Documents on File Type Date Recorded Patient Formulator Expl anation Healthcare Directive 05/21/2021 3:50 PM [...] Code Status Discussion: Reviewed Preferences Care Teams Chief Executive Officer Relationship Specialty Start Date End Date Post, Dave Velazquez MD PCP - General 06/02/10 Moshe Enciso MD [address] [facility] [address] [place], [place] [address] Endocrinology Endocrinology 01/04/18 [place] [address] [facility] [place] [address] Surgery - Ophthalmology 03/22/18 [facility], [facility] [address] [facility] [place] [address] 06/08/21 Murali Hoover DPM [address] [place], [place] [address] Surgery - Podiatric 01/03/23
--- OUTSIDE RECORDS SUMMARY | 2024-05-21 11:24 | XMS_ITS | Data Portability ---
Author Organization [place] [facility] Address [address] [place] [address] Care Team Providers Care Esthetician/Spa Coordinator Name Role Phone POST, SUE Primary Care [...] of Hospitaliza tion for UTI. 2022 023 [facility], [address], [place], [address], 3 10:05:08 urinalysis, dipstick 2022 023 [facility], [address], [place], [address], 12:03:37 Referral None recorded. Procedures None recorded. Surgeries None recorded. Imaging None recorded. Medication Orders None recorded. Patient TargetsNo targets recorded. Patient Instructions Encounter Date Encounter Id Patient Instructions Last Modified By Organization Details Last Modified Time 09/23/2022 [id number] Patient to call clinic with questions or concerns. Advised patient to increase water intake and to keep 4 week appointment for next catheter change. [email or web address] Not available 09/23/2022 13:22:30 11/04/2022 [id number] Pt has F/U appt with Dr Barrientos in [place] on 11/11/2022 @ 3:10pm to review UDS. [...] ate 3) Sensi tivit y Priscila sis [place] 1 [place] 2 [place] 3 ----- ----- ----- ----- ----- [...] >8 R >8 R >8 R TRIME TH/BWOMAN LFA >2/38 R >2/38 R TRIME THOPR [...] s Desk [facility]. S= Susce ptibl [...] for provi brandon revie w. Not Available [facility] [address], [place], [address], 11/07/2022 10:05:08 11/05/19 23 11/04/2022 urina lysis , dipst ick Color-Status Straw Not Available [facility] [address], [place], [address], 11/04/2022 12:02:10 11/05/19 23 11/04/2022 urina lysis , dipst ick Clarity-Stat us Slight ly Cloudy Not Available [facility] [address], [place], [address], 11/04/2022 12:02:10 11/05/19 23 11/04/2022 urina lysis , dipst ick Glucose-Stat us 500 Not Available [facility] [address], [place], [address], 11/04/2022 12:02:10 11/05/19 23 11/04/2022 urina lysis , dipst ick Bilirubin-St atus Negati ve Not Available [facility] [address], [place], [address], 11/04/2022 12:02:10 11/05/19 23 11/04/2022 urina lysis , dipst ick Ketones-Stat us Negati ve Not Available [facility] [address], [place], [address], 11/04/2022 12:02:10 11/05/19 23 11/04/2022 urina lysis , dipst ick Sp Commodore-Stat us 1.015 Not Available [facility] [address], [place], [address], 11/04/2022 12:02:10 11/05/19 23 11/04/2022 urina lysis , dipst ick pH-Status 6.5 Not Available [facility] [address], [place], [address], 11/04/2022 12:02:10 11/05/19 23 11/04/2022 urina lysis , dipst ick Protein-Stat us 5.0 Not Available [facility] [address], [place], [address], 11/04/2022 12:02:10 11/05/19 23 11/04/2022 urina lysis , dipst ick Urobilinogen -Status 0.2 Not Available [facility] [address], [place], [address], 11/04/2022 12:02:10 11/05/19 23 11/04/2022 urina lysis , dipst ick Nitrates-Sta tus positi ve Not Available [facility] [address], [place], [address], 11/04/2022 12:02:10 11/05/19 23 11/04/2022 urina lysis , dipst ick Blood-Status Large Not Available [facility] [address], [place], [address], 11/04/2022 12:02:10 11/05/19 23 11/04/2022 urina lysis , dipst ick Leuko-Status Large Not Available [facility] [address], [place], [address], 11/04/2022 12:02:10 11/05/19 23 11/04/2022 urina lysis , dipst ick Specimen Type Cathet erized Not Available [facility] [address], [place], [address], 11/04/2022 12:02:10 11/05/19 23 11/04/2022 urina lysis , dipst ick Performed by LKchuckve n1 Not Available [facility] [address], [place], [address], 11/04/2022 12:02:10 Result Notes None recorded. Problems Name Problem SNOMED Code Status Onset Date Resolution Date Notes Provider Name and Address Organization Details Recorded Time Retention of urine 114093954 [facility] 13:15[facility]43 Problem Notes None recorded. Procedures Surgical History Date Name Laterality Status Provider Name and Address Organization Details Recorded Time 3 Fill and Pull/Voiding Trial/TOV completed Jenna Harris [facility] 12/09/2022 11:59:45 3 Urodynamic Studies completed Deyanira Woods [facility] 11/04/2022 12:19:38 3 Gordon Catheter Insertion completed Deyanira Woods [facility] 11/04/2022 12:21:21 3 Urethral Catheter Change completed Jenna Harris [facility] 10/21/2022 13:18:32 3 Urethral Catheter Change completed Nenita Flores [facility] 09/23/2022 13:21:12 3 Gordon Catheter Insertion completed Roula Beltran [facility] 08/03/2022 11:16:51 3 Fill and Pull/Voiding Trial/TOV completed Roula Beltran [facility] 08/03/2022 11:16:41 2 Cystoscopy- male completed Kristopher Barrientos MD, PHD [address] [place] [address],[address], [address], [facility] 06/30/2022 09:37:30 2 Urethral Catheter Change completed Carlos Mix [facility] 06/30/2022 09:49:15 2 Gordon Catheter Insertion completed Juanito Josue [facility] 06/16/2022 15:03:22 2 Fill and Pull/Voiding Trial/TOV completed Roula Tony PA-C [address] [place] [address],[address], [address], [facility] 06/16/2022 18:06:50 Cataract Surgery completed Juanito Josue [facility] 06/16/2022 12:30:25 Orthopedic Surgery completed Еленаarminda Josue [facility] 06/16/2022 12:30:33 Imaging Results None recorded. [...] Updated DateTime 09/23/2022 180.34 cm Nenitaaranza Flores [facility] 09/23/2022 13:17:39 Date Recorded Body height Body mass index (BMI) Body weight Provider Name and Address Organization Details Last Updated DateTime 11/11/2022 180.34 cm 30 kg/m2 90681.36 g Amanda Molina [facility] 11/11/2022 16:25:51 Social History Question Answer Notes LastModified by Organizat ion Details LastModified Time Tobacco Smoking Status Former Smoker Juanito song [facility] 06/16/2022 12:29:38 What Is Your Level [...] available 2021 12:29:09 Medical History Condition Response Sexually Transmitted Infection N Diabetes Y Other N Bleeding Disorder N High Blood Pressure N Kidney Stones N High Cholesterol N GERD/Acid Reflux N Heart Disease Y Cancer N Lung Disease N Depression N Past Encounters Encounter ID Performer Location Encounter Start Date Encounter Closed Date Diagnosis/Indication Diagnosis SNOMED-CT Code Diagnosis ICD10 Code [id number] Roula Tony PA-C [facility] [address] [place] [address] 06/16/2022 11:30:09 06/20/2022 08:36:10 Retention of urine 413392534 R33.9 Benign pro static hyperplasia with outflow obstruction 591690816 N40.1 [id number] Kristopher green MD, PHD [facility] [address] [place] [address] 06/30/2022 08:46:23 07/04/2022 11:29:58 Retention of urine 606906773 R33.9 Benign pro static hyperplasia with outflow obstruction 149722161 N40.1 [id number] Roula Ruby [facility] [address] [place] [address] 08/03/2022 10:27:16 08/05/2022 11:54:14 Retention of urine 590643045 R33.9 [id number] Nenitaaranza Flores [facility] [address] [place] [address] 09/23/2022 10:30:04 09/26/2022 14:37:37 [id number] Kristopher green MD, PHD [facility] [address] [place] [address] 11/04/2022 10:41:00 11/10/2022 13:37:32 Benign prostatic hyperplasia with outflow obstruction 451491115 N40.1 Retention of urine 28329 4002 R33.9 Microscopic hematuria 19 1727851 R31.29 [id number] Jenna Harris [facility] [address] [place] [address] 10/21/2022 11:27:55 10/24/2022 11:49:09 Retention of urine 447053740 R33.9 [id number] Kristopher green MD, PHD [facility] [address] [place] [address] 11/11/2022 16:25:28 11/17/2022 17:02:38 Retention of urine 985417448 R33.9 Benign pro static hyperplasia with outflow obstruction 667673217 N40.1 [id number] Jenna Harris [facility] [address] [place] [address] 12/09/2022 10:56:01 12/12/2022 15:10:14 Retention of urine 920680399 R33.9 Health Concerns Section Related Observation LastModified by Organization Detai ls LastModified Time None Recorded Concern Status LastModified by Organization Details LastModified Time None Recorded Advance Directives Directive None Recorded Payers Encounter Date Sequence Insurance Name Policy Number Policy Molina Covered Member ID Molina Member ID Guarantor Name 09/23/2022 1 [place] [employer] Tom B Renaux [id number] Tom B Renaux 09/23/2022 2 [place] [id number] Tom B Renaux [id number] Tom B Renaux 10/21/2022 1 [place] [employer] Tom B Renaux [id number] Tom B Renaux 10/21/2022 2 [place] [id number] Tom B Renaux [id number] Tom B Renaux 11/04/2022 1 [place] [employer] Tom B Renaux [id number] Tom B Renaux 11/04/2022 2 [place] [id number] Tom B Renaux [id number] Tom B Renaux 11/11/2022 1 [place] [employer] Tom B Renaux [id number] Tom B Renaux 11/11/2022 2 [place] [id number] Tom B Renaux [id number] Tom B Renaux 12/09/2022 1 [place] [facility] [employer] Tom B Renaux [id number] Tom B Renaux 12/09/2022 2 [place] [id number] Tom B Renaux [id number] Tom B Renaux Notes Date Note Type [...] weeks for next catheter change. Nenita song [facility] 09/23/2022 13:22:32 10/21/2022 text/html HPI Notes: Pt he re for catheter change OLMAN [facility] 10/21/2022 13:21:54 11/11/2022 text/html HPI Notes: 77M w ith urinary retention. Hospitalization at [facility] from 04/30-05/30 for MSSA bacteremia [...] coordinate their care. Kristopher Barrientos MD, PHD [address] [place] [address],[address], [address], [facility] 11/11/2022 17:49:57 12/09/2022 text/html HPI Notes: Pt of Dr PALMER, here for TOV recommended at 11/11/22 visit Jenna song [facility] 12/09/2022 12:43:22
== END 2024-05-21 11:20 | disposition home or self-care (01) ==
LOC: WOUND 11:19
PROVIDERS: Visit Provider Nurse Practitioner Family
DX: E11.621 Type 2 diabetes mellitus with foot ulcer (principal); L97.512 Non-pressure chronic ulcer of other part of right foot with fat layer exposed; I89.0 Lymphedema, not elsewhere classified; Z79.84 Long term (current) use of oral hypoglycemic drugs; Z79.85 Long-term (current) use of injectable non-insulin antidiabetic drugs
CPT/HCPCS: 15275; Q4201

== ENCOUNTER 2024-05-28 11:19 | Outpatient (CLI) | payer MEDICARE, BC, SELFPAY ==
--- OUTSIDE RECORDS SUMMARY | 2024-05-28 11:22 | XMS_ITS | Continuity of Care Document ---
Author Name [facility] Organization [facility] Care Team Providers Care Middleware Developer Name Role Phone [facility] Unavailable Unavailable Problems Combined list of problems from Department of Defense and Veterans Affairs facilities. It does not include entries that were removed or entered in error. Problem Status Onset Date Problem Type Date of Resolution Comments Source Exposure to potentially hazardous substance ([facility] [id number]) Active 10/05/19 24 Condition Oct 05, 2023 Entered By: VIJI VIVAS Comment: [facility] Documentation Initiative [facility] Depressive Disorder NOS * (ICD-9-CM 311./300.4) Active Condition [facility] Diabetes mellitus (SNOMED CT 83680800) Active Condition [facility] Diabetic neuropathy Active Condition [facility] Foot Pain (ICD-9-CM 719.47) Active Condition Aug 26 10 Entered By: MALINA WORLEY Comment: left 5th metatarsal fracture [facility] History of amputation of lesser toe Active Condition [facility] Hyperlipidemia (SNOMED CT 48963523) Active Condition [facility] Hyperuricemia Active Condition [facility]) Osteopenia Active Condition [place] [facility] Other Iatrogenic Hypotension Active Condition [place] [facility] Personal History of Alcoholism (ICD-9-CM V11.3) Active Condition [facility] Tobacco user (SNOMED CT 026099138) Active Condition [facility] Diagnosis: ICD-10-CM E11.42 Type 2 diabetes mellitus with diabetic polyneuropathy Active Diagnosis [facility] Diagnosis: ICD-10-CM E11.621 Type 2 diabetes mellitus with foot ulcer Active Diagnosis [facility] Diagnosis: ICD-10-CM Z77.29 Contact with and exposure to other hazardous substances Active Diagnosis [facility] Medications Combined list of outpatient medications from [...] DAY ORAL ACTIVE [facility]CHARLEE [facility]ers [facility] ASPIRIN 81MG TAB,EC TAKE ONE TABLET BY MOUTH EVERY DAY ORAL ACTIVE ANSMYRAAZB ER A 2006 [facility] ATORVASTATI N [place] 40MG TAB TAKE ONE TABLET BY MOUTH EVERY DAY FOR CHOLESTE ROL ORAL ACTIVE 04/18/2025 [id number] 4 NAIDL,TOD D 2023 90 [facility] ATORVASTATI N CA 40MG TAB TAKE ONE TABLET BY MOUTH EVERY DAY FOR CHOLESTE ROL ORAL DISCONT INUED 04/11/2024 [id number] 4 ABECHARLEE A 2022 90 [facility] ATORVASTATI N CA 40MG TAB TAKE ONE TABLET BY MOUTH EVERY DAY FOR CHOLESTE ROL ORAL DISCONT INUED 07/15/2023 [id number] NAIDL,TOD D 2022 90 [facility] CHOLECALCIF QUINTIN TAB TAKE 5000 UNITS BY MOUTH EVERY DAY ORAL ACTIVE FISHCHARLEE Bowers A 2022 [facility] COENZYME Q10 CAP/TAB TAKE 1 CAPSULE BY MOUTH EVERY DAY ORAL ACTIVE FISHCHARLEE A 2022 [facility] CYANOCOBALA MIN 1000MCG TAB TAKE ONE TABLET BY MOUTH EVERY DAY ORAL ACTIVE NAIDL,TOD D 2021 [facility] DICLOFENAC NA 1% GEL,TOP APPLY 4 GRAMS TOPICALL Y FOUR TIMES A DAY NEEDED FOR JOINT PAIN TOPICA L HOLD 05/18/2025 [id number] FISHCHARLEE Bowers A 2023 100 [facility] DICLOFENAC NA 1% GEL,TOP APPLY 4 GRAMS TOPICALL Y FOUR TIMES A DAY NEEDED FOR JOINT PAIN TOPICA L 03/22/2024 [id number] 3 FISHCHARLEE A 2022 100 [facility] FINASTERIDE 5MG TAB TAKE ONE TABLET BY MOUTH EVERY DAY FOR PROSTATE ORAL ACTIVE 04/18/2025 [id number] 4 CHARLEE FISH A 2023 90 [facility] FINASTERIDE 5MG TAB TAKE ONE TABLET BY MOUTH EVERY DAY FOR PROSTATE ORAL DISCONT INUED 04/11/2024 [id number] 4 CHARLEE FISH A 2022 90 [facility] FINASTERIDE 5MG TAB TAKE ONE TABLET BY MOUTH EVERY DAY FOR PROSTATE ORAL DISCONT INUED 07/13/2023 [id number] 3 CHARLEE FISH A 2021 90 [facility] FISH OIL 1000MG (500MG DHA/EPA) CAP,ORAL TAKE 1 CAPSULE BY MOUTH TWICE A DAY ORAL ACTIVE KENRICKMARYEdward Bowers 2006 [facility] INSULIN,GLA RGINE-YFGN 100UNIT/ML INJ PEN,3ML INJECT 24 UNITS UNDER THE SKIN EVERY MORNING FOR DIABETES SUBCUT ANEOUS ACTIVE 04/27/2025 [id number] 4 NAIDL,TOD D 2023 5 [facility] INSULIN,GLA RGINE-YFGN 100UNIT/ML INJ PEN,3ML INJECT 24 UNITS UNDER THE SKIN EVERY EVENING FOR DIABETES SUBCUT ANEOUS DISCONT INUED (EDIT) 04/17/2025 [id number] 4 NAIDL,TOD D 2023 5 [facility] INSULIN,GLA RGINE-YFGN 100UNIT/ML INJ PEN,3ML INJECT 24 UNITS UNDER THE SKIN EVERY EVENING FOR DIABETES SUBCUT ANEOUS DISCONT INUED 08/29/2024 [id number] NAIDL,TOD D 2023 5 [facility] INSULIN,GLA RGINE-YFGN 100UNIT/ML INJ PEN,3ML INJECT 22 UNITS UNDER THE SKIN AT BEDTIME FOR DIABETES SUBCUT ANEOUS DISCONT INUED (EDIT) 01/07/2024 [id number] 3 NAIDL,TOD D 2022 5 [facility] LIDOCAINE 4% CREAM,TOP APPLY MODERATE AMOUNT TOPICALL Y THREE TIMES A DAY FOR PAIN TOPICA L 03/22/2024 [id number] 3 CHARLEE FISH 2022 30 [facility] MAGNESIUM OXIDE 400MG TAB TAKE ONE TABLET BY MOUTH EVERY DAY ORAL ACTIVE CHARLEE FISH 2022 [facility] MENTHOL/MET HYL SALICYLATE (10-15%) LOW CONC. CREAM,TOP APPLY THIN LAYER TOPICALL Y THREE TIMES A DAY FOR MUSCLE PAIN TOPICA L 03/22/2024 [id number] 3 CHARLEE FISH 2022 90 [facility] METFORMIN HCL 1000MG TAB TAKE ONE TABLET BY MOUTH TWICE A DAY FOR DIABETES ORAL ACTIVE 07/16/2024 [id number] NALIANNATOD D 2023 180 [facility] METFORMIN HCL 1000MG TAB TAKE ONE TABLET BY MOUTH TWICE A DAY FOR DIABETES ORAL DISCONT INUED 04/11/2024 [id number] 4 CHARLEE FISH Robinson 2022 180 [facility] METFORMIN HCL 1000MG TAB TAKE ONE TABLET BY MOUTH TWICE A DAY FOR DIABETES ORAL DISCONT INUED 07/15/2023 [id number] 3 DARYLTOD D 2022 180 [facility] OMEPRAZOLE 20MG CAP,EC TAKE ONE CAPSULE BY MOUTH EVERY DAY ON AN EMPTY STOMACH, AT LEAST 30 MINUTES PRIOR TO A MEAL FOR GERD ORAL ACTIVE 05/18/2025 [id number] 4 CHARLEE FISH Robinson 2023 90 [facility] OMEPRAZOLE 20MG CAP,EC TAKE ONE CAPSULE BY MOUTH EVERY DAY ON AN EMPTY STOMACH, AT LEAST 30 MINUTES PRIOR TO A MEAL FOR GERD ORAL DISCONT INUED 03/22/2024 [id number] FISHCHARLEE Bowers 2022 90 [facility] SEMAGLUTIDE 1MG/0.75ML INJ,SOLN,PE N,3ML INJECT 1MG UNDER THE SKIN EVERY WEEK FOR DIABETES SUBCUT ANEOUS DISCONT INUED 11/07/2024 [id number] 4 NAIDL,TOD D 2023 1 [facility] SEMAGLUTIDE 1MG/0.75ML INJ,SOLN,PE N,3ML INJECT 1MG UNDER THE SKIN EVERY WEEK FOR DIABETES SUBCUT ANEOUS DISCONT INUED 11/08/2023 [id number] 4 NAIDL,TOD D 2022 1 [facility] SEMAGLUTIDE 2MG/0.75ML INJ,SOLN,PE N,3ML INJECT 2MG UNDER THE SKIN ONCE WEEKLY FOR DIABETES SUBCUT ANEOUS ACTIVE 05/18/2025 [id number] 4 CHARLEE FISH A 2023 1 [facility] TAMSULOSIN HCL 0.4MG CAP TAKE ONE CAPSULE BY MOUTH EVERY EVENING ORAL ACTIVE 04/18/2025 [id number] 4 CHARLEE FISH A 2023 30 [facility] TAMSULOSIN HCL 0.4MG CAP TAKE ONE CAPSULE BY MOUTH EVERY EVENING ORAL DISCONT INUED 04/13/2024 [id number] 4 CHARLEE FISH A 2022 30 [facility] TAMSULOSIN HCL 0.4MG CAP TAKE ONE CAPSULE BY MOUTH EVERY EVENING ORAL DISCONT INUED 04/11/2024 [id number] 3 CHARLEE FISH A 2022 90 [facility] TURMERIC CAP/TAB TAKE 500 MG BY MOUTH TWICE A DAY ORAL ACTIVE MATTY POWERS 2018 [facility] Allergies, Adverse Reactions, Alerts Combined list of allergies from Department of Defense and Veterans Affairs facilities. It does not include entries that were removed or entered in error. Substance Category Reaction Severity Reaction type Status Date Reported Comments Source VANCOMYCIN Propensity to adverse reactions to drug (finding) [place] active 8 [facility] Immunizations Combined list of available immunizations from the Department of Defense and Veterans Affairs facilities. Immunization Series Date Given Administered By Site Reaction Lot Number CVX Code Drug General Expeditor Status Comments Source COVID-19 (PFIZER), MRNA, LNP-S, PF, JOSE-SUCROSE, 30 MCG/0.3 ML (AGES 12+ YEARS) 1 2023 TREVON GRIJALVA LEFT DELTO ID [id number] complet ed [facility] INFLUENZA, HIGH-DOSE, TRIVALENT, PF 2023 TREVON GRIJALVA LEFT DELTO ID [id number] A 135 complet ed [facility] ZOSTER RECOMBINANT 2 2019 187 complet ed [facility] INFLUENZA, INJECTABLE, QUADRIVALENT, PRESERVATIVE FREE 2019 150 complet ed [facility] ZOSTER RECOMBINANT 1 2019 187 complet ed [facility] INFLUENZA, HIGH-DOSE, QUADRIVALENT 2019 197 complet [facility] INFLUENZA, SEASONAL, INJECTABLE, PRESERVATIVE FREE 2017 140 complet ed [facility] INFLUENZA, INJECTABLE, QUADRIVALENT, PRESERVATIVE FREE 2017 150 complet ed [facility] INFLUENZA, INJECTABLE, QUADRIVALENT, PRESERVATIVE FREE 2015 150 complet ed [facility] TDAP 2015 115 complet ed [facility] TA PNEUMOCOCCAL CONJUGATE PCV 13 2015 133 complet [facility] TD (ADULT), 5 LF TETANUS TOXOID, PRESERVATIVE FREE, ADSORBED 2015 113 complet ed [facility] INFLUENZA, INJECTABLE, QUADRIVALENT, PRESERVATIVE FREE 2013 150 complet ed [facility] PNEUMOCOCCAL POLYSACCHARID E PPV23 2010 33 complet [facility] INFLUENZA, UNSPECIFIED FORMULATION 2006 88 complet [facility] PNEUMOCOCCAL, UNSPECIFIED FORMULATION 2006 109 complet ed [facility] TD(ADULT) UNSPECIFIED FORMULATION 2006 NONE 139 complet [facility] TETANUS TOXOID, UNSPECIFIED FORMULATION 2006 NONE 112 complet [facility] Results Combined list of recent [...] Apr 16, 2024 11:04 AM Reporting Lab: [facility] [address] Performing Lab: [facility] [address] [place] [facility] BASIC METABOLIC PANEL+MG CREATININE [MASS/VOLUM E] IN SERUM OR PLASMA 1.2 mg/dL 0.7 - 1.2 05/17 Specimen Type: PLASMA No comment entered. Ordering Provider: ME LEEROY FISH Report Released Date/Time: Apr 16, 2024 11:04 AM Reporting Lab: [facility] [address] Performing Lab: [facility] [address] [place] [facility] BASIC METABOLIC PANEL+MG UREA NITROGEN [MASS/VOLUM E] IN SERUM OR PLASMA 22 mg/dL 8 - 26 05/17 Specimen Type: PLASMA No comment entered. Ordering Provider: ME LEEROY FISH Report Released Date/Time: Apr 16, 2024 11:04 AM Reporting Lab: [facility] [address] Performing Lab: [facility] [address] [place] [facility] BASIC METABOLIC PANEL+MG GLUCOSE [MASS/VOLUM E] IN SERUM OR PLASMA 187 mg/dL 70 - 100 05/17 H Specimen Type: PLASMA No comment entered. Ordering Provider: ME LEEROY FISH Report Released Date/Time: Apr 16, 2024 11:04 AM Reporting Lab: [facility] [phone] Performing Lab: [facility] [address] [place] [facility] BASIC METABOLIC PANEL+MG SODIUM [MOLES/VOLU ME] IN SERUM OR PLASMA 138 mmol/L 136 - 145 05/17 Specimen Type: PLASMA No comment entered. Ordering Provider: ME LEEROY FISH Report Released Date/Time: Apr 16, 2024 11:04 AM Reporting Lab: [facility] [address] Performing Lab: [facility] [address] [place] [facility] BASIC METABOLIC PANEL+MG POTASSIUM [MOLES/VOLU ME] IN SERUM OR PLASMA 4.5 mmol/L 3.5 - 5.1 05/17 Specimen Type: PLASMA No comment entered. Ordering Provider: ME LEEROY FISH Report Released Date/Time: Apr 16, 2024 11:04 AM Reporting Lab: [facility] [address] Performing Lab: [facility] [address] [place] [facility] BASIC METABOLIC PANEL+MG CHLORIDE [MOLES/VOLU ME] IN SERUM OR PLASMA 102 mmol/L 98 - 107 05/17 Specimen Type: PLASMA No comment entered. Ordering Provider: ME LEEROY FISH Report Released Date/Time: Apr 16, 2024 11:04 AM Reporting Lab: [facility] [address] Performing Lab: [facility] [address] [place] [facility] BASIC METABOLIC PANEL+MG CARBON DIOXIDE, TOTAL [MOLES/VOLU ME] IN SERUM OR PLASMA 25 mmol/L 22 - 29 05/17 Specimen Type: PLASMA No comment entered. Ordering Provider: ME LEEROY FISH Report Released Date/Time: Apr 16, 2024 11:04 AM Reporting Lab: [facility] [address] Performing Lab: [facility] [address] [place] [facility] BASIC METABOLIC PANEL+MG CALCIUM [MASS/VOLUM E] IN SERUM OR PLASMA 9.7 mg/dL 8.4 - 10.2 05/17 Specimen Type: PLASMA No comment entered. Ordering Provider: ME LEEROY FISH Report Released Date/Time: Apr 16, 2024 11:04 AM Reporting Lab: [facility] [phone] Performing Lab: [facility] [address] [place] [facility] BASIC METABOLIC PANEL+MG MAGNESIUM [MASS/VOLUM E] IN SERUM OR PLASMA 1.7 mg/dL 1.6 - 2.6 05/17 Specimen Type: PLASMA No comment entered. Ordering Provider: ME LEEROY FISH Report Released Date/Time: Apr 16, 2024 11:04 AM Reporting Lab: [facility] [address] Performing Lab: [facility] [address] [place] [facility] BASIC METABOLIC PANEL+MG ANION GAP IN SERUM OR PLASMA 11 mmol/L 5 - 15 05/17 Specimen Type: PLASMA No comment entered. Ordering Provider: ME LEEROY FISH Report Released Date/Time: Apr 16, 2024 11:04 AM Reporting Lab: [facility] [address] Performing Lab: [facility] [address] [place] [facility] BASIC METABOLIC PANEL+MG GLOMERULAR FILTRATION RATE/1.73 SQ M.PREDICTED [VOLUME RATE/AREA] IN SERUM, PLASMA OR BLOOD BY CREATININE- BASED FORMULA (CKD-EPI 2020) 62 60 05/17 Specimen Type: PLASMA No comment entered. Ordering Provider: ME LEEROY FISH Report Released Date/Time: Apr 16, 2024 11:04 AM Reporting Lab: [facility] [address] Performing Lab: [facility] [address] [place] [facility] CBC & DIFF LEUKOCYTES [#/VOLUME] IN BLOOD BY AUTOMATED COUNT 8.8 4.0 - 11.0 05/17 Specimen Type: BLOOD Comment: Automated Differentia l Performed Ordering Provider: ME LEEROY FISH Report Released Date/Time: Apr 16, 2024 11:04 AM Reporting Lab: [facility] [address] Performing Lab: [facility] [address] [place] [facility] CBC & DIFF ERYTHROCYTE S [#/VOLUME] IN BLOOD BY AUTOMATED COUNT 4.74 4.60 - 6.20 05/17 Specimen Type: BLOOD Comment: Automated Differentia l Performed Ordering Provider: ME LEEROY FISH Report Released Date/Time: Apr 16, 2024 11:04 AM Reporting Lab: [facility] [address] Performing Lab: [facility] [address] [place] [facility] CBC & DIFF HEMOGLOBIN [MASS/VOLUM E] IN BLOOD 13.1 g/dL 13.5 - 17.9 05/17 L Specimen Type: BLOOD Comment: Automated Differentia l Performed Ordering Provider: ME LEEROY FISH Report Released Date/Time: Apr 16, 2024 11:04 AM Reporting Lab: [facility] [address] Performing Lab: [facility] [address] [place] [facility] CBC & DIFF HEMATOCRIT [VOLUME FRACTION] OF BLOOD BY AUTOMATED COUNT 40.7 41.0 - 54.0 05/17 L Specimen Type: BLOOD Comment: Automated Differentia l Performed Ordering Provider: ME LEEROY FISH Report Released Date/Time: Apr 16, 2024 11:04 AM Reporting Lab: [facility] [address] Performing Lab: [facility] [address] [place] [facility] CBC & DIFF MCV [ENTITIC VOLUME] BY AUTOMATED COUNT 85.9 fL 80.0 - 100.0 05/17 Specimen Type: BLOOD Comment: Automated Differentia l Performed Ordering Provider: ME LEEROY FISH Report Released Date/Time: Apr 16, 2024 11:04 AM Reporting Lab: [facility] [address] Performing Lab: [facility] [address] [place] [facility] CBC & DIFF MCH [ENTITIC MASS] BY AUTOMATED COUNT 27.6 pg 27.0 - 33.0 05/17 Specimen Type: BLOOD Comment: Automated Differentia l Performed Ordering Provider: ME LEEROY FISH Report Released Date/Time: Apr 16, 2024 11:04 AM Reporting Lab: [facility] [address] Performing Lab: [facility] [address] [place] [facility] CBC & DIFF MCHC [MASS/VOLUM E] BY AUTOMATED COUNT 32.2 g/dL 32.0 - 37.5 05/17 Specimen Type: BLOOD Comment: Automated Differentia l Performed Ordering Provider: ME LEEROY FISH Report Released Date/Time: Apr 16, 2024 11:04 AM Reporting Lab: [facility] [address] Performing Lab: [facility] [address] [place] [facility] CBC & DIFF PLATELETS [#/VOLUME] IN BLOOD BY AUTOMATED COUNT 185 150 - 400 05/17 Specimen Type: BLOOD Comment: Automated Differentia l Performed Ordering Provider: ME LEEROY FISH Report Released Date/Time: Apr 16, 2024 11:04 AM Reporting Lab: [facility] [address] Performing Lab: [facility] [address] [place] [facility] CBC & DIFF PLATELET MEAN VOLUME [ENTITIC VOLUME] IN BLOOD BY AUTOMATED COUNT 9.6 fL 9.1 - 13.0 05/17 Specimen Type: BLOOD Comment: Automated Differentia l Performed Ordering Provider: ME LEEROY FISH Report Released Date/Time: Apr 16, 2024 11:04 AM Reporting Lab: [facility] [address] Performing Lab: [facility] [address] [place] [facility] CBC & DIFF NEUTROPHILS /100 LEUKOCYTES IN BLOOD BY MANUAL COUNT 68.6 40.0 - 80.0 05/17 Specimen Type: BLOOD Comment: Automated Differentia l Performed Ordering Provider: ME LEEROY FISH Report Released Date/Time: Apr 16, 2024 11:04 AM Reporting Lab: [facility] [address] Performing Lab: [facility] [address] [place] [facility] CBC & DIFF LYMPHOCYTES /100 LEUKOCYTES IN BLOOD BY MANUAL COUNT 21.8 15.0 - 45.0 05/17 Specimen Type: BLOOD Comment: Automated Differentia l Performed Ordering Provider: ME LEEROY FISH Report Released Date/Time: Apr 16, 2024 11:04 AM Reporting Lab: [facility] [address] Performing Lab: [facility] [address] [place] [facility] CBC & DIFF MONOCYTES/1 00 LEUKOCYTES IN BLOOD BY AUTOMATED COUNT 5.9 2.0 - 12.0 05/17 Specimen Type: BLOOD Comment: Automated Differentia l Performed Ordering Provider: ME LEEROY FISH Report Released Date/Time: Apr 16, 2024 11:04 AM Reporting Lab: [facility] [address] Performing Lab: [facility] [address] [place] [facility] CBC & DIFF EOSINOPHILS /100 LEUKOCYTES IN BLOOD BY AUTOMATED COUNT 2.9 0.0 - 6.0 05/17 Specimen Type: BLOOD Comment: Automated Differentia l Performed Ordering Provider: ME LEEROY FISH Report Released Date/Time: Apr 16, 2024 11:04 AM Reporting Lab: [facility] [address] Performing Lab: [facility] [address] [place] [facility] CBC & DIFF BASOPHILS/1 00 LEUKOCYTES IN BLOOD BY MANUAL COUNT 0.5 0.0 - 2.0 05/17 Specimen Type: BLOOD Comment: Automated Differentia l Performed Ordering Provider: ME LEEROY FISH Report Released Date/Time: Apr 16, 2024 11:04 AM Reporting Lab: [facility] [address] Performing Lab: [facility] [address] [place] [facility] CBC & DIFF ERYTHROCYTE DISTRIBUTIO N WIDTH [RATIO] BY AUTOMATED COUNT 15.0 11.5 - 14.5 05/17 H Specimen Type: BLOOD Comment: Automated Differentia l Performed Ordering Provider: ME LEEROY FISH Report Released Date/Time: Apr 16, 2024 11:04 AM Reporting Lab: [facility] [address] Performing Lab: [facility] [address] [place] [facility] CBC & DIFF LYMPHOCYTES [#/VOLUME] IN BLOOD BY AUTOMATED COUNT 1.9 1.0 - 4.0 05/17 Specimen Type: BLOOD Comment: Automated Differentia l Performed Ordering Provider: ME LEEROY FISH Report Released Date/Time: Apr 16, 2024 11:04 AM Reporting Lab: [facility] [address] Performing Lab: [facility] [address] [place] [facility] CBC & DIFF MONOCYTES [#/VOLUME] IN BLOOD BY AUTOMATED COUNT 0.5 0.1 - 1.0 05/17 Specimen Type: BLOOD Comment: Automated Differentia l Performed Ordering Provider: ME LEEROY FISH Report Released Date/Time: Apr 16, 2024 11:04 AM Reporting Lab: [facility] [address] Performing Lab: [facility] [address] [place] [facility] CBC & DIFF NEUTROPHILS [#/VOLUME] IN BLOOD BY AUTOMATED COUNT 6.0 2.0 - 7.7 05/17 Specimen Type: BLOOD Comment: Automated Differentia l Performed Ordering Provider: ME LEEROY FISH Report Released Date/Time: Apr 16, 2024 11:04 AM Reporting Lab: [facility] [address] Performing Lab: [facility] [address] [place] [facility] CBC & DIFF EOSINOPHILS [#/VOLUME] IN BLOOD BY AUTOMATED COUNT 0.3 0.0 - 0.5 05/17 Specimen Type: BLOOD Comment: Automated Differentia l Performed Ordering Provider: ME LEEROY FISH Report Released Date/Time: Apr 16, 2024 11:04 AM Reporting Lab: [facility] [address] Performing Lab: [facility] [address] [place] [facility] CBC & DIFF BASOPHILS [#/VOLUME] IN BLOOD BY AUTOMATED COUNT 0.0 0.0 - 0.2 05/17 Specimen Type: BLOOD Comment: Automated Differentia l Performed Ordering Provider: ME LEEROY FISH Report Released Date/Time: Apr 16, 2024 11:04 AM Reporting Lab: [facility] [address] Performing Lab: [facility] [address] [place] [facility] CBC & DIFF IG(META,MYE LO,PRO) 0.3 05/17 Specimen Type: BLOOD Comment: Automated Differentia l Performed Ordering Provider: ME LEEROY FISH Report Released Date/Time: Apr 16, 2024 11:04 AM Reporting Lab: [facility] [address] Performing Lab: [facility] [address] [place] [facility] CBC & DIFF IMMATURE GRANULOCYTE S [PRESENCE] IN BLOOD BY AUTOMATED COUNT 0.0 0.0 - 0.1 05/17 Specimen Type: BLOOD Comment: Automated Differentia l Performed Ordering Provider: ME LEEROY FISH Report Released Date/Time: Apr 16, 2024 11:04 AM Reporting Lab: [facility] [address] Performing Lab: [facility] [address] [place] [facility] BASIC METABOLIC PANEL+MG CREATININE [MASS/VOLUM E] IN SERUM OR PLASMA 1.2 mg/dL 0.7 - 1.2 03/22 Specimen Type: PLASMA No comment entered. Ordering Provider: ME LEEROY FISH Report Released Date/Time: Aug 21, 2022 03:48 PM Reporting Lab: [facility] [address] Performing Lab: [facility] [address] [place] [facility] BASIC METABOLIC PANEL+MG UREA NITROGEN [MASS/VOLUM E] IN SERUM OR PLASMA 15 mg/dL 8 - 26 03/22 Specimen Type: PLASMA No comment entered. Ordering Provider: ME LEEROY FISH Report Released Date/Time: Aug 21, 2022 03:48 PM Reporting Lab: [facility] [address] Performing Lab: [facility] [address] [place] [facility] BASIC METABOLIC PANEL+MG GLUCOSE [MASS/VOLUM E] IN SERUM OR PLASMA 145 mg/dL 70 - 100 03/22 H Specimen Type: PLASMA No comment entered. Ordering Provider: ME LEEROY FISH Report Released Date/Time: Aug 21, 2022 03:48 PM Reporting Lab: [facility] [address] Performing Lab: [facility] [address] [place] [facility] BASIC METABOLIC PANEL+MG SODIUM [MOLES/VOLU ME] IN SERUM OR PLASMA 138 mmol/L 136 - 145 03/22 Specimen Type: PLASMA No comment entered. Ordering Provider: ME LEEROY FISH Report Released Date/Time: Aug 21, 2022 03:48 PM Reporting Lab: [facility] [address] Performing Lab: [facility] [address] [place] [facility] BASIC METABOLIC PANEL+MG POTASSIUM [MOLES/VOLU ME] IN SERUM OR PLASMA 4.5 mmol/L 3.5 - 5.1 03/22 Specimen Type: PLASMA No comment entered. Ordering Provider: ME LEEROY FISH Report Released Date/Time: Aug 21, 2022 03:48 PM Reporting Lab: [facility] [address] Performing Lab: [facility] [address] [place] [facility] BASIC METABOLIC PANEL+MG CHLORIDE [MOLES/VOLU ME] IN SERUM OR PLASMA 101 mmol/L 98 - 107 03/22 Specimen Type: PLASMA No comment entered. Ordering Provider: ME LEEROY FISH Report Released Date/Time: Aug 21, 2022 03:48 PM Reporting Lab: [facility] [address] Performing Lab: [facility] [address] [place] [facility] BASIC METABOLIC PANEL+MG CARBON DIOXIDE, TOTAL [MOLES/VOLU ME] IN SERUM OR PLASMA 27 mmol/L 22 - 29 03/22 Specimen Type: PLASMA No comment entered. Ordering Provider: ME LEEROY FISH Report Released Date/Time: Aug 21, 2022 03:48 PM Reporting Lab: [facility] [address] Performing Lab: [facility] [address] [place] [facility] BASIC METABOLIC PANEL+MG CALCIUM [MASS/VOLUM E] IN SERUM OR PLASMA 10.0 mg/dL 8.4 - 10.2 03/22 Specimen Type: PLASMA No comment entered. Ordering Provider: ME LEEROY FISH Report Released Date/Time: Aug 21, 2022 03:48 PM Reporting Lab: [facility] [address] Performing Lab: [facility] [address] [place] [facility] BASIC METABOLIC PANEL+MG MAGNESIUM [MASS/VOLUM E] IN SERUM OR PLASMA 1.9 mg/dL 1.6 - 2.6 03/22 Specimen Type: PLASMA No comment entered. Ordering Provider: ME LEEROY FISH Report Released Date/Time: Aug 21, 2022 03:48 PM Reporting Lab: [facility] [address] Performing Lab: [facility] [address] [place] [facility] BASIC METABOLIC PANEL+MG ANION GAP IN SERUM OR PLASMA 10 mmol/L 5 - 15 03/22 Specimen Type: PLASMA No comment entered. Ordering Provider: ME LEEROY FISH Report Released Date/Time: Aug 21, 2022 03:48 PM Reporting Lab: [facility] [address] Performing Lab: [facility] [address] [place] [facility] BASIC METABOLIC PANEL+MG GLOMERULAR FILTRATION RATE/1.73 SQ M.PREDICTED [VOLUME RATE/AREA] IN SERUM, PLASMA OR BLOOD BY CREATININE- BASED FORMULA (CKD-EPI 2020) 63 60 03/22 Specimen Type: PLASMA No comment entered. Ordering Provider: ME LEEROY FISH Report Released Date/Time: Aug 21, 2022 03:48 PM Reporting Lab: [facility] [address] Performing Lab: [facility] [address] [place] [facility] HEMOGLOBI N A1C HEMOGLOBIN A1C/HEMOGLO [...] Aug 21, 2022 03:48 PM Reporting Lab: [facility] [address] Performing Lab: [facility] [address] [place] [facility] HEMOGLOBI N A1C HEMOGLOBIN A1C/HEMOGLO [...] December 22, 2021 03:46 PM Reporting Lab: [facility] [address] Performing Lab: [facility] [address] [place] [facility] BASIC METABOLIC PANEL+MG CREATININE [MASS/VOLUM E] IN SERUM OR PLASMA 0.9 mg/dL 0.7 - 1.2 08/18 Specimen Type: PLASMA No comment entered. Ordering Provider: ME LEEROY FISH Report Released Date/Time: December 22, 2021 03:46 PM Reporting Lab: [facility] [address] Performing Lab: [facility] [address] [place] [facility] BASIC METABOLIC PANEL+MG UREA NITROGEN [MASS/VOLUM E] IN SERUM OR PLASMA 12 mg/dL 8 - 26 08/18 Specimen Type: PLASMA No comment entered. Ordering Provider: ME LEEROY FISH Report Released Date/Time: December 22, 2021 03:46 PM Reporting Lab: [facility] [address] Performing Lab: [facility] [address] [place] [facility] BASIC METABOLIC PANEL+MG GLUCOSE [MASS/VOLUM E] IN SERUM OR PLASMA 184 mg/dL 70 - 100 08/18 H Specimen Type: PLASMA No comment entered. Ordering Provider: ME LEEROY FISH Report Released Date/Time: December 22, 2021 03:46 PM Reporting Lab: [facility] [address] Performing Lab: [facility] [address] [place] [facility] BASIC METABOLIC PANEL+MG SODIUM [MOLES/VOLU ME] IN SERUM OR PLASMA 137 mmol/L 136 - 145 08/18 Specimen Type: PLASMA No comment entered. Ordering Provider: ME LEEROY FISH Report Released Date/Time: December 22, 2021 03:46 PM Reporting Lab: [facility] [address] Performing Lab: [facility] [address] [place] [facility] BASIC METABOLIC PANEL+MG POTASSIUM [MOLES/VOLU ME] IN SERUM OR PLASMA 3.9 mmol/L 3.5 - 5.1 08/18 Specimen Type: PLASMA No comment entered. Ordering Provider: ME LEEROY FISH Report Released Date/Time: December 22, 2021 03:46 PM Reporting Lab: [facility] [address] Performing Lab: [facility] [address] [place] [facility] BASIC METABOLIC PANEL+MG CHLORIDE [MOLES/VOLU ME] IN SERUM OR PLASMA 102 mmol/L 98 - 107 08/18 Specimen Type: PLASMA No comment entered. Ordering Provider: ME LEEROY FISH Report Released Date/Time: December 22, 2021 03:46 PM Reporting Lab: [facility] [address] Performing Lab: [facility] [address] [place] [facility] BASIC METABOLIC PANEL+MG CARBON DIOXIDE, TOTAL [MOLES/VOLU ME] IN SERUM OR PLASMA 26 mmol/L 22 - 29 08/18 Specimen Type: PLASMA No comment entered. Ordering Provider: ME LEEROY FISH Report Released Date/Time: December 22, 2021 03:46 PM Reporting Lab: [facility] [address] Performing Lab: [facility] [address] [place] [facility] BASIC METABOLIC PANEL+MG CALCIUM [MASS/VOLUM E] IN SERUM OR PLASMA 9.4 mg/dL 8.4 - 10.2 08/18 Specimen Type: PLASMA No comment entered. Ordering Provider: ME LEEROY FISH Report Released Date/Time: December 22, 2021 03:46 PM Reporting Lab: [facility] [address] Performing Lab: [facility] [address] [facility] BASIC METABOLIC PANEL+MG MAGNESIUM [MASS/VOLUM E] IN SERUM OR PLASMA 1.6 mg/dL 1.6 - 2.6 08/18 Specimen Type: PLASMA No comment entered. Ordering Provider: ME LEEROY FISH Report Released Date/Time: December 22, 2021 03:46 PM Reporting Lab: [facility] [address] Performing Lab: [facility] [address] [facility] BASIC METABOLIC PANEL+MG ANION GAP IN SERUM OR PLASMA 9 mmol/L 5 - 15 08/18 Specimen Type: PLASMA No comment entered. Ordering Provider: ME LEEROY FISH Report Released Date/Time: December 22, 2021 03:46 PM Reporting Lab: [facility] [address] Performing Lab: [facility] [address] [facility] BASIC METABOLIC PANEL+MG GLOMERULAR FILTRATION RATE/1.73 SQ M.PREDICTED [VOLUME RATE/AREA] IN SERUM, PLASMA OR BLOOD BY CREATININE- BASED FORMULA (CKD-EPI) 89 60 08/18 Specimen Type: PLASMA No comment entered. Ordering Provider: ME LEEROY FISH Report Released Date/Time: December 22, 2021 03:46 PM Reporting Lab: [facility] [address] Performing Lab: [facility] [address] [facility] Vital Signs Combined list of inpatient and outpatient Vital Signs from Department of Defense and Veterans Affairs, ranging from 12 months to all on record, depending upon the facility. Vital Sign Value Date Comments Source SYSTOLIC BLOOD PRESSURE 123 05/17/2024 14:50:52 [facility] DIASTOLIC BLOOD PRESSURE 79 05/17/2024 14:50:52 [facility] PULSE OXIMETRY 95 05/17/2024 14:50:52 [facility] WEIGHT 240.8 05/17/2024 14:50:52 [facility] BMI 35kg/m2 05/17/2024 14:50:52 [facility] PAIN 0 05/17/2024 14:50:52 [facility] HEIGHT 70 05/17/2024 14[facility]50:[facility] TEM[facility] 97.8 05/17/2024 14:50:52 [facility] PULSE 113 05/17/2024 14[facility]50:52 [facility] Encounters Combined list of: 1) 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 2) Encounters from the Department of Defense facilities going back up to 280 months. Location Location Details Encounter Type Encounter Number Reason For Visit Attending Provider ADM Date DC Date Status Disposition Source [facility] HC PRO PHONE CALL 11-20 MIN [id number] Diagnos is: ICD-10- CM E11.42 Type 2 diabete s mellitu s with diabeti c polyneu ropathy
NAIDL,KARI 12/07 [facility] Outpatient Encounter [id number] Diagnos is: ICD-10- CM Z77.29 Contact with and exposur e to other [facility]<br/ > JEANINE,MATH ILDE J 12/27 [facility] Outpatient Encounter [id number] Diagnos is: ICD-10- CM Z77.29 Contact with and exposur e to other [facility]<br/ > JEANINE,MATH ILDE J 12/27 [facility] HC PRO PHONE CALL 11-20 MIN [id number] Diagnos is: ICD-10- CM E11.42 Type 2 diabete s mellitu s with diabeti c polyneu ropathy
NAIDL,KARI 01/06 [facility] Outpatient Encounter [id number] 03[facility] PRO PHONE CALL 11-20 MIN [id number] Diagnos is: ICD-10- CM E11.42 Type 2 diabete s mellitu s with diabeti c polyneu ropathy
NAIDL,KARI 03/14 [place] [facility] [place] [facility] OFFICE O/P EST LOW 20-29 MIN [id number] Diagnos is: ICD-10- CM E11.621 Type 2 diabete s mellitu s with foot ulcer<b r/> Rhiannon FISH 03/22 [place] [facility] [place] [facility] HC PRO PHONE CALL 21-30 MIN [id number] Diagnos is: ICD-10- CM E11.42 Type 2 diabete s mellitu s with diabeti c polyneu ropathy
NAIDL,KARI 04/18 [place] [facility] [place] [facility] HC PRO PHONE CALL 21-30 MIN [id number] Diagnos is: ICD-10- CM E11.42 Type 2 diabete s mellitu s with diabeti c polyneu ropathy
NAIDL,KARI 07/11 [place] [facility] [place] [facility] MTMS BY PHARM ADDL 15 MIN [id number] Diagnos is: ICD-10- CM E11.42 Type 2 diabete s mellitu s with diabeti c polyneu ropathy
NAIDL,KARI 08/29 [place] [facility] [place] [facility] MTMS BY PHARM EST 15 MIN [id number] Diagnos is: ICD-10- CM E11.42 Type 2 diabete s mellitu s with diabeti c polyneu ropathy
AWKER,SOLEDAD L 10/10 [place] [facility] [place] [facility] Outpatient Encounter [id number] 10/16 [place] [facility] [place] [facility] MTMS BY PHARM EST 15 MIN [id number] Diagnos is: ICD-10- CM E11.621 Type 2 diabete s mellitu s with foot ulcer<b r/> NAIDL,KARI 11/06 [place] [facility] [place] [facility] MTMS BY PHARM ADDL 15 MIN [id number] Diagnos is: ICD-10- CM E11.42 Type 2 diabete s mellitu s with diabeti c polyneu ropathy
NAIDL,KARI 11/22 [place] [facility] [place] [facility] MTMS BY PHARM ADDL 15 MIN [id number] Diagnos is: ICD-10- CM E11.42 Type 2 diabete s mellitu s with diabeti c polyneu ropathy
NAIDL,KARI 01/17 [place] [facility] [place] [facility] Outpatient Encounter [id number] Diagnos is: ICD-10- CM E11.42 Type 2 diabete s mellitu s with diabeti c polyneu ropathy
MILAGRO TONEY 01/18 [place] [facility] [place] [facility] QNHP OL DIG ASSMT&MGMT 5-10 [id number] Diagnos is: ICD-10- CM E11.42 Type 2 diabete s mellitu s with diabeti c polyneu ropathy
MOE CHOWDHURY 01/18 [place] [facility] [place] [facility] MTMS BY PHARM EST 15 MIN [id number] Diagnos is: ICD-10- CM E11.42 Type 2 diabete s mellitu s with diabeti c polyneu ropathy
NAIDL,KARI 02/21 [place] [facility] [place] [facility] Outpatient Encounter [id number] RORY CAPPS 02/26 [place] [facility] [place] [facility] Outpatient Encounter [id number] 03/14 [place] [facility] [place] [facility] QNHP OL DIG ASSMT&MGMT 11-20 [id number] Diagnos is: ICD-10- CM E11.42 Type 2 diabete s mellitu s with diabeti c polyneu ropathy
NAIDL,KARI 03/27 [place] [facility] [place] [facility] Outpatient Encounter [id number] 04/16 [facility] MTMS BY PHARM EST 15 MIN [id number] Diagnos is: ICD-10- CM E11.42 Type 2 diabete s mellitu s with diabeti c polyneu ropathy
KARI BRITO 04/26 [place] [facility] OFFICE O/P EST MOD 30 MIN [id number] Diagnos is: ICD-10- CM E11.42 Type 2 diabete s mellitu s with diabeti c polyneu ropathy
Rhiannon FISH 05/17 [facility] Social History Combined list of available smoking, tobacco, and other social history from Department of Defense and Veterans Affairs facilities. Social History Type Response Date Comment Sourc e Tobacco smoking status NHIS PA-TOBACCO FORMER USER 05/17/2024 [facility] OR MORE [facility]/17/2024 [facility] History of tobacco use PA-TOBACCO FORMER USER 08/18/2022 [facility] History of tobacco use PA-TOBACCO FORMER USER 05/03/2021 [facility] History of tobacco use PA-TOBACCO FORMER USER 04/21/2020 [facility] History of tobacco use FORMER TOBACCO US E >1Y <7Y 04/03/2018 [facility] History of tobacco use CURRENT TOBACCO USER 03/09/2007 [facility] Plan of Care List of future care activities from Department of Veterans Affairs facilities. Additional future care activities may be listed in the Assessment and Plan section. Date/Time Care Activity Care Activity Detail Facili ty 06/11/2024 AMBULATORY - NONE [facility] Advance Directives List of completed, amended, or rescinded Advance Directives on record at Department of Veterans Affairs facilities. An actual copy of the Directive is not included. Date Advance Directive Provider Source 06/22/2021 ADVANCE DIRECTIVE DISCUSSION ALLYSON GRAF [facility] 06/22/2021 ADV[address] [facility] 03/09/2007 ADVANCE DIRECTIVE SOLEDAD WOLFF [facility]
--- OUTSIDE RECORDS SUMMARY | 2024-05-28 11:23 | XMS_ITS | Data Portability ---
Author Organization [place] [facility] Address [address] [place] [address] Care Team Providers Care Sliver Lapper Name Role Phone POST, SUE Primary Care Provider [phone] Assessment Encounter Date Assessment Date Assessment LastModified [...] UTI. 2022 023 [facility], [address], [address], [place], [address], 3 10:05:08 urinalysis, dipstick 2022 023 [facility], [address], [place], [address], 12:03:37 Referral None recorded. Procedures None recorded. Surgeries None recorded. Imaging None recorded. Medication Orders None recorded. Patient TargetsNo targets recorded. Patient Instructions Encounter Date Encounter Id Patient Instructions Last Modified By Organization Details Last Modified Time 09/23/2022 [id number] Patient to call clinic with questions or concerns. Advised patient to increase water intake and to keep 4 week appointment for next catheter change. [email or web address] Not available 09/23/2022 13:22:30 11/04/2022 [id number] Pt has F/U appt with Dr Barrientos in [place] on 11/11/2022 @ 3:10pm to review UDS. [...] ate 3) Sensi tivit y Priscila sis Farwell te 1 Farwell te 2 Farwell te 3 ----- ----- ----- ----- ----- [...] revie w. Not Available [facility] [address], [place], [address], 11/07/2022 10:05:08 11/05/19 23 11/04/2022 urina lysis , dipst ick Color-Status Straw Not Available [facility] [address], [place], [address], 11/04/2022 12:02:10 11/05/19 23 11/04/2022 urina lysis , dipst ick Clarity-Stat us Slight ly Cloudy Not Available [facility] [address], [place], [address], 11/04/2022 12:02:10 11/05/19 23 11/04/2022 urina lysis , dipst ick Glucose-Stat us 500 Not Available [facility] [address], [place], [address], 11/04/2022 12:02:10 11/05/19 23 11/04/2022 urina lysis , dipst ick Bilirubin-St atus Negati ve Not Available [facility] [address], [place], [address], 11/04/2022 12:02:10 11/05/19 23 11/04/2022 urina lysis , dipst ick Ketones-Stat us Negati ve Not Available [facility] [address], [place], [address], 11/04/2022 12:02:10 11/05/19 23 11/04/2022 urina lysis , dipst ick Sp [place]-Stat us 1.015 Not Available [facility] [address], [place], [address], 11/04/2022 12:02:10 11/05/19 23 11/04/2022 urina lysis , dipst ick pH-Status 6.5 Not Available [facility] [address], [place], [address], 11/04/2022 12:02:10 11/05/19 23 11/04/2022 urina lysis , dipst ick Protein-Stat us 5.0 Not Available [facility] [address], [place], [address], 11/04/2022 12:02:10 11/05/19 23 11/04/2022 urina lysis , dipst ick Urobilinogen -Status 0.2 Not Available [facility] [address], [place], [address], 11/04/2022 12:02:10 11/05/19 23 11/04/2022 urina lysis , dipst ick Nitrates-Sta tus positi ve Not Available [facility] [address], [place], [address], 11/04/2022 12:02:10 11/05/19 23 11/04/2022 urina lysis , dipst ick Blood-Status Large Not Available [facility] [address], [place], [address], 11/04/2022 12:02:10 11/05/19 23 11/04/2022 urina lysis , dipst ick Leuko-Status Large Not Available [facility] [address], [place], [address], 11/04/2022 12:02:10 11/05/19 23 11/04/2022 urina lysis , dipst ick Specimen Type Cathet erized Not Available [facility] [address], [place], [address], 11/04/2022 12:02:10 11/05/19 23 11/04/2022 urina lysis , dipst ick Performed by LKchuckve n1 Not Available [facility] [address], [place], [address], 11/04/2022 12:02:10 Result Notes None recorded. Problems Name Problem SNOMED Code Status Onset Date Resolution Date Notes Provider Name and Address Organization Details Recorded Time Retention of urine 370423159 [facility] 13:15:43 Problem Notes None [...] Cystoscopy- male completed Kristopher Barrientos MD, PHD [address] [place] [address],[address], [address], [facility] 06/30/2022 09:37:30 2 Urethral Catheter Change completed Carlos Mix [facility] 06/30/2022 09:49:15 2 Gordon Catheter Insertion completed Juanito Josue [facility] 06/16/2022 15:03:22 2 Fill and Pull/Voiding Trial/TOV completed Roula Tony PA-C [address] [place] [address],[address], [address], [facility] 06/16/2022 18:06:50 Cataract Surgery completed Juanito Josue [facility] 06/16/2022 12:30:25 Orthopedic Surgery completed Еленаarminda Josue [facility] 06/16/2022 12:30:33 Imaging Results None [...] Updated DateTime 09/23/2022 180.34 cm Nenitaaranza Flores [facility] 09/23/2022 13:17:39 Date Recorded Body height Body mass index (BMI) Body weight Provider Name and Address Organization Details Last Updated DateTime 11/11/2022 180.34 cm 30 kg/m2 14099.36 g Amanda Molina [facility] 11/11/2022 16:25:51 Social History Question Answer Notes LastModified by Organizat ion Details LastModified Time Tobacco Smoking Status Former Smoker Juanito song [facility] 06/16/2022 12:29:38 What Is Your [...] available 2021 12:29:09 Medical History Condition Response Other N High Blood Pressure N Kidney Stones N Depression N Lung Disease N GERD/Acid Reflux N Sexually Transmitted Infection N Cancer N High Cholesterol N Diabetes Y Bleeding Disorder N Heart Disease Y Past Encounters Encounter ID Performer Location Encounter Start Date Encounter Closed Date Diagnosis/Indication Diagnosis SNOMED-CT Code Diagnosis ICD10 Code [id number] Roula Tony PA-C [facility] [address] [place] [address] 06/16/2022 11:30:09 06/20/2022 08:36:10 Retention of urine 293665759 R33.9 Benign pro static hyperplasia with outflow obstruction 625153442 N40.1 [id number] Kristopher green MD, PHD [facility] [address] [place] [address] 06/30/2022 08:46:23 07/04/2022 11:29:58 Retention of urine 149607319 R33.9 Benign pro static hyperplasia with outflow obstruction 736089576 N40.1 [id number] Roula Ruby [facility] [address] [place] [address] 08/03/2022 10:27:16 08/05/2022 11:54:14 Retention of urine 429993773 R33.9 [id number] Nenitaaranza Flores [facility] [address] [place] [address] 09/23/2022 10:30:04 09/26/2022 14:37:37 [id number] Kristopher green MD, PHD [facility] [address] [place] [address] 11/04/2022 10:41:00 11/10/2022 13:37:32 Benign prostatic hyperplasia with outflow obstruction 734485943 N40.1 Retention of urine 83504 4002 R33.9 Microscopic hematuria 19 4347038 R31.29 [id number] Jenna Harris [facility] [address] [place] [address] 10/21/2022 11:27:55 10/24/2022 11:49:09 Retention of urine 889055523 R33.9 [id number] Kristopher green MD, PHD [facility] [address] [place] [address] 11/11/2022 16:25:28 11/17/2022 17:02:38 Retention of urine 794377362 R33.9 Benign pro static hyperplasia with outflow obstruction 380066969 N40.1 [id number] Jenna Harris [facility] [address] [place] [address] 12/09/2022 10:56:01 12/12/2022 15:10:14 Retention of urine 384829530 R33.9 Health Concerns Section Related Observation LastModified by Organization Detai ls LastModified Time None Recorded Concern Status LastModified by Organization Details LastModified Time None Recorded Advance Directives Directive None Recorded Payers Encounter Date Sequence Insurance Name Policy Number Policy Molina Covered Member ID Molina Member ID Guarantor Name 09/23/2022 1 [place] [employer] Tom B Renaux [id number] Tom B Renaux 09/23/2022 2 [place] [id number] Tom B Renaux [id number] Tom B Renaux 10/21/2022 1 [place] [employer] Tom B Renaux [id number] Tom B Renaux 10/21/2022 2 [place] [id number] Tom B Renaux [id number] Tom B Renaux 11/04/2022 1 [place] [employer] Tom B Renaux [id number] Tom B Renaux 11/04/2022 2 [place] [id number] Tom B Renaux [id number] Tom B Renaux 11/11/2022 1 [place] [employer] Tom B Renaux [id number] Tom B Renaux 11/11/2022 2 [place] [id number] Tom B Renaux [id number] Tom B Renaux 12/09/2022 1 [place] [facility] [employer] Tom B Renaux [id number] Tom B Renaux 12/09/2022 2 [place] [id number] Tom B Renaux [id number] Tom B Renaux Notes Date Note Type [...] weeks for next catheter change. Nenita song [facility] 09/23/2022 13:22:32 10/21/2022 text/html HPI Notes: Pt he re for catheter change OLMAN [facility] 10/21/2022 13:21:54 11/11/2022 text/html HPI Notes: 77M w ith urinary retention. Hospitalization at [facility] from 04/30-05/30 for MSSA bacteremia [...] coordinate their care. Kristopher Barrientos MD, PHD [address] [place] [address],[address], [address], [facility] 11/11/2022 17:49:57 12/09/2022 text/html HPI Notes: Pt of Dr PALMER, here for TOV recommended at 11/11/22 visit Jenna song [facility] 12/09/2022 12:43:22
--- OUTSIDE RECORDS SUMMARY | 2024-05-28 11:23 | XMS_ITS | Referral Summary ---
Author Organization [facility] Address [address] [place] [address] Care Team Providers Care Technical Assoc Name Role Phone Post, Dave Wakefield MD Primary Care Provider [phone] Medications sulfamethoxazole -trimethoprim (BACTRIM DS/SEPTRA DS) 800-160 MG tablet Take [...] Recorded Sex Assigned at Not on file Legal Sex Male 3:10 AM CABINET MAKER Gender Identity Not on file Sexual Orientation Not on file Last Filed Vital Signs Vital Sign Reading Time Taken Comments Blood Pressure 148/85 06/26/2018 5:58 PM CABINET MAKER Pulse 90 06/26/2018 5:58 PM CABINET MAKER Temperature 36.6 ??C (97.8 ??F) 06/26/2018 5:58 PM CS T Respiratory Rate 18 06/26/2018 5:58 PM CABINET MAKER Oxygen Saturation 95% 06/26/2018 7:00 PM CABINET MAKER Inhaled Oxygen Concentration - - Weight 112 kg (247 lb) 06/26/2018 5:58 PM CABINET MAKER Height 180.3 cm (5' 11) 06/26/2018 5:58 PM CABINET MAKER Body Mass Index 34.45 06/26/2018 5:58 PM CABINET MAKER Plan of Treatment Not on file Insurance MEDICARE [facility] [place] MEDICARE SUPPLEMENT Care Teams Technical Assoc Relationship Specialty Start Date End Date Post, Dave Wakefield MD PCP - General Internal Medicine 06/26/18
--- OUTSIDE RECORDS SUMMARY | 2024-05-28 11:23 | XMS_ITS | Clinical Summary ---
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 Gender Identity Not on file Sexual Orientation Not on file Last Filed Vital Signs Vital Sign Reading Time Taken Comments Blood Pressure 148/85 06/26/2018 5:58 PM MOTION AND TIME STUDY TEACHER Pulse 90 06/26/2018 5:58 PM MOTION AND TIME STUDY TEACHER Temperature 36.6 ??C (97.8 ??F) 06/26/2018 5:58 PM CS T Respiratory Rate 18 06/26/2018 5:58 PM MOTION AND TIME STUDY TEACHER Oxygen Saturation 95% 06/26/2018 7:00 PM MOTION AND TIME STUDY TEACHER Inhaled Oxygen Concentration - - Weight 112 kg (247 lb) 06/26/2018 5:58 PM MOTION AND TIME STUDY TEACHER Height 180.3 cm (5' 11) 06/26/2018 5:58 PM MOTION AND TIME STUDY TEACHER Body Mass Index 34.45 06/26/2018 5:58 PM MOTION AND TIME STUDY TEACHER Plan of Treatment Not on file Insurance MEDICARE [facility] [place] Care Teams Hardness Tester Relationship Specialty Start Date End Date Post, Dave Wakefield MD PCP - General Internal Medicine 06/26/18
--- OUTSIDE RECORDS SUMMARY | 2024-05-28 11:23 | XMS_ITS | Clinical Summary ---
Author Organization [facility] Address [place], [place] [address] Care Team Providers Care Collections Attorney Name Role Phone Post, Dave Velazquez MD Primary Care Provider [phone] Moshe Enciso MD Unavailable Arie Justin MD Unavailable [phone] [facility], [facility] Unavailable [phone] Murali Hoover DPM Unavailable [phone] Allergies No known active allergies Medications [...] diabetes, hypertension and/or CHF. Please look for [facility] Care Goal Contract in Chart Review/ Letters and support this effort. Please direct questions to Care Guide Pamella Brennan Phone number [phone]. Alcohol abuse 06/02/2010 03/26/2019 Overview (06/02/2010): Sober [...] 36.7 ??C (98 ??F) 06/29/2022 8:43 AM AIDS COUNSELOR Respiratory Rate 18 06/29/2022 8:43 AM AIDS COUNSELOR Oxygen Saturation 96% 07/21/2023 1:34 PM AIDS COUNSELOR Inhaled Oxygen Concentration - - Weight 107 kg (236 lb) 11/03/2023 11:13 AM CDT w ith shoes Height 180.3 cm (5' 10.98) 07/21/2023 1:[address] Body Mass Index 32.93 07/21/2023 1:34 PM AIDS COUNSELOR Plan of Treatment Health Maintenance Due Date [...] 05/10/2022, 04/30/2022, 06/04/2021 COVID-19 vaccine series ( season) 2024 Influenza for age 65+ 03/31/2024 04/21/2020 , 04/27/2018, 07/01/2016, Additional history exists BMI (ht and wt on same day) for age 18+ 07/21/2024 07/21/2023, 09/10/2021, 07/04/2019, Additional history exists Tetanus booster 09/20/2025 09/20/2015, 09/11/2015 Tdap Completed 09/20/2015 Zoster (shingles) series for age 50+ Completed 07/16/2020, 04/21/2020 Medical Devices Implanted Type Area Political Worker Device Identifier Shelf Expiration Date Model / Serial / Lot [id number] - [id number] Implanted:Qty: 1 on 09/20/2021 at [facility] Right: Foot [employer] AR-8725-4 4H / / Description:COMPRESSION FT S CREWS CANNULATED, 2.5 MICRO 44MM LOAD 4 [id number] Kristina-1530p - [id number] Implanted:Qty: 1 on 09/20/2021 at [facility] Right: Foot [employer] 03/30/2025 AR-1530P- CP / / [id number] Description:FOREFOOT INTERNA L BRACE IMPLANT SYSTEM, PEEK Screw 4.74p59ei Bio Compositetenodesis Disp Rn Perioperative Pk - [id number] Implanted:Qty: 1 on 09/20/2021 at [facility] Right: Foot [employer] 08/30/2022 AR-1547CD S / / [id number] Ancr Sut 1.3mm Dx Fibertak Suturetape 2 Ndl 26.2mm 08/01 [facility] - [id number] Implanted:Qty: 1 on 09/20/2021 at [facility] Right: Foot [employer] 06/29/2026 AR-8990ST / / [id number] Explanted Type Area Political Worker Device Identifier Shelf Expiration Date Model / Serial / Lot Wire Kirs .[id number] Smooth6/Pk Depuy/Héctor - [id number] Explanted:Qty: 1 on 09/20/2021 at [facility] Right: Foot [employer] / / Description:LOAD 4 8 [id number] [facility]8737-40 - [id number] Explanted:Qty: 1 on 09/20/2021 at [facility] Right: Foot [employer] [id number]-8737-40 / / Description:2.5 MICRO COMPRE SSION FT DRILLS AND DISPOSABLES, GUIDEWIRE W TROCAR TIP, THREADED, 0.34 IN (.86MM) LOAD 4 7 [id number] Procedures Procedure Name Priority Date/Time Associated Diagnosis Comments CT CHEST PE STUDY Routine 05/10/2022 7:5 0 PM CDT from Last 3 Months or Most Recently [...] PM (Electronically Signed) Verna Christiansen MD CT from Last 3 Months or Most Recently Relevant to Health Maintenance Advance Directives Documents on File Type Date Recorded Patient Pastoral Assistant Expl anation Healthcare Directive 05/21/2021 3:50 [...] Code Status Discussion: Reviewed Preferences Care Teams Collections Attorney Relationship Specialty Start Date End Date Post, Dave Velazquez MD PCP - General 06/02/10 Moshe Enciso MD [address] [place] [address] Endocrinology Endocrinology 01/04/18 [place] [address] [place], [place] [address] Surgery - Ophthalmology 03/22/18 [facility] [address] [place] [address] 06/08/21 Murali Hoover DPM [address] [place] [address] Surgery - Podiatric 01/03/23
== END 2024-05-28 11:20 | disposition home or self-care (01) ==
LOC: WOUND 11:20
PROVIDERS: Visit Provider Nurse Practitioner Family
DX: E11.621 Type 2 diabetes mellitus with foot ulcer (principal); L97.512 Non-pressure chronic ulcer of other part of right foot with fat layer exposed; Z79.84 Long term (current) use of oral hypoglycemic drugs; Z79.85 Long-term (current) use of injectable non-insulin antidiabetic drugs
CPT/HCPCS: 11042

== ENCOUNTER 2024-06-04 09:19 | Outpatient (CLI) | payer MEDICARE, BC, SELFPAY ==
--- OUTSIDE RECORDS SUMMARY | 2024-06-04 09:21 | XMS_ITS | Continuity of Care Document ---
Author Name [facility] Organization [facility] Care Team Providers Care Hotel Manager Name Role Phone [facility] Unavailable Unavailable Problems Combined list of problems from Department of Defense and Veterans Affairs facilities. It does not include entries that were removed or entered in error. Problem Status Onset Date Problem Type Date of Resolution Comments Source Exposure to potentially hazardous substance ([facility] [id number]) Active 10/05/19 24 Condition Oct 05, 2023 Entered By: VIJI VIVAS Comment: [facility] CH[facility] Documentation Initiative [facility] Depressive Disorder NOS * (ICD-9-CM 311./300.[address]) [address] [facility] Diabetes mellitus (SNOMED CT 68796598) Active Condition [facility] Diabetic neuropathy Active Condition [facility] Foot Pain (ICD-9-CM 719.47) Active Condition Aug 26 10 Entered By: MALINA WORLEY Comment: left 5th metatarsal fracture [facility] History of amputation of lesser toe Active Condition [facility] Hyperlipidemia (SNOMED CT 94894795) Active Condition [facility] Hyperuricemia Active Condition [place] [facility]) Osteopenia Active Condition [place] ([facility]) Other Iatrogenic Hypotension Active Condition [place] [facility]) Personal History of Alcoholism (ICD-9-CM V11.3) Active Condition [facility] Tobacco user (SNOMED CT 919589383) Active Condition [facility] Diagnosis: ICD-10-CM E11.42 Type 2 diabetes mellitus with diabetic polyneuropathy Active Diagnosis [facility] Diana [facility] Diagnosis: ICD-10-CM E11.621 Type 2 diabetes mellitus with foot ulcer Active Diagnosis [facility] Diagnosis: ICD-10-CM Z77.29 Contact with and exposure to other hazardous substances Active Diagnosis [facility] Medications Combined list of outpatient [...] DAY ORAL ACTIVE FISHCHARLEE Bowers A 20[facility] ASPIRIN 81MG TAB,EC TAKE ONE TABLET BY MOUTH EVERY DAY ORAL ACTIVE ANSMYRAAZB ER A 2006 [facility] ATORVASTATI N [place] 40MG TAB TAKE ONE TABLET BY MOUTH EVERY DAY FOR CHOLESTE ROL ORAL ACTIVE 04/18/2025 [id number] NAIDL,TOD D [address] [facility] ATORVASTATI N [place] 40MG TAB TAKE ONE TABLET BY MOUTH EVERY DAY FOR CHOLESTE ROL ORAL DISCONT INUED 04/11/2024 [id number] 4 ABECHARLEE A 2022 90 [facility] ATORVASTATI N CA 40MG TAB TAKE ONE TABLET BY MOUTH EVERY DAY FOR CHOLESTE ROL ORAL DISCONT INUED 07/15/2023 [id number] NAIDL,TOD D 2022 90 [facility] CHOLECALCIF QUINTIN TAB TAKE 5000 UNITS BY MOUTH EVERY DAY ORAL ACTIVE FISHCHARLEE Bowers A 2022 [facility] COENZYME Q10 CAP/TAB TAKE 1 CAPSULE BY MOUTH EVERY DAY ORAL ACTIVE FISHCHARLEE A [address] [facility] CYANOCOBALA MIN 1000MCG TAB TAKE ONE TABLET BY MOUTH EVERY DAY ORAL ACTIVE NAIDL,TOD D 2021 [facility] DICLOFENAC NA 1% GEL,TOP APPLY 4 GRAMS TOPICALL Y FOUR TIMES A DAY NEEDED FOR JOINT PAIN TOPICA L HOLD 05/18/2025 [id number] FISHCHARLEE Bowers A 2023 100 [facility] DICLOFENAC NA 1% GEL,TOP APPLY 4 GRAMS TOPICALL Y FOUR TIMES A DAY NEEDED FOR JOINT PAIN TOPICA L 03/22/2024 [id number] 3 FISHCHARLEE A [address] [facility] FINASTERIDE 5MG TAB TAKE ONE TABLET BY MOUTH EVERY DAY FOR PROSTATE ORAL ACTIVE 04/18/2025 [id number] 4 CHARLEE FISH A 2023 90 [facility] FINASTERIDE 5MG TAB TAKE ONE TABLET BY MOUTH EVERY DAY FOR PROSTATE ORAL DISCONT INUED 04/11/2024 [id number] 4 CHARLEE FISH A 2022 90 [facility] FINASTERIDE 5MG TAB TAKE ONE TABLET BY MOUTH EVERY DAY FOR PROSTATE ORAL DISCONT INUED 07/13/2023 [id number] 3 CHARLEE FISH A 2021 90 [facility] FISH OIL 1000MG (500MG DHA/EPA) CAP,ORAL TAKE 1 CAPSULE BY MOUTH TWICE A DAY ORAL ACTIVE KENRICKMARYEdward Bowers 2006 [facility] INSULIN,GLA RGINE-YFGN 100UNIT/ML INJ PEN,3ML INJECT 24 UNITS UNDER THE SKIN EVERY MORNING FOR DIABETES SUBCUT ANEOUS ACTIVE 04/27/2025 [id number] 4 NAIDL,TOD D 2023 5 [facility] INSULIN,GLA RGINE-YFGN 100UNIT/ML INJ PEN,3ML INJECT 24 UNITS UNDER THE SKIN EVERY EVENING FOR DIABETES SUBCUT ANEOUS DISCONT INUED (EDIT) 04/17/2025 [id number] 4 NAIDL,TOD D 2023 5 [facility] INSULIN,GLA RGINE-YFGN 100UNIT/ML INJ PEN,3ML INJECT 24 UNITS UNDER THE SKIN EVERY EVENING FOR DIABETES SUBCUT ANEOUS DISCONT INUED 08/29/2024 [id number] NAIDL,TOD D 2023 5 [facility] INSULIN,GLA RGINE-YFGN 100UNIT/ML INJ PEN,3ML INJECT 22 UNITS UNDER THE SKIN AT BEDTIME FOR DIABETES SUBCUT ANEOUS DISCONT INUED (EDIT) 01/07/2024 [id number] NAIDL,TOD D 2022 5 [facility] LIDOCAINE 4% CREAM,TOP APPLY MODERATE AMOUNT TOPICALL Y THREE TIMES A DAY FOR PAIN TOPICA L 03/22/2024 [id number] 3 CHARLEE FISH 2022 30 [facility] MAGNESIUM OXIDE 400MG TAB TAKE ONE TABLET BY MOUTH EVERY DAY ORAL ACTIVE CHARLEE FISH 2022 [facility] MENTHOL/MET HYL SALICYLATE (10-15%) LOW CONC. CREAM,TOP APPLY THIN LAYER TOPICALL Y THREE TIMES A DAY FOR MUSCLE PAIN TOPICA L 03/22/2024 [id number] 3 CHARLEE FISH 2022 90 [facility] METFORMIN HCL 1000MG TAB TAKE ONE TABLET BY MOUTH TWICE A DAY FOR DIABETES ORAL ACTIVE 07/16/2024 [id number] 4 NALIANNATOD D 2023 180 [facility] METFORMIN HCL 1000MG TAB TAKE ONE TABLET BY MOUTH TWICE A DAY FOR DIABETES ORAL DISCONT INUED 04/11/2024 [id number] 4 CHARLEE FISH Robinson 2022 180 [facility] METFORMIN HCL 1000MG TAB TAKE ONE TABLET BY MOUTH TWICE A DAY FOR DIABETES ORAL DISCONT INUED 07/15/2023 [id number] 3 DARYLTOD D 2022 180 [facility] OMEPRAZOLE 20MG CAP,EC TAKE ONE CAPSULE BY MOUTH EVERY DAY ON AN EMPTY STOMACH, AT LEAST 30 MINUTES PRIOR TO A MEAL FOR GERD ORAL ACTIVE 05/18/2025 [id number] 4 CHARLEE FISH Robinson 2023 90 [facility] OMEPRAZOLE 20MG CAP,EC TAKE ONE CAPSULE BY MOUTH EVERY DAY ON AN EMPTY STOMACH, AT LEAST 30 MINUTES PRIOR TO A MEAL FOR GERD ORAL DISCONT INUED 03/22/2024 [id number] 4 FISHCHARLEE Bowers 2022 90 [facility] SEMAGLUTIDE 1MG/0.75ML INJ,SOLN,PE N,3ML INJECT 1MG UNDER THE SKIN EVERY WEEK FOR DIABETES SUBCUT ANEOUS DISCONT INUED 11/07/2024 [id number] 4 NAIDL,TOD D 2023 1 [facility] SEMAGLUTIDE 1MG/0.75ML INJ,SOLN,PE N,3ML INJECT 1MG UNDER THE SKIN EVERY WEEK FOR DIABETES SUBCUT ANEOUS DISCONT INUED 11/08/2023 [id number] 4 NAIDL,TOD D 2022 1 [facility] SEMAGLUTIDE 2MG/0.75ML INJ,SOLN,PE N,3ML INJECT 2MG UNDER THE SKIN ONCE WEEKLY FOR DIABETES SUBCUT ANEOUS ACTIVE 05/18/2025 [id number] 4 CHARLEE FISH A 2023 1 [facility] TAMSULOSIN HCL 0.4MG CAP TAKE ONE CAPSULE BY MOUTH EVERY EVENING ORAL ACTIVE 04/18/2025 [id number] 4 CHARLEE FISH A 2023 30 [facility] TAMSULOSIN HCL 0.4MG CAP TAKE ONE CAPSULE BY MOUTH EVERY EVENING ORAL DISCONT INUED 04/13/2024 [id number] CHARLEE FISH A 2022 30 [facility] TAMSULOSIN HCL 0.4MG CAP TAKE ONE CAPSULE BY MOUTH EVERY EVENING ORAL DISCONT INUED 04/11/2024 [id number] 3 CHARLEE FISH A 2022 90 [facility] TURMERIC CAP/TAB TAKE 500 MG BY MOUTH TWICE A DAY ORAL ACTIVE MATTY POWERS 2018 [facility] Allergies, Adverse Reactions, Alerts Combined list of allergies from Department of Defense and Veterans Affairs facilities. It does not include entries that were removed or entered in error. Substance Category Reaction Severity Reaction type Status Date Reported Comments Source VANCOMYCIN Propensity to adverse reactions to drug (finding) [place] active [address] [facility] Immunizations Combined list of available immunizations from the Department of Defense and Veterans Affairs facilities. Immunization Series Date Given Administered By Site Reaction Lot Number CVX Code Drug Alley Cleaner Status Comments Source COVID-19 (PFIZER), MRNA, LNP-S, PF, JOSE-SUCROSE, 30 MCG/0.3 ML (AGES 12+ YEARS) 1 2023 TREVON GRIJALVA LEFT DELTO ID [id number] 309 complet ed [facility] INFLUENZA, HIGH-DOSE, TRIVALENT, PF 2023 TREVON GRIJALVA LEFT DELTO ID [id number] A 135 complet ed [facility] ZOSTER RECOMBINANT 2 2019 187 complet ed [facility] INFLUENZA, INJECTABLE, QUADRIVALENT, PRESERVATIVE FREE 2019 150 complet ed [facility] ZOSTER RECOMBINANT 1 2019 187 complet ed [facility] INFLUENZA, HIGH-DOSE, QUADRIVALENT 2019 197 complet [facility] INFLUENZA, SEASONAL, INJECTABLE, PRESERVATIVE FREE 2017 140 complet ed [facility] INFLUENZA, INJECTABLE, QUADRIVALENT, PRESERVATIVE FREE 2017 150 complet ed [facility] INFLUENZA, INJECTABLE, QUADRIVALENT, PRESERVATIVE FREE 2015 150 complet ed [facility] TDAP [address] [facility] TA PNEUMOCOCCAL CONJUGATE PCV 13 2015 133 complet [facility] TD (ADULT), 5 LF TETANUS TOXOID, PRESERVATIVE FREE, ADSORBED 2015 113 complet ed [facility] INFLUENZA, INJECTABLE, QUADRIVALENT, PRESERVATIVE FREE 2013 150 complet ed [facility] PNEUMOCOCCAL POLYSACCHARID E PPV23 2010 33 complet [facility] INFLUENZA, UNSPECIFIED FORMULATION 2006 88 complet [facility] PNEUMOCOCCAL, UNSPECIFIED FORMULATION 2006 109 complet ed [facility] TD(ADULT) UNSPECIFIED FORMULATION 2006 NONE 139 complet [facility] TETANUS TOXOID, UNSPECIFIED FORMULATION 2006 NONE 112 complet [facility] Results Combined list of recent chemistry, [...] Apr 16, 2024 11:04 AM Reporting Lab: [facility] [address] Performing Lab: [facility] [address] [place] [facility] BASIC METABOLIC PANEL+MG CREATININE [MASS/VOLUM E] IN SERUM OR PLASMA 1.2 mg/dL 0.7 - 1.2 05/17 Specimen Type: PLASMA No comment entered. Ordering Provider: ME LEEROY FISH Report Released Date/Time: Apr 16, 2024 11:04 AM Reporting Lab: [facility] [address] Performing Lab: [facility] [address] [place] [facility] BASIC METABOLIC PANEL+MG UREA NITROGEN [MASS/VOLUM E] IN SERUM OR PLASMA 22 mg/dL 8 - 26 05/17 Specimen Type: PLASMA No comment entered. Ordering Provider: ME LEEROY FISH Report Released Date/Time: Apr 16, 2024 11:04 AM Reporting Lab: [facility] [address] Performing Lab: [facility] [address] [place] [facility] BASIC METABOLIC PANEL+MG GLUCOSE [MASS/VOLUM E] IN SERUM OR PLASMA 187 mg/dL 70 - 100 05/17 H Specimen Type: PLASMA No comment entered. Ordering Provider: ME LEEROY FISH Report Released Date/Time: Apr 16, 2024 11:04 AM Reporting Lab: [facility] [address] Performing Lab: [facility] [address] [place] [facility] BASIC METABOLIC PANEL+MG SODIUM [MOLES/VOLU ME] IN SERUM OR PLASMA 138 mmol/L 136 - 145 05/17 Specimen Type: PLASMA No comment entered. Ordering Provider: ME LEEROY FISH Report Released Date/Time: Apr 16, 2024 11:04 AM Reporting Lab: [facility] [address] Performing Lab: [facility] [address] [place] [facility] BASIC METABOLIC PANEL+MG POTASSIUM [MOLES/VOLU ME] IN SERUM OR PLASMA 4.5 mmol/L 3.5 - 5.1 05/17 Specimen Type: PLASMA No comment entered. Ordering Provider: ME LEEROY FISH Report Released Date/Time: Apr 16, 2024 11:04 AM Reporting Lab: [facility] [address] Performing Lab: [facility] [address] [place] [facility] BASIC METABOLIC PANEL+MG CHLORIDE [MOLES/VOLU ME] IN SERUM OR PLASMA 102 mmol/L 98 - 107 05/17 Specimen Type: PLASMA No comment entered. Ordering Provider: ME LEEROY FISH Report Released Date/Time: Apr 16, 2024 11:04 AM Reporting Lab: [facility] [address] Performing Lab: [facility] [address] [place] [facility] BASIC METABOLIC PANEL+MG CARBON DIOXIDE, TOTAL [MOLES/VOLU ME] IN SERUM OR PLASMA 25 mmol/L 22 - 29 05/17 Specimen Type: PLASMA No comment entered. Ordering Provider: ME LEEROY FISH Report Released Date/Time: Apr 16, 2024 11:04 AM Reporting Lab: [facility] [address] Performing Lab: [facility] [address] [place] [facility] BASIC METABOLIC PANEL+MG CALCIUM [MASS/VOLUM E] IN SERUM OR PLASMA 9.7 mg/dL 8.4 - 10.2 05/17 Specimen Type: PLASMA No comment entered. Ordering Provider: ME LEEROY FISH Report Released Date/Time: Apr 16, 2024 11:04 AM Reporting Lab: [facility] [address] Performing Lab: [facility] [address] [place] [facility] BASIC METABOLIC PANEL+MG MAGNESIUM [MASS/VOLUM E] IN SERUM OR PLASMA 1.7 mg/dL 1.6 - 2.6 05/17 Specimen Type: PLASMA No comment entered. Ordering Provider: ME LEEROY FISH Report Released Date/Time: Apr 16, 2024 11:04 AM Reporting Lab: [facility] [address] Performing Lab: [facility] [address] [place] [facility] BASIC METABOLIC PANEL+MG ANION GAP IN SERUM OR PLASMA 11 mmol/L 5 - 15 05/17 Specimen Type: PLASMA No comment entered. Ordering Provider: ME LEEROY FISH Report Released Date/Time: Apr 16, 2024 11:04 AM Reporting Lab: [facility] [address] Performing Lab: [facility] [address] [place] [facility] BASIC METABOLIC PANEL+MG GLOMERULAR FILTRATION RATE/1.73 SQ M.PREDICTED [VOLUME RATE/AREA] IN SERUM, PLASMA OR BLOOD BY CREATININE- BASED FORMULA (CKD-EPI 2020) 62 60 05/17 Specimen Type: PLASMA No comment entered. Ordering Provider: ME LEEROY FISH Report Released Date/Time: Apr 16, 2024 11:04 AM Reporting Lab: [facility] [address] Performing Lab: [facility] [address] [place] [facility] CBC & DIFF LEUKOCYTES [#/VOLUME] IN BLOOD BY AUTOMATED COUNT 8.8 4.0 - 11.0 05/17 Specimen Type: BLOOD Comment: Automated Differentia l Performed Ordering Provider: ME LEEROY FISH Report Released Date/Time: Apr 16, 2024 11:04 AM Reporting Lab: [facility] [address] Performing Lab: [facility] [address] [place] [facility] CBC & DIFF ERYTHROCYTE S [#/VOLUME] IN BLOOD BY AUTOMATED COUNT 4.74 4.60 - 6.20 05/17 Specimen Type: BLOOD Comment: Automated Differentia l Performed Ordering Provider: ME LEEROY FISH Report Released Date/Time: Apr 16, 2024 11:04 AM Reporting Lab: [facility] [address] Performing Lab: [facility] [address] [place] [facility] CBC & DIFF HEMOGLOBIN [MASS/VOLUM E] IN BLOOD 13.1 g/dL 13.5 - 17.9 05/17 L Specimen Type: BLOOD Comment: Automated Differentia l Performed Ordering Provider: ME LEEROY FISH Report Released Date/Time: Apr 16, 2024 11:04 AM Reporting Lab: [facility] [address] Performing Lab: [facility] [address] [place] [facility] CBC & DIFF HEMATOCRIT [VOLUME FRACTION] OF BLOOD BY AUTOMATED COUNT 40.7 41.0 - 54.0 05/17 L Specimen Type: BLOOD Comment: Automated Differentia l Performed Ordering Provider: ME LEEROY FISH Report Released Date/Time: Apr 16, 2024 11:04 AM Reporting Lab: [facility] [address] Performing Lab: [facility] [address] [place] [facility] CBC & DIFF MCV [ENTITIC VOLUME] BY AUTOMATED COUNT 85.9 fL 80.0 - 100.0 05/17 Specimen Type: BLOOD Comment: Automated Differentia l Performed Ordering Provider: ME LEEROY FISH Report Released Date/Time: Apr 16, 2024 11:04 AM Reporting Lab: [facility] [address] Performing Lab: [facility] [address] [place] [facility] CBC & DIFF MCH [ENTITIC MASS] BY AUTOMATED COUNT 27.6 pg 27.0 - 33.0 05/17 Specimen Type: BLOOD Comment: Automated Differentia l Performed Ordering Provider: ME LEEROY FISH Report Released Date/Time: Apr 16, 2024 11:04 AM Reporting Lab: [facility] [address] Performing Lab: [facility] [address] [place] [facility] CBC & DIFF MCHC [MASS/VOLUM E] BY AUTOMATED COUNT 32.2 g/dL 32.0 - 37.5 05/17 Specimen Type: BLOOD Comment: Automated Differentia l Performed Ordering Provider: ME LEEROY FISH Report Released Date/Time: Apr 16, 2024 11:04 AM Reporting Lab: [facility] [address] Performing Lab: [facility] [address] [place] [facility] CBC & DIFF PLATELETS [#/VOLUME] IN BLOOD BY AUTOMATED COUNT 185 150 - 400 05/17 Specimen Type: BLOOD Comment: Automated Differentia l Performed Ordering Provider: ME LEEROY FISH Report Released Date/Time: Apr 16, 2024 11:04 AM Reporting Lab: [facility] [address] Performing Lab: [facility] [address] [place] [facility] CBC & DIFF PLATELET MEAN VOLUME [ENTITIC VOLUME] IN BLOOD BY AUTOMATED COUNT 9.6 fL 9.1 - 13.0 05/17 Specimen Type: BLOOD Comment: Automated Differentia l Performed Ordering Provider: ME LEEROY FISH Report Released Date/Time: Apr 16, 2024 11:04 AM Reporting Lab: [facility] [address] Performing Lab: [facility] [address] [place] [facility] CBC & DIFF NEUTROPHILS /100 LEUKOCYTES IN BLOOD BY MANUAL COUNT 68.6 40.0 - 80.0 05/17 Specimen Type: BLOOD Comment: Automated Differentia l Performed Ordering Provider: ME LEEROY FISH Report Released Date/Time: Apr 16, 2024 11:04 AM Reporting Lab: [facility] [address] Performing Lab: [facility] [address] [place] [facility] CBC & DIFF LYMPHOCYTES /100 LEUKOCYTES IN BLOOD BY MANUAL COUNT 21.8 15.0 - 45.0 05/17 Specimen Type: BLOOD Comment: Automated Differentia l Performed Ordering Provider: ME LEEROY FISH Report Released Date/Time: Apr 16, 2024 11:04 AM Reporting Lab: [facility] [address] Performing Lab: [facility] [address] [place] [facility] CBC & DIFF MONOCYTES/1 00 LEUKOCYTES IN BLOOD BY AUTOMATED COUNT 5.9 2.0 - 12.0 05/17 Specimen Type: BLOOD Comment: Automated Differentia l Performed Ordering Provider: ME LEEROY FISH Report Released Date/Time: Apr 16, 2024 11:04 AM Reporting Lab: [facility] [address] Performing Lab: [facility] [address] [place] [facility] CBC & DIFF EOSINOPHILS /100 LEUKOCYTES IN BLOOD BY AUTOMATED COUNT 2.9 0.0 - 6.0 05/17 Specimen Type: BLOOD Comment: Automated Differentia l Performed Ordering Provider: ME LEEROY FISH Report Released Date/Time: Apr 16, 2024 11:04 AM Reporting Lab: [facility] [address] Performing Lab: [facility] [address] [place] [facility] CBC & DIFF BASOPHILS/1 00 LEUKOCYTES IN BLOOD BY MANUAL COUNT 0.5 0.0 - 2.0 05/17 Specimen Type: BLOOD Comment: Automated Differentia l Performed Ordering Provider: ME LEEROY FISH Report Released Date/Time: Apr 16, 2024 11:04 AM Reporting Lab: [facility] [address] Performing Lab: [facility] [address] [place] [facility] CBC & DIFF ERYTHROCYTE DISTRIBUTIO N WIDTH [RATIO] BY AUTOMATED COUNT 15.0 11.5 - 14.5 05/17 H Specimen Type: BLOOD Comment: Automated Differentia l Performed Ordering Provider: ME LEEROY FISH Report Released Date/Time: Apr 16, 2024 11:04 AM Reporting Lab: [facility] [address] Performing Lab: [facility] [address] [place] [facility] CBC & DIFF LYMPHOCYTES [#/VOLUME] IN BLOOD BY AUTOMATED COUNT 1.9 1.0 - 4.0 05/17 Specimen Type: BLOOD Comment: Automated Differentia l Performed Ordering Provider: ME LEEROY FISH Report Released Date/Time: Apr 16, 2024 11:04 AM Reporting Lab: [facility] [address] Performing Lab: [facility] [address] [place] [facility] CBC & DIFF MONOCYTES [#/VOLUME] IN BLOOD BY AUTOMATED COUNT 0.5 0.1 - 1.0 05/17 Specimen Type: BLOOD Comment: Automated Differentia l Performed Ordering Provider: ME LEEROY FISH Report Released Date/Time: Apr 16, 2024 11:04 AM Reporting Lab: [facility] [address] Performing Lab: [facility] [address] [place] [facility] CBC & DIFF NEUTROPHILS [#/VOLUME] IN BLOOD BY AUTOMATED COUNT 6.0 2.0 - 7.7 05/17 Specimen Type: BLOOD Comment: Automated Differentia l Performed Ordering Provider: ME LEEROY FISH Report Released Date/Time: Apr 16, 2024 11:04 AM Reporting Lab: [facility] [address] Performing Lab: [facility] [address] [place] [facility] CBC & DIFF EOSINOPHILS [#/VOLUME] IN BLOOD BY AUTOMATED COUNT 0.3 0.0 - 0.5 05/17 Specimen Type: BLOOD Comment: Automated Differentia l Performed Ordering Provider: ME LEEROY FISH Report Released Date/Time: Apr 16, 2024 11:04 AM Reporting Lab: [facility] [address] Performing Lab: [facility] [address] [place] [facility] CBC & DIFF BASOPHILS [#/VOLUME] IN BLOOD BY AUTOMATED COUNT 0.0 0.0 - 0.2 05/17 Specimen Type: BLOOD Comment: Automated Differentia l Performed Ordering Provider: ME LEEROY FIHS Report Released Date/Time: Apr 16, 2024 11:04 AM Reporting Lab: [facility] [address] Performing Lab: [facility] [address] [place] [facility] CBC & DIFF IG(META,MYE LO,PRO) 0.3 05/17 Specimen Type: BLOOD Comment: Automated Differentia l Performed Ordering Provider: ME LEEROY FISH Report Released Date/Time: Apr 16, 2024 11:04 AM Reporting Lab: [facility] [address] Performing Lab: [facility] [address] [place] [facility] CBC & DIFF IMMATURE GRANULOCYTE S [PRESENCE] IN BLOOD BY AUTOMATED COUNT 0.0 0.0 - 0.1 05/17 Specimen Type: BLOOD Comment: Automated Differentia l Performed Ordering Provider: ME LEEROY FISH Report Released Date/Time: Apr 16, 2024 11:04 AM Reporting Lab: [facility] [address] Performing Lab: [facility] [address] [place] [facility] HEMOGLOBI N [...] Aug 21, 2022 03:48 PM Reporting Lab: [facility] [address] Performing Lab: [facility] [address] [place] [facility] BASIC METABOLIC PANEL+MG CREATININE [MASS/VOLUM E] IN SERUM OR PLASMA 1.2 mg/dL 0.7 - 1.2 03/22 Specimen Type: PLASMA No comment entered. Ordering Provider: ME LEEROY FISH Report Released Date/Time: Aug 21, 2022 03:48 PM Reporting Lab: [facility] [address] Performing Lab: [facility] [address] [place] [facility] BASIC METABOLIC PANEL+MG UREA NITROGEN [MASS/VOLUM E] IN SERUM OR PLASMA 15 mg/dL 8 - 03/22 Specimen Type: PLASMA No comment entered. Ordering Provider: ME LEEROY FISH Report Released Date/Time: Aug 21, 2022 03:48 PM Reporting Lab: [facility] [address] Performing Lab: [facility] [address] [place] [facility] BASIC METABOLIC PANEL+MG GLUCOSE [MASS/VOLUM E] IN SERUM OR PLASMA 145 mg/dL 70 - 100 03/22 H Specimen Type: PLASMA No comment entered. Ordering Provider: ME LEEROY FISH Report Released Date/Time: Aug 21, 2022 03:48 PM Reporting Lab: [facility] [id number] Performing Lab: [facility] [address] [place] [facility]IC METABOLIC PANEL+MG SODIUM [MOLES/VOLU ME] IN SERUM OR PLASMA 138 mmol/L 136 - 145 03/22 Specimen Type: PLASMA No comment entered. Ordering Provider: ME LEEROY FISH Report Released Date/Time: Aug 21, 2022 03:48 PM Reporting Lab: [facility] [id number] Performing Lab: [facility] [address] [place] [facility]OLIC PANEL+MG POTASSIUM [MOLES/VOLU ME] IN SERUM OR PLASMA 4.5 mmol/L 3.5 - 5.1 03/22 Specimen Type: PLASMA No comment entered. Ordering Provider: ME LEEROY FISH Report Released Date/Time: Aug 21, 2022 03:48 PM Reporting Lab: [facility] [id number] Performing Lab: [facility] [address] [place] [facility] METABOLIC PANEL+MG CHLORIDE [MOLES/VOLU ME] IN SERUM OR PLASMA 101 mmol/L 98 - 107 03/22 Specimen Type: PLASMA No comment entered. Ordering Provider: ME LEEROY FISH Report Released Date/Time: Aug 21, 2022 03:48 PM Reporting Lab: [facility] [address] Performing Lab: [facility] [address] [place] [facility] BASIC METABOLIC PANEL+MG CARBON DIOXIDE, TOTAL [MOLES/VOLU ME] IN SERUM OR PLASMA 27 mmol/L 22 - 29 03/22 Specimen Type: PLASMA No comment entered. Ordering Provider: ME LEEROY FISH Report Released Date/Time: Aug 21, 2022 03:48 PM Reporting Lab: [facility] [address] Performing Lab: [facility] [address] [place] [facility] BASIC METABOLIC PANEL+MG CALCIUM [MASS/VOLUM E] IN SERUM OR PLASMA 10.0 mg/dL 8.4 - 10.2 03/22 Specimen Type: PLASMA No comment entered. Ordering Provider: ME LEEROY FISH Report Released Date/Time: Aug 21, 2022 03:48 PM Reporting Lab: [facility] [address] Performing Lab: [facility] [address] [place] [facility] BASIC METABOLIC PANEL+MG MAGNESIUM [MASS/VOLUM E] IN SERUM OR PLASMA 1.9 mg/dL 1.6 - 2.6 03/22 Specimen Type: PLASMA No comment entered. Ordering Provider: ME LEEROY FISH Report Released Date/Time: Aug 21, 2022 03:48 PM Reporting Lab: [facility] [address] Performing Lab: [facility] [address] [place] [facility] BASIC METABOLIC PANEL+MG ANION GAP IN SERUM OR PLASMA 10 mmol/L 5 - 15 03/22 Specimen Type: PLASMA No comment entered. Ordering Provider: ME LEEROY FISH Report Released Date/Time: Aug 21, 2022 03:48 PM Reporting Lab: [facility] [address] Performing Lab: [facility] [address] [place] [facility] BASIC METABOLIC PANEL+MG GLOMERULAR FILTRATION RATE/1.73 SQ M.PREDICTED [VOLUME RATE/AREA] IN SERUM, PLASMA OR BLOOD BY CREATININE- BASED FORMULA (CKD-EPI 2020) 63 60 03/22 Specimen Type: PLASMA No comment entered. Ordering Provider: ME LEEROY FISH Report Released Date/Time: Aug 21, 2022 03:48 PM Reporting Lab: [facility] [address] Performing Lab: [facility] [address] [place] [facility] HEMOGLOBI N A1C [...] December 22, 2021 03:46 PM Reporting Lab: [facility] [address] Performing Lab: [facility] [address] [place] [facility] BASIC METABOLIC PANEL+MG CREATININE [MASS/VOLUM E] IN SERUM OR PLASMA 0.9 mg/dL 0.7 - 1.2 08/18 Specimen Type: PLASMA No comment entered. Ordering Provider: ME LEEROY FISH Report Released Date/Time: December 22, 2021 03:46 PM Reporting Lab: [facility] [address] Performing Lab: [facility] [address] [place] [facility] BASIC METABOLIC PANEL+MG UREA NITROGEN [MASS/VOLUM E] IN SERUM OR PLASMA 12 mg/dL 8 - 26 08/18 Specimen Type: PLASMA No comment entered. Ordering Provider: ME LEEROY FISH Report Released Date/Time: December 22, 2021 03:46 PM Reporting Lab: [facility] [address] Performing Lab: [facility] [address] [place] [facility] BASIC METABOLIC PANEL+MG GLUCOSE [MASS/VOLUM E] IN SERUM OR PLASMA 184 mg/dL 70 - 100 08/18 H Specimen Type: PLASMA No comment entered. Ordering Provider: ME LEEROY FISH Report Released Date/Time: December 22, 2021 03:46 PM Reporting Lab: [facility] [address] Performing Lab: [facility] [address] [place] [facility] BASIC METABOLIC PANEL+MG SODIUM [MOLES/VOLU ME] IN SERUM OR PLASMA 137 mmol/L 136 - 145 08/18 Specimen Type: PLASMA No comment entered. Ordering Provider: ME LEEROY FISH Report Released Date/Time: December 22, 2021 03:46 PM Reporting Lab: [facility] [address] Performing Lab: [facility] [address] [place] [facility] BASIC METABOLIC PANEL+MG POTASSIUM [MOLES/VOLU ME] IN SERUM OR PLASMA 3.9 mmol/L 3.5 - 5.1 08/18 Specimen Type: PLASMA No comment entered. Ordering Provider: ME LEEROY FISH Report Released Date/Time: December 22, 2021 03:46 PM Reporting Lab: [facility] [address] Performing Lab: [facility] [address] [place] [facility] BASIC METABOLIC PANEL+MG CHLORIDE [MOLES/VOLU ME] IN SERUM OR PLASMA 102 mmol/L 98 - 107 08/18 Specimen Type: PLASMA No comment entered. Ordering Provider: ME LEEROY FISH Report Released Date/Time: December 22, 2021 03:46 PM Reporting Lab: [facility] [address] Performing Lab: [facility] [address] [place] [facility] BASIC METABOLIC PANEL+MG CARBON DIOXIDE, TOTAL [MOLES/VOLU ME] IN SERUM OR PLASMA 26 mmol/L 22 - 29 08/18 Specimen Type: PLASMA No comment entered. Ordering Provider: ME LEEROY FISH Report Released Date/Time: December 22, 2021 03:46 PM Reporting Lab: [facility] [address] Performing Lab: [facility] [address] [place] [facility] BASIC METABOLIC PANEL+MG CALCIUM [MASS/VOLUM E] IN SERUM OR PLASMA 9.4 mg/dL 8.4 - 10.2 08/18 Specimen Type: PLASMA No comment entered. Ordering Provider: ME LEEROY FISH Report Released Date/Time: December 22, 2021 03:46 PM Reporting Lab: [facility] [address] Performing Lab: [facility] [address] [facility] BASIC METABOLIC PANEL+MG MAGNESIUM [MASS/VOLUM E] IN SERUM OR PLASMA 1.6 mg/dL 1.6 - 2.6 08/18 Specimen Type: PLASMA No comment entered. Ordering Provider: ME LEEROY FISH Report Released Date/Time: December 22, 2021 03:46 PM Reporting Lab: [facility] [address] Performing Lab: [facility] [address] [facility] BASIC METABOLIC PANEL+MG ANION GAP IN SERUM OR PLASMA 9 mmol/L 5 - 15 08/18 Specimen Type: PLASMA No comment entered. Ordering Provider: ME LEEROY FISH Report Released Date/Time: December 22, 2021 03:46 PM Reporting Lab: [facility] [address] Performing Lab: [facility] [address] [facility] BASIC METABOLIC PANEL+MG GLOMERULAR FILTRATION RATE/1.73 SQ M.PREDICTED [VOLUME RATE/AREA] IN SERUM, PLASMA OR BLOOD BY CREATININE- BASED FORMULA (CKD-EPI) 89 60 08/18 Specimen Type: PLASMA No comment entered. Ordering Provider: ME LEEROY FISH Report Released Date/Time: December 22, 2021 03:46 PM Reporting Lab: [facility] [address] Performing Lab: [facility] [address] [facility] Vital Signs Combined list of inpatient and outpatient Vital Signs from Department of Defense and Veterans Affairs, ranging from 12 months to all on record, depending upon the facility. Vital Sign Value Date Comments Source SYSTOLIC BLOOD PRESSURE 123 05/17/2024 14:50:52 [facility] DIASTOLIC BLOOD PRESSURE 79 05/17/2024 14:50:52 [facility] PULSE OXIMETRY 95 05/17/2024 14:50:52 M [facility] WEIGHT 240.8 05/17/2024 14:50:52 [facility] BMI 35kg/m2 05/17/2024 14:50:52 [facility] PAIN 0 05/17/2024 14:50:52 [facility] HEIGHT 70 05/17/2024 14:50:52 [facility] TEM[facility] 97.8 05/17/2024 14:50:52 [facility] PULSE 113 05/17/2024 14[facility]50:52 [facility] Encounters Combined list of: 1) 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 2) Encounters from the Department of Defense facilities going back up to 280 months. Location Location Details Encounter Type Encounter Number Reason For Visit Attending Provider ADM Date DC Date Status Disposition Source [facility] HC PRO PHONE CALL 11-20 MIN [id number] Diagnos is: ICD-10- CM E11.42 Type 2 diabete s mellitu s with diabeti c polyneu ropathy
NAIDL,KARI 12/07 [facility] Outpatient Encounter [id number] Diagnos is: ICD-10- CM Z77.29 Contact with and exposur e to other [facility]<br/ > JEANINE,MATH ILDE J 12/27 [facility] Outpatient Encounter [id number] Diagnos is: ICD-10- CM Z77.29 Contact with and exposur e to other [facility]<br/ > JEANINE,MATH ILDE J 12/27 [facility] HC PRO PHONE CALL 11-20 MIN [id number] Diagnos is: ICD-10- CM E11.42 Type 2 diabete s mellitu s with diabeti c polyneu ropathy
NAIDL,KARI 01/06 [facility] Outpatient Encounter [id number] 03[facility]10 [facility] HC PRO PHONE CALL 11-20 MIN [id number] Diagnos is: ICD-10- CM E11.42 Type 2 diabete s mellitu s with diabeti c polyneu ropathy
NAIDL,KARI 03/14 [place] [facility] [place] [facility] OFF[place] O/P EST LOW 20-29 MIN [id number] Diagnos is: ICD-10- CM E11.621 Type 2 diabete s mellitu s with foot ulcer<b r/> Rhiannon FISH 03/22 [place] [facility] [place] [facility] HC PRO PHONE CALL 21-30 MIN [id number] Diagnos is: ICD-10- CM E11.42 Type 2 diabete s mellitu s with diabeti c polyneu ropathy
NAIDL,KARI 04/18 [place] [facility] [place] [facility] HC PRO PHONE CALL 21-30 MIN [id number] Diagnos is: ICD-10- CM E11.42 Type 2 diabete s mellitu s with diabeti c polyneu ropathy
NAIDL,KARI 07/11 [place] [facility] [place] [facility] MTMS BY PHARM ADDL 15 MIN [id number] Diagnos is: ICD-10- CM E11.42 Type 2 diabete s mellitu s with diabeti c polyneu ropathy
NAIDL,KARI 08/29 [place] [facility] [place] [facility] MTMS BY PHARM EST 15 MIN [id number] Diagnos is: ICD-10- CM E11.42 Type 2 diabete s mellitu s with diabeti c polyneu ropathy
AWKER,SOLEDAD L 10/10 [place] [facility] [place] [facility] Outpatient Encounter [id number] 10/16 [place] [facility] [place] [facility] MTMS BY PHARM EST 15 MIN [id number] Diagnos is: ICD-10- CM E11.621 Type 2 diabete s mellitu s with foot ulcer<b r/> NAIDL,KARI 11/06 [place] [facility] [place] [facility] MTMS BY PHARM ADDL 15 MIN [id number] Diagnos is: ICD-10- CM E11.42 Type 2 diabete s mellitu s with diabeti c polyneu ropathy
NAIDL,KARI 11/22 [place] [facility] [place] [facility] MTMS BY PHARM ADDL 15 MIN [id number] Diagnos is: ICD-10- CM E11.42 Type 2 diabete s mellitu s with diabeti c polyneu ropathy
NAIDL,KARI 01/17 [place] [facility] [place] [facility] Outpatient Encounter [id number] Diagnos is: ICD-10- CM E11.42 Type 2 diabete s mellitu s with diabeti c polyneu ropathy
MILAGRO TONEY 01/18 [place] [facility] [place] [facility] QNHP OL DIG ASSMT&MGMT 5-10 [id number] Diagnos is: ICD-10- CM E11.42 Type 2 diabete s mellitu s with diabeti c polyneu ropathy
MOE CHOWDHURY 01/18 [place] [facility] [place] [facility] MTMS BY PHARM EST 15 MIN [id number] Diagnos is: ICD-10- CM E11.42 Type 2 diabete s mellitu s with diabeti c polyneu ropathy
NAIDL,KARI 02/21 [place] [facility] [place] [facility] Outpatient Encounter [id number] RORY CAPPS 02/26 [place] [facility] [place] [facility] Outpatient Encounter [id number] 03/14 [place] [facility] [place] [facility] QNHP OL DIG ASSMT&MGMT 11-20 [id number] Diagnos is: ICD-10- CM E11.42 Type 2 diabete s mellitu s with diabeti c polyneu ropathy
NAIDL,KARI 03/27 [place] [facility] [place] [facility] Outpatient Encounter [id number] 04/16 [facility] [facility] MTMS BY PHARM EST 15 MIN [id number] Diagnos is: ICD-10- CM E11.42 Type 2 diabete s mellitu s with diabeti c polyneu ropathy
KARI BRITO 04/26 [facility] [facility] OFFICE O/P EST MOD 30 MIN [id number] Diagnos is: ICD-10- CM E11.42 Type 2 diabete s mellitu s with diabeti c polyneu ropathy
Rhiannon FISH 05/17 [facility] Social History Combined list of available smoking, tobacco, and other social history from Department of Defense and Veterans Affairs facilities. Social History Type Response Date Comment Sourc e Tobacco smoking status NHIS [place]-TOBACCO QUIT 15 YRS OR MORE 05/17/2024 [facility] History of tobacco use VT-TOBACCO FORMER USER 05/17/2024 [facility] History of tobacco use VT-TOBACCO FORMER USER 08/18/2022 [facility] History of tobacco use VT-TOBACCO FORMER USER 05/03/2021 [facility] History of tobacco use VT-TOBACCO FORMER USER 04/21/2020 [facility] History of tobacco use FORMER TOBACCO US E >1Y <7Y 04/03/2018 [facility] History of tobacco use CURRENT TOBACCO USER 03/09/2007 [facility] Plan of Care List of future care activities from Department of Veterans Affairs facilities. Additional future care activities may be listed in the Assessment and Plan section. Date/Time Care Activity Care Activity Detail Facili ty 06/11/2024 AMBULATORY - NONE AMBULATORY - NONE [facility] Advance Directives List of completed, amended, or rescinded Advance Directives on record at Department of [facility] Affairs facilities. An actual copy of the Directive is not included. Date Advance Directive Provider Source 06/22/2021 ADVANCE DIRECTIVE DISCUSSION [facility]YSON [facility]RAF [facility] 06/22/2021 ADVANCE DIRECTIVE [facility]YSON GRAF [facility] 03/09/2007 ADVANCE DIRECTIVE [facility]
--- OUTSIDE RECORDS SUMMARY | 2024-06-04 09:21 | XMS_ITS | Clinical Summary ---
Author Organization [facility] Address [address] [place] [address] Care Team Providers Care [employer] Senior Sergeant Name Role Phone Post, Dave Wakefield MD Primary Care Provider [phone] Medications sulfamethoxazole -trimethoprim (BACTRIM DS/SEPTRA DS) [phone] [...] on file Legal Sex Male 3:10 AM DEVELOPMENT OFFICER Gender Identity Not on file Sexual Orientation Not on file Last Filed Vital Signs Vital Sign Reading Time Taken Comments Blood Pressure 148/85 06/26/2018 5:58 PM DEVELOPMENT OFFICER Pulse 90 06/26/2018 5:58 PM DEVELOPMENT OFFICER Temperature 36.6 ??C (97.8 ??F) 06/26/2018 5:58 PM CS T Respiratory Rate 18 06/26/2018 5:58 PM DEVELOPMENT OFFICER Oxygen Saturation 95% 06/26/2018 7:00 PM DEVELOPMENT OFFICER Inhaled Oxygen Concentration - - Weight 112 kg (247 lb) 06/26/2018 5:58 PM DEVELOPMENT OFFICER Height 180.3 cm (5' 11) 06/26/2018 5:58 PM DEVELOPMENT OFFICER Body Mass Index 34.45 06/26/2018 5:58 PM DEVELOPMENT OFFICER Plan of Treatment Not on file Insurance MEDICARE [facility] MEDICARE SUPPLEMENT Care Teams [employer] Senior Sergeant Relationship Specialty Start Date End Date Post, Dave Wakefield MD PCP - General Internal Medicine 06/26/18
--- OUTSIDE RECORDS SUMMARY | 2024-06-04 09:21 | XMS_ITS | Encounter Summary ---
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 [place] [facility] [place] Address [address] [place] [address] Care Team Providers Care Surgical Services Tech Name Role Phone CHARLEE FISH Primary Care [...] MEDIC ARE SUPPL EMENT Jul 31, 2018 [id number] [phone] RENBRITTNEY,KANE ALEX PATIENT [place] MEDICARE SUPPLEMEN [place] MEDIC ARE SUPPL EMENT Jul 31, 2018 [id number] [phone] RENAUX,JU ALEX PATIENT [place] MCR ([place]NR) MEDICARE ADVANTAGE MCR (WNR) Jul 31, 2017 [id number] [phone] RENAUX,JU ALEX PATIENT [place] MEDICARE SUPPLEMEN SCOT MEDIC ARE SUPPL EMENT Jul 31, 2018 [id number] [phone] RENAUX,JU ALEX PAT[place] SUPPLEMEN [place] MEDIC ARE SUPPL EMENT Jul 31, 2018 [id number] [phone] RENAUX,JU ALEX PATIENT MEDICARE (WNR) MEDICARE (M) PART A May 31, 2011 PART A [id number] [phone] KANE PÉREZ PATIENT MEDICARE (WNR) MEDICARE (M) PART B May 31, 2011 PART B [id number] [phone] KANE PÉREZ PATIENT Selected Encounter This section includes the information on record at [place] for the Encounter. Date/Time Encounter Type Encounter Description Reason Provider Source May 17, 2024 02:45 PM OFFICE O/P EST MOD 30 MIN PRIMARY CARE/MEDICINE ICD-10-CM E11.42 Type 2 diabetes mellitus with diabetic polyneuropathy NENA FISH A [facility] Encounter Template Text not used by [place] Assessments - Encounter Diagnoses This section includes the primary and secondary diagnoses documented for the Encounter. Date/Time Primary/Secondary Diagnosis Diagnosis Name Provider Source May 28, 2024 01:06 PM PRIMARY Type 2 diabetes mellitus with diabetic polyneuropathy NENA FISH A [facility] May 28, 2024 01:06 PM SECONDARY Encounter for immunization TREVON GRIJALVA [facility] May 28, 2024 01:06 PM SECONDARY Other fatigue NENA FISH A [facility] May 28, 2024 01:06 PM SECONDARY Personal history of diabetic foot ulcer NENA FISH A [facility] May 28, 2024 01:06 PM SECONDARY Tobacco use NENA FISH A [facility] May 28, 2024 01:06 PM SECONDARY Type 2 diabetes mellitus with diabetic neuropathy, unsp NENA FISH A [facility] May 28, 2024 01:06 PM SECONDARY Type 2 diabetes mellitus with foot ulcer NENA FISH A [facility] Plan of Treatment: Future Appointments (+ 6 months) and Future Tests (+/- 45 days) The Plan of Treatment section includes future care activities for the patient from all [place] treatmentfacilities. This section includes future appointments and future orders which are active, pending or scheduled. Future Appointments This section includes appointments that were scheduled to occur 6 months from the date of the Encounter, up to a maximum of 20 appointments. The data comes from all [place] treatment facilities. Appointment Date/Time Appointment Type Appointme nt Facility Name Jun 11, 2024 11:30 AM AMBULATORY - NONE [facility] Lab Results: +/- 30 days of the encounter This section includes the Chemistry and Hematology Lab Results on record with [place] for the patient. Radiology Reports and Pathology Reports are provided separately, in subsequent sections. Lab Results This section contains the Chemistry/Hematology Results that were resulted 30 days before or 30 daysafter the date of the Encounter. Date/Time Source Result Type Result - Unit Interpretation Reference Range Comment May 17, 2024 01:55 PM [facility] HEMOGLOBIN A1C Specimen Type: BLOOD Comment: Values [...] Apr 16, 2024 11:04 AM Reporting Lab: [facility] [id number] Performing Lab: [facility] [id number] HEMOGLOBIN A1C 8.4 H 4.0-6.0 May 17, 2024 01:55 PM [facility] BASIC METABOLIC PANEL+MG Specimen Type: PLASMA No comment entered. Ordering Provider: SOSA FISH Report Released Date/Time: Apr 16, 2024 11:04 AM Reporting Lab: [facility] [id number] Performing Lab: [facility] [id number] CREATININE 1.2 mg/dL 0.7-1.2 UREA NITROGEN 22 mg/dL 8-26 GLUCOSE 187 mg/dL H 70-100 SODIUM 138 mmol/L 136-145 POTASSIUM 4.5 mmol/L 3.5-5.1 CHLORIDE 102 mmol/L 98-107 CO2 25 mmol/L 22-29 CALCIUM 9.7 mg/dL 8.4-10.2 MAGNESIUM 1.7 mg/dL 1.6-2.6 ANION GAP 11 mmol/L 5-15 .CREAT EGFR(CKD-EPI ) 62 >60 May 17, 2024 01:55 PM [facility] CBC & DIFF Specimen Type: BLOOD Comment: Automated Differential Performed Ordering Provider: SOSA FISH Report Released Date/Time: Apr 16, 2024 11:04 AM Reporting Lab: [facility] [id number] Performing Lab: [facility] [phone] WBC 8.8 4.0-11.0 RBC 4.74 4.60-6.20 HGB [...] 113 123/79 95 [address] [facility] [facility] Immunizations: All administered on the encounter date [...] and tobacco- related health factors from the [place] facility where the Encounter took place. Current Smoking Status This section includes the most current smoking, or tobacco-related health factor, from the [place] facility where the Encounter took place. Date/Time Current Smoking Status Comment Facil ity May 17, 2024 02:45 PM VA-TOBACCO QUIT 15 YRS OR MORE [facility] Tobacco Use History This section includes a history of the smoking, or tobacco-related health factors, that were collected on or before the date of the Encounter. The data comes from the [place] facility where the Encounter took place. Date/Time Smoking Status/Tobacco Use Comment F acility May 17, 2024 02:45 PM VA-TOBACCO QUIT 15 YRS OR MORE [facility] Aug 18, 2022 08:30 AM VA-TOBACCO FORMER USER [facility] Aug 18, 2022 08:30 AM VA-TOBACCO QUIT 15 YRS OR MORE [facility] May 03, 2021 08:00 AM VA-TOBACCO FORMER USER [facility] May 03, 2021 08:00 AM VA-TOBACCO QUIT 15 YRS OR MORE [facility] Apr 21, 2020 09:00 AM VA-TOBACCO FORMER USER [facility] Apr 21, 2020 09:00 AM VA-TOBACCO QUIT 15 YRS OR MORE [facility] Apr 03, 2018 03:16 PM FORMER TOBACCO USE >1Y <7Y [facility] Mar 09, 2007 10:41 AM CURRENT TOBACCO USER [facility] Advance Directives: All historical and current Section Date Range: From patient's date of to the date document was created. This section includes ALL of a patient's completed or amended [place] Advance and Rescinded Directives. The entries below indicate that a directive exists for the patient, but an actual copy is not included with this document. The data comes from all [facility]. Date Advance Directives Provider Source Jun 22, 2021 ADVANCE DIRECTIVE DISCUSSION ALLYSON GRAF [facility] Jun 22, 2021 ADVANCE DIRECTIVE ALLYSON GRAF [facility] Mar 09, 2007 ADVANCE DIRECTIVE SOLEDAD WOLFF [facility] Encounter Notes: All associated encounter [...] CONTAINER WITH A SCREW-ON LID CONTACT GARBAGE [facility] FOR PROPER DISPOSAL OMEPRAZOLE 20MG EC CAP [...] visit. He declined all vaccines today. 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 The wound is improved, but not completely closed. He is being treated with skin graft treatments through his [place] briar shop supervisor he says he has had 4 or [...] bike. He has been working with the [place] diabetes personal care aide. He has been using a Brickflowyle rbeecca meter for the past 6 weeks, which [...] metatarsal fracture 2. Diabetes mellitus (SNOMED CT 61010979) 3. Hyperlipidemia (SNOMED CT 46591185) 4. Depressive Disorder NOS * 5. Tobacco user (SNOMED CT 059347304) 6. Personal History of Alcoholism 7. Other Iatrogenic Hypotension 8. Hyperuricemia 9. Osteopenia 10. History of amputation of lesser toe 11. Diabetic neuropathy 12. Exposure to potentially hazardous substance ([facility] [id number]) [facility]VISN[facility] CHANG Documentation Initiative Allergies: VANCOMYCIN (Apr 27, [...] Edema ()None ()1+ ()2+ ()3+ ()4+ Pulses ()PATROL POLICE SERGEANT ()1+ ()2+ ()3+ ()4+ Gait: Walks with [...] 1. Diabetic foot wound. Managed by outside briar shop supervisor. It had closed up after 1.5 years, however shortly after that it reopened, and he is again working with podiatry for wound management he is also working with [employer] in [place] for custom diabetic shoes. 2. Diabetes, suboptimal control. Recently has a Octamere CGM, has moved his glargine insulin to the morning. He is tolerating his current dose of semaglutide, and if anything has actually gained a little bit of weight. He denies having GI side effects, and is interested in increasing to 2 mg/week. Will continue to follow-up with diabetes personal care aide. 3. Fatigue. He thinks this is mostly [...] were also reviewed/updated for accuracy. Allergies/ADR from [facility]D may not display in CPRS. Use JLV MRT5 - Allergies/ADRs FACILITY ALLERGY/ADR -------- No Remote Allergy/ADR Data available for this patient [facility] VANCOMYCIN Active and Recently Outpatient Medications (including [...] MD Physician Signed: 05/18/2024 13:47 CHARLEE FISH [facility]
--- OUTSIDE RECORDS SUMMARY | 2024-06-04 09:22 | XMS_ITS | Clinical Summary ---
Author Organization [facility] Address [place], [place] [address] Care Team Providers Care Petroleum Products Sales Representative Name Role Phone Post, Dave Velazquez MD Primary Care Provider [phone] Moshe Enciso MD Unavailable [phone] Arie Justin MD Unavailable [phone] [facility], Met Unavailable [phone] Murali Hoover DPM Unavailable [phone] Allergies No known active allergies Medications [...] diabetes, hypertension and/or CHF. Please look for [facility] Care Goal Contract in Chart Review/ Letters and support this effort. Please direct questions to Care Guide Pamella Brennan Phone number [phone]. Alcohol abuse 06/02/2010 03/26/2019 Overview (06/02/2010): Sober [...] 36.7 ??C (98 ??F) 06/29/2022 8:43 AM SINGING MESSENGER Respiratory Rate 18 06/29/2022 8:43 AM SINGING MESSENGER Oxygen Saturation 96% 07/21/2023 1:34 PM SINGING MESSENGER Inhaled Oxygen Concentration - - Weight 107 kg (236 lb) 11/03/2023 11:13 AM CDT w ith shoes Height 180.3 cm (5' 10.98) 07/21/2023 1:[address] Body Mass Index 32.93 07/21/2023 1:34 PM SINGING MESSENGER Plan of Treatment Health Maintenance Due Date [...] 07/16/2020, 04/21/2020 Medical Devices Implanted Type Area Programming Specialist Device Identifier Shelf Expiration Date Model / Serial / Lot [id number] - [id number] Implanted:Qty: 1 on 09/20/2021 at [facility] Right: Foot [employer] AR-8725-4 4H / / Description:COMPRESSION FT S CREWS CANNULATED, 2.5 MICRO 44MM LOAD 4 [id number] Kristina-1530p - [id number] Implanted:Qty: 1 on 09/20/2021 at [facility] Right: Foot [employer] 03/30/2025 AR-1530P- CP / / [id number] Description:FOREFOOT INTERNA L BRACE IMPLANT SYSTEM, PEEK Screw 4.97q61jo Bio Compositetenodesis Disp Platform Software Engineer Pk - [id number] Implanted:Qty: 1 on 09/20/2021 at [facility] Right: Foot [employer] 08/30/2022 AR-1547CD S / / [id number] Ancr Sut 1.3mm Dx Fibertak Suturetape 2 Ndl 26.2mm 08/01 [facility] - [id number] Implanted:Qty: 1 on 09/20/2021 at [facility] Right: Foot [employer] 06/29/2026 AR-8990ST / / [id number] Explanted Type Area Programming Specialist Device Identifier Shelf Expiration Date Model / Serial / Lot Wire Kirs .[id number] Smooth6/Pk Depuy/Héctor - [id number] Explanted:Qty: 1 on 09/20/2021 at [facility] Right: Foot [employer] / / Description:LOAD 4 8 [id number] [facility]8737-40 - [id number] Explanted:Qty: 1 on 09/20/2021 at [facility] Right: Foot [employer] CT-8737-40 / / Description:2.5 MICRO COMPRE SSION FT DRILLS AND DISPOSABLES, GUIDEWIRE W TROCAR TIP, THREADED, 0.34 IN (.86MM) LOAD 4 7 [id number] Procedures Procedure Name Priority Date/Time Associated Diagnosis [...] Documents on File Type Date Recorded Patient Campaign Consultant Expl anation Healthcare Directive 05/21/2021 3:50 PM [...] Code Status Discussion: Reviewed Preferences Care Teams Petroleum Products Sales Representative Relationship Specialty Start Date End Date Post, Dave Velazquez MD PCP - General 06/02/10 Moshe Enciso MD [address] [place] [address] Endocrinology Endocrinology 01/04/18 [place] [address] [place], [place] [id number] Surgery - Ophthalmology 03/22/18 [facility] [address] [place] [address] 06/08/21 Murali Hoover DPM [address] [place] [address] Surgery - Podiatric 01/03/23
--- OUTSIDE RECORDS SUMMARY | 2024-06-04 09:22 | XMS_ITS | Referral Summary ---
Author Organization [facility] Address [address] [place] [address] Care Team Providers Care Documentation Lead Name Role Phone Post, Dave Wakefield MD Primary Care Provider [phone] Medications sulfamethoxazole -trimethoprim (BACTRIM DS/SEPTRA DS) 800-160 [...] on file Legal Sex Male 3:10 AM BULLDOZER MECHANIC Gender Identity Not on file Sexual Orientation Not on file Last Filed Vital Signs Vital Sign Reading Time Taken Comments Blood Pressure 148/85 06/26/2018 5:58 PM BULLDOZER MECHANIC Pulse 90 06/26/2018 5:58 PM BULLDOZER MECHANIC Temperature 36.6 ??C (97.8 ??F) 06/26/2018 5:58 PM CS T Respiratory Rate 18 06/26/2018 5:58 PM BULLDOZER MECHANIC Oxygen Saturation 95% 06/26/2018 7:00 PM BULLDOZER MECHANIC Inhaled Oxygen Concentration - - Weight 112 kg (247 lb) 06/26/2018 5:58 PM BULLDOZER MECHANIC Height 180.3 cm (5' 11) 06/26/2018 5:58 PM BULLDOZER MECHANIC Body Mass Index 34.45 06/26/2018 5:58 PM BULLDOZER MECHANIC Plan of Treatment Not on file Insurance MEDICARE [facility] [place] MEDICARE SUPPLEMENT Care Teams Documentation Lead Relationship Specialty Start Date End Date Post, Dave Wakefield MD PCP - General Internal Medicine 06/26/18
== END 2024-06-04 09:20 | disposition home or self-care (01) ==
LOC: WOUND 09:19
PROVIDERS: Visit Provider Nurse Practitioner Family
DX: E11.621 Type 2 diabetes mellitus with foot ulcer (principal); L97.512 Non-pressure chronic ulcer of other part of right foot with fat layer exposed; I89.0 Lymphedema, not elsewhere classified
CPT/HCPCS: 15275; Q4201

== ENCOUNTER 2024-06-11 14:47 | Outpatient (CLI) | payer MEDICARE, BC, SELFPAY ==
--- OUTSIDE RECORDS SUMMARY | 2024-06-11 14:49 | XMS_ITS | Continuity of Care Document ---
Author Name [facility] Organization [facility] Care Team Providers Care Insulation Hoseman Name Role Phone [facility] Unavailable Unavailable Problems Combined list of problems from Department of Defense and Veterans Affairs facilities. It does not include entries that were removed or entered in error. Problem Status Onset Date Problem Type Date of Resolution Comments Source Exposure to potentially hazardous substance ([facility] [id number]) Active 10/05/19 24 Condition Oct 05, 2023 Entered By: VIJI VIVAS Comment: [facility] CH[facility] Documentation Initiative [facility] Depressive Disorder NOS * (ICD-9-CM 311./300.4) Active Condition [facility] Diabetes mellitus (SNOMED CT 68301621) Active Condition [facility] Diabetic neuropathy Active Condition [facility] Foot Pain (ICD-9-CM 719.47) Active Condition Aug 26 10 Entered By: MALINA WORLEY Comment: left 5th metatarsal fracture [facility] History of amputation of lesser toe Active Condition [facility] Hyperlipidemia (SNOMED CT 83794190) Active Condition [facility] Hyperuricemia Active Condition [facility] Osteopenia Active Condition [place] [facility] Other Iatrogenic Hypotension Active Condition [place] [facility] Personal History of Alcoholism (ICD-9-CM V11.3) Active Condition [facility] Tobacco user (SNOMED CT 799791691) Active Condition [facility] Diagnosis: ICD-10-CM E11.42 Type 2 diabetes mellitus with diabetic polyneuropathy Active Diagnosis [facility] Diagnosis: ICD-10-CM E11.621 Type 2 diabetes mellitus with foot ulcer Active Diagnosis [facility] Diagnosis: ICD-10-CM Z77.29 Contact with [...] DAY ORAL ACTIVE FISHCHARLEE Bowers A 2022 [employer] [facility] ASPIRIN 81MG TAB,EC TAKE ONE TABLET BY MOUTH EVERY DAY ORAL ACTIVE ANSMYRAAZB ER A 2006 [facility] ATORVASTATI N CA 40MG TAB TAKE ONE TABLET BY MOUTH EVERY DAY FOR CHOLESTE ROL ORAL ACTIVE 04/18/2025 [id number] 4 NAIDL,TOD D 2023 90 [facility] ATORVASTATI N [place] 40MG TAB TAKE ONE TABLET BY MOUTH EVERY DAY FOR CHOLESTE ROL ORAL DISCONT INUED 04/11/2024 [id number] 4 ABECHARLEE A 2022 90 [facility] ATORVASTATI N CA 40MG TAB TAKE ONE TABLET BY MOUTH EVERY DAY FOR CHOLESTE ROL ORAL DISCONT INUED 07/15/2023 [id number] 3 NAIDL,TOD D 2022 90 [facility] CHOLECALCIF QUINTIN TAB TAKE 5000 UNITS BY MOUTH EVERY DAY ORAL ACTIVE FISHCHARLEE Bowers A 2022 [facility] COENZYME Q10 CAP/TAB TAKE 1 CAPSULE BY MOUTH EVERY DAY ORAL ACTIVE FISHCHARLEE A 2022 [facility] CYANOCOBALA MIN 1000MCG TAB TAKE ONE TABLET BY MOUTH EVERY DAY ORAL ACTIVE NAIDL,TOD D 2021 [facility] DICLOFENAC NA 1% GEL,TOP APPLY 4 GRAMS TOPICALL Y FOUR TIMES A DAY NEEDED FOR JOINT PAIN TOPICA L HOLD 05/18/2025 [id number] FISHCHARLEE Bowers A 2023 100 [facility] DICLOFENAC NA 1% GEL,TOP APPLY 4 GRAMS TOPICALL Y FOUR TIMES A DAY NEEDED FOR JOINT PAIN TOPICA L 03/22/2024 [id number] 3 FISHCHARLEE A 2022 100 [facility] FINASTERIDE 5MG TAB TAKE ONE TABLET BY MOUTH EVERY DAY FOR PROSTATE ORAL ACTIVE 04/18/2025 [id number] 4 CHARLEE FISH A 2023 90 [facility] FINASTERIDE 5MG TAB TAKE ONE TABLET BY MOUTH EVERY DAY FOR PROSTATE ORAL DISCONT INUED 04/11/2024 [id number] 4 CHARLEE FISH A 2022 90 [facility] FINASTERIDE 5MG TAB TAKE ONE TABLET BY MOUTH EVERY DAY FOR PROSTATE ORAL DISCONT INUED 07/13/2023 [id number] CHARLEE FISH A 2021 90 [facility] FISH OIL 1000MG (500MG DHA/EPA) CAP,ORAL TAKE 1 CAPSULE BY MOUTH TWICE A DAY ORAL ACTIVE KENRICKMARYEdward Bowers 2006 [facility] INSULIN,GLA RGINE-YFGN 100UNIT/ML INJ PEN,3ML INJECT 24 UNITS UNDER THE SKIN EVERY MORNING FOR DIABETES SUBCUT ANEOUS ACTIVE 04/27/2025 [id number] 4 NAIDL,TOD D 2023 5 [facility] INSULIN,GLA RGINE-YFGN 100UNIT/ML INJ PEN,3ML INJECT 24 UNITS UNDER THE SKIN EVERY EVENING FOR DIABETES SUBCUT ANEOUS DISCONT INUED (EDIT) 04/17/2025 [id number] 4 NAIDL,TOD D 2023 5 [facility] INSULIN,GLA RGINE-YFGN 100UNIT/ML INJ PEN,3ML INJECT 24 UNITS UNDER THE SKIN EVERY EVENING FOR DIABETES SUBCUT ANEOUS DISCONT INUED 08/29/2024 [id number] 4 NAIDL,TOD D 2023 5 [facility] INSULIN,GLA RGINE-YFGN 100UNIT/ML INJ PEN,3ML INJECT 22 UNITS UNDER THE SKIN AT BEDTIME FOR DIABETES SUBCUT ANEOUS DISCONT INUED (EDIT) 01/07/2024 [id number] 3 NAIDL,TOD D 2022 5 [facility] LIDOCAINE 4% CREAM,TOP APPLY MODERATE AMOUNT TOPICALL Y THREE TIMES A DAY FOR PAIN TOPICA L 03/22/2024 [id number] CHARLEE FISH 2022 30 [facility] MAGNESIUM OXIDE 400MG TAB TAKE ONE TABLET BY MOUTH EVERY DAY ORAL ACTIVE CHARLEE FISH 2022 [facility] MENTHOL/MET HYL SALICYLATE (10-15%) LOW CONC. CREAM,TOP APPLY THIN LAYER TOPICALL Y THREE TIMES A DAY FOR MUSCLE PAIN TOPICA L 03/22/2024 [id number] 3 CHARLEE FISH 2022 90 [facility] METFORMIN HCL 1000MG TAB TAKE ONE TABLET BY MOUTH TWICE A DAY FOR DIABETES ORAL ACTIVE 07/16/2024 [id number] 4 NALIANNATOD D 2023 180 [facility] METFORMIN HCL 1000MG TAB TAKE ONE TABLET BY MOUTH TWICE A DAY FOR DIABETES ORAL DISCONT INUED 04/11/2024 [id number] 4 CHARLEE FISH Robinson 2022 180 [facility] METFORMIN HCL 1000MG TAB TAKE ONE TABLET BY MOUTH TWICE A DAY FOR DIABETES ORAL DISCONT INUED 07/15/2023 [id number] DARYLTOD D 2022 180 [facility] OMEPRAZOLE 20MG CAP,EC TAKE ONE CAPSULE BY MOUTH EVERY DAY ON AN EMPTY STOMACH, AT LEAST 30 MINUTES PRIOR TO A MEAL FOR GERD ORAL ACTIVE 05/18/2025 [id number] 4 CHARLEE FISH Robinson 2023 90 [facility] OMEPRAZOLE 20MG CAP,EC TAKE ONE CAPSULE BY MOUTH EVERY DAY ON AN EMPTY STOMACH, AT LEAST 30 MINUTES PRIOR TO A MEAL FOR GERD ORAL DISCONT INUED 03/22/2024 [id number] 4 FISHCHARLEE Bowers 2022 90 [facility] SEMAGLUTIDE 1MG/0.75ML INJ,SOLN,PE N,3ML INJECT 1MG UNDER THE SKIN EVERY WEEK FOR DIABETES SUBCUT ANEOUS DISCONT INUED 11/07/2024 [id number] NAIDL,TOD D 2023 1 [facility] SEMAGLUTIDE 1MG/0.75ML INJ,SOLN,PE N,3ML INJECT 1MG UNDER THE SKIN EVERY WEEK FOR DIABETES SUBCUT ANEOUS DISCONT INUED 11/08/2023 [id number] NAIDL,TOD D 2022 1 [facility] SEMAGLUTIDE 2MG/0.75ML INJ,SOLN,PE N,3ML INJECT 2MG UNDER THE SKIN ONCE WEEKLY FOR DIABETES SUBCUT ANEOUS ACTIVE 05/18/2025 [id number] 4 CHARLEE FISH A 2023 1 [facility] TAMSULOSIN HCL 0.4MG CAP TAKE ONE CAPSULE BY MOUTH EVERY EVENING ORAL ACTIVE 04/18/2025 [id number] 4 CHARLEE FISH A 2023 30 [facility] TAMSULOSIN HCL 0.4MG CAP TAKE ONE CAPSULE BY MOUTH EVERY EVENING ORAL DISCONT INUED 04/13/2024 [id number] CHARLEE FISH A 2022 30 [facility] TAMSULOSIN HCL 0.4MG CAP TAKE ONE CAPSULE BY MOUTH EVERY EVENING ORAL DISCONT INUED 04/11/2024 [id number] 3 CHARLEE FISH A 2022 90 [facility] TURMERIC CAP/TAB TAKE 500 MG BY MOUTH TWICE A DAY ORAL ACTIVE MATTY POWERS 2018 [facility] Allergies, Adverse Reactions, Alerts Combined list of allergies from Department of Defense and Veterans Affairs facilities. It does not include entries that were removed or entered in error. Substance Category Reaction Severity Reaction type Status Date Reported Comments Source VANCOMYCIN Propensity to adverse reactions to drug (finding) [place] active 8 [facility] Immunizations Combined list of available immunizations from the Department of Defense and Veterans Affairs facilities. Immunization Series Date Given Administered By Site Reaction Lot Number CVX Code Drug Science Liaison Status Comments Source COVID-19 (PFIZER), MRNA, LNP-S, PF, JOSE-SUCROSE, 30 MCG/0.3 ML (AGES 12+ YEARS) 1 2023 TREVON GRIJALVA LEFT DELTO ID [id number] complet ed [facility] INFLUENZA, HIGH-DOSE, TRIVALENT, PF 2023 TREVON GRIJALVA LEFT DELTO ID [id number] A 135 complet ed [facility] ZOSTER RECOMBINANT 2 2019 187 complet ed [facility] INFLUENZA, INJECTABLE, QUADRIVALENT, PRESERVATIVE FREE 2019 150 complet ed [facility] ZOSTER RECOMBINANT 1 2019 187 complet ed [facility] INFLUENZA, HIGH-DOSE, QUADRIVALENT [address] [facility] INFLUENZA, SEASONAL, INJECTABLE, PRESERVATIVE FREE 2017 140 complet ed [facility] INFLUENZA, INJECTABLE, QUADRIVALENT, PRESERVATIVE FREE 2017 150 complet ed [facility] INFLUENZA, INJECTABLE, QUADRIVALENT, PRESERVATIVE FREE 2015 150 complet ed [facility] TDAP 2015 115 complet ed [facility] TA PNEUMOCOCCAL CONJUGATE PCV [address] [facility] TD (ADULT), 5 LF TETANUS TOXOID, PRESERVATIVE FREE, ADSORBED 2015 113 complet ed [facility] INFLUENZA, INJECTABLE, QUADRIVALENT, PRESERVATIVE FREE 2013 150 complet ed [facility] PNEUMOCOCCAL POLYSACCHARID E PPV23 [address] [facility] INFLUENZA, UNSPECIFIED FORMULATION [address] [facility] PNEUMOCOCCAL, UNSPECIFIED FORMULATION 2006 109 complet ed [facility] TD(ADULT) UNSPECIFIED FORMULATION [address] [facility] TETANUS TOXOID, UNSPECIFIED FORMULATION [address] [facility] Results Combined list of [...] Apr 16, 2024 11:04 AM Reporting Lab: [facility] [address] Performing Lab: [facility] [address] [place] [facility] BASIC METABOLIC PANEL+MG CREATININE [MASS/VOLUM E] IN SERUM OR PLASMA 1.2 mg/dL 0.7 - 1.2 05/17 Specimen Type: PLASMA No comment entered. Ordering Provider: ME LEEROY FISH Report Released Date/Time: Apr 16, 2024 11:04 AM Reporting Lab: [facility] [address] Performing Lab: [facility] [address] [place] [facility] BASIC METABOLIC PANEL+MG UREA NITROGEN [MASS/VOLUM E] IN SERUM OR PLASMA 22 mg/dL 8 - 26 05/17 Specimen Type: PLASMA No comment entered. Ordering Provider: ME LEEROY FISH Report Released Date/Time: Apr 16, 2024 11:04 AM Reporting Lab: [facility] [address] Performing Lab: [facility] [address] [place] [facility] BASIC METABOLIC PANEL+MG GLUCOSE [MASS/VOLUM E] IN SERUM OR PLASMA 187 mg/dL 70 - 100 05/17 H Specimen Type: PLASMA No comment entered. Ordering Provider: ME LEEROY FISH Report Released Date/Time: Apr 16, 2024 11:04 AM Reporting Lab: [facility] [address] Performing Lab: [facility] [address] [place] [facility] BASIC METABOLIC PANEL+MG SODIUM [MOLES/VOLU ME] IN SERUM OR PLASMA 138 mmol/L 136 - 145 05/17 Specimen Type: PLASMA No comment entered. Ordering Provider: ME LEEROY FISH Report Released Date/Time: Apr 16, 2024 11:04 AM Reporting Lab: [facility] [address] Performing Lab: [facility] [address] [place] [facility] BASIC METABOLIC PANEL+MG POTASSIUM [MOLES/VOLU ME] IN SERUM OR PLASMA 4.5 mmol/L 3.5 - 5.1 05/17 Specimen Type: PLASMA No comment entered. Ordering Provider: ME LEEROY FISH Report Released Date/Time: Apr 16, 2024 11:04 AM Reporting Lab: [facility] [address] Performing Lab: [facility] [address] [place] [facility] BASIC METABOLIC PANEL+MG CHLORIDE [MOLES/VOLU ME] IN SERUM OR PLASMA 102 mmol/L 98 - 107 05/17 Specimen Type: PLASMA No comment entered. Ordering Provider: ME LEEROY FISH Report Released Date/Time: Apr 16, 2024 11:04 AM Reporting Lab: [facility] [address] Performing Lab: [facility] [address] [place] [facility] BASIC METABOLIC PANEL+MG CARBON DIOXIDE, TOTAL [MOLES/VOLU ME] IN SERUM OR PLASMA 25 mmol/L 22 - 29 05/17 Specimen Type: PLASMA No comment entered. Ordering Provider: ME LEEROY FISH Report Released Date/Time: Apr 16, 2024 11:04 AM Reporting Lab: [facility] [address] Performing Lab: [facility] [address] [place] [facility] BASIC METABOLIC PANEL+MG CALCIUM [MASS/VOLUM E] IN SERUM OR PLASMA 9.7 mg/dL 8.4 - 10.2 05/17 Specimen Type: PLASMA No comment entered. Ordering Provider: ME LEEROY FISH Report Released Date/Time: Apr 16, 2024 11:04 AM Reporting Lab: [facility] [address] Performing Lab: [facility] [address] [place] [facility] BASIC METABOLIC PANEL+MG MAGNESIUM [MASS/VOLUM E] IN SERUM OR PLASMA 1.7 mg/dL 1.6 - 2.6 05/17 Specimen Type: PLASMA No comment entered. Ordering Provider: ME LEEROY FISH Report Released Date/Time: Apr 16, 2024 11:04 AM Reporting Lab: [facility] [address] Performing Lab: [facility] [address] [place] [facility] BASIC METABOLIC PANEL+MG ANION GAP IN SERUM OR PLASMA 11 mmol/L 5 - 15 05/17 Specimen Type: PLASMA No comment entered. Ordering Provider: ME LEEROY FISH Report Released Date/Time: Apr 16, 2024 11:04 AM Reporting Lab: [facility] [address] Performing Lab: [facility] [address] [place] [facility] BASIC METABOLIC PANEL+MG GLOMERULAR FILTRATION RATE/1.73 SQ M.PREDICTED [VOLUME RATE/AREA] IN SERUM, PLASMA OR BLOOD BY CREATININE- BASED FORMULA (CKD-EPI 2020) 62 60 05/17 Specimen Type: PLASMA No comment entered. Ordering Provider: ME LEEROY FISH Report Released Date/Time: Apr 16, 2024 11:04 AM Reporting Lab: [facility] [address] Performing Lab: [facility] [address] [facility] CBC & DIFF LEUKOCYTES [#/VOLUME] IN BLOOD BY AUTOMATED COUNT 8.8 4.0 - 11.0 05/17 Specimen Type: BLOOD Comment: Automated Differentia l Performed Ordering Provider: ME LEEROY FISH Report Released Date/Time: Apr 16, 2024 11:04 AM Reporting Lab: [facility] [address] Performing Lab: [facility] [address] [facility] CBC & DIFF ERYTHROCYTE S [#/VOLUME] IN BLOOD BY AUTOMATED COUNT 4.74 4.60 - 6.20 05/17 Specimen Type: BLOOD Comment: Automated Differentia l Performed Ordering Provider: ME LEEROY FISH Report Released Date/Time: Apr 16, 2024 11:04 AM Reporting Lab: [facility] [address] Performing Lab: [facility] [address] [place] [facility] CBC & DIFF HEMOGLOBIN [MASS/VOLUM E] IN BLOOD 13.1 g/dL 13.5 - 17.9 05/17 L Specimen Type: BLOOD Comment: Automated Differentia l Performed Ordering Provider: ME LEEROY FISH Report Released Date/Time: Apr 16, 2024 11:04 AM Reporting Lab: [facility] [address] Performing Lab: [facility] [address] [place] [facility] CBC & DIFF HEMATOCRIT [VOLUME FRACTION] OF BLOOD BY AUTOMATED COUNT 40.7 41.0 - 54.0 05/17 L Specimen Type: BLOOD Comment: Automated Differentia l Performed Ordering Provider: ME LEEROY FISH Report Released Date/Time: Apr 16, 2024 11:04 AM Reporting Lab: [facility] [address] Performing Lab: [facility] [address] [place] [facility] CBC & DIFF MCV [ENTITIC VOLUME] BY AUTOMATED COUNT 85.9 fL 80.0 - 100.0 05/17 Specimen Type: BLOOD Comment: Automated Differentia l Performed Ordering Provider: ME LEEROY FISH Report Released Date/Time: Apr 16, 2024 11:04 AM Reporting Lab: [facility] [address] Performing Lab: [facility] [address] [place] [facility] CBC & DIFF MCH [ENTITIC MASS] BY AUTOMATED COUNT 27.6 pg 27.0 - 33.0 05/17 Specimen Type: BLOOD Comment: Automated Differentia l Performed Ordering Provider: ME LEEROY FISH Report Released Date/Time: Apr 16, 2024 11:04 AM Reporting Lab: [facility] [address] Performing Lab: [facility] [address] [place] [facility] CBC & DIFF MCHC [MASS/VOLUM E] BY AUTOMATED COUNT 32.2 g/dL 32.0 - 37.5 05/17 Specimen Type: BLOOD Comment: Automated Differentia l Performed Ordering Provider: ME LEEROY FISH Report Released Date/Time: Apr 16, 2024 11:04 AM Reporting Lab: [facility] [address] Performing Lab: [facility] [address] [place] [facility] CBC & DIFF PLATELETS [#/VOLUME] IN BLOOD BY AUTOMATED COUNT 185 150 - 400 05/17 Specimen Type: BLOOD Comment: Automated Differentia l Performed Ordering Provider: ME LEEROY FISH Report Released Date/Time: Apr 16, 2024 11:04 AM Reporting Lab: [facility] [address] Performing Lab: [facility] [address] [place] [facility] CBC & DIFF PLATELET MEAN VOLUME [ENTITIC VOLUME] IN BLOOD BY AUTOMATED COUNT 9.6 fL 9.1 - 13.0 05/17 Specimen Type: BLOOD Comment: Automated Differentia l Performed Ordering Provider: ME LEEROY FISH Report Released Date/Time: Apr 16, 2024 11:04 AM Reporting Lab: [facility] [address] Performing Lab: [facility] [address] [place] [facility] CBC & DIFF NEUTROPHILS /100 LEUKOCYTES IN BLOOD BY MANUAL COUNT 68.6 40.0 - 80.0 05/17 Specimen Type: BLOOD Comment: Automated Differentia l Performed Ordering Provider: ME LEEROY FISH Report Released Date/Time: Apr 16, 2024 11:04 AM Reporting Lab: [facility] [address] Performing Lab: [facility] [address] [place] [facility] CBC & DIFF LYMPHOCYTES /100 LEUKOCYTES IN BLOOD BY MANUAL COUNT 21.8 15.0 - 45.0 05/17 Specimen Type: BLOOD Comment: Automated Differentia l Performed Ordering Provider: ME LEEROY FISH Report Released Date/Time: Apr 16, 2024 11:04 AM Reporting Lab: [facility] [address] Performing Lab: [facility] [address] [place] [facility] CBC & DIFF MONOCYTES/1 00 LEUKOCYTES IN BLOOD BY AUTOMATED COUNT 5.9 2.0 - 12.0 05/17 Specimen Type: BLOOD Comment: Automated Differentia l Performed Ordering Provider: ME LEEROY FISH Report Released Date/Time: Apr 16, 2024 11:04 AM Reporting Lab: [facility] [address] Performing Lab: [facility] [address] [place] [facility] CBC & DIFF EOSINOPHILS /100 LEUKOCYTES IN BLOOD BY AUTOMATED COUNT 2.9 0.0 - 6.0 05/17 Specimen Type: BLOOD Comment: Automated Differentia l Performed Ordering Provider: ME LEEROY FISH Report Released Date/Time: Apr 16, 2024 11:04 AM Reporting Lab: [facility] [address] Performing Lab: [facility] [address] [place] [facility] CBC & DIFF BASOPHILS/1 00 LEUKOCYTES IN BLOOD BY MANUAL COUNT 0.5 0.0 - 2.0 05/17 Specimen Type: BLOOD Comment: Automated Differentia l Performed Ordering Provider: ME LEEROY FISH Report Released Date/Time: Apr 16, 2024 11:04 AM Reporting Lab: [facility] [address] Performing Lab: [facility] [address] [place] [facility] CBC & DIFF ERYTHROCYTE DISTRIBUTIO N WIDTH [RATIO] BY AUTOMATED COUNT 15.0 11.5 - 14.5 05/17 H Specimen Type: BLOOD Comment: Automated Differentia l Performed Ordering Provider: ME LEEROY FISH Report Released Date/Time: Apr 16, 2024 11:04 AM Reporting Lab: [facility] [address] Performing Lab: [facility] [address] [place] [facility] CBC & DIFF LYMPHOCYTES [#/VOLUME] IN BLOOD BY AUTOMATED COUNT 1.9 1.0 - 4.0 05/17 Specimen Type: BLOOD Comment: Automated Differentia l Performed Ordering Provider: ME LEEROY FISH Report Released Date/Time: Apr 16, 2024 11:04 AM Reporting Lab: [facility] [address] Performing Lab: [facility] [address] [place] [facility] CBC & DIFF MONOCYTES [#/VOLUME] IN BLOOD BY AUTOMATED COUNT 0.5 0.1 - 1.0 05/17 Specimen Type: BLOOD Comment: Automated Differentia l Performed Ordering Provider: ME LEEROY FISH Report Released Date/Time: Apr 16, 2024 11:04 AM Reporting Lab: [facility] [address] Performing Lab: [facility] [address] [place] [facility] CBC & DIFF NEUTROPHILS [#/VOLUME] IN BLOOD BY AUTOMATED COUNT 6.0 2.0 - 7.7 05/17 Specimen Type: BLOOD Comment: Automated Differentia l Performed Ordering Provider: ME LEEROY FISH Report Released Date/Time: Apr 16, 2024 11:04 AM Reporting Lab: [facility] [address] Performing Lab: [facility] [address] [place] [facility] CBC & DIFF EOSINOPHILS [#/VOLUME] IN BLOOD BY AUTOMATED COUNT 0.3 0.0 - 0.5 05/17 Specimen Type: BLOOD Comment: Automated Differentia l Performed Ordering Provider: ME LEEROY FISH Report Released Date/Time: Apr 16, 2024 11:04 AM Reporting Lab: [facility] [address] Performing Lab: [facility] [address] [place] [facility] CBC & DIFF BASOPHILS [#/VOLUME] IN BLOOD BY AUTOMATED COUNT 0.0 0.0 - 0.2 05/17 Specimen Type: BLOOD Comment: Automated Differentia l Performed Ordering Provider: ME LEEROY FISH Report Released Date/Time: Apr 16, 2024 11:04 AM Reporting Lab: [facility] [address] Performing Lab: [facility] [address] [place] [facility] CBC & DIFF IG(META,MYE LO,PRO) 0.3 05/17 Specimen Type: BLOOD Comment: Automated Differentia l Performed Ordering Provider: ME LEEROY FISH Report Released Date/Time: Apr 16, 2024 11:04 AM Reporting Lab: [facility] [address] Performing Lab: [facility] [address] [place] [facility] CBC & DIFF IMMATURE GRANULOCYTE S [PRESENCE] IN BLOOD BY AUTOMATED COUNT 0.0 0.0 - 0.1 05/17 Specimen Type: BLOOD Comment: Automated Differentia l Performed Ordering Provider: ME LEEROY FISH Report Released Date/Time: Apr 16, 2024 11:04 AM Reporting Lab: [facility] [address] Performing Lab: [facility] [address] [facility] HEMOGLOBI N [...] 03:48 PM Reporting Lab: [facility] [address] Performing Lab: [facility] [address] [place] [facility] BASIC METABOLIC PANEL+MG CREATININE [MASS/VOLUM E] IN SERUM OR PLASMA 1.2 mg/dL 0.7 - 1.2 03/22 Specimen Type: PLASMA No comment entered. Ordering Provider: ME LEEROY FISH Report Released Date/Time: Aug 21, 2022 03:48 PM Reporting Lab: [facility] [address] Performing Lab: [facility] [address] [facility] BASIC METABOLIC PANEL+MG UREA NITROGEN [MASS/VOLUM E] IN SERUM OR PLASMA 15 mg/dL 8 - 03/22 Specimen Type: PLASMA No comment entered. Ordering Provider: ME LEEROY FISH Report Released Date/Time: Aug 21, 2022 03:48 PM Reporting Lab: [facility] [address] Performing Lab: [facility] [address] [place] [facility] BASIC METABOLIC PANEL+MG GLUCOSE [MASS/VOLUM E] IN SERUM OR PLASMA 145 mg/dL 70 - 100 03/22 H Specimen Type: PLASMA No comment entered. Ordering Provider: ME LEEROY FISH Report Released Date/Time: Aug 21, 2022 03:48 PM Reporting Lab: [facility] [address] Performing Lab: [facility] [address] [place] [facility] BASIC METABOLIC PANEL+MG SODIUM [MOLES/VOLU ME] IN SERUM OR PLASMA 138 mmol/L 136 - 145 03/22 Specimen Type: PLASMA No comment entered. Ordering Provider: ME LEEROY FISH Report Released Date/Time: Aug 21, 2022 03:48 PM Reporting Lab: [facility] [phone] Performing Lab: [facility] [phone] [place] [facility] BASIC METABOLIC PANEL+MG POTASSIUM [MOLES/VOLU ME] IN SERUM OR PLASMA 4.5 mmol/L 3.5 - 5.1 03/22 Specimen Type: PLASMA No comment entered. Ordering Provider: ME LEEROY FISH Report Released Date/Time: Aug 21, 2022 03:48 PM Reporting Lab: [facility] [id number] Performing Lab: [facility] [phone] [place] [facility] BASIC METABOLIC PANEL+MG CHLORIDE [MOLES/VOLU ME] IN SERUM OR PLASMA 101 mmol/L 98 - 107 03/22 Specimen Type: PLASMA No comment entered. Ordering Provider: ME LEEROY FISH Report Released Date/Time: Aug 21, 2022 03:48 PM Reporting Lab: [facility] [phone] Performing Lab: [facility] [phone] [place] [facility] BASIC METABOLIC PANEL+MG CARBON DIOXIDE, TOTAL [MOLES/VOLU ME] IN SERUM OR PLASMA 27 mmol/L 22 - 29 03/22 Specimen Type: PLASMA No comment entered. Ordering Provider: ME LEEROY FISH Report Released Date/Time: Aug 21, 2022 03:48 PM Reporting Lab: [facility] [phone] Performing Lab: [facility] [phone] [place] [facility] BASIC METABOLIC PANEL+MG CALCIUM [MASS/VOLUM E] IN SERUM OR PLASMA 10.0 mg/dL 8.4 - 10.2 03/22 Specimen Type: PLASMA No comment entered. Ordering Provider: ME LEEROY FISH Report Released Date/Time: Aug 21, 2022 03:48 PM Reporting Lab: [facility] [address] Performing Lab: [facility] [address] [place] [facility] BASIC METABOLIC PANEL+MG MAGNESIUM [MASS/VOLUM E] IN SERUM OR PLASMA 1.9 mg/dL 1.6 - 2.6 03/22 Specimen Type: PLASMA No comment entered. Ordering Provider: ME LEEROY FISH Report Released Date/Time: Aug 21, 2022 03:48 PM Reporting Lab: [facility] [address] Performing Lab: [facility] [address] [place] [facility] BASIC METABOLIC PANEL+MG ANION GAP IN SERUM OR PLASMA 10 mmol/L 5 - 15 03/22 Specimen Type: PLASMA No comment entered. Ordering Provider: ME LEEROY FISH Report Released Date/Time: Aug 21, 2022 03:48 PM Reporting Lab: [facility] [address] Performing Lab: [facility] [address] [place] [facility] BASIC METABOLIC PANEL+MG GLOMERULAR FILTRATION RATE/1.73 SQ M.PREDICTED [VOLUME RATE/AREA] IN SERUM, PLASMA OR BLOOD BY CREATININE- BASED FORMULA (CKD-EPI 2020) 63 60 03/22 Specimen Type: PLASMA No comment entered. Ordering Provider: ME LEEROY FISH Report Released Date/Time: Aug 21, 2022 03:48 PM Reporting Lab: [facility] [address] Performing Lab: [facility] [address] [place] [facility] HEMOGLOBI N A1C [...] 03:46 PM Reporting Lab: [facility] [address] Performing Lab: [facility] [address] [place] [facility] BASIC METABOLIC PANEL+MG CREATININE [MASS/VOLUM E] IN SERUM OR PLASMA 0.9 mg/dL 0.7 - 1.2 08/18 Specimen Type: PLASMA No comment entered. Ordering Provider: ME LEEROY FISH Report Released Date/Time: December 22, 2021 03:46 PM Reporting Lab: [facility] [address] Performing Lab: [facility] [address] [place] [facility] BASIC METABOLIC PANEL+MG UREA NITROGEN [MASS/VOLUM E] IN SERUM OR PLASMA 12 mg/dL 8 - 26 08/18 Specimen Type: PLASMA No comment entered. Ordering Provider: ME LEEROY FISH Report Released Date/Time: December 22, 2021 03:46 PM Reporting Lab: [facility] [address] Performing Lab: [facility] [address] [place] [facility] BASIC METABOLIC PANEL+MG GLUCOSE [MASS/VOLUM E] IN SERUM OR PLASMA 184 mg/dL 70 - 100 08/18 H Specimen Type: PLASMA No comment entered. Ordering Provider: ME LEEROY FISH Report Released Date/Time: December 22, 2021 03:46 PM Reporting Lab: [facility] [address] Performing Lab: [facility] [address] [place] [facility] BASIC METABOLIC PANEL+MG SODIUM [MOLES/VOLU ME] IN SERUM OR PLASMA 137 mmol/L 136 - 145 08/18 Specimen Type: PLASMA No comment entered. Ordering Provider: ME LEEROY FISH Report Released Date/Time: December 22, 2021 03:46 PM Reporting Lab: [facility] [address] Performing Lab: [facility] [address] [place] [facility] BASIC METABOLIC PANEL+MG POTASSIUM [MOLES/VOLU ME] IN SERUM OR PLASMA 3.9 mmol/L 3.5 - 5.1 08/18 Specimen Type: PLASMA No comment entered. Ordering Provider: ME LEEROY FISH Report Released Date/Time: December 22, 2021 03:46 PM Reporting Lab: [facility] [address] Performing Lab: [facility] [address] [place] [facility] BASIC METABOLIC PANEL+MG CHLORIDE [MOLES/VOLU ME] IN SERUM OR PLASMA 102 mmol/L 98 - 107 08/18 Specimen Type: PLASMA No comment entered. Ordering Provider: ME LEEROY FISH Report Released Date/Time: December 22, 2021 03:46 PM Reporting Lab: [facility] [address] Performing Lab: [facility] [address] [place] [facility] BASIC METABOLIC PANEL+MG CARBON DIOXIDE, TOTAL [MOLES/VOLU ME] IN SERUM OR PLASMA 26 mmol/L 22 - 29 08/18 Specimen Type: PLASMA No comment entered. Ordering Provider: ME LEEROY FISH Report Released Date/Time: December 22, 2021 03:46 PM Reporting Lab: [facility] [address] Performing Lab: [facility] [address] [place] [facility] BASIC METABOLIC PANEL+MG CALCIUM [MASS/VOLUM E] IN SERUM OR PLASMA 9.4 mg/dL 8.4 - 10.2 08/18 Specimen Type: PLASMA No comment entered. Ordering Provider: ME LEEROY FISH Report Released Date/Time: December 22, 2021 03:46 PM Reporting Lab: [facility] [address] Performing Lab: [facility] [address] [facility] BASIC METABOLIC PANEL+MG MAGNESIUM [MASS/VOLUM E] IN SERUM OR PLASMA 1.6 mg/dL 1.6 - 2.6 08/18 Specimen Type: PLASMA No comment entered. Ordering Provider: ME LEEROY FISH Report Released Date/Time: December 22, 2021 03:46 PM Reporting Lab: [facility] [address] Performing Lab: [facility] [address] [facility] BASIC METABOLIC PANEL+MG ANION GAP IN SERUM OR PLASMA 9 mmol/L 5 - 15 08/18 Specimen Type: PLASMA No comment entered. Ordering Provider: ME LEEROY FISH Report Released Date/Time: December 22, 2021 03:46 PM Reporting Lab: [facility] [address] Performing Lab: [facility] [address] [facility] BASIC METABOLIC PANEL+MG GLOMERULAR FILTRATION RATE/1.73 SQ M.PREDICTED [VOLUME RATE/AREA] IN SERUM, PLASMA OR BLOOD BY CREATININE- BASED FORMULA (CKD-EPI) 89 60 08/18 Specimen Type: PLASMA No comment entered. Ordering Provider: ME LEEROY FISH Report Released Date/Time: December 22, 2021 03:46 PM Reporting Lab: [facility] [address] Performing Lab: [facility] [address] [facility] Vital Signs Combined list of inpatient and outpatient Vital Signs from Department of Defense and Veterans Affairs, ranging from 12 months to all on record, depending upon the facility. Vital Sign Value Date Comments Source SYSTOLIC BLOOD PRESSURE 123 05/17/2024 14:50:52 [facility] DIASTOLIC BLOOD PRESSURE 79 05/17/2024 14:50:52 [facility] PULSE OXIMETRY 95 05/17/2024 14:50:[address] [facility] WEIGHT 240.8 05/17/2024 14:50:52 [facility] BMI 35kg/m2 05/17/2024 14:50:52 [facility] PAIN 0 05/17/2024 14:50:52 [facility] HEIGHT 70 05/17/2024 14:50:52 [facility] TEMPERATURE 97.8 05/17/2024 14:50:52 [facility] PULSE 113 05/17/2024 14:50:52 [facility] Encounters Combined list of: 1) Encounters from Department of [facility] Affairs facilities going back up to thelast 18 months. 2) Encounters from the Department of Defense facilities going back up to 280 months. Location Location Details Encounter Type Encounter Number Reason For Visit Attending Provider ADM Date DC Date Status Disposition Source [facility] Outpatient Encounter [id number] Diagnos is: ICD-10- CM Z77.29 Contact with and exposur e to other [facility]<br/ > JEANINEJESSICA Poonam 12/27 [facility] Outpatient Encounter [id number] Diagnos is: ICD-10- CM Z77.29 Contact with and exposur e to other [facility]<br/ > JEANINEJESSICA ILDE Poonam 12/27 [facility] HC PRO PHONE CALL 11-20 MIN [id number] Diagnos is: ICD-10- CM E11.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
KARI BRITO 01/06 [facility] Outpatient Encounter [id number] 03/10 [facility] HC PRO PHONE CALL 11-20 MIN [id number] Diagnos is: ICD-10- CM E11.42 Type 2 diabete s mellitu s with diabeti c polyneu ropathy
NAIDLKARI 03/14 [facility] OFFICE O/P EST LOW 20-29 MIN [id number] Diagnos is: ICD-10- CM E11.621 Type 2 diabete s mellitu s with foot ulcer<b r/> Rhiannon FISH 03/22 [place] [facility] [place] [facility] HC PRO PHONE CALL 21-30 MIN [id number] Diagnos is: ICD-10- CM E11.42 Type 2 diabete s mellitu s with diabeti c polyneu ropathy
NAIDL,KARI 04/18 [place] [facility] [place] [facility] HC PRO PHONE CALL 21-30 MIN [id number] Diagnos is: ICD-10- CM E11.42 Type 2 diabete s mellitu s with diabeti c polyneu ropathy
NAIDL,KARI 07/11 [place] [facility] [place] [facility] MTMS BY PHARM ADDL 15 MIN [id number] Diagnos is: ICD-10- CM E11.42 Type 2 diabete s mellitu s with diabeti c polyneu ropathy
NAIDL,KARI 08/29 [place] [facility] [place] [facility] MTMS BY PHARM EST 15 MIN [id number] Diagnos is: ICD-10- CM E11.42 Type 2 diabete s mellitu s with diabeti c polyneu ropathy
SOLEDAD ELLIS 10/10 [place] [facility] [place] [facility] Outpatient Encounter [id number] 10/16 [place] [facility] [place] [facility] MTMS BY PHARM EST 15 MIN [id number] Diagnos is: ICD-10- CM E11.621 Type 2 diabete s mellitu s with foot ulcer<b r/> NAIDL,KAIR 11/06 [place] [facility] [place] [facility] MTMS BY PHARM ADDL 15 MIN [id number] Diagnos is: ICD-10- CM E11.42 Type 2 diabete s mellitu s with diabeti c polyneu ropathy
NAIDL,KARI 11/22 [place] [facility] [facility] [place] [facility] MTMS BY PHARM ADDL 15 MIN [id number] Diagnos is: ICD-10- CM E11.42 Type 2 diabete s mellitu s with diabeti c polyneu ropathy
NAIDL,KARI 01/17 [place] [facility] [facility] [place] [facility] Outpatient Encounter [id number] Diagnos is: ICD-10- CM E11.42 Type 2 diabete s mellitu s with diabeti c polyneu ropathy
DAWNA MILAGRO 01/18 [place] [facility] [facility] [place] [facility] QNHP OL DIG ASSMT&MGMT 5-10 [id number] Diagnos is: ICD-10- CM E11.42 Type 2 diabete s mellitu s with diabeti c polyneu ropathy
MOE CHOWDHURY 01/18 [place] [facility] [place] [facility] MTMS BY PHARM EST 15 MIN [id number] Diagnos is: ICD-10- CM E11.42 Type 2 diabete s mellitu s with diabeti c polyneu ropathy
NAIDL,KARI 02/21 [place] [facility] [place] [facility] Outpatient Encounter [id number] RORY CAPPS 02/26 [place] [facility] [place] [facility] Outpatient Encounter [id number] 03/14 [place] [facility] [place] [facility] QNHP OL DIG ASSMT&MGMT 11-20 [id number] Diagnos is: ICD-10- CM E11.42 Type 2 diabete s mellitu s with diabeti c polyneu ropathy
NAIDL,KARI 03/27 [place] [facility] [place] [facility] Outpatient Encounter [id number] 04/16 [place] [facility] [facility] [place] [facility] MTMS BY PHARM EST 15 MIN [id number] Diagnos is: ICD-10- CM E11.42 Type 2 diabete s mellitu s with diabeti c polyneu ropathy
NAIDL,KARI 04/26 [facility] OFFICE O/P EST MOD 30 MIN [id number] Diagnos is: ICD-10- CM E11.42 Type 2 diabete s mellitu s with diabeti c polyneu ropathy
ABERhiannon STACYMICAELA A 05/17 [facility] IS [facility] MTMS BY PHARM EST 15 MIN [id number] Diagnos is: ICD-10- CM E11.42 Type 2 diabete s mellitu s with diabeti c polyneu ropathy
NAIDLKARI 06/11 [facility] Social History Combined list of available smoking, tobacco, and other social history from Department of Defense and Veterans Affairs facilities. Social History Type Response Date Comment Sourc e Tobacco smoking status NHIS VA-TOBACCO FORMER USER 05/17/2024 [facility] History of tobacco use AL-TOBACCO QUIT 1 5 YRS OR MORE 05/17/2024 [facility] History of tobacco use AL-TOBACCO QUIT 1 5 YRS OR MORE 08/18/2022 [facility] History of tobacco use AL-TOBACCO QUIT 1 5 YRS OR MORE 05/03/2021 [facility] History of tobacco use AL-TOBACCO FORMER USER 04/21/2020 [facility] History of tobacco use FORMER TOBACCO US E >1Y <7Y 04/03/2018 [facility] History of tobacco use CURRENT TOBACCO USER 03/09/2007 [facility] Plan of Care List of future care activities from Department Veterans Affairs facilities. Additional future care activities may be listed in the Assessment and Plan section. Date/Time Care Activity Care Activity Detail Facili ty 06/11/2024 AMBULATORY - NONE AMBULATORY - NONE [facility] 07/09/2024 AMBULATORY - NONE AMBULATORY - NONE [facility] Advance Directives List of completed, amended, or rescinded Advance Directives on record at Department Veterans Affairs facilities. An actual copy of the Directive is not included. Date Advance Directive Provider Source 06/22/2021 ADVANCE DIRECTIVE DISCUSSION ALLYSON GRAF [facility] 06/22/2021 ADVANCE DIRECTIVE ALLYSON GRAF [facility] 03/09/2007 ADVANCE DIRECTIVE SOLEDAD WOLFF [facility]
--- OUTSIDE RECORDS SUMMARY | 2024-06-11 14:50 | XMS_ITS | Clinical Summary ---
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 Gender Identity Not on file Sexual Orientation Not on file Last Filed Vital Signs Vital Sign Reading Time Taken Comments Blood Pressure 148/85 06/26/2018 5:58 PM RETAIL LINK ANALYST Pulse 90 06/26/2018 5:58 PM RETAIL LINK ANALYST Temperature 36.6 ??C (97.8 ??F) 06/26/2018 5:58 PM CS T Respiratory Rate 18 06/26/2018 5:58 PM RETAIL LINK ANALYST Oxygen Saturation 95% 06/26/2018 7:00 PM RETAIL LINK ANALYST Inhaled Oxygen Concentration - - Weight 112 kg (247 lb) 06/26/2018 5:58 PM RETAIL LINK ANALYST Height 180.3 cm (5' 11) 06/26/2018 5:58 PM RETAIL LINK ANALYST Body Mass Index 34.45 06/26/2018 5:58 PM RETAIL LINK ANALYST Plan of Treatment Not on file Insurance MEDICARE [facility] MEDICARE SUPPLEMENT Care Teams Technology Coach Relationship Specialty Start Date End Date Post, Dave Wakefield MD PCP - General Internal Medicine 06/26/18
--- OUTSIDE RECORDS SUMMARY | 2024-06-11 14:50 | XMS_ITS | Referral Summary ---
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 Gender Identity Not on file Sexual Orientation Not on file Last Filed Vital Signs Vital Sign Reading Time Taken Comments Blood Pressure 148/85 06/26/2018 5:58 PM AIRPORT REFUELING HANDLER Pulse 90 06/26/2018 5:58 PM AIRPORT REFUELING HANDLER Temperature 36.6 ??C (97.8 ??F) 06/26/2018 5:58 PM CS T Respiratory Rate 18 06/26/2018 5:58 PM AIRPORT REFUELING HANDLER Oxygen Saturation 95% 06/26/2018 7:00 PM AIRPORT REFUELING HANDLER Inhaled Oxygen Concentration - - Weight 112 kg (247 lb) 06/26/2018 5:58 PM AIRPORT REFUELING HANDLER Height 180.3 cm (5' 11) 06/26/2018 5:58 PM AIRPORT REFUELING HANDLER Body Mass Index 34.45 06/26/2018 5:58 PM AIRPORT REFUELING HANDLER Plan of Treatment Not on file Insurance MEDICARE [facility] MEDICARE SUPPLEMENT Care Teams Implant Polisher Relationship Specialty Start Date End Date Post, Dave Wakefield MD PCP - General Internal Medicine 06/26/18
--- OUTSIDE RECORDS SUMMARY | 2024-06-11 14:50 | XMS_ITS | Encounter Summary ---
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 [facility] [place] Address [address] [place] [address] Care Team Providers Care Electronic Transaction Implementer Name Role Phone CHARLEE FISH Primary Care [...] MEDIC ARE SUPPL EMENT Jul 31, 2018 [id number] RENKANE LUGO ALEX PATIENT [place] MEDICARE SUPPLEMEN [place] MEDIC ARE SUPPL EMENT Jul 31, 2018 [id number] [phone] RENBRITTNEY,JU ALEX PATIENT [place] [facility] (WNR) MEDICARE ADVANTAGE [facility] (WNR) Jul 31, 2017 [id number] [phone] RENAUX,JU ALEX PATIENT [place] MED[place] SUPPLEMEN [place] MEDIC ARE SUPPL EMENT Jul 31, 2018 [id number] RENAUX,JU A[place] MEDIC ARE SUPPL EMENT Jul 31, 2018 [id number] [phone] RENAUX,JU ALEX PATIENT MEDICARE (WNR) MEDICARE ([place]) PART A May 31, 2011 PART A [id number] [phone] KANE MANTILLA PATIENT MEDICARE (WNR) MEDICARE ([place]) PART B May 31, 2011 PART B [id number] KANE MANTILLA PATIENT Selected Encounter This section includes the information on record at [place] for the Encounter. Date/Time Encounter Type Encounter Description Reason Provider Source Jun 11, 2024 11:30 AM MTMS BY PHARM ERICK 15 MIN TELEPHONE PRIMARY CARE ICD-10-CM E11.42 Type 2 diabetes mellitus with diabetic polyneuropathy KARI BRITO [facility] Encounter Template Text not used by [place] Assessments - Encounter Diagnoses This section includes the primary and secondary diagnoses documented for the Encounter. Date/Time Primary/Secondary Diagnosis Diagnosis Name Provider Source Jun 11, 2024 11:30 AM PRIMARY Type 2 diabetes mellitus with diabetic polyneuropathy KARI BRITO [facility] Plan of Treatment: Future Appointments (+ 6 months) and Future Tests (+/- 45 days) The Plan of Treatment section includes future care activities for the patient from all [place] treatmentfacilities. This section includes future appointments and future orders which are active, pending or scheduled. Future Appointments This section includes appointments that were scheduled to occur 6 months from the date of the Encounter, up to a maximum of 20 appointments. The data comes from all [place] treatment facilities. Appointment Date/Time Appointment Type Appointme nt Facility Name Jul 09, 2024 11:30 AM AMBULATORY - NONE [facility] Lab Results: +/- 30 days of the encounter This section includes the Chemistry and Hematology Lab Results on record with [place] for the patient. Radiology Reports and Pathology Reports are provided separately, in subsequent sections. Lab Results This section contains the Chemistry/Hematology Results that were resulted 30 days before or 30 daysafter the date of the Encounter. Date/Time Source Result Type Result - Unit Interpretation Reference Range Comment May 17, 2024 01:[address] [facility] HEMOGLOBIN A1C Specimen Type: [...] Apr 16, 2024 11:04 AM Reporting Lab: [facility] [id number] Performing Lab: [facility] [id number] HEMOGLOBIN A1C 8.4 H 4.0-6.0 May 17, 2024 01:[address] [facility] BASIC METABOLIC PANEL+MG Specimen Type: PLASMA No comment entered. Ordering Provider: SOSA FISH Report Released Date/Time: Apr 16, 2024 11:04 AM Reporting Lab: [facility] [id number] Performing Lab: [facility] [id number] CREATININE 1.2 mg/dL 0.7-1.2 UREA NITROGEN 22 mg/dL 8-26 GLUCOSE 187 mg/dL H 70-100 SODIUM 138 mmol/L 136-145 POTASSIUM 4.5 mmol/L 3.5-5.1 CHLORIDE 102 mmol/L 98-107 CO2 25 mmol/L 22-29 CALCIUM 9.7 mg/dL 8.4-10.2 MAGNESIUM 1.7 mg/dL 1.6-2.6 ANION GAP 11 mmol/L 5-15 .CREAT EGFR(CKD-EPI ) 62 >60 May 17, 2024 01:[address] [facility] CBC & DIFF Specimen Type: BLOOD Comment: Automated Differential Performed Ordering Provider: SOSA FISH Report Released Date/Time: Apr 16, 2024 11:04 AM Reporting Lab: [facility] [id number] Performing Lab: [facility] [id number] WBC 8.8 4.0-11.0 RBC 4.74 4.60-6.20 HGB [...] O,PRO) 0.3 ABS IMMATURE GRAN 0.0 0.0-0.1 Social History: Smoking Status (Most current) and [...] 17, 2024 02:45 PM VA-TOBACCO FORMER USER [facility] Tobacco Use History This section includes a history of the smoking, or tobacco-related health factors, that were collected on or before the date of the Encounter. The data comes from the [place] facility where the Encounter took place. Date/Time Smoking Status/Tobacco Use Comment F acility May 17, 2024 02:45 PM VA-TOBACCO QUIT [address] [facility] Aug 18, 2022 08:30 AM VA-TOBACCO FORMER USER [facility] Aug 18, 2022 08:30 AM VA-TOBACCO QUIT [address] [facility] May 03, 2021 08:00 AM VA-TOBACCO FORMER USER [facility] May 03, 2021 08:00 AM VA-TOBACCO QUIT [address] [facility] Apr 21, 2020 09:00 AM VA-TOBACCO FORMER USER [facility] Apr 21, 2020 09:00 AM VA-TOBACCO QUIT [address] [facility] Apr 03, 2018 03:16 PM FORMER TOBACCO USE >1Y <7Y [facility] Mar 09, 2007 10:41 AM CURRENT TOBACCO USER [facility] Advance Directives: All historical [...] Source Jun 22, 2021 ADVANCE DIRECTIVE DISCUSSION GRAFALLYSON BENOIT [facility] Jun 22, 2021 ADVANCE DIRECTIVE TREMAINE GRAFMAR Rhiannon KOCH [facility] Mar 09, 2007 ADVANCE DIRECTIVE SOLEDAD WOLFF [facility] Encounter Notes: All associated encounter notes This section contains the clinical notes associated to the Encounter. Date/Time Encounter Note(s) Provider Source Jun 11, 2024 11:19 AM CONTRACT IMPLEMENTATION ANALYST NOTE: LOCAL TITLE: DIABETES CONTRACT IMPLEMENTATION ANALYST NOTE STANDARD TITLE: CONTRACT IMPLEMENTATION ANALYST NOTE DATE OF NOTE: JUN 11, 2024@11:19 ENTRY DATE: JUN 11, 2024@11:20 AUTHOR: KARI BRITO COSIGNER: URGENCY: STATUS: COMPLETED BACKGROUND: BETOMIGUELINA CHRISTIAN is a 79 YO MALE contacted by phone for medication management, mainly for DM. Active problems - Computerized Problem List is the source for the followin. Foot Pain - left 5th metatarsal fracture 2. Diabetes mellitus (SNOMED CT 74193837) 3. Hyperlipidemia (SNOMED CT 97059691) 4. Depressive Disorder NOS * 5. Tobacco user (SNOMED CT 696788346) 6. Personal History of Alcoholism 7. Other Iatrogenic Hypotension 8. Hyperuricemia 9. Osteopenia 10. History of amputation of lesser toe 11. Diabetic neuropathy 12. Exposure to potentially hazardous substance ([facility] [id number]) [facility] Documentation Initiative SUBJECTIVE: In brief, reports doing ok. At our last visit, we moved his glargine to qAM-he has struggled with doing this consistently and has been alternating administration times, as such. Notes he was under the impression he had to take it with bkfst, so periodically will forget to take if eating a later meal. Reviewed glargine instructions, highlighting that he can take without regards to meals--he feels he would have no issue taking at the same time now. At his recent PCP visit, discussed increasing his semaglutide to 2 mg. He has taken 2 doses and feels it has led to a further reduction in his appetite. Has noted n/v mainly related to eating larger meals. Since moderating intake, denies issues. Prefers to continue the same for now. Continues to struggle with an open wound on his foot and is following closely with podiatry on a weekly basis. Lifestyle: Tobacco: Denies EtOH: Denies Food and Drink: Breakfast: egg/stoner/1 piece of toast on occasion a bkfst roll or milk/cereal Lunch: varies--sometimes skips or a sandwich or grapes/cheese, beef stew Evening meal: neon sign servicer -- sandwich or fruit/cheese Snacks: snickers, Allie kisses, ice cream, cookies on occasion. other times, nuts and beef jerky. Beverages: diet coke, water, coffee Activity: Uses a walker or cane when ambulating, which is limited given his foot wounds. ROS: (-) hypoglycemia symptoms -->no lows recently. We have reviewed the rule of 15s. (-) hyperglycemia symptoms SMBG Readings: Checks prn as indicated given CGM use. Home BP Readings: Previously reported 120s/80s 90s at home. Did not have actual readings. Nurse checks 3x weekly. Adherence to medications: Manages independently using a pillbox. Denies any issues with missed doses, but will take his insulin on a mixed schedule--sometimes in the morning and sometimes in the evening. OBJECTIVE: Name: Miguelina Mantilla Date of : 1945 Report Period: 05/29/2024 - 06/11/2024 (14 days) Generated: 06/11/2024 % Time CGM Active: 97% Glucose Statistics and Targets Average Glucose: 180 mg/dL Glucose Management Indicator (GMI): 7.6% Glucose Variability (%CV): 26.4% Target Range: 70 - 180 mg/dL Time in Ranges Very High: >250 mg/dL --- 11% High: 181 - 250 mg/dL --- 31% Target Range: 70 - 180 mg/dL --- 58% Low: 54 - 69 mg/dL --- 0% Very Low: <54 mg/dL --- 0% Low Alarm: 70 High Alarm: off Trends: fastings in the mid-100s, increasing during the day and peaking around 9pm in the mid-200s. No lows noted. ALLERGIES/ADR: VANCOMYCIN (Apr 27, 2018) Outpatient Medications Status ======= 1) ATORVASTATIN CALCIUM 40MG TAB TAKE ONE TABLET BY ACTIVE MOUTH EVERY DAY FOR CHOLESTEROL 2) DICLOFENAC NA 1% TOP GEL APPLY 4 GRAMS TOPICALLY FOUR HOLD TIMES A DAY NEEDED FOR JOINT PAIN 3) FINASTERIDE 5MG TAB TAKE ONE TABLET BY MOUTH EVERY ACTIVE DAY FOR PROSTATE 4) INSULIN,GLARGINE-YFGN 100UNIT/ML PEN 3ML INJECT 24 confirmed UNITS UNDER THE SKIN EVERY MORNING FOR DIABETES 5) METFORMIN HCL 1000MG TAB TAKE ONE TABLET BY MOUTH confirmed TWICE A DAY FOR DIABETES 6) OMEPRAZOLE 20MG EC CAP TAKE ONE CAPSULE BY MOUTH ACTIVE EVERY DAY ON AN EMPTY STOMACH, AT LEAST 30 MINUTES PRIOR TO A MEAL FOR GERD 7) SEMAGLUTIDE 2MG/0.75ML INJ PEN 3ML INJECT 2MG UNDER confirmed THE SKIN ONCE WEEKLY FOR DIABETES has taken 2 doses 8) TAMSULOSIN HCL 0.4MG CAP TAKE ONE [...] Also, has chronic uro issues. Vitals: Temperature: 97.8 F [36.6 C] (05/17/2024 14:50) Blood Pressure: 123/79 (05/17/2024 14:50) Pulse: 113 (05/17/2024 14:50) Respiration: 18 (03/22/2023 14:13) Pain: 0 (05/17/2024 14:50) Pulse Oximetry: 95% (05/17/2024 14:50) Weight-Last 3: Measurement DT WEIGHT LB(KG)[BMI] 05/17/2024 14:50 240.8(109.23)[35*] 03/22/2023 14:13 221(100.24)[31*] 08/18/2022 08:26 Vpwtqparidv57/23/2023 14:13 221(100.24)[31*] 08/18/2022 08:26 Unavailable 12/22/2021 13:51 235(106.59)[33*] LABS: SMA7: Na: SODIUM 138 (05/17/24) K: POTASSIUM 4.5 (05/17/24) Cl: CHLORIDE 102 (05/17/24) CO2: CO2 25 (05/17/24) BUN: UREA NITROGEN 22 (05/17/24) Creatinine: CREATININE 1.2 (05/17/24) Glucose: GLUCOSE 187 H (05/17/24) Collection DT Specimen Test Name Result Units [...] >60 Ref: >=60 Collection DT Spec HGBA1C 05/17/2024 8.4 H 03/22/2024 7.1 H 10/25/2023 7.9 H local [...] 80-160, PPG <210) per [place] guidelines. Recent a1c was up and above goal. More recent CGM data suggests improving control. Given recent increase on semaglutide, further benefits may be seen in coming weeks. Vet agreeable with taking glargine in the morning, at the same, and understands he does not need to coordinate with meals. Will continue the present doses of current meds. PLAN: Medications: -Take glargine at 24 units qAM --AIM TO take at the same time, regardless of meals -fine to adjust by 2 units every 3 days, targeting fastings in the 100- 150 range. -Continue Semaglutide 2 mg q 7 days -Continue metformin 1 gm BID -Continue other meds, as above Monitoring: - SMBG prn - Continue Ashley 3 CGM -Using an Ratio plus -Provided the InLive Interactive support number again today for any issues #Disease-Specific Med Rec: Completed today #Labs: up-to-date - Educated vet on indication/risks/benefits of new/changed medication. - Education provided on therapeutic nonpharmacologic management to achieve goals. - Vet advised of recent labs. - verbalized understanding to all plans discussed today. Questions were answered to vet's satisfaction. Time spent: 20 minutes RTC: -07/09 pharmD phone prefers to avoid [facility]-only has a cellphone /toby/ KARI BRITO PHARM D, BCPS Clinical Pharmacist Practitioner-[facility] Signed: 06/11/2024 11:[address] [facility]
--- OUTSIDE RECORDS SUMMARY | 2024-06-11 14:50 | XMS_ITS | Clinical Summary ---
Author Organization [facility] Address [place], [place] [address] Care Team Providers Care Employee Benefits Specialist Name Role Phone Post, Dave Velazquez MD Primary Care Provider Moshe Enciso MD Unavailable Arie Justin MD Unavailable [phone] [facility], Met Unavailable Murali Hoover DPM Unavailable [phone] Allergies No known active allergies Medications [...] hypertension and/or CHF. Please look for [facility] Care Goal Contract in Chart Review/ Letters and support this effort. Please direct questions to Care Guide Pamella Brennan Phone number [phone]. 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 Plan of Treatment Health Maintenance Due Date [...] 07/16/2020, 04/21/2020 Medical Devices Implanted Type Area Switchboard Installer Device Identifier Shelf Expiration Date Model / Serial / Lot [id number] - [id number] Implanted:Qty: 1 on 09/20/2021 at [facility] Right: Foot [employer] AR-8725-4 4H / / Description:COMPRESSION FT S CREWS CANNULATED, 2.5 MICRO 44MM LOAD 4 [id number] Kristina-1530p - [id number] Implanted:Qty: 1 on 09/20/2021 at [facility] Right: Foot [employer] 03/30/2025 AR-1530P- CP / / [id number] Description:FOREFOOT INTERNA L BRACE IMPLANT SYSTEM, PEEK Screw [id number] Bio Compositetenodesis Disp Principal Archaeologist Pk - [id number] Implanted:Qty: 1 on 09/20/2021 at [facility] Right: Foot [employer] 08/30/2022 AR-1547CD S / / [id number] Ancr Sut 1.3mm Dx Fibertak Suturetape 2 Ndl 26.2mm 08/01 [facility] - [id number] Implanted:Qty: 1 on 09/20/2021 at [facility] Right: Foot [employer] 06/29/2026 AR-8990ST / / [id number] Explanted Type Area Switchboard Installer Device Identifier Shelf Expiration Date Model / Serial / Lot Wire Kirs .[id number] Smooth6/Pk Depuy/Héctor - [id number] Explanted:Qty: 1 on 09/20/2021 at [facility] Right: Foot [employer] / / Description:LOAD 4 8 [id number] [facility]8737-40 - [id number] Explanted:Qty: 1 on 09/20/2021 at [facility] Right: Foot [employer] [id number] / / Description:2.5 MICRO COMPRE SSION FT DRILLS AND DISPOSABLES, GUIDEWIRE W TROCAR TIP, THREADED, 0.34 IN (.86MM) LOAD 4 7 [id number] Procedures Procedure Name Priority Date/Time Associated Diagnosis [...] Documents on File Type Date Recorded Patient 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 Expl 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 Healthcare Directive 05/21/2021 3:50 PM [...] Code Status Discussion: Reviewed Preferences Care Teams Employee Benefits Specialist Relationship Specialty Start Date End Date Post, Dave Velazquez MD PCP - General 06/02/10 Moshe Enciso MD [address] [place] [id number] Endocrinology Endocrinology 01/04/18 [place] [address] [place], [place] [id number] Surgery - Ophthalmology 03/22/18 [facility] [address] [place] [address] 06/08/21 Murali Hoover DPM [address] [place] [address] Surgery - Podiatric 01/03/23
== END 2024-06-11 14:48 | disposition home or self-care (01) ==
LOC: WOUND 14:47
PROVIDERS: Visit Provider Family Medicine
DX: E11.621 Type 2 diabetes mellitus with foot ulcer (principal); L97.512 Non-pressure chronic ulcer of other part of right foot with fat layer exposed; I89.0 Lymphedema, not elsewhere classified; Z79.85 Long-term (current) use of injectable non-insulin antidiabetic drugs
CPT/HCPCS: G0463

== ENCOUNTER 2024-06-18 11:24 | Outpatient (CLI) | payer MEDICARE, BC, SELFPAY ==
--- OUTSIDE RECORDS SUMMARY | 2024-06-18 11:27 | XMS_ITS | Encounter Summary ---
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 Address [address] [place] [address] Care Team Providers Care Conventions Assistant Name Role Phone CHARLEE FISH Primary Care [...] MEDIC ARE SUPPL EMENT Jul 31, 2018 [id number] [phone] RODNEYBRITTNEYKANE ALEX PATIENT [place] MEDICARE SUPPLEMEN SCOT MEDIC ARE SUPPL EMENT Jul 31, 2018 [id number] [phone] RENBRITTNEYKANE ALEX [place]IENT [place] [facility] (WNR) MEDICARE ADVANTAGE [facility] (WNR) Jul 31, 2017 [id number] [phone] RENBRITTNEY,KANE ALEX PATIENT [place] MED[place]ARE SUPPLEMEN [place]OT MEDIC ARE SUPPL EMENT Jul 31, 2018 [id number] RENBRITTNEY,KANE ALEX PAT[place] MEDIC ARE SUPPL EMENT Jul 31, 2018 [id number] [phone] RENBRITTNEY,KANE ALEX PATIENT MEDICARE ([place]NR) MEDICARE ([place]) PART A May 31, 2011 PART A [id number] KANE PÉREZ PATIENT MEDICARE ([place]NR) MEDICARE ([place]) PART B May 31, 2011 PART B [id number] [phone] KANE PÉREZ PATIENT Selected Encounter This section includes the information on record at [place] for the Encounter. Date/Time Encounter Type Encounter Description Reason Pro vider Source IHE Encounter Template Text not used by [place] Advance Directives: All historical and current Section Date Range: From patient's date of to the date document was created. This section includes ALL of a patient's completed or amended [place] Advance and Rescinded Directives. The entries below indicate that a directive exists for the patient, but an actual copy is not included with this document. The data comes from all [place] facilities. Date Advance Directives Provider Source Jun 22, 2021 ADVANCE DIRECTIVE DISCUSSION ALLYSON GRAF [facility] Jun 22, 2021 ADVANCE DIRECTIVE ALLYSON GRAF [facility] Mar 09, 2007 ADVANCE DIRECTIVE SOLEDAD WOLFF [facility]
--- OUTSIDE RECORDS SUMMARY | 2024-06-18 11:27 | XMS_ITS | Encounter Summary ---
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 [facility] [place] Address [address] [place] [address] Care Team Providers Care Shrink Pit Supervisor Name Role Phone CHARLEE FISH Primary [...] MEDIC ARE SUPPL EMENT Jul 31, 2018 [id number] RENAUX,JU ALEX PATIENT [place] MED[place] MEDIC ARE SUPPL EMENT Jul 31, 2018 [id number] [phone] RENAUX,JU ALEX PATIENT [place] [facility] (WNR) MEDICARE ADVANTAGE [facility] (WNR) Jul 31, 2017 [id number] [phone] RENAUX,JU ALEX [place] MEDIC ARE SUPPL EMENT Jul 31, 2018 [id number] RENAUX,JU ALEX [place] MEDIC ARE SUPPL EMENT Jul 31, 2018 [id number] [phone] RENAUX,JU ALEX PATIENT MEDICARE ([place]NR) MEDICARE ([place]) PART A May 31, 2011 PART A [id number] KANE PÉREZ PATIENT MEDICARE ([place]) MEDICARE ([place]) PART B May 31, 2011 PART B [id number] KANE PÉREZ PATIENT Selected Encounter This section includes the information on record at [place] for the Encounter. Date/Time Encounter Type Encounter Description Reason Pro vider Source Mar 14, 2024 02:32 PM Outpatient Encounter CLINICAL PHARMACY IHE Encounter Template Text not used by [place] Plan of Treatment: Future Appointments (+ 6 months) and Future Tests (+/- 45 days) The Plan of Treatment section includes future care activities for the [facility] [place] [facility] This section includes future appointments and future orders which are active, pending or scheduled. Future Appointments This section includes appointments that were scheduled to occur 6 months from the date of the Encounter, up to a maximum of 20 appointments. The data comes from all [facility] facilities. Appointment Date/Time Appointment Type Appointme nt Facility Name Apr 09, 2024 09:00 AM AM[place]ATORY - NONE [place] [facility] Apr 12, 2024 11:30 AM [place]UL[place]ORY - NONE [place] [facility] Apr 17, 2024 01:30 PM AMBULATORY - NONE [place] [facility] Apr 26, 2024 01:30 PM AMBULATORY - NONE [place] [facility] May 17, 2024 02:00 PM AMBULATORY - NONE [place] [facility] May 17, 2024 02:45 PM AMBULATORY - MEDICINE [facility] Jun 11, 2024 11:30 AM AMBULATORY - NONE [place] [facility] Jul 09, 2024 11:30 AM AMBULATORY - NONE [place] [facility] Social History: Smoking Status (Most [...] 18, 2022 08:30 AM VA-TOBACCO FORMER USER [facility] Tobacco Use History This section includes a history of the smoking, or tobacco-related health factors, that were collected on or before the date of the Encounter. The data comes from the [place] facility where the Encounter took place. Date/Time Smoking Status/Tobacco Use Comment F acility Aug 18, 2022 08:30 AM VA-TOBACCO QUIT 15 YRS OR MORE [facility] May 03, 2021 08:00 AM VA-TOBACCO FORMER USER [facility] May 03, 2021 08:00 AM VA-TOBACCO QUIT 15 YRS OR MORE [facility] Apr 21, 2020 09:00 AM VA-TOBACCO FORMER USER [facility] Apr 21, 2020 09:00 AM VA-TOBACCO QUIT 15 YRS OR MORE [facility] Apr 03, 2018 03:16 PM FORMER TOBACCO USE >1Y <7Y [facility] Mar 09, 2007 10:41 AM CURRENT TOBACCO USER [facility] Advance Directives: All historical and current Section Date Range: From patient's date of to the date document was created. This section includes ALL of a patient's completed or amended [place] Advance and Rescinded Directives. The entries below indicate that a directive exists for the patient, but an actual copy is not included with this document. The data comes from all [facility]. Date Advance Directives Provider Source Jun 22, 2021 ADVANCE DIRECTIVE DISCUSSION ALLYSON GRAF [facility] Jun 22, 2021 ADVANCE DIRECTIVE ALLYSON GRAF [facility] Mar 09, 2007 ADVANCE DIRECTIVE SOLEDAD WOLFF [facility] Encounter Notes: All associated encounter notes This section contains the clinical notes associated to the Encounter. Date/Time Encounter Note(s) Provider Source Mar 14, 2024 02:32 PM PHARMACY NOTE: LOCAL TITLE: PHARMACY MEDICATION RETURNED STANDARD TITLE: PHARMACY NOTE DATE OF NOTE: MAR 14, 2024@14:32 ENTRY DATE: MAR 14, 2024@14:32:36 AUTHOR: ASHISH STOKES EXP COSIGNER: URGENCY: STATUS: COMPLETED [facility] [address] [place] [address] Feb MIGUELINA PÉREZ [address] [address] Dear , A package containing the following medication(s)/supply item(s) was returned by the USPS/UPS: [id number] INSULIN,GLARGINE-YFGN 100UNIT/ML PEN 3ML Reason for return: [...] ON Monday03/18/2024. /toby/ ASHISH STOKES pharmacy clinical coordinator Signed: 03/14/2024 14:34 ASHISH STOKES [facility]
--- OUTSIDE RECORDS SUMMARY | 2024-06-18 11:27 | XMS_ITS | Continuity of Care Document ---
Author Name [facility] Organization [facility] Care Team Providers Care Shellfish Sorter Name Role Phone [facility] Unavailable Unavailable Problems Combined list of problems from Department of Defense and Veterans Affairs facilities. It does not include entries that were removed or entered in error. Problem Status Onset Date Problem Type Date of Resolution Comments Source Exposure to potentially hazardous substance ([facility] [id number]) Active 10/05/19 24 Condition Oct 05, 2023 Entered By: VIJI VVIAS Comment: [facility] Documentation Initiative [facility] Depressive Disorder NOS * (ICD-9-CM 311./300.4) Active Condition [facility] Diabetes mellitus (SNOMED CT 43292294) Active Condition [facility] Diabetic neuropathy Active Condition [facility] Foot Pain (ICD-9-CM 719.47) Active Condition Aug 26 10 Entered By: MALINA WORLEY Comment: left 5th metatarsal fracture [facility] History of amputation of lesser toe Active Condition [facility] Hyperlipidemia (SNOMED CT 86101663) Active Condition [facility] Hyperuricemia Active Condition [facility] Osteopenia Active Condition [place] [facility] Other Iatrogenic Hypotension Active Condition [place] [facility] Personal History of Alcoholism (ICD-9-CM V11.3) Active Condition [facility] Tobacco user (SNOMED CT 650181292) Active Condition [facility] Diagnosis: ICD-10-CM E11.42 Type 2 diabetes mellitus with diabetic polyneuropathy Active Diagnosis [facility] Diagnosis: ICD-10-CM E11.621 Type 2 diabetes mellitus with foot ulcer Active Diagnosis [facility] Diagnosis: ICD-10-CM Z77.29 Contact with and exposure to other hazardous substances Active Diagnosis [facility] Medications Combined list of outpatient [...] DAY ORAL ACTIVE FISHCHARLEE Bowers A 2022 [facility] ASPIRIN 81MG TAB,EC TAKE ONE TABLET BY MOUTH EVERY DAY ORAL ACTIVE ANSMYRAAZB ER A 2006 [facility] ATORVASTATI N [place] 40MG TAB TAKE ONE TABLET BY MOUTH EVERY DAY FOR CHOLESTE ROL ORAL ACTIVE 04/18/2025 [id number] 4 NAIDL,TOD D 2023 90 [facility] ATORVASTATI N [place] 40MG TAB TAKE ONE TABLET BY MOUTH EVERY DAY FOR CHOLESTE ROL ORAL DISCONT INUED 04/11/2024 [id number] 4 ABECHARLEE A 2022 90 [facility] ATORVASTATI N CA 40MG TAB TAKE ONE TABLET BY MOUTH EVERY DAY FOR CHOLESTE ROL ORAL DISCONT INUED 07/15/2023 [id number] 3 NAIDL,TOD D 2022 90 [facility] CHOLECALCIF QUINTIN TAB TAKE 5000 UNITS BY MOUTH EVERY DAY ORAL ACTIVE FISHCHARLEE Bowers A 2022 [facility] COENZYME Q10 CAP/TAB TAKE 1 CAPSULE BY MOUTH EVERY DAY ORAL ACTIVE FISHCHARLEE A 2022 [facility] CYANOCOBALA MIN 1000MCG TAB TAKE ONE TABLET BY MOUTH EVERY DAY ORAL ACTIVE NAIDL,TOD D 2021 [facility] DICLOFENAC NA 1% GEL,TOP APPLY 4 GRAMS TOPICALL Y FOUR TIMES A DAY NEEDED FOR JOINT PAIN TOPICA L HOLD 05/18/2025 [id number] FISHCHARLEE Bowers A 2023 100 [facility] DICLOFENAC NA 1% GEL,TOP APPLY 4 GRAMS TOPICALL Y FOUR TIMES A DAY NEEDED FOR JOINT PAIN TOPICA L 03/22/2024 [id number] FISHCHARLEE A 2022 100 [facility] FINASTERIDE 5MG TAB TAKE ONE TABLET BY MOUTH EVERY DAY FOR PROSTATE ORAL ACTIVE 04/18/2025 [id number] 4 CHARLEE FISH A 2023 90 [facility] FINASTERIDE 5MG TAB TAKE ONE TABLET BY MOUTH EVERY DAY FOR PROSTATE ORAL DISCONT INUED 04/11/2024 [id number] 4 CHARLEE FISH A 2022 90 [facility] FINASTERIDE 5MG TAB TAKE ONE TABLET BY MOUTH EVERY DAY FOR PROSTATE ORAL DISCONT INUED 07/13/2023 [id number] 3 CHARLEE FISH A 2021 90 [facility] FISH OIL 1000MG (500MG DHA/EPA) CAP,ORAL TAKE 1 CAPSULE BY MOUTH TWICE A DAY ORAL ACTIVE KENRICKMARYEdward Bowers 2006 [facility] INSULIN,GLA RGINE-YFGN 100UNIT/ML INJ PEN,3ML INJECT 24 UNITS UNDER THE SKIN EVERY MORNING FOR DIABETES SUBCUT ANEOUS ACTIVE 04/27/2025 [id number] 4 NAIDL,TOD D 2023 5 [facility] INSULIN,GLA RGINE-YFGN 100UNIT/ML INJ PEN,3ML INJECT 24 UNITS UNDER THE SKIN EVERY EVENING FOR DIABETES SUBCUT ANEOUS DISCONT INUED (EDIT) 04/17/2025 [id number] 4 NAIDL,TOD D 2023 5 [facility] INSULIN,GLA RGINE-YFGN 100UNIT/ML INJ PEN,3ML INJECT 24 UNITS UNDER THE SKIN EVERY EVENING FOR DIABETES SUBCUT ANEOUS DISCONT INUED 08/29/2024 [id number] 4 NAIDL,TOD D 2023 5 [facility] INSULIN,GLA RGINE-YFGN 100UNIT/ML INJ PEN,3ML INJECT 22 UNITS UNDER THE SKIN AT BEDTIME FOR DIABETES SUBCUT ANEOUS DISCONT INUED (EDIT) 01/07/2024 [id number] 3 NAIDL,TOD D 2022 5 [facility] LIDOCAINE 4% CREAM,TOP APPLY MODERATE AMOUNT TOPICALL Y THREE TIMES A DAY FOR PAIN TOPICA L 03/22/2024 [id number] CHARLEE FISH 2022 30 [facility] MAGNESIUM OXIDE 400MG TAB TAKE ONE TABLET BY MOUTH EVERY DAY ORAL ACTIVE CHARLEE FISH 2022 [facility] MENTHOL/MET HYL SALICYLATE (10-15%) LOW CONC. CREAM,TOP APPLY THIN LAYER TOPICALL Y THREE TIMES A DAY FOR MUSCLE PAIN TOPICA L 03/22/2024 [id number] 3 CHARLEE FISH 2022 90 [facility] METFORMIN HCL 1000MG TAB TAKE ONE TABLET BY MOUTH TWICE A DAY FOR DIABETES ORAL ACTIVE 07/16/2024 [id number] 4 NALIANNATOD D 2023 180 [facility] METFORMIN HCL 1000MG TAB TAKE ONE TABLET BY MOUTH TWICE A DAY FOR DIABETES ORAL DISCONT INUED 04/11/2024 [id number] 4 CHARLEE FISH Robinson 2022 180 [facility] METFORMIN HCL 1000MG TAB TAKE ONE TABLET BY MOUTH TWICE A DAY FOR DIABETES ORAL DISCONT INUED 07/15/2023 [id number] 3 DARYLTOD D 2022 180 [facility] OMEPRAZOLE 20MG CAP,EC TAKE ONE CAPSULE BY MOUTH EVERY DAY ON AN EMPTY STOMACH, AT LEAST 30 MINUTES PRIOR TO A MEAL FOR GERD ORAL ACTIVE 05/18/2025 [id number] 4 CHARLEE FISH Robinson 2023 90 [facility] OMEPRAZOLE 20MG CAP,EC TAKE ONE CAPSULE BY MOUTH EVERY DAY ON AN EMPTY STOMACH, AT LEAST 30 MINUTES PRIOR TO A MEAL FOR GERD ORAL DISCONT INUED 03/22/2024 [id number] FISHCHARLEE Bowers 2022 90 [facility] SEMAGLUTIDE 1MG/0.75ML INJ,SOLN,PE N,3ML INJECT 1MG UNDER THE SKIN EVERY WEEK FOR DIABETES SUBCUT ANEOUS DISCONT INUED 11/07/2024 [id number] 4 NAIDL,TOD D 2023 1 [facility] SEMAGLUTIDE 1MG/0.75ML INJ,SOLN,PE N,3ML INJECT 1MG UNDER THE SKIN EVERY WEEK FOR DIABETES SUBCUT ANEOUS DISCONT INUED 11/08/2023 [id number] 4 NAIDL,TOD D 2022 1 [facility] SEMAGLUTIDE 2MG/0.75ML INJ,SOLN,PE N,3ML INJECT 2MG UNDER THE SKIN ONCE WEEKLY FOR DIABETES SUBCUT ANEOUS ACTIVE 05/18/2025 [id number] 4 CHARLEE FISH A 2023 1 [facility] TAMSULOSIN HCL 0.4MG CAP TAKE ONE CAPSULE BY MOUTH EVERY EVENING ORAL ACTIVE 04/18/2025 [id number] 4 CHARLEE FISH A 2023 30 [facility] TAMSULOSIN HCL 0.4MG CAP TAKE ONE CAPSULE BY MOUTH EVERY EVENING ORAL DISCONT INUED 04/13/2024 [id number] 4 CHARELE FISH A 2022 30 [facility] TAMSULOSIN HCL 0.4MG CAP TAKE ONE CAPSULE BY MOUTH EVERY EVENING ORAL DISCONT INUED 04/11/2024 [id number] 3 CHARLEE FISH A 2022 90 [facility] TURMERIC CAP/TAB TAKE 500 MG BY MOUTH TWICE A DAY ORAL ACTIVE MATTY POWERS 2018 [facility] Allergies, Adverse Reactions, Alerts Combined list of allergies from Department of Defense and Veterans Affairs facilities. It does not include entries that were removed or entered in error. Substance Category Reaction Severity Reaction type Status Date Reported Comments Source VANCOMYCIN Propensity to adverse reactions to drug (finding) [place] active 8 [facility] Immunizations Combined list of available immunizations from the Department of Defense and Veterans Affairs facilities. Immunization Series Date Given Administered By Site Reaction Lot Number CVX Code Drug School Bus Aide Status Comments Source COVID-19 (PFIZER), MRNA, LNP-S, PF, JOSE-SUCROSE, 30 MCG/0.3 ML (AGES 12+ YEARS) 1 2023 TREVON GRIJALVA LEFT DELTO ID [id number] complet ed [facility] INFLUENZA, HIGH-DOSE, TRIVALENT, PF 2023 TREVON GRIJALVA LEFT DELTO ID [id number] A 135 complet ed [facility] ZOSTER RECOMBINANT 2 2019 187 complet ed [facility] INFLUENZA, INJECTABLE, QUADRIVALENT, PRESERVATIVE FREE 2019 150 complet ed [facility] ZOSTER RECOMBINANT 1 2019 187 complet ed [facility] INFLUENZA, HIGH-DOSE, QUADRIVALENT 2019 197 complet [facility] INFLUENZA, SEASONAL, INJECTABLE, PRESERVATIVE FREE 2017 140 complet ed [facility] INFLUENZA, INJECTABLE, QUADRIVALENT, PRESERVATIVE FREE 2017 150 complet ed [facility] INFLUENZA, INJECTABLE, QUADRIVALENT, PRESERVATIVE FREE 2015 150 complet ed [facility] TDAP 2015 115 complet ed [facility] TA PNEUMOCOCCAL CONJUGATE PCV 13 2015 133 complet [facility] TD (ADULT), 5 LF TETANUS TOXOID, PRESERVATIVE FREE, ADSORBED 2015 113 complet ed [facility] INFLUENZA, INJECTABLE, QUADRIVALENT, PRESERVATIVE FREE 2013 150 complet ed [facility] PNEUMOCOCCAL POLYSACCHARID E PPV23 2010 33 complet [facility] INFLUENZA, UNSPECIFIED FORMULATION 2006 88 complet [facility] PNEUMOCOCCAL, UNSPECIFIED FORMULATION 2006 109 complet ed [facility] TD(ADULT) UNSPECIFIED FORMULATION 2006 NONE 139 complet [...] Apr 16, 2024 11:04 AM Reporting Lab: [facility] [address] Performing Lab: [facility] [address] [place] [facility] BASIC METABOLIC PANEL+MG CREATININE [MASS/VOLUM E] IN SERUM OR PLASMA 1.2 mg/dL 0.7 - 1.2 05/17 Specimen Type: PLASMA No comment entered. Ordering Provider: ME LEEROY FISH Report Released Date/Time: Apr 16, 2024 11:04 AM Reporting Lab: [facility] [address] Performing Lab: [facility] [address] [place] [facility] BASIC METABOLIC PANEL+MG UREA NITROGEN [MASS/VOLUM E] IN SERUM OR PLASMA 22 mg/dL 8 - 26 05/17 Specimen Type: PLASMA No comment entered. Ordering Provider: ME LEEROY FISH Report Released Date/Time: Apr 16, 2024 11:04 AM Reporting Lab: [facility] [address] Performing Lab: [facility] [address] [place] [facility] BASIC METABOLIC PANEL+MG GLUCOSE [MASS/VOLUM E] IN SERUM OR PLASMA 187 mg/dL 70 - 100 05/17 H Specimen Type: PLASMA No comment entered. Ordering Provider: ME LEEROY FISH Report Released Date/Time: Apr 16, 2024 11:04 AM Reporting Lab: [facility] [address] Performing Lab: [facility] [address] [place] [facility] BASIC METABOLIC PANEL+MG SODIUM [MOLES/VOLU ME] IN SERUM OR PLASMA 138 mmol/L 136 - 145 05/17 Specimen Type: PLASMA No comment entered. Ordering Provider: ME LEEROY FISH Report Released Date/Time: Apr 16, 2024 11:04 AM Reporting Lab: [facility] [address] Performing Lab: [facility] [address] [place] [facility] BASIC METABOLIC PANEL+MG POTASSIUM [MOLES/VOLU ME] IN SERUM OR PLASMA 4.5 mmol/L 3.5 - 5.1 05/17 Specimen Type: PLASMA No comment entered. Ordering Provider: ME LEEROY FISH Report Released Date/Time: Apr 16, 2024 11:04 AM Reporting Lab: [facility] [address] Performing Lab: [facility] [address] [place] [facility] BASIC METABOLIC PANEL+MG CHLORIDE [MOLES/VOLU ME] IN SERUM OR PLASMA 102 mmol/L 98 - 107 05/17 Specimen Type: PLASMA No comment entered. Ordering Provider: ME LEEROY FISH Report Released Date/Time: Apr 16, 2024 11:04 AM Reporting Lab: [facility] [address] Performing Lab: [facility] [address] [place] [facility] BASIC METABOLIC PANEL+MG CARBON DIOXIDE, TOTAL [MOLES/VOLU ME] IN SERUM OR PLASMA 25 mmol/L 22 - 29 05/17 Specimen Type: PLASMA No comment entered. Ordering Provider: ME LEEROY FISH Report Released Date/Time: Apr 16, 2024 11:04 AM Reporting Lab: [facility] [address] Performing Lab: [facility] [address] [place] [facility] BASIC METABOLIC PANEL+MG CALCIUM [MASS/VOLUM E] IN SERUM OR PLASMA 9.7 mg/dL 8.4 - 10.2 05/17 Specimen Type: PLASMA No comment entered. Ordering Provider: ME LEEROY FISH Report Released Date/Time: Apr 16, 2024 11:04 AM Reporting Lab: [facility] [address] Performing Lab: [facility] [address] [place] [facility] BASIC METABOLIC PANEL+MG MAGNESIUM [MASS/VOLUM E] IN SERUM OR PLASMA 1.7 mg/dL 1.6 - 2.6 05/17 Specimen Type: PLASMA No comment entered. Ordering Provider: ME LEEROY FISH Report Released Date/Time: Apr 16, 2024 11:04 AM Reporting Lab: [facility] [address] Performing Lab: [facility] [address] [place] [facility] BASIC METABOLIC PANEL+MG ANION GAP IN SERUM OR PLASMA 11 mmol/L 5 - 15 05/17 Specimen Type: PLASMA No comment entered. Ordering Provider: ME LEEROY FISH Report Released Date/Time: Apr 16, 2024 11:04 AM Reporting Lab: [facility] [address] Performing Lab: [facility] [address] [place] [facility] BASIC METABOLIC PANEL+MG GLOMERULAR FILTRATION RATE/1.73 SQ M.PREDICTED [VOLUME RATE/AREA] IN SERUM, PLASMA OR BLOOD BY CREATININE- BASED FORMULA (CKD-EPI 2020) 62 60 05/17 Specimen Type: PLASMA No comment entered. Ordering Provider: ME LEEROY FISH Report Released Date/Time: Apr 16, 2024 11:04 AM Reporting Lab: [facility] [address] Performing Lab: [facility] [address] [place] [facility] CBC & DIFF LEUKOCYTES [#/VOLUME] IN BLOOD BY AUTOMATED COUNT 8.8 4.0 - 11.0 05/17 Specimen Type: BLOOD Comment: Automated Differentia l Performed Ordering Provider: ME LEEROY FISH Report Released Date/Time: Apr 16, 2024 11:04 AM Reporting Lab: [facility] [address] Performing Lab: [facility] [address] [place] [facility] CBC & DIFF ERYTHROCYTE S [#/VOLUME] IN BLOOD BY AUTOMATED COUNT 4.74 4.60 - 6.20 05/17 Specimen Type: BLOOD Comment: Automated Differentia l Performed Ordering Provider: ME LEEROY FISH Report Released Date/Time: Apr 16, 2024 11:04 AM Reporting Lab: [facility] [address] Performing Lab: [facility] [address] [place] [facility] CBC & DIFF HEMOGLOBIN [MASS/VOLUM E] IN BLOOD 13.1 g/dL 13.5 - 17.9 05/17 L Specimen Type: BLOOD Comment: Automated Differentia l Performed Ordering Provider: ME LEEROY FISH Report Released Date/Time: Apr 16, 2024 11:04 AM Reporting Lab: [facility] [address] Performing Lab: [facility] [address] [place] [facility] CBC & DIFF HEMATOCRIT [VOLUME FRACTION] OF BLOOD BY AUTOMATED COUNT 40.7 41.0 - 54.0 05/17 L Specimen Type: BLOOD Comment: Automated Differentia l Performed Ordering Provider: ME LEEROY FISH Report Released Date/Time: Apr 16, 2024 11:04 AM Reporting Lab: [facility] [address] Performing Lab: [facility] [address] [place] [facility] CBC & DIFF MCV [ENTITIC VOLUME] BY AUTOMATED COUNT 85.9 fL 80.0 - 100.0 05/17 Specimen Type: BLOOD Comment: Automated Differentia l Performed Ordering Provider: ME LEEROY FISH Report Released Date/Time: Apr 16, 2024 11:04 AM Reporting Lab: [facility] [address] Performing Lab: [facility] [address] [place] [facility] CBC & DIFF MCH [ENTITIC MASS] BY AUTOMATED COUNT 27.6 pg 27.0 - 33.0 05/17 Specimen Type: BLOOD Comment: Automated Differentia l Performed Ordering Provider: ME LEEROY FISH Report Released Date/Time: Apr 16, 2024 11:04 AM Reporting Lab: [facility] [address] Performing Lab: [facility] [address] [place] [facility] CBC & DIFF MCHC [MASS/VOLUM E] BY AUTOMATED COUNT 32.2 g/dL 32.0 - 37.5 05/17 Specimen Type: BLOOD Comment: Automated Differentia l Performed Ordering Provider: ME LEEROY FISH Report Released Date/Time: Apr 16, 2024 11:04 AM Reporting Lab: [facility] [address] Performing Lab: [facility] [address] [place] [facility] CBC & DIFF PLATELETS [#/VOLUME] IN BLOOD BY AUTOMATED COUNT 185 150 - 400 05/17 Specimen Type: BLOOD Comment: Automated Differentia l Performed Ordering Provider: ME LEEROY FISH Report Released Date/Time: Apr 16, 2024 11:04 AM Reporting Lab: [facility] [address] Performing Lab: [facility] [address] [place] [facility] CBC & DIFF PLATELET MEAN VOLUME [ENTITIC VOLUME] IN BLOOD BY AUTOMATED COUNT 9.6 fL 9.1 - 13.0 05/17 Specimen Type: BLOOD Comment: Automated Differentia l Performed Ordering Provider: ME LEEROY FISH Report Released Date/Time: Apr 16, 2024 11:04 AM Reporting Lab: [facility] [address] Performing Lab: [facility] [address] [place] [facility] CBC & DIFF NEUTROPHILS /100 LEUKOCYTES IN BLOOD BY MANUAL COUNT 68.6 40.0 - 80.0 05/17 Specimen Type: BLOOD Comment: Automated Differentia l Performed Ordering Provider: ME LEEROY FISH Report Released Date/Time: Apr 16, 2024 11:04 AM Reporting Lab: [facility] [address] Performing Lab: [facility] [address] [place] [facility] CBC & DIFF LYMPHOCYTES /100 LEUKOCYTES IN BLOOD BY MANUAL COUNT 21.8 15.0 - 45.0 05/17 Specimen Type: BLOOD Comment: Automated Differentia l Performed Ordering Provider: ME LEEROY FISH Report Released Date/Time: Apr 16, 2024 11:04 AM Reporting Lab: [facility] [address] Performing Lab: [facility] [address] [place] [facility] CBC & DIFF MONOCYTES/1 00 LEUKOCYTES IN BLOOD BY AUTOMATED COUNT 5.9 2.0 - 12.0 05/17 Specimen Type: BLOOD Comment: Automated Differentia l Performed Ordering Provider: ME LEEROY FISH Report Released Date/Time: Apr 16, 2024 11:04 AM Reporting Lab: [facility] [address] Performing Lab: [facility] [address] [place] [facility] CBC & DIFF EOSINOPHILS /100 LEUKOCYTES IN BLOOD BY AUTOMATED COUNT 2.9 0.0 - 6.0 05/17 Specimen Type: BLOOD Comment: Automated Differentia l Performed Ordering Provider: ME LEEROY FISH Report Released Date/Time: Apr 16, 2024 11:04 AM Reporting Lab: [facility] [address] Performing Lab: [facility] [address] [place] [facility] CBC & DIFF BASOPHILS/1 00 LEUKOCYTES IN BLOOD BY MANUAL COUNT 0.5 0.0 - 2.0 05/17 Specimen Type: BLOOD Comment: Automated Differentia l Performed Ordering Provider: ME LEEROY FISH Report Released Date/Time: Apr 16, 2024 11:04 AM Reporting Lab: [facility] [address] Performing Lab: [facility] [address] [place] [facility] CBC & DIFF ERYTHROCYTE DISTRIBUTIO N WIDTH [RATIO] BY AUTOMATED COUNT 15.0 11.5 - 14.5 05/17 H Specimen Type: BLOOD Comment: Automated Differentia l Performed Ordering Provider: ME LEEROY FISH Report Released Date/Time: Apr 16, 2024 11:04 AM Reporting Lab: [facility] [address] Performing Lab: [facility] [address] [place] [facility] CBC & DIFF LYMPHOCYTES [#/VOLUME] IN BLOOD BY AUTOMATED COUNT 1.9 1.0 - 4.0 05/17 Specimen Type: BLOOD Comment: Automated Differentia l Performed Ordering Provider: ME LEEROY FISH Report Released Date/Time: Apr 16, 2024 11:04 AM Reporting Lab: [facility] [address] Performing Lab: [facility] [address] [place] [facility] CBC & DIFF MONOCYTES [#/VOLUME] IN BLOOD BY AUTOMATED COUNT 0.5 0.1 - 1.0 05/17 Specimen Type: BLOOD Comment: Automated Differentia l Performed Ordering Provider: ME LEEROY FISH Report Released Date/Time: Apr 16, 2024 11:04 AM Reporting Lab: [facility] [address] Performing Lab: [facility] [address] [place] [facility] CBC & DIFF NEUTROPHILS [#/VOLUME] IN BLOOD BY AUTOMATED COUNT 6.0 2.0 - 7.7 05/17 Specimen Type: BLOOD Comment: Automated Differentia l Performed Ordering Provider: ME LEEROY FISH Report Released Date/Time: Apr 16, 2024 11:04 AM Reporting Lab: [facility] [address] Performing Lab: [facility] [address] [place] [facility] CBC & DIFF EOSINOPHILS [#/VOLUME] IN BLOOD BY AUTOMATED COUNT 0.3 0.0 - 0.5 05/17 Specimen Type: BLOOD Comment: Automated Differentia l Performed Ordering Provider: ME LEEROY FISH Report Released Date/Time: Apr 16, 2024 11:04 AM Reporting Lab: [facility] [address] Performing Lab: [facility] [address] [place] [facility] CBC & DIFF BASOPHILS [#/VOLUME] IN BLOOD BY AUTOMATED COUNT 0.0 0.0 - 0.2 05/17 Specimen Type: BLOOD Comment: Automated Differentia l Performed Ordering Provider: ME LEEROY FISH Report Released Date/Time: Apr 16, 2024 11:04 AM Reporting Lab: [facility] [address] Performing Lab: [facility] [address] [place] [facility] CBC & DIFF IG(META,MYE LO,PRO) 0.3 05/17 Specimen Type: BLOOD Comment: Automated Differentia l Performed Ordering Provider: ME LEEROY FISH Report Released Date/Time: Apr 16, 2024 11:04 AM Reporting Lab: [facility] [address] Performing Lab: [facility] [address] [place] [facility] CBC & DIFF IMMATURE GRANULOCYTE S [PRESENCE] IN BLOOD BY AUTOMATED COUNT 0.0 0.0 - 0.1 05/17 Specimen Type: BLOOD Comment: Automated Differentia l Performed Ordering Provider: ME LEEROY FISH Report Released Date/Time: Apr 16, 2024 11:04 AM Reporting Lab: [facility] [address] Performing Lab: [facility] [address] [place] [facility] BASIC METABOLIC PANEL+MG CREATININE [MASS/VOLUM E] IN SERUM OR PLASMA 1.2 mg/dL 0.7 - 1.2 03/22 Specimen Type: PLASMA No comment entered. Ordering Provider: ME LEEROY FISH Report Released Date/Time: Aug 21, 2022 03:48 PM Reporting Lab: [facility] [address] Performing Lab: [facility] [address] [place] [facility] BASIC METABOLIC PANEL+MG UREA NITROGEN [MASS/VOLUM E] IN SERUM OR PLASMA 15 mg/dL 8 - 26 03/22 Specimen Type: PLASMA No comment entered. Ordering Provider: ME LEEROY FISH Report Released Date/Time: Aug 21, 2022 03:48 PM Reporting Lab: [facility] [address] Performing Lab: [facility] [address] [place] [facility] BASIC METABOLIC PANEL+MG GLUCOSE [MASS/VOLUM E] IN SERUM OR PLASMA 145 mg/dL 70 - 100 03/22 H Specimen Type: PLASMA No comment entered. Ordering Provider: ME LEEROY FISH Report Released Date/Time: Aug 21, 2022 03:48 PM Reporting Lab: [facility] [address] Performing Lab: [facility] [address] [place] [facility] BASIC METABOLIC PANEL+MG SODIUM [MOLES/VOLU ME] IN SERUM OR PLASMA 138 mmol/L 136 - 145 03/22 Specimen Type: PLASMA No comment entered. Ordering Provider: ME LEEROY FISH Report Released Date/Time: Aug 21, 2022 03:48 PM Reporting Lab: [facility] [id number] Performing Lab: [facility] [address] [place] [facility] BASIC METABOLIC PANEL+MG POTASSIUM [MOLES/VOLU ME] IN SERUM OR PLASMA 4.5 mmol/L 3.5 - 5.1 03/22 Specimen Type: PLASMA No comment entered. Ordering Provider: ME LEEROY FISH Report Released Date/Time: Aug 21, 2022 03:48 PM Reporting Lab: [facility] [id number] Performing Lab: [facility] [address] [place] [facility] BASIC METABOLIC PANEL+MG CHLORIDE [MOLES/VOLU ME] IN SERUM OR PLASMA 101 mmol/L 98 - 107 03/22 Specimen Type: PLASMA No comment entered. Ordering Provider: ME LEEROY FISH Report Released Date/Time: Aug 21, 2022 03:48 PM Reporting Lab: [facility] [id number] Performing Lab: [facility] [address] [place] [facility] BASIC METABOLIC PANEL+MG CARBON DIOXIDE, TOTAL [MOLES/VOLU ME] IN SERUM OR PLASMA 27 mmol/L 22 - 29 03/22 Specimen Type: PLASMA No comment entered. Ordering Provider: ME LEEROY FISH Report Released Date/Time: Aug 21, 2022 03:48 PM Reporting Lab: [facility] [address] Performing Lab: [facility] [address] [place] [facility] BASIC METABOLIC PANEL+MG CALCIUM [MASS/VOLUM E] IN SERUM OR PLASMA 10.0 mg/dL 8.4 - 10.2 03/22 Specimen Type: PLASMA No comment entered. Ordering Provider: ME LEEROY FISH Report Released Date/Time: Aug 21, 2022 03:48 PM Reporting Lab: [facility] [address] Performing Lab: [facility] [address] [place] [facility] BASIC METABOLIC PANEL+MG MAGNESIUM [MASS/VOLUM E] IN SERUM OR PLASMA 1.9 mg/dL 1.6 - 2.6 03/22 Specimen Type: PLASMA No comment entered. Ordering Provider: ME LEEROY FISH Report Released Date/Time: Aug 21, 2022 03:48 PM Reporting Lab: [facility] [address] Performing Lab: [facility] [address] [place] [facility] BASIC METABOLIC PANEL+MG ANION GAP IN SERUM OR PLASMA 10 mmol/L 5 - 15 03/22 Specimen Type: PLASMA No comment entered. Ordering Provider: ME LEEROY FISH Report Released Date/Time: Aug 21, 2022 03:48 PM Reporting Lab: [facility] [address] Performing Lab: [facility] [address] [place] [facility] BASIC METABOLIC PANEL+MG GLOMERULAR FILTRATION RATE/1.73 SQ M.PREDICTED [VOLUME RATE/AREA] IN SERUM, PLASMA OR BLOOD BY CREATININE- BASED FORMULA (CKD-EPI 2020) 63 60 03/22 Specimen Type: PLASMA No comment entered. Ordering Provider: ME LEEROY FISH Report Released Date/Time: Aug 21, 2022 03:48 PM Reporting Lab: [facility] [address] Performing Lab: [facility] [address] [place] [facility] HEMOGLOBI N [...] Aug 21, 2022 03:48 PM Reporting Lab: [facility] [address] Performing Lab: [facility] [address] [place] [facility] HEMOGLOBI N [...] December 22, 2021 03:46 PM Reporting Lab: [facility] [address] Performing Lab: [facility] [address] [place] [facility] BASIC METABOLIC PANEL+MG CREATININE [MASS/VOLUM E] IN SERUM OR PLASMA 0.9 mg/dL 0.7 - 1.2 08/18 Specimen Type: PLASMA No comment entered. Ordering Provider: ME LEEROY FISH Report Released Date/Time: December 22, 2021 03:46 PM Reporting Lab: [facility] [address] Performing Lab: [facility] [address] [place] [facility] BASIC METABOLIC PANEL+MG UREA NITROGEN [MASS/VOLUM E] IN SERUM OR PLASMA 12 mg/dL 8 - 26 08/18 Specimen Type: PLASMA No comment entered. Ordering Provider: ME LEEROY FISH Report Released Date/Time: December 22, 2021 03:46 PM Reporting Lab: [facility] [address] Performing Lab: [facility] [address] [place] [facility] BASIC METABOLIC PANEL+MG GLUCOSE [MASS/VOLUM E] IN SERUM OR PLASMA 184 mg/dL 70 - 100 08/18 H Specimen Type: PLASMA No comment entered. Ordering Provider: ME LEEROY FISH Report Released Date/Time: December 22, 2021 03:46 PM Reporting Lab: [facility] [address] Performing Lab: [facility] [address] [place] [facility] BASIC METABOLIC PANEL+MG SODIUM [MOLES/VOLU ME] IN SERUM OR PLASMA 137 mmol/L 136 - 145 08/18 Specimen Type: PLASMA No comment entered. Ordering Provider: ME LEEROY FISH Report Released Date/Time: December 22, 2021 03:46 PM Reporting Lab: [facility] [address] Performing Lab: [facility] [address] [place] [facility] BASIC METABOLIC PANEL+MG POTASSIUM [MOLES/VOLU ME] IN SERUM OR PLASMA 3.9 mmol/L 3.5 - 5.1 08/18 Specimen Type: PLASMA No comment entered. Ordering Provider: ME LEEROY FISH Report Released Date/Time: December 22, 2021 03:46 PM Reporting Lab: [facility] [address] Performing Lab: [facility] [address] [place] [facility] BASIC METABOLIC PANEL+MG CHLORIDE [MOLES/VOLU ME] IN SERUM OR PLASMA 102 mmol/L 98 - 107 08/18 Specimen Type: PLASMA No comment entered. Ordering Provider: ME LEEROY FISH Report Released Date/Time: December 22, 2021 03:46 PM Reporting Lab: [facility] [address] Performing Lab: [facility] [address] [place] [facility] BASIC METABOLIC PANEL+MG CARBON DIOXIDE, TOTAL [MOLES/VOLU ME] IN SERUM OR PLASMA 26 mmol/L 22 - 29 08/18 Specimen Type: PLASMA No comment entered. Ordering Provider: ME LEEROY FISH Report Released Date/Time: December 22, 2021 03:46 PM Reporting Lab: [facility] [address] Performing Lab: [facility] [address] [place] [facility] BASIC METABOLIC PANEL+MG CALCIUM [MASS/VOLUM E] IN SERUM OR PLASMA 9.4 mg/dL 8.4 - 10.2 08/18 Specimen Type: PLASMA No comment entered. Ordering Provider: ME LEEROY FISH Report Released Date/Time: December 22, 2021 03:46 PM Reporting Lab: [facility] [address] Performing Lab: [facility] [address] [place] [facility] BASIC METABOLIC PANEL+MG MAGNESIUM [MASS/VOLUM E] IN SERUM OR PLASMA 1.6 mg/dL 1.6 - 2.6 08/18 Specimen Type: PLASMA No comment entered. Ordering Provider: ME LEEROY FISH Report Released Date/Time: December 22, 2021 03:46 PM Reporting Lab: [facility] [address] Performing Lab: [facility] [address] [facility] BASIC METABOLIC PANEL+MG ANION GAP IN SERUM OR PLASMA 9 mmol/L 5 - 15 08/18 Specimen Type: PLASMA No comment entered. Ordering Provider: ME LEEROY FISH Report Released Date/Time: December 22, 2021 03:46 PM Reporting Lab: [facility] [address] Performing Lab: [facility] [address] [facility] BASIC METABOLIC PANEL+MG GLOMERULAR FILTRATION RATE/1.73 SQ M.PREDICTED [VOLUME RATE/AREA] IN SERUM, PLASMA OR BLOOD BY CREATININE- BASED FORMULA (CKD-EPI) 89 60 08/18 Specimen Type: PLASMA No comment entered. Ordering Provider: ME LEEROY FISH Report Released Date/Time: December 22, 2021 03:46 PM Reporting Lab: [facility] [address] Performing Lab: [facility] [address] [facility] Vital Signs Combined list of inpatient and outpatient Vital Signs from Department of Defense and Veterans Affairs, ranging from 12 months to all on record, depending upon the facility. Vital Sign Value Date Comments Source SYSTOLIC BLOOD PRESSURE 123 05/17/2024 14:50:52 [facility] DIASTOLIC BLOOD PRESSURE 79 05/17/2024 14:50:52 [facility] PULSE OXIMETRY 95 05/17/2024 14:50:52 [facility] WEIGHT 240.8 05/17/2024 14:50:52 [facility] BMI 35kg/m2 05/17/2024 14:50:52 [facility] PAIN 0 05/17/2024 14:50:52 [facility] HEIGHT 70 05/17/2024 14:50:52 [facility] TEMPERATURE 97.8 05/17/2024 14:50:52 [facility] PULSE 113 05/17/2024 14:50:52 [facility] Encounters Combined list of: 1) Encounters from Department of [facility] Affairs facilities going back up to thelast 18 months. 2) Encounters from the Department of Defense facilities going back up to 280 months. Location Location Details Encounter Type Encounter Number Reason For Visit Attending Provider ADM Date DC Date Status Disposition Source [facility] Outpatient Encounter [id number] Diagnos is: ICD-10- CM Z77.29 Contact with and exposur e to other [facility]<br/ > JEANINEJESSICA Poonam 12/27 [facility] Outpatient Encounter [id number] Diagnos is: ICD-10- CM Z77.29 Contact with and exposur e to other [facility]<br/ > JEANINEJESSICA ILDE Poonam 12/27 [facility] PRO PHONE CALL 11-20 MIN [id number] Diagnos is: ICD-10- CM E11.42 Type 2 diabete s mellitu s with diabeti c polyneu ropathy
KARI BRITO 01/06 [facility] Outpatient Encounter [id number] 03/10 [facility] HC PRO PHONE CALL 11-20 MIN [id number] Diagnos is: ICD-10- CM E11.42 Type 2 diabete s mellitu s with diabeti c polyneu ropathy
NAIDLKARI 03/14 [facility] OFFICE O/P EST LOW 20-29 MIN [id number] Diagnos is: ICD-10- CM E11.621 Type 2 diabete s mellitu s with foot ulcer<b r/> Rhiannon FISH 03/22 [place] [facility] [place] [facility] HC PRO PHONE CALL 21-30 MIN [id number] Diagnos is: ICD-10- CM E11.42 Type 2 diabete s mellitu s with diabeti c polyneu ropathy
NAIDL,KARI 04/18 [place] [facility] [place] [facility] HC PRO PHONE CALL 21-30 MIN [id number] Diagnos is: ICD-10- CM E11.42 Type 2 diabete s mellitu s with diabeti c polyneu ropathy
NAIDL,KARI 07/11 [place] [facility] [place] [facility] MTMS BY PHARM ADDL 15 MIN [id number] Diagnos is: ICD-10- CM E11.42 Type 2 diabete s mellitu s with diabeti c polyneu ropathy
NAIDL,KARI 08/29 [place] [facility] [place] [facility] MTMS BY PHARM EST 15 MIN [id number] Diagnos is: ICD-10- CM E11.42 Type 2 diabete s mellitu s with diabeti c polyneu ropathy
SOLEDAD ELLIS 10/10 [place] [facility] [place] [facility] Outpatient Encounter [id number] 10/16 [place] [facility] [place] [facility] MTMS BY PHARM EST 15 MIN [id number] Diagnos is: ICD-10- CM E11.621 Type 2 diabete s mellitu s with foot ulcer<b r/> NAIDL,KARI 11/06 [place] [facility] [place] [facility] MTMS BY PHARM ADDL 15 MIN [id number] Diagnos is: ICD-10- CM E11.42 Type 2 diabete s mellitu s with diabeti c polyneu ropathy
NAIDL,KARI 11/22 [place] [facility] [place] [facility] MTMS BY PHARM ADDL 15 MIN [id number] Diagnos is: ICD-10- CM E11.42 Type 2 diabete s mellitu s with diabeti c polyneu ropathy
NAIDL,KARI 01/17 [place] [facility] [place] [facility] Outpatient Encounter [id number] Diagnos is: ICD-10- CM E11.42 Type 2 diabete s mellitu s with diabeti c polyneu ropathy
DAWNA MILAGRO 01/18 [place] [facility] [place] [facility] QNHP OL DIG ASSMT&MGMT 5-10 [id number] Diagnos is: ICD-10- CM E11.42 Type 2 diabete s mellitu s with diabeti c polyneu ropathy
MOE CHODWHURY 01/18 [place] [facility] [place] [facility] MTMS BY PHARM EST 15 MIN [id number] Diagnos is: ICD-10- CM E11.42 Type 2 diabete s mellitu s with diabeti c polyneu ropathy
NAIDL,KARI 02/21 [place] [facility] [place] [facility] Outpatient Encounter [id number] RORY CAPPS 02/26 [place] [facility] [place] [facility] Outpatient Encounter [id number] 03/14 [place] [facility] [place] [facility] QNHP OL DIG ASSMT&MGMT 11-20 [id number] Diagnos is: ICD-10- CM E11.42 Type 2 diabete s mellitu s with diabeti c polyneu ropathy
NAIDL,KARI 03/27 [place] [facility] [place] [facility] Outpatient Encounter [id number] 04/16 [place] [facility] [place] [facility] MTMS BY PHARM EST 15 MIN [id number] Diagnos is: ICD-10- CM E11.42 Type 2 diabete s mellitu s with diabeti c polyneu ropathy
NAIDL,KARI 04/26 [facility] OFFICE O/P EST MOD 30 MIN [id number] Diagnos is: ICD-10- CM E11.42 Type 2 diabete s mellitu s with diabeti c polyneu ropathy
FISHRhiannon MCFARLANE A 05/17 [facility] IS [facility] MTMS BY PHARM EST 15 MIN [id number] Diagnos is: ICD-10- CM E11.42 Type 2 diabete s mellitu s with diabeti c polyneu ropathy
NAIDL,KARI 06/11 [facility] Social History Combined list of available smoking, tobacco, and other social history from Department of Defense and Veterans Affairs facilities. Social History Type Response Date Comment Sourc e Tobacco smoking status NHIS VA-TOBACCO FORMER USER 05/17/2024 [facility] History of tobacco use ID-TOBACCO QUIT 1 5 YRS OR MORE 05/17/2024 [facility] History of tobacco use ID-TOBACCO QUIT 1 5 YRS OR MORE 08/18/2022 [facility] History of tobacco use ID-TOBACCO QUIT 1 5 YRS OR MORE 05/03/2021 [facility] History of tobacco use ID-TOBACCO FORMER USER 04/21/2020 [facility] History of tobacco use FORMER TOBACCO US E >1Y <7Y 04/03/2018 [facility] History of tobacco use CURRENT TOBACCO USER 03/09/2007 [facility] Plan of Care List of future care activities from Department of Veterans Affairs facilities. Additional future care activities may be listed in the Assessment and Plan section. Date/Time Care Activity Care Activity Detail Facili ty 07/09/2024 AMBULATORY - NONE AMBULATORY - NONE [facility] Advance Directives List of completed, amended, or rescinded Advance Directives on record at Department of Veterans Affairs facilities. An actual copy of the Directive is not included. Date Advance Directive Provider Source 06/22/2021 ADVANCE DIRECTIVE DISCUSSION ALLYSON GRAF [facility] 06/22/20[address] AD[address] [facility] 03/09/2007 [facility]ANCE [facility]
--- OUTSIDE RECORDS SUMMARY | 2024-06-18 11:27 | XMS_ITS | Encounter Summary ---
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 Address [address] [place] [address] Care Team Providers Care Digital Media Strategist Name Role Phone CHARLEE FISH Primary Care Provider [facility] le Insurance Providers: All historical and [...] MEDIC ARE SUPPL EMENT Jul 31, 2018 [id number] [phone] KANE MANTILLA A[place] PATIENT [place] SUPPLEMEN [place] MEDIC ARE SUPPL EMENT Jul 31, 2018 [id number] [phone] RENBRITTNEY,JU ALEX PATIENT [place]) MEDICARE ADVANTAGE MCR (WNR) Jul 31, 2017 [id number] [phone] RENBRITTNEY,KANE ALEX PATIENT [place] MEDICARE SUPPLEMEN [place] MEDIC ARE SUPPL EMENT Jul 31, 2018 [id number] [phone] RENBRITTNEY,KANE ALEX PATIENT [place] SUPP[place] MEDIC ARE SUPPL EMENT Jul 31, 2018 [id number] [phone] KANE MANTILLA PATIENT MEDICARE (WNR) MEDICARE (M) PART A May 31, 2011 PART A [id number] [phone] KANE MANTILLA PATIENT MEDICARE (WNR) MEDICARE (M) PART B May 31, 2011 PART B [id number] [phone] KANE MANTILLA PATIENT Selected Encounter This section includes the information on record at [place] for the Encounter. Date/Time Encounter Type Encounter Description Reason Provider Source Mar 27, 2024 01:53 PM QNHP OL DIG ASSMT&MGMT 11-20 CL[facility]ICAL [facility]Y ICD-10-CM E11.42 Type 2 diabetes mellitus with diabetic polyneuropathy KARI BRITO [facility] Encounter Template Text not used by [place] Assessments - Encounter Diagnoses This section includes the primary and secondary diagnoses documented for the Encounter. Date/Time Primary/Secondary Diagnosis Diagnosis Name Provider Source Mar 27, 2024 01:56 PM PRIMARY Type 2 diabetes mellitus with diabetic polyneuropathy KARI BRITO [facility] Plan of Treatment: Future Appointments (+ 6 months) and Future Tests (+/- 45 days) The Plan of Treatment section includes future care activities for the patient from all [place] [facility]. This section includes future appointments and [...] 2024 09:00 AM AMB[place]ORY - NONE [place] [facility] Apr 12, 2024 11:30 AM AMBULATORY - NONE [place] [facility] Apr 17, 2024 01:30 PM AMB[place]ORY - NONE [place] [facility] Apr 26, 2024 01:30 PM AMB[place]ORY - NONE [place] [facility] May 17, 2024 02:00 PM AMB[place]ORY - NONE [place] [facility] May 17, 2024 02:45 PM [facility] [facility] Jun 11, 2024 11:30 AM AMBUL[place]ORY - NONE [place] [facility] Jul 09, 2024 11:30 AM AM[facility]ORY - NONE [place] [facility] Social History: Smoking Status (Most current) [...] 18, 2022 08:30 AM VA-TOBACCO FORMER USER [facility] Tobacco Use History This section includes a history of the smoking, or tobacco-related health factors, that were collected on or before the date of the Encounter. The data comes from the [place] facility where the Encounter took place. Date/Time Smoking Status/Tobacco Use Comment F acility Aug 18, 2022 08:30 AM VA-TOBACCO QUIT 15 YRS OR MORE [facility] May 03, 2021 08:00 AM VA-TOBACCO FORMER USER [facility] May 03, 2021 08:00 AM VA-TOBACCO QUIT 15 YRS OR MORE [facility] Apr 21, 2020 09:00 AM VA-TOBACCO FORMER USER [facility] Apr 21, 2020 09:00 AM VA-TOBACCO QUIT 15 YRS OR MORE [facility] Apr 03, 2018 03:16 PM FORMER TOBACCO USE >1Y <7Y [facility] Mar 09, 2007 10:41 AM CURRENT TOBACCO USER [facility] Advance Directives: All historical and current [...] comes from all [facility]. Date Advance Directives Provider Source Jun 22, 2021 ADVANCE DIRECTIVE DISCUSSION ALLYSON GRAF [facility] Jun 22, 2021 ADVANCE DIRECTIVE ALLYSON GRAF [facility] Mar 09, 2007 ADVANCE DIRECTIVE [facility] W[facility] Encounter Notes: All associated encounter notes This section contains the clinical notes associated to the Encounter. Date/Time Encounter Note(s) Provider Source Mar 27, 2024 01:53 PM HOISTING ENGINE OPERATOR NOTE: LOCAL TITLE: DIABETES HOISTING ENGINE OPERATOR NOTE STANDARD TITLE: HOISTING ENGINE OPERATOR NOTE DATE OF NOTE: MAR 27, 2024@13:53 ENTRY DATE: MAR 27, 2024@13:53:20 AUTHOR: KARI BRITO COSIGNER: URGENCY: STATUS: COMPLETED BACKGROUND: BETOMIGUELINA is a 78 YO MALE followed by this selling underwriter for DM. A chart review was completed, [...] brief episodes of hypoglycemia noted in the inspector structural bonding. A couple days with more significantly elevated [...] carb intake and/or a referral to our tank carpenter. PLAN: Medications: -Continue present regimen, as above Monitoring: - SMBG prn - Continue Ashley 3 CGM -Using an Training Intelligencehone 8 plus #Disease-Specific Med Rec: Completed today [...] PACT Clinic Signed: 03/27/2024 13:57 KARI BRITO [facility]
--- OUTSIDE RECORDS SUMMARY | 2024-06-18 11:27 | XMS_ITS | Encounter Summary ---
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 [facility] [place] Address [address] [place] [address] Care Team Providers Care Moss Gatherer Name Role Phone CHARLEE FISH Primary Care [...] MEDIC ARE SUPPL EMENT Jul 31, 2018 [id number] [phone] RODNEYBRITTNEYKANE A[place] MED[place] ARE SUPPL EMENT Jul 31, 2018 [id number] [phone] RENBRITTNEYKANE A[place]IENT [place] [facility] (WNR) MEDICARE ADVANTAGE [facility] (WNR) Jul 31, 2017 [id number] [phone] RENBRITTNEY,KANE ALEX PATIENT [place] MED[place] SUPPLEMEN [place] MEDIC ARE SUPPL EMENT Jul 31, 2018 [id number] [phone] RENBRITTNEY,KANE ALEX PATIENT [place]PP[place] MEDIC ARE SUPPL EMENT Jul 31, 2018 [id number] [phone] RENBRITTNEY,KANE ALEX PATIENT MEDICARE (WNR) MEDICARE (M) PART A May 31, 2011 PART A [id number] [phone] KANE PÉREZ PATIENT MEDICARE (WNR) MEDICARE (M) PART B May 31, 2011 PART B [id number] [phone] KANE PÉREZ PATIENT Selected Encounter This section [...] 22, 2021 ADVANCE DIRECTIVE DISCUSSION ALLYSON GRAF [facility] Jun 22, 2021 ADVANCE DIRECTIVE ALLYSON GRAF [facility] Mar 09, 2007 ADVANCE DIRECTIVE [facility]
--- OUTSIDE RECORDS SUMMARY | 2024-06-18 11:28 | XMS_ITS | Data Portability ---
Author Organization [place] [facility], [facility] Address [address] [place] [address] Care Team Providers Care Veterinarian Small Animal Name Role Phone POST, SUE Primary Care [...] [facility], [address], [address], [place], [address], 3 10:05:08 urinalysis, dipstick 2022 023 [facility], [address], [place], [address], 12:03:37 Referral None recorded. Procedures None recorded. Surgeries None recorded. Imaging None recorded. Medication Orders None recorded. Patient TargetsNo targets recorded. Patient Instructions Encounter Date Encounter Id Patient Instructions Last Modified By Organization Details Last Modified Time 09/23/2022 [id number] Patient to call clinic with questions or concerns. Advised patient to increase water intake and to keep 4 week appointment for next catheter change. [email or web address] Not available 09/23/2022 13:22:30 11/04/2022 [id number] Pt has F/U appt with Dr Barrientos in [place] on 11/11/2022 @ 3:10pm to review UDS. [...] ate 3) Sensi tivit y Priscila sis [place] [facility] [place] [facility] [place] [facility] 3 ----- ----- ----- ----- ----- [...] s Desk [facility]. S= Susce ptibl e;I= [...] for provi brandon revie w. Not Available [facility] [address], [place], [address], 11/07/2022 10:05:08 11/05/19 23 11/04/2022 urina lysis , dipst ick Color-Status Straw Not Available [facility] [address], [place], [address], 11/04/2022 12:02:10 11/05/19 23 11/04/2022 urina lysis , dipst ick Clarity-Stat us Slight ly Cloudy Not Available [facility] [address], [place], [address], 11/04/2022 12:02:10 11/05/19 23 11/04/2022 urina lysis , dipst ick Glucose-Stat us 500 Not Available [facility] [address], [place], [address], 11/04/2022 12:02:10 11/05/19 23 11/04/2022 urina lysis , dipst ick Bilirubin-St atus Negati ve Not Available [facility] [address], [place], [address], 11/04/2022 12:02:10 11/05/19 23 11/04/2022 urina lysis , dipst ick Ketones-Stat us Negati ve Not Available [facility] [address], [place], [address], 11/04/2022 12:02:10 11/05/19 23 11/04/2022 urina lysis , dipst ick Sp Putnam-Stat us 1.015 Not Available [facility] [address], [place], [address], 11/04/2022 12:02:10 11/05/19 23 11/04/2022 urina lysis , dipst ick pH-Status 6.5 Not Available [facility] [address], [place], [address], 11/04/2022 12:02:10 11/05/19 23 11/04/2022 urina lysis , dipst ick Protein-Stat us 5.0 Not Available [facility] [address], [place], [address], 11/04/2022 12:02:10 11/05/19 23 11/04/2022 urina lysis , dipst ick Urobilinogen -Status 0.2 Not Available [facility] [address], [place], [address], 11/04/2022 12:02:10 11/05/19 23 11/04/2022 urina lysis , dipst ick Nitrates-Sta tus positi ve Not Available [facility] [address], [place], [address], 11/04/2022 12:02:10 11/05/19 23 11/04/2022 urina lysis , dipst ick Blood-Status Large Not Available [facility] [address], [place], [address], 11/04/2022 12:02:10 11/05/19 23 11/04/2022 urina lysis , dipst ick Leuko-Status Large Not Available [facility] [address], [place], [address], 11/04/2022 12:02:10 11/05/19 23 11/04/2022 urina lysis , dipst ick Specimen Type Cathet erized Not Available [facility] [address], [place], [address], 11/04/2022 12:02:10 11/05/19 23 11/04/2022 urina lysis , dipst ick Performed by LKchuckve n1 Not Available [facility] [address], [place], [address], 11/04/2022 12:02:10 Result Notes None recorded. Problems Name Problem SNOMED Code Status Onset Date Resolution Date Notes Provider Name and Address Organization Details Recorded Time Retention of urine [id number] [facility] 13:15[facility]43 Problem Notes None recorded. Procedures Surgical History Date Name Laterality Status Provider Name and Address Organization Details Recorded Time 3 Fill and Pull/Voiding Trial/TOV completed Jenna Harris [facility] 12/09/2022 11:59:45 3 Urodynamic Studies completed Deyanira Woods [facility] 11/04/2022 12:19:38 3 Gordon Catheter Insertion completed Deyanira Woods [facility] 11/04/2022 12:21:21 3 Urethral Catheter Change completed Jenna Harris [facility] 10/21/2022 13:18:32 3 Urethral Catheter Change completed Nenita Flores [facility] 09/23/2022 13:21:12 3 Gordon Catheter Insertion completed Roula Beltran [facility] 08/03/2022 11:16:51 3 Fill and Pull/Voiding Trial/TOV completed Roula Beltran [facility] 08/03/2022 11:16:41 2 Cystoscopy- male completed Kristopher Barrientos MD, PHD [address] [place] [address],[address], [address], [facility] 06/30/2022 09:37:30 2 Urethral Catheter Change completed Carlos Mix [facility] 06/30/2022 09:49:15 2 Gordon Catheter Insertion completed Juanito Josue [facility] 06/16/2022 15:03:22 2 Fill and Pull/Voiding Trial/TOV completed Roula Tony PA-C [address] [place] [address],[address], [address], [facility] 06/16/2022 18:06:50 Cataract Surgery [...] Updated DateTime 11/11/2022 180.34 cm 30 kg/m2 64717.36 g Amanda Molina [facility] 11/11/2022 [...] Diagnosis/Indication Diagnosis SNOMED-CT Code Diagnosis ICD10 Code [id number] Roula Tony PA-C [facility] [address] [place] [address] 06/16/2022 11:30:09 06/20/2022 08:36:10 Retention of urine 558144686 R33.9 Benign pro static hyperplasia with outflow obstruction 190072841 N40.1 [id number] Kristopher green MD, PHD [facility] [address] [place] [address] 06/30/2022 08:46:23 07/04/2022 11:29:58 Retention of urine 044273169 R33.9 Benign pro static hyperplasia with outflow obstruction 051200258 N40.1 [id number] Roula Ruby [facility] [address] [place] [address] 08/03/2022 10:27:16 08/05/2022 11:54:14 Retention of urine 809116599 R33.9 [id number] Nenitaaranza Flores [facility] [address] [place] [address] 09/23/2022 10:30:04 09/26/2022 14:37:37 [id number] Kristopher green MD, PHD [facility] [address] [place] [address] 11/04/2022 10:41:00 11/10/2022 13:37:32 Benign prostatic hyperplasia with outflow obstruction 444023375 N40.1 Retention of urine 30043 4002 R33.9 Microscopic hematuria 19 7923825 R31.29 [id number] Jenna Harris [facility] [address] [place] [address] 10/21/2022 11:27:55 10/24/2022 11:49:09 Retention of urine 826180884 R33.9 [id number] Krisotpher green MD, PHD [facility] [address] [place] [address] 11/11/2022 16:25:28 11/17/2022 17:02:38 Retention of urine 769290074 R33.9 Benign pro static hyperplasia with outflow obstruction 674339898 N40.1 [id number] Jenna Harris [facility] [address] [place] [address] 12/09/2022 10:56:01 12/12/2022 15:10:14 Retention of urine 642557334 R33.9 Health Concerns Section Related Observation LastModified by Organization Detai ls LastModified Time None Recorded Concern Status LastModified by Organization Details LastModified Time None Recorded Advance Directives Directive None Recorded Payers Encounter Date Sequence Insurance Name Policy Number Policy Molina Covered Member ID Molina Member ID Guarantor Name 09/23/2022 1 [place] [employer] Tom B Renaux [id number] Tom B Renaux 09/23/2022 2 [place] [id number] Tom B Renaux [id number] Tom B Renaux 10/21/2022 1 [place] [employer] Tom B Renaux [id number] Tom B Renaux 10/21/2022 2 [place] [id number] Tom B Renaux [id number] Tom B Renaux 11/04/2022 1 [place] [employer] Tom B Renaux [id number] Tom B Renaux 11/04/2022 2 [place] [id number] Tom B Renaux [id number] Tom B Renaux 11/11/2022 1 [place] [employer] Tom B Renaux [id number] Tom B Renaux 11/11/2022 2 [place] [id number] Tom B Renaux [id number] Tom B Renaux 12/09/2022 1 [place] [facility] G[employer]MENT SERVICES [employer] Tom B Renaux [id number] Tom B Renaux 12/09/2022 2 [place] [id number] Tom B Renaux [id number] Tom B Renaux Notes Date Note Type Note Provider Name and Address Organization Details Recorded Time 09/23/2022 text/html 77 yo male prese nts for catheter change. Pt denies signs/symptoms of a UTI. His is present at today's appointment. She is requesting a TOV today. Advised that patients plan of care states a catheter change and to have UDS done in October. Advised that patient needs to return to clinic in 4 weeks for next catheter change. Nenita song [place] [facility] 09/23/2022 13:22:32 10/21/2022 text/html Pt here for cath eter change OLMAN [facility] - [facility] 10/21/2022 13:21:54 11/11/2022 text/html 77M with urinary retention. [facility]ization at [facility] [...] EMG not relaxing with permission to void Labs:05/21/22 UA 3-5 RBC, 11-25 WBC, mod leuks, neg nit, rare bacteria; no UCx performed P rior to conducting our telephone visit, the patient [...] coordinate their care. Kristopher Barrientos MD, PHD [address] [place] [address],[address], [place], [address], [facility] 11/11/2022 17:49:57 12/09/2022 text/html Pt of Dr PALMER, her e for TOV recommended at 11/11/22 visit Jenna song [facility] 12/09/2022 12:43:22
--- OUTSIDE RECORDS SUMMARY | 2024-06-18 11:28 | XMS_ITS | Clinical Summary ---
Author Organization [facility] Address [place], [place] [address] Care Team Providers Care Organic Search Lead Name Role Phone Post, Dave Velazquez MD Primary Care Provider Moshe Enciso MD Unavailable Arie Justin MD Unavailable [phone] [facility], Met Unavailable Murali Hoover DPM Unavailable [phone] Allergies No known active allergies Medications [...] diabetes, hypertension and/or CHF. Please look for [facility] Care Goal Contract in Chart Review/ Letters and support this effort. Please direct questions to Care Guide Pamella Brennan Phone number [phone]. Alcohol abuse 06/02/2010 03/26/2019 Overview (06/02/2010): Sober [...] 105 11/03/2023 11:13 AM CDT Temperature 36.7 C (98 F) 06/29/2022 8:43 AM SHOW HOST/HOSTESS Respiratory Rate 18 06/29/2022 8:43 AM SHOW HOST/HOSTESS Oxygen Saturation 96% 07/21/2023 1:34 PM SHOW HOST/HOSTESS Inhaled Oxygen Concentration - - Weight 107 kg (236 lb) 11/03/2023 11:13 AM CDT w ith shoes Height 180.3 cm (5' 10.98) 07/21/2023 1:[address] Body Mass Index 32.93 07/21/2023 1:34 PM SHOW HOST/HOSTESS Plan of Treatment Health Maintenance Due Date [...] 07/16/2020, 04/21/2020 Medical Devices Implanted Type Area Supervisor Wheel Shop Device Identifier Shelf Expiration Date Model / Serial / Lot [id number] - [id number] Implanted:Qty: 1 on 09/20/2021 at [facility] Right: Foot [employer] AR-8725-4 4H / / Description:COMPRESSION FT S CREWS CANNULATED, 2.5 MICRO 44MM LOAD 4 7 [id number] Kristina-1530p - [id number] Implanted:Qty: 1 on 09/20/2021 at [facility] Right: Foot [employer] 03/30/2025 AR-1530P- CP / / [id number] Description:FOREFOOT INTERNA L BRACE IMPLANT SYSTEM, PEEK Screw 4.35a41fj Bio Compositetenodesis Disp Rug Touch Up Painter Pk - [id number] Implanted:Qty: 1 on 09/20/2021 at [facility] Right: Foot [employer] 08/30/2022 AR-1547CD S / / [id number] Ancr Sut 1.3mm Dx Fibertak Suturetape 2 Ndl 26.2mm 08/01 [facility] - [id number] Implanted:Qty: 1 on 09/20/2021 at [facility] Right: Foot [employer] 06/29/2026 AR-8990ST / / [id number] Explanted Type Area Supervisor Wheel Shop Device Identifier Shelf Expiration Date Model / Serial / Lot Wire Kirs .[id number] Smooth6/Pk Depuy/Héctor - [id number] Explanted:Qty: 1 on 09/20/2021 at [facility] Right: Foot [employer] / / Description:LOAD 4 8 [id number] [facility]8737-40 - [id number] Explanted:Qty: 1 on 09/20/2021 at [facility] Right: Foot [employer] AR-8737-40 / / Description:2.5 MICRO COMPRE SSION FT DRILLS AND DISPOSABLES, GUIDEWIRE W TROCAR TIP, THREADED, 0.34 IN (.86MM) LOAD 4 7 [id number] Procedures Procedure Name Priority Date/Time Associated Diagnosis [...] Narrative 05/10/2022 7:58 PM CDT For Patients: As a result of the Cures Act, medical imaging exams and procedure reports are released immediately into your electronic medical record. You may view this report before your referring provider. If you have questions, please contact your health [...] Documents on File Type Date Recorded Patient Admissions Advisor Expl anation Healthcare Directive 05/21/2021 3:50 PM [...] Code Status Discussion: Reviewed Preferences Care Teams Organic Search Lead Relationship Specialty Start Date End Date Post, Dave Velazquez MD PCP - General 06/02/10 Moshe Enciso MD [address] [place] [address] Endocrinology Endocrinology 01/04/18 [place] [address] [place] [address] Surgery - Ophthalmology 03/22/18 [facility], [facility] [address] [place] [address] 06/08/21 Murali Hoover DPM [address] [place] [address] Surgery - Podiatric 01/03/23
--- OUTSIDE RECORDS SUMMARY | 2024-06-18 11:28 | XMS_ITS | Encounter Summary ---
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 [place] [facility] [place] Address [address] [place] [address] Care Team Providers Care Enterprise Resource Analyst Name Role Phone CHARLEE FISH Primary [...] MEDIC ARE SUPPL EMENT Jul 31, 2018 [id number] [phone] RENKANE LUGO ALEX PATIENT [place] MED[place] SUPPLEMEN [place]OT MEDIC ARE SUPPL EMENT Jul 31, 2018 [id number] [phone] RENAUX,JU ALEX PATIENT [place] [facility] (WNR) MEDICARE ADVANTAGE [facility] (WNR) Jul 31, 2017 [id number] [phone] RENAUX,JU ALEX PATIENT [place] MED[place]ARE SUPPLEMEN SCOT MEDIC ARE SUPPL EMENT Jul 31, 2018 [id number] [phone] RENAUX,JU A[place] SUPPLEMEN [place]OT MEDIC ARE SUPPL EMENT Jul 31, 2018 [id number] [phone] RENAUX,JU ALEX PATIENT MEDICARE ([place]) [place] PART A May 31, 2011 PART A [id number] [phone] KANE PÉREZ PATIENT MEDICARE ([place]) [place]) PART B May 31, 2011 PART B [id number] [phone] KANE PÉREZ PATIENT Selected Encounter This section includes the information on record at [place] for the Encounter. Date/Time Encounter Type Encounter Description Reason Pro vider Source Apr 16, 2024 10:27 AM Outpatient Encounter TELEPHONE TRIAGE IHE Encounter Template Text not used by [place] Plan of Treatment: Future Appointments (+ 6 months) and Future Tests (+/- 45 days) The Plan of Treatment section includes future care activities for the patient from all [place] [facility]. This section includes future appointments [...] 2024 01:30 PM AMBULATORY - NONE [facility] Apr 26, 2024 01:30 PM AMBULATORY - NONE [facility] May 17, 2024 02:00 PM AMBULATORY - NONE [facility] May 17, 2024 02:45 PM AMBULATORY - MEDICINE [facility] Jun 11, 2024 11:30 AM AMBULATORY - NONE [facility] Jul 09, 2024 11:30 AM [facility] Social History: Smoking Status (Most [...] 18, 2022 08:30 AM VA-TOBACCO FORMER USER [facility] Tobacco Use History This section includes a history of the smoking, or tobacco-related health factors, that were collected on or before the date of the Encounter. The data comes from the [place] facility where the Encounter took place. Date/Time Smoking Status/Tobacco Use Comment Darline soriano Aug 18, 2022 08:30 AM VA-TOBACCO QUIT 15 YRS OR MORE [facility] May 03, 2021 08:00 AM VA-TOBACCO FORMER USER [facility] May 03, 2021 08:00 AM VA-TOBACCO QUIT 15 YRS OR MORE [facility] Apr 21, 2020 09:00 AM VA-TOBACCO FORMER USER [facility] Apr 21, 2020 09:00 AM VA-TOBACCO QUIT 15 YRS OR MORE [facility] Apr 03, 2018 03:16 PM FORMER TOBACCO USE >1Y <7Y [facility] Mar 09, 2007 10:41 AM CURRENT TOBACCO USER [facility] Advance Directives: All historical and current Section Date Range: From patient's date of to the date document was created. This section includes ALL of a patient's completed or amended [place] Advance and Rescinded Directives. The entries below indicate that a directive exists for the patient, but an actual copy is not included with this document. The data comes from all [place] facilities. Date Advance Directives Provider Source Jun 22, 2021 ADVANCE DIRECTIVE DISCUSSION ALLYSON GRAF [facility] Jun 22, 2021 ADVANCE DIRECTIVE ALLYSON GRAF [facility] Mar 09, 2007 ADVANCE DIRECTIVE SOLEDAD WOLFF [facility] Encounter Notes: All associated encounter notes [...] Call. Please contact at the following number: [phone] Other: is inquiring if he needs lab work for annual appt on 05/17, requested a call back at the number above This note was created by a 3 [facility] ARABELLA/ROSHNI. Please do not alert this sql report writer by adding as a signer for future communications. Alerts are not monitored by this user, please reach out to [facility] Leadership instead if indicated. /toby/ Nirav GARNER [facility] Signed: 04/16/2024 10:28 Receipt Acknowledged By: 04/16/2024 10:55 /es/ DOROTHY YOO, CHETAN REGISTERED NURSE NIRAV RODRIGUEZ [facility]
--- OUTSIDE RECORDS SUMMARY | 2024-06-18 11:28 | XMS_ITS | Encounter Summary ---
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 [place] [facility] [place] [facility] [place] Address [address] [place] [address] Care Team Providers Care Shake Out Worker Name Role Phone CHARLEE FISH Primary Care [...] MEDIC ARE SUPPL EMENT Jul 31, 2018 [id number] RENKANE LUGO ALEX PATIENT [place] MED[place] SUPP[place] MEDIC ARE SUPPL EMENT Jul 31, 2018 [id number] [phone] RENBRITTNEY,JU ALEX PATIENT [place] [facility] (WNR) MEDICARE ADVANTAGE [facility] (WNR) Jul 31, 2017 [id number] [phone] RENAUX,JU ALEX PATIENT [place] MEDICARE SUPPLEMEN [place]OT MEDIC ARE SUPPL EMENT Jul 31, 2018 [id number] RENAUX,JU ALEX PAT[place] SUPP[place] MEDIC ARE SUPPL EMENT Jul 31, 2018 [id number] [phone] RENAUX,JU ALEX PATIENT MEDICARE (WNR) MEDICARE (M) PART A May 31, 2011 PART A [id number] [phone] KANE MANTILLA PATIENT MEDICARE (WNR) MEDICARE (M) PART B May 31, 2011 PART B [id number] [phone] KANE MANTILLA PATIENT Selected Encounter This section includes the information on record at [place] for the Encounter. Date/Time Encounter Type Encounter Description Reason Provider Source Jun 11, 2024 11:30 AM MTMS BY PHARM ERICK 15 MIN TELEPHONE PRIMARY CARE ICD-10-CM E11.42 Type 2 diabetes mellitus with diabetic polyneuropathy KARI BRITO [facility] Encounter Template Text not used by [place] Assessments - Encounter Diagnoses This section includes the primary and secondary diagnoses documented for the Encounter. Date/Time Primary/Secondary Diagnosis Diagnosis Name Provider Source Jun 11, 2024 11:30 AM PRIMARY Type 2 diabetes mellitus with diabetic polyneuropathy KARI BRITO [facility] Plan of Treatment: Future Appointments (+ 6 months) and Future Tests (+/- 45 days) The Plan of Treatment section includes future care activities for the patient from all [place] treatmentfacilities. This section includes future appointments and future orders which are active, pending or scheduled. Future Appointments This section includes appointments that were scheduled to occur 6 months from the date of the Encounter, up to a maximum of 20 appointments. The data comes from all [place] treatment facilities. Appointment Date/Time Appointment Type Appointme nt Facility Name Jul 09, 2024 11:30 AM AMBULATORY - NONE [facility] Lab Results: +/- 30 days of the encounter This section includes the Chemistry and Hematology Lab Results on record with [place] for the patient. Radiology Reports and Pathology Reports are provided separately, in subsequent sections. Lab Results This section contains the Chemistry/Hematology Results that were resulted 30 days before or 30 daysafter the date of the Encounter. Date/Time Source Result Type Result - Unit Interpretation Reference Range Comment May 17, 2024 01:55 PM [facility] HEMOGLOBIN A1C Specimen Type: BLOOD Comment: Values [...] Apr 16, 2024 11:04 AM Reporting Lab: [facility] [id number] Performing Lab: [facility] [id number] HEMOGLOBIN A1C 8.4 H 4.0-6.0 May 17, 2024 01:55 PM [facility] BASIC METABOLIC PANEL+MG Specimen Type: PLASMA No comment entered. Ordering Provider: SOSA FISH Report Released Date/Time: Apr 16, 2024 11:04 AM Reporting Lab: [facility] [id number] Performing Lab: [facility] [id number] CREATININE 1.2 mg/dL 0.7-1.2 UREA NITROGEN 22 mg/dL 8-26 GLUCOSE 187 mg/dL H 70-100 SODIUM 138 mmol/L 136-145 POTASSIUM 4.5 mmol/L 3.5-5.1 CHLORIDE 102 mmol/L 98-107 CO2 25 mmol/L 22-29 CALCIUM 9.7 mg/dL 8.4-10.2 MAGNESIUM 1.7 mg/dL 1.6-2.6 ANION GAP 11 mmol/L 5-15 .CREAT EGFR(CKD-EPI ) 62 >60 May 17, 2024 01:55 PM [facility] CBC & DIFF Specimen Type: BLOOD Comment: Automated Differential Performed Ordering Provider: SOSA FISH Report Released Date/Time: Apr 16, 2024 11:04 AM Reporting Lab: [facility] [id number] Performing Lab: [facility] [id number] WBC 8.8 4.0-11.0 RBC 4.74 4.60-6.20 HGB [...] and tobacco- related health factors from the [place] facility where the Encounter took place. Current Smoking Status This section includes the most current smoking, or tobacco-related health factor, from the [place] facility where the Encounter took place. Date/Time Current Smoking Status Comment Facil ity May 17, 2024 02:45 PM VA-TOBACCO FORMER USER [facility] Tobacco Use History This section includes a history of the smoking, or tobacco-related health factors, that were collected on or before the date of the Encounter. The data comes from the [place] facility where the Encounter took place. Date/Time Smoking Status/Tobacco Use Comment F acility May 17, 2024 02:45 PM VA-TOBACCO QUIT 15 YRS OR MORE [facility] Aug 18, 2022 08:30 AM VA-TOBACCO FORMER USER [facility] Aug 18, 2022 08:30 AM VA-TOBACCO QUIT 15 YRS OR MORE [facility] May 03, 2021 08:00 AM VA-TOBACCO FORMER USER [facility] May 03, 2021 08:00 AM VA-TOBACCO QUIT 15 YRS OR MORE [facility] Apr 21, 2020 09:00 AM VA-TOBACCO FORMER USER [facility] Apr 21, 2020 09:00 AM VA-TOBACCO QUIT 15 YRS OR MORE [facility] Apr 03, 2018 03:16 PM FORMER TOBACCO USE >1Y <7Y [facility] Mar 09, 2007 10:41 AM CURRENT TOBACCO USER [facility] Advance Directives: All historical and current Section Date Range: From patient's date of to the date document was created. This section includes ALL of a patient's completed or amended [place] Advance and Rescinded Directives. The entries below indicate that a directive exists for the patient, but an actual copy is not included with this document. The data comes from all [place] facilities. Date Advance Directives Provider Source Jun 22, 2021 ADVANCE DIRECTIVE DISCUSSION GRAFALLYSON BENOIT [facility] Jun 22, 2021 ADVANCE DIRECTIVE TREMAINE GRAFMAR Rhiannon KOCH [facility] Mar 09, 2007 ADVANCE DIRECTIVE SOLEDAD WOLFF [facility] Encounter Notes: All associated encounter notes This section contains the clinical notes associated to the Encounter. Date/Time Encounter Note(s) Provider Source Jun 11, 2024 11:19 AM RN OBGYN NOTE: LOCAL TITLE: DIABETES RN OBGYN NOTE STANDARD TITLE: RN OBGYN NOTE DATE OF NOTE: JUN 11, 2024@11:19 ENTRY DATE: JUN 11, 2024@11:20 AUTHOR: KARI BRITO COSIGNER: URGENCY: STATUS: COMPLETED BACKGROUND: BETOMIGUELINA CHRISTIAN is a 79 YO MALE contacted by phone for medication management, mainly for DM. Active problems - Computerized Problem List is the source for the followin. Foot Pain - left 5th metatarsal fracture 2. Diabetes mellitus (SNOMED CT 47075842) 3. Hyperlipidemia (SNOMED CT 66228106) 4. Depressive Disorder NOS * 5. Tobacco user (SNOMED CT 237395785) 6. Personal History of Alcoholism 7. Other Iatrogenic Hypotension 8. Hyperuricemia 9. Osteopenia 10. History of amputation of lesser toe 11. Diabetic neuropathy 12. Exposure to potentially hazardous substance ([facility] [id number]) [facility] Documentation Initiative SUBJECTIVE: In brief, [...] sandwich or grapes/cheese, beef stew Evening meal: sports administrator -- sandwich or fruit/cheese Snacks: snickers, Allie [...] 14:50 240.8(109.23)[35*] 03/22/2023 14:13 221(100.24)[31*] 08/18/2022 08:26 Nuhpxzvuopt87/23/2023 14:13 221(100.24)[31*] 08/18/2022 08:26 Unavailable 12/22/2021 13:51 [...] - Continue Ashley 3 CGM -Using an [employer] -Provided the [employer] support number again today for any issues [...] Pharmacist Practitioner-[facility] Signed: 06/11/2024 11:58 KAIR BRITO [facility]
--- OUTSIDE RECORDS SUMMARY | 2024-06-18 11:28 | XMS_ITS | Referral Summary ---
Author Organization [place] Address [address] [place] [address] Care Team Providers Care Horse Wrangler Name Role Phone Post, Dave Wakefield MD Primary Care Provider Medications sulfamethoxazole -trimethoprim (BACTRIM DS/SEPTRA DS) [phone] [...] on file Legal Sex Male 3:10 AM MORTGAGE BROKER Gender Identity Not on file Sexual Orientation Not on file Last Filed Vital Signs Vital Sign Reading Time Taken Comments Blood Pressure 148/85 06/26/2018 5:58 PM MORTGAGE BROKER Pulse 90 06/26/2018 5:58 PM MORTGAGE BROKER Temperature 36.6 C (97.8 F) 06/26/2018 5:58 PM MORTGAGE BROKER Respiratory Rate 18 06/26/2018 5:58 PM MORTGAGE BROKER Oxygen Saturation 95% 06/26/2018 7:00 PM MORTGAGE BROKER Inhaled Oxygen Concentration - - Weight 112 kg (247 lb) 06/26/2018 5:58 PM MORTGAGE BROKER Height 180.3 cm (5' 11) 06/26/2018 5:58 PM MORTGAGE BROKER Body Mass Index 34.45 06/26/2018 5:58 PM MORTGAGE BROKER Plan of Treatment Not on file Insurance [place] Care Teams Horse Wrangler Relationship Specialty Start Date End Date Post, Dave Wakefield MD PCP - General Internal Medicine 06/26/18
--- OUTSIDE RECORDS SUMMARY | 2024-06-18 11:28 | XMS_ITS | Encounter Summary ---
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 [place] [facility] [place] [facility] [place] Address [address] [place] [address] Care Team Providers Care Jumpbasting Collar Baster Name Role Phone CHARLEE FISH Primary Care [...] MEDIC ARE SUPPL EMENT Jul 31, 2018 [id number] RENKANE LUGO ALEX PATIENT [place] SUPPLE[place] MEDIC ARE SUPPL EMENT Jul 31, 2018 [id number] [phone] RENBRITTNEY,JU A[place] [facility] (WNR) MEDICARE ADVANTAGE [facility] (WNR) Jul 31, 2017 [id number] [phone] RENAUX,JU ALEX PATIENT [place] SUPPLEMEN [place]OT MEDIC ARE SUPPL EMENT Jul 31, 2018 [id number] RENAUX,JU ALEX [place] SUPPLEMEN [place] MEDIC ARE SUPPL EMENT Jul 31, 2018 [id number] [phone] RENAUX,JU ALEX PATIENT MEDICARE (WNR) MEDICARE (M) PART A May 31, 2011 PART A [id number] [phone] KANE MANTILLA PATIENT MEDICARE (WNR) MEDICARE (M) PART B May 31, 2011 PART B [id number] KANE MANTILLA PATIENT Selected Encounter This section includes the information on record at [place] for the Encounter. Date/Time Encounter Type Encounter Description Reason Provider Source Apr 26, 2024 01:30 PM MTMS BY PHARM ERICK 15 MIN TELEPHONE PRIMARY CARE ICD-10-CM E11.42 Type 2 diabetes mellitus with diabetic polyneuropathy KARI BRITO [facility] Encounter Template Text not used by [place] Assessments - Encounter Diagnoses This section includes the primary and secondary diagnoses documented for the Encounter. Date/Time Primary/Secondary Diagnosis Diagnosis Name Provider Source Apr 26, 2024 01:30 PM PRIMARY Type 2 diabetes mellitus with diabetic polyneuropathy KARI BRITO [facility] Plan of Treatment: Future Appointments [...] 17, 2024 02:00 PM AMBULATORY - NONE [facility] May 17, 2024 02:45 PM AMBULATORY - MEDICINE [facility] Jun 11, 2024 11:30 AM AMBULATORY - NONE [facility] Jul 09, 2024 11:30 AM AMBULATORY - NONE [facility] Lab Results: +/- 30 days of the encounter This section includes the Chemistry and Hematology Lab Results on record with [place] for the patient. Radiology Reports and Pathology Reports are provided separately, in subsequent sections. Lab Results This section contains the Chemistry/Hematology Results that were resulted 30 days before or 30 daysafter the date of the Encounter. Date/Time Source Result Type Result - Unit Interpretation Reference Range Comment May 17, 2024 01:55 PM [facility] HEMOGLOBIN A1C Specimen Type: BLOOD Comment: [...] 2024 11:04 AM Reporting Lab: [facility] [id number] Performing Lab: [facility] [id number] HEMOGLOBIN A1C 8.4 H 4.0-6.0 May 17, 2024 01:55 PM [facility] BASIC METABOLIC PANEL+MG Specimen Type: PLASMA No comment entered. Ordering Provider: SOSA FISH Report Released Date/Time: Apr 16, 2024 11:04 AM Reporting Lab: [facility] [id number] Performing Lab: [facility] [address] CREATININE 1.2 mg/dL 0.7-1.2 UREA NITROGEN 22 mg/dL 8-26 GLUCOSE 187 mg/dL H 70-100 SODIUM 138 mmol/L 136-145 POTASSIUM 4.5 mmol/L 3.5-5.1 CHLORIDE 102 mmol/L 98-107 CO2 25 mmol/L 22-29 CALCIUM 9.7 mg/dL 8.4-10.2 MAGNESIUM 1.7 mg/dL 1.6-2.6 ANION GAP 11 mmol/L 5-15 .CREAT EGFR(CKD-EPI ) 62 >60 May 17, 2024 01:55 PM [facility] CBC & DIFF Specimen Type: BLOOD Comment: Automated Differential Performed Ordering Provider: SOSA FISH Report Released Date/Time: Apr 16, 2024 11:04 AM Reporting Lab: [facility] [id number] Performing Lab: [facility] [address] WBC 8.8 4.0-11.0 RBC 4.74 4.60-6.20 HGB [...] AM VA-TOBACCO QUIT 15 YRS OR MORE [facility] Tobacco Use History This section includes a history of the smoking, or tobacco-related health factors, that were collected on or before the date of the Encounter. The data comes from the [place] facility where the Encounter took place. Date/Time Smoking Status/Tobacco Use Comment F acility Aug 18, 2022 08:30 AM VA-TOBACCO QUIT 15 YRS OR MORE [facility] May 03, 2021 08:00 AM VA-TOBACCO FORMER USER [facility] May 03, 2021 08:00 AM VA-TOBACCO QUIT 15 YRS OR MORE [facility] Apr 21, 2020 09:00 AM VA-TOBACCO FORMER USER [facility] Apr 21, 2020 09:00 AM VA-TOBACCO QUIT 15 YRS OR MORE [facility] Apr 03, 2018 03:16 PM FORMER TOBACCO USE >1Y <7Y [facility] Mar 09, 2007 10:41 AM CURRENT TOBACCO USER [facility] Advance Directives: All historical and current Section Date Range: From patient's date of to the date document was created. This section includes ALL of a patient's completed or amended [place] Advance and Rescinded Directives. The entries below indicate that a directive exists for the patient, but an actual copy is not included with this document. The data comes from all [place] facilities. Date Advance Directives Provider Source Jun 22, 2021 ADVANCE DIRECTIVE DISCUSSION ALLYSON GRAF [facility] Jun 22, 2021 ADVANCE DIRECTIVE ALLYSON GRAF [facility] Mar 09, 2007 ADVANCE DIRECTIVE [facility]EDAD [facility] Encounter Notes: All associated encounter notes This section contains the clinical notes associated to the Encounter. Date/Time Encounter Note(s) Provider Source Apr 26, 2024 01:53 PM BUILD TECHNICIAN NOTE: LOCAL TITLE: DIABETES BUILD TECHNICIAN NOTE STANDARD TITLE: BUILD TECHNICIAN NOTE DATE OF NOTE: APR 26, 2024@13:53 ENTRY DATE: APR 26, 2024@13:53:51 AUTHOR: KARI BRITO COSIGNER: URGENCY: STATUS: COMPLETED [...] sandwich or grapes/cheese, beef stew Evening meal: reservoir caretaker -- sandwich or fruit/cheese Snacks: snickers, Duff kisses, ice cream, cookies on occasion. other [...] to Ashley 3 plus sensors -Using an iphone 8 plus #Disease-Specific Med [...] avoid [facility]VC-only has a cellphone /toby/ KARI BRITO, PHARM D, BCPS Clinical Pharmacist Practitioner-[facility] Signed: 04/26/2024 14:18 KARI BRITO [facility]
--- OUTSIDE RECORDS SUMMARY | 2024-06-18 11:28 | XMS_ITS | Clinical Summary ---
Author Organization [place] Address [address] [place] [address] Care Team Providers Care Kitchen Hand Name Role Phone Post, Dave Wakefield MD Primary Care Provider [phone] Medications sulfamethoxazole -trimethoprim (BACTRIM DS/SEPTRA DS) [phone] [...] on file Legal Sex Male 3:10 AM UX DEVELOPER Gender Identity Not on file Sexual Orientation Not on file Last Filed Vital Signs Vital Sign Reading Time Taken Comments Blood Pressure 148/85 06/26/2018 5:58 PM UX DEVELOPER Pulse 90 06/26/2018 5:58 PM UX DEVELOPER Temperature 36.6 C (97.8 F) 06/26/2018 5:58 PM UX DEVELOPER Respiratory Rate 18 06/26/2018 5:58 PM UX DEVELOPER Oxygen Saturation 95% 06/26/2018 7:00 PM UX DEVELOPER Inhaled Oxygen Concentration - - Weight 112 kg (247 lb) 06/26/2018 5:58 PM UX DEVELOPER Height 180.3 cm (5' 11) 06/26/2018 5:58 PM UX DEVELOPER Body Mass Index 34.45 06/26/2018 5:58 PM UX DEVELOPER Plan of Treatment Not on file Insurance MEDICARE BC OF [place] MEDICARE SUPPLEMENT Care Teams Kitchen Hand Relationship Specialty Start Date End Date Post, Dave Wakefield MD PCP - General Internal Medicine 06/26/18
--- OUTSIDE RECORDS SUMMARY | 2024-06-18 11:28 | XMS_ITS | Encounter Summary ---
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 [place] [facility] [place] Address [address] [place] [address] Care Team Providers Care Capacitor Tester Name Role Phone CHARLEE FISH Primary Care [...] MEDIC ARE SUPPL EMENT Jul 31, 2018 [id number] RODNEYBRITTNEYKANE ALEX PATIENT [place] SUPPLE[place] MEDIC ARE SUPPL EMENT Jul 31, 2018 [id number] [phone] RENBRITTNEYKANE [place]LEX [place] [facility] (WNR) MEDICARE ADVANTAGE [facility] (WNR) Jul 31, 2017 [id number] [phone] RENBRITTNEY,KANE ALEX PATIENT [place] SUPPLE[place] MEDIC ARE SUPPL EMENT Jul 31, 2018 [id number] RENBRITTNEY,KANE ALEX PATIENT [place] MEDIC ARE SUPPL EMENT Jul 31, 2018 [id number] [phone] RENBRITTNEY,KANE ALEX PATIENT MEDICARE (WNR) MEDICARE (M) PART A May 31, 2011 PART A [id number] [phone] KANE PÉREZ PATIENT MEDICARE (WNR) MEDICARE (M) PART B May 31, 2011 PART B [id number] [phone] KANE PÉREZ PATIENT Selected Encounter This section includes the information on record at [place] for the Encounter. Date/Time Encounter Type Encounter Description Reason Pro vider Source IHE Encounter Template Text not used by [place] Advance Directives: All historical and current Section [...] Jun 22, 2021 ADVANCE DIRECTIVE ALLYSON GRAF [facility] Mar 09, 2007 ADVANCE DIRECTIVE SOLEDAD WOLFF [facility]
--- OUTSIDE RECORDS SUMMARY | 2024-06-18 11:28 | XMS_ITS | Encounter Summary ---
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 Address [address] [place] [address] Care Team Providers Care Sack Maker Name Role Phone CHARLEE FISH Primary Care [...] MEDIC ARE SUPPL EMENT Jul 31, 2018 [id number] [phone] RENBRITTNEY,KANE ALEX PATIENT [place] SUPPLEMEN [place] MEDIC ARE SUPPL EMENT Jul 31, 2018 [id number] [phone] RENAUX,JU ALEX PATIENT [place] ([place] MEDICARE ADVANTAGE MCR (WNR) Jul 31, 2017 [id number] [phone] RENAUX,JU ALEX PATIENT [place] MEDICARE SUPPLEMEN SCOT MEDIC ARE SUPPL EMENT Jul 31, 2018 [id number] [phone] RENAUX,JU ALEX PAT[place] SUPPLEMEN [place] MEDIC ARE SUPPL EMENT Jul 31, 2018 [id number] [phone] RENAUX,JU ALEX PATIENT MEDICARE (WNR) MEDICARE (M) PART B May 31, 2011 PART B [id number] [phone] KANE PÉREZ PATIENT MEDICARE (WNR) MEDICARE (M) PART A May 31, 2011 PART A [id number] [phone] KANE PÉREZ PATIENT Selected Encounter This section includes the information on record at OR for the Encounter. Date/Time Encounter Type Encounter Description Reason Provider Source May 17, 2024 02:45 PM OFFICE O/P EST MOD 30 MIN PRIMARY CARE/MEDICINE ICD-10-CM E11.42 Type 2 diabetes mellitus with diabetic polyneuropathy NENA FISH A [facility] Encounter Template Text not used by OR Assessments - Encounter Diagnoses This section includes the primary and secondary diagnoses documented for the Encounter. Date/Time Primary/Secondary Diagnosis Diagnosis Name Provider Source May 28, 2024 01:06 PM PRIMARY Type 2 diabetes mellitus with diabetic polyneuropathy NENA FISH A [facility] May 28, 2024 01:06 PM SECONDARY Encounter for immunization TREVON GRIJALVA [facility] May 28, 2024 01:06 PM SECONDARY Other fatigue NENA FISH A [facility] May 28, 2024 01:06 PM SECONDARY Personal history of diabetic foot ulcer NENA FISH A [facility] May 28, 2024 01:06 PM SECONDARY Tobacco use NENA FISH A [facility] May 28, 2024 01:06 PM SECONDARY Type 2 diabetes mellitus with diabetic neuropathy, unsp NENA FISH A [facility] May 28, 2024 01:06 PM SECONDARY Type 2 diabetes mellitus with foot ulcer NENA FISH A [facility] Plan of Treatment: Future Appointments (+ 6 months) and Future Tests (+/- 45 days) The Plan of Treatment section includes [facility] care [facility] the [facility] This section includes future appointments [...] 2024 11:30 AM AMBULATORY - NONE [facility] Jul 09, 2024 11:30 AM AMBULATORY - NONE [facility] Lab Results: +/- 30 days of the encounter This section includes the Chemistry and Hematology Lab Results on record with OR for the patient. Radiology Reports and Pathology Reports are provided separately, in subsequent sections. Lab Results This section contains the Chemistry/Hematology Results that were resulted 30 days before or 30 daysafter the date of the Encounter. Date/Time Source Result Type Result - Unit Interpretation Reference Range Comment May 17, 2024 01:55 PM [facility] HEMOGLOBIN A1C Specimen Type: BLOOD Comment: [...] 16, 2024 11:04 AM Reporting Lab: [facility] [id number] Performing Lab: [facility] [id number] HEMOGLOBIN A1C 8.4 H 4.0-6.0 May 17, 2024 01:55 PM [facility] BASIC METABOLIC PANEL+MG Specimen Type: PLASMA No comment entered. Ordering Provider: SOSA FISH Report Released Date/Time: Apr 16, 2024 11:04 AM Reporting Lab: [facility] [id number] Performing Lab: [facility] [address] CREATININE 1.2 mg/dL 0.7-1.2 UREA NITROGEN 22 mg/dL 8-26 GLUCOSE 187 mg/dL H 70-100 SODIUM 138 mmol/L 136-145 POTASSIUM 4.5 mmol/L 3.5-5.1 CHLORIDE 102 mmol/L 98-107 CO2 25 mmol/L 22-29 CALCIUM 9.7 mg/dL 8.4-10.2 MAGNESIUM 1.7 mg/dL 1.6-2.6 ANION GAP 11 mmol/L 5-15 .CREAT EGFR(CKD-EPI ) 62 >60 May 17, 2024 01:55 PM [facility] CBC & DIFF Specimen Type: BLOOD Comment: Automated Differential Performed Ordering Provider: SOSA FISH Report Released Date/Time: Apr 16, 2024 11:04 AM Reporting Lab: [facility] [id number] Performing Lab: [facility] [id number] WBC 8.8 4.0-11.0 RBC 4.74 4.60-6.20 HGB [...] 113 123/79 95 0 70 240.8 35 [place] [facility] Immunizations: All administered on the encounter date [...] and tobacco- related health factors from the [facility] where the Encounter took place. Current Smoking Status This section includes the most current smoking, or tobacco-related health factor, from the OR facility where the Encounter took place. Date/Time Current Smoking Status Comment Facil ity May 17, 2024 02:45 PM VA-TOBACCO FORMER USER [facility] Tobacco Use History This section includes a history of the smoking, or tobacco-related health factors, that were collected on or before the date of the Encounter. The data comes from the [facility] where the Encounter took place. Date/Time Smoking Status/Tobacco Use Comment F acility May 17, 2024 02:45 PM VA-TOBACCO QUIT 15 YRS OR MORE [facility] Aug 18, 2022 08:30 AM VA-TOBACCO FORMER USER [facility] Aug 18, 2022 08:30 AM VA-TOBACCO QUIT [...] 22, 2021 ADVANCE DIRECTIVE [facility] Mar 09, 2007 ADVANCE DIRECTIVE [place] [...] 2024@09:28 ENTRY DATE: MAY 21, 2024@09:28:38 AUTHOR: TREVON GRIJALVA EXP COSIGNER: URGENCY: STATUS: COMPLETED MEDICINE CLINIC [...] GRIJALVA LPN Signed: 05/21/2024 09:45 TREVON GRIJALVA [facility] May 17, 2024 01:02 PM INTERNAL MEDICINE [...] He has again been working with his lot associate. The wound is improved, but not completely closed. He is being treated with skin graft treatments through his [place] lot associate he says he has had 4 or [...] bike. He has been working with the [place] diabetes daycare teacher. He has been using a [employer] rebecca meter for the past 6 weeks, [...] metatarsal fracture 2. Diabetes mellitus (SNOMED CT 21848188) 3. Hyperlipidemia (SNOMED CT 73876095) 4. Depressive Disorder NOS * 5. Tobacco user (SNOMED CT 565859025) 6. Personal History of Alcoholism 7. Other Iatrogenic Hypotension 8. Hyperuricemia 9. Osteopenia 10. History of amputation of lesser toe 11. Diabetic neuropathy 12. 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 Diabetic foot wound. Managed by outside lot associate. It had closed up after 1.5 years, however shortly after that it reopened, and he is again working with podiatry for wound management he is also working with [employer] in [place] for custom diabetic shoes. 2. Diabetes, suboptimal control. Recently has a [employer] CGM, has moved his glargine insulin to the morning. He is tolerating his current dose of semaglutide, and if anything has actually gained a little bit of weight. He denies having GI side effects, and is interested in increasing to 2 mg/week. Will continue to follow-up with diabetes daycare teacher. 3. Fatigue. He thinks this is mostly [...] Allergy/ADR Data available for this patient [facility] VANCOMYCIN Active and Recently Outpatient Medications (including [...] MD Physician Signed: 05/18/2024 13:47 CHARLEE FISH [facility]
== END 2024-06-18 11:25 | disposition home or self-care (01) ==
LOC: WOUND 11:24
PROVIDERS: Visit Provider Nurse Practitioner Family
DX: E11.621 Type 2 diabetes mellitus with foot ulcer (principal); I89.0 Lymphedema, not elsewhere classified; L97.512 Non-pressure chronic ulcer of other part of right foot with fat layer exposed
CPT/HCPCS: 15275; Q4201

== ENCOUNTER 2024-06-25 11:24 | Outpatient (CLI) | payer MEDICARE, BC, SELFPAY | END 2024-06-25 11:25 | disposition home or self-care (01) | LOC: WOUND 11:24 | PROVIDERS: Visit Provider Nurse Practitioner Family | DX: E11.621 Type 2 diabetes mellitus with foot ulcer (principal); I89.0 Lymphedema, not elsewhere classified; L97.512 Non-pressure chronic ulcer of other part of right foot with fat layer exposed; Z79.84 Long term (current) use of oral hypoglycemic drugs; Z79.85 Long-term (current) use of injectable non-insulin antidiabetic drugs | CPT/HCPCS: 87070; 87186; 97597; G0463 ==

== ENCOUNTER 2024-07-02 11:20 | Outpatient (CLI) | payer MEDICARE, BC, SELFPAY ==
--- OUTSIDE RECORDS SUMMARY | 2024-07-02 11:23 | XMS_ITS | Continuity of Care Document ---
Author Name [facility] Organization [facility] Care Team Providers Care Yoker Name Role Phone [facility] Unavailable Unavailable Problems Combined list of problems from Department of Defense and Veterans Affairs facilities. It does not include entries that were removed or entered in error. Problem Status Onset Date Problem Type Date of Resolution Comments Source Exposure to potentially hazardous substance ([facility] 710432070076303) Active 10/05/19 24 Condition Oct 05, 2023 Entered By: VIJI VIVAS [facility]: [facility] Documentation Initiative [facility] Depressive Disorder NOS * (ICD-9-CM 311./300.4) Active Condition [facility] Diabetes mellitus (SNOMED CT 73131489) Active Condition [facility] Diabetic neuropathy Active Condition [facility] Foot Pain (ICD-9-CM 719.47) Active Condition Aug 26 10 Entered By: MALINA WORLEY Comment: left 5th metatarsal fracture [facility] History of amputation of lesser toe Active Condition [facility] Hyperlipidemia (SNOMED CT 80134859) Active Condition [facility] Hyperuricemia Active Condition [place] [facility]) Osteopenia Active Condition [place] [facility] Other Iatrogenic Hypotension Active Condition [place] [facility]) Personal History of Alcoholism (ICD-9-CM V11.3) Active Condition [facility] Tobacco user (SNOMED CT 190571783) Active Condition [facility] Diagnosis: ICD-10-CM E11.42 Type 2 diabetes mellitus with diabetic polyneuropathy Active Diagnosis [facility] Diana [facility] Diagnosis: ICD-10-CM E11.621 Type 2 diabetes mellitus with foot ulcer Active Diagnosis [facility] Medications Combined [...] BY MOUTH TWICE A DAY ORAL ACTIVE FISH CHARLEE Robinson 2022 [facility] ASPIRIN 81MG TAB,EC TAKE ONE TABLET BY MOUTH EVERY DAY ORAL ACTIVE JEFF CHOUDHARY ER A 2006 [facility] ATORVASTATI N CA 40MG TAB TAKE ONE TABLET BY MOUTH EVERY DAY FOR CHOLESTE ROL ORAL ACTIVE 04/18/2025 [id number] 4 NAIDL,TOD D 2023 90 [facility] ATORVASTATI N [place] 40MG TAB TAKE ONE TABLET BY MOUTH EVERY DAY FOR CHOLESTE ROL ORAL DISCONT INUED 04/11/2024 [id number] FISH, CHARLEE Robinson 2022 90 [facility] CHOLECALCIF QUINTIN TAB TAKE 5000 UNITS BY MOUTH EVERY DAY ORAL ACTIVE FISH, CHARLEE Robinson 2022 [facility] COENZYME Q10 CAP/TAB TAKE 1 CAPSULE BY MOUTH EVERY DAY ORAL ACTIVE FISH, CHARLEE Robinson [address] [facility] CYANOCOBALA MIN 1000MCG TAB TAKE ONE TABLET BY MOUTH EVERY DAY ORAL ACTIVE NAIDL,TOD D 2021 [facility] DICLOFENAC NA 1% GEL,TOP APPLY 4 GRAMS TOPICALL Y FOUR TIMES A DAY NEEDED FOR JOINT PAIN TOPICA L HOLD 05/18/2025 [id number] FISH, CHARLEE Robinson 2023 100 [facility] FINASTERIDE 5MG TAB TAKE ONE TABLET BY MOUTH EVERY DAY FOR PROSTATE ORAL ACTIVE 04/18/2025 [id number] 4 ABE CHARLEE A 2023 90 [facility] FINASTERIDE 5MG TAB TAKE ONE TABLET BY MOUTH EVERY DAY FOR PROSTATE ORAL DISCONT INUED 04/11/2024 [id number] 4 ABE CHARLEE A 2022 90 [facility] FISH OIL 1000MG (500MG DHA/EPA) CAP,ORAL TAKE 1 CAPSULE BY MOUTH TWICE A DAY ORAL ACTIVE JEFF COHUDHARY ER A 2006 [facility] INSULIN,GLA RGINE-YFGN 100UNIT/ML INJ PEN,3ML INJECT 24 UNITS UNDER THE SKIN EVERY MORNING FOR DIABETES SUBCUT ANEOUS SUSPEND ED 04/27/2025 [id number] NAIDL,TOD D 2023 5 [facility] INSULIN,GLA RGINE-YFGN 100UNIT/ML INJ PEN,3ML INJECT 24 UNITS UNDER THE SKIN EVERY EVENING FOR DIABETES SUBCUT ANEOUS DISCONT INUED (EDIT) 04/17/2025 [id number] 4 NAIDL,TOD D 2023 5 [facility] INSULIN,GLA RGINE-YFGN 100UNIT/ML INJ PEN,3ML INJECT 24 UNITS UNDER THE SKIN EVERY EVENING FOR DIABETES SUBCUT ANEOUS DISCONT INUED 08/29/2024 [id number] NAIDL,TOD D 2023 5 [facility] INSULIN,GLA RGINE-YFGN 100UNIT/ML INJ PEN,3ML INJECT 22 UNITS UNDER THE SKIN AT BEDTIME FOR DIABETES SUBCUT ANEOUS DISCONT INUED (EDIT) 01/07/2024 [id number] NAIDL,TOD D 2022 5 [facility] MAGNESIUM OXIDE 400MG TAB TAKE ONE TABLET BY MOUTH EVERY DAY ORAL ACTIVE CHARLEE FISH 2022 [facility] METFORMIN HCL 1000MG TAB TAKE ONE TABLET BY MOUTH TWICE A DAY FOR DIABETES ORAL SUSPEND ED 06/26/2025 [id number] 4 CHARLEE FISH 2023 180 [facility] METFORMIN HCL 1000MG TAB TAKE ONE TABLET BY MOUTH TWICE A DAY FOR DIABETES ORAL DISCONT INUED 07/16/2024 [id number] 4 NAIDL,TOD D 2023 180 [facility] METFORMIN HCL 1000MG TAB TAKE ONE TABLET BY MOUTH TWICE A DAY FOR DIABETES ORAL DISCONT INUED 04/11/2024 [id number] 4 CHARLEE FISH A 2022 180 [facility] METFORMIN HCL 1000MG TAB TAKE ONE TABLET BY MOUTH TWICE A DAY FOR DIABETES ORAL DISCONT INUED 07/15/2023 [id number] 3 NAIDL,TOD D 2022 180 [facility] OMEPRAZOLE 20MG CAP,EC TAKE ONE CAPSULE BY MOUTH EVERY DAY ON AN EMPTY STOMACH, AT LEAST 30 MINUTES PRIOR TO A MEAL FOR GERD ORAL ACTIVE 05/18/2025 [id number] 4 CHARLEE FISH A 2023 90 [facility] OMEPRAZOLE 20MG CAP,EC TAKE ONE CAPSULE BY MOUTH EVERY DAY ON AN EMPTY STOMACH, AT LEAST 30 MINUTES PRIOR TO A MEAL FOR GERD ORAL DISCONT INUED 03/22/2024 [id number] CHARLEE FISH 2022 90 [facility] SEMAGLUTIDE 1MG/0.75ML INJ,SOLN,PE N,3ML INJECT 1MG UNDER THE SKIN EVERY WEEK FOR DIABETES SUBCUT ANEOUS DISCONT INUED 11/07/2024 [id number] 4 NAIDL,TOD D 2023 1 [facility] SEMAGLUTIDE 1MG/0.75ML INJ,SOLN,PE N,3ML INJECT 1MG UNDER THE SKIN EVERY WEEK FOR DIABETES SUBCUT ANEOUS DISCONT INUED 11/08/2023 [id number] 4 NAIDL,TOD D 2022 1 [facility] SEMAGLUTIDE 2MG/0.75ML INJ,SOLN,PE N,3ML INJECT 2MG UNDER THE SKIN ONCE WEEKLY FOR DIABETES SUBCUT ANEOUS SUSPEND ED 05/18/2025 [id number] 4 CHARLEE FISH 2023 1 [facility] TAMSULOSIN HCL 0.4MG CAP TAKE ONE CAPSULE BY MOUTH EVERY EVENING ORAL ACTIVE 04/18/2025 [id number] 4 CHARLEE FISH 2023 30 [facility] TAMSULOSIN HCL 0.4MG CAP TAKE ONE CAPSULE BY MOUTH EVERY EVENING ORAL DISCONT INUED 04/13/2024 [id number] CHARLEE FISH 2022 30 [facility] TAMSULOSIN HCL 0.4MG CAP TAKE ONE CAPSULE BY MOUTH EVERY EVENING ORAL DISCONT INUED 04/11/2024 [id number] 3 CHARLEE FISH 2022 90 [facility] TURMERIC CAP/TAB TAKE 500 MG BY MOUTH TWICE A DAY ORAL ACTIVE MATTY POWERS 2018 [facility] Allergies, Adverse Reactions, Alerts Combined list of allergies from Department of Defense and Veterans Affairs facilities. It does not include entries that were removed or entered in error. Substance Category Reaction Severity Reaction type Status Date Reported Comments Source VANCOMYCIN Propensity to adverse reactions to drug (finding) [place] active 8 [facility] Immunizations Combined list of available immunizations from the Department of [facility] and Veterans Affairs facilities. Immunization Series Date Given Administered By Site Reaction Lot Number CVX Code Drug Delimber Operator Status Comments Source COVID-19 ([employer]), MRNA, LNP-S, PF, JOSE-SUCROSE, 30 MCG/0.3 ML (AGES 12+ YEARS) 1 2023 TREVON GRIJALVA LEFT DELTO ID [id number] complet ed [facility] INFLUENZA, HIGH-DOSE, TRIVALENT, PF 2023 TREVON GRIJALVA LEFT DELTO ID [id number] A 135 complet ed [facility] ZOSTER RECOMBINANT 2 2019 187 complet ed [facility] INFLUENZA, INJECTABLE, QUADRIVALENT, PRESERVATIVE FREE 2019 150 complet ed [facility] ZOSTER RECOMBINANT 1 2019 187 complet ed [facility] INFLUENZA, HIGH-DOSE, QUADRIVALENT 2019 197 complet ed [facility] INFLUENZA, SEASONAL, INJECTABLE, PRESERVATIVE FREE 2017 140 complet ed [facility] INFLUENZA, INJECTABLE, QUADRIVALENT, PRESERVATIVE FREE 2017 150 complet ed [facility] INFLUENZA, INJECTABLE, QUADRIVALENT, PRESERVATIVE FREE 2015 150 complet ed [facility] TDAP 2015 115 complet ed [place] [facility] PNEUMOCOCCAL CONJUGATE PCV 13 2015 133 complet ed [facility] TD (ADULT), 5 LF TETANUS TOXOID, PRESERVATIVE FREE, ADSORBED 2015 113 complet ed [facility] INFLUENZA, INJECTABLE, QUADRIVALENT, PRESERVATIVE FREE 2013 150 complet [facility] PNEUMOCOCCAL POLYSACCHARID E PPV23 2010 33 complet [facility] INFLUENZA, UNSPECIFIED FORMULATION 2006 88 complet [facility] PNEUMOCOCCAL, UNSPECIFIED FORMULATION 2006 109 complet [facility] TD(ADULT) UNSPECIFIED FORMULATION 2006 NONE 139 complet [facility] TETANUS TOXOID, UNSPECIFIED FORMULATION 2006 NONE 112 complet [facility] Results Combined list of recent [...] 16, 2024 11:04 AM Reporting Lab: [facility] [address] Performing Lab: [facility] [address] [facility] BASIC METABOLIC PANEL+MG CREATININE [MASS/VOLUM E] IN SERUM OR PLASMA 1.2 mg/dL 0.7 - 1.2 05/17 Specimen Type: PLASMA No comment entered. Ordering Provider: ME LEEROY FISH Report Released Date/Time: Apr 16, 2024 11:04 AM Reporting Lab: [facility] [address] Performing Lab: [facility] [address] [facility] BASIC METABOLIC PANEL+MG UREA NITROGEN [MASS/VOLUM E] IN SERUM OR PLASMA 22 mg/dL 8 - 26 10/18 /2024 Specimen Type: PLASMA No comment entered. Ordering Provider: ME LEEROY FISH Report Released Date/Time: Apr 16, 2024 11:04 AM Reporting Lab: [facility] [address] Performing Lab: [facility] [address] [place] [facility] BASIC METABOLIC PANEL+MG GLUCOSE [MASS/VOLUM E] IN SERUM OR PLASMA 187 mg/dL 70 - 100 05/17 H Specimen Type: PLASMA No comment entered. Ordering Provider: ME LEEROY FISH Report Released Date/Time: Apr 16, 2024 11:04 AM Reporting Lab: [facility] [address] Performing Lab: [facility] [address] [place] [facility] BASIC METABOLIC PANEL+MG SODIUM [MOLES/VOLU ME] IN SERUM OR PLASMA 138 mmol/L 136 - 145 05/17 Specimen Type: PLASMA No comment entered. Ordering Provider: ME LEEROY FISH Report Released Date/Time: Apr 16, 2024 11:04 AM Reporting Lab: [facility] [address] Performing Lab: [facility] [address] [place] [facility] BASIC METABOLIC PANEL+MG POTASSIUM [MOLES/VOLU ME] IN SERUM OR PLASMA 4.5 mmol/L 3.5 - 5.1 05/17 Specimen Type: PLASMA No comment entered. Ordering Provider: ME LEERYO FISH Report Released Date/Time: Apr 16, 2024 11:04 AM Reporting Lab: [facility] [address] Performing Lab: [facility] [address] [place] [facility] BASIC METABOLIC PANEL+MG CHLORIDE [MOLES/VOLU ME] IN SERUM OR PLASMA 102 mmol/L 98 - 107 05/17 Specimen Type: PLASMA No comment entered. Ordering Provider: ME LEEROY FISH Report Released Date/Time: Apr 16, 2024 11:04 AM Reporting Lab: [facility] [address] Performing Lab: [facility] [address] [place] [facility] BASIC METABOLIC PANEL+MG CARBON DIOXIDE, TOTAL [MOLES/VOLU ME] IN SERUM OR PLASMA 25 mmol/L 22 - 29 05/17 Specimen Type: PLASMA No comment entered. Ordering Provider: ME LEEROY FISH Report Released Date/Time: Apr 16, 2024 11:04 AM Reporting Lab: [facility] [address] Performing Lab: [facility] [address] [place] [facility] BASIC METABOLIC PANEL+MG CALCIUM [MASS/VOLUM E] IN SERUM OR PLASMA 9.7 mg/dL 8.4 - 10.2 05/17 Specimen Type: PLASMA No comment entered. Ordering Provider: ME LEEROY FISH Report Released Date/Time: Apr 16, 2024 11:04 AM Reporting Lab: [facility] [address] Performing Lab: [facility] [address] [place] [facility] BASIC METABOLIC PANEL+MG MAGNESIUM [MASS/VOLUM E] IN SERUM OR PLASMA 1.7 mg/dL 1.6 - 2.6 05/17 Specimen Type: PLASMA No comment entered. Ordering Provider: ME LEEROY FISH Report Released Date/Time: Apr 16, 2024 11:04 AM Reporting Lab: [facility] [address] Performing Lab: [facility] [address] [place] [facility] BASIC METABOLIC PANEL+MG ANION GAP IN SERUM OR PLASMA 11 mmol/L 5 - 15 05/17 Specimen Type: PLASMA No comment entered. Ordering Provider: ME LEEROY FISH Report Released Date/Time: Apr 16, 2024 11:04 AM Reporting Lab: [facility] [address] Performing Lab: [facility] [address] [place] [facility] BASIC METABOLIC PANEL+MG GLOMERULAR FILTRATION RATE/1.73 SQ M.PREDICTED [VOLUME RATE/AREA] IN SERUM, PLASMA OR BLOOD BY CREATININE- BASED FORMULA (CKD-EPI 2020) 62 60 05/17 Specimen Type: PLASMA No comment entered. Ordering Provider: ME LEEROY FISH Report Released Date/Time: Apr 16, 2024 11:04 AM Reporting Lab: [facility] [address] Performing Lab: [facility] [address] [place] [facility] CBC & DIFF LEUKOCYTES [#/VOLUME] IN BLOOD BY AUTOMATED COUNT 8.8 4.0 - 11.0 05/17 Specimen Type: BLOOD Comment: Automated Differentia l Performed Ordering Provider: ME LEEROY FISH Report Released Date/Time: Apr 16, 2024 11:04 AM Reporting Lab: [facility] [address] Performing Lab: [facility] [address] [place] [facility] CBC & DIFF ERYTHROCYTE S [#/VOLUME] IN BLOOD BY AUTOMATED COUNT 4.74 4.60 - 6.20 05/17 Specimen Type: BLOOD Comment: Automated Differentia l Performed Ordering Provider: ME LEEROY FISH Report Released Date/Time: Apr 16, 2024 11:04 AM Reporting Lab: [facility] [address] Performing Lab: [facility] [address] [place] [facility] CBC & DIFF HEMOGLOBIN [MASS/VOLUM E] IN BLOOD 13.1 g/dL 13.5 - 17.9 05/17 L Specimen Type: BLOOD Comment: Automated Differentia l Performed Ordering Provider: ME LEEORY FISH Report Released Date/Time: Apr 16, 2024 11:04 AM Reporting Lab: [facility] [address] Performing Lab: [facility] [address] [place] [facility] CBC & DIFF HEMATOCRIT [VOLUME FRACTION] OF BLOOD BY AUTOMATED COUNT 40.7 41.0 - 54.0 05/17 L Specimen Type: BLOOD Comment: Automated Differentia l Performed Ordering Provider: ME LEEROY FISH Report Released Date/Time: Apr 16, 2024 11:04 AM Reporting Lab: [facility] [address] Performing Lab: [facility] [address] [place] [facility] CBC & DIFF MCV [ENTITIC VOLUME] BY AUTOMATED COUNT 85.9 fL 80.0 - 100.0 05/17 Specimen Type: BLOOD Comment: Automated Differentia l Performed Ordering Provider: ME LEEROY FISH Report Released Date/Time: Apr 16, 2024 11:04 AM Reporting Lab: [facility] [address] Performing Lab: [facility] [address] [place] [facility] CBC & DIFF MCH [ENTITIC MASS] BY AUTOMATED COUNT 27.6 pg 27.0 - 33.0 05/17 Specimen Type: BLOOD Comment: Automated Differentia l Performed Ordering Provider: ME LEEROY FISH Report Released Date/Time: Apr 16, 2024 11:04 AM Reporting Lab: [facility] [address] Performing Lab: [facility] [address] [place] [facility] CBC & DIFF MCHC [MASS/VOLUM E] BY AUTOMATED COUNT 32.2 g/dL 32.0 - 37.5 05/17 Specimen Type: BLOOD Comment: Automated Differentia l Performed Ordering Provider: ME LEEROY FISH Report Released Date/Time: Apr 16, 2024 11:04 AM Reporting Lab: [facility] [address] Performing Lab: [facility] [address] [place] [facility] CBC & DIFF PLATELETS [#/VOLUME] IN BLOOD BY AUTOMATED COUNT 185 150 - 400 05/17 Specimen Type: BLOOD Comment: Automated Differentia l Performed Ordering Provider: ME LEEROY FISH Report Released Date/Time: Apr 16, 2024 11:04 AM Reporting Lab: [facility] [address] Performing Lab: [facility] [address] [place] [facility] CBC & DIFF PLATELET MEAN VOLUME [ENTITIC VOLUME] IN BLOOD BY AUTOMATED COUNT 9.6 fL 9.1 - 13.0 05/17 Specimen Type: BLOOD Comment: Automated Differentia l Performed Ordering Provider: ME LEEROY FISH Report Released Date/Time: Apr 16, 2024 11:04 AM Reporting Lab: [facility] [address] Performing Lab: [facility] [address] [place] [facility] CBC & DIFF NEUTROPHILS /100 LEUKOCYTES IN BLOOD BY MANUAL COUNT 68.6 40.0 - 80.0 05/17 Specimen Type: BLOOD Comment: Automated Differentia l Performed Ordering Provider: ME LEEROY FISH Report Released Date/Time: Apr 16, 2024 11:04 AM Reporting Lab: [facility] [address] Performing Lab: [facility] [address] [place] [facility] CBC & DIFF LYMPHOCYTES /100 LEUKOCYTES IN BLOOD BY MANUAL COUNT 21.8 15.0 - 45.0 05/17 Specimen Type: BLOOD Comment: Automated Differentia l Performed Ordering Provider: ME LEEROY FISH Report Released Date/Time: Apr 16, 2024 11:04 AM Reporting Lab: [facility] [address] Performing Lab: [facility] [address] [place] [facility] CBC & DIFF MONOCYTES/1 00 LEUKOCYTES IN BLOOD BY AUTOMATED COUNT 5.9 2.0 - 12.0 05/17 Specimen Type: BLOOD Comment: Automated Differentia l Performed Ordering Provider: ME LEEROY FISH Report Released Date/Time: Apr 16, 2024 11:04 AM Reporting Lab: [facility] [address] Performing Lab: [facility] [address] [place] [facility] CBC & DIFF EOSINOPHILS /100 LEUKOCYTES IN BLOOD BY AUTOMATED COUNT 2.9 0.0 - 6.0 05/17 Specimen Type: BLOOD Comment: Automated Differentia l Performed Ordering Provider: ME LEEROY FISH Report Released Date/Time: Apr 16, 2024 11:04 AM Reporting Lab: [facility] [address] Performing Lab: [facility] [address] [place] [facility] CBC & DIFF BASOPHILS/1 00 LEUKOCYTES IN BLOOD BY MANUAL COUNT 0.5 0.0 - 2.0 05/17 Specimen Type: BLOOD Comment: Automated Differentia l Performed Ordering Provider: ME LEEROY FISH Report Released Date/Time: Apr 16, 2024 11:04 AM Reporting Lab: [facility] [address] Performing Lab: [facility] [address] [place] [facility] CBC & DIFF ERYTHROCYTE DISTRIBUTIO N WIDTH [RATIO] BY AUTOMATED COUNT 15.0 11.5 - 14.5 05/17 H Specimen Type: BLOOD Comment: Automated Differentia l Performed Ordering Provider: ME LEEROY FISH Report Released Date/Time: Apr 16, 2024 11:04 AM Reporting Lab: [facility] [address] Performing Lab: [facility] [address] [place] [facility] CBC & DIFF LYMPHOCYTES [#/VOLUME] IN BLOOD BY AUTOMATED COUNT 1.9 1.0 - 4.0 05/17 Specimen Type: BLOOD Comment: Automated Differentia l Performed Ordering Provider: ME LEEROY FISH Report Released Date/Time: Apr 16, 2024 11:04 AM Reporting Lab: [facility] [address] Performing Lab: [facility] [address] [place] [facility] CBC & DIFF MONOCYTES [#/VOLUME] IN BLOOD BY AUTOMATED COUNT 0.5 0.1 - 1.0 05/17 Specimen Type: BLOOD Comment: Automated Differentia l Performed Ordering Provider: ME LEEROY FISH Report Released Date/Time: Apr 16, 2024 11:04 AM Reporting Lab: [facility] [address] Performing Lab: [facility] [address] [place] [facility] CBC & DIFF NEUTROPHILS [#/VOLUME] IN BLOOD BY AUTOMATED COUNT 6.0 2.0 - 7.7 05/17 Specimen Type: BLOOD Comment: Automated Differentia l Performed Ordering Provider: ME LEEROY FISH Report Released Date/Time: Apr 16, 2024 11:04 AM Reporting Lab: [facility] [address] Performing Lab: [facility] [address] [place] [facility] CBC & DIFF EOSINOPHILS [#/VOLUME] IN BLOOD BY AUTOMATED COUNT 0.3 0.0 - 0.5 05/17 Specimen Type: BLOOD Comment: Automated Differentia l Performed Ordering Provider: ME LEEROY FISH Report Released Date/Time: Apr 16, 2024 11:04 AM Reporting Lab: [facility] [address] Performing Lab: [facility] [address] [place] [facility] CBC & DIFF BASOPHILS [#/VOLUME] IN BLOOD BY AUTOMATED COUNT 0.0 0.0 - 0.2 05/17 Specimen Type: BLOOD Comment: Automated Differentia l Performed Ordering Provider: ME LEEROY FISH Report Released Date/Time: Apr 16, 2024 11:04 AM Reporting Lab: [facility] [address] Performing Lab: [facility] [address] [place] [facility] CBC & DIFF IG(META,MYE LO,PRO) 0.3 05/17 Specimen Type: BLOOD Comment: Automated Differentia l Performed Ordering Provider: ME LEEROY FISH Report Released Date/Time: Apr 16, 2024 11:04 AM Reporting Lab: [facility] [address] Performing Lab: [facility] [address] [place] [facility] CBC & DIFF IMMATURE GRANULOCYTE S [PRESENCE] IN BLOOD BY AUTOMATED COUNT 0.0 0.0 - 0.1 05/17 Specimen Type: BLOOD Comment: Automated Differentia l Performed Ordering Provider: ME LEEROY FISH Report Released Date/Time: Apr 16, 2024 11:04 AM Reporting Lab: [facility] [address] Performing Lab: [facility] [address] [place] [facility] BASIC METABOLIC PANEL+MG CREATININE [MASS/VOLUM E] IN SERUM OR PLASMA 1.2 mg/dL 0.7 - 1.2 03/22 Specimen Type: PLASMA No comment entered. Ordering Provider: ME LEEROY FISH Report Released Date/Time: Aug 21, 2022 03:48 PM Reporting Lab: [facility] [address] Performing Lab: [facility] [address] [place] [facility] BASIC METABOLIC PANEL+MG UREA NITROGEN [MASS/VOLUM E] IN SERUM OR PLASMA 15 mg/dL 8 - 03/22 Specimen Type: PLASMA No comment entered. Ordering Provider: ME LEEROY FISH Report Released Date/Time: Aug 21, 2022 03:48 PM Reporting Lab: [facility] [address] Performing Lab: [facility] [address] [place] [facility] BASIC METABOLIC PANEL+MG GLUCOSE [MASS/VOLUM E] IN SERUM OR PLASMA 145 mg/dL 70 - 100 03/22 H Specimen Type: PLASMA No comment entered. Ordering Provider: ME LEEROY FISH Report Released Date/Time: Aug 21, 2022 03:48 PM Reporting Lab: [facility] [address] Performing Lab: [facility] [address] [place] [facility] BASIC METABOLIC PANEL+MG SODIUM [MOLES/VOLU ME] IN SERUM OR PLASMA 138 mmol/L 136 - 145 03/22 Specimen Type: PLASMA No comment entered. Ordering Provider: ME LEEROY FISH Report Released Date/Time: Aug 21, 2022 03:48 PM Reporting Lab: [facility] [address] Performing Lab: [facility] [address] [place] [facility] BASIC METABOLIC PANEL+MG POTASSIUM [MOLES/VOLU ME] IN SERUM OR PLASMA 4.5 mmol/L 3.5 - 5.1 03/22 Specimen Type: PLASMA No comment entered. Ordering Provider: ME LEEROY FISH Report Released Date/Time: Aug 21, 2022 03:48 PM Reporting Lab: [facility] [address] Performing Lab: [facility] [address] [place] [facility] BASIC METABOLIC PANEL+MG CHLORIDE [MOLES/VOLU ME] IN SERUM OR PLASMA 101 mmol/L 98 - 107 03/22 Specimen Type: PLASMA No comment entered. Ordering Provider: ME LEEROY FISH Report Released Date/Time: Aug 21, 2022 03:48 PM Reporting Lab: [facility] [id number] Performing Lab: [facility] [id number] [place] [facility] METABOLIC PANEL+MG CARBON DIOXIDE, TOTAL [MOLES/VOLU ME] IN SERUM OR PLASMA 27 mmol/L 22 - 29 03/22 Specimen Type: PLASMA No comment entered. Ordering Provider: ME LEEROY FISH Report Released Date/Time: Aug 21, 2022 03:48 PM Reporting Lab: [facility] [id number] Performing Lab: [facility] [id number] [place] [facility] MET[facility]OLIC PANEL+MG CALCIUM [MASS/VOLUM E] IN SERUM OR PLASMA 10.0 mg/dL 8.4 - 10.2 03/22 Specimen Type: PLASMA No comment entered. Ordering Provider: ME LEEROY FISH Report Released Date/Time: Aug 21, 2022 03:48 PM Reporting Lab: [facility] [address] Performing Lab: [facility] [address] [place] [facility] PANEL+MG MAGNESIUM [MASS/VOLUM E] IN SERUM OR PLASMA 1.9 mg/dL 1.6 - 2.6 03/22 Specimen Type: PLASMA No comment entered. Ordering Provider: ME LEEROY FISH Report Released Date/Time: Aug 21, 2022 03:48 PM Reporting Lab: [facility] [address] Performing Lab: [facility] [address] [place] [facility] PANEL+MG ANION GAP IN SERUM OR PLASMA 10 mmol/L 5 - 15 03/22 Specimen Type: PLASMA No comment entered. Ordering Provider: ME LEEROY FISH Report Released Date/Time: Aug 21, 2022 03:48 PM Reporting Lab: [facility] [address] Performing Lab: [facility] [address] [place] [facility] PANEL+MG GLOMERULAR FILTRATION RATE/1.73 SQ M.PREDICTED [VOLUME RATE/AREA] IN SERUM, PLASMA OR BLOOD BY CREATININE- BASED FORMULA (CKD-EPI 2020) 63 60 03/22 Specimen Type: PLASMA No comment entered. Ordering Provider: ME LEEROY FISH Report Released Date/Time: Aug 21, 2022 03:48 PM Reporting Lab: [facility] [address] Performing Lab: [facility] [address] [place] [facility] HEMOGLOBI N A1C HEMOGLOBIN A1C/HEMOGLO BIN.TOTAL IN [...] Reporting Lab: [facility] [address] Performing Lab: [facility] [address] [place] [facility] HEMOGLOBI N A1C HEMOGLOBIN A1C/HEMOGLO BIN.TOTAL IN [...] Reporting Lab: [facility] [address] Performing Lab: [facility] [address] [place] [facility]EL+MG CREATININE [MASS/VOLUM E] IN SERUM OR PLASMA 0.9 mg/dL 0.7 - 1.2 08/18 Specimen Type: PLASMA No comment entered. Ordering Provider: ME LEEROY FISH Report Released Date/Time: December 22, 2021 03:46 PM Reporting Lab: [facility] [address] Performing Lab: [facility] [address] [place] [facility] PANEL+MG UREA NITROGEN [MASS/VOLUM E] IN SERUM OR PLASMA 12 mg/dL 8 - 26 08/18 Specimen Type: PLASMA No comment entered. Ordering Provider: ME LEEROY FISH Report Released Date/Time: December 22, 2021 03:46 PM Reporting Lab: [facility] [address] Performing Lab: [facility] [address] [place] [facility]EL+MG GLUCOSE [MASS/VOLUM E] IN SERUM OR PLASMA 184 mg/dL 70 - 100 08/18 H Specimen Type: PLASMA No comment entered. Ordering Provider: ME LEEROY FISH Report Released Date/Time: December 22, 2021 03:46 PM Reporting Lab: [facility] [address] Performing Lab: [facility] [address] [place] [facility] PANEL+MG SODIUM [MOLES/VOLU ME] IN SERUM OR PLASMA 137 mmol/L 136 - 145 08/18 Specimen Type: PLASMA No comment entered. Ordering Provider: ME LEEROY FISH Report Released Date/Time: December 22, 2021 03:46 PM Reporting Lab: [facility] [address] Performing Lab: [facility] [address] [place] [facility] PANEL+MG POTASSIUM [MOLES/VOLU ME] IN SERUM OR PLASMA 3.9 mmol/L 3.5 - 5.1 08/18 Specimen Type: PLASMA No comment entered. Ordering Provider: ME LEEROY FISH Report Released Date/Time: December 22, 2021 03:46 PM Reporting Lab: [facility] [address] Performing Lab: [facility] [address] [place] [facility] PANEL+MG CHLORIDE [MOLES/VOLU ME] IN SERUM OR PLASMA 102 mmol/L 98 - 107 08/18 Specimen Type: PLASMA No comment entered. Ordering Provider: ME LEEROY FISH Report Released Date/Time: December 22, 2021 03:46 PM Reporting Lab: [facility] [address] Performing Lab: [facility] [address] [place] [facility]+MG CARBON DIOXIDE, TOTAL [MOLES/VOLU ME] IN SERUM OR PLASMA 26 mmol/L 22 - 29 08/18 Specimen Type: PLASMA No comment entered. Ordering Provider: ME LEEROY FISH Report Released Date/Time: December 22, 2021 03:46 PM Reporting Lab: [facility] [address] Performing Lab: [facility] [address] [place] [facility] PANEL+MG CALCIUM [MASS/VOLUM E] IN SERUM OR PLASMA 9.4 mg/dL 8.4 - 10.2 08/18 Specimen Type: PLASMA No comment entered. Ordering Provider: ME LEEROY FISH Report Released Date/Time: December 22, 2021 03:46 PM Reporting Lab: [facility] [address] Performing Lab: [facility] [address] [place] [facility]+MG MAGNESIUM [MASS/VOLUM E] IN SERUM OR PLASMA 1.6 mg/dL 1.6 - 2.6 08/18 Specimen Type: PLASMA No comment entered. Ordering Provider: ME LEEROY FISH Report Released Date/Time: December 22, 2021 03:46 PM Reporting Lab: [facility] [address] Performing Lab: [facility] [address] [place] [facility] PANEL+MG ANION GAP IN SERUM OR PLASMA 9 mmol/L 5 - 15 08/18 Specimen Type: PLASMA No comment entered. Ordering Provider: ME LEEROY FISH Report Released Date/Time: December 22, 2021 03:46 PM Reporting Lab: [facility] [address] Performing Lab: [facility] [address] [place] [facility] MET[facility] PANEL+MG GLOMERULAR FILTRATION RATE/1.73 SQ M.PREDICTED [VOLUME RATE/AREA] IN SERUM, PLASMA OR BLOOD BY CREATININE- BASED FORMULA (CKD-EPI) 89 60 08/18 Specimen Type: PLASMA No comment entered. Ordering Provider: ME LEEROY FISH Report Released Date/Time: December 22, 2021 03:46 PM Reporting Lab: [facility] [address] Performing Lab: [facility] [address] [facility] Vital Signs Combined list of inpatient and outpatient Vital Signs from Department of Defense and [facility], ranging from 12 months to all on record, depending upon the facility. Vital Sign Value Date Comments Source SYSTOLIC BLOOD PRESSURE 123 05/17/2024 14:50:52 [facility] DIASTOLIC BLOOD PRESSURE 79 05/17/2024 14:50:52 [facility] PULSE OXIMETRY 95 05/17/2024 14:50:52 [facility] WE[facility] 240.8 05/17/2024 14:50:52 [facility] BMI 35kg/m2 05/17/2024 14:50:52 [facility] PAIN 0 05/17/2024 14:50:52 [facility] HEIGHT 70 05/17/2024 14:50:52 [facility] TEMPERATURE 97.8 05/17/2024 14:50:52 [facility] PULSE 113 05/17/2024 14:50:52 [facility] Encounters Combined list of: 1) 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 2) Encounters from the Department of [facility] facilities going back up to 280 months. Location Location Details Encounter Type Encounter Number Reason For Visit Attending Provider ADM Date DC Date Status Disposition Source [facility] HC PRO PHONE CALL 11-20 MIN [id number] Diagnos is: ICD-10- CM E11.42 Type 2 diabete s mellitu s with diabeti c polyneu ropathy
KARI BRITO 01/06 [facility] Outpatient Encounter [id number] 03/10 [facility] HC PRO PHONE CALL 11-20 MIN [id number] Diagnos is: ICD-10- CM E11.42 Type 2 diabete s mellitu s with diabeti c polyneu ropathy
NAIDL,KARI 03/14 [place] [facility] [place] [facility] O/P EST LOW 20-29 MIN [id number] Diagnos is: ICD-10- CM E11.621 Type 2 diabete s mellitu s with foot ulcer<b r/> Rhiannon FISH A 03/22 [place] [facility] [place] [facility] HC PRO PHONE CALL 21-30 MIN [id number] Diagnos is: ICD-10- CM E11.42 Type 2 diabete s mellitu s with diabeti c polyneu ropathy
NAIDL,KARI 04/18 [place] [facility] [place] [facility] PRO PHONE CALL 21-30 MIN [id number] Diagnos is: ICD-10- CM E11.42 Type 2 diabete s mellitu s with diabeti c polyneu ropathy
NAIDL,KARI 07/11 [place] [facility] [place] [facility] MTMS BY PHARM ADDL 15 MIN [id number] Diagnos is: ICD-10- CM E11.42 Type 2 diabete s mellitu s with diabeti c polyneu ropathy
NAIDL,KARI 08/29 [place] [facility] [place] [facility] MTMS BY PHARM EST 15 MIN [id number] Diagnos is: ICD-10- CM E11.42 Type 2 diabete s mellitu s with diabeti c polyneu ropathy
AWSOLEDAD BUCKLEY L 10/10 [place] [facility] [place] [facility] Out[facility] Encounter [id number] 10/16 [place] [facility] [place] [facility] MTMS BY PHARM EST 15 MIN [id number] Diagnos is: ICD-10- CM E11.621 Type 2 diabete s mellitu s with foot ulcer<b r/> NAIDL,KARI 11/06 [place] [facility] [place] [facility] MTMS BY PHARM ADDL 15 MIN [id number] Diagnos is: ICD-10- CM E11.42 Type 2 diabete s mellitu s with diabeti c polyneu ropathy
NAIDL,KARI 11/22 [place] [facility] [place] [facility] MTMS BY PHARM ADDL 15 MIN [id number] Diagnos is: ICD-10- CM E11.42 Type 2 diabete s mellitu s with diabeti c polyneu ropathy
NAIDL,KARI 01/17 [place] [facility] [place] [facility] Outpatient Encounter [id number] Diagnos is: ICD-10- CM E11.42 Type 2 diabete s mellitu s with diabeti c polyneu ropathy
MILAGRO TONEY 01/18 [place] [facility] [place] [facility] QNHP OL DIG ASSMT&MGMT 5-10 [id number] Diagnos is: ICD-10- CM E11.42 Type 2 diabete s mellitu s with diabeti c polyneu ropathy
MOE CHOWDHURY R 01/18 [place] [facility] [place] [facility] MTMS BY PHARM EST 15 MIN [id number] Diagnos is: ICD-10- CM E11.42 Type 2 diabete s mellitu s with diabeti c polyneu ropathy
NAIDL,KARI 02/21 [place] [facility] [place] [facility] Out[facility] Encounter [id number] RORY CAPPS 02/26 [place] [facility] [place] [facility] Outpatient Encounter [id number] 03/14 [place] [facility] [place] [facility] QNHP OL DIG ASSMT&MGMT 11-20 [id number] Diagnos is: ICD-10- CM E11.42 Type 2 diabete s mellitu s with diabeti c polyneu ropathy
NAIDL,KARI 03/[address] [facility] [place] [facility] Out[facility] Encounter [id number] 04/[address] [facility] MTMS BY PHARM EST 15 MIN [id number] Diagnos is: ICD-10- CM E11.42 Type 2 diabete s mellitu s with diabeti c polyneu ropathy
NAIDLKARI 04/[address] [facility] O/P EST MOD 30 MIN [id number] Diagnos is: ICD-10- CM E11.42 Type 2 diabete s mellitu s with diabeti c polyneu ropathy
Rhiannon FISH 05/[address] [facility] MTMS BY PHARM EST 15 MIN [id number] Diagnos is: ICD-10- CM E11.42 Type 2 diabete s mellitu s with diabeti c polyneu ropathy
NAIDLKARI 06/11 [facility] [place] [facility] Out[facility]counter [id number] 07[facility] Encounter [id number] 07/01 [facility] Social History Combined list of available smoking, tobacco, and other social history from Department of Defense and [facility] Affairs facilities. Social History Type Response Date Comment Sourc e Tobacco smoking status [facility] GA-TOBACCO FORMER USER 05/17/2024 [facility] History of tobacco use GA-TOBACCO QUIT 1 5 YRS OR MORE 05/17/2024 [facility] History of tobacco use VA-TOBACCO FORMER USER 08/18/2022 [facility] History of tobacco use VA-TOBACCO FORMER USER 05/03/2021 [facility] History of tobacco use VA-TOBACCO FORMER USER 04/21/2020 [facility] History of tobacco use FORMER TOBACCO US E >1Y <7Y 04/03/2018 [facility] History of tobacco use CURRENT TOBACCO USER 03/09/2007 [facility] Plan of Care List of future care activities from Department of Veterans Affairs facilities. Additional future care activities may be listed in the Assessment and Plan section. Date/Time Care Activity Care Activity Detail Facili ty 07/09/2024 AMBULATORY - NONE AMBULATORY - NONE [facility] Advance Directives List of completed, amended, or rescinded Advance Directives on record at [facility] facilities. An actual copy of the Directive is not included. Date Advance Directive Provider Source 06/22/2021 ADVANCE DIRECTIVE DISCUSSION ALLYSON GRAF [facility] 06/22/2021 ADVANCE DIRECTIVE ALLYSON GRAF [facility] 03/09/2007 [facility]
--- OUTSIDE RECORDS SUMMARY | 2024-07-02 11:24 | XMS_ITS | Referral Summary ---
Author Organization [place] Address [address] [place] [address] Care Team Providers Care Check Out Cashier Name Role Phone Post, Dave Wakefield MD Primary Care Provider [phone] Medications sulfamethoxazole -trimethoprim (BACTRIM DS/SEPTRA DS) [phone] [...] on file Legal Sex Male 3:10 AM [employer] Gender Identity Not on file Sexual Orientation Not on file Last Filed Vital Signs Vital Sign Reading Time Taken Comments Blood Pressure 148/85 06/26/2018 5:58 PM [employer] Pulse 90 06/26/2018 5:58 PM [employer] Temperature 36.6 C (97.8 F) 06/26/2018 5:58 PM [employer] Respiratory Rate 18 06/26/2018 5:58 PM [employer] Oxygen Saturation 95% 06/26/2018 7:00 PM [employer] Inhaled Oxygen Concentration - - Weight 112 kg (247 lb) 06/26/2018 5:58 PM [employer] Height 180.3 cm (5' 11) 06/26/2018 5:58 PM [employer] Body Mass Index 34.45 06/26/2018 5:58 PM [employer] Plan of Treatment Not on file Insurance [place] Care Teams Check Out Cashier Relationship Specialty Start Date End Date Post, Dave Wakefield MD PCP - General Internal Medicine 06/26/18
--- OUTSIDE RECORDS SUMMARY | 2024-07-02 11:24 | XMS_ITS | Encounter Summary ---
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 [place] [facility] [place] [facility] [place] [facility] [place] Address [address] [place] [address] Care Team Providers Care Television Cabinet Finisher Name Role Phone CHARLEE FISH Primary Care [...] MEDIC ARE SUPPL EMENT Jul 31, 2018 [id number] [phone] RENAUX,JU ALEX PATIENT [place] MEDICARE SUPPLEMEN [place] MEDIC ARE SUPPL EMENT Jul 31, 2018 [id number] [phone] RENAUX,JU ALEX PATIENT [place] [facility] (WNR) MEDICARE ADVANTAGE [facility] (WNR) Jul 31, 2017 [id number] [phone] RENAUX,JU ALEX PATIENT [place] MEDICARE SUPPLEMEN [place] MEDIC ARE SUPPL EMENT Jul 31, 2018 [id number] RENAUX,JU ALEX PAT[place] SUPPLEMEN [place] MEDIC ARE SUPPL EMENT Jul 31, 2018 [id number] [phone] RENAUX,JU ALEX PATIENT MEDICARE (WNR) MEDICARE (M) PART A May 31, 2011 PART A [id number] [phone] KANE PÉREZ PATIENT MEDICARE (WNR) MEDICARE (M) PART B May 31, 2011 PART B [id number] [phone] KANE PÉREZ PATIENT Selected Encounter This section includes the information on record at [place] for the Encounter. Date/Time Encounter Type Encounter Description Reason Pro vider Source Jul 01, 2024 12:11 PM Outpatient Encounter COMMUNITY CARE CONSULT IHE Encounter Template Text not used by [place] Plan of Treatment: Future Appointments (+ 6 months) and Future Tests (+/- 45 days) The Plan of Treatment section includes future care activities for the patient from all [place] [facility]. This section includes future appointments and [...] 09, 2024 11:30 AM [facility] Social History: Smoking Status (Most [...] 17, 2024 02:45 PM VA-TOBACCO FORMER USER [facility] Tobacco Use History This section includes a history of the smoking, or tobacco-related health factors, that were collected on or before the date of the Encounter. The data comes from the [place] facility where the Encounter took place. Date/Time Smoking Status/Tobacco Use Comment F acility May 17, 2024 02:45 PM [place]-TOBACCO QUIT 15 YRS OR MORE [facility] Aug 18, 2022 08:30 AM VA-TOBACCO FORMER USER [facility] Aug 18, 2022 08:30 AM VA-TOBACCO QUIT 15 YRS OR MORE [facility] May 03, 2021 08:00 AM VA-TOBACCO FORMER USER [facility] May 03, 2021 08:00 AM [place]-TO[place]ACCO QUIT 15 YRS OR MORE [facility] Apr 21, 2020 09:00 AM VA-TOBACCO FORMER USER [facility] Apr 21, 2020 09:00 AM [place]-TOBACCO QUIT 15 YRS OR MORE [facility] Apr 03, 2018 03:16 PM FORMER TOBACCO USE >1Y <7Y [facility] Mar 09, 2007 10:41 AM CURRENT TOBACCO USER [facility] Advance Directives: All historical and current [...] from all [facility]. Date Advance Directives Provider Source Jun 22, 2021 ADVANCE DIRECTIVE DISCUSSION ALLYSON GRAF [facility] Jun 22, 2021 ADVANCE DIRECTIVE ALLYSON GRAF [facility] Mar 09, 2007 ADVANCE DIRECTIVE SOLEDAD WOLFF [facility] Encounter Notes: All associated encounter notes This section contains the clinical notes associated to the Encounter. Date/Time Encounter Note(s) Provider Source Jul 01, 2024 12:11 PM NONVA NOTE: LOCAL TITLE: COMMUNITY CARE-CARE COORDINATION PLAN NOTE STANDARD TITLE: NONVA NOTE DATE OF NOTE: JUL 01, 2024@12:11 ENTRY DATE: JUL 01, 2024@12:11:39 AUTHOR: SOLEDAD WANG EXP COSIGNER: URGENCY: STATUS: COMPLETED [place] called the call line requesting services for home health infusion therapy. He wants to use: [facility]([address] [address] I informed to request that the vendor send in a RFAS form to our identifying services needed. /toby/ SOLEDAD WANG AMSA Signed: 07/01/2024 12:13 SOLEDAD WANG [facility]
--- OUTSIDE RECORDS SUMMARY | 2024-07-02 11:24 | XMS_ITS | Encounter Summary ---
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 [facility] [place] Address [address] [place] [address] Care Team Providers Care Scales Inspector Name Role Phone CHARLEE FISH Primary Care [...] MEDIC ARE SUPPL EMENT Jul 31, 2018 [id number] [phone] RENAUX,JU ALEX PATIENT [place] SUPPLEMEN [place] MEDIC ARE SUPPL EMENT Jul 31, 2018 [id number] RENAUX,JU A[place] PAT[place] [facility] (WNR) MEDICARE ADVANTAGE [facility] (WNR) Jul 31, 2017 [id number] [phone] RENAUX,JU ALEX PATIENT [place] MED[place] SUPPLEMEN SCOT MEDIC ARE SUPPL EMENT Jul 31, 2018 [id number] RENAUX,JU [place] SU[place] MED[place] ARE SUPPL EMENT Jul 31, 2018 [id number] [phone] RENAUX,JU ALEX PATIENT MEDICARE (WNR) MEDICARE ([place]) PART A May 31, 2011 PART A [id number] [phone] KANE PÉREZ PATIENT MEDICARE ([place]) MEDICARE ([place]) PART B May 31, 2011 PART B [id number] [phone] KANE PÉREZ PATIENT Selected Encounter This section includes the information on record at [place] for the Encounter. Date/Time Encounter Type Encounter Description Reason Pro vider Source Jul 01, 2024 01:20 PM Outpatient Encounter COMMUNITY CARE CONSULT IHE Encounter Template Text not used by [place] Plan of Treatment: Future Appointments (+ 6 months) and Future Tests (+/- 45 days) The Plan of Treatment section includes future care activities for the [facility] [place] [facility] This section includes future appointments [...] 09, 2024 11:30 AM [facility] N[facility] Social History: Smoking Status (Most current) [...] 17, 2024 02:45 PM VA-TOBACCO FORMER USER [facility] Tobacco Use History This section includes a history of the smoking, or tobacco-related health factors, that were collected on or before the date of the Encounter. The data comes from the [place] facility where the Encounter took place. Date/Time Smoking Status/Tobacco Use Comment F acility May 17, 2024 02:45 PM [place]-TO[place]AC[place] QUIT 15 YRS OR MORE [facility] Aug 18, 2022 08:30 AM VA-TOBACCO FORMER USER [facility] Aug 18, 2022 08:30 AM VA-TOBACCO QUIT 15 YRS OR MORE [facility] May 03, 2021 08:00 AM VA-TOBACCO FORMER USER [facility] May 03, 2021 08:00 AM [place] QU[place] 15 YRS OR MORE [facility] Apr 21, 2020 09:00 AM VA-TOBACCO FORMER USER [facility] Apr 21, 2020 09:00 AM [place] QUIT 15 YRS OR MORE [facility] Apr 03, 2018 03:16 PM FORMER TOBACCO USE >1Y <7Y [facility] Mar 09, 2007 10:41 AM CURRENT TOBACCO USER [facility] Advance Directives: All historical and [...] 22, 2021 ADVANCE DIRECTIVE DISCUSSION ALLYSON GRAF [facility] Jun 22, 2021 ADVANCE DIRECTIVE ALLYSON GRAF [facility] Mar 09, 2007 ADVANCE DIRECTIVE SOLEDAD WOLFF [facility] Encounter Notes: All associated encounter notes This section contains the clinical notes associated to the Encounter. Date/Time Encounter Note(s) Provider Source Jul 01, 2024 03:19 PM ADDENDUM: LOCAL TITLE: Addendum STANDARD TITLE: ADDENDUM DATE OF NOTE: JUL 01, 2024@15:19:45 ENTRY DATE: JUL 01, 2024@15:19:46 AUTHOR: CHARLEE FISH EXP COSIGNER: URGENCY: STATUS: COMPLETED We do not have records from the [facility]. Please ask the to contac the clinic and ask them to fax records bentley. /toby/ Charlee Fish MD Physician Signed: 07/01/2024 15:20 Receipt Acknowledged By: 07/01/2024 16:08 /toby/ DOROTHY YOO RN REGISTERED NURSE --- Original Document --- 07/01/24 COMMUNITY CARE-CARE COORDINATION PLAN NOTE: Holden called back stating that [facility] no longer provides those services he needs. was informed by [facility] that he needs a 14 day Infusion therapy consult, and he would prefer to have this at his home or near him. Please review Infusion history and create a consult for this . /peyton BELL Signed: 07/01/2024 13:22 Receipt Acknowledged By: 07/01/2024 15:19 /peyton Fish MD Physician * AWAITING SIGNATURE * DOROTHY YOO MELODY A [facility] Jul 01, 2024 01:20 PM NONVA NOTE: LOCAL TITLE: COMMUNITY CARE-CARE COORDINATION PLAN NOTE STANDARD TITLE: NONVA NOTE DATE OF NOTE: JUL 01, 2024@13:20 ENTRY DATE: JUL 01, 2024@13:20:07 AUTHOR: SOLEDAD WANG EXP COSIGNER: URGENCY: STATUS: COMPLETED COMMUNITY CARE-CARE COORDINATION PLAN NOTE Has ADDENDA Holden called back stating that [facility] no longer provides those services he needs. Holden was informed by [facility] that he needs a 14 day Infusion therapy consult, and he would prefer to have this at his home or near him. Please review Infusion history and create a consult for this . /peyton BELL Signed: 07/01/2024 13:22 Receipt Acknowledged By: 07/01/2024 15:19 /peyton Fish MD Physician 07/01/2024 16:09 /toby/ DOROTHY YOO RN REGISTERED NURSE 07/01/2024 ADDENDUM STATUS: COMPLETED We do not have records from the [facility]. Please ask the to contac the clinic and ask them to fax records bentley. /peyton Fish MD Physician Signed: 07/01/2024 15:20 Receipt Acknowledged By: 07/01/2024 16:08 /toby/ DOROTHY YOO RN REGISTERED NURSE 07/01/2024 ADDENDUM STATUS: COMPLETED Spoke with patient and let him know his provider needs to see the records from the [facility]. Provided pt with fax number and he indicated he will have them fax the records to Dr. Fish. /es/ DOROTHY YOO, RN REGISTERED NURSE Signed: 07/01/2024 16:10 SOLEDAD WANG [facility]
--- OUTSIDE RECORDS SUMMARY | 2024-07-02 11:24 | XMS_ITS | Data Portability ---
Author Organization [place] [facility] Address [address] [place] [address] Care Team Providers Care Cook House Supervisor Name Role Phone POST, SUE Primary [...] of Hospitaliza tion for UTI. 2022 023 [facility], [address], [address], [place], [address], 10:05:08 urinalysis, dipstick 2022 023 [facility], [address], [place], [address], 12:03:37 Referral None recorded. Procedures None recorded. Surgeries None recorded. Imaging None recorded. Medication Orders None recorded. Patient TargetsNo targets recorded. Patient Instructions Encounter Date Encounter Id Patient Instructions Last Modified By Organization Details Last Modified Time 09/23/2022 [id number] Patient to call clinic with questions or concerns. Advised patient to increase water intake and to keep 4 week appointment for next catheter change. [email or web address] Not available 09/23/2022 13:22:30 11/04/2022 [id number] Pt has F/U appt with Dr Barrientos in [place] on 11/11/2022 @ 3:10pm to review UDS. [...] ate 3) Sensi tivit y Priscila sis Stockett te 1 Stockett te 2 Stockett te 3 ----- ----- ----- ----- ----- [...] s Desk [facility]. S= Susce ptibl [...] for provi brandon revie w. Not Available [facility] [address], [place], [address], 11/07/2022 10:05:08 11/05/19 23 11/04/2022 urina lysis , dipst ick Color-Status Straw Not Available [facility] [address], [place], [address], 11/04/2022 12:02:10 11/05/19 23 11/04/2022 urina lysis , dipst ick Clarity-Stat us Slight ly Cloudy Not Available [facility] [address], [place], [address], 11/04/2022 12:02:10 11/05/19 23 11/04/2022 urina lysis , dipst ick Glucose-Stat us 500 Not Available [facility] [address], [place], [address], 11/04/2022 12:02:10 11/05/19 23 11/04/2022 urina lysis , dipst ick Bilirubin-St atus Negati ve Not Available [facility] [address], [place], [address], 11/04/2022 12:02:10 11/05/19 23 11/04/2022 urina lysis , dipst ick Ketones-Stat us Negati ve Not Available [facility] [address], [place], [address], 11/04/2022 12:02:10 11/05/19 23 11/04/2022 urina lysis , dipst ick Sp [place]-Stat us 1.015 Not Available [facility] [address], [place], [address], 11/04/2022 12:02:10 11/05/19 23 11/04/2022 urina lysis , dipst ick pH-Status 6.5 Not Available [facility] [address], [place], [address], 11/04/2022 12:02:10 11/05/19 23 11/04/2022 urina lysis , dipst ick Protein-Stat us 5.0 Not Available [facility] [address], [place], [address], 11/04/2022 12:02:10 11/05/19 23 11/04/2022 urina lysis , dipst ick Urobilinogen -Status 0.2 Not Available [facility] [address], [place], [address], 11/04/2022 12:02:10 11/05/19 23 11/04/2022 urina lysis , dipst ick Nitrates-Sta tus positi ve Not Available [facility] [address], [place], [address], 11/04/2022 12:02:10 11/05/19 23 11/04/2022 urina lysis , dipst ick Blood-Status Large Not Available [facility] [address], [place], [address], 11/04/2022 12:02:10 11/05/19 23 11/04/2022 urina lysis , dipst ick Leuko-Status Large Not Available [facility] [address], [place], [address], 11/04/2022 12:02:10 11/05/19 23 11/04/2022 urina lysis , dipst ick Specimen Type Cathet erized Not Available [facility] [address], [place], [address], 11/04/2022 12:02:10 11/05/19 23 11/04/2022 urina lysis , dipst ick Performed by LKchuckve n1 Not Available [facility] [address], [place], [address], 11/04/2022 12:02:10 Result Notes None recorded. Problems Name Problem SNOMED Code Status Onset Date Resolution Date Notes Provider Name and Address Organization Details Recorded Time Retention of urine 062964356 Active 023 [facility] 13:15:43 Problem Notes None recorded. Procedures Surgical History Date Name Laterality Status Provider Name and Address Organization Details Recorded Time 3 Fill and Pull/Voiding Trial/TOV completed Jenna Harris [facility] 12/09/2022 11:59:45 3 Urodynamic Studies completed Deyanira Woods [facility] 11/04/2022 12:19:38 3 Gordon Catheter Insertion completed Deyanira Woods [facility] 11/04/2022 12:21:21 3 Urethral Catheter Change completed Jenna Harris [facility] 10/21/2022 13:18:32 3 Urethral Catheter Change completed Nenita Flores [facility] 09/23/2022 13:21:12 3 Gordon Catheter Insertion completed Roula Beltran [facility] 08/03/2022 11:16:51 3 Fill and Pull/Voiding Trial/TOV completed Roula Beltran [facility] 08/03/2022 11:16:41 2 Cystoscopy- male completed Kristopher Barrientos MD, PHD [address] [place] [address],[address], [address], [facility] 06/30/2022 09:37:30 2 Urethral Catheter Change completed Carlos Mix [facility] 06/30/2022 09:49:15 2 Gordon Catheter Insertion completed Juanito Josue [facility] 06/16/2022 15:03:22 2 Fill and Pull/Voiding Trial/TOV completed Roula Tony PA-C [address] [place] [address],[address], [address], [facility] 06/16/2022 18:06:50 Cataract Surgery completed Juanito Josue [facility] 06/16/2022 12:30:25 Orthopedic Surgery completed Еленаarminda Josue [facility] 06/16/2022 12:30:33 Imaging Results [...] Updated DateTime 09/23/2022 180.34 cm Nenitaaranza Flores [facility] 09/23/2022 13:17:39 Date Recorded Body height Body mass index (BMI) Body weight Provider Name and Address Organization Details Last Updated DateTime 11/11/2022 180.34 cm 30 kg/m2 60333.36 g Amanda Molina [facility] 11/11/2022 16:25:51 Social History Question Answer Notes LastModified by Organizat ion Details LastModified Time Tobacco Smoking Status Former Smoker Juanito song [facility] 06/16/2022 12:29:38 What Is [...] Diagnosis/Indication Diagnosis SNOMED-CT Code Diagnosis ICD10 Code [id number] Roula Tony PA-C [facility] [address] [place] [address] 06/16/2022 11:30:09 06/20/2022 08:36:10 Retention of urine 989052006 R33.9 Benign pro static hyperplasia with outflow obstruction 725773636 N40.1 [id number] Kristopher green MD, PHD [facility] [address] [place] [address] 06/30/2022 08:46:23 07/04/2022 11:29:58 Retention of urine 895032731 R33.9 Benign pro static hyperplasia with outflow obstruction 624999977 N40.1 [id number] Roula Ruby [facility] [address] [place] [address] 08/03/2022 10:27:16 08/05/2022 11:54:14 Retention of urine 752009926 R33.9 [id number] Nenitaaranza Flores [facility] [address] [place] [address] 09/23/2022 10:30:04 09/26/2022 14:37:37 [id number] Kristopher green MD, PHD [facility] [address] [place] [address] 11/04/2022 10:41:00 11/10/2022 13:37:32 Benign prostatic hyperplasia with outflow obstruction 790617461 N40.1 Retention of urine 45314 4002 R33.9 Microscopic hematuria 19 2431521 R31.29 [id number] Jenna Harris [facility] [address] [place] [address] 10/21/2022 11:27:55 10/24/2022 11:49:09 Retention of urine 254042984 R33.9 [id number] Kristopher green MD, PHD [facility] [address] [place] [address] 11/11/2022 16:25:28 11/17/2022 17:02:38 Retention of urine 561732428 R33.9 Benign pro static hyperplasia with outflow obstruction 184527933 N40.1 [id number] Jenna Harris [facility] [address] [place] [address] 12/09/2022 10:56:01 12/12/2022 15:10:14 Retention of urine 403646975 R33.9 Health Concerns Section Related Observation LastModified by Organization Detai ls LastModified Time None Recorded Concern Status LastModified by Organization Details LastModified Time None Recorded Advance Directives Directive None Recorded Payers Encounter Date Sequence Insurance Name Policy Number Policy Molina Covered Member ID Molina Member ID Guarantor Name 09/23/2022 1 [place] [employer] Tom B Renaux [id number] Tom B Renaux 09/23/2022 2 [place] [id number] Tom B Renaux [id number] Tom B Renaux 10/21/2022 1 [place] [employer] Tom B Renaux [id number] Tom B Renaux 10/21/2022 2 [place] [id number] Tom B Renaux [id number] Tom B Renaux 11/04/2022 1 [place] [employer] Tom B Renaux [id number] Tom B Renaux 11/04/2022 2 [place] [id number] Tom B Renaux [id number] Tom B Renaux 11/11/2022 1 [place] [employer] Tom B Renaux [id number] Tom B Renaux 11/11/2022 2 [place] [id number] Tom B Renaux [id number] Tom B Renaux 12/09/2022 1 [place] [facility] [employer] Tom B Renaux [id number] Tom B Renaux 12/09/2022 2 [place] [id number] Tom B Renaux [id number] Tom B Renaux Notes Date Note Type [...] weeks for next catheter change. Nenita song [place] [facility] 09/23/2022 13:22:32 10/21/2022 text/html Pt here for cath eter change OLMAN [facility] - [facility] 10/21/2022 13:21:54 11/11/2022 text/html 77M with urinary retention. Hospitalization at [facility] from 04/30-05/30 for MSSA bacteremia with [...] coordinate their care. Kristopher Barrientos MD, PHD [address] [place] [address],[address], [place], [address], [facility] 11/11/2022 17:49:57 12/09/2022 text/html Pt of Dr PALMER, her e for TOV recommended at 11/11/22 visit Jenna song [facility] 12/09/2022 12:43:22
--- OUTSIDE RECORDS SUMMARY | 2024-07-02 11:24 | XMS_ITS | Clinical Summary ---
Author Organization [facility] Address [place], [place] [address] Care Team Providers Care Poultry Farm Manager Name Role Phone Post, Dave Velazquez MD Primary Care Provider Moshe Enciso MD Unavailable [phone] Arie Justin MD Unavailable [phone] [facility], Met Unavailable Murali Hoover DPM Unavailable [phone] Allergies No known active allergies Medications [...] to Care Guide Pamella Brennan Phone number [phone]. Alcohol abuse 06/02/2010 03/26/2019 Overview (06/02/2010): Sober [...] 36.7 C (98 F) 06/29/2022 8:43 AM OR MANAGER Respiratory Rate 18 06/29/2022 8:43 AM OR MANAGER Oxygen Saturation 96% 07/21/2023 1:34 PM OR MANAGER Inhaled Oxygen Concentration - - Weight 107 kg (236 lb) 11/03/2023 11:13 AM CDT w ith shoes Height 180.3 cm (5' 10.98) 07/21/2023 1:[address] Body Mass Index 32.93 07/21/2023 1:34 PM OR MANAGER Plan of Treatment Health Maintenance Due [...] 07/16/2020, 04/21/2020 Medical Devices Implanted Type Area Environmental Assistant Device Identifier Shelf Expiration Date Model / Serial / Lot [id number] - [id number] Implanted:Qty: 1 on 09/20/[address] [facility] Right: Foot [employer] AR-8725-4 4H / / Description:COMPRESSION FT S CREWS CANNULATED, 2.5 MICRO 44MM LOAD 4 [id number] Kristina-1530p - [id number] Implanted:Qty: 1 on 09/20/[address] [facility] Right: Foot [employer] 03/30/2025 AR-1530P- CP / / [id number] Description:FOREFOOT INTERNA L BRACE IMPLANT SYSTEM, PEEK Screw [id number] Bio Compositetenodesis Disp Diet Consultant Pk - [id number] Implanted:Qty: 1 on 09/20/[address] [facility] Right: Foot [employer] 08/30/2022 AR-1547CD S / / [id number] Ancr Sut 1.3mm Dx Fibertak Suturetape 2 Ndl 26.2mm 08/01 [facility] - [id number] Implanted:Qty: 1 on 09/20/[address] [facility] Right: Foot [employer] 06/29/2026 AR-8990ST / / [id number] Explanted Type Area Environmental Assistant Device Identifier Shelf Expiration Date Model / Serial / Lot Wire Kirs .[id number] Smooth6/Pk Depuy/Héctor - [id number] Explanted:Qty: 1 on 09/20/[address] [facility] Right: Foot [employer] / / Description:LOAD 4 8 [id number] [facility]8737-40 - [id number] Explanted:Qty: 1 on 09/20/[address] [facility] Right: Foot [employer] AR-8737-40 / / Description:2.5 MICRO COMPRE SSION FT DRILLS AND DISPOSABLES, GUIDEWIRE W TROCAR TIP, THREADED, 0.34 IN (.86MM) LOAD 4 7 [id number] Procedures Procedure Name Priority Date/Time Associated Diagnosis [...] Documents on File Type Date Recorded Patient Continuous Conveyor Screen Drier Expl anation Healthcare Directive 05/21/2021 3:50 [...] Code Status Discussion: Reviewed Preferences Care Teams Poultry Farm Manager Relationship Specialty Start Date End Date Post, Dave Velazquez MD PCP - General 06/02/10 Moshe Enciso MD [address] [place] [address] Endocrinology Endocrinology 01/04/18 [place] [address] [place] [address] Surgery - Ophthalmology 03/22/18 [facility], [facility] [address] [place] [address] 06/08/21 Murali Hoover DPM [address] [facility] [place] [address] Surgery - Podiatric 01/03/23
--- OUTSIDE RECORDS SUMMARY | 2024-07-02 11:24 | XMS_ITS | Clinical Summary ---
Author Organization [facility] Address [address] [place] [address] Care Team Providers Care Director Of Corporate Communications Name Role Phone Post, Dave Wakefield MD Primary Care Provider [phone] Medications sulfamethoxazole -trimethoprim (BACTRIM DS/SEPTRA DS) [phone] [...] on file Legal Sex Male 3:10 AM DIGITAL MEDIA REPRESENTATIVE Gender Identity Not on file Sexual Orientation Not on file Last Filed Vital Signs Vital Sign Reading Time Taken Comments Blood Pressure 148/85 06/26/2018 5:58 PM DIGITAL MEDIA REPRESENTATIVE Pulse 90 06/26/2018 5:58 PM DIGITAL MEDIA REPRESENTATIVE Temperature 36.6 C (97.8 F) 06/26/2018 5:58 PM DIGITAL MEDIA REPRESENTATIVE Respiratory Rate 18 06/26/2018 5:58 PM DIGITAL MEDIA REPRESENTATIVE Oxygen Saturation 95% 06/26/2018 7:00 PM DIGITAL MEDIA REPRESENTATIVE Inhaled Oxygen Concentration - - Weight 112 kg (247 lb) 06/26/2018 5:58 PM DIGITAL MEDIA REPRESENTATIVE Height 180.3 cm (5' 11) 06/26/2018 5:58 PM DIGITAL MEDIA REPRESENTATIVE Body Mass Index 34.45 06/26/2018 5:58 PM DIGITAL MEDIA REPRESENTATIVE Plan of Treatment Not on file Insurance [place] Care Teams Director Of Corporate Communications Relationship Specialty Start Date End Date Post, Dave Wakefield MD PCP - General Internal Medicine 06/26/18
== END 2024-07-02 11:21 | disposition home or self-care (01) ==
LOC: WOUND 11:21
PROVIDERS: Visit Provider Nurse Practitioner Family
DX: E11.621 Type 2 diabetes mellitus with foot ulcer (principal); I89.0 Lymphedema, not elsewhere classified; L97.518 Non-pressure chronic ulcer of other part of right foot with other specified severity; B96.4 Proteus (mirabilis) (morganii) as the cause of diseases classified elsewhere; Z79.4 Long term (current) use of insulin; Z79.84 Long term (current) use of oral hypoglycemic drugs
CPT/HCPCS: 96372; 97597; J0696

== ENCOUNTER 2024-07-09 08:53 | Outpatient (CLI) | payer MEDICARE, BC, SELFPAY | END 2024-07-09 08:54 | disposition home or self-care (01) | PROVIDERS: Visit Provider Nurse Practitioner Family | DX: E11.621 Type 2 diabetes mellitus with foot ulcer (principal); I89.0 Lymphedema, not elsewhere classified; L97.518 Non-pressure chronic ulcer of other part of right foot with other specified severity; Z79.4 Long term (current) use of insulin; Z79.84 Long term (current) use of oral hypoglycemic drugs | CPT/HCPCS: 96372; 97597; J0713 ==

== ENCOUNTER 2024-07-16 11:20 | Outpatient (CLI) | payer MEDICARE, BC, SELFPAY ==
--- OUTSIDE RECORDS SUMMARY | 2024-07-11 15:30 | XMS_ITS | Encounter Summary ---
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 [place] [facility] [place] [facility] [place] Address [address] [place] [address] Care Team Providers Care Marzipan Molder Name Role Phone CHARLEE FISH Primary Care [...] MEDIC ARE SUPPL EMENT Jul 31, 2018 [id number] [phone] RENBRITTNEY,KANE ALEX PATIENT [place] SUPP[place] MEDIC ARE SUPPL EMENT Jul 31, 2018 [id number] [phone] RENAUX,JU ALEX [place] MEDIC[place] ADVANTAGE MCR (WNR) Jul 31, 2017 [id number] [phone] RENAUX,JU ALEX PATIENT [place] MED[place] SUPPLEMEN SCOT MEDIC ARE SUPPL EMENT Jul 31, 2018 [id number] RENAUX,JU ALEX PATIENT [place] MED[place] SUPPLE[place] MEDIC ARE SUPPL EMENT Jul 31, 2018 [id number] [phone] RENAUX,JU ALEX PATIENT MEDICARE (WNR) MEDICARE (M) PART A May 31, 2011 PART A [id number] KANE PÉREZ PATIENT MEDICARE (WNR) MEDICARE (M) PART B May 31, 2011 PART B [id number] [phone] KANE PÉREZ PATIENT Selected Encounter This section includes the information on record at [place] for the Encounter. Date/Time Encounter Type Encounter Description Reason Provider Source Aug 29, 2023 03:30 PM MTMS BY CELESTE PEARL 15 MIN TELEPHONE PRIMARY CARE ICD-10-CM E11.42 Type 2 diabetes mellitus with diabetic polyneuropathy KARI BRITO [facility] Encounter Template Text not used by [place] [...] 11, 2023 03:30 PM [facility] Nov 23, 2023 03:30 PM [facility] December 02, 2023 07:01 AM [facility] Jan 18, 2024 04:00 PM [facility] Feb 22, 2024 04:00 PM [facility] Social History: Smoking Status (Most [...] 15 YRS OR MORE [facility] Tobacco Use History This [...] Jun 22, 2021 ADVANCE DIRECTIVE ALLYSON GRAF [facility] Mar 09, 2007 ADVANCE DIRECTIVE SOLEDAD WOLFF [facility] Encounter Notes: All associated encounter notes This section contains the clinical notes associated to the Encounter. Date/Time Encounter Note(s) Provider Source Aug 29, 2023 12:52 PM PHARMACY NOTE: LOCAL TITLE: PHARMACOTHERAPY-CLINICAL PHARMACY NOTE STANDARD TITLE: PHARMACY NOTE DATE OF NOTE: AUG 29, 2023@12:52 ENTRY DATE: AUG 29, 2023@12:52:10 AUTHOR: KARI BRITO COSIGNER: URGENCY: STATUS: COMPLETED BACKGROUND: BETOMIGUELINA is a 78 YO MALE contacted by phone for medication management, mainly for DM. PMH is significant for T2DM with chronic foot infections, GERD, and HLD. SUBJECTIVE: In brief, reports doing ok. Continues to struggle with a non-healing foot wound and has been working closely with a local bartender helper/electronic publications specialist. He reports they are looking into the potential that it is infected and has an upcoming MRI. Regarding DM, notes readings are up bit. Lifestyle: Tobacco: Denies EtOH: Denies Food and Drink: Breakfast: egg/stoner/1 piece of toast on occasion a bkfst roll or milk/cereal Lunch: varies--sometimes skips or a sandwich or grapes/cheese, beef stew Evening meal: lubrication technician -- sandwich or fruit/cheese Snacks: snickers, Maysel kisses, more cookies lately Beverages: diet coke, [...] symptoms SMBG Readings: AM 08/29 151/ 08/28 156/ 08/27 169/ 08/26 165/ 08/25 143/ 08/24 144/ 08/23 157/ 08/22 16608/21 16908/20 17008/19 150/ 08/17 149/ ave: 157 ------Previous Readings-------- Dec f/u ave: 139 Mar f/u ave:124 Aug f/u ave: 138 [...] - Vet advised of recent labs. - Wishram verbalized understanding to all plans discussed today. Questions were answered to vet's satisfaction. Time spent: 21 minutes RTC: - 10/10 pharmD phone prefers to avoid [facility]-only has a cellphone /toby/ KARI BRITO PHARM Twyla, BCPS Clinical Pharmacist Practitioner-[facility] Signed: 08/29/2023 15:56 KARI BRITO [facility]
--- OUTSIDE RECORDS SUMMARY | 2024-07-11 15:32 | XMS_ITS | Encounter Summary ---
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 [facility] [place] Address [address] [place] [address] Care Team Providers Care Machine Finisher Name Role Phone CHARLEE FISH Primary [...] MEDIC ARE SUPPL EMENT Jul 31, 2018 [id number] [phone] RENAUX,JU A[place] MED[place] ARE SUPPL EMENT Jul 31, 2018 [id number] [phone] RENAUX,JU ALEX PAT[place] [facility] (WNR) MEDICARE ADVANTAGE [facility] (WNR) Jul 31, 2017 [id number] [phone] RENAUX,JU ALEX PATIENT [place] MEDIC ARE SUPPL EMENT Jul 31, 2018 [id number] RENAUX,JU ALEX [place] MEDIC ARE SUPPL EMENT Jul 31, 2018 [id number] [phone] RENAUX,JU ALEX PATIENT MEDICARE (WNR) MEDICARE (M) PART A May 31, 2011 PART A [id number] [phone] KANE PÉREZ PATIENT MEDICARE (WNR) MEDICARE (M) PART B May 31, 2011 PART B [id number] [phone] KANE PÉREZ PATIENT Selected Encounter This section includes the information on record at CT for the Encounter. Date/Time Encounter Type Encounter Description Reason Provider Source Feb 27, 2024 10:11 AM Outpatient Encounter TELEPHONE/ANCILLARY JOSUÉ CAPPS Encounter Template Text not used by CT Plan of Treatment: Future Appointments (+ 6 months) and Future Tests (+/- 45 days) The Plan of Treatment section includes future care activities for the [facility] This section includes future appointments and future orders which are active, pending or scheduled. Future Appointments This section includes appointments that were scheduled to occur 6 months from the date of the Encounter, up to a maximum of 20 appointments. The data comes from all [facility] facilities. Appointment Date/Time Appointment Type Appointme nt Facility Name Apr 09, 2024 09:00 AM AMBULATORY - NONE [facility] Apr 12, 2024 11:30 AM AMBULATORY - NONE [facility] Apr 17, 2024 01:30 PM AMBULATORY - NONE [facility] Apr 26, 2024 01:30 PM [facility]ONE [facility] May 17, 2024 02:00 PM AMBULATORY - NONE [facility] May 17, 2024 02:45 PM AMBULATORY - MEDICINE [facility] Jun 11, 2024 11:30 AM AMBULATORY - NONE [facility] Jul 09, 2024 11:30 AM AM[facility]ORY - NONE [place] [facility] Aug 14, 2024 11:30 AM AM[facility]ORY - NONE [facility] Social History: Smoking Status (Most current) and Tobacco Use (All prior to encounter date) This section includes the most current, and the historical, smoking and tobacco- related health factors from the CT facility where the Encounter took place. Current Smoking Status This section includes the most current smoking, or tobacco-related health factor, from the CT facility where the Encounter took place. Date/Time Current Smoking Status Quique peng Aug 18, 2022 08:[address]-TOBACCO QUIT 15 YRS OR MORE [facility] Tobacco Use History This section includes a history of the smoking, or tobacco-related health factors, that were collected on or before the date of the Encounter. The data comes from the [place] facility where the Encounter took place. Date/Time Smoking Status/Tobacco Use Comment F acility Aug 18, 2022 08:30 AM VA-TOBACCO QUIT 15 YRS OR MORE [facility] May 03, 2021 08:00 AM VA-TOBACCO FORMER USER [facility] May 03, 2021 08:00 AM VA-TOBACCO QUIT 15 YRS OR MORE [facility] Apr 21, 2020 09:00 AM VA-TOBACCO FORMER USER [facility] Apr 21, 2020 09:[address]-TOBACCO QUIT 15 YRS OR MORE [facility] Apr 03, 2018 03:16 PM FORMER TOBACCO USE >1Y <7Y [facility] Mar 09, 2007 10:41 AM CURRENT TOBACCO USER [facility] Advance Directives: All historical and current Section Date Range: From patient's date of to the date document was created. This section includes ALL of a patient's completed or amended CT Advance and Rescinded Directives. The entries below indicate that a directive exists for the patient, but an actual copy is not included with this document. The data comes from all [facility]. Date Advance Directives Provider Source Jun 22, 2021 ADVANCE DIRECTIVE DISCUSSION ALLYSON GRAF [facility] Jun 22, 2021 ADVANCE DIRECTIVE ALLYSON GRAF [facility] Mar 09, 2007 ADVANCE DIRECTIVE [facility] WOLFF [facility] Encounter Notes: All associated encounter notes This section contains the clinical notes associated to the Encounter. Date/Time Encounter Note(s) Provider Source Feb 27, 2024 10:11 AM INTEGRATIVE HEALTH NOTE: LOCAL TITLE: WHOLE HEALTH ESCREENING NOTE STANDARD TITLE: INTEGRATIVE HEALTH NOTE DATE OF NOTE: FEB 27, 2024@10:11:52 ENTRY DATE: FEB 28, 2024@13:49:33 AUTHOR: JOSUÉ CAPPS COSIGNER: URGENCY: STATUS: COMPLETED Whole Health Questions Whole Health Why is addressing your overall health important to you?: To live pain free and to be fully functional What do you want your health for (why do you want to be healthy)?: To enjoy life Whole Health assessment has been completed and reviewed by the Primary Care Team /toyb/ JAYDE CARDOSO MA, RN Signed: 02/28/2024 16:12 JOSUÉ CAPPS [facility]
--- OUTSIDE RECORDS SUMMARY | 2024-07-11 15:32 | XMS_ITS | Encounter Summary ---
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 [facility] [place] Organization [facility] [place] Address [address] [place] [address] Care Team Providers Care Diesel Pile Driver Operator Name Role Phone CHARLEE FISH Primary [...] MEDIC ARE SUPPL EMENT Jul 31, 2018 [id number] RENKANE LUGO ALEX PATIENT [place] MED[place] ARE SUPPL EMENT Jul 31, 2018 [id number] [phone] RENBRITTNEY,JU ALEX [place]IENT [place] [facility] (WNR) MEDICARE ADVANTAGE [facility] (WNR) Jul 31, 2017 [id number] [phone] RENAUX,JU ALEX PATIENT [place]PP[place] MEDIC ARE SUPPL EMENT Jul 31, 2018 [id number] RENAUX,JU ALEX PAT[place] MEDIC ARE SUPPL EMENT Jul 31, 2018 [id number] [phone] RENAUX,JU ALEX PATIENT MEDICARE (WNR) MEDICARE (M) PART A May 31, 2011 PART A [id number] [phone] KANE MANTILLA PATIENT MEDICARE (WNR) MEDICARE (M) PART B May 31, 2011 PART B [id number] KANE MANTILLA PATIENT Selected Encounter This section includes the information on record at [place] for the Encounter. Date/Time Encounter Type Encounter Description Reason Provider Source Jul 09, 2024 11:30 AM MTMS BY PHARM ERICK 15 MIN TELEPHONE PRIMARY CARE ICD-10-CM E11.42 Type 2 diabetes mellitus with diabetic polyneuropathy KARI BRITO [facility] Encounter Template Text not used by [place] Assessments - Encounter Diagnoses This section includes the primary and secondary diagnoses documented for the Encounter. Date/Time Primary/Secondary Diagnosis Diagnosis Name Provider Source Jul 09, 2024 11:30 AM PRIMARY Type 2 diabetes mellitus with diabetic polyneuropathy KARI BRITO [facility] Plan of Treatment: Future Appointments (+ 6 months) and Future Tests (+/- 45 days) The Plan of Treatment section includes future care activities for the patient from all [place] treatmentfacilities. This section includes future appointments and [...] 14, 2024 11:30 AM AMBULATORY - NONE [facility] Social History: Smoking Status (Most current) and [...] 17, 2024 02:45 PM VA-TOBACCO FORMER USER [facility] Tobacco Use History This section includes a history of the smoking, or tobacco-related health factors, that were collected on or before the date of the Encounter. The data comes from the [place] facility where the Encounter took place. Date/Time Smoking Status/Tobacco Use Comment F acility May 17, 2024 02:45 PM VA-TOBACCO QUIT 15 YRS OR MORE [facility] Aug 18, 2022 08:30 AM VA-TOBACCO FORMER USER [facility] Aug 18, 2022 08:30 AM VA-TOBACCO QUIT 15 YRS OR MORE [facility] May 03, 2021 08:00 AM VA-TOBACCO FORMER USER [facility] May 03, 2021 08:00 AM VA-TOBACCO QUIT 15 YRS OR MORE [facility] Apr 21, 2020 09:00 AM VA-TOBACCO FORMER USER [facility] Apr 21, 2020 09:00 AM VA-TOBACCO QUIT 15 YRS OR MORE [facility] Apr 03, 2018 03:16 PM FORMER TOBACCO USE >1Y <7Y [facility] Mar 09, 2007 10:41 AM CURRENT TOBACCO USER [facility] Advance Directives: All historical and current Section Date Range: From patient's date of to the date document was created. This section includes ALL of a patient's completed or amended [place] Advance and Rescinded Directives. The entries below indicate that a directive exists for the patient, but an actual copy is not included with this document. The data comes from all [facility]. Date Advance Directives Provider Source Jun 22, 2021 ADVANCE DIRECTIVE DISCUSSION ALLYSON GRAF [facility] Jun 22, 2021 ADVANCE DIRECTIVE ALLYSON GRAF [facility] Mar 09, 2007 ADVANCE DIRECTIVE SOLEDAD WOLFF [facility] Encounter Notes: All associated encounter notes This section contains the clinical notes associated to the Encounter. Date/Time Encounter Note(s) Provider Source Jul 09, 2024 11:29 AM LEAD BURNER HELPER NOTE: LOCAL TITLE: DIABETES LEAD BURNER HELPER NOTE STANDARD TITLE: LEAD BURNER HELPER NOTE DATE OF NOTE: JUL 09, 2024@11:29 ENTRY DATE: JUL 09, 2024@11:29:30 AUTHOR: KARI BRITO EXP COSIGNER: URGENCY: STATUS: COMPLETED DIABETES LEAD BURNER HELPER NOTE Has ADDENDA BACKGROUND: MIGUELINA MANTILLA is a 79 YO MALE contacted by phone for medication management, mainly for DM. Active problems - Computerized Problem List is the source for the followin. Foot Pain - left 5th metatarsal fracture 2. Diabetes mellitus (SNOMED CT 60599032) 3. Hyperlipidemia (SNOMED CT 38052892) 4. Depressive Disorder NOS * 5. Tobacco user (SNOMED CT 055699985) 6. Personal History of Alcoholism 7. Other Iatrogenic Hypotension 8. Hyperuricemia 9. Osteopenia 10. History of amputation of lesser toe 11. Diabetic neuropathy 12. Exposure to potentially hazardous substance (SCT [id number]) - [facility] Documentation [employer] SUBJECTIVE: In brief, reports doing ok. Notes appetite is down with the 2 mg dose of semaglutide. Denies bothersome SEs. Has been having more lows lately and skipping his insulin completely, as a result. Continues to struggle with a non-healing foot wound. Recently had a slight setback and was suggested that he get an infusion to address by his LMD. He has been trying to get this addressed via [facility], but appears there have been issues getting records. He is open to getting this done at the [place] or at home. Is very anxious to get addressed MARIYA-I forward his concerns to the RN and his PCP for f/u today. Lifestyle: Tobacco: Denies EtOH: Denies Food and Drink: Breakfast: egg/stoner/1 piece of toast on occasion a bkfst roll or milk/cereal Lunch: varies--sometimes skips or a sandwich or grapes/cheese, beef stew Evening meal: voicer -- sandwich or fruit/cheese Snacks: snickers, [place]far[place] kisses, ice cream, cookies on occasion. other times, nuts and beef jerky. Beverages: diet coke, water, coffee Activity: Uses a walker or cane when ambulating, which is limited given his foot wounds. ROS: (+ hypoglycemia symptoms -->several lows recently--concentrated overnight (-) hyperglycemia symptoms SMBG Readings: Checks prn as indicated given CGM use. Home BP Readings: Previously reported 120s/80s 90s at home. Did not have actual readings. Nurse checks 3x weekly. Adherence to medications: Manages independently using a pillbox. Has been intentionally skipping insulin, as noted. Otherwise, no concerns noted. OBJECTIVE: Name: Miguelina Mantilla Date of : 1945 Report Period: 06/26/2024 - 07/09/2024 (14 days) Generated: 07/09/2024 % Time CGM Active: 97% Glucose Statistics and Targets Average Glucose: 139 mg/dL Glucose Management Indicator (GMI): 6.6% Glucose Variability (%CV): 29.0% Target Range: 70 - 180 mg/dL Time in Ranges Very High: >250 mg/dL --- 1% High: 181 - 250 mg/dL --- 13% Target Range: 70 - 180 mg/dL --- 85% Low: 54 - 69 mg/dL --- 1% Very Low: <54 mg/dL --- 0% Low Alarm: 70 High Alarm: off Trends: Relatively flat profile with readings running in the mid-100s across the board. Several lows noted overnight. ALLERGIES/ADR: VANCOMYCIN (Apr 27, 2018) Outpatient Medications [...] 4) INSULIN,GLARGINE-YFGN 100UNIT/ML PEN 3ML INJECT 24 See text UNITS UNDER THE SKIN EVERY MORNING FOR DIABETES has taken 2-3 doses of 18 units this week -otherwise has skipped completely. 5) METFORMIN HCL 1000MG TAB TAKE ONE TABLET BY MOUTH Confirmed TWICE A DAY FOR DIABETES 6) OMEPRAZOLE 20MG EC CAP TAKE ONE CAPSULE BY MOUTH ACTIVE EVERY DAY ON AN EMPTY STOMACH, AT LEAST 30 MINUTES PRIOR TO A MEAL FOR GERD 7) SEMAGLUTIDE 2MG/0.75ML INJ PEN 3ML INJECT 2MG UNDER Confirmed THE SKIN ONCE WEEKLY FOR DIABETES 8) TAMSULOSIN HCL 0.4MG CAP [...] 14:50 240.8(109.23)[35*] 03/22/2023 14:13 221(100.24)[31*] 08/18/2022 08:26 Lqimirpwflk16/23/2023 14:13 221(100.24)[31*] 08/18/2022 08:26 Unavailable 12/22/2021 13:51 [...] 80-160, PPG <210) per [place] guidelines. Last a1c was up and above goal. More recent CGM data suggests much lower readings, possibly related to the increased dose of semaglutide. As a result, will attempt to step off insulin, as below. PLAN: Medications: -Stop glargine -If fastings increase consistently to >150 after 4 days, restart at 10 units qday -Continue Semaglutide 2 mg q 7 days -Continue metformin 1 gm BID -Continue other meds, as above Monitoring: - SMBG prn - Continue Ashley 3 CGM -Using an [employer] 8 plus #Disease-Specific Med Rec: Completed today #Labs: up-to-date - Educated vet on indication/risks/benefits of new/changed medication. - Education provided on therapeutic nonpharmacologic management to achieve goals. - Vet advised of recent labs. - verbalized understanding to all plans discussed today. Questions were answered to vet's satisfaction. Time spent: 20 minutes RTC: - 08/14 pharmD phone prefers to avoid [facility]-only has a cellphone /toby/ KARI BRITO PHARM D, [facility] Clinical Pharmacist Practitioner-[facility] Signed: 07/09/2024 14:21 07/09/2024 ADDENDUM STATUS: UNSIGNED You may not VIEW this UNSIGNED Addendum. KARI BRITO [facility]
--- OUTSIDE RECORDS SUMMARY | 2024-07-11 15:32 | XMS_ITS | Encounter Summary ---
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 Address [address] [place] [address] Care Team Providers Care Drafting Teacher Name Role Phone CHARLEE FISH Primary Care [...] MEDIC ARE SUPPL EMENT Jul 31, 2018 [id number] [phone] RENKANE LUGO [place] MEDIC ARE SUPPL EMENT Jul 31, 2018 [id number] [phone] RENAUX,JU A[place] [facility] ([place]NR) MEDICARE ADVANTAGE [facility] (WNR) Jul 31, 2017 [id number] [phone] RENAUX,JU ALEX PATIENT [place] MED[place] SUPPLEMEN [place]OT MEDIC ARE SUPPL EMENT Jul 31, 2018 [id number] RENAUX,JU ALEX [place] MEDIC ARE SUPPL EMENT Jul 31, 2018 [id number] [phone] RENAUX,JU ALEX PATIENT MEDICARE (WNR) MEDICARE (M) PART A May 31, 2011 PART A [id number] [phone] KANE PÉREZ PATIENT MEDICARE (WNR) MEDICARE (M) PART B May 31, 2011 PART B [id number] [phone] KANE PÉREZ PATIENT Selected Encounter This section includes the information on record at [place] for the Encounter. Date/Time Encounter Type Encounter Description Reason Provider Source Jul 09, 2024 01:49 PM Outpatient Encounter TELEPHONE TRIAGE RYAN CÁRDENAS Encounter Template Text not used by [place] Plan of Treatment: Future Appointments (+ 6 months) and Future Tests (+/- 45 days) The Plan of Treatment section includes future care activities for the patient from all [place] [facility] This section includes future appointments and future [...] 14, 2024 11:30 AM AMBULATORY - NONE [facility] Social History: Smoking Status (Most [...] 17, 2024 02:45 PM VA-TOBACCO FORMER USER [facility] Tobacco Use History This section includes a history of the smoking, or tobacco-related health factors, that were collected on or before the date of the Encounter. The data comes from the [place] facility where the Encounter took place. Date/Time Smoking Status/Tobacco Use Comment F acility May 17, 2024 02:45 PM MI-TOBACCO QUIT 15 YRS OR MORE [facility] Aug 18, 2022 08:30 AM VA-TOBACCO FORMER USER [facility] Aug 18, 2022 08:30 AM VA-TOBACCO QUIT 15 YRS OR MORE [facility] May 03, 2021 08:00 AM VA-TOBACCO FORMER USER [facility] May 03, 2021 08:00 AM MI-TOBACCO QUIT 15 YRS OR MORE [facility] [...] this document. The data comes from all [facility]. Date Advance Directives Provider Source Jun 22, 2021 ADVANCE DIRECTIVE DISCUSSION ALLYSON GRAF [facility] Jun 22, 2021 ADVANCE DIRECTIVE ALLYSON GRAF [facility] Mar 09, 2007 ADVANCE DIRECTIVE SOLEDAD WOLFF [facility] [...] Patient Name: MIGUELINA PÉREZ Patient Primary Address: [id number] [place] [address] Patient Primary Phone: [phone] Patient : 1945 Patient Age: 79 Caller/Recipient Relation to Patient: Caregiver Caller Name: CHETAN Amos Emergency Contact: DOROTHY DUONG Nursing Plan and Disposition Other course(s) of action Generated msg to PACT/Provider Nurse Summary Nurse Summary: PATIENT CONCERN/DURATION/ONSET: Bette Blake APRN, from [facility], states that is currently being treated at [...] or VVC)? N/A- needs in person evaluation PCAT INSTRUCTOR DISPOSITION: Message manager financial services sent to PACT for follow up with assistance for orders. Verified best call back for APRN. Amos agreeable to plan of care and denies other needs. TXCC not used as call is not symptom based. Best contact for Bette- [phone] option 3 This note was created by a [address] j2ee consultant. Please do not alert this nurse by adding as a signer for future communications. Alerts are not monitored by this user, please reach out to [facility] Leadership instead if indicated. Clinical Contact Center Codes Clinic/Location: 3 [facility] PHONE CCC RN IMPORTANT: This note was created by [facility] Clinical Contact Center staff. Please do not alert the staff member by adding them as a signer for future communications. Alerts are not monitored by this user. /toby/ IRMA CÁRDENAS RN, V23 [facility] Signed: 07/09/2024 13:49 CHARLEE FISH [facility] Jul 09, 2024 01:49 PM RN PROGRESS NOTE: LOCAL TITLE: CCC: CLINICAL TRIAGE STANDARD TITLE: RN PROGRESS NOTE DATE OF NOTE: JUL 09, 2024@13:49:33 ENTRY DATE: JUL 09, 2024@13:49:33 AUTHOR: IRMA CÁRDENAS I EXP COSIGNER: URGENCY: STATUS: COMPLETED CCC: CLINICAL TRIAGE Has ADDENDA Patient Demographics Patient Name: MIGUELINA PÉREZ Patient Primary Address: [address] [place] [address] Patient Primary Phone: [phone] Patient : 1945 Patient Age: 79 Caller/Recipient Relation to Patient: Caregiver Caller Name: CHETAN Amos Emergency Contact: DOROTHY DUONG Nursing Plan and Disposition Other course(s) of action Generated msg to PACT/Provider Nurse Summary Nurse Summary: PATIENT CONCERN/DURATION/ONSET: Bette Blake APRN, from [facility], states that is currently being treated at [...] as prescription was written to being today. [place] is not present at this time. WHAT HAS PATIENT TRIED TO TREAT THE SYMPTOMS: N/A- receiving care at wound clinic; call not symptom based HISTORY/PREVIOUS TREATMENT: DM, foot pain, osteopenia, amputation of lesser toe WHAT IS PATIENT GOAL FOR THE CALL: referral or [facility] to administer mediations Was Virtual Care Visit considered (TELE or VVC)? N/A- needs in person evaluation PCAT INSTRUCTOR DISPOSITION: Message manager financial services sent to PACT for follow up with assistance for orders. Verified best call back for APRN. Amos agreeable to plan of care and denies other needs. TXCC not used as call is not symptom based. Best contact for Bette- [phone] option 3 This note was created by a [address] j2ee consultant. Please do not alert this nurse by adding as a signer for future communications. Alerts are not monitored by this user, please reach out to [facility] Leadership instead if indicated. Clinical Contact Center Codes Clinic/Location: [address] PHONE CCC RN IMPORTANT: This note was created by [facility] Clinical Contact Center staff. Please do not alert the staff member by adding them as a signer for future communications. Alerts are not monitored by this user. /toby/ IRMA CÁRDENAS RN, [address] Signed: 07/09/2024 13:49 07/09/2024 ADDENDUM STATUS: [...] COMPLETED Spoke with Bette Blake APRN from [facility] and let her know this is not something we can accomodate through co-managed care as per provider. Bette said pt has private insurance through medicare. Talked with Bette about the co-managed care and cc referrals and provided Bette with the phone number to [facility] care. /toby/ DOROTHY YOO RN REGISTERED NURSE Signed: 07/09/2024 15:38 07/11/2024 ADDENDUM STATUS: COMPLETED Spoke with Bette Blake APRN, from [facility] and she indicated pt has had his first two doses of IV rocephin and will be coming to [facility] for 10 days straight total for his infusion. Bette is thinking if wound care feels pt needs extended antibiotic treatment, would it be possible for the primary provider to order it through community care and have a nurse come to his home to do the infusion. Discussed they may be able to tell closer to the end of this round of IV antibiotics. Bette said she will check with wound care. Including Dr. Fish as fyi /toby/ DOROTHY YOO RN REGISTERED NURSE Signed: 07/11/2024 09:50 Receipt Acknowledged By: * AWAITING SIGNATURE * CHARLEE FISH [facility]ATHLEEN I [facility]
== END 2024-07-16 11:21 | disposition home or self-care (01) ==
LOC: WOUND 11:20
PROVIDERS: Visit Provider Nurse Practitioner Family
DX: E11.621 Type 2 diabetes mellitus with foot ulcer (principal); L97.512 Non-pressure chronic ulcer of other part of right foot with fat layer exposed; Z79.4 Long term (current) use of insulin; Z79.84 Long term (current) use of oral hypoglycemic drugs
CPT/HCPCS: 97597

== ENCOUNTER 2024-07-18 13:00 | Outpatient (RCR) | payer MEDICARE, BC, SELFPAY ==
[2024-07-10 13:58] VITALS: BP 147/84; PULSE 108; RESP 16; TEMP 36.3; O2SAT 97
[2024-07-10] MEDS: cefTRIAXone 2 GM in 0.9 % SODIUM CHLORIDE Mini-bag 100 ML IVPB (14:46)
--- OUTSIDE RECORDS SUMMARY | 2024-07-11 07:57 | XMS_ITS | Continuity of Care Document ---
Author Name [facility] Organization [facility] Care Team Providers Care Edger Machine Setter Name Role Phone [facility] Unavailable Unavailable Problems Combined list of problems from Department of Defense and Veterans Affairs facilities. It does not include entries that were removed or entered in error. Problem Status Onset Date Problem Type Date of Resolution Comments Source Exposure to potentially hazardous substance ([facility] [id number]) Active 10/05/19 24 Condition Oct 05, 2023 Entered By: VIJI VIVAS Comment: [facility] Documentation Initiative [facility] Depressive Disorder NOS * (ICD-9-CM 311./300.4) Active Condition [facility] Diabetes mellitus (SNOMED CT 85649539) Active Condition [facility] Diabetic neuropathy Active Condition [facility] Foot Pain (ICD-9-CM 719.47) Active Condition Aug 26 10 Entered By: MALINA WORLEY Comment: left 5th metatarsal fracture [facility] History of amputation of lesser toe Active Condition [facility] Hyperlipidemia (SNOMED CT 49777347) Active Condition [facility] Hyperuricemia Active Condition [facility] Osteopenia Active Condition [place] [facility] Other Iatrogenic Hypotension Active Condition [place] [facility]) Personal History of Alcoholism (ICD-9-CM V11.3) Active Condition [facility] Tobacco user (SNOMED CT 880915863) Active Condition [facility] Diagnosis: ICD-10-CM E11.42 Type 2 diabetes mellitus with diabetic polyneuropathy Active Diagnosis [facility] Diagnosis: ICD-10-CM E11.621 Type 2 diabetes mellitus with foot ulcer Active Diagnosis [facility] Medications Combined list of outpatient medications from [...] DAY ORAL ACTIVE FISH CHARLEE Robinson 2022 [facility] ASPIRIN 81MG TAB,EC TAKE ONE TABLET BY MOUTH EVERY DAY ORAL ACTIVE JEFF CHOUDHARY ER A 2006 [facility] ATORVASTATI N CA 40MG TAB TAKE ONE TABLET BY MOUTH EVERY DAY FOR CHOLESTE ROL ORAL ACTIVE 04/18/2025 [id number] 4 NAIDL,TOD D 2023 90 [facility] ATORVASTATI N CA 40MG TAB TAKE ONE TABLET BY MOUTH EVERY DAY FOR CHOLESTE ROL ORAL DISCONT INUED 04/11/2024 [id number] FISH, CHARLEE Robinson 2022 90 [facility] CHOLECALCIF QUINTIN TAB TAKE 5000 UNITS BY MOUTH EVERY DAY ORAL ACTIVE FISH, CHARLEE Robinson 2022 [facility] COENZYME Q10 CAP/TAB TAKE 1 CAPSULE BY MOUTH EVERY DAY ORAL ACTIVE FISH, CHARLEE Robinson 2022 [facility] CYANOCOBALA MIN 1000MCG TAB TAKE ONE TABLET BY MOUTH EVERY DAY ORAL ACTIVE NAIDL,TOD D 2021 [facility] DICLOFENAC NA 1% GEL,TOP APPLY 4 GRAMS TOPICALL Y FOUR TIMES A DAY NEEDED FOR JOINT PAIN TOPICA L HOLD 05/18/2025 [id number] FISH, CHARLEE Robinson 2023 100 [facility] FINASTERIDE 5MG TAB TAKE ONE TABLET BY MOUTH EVERY DAY FOR PROSTATE ORAL ACTIVE 04/18/2025 [id number] ABE CHARLEE A 2023 90 [facility] FINASTERIDE 5MG TAB TAKE ONE TABLET BY MOUTH EVERY DAY FOR PROSTATE ORAL DISCONT INUED 04/11/2024 [id number] 4 ABE CHARLEE A 2022 90 [facility] FISH OIL 1000MG (500MG DHA/EPA) CAP,ORAL TAKE 1 CAPSULE BY MOUTH TWICE A DAY ORAL ACTIVE JEFF CHOUDHARY ER A 2006 [facility] INSULIN,GLA RGINE-YFGN 100UNIT/ML INJ PEN,3ML INJECT 24 UNITS UNDER THE SKIN EVERY MORNING FOR DIABETES SUBCUT ANEOUS SUSPEND ED 04/27/2025 [id number] NAIDL,TOD D 2023 5 [facility] INSULIN,GLA RGINE-YFGN 100UNIT/ML INJ PEN,3ML INJECT 24 UNITS UNDER THE SKIN EVERY EVENING FOR DIABETES SUBCUT ANEOUS DISCONT INUED (EDIT) 04/17/2025 [id number] 4 NAIDL,TOD D 2023 5 [facility] INSULIN,GLA RGINE-YFGN 100UNIT/ML INJ PEN,3ML INJECT 24 UNITS UNDER THE SKIN EVERY EVENING FOR DIABETES SUBCUT ANEOUS DISCONT INUED 08/29/2024 [id number] NAIDL,TOD D 2023 5 [facility] INSULIN,GLA RGINE-YFGN 100UNIT/ML INJ PEN,3ML INJECT 22 UNITS UNDER THE SKIN AT BEDTIME FOR DIABETES SUBCUT ANEOUS DISCONT INUED (EDIT) 01/07/2024 [id number] 3 NAIDL,TOD D 2022 5 [facility] MAGNESIUM OXIDE 400MG TAB TAKE ONE TABLET BY MOUTH EVERY DAY ORAL ACTIVE CHARLEE FISH A 2022 [facility] METFORMIN HCL 1000MG TAB TAKE ONE TABLET BY MOUTH TWICE A DAY FOR DIABETES ORAL SUSPEND ED 06/26/2025 [id number] 4 CHARLEE FISH A 2023 180 [facility] METFORMIN HCL 1000MG TAB TAKE ONE TABLET BY MOUTH TWICE A DAY FOR DIABETES ORAL DISCONT INUED 07/16/2024 [id number] 4 NAIDL,TOD D 2023 180 [facility] METFORMIN HCL 1000MG TAB TAKE ONE TABLET BY MOUTH TWICE A DAY FOR DIABETES ORAL DISCONT INUED 04/11/2024 [id number] 4 CHARLEE FISH A 2022 180 [facility] OMEPRAZOLE 20MG CAP,EC TAKE ONE CAPSULE BY MOUTH EVERY DAY ON AN EMPTY STOMACH, AT LEAST 30 MINUTES PRIOR TO A MEAL FOR GERD ORAL ACTIVE 05/18/2025 [id number] 4 CHARLEE FISH 2023 90 [facility] OMEPRAZOLE 20MG CAP,EC TAKE ONE CAPSULE BY MOUTH EVERY DAY ON AN EMPTY STOMACH, AT LEAST 30 MINUTES PRIOR TO A MEAL FOR GERD ORAL DISCONT INUED 03/22/2024 [id number] CHARLEE FISH 2022 90 [facility] SEMAGLUTIDE 1MG/0.75ML INJ,SOLN,PE N,3ML INJECT 1MG UNDER THE SKIN EVERY WEEK FOR DIABETES SUBCUT ANEOUS DISCONT INUED 11/07/2024 [id number] 4 NAIDL,TOD D 2023 1 [facility] SEMAGLUTIDE 1MG/0.75ML INJ,SOLN,PE N,3ML INJECT 1MG UNDER THE SKIN EVERY WEEK FOR DIABETES SUBCUT ANEOUS DISCONT INUED 11/08/2023 [id number] NAIDL,TOD D 2022 1 [facility] SEMAGLUTIDE 2MG/0.75ML INJ,SOLN,PE N,3ML INJECT 2MG UNDER THE SKIN ONCE WEEKLY FOR DIABETES SUBCUT ANEOUS ACTIVE 05/18/2025 [id number] CHARLEE FISH 2023 1 [facility] TAMSULOSIN HCL 0.4MG CAP TAKE ONE CAPSULE BY MOUTH EVERY EVENING ORAL ACTIVE 04/18/2025 [id number] 4 CHARLEE FISH 2023 30 [facility] TAMSULOSIN HCL 0.4MG CAP TAKE ONE CAPSULE BY MOUTH EVERY EVENING ORAL DISCONT INUED 04/13/2024 [id number] CHARLEE FISH 2022 30 [facility] TAMSULOSIN HCL 0.4MG CAP TAKE ONE CAPSULE BY MOUTH EVERY EVENING ORAL DISCONT INUED 04/11/2024 [id number] 3 CHARLEE FISH 2022 90 [facility] TURMERIC CAP/TAB TAKE 500 MG BY MOUTH TWICE A DAY ORAL ACTIVE MATTY POWERS P 2018 [facility] Allergies, Adverse Reactions, Alerts Combined list of allergies from Department of Defense and Veterans Affairs facilities. It does not include entries that were removed or entered in error. Substance Category Reaction Severity Reaction type Status Date Reported Comments Source VANCOMYCIN Propensity to adverse reactions to drug (finding) [place] active 8 [facility] Immunizations Combined list of available immunizations from the Department of Defense and Veterans Affairs facilities. Immunization Series Date Given Administered By Site Reaction Lot Number CVX Code Drug Job Recruiter Status Comments Source COVID-19 (Pawzii), MRNA, LNP-S, PF, JOSE-SUCROSE, 30 MCG/0.3 ML (AGES 12+ YEARS) 1 2023 OLIVIA GRIJALVAEEN LEFT DELTO ID [id number] 309 complet ed [facility] INFLUENZA, HIGH-DOSE, TRIVALENT, PF 2023 VALENTINETREVON LEFT DELTO ID [id number] A 135 complet ed [facility] ZOSTER RECOMBINANT 2 2019 187 complet ed [facility] INFLUENZA, INJECTABLE, QUADRIVALENT, PRESERVATIVE FREE 2019 150 complet ed [facility] ZOSTER RECOMBINANT 1 2019 187 complet ed [facility] INFLUENZA, HIGH-DOSE, QUADRIVALENT 2019 197 complet ed [facility] INFLUENZA, SEASONAL, INJECTABLE, PRESERVATIVE FREE 2017 140 complet ed [facility] INFLUENZA, INJECTABLE, QUADRIVALENT, PRESERVATIVE FREE 2017 150 complet ed [facility] INFLUENZA, INJECTABLE, QUADRIVALENT, PRESERVATIVE FREE 2015 150 complet ed [facility] TDAP 2015 115 complet ed [place] [facility] PNEUMOCOCCAL CONJUGATE PCV 13 2015 133 complet ed [facility] TD (ADULT), 5 LF TETANUS TOXOID, PRESERVATIVE FREE, ADSORBED 2015 113 complet ed [facility] INFLUENZA, INJECTABLE, QUADRIVALENT, PRESERVATIVE FREE 2013 150 complet ed [facility] PNEUMOCOCCAL POLYSACCHARID E PPV23 2010 33 complet [facility] INFLUENZA, UNSPECIFIED FORMULATION 2006 88 complet [facility] PNEUMOCOCCAL, UNSPECIFIED FORMULATION 2006 109 complet [facility] TD(ADULT) UNSPECIFIED FORMULATION 2006 NONE 139 [facility] TETANUS TOXOID, UNSPECIFIED FORMULATION 2006 NONE 112 complet [facility] Results Combined list of recent chemistry, [...] AM Reporting Lab: [facility] [address] Performing Lab: [facility] [address] [facility] BASIC METABOLIC PANEL+MG CREATININE [MASS/VOLUM E] IN SERUM OR PLASMA 1.2 mg/dL 0.7 - 1.2 05/17 Specimen Type: PLASMA No comment entered. Ordering Provider: ME LEEROY FISH Report Released Date/Time: Apr 16, 2024 11:04 AM Reporting Lab: [facility] [address] Performing Lab: [facility] [address] [facility] BASIC METABOLIC PANEL+MG UREA NITROGEN [MASS/VOLUM E] IN SERUM OR PLASMA 22 mg/dL 8 - 26 05/17 Specimen Type: PLASMA No comment entered. Ordering Provider: ME LEEROY FISH Report Released Date/Time: Apr 16, 2024 11:04 AM Reporting Lab: [facility] [address] Performing Lab: [facility] [address] [place] [facility] BASIC METABOLIC PANEL+MG GLUCOSE [MASS/VOLUM E] IN SERUM OR PLASMA 187 mg/dL 70 - 100 05/17 H Specimen Type: PLASMA No comment entered. Ordering Provider: ME LEEROY FISH Report Released Date/Time: Apr 16, 2024 11:04 AM Reporting Lab: [facility] [address] Performing Lab: [facility] [address] [place] [facility] BASIC METABOLIC PANEL+MG SODIUM [MOLES/VOLU ME] IN SERUM OR PLASMA 138 mmol/L 136 - 145 05/17 Specimen Type: PLASMA No comment entered. Ordering Provider: ME LEEROY FISH Report Released Date/Time: Apr 16, 2024 11:04 AM Reporting Lab: [facility] [address] Performing Lab: [facility] [address] [place] [facility] BASIC METABOLIC PANEL+MG POTASSIUM [MOLES/VOLU ME] IN SERUM OR PLASMA 4.5 mmol/L 3.5 - 5.1 05/17 Specimen Type: PLASMA No comment entered. Ordering Provider: ME LEEROY FISH Report Released Date/Time: Apr 16, 2024 11:04 AM Reporting Lab: [facility] [address] Performing Lab: [facility] [address] [place] [facility] BASIC METABOLIC PANEL+MG CHLORIDE [MOLES/VOLU ME] IN SERUM OR PLASMA 102 mmol/L 98 - 107 05/17 Specimen Type: PLASMA No comment entered. Ordering Provider: ME LEEROY FISH Report Released Date/Time: Apr 16, 2024 11:04 AM Reporting Lab: [facility] [address] Performing Lab: [facility] [address] [place] [facility] BASIC METABOLIC PANEL+MG CARBON DIOXIDE, TOTAL [MOLES/VOLU ME] IN SERUM OR PLASMA 25 mmol/L 22 - 29 05/17 Specimen Type: PLASMA No comment entered. Ordering Provider: ME LEEROY FISH Report Released Date/Time: Apr 16, 2024 11:04 AM Reporting Lab: [facility] [address] Performing Lab: [facility] [address] [place] [facility] BASIC METABOLIC PANEL+MG CALCIUM [MASS/VOLUM E] IN SERUM OR PLASMA 9.7 mg/dL 8.4 - 10.2 05/17 Specimen Type: PLASMA No comment entered. Ordering Provider: ME LEEROY FISH Report Released Date/Time: Apr 16, 2024 11:04 AM Reporting Lab: [facility] [address] Performing Lab: [facility] [address] [place] [facility] BASIC METABOLIC PANEL+MG MAGNESIUM [MASS/VOLUM E] IN SERUM OR PLASMA 1.7 mg/dL 1.6 - 2.6 05/17 Specimen Type: PLASMA No comment entered. Ordering Provider: ME LEEROY FISH Report Released Date/Time: Apr 16, 2024 11:04 AM Reporting Lab: [facility] [address] Performing Lab: [facility] [address] [place] [facility] BASIC METABOLIC PANEL+MG ANION GAP IN SERUM OR PLASMA 11 mmol/L 5 - 15 05/17 Specimen Type: PLASMA No comment entered. Ordering Provider: ME LEEROY FISH Report Released Date/Time: Apr 16, 2024 11:04 AM Reporting Lab: [facility] [address] Performing Lab: [facility] [address] [place] [facility] BASIC METABOLIC PANEL+MG GLOMERULAR FILTRATION RATE/1.73 SQ M.PREDICTED [VOLUME RATE/AREA] IN SERUM, PLASMA OR BLOOD BY CREATININE- BASED FORMULA (CKD-EPI 2020) 62 60 05/17 Specimen Type: PLASMA No comment entered. Ordering Provider: ME LEEROY FISH Report Released Date/Time: Apr 16, 2024 11:04 AM Reporting Lab: [facility] [address] Performing Lab: [facility] [address] [place] [facility] CBC & DIFF LEUKOCYTES [#/VOLUME] IN BLOOD BY AUTOMATED COUNT 8.8 4.0 - 11.0 05/17 Specimen Type: BLOOD Comment: Automated Differentia l Performed Ordering Provider: ME LEEROY FISH Report Released Date/Time: Apr 16, 2024 11:04 AM Reporting Lab: [facility] [address] Performing Lab: [facility] [address] [place] [facility] CBC & DIFF ERYTHROCYTE S [#/VOLUME] IN BLOOD BY AUTOMATED COUNT 4.74 4.60 - 6.20 05/17 Specimen Type: BLOOD Comment: Automated Differentia l Performed Ordering Provider: ME LEEROY FISH Report Released Date/Time: Apr 16, 2024 11:04 AM Reporting Lab: [facility] [address] Performing Lab: [facility] [address] [place] [facility] CBC & DIFF HEMOGLOBIN [MASS/VOLUM E] IN BLOOD 13.1 g/dL 13.5 - 17.9 05/17 L Specimen Type: BLOOD Comment: Automated Differentia l Performed Ordering Provider: ME LEEROY FISH Report Released Date/Time: Apr 16, 2024 11:04 AM Reporting Lab: [facility] [address] Performing Lab: [facility] [address] [place] [facility] CBC & DIFF HEMATOCRIT [VOLUME FRACTION] OF BLOOD BY AUTOMATED COUNT 40.7 41.0 - 54.0 05/17 L Specimen Type: BLOOD Comment: Automated Differentia l Performed Ordering Provider: ME LEEROY FISH Report Released Date/Time: Apr 16, 2024 11:04 AM Reporting Lab: [facility] [address] Performing Lab: [facility] [address] [place] [facility] CBC & DIFF MCV [ENTITIC VOLUME] BY AUTOMATED COUNT 85.9 fL 80.0 - 100.0 05/17 Specimen Type: BLOOD Comment: Automated Differentia l Performed Ordering Provider: ME LEEROY FISH Report Released Date/Time: Apr 16, 2024 11:04 AM Reporting Lab: [facility] [address] Performing Lab: [facility] [address] [place] [facility] CBC & DIFF MCH [ENTITIC MASS] BY AUTOMATED COUNT 27.6 pg 27.0 - 33.0 05/17 Specimen Type: BLOOD Comment: Automated Differentia l Performed Ordering Provider: ME LEEROY FISH Report Released Date/Time: Apr 16, 2024 11:04 AM Reporting Lab: [facility] [address] Performing Lab: [facility] [address] [place] [facility] CBC & DIFF MCHC [MASS/VOLUM E] BY AUTOMATED COUNT 32.2 g/dL 32.0 - 37.5 05/17 Specimen Type: BLOOD Comment: Automated Differentia l Performed Ordering Provider: ME LEEROY FISH Report Released Date/Time: Apr 16, 2024 11:04 AM Reporting Lab: [facility] [address] Performing Lab: [facility] [address] [place] [facility] CBC & DIFF PLATELETS [#/VOLUME] IN BLOOD BY AUTOMATED COUNT 185 150 - 400 05/17 Specimen Type: BLOOD Comment: Automated Differentia l Performed Ordering Provider: ME LEEROY FISH Report Released Date/Time: Apr 16, 2024 11:04 AM Reporting Lab: [facility] [address] Performing Lab: [facility] [address] [place] [facility] CBC & DIFF PLATELET MEAN VOLUME [ENTITIC VOLUME] IN BLOOD BY AUTOMATED COUNT 9.6 fL 9.1 - 13.0 05/17 Specimen Type: BLOOD Comment: Automated Differentia l Performed Ordering Provider: ME LEEROY FISH Report Released Date/Time: Apr 16, 2024 11:04 AM Reporting Lab: [facility] [address] Performing Lab: [facility] [address] [place] [facility] CBC & DIFF NEUTROPHILS /100 LEUKOCYTES IN BLOOD BY MANUAL COUNT 68.6 40.0 - 80.0 05/17 Specimen Type: BLOOD Comment: Automated Differentia l Performed Ordering Provider: ME LEEROY FISH Report Released Date/Time: Apr 16, 2024 11:04 AM Reporting Lab: [facility] [address] Performing Lab: [facility] [address] [place] [facility] CBC & DIFF LYMPHOCYTES /100 LEUKOCYTES IN BLOOD BY MANUAL COUNT 21.8 15.0 - 45.0 05/17 Specimen Type: BLOOD Comment: Automated Differentia l Performed Ordering Provider: ME LEEROY FISH Report Released Date/Time: Apr 16, 2024 11:04 AM Reporting Lab: [facility] [address] Performing Lab: [facility] [address] [place] [facility] CBC & DIFF MONOCYTES/1 00 LEUKOCYTES IN BLOOD BY AUTOMATED COUNT 5.9 2.0 - 12.0 05/17 Specimen Type: BLOOD Comment: Automated Differentia l Performed Ordering Provider: ME LEEROY FISH Report Released Date/Time: Apr 16, 2024 11:04 AM Reporting Lab: [facility] [address] Performing Lab: [facility] [address] [place] [facility] CBC & DIFF EOSINOPHILS /100 LEUKOCYTES IN BLOOD BY AUTOMATED COUNT 2.9 0.0 - 6.0 05/17 Specimen Type: BLOOD Comment: Automated Differentia l Performed Ordering Provider: ME LEEROY FISH Report Released Date/Time: Apr 16, 2024 11:04 AM Reporting Lab: [facility] [address] Performing Lab: [facility] [address] [place] [facility] CBC & DIFF BASOPHILS/1 00 LEUKOCYTES IN BLOOD BY MANUAL COUNT 0.5 0.0 - 2.0 05/17 Specimen Type: BLOOD Comment: Automated Differentia l Performed Ordering Provider: ME LEEROY FISH Report Released Date/Time: Apr 16, 2024 11:04 AM Reporting Lab: [facility] [address] Performing Lab: [facility] [address] [place] [facility] CBC & DIFF ERYTHROCYTE DISTRIBUTIO N WIDTH [RATIO] BY AUTOMATED COUNT 15.0 11.5 - 14.5 05/17 H Specimen Type: BLOOD Comment: Automated Differentia l Performed Ordering Provider: ME LEEROY FISH Report Released Date/Time: Apr 16, 2024 11:04 AM Reporting Lab: [facility] [address] Performing Lab: [facility] [address] [place] [facility] CBC & DIFF LYMPHOCYTES [#/VOLUME] IN BLOOD BY AUTOMATED COUNT 1.9 1.0 - 4.0 05/17 Specimen Type: BLOOD Comment: Automated Differentia l Performed Ordering Provider: ME LEEROY FISH Report Released Date/Time: Apr 16, 2024 11:04 AM Reporting Lab: [facility] [address] Performing Lab: [facility] [address] [place] [facility] CBC & DIFF MONOCYTES [#/VOLUME] IN BLOOD BY AUTOMATED COUNT 0.5 0.1 - 1.0 05/17 Specimen Type: BLOOD Comment: Automated Differentia l Performed Ordering Provider: ME LEEROY FISH Report Released Date/Time: Apr 16, 2024 11:04 AM Reporting Lab: [facility] [address] Performing Lab: [facility] [address] [place] [facility] CBC & DIFF NEUTROPHILS [#/VOLUME] IN BLOOD BY AUTOMATED COUNT 6.0 2.0 - 7.7 05/17 Specimen Type: BLOOD Comment: Automated Differentia l Performed Ordering Provider: ME LEEROY FISH Report Released Date/Time: Apr 16, 2024 11:04 AM Reporting Lab: [facility] [address] Performing Lab: [facility] [address] [place] [facility] CBC & DIFF EOSINOPHILS [#/VOLUME] IN BLOOD BY AUTOMATED COUNT 0.3 0.0 - 0.5 05/17 Specimen Type: BLOOD Comment: Automated Differentia l Performed Ordering Provider: ME LEEROY FISH Report Released Date/Time: Apr 16, 2024 11:04 AM Reporting Lab: [facility] [address] Performing Lab: [facility] [address] [place] [facility] CBC & DIFF BASOPHILS [#/VOLUME] IN BLOOD BY AUTOMATED COUNT 0.0 0.0 - 0.2 05/17 Specimen Type: BLOOD Comment: Automated Differentia l Performed Ordering Provider: ME LEEROY FISH Report Released Date/Time: Apr 16, 2024 11:04 AM Reporting Lab: [facility] [address] Performing Lab: [facility] [address] [place] [facility] CBC & DIFF IG(META,MYE LO,PRO) 0.3 05/17 Specimen Type: BLOOD Comment: Automated Differentia l Performed Ordering Provider: ME LEEROY FISH Report Released Date/Time: Apr 16, 2024 11:04 AM Reporting Lab: [facility] [address] Performing Lab: [facility] [address] [facility] CBC & DIFF IMMATURE GRANULOCYTE S [PRESENCE] IN BLOOD BY AUTOMATED COUNT 0.0 0.0 - 0.1 05/17 Specimen Type: BLOOD Comment: Automated Differentia l Performed Ordering Provider: ME LEEROY FISH Report Released Date/Time: Apr 16, 2024 11:04 AM Reporting Lab: [facility] [address] Performing Lab: [facility] [address] [place] [facility] BASIC METABOLIC PANEL+MG CREATININE [MASS/VOLUM E] IN SERUM OR PLASMA 1.2 mg/dL 0.7 - 1.2 03/22 Specimen Type: PLASMA No comment entered. Ordering Provider: ME LEEROY FISH Report Released Date/Time: Aug 21, 2022 03:48 PM Reporting Lab: [facility] [address] Performing Lab: [facility] [address] [place] [facility] BASIC METABOLIC PANEL+MG UREA NITROGEN [MASS/VOLUM E] IN SERUM OR PLASMA 15 mg/dL 8 - 03/22 Specimen Type: PLASMA No comment entered. Ordering Provider: ME LEEROY FISH Report Released Date/Time: Aug 21, 2022 03:48 PM Reporting Lab: [facility] [address] Performing Lab: [facility] [address] [place] [facility] BASIC METABOLIC PANEL+MG GLUCOSE [MASS/VOLUM E] IN SERUM OR PLASMA 145 mg/dL 70 - 100 03/22 H Specimen Type: PLASMA No comment entered. Ordering Provider: ME LEEROY FISH Report Released Date/Time: Aug 21, 2022 03:48 PM Reporting Lab: [facility] [address] Performing Lab: [facility] [address] [place] [facility] BASIC METABOLIC PANEL+MG SODIUM [MOLES/VOLU ME] IN SERUM OR PLASMA 138 mmol/L 136 - 145 03/22 Specimen Type: PLASMA No comment entered. Ordering Provider: ME LEEROY FISH Report Released Date/Time: Aug 21, 2022 03:48 PM Reporting Lab: [facility] [id number] Performing Lab: [facility] [address] [place] [facility] BASIC METABOLIC PANEL+MG POTASSIUM [MOLES/VOLU ME] IN SERUM OR PLASMA 4.5 mmol/L 3.5 - 5.1 03/22 Specimen Type: PLASMA No comment entered. Ordering Provider: ME LEEROY FISH Report Released Date/Time: Aug 21, 2022 03:48 PM Reporting Lab: [facility] [id number] Performing Lab: [facility] [address] [place] [facility] BASIC METABOLIC PANEL+MG CHLORIDE [MOLES/VOLU ME] IN SERUM OR PLASMA 101 mmol/L 98 - 107 03/22 Specimen Type: PLASMA No comment entered. Ordering Provider: ME LEEROY FISH Report Released Date/Time: Aug 21, 2022 03:48 PM Reporting Lab: [facility] [address] Performing Lab: [facility] [address] [place] [facility] BASIC METABOLIC PANEL+MG CARBON DIOXIDE, TOTAL [MOLES/VOLU ME] IN SERUM OR PLASMA 27 mmol/L 22 - 29 03/22 Specimen Type: PLASMA No comment entered. Ordering Provider: ME LEEROY FISH Report Released Date/Time: Aug 21, 2022 03:48 PM Reporting Lab: [facility] [phone] Performing Lab: [facility] [address] [place] [facility] BASIC METABOLIC PANEL+MG CALCIUM [MASS/VOLUM E] IN SERUM OR PLASMA 10.0 mg/dL 8.4 - 10.2 03/22 Specimen Type: PLASMA No comment entered. Ordering Provider: ME LEEROY FISH Report Released Date/Time: Aug 21, 2022 03:48 PM Reporting Lab: [facility] [address] Performing Lab: [facility] [address] [place] [facility] BASIC METABOLIC PANEL+MG MAGNESIUM [MASS/VOLUM E] IN SERUM OR PLASMA 1.9 mg/dL 1.6 - 2.6 03/22 Specimen Type: PLASMA No comment entered. Ordering Provider: ME LEEROY FISH Report Released Date/Time: Aug 21, 2022 03:48 PM Reporting Lab: [facility] [address] Performing Lab: [facility] [address] [place] [facility] BASIC METABOLIC PANEL+MG ANION GAP IN SERUM OR PLASMA 10 mmol/L 5 - 15 03/22 Specimen Type: PLASMA No comment entered. Ordering Provider: ME LEEROY FISH Report Released Date/Time: Aug 21, 2022 03:48 PM Reporting Lab: [facility] [address] Performing Lab: [facility] [address] [place] [facility] BASIC METABOLIC PANEL+MG GLOMERULAR FILTRATION RATE/1.73 SQ M.PREDICTED [VOLUME RATE/AREA] IN SERUM, PLASMA OR BLOOD BY CREATININE- BASED FORMULA (CKD-EPI 2020) 63 60 03/22 Specimen Type: PLASMA No comment entered. Ordering Provider: ME LEEROY FISH Report Released Date/Time: Aug 21, 2022 03:48 PM Reporting Lab: [facility] [address] Performing Lab: [facility] [address] [place] [facility] HEMOGLOBI N A1C [...] Aug 21, 2022 03:48 PM Reporting Lab: [facility] [address] Performing Lab: [facility] [address] [place] [facility] HEMOGLOBI N [...] December 22, 2021 03:46 PM Reporting Lab: [facility] [address] Performing Lab: [facility] [address] [facility] IS [facility] BASIC METABOLIC PANEL+MG CREATININE [MASS/VOLUM E] IN SERUM OR PLASMA 0.9 mg/dL 0.7 - 1.2 08/18 Specimen Type: PLASMA No comment entered. Ordering Provider: ME LEEROY FISH Report Released Date/Time: December 22, 2021 03:46 PM Reporting Lab: [facility] [address] Performing Lab: [facility] [address] [facility] BASIC METABOLIC PANEL+MG UREA NITROGEN [MASS/VOLUM E] IN SERUM OR PLASMA 12 mg/dL 8 - 26 08/18 Specimen Type: PLASMA No comment entered. Ordering Provider: FISH,ME LODY A Report Released Date/Time: December 22, 2021 03:46 PM Reporting Lab: [facility] [address] Performing Lab: [facility] [address] [place] [facility] BASIC METABOLIC PANEL+MG GLUCOSE [MASS/VOLUM E] IN SERUM OR PLASMA 184 mg/dL 70 - 100 08/18 H Specimen Type: PLASMA No comment entered. Ordering Provider: ME LEEROY FISH Report Released Date/Time: December 22, 2021 03:46 PM Reporting Lab: [facility] [address] Performing Lab: [facility] [address] [place] [facility] BASIC METABOLIC PANEL+MG SODIUM [MOLES/VOLU ME] IN SERUM OR PLASMA 137 mmol/L 136 - 145 08/18 Specimen Type: PLASMA No comment entered. Ordering Provider: ME LEEROY FISH Report Released Date/Time: December 22, 2021 03:46 PM Reporting Lab: [facility] [address] Performing Lab: [facility] [address] [place] [facility] BASIC METABOLIC PANEL+MG POTASSIUM [MOLES/VOLU ME] IN SERUM OR PLASMA 3.9 mmol/L 3.5 - 5.1 08/18 Specimen Type: PLASMA No comment entered. Ordering Provider: ME LEEROY FISH Report Released Date/Time: December 22, 2021 03:46 PM Reporting Lab: [facility] [address] Performing Lab: [facility] [address] [place] [facility] BASIC METABOLIC PANEL+MG CHLORIDE [MOLES/VOLU ME] IN SERUM OR PLASMA 102 mmol/L 98 - 107 08/18 Specimen Type: PLASMA No comment entered. Ordering Provider: ME LEEROY FISH Report Released Date/Time: December 22, 2021 03:46 PM Reporting Lab: [facility] [address] Performing Lab: [facility] [address] [place] [facility] BASIC METABOLIC PANEL+MG CARBON DIOXIDE, TOTAL [MOLES/VOLU ME] IN SERUM OR PLASMA 26 mmol/L 22 - 29 08/18 Specimen Type: PLASMA No comment entered. Ordering Provider: ME LEEROY FISH Report Released Date/Time: December 22, 2021 03:46 PM Reporting Lab: [facility] [address] Performing Lab: [facility] [address] [place] [facility] BASIC METABOLIC PANEL+MG CALCIUM [MASS/VOLUM E] IN SERUM OR PLASMA 9.4 mg/dL 8.4 - 10.2 08/18 Specimen Type: PLASMA No comment entered. Ordering Provider: ME LEEROY FISH Report Released Date/Time: December 22, 2021 03:46 PM Reporting Lab: [facility] [address] Performing Lab: [facility] [address] [place] [facility] BASIC METABOLIC PANEL+MG MAGNESIUM [MASS/VOLUM E] IN SERUM OR PLASMA 1.6 mg/dL 1.6 - 2.6 08/18 Specimen Type: PLASMA No comment entered. Ordering Provider: ME LEEROY FISH Report Released Date/Time: December 22, 2021 03:46 PM Reporting Lab: [facility] [address] Performing Lab: [facility] [address] [place] [facility] BASIC METABOLIC PANEL+MG ANION GAP IN SERUM OR PLASMA 9 mmol/L 5 - 15 08/18 Specimen Type: PLASMA No comment entered. Ordering Provider: ME LEEROY FISH Report Released Date/Time: December 22, 2021 03:46 PM Reporting Lab: [facility] [address] Performing Lab: [facility] [address] [place] [facility] BASIC METABOLIC PANEL+MG GLOMERULAR FILTRATION RATE/1.73 SQ M.PREDICTED [VOLUME RATE/AREA] IN SERUM, PLASMA OR BLOOD BY CREATININE- BASED FORMULA (CKD-EPI) 89 60 08/18 Specimen Type: PLASMA No comment entered. Ordering Provider: ME LEEROY FISH Report Released Date/Time: December 22, 2021 03:46 PM Reporting Lab: [facility] [address] Performing Lab: [facility] [address] [facility] Vital Signs Combined list of inpatient and outpatient Vital Signs from Department of [facility] and Veterans Affairs, ranging from 12 months to all on record, depending upon the facility. Vital Sign Value Date Comments Source SYSTOLIC BLOOD PRESSURE 123 05/17/2024 14:50:52 [facility] DIASTOLIC BLOOD PRESSURE 79 05/17/2024 14:50:52 [facility] PULSE OXIMETRY 95 05/17/2024 14:50:52 [facility] WE[facility] 240.8 05/17/2024 14:50:52 [facility] BMI 35kg/m2 05/17/2024 14:50:52 [facility] PAIN 0 05/17/2024 14:50:52 [facility] HEIGHT 70 05/17/2024 14:50:52 [facility] TEMPERATURE 97.8 05/17/2024 14:50:52 [facility] PULSE 113 05/17/2024 14:50:52 [facility] Encounters Combined list of: 1) 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 2) Encounters from the Department of [facility] facilities going back up to 280 months. Location Location Details Encounter Type Encounter Number Reason For Visit Attending Provider ADM Date DC Date Status Disposition Source [facility] Outpatient Encounter [id number] 03/10 [facility] HC PRO PHONE CALL 11-20 MIN [id number] Diagnos is: ICD-10- CM E11.42 Type 2 diabete s mellitu s with diabeti c polyneu ropathy
KARI BRITO 03/14 [facility] OFFICE O/P EST LOW 20-29 MIN [id number] Diagnos is: ICD-10- CM E11.621 Type 2 diabete s mellitu s with foot ulcer<b r/> Rhiannon FISH 03/22 [facility] HC PRO PHONE CALL 21-30 MIN [id number] Diagnos is: ICD-10- CM E11.42 Type 2 diabete s mellitu s with diabeti c polyneu ropathy
NAIDL,KARI 04/18 [place] [facility] [place] [facility] HC PRO PHONE CALL 21-30 MIN [id number] Diagnos is: ICD-10- CM E11.42 Type 2 diabete s mellitu s with diabeti c polyneu ropathy
NAIDL,KARI 07/11 [place] [facility] [place] [facility] MTMS BY PHARM ADDL 15 MIN [id number] Diagnos is: ICD-10- CM E11.42 Type 2 diabete s mellitu s with diabeti c polyneu ropathy
NAIDL,KARI 08/29 [place] [facility] [place] [facility] MTMS BY PHARM EST 15 MIN [id number] Diagnos is: ICD-10- CM E11.42 Type 2 diabete s mellitu s with diabeti c polyneu ropathy
AWKER,SOLEDAD L 10/10 [place] [facility] [place] [facility] Outpatient Encounter [id number] 10/16 [place] [facility] [place] [facility] MTMS BY PHARM EST 15 MIN [id number] Diagnos is: ICD-10- CM E11.621 Type 2 diabete s mellitu s with foot ulcer<b r/> NAIDL,KARI 11/06 [place] [facility] [place] [facility] MTMS BY PHARM ADDL 15 MIN [id number] Diagnos is: ICD-10- CM E11.42 Type 2 diabete s mellitu s with diabeti c polyneu ropathy
NAIDL,KARI 11/22 [place] [facility] [place] [facility] MTMS BY PHARM ADDL 15 MIN [id number] Diagnos is: ICD-10- CM E11.42 Type 2 diabete s mellitu s with diabeti c polyneu ropathy
NAIDL,KARI 01/17 [place] [facility] [place] [facility] Outpatient Encounter [id number] Diagnos is: ICD-10- CM E11.42 Type 2 diabete s mellitu s with diabeti c polyneu ropathy
MILAGRO TONEY 01/18 [place] [facility] [place] [facility] QNHP OL DIG ASSMT&MGMT 5-10 [id number] Diagnos is: ICD-10- CM E11.42 Type 2 diabete s mellitu s with diabeti c polyneu ropathy
MOE CHOWDHURY 01/18 [place] [facility] [place] [facility] MTMS BY PHARM EST 15 MIN [id number] Diagnos is: ICD-10- CM E11.42 Type 2 diabete s mellitu s with diabeti c polyneu ropathy
YOANDYIDKARI Egan 02/21 [place] [facility] [place] [facility] Outpatient Encounter [id number] RORY CAPPS 02/26 [place] [facility] [place] [facility] Outpatient Encounter [id number] 03/14 [place] [facility] [place] [facility] QNHP OL DIG ASSMT&MGMT 11-20 [id number] Diagnos is: ICD-10- CM E11.42 Type 2 diabete s mellitu s with diabeti c polyneu ropathy
NAIDL,KARI 03/27 [place] [facility] [place] [facility] Outpatient Encounter [id number] 04/16 [place] [facility] [place] [facility] MTMS BY PHARM EST 15 MIN [id number] Diagnos is: ICD-10- CM E11.42 Type 2 diabete s mellitu s with diabeti c polyneu ropathy
NAIDL,KARI 04/26 [place] [facility] [place] [facility] OFFICE O/P EST MOD 30 MIN [id number] Diagnos is: ICD-10- CM E11.42 Type 2 diabete s mellitu s with diabeti c polyneu ropathy
Rhiannon FISH 05/17 [place] [facility] [place] [facility] MTMS BY PHARM EST 15 MIN [id number] Diagnos is: ICD-10- CM E11.42 Type 2 diabete s mellitu s with diabeti c polyneu ropathy
NAIDL,KARI 06/11 [place] [facility] [place] [facility] Outpatient Encounter [id number] 07/01 [place] [facility] [place] [facility] Outpatient Encounter [id number] 07/01 [facility] [place] [facility] MTMS BY PHARM EST 15 MIN [id number] Diagnos is: ICD-10- CM E11.42 Type 2 diabete s mellitu s with diabeti c polyneu ropathy
NAIDL,KARI 07/09 [facility] [place] [facility] Outpatient Encounter [id number] [place] CÁRDENAS I 07/09 [facility] [place] [facility] Outpatient Encounter [id number] ELIZABETH YOO 07/10 [facility] [place] [facility] Outpatient Encounter [id number] ELIZABETH YOO 07/10 [place] [facility] Social History Combined list of available smoking, tobacco, and other social history from Department of Defense and Veterans Affairs facilities. Social History Type Response Date Comment [facility] e Tobacco smoking status [facility]-TOBACCO FORMER USER 05/17/2024 [place] [facility] History of tobacco use [place]-TOBACCO QUIT 1 5 YRS OR MORE 05/17/2024 [facility] History of tobacco use [place]-TOBACCO QUIT 1 5 YRS OR MORE 08/18/2022 [facility] History of tobacco use [facility] FORMER USER 05/03/2021 [facility] History of tobacco use [facility]-TOBACCO FORMER USER 04/21/2020 [facility] History of tobacco use FORMER TOBACCO US E >1Y <7Y 04/03/2018 [facility] History of tobacco use CURRENT TOBACCO USER 03/09/2007 [facility] Plan of Care List of future care activities from [facility] facilities. Additional future care activities may be listed in the Assessment and Plan section. Date/Time Care Activity Care Activity Detail Facili ty 08/14/2024 AMBULATORY - NONE AMBULATORY - NONE [facility] Advance Directives List of completed, amended, or rescinded Advance Directives on record at [facility] facilities. An actual copy of the Directive is not included. Date Advance Directive Provider Source 06/22/2021 ADVANCE DIRECTIVE DISCUSSION ALLYSON GRAF [facility] 06/22/2021 ADVANCE DIRECTIVE ALLYSON GRAF [facility] 03/09/2007 [facility]ANCE [facility]IVE [facility]
--- OUTSIDE RECORDS SUMMARY | 2024-07-11 07:57 | XMS_ITS | Encounter Summary ---
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 [place] [facility] Address [address] [place] [address] Care Team Providers Care Manager Massage Department Name Role Phone CHARLEE FISH Primary Care [...] MEDIC ARE SUPPL EMENT Jul 31, 2018 [id number] [phone] RENKANE LUGO ALEX PATIENT [place] MED[place] SUPPLEMEN [place] MEDIC ARE SUPPL EMENT Jul 31, 2018 [id number] [phone] RENBRITTNEY,JU ALEX PATIENT [place] M[place] ([place] MEDICARE ADVANTAGE MCR (WNR) Jul 31, 2017 [id number] [phone] RENAUX,JU ALEX PATIENT [place] MEDICARE SUPPLEMEN [place]OT MEDIC ARE SUPPL EMENT Jul 31, 2018 [id number] [phone] RENAUX,JU ALEX PAT[place] SUPPLEMEN [place] MEDIC ARE SUPPL EMENT Jul 31, 2018 [id number] [phone] RENAUX,JU ALEX PATIENT MEDICARE (WNR) MEDICARE (M) PART A May 31, 2011 PART A [id number] [phone] KANE PÉREZ PATIENT MEDICARE (WNR) MEDICARE (M) PART B May 31, 2011 PART B [id number] [phone] KANE PÉREZ PATIENT Selected Encounter This section includes the information on record at [place] for the Encounter. Date/Time Encounter Type Encounter Description Reason Provider Source Jul 11, 2023 03:30 PM HC PRO PHONE CALL 21-30 MIN TELEPHONE PRIMARY CARE ICD-10-CM E11.42 Type 2 diabetes mellitus with diabetic polyneuropathy KARI BRITO [facility] Encounter Template Text not used by [place] Assessments - Encounter Diagnoses This section includes the primary and secondary diagnoses documented for the Encounter. Date/Time Primary/Secondary Diagnosis Diagnosis Name Provider Source Jul 11, 2023 03:30 PM PRIMARY Type 2 diabetes mellitus with diabetic polyneuropathy KARI BRITO [facility] Plan of Treatment: Future Appointments (+ 6 months) and Future Tests (+/- 45 days) The Plan of Treatment section includes future care activities for the patient from all [place] treatmentfaciluab hospital. This section includes future appointments and future orders which are active, pending or scheduled. Future Appointments This section includes appointments that were scheduled to occur 6 months from the date of the Encounter, up to a maximum of 20 appointments. The data comes from all [place] treatment facilities. Appointment Date/Time Appointment Type Appointme nt Facility Name Aug 29, 2023 03:30 PM AMBULATORY - NONE [facility] Oct 11, 2023 03:30 PM AMBULATORY - NONE [facility] Nov 23, 2023 03:30 PM AMBULATORY - NONE [facility] December 02, 2023 07:01 AM AMBULATORY - NONE [facility] Social History: Smoking Status (Most current) and Tobacco Use (All prior to encounter date) This section includes the most current, and the historical, smoking and tobacco- related health factors from the [place] facility where the Encounter took place. Current Smoking Status This section includes the most current smoking, or tobacco-related health factor, from the [place] facility where the Encounter took place. Date/Time Current Smoking Status Quique peng Aug 18, 2022 08:30 AM [place]-TOBACCO QUIT 15 YRS OR MORE [facility] Tobacco Use History This section includes a history of the smoking, or tobacco-related health factors, that were collected on or before the date of the Encounter. The data comes from the [place] facility where the Encounter took place. Date/Time Smoking Status/Tobacco Use Comment F acility Aug 18, 2022 08:30 AM [place]-TOBACCO QUIT 15 YRS OR MORE [facility] May 03, 2021 08:00 AM VA-TOBACCO FORMER USER [facility] May 03, 2021 08:00 AM VA-TOBACCO QUIT 15 YRS OR MORE [facility] Apr 21, 2020 09:00 AM VA-TOBACCO FORMER USER [facility] Apr 21, 2020 09:00 AM VA-TOBACCO QUIT 15 YRS OR MORE [facility] Apr 03, 2018 03:16 PM FORMER TOBACCO USE >1Y <7Y [facility] Mar 09, 2007 10:41 AM CURRENT TOBACCO USER [facility] Advance Directives: All historical and current Section Date Range: From patient's date of to the date document was created. This section includes ALL of a patient's completed or amended [place] Advance and Rescinded Directives. The entries below indicate that a directive exists for the patient, but an actual copy is not included with this document. The data comes from all [facility]. 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
--- OUTSIDE RECORDS SUMMARY | 2024-07-11 07:58 | XMS_ITS | Encounter Summary ---
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 [facility] [place] Address [address] [place] [address] Care Team Providers Care Academic Support Assistant Name Role Phone CHARLEE FISH Primary [...] MEDIC ARE SUPPL EMENT Jul 31, 2018 [id number] [phone] RENKANE LUGO [place] SU[place] MEDIC ARE SUPPL EMENT Jul 31, 2018 [id number] [phone] RENBRITTNEY,JU ALEX PAT[place] [facility] (WNR) MEDICARE ADVANTAGE [facility] (WNR) Jul 31, 2017 [id number] [phone] RENAUX,JU ALEX PATIENT [place] MED[place] SUPPLEMEN [place]OT MEDIC ARE SUPPL EMENT Jul 31, 2018 [id number] RENAUX,JU A[place] MEDIC ARE SUPPL EMENT Jul 31, 2018 [id number] [phone] RENAUX,JU ALEX PATIENT MEDICARE (WNR) MEDICARE (M) PART A May 31, 2011 PART A [id number] [phone] KANE PÉREZ PATIENT MEDICARE (WNR) MEDICARE (M) PART B May 31, 2011 PART B [id number] [phone] KANE PRÉEZ PATIENT Selected Encounter This section includes the information on record at [place] for the Encounter. Date/Time Encounter Type Encounter Description Reason Provider Source Oct 11, 2023 03:30 PM MTMS BY CELESTE SUAREZ 15 MIN TELEPHONE PRIMARY CARE ICD-10-CM E11.42 Type 2 diabetes mellitus with diabetic polyneuropathy SOLEDAD ELLIS [facility] Encounter Template Text not used by [place] Assessments - Encounter Diagnoses This section includes the primary and secondary diagnoses documented for the Encounter. Date/Time Primary/Secondary Diagnosis Diagnosis Name Provider Source Oct 11, 2023 03:30 PM PRIMARY Type 2 diabetes mellitus with diabetic polyneuropathy SOLEDAD ELLIS [facility] Plan of Treatment: Future Appointments (+ 6 months) and Future Tests (+/- 45 days) The Plan of Treatment section includes future care activities for the patient from all [place] [facility] This section includes future appointments and future orders which are active, pending or scheduled. Future Appointments This section includes appointments that were scheduled to occur 6 months from the date of the Encounter, up to a maximum of 20 appointments. The data comes from all [place] treatment facilities. Appointment Date/Time Appointment Type Appointme nt Facility Name Nov 23, 2023 03:30 PM [place] [facility] December 02, 2023 07:01 AM [place] [facility] Jan 18, 2024 04:00 PM [place] [facility] Feb 22, 2024 04:00 PM [place] [facility] Apr 09, 2024 09:00 AM [place] [facility] Apr 12, 2024 11:30 AM [place] [facility] Social History: Smoking Status (Most current) and Tobacco Use (All prior to encounter date) This section includes the most current, and the historical, smoking and tobacco- related health factors from the [place] facility where the Encounter took place. Current Smoking Status This section includes the most current smoking, or tobacco-related health factor, from the [place] facility where the Encounter took place. Date/Time Current Smoking Status Comment Facil ity Aug 18, 2022 08:30 AM VA-TOBACCO FORMER USER [facility] Tobacco Use History This section includes a history of the smoking, or tobacco-related health factors, that were collected on or before the date of the Encounter. The data comes from the [place] facility where the Encounter took place. Date/Time [...] ALL of a patient's completed or amended [place] Advance and Rescinded Directives. The entries below indicate that a directive exists for the patient, but an actual copy is not included with this document. The data comes from all [place] facilities. Date Advance Directives Provider Source Jun 22, 2021 ADVANCE DIRECTIVE DISCUSSION ALLYSON GRAF [facility] Jun 22, 2021 ADVANCE DIRECTIVE ALLYSON GRAF [facility] Mar 09, 2007 ADVANCE DIRECTIVE SOLEDAD WOLFF [facility] Encounter Notes: All associated encounter notes This section contains the clinical notes associated to the Encounter. Date/Time Encounter Note(s) Provider Source Oct 11, 2023 03:39 PM PHARMACY NOTE: LOCAL TITLE: PHARMACOTHERAPY-CLINICAL PHARMACY NOTE STANDARD TITLE: PHARMACY NOTE DATE OF NOTE: OCT 11, 2023@15:39 ENTRY DATE: OCT 11, 2023@15:39:34 AUTHOR: SOLEDAD ELLIS COSIGNER: URGENCY: STATUS: COMPLETED Visit type: phone [...] his foot since Jun 2022. going to [facility] each week. 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 -- sandwich or fruit/cheese Snacks: more cookies [...] AM 12-Sep 128 11-Sep 157 10-Sep 108 9-Sep 100 8-Sep 7-Sep 6-Sep 93 5-Sep 151 4-Sep 132 3-Sep 2-Sep 129 1-Sep 132 29-Feb 120 28-Feb 133 27-Feb 112 26-Feb 25-Feb 121 24-Feb 109 23-Feb 115 22-b 147 21-b 101 20-b 96 19-b 110 avg 121 ------Previous Readings-------- Jul f/u av Dec f/u ave: 139 Mar f/u ave: 124 Aug f/u ave: 138 Adherence to medications: no [...] -continue metformin 1000mg BID -continue semaglutide 1mg [id number] #Disease-Specific Med Rec: Completed today #Labs: vet to have A1c done nonVA next week - Educated vet on indication/risks/benefits of new/changed medication. - Education provided on therapeutic nonpharmacologic management to achieve goals. - Vet advised of recent labs. - Thayer verbalized understanding to all plans discussed today. Questions were answered to vet's satisfaction. Time spent: 15 minutes RTC: 4-6 weeks /toby/ SOLEDAD ELLIS PHARM.DTiny, BCPS [facility] Clinical [employer] Signed: 10/11/2023 16:[address] [facility]
--- OUTSIDE RECORDS SUMMARY | 2024-07-11 07:59 | XMS_ITS | Encounter Summary ---
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 Organization [facility] [place] Address [address] [place] [address] Care Team Providers Care Insurance Claims Processor Name Role Phone CHARLEE FISH Primary Care [...] MEDIC ARE SUPPL EMENT Jul 31, 2018 [id number] [phone] RENBRITTNEY,KANE A[place] MEDIC ARE SUPPL EMENT Jul 31, 2018 [id number] [phone] RENAUX,JU [place] [facility] [place]) MEDICARE ADVANTAGE [facility] (WNR) Jul 31, 2017 [id number] [phone] RENAUX,JU ALEX PATIENT [place] MED[place] SUPP[place] MEDIC ARE SUPPL EMENT Jul 31, 2018 [id number] RENAUX,JU ALEX [place] MED[place] MEDIC ARE SUPPL EMENT Jul 31, 2018 [id number] [phone] RENAUX,JU ALEX PATIENT MEDICARE (WNR) MEDICARE (M) PART A May 31, 2011 PART A [id number] [phone] KANE PÉREZ PATIENT MEDICARE (WNR) MEDICARE (M) PART B May 31, 2011 PART B [id number] [phone] KANE PÉREZ PATIENT Selected Encounter This section includes the information on record at [place] for the Encounter. Date/Time Encounter Type Encounter Description Reason Provider Source Nov 23, 2023 03:30 PM MTMS BY CELESTE PEARL 15 MIN TELEPHONE PRIMARY CARE ICD-10-CM E11.42 Type 2 diabetes mellitus with diabetic polyneuropathy KARI BRITO [facility] Encounter Template Text not used by [place] Assessments - Encounter Diagnoses This section includes the primary and secondary diagnoses documented for the Encounter. Date/Time Primary/Secondary Diagnosis Diagnosis Name Provider Source Nov 23, 2023 03:30 PM PRIMARY Type 2 diabetes mellitus with diabetic polyneuropathy KARI BRITO [facility] Plan of Treatment: Future Appointments (+ [...] 07:01 AM [place]ONE [place] [facility] Jan 18, 2024 04:00 PM [place]ORY - [place]ONE [place] [facility] Feb 22, 2024 04:00 PM [place]ORY - [place]ONE [place] [facility] Apr 09, 2024 09:00 AM [place]ORY - [place]ONE [place] [facility] Apr 12, 2024 11:30 AM [place]ORY [place]ONE [place] [facility] Apr 17, 2024 01:30 PM [place] - [place]ONE [place] [facility] Apr 26, 2024 01:30 PM [place] - [place] [facility] May 17, 2024 02:00 PM [place] [facility] May 17, 2024 02:45 PM AM[facility]UL[facility]ORY - [facility] Social History: Smoking Status (Most current) [...] AM VA-TOBACCO QUIT 15 YRS OR MORE [facility] Tobacco Use History This section includes a history of the smoking, or tobacco-related health factors, that were collected on or before the date of the Encounter. The data comes from the [place] facility where the Encounter took place. Date/Time Smoking Status/Tobacco Use Comment F acility Aug 18, 2022 08:30 AM VA-TOBACCO QUIT 15 YRS OR MORE [facility] May 03, 2021 08:00 AM VA-TOBACCO FORMER USER [facility] May 03, 2021 08:00 AM VA-TOBACCO QUIT 15 YRS OR MORE [facility] Apr 21, 2020 09:00 AM VA-TOBACCO FORMER USER [facility] Apr 21, 2020 09:00 AM VA-TOBACCO QUIT 15 YRS OR MORE [facility] Apr 03, 2018 03:16 PM FORMER TOBACCO USE >1Y <7Y [facility] Mar 09, 2007 10:41 AM CURRENT TOBACCO USER [facility] Advance Directives: All historical and current Section Date Range: From patient's date of to the date document was created. This section includes ALL of a patient's completed or amended [place] Advance and Rescinded Directives. The entries below indicate that a directive exists for the patient, but an actual copy is not included with this document. The data comes from all [facility]. 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 - Allyn verbalized understanding to all plans discussed today. Questions were answered to vet's satisfaction. Time spent: 21 minutes RTC: - 01/17 pharmD phone prefers to avoid [facility]-only has a cellphone /toby/ KARI BRITO PHARM D, BCPS Clinical Pharmacist Practitioner-[facility] Signed: 11/24/2023 07:52 KARI BRITO [facility]
--- OUTSIDE RECORDS SUMMARY | 2024-07-11 07:59 | XMS_ITS | Encounter Summary ---
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 Organization [place] Address [address] [place] [address] Care Team Providers Care Talent Rep Name Role Phone CHARLEE FISH Primary Care [...] MEDIC ARE SUPPL EMENT Jul 31, 2018 [id number] RENKANE LUGO [place] MED[place] ARE SUPPL EMENT Jul 31, 2018 [id number] [phone] RENBRITTNEY,JU ALEX [place] [facility] (WNR) MEDICARE ADVANTAGE [facility] (WNR) Jul 31, 2017 [id number] [phone] RENAUX,JU ALEX PAT[place] MED[place] MEDIC ARE SUPPL EMENT Jul 31, 2018 [id number] RENAUX,JU ALEX [place] MEDIC ARE SUPPL EMENT Jul 31, 2018 [id number] [phone] RENAUX,JU ALEX PATIENT MEDICARE (WNR) MEDICARE (M) PART B May 31, 2011 PART B [id number] KANE PÉREZ PATIENT MEDICARE (WNR) MEDICARE (M) PART A May 31, 2011 PART A [id number] [phone] KANE PÉREZ PATIENT Selected Encounter This section includes the information on record at [place] for the Encounter. Date/Time Encounter Type Encounter Description Reason Provider Source Nov 07, 2023 12:08 PM MTMS BY PHARM ERICK 15 MIN TELEPHONE PRIMARY CARE ICD-10-CM E11.621 Type 2 diabetes mellitus with foot ulcer KRAI BRITO [facility] Encounter Template Text not used by [place] Assessments - Encounter Diagnoses This section includes the primary and secondary diagnoses documented for the Encounter. Date/Time Primary/Secondary Diagnosis Diagnosis Name Provider Source Nov 07, 2023 12:08 PM PRIMARY Type 2 diabetes mellitus with foot ulcer DARYLKARI [facility] Plan of Treatment: Future Appointments (+ 6 months) and Future Tests (+/- 45 days) The Plan of Treatment section includes future care activities for the patient [facility] [place] [facility]. This section includes future appointments and [...] 03:30 PM [facility]ORY - [place]ONE [place] [facility] December 02, 2023 07:01 AM AM[place]ORY - NONE [place] [facility] Jan 18, 2024 04:00 PM [place]ORY - NONE [place] [facility] Feb 22, 2024 04:00 PM [place]ORY - [place] [facility] Apr 09, 2024 09:00 AM [place]ORY [place] [facility] Apr 12, 2024 11:30 AM [place]ORY - [place] [facility] Apr 17, 2024 01:30 PM [place] - [place] [facility] Apr 26, 2024 01:30 PM [place] - [place] [facility] Social History: Smoking Status (Most current) [...] 2022 08:30 AM VA-TOBACCO FORMER USER [facility] Tobacco Use History This section includes a history of the smoking, or tobacco-related health factors, that were collected on or before the date of the Encounter. The data comes from the [place] facility where the Encounter took place. Date/Time Smoking Status/Tobacco Use Comment F acility Aug 18, 2022 08:30 AM VA-TOBACCO QUIT 15 YRS OR MORE [facility] May 03, 2021 08:00 AM VA-TOBACCO FORMER USER [facility] May 03, 2021 08:00 AM VA-TOBACCO QUIT 15 YRS OR MORE [facility] Apr 21, 2020 09:00 AM VA-TOBACCO FORMER USER [facility] Apr 21, 2020 09:00 AM VA-TOBACCO QUIT 15 YRS OR MORE [facility] Apr 03, 2018 03:16 PM FORMER TOBACCO USE >1Y <7Y [facility] Mar 09, 2007 10:41 AM CURRENT TOBACCO USER [facility] Advance Directives: All historical and current Section Date Range: From patient's date of to the date document was created. This section includes ALL of a patient's completed or amended [place] Advance and Rescinded Directives. The entries below indicate that a directive exists for the patient, but an actual copy is not included with this document. The data comes from all [facility]. Date Advance Directives Provider Source Jun 22, 2021 ADVANCE DIRECTIVE DISCUSSION ALLYSON GRAF [facility] Jun 22, 2021 ADVANCE DIRECTIVE ALLYSON GRAF [facility] Mar 09, 2007 ADVANCE DIRECTIVE SOLEDAD [...] KARI BRITO COSIGNER: URGENCY: STATUS: COMPLETED BACKGROUND: MIGUELINA PÉREZBANK is a 78 YO MALE contacted by phone for medication management, mainly for DM. PMH is significant for T2DM with chronic foot infections, GERD, and HLD. 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 (-) hyperglycemia symptoms SMBG Readings: AM 11/06 145/ 4/8 203/ 4/7 4/6 218/ 4/5 196/ 4/4 4/3 230/ 4/2 10/29 ave: 198 *reports getting [...] Time spent: 15 minutes RTC: - 11/22 pharmD phone prefers to avoid [facility]-only has a cellphone /toby/ KARI BRITO PHARM D, BCPS Clinical Pharmacist Practitioner-[facility] Signed: 11/07/2023 13:33 KARI BRITO [facility]
--- OUTSIDE RECORDS SUMMARY | 2024-07-11 07:59 | XMS_ITS | Encounter Summary ---
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 Address [address] [place] [address] Care Team Providers Care Security Sme Name Role Phone CHARLEE FISH Primary Care Provider [facility] Insurance Providers: All historical and [...] MEDIC ARE SUPPL EMENT Jul 31, 2018 [id number] KANE PÉREZ ALEX [place]IENT [place] MEDIC ARE SUPPL EMENT Jul 31, 2018 [id number] [phone] RENBRITTNEY,JU ALEX PATIENT [place]) MEDICARE ADVANTAGE [facility] (WNR) Jul 31, 2017 [id number] [phone] RENBRITTNEY,KANE ALEX PATIENT [place] MED[place]PP[place] MEDIC ARE SUPPL EMENT Jul 31, 2018 [id number] RENBRITTNEY,KANE ALEX PAT[place] MEDIC ARE SUPPL EMENT Jul 31, 2018 [id number] [phone] KANE PÉREZ PATIENT MEDICARE (WNR) MEDICARE (M) PART A May 31, 2011 PART A [id number] [phone] KANE PÉREZ PATIENT MEDICARE (WNR) MEDICARE (M) PART B May 31, 2011 PART B [id number] [phone] KANE PÉREZ PATIENT Selected Encounter This section includes the information on record at [place] for the Encounter. Date/Time Encounter Type Encounter Description Reason Provider Source Jan 19, 2024 09:01 AM QNHP OL DIG ASSMT&MGMT 5-10 CLINICAL PHARMACY ICD-10-CM E11.42 Type 2 diabetes mellitus with diabetic polyneuropathy HUBERT CHOWDHURY [facility] Encounter Template Text not used by [place] Assessments - Encounter Diagnoses This section includes the primary and secondary diagnoses documented for the Encounter. Date/Time Primary/Secondary Diagnosis Diagnosis Name Provider Source Jan 19, 2024 09:04 AM PRIMARY Type 2 diabetes mellitus with diabetic polyneuropathy HUBERT CHOWDHURY [facility] Plan of Treatment: Future Appointments (+ 6 months) and Future Tests (+/- 45 days) The Plan of Treatment section includes future care activities for the patient from all [place] [facility] This section includes future appointments and [...] 04:00 PM [place]ONE [place] [facility] Apr 09, 2024 09:00 AM AM[place]ORY - [place]ONE [place] [facility] Apr 12, 2024 11:30 AM AM[place]ORY - NONE [place] [facility] Apr 17, 2024 01:30 PM [place]ORY - [place]ONE [place] [facility] Apr 26, 2024 01:30 PM [place]ORY - [place]ONE [place] [facility] May 17, 2024 02:00 PM [place] - [place]ONE [place] [facility] May 17, 2024 02:45 PM [place]IC[place] [facility] Jun 11, 2024 11:30 AM [place]ONE [place] [facility] Jul 09, 2024 11:30 AM [place]ONE [place] [facility] Social History: Smoking Status (Most [...] Facil ity Aug 18, 2022 08:30 AM [place]-TOBACCO QUIT 15 YRS OR MORE [facility] Tobacco Use History This section includes a history of the smoking, or tobacco-related health factors, that were collected on or before the date of the Encounter. The data comes from the [place] facility where the Encounter took place. Date/Time Smoking Status/Tobacco Use Comment F acility Aug 18, 2022 08:30 AM VA-TOBACCO QUIT 15 YRS OR MORE [facility] May 03, 2021 08:00 AM VA-TOBACCO FORMER USER [facility] May 03, 2021 08:00 AM VA-TOBACCO QUIT 15 YRS OR MORE [facility] Apr 21, 2020 09:00 AM VA-TOBACCO FORMER USER [facility] Apr 21, 2020 09:00 AM VA-TOBACCO QUIT 15 YRS OR MORE [facility] Apr 03, 2018 03:16 PM FORMER TOBACCO USE >1Y <7Y [facility] Mar 09, 2007 10:41 AM CURRENT TOBACCO USER [facility] Advance Directives: All historical and current Section [...] 2021 ADVANCE DIRECTIVE ALLYSON GRAF [facility] Mar 09, 2007 ADVANCE DIRECTIVE SOLEDAD WOLFF [facility] Encounter Notes: All associated encounter [...] 500 MG MOUTH TWICE A DAY ACTIVE /es/ Hubert Chowdhury, Pharm.D PHARMACIST Signed: 01/19/2024 09:04 HUBERT CHOWDHURY [facility]
--- OUTSIDE RECORDS SUMMARY | 2024-07-11 07:59 | XMS_ITS | Encounter Summary ---
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 Organization [facility] [place] Address [address] [place] [address] Care Team Providers Care Embedded Systems Designer Name Role Phone CHARLEE FISH Primary Care [...] MEDIC ARE SUPPL EMENT Jul 31, 2018 [id number] RENKANE LUGO [place] SU[place] MEDIC ARE SUPPL EMENT Jul 31, 2018 [id number] [phone] RENBRITTNEY,JU ALEX PAT[place] [facility] (WNR) MEDICARE ADVANTAGE [facility] (WNR) Jul 31, 2017 [id number] [phone] RENAUX,JU ALEX PATIENT [place] MED[place] SUPPLEMEN [place]OT MEDIC ARE SUPPL EMENT Jul 31, 2018 [id number] RENAUX,JU A[place] MEDIC ARE SUPPL EMENT Jul 31, 2018 [id number] [phone] RENAUX,JU ALEX PATIENT MEDICARE (WNR) MEDICARE (M) PART A May 31, 2011 PART A [id number] [phone] KANE PÉREZ PATIENT MEDICARE (WNR) MEDICARE (M) PART B May 31, 2011 PART B [id number] KANE PÉREZ PATIENT Selected Encounter This section includes the information on record at [place] for the Encounter. Date/Time Encounter Type Encounter Description Reason Provider Source Feb 22, 2024 04:00 PM MTMS BY PHARM ERICK 15 MIN TELEPHONE PRIMARY CARE ICD-10-CM E11.42 Type 2 diabetes mellitus with diabetic polyneuropathy KARI BRITO [facility] Encounter Template Text not used by [place] Assessments - Encounter Diagnoses This section includes the primary and secondary diagnoses documented for the Encounter. Date/Time Primary/Secondary Diagnosis Diagnosis Name Provider Source Feb 22, 2024 04:00 PM PRIMARY Type 2 diabetes mellitus with diabetic polyneuropathy KARI BRIOT [facility] Plan of Treatment: Future Appointments (+ 6 months) and Future Tests (+/- 45 days) The Plan of Treatment section includes future care activities for the patient from all [place] [facility] This section includes future appointments and future [...] 09:00 AM [place] [facility] Apr 12, 2024 11:30 AM [place] [facility] Apr 17, 2024 01:30 PM [place] [facility] Apr 26, 2024 01:30 PM [place] [facility] May 17, 2024 02:00 PM [place]ORY [place] [facility] May 17, 2024 02:45 PM AMBULATORY - MEDICINE MINKimberly MONZON [facility] Jun 11, 2024 11:30 AM [place]ONE [place] [facility] Jul 09, 2024 11:30 AM [place] - [place]ONE [place] [facility] Aug 14, 2024 11:30 AM [place] - NONE [place] [facility] Social History: Smoking Status [...] Diego ity Aug 18, 2022 08:30 AM VA-TOBACCO FORMER USER [facility] Tobacco Use History This section includes a history of the smoking, or tobacco-related health factors, that were collected on or before the date of the Encounter. The data comes from the [facility] where the Encounter took place. Date/Time Smoking Status/Tobacco Use Comment F acility Aug 18, 2022 08:30 AM VA-TOBACCO QUIT 15 YRS OR MORE [facility] May 03, 2021 08:00 AM VA-TOBACCO FORMER USER [facility] May 03, 2021 08:00 AM VA-TOBACCO QUIT 15 YRS OR MORE [facility] Apr 21, 2020 09:00 AM VA-TOBACCO FORMER USER [facility] Apr 21, 2020 09:00 AM VA-TOBACCO QUIT 15 YRS OR MORE [facility] Apr 03, 2018 03:16 PM FORMER TOBACCO USE >1Y <7Y [facility] Mar 09, 2007 10:41 AM CURRENT TOBACCO USER [facility] Advance Directives: All historical and current Section Date Range: From patient's date of to the date document was created. This section includes ALL of a patient's completed or amended [place] Advance and Rescinded Directives. The entries below indicate that a directive exists for the patient, but an actual copy is not included with this document. The data comes from all [facility]. Date Advance Directives Provider Source Jun 22, 2021 ADVANCE DIRECTIVE DISCUSSION ALLYSON GRAF [facility] Jun 22, 2021 ADVANCE DIRECTIVE ALLYSON GRAF [facility] Mar 09, 2007 ADVANCE DIRECTIVE SOLEDAD WOLFF [facility] Encounter Notes: All associated encounter notes This section contains the clinical notes associated to the Encounter. 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 other [...] ALB/CREAT RATIO,U 9.70 mg/gCreat 0 - 30 [email or web address].comstyle Ashley 3 (Smart Phone Marli) Glucose Monitoring [...] approved for use on other sites.) 2. [employer] Freestyle Ashley Sensor was inserted subcutaneously via insertion device without issue by . 3. Discussed the need to change the sensor every 14 days. If adhesive does not stick and sensor falls off before 14 days, is to simply replace with a new sensor. [place] is instructed to then contact [employer] Customer () Service at to report this to the company. FREESTYLE ASHLEY 3 MARLI using SMART PHONE: 1. Marli was downloaded to FluxDrive phone from marli store ([employer] or [employer]) 2. Account is set up with username and password established. 3. Patient was given the [place] Practice ID: [email or web address] or emailed an invitation through [employer] to share data with [facility]. *Counseled on using same email for all [employer] or [employer] accounts. 4. Tutorial is reviewed at initiation [...] every 14 days. Additional Information Provided: 1. [place] instructed not to go through MRI or [...] 30 minutes at 3 feet of water. Community Health Coordinator is NOT waterproof. 8. Reviewed the use [...] having technical issues with the marli contact [facility]: [phone]. If you are unable to upload your device from home or share your data via your smartphone then you will need to be seen in clinic to upload your device at scheduled intervals as part of your agreement to receive CGM supplies and support through the [place]. [place] or entry level account representative verbalized understanding. ASSESSMENT: #T2DM with a positive c-peptide -Goal A1c <8% (FBG 80-160, PPG <210) per [place]/DoD guidelines. Last A1c was up and just [...] - Vet advised of recent labs. - [place] verbalized understanding to all plans discussed today. Questions were answered to vet's satisfaction. Time spent: 30 minutes RTC: - 03/27 pharmD phone prefers to avoid [facility]-only has a cellphone /toby/ KARI BRITO PHARM D, BCPS Clinical Pharmacist Practitioner-4D PACT Clinic Signed: 02/23/2024 08:40 KARI BRITO [facility]
--- OUTSIDE RECORDS SUMMARY | 2024-07-11 07:59 | XMS_ITS | Encounter Summary ---
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 Organization [place] Address [address] [place] [address] Care Team Providers Care Green Chain Operator Name Role Phone CHARLEE FISH Primary [...] MEDIC ARE SUPPL EMENT Jul 31, 2018 [id number] RENKANE LUGO [place] MEDIC ARE SUPPL EMENT Jul 31, 2018 [id number] [phone] RENBRITTNEY,JU [place] [facility] (WNR) MEDICARE ADVANTAGE [facility] (WNR) Jul 31, 2017 [id number] [phone] RENAUX,JU ALEX PATIENT [place] SUPPLEMEN [place]OT MEDIC ARE SUPPL EMENT Jul 31, 2018 [id number] RENAUX,JU A[place] MEDIC ARE SUPPL EMENT Jul 31, 2018 [id number] [phone] RENBRITTNEY,JU ALEX PATIENT MEDICARE (WNR) MEDICARE (M) PART A May 31, 2011 PART A [id number] [phone] KANE PÉREZ PATIENT MEDICARE (WNR) MEDICARE (M) PART B May 31, 2011 PART B [id number] [phone] KANE PÉREZ PATIENT Selected Encounter This section includes the information on record at [place] for the Encounter. Date/Time Encounter Type Encounter Description Reason Provider Source Jan 19, 2024 08:08 AM Outpatient Encounter ENDOCRINOLOGY ICD-10-CM E11.42 Type 2 diabetes mellitus with diabetic polyneuropathy Cynthia TONEY Candy Encounter Template Text not used by [place] Assessments - Encounter Diagnoses This section includes the primary and secondary diagnoses documented for the Encounter. Date/Time Primary/Secondary Diagnosis Diagnosis Name Provider Source Jan 19, 2024 08:11 AM PRIMARY Type 2 diabetes mellitus with diabetic polyneuropathy JESSICA LUGO [facility] Plan of Treatment: Future Appointments (+ 6 months) and Future Tests (+/- 45 days) The Plan of Treatment section includes future care activities for the patient from all [place] [facility]. This section includes future appointments and future orders which are active, pending or scheduled. Future Appointments This section includes appointments that were scheduled to occur 6 months from the date of the Encounter, up to a maximum of 20 appointments. The data comes from all [place] treatment facilities. Appointment Date/Time Appointment Type Appointme nt Facility Name Feb 22, 2024 04:00 PM [place]ORY [place]ONE [place] [facility] Apr 09, 2024 09:00 AM [place]ORY [place] [facility] Apr 12, 2024 11:30 AM [place]ORY [place]ONE [place] [facility] Apr 17, 2024 01:30 PM [place]ORY - NONE [place] [facility] Apr 26, 2024 01:30 PM [facility]ORY - NONE [place] [facility] May 17, 2024 02:00 PM [place]ORY [place] [facility] May 17, 2024 02:45 PM AMBULATORY - MEDICINE [place]AY[place] [facility] Jun 11, 2024 11:30 AM [place]ORY [place] NONE [place] [facility] Jul 09, 2024 11:30 AM [place] - [place]ONE [place] [facility] Social History: Smoking Status (Most current) and Tobacco Use (All prior to encounter date) This section includes the most current, and the historical, smoking and tobacco- related health factors from the [place] facility where the Encounter took place. Current Smoking Status This section includes the most current smoking, or tobacco-related health factor, from the [place] facility where the Encounter took place. Date/Time Current Smoking Status Comment Facil ity Aug 18, 2022 08:30 AM VA-TOBACCO FORMER USER [facility] Tobacco Use History This section includes a history of the smoking, or tobacco-related health factors, that were collected on or before the date of the Encounter. The data comes from the [place] facility where the Encounter took place. Date/Time Smoking Status/Tobacco Use Comment F acility Aug 18, 2022 08:30 AM VA-TOBACCO QUIT 15 YRS OR MORE [facility] May 03, 2021 08:00 AM VA-TOBACCO FORMER USER [facility] May 03, 2021 08:00 AM VA-TOBACCO QUIT 15 YRS OR MORE [facility] Apr 21, 2020 09:00 AM VA-TOBACCO FORMER USER [facility] Apr 21, 2020 09:00 AM VA-TOBACCO QUIT 15 YRS OR MORE [facility] Apr 03, 2018 03:16 PM FORMER TOBACCO USE >1Y <7Y [facility] Mar 09, 2007 10:41 AM CURRENT TOBACCO USER [facility] Advance Directives: All historical and current Section Date Range: From patient's date of to the date document was created. This section includes ALL of a patient's completed or amended [place] Advance and Rescinded Directives. The entries below indicate that a directive exists for the patient, but an actual copy is not included with this document. The data comes from all [facility]. Date Advance Directives Provider Source Jun 22, 2021 ADVANCE DIRECTIVE DISCUSSION ALLYSON GRAF [facility] Jun 22, 2021 ADVANCE DIRECTIVE ALLYSON GRAF [facility] Mar 09, 2007 ADVANCE DIRECTIVE SOLEDAD WOLFF [facility] Encounter Notes: All associated encounter notes This [...] and outside records if available. Treatment by [place] Endocrinology or refractory specialist Diagnosis of Diabetes Mellitus (type I [...] for personal CGM. /toby/ Jessica Lugo RN, [facility] Certified [facility] Technician Signed: 01/19/2024 08:11 JESSICA LUGO [facility]
--- OUTSIDE RECORDS SUMMARY | 2024-07-11 07:59 | XMS_ITS | Encounter Summary ---
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 Organization [place] Address [address] [place] [address] Care Team Providers Care Occupational Therapy Technician Name Role Phone CHARLEE FISH Primary Care [...] MEDIC ARE SUPPL EMENT Jul 31, 2018 [id number] RENKANE LUGO [place] MEDIC ARE SUPPL EMENT Jul 31, 2018 [id number] [phone] RENAUX,JU A[place]IENT [place] [facility] (WNR) MEDICARE ADVANTAGE [facility] (WNR) Jul 31, 2017 [id number] [phone] RENAUX,JU ALEX PATIENT [place] SUPPLEMEN [place]OT MEDIC ARE SUPPL EMENT Jul 31, 2018 [id number] RENAUX,JU ALEX [place]PP[place]MEN [place] MEDIC ARE SUPPL EMENT Jul 31, 2018 [id number] [phone] RENAUX,JU ALEX PATIENT MEDICARE (WNR) MEDICARE (M) PART A May 31, 2011 PART A [id number] [phone] KANE PÉREZ PATIENT MEDICARE (WNR) MEDICARE (M) PART B May 31, 2011 PART B [id number] KANE PÉREZ PATIENT Selected Encounter This section includes the information on record at [place] for the Encounter. Date/Time Encounter Type Encounter Description Reason Pro vider Source Oct 17, 2023 12:44 PM Outpatient Encounter TELEPHONE TRIAGE IHE Encounter Template Text not used by [place] Plan of Treatment: Future Appointments (+ 6 months) and Future Tests (+/- 45 days) The Plan of Treatment section includes future care activities for the patient from all [place] [facility]. This section includes future [...] 03:30 PM [facility] [facility] December 02, 2023 07:01 AM [place]ORY [place]ONE [place] [facility] Jan 18, 2024 04:00 PM [place] [place]ONE [place] [facility] Feb 22, 2024 04:00 PM [facility] [place] [facility] Apr 09, 2024 09:00 AM [facility] [place] [facility] Apr 12, 2024 11:30 AM [place] [place] [facility] Apr 17, 2024 01:30 PM [facility] [place] [facility] Social History: Smoking Status (Most current) and Tobacco Use (All prior to encounter date) This section includes the most current, and the historical, smoking and tobacco- related health factors from the [place] facility where the Encounter took place. Current [...] Jun 22, 2021 ADVANCE DIRECTIVE ALLYSON GRAF [facility] Mar 09, 2007 ADVANCE DIRECTIVE SOLEDAD WOLFF [facility] Encounter Notes: All associated encounter notes [...] Call. Please contact at the following number: [phone] - Cherrie Other: Cherrie, from [facility], would like to be contact to discuss diabetic footwear check up notes. Cherrie would like to discuss with provider who treat his diabetic care. Cherrie would like his last diabetic notes. Fax # [phone]: [phone] This note was created by a 3 [facility] ARABELLA/ROSHNI. Please do not alert this information writer by adding as a signer for future communications. Alerts are not monitored by this user, please reach out to [place] [facility] Leadership instead if indicated. /peyton CLOUD VSN [facility] Signed: 10/17/2023 12:48 Receipt Acknowledged By: 10/17/2023 16:27 /peyton BRITO, PHARM D, BCPS Clinical Pharmacist Practitioner-4D [facility] Clinic 10/17/2023 ADDENDUM STATUS: COMPLETED attempted to reach cherrie--message left to CB. /peyton BRITO, PHARM D, BCPS Clinical Pharmacist Practitioner-4D PACT Clinic Signed: 10/17/2023 16:28 LILIBETH CLOUD [facility]
--- OUTSIDE RECORDS SUMMARY | 2024-07-11 07:59 | XMS_ITS | Encounter Summary ---
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 Organization [place] Address [address] [place] [address] Care Team Providers Care Sizer Machine Name Role Phone CHARLEE FISH Primary Care [...] MEDIC ARE SUPPL EMENT Jul 31, 2018 [id number] RENBRITTNEY,KANE ALEX [place] MEDIC ARE SUPPL EMENT Jul 31, 2018 [id number] [phone] RENAUX,JU A[place] [facility] [place]) MEDICARE ADVANTAGE [facility] (WNR) Jul 31, 2017 [id number] [phone] RENAUX,JU ALEX PATIENT [place] SUPPLEMEN [place] MEDIC ARE SUPPL EMENT Jul 31, 2018 [id number] RENAUX,JU ALEX [place] MEDIC ARE SUPPL EMENT Jul 31, 2018 [id number] [phone] RENAUX,JU ALEX PATIENT MEDICARE (WNR) MEDICARE (M) PART A May 31, 2011 PART A [id number] KANE PÉREZ PATIENT MEDICARE (WNR) MEDICARE (M) PART B May 31, 2011 PART B [id number] KANE PÉREZ PATIENT Selected Encounter This section includes the information on record at [place] for the Encounter. Date/Time Encounter Type Encounter Description Reason Provider Source Jan 18, 2024 04:00 PM MTMS BY CELESTE PEARL 15 MIN TELEPHONE PRIMARY CARE ICD-10-CM E11.42 Type 2 diabetes mellitus with diabetic polyneuropathy KARI BRITO [facility] Encounter Template Text not used by [place] Assessments - Encounter Diagnoses This section includes the primary and secondary diagnoses documented for the Encounter. Date/Time Primary/Secondary Diagnosis Diagnosis Name Provider Source Jan 18, 2024 04:00 PM PRIMARY Type 2 diabetes mellitus with diabetic polyneuropathy KARI BRITO [facility] Plan of Treatment: Future Appointments [...] 04:00 PM [place] [place] [facility] Apr 09, 2024 09:00 AM [facility] [place] [facility] Apr 12, 2024 11:30 AM [facility] [place]ONE [place] [facility] Apr 17, 2024 01:30 PM [facility] [place]ONE [place] [facility] Apr 26, 2024 01:30 PM [facility] [place]ONE [place] [facility] May 17, 2024 02:00 PM [facility] [place]ONE [place] [facility] May 17, 2024 02:45 PM [place] [facility] Jun 11, 2024 11:30 AM [facility] [place]ONE [place] [facility] Jul 09, 2024 11:30 AM [facility]ONE [place] [facility] Social History: Smoking Status (Most [...] 18, 2022 08:30 AM VA-TOBACCO FORMER USER [facility] Tobacco Use History This section includes a history of the smoking, or tobacco-related health factors, that were collected on or before the date of the Encounter. The data comes from the [facility] where the Encounter took place. Date/Time Smoking Status/Tobacco Use Comment F acility Aug 18, 2022 08:30 AM VA-TOBACCO QUIT 15 YRS OR MORE [facility] May 03, 2021 08:00 AM VA-TOBACCO FORMER USER [facility] May 03, 2021 08:00 AM VA-TOBACCO QUIT 15 YRS OR MORE [facility] Apr 21, 2020 09:00 AM VA-TOBACCO FORMER USER [facility] Apr 21, 2020 09:00 AM VA-TOBACCO QUIT 15 YRS OR MORE [facility] Apr 03, 2018 03:16 PM FORMER TOBACCO USE >1Y <7Y [facility] Mar 09, 2007 10:41 AM CURRENT TOBACCO USER [facility] Advance Directives: All historical and [...] The data comes from all [facility]. 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
--- OUTSIDE RECORDS SUMMARY | 2024-07-11 08:02 | XMS_ITS | Encounter Summary ---
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 [facility] [place] Address [address] [place] [address] Care Team Providers Care Election Clerk Name Role Phone CHARLEE FISH Primary Care [...] MEDIC ARE SUPPL EMENT Jul 31, 2018 [id number] RENAUX,JU ALEX PATIENT [place] MEDIC ARE SUPPL EMENT Jul 31, 2018 [id number] [phone] RENAUX,JU [place] [facility] (WNR) MEDICARE ADVANTAGE [facility] (WNR) Jul 31, 2017 [id number] [phone] RENAUX,JU ALEX PATIENT [place] MEDIC ARE SUPPL EMENT Jul 31, 2018 [id number] RENAUX,JU A[place] MEDIC ARE SUPPL EMENT Jul 31, 2018 [id number] [phone] RENAUX,JU ALEX PATIENT MEDICARE (WNR) MEDICARE (M) PART A May 31, 2011 PART A [id number] KANE PÉREZ PATIENT MEDICARE (WNR) MEDICARE (M) PART B May 31, 2011 PART B [id number] [phone] KANE PÉREZ PATIENT Selected Encounter This section includes the information on record at [place] for the Encounter. Date/Time Encounter Type Encounter Description Reason Pro vider Source Jul 01, 2024 01:20 PM Outpatient Encounter COMMUNITY CARE CONSULT IHE Encounter Template Text not used by [place] Plan of Treatment: Future Appointments (+ 6 months) and Future Tests (+/- 45 days) The Plan of Treatment section includes future care activities for the [facility] [place] [facility] This section includes future appointments [...] 09, 2024 11:30 AM AMBULATORY - NONE [facility] Aug 14, 2024 11:30 AM AMBULATORY - NONE [facility] Social History: Smoking Status (Most [...] Date/Time Current Smoking Status Comment Diego ity May 17, 2024 02:45 PM VA-TOBACCO QUIT 15 YRS OR MORE [facility] Tobacco Use History This section includes a history of the smoking, or tobacco-related health factors, that were collected on or before the date of the Encounter. The data comes from the [place] facility where the Encounter took place. Date/Time Smoking Status/Tobacco Use Comment F acility May 17, 2024 02:45 PM VA-TOBACCO QUIT 15 YRS OR MORE [facility] Aug 18, 2022 08:30 AM VA-TOBACCO FORMER USER [facility] Aug 18, 2022 08:30 AM VA-TOBACCO QUIT 15 YRS OR MORE [facility] May 03, 2021 08:00 AM VA-TOBACCO FORMER USER [facility] May 03, 2021 08:00 AM VA-TOBACCO QUIT 15 YRS OR MORE [facility] Apr 21, 2020 09:00 AM VA-TOBACCO FORMER USER [facility] Apr 21, 2020 09:00 AM VA-TOBACCO QUIT 15 YRS OR MORE [facility] Apr 03, 2018 03:16 PM FORMER TOBACCO USE >1Y <7Y [facility] Mar 09, 2007 10:41 AM CURRENT TOBACCO USER [facility] Advance Directives: All historical and current [...] 22, 2021 ADVANCE DIRECTIVE DISCUSSION ALLYSON GRAF [facility] Jun 22, 2021 ADVANCE DIRECTIVE ALLYSON GRAF [facility] Mar 09, 2007 ADVANCE DIRECTIVE SOLEDAD WOLFF [facility] Encounter Notes: All associated encounter notes This section contains the clinical notes associated to the Encounter. Date/Time Encounter Note(s) Provider Source Jul 02, 2024 02:50 PM ADDENDUM: LOCAL TITLE: Addendum STANDARD TITLE: ADDENDUM DATE OF NOTE: JUL 02, 2024@14:50:37 ENTRY DATE: JUL 02, 2024@14:50:38 AUTHOR: SOLEDDA HERRERA COSIGNER: URGENCY: STATUS: COMPLETED [place] called [facility] call line. stated he spoke with [place] and they advised the [place] they Faxed the office notes at 8am this morning to the Fax number he was given. would like to make sure we received the notes and forms needed and if an order will be entered soon. [place] also stated he would like to have a call back at: Alerting RN per social split. /toby/ SOLEDAD SHIN ADVANCED MSA Signed: 07/02/2024 14:52 Receipt Acknowledged By: 07/08/2024 08:33 /toby/ DAY BENOIT RN Referral Hand Stitcher 07/03/2024 11:08 /toby/ DOROTHY YOO RN REGISTERED NURSE ====== --- Original Document --- 07/01/24 COMMUNITY CARE-CARE COORDINATION PLAN NOTE: called back stating that [facility] no longer provides those services he needs. was informed by [facility] that he needs a 14 day Infusion therapy consult, and he would prefer to have this at his home or near him. Please review Infusion history and create a consult for this . /es/ SOLEDAD BELL Signed: 07/01/2024 13:22 Receipt Acknowledged By: 07/01/2024 15:19 /es/ Charlee Fish MD Physician 07/01/2024 16:09 /es/ DOROTHY YOO RN REGISTERED NURSE 07/01/2024 ADDENDUM STATUS: COMPLETED We do not have records from the [facility]. Please ask the to contac the clinic and ask them to fax records [place]. /toby/ Charlee Fish MD Physician Signed: 07/01/2024 15:20 Receipt Acknowledged By: 07/01/2024 16:08 /es/ DOROTHY YOO RN REGISTERED NURSE 07/01/2024 ADDENDUM STATUS: COMPLETED Spoke with patient and let him know his provider needs to see the records from the [facility]. Provided pt with fax number and he indicated he will have them fax the records to Dr. Fish. /es/ DOROTHY YOO RN REGISTERED NURSE Signed: 07/01/2024 16:10 SOLEDAD HERRERA [facility] Jul 01, 2024 03:19 PM ADDENDUM: LOCAL TITLE: Addendum STANDARD TITLE: ADDENDUM DATE OF NOTE: JUL 01, 2024@15:19:45 ENTRY DATE: JUL 01, 2024@15:19:46 AUTHOR: CHARLEE FISH EXP COSIGNER: URGENCY: STATUS: COMPLETED We do not have records from the [facility]. Please ask the to contac the clinic and ask them to fax records bent[place]. /peyton Fish MD Physician Signed: 07/01/2024 15:20 Receipt Acknowledged By: 07/01/2024 16:08 /toby/ DOROTHY YOO RN REGISTERED NURSE ====== --- Original Document --- 07/01/24 COMMUNITY CARE-CARE COORDINATION PLAN NOTE: called back stating that [facility] no longer provides those services he needs. [place] was informed by [facility] that he needs a 14 day Infusion therapy consult, and he would prefer to have this at his home or near him. Please review Infusion history and create a consult for this . /peyton BELL Signed: 07/01/2024 13:22 Receipt Acknowledged By: 07/01/2024 15:19 /peyton Fish MD Physician * AWAITING SIGNATURE * DOROTHY YOO MELODY A [facility] Jul 01, 2024 01:20 PM NONVA NOTE: LOCAL TITLE: COMMUNITY CARE-CARE COORDINATION PLAN NOTE STANDARD TITLE: NONVA NOTE DATE OF NOTE: JUL 01, 2024@13:20 ENTRY DATE: JUL 01, 2024@13:20:07 AUTHOR: SOLEDAD WANG EXP COSIGNER: URGENCY: STATUS: COMPLETED COMMUNITY CARE-CARE COORDINATION PLAN NOTE Has ADDENDA [place] called back stating that [facility] no longer provides those services he needs. [place] was informed by [facility] that he needs a 14 day Infusion therapy consult, and he would prefer to have this at his home or near him. Please review Infusion history and create a consult for this . /peyton BELL Signed: 07/01/2024 13:22 Receipt Acknowledged By: 07/01/2024 15:19 /peyton Fish MD Physician 07/01/2024 16:09 /es/ DOROTHY YOO RN REGISTERED NURSE 07/01/2024 ADDENDUM STATUS: COMPLETED We do not have records from the [facility]. Please ask the to contac the clinic and ask them to fax records [place]. /toby/ Charlee Fish MD Physician Signed: 07/01/2024 15:20 Receipt Acknowledged By: 07/01/2024 16:08 /toby/ DOROTHY YOO RN REGISTERED NURSE 07/01/2024 ADDENDUM STATUS: COMPLETED Spoke with patient and let him know his provider needs to see the records from the [facility]. Provided pt with fax number and he indicated he will have them fax the records to Dr. Fish. /toby/ DOROTHY YOO RN REGISTERED NURSE Signed: 07/01/2024 16:10 07/02/2024 ADDENDUM STATUS: COMPLETED called [facility] call [facility]. [place] stated he spoke with [place] and they advised the [place] they Faxed the office notes at 8am this morning to the Fax number he was given. [place] would like to make sure we received the notes and forms needed and if an order will be entered soon. [place] also stated he would like to have a call back at: Alerting RN per social split. /toby/ SOLEDAD SHIN ADVANCED MSA Signed: 07/02/2024 14:52 Receipt Acknowledged By: * AWAITING SIGNATURE * DAY BENOIT * AWAITING SIGNATURE * DOROTHY YOO AMY L [facility]
--- OUTSIDE RECORDS SUMMARY | 2024-07-11 08:03 | XMS_ITS | Encounter Summary ---
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 Organization [facility] [place] Address [address] [place] [address] Care Team Providers Care Stump Blower Name Role Phone CHARLEE FISH Primary Care [...] MEDIC ARE SUPPL EMENT Jul 31, 2018 [id number] RENAUX,JU [place] MED[place] ARE SUPPL EMENT Jul 31, 2018 [id number] [phone] RENAUX,JU [place] [facility] (WNR) MEDICARE ADVANTAGE [facility] (WNR) Jul 31, 2017 [id number] [phone] RENAUX,JU A[place] MEDIC ARE SUPPL EMENT Jul 31, 2018 [id number] RENAUX,JU A[place] MEDIC ARE SUPPL EMENT Jul 31, 2018 [id number] [phone] RENAUX,JU ALEX PATIENT MEDICARE (WNR) MEDICARE (M) PART A May 31, 2011 PART A [id number] [phone] KANE MANTILLA PATIENT MEDICARE (WNR) MEDICARE (M) PART B May 31, 2011 PART B [id number] [phone] KANE MANTILLA PATIENT Selected Encounter This section includes the information on record at [place] for the Encounter. Date/Time Encounter Type Encounter Description Reason Provider Source Jul 10, 2024 02:59 PM Outpatient Encounter PRIMARY CARE/MEDICINE DOROTHY YOO Candy Encounter Template Text not used by MD Plan of Treatment: Future Appointments (+ 6 months) and Future Tests (+/- 45 days) The Plan of Treatment section includes future care activities for the [facility] This section includes future appointments and future orders which are active, pending or scheduled. Future Appointments This section includes appointments that were scheduled to occur 6 months from the date of the Encounter, up to a maximum of 20 appointments. The data comes from all [place] treatment facilities. Appointment Date/Time Appointment Type Appointme nt Facility Name Aug 14, 2024 11:30 AM AMBULATORY - NONE [facility] Social History: Smoking Status (Most current) and Tobacco Use (All prior to encounter date) This section includes the most current, and the historical, smoking and tobacco- related health factors from the [place] facility where the Encounter took place. Current Smoking Status This section includes the most current smoking, or tobacco-related health factor, from the [place] facility where the Encounter took place. Date/Time Current Smoking Status Comment Diego ity May 17, 2024 02:45 PM VA-TOBACCO FORMER USER [facility] Tobacco Use History This section includes a history of the smoking, or tobacco-related health factors, that were collected on or before the date of the Encounter. The data comes from the [place] facility where the Encounter took place. Date/Time Smoking Status/Tobacco Use Comment F acility May 17, 2024 02:45 PM [place]-TOBACCO QUIT 15 YRS OR MORE [facility] Aug 18, 2022 08:30 AM VA-TOBACCO FORMER USER [facility] Aug 18, 2022 08:30 AM VA-TOBACCO QUIT 15 YRS OR MORE [facility] May 03, 2021 08:00 AM VA-TOBACCO FORMER USER [facility] May 03, 2021 08:00 AM VA-TOBACCO QUIT 15 YRS OR MORE [facility] Apr 21, 2020 09:00 AM VA-TOBACCO FORMER USER [facility] Apr 21, 2020 09:00 AM [place]-TOBACCO QUIT 15 YRS OR MORE [facility] Apr 03, 2018 03:16 PM FORMER TOBACCO USE >1Y <7Y [facility] Mar 09, 2007 10:41 AM CURRENT TOBACCO USER [facility] Advance Directives: All historical and current Section Date Range: From patient's date of to the date document was created. This section includes ALL of a patient's completed or amended [place] Advance and Rescinded Directives. The entries below indicate that a directive exists for the patient, but an actual copy is not included with this document. The data comes from all [place] facilities. Date Advance Directives Provider Source Jun 22, 2021 ADVANCE DIRECTIVE DISCUSSION ALLYSON GRAF [facility] Jun 22, [address]ANCE [address]YS[address] G[address] [facility] Mar 09, 2007 ADVANCE DIRECTIVE SOLEDAD WOLFF [facility] Encounter Notes: All associated encounter notes This section contains the clinical notes associated to the Encounter. Date/Time Encounter Note(s) Provider Source Jul 10, 2024 02:59 PM PRIMARY CARE [place] E MESSAGING: LOCAL TITLE: PRIMARY CARE SECURE MESSAGING STANDARD TITLE: PRIMARY CARE SECURE MESSAGING DATE OF NOTE: JUL 10, 2024@14:59 ENTRY DATE: JUL 10, 2024@13:59:40 AUTHOR: DOROTHY YOO COSIGNER: URGENCY: STATUS: COMPLETED ------Original Message --- Sent: 07/08/2024 12:45 PM ET From: MIGUELINA MANTILLA To: [facility] Primary CareMaria Del Carmen M. ([facility] Subject: General:Infusion Therapy Arnaldo Araya, Re: Infusion Therapy I also have sent a similar message to Dr. Fish regarding infusion therapy. Because I am susceptible to infections and have had sepsis twice before plus considering the possible loss of a foot if the heel bone becomes infected, I would like to consider an alternative solution. [facility] is stressing that this is an urgent matter and that I need to begin treatment right away. My understanding is that a 14-day IV infusion is what has been prescribed. Is it possible that Dr. Fish can approve this treatment to be done at the [facility]? Thank you for your help Dorothy, --Miguelina Mantilla /toby/ DOROTHY YOO RN REGISTERED NURSE Signed: 07/10/2024 13:59 DOROTHY YOO [facility]
--- OUTSIDE RECORDS SUMMARY | 2024-07-11 08:03 | XMS_ITS | Encounter Summary ---
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 Address [address] [place] [address] Care Team Providers Care Wire Mesh Knitter Name Role Phone SWATI FISH Primary Care Provider Unavail le Insurance [...] MEDIC ARE SUPPL EMENT Jul 31, 2018 [id number] [phone] RENAUX,JU ALEX [place] MEDIC ARE SUPPL EMENT Jul 31, 2018 [id number] RENAUX,JU [place] [facility] (WNR) MEDICARE ADVANTAGE [facility] (WNR) Jul 31, 2017 [id number] [phone] RENAUX,JU ALEX PAT[place] MEDIC ARE SUPPL EMENT Jul 31, 2018 [id number] RENAUX,JU A[place] MEDIC ARE SUPPL EMENT Jul 31, 2018 [id number] [phone] RENAUX,JU ALEX PATIENT MEDICARE (WNR) MEDICARE (M) PART A May 31, 2011 PART A [id number] KANE MANITLLA PATIENT MEDICARE (WNR) MEDICARE (M) PART B May 31, 2011 PART B [id number] KANE MANTILLA PATIENT Selected Encounter This section includes the information on record at [place] for the Encounter. Date/Time Encounter Type Encounter Description Reason Provider Source Jul 10, 2024 01:40 PM Outpatient Encounter PRIMARY CARE/MEDICINE DOROTHY YOO Candy Encounter Template Text not used by [place] Plan of Treatment: Future Appointments (+ 6 months) and Future Tests (+/- 45 days) The Plan of Treatment section includes future care activities for the patient from all [place] [facility]. This section includes future appointments and [...] 14, 2024 11:30 AM AMBULATORY - NONE [facility] Social History: Smoking Status (Most [...] Facil ity May 17, 2024 02:45 PM [place]-TOBACCO QUIT 15 YRS OR MORE [facility] Tobacco Use History This section includes a history of the smoking, or tobacco-related health factors, that were collected on or before the date of the Encounter. The data comes from the [place] facility where the Encounter took place. Date/Time Smoking Status/Tobacco Use Comment F acility May 17, 2024 02:45 PM VA-TOBACCO QUIT 15 YRS OR MORE [facility] Aug 18, 2022 08:30 AM VA-TOBACCO FORMER USER [facility] Aug 18, 2022 08:30 AM VA-TOBACCO QUIT 15 YRS OR MORE [facility] May 03, 2021 08:00 AM VA-TOBACCO FORMER USER [facility] May 03, 2021 08:00 AM [place]-TOBACCO QUIT 15 YRS OR MORE [facility] Apr 21, 2020 09:00 AM VA-TOBACCO FORMER USER [facility] Apr 21, 2020 09:00 AM [place]-TOBACCO QUIT 15 YRS OR MORE [facility] Apr 03, 2018 03:16 PM FORMER TOBACCO USE >1Y <7Y [facility] Mar 09, 2007 10:41 AM CURRENT TOBACCO USER [facility] Advance Directives: All historical and current Section Date Range: From patient's date of to the date document was created. This section includes ALL of a patient's completed or amended [place] Advance and Rescinded Directives. The entries below indicate that a directive exists for the patient, but an actual copy is not included with this document. The data comes from all [place] facilities. Date Advance Directives Provider Source Jun 22, 2021 ADVANCE DIRECTIVE DISCUSSION ALLYSON GRAF [facility] Jun 22, 2021 ADVANCE DIRECTIVE ALLYSON GRAF [facility] Mar 09, 2007 ADVANCE DIRECTIVE SOHEILA WOLFF [facility] Encounter Notes: All associated encounter notes This section contains the clinical notes associated to the Encounter. Date/Time Encounter Note(s) Provider Source Jul 10, 2024 01:40 PM PRIMARY CARE SECUR E MESSAGING: LOCAL TITLE: PRIMARY CARE SECURE MESSAGING STANDARD TITLE: PRIMARY CARE SECURE MESSAGING DATE OF NOTE: JUL 10, 2024@13:40 ENTRY DATE: JUL 10, 2024@12:40:30 AUTHOR: DOROTHY YOO COSIGNER: URGENCY: STATUS: COMPLETED ------Original Message --- Sent: 07/04/2024 02:36 PM ET From: MIGUELINA MANTILLA To: [facility] Primary CareMaria Del Carmen M. ([facility] Subject: Medication:Medication Renewal Dorothy: This is the process as I understand it. (1) [facility] faxed the requested medical information to the attention of Dr. Fish [phone]. It was faxed twice, once in the morning and once in the afternoon. (2) Soheila () explained that once the information was approved by Dr. Fish it would be sent to Soheila at [facility]. (3) Once Soheila receives the information, she would then upload it on the system once the approval was received and a welding machine operator electroslag would then contact me and make arrangements for the infusion therapy. (4) [facility] has stressed the urgency of starting the infusion therapy as soon as possible. I am at risk for sepsis or bone infection which could result in loss of the foot. Question: Is it [facility] for [facility] of going to a clinic outside [facility] for the infusion therapy? If this is possible it would be a quicker solution for me. Let me know. Thank you for all your help. It is appreciated. Please get back to me at your earliest convenience. --Miguelina Mantilla ------Original Message --- Sent: 07/09/2024 10:47 PM ET From: SWATI FISH To: MIGUELINA MANTILLA Subject: Medication:Medication Renewal We are going to reach out to your provider for additional information. I read through the notes and it is not clear what they are asking for. Ceftriaxone can either be given intramuscularly or IV. The note seemed to indicate intramuscular, which would not go through an infusion center. That can be administered in clinic by an RN. Our infusion center is not open on the weekends, so we would not be able to accommodate giving you the infusion for 10 straight days. We will also need to check with our care in the community department, since the order is originating from an outside provider. It appears that you are seeing the gate person on your own, not through care in the community, is that correct. Typically, antibiotics are not managed through co-managed care, but I'm not sure of the procedure for the intramuscular therapy. Swati Fish MD Staff Physician, Internal Medicine [facility] ------Original Message --- Sent: 07/10/2024 01:39 PM ET From: DOROTHY YOO To: MIGUELINA MANTILLA Subject: Medication:Medication Renewal Juan Santos, I am forwarding your note to Dr. Fish for review. Thanks Yudi Navarro RN /toby/ DOROTHY J WOOD, RN REGISTERED NURSE Signed: 07/10/2024 12:40 Receipt Acknowledged By: * AWAITING SIGNATURE * SWATI FISH,DOROTHY Levin [facility]
--- OUTSIDE RECORDS SUMMARY | 2024-07-11 08:03 | XMS_ITS | Encounter Summary ---
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 [facility] [place] [facility] [facility] [place] Address [address] [place] [address] Care Team Providers Care Director Medical Science Name Role Phone CHARLEE FISH Primary Care [...] MEDIC ARE SUPPL EMENT Jul 31, 2018 [id number] [phone] RENKANE LUGO ALEX PATIENT [place] MED[place] SUPPLEMEN [place] MEDIC ARE SUPPL EMENT Jul 31, 2018 [id number] [phone] RENAUX,JU ALEX PAT[place] [facility] (WNR) MEDICARE ADVANTAGE [facility] (WNR) Jul 31, 2017 [id number] [phone] RENAUX,JU ALEX PATIENT [place] MED[place] SUPPLEMEN [place]OT MEDIC ARE SUPPL EMENT Jul 31, 2018 [id number] [phone] RENAUX,JU A[place] SUPPLE[place] MEDIC ARE SUPPL EMENT Jul 31, 2018 [id number] [phone] RENAUX,JU ALEX PATIENT MEDICARE (WNR) MEDICARE ([place]) PART A May 31, 2011 PART A [id number] [phone] KANE PÉREZ PATIENT MEDICARE ([place]NR) MEDICARE ([place]) PART B May 31, 2011 PART B [id number] [phone] KANE PÉREZ PATIENT Selected Encounter This section includes the information on record at [place] for the Encounter. Date/Time Encounter Type Encounter Description Reason Provider Source Jul 09, 2024 01:49 PM Outpatient Encounter TELEPHONE TRIAGE RYAN CÁRDENAS Encounter Template Text not used by [place] Plan of Treatment: Future Appointments (+ 6 months) and Future Tests (+/- 45 days) The Plan of Treatment section includes future care activities for the [facility] [place] [facility] This section includes future appointments [...] 14, 2024 11:30 AM AMBULATORY - NONE [facility] [...] 2024 02:45 PM VA-TOBACCO FORMER USER [facility] Tobacco Use History This section includes a history of the smoking, or tobacco-related health factors, that were collected on or before the date of the Encounter. The data comes from the [place] facility where the Encounter took place. Date/Time Smoking Status/Tobacco Use Comment F acility May 17, 2024 02:45 PM [place]-TOBAC[place] QUIT [address] [facility] Aug 18, 2022 08:30 AM VA-TOBACCO FORMER USER [facility] Aug 18, 2022 08:30 AM VA-TOBACCO QUIT [address] [facility] May 03, 2021 08:00 AM VA-TOBACCO FORMER USER [facility] May 03, 2021 08:00 AM [place]-TO[place]AC[place] QUIT [address] [facility] Apr 21, 2020 09:00 AM VA-TOBACCO FORMER USER [facility] Apr 21, 2020 09:00 AM VA-TOBACCO QUIT [address] [facility] Apr 03, 2018 03:16 PM FORMER TOBACCO USE >1Y <7Y [facility] Mar 09, 2007 10:41 AM CURRENT TOBACCO USER [facility] Advance Directives: All historical and current Section Date Range: From patient's date of to the date document was created. This section includes ALL of a patient's completed or amended [place] Advance and Rescinded Directives. The entries below indicate that a directive exists for the patient, but an actual copy is not included with this document. The data comes from all [facility]. Date Advance Directives Provider Source Jun 22, 2021 ADVANCE DIRECTIVE DISCUSSION ALLYSON GRAF [facility] Jun 22, 2021 ADVANCE DIRECTIVE ALLYSON GRAF [facility] Mar 09, 2007 ADVANCE DIRECTIVE SOLEDAD WOLFF [facility] Encounter Notes: All associated encounter notes This section contains the clinical notes associated to the Encounter. Date/Time Encounter Note(s) Provider Source Jul 09, 2024 02:42 PM ADDENDUM: LOCAL TITLE: Addendum STANDARD TITLE: ADDENDUM DATE OF NOTE: JUL 09, 2024@14:42:06 ENTRY DATE: JUL 09, 2024@14:42:06 AUTHOR: CHARLEE FISH EXP COSIGNER: URGENCY: STATUS: COMPLETED Please call the nurse practitioner back to get additional details. I am not sure what they are asking for. Does he have a PICC line? are they talking about home infusion care? Or is he thinking he would come to clinic each day for an IM injection? If they are planning 10 days of therapy, We would not be able to accomodate the weekend. /toby/ Charlee Fish MD Physician Signed: 07/09/2024 14:43 Receipt Acknowledged By: 07/09/2024 15:20 /toby/ DOROTHY YOO RN REGISTERED NURSE ====== --- Original Document --- 07/09/24 CCC: CLINICAL TRIAGE: Patient Demographics Patient Name: MIGUELINA PÉREZ Patient Primary Address: [id number] [place] [address] Patient Primary Phone: [phone] Patient : 1945 Patient Age: 79 Caller/Recipient Relation to Patient: Caregiver Caller Name: CHETAN Amos Emergency Contact: DOROTHY DUONG Nursing Plan and Disposition Other course(s) of action Generated msg to PACT/Provider Nurse Summary Nurse Summary: PATIENT CONCERN/DURATION/ONSET: Bette Blake APRN, from [facility], states that is currently being treated at the wound center for a foot ulcer. Ilene Griffin NP ordered 2 grams Rocephin daily x10 days and he has not started this yet as they are needing a referral or for the [facility] to administer this dose. Bette SANFORD requests follow up with PACT so that this can be started either through their center or at the VA as prescription was written to being today. is not present at this time. WHAT HAS PATIENT TRIED TO TREAT THE SYMPTOMS: N/A- receiving care at wound clinic; call not symptom based HISTORY/PREVIOUS TREATMENT: DM, foot pain, osteopenia, amputation of lesser toe WHAT IS PATIENT GOAL FOR THE CALL: referral or [facility] to administer mediations Was Virtual Care Visit considered (TELE or VVC)? N/A- needs in person evaluation RABBLE FURNACE TENDER DISPOSITION: Message newspaper library manager sent to PACT for follow up with assistance for orders. Verified best call back for APRN. Amos agreeable to plan of care and denies other needs. [place] not used as call is not symptom based. Best contact for Bette- [phone] option 3 This note was created by a [address] payroll tax analyst. Please do not alert this nurse by adding as a signer for future communications. Alerts are not monitored by this user, please reach out to [facility] Leadership instead if indicated. Clinical Contact Center Codes Clinic/Location: [facility] PHONE CCC RN IMPORTANT: This note was created by [facility] Clinical Contact Center staff. Please do not alert the staff member by adding them as a signer for future communications. Alerts are not monitored by this user. /toby/ IRMA CÁRDENAS RN, V23 [facility] Signed: 07/09/2024 13:[address] [facility] Jul 09, 2024 01:49 PM RN PROGRESS NOTE: LOCAL TITLE: CCC: CLINICAL TRIAGE STANDARD TITLE: RN PROGRESS NOTE DATE OF NOTE: JUL 09, 2024@13:49:33 ENTRY DATE: JUL 09, 2024@13:49:33 AUTHOR: IRMA CÁRDENAS I EXP COSIGNER: URGENCY: STATUS: COMPLETED CCC: CLINICAL TRIAGE Has ADDENDA Patient Demographics Patient Name: MIGUELINA PÉREZ Patient Primary Address: [address] [place] [address] Patient Primary Phone: [phone] Patient : 1945 Patient Age: 79 Caller/Recipient Relation to Patient: Caregiver Caller Name: CHETAN Amos Emergency Contact: DOROTHY DUONG Nursing Plan and Disposition Other course(s) of action Generated msg to PACT/Provider Nurse Summary Nurse Summary: PATIENT CONCERN/DURATION/ONSET: Bette Blake APRN, from [facility], states that is currently being treated at the wound center for a foot ulcer. Ilene Griffin, PRINCESS ordered 2 grams Rocephin daily x10 days and he has not started this yet as they are needing a referral or for the VA to administer this dose. Bette SANFORD requests follow up with PACT so that this can be started either through their center or at the VA as prescription was written to being today. [employer] is not present at this time. WHAT HAS PATIENT TRIED TO TREAT THE SYMPTOMS: N/A- receiving care at wound clinic; call not symptom based HISTORY/PREVIOUS TREATMENT: DM, foot pain, osteopenia, amputation of lesser toe WHAT IS PATIENT GOAL FOR THE CALL: referral or VA to administer mediations Was Virtual Care Visit considered (TELE or VVC)? N/A- needs in person evaluation RABBLE FURNACE TENDER DISPOSITION: Message newspaper library manager sent to PACT for follow up with assistance for orders. Verified best call back for APRN. Amos agreeable to plan of care and denies other needs. [place] not used as call is not symptom based. Best contact for Bette- [phone] option 3 This note was created by a [address] payroll tax analyst. Please do not alert this nurse by adding as a signer for future communications. Alerts are not monitored by this user, please reach out to [facility] Leadership instead if indicated. Clinical Contact Center Codes Clinic/Location: [address] PHONE CCC RN IMPORTANT: This note was created by [facility] Clinical Contact Center staff. Please do not alert the staff member by adding them as a signer for future communications. Alerts are not monitored by this user. /toby/ IRMA CÁRDENAS RN, [address] Signed: 07/09/2024 13:49 07/09/2024 ADDENDUM STATUS: COMPLETED Please call the nurse practitioner back to get additional details. I am not sure what they are asking for. Does he have a PICC line? are they talking about home infusion care? Or is he thinking he would come to clinic each day for an IM injection? If they are planning 10 days of therapy, We would not be able to accomodate the weekend. /toby/ Charlee Fish MD Physician Signed: 07/09/2024 14:43 Receipt Acknowledged By: 07/09/2024 15:20 /toby/ DOROTHY YOO RN REGISTERED NURSE 07/09/2024 ADDENDUM STATUS: COMPLETED Spoke with Bette Blake APRN from [facility] and let her know this is not something we can accomodate through co-managed care as per provider. Bette said pt has private insurance through medicare. Talked with Bette about the co-managed care and cc referrals and provided Bette with the phone number to community care. /toby/ DOROTHY YOO RN REGISTERED NURSE Signed: 07/09/2024 15:38 IRMA CÁRDENAS I [facility]
--- OUTSIDE RECORDS SUMMARY | 2024-07-11 08:04 | XMS_ITS | Data Portability ---
Author Organization [place] [facility] Address [address] [place] [address] Care Team Providers Care Metal Tile Lather Name Role Phone POST, SUE Primary Care [...] [facility], [address], [address], [place], [address], 3 10:05:08 urinalysis, dipstick 2022 023 [facility], [address], [place], [address], 12:03:37 Referral None recorded. Procedures None recorded. Surgeries None recorded. Imaging None recorded. Medication Orders None recorded. Patient TargetsNo targets recorded. Patient Instructions Encounter Date Encounter Id Patient Instructions Last Modified By Organization Details Last Modified Time 09/23/2022 [id number] Patient to call clinic with questions or concerns. Advised patient to increase water intake and to keep 4 week appointment for next catheter change. [email or web address] Not available 09/23/2022 13:22:30 11/04/2022 [id number] Pt has F/U appt with Dr Barrientos in [place] on 11/11/2022 @ 3:10pm to review UDS. [...] ate 3) Sensi tivit y Priscila sis Edroy te 1 Edroy te 2 Edroy te 3 ----- ----- ----- ----- ----- [...] s Desk [facility]. S= Susce ptibl e;I= [...] for provi brandon revie w. Not Available [facility] [address], [place], [address], 11/07/2022 10:05:08 11/05/19 23 11/04/2022 urina lysis , dipst ick Color-Status Straw Not Available [facility] [address], [place], [address], 11/04/2022 12:02:10 11/05/19 23 11/04/2022 urina lysis , dipst ick Clarity-Stat us Slight ly Cloudy Not Available [facility] [address], [place], [address], 11/04/2022 12:02:10 11/05/19 23 11/04/2022 urina lysis , dipst ick Glucose-Stat us 500 Not Available [facility] [address], [place], [address], 11/04/2022 12:02:10 11/05/19 23 11/04/2022 urina lysis , dipst ick Bilirubin-St atus Negati ve Not Available [facility] [address], [place], [address], 11/04/2022 12:02:10 11/05/19 23 11/04/2022 urina lysis , dipst ick Ketones-Stat us Negati ve Not Available [facility] [address], [place], [address], 11/04/2022 12:02:10 11/05/19 23 11/04/2022 urina lysis , dipst ick Sp Marion-Stat us 1.015 Not Available [facility] [address], [place], [address], 11/04/2022 12:02:10 11/05/19 23 11/04/2022 urina lysis , dipst ick pH-Status 6.5 Not Available [facility] [address], [place], [address], 11/04/2022 12:02:10 11/05/19 23 11/04/2022 urina lysis , dipst ick Protein-Stat us 5.0 Not Available [facility] [address], [place], [address], 11/04/2022 12:02:10 11/05/19 23 11/04/2022 urina lysis , dipst ick Urobilinogen -Status 0.2 Not Available [facility] [address], [place], [address], 11/04/2022 12:02:10 11/05/19 23 11/04/2022 urina lysis , dipst ick Nitrates-Sta tus positi ve Not Available [facility] [address], [place], [address], 11/04/2022 12:02:10 11/05/19 23 11/04/2022 urina lysis , dipst ick Blood-Status Large Not Available [facility] [address], [place], [address], 11/04/2022 12:02:10 11/05/19 23 11/04/2022 urina lysis , dipst ick Leuko-Status Large Not Available [facility] [address], [place], [address], 11/04/2022 12:02:10 11/05/19 23 11/04/2022 urina lysis , dipst ick Specimen Type Cathet erized Not Available [facility] [address], [place], [address], 11/04/2022 12:02:10 11/05/19 23 11/04/2022 urina lysis , dipst ick Performed by LKchuckve n1 Not Available [facility] [address], [place], [address], 11/04/2022 12:02:10 Result Notes None recorded. Problems Name Problem SNOMED Code Status Onset Date Resolution Date Notes Provider Name and Address Organization Details Recorded Time [facility] of urine 327941253 [facility] 13:15[facility] Problem Notes None recorded. Procedures Surgical History Date Name Laterality Status Provider Name and Address Organization Details Recorded Time 3 Fill and Pull/Voiding Trial/TOV completed Jenna Harris [facility] 12/09/2022 11:59:45 3 Urodynamic Studies completed Deyanira Woods [facility] 11/04/2022 12:19:38 3 Gordon Catheter Insertion completed Deyanira Woods [facility] 11/04/2022 12:21:21 3 Urethral Catheter Change completed Jenna Harris [facility] 10/21/2022 13:18:32 3 Urethral Catheter Change completed Nenita Flores [facility] 09/23/2022 13:21:12 3 Gordon Catheter Insertion completed Roula Beltran [facility] 08/03/2022 11:16:51 3 Fill and Pull/Voiding Trial/TOV completed Roula Beltran [facility] 08/03/2022 11:16:41 2 Cystoscopy- male completed Kristopher Barrientos MD, PHD [address] [place] [address],[address], [address], [facility] 06/30/2022 09:37:30 2 Urethral Catheter Change completed Carlos Mix [facility] 06/30/2022 09:49:15 2 Gordon Catheter Insertion completed Juanito Josue [facility] 06/16/2022 15:03:22 2 Fill and Pull/Voiding Trial/TOV completed Roula Tony PA-C [address] [place] [address],[address], [address], [facility] 06/16/2022 18:06:50 Cataract Surgery completed Juanito Josue [facility] 06/16/2022 12:30:25 Orthopedic Surgery completed Еленаarminda Josue [facility] 06/16/2022 12:30:33 Imaging Results None [...] Updated DateTime 09/23/2022 180.[address] [facility] 09/23/2022 13:17:39 Date Recorded Body height Body mass index (BMI) Body weight Provider Name and Address Organization Details Last Updated DateTime 11/11/2022 180.34 cm 30 kg/m2 [address]145.[address] [facility] 11/11/2022 16:25:51 Social History Question Answer Notes LastModified by Organizat ion Details LastModified Time Tobacco Smoking Status Former Smoker Juanito song [facility] 06/16/2022 12:29:38 What Is Your [...] Diagnosis/Indication Diagnosis SNOMED-CT Code Diagnosis ICD10 Code [id number] Roula Tony PA-C [facility] [address] [place] [address] 06/16/2022 11:30:09 06/20/2022 08:36:10 Retention of urine 848531031 R33.9 Benign pro static hyperplasia with outflow obstruction 481080308 N40.1 [id number] Kristopher green MD, PHD [facility] [address] [place] [address] 06/30/2022 08:46:23 07/04/2022 11:29:58 Retention of urine 569959055 R33.9 Benign pro static hyperplasia with outflow obstruction 907979650 N40.1 [id number] Roula Ruby [facility] [address] [place] [address] 08/03/2022 10:27:16 08/05/2022 11:54:14 Retention of urine 525188038 R33.9 [id number] Nenitaaranza Flores [facility] [address] [place] [address] 09/23/2022 10:30:04 09/26/2022 14:37:37 [id number] Kristopher green MD, PHD [facility] [address] [place] [address] 11/04/2022 10:41:00 11/10/2022 13:37:32 Benign prostatic hyperplasia with outflow obstruction 049368821 N40.1 Retention of urine 00594 4002 R33.9 Microscopic hematuria 19 4758690 R31.29 [id number] Jenna Harris [facility] [address] [place] [address] 10/21/2022 11:27:55 10/24/2022 11:49:09 Retention of urine 037346515 R33.9 [id number] Kristopher green MD, PHD [facility] [address] [place] [address] 11/11/2022 16:25:28 11/17/2022 17:02:38 Retention of urine 126943091 R33.9 Benign pro static hyperplasia with outflow obstruction 079222889 N40.1 [id number] Jenna Harris [facility] [address] [place] [address] 12/09/2022 10:56:01 12/12/2022 15:10:14 Retention of urine 796715260 R33.9 Health Concerns Section Related Observation LastModified by Organization Detai ls LastModified Time None Recorded Concern Status LastModified by Organization Details LastModified Time None Recorded Advance Directives Directive None Recorded Payers Encounter Date Sequence Insurance Name Policy Number Policy Molina Covered Member ID Molina Member ID Guarantor Name 09/23/2022 1 [place] [employer] Tom B Renaux [id number] Tom B Renaux 09/23/2022 2 [place] [id number] Tom B Renaux [id number] Tom B Renaux 10/21/2022 1 [place] [employer] Tom B Renaux [id number] Tom B Renaux 10/21/2022 2 [place] [id number] Tom B Renaux [id number] Tom B Renaux 11/04/2022 1 [place] [employer] Tom B Renaux [id number] Tom B Renaux 11/04/2022 2 [place] [id number] Tom B Renaux [id number] Tom B Renaux 11/11/2022 1 [place] [employer] Tom B Renaux [id number] Tom B Renaux 11/11/2022 2 [place] [id number] Tom B Renaux [id number] Tom B Renaux 12/09/2022 1 [place] [facility] [employer] Tom B Renaux [id number] Tom B Renaux 12/09/2022 2 [place] [id number] Tom B Renaux [id number] Tom B Renaux Notes Date Note Type [...] weeks for next catheter change. Nenita song [place] [facility] 09/23/2022 13:22:32 10/21/2022 text/html Pt here for cath eter change OLMAN [place] - [facility] 10/21/2022 13:21:54 11/11/2022 text/html 77M with urinary retention. Hospitalization at [facility] from 04/30-05/30 for MSSA bacteremia with [...] coordinate their care. Kristopher Barrientos MD, PHD [address] [place] [address],[address], [place], [address], [facility] 11/11/2022 17:49:57 12/09/2022 text/html Pt of Dr PALMER, her e for TOV recommended at 11/11/[address] [facility] 12/09/2022 12:43:22
[2024-07-11 13:33] VITALS: BP 143/67; PULSE 95; RESP 16; TEMP 35.8; O2SAT 97
[2024-07-11] MEDS: cefTRIAXone 2 GM in 0.9 % SODIUM CHLORIDE Mini-bag 100 ML IVPB (13:43)
[2024-07-12 13:00] VITALS: BP 135/75; PULSE 72; RESP 16; TEMP 36.4; O2SAT 99
[2024-07-12] MEDS: cefTRIAXone 2 GM in 0.9 % SODIUM CHLORIDE Mini-bag 100 ML IVPB (13:12)
[2024-07-13] MEDS: cefTRIAXone 2 GM in 0.9 % SODIUM CHLORIDE Mini-bag 100 ML IVPB (13:07)
[2024-07-13 14:21] VITALS: RESP 16
[2024-07-14] MEDS: cefTRIAXone 2 GM in 0.9 % SODIUM CHLORIDE Mini-bag 100 ML IVPB (13:06)
[2024-07-14 13:08] VITALS: BP 136/73; PULSE 81; RESP 18; TEMP 36.7
--- OUTSIDE RECORDS SUMMARY | 2024-07-15 09:25 | XMS_ITS | Encounter Summary ---
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 Address [address] [place] [address] Care Team Providers Care Agronomy Specialist Name Role Phone CHARLEE FISH Primary [...] MEDIC ARE SUPPL EMENT Jul 31, 2018 [id number] RENKANE LUGO [place] MED[place] ARE SUPPL EMENT Jul 31, 2018 [id number] [phone] RENAUX,JU [place] [facility] (WNR) MEDICARE ADVANTAGE [facility] (WNR) Jul 31, 2017 [id number] [phone] RENAUX,JU ALEX PATIENT [place] MED[place] MEDIC ARE SUPPL EMENT Jul 31, 2018 [id number] RENAUX,JU ALEX [place] MEDIC ARE SUPPL EMENT Jul 31, 2018 [id number] [phone] RENAUX,JU ALEX PATIENT MEDICARE (WNR) MEDICARE (M) PART A May 31, 2011 PART A [id number] [phone] KANE PÉREZ PATIENT MEDICARE (WNR) MEDICARE (M) PART B May 31, 2011 PART B [id number] [phone] KANE PÉREZ PATIENT Selected Encounter This section includes the information on record at [place] for the Encounter. Date/Time Encounter Type Encounter Description Reason Pro vider Source Oct 17, 2023 12:44 PM Outpatient Encounter TELEPHONE TRIAGE IHE Encounter Template Text not used by [place] Plan of Treatment: Future Appointments (+ 6 months) and Future Tests (+/- 45 days) The Plan of Treatment section includes future care activities for the patient from all [place] [facility]. This section includes future [...] 03:30 PM AMBULATORY - NONE [place] [facility] December 02, 2023 07:01 AM AMBULATORY - NONE [place] [facility] [facility] Jan 18, 2024 04:00 PM AMBULATORY - NONE [place] [facility] [facility] Feb 22, 2024 04:00 PM [place]ORY [place] [facility] Apr 09, 2024 09:00 AM AMBULATORY - NONE [place] [facility] [facility] Apr 12, 2024 11:30 AM AMBULATORY - NONE [place] [facility] Apr 17, 2024 01:30 PM [place]ORY - [place] [facility] Social History: Smoking Status (Most [...] 18, 2022 08:30 AM VA-TOBACCO FORMER USER [facility] Tobacco Use [...] this document. The data comes from all [place] facilities. Date Advance Directives Provider Source Jun 22, 2021 ADVANCE DIRECTIVE DISCUSSION ALLYSON GRAF [facility] Jun 22, 2021 ADVANCE DIRECTIVE ALLYSON GRAF [facility] Mar 09, 2007 ADVANCE DIRECTIVE [...] Call. Please contact at the following number: [phone] - Cherrie Other: Cherrie, from [facility], would like to be contact to discuss diabetic footwear check up notes. Cherrie would like to discuss with provider who treat his diabetic care. Cherrie would like his last diabetic notes. Fax # [email or web address]: [phone] This note was created by a 3 [facility] ARABELLA/ROSHNI. Please do not alert this writer technical publications by adding as a signer for future communications. Alerts are not monitored by this user, please reach out to [facility] Leadership instead if indicated. /peyton CLOUD VSN 23 [facility] A[facility] Signed: 10/17/2023 12:48 Receipt Acknowledged By: 10/17/2023 16:27 /peyton BRITO, PHARM D, BCPS Clinical Pharmacist Practitioner-4D [facility] Clinic 10/17/2023 ADDENDUM STATUS: COMPLETED attempted to reach cherrie--message left to CB. /peyton BRITO, PHARM D, BCPS Clinical Pharmacist Practitioner-4D [facility] Clinic Signed: 10/17/2023 16:28 LILIBETH CLOUD [facility]
--- OUTSIDE RECORDS SUMMARY | 2024-07-15 09:25 | XMS_ITS | Encounter Summary ---
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 Address [address] [place] [address] Care Team Providers Care Drafter Mechanical Name Role Phone CHARLEE FISH Primary Care [...] MEDIC ARE SUPPL EMENT Jul 31, 2018 [id number] RENKANE LUGO [place] MED[place] ARE SUPPL EMENT Jul 31, 2018 [id number] [phone] RENBRITTNEY,JU ALEX PAT[place] [facility] (WNR) MEDICARE ADVANTAGE [facility] (WNR) Jul 31, 2017 [id number] [phone] RENAUX,JU ALEX PATIENT [place] MEDIC ARE SUPPL EMENT Jul 31, 2018 [id number] RENAUX,JU A[place] MEDIC ARE SUPPL EMENT Jul 31, 2018 [id number] [phone] RENAUX,JU ALEX PATIENT MEDICARE (WNR) MEDICARE (M) PART A May 31, 2011 PART A [id number] KANE PÉREZ PATIENT MEDICARE (WNR) MEDICARE (M) PART B May 31, 2011 PART B [id number] KANE PÉREZ PATIENT Selected Encounter This section includes the information on record at [place] for the Encounter. Date/Time Encounter Type Encounter Description Reason Provider Source Nov 07, 2023 12:08 PM MTMS BY PHARM ERICK 15 MIN TELEPHONE PRIMARY CARE ICD-10-CM E11.621 Type 2 diabetes mellitus with foot ulcer KARI BRITO [facility] Encounter Template Text not used by [place] Assessments - Encounter Diagnoses This section includes the primary and secondary diagnoses documented for the Encounter. Date/Time Primary/Secondary Diagnosis Diagnosis Name Provider Source Nov 07, 2023 12:08 PM PRIMARY Type 2 diabetes mellitus with foot ulcer DARYLKARI [facility] Plan of Treatment: Future Appointments (+ 6 months) and Future Tests (+/- 45 days) The Plan of Treatment section includes future care activities for the patient from all [place] [facility]. This section includes future appointments and future orders which are active, pending or scheduled. Future Appointments This section includes appointments that were scheduled to occur 6 months from the date of the Encounter, up to a maximum of 20 appointments. The data comes from all [place] treatment facilities. Appointment Date/Time Appointment Type Appointme nt Facility Name Nov 23, 2023 03:30 PM AMBULATORY - NONE [place] [facility] December 02, 2023 07:01 AM AMBULATORY - NONE [place] [facility] Jan 18, 2024 04:00 PM AMBULATORY - NONE [place] [facility] Feb 22, 2024 04:00 PM AMBULATORY - NONE [place] [facility] Apr 09, 2024 09:00 AM AMBULATORY - NONE [place] [facility] Apr 12, 2024 11:30 AM AMBULATORY - NONE [place] [facility] Apr 17, 2024 01:30 PM AMBULATORY - NONE [place] [facility] [facility] Apr 26, 2024 01:30 PM AM[place]ORY - NONE [place] [facility] Social History: Smoking Status (Most current) and Tobacco Use (All prior to encounter date) This section includes the most current, and the historical, smoking and tobacco- related health factors from the [place] facility where the Encounter took place. Current Smoking Status This section includes the most current smoking, or tobacco-related health factor, from the [place] facility where the Encounter took place. Date/Time Current Smoking Status Comment Facil ity Aug 18, 2022 08:30 AM VA-TOBACCO FORMER USER [facility] Tobacco Use History This section includes a history of the smoking, or tobacco-related health factors, that were collected on or before the date of the Encounter. The data comes from the [place] facility where the Encounter took place. Date/Time [...] ALL of a patient's completed or amended [place] Advance and Rescinded Directives. The entries below [...] sandwich or grapes/cheese, beef stew Evening meal: assurance auditor -- sandwich or fruit/cheese Snacks: snickers, Allie [...] PACT Clinic Signed: 11/07/2023 13:33 KARI BRITO [facility]
--- OUTSIDE RECORDS SUMMARY | 2024-07-15 09:25 | XMS_ITS | Encounter Summary ---
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 Address [address] [place] [address] Care Team Providers Care Floor Renovator Name Role Phone CHARLEE FISH Primary Care [...] MEDIC ARE SUPPL EMENT Jul 31, 2018 [id number] RENKANE LUGO ALEX [place]IENT [place] MEDIC ARE SUPPL EMENT Jul 31, 2018 [id number] [phone] RENBRITTNEY,JU ALEX PATIENT [place] [facility] (WNR) MEDICARE ADVANTAGE [facility] (WNR) Jul 31, 2017 [id number] [phone] RENAUX,JU ALEX PATIENT [place] MED[place] MEDIC ARE SUPPL EMENT Jul 31, 2018 [id number] RENAUX,JU ALEX [place] MEDIC ARE SUPPL EMENT Jul 31, 2018 [id number] [phone] RENAUX,JU ALEX PATIENT MEDICARE (WNR) MEDICARE (M) PART A May 31, 2011 PART A [id number] [phone] KANE PÉREZ PATIENT MEDICARE (WNR) MEDICARE (M) PART B May 31, 2011 PART B [id number] KANE PÉREZ PATIENT Selected Encounter This section includes the information on record at [place] for the Encounter. Date/Time Encounter Type Encounter Description Reason Provider Source Oct 11, 2023 03:30 PM MTMS BY CELESTE SUAREZ 15 MIN TELEPHONE PRIMARY CARE ICD-10-CM E11.42 Type 2 diabetes mellitus with diabetic polyneuropathy SOLEDAD ELLIS [facility] Encounter Template Text not used by [place] Assessments - Encounter Diagnoses This section includes the primary and secondary diagnoses documented for the Encounter. Date/Time Primary/Secondary Diagnosis Diagnosis Name Provider Source Oct 11, 2023 03:30 PM PRIMARY Type 2 diabetes mellitus with diabetic polyneuropathy SOLEDAD ELLIS [facility] Plan of Treatment: Future Appointments (+ 6 months) and Future Tests (+/- 45 days) The Plan of Treatment section includes future care activities for the patient from all [place] [facility]. This section includes future appointments and future orders which are active, pending or scheduled. Future Appointments This section includes appointments that were scheduled to occur 6 months from the date of the Encounter, up to a maximum of 20 appointments. The data comes from all [place] treatment facilities. Appointment Date/Time Appointment Type Appointme nt Facility Name Nov 23, 2023 03:30 PM [place]ORY - NONE [place] [facility] December 02, 2023 07:01 AM AMBUL[place]ORY - NONE [place] [facility] Jan 18, 2024 04:00 PM [place]ORY - NONE [place] [facility] Feb 22, 2024 04:00 PM [place]ORY - NONE [place] [facility] Apr 09, 2024 09:00 AM [place] [facility] Apr 12, 2024 11:30 AM [place]ORY - NONE [place] [facility] Social History: Smoking Status (Most current) and Tobacco Use (All prior to encounter date) This section includes the most current, and the historical, smoking and tobacco- related health factors from the [place] facility where the Encounter took place. Current Smoking Status This section includes the most current smoking, or tobacco-related health factor, from the [place] facility where the Encounter took place. Date/Time Current Smoking Status Comment Facil ity Aug 18, 2022 08:30 AM VA-TOBACCO FORMER USER [facility] Tobacco Use History This section includes a history of the smoking, or tobacco-related health factors, that were collected on or before the date of the Encounter. The data comes from the [place] facility where the Encounter took place. Date/Time [...] ALL of a patient's completed or amended [place] Advance and Rescinded Directives. The entries below indicate that a directive exists for the patient, but an actual copy is not included with this document. The data comes from all [place] facilities. Date Advance Directives Provider Source Jun 22, 2021 ADVANCE DIRECTIVE DISCUSSION ALLYSON GRAF [facility] Jun 22, 2021 ADVANCE DIRECTIVE ALLYSON GRAF [facility] Mar 09, 2007 ADVANCE DIRECTIVE SOLEDAD WOLFF [facility] Encounter Notes: All associated encounter notes [...] his foot since Jun 2022. going to [place] [facility] each week. 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 - Education provided on therapeutic nonpharmacologic management to achieve goals. - Vet advised of recent labs. - [place] verbalized understanding to all plans discussed today. Questions were answered to vet's satisfaction. Time spent: 15 minutes RTC: 4-6 weeks /toby/ SOLEDAD ELLIS PHARM.DTiny, BCPS [facility]OC Clinical Custody Officer Signed: 10/11/2023 16:04 SOLEDAD ELLIS [facility]
--- OUTSIDE RECORDS SUMMARY | 2024-07-15 09:25 | XMS_ITS | Encounter Summary ---
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 [facility] [place] Address [address] [place] [address] Care Team Providers Care Regulatory Analyst Name Role Phone CHARLEE FISH Primary [...] MEDIC ARE SUPPL EMENT Jul 31, 2018 [id number] [phone] RENBRITTNEY,KANE ALEX PATIENT [place] SUPPLEMEN [place]OT MEDIC ARE SUPPL EMENT Jul 31, 2018 [id number] [phone] RENAUX,JU ALEX [place]) MEDICARE ADVANTAGE MCR (WNR) Jul 31, 2017 [id number] [phone] RENAUX,JU ALEX PATIENT [place] MED[place] SUPPLEMEN SCOT MEDIC ARE SUPPL EMENT Jul 31, 2018 [id number] RENAUX,JU ALEX [place] MEDIC ARE SUPPL EMENT Jul 31, 2018 [id number] [phone] RENAUX,JU ALEX PATIENT MEDICARE (WNR) MEDICARE (M) PART A May 31, 2011 PART A [id number] [phone] KANE PÉREZ PATIENT MEDICARE (WNR) MEDICARE (M) PART B May 31, 2011 PART B [id number] [phone] KANE PÉREZ PATIENT Selected Encounter This section includes the information on record at [place] for the Encounter. Date/Time Encounter Type Encounter Description Reason Provider Source Aug 29, 2023 03:30 PM MTMS BY CELESTE PEARL 15 MIN TELEPHONE PRIMARY CARE ICD-10-CM E11.42 Type 2 diabetes mellitus with diabetic polyneuropathy KARI BRITO [facility] Encounter Template Text not used by [place] Assessments - Encounter Diagnoses This section includes the primary and secondary diagnoses documented for the Encounter. Date/Time Primary/Secondary Diagnosis Diagnosis Name Provider Source Aug 29, 2023 03:30 PM PRIMARY Type 2 diabetes mellitus with diabetic polyneuropathy KARI BRITO [facility] Plan of Treatment: Future Appointments (+ 6 months) and Future Tests (+/- 45 days) The Plan of Treatment section includes future care activities for the patient from all [place] treatmentfacilities. This section includes future appointments and future orders which are active, pending or scheduled. Future Appointments This section includes appointments that were scheduled to occur 6 months from the date of the Encounter, up to a maximum of 20 appointments. The data comes from all [place] treatment facilities. Appointment Date/Time Appointment Type Appointme nt Facility Name Oct 11, 2023 03:30 PM [facility] Nov 23, 2023 03:30 PM [facility] December 02, 2023 07:01 AM [facility] Jan 18, 2024 04:00 PM [facility] Feb 22, 2024 04:00 PM [facility] Social History: Smoking Status (Most current) and Tobacco Use (All prior to encounter date) This section includes the most current, and the historical, smoking and tobacco- related health factors from the [place] facility where the Encounter took place. Current Smoking Status This section includes the most current smoking, or tobacco-related health factor, from the [place] facility where the Encounter took place. Date/Time Current Smoking Status Quique peng Aug 18, 2022 08:30 AM VA-TOBACCO FORMER USER [facility] Tobacco Use History This section includes a history of the smoking, or tobacco-related health factors, that were collected on or before the date of the Encounter. The data comes from the [place] facility where the Encounter took place. Date/Time [...] ALL of a patient's completed or amended [place] Advance and Rescinded Directives. The entries below indicate that a directive exists for the patient, but an actual copy is not included with this document. The data comes from all [facility]. Date Advance Directives Provider Source Jun 22, 2021 ADVANCE DIRECTIVE DISCUSSION ALLYSON GRAF [facility] Jun 22, 2021 ADVANCE [address]YSON GRAF [facility] Mar 09, 2007 ADVANCE DIRECTIVE SOLEDAD WOLFF [facility] Encounter Notes: All associated encounter notes This section contains the clinical notes associated to the Encounter. Date/Time Encounter Note(s) Provider Source Aug 29, 2023 12:52 PM PHARMACY NOTE: LOCAL TITLE: PHARMACOTHERAPY-CLINICAL PHARMACY NOTE STANDARD TITLE: PHARMACY NOTE DATE OF NOTE: AUG 29, 2023@12:52 ENTRY DATE: AUG 29, 2023@12:52:10 AUTHOR: KARI BRITOIGNER: URGENCY: STATUS: COMPLETED BACKGROUND: BETOMIGUELINA is a 78 YO MALE contacted by phone for medication management, mainly for DM. PMH is significant for T2DM with chronic foot infections, GERD, and HLD. SUBJECTIVE: In brief, reports doing ok. Continues to struggle with a non-healing foot wound and has been working closely with a local polisher hand/marketing content specialist. He reports they are looking into the potential that it is infected and has an upcoming MRI. Regarding DM, notes readings are up bit. Lifestyle: Tobacco: Denies EtOH: Denies Food and Drink: Breakfast: egg/stoner/1 piece of toast on occasion a bkfst roll or milk/cereal Lunch: varies--sometimes skips or a sandwich or grapes/cheese, beef stew Evening meal: grain sampler -- sandwich or fruit/cheese Snacks: snickers, [place] kisses, more cookies lately Beverages: diet coke, [...] 08/25 143/ 08/24 144/ 08/23 157/ 08/22 166/ 08/21 16908/20 170/ 08/19 08/18 150/ 08/17 149/ ave: 157 ------Previous Readings-------- Dec f/u ave: 139 Sept f/u ave:124 Feb f/u ave: 138 Home [...] - Vet advised of recent labs. - [place] verbalized understanding to all plans discussed today. Questions were answered to vet's satisfaction. Time spent: 21 minutes RTC: - 10/10 pharmD phone prefers to avoid [facility]-only has a cellphone /toby/ KARI BRITO PHARM Twyla, BCPS Clinical Pharmacist Practitioner-[facility] Signed: 08/29/2023 15:56 KARI BRITO [facility]
--- OUTSIDE RECORDS SUMMARY | 2024-07-15 09:26 | XMS_ITS | Encounter Summary ---
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 [place] [facility] [place] Organization [facility] [place] Address [address] [place] [address] Care Team Providers Care Shafting Worker Name Role Phone CHARLEE FISH Primary [...] MEDIC ARE SUPPL EMENT Jul 31, 2018 [id number] RENBRITTNEY,KANE ALEX [place] MEDIC ARE SUPPL EMENT Jul 31, 2018 [id number] [phone] RENAUX,JU [place]) MED[place] ADVANTAGE MCR (WNR) Jul 31, 2017 [id number] [phone] RENAUX,JU ALEX [place] MEDIC ARE SUPPL EMENT Jul 31, 2018 [id number] RENAUX,JU A[place] MEDIC ARE SUPPL EMENT Jul 31, 2018 [id number] [phone] RENAUX,JU ALEX PATIENT MEDICARE (WNR) MEDICARE (M) PART A May 31, 2011 PART A [id number] [phone] KANE PÉREZ PATIENT MEDICARE (WNR) MEDICARE (M) PART B May 31, 2011 PART B [id number] [phone] KANE PÉREZ PATIENT Selected Encounter This section includes the information on record at [place] for the Encounter. Date/Time Encounter Type Encounter Description Reason Provider Source Nov 23, 2023 03:30 PM MTMS BY CELESTE PEARL 15 MIN TELEPHONE PRIMARY CARE ICD-10-CM E11.42 Type 2 diabetes mellitus with diabetic polyneuropathy KARI BRITO [facility] Encounter Template Text not used by [place] Assessments - Encounter Diagnoses This section includes the primary and secondary diagnoses documented for the Encounter. Date/Time Primary/Secondary Diagnosis Diagnosis Name Provider Source Nov 23, 2023 03:30 PM PRIMARY Type 2 diabetes mellitus with diabetic polyneuropathy KARI BRITO [facility] Plan of Treatment: Future Appointments (+ 6 months) and Future Tests (+/- 45 days) The Plan of Treatment section includes future care activities for the patient from all [place] treatmentfacilities. This section includes future appointments and future orders which are active, pending or scheduled. Future Appointments This section includes appointments that were scheduled to occur 6 months from the date of the Encounter, up to a maximum of 20 appointments. The data comes from all [place] treatment facilities. Appointment Date/Time Appointment Type Appointme nt Facility Name December 02, 2023 07:01 AM [facility]ORY - NONE [place] [facility] Jan 18, 2024 04:00 PM AMBULATORY - NONE [place] [facility] Feb 22, 2024 04:00 [...] 2024 02:45 PM [facility] Social History: Smoking Status (Most current) and Tobacco Use (All prior to encounter date) This section includes the most current, and the historical, smoking and tobacco- related health factors from the [place] facility where the Encounter took place. Current Smoking Status This section includes the most current smoking, or tobacco-related health factor, from the [place] facility where the Encounter took place. Date/Time Current Smoking Status Comment Facil ity Aug 18, 2022 08:30 AM VA-TOBACCO FORMER USER [facility] Tobacco Use History This section includes a history of the smoking, or tobacco-related health factors, that were collected on or before the date of the Encounter. The data comes from the [facility] where the Encounter took place. Date/Time Smoking Status/Tobacco Use Comment F acility Aug 18, 2022 08:30 AM VA-TOBACCO QUIT [address] [facility] May 03, 2021 08:00 AM VA-TOBACCO FORMER USER [facility] May 03, 2021 08:00 AM VA-TOBACCO QUIT [address] [facility] Apr 21, 2020 09:00 AM VA-TOBACCO FORMER USER [facility] Apr 21, 2020 09:00 AM VA-TOBACCO QUIT [address] [facility] Apr 03, 2018 03:16 PM FORMER TOBACCO USE >1Y <7Y [facility] Mar 09, 2007 10:41 AM CURRENT TOBACCO USER [facility] Advance Directives: All historical and [...] 2021 ADVANCE DIRECTIVE DISCUSSION ALLYSON GRAF 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 - [place] verbalized understanding to all plans discussed today. Questions were answered to vet's satisfaction. Time spent: 21 minutes RTC: - 01/17 pharmD phone prefers to avoid [facility]-only has a cellphone /toby/ CELESTE MILLAN, BCPS Clinical Pharmacist Practitioner-[facility] Signed: 11/24/2023 07:[address] [facility]
--- OUTSIDE RECORDS SUMMARY | 2024-07-15 09:27 | XMS_ITS | Encounter Summary ---
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 Address [address] [place] [address] Care Team Providers Care Mems Engineer Name Role Phone CHARLEE FISH Primary Care Provider [facility] Insurance Providers: All historical and [...] MEDIC ARE SUPPL EMENT Jul 31, 2018 [id number] KANE PÉREZ ALEX [place]IENT [place] MEDIC ARE SUPPL EMENT Jul 31, 2018 [id number] [phone] RENBRITTNEY,JU [place]) MED[place]ARE ADVANTAGE MCR (WNR) Jul 31, 2017 [id number] [phone] RENBRITTNEY,KANE ALEX PATIENT [place] SUPPLEMEN [place]OT MEDIC ARE SUPPL EMENT Jul 31, 2018 [id number] RENBRITTNEY,KANE ALEX [place] MEDIC ARE SUPPL EMENT Jul 31, 2018 [id number] [phone] KANE PÉREZ PATIENT MEDICARE (WNR) MEDICARE (M) PART A May 31, 2011 PART A [id number] [phone] KANE PÉREZ PATIENT MEDICARE (WNR) MEDICARE (M) PART B May 31, 2011 PART B [id number] KANE PÉREZ PATIENT Selected Encounter This section includes the information on record at [place] for the Encounter. Date/Time Encounter Type Encounter Description Reason Provider Source Jan 19, 2024 09:01 AM QNHP OL DIG ASSMT&MGMT 5-10 CLINICAL PHARMACY ICD-10-CM E11.42 Type 2 diabetes mellitus with diabetic polyneuropathy HUBERT CHOWDHURY [facility] Encounter Template Text not used by [place] Assessments - Encounter Diagnoses This section includes the primary and secondary diagnoses documented for the Encounter. Date/Time Primary/Secondary Diagnosis Diagnosis Name Provider Source Jan 19, 2024 09:04 AM PRIMARY Type 2 diabetes mellitus with diabetic polyneuropathy HUBERT CHOWDHURY [facility] Plan of Treatment: Future Appointments (+ 6 months) and Future Tests (+/- 45 days) The Plan of Treatment section includes future care activities for the patient [facility] [place] [facility] This section includes future appointments and [...] 04:00 PM AMBULATORY - NONE [place] [facility] Apr 09, 2024 09:00 AM AMBULATORY - NONE [place] [facility] Apr 12, 2024 11:30 AM AMBULATORY - NONE [place] [facility] Apr 17, 2024 01:30 PM AMBULATORY - NONE [place] [facility] Apr 26, 2024 01:30 PM AM[facility]ULATORY - NONE [place] [facility] May 17, 2024 02:00 PM AM[facility]ULATORY - NONE [place] [facility] May 17, 2024 02:45 PM [facility] [place] [facility] Jun 11, 2024 11:30 AM AM[facility]ULATORY - NONE [place] [facility] Jul 09, 2024 11:30 AM [facility]ORY - NONE [place] [facility] Social History: Smoking Status (Most current) and [...] 18, 2022 08:30 AM VA-TOBACCO FORMER USER [facility] Tobacco Use History This section includes a history of the smoking, or tobacco-related health factors, that were collected on or before the date of the Encounter. The data comes from the [place] facility where the Encounter took place. Date/Time Smoking Status/Tobacco Use Comment F acility Aug 18, 2022 08:30 AM VA-TOBACCO QUIT 15 YRS OR MORE [facility] May 03, 2021 08:00 AM VA-TOBACCO FORMER USER [facility] May 03, 2021 08:00 AM VA-TOBACCO QUIT 15 YRS OR MORE [facility] Apr 21, 2020 09:00 AM VA-TOBACCO FORMER USER [facility] Apr 21, 2020 09:00 AM VA-TOBACCO QUIT 15 YRS OR MORE [facility] Apr 03, 2018 03:16 PM FORMER TOBACCO USE >1Y <7Y [facility] Mar 09, 2007 10:41 AM CURRENT TOBACCO USER [facility] Advance Directives: All historical and current [...] 22, 2021 ADVANCE DIRECTIVE DISCUSSION ALLYSON GRAF [facility] Jun 22, 2021 ADVANCE DIRECTIVE ALLYSON GRAF [facility] Mar 09, 2007 ADVANCE DIRECTIVE SOLEDAD WOLFF [...] Pharm.D PHARMACIST Signed: 01/19/2024 09:04 HUBERT CHOWDHURY [facility]
--- OUTSIDE RECORDS SUMMARY | 2024-07-15 09:27 | XMS_ITS | Encounter Summary ---
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 Address [address] [place] [address] Care Team Providers Care Content Assistant Name Role Phone CHARLEE FISH Primary [...] MEDIC ARE SUPPL EMENT Jul 31, 2018 [id number] RENKANE LUGO [place]LEX [place] MEDIC ARE SUPPL EMENT Jul 31, 2018 [id number] [phone] RENBRITTNEY,JU ALEX PATIENT [place] [facility] (WNR) MEDICARE ADVANTAGE [facility] (WNR) Jul 31, 2017 [id number] [phone] RENAUX,JU ALEX [place] MEDIC ARE SUPPL EMENT Jul 31, 2018 [id number] RENAUX,JU ALEX [place] MEDIC ARE SUPPL EMENT Jul 31, 2018 [id number] [phone] RENAUX,JU ALEX PATIENT MEDICARE (WNR) MEDICARE (M) PART A May 31, 2011 PART A [id number] [phone] KANE PÉREZ PATIENT MEDICARE (WNR) MEDICARE (M) PART B May 31, 2011 PART B [id number] [phone] KANE PÉREZ PATIENT Selected Encounter This section includes the information on record at [place] for the Encounter. Date/Time Encounter Type Encounter Description Reason Provider Source Feb 22, 2024 04:00 PM MTMS BY PHARM ERICK 15 MIN TELEPHONE PRIMARY CARE ICD-10-CM E11.42 Type 2 diabetes mellitus with diabetic polyneuropathy KARI BRITO [facility] Encounter Template Text not used by CT Assessments - Encounter Diagnoses This section includes [...] activities for the patient from all [place] [facility] This section includes future appointments and future orders which are active, pending or scheduled. Future Appointments This section includes appointments that were scheduled to occur 6 months from the date of the Encounter, up to a maximum of 20 appointments. The data comes from all [place] treatment facilities. Appointment Date/Time Appointment Type Appointme nt Facility Name Apr 09, 2024 09:00 AM [facility]ORY - NONE [place] [facility] Apr 12, 2024 11:30 AM AM[facility]ULATORY - NONE [place] [facility] Apr 17, 2024 01:30 PM AMBULATORY - NONE [place] [facility] Apr 26, 2024 01:30 PM AM[facility]ULATORY - NONE [place] [facility] May 17, 2024 02:00 PM AMBULATORY - NONE [place] [facility] May 17, 2024 02:45 PM AMBULATORY - MEDICINE [facility] Jun 11, 2024 11:30 AM AM[facility]ULATORY - NONE [place] [facility] Jul 09, 2024 11:30 AM AM[facility]ULATORY - NONE [place] [facility] Aug 14, 2024 11:30 AM [facility]ORY - NONE [place] [facility] Social History: Smoking Status (Most current) [...] 08:30 AM VA-TOBACCO FORMER USER [facility] Tobacco Use History This section includes a history of the smoking, or tobacco-related health factors, that were collected on or before the date of the Encounter. The data comes from the [facility] where the Encounter took place. [...] this document. The data comes from all [facility]. Date Advance Directives Provider Source Jun 22, 2021 ADVANCE DIRECTIVE DISCUSSION ALLYSON GRAF [facility] Jun 22, 2021 ADVANCE DIRECTIVE ALLYSON GRAF [facility] Mar 09, 2007 ADVANCE DIRECTIVE SOLEDAD WOLFF [facility] Encounter Notes: All associated encounter notes This section contains the clinical notes associated to the Encounter. 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 other [...] ALB/CREAT RATIO,U 9.70 mg/gCreat 0 - 30 [employer] Groupstyle Ashley 3 (Smart Phone Marli) Glucose Monitoring [...] approved for use on other sites.) 2. [employer] Freestyle Ashley Sensor was inserted subcutaneously via insertion device without issue by . 3. Discussed the need to change the sensor every 14 days. If adhesive does not stick and sensor falls off before 14 days, is to simply replace with a new sensor. [place] is instructed to then contact [employer] Customer () Service at to report this to the company. FREESTYLE ASHLEY 3 MARLI using SMART PHONE: 1. Marli was downloaded to Cell [employer] phone from marli store ([employer] or [employer]) 2. Account is set up with username and password established. 3. Patient was given the CT Practice ID: [email or web address] or emailed an invitation through [employer] to share data with [facility]. *Counseled on using same email for all [employer] or M[employer] accounts. 4. Tutorial is reviewed at initiation [...] every 14 days. Additional Information Provided: 1. [place]berry instructed not to go through MRI or [...] 30 minutes at 3 feet of water. Chisel Worker is NOT waterproof. 8. Reviewed the use [...] having technical issues with the marli contact [facility]: [phone] 14. If you are unable to upload your device from home or share your data via your smartphone then you will need to be seen in clinic to upload your device at scheduled intervals as part of your agreement to receive CGM supplies and support through the CT. Newberry or visitor services representative verbalized understanding. ASSESSMENT: #T2DM with a positive c-peptide -Goal A1c <8% (FBG 80-160, PPG <210) per CT/DoD guidelines. Last A1c was up and just [...] - Vet advised of recent labs. - [place] verbalized understanding to all plans discussed today. Questions were answered to vet's satisfaction. Time spent: 30 minutes RTC: - 03/27 pharmD phone prefers to avoid [facility]-only has a cellphone /toby/ KARI BRITO PHARM D, BCPS Clinical Pharmacist Practitioner-4D [facility]CT Clinic Signed: 02/23/2024 08:40 KARI BRITO [facility]
--- OUTSIDE RECORDS SUMMARY | 2024-07-15 09:27 | XMS_ITS | Encounter Summary ---
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 Address [address] [place] [address] Care Team Providers Care Qa Automation Architect Name Role Phone CHARLEE FISH Primary Care [...] MEDIC ARE SUPPL EMENT Jul 31, 2018 [id number] RENAUX,JU A[place] MEDIC ARE SUPPL EMENT Jul 31, 2018 [id number] [phone] RENAUX,JU A[place] [facility] (WNR) MEDICARE ADVANTAGE [facility] (WNR) Jul 31, 2017 [id number] [phone] RENAUX,JU ALEX PATIENT [place] MED[place] SUPP[place] MEDIC ARE SUPPL EMENT Jul 31, 2018 [id number] RENAUX,JU A[place] MED[place] ARE SUPPL EMENT Jul 31, 2018 [id number] [phone] RENAUX,JU ALEX PATIENT MEDICARE (WNR) MEDICARE (M) PART A May 31, 2011 PART A [id number] KANE PÉREZ PATIENT MEDICARE (WNR) MEDICARE (M) PART B May 31, 2011 PART B [id number] [phone] KANE PÉREZ PATIENT Selected Encounter This section includes the information on record at [place] for the Encounter. Date/Time Encounter Type Encounter Description Reason Provider Source Feb 27, 2024 10:11 AM Outpatient Encounter TELEPHONE/ANCILLARY JOSUÉ CAPPS Encounter Template Text not used by [place] Plan of Treatment: Future Appointments (+ 6 months) and Future Tests (+/- 45 days) The Plan of Treatment section includes future care activities for the patient from all [place] [facility]. This section includes future appointments [...] 2024 09:00 AM [place] [facility] Apr 12, 2024 11:30 AM AM[place]ONE [place] [facility] Apr 17, 2024 01:30 PM [place]ONE [place] [facility] Apr 26, 2024 01:30 PM [place] [facility] May 17, 2024 02:00 PM AM[place] NONE [place] [facility] May 17, 2024 02:45 PM AMBULATORY - MEDICINE [facility] Jun 11, 2024 11:30 AM [place]ONE [place] [facility] [facility] Jul 09, 2024 11:30 AM [place] - [place]ONE [place] [facility] [facility] Aug 14, 2024 11:30 AM [place]ONE [place] [facility] Social History: Smoking Status (Most [...] 18, 2022 08:30 AM VA-TOBACCO FORMER USER [facility] Tobacco Use History This section includes a history of the smoking, or tobacco-related health factors, that were collected on or before the date of the Encounter. The data comes from the [place] facility where the Encounter took place. Date/Time Smoking Status/Tobacco Use Comment F acility Aug 18, 2022 08:30 AM VA-TOBACCO QUIT 15 YRS OR MORE [facility] May 03, 2021 08:00 AM VA-TOBACCO FORMER USER [facility] May 03, 2021 08:00 AM VA-TOBACCO QUIT 15 YRS OR MORE [facility] Apr 21, 2020 09:00 AM VA-TOBACCO FORMER USER [facility] Apr 21, 2020 09:00 AM VA-TOBACCO QUIT 15 YRS OR MORE [facility] Apr 03, 2018 03:16 PM FORMER TOBACCO USE >1Y <7Y [facility] Mar 09, 2007 10:41 AM CURRENT TOBACCO USER [facility] Advance Directives: All historical and [...] 22, 2021 ADVANCE DIRECTIVE DISCUSSION ALLYSON GRAF [facility] Jun 22, 2021 ADVANCE DIRECTIVE ALLYSON GRAF [facility] Mar 09, 2007 ADVANCE DIRECTIVE SOLEDAD [...] ENTRY DATE: FEB 28, 2024@13:49:33 AUTHOR: JOSUÉ CAPPSIGNER: URGENCY: STATUS: COMPLETED Whole Health Questions Whole [...] MA, RN Signed: 02/28/2024 16:12 JOSUÉ CAPPS [facility]
--- OUTSIDE RECORDS SUMMARY | 2024-07-15 09:27 | XMS_ITS | Encounter Summary ---
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 [facility] [place] Address [address] [place] [address] Care Team Providers Care Sweet Pickle Maker Name Role Phone CHARLEE FISH Primary [...] MEDIC ARE SUPPL EMENT Jul 31, 2018 [id number] RENAUX,JU A[place] MED[place] ARE SUPPL EMENT Jul 31, 2018 [id number] [phone] RENAUX,JU A[place] [facility] (WNR) MEDICARE ADVANTAGE [facility] (WNR) Jul 31, 2017 [id number] [phone] RENAUX,JU ALEX PATIENT [place] MED[place] SUPP[place] MEDIC ARE SUPPL EMENT Jul 31, 2018 [id number] RENAUX,JU A[place] MEDIC ARE SUPPL EMENT Jul 31, 2018 [id number] [phone] RENAUX,JU ALEX PATIENT MEDICARE (WNR) MEDICARE (M) PART A May 31, 2011 PART A [id number] [phone] KANE PÉREZ PATIENT MEDICARE (WNR) MEDICARE (M) PART B May 31, 2011 PART B [id number] [phone] KANE PÉREZ PATIENT Selected Encounter This section includes the information on record at [place] for the Encounter. Date/Time Encounter Type Encounter Description Reason Pro vider Source Mar 14, 2024 02:32 PM Outpatient Encounter CLINICAL PHARMACY IHE Encounter Template Text not used by [place] Plan of Treatment: Future Appointments (+ 6 months) and Future Tests (+/- 45 days) The Plan of Treatment section includes future care activities for the patient from all [place] [facility]. This section includes future appointments and future orders which are active, pending or scheduled. Future Appointments This section includes appointments that were scheduled to occur 6 months from the date of the Encounter, up to a maximum of 20 appointments. The data comes from all [facility] facilities. Appointment Date/Time Appointment Type Appointme nt Facility Name Apr 09, 2024 09:00 AM [place] [facility] Apr 12, 2024 11:30 AM [place] [facility] Apr 17, 2024 01:30 PM [place] [facility] Apr 26, 2024 01:30 PM [place] [facility] May 17, 2024 02:00 PM [place] [facility] May 17, 2024 02:45 PM AMBULATORY - MEDICINE [facility] Jun 11, 2024 11:30 AM [place] [facility] Jul 09, 2024 11:30 AM [place] - [place] [facility] Aug 14, 2024 11:30 AM [place] [facility] Social History: Smoking Status (Most current) and Tobacco Use (All prior to encounter date) This section includes the most current, and the historical, smoking and tobacco- related health factors from the [place] facility where the Encounter took place. Current Smoking Status This section includes the most current smoking, or tobacco-related health factor, from the [place] facility where the Encounter took place. Date/Time Current Smoking Status Quique peng Aug 18, 2022 08:30 AM VA-TOBACCO FORMER USER [facility] Tobacco Use History This section includes a history of the smoking, or tobacco-related health factors, that were collected on or before the date of the Encounter. The data comes from the [place] facility where the Encounter took place. Date/Time [...] ALL of a patient's completed or amended [place] Advance and Rescinded Directives. The entries below indicate that a directive exists for the patient, but an actual copy is not included with this document. The data comes from all [facility]. Date Advance Directives Provider Source Jun 22, 2021 ADVANCE DIRECTIVE DISCUSSION ALLYSON GRAF [facility] Jun 22, 2021 ADVANCE DIRECTIVE ALLYSON GRAF [facility] Mar 09, 2007 ADVANCE DIRECTIVE [...] ASHISH STOKES EXP COSIGNER: URGENCY: STATUS: COMPLETED [facility] [address] [place] [address] Feb MIGUELINA PÉREZ [address] [address] Dear Fisher, A package containing the following medication(s)/supply item(s) was returned by the USPS/UPS: [id number]$ INSULIN,GLARGINE-YFGN 100UNIT/ML PEN 3ML Reason for return: Other: [employer] [facility] MAIL RETURNED Action: The medication or supply items will be resent Comment: MEDICATION A PART OF THE ISSUE WITH [employer]. MEDICATION WAS RETURNED AND THEN RESENT THROUGH LOCAL MAIL. NO TRACKING NUMBER AVAILABLE AT THIS TIME DUE TO BEING AFTER MAIL CUT OFF TIME. MEDICATION SHOULD MAIL OUT ON Monday03/18/2024. /toby/ ASHISH STOKES diploma pharmacy technician Signed: 03/14/2024 14:34 ASHISH STOKES [facility]
--- OUTSIDE RECORDS SUMMARY | 2024-07-15 09:27 | XMS_ITS | Encounter Summary ---
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 Address [address] [place] [address] Care Team Providers Care Wellfield Technician Name Role Phone CHARLEE FISH Primary [...] MEDIC ARE SUPPL EMENT Jul 31, 2018 [id number] KANE MANTILLA ALEX [place] MED[place] ARE SUPPL EMENT Jul 31, 2018 [id number] [phone] RENBRITTNEY,JU ALEX PAT[place] [facility] ([place]) MEDICARE ADVANTAGE [facility] (WNR) Jul 31, 2017 [id number] [phone] RENBRITTNEY,KANE ALEX PATIENT [place] MED[place] SUPP[place] MEDIC ARE SUPPL EMENT Jul 31, 2018 [id number] RENBRITTNEY,KANE ALEX [place] MEDIC ARE SUPPL EMENT Jul 31, 2018 [id number] [phone] KANE MANTILLA PATIENT MEDICARE (WNR) MEDICARE (M) PART A May 31, 2011 PART A [id number] [phone] KANE MANTILLA PATIENT MEDICARE (WNR) MEDICARE (M) PART B May 31, 2011 PART B [id number] [phone] KANE MANTILLA PATIENT Selected Encounter This section includes the information on record at [place] for the Encounter. Date/Time Encounter Type Encounter Description Reason Provider Source Mar 27, 2024 01:53 PM QNHP OL DIG ASSMT&MGMT 11-20 CLINICAL PHARMACY ICD-10-CM E11.42 Type 2 diabetes mellitus with diabetic polyneuropathy KARI BRITO [facility] Encounter Template Text not used by [place] Assessments - Encounter Diagnoses This section includes the primary and secondary diagnoses documented for the Encounter. Date/Time Primary/Secondary Diagnosis Diagnosis Name Provider Source Mar 27, 2024 01:56 PM PRIMARY Type 2 diabetes mellitus with diabetic polyneuropathy KARI BRITO [facility] Plan of Treatment: Future Appointments (+ 6 months) and Future Tests (+/- 45 days) The Plan of Treatment section includes future care activities for the patient from all [place] [facility]. This section includes future appointments and future orders which are active, pending or scheduled. Future Appointments This section includes appointments that were scheduled to occur 6 months from the date of the Encounter, up to a maximum of 20 appointments. The data comes from all [place] treatment facilities. Appointment Date/Time Appointment Type Appointme nt Facility Name Apr 09, 2024 09:00 AM [place] [facility] Apr 12, 2024 11:30 AM [place] [facility] Apr 17, 2024 01:30 PM [place] [facility] Apr 26, 2024 01:30 PM [place] [facility] May 17, 2024 02:00 PM [place] [facility] May 17, 2024 02:45 PM [place] [facility] Jun 11, 2024 11:30 AM [place] [facility] Jul 09, 2024 11:30 AM [place] [facility] Aug 14, 2024 11:30 AM [place] [facility] Social History: Smoking Status (Most current) and Tobacco Use (All prior to encounter date) This section includes the most current, and the historical, smoking and tobacco- related health factors from the [place] facility where the Encounter took place. Current Smoking Status This section includes the most current smoking, or tobacco-related health factor, from the [place] facility where the Encounter took place. Date/Time Current Smoking Status Comment Facil ity Aug 18, 2022 08:30 AM VA-TOBACCO FORMER USER [facility] Tobacco Use History This section includes a history of the smoking, or tobacco-related health factors, that were collected on or before the date of the Encounter. The data comes from the [place] facility where the Encounter took place. Date/Time [...] ALL of a patient's completed or amended [place] Advance and Rescinded Directives. The entries below indicate that a directive exists for the patient, but an actual copy is not included with this document. The data comes from all [facility]. Date Advance Directives Provider Source Jun 22, 2021 ADVANCE DIRECTIVE DISCUSSION ALLYSON GRAF [facility] Jun 22, 2021 ADVANCE DIRECTIVE ALLYSON GRAF [facility] Mar 09, 2007 ADVANCE DIRECTIVE SOLEDAD WOLFF [facility] Encounter Notes: All associated encounter notes This section contains the clinical notes associated to the Encounter. Date/Time Encounter Note(s) Provider Source Mar 27, 2024 01:53 PM DATA CENTER CONSULTANT NOTE: LOCAL TITLE: DIABETES DATA CENTER CONSULTANT NOTE STANDARD TITLE: DATA CENTER CONSULTANT NOTE DATE OF NOTE: MAR 27, 2024@13:53 ENTRY DATE: MAR 27, 2024@13:53:20 AUTHOR: NAIDL,KARI EXP COSIGNER: URGENCY: STATUS: COMPLETED BACKGROUND: BETOMIGUELINA is a 78 YO MALE followed by this life underwriter for DM. A chart review was [...] brief episodes of hypoglycemia noted in the first leveler. A couple days with more significantly elevated [...] carb intake and/or a referral to our millinery worker. PLAN: Medications: -Continue present regimen, as above Monitoring: - SMBG prn - Continue Ashley 3 CGM -Using an Piqorahone 8 plus #Disease-Specific Med Rec: Completed today [...] PACT Clinic Signed: 03/27/2024 13:57 KARI BRITO [facility]
--- OUTSIDE RECORDS SUMMARY | 2024-07-15 09:27 | XMS_ITS | Encounter Summary ---
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 Address [address] [place] [address] Care Team Providers Care Ophthalmic Assistant Name Role Phone CHARLEE FISH Primary [...] MEDIC ARE SUPPL EMENT Jul 31, 2018 [id number] RODNEYBRITTNEYKANE ALEX PATIENT [place] MEDIC ARE SUPPL EMENT Jul 31, 2018 [id number] [phone] RENBRITTNEYKANE ALEX [place]IENT [place] [facility] (WNR) MEDICARE ADVANTAGE [facility] (WNR) Jul 31, 2017 [id number] [phone] RENBRITTNEY,KANE ALEX PATIENT [place] MEDIC ARE SUPPL EMENT Jul 31, 2018 [id number] RENBRITTNEY,KANE ALEX [place] MEDIC ARE SUPPL EMENT Jul 31, 2018 [id number] [phone] RENBRITTNEY,KANE ALEX PATIENT MEDICARE (WNR) MEDICARE (M) PART A May 31, 2011 PART A [id number] [id number] KANE PÉREZ PATIENT MEDICARE (WNR) MEDICARE (M) PART B May 31, 2011 PART B [id number] KANE PÉREZ PATIENT Selected Encounter This section [...] 22, 2021 ADVANCE DIRECTIVE DISCUSSION ALLYSON GRAF [facility] Jun 22, 2021 ADVANCE DIRECTIVE ALLYSON GRAF [facility] Mar 09, 2007 ADVANCE DIRECTIVE SOLEDAD WOLFF [facility]
--- OUTSIDE RECORDS SUMMARY | 2024-07-15 09:27 | XMS_ITS | Encounter Summary ---
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 Address [address] [place] [address] Care Team Providers Care Fraud Examiner Name Role Phone CHARLEE FISH Primary [...] MEDIC ARE SUPPL EMENT Jul 31, 2018 [id number] RODNEYBRITTNEYKANE ALEX [place]IENT [place] MED[place] ARE SUPPL EMENT Jul 31, 2018 [id number] [phone] RENBRITTNEYKANE A[place]IENT [place] [facility] (WNR) MEDICARE ADVANTAGE [facility] (WNR) Jul 31, 2017 [id number] [phone] RENBRITTNEY,KANE ALEX [place] MEDIC ARE SUPPL EMENT Jul 31, 2018 [id number] RENBRITTNEY,JU ALEX [place] MED[place] ARE SUPPL EMENT Jul 31, 2018 [id number] [phone] RENBRITTNEY,KANE ALEX PATIENT MEDICARE (WNR) MEDICARE (M) PART B May 31, 2011 PART B [id number] KANE PÉREZ PATIENT MEDICARE ([place]NR) MEDICARE (M) PART A May 31, 2011 PART A [id number] [phone] KANE PÉREZ PATIENT Selected Encounter This section includes the information on record at [place] for the Encounter. Date/Time Encounter Type Encounter Description Reason Pro vider Source IHE Encounter Template Text not used by [place] Advance Directives: All historical and current Section [...] Jun 22, 2021 ADVANCE DIRECTIVE ALLYSON GRAF [facility] Mar 09, 2007 ADVANCE DIRECTIVE SOLEDAD WOLFF [facility]
--- OUTSIDE RECORDS SUMMARY | 2024-07-15 09:28 | XMS_ITS | Encounter Summary ---
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 Address [address] [place] [address] Care Team Providers Care High Lead Yarder Name Role Phone CHARLEE FISH Primary Care [...] MEDIC ARE SUPPL EMENT Jul 31, 2018 [id number] RODNEYBRITTNEYKANE A[place] MED[place] SUPPL EMENT Jul 31, 2018 [id number] [phone] RENBRITTNEYKANE A[place]IENT [place] [facility] (WNR) MEDICARE ADVANTAGE [facility] (WNR) Jul 31, 2017 [id number] [phone] RENBRITTNEY,KANE ALEX [place] MED[place] ARE SUPPL EMENT Jul 31, 2018 [id number] RENBRITTNEY,KANE ALEX [place] MEDIC ARE SUPPL EMENT Jul 31, 2018 [id number] [phone] RENBRITTNEY,KANE ALEX PATIENT MEDICARE (WNR) MEDICARE (M) PART A May 31, 2011 PART A [id number] KANE PÉREZ PATIENT MEDICARE ([place]NR) MEDICARE (M) PART B May 31, 2011 PART B [id number] [phone] KANE PÉREZ PATIENT Selected Encounter This section includes the information on record at [place] for the Encounter. Date/Time Encounter Type Encounter Description Reason Pro vider Source IHE Encounter Template Text not used by [place] Advance Directives: All historical and current Section Date Range: From patient's date of to the date document was created. This section includes ALL of a patient's completed or amended [place] Advance and Rescinded Directives. The entries below indicate that a directive exists for the patient, but an actual copy is not included with this document. The data comes from all [place] facilities. Date Advance Directives Provider Source Jun 22, 2021 ADVANCE DIRECTIVE DISCUSSION ALLYSON GRAF [facility] Jun 22, 2021 ADVANCE DIRECTIVE ALLYSON GRAF [facility] Mar 09, 2007 ADVANCE DIRECTIVE SOLEDAD WOLFF [facility]
--- OUTSIDE RECORDS SUMMARY | 2024-07-15 09:28 | XMS_ITS | Encounter Summary ---
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 Address [address] [place] [address] Care Team Providers Care Legal Recovery Specialist Name Role Phone CHARLEE FISH Primary [...] MEDIC ARE SUPPL EMENT Jul 31, 2018 [id number] [phone] RENKANE LUGO ALEX [place] MEDIC ARE SUPPL EMENT Jul 31, 2018 [id number] [phone] RENAUX,JU ALEX PAT[place] [facility] (WNR) MEDICARE ADVANTAGE [facility] (WNR) Jul 31, 2017 [id number] [phone] RENAUX,JU ALEX PATIENT [place] SUPP[place] MEDIC ARE SUPPL EMENT Jul 31, 2018 [id number] RENAUX,JU [place] MEDIC ARE SUPPL EMENT Jul 31, 2018 [id number] [phone] RENAUX,JU LAEX PATIENT MEDICARE (WNR) MEDICARE (M) PART A May 31, 2011 PART A [id number] KANE PÉREZ PATIENT MEDICARE (WNR) MEDICARE (M) PART B May 31, 2011 PART B [id number] [phone] KANE PÉREZ PATIENT Selected Encounter This section includes the information on record at [place] for the Encounter. Date/Time Encounter Type Encounter Description Reason Pro vider Source Apr 16, 2024 10:27 AM Outpatient Encounter TELEPHONE TRIAGE IHE Encounter Template Text not used by [place] Plan of Treatment: Future Appointments (+ 6 months) and Future Tests (+/- 45 days) The Plan of Treatment section includes future care activities for the patient [facility] This section includes future appointments and future orders which are active, pending or scheduled. Future Appointments This section includes appointments that were scheduled to occur 6 months from the date of the Encounter, up to a maximum of 20 appointments. The data comes from all [place] treatment facilities. Appointment Date/Time Appointment Type Appointme nt Facility Name Apr 17, 2024 01:30 PM [place] [facility] Apr 26, 2024 01:30 PM [place] [place] [facility] May 17, 2024 02:00 PM [place]ORY [place] NONE [place] [facility] May 17, 2024 02:45 PM AMBULATORY - MEDICINE [facility] Jun 11, 2024 11:30 AM AMBUL[place]ORY - NONE [place] [facility] Jul 09, 2024 11:30 AM [place]ORY - NONE [place] [facility] Aug 14, 2024 11:30 AM [place]ORY - NONE [place] [facility] Social History: Smoking Status (Most current) and Tobacco Use (All prior to encounter date) This section includes the most current, and the historical, smoking and tobacco- related health factors from the [place] facility where the Encounter took place. Current Smoking Status This section includes the most current smoking, or tobacco-related health factor, from the [place] facility where the Encounter took place. Date/Time Current Smoking Status Quique peng Aug 18, 2022 08:30 AM VA-TOBACCO FORMER USER [facility] Tobacco Use History This section includes a history of the smoking, or tobacco-related health factors, that were collected on or before the date of the Encounter. The data comes from the [place] facility where the Encounter took place. Date/Time Smoking Status/Tobacco Use Comment F acility Aug 18, 2022 08:30 AM VA-TOBACCO QUIT 15 YRS OR MORE [facility] May 03, 2021 08:00 AM VA-TOBACCO FORMER USER [facility] May 03, 2021 08:00 AM VA-TOBACCO QUIT 15 YRS OR MORE [facility] Apr 21, 2020 09:00 AM VA-TOBACCO FORMER USER [facility] Apr 21, 2020 09:00 AM VA-TOBACCO QUIT 15 YRS OR MORE [facility] Apr 03, 2018 03:16 PM FORMER TOBACCO USE >1Y <7Y [facility] Mar 09, 2007 10:41 AM CURRENT TOBACCO USER [facility] Advance Directives: All historical and current Section Date Range: From patient's date of to the date document was created. This section includes ALL of a patient's completed or amended [place] Advance and Rescinded Directives. The entries below indicate that a directive exists for the patient, but an actual copy is not included with this document. The data comes from all [facility]. Date Advance Directives Provider Source Jun 22, 2021 ADVANCE DIRECTIVE DISCUSSION ALLYSON GRAF [facility] Jun 22, 2021 ADVANCE DIRECTIVE ALLYSON GRAF [facility] Mar 09, 2007 ADVANCE DIRECTIVE [...] Call. Please contact at the following number: [phone] Other: is inquiring if he needs lab work for annual appt on 05/17, requested a call back at the number above This note was created by a 3 [facility] AMSRobinson/ROSHNI. Please do not alert this chart writer by adding as a signer for future communications. Alerts are not monitored by this user, please reach out to [facility] Leadership instead if indicated. /toby/ Nirav Rodriguez VISKimberly 23 [facility] Signed: 04/16/2024 10:28 Receipt Acknowledged By: 04/16/2024 10:55 /es/ DOROTHY YOO RN REGISTERED NURSE NIRAV RODRIGUEZ [facility]
--- OUTSIDE RECORDS SUMMARY | 2024-07-15 09:28 | XMS_ITS | Encounter Summary ---
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 [facility] [place] Organization [facility] [place] Address [address] [place] [address] Care Team Providers Care Filter Press Tender Name Role Phone CHARLEE FISH Primary [...] MEDIC ARE SUPPL EMENT Jul 31, 2018 [id number] [phone] RENBRITTNEY,KANE ALEX [place] MED[place] ARE SUPPL EMENT Jul 31, 2018 [id number] [phone] RENAUX,JU [place] [facility] [place]) MEDICARE ADVANTAGE [facility] (WNR) Jul 31, 2017 [id number] [phone] RENAUX,JU ALEX PAT[place] MEDIC ARE SUPPL EMENT Jul 31, 2018 [id number] RENAUX,JU ALEX [place] MEDIC ARE SUPPL EMENT Jul 31, 2018 [id number] [phone] RENAUX,JU ALEX PATIENT MEDICARE (WNR) MEDICARE (M) PART A May 31, 2011 PART A [id number] [phone] KANE PÉREZ PATIENT MEDICARE (WNR) MEDICARE (M) PART B May 31, 2011 PART B [id number] [phone] KANE PÉREZ PATIENT Selected Encounter This section includes the information on record at [place] for the Encounter. Date/Time Encounter Type Encounter Description Reason Provider Source May 17, 2024 02:45 PM OFFICE O/P EST MOD 30 MIN PRIMARY CARE/MEDICINE ICD-10-CM E11.42 Type 2 diabetes mellitus with diabetic polyneuropathy NENA FISH [facility] Encounter Template Text not used by [place] Assessments - Encounter Diagnoses This section includes the primary and secondary diagnoses documented for the Encounter. Date/Time Primary/Secondary Diagnosis Diagnosis Name Provider Source May 28, 2024 01:06 PM PRIMARY Type 2 diabetes mellitus with diabetic polyneuropathy NENA FISH A [facility] May 28, 2024 01:06 PM SECONDARY Encounter for immunization TREVON GRIJALVA [facility] May 28, 2024 01:06 PM SECONDARY Other fatigue NENA FISH A [facility] May 28, 2024 01:06 PM SECONDARY Personal history of diabetic foot ulcer NENA FISH A [facility] May 28, 2024 01:06 PM SECONDARY Tobacco use NENA FISH A [facility] May 28, 2024 01:06 PM SECONDARY Type 2 diabetes mellitus with diabetic neuropathy, unsp NENA FISH A [facility] May 28, 2024 01:06 PM SECONDARY Type 2 diabetes mellitus with foot ulcer NENA FISH A [facility] Plan of Treatment: Future Appointments (+ 6 months) and Future Tests (+/- 45 days) The Plan of Treatment section includes future care activities for the patient [facility] [place] [facility]. This section includes future appointments [...] 2024 11:30 AM AMBULATORY - NONE [facility] Jul 09, 2024 11:30 AM AMBULATORY - NONE [facility] Aug 14, 2024 11:30 AM AMBULATORY - NONE [facility] Lab Results: +/- 30 days of [...] Range Comment May 17, 2024 01:55 PM [facility] HEMOGLOBIN A1C Specimen Type: BLOOD Comment: [...] Apr 16, 2024 11:04 AM Reporting Lab: [facility] [id number] Performing Lab: [facility] [id number] HEMOGLOBIN A1C 8.4 H 4.0-6.0 May 17, 2024 01:55 PM [facility] BASIC METABOLIC PANEL+MG Specimen Type: PLASMA No comment entered. Ordering Provider: SOSA FISH Report Released Date/Time: Apr 16, 2024 11:04 AM Reporting Lab: [facility] [id number] Performing Lab: [facility] [id number] CREATININE 1.2 mg/dL 0.7-1.2 UREA NITROGEN 22 mg/dL 8-26 GLUCOSE 187 mg/dL H 70-100 SODIUM 138 mmol/L 136-145 POTASSIUM 4.5 mmol/L 3.5-5.1 CHLORIDE 102 mmol/L 98-107 CO2 25 mmol/L 22-29 CALCIUM 9.7 mg/dL 8.4-10.2 MAGNESIUM 1.7 mg/dL 1.6-2.6 ANION GAP 11 mmol/L 5-15 .CREAT EGFR(CKD-EPI ) 62 >60 May 17, 2024 01:55 PM [facility] CBC & DIFF Specimen Type: BLOOD Comment: Automated Differential Performed Ordering Provider: SOSA FISH Report Released Date/Time: Apr 16, 2024 11:04 AM Reporting Lab: [facility] [id number] Performing Lab: [facility] [id number] WBC 8.8 4.0-11.0 RBC 4.74 4.60-6.20 HGB [...] 95 0 70 240.8 35 [place] [facility] Immunizations: All administered on the encounter date This section contains immunizations associated to the Encounter. Immunization Series Date Issued Reaction Comments COVID-19 (PFIZER), MRNA, LNP -S, PF, JOSE-SUCROSE, 30 MCG/0.3 ML (AGES 12+ YEARS) 1 May 17, 2024 INFLUENZA, HIGH-DOSE, TRIVALENT, PF May 17 Social History: Smoking Status (Most current) and Tobacco Use (All prior to encounter date) This section includes the most current, and the historical, smoking and tobacco- related health factors from the [place] facility where the Encounter took place. Current Smoking Status This section includes the most current smoking, or tobacco-related health factor, from the [facility] where the Encounter took place. Date/Time Current Smoking Status Comment Facil ity May 17, 2024 02:45 PM VA-TOBACCO FORMER USER [facility] Tobacco Use History This section includes a history of the smoking, or tobacco-related health factors, that were collected on or before the date of the Encounter. The data comes from the [facility] where the Encounter took place. Date/Time Smoking Status/Tobacco Use Comment F acility May 17, 2024 02:45 PM VA-TOBACCO QUIT 15 YRS OR MORE [facility] Aug 18, 2022 08:30 AM VA-TOBACCO FORMER USER [facility] Aug 18, 2022 08:30 AM VA-TOBACCO QUIT 15 YRS OR MORE [facility] May 03, 2021 08:00 AM VA-TOBACCO FORMER USER [facility] May 03, 2021 08:00 AM VA-TOBACCO QUIT 15 YRS OR MORE [facility] Apr 21, 2020 09:00 AM VA-TOBACCO FORMER USER [facility] Apr 21, 2020 09:00 AM VA-TOBACCO QUIT 15 YRS OR MORE [facility] Apr 03, 2018 03:16 PM FORMER TOBACCO USE >1Y <7Y [facility] Mar 09, 2007 10:41 AM CURRENT TOBACCO USER [facility] Advance Directives: All historical and current [...] 22, 2021 ADVANCE DIRECTIVE DISCUSSION ALLYSON GRAF [facility] Jun 22, 2021 ADVANCE DIRECTIVE ALLYSON GRAF [facility] Mar 09, 2007 ADVANCE DIRECTIVE SOLEDAD [...] GRIJALVA LPN Signed: 05/21/2024 09:45 TREVON GRIJALVA [facility] May 17, 2024 01:02 PM INTERNAL [...] He has again been working with his hydraulic plumber. The wound is improved, but not completely closed. He is being treated with skin graft treatments through his [facility] hydraulic plumber he says he has had 4 or [...] has been working with the [place] diabetes skin care instructor. He has been using a [employer] rebecca meter for the past 6 weeks, [...] metatarsal fracture 2. Diabetes mellitus (SNOMED CT 38172829) 3. Hyperlipidemia (SNOMED CT 90121078) 4. Depressive Disorder NOS * 5. Tobacco user (SNOMED CT 433152688) 6. Personal History of Alcoholism 7. Other Iatrogenic Hypotension 8. Hyperuricemia 9. Osteopenia 10. History of amputation of lesser toe 11. Diabetic neuropathy 12. Exposure to potentially hazardous substance ([facility] [id number]) - Entered through [employer] Allergies: VANCOMYCIN (Apr 27, [...] Edema ()None ()1+ ()2+ ()3+ ()4+ Pulses ()ELEVATOR INSTALLER ()1+ ()2+ ()3+ ()4+ Gait: Walks with [...] 1. Diabetic foot wound. Managed by outside hydraulic plumber. It had closed up after 1.5 years, however shortly after that it reopened, and he is again working with podiatry for wound management he is also working with [employer] in [place] for custom diabetic shoes. 2. Diabetes, suboptimal control. Recently has a Ellie CGM, has moved his glargine insulin to the morning. He is tolerating his current dose of semaglutide, and if anything has actually gained a little bit of weight. He denies having GI side effects, and is interested in increasing to 2 mg/week. Will continue to follow-up with diabetes skin care instructor. 3. Fatigue. He thinks this is mostly [...] were also reviewed/updated for accuracy. Allergies/ADR from [facility] may not display in CPRS. Use JLV MRT5 - Allergies/ADRs FACILITY ALLERGY/ADR -------- No Remote Allergy/ADR Data available for this patient [place] [facility] VANCOMYCIN Active and Recently Outpatient Medications [...] WITH A Expr:08-28-24 SCREW-ON LID CONTACT GARBAGE CAROLINE FOR PROPER DISPOSAL 7) SEMAGLUTIDE 1MG/0.75ML INJ [...] 60 days Sig: INJECT 24 Refills: 0 Last:08-15-24 UNITS UNDER THE SKIN EVERY EVENING FOR [...] MD Physician Signed: 05/18/2024 13:47 CHARLEE FISH [facility]
--- OUTSIDE RECORDS SUMMARY | 2024-07-15 09:28 | XMS_ITS | Encounter Summary ---
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 Address [address] [place] [address] Care Team Providers Care Transcript Evaluator Name Role Phone CHARLEE FISH Primary Care [...] MEDIC ARE SUPPL EMENT Jul 31, 2018 [id number] RENKANE LUGO ALEX [place] MEDIC ARE SUPPL EMENT Jul 31, 2018 [id number] [phone] RENBRITTNEY,JU ALEX PATIENT [place] [facility] (WNR) MEDICARE ADVANTAGE [facility] (WNR) Jul 31, 2017 [id number] [phone] RENAUX,JU ALEX PATIENT [place] MEDIC ARE SUPPL EMENT Jul 31, 2018 [id number] RENAUX,JU ALEX [place] MEDIC ARE SUPPL EMENT Jul 31, 2018 [id number] [phone] RENAUX,JU ALEX PATIENT MEDICARE (WNR) MEDICARE (M) PART B May 31, 2011 PART B [id number] KANE MANTILLA PATIENT MEDICARE (WNR) MEDICARE (M) PART A May 31, 2011 PART A [id number] [phone] KANE MANTILLA PATIENT Selected Encounter This section includes the information on record at [place] for the Encounter. Date/Time Encounter Type Encounter Description Reason Provider Source Apr 26, 2024 01:30 PM MTMS BY PHARM ERICK 15 MIN TELEPHONE PRIMARY CARE ICD-10-CM E11.42 Type 2 diabetes mellitus with diabetic polyneuropathy KARI BRITO [facility] Encounter Template Text not used by [place] Assessments - Encounter Diagnoses This section includes [...] care activities for the patient from all [place] treatmentfacilities. This section includes future appointments and future orders which are active, pending or scheduled. Future Appointments This section includes appointments that were scheduled to occur 6 months from the date of the Encounter, up to a maximum of 20 appointments. The data comes from all [place] treatment facilities. Appointment Date/Time Appointment Type Appointme nt Facility Name May 17, 2024 02:00 PM AMBULATORY - NONE [facility] May 17, 2024 02:45 PM AMBULATORY - MEDICINE [facility] Jun 11, 2024 11:30 AM AMBULATORY - NONE [facility] Jul 09, 2024 11:30 AM AMBULATORY - NONE [facility] Aug 14, 2024 11:30 AM AMBULATORY - NONE [facility] Lab Results: +/- 30 days of the encounter This section includes the Chemistry and Hematology Lab Results on record with [place] for the patient. Radiology Reports and Pathology Reports are provided separately, in subsequent sections. Lab Results This section contains the Chemistry/Hematology Results that were resulted 30 days before or 30 daysafter the date of the Encounter. Date/Time Source Result Type Result - Unit Interpretation Reference Range Comment May 17, 2024 01:55 PM [facility] HEMOGLOBIN A1C [...] AM Reporting Lab: [facility] [id number] Performing Lab: [facility] [id number] HEMOGLOBIN A1C 8.4 H 4.0-6.0 May 17, 2024 01:55 PM [facility] BASIC METABOLIC PANEL+MG Specimen Type: PLASMA No comment entered. Ordering Provider: SOSA FISH Report Released Date/Time: Apr 16, 2024 11:04 AM Reporting Lab: [facility] [id number] Performing Lab: [facility] [id number] CREATININE 1.2 mg/dL 0.7-1.2 UREA NITROGEN 22 mg/dL 8-26 GLUCOSE 187 mg/dL H 70-100 SODIUM 138 mmol/L 136-145 POTASSIUM 4.5 mmol/L 3.5-5.1 CHLORIDE 102 mmol/L 98-107 CO2 25 mmol/L 22-29 CALCIUM 9.7 mg/dL 8.4-10.2 MAGNESIUM 1.7 mg/dL 1.6-2.6 ANION GAP 11 mmol/L 5-15 .CREAT EGFR(CKD-EPI ) 62 >60 May 17, 2024 01:55 PM [facility] CBC & DIFF Specimen Type: BLOOD Comment: Automated Differential Performed Ordering Provider: SOSA FISH Report Released Date/Time: Apr 16, 2024 11:04 AM Reporting Lab: [facility] [id number] Performing Lab: [facility] [address] WBC 8.8 4.0-11.0 RBC 4.74 4.60-6.20 HGB [...] and tobacco- related health factors from the [place] facility where the Encounter took place. Current Smoking Status This section includes the most current smoking, or tobacco-related health factor, from the [place] facility where the Encounter took place. Date/Time Current Smoking Status Comment Facil ity Aug 18, 2022 08:30 AM VA-TOBACCO FORMER USER [facility] Tobacco Use History This section includes a history of the smoking, or tobacco-related health factors, that were collected on or before the date of the Encounter. The data comes from the [place] facility where the Encounter took place. Date/Time [...] ALL of a patient's completed or amended [place] Advance and Rescinded Directives. The entries below indicate that a directive exists for the patient, but an actual copy is not included with this document. The data comes from all [place] facilities. Date Advance Directives Provider Source Jun 22, 2021 ADVANCE DIRECTIVE DISCUSSION ALLYSON GRAF [facility] Jun 22, 2021 ADVANCE DIRECTIVE ALLYSON GRAF [facility] Mar 09, 2007 ADVANCE DIRECTIVE SOLEDAD WOLFF [facility] Encounter Notes: All associated encounter notes This section contains the clinical notes associated to the Encounter. Date/Time Encounter Note(s) Provider Source Apr 26, 2024 01:53 PM PLASTIC CNC MACHINE OPERATOR NOTE: LOCAL TITLE: DIABETES PLASTIC CNC MACHINE OPERATOR NOTE STANDARD TITLE: PLASTIC CNC MACHINE OPERATOR NOTE DATE OF NOTE: APR 26, 2024@13:53 ENTRY DATE: APR 26, 2024@13:53:51 AUTHOR: KARI BRITO COSIGNER: URGENCY: STATUS: COMPLETED BACKGROUND: MIGUELINA MANTILLA is a 78 YO MALE contacted by [...] sandwich or grapes/cheese, beef stew Evening meal: manager loss prevention -- sandwich or fruit/cheese Snacks: snickers, Allie [...] to Ashley 3 plus sensors -Using an Tunezyhone 8 plus #Disease-Specific Med Rec: Completed today #Labs: up-to-date - Educated vet on indication/risks/benefits of new/changed medication. - Education provided on therapeutic nonpharmacologic management to achieve goals. - Vet advised of recent labs. - [place] verbalized understanding to all plans discussed today. Questions were answered to vet's satisfaction. Time spent: 20 minutes RTC: -06/11 pharmD phone prefers to avoid [facility]-only has a cellphone /toby/ KARI BRITO, PHARM D, BCPS Clinical Pharmacist Practitioner-[facility] Signed: 04/26/2024 14:18 KARI BRITO [facility]
--- OUTSIDE RECORDS SUMMARY | 2024-07-15 09:28 | XMS_ITS | Encounter Summary ---
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 Address [address] [place] [address] Care Team Providers Care Professor Of Exercise Science Name Role Phone CHARLEE FISH Primary [...] MEDIC ARE SUPPL EMENT Jul 31, 2018 [id number] RENAUX,JU ALEX PATIENT [place] SUPPLEMEN [place] MEDIC ARE SUPPL EMENT Jul 31, 2018 [id number] [phone] RENAUX,JU A[place] [facility] ([place]NR) MEDICARE ADVANTAGE [facility] (WNR) Jul 31, 2017 [id number] [phone] RENAUX,JU ALEX PATIENT [place] MEDIC[place] SUPPLEMEN [place]OT MEDIC ARE SUPPL EMENT Jul 31, 2018 [id number] RENAUX,JU ALEX PAT[place] SUPPLE[place] MEDIC ARE SUPPL EMENT Jul 31, 2018 [id number] [phone] RENAUX,JU ALEX PATIENT MEDICARE (WNR) MEDICARE (M) PART A May 31, 2011 PART A [id number] [phone] KANE PÉREZ PATIENT MEDICARE ([place]) MEDICARE (M) PART B May 31, 2011 PART B [id number] KANE PÉREZ PATIENT Selected Encounter This section includes the information on record at [place] for the Encounter. Date/Time Encounter Type Encounter Description Reason Pro vider Source Jul 01, 2024 01:20 PM Outpatient Encounter COMMUNITY CARE CONSULT IHE Encounter Template Text not used by [place] Plan of Treatment: Future Appointments (+ 6 months) and Future Tests (+/- 45 days) The Plan of Treatment section includes future care activities for the patient from all [place] [facility] This section includes future appointments and [...] 09, 2024 11:30 AM AMBULATORY - NONE [facility] Aug 14, 2024 11:30 AM AMBULATORY - NONE [facility] Social History: Smoking Status (Most [...] Date/Time Current Smoking Status Comment Diego peng May 17, 2024 02:45 PM [place]-TOBACCO FORMER USER [facility] Tobacco Use History This section includes a history of the smoking, or tobacco-related health factors, that were collected on or before the date of the Encounter. The data comes from the [place] facility where the Encounter took place. Date/Time Smoking Status/Tobacco Use Comment Darline soriano May 17, 2024 02:45 PM VA-TOBACCO QUIT 15 YRS OR MORE [facility] Aug 18, 2022 08:30 AM VA-TOBACCO FORMER USER [facility] Aug 18, 2022 08:30 AM VA-TOBACCO QUIT 15 YRS OR MORE [facility] May 03, 2021 08:00 AM VA-TOBACCO FORMER USER [facility] May 03, 2021 08:00 AM VA-TOBACCO QUIT 15 YRS OR MORE [facility] Apr 21, 2020 09:00 AM VA-TOBACCO FORMER USER [facility] Apr 21, 2020 09:00 AM [place]-TOBACCO QUIT [facility]RS [facility] [...] 22, 2021 ADVANCE DIRECTIVE ALLYSON GRAF [facility] Mar 09, 2007 ADVANCE DIRECTIVE SOLEDAD WOLFF [facility] Encounter Notes: All associated encounter notes This section contains the clinical notes associated to the Encounter. Date/Time Encounter Note(s) Provider Source Jul 02, 2024 02:50 PM ADDENDUM: LOCAL TITLE: Addendum STANDARD TITLE: ADDENDUM DATE OF NOTE: JUL 02, 2024@14:50:37 ENTRY DATE: JUL 02, 2024@14:50:38 AUTHOR: SOLEDAD HERRERA COSIGNER: URGENCY: STATUS: COMPLETED [place] called [facility] call line. [place] stated he spoke with [place] and they advised the [place] they Faxed the office notes at 8am this morning to the Fax number he was given. [place] would like to make sure we received the notes and forms needed and if an order will be entered soon. [place] also stated he would like to have a call back at: Alerting RN per social split. /toby/ SOLEDAD SHIN ADVANCED MSA Signed: 07/02/2024 14:52 Receipt Acknowledged By: 07/08/2024 08:33 /es/ DAY BENOIT RN Referral Bottoming Room Inspector 07/03/2024 11:08 /es/ DOROTHY YOO RN REGISTERED NURSE ====== --- Original Document --- 07/01/24 COMMUNITY CARE-CARE COORDINATION PLAN NOTE: [place] called back stating that [facility] no longer provides those services he needs. was informed by [facility] that he needs a 14 day Infusion therapy consult, and he would prefer to have this at his home or near him. Please review Infusion history and create a consult for this . /toby/ SOLEDAD BELL Signed: 07/01/2024 13:22 Receipt Acknowledged By: 07/01/2024 15:19 /toby/ Charlee Fish MD Physician 07/01/2024 16:09 /es/ DOROTHY YOO RN REGISTERED NURSE 07/01/2024 ADDENDUM STATUS: COMPLETED We do not have records from the [facility]. Please ask the to contac the clinic and ask them to fax records [place]. /toby/ Charlee Fish MD Physician Signed: 07/01/2024 15:20 Receipt Acknowledged By: 07/01/2024 16:08 /es/ DOROTHY YOO RN REGISTERED NURSE 07/01/2024 ADDENDUM STATUS: COMPLETED Spoke with patient and let him know his provider needs to see the records from the [facility]. Provided pt with fax number and he indicated he will have them fax the records to Dr. Fish. /toby/ DOROTHY YOO RN REGISTERED NURSE Signed: 07/01/2024 16:10 SOLEDAD HERRERA [facility] Jul 01, 2024 03:19 PM ADDENDUM: LOCAL TITLE: Addendum STANDARD TITLE: ADDENDUM DATE OF NOTE: JUL 01, 2024@15:19:45 ENTRY DATE: JUL 01, 2024@15:19:46 AUTHOR: CHARLEE FISH EXP COSIGNER: URGENCY: STATUS: COMPLETED We do not have records from the [facility]. Please ask the to contac the clinic and ask them to fax records [place]. /peyton Fish MD Physician Signed: 07/01/2024 15:20 Receipt Acknowledged By: 07/01/2024 16:08 /toby/ DOROTHY YOO RN REGISTERED NURSE ====== --- Original Document --- 07/01/24 COMMUNITY CARE-CARE COORDINATION PLAN NOTE: [place] called back stating that [facility] no longer provides those services he needs. was informed by [facility] that he needs a 14 day Infusion therapy consult, and he would prefer to have this at his home or near him. Please review Infusion history and create a consult for this . /peyton BELL Signed: 07/01/2024 13:22 Receipt Acknowledged By: 07/01/2024 15:19 /peyton Fish MD Physician * AWAITING SIGNATURE * DOROTHY YOO MELODY A [facility] Jul 01, 2024 01:20 PM NONVA NOTE: LOCAL TITLE: COMMUNITY CARE-CARE COORDINATION PLAN NOTE STANDARD TITLE: NONVA NOTE DATE OF NOTE: JUL 01, 2024@13:20 ENTRY DATE: JUL 01, 2024@13:20:07 AUTHOR: SOLEDAD WANG EXP COSIGNER: URGENCY: STATUS: COMPLETED COMMUNITY CARE-CARE COORDINATION PLAN NOTE Has ADDENDA [place] called back stating that [facility] no longer provides those services he needs. was informed by [facility] that he needs a 14 day [...] We do not have records from the [facility]. Please ask the to contac the clinic and ask them to fax records [place]. /toby/ Charlee Fish MD Physician Signed: 07/01/2024 15:20 Receipt Acknowledged By: 07/01/2024 16:08 /es/ DOROTHY YOO RN REGISTERED NURSE 07/01/2024 ADDENDUM STATUS: COMPLETED Spoke with patient and let him know his provider needs to see the records from the [facility]. Provided pt with fax number and he indicated he will have them fax the records to Dr. Fish. /toby/ DOROTHY YOO RN REGISTERED NURSE Signed: 07/01/2024 16:10 07/02/2024 ADDENDUM STATUS: COMPLETED [place] called [facility] care call line. [place] stated he spoke with [place] and they advised the they Faxed the office notes at 8am this morning to the Fax number he was given. would like to make sure we received the notes and forms needed and if an order will be entered soon. [place] also stated he would like to have a call back at: Alerting RN per social split. /toby/ SOLEDAD SORIANO MSA Signed: 07/02/2024 14:52 Receipt Acknowledged By: * AWAITING SIGNATURE * DAY BENOIT * AWAITING SIGNATURE * DOROTHY YOO AMY L [facility]
--- OUTSIDE RECORDS SUMMARY | 2024-07-15 09:28 | XMS_ITS | Encounter Summary ---
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 Address [address] [place] [address] Care Team Providers Care Automotive Product Engineer Name Role Phone CHARLEE FISH Primary [...] MEDIC ARE SUPPL EMENT Jul 31, 2018 [id number] RENKANE LUGO ALEX [place] MED[place] ARE SUPPL EMENT Jul 31, 2018 [id number] [phone] RENAUX,JU [place] [facility] (WNR) MEDICARE ADVANTAGE [facility] (WNR) Jul 31, 2017 [id number] [phone] RENAUX,JU ALEX PAT[place]PP[place] MEDIC ARE SUPPL EMENT Jul 31, 2018 [id number] RENAUX,JU A[place] MEDIC ARE SUPPL EMENT Jul 31, 2018 [id number] [phone] RENAUX,JU ALEX PATIENT MEDICARE (WNR) MEDICARE (M) PART A May 31, 2011 PART A [id number] [phone] KANE PÉREZ PATIENT MEDICARE ([place]) MEDICARE (M) PART B May 31, 2011 PART B [id number] [phone] KANE PÉREZ PATIENT Selected Encounter This section includes the information on record at [place] for the Encounter. Date/Time Encounter Type Encounter Description Reason Provider Source Jul 09, 2024 01:49 PM Outpatient Encounter TELEPHONE TRIAGE RYAN CÁRDENAS Encounter Template Text not used by [place] Plan of Treatment: Future Appointments (+ 6 months) and Future Tests (+/- 45 days) The Plan of Treatment section includes future care activities for the patient from all [place] [facility]. This section includes future appointments and future orders which are active, pending or scheduled. Future Appointments This section includes appointments that were scheduled to occur 6 months from the date of the Encounter, up to a maximum of 20 appointments. The data comes from all [place] treatment facilities. Appointment Date/Time Appointment Type Appointme nt Facility Name Aug 14, 2024 11:30 AM AMBULATORY - NONE [facility] Social History: Smoking Status (Most current) and Tobacco Use (All prior to encounter date) This section includes the most current, and the historical, smoking and tobacco- related health factors from the [place] facility where the Encounter took place. Current Smoking Status This section includes the most current smoking, or tobacco-related health factor, from the [place] facility where the Encounter took place. Date/Time Current Smoking Status Comment Facil ity May 17, 2024 02:45 PM VA-TOBACCO FORMER USER [facility] Tobacco Use History This section includes a history of the smoking, or tobacco-related health factors, that were collected on or before the date of the Encounter. The data comes from the [place] facility where the Encounter took place. Date/Time Smoking Status/Tobacco Use Comment F acility May 17, 2024 02:45 PM [place]-TOBACCO QUIT 15 YRS OR MORE [facility] Aug 18, 2022 08:30 AM VA-TOBACCO FORMER USER [facility] Aug 18, 2022 08:30 AM VA-TOBACCO QUIT 15 YRS OR MORE [facility] May 03, 2021 08:00 AM VA-TOBACCO FORMER USER [facility] May 03, 2021 08:00 AM [place]-TOBACCO QUIT 15 YRS OR MORE [facility] Apr 21, 2020 09:00 AM VA-TOBACCO FORMER USER [facility] Apr 21, 2020 09:00 AM VA-TOBACCO QUIT 15 YRS OR MORE [facility] Apr 03, 2018 03:16 PM FORMER TOBACCO USE >1Y <7Y [facility] Mar 09, 2007 10:41 AM CURRENT TOBACCO USER [facility] Advance Directives: All historical and current Section Date Range: From patient's date of to the date document was created. This section includes ALL of a patient's completed or amended [place] Advance and Rescinded Directives. The entries below indicate that a directive exists for the patient, but an actual copy is not included with this document. The data comes from all [place] facilities. Date Advance Directives Provider Source Jun 22, 2021 ADVANCE DIRECTIVE DISCUSSION ALLYSON GRAF [facility] Jun 22, 2021 ADVANCE DIRECTIVE ALLYSON GRAF [facility] Mar 09, 2007 ADVANCE DIRECTIVE SOLEDAD WOLFF [facility] Encounter Notes: All associated encounter notes This section contains the clinical notes associated to the Encounter. Date/Time Encounter Note(s) Provider Source Jul 11, 2024 09:42 AM ADDENDUM: LOCAL TITLE: Addendum STANDARD TITLE: ADDENDUM DATE OF NOTE: JUL 11, 2024@09:42:02 ENTRY DATE: JUL 11, 2024@09:42:03 AUTHOR: DOROTHY YOO EXP COSIGNER: URGENCY: STATUS: COMPLETED Spoke with Bette Blake APRN, from [facility] and she indicated pt has had his first two doses of IV rocephin and will be coming to [facility] for 10 days straight total for his [...] with wound care. Including Dr. Fish as ty /toby/ DOROTHY YOO, RN REGISTERED NURSE Signed: 07/11/2024 09:50 Receipt Acknowledged By: 07/14/2024 10:25 /toby/ Charlee Fish MD Physician ====== --- Original Document --- 07/09/24 CCC: CLINICAL TRIAGE: Patient Demographics Patient Name: MIGUELINA PÉREZ Patient Primary Address: [address] [place] [address] Patient Primary Phone: [phone] Patient : 1945 Patient Age: 79 Caller/Recipient Relation to Patient: Caregiver Caller Name: CHETAN Amos Emergency Contact: DOROTHY DUONG Nursing Plan and Disposition Other course(s) of action Generated msg to PACT/Provider Nurse Summary Nurse Summary: PATIENT CONCERN/DURATION/ONSET: Bette Blake APRN, from [facility], states that is currently being treated at [...] as prescription was written to being today. [place] is not present at this time. WHAT HAS PATIENT TRIED TO TREAT THE SYMPTOMS: N/A- receiving care at wound clinic; call not symptom based HISTORY/PREVIOUS TREATMENT: DM, foot pain, osteopenia, amputation of lesser toe WHAT IS PATIENT GOAL FOR THE CALL: referral or [facility] to administer mediations Was Virtual Care Visit considered (TELE or VVC)? N/A- needs in person evaluation AIR CREW MEMBER DISPOSITION: Message field reimbursement manager sent to PACT for follow up with assistance for orders. Verified best call back for PLATE MILL HAND. Bette agreeable to plan of care and denies other needs. TXCC not used as call is not symptom based. Best contact for Bette- [phone] option 3 This note was created by a [address] electronic gluing machine operator. Please do not alert this nurse by adding as a signer for future communications. Alerts are not monitored by this user, please reach out to [facility] Leadership instead if indicated. Clinical Contact Center Codes Clinic/Location: [address] PHONE CCC RN IMPORTANT: This note was created by [facility] Clinical Contact Center staff. Please do not alert the staff member by adding them as a signer for future communications. Alerts are not monitored by this user. /toby/ IRMA CÁRDENAS RN, [address] Signed: 07/09/2024 13:49 07/09/2024 ADDENDUM STATUS: [...] COMPLETED Spoke with Bette Blake APRN from [facility] and let her know this is not something we can accomodate through co-managed care as per provider. Bette said pt has private insurance through medicare. Talked with Bette about the co-managed care and cc referrals and provided Bette with the phone number to [facility]. /toby/ DOROTHY YOO RN REGISTERED NURSE Signed: 07/09/2024 15:38 DOROTHY YOO [facility] Jul 09, 2024 02:42 PM ADDENDUM: LOCAL TITLE: Addendum STANDARD TITLE: ADDENDUM DATE OF NOTE: JUL 09, 2024@14:42:06 ENTRY DATE: JUL 09, 2024@14:42:06 AUTHOR: CHARLEE FISH COSIGNER: URGENCY: STATUS: COMPLETED Please call the [...] Patient Name: MIGUELINA PÉREZ Patient Primary Address: [address] [place] [address] Patient Primary Phone: [phone] Patient : 1945 Patient Age: 79 Caller/Recipient Relation to Patient: Caregiver Caller Name: CHETAN Amos Emergency Contact: DOROTHY DUONG Nursing Plan and Disposition Other course(s) of action Generated msg to PACT/Provider Nurse Summary Nurse Summary: PATIENT CONCERN/DURATION/ONSET: Bette Blake APRN, from [facility], states that is currently being treated [...] or VVC)? N/A- needs in person evaluation AIR CREW MEMBER DISPOSITION: Message field reimbursement manager sent to PACT for follow up with assistance for orders. Verified best call back for APRN. Amos agreeable to plan of care and denies other needs. TXCC not used as call is not symptom based. Best contact for Bette- [phone] option 3 This note was created by a [address] electronic gluing machine operator. Please do not alert this nurse by adding as a signer for future communications. Alerts are not monitored by this user, please reach out to [facility] Leadership instead if indicated. Clinical Contact Center Codes Clinic/Location: [address] PHONE CCC RN IMPORTANT: This note was created by [facility] Clinical Contact Center staff. Please do not alert the staff member by adding them as a signer for future communications. Alerts are not monitored by this user. /toby/ IRMA CÁRDENAS RN, [address] Signed: 07/09/2024 13:49 CHARLEE FISH [facility] Jul 09, 2024 01:49 PM RN PROGRESS NOTE: LOCAL TITLE: CCC: CLINICAL TRIAGE STANDARD TITLE: RN PROGRESS NOTE DATE OF NOTE: JUL 09, 2024@13:49:33 ENTRY DATE: JUL 09, 2024@13:49:33 AUTHOR: IRMA CÁRDENAS I EXP COSIGNER: URGENCY: STATUS: COMPLETED CCC: CLINICAL TRIAGE Has ADDENDA Patient Demographics Patient Name: MIGUELINA PÉREZ Patient Primary Address: [address] [place] [address] Patient Primary Phone: [phone] Patient : 1945 Patient Age: 79 Caller/Recipient Relation to Patient: Caregiver Caller Name: CHETAN Amos Emergency Contact: DOROTHY DUONG Nursing Plan and Disposition Other course(s) of action Generated msg to PACT/Provider Nurse Summary Nurse Summary: PATIENT CONCERN/DURATION/ONSET: Bette Blake APRN, from [facility], states that is currently being treated at [...] as prescription was written to being today. [place] is not present at this time. WHAT HAS PATIENT TRIED TO TREAT THE SYMPTOMS: N/A- receiving care at wound clinic; call not symptom based HISTORY/PREVIOUS TREATMENT: DM, foot pain, osteopenia, amputation of lesser toe WHAT IS PATIENT GOAL FOR THE CALL: referral or [facility] to administer mediations Was Virtual Care Visit considered (TELE or VVC)? N/A- needs in person evaluation AIR CREW MEMBER DISPOSITION: Message field reimbursement manager sent to PACT for follow up with assistance for orders. Verified best call back for APRN. Amos agreeable to plan of care and denies other needs. TXCC not used as call is not symptom based. Best contact for Bette- [phone] option 3 This note was created by a [address] electronic gluing machine operator. Please do not alert this nurse by adding as a signer for future communications. Alerts are not monitored by this user, please reach out to [facility] Leadership instead if indicated. Clinical Contact Center Codes Clinic/Location: [address] PHONE CCC RN IMPORTANT: This note was created by [facility] Clinical Contact Center staff. Please do not alert the staff member by adding them as a signer for future communications. Alerts are not monitored by this user. /toby/ IRMA CÁRDENAS RN, [address] Signed: 07/09/2024 13:49 07/09/2024 ADDENDUM STATUS: [...] COMPLETED Spoke with Bette Blake APRN from [facility] and let her know this is not something we can accomodate through co-managed care as per provider. Bette said pt has private insurance through medicare. Talked with Bette about the co-managed care and cc referrals and provided Bette with the phone number to [facility]. /toby/ DOROTHY YOO RN REGISTERED NURSE Signed: 07/09/2024 15:38 07/11/2024 ADDENDUM STATUS: COMPLETED Spoke with Bette Blake APRN, from [facility] and she indicated pt has had his first two doses of IV rocephin and will be coming to [facility] for 10 days straight total for his [...] with wound care. Including Dr. Fish as ty /toby/ DOROTHY YOO RN REGISTERED NURSE Signed: 07/11/2024 09:50 Receipt Acknowledged By: * AWAITING SIGNATURE * CHARLEE FISH KATHLEEN I [facility]
--- OUTSIDE RECORDS SUMMARY | 2024-07-15 09:28 | XMS_ITS | Encounter Summary ---
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 Address [address] [place] [address] Care Team Providers Care Warehouse Shipping Associate Name Role Phone CHARLEE FISH Primary Care [...] MEDIC ARE SUPPL EMENT Jul 31, 2018 [id number] RENKANE LUGO A[place] MED[place] ARE SUPPL EMENT Jul 31, 2018 [id number] [phone] RENBRITTNEY,JU ALEX PAT[place] [facility] (WNR) MEDICARE ADVANTAGE [facility] (WNR) Jul 31, 2017 [id number] [phone] RENAUX,JU ALEX PATIENT [place] MED[place] SUPPLE[place] MEDIC ARE SUPPL EMENT Jul 31, 2018 [id number] RENAUX,JU ALEX PAT[place] SU[place] MEDIC ARE SUPPL EMENT Jul 31, 2018 [id number] [phone] RENAUX,JU ALEX PATIENT MEDICARE (WNR) MEDICARE (M) PART A May 31, 2011 PART A [id number] [phone] KANE MANTILLA PATIENT MEDICARE (WNR) MEDICARE (M) PART B May 31, 2011 PART B [id number] [phone] KANE MANTILLA PATIENT Selected Encounter This section includes the information on record at [place] for the Encounter. Date/Time Encounter Type Encounter Description Reason Provider Source Jun 11, 2024 11:30 AM MTMS BY PHARM ERICK 15 MIN TELEPHONE PRIMARY CARE ICD-10-CM E11.42 Type 2 diabetes mellitus with diabetic polyneuropathy KARI BRITO [facility] Encounter Template Text not used by [place] Assessments - Encounter Diagnoses This section includes the primary and secondary diagnoses documented for the Encounter. Date/Time Primary/Secondary Diagnosis Diagnosis Name Provider Source Jun 11, 2024 11:30 AM PRIMARY Type 2 diabetes mellitus with diabetic polyneuropathy KARI BRITO [facility] Plan of Treatment: Future Appointments (+ 6 months) and Future Tests (+/- 45 days) The Plan of Treatment section includes future care activities for the patient from all [place] treatmentfacilities. This section includes future appointments and future orders which are active, pending or scheduled. Future Appointments This section includes appointments that were scheduled to occur 6 months from the date of the Encounter, up to a maximum of 20 appointments. The data comes from all [place] treatment facilities. Appointment Date/Time Appointment Type Appointme nt Facility Name Jul 09, 2024 11:30 AM AMBULATORY - NONE [facility] Aug 14, 2024 11:30 AM AMBULATORY - NONE [facility] Lab Results: +/- 30 days of the encounter This section includes the Chemistry and Hematology Lab Results on record with [place] for the patient. Radiology Reports and Pathology Reports are provided separately, in subsequent sections. Lab Results This section contains the Chemistry/Hematology Results that were resulted 30 days before or 30 daysafter the date of the Encounter. Date/Time Source Result Type Result - Unit Interpretation Reference Range Comment May 17, 2024 01:55 PM [facility] HEMOGLOBIN A1C Specimen Type: BLOOD Comment: [...] Apr 16, 2024 11:04 AM Reporting Lab: [facility] [id number] Performing Lab: [facility] [id number] HEMOGLOBIN A1C 8.4 H 4.0-6.0 May 17, 2024 01:55 PM [facility] BASIC METABOLIC PANEL+MG Specimen Type: PLASMA No comment entered. Ordering Provider: SOSA IFSH Report Released Date/Time: Apr 16, 2024 11:04 AM Reporting Lab: [facility] [id number] Performing Lab: [facility] [id number] CREATININE 1.2 mg/dL 0.7-1.2 UREA NITROGEN 22 mg/dL 8-26 GLUCOSE 187 mg/dL H 70-100 SODIUM 138 mmol/L 136-145 POTASSIUM 4.5 mmol/L 3.5-5.1 CHLORIDE 102 mmol/L 98-107 CO2 25 mmol/L 22-29 CALCIUM 9.7 mg/dL 8.4-10.2 MAGNESIUM 1.7 mg/dL 1.6-2.6 ANION GAP 11 mmol/L 5-15 .CREAT EGFR(CKD-EPI ) 62 >60 May 17, 2024 01:55 PM [facility] CBC & DIFF Specimen Type: BLOOD Comment: Automated Differential Performed Ordering Provider: SOSA FISH Report Released Date/Time: Apr 16, 2024 11:04 AM Reporting Lab: [facility] [id number] Performing Lab: [facility] [id number] WBC 8.8 4.0-11.0 RBC 4.74 4.60-6.20 HGB [...] and tobacco- related health factors from the [place] facility where the Encounter took place. Current Smoking Status This section includes the most current smoking, or tobacco-related health factor, from the [place] facility where the Encounter took place. Date/Time Current Smoking Status Comment Facil ity May 17, 2024 02:45 PM VA-TOBACCO FORMER USER [facility] Tobacco Use History This section includes a history of the smoking, or tobacco-related health factors, that were collected on or before the date of the Encounter. The data comes from the [place] facility where the Encounter took place. Date/Time Smoking Status/Tobacco Use Comment F acility May 17, 2024 02:45 PM VA-TOBACCO QUIT 15 YRS OR MORE [facility] Aug 18, 2022 08:30 AM VA-TOBACCO FORMER USER [facility] Aug 18, 2022 08:30 AM VA-TOBACCO QUIT 15 YRS OR MORE [facility] May 03, 2021 08:00 AM VA-TOBACCO FORMER USER [facility] May 03, 2021 08:00 AM VA-TOBACCO QUIT 15 YRS OR MORE [facility] Apr 21, 2020 09:00 AM VA-TOBACCO FORMER USER [facility] Apr 21, 2020 09:00 AM VA-TOBACCO QUIT 15 YRS OR MORE [facility] Apr 03, 2018 03:16 PM FORMER TOBACCO USE >1Y <7Y [facility] Mar 09, 2007 10:41 AM CURRENT TOBACCO USER [facility] Advance Directives: All historical and current Section Date Range: From patient's date of to the date document was created. This section includes ALL of a patient's completed or amended [place] Advance and Rescinded Directives. The entries below indicate that a directive exists for the patient, but an actual copy is not included with this document. The data comes from all [place] facilities. Date Advance Directives Provider Source Jun 22, 2021 ADVANCE DIRECTIVE DISCUSSION ALLYSON GRAF [facility] Jun 22, 2021 ADVANCE DIRECTIVE ALLYSON GRAFTanya [facility] Mar 09, 2007 ADVANCE DIRECTIVE SOLEDAD WOLFF [facility] Encounter Notes: All associated encounter notes This section contains the clinical notes associated to the Encounter. Date/Time Encounter Note(s) Provider Source Jun 11, 2024 11:19 AM FUND DIRECTOR NOTE: LOCAL TITLE: DIABETES FUND DIRECTOR NOTE STANDARD TITLE: FUND DIRECTOR NOTE DATE OF NOTE: JUN 11, 2024@11:19 ENTRY DATE: JUN 11, 2024@11:20 AUTHOR: KARI BRITO COSIGNER: URGENCY: STATUS: COMPLETED BACKGROUND: MIGUELINA MANTILLA is a 79 YO MALE contacted by phone for medication management, mainly for DM. Active problems - Computerized Problem List is the source for the followin. Foot Pain - left 5th metatarsal fracture 2. Diabetes mellitus (SNOMED CT 33081493) 3. Hyperlipidemia (SNOMED CT 01676903) 4. Depressive Disorder NOS * 5. Tobacco user (SNOMED CT 084391661) 6. Personal History of Alcoholism 7. Other Iatrogenic Hypotension 8. Hyperuricemia 9. Osteopenia 10. History of amputation of lesser toe 11. Diabetic neuropathy 12. Exposure to potentially hazardous substance ([facility] [id number]) [facility] [...] sandwich or grapes/cheese, beef stew Evening meal: director of medical review -- sandwich or fruit/cheese Snacks: snickers, [place]ie [...] 14:50 240.8(109.23)[35*] 03/22/2023 14:13 221(100.24)[31*] 08/18/2022 08:26 Hibsyjaexyy13/23/2023 14:13 221(100.24)[31*] 08/18/2022 08:26 Unavailable 12/22/2021 13:51 [...] - Continue Ashley 3 CGM -Using an [employer] 8 plus -Provided the [employer] support number again today for any issues #Disease-Specific Med Rec: Completed today #Labs: up-to-date - Educated vet on indication/risks/benefits of new/changed medication. - Education provided on therapeutic nonpharmacologic management to achieve goals. - Vet advised of recent labs. - [place] verbalized understanding to all plans discussed today. Questions were answered to vet's satisfaction. Time spent: 20 minutes RTC: -07/09 pharmD phone prefers to avoid [facility]-only has a cellphone /toby/ KARI BRITO PHARM Twyla, BCPS Clinical Pharmacist Practitioner-[facility] Signed: 06/11/2024 11:58 KARI BRITO [facility]
--- OUTSIDE RECORDS SUMMARY | 2024-07-15 09:28 | XMS_ITS | Encounter Summary ---
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 Address [address] [place] [address] Care Team Providers Care Glass Etcher Name Role Phone CHARLEE FISH Primary Care [...] MEDIC ARE SUPPL EMENT Jul 31, 2018 [id number] RENKANE LUGO [place] MED[place] ARE SUPPL EMENT Jul 31, 2018 [id number] [phone] RENBRITTNEY,JU A[place] [facility] (WNR) MEDICARE ADVANTAGE [facility] (WNR) Jul 31, 2017 [id number] [phone] RENAUX,JU ALEX PATIENT [place] SUPP[place] MEDIC ARE SUPPL EMENT Jul 31, 2018 [id number] RENAUX,JU ALEX [place] MEDIC ARE SUPPL EMENT Jul 31, 2018 [id number] [phone] RENAUX,JU ALEX PATIENT MEDICARE (WNR) MEDICARE (M) PART A May 31, 2011 PART A [id number] [phone] KANE MANTILLA PATIENT MEDICARE (WNR) MEDICARE (M) PART B May 31, 2011 PART B [id number] [phone] KANE AMNTILLA PATIENT Selected Encounter This section includes the information on record at [place] for the Encounter. Date/Time Encounter Type Encounter Description Reason Provider Source Jul 09, 2024 11:30 AM MTMS BY PHARM ERICK 15 MIN TELEPHONE PRIMARY CARE ICD-10-CM E11.42 Type 2 diabetes mellitus with diabetic polyneuropathy KARI BRITO [facility] Encounter Template Text not used by [place] Assessments - Encounter Diagnoses This section includes the primary and secondary diagnoses documented for the Encounter. Date/Time Primary/Secondary Diagnosis Diagnosis Name Provider Source Jul 09, 2024 11:30 AM PRIMARY Type 2 diabetes mellitus with diabetic polyneuropathy KARI BRITO [facility] Plan of Treatment: Future Appointments (+ 6 months) and Future Tests (+/- 45 days) The Plan of Treatment section includes future care activities for the patient from all [place] treatmentfacilities. This section includes future appointments and future orders which are active, pending or scheduled. Future Appointments This section includes appointments that were scheduled to occur 6 months from the date of the Encounter, up to a maximum of 20 appointments. The data comes from all [place] treatment facilities. Appointment Date/Time Appointment Type Appointme nt Facility Name Aug 14, 2024 11:30 AM AMBULATORY - NONE [facility] Social History: Smoking Status (Most current) and Tobacco Use (All prior to encounter date) This section includes the most current, and the historical, smoking and tobacco- related health factors from the [place] facility where the Encounter took place. Current Smoking Status This section includes the most current smoking, or tobacco-related health factor, from the [place] facility where the Encounter took place. Date/Time Current Smoking Status Comment Diego ity May 17, 2024 02:45 PM VA-TOBACCO FORMER USER [facility] Tobacco Use History This section includes a history of the smoking, or tobacco-related health factors, that were collected on or before the date of the Encounter. The data comes from the [place] facility where the Encounter took place. Date/Time Smoking Status/Tobacco Use Comment F acility May 17, 2024 02:45 PM VA-TOBACCO QUIT 15 YRS OR MORE [facility] Aug 18, 2022 08:30 AM VA-TOBACCO FORMER USER [facility] Aug 18, 2022 08:30 AM VA-TOBACCO QUIT 15 YRS OR MORE [facility] May 03, 2021 08:00 AM VA-TOBACCO FORMER USER [facility] May 03, 2021 08:00 AM VA-TOBACCO QUIT 15 YRS OR MORE [facility] Apr 21, 2020 09:00 AM VA-TOBACCO FORMER USER [facility] Apr 21, 2020 09:00 AM VA-TOBACCO QUIT 15 YRS OR MORE [facility] Apr 03, 2018 03:16 PM FORMER TOBACCO USE >1Y <7Y [facility] Mar 09, 2007 10:41 AM CURRENT TOBACCO USER [facility] Advance Directives: All historical and current Section Date Range: From patient's date of to the date document was created. This section includes ALL of a patient's completed or amended [place] Advance and Rescinded Directives. The entries below indicate that a directive exists for the patient, but an actual copy is not included with this document. The data comes from all [facility]. Date Advance Directives Provider Source Jun 22, 2021 ADVANCE DIRECTIVE DISCUSSION ALLYSON GRAF [facility] Jun 22, 2021 ADVANCE DIRECTIVE ALLYSON GRAF [facility] Mar 09, 2007 ADVANCE DIRECTIVE SOLEDAD WOLFF [facility] Encounter Notes: All associated encounter notes This section contains the clinical notes associated to the Encounter. Date/Time Encounter Note(s) Provider Source Jul 09, 2024 11:29 AM CAR SHIFTER NOTE: LOCAL TITLE: DIABETES CAR SHIFTER NOTE STANDARD TITLE: CAR SHIFTER NOTE DATE OF NOTE: JUL 09, 2024@11:29 ENTRY DATE: JUL 09, 2024@11:29:30 AUTHOR: KARI BRITO EXP COSIGNER: URGENCY: STATUS: COMPLETED DIABETES CAR SHIFTER NOTE Has ADDENDA BACKGROUND: MIGUELINA MANTILLA is a 79 YO MALE contacted by phone for medication management, mainly for DM. Active problems - Computerized Problem List is the source for the followin. Foot Pain - left 5th metatarsal fracture 2. Diabetes mellitus (SNOMED CT 29324910) 3. Hyperlipidemia (SNOMED CT 65549326) 4. Depressive Disorder NOS * 5. Tobacco user (SNOMED CT 523173111) 6. Personal History of Alcoholism 7. Other Iatrogenic Hypotension 8. Hyperuricemia 9. Osteopenia 10. History of amputation of lesser toe 11. Diabetic neuropathy 12. Exposure to potentially hazardous substance ([facility] [id number]) [facility] CHANG Documentation Initiative SUBJECTIVE: In [...] open to getting this done at the [place] or at home. Is very anxious to get addressed MARIYA-I forward his concerns to the RN and his PCP for f/u today. Lifestyle: Tobacco: Denies EtOH: Denies Food and Drink: Breakfast: egg/stoner/1 piece of toast on occasion a bkfst roll or milk/cereal Lunch: varies--sometimes skips or a sandwich or grapes/cheese, beef stew Evening meal: insurance investigator -- sandwich or fruit/cheese Snacks: snickers, [place] kisses, ice cream, cookies on occasion. other [...] 14:50 240.8(109.23)[35*] 03/22/2023 14:13 221(100.24)[31*] 08/18/2022 08:26 Ltphzygzefy78/23/2023 14:13 221(100.24)[31*] 08/18/2022 08:26 Unavailable 12/22/2021 13:51 [...] - Continue Ashley 3 CGM -Using an [employer] 8 plus #Disease-Specific Med Rec: Completed today [...] a cellphone /toby/ KARI BRITO PHARM D, [facility] Clinical Pharmacist Practitioner-[facility] Signed: 07/09/2024 14:21 07/09/2024 ADDENDUM STATUS: UNSIGNED You may not VIEW this UNSIGNED Addendum. KARI BRITO [facility]
--- OUTSIDE RECORDS SUMMARY | 2024-07-15 09:28 | XMS_ITS | Encounter Summary ---
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 Address [address] [place] [address] Care Team Providers Care Garden Tractor Mechanic Name Role Phone CHARLEE FISH Primary Care [...] to Policy [place] MED[place] ARE SUPPL EMENT Jul 31, 2018 [id number] RENAUX,JU ALEX PATIENT [place] MED[place] ARE SUPPL EMENT Jul 31, 2018 [id number] [phone] RENAUX,JU A[place] PATIENT [place] [facility] (WNR) MEDICARE ADVANTAGE [facility] (WNR) Jul 31, 2017 [id number] [phone] RENAUX,JU ALEX PATIENT [place] MEDIC ARE SUPPL EMENT Jul 31, 2018 [id number] RENAUX,JU ALEX PATIENT [place] MEDIC ARE SUPPL EMENT Jul 31, 2018 [id number] [phone] RENAUX,JU ALEX PATIENT MEDICARE (WNR) MEDICARE ([place]) PART A May 31, 2011 PART A [id number] [phone] KANE PÉREZ PATIENT MEDICARE (WNR) MEDICARE (M) PART B May 31, 2011 PART B [id number] [phone] KANE PÉREZ PATIENT Selected Encounter This section includes the information on record at [place] for the Encounter. Date/Time Encounter Type Encounter Description Reason Pro vider Source Jul 01, 2024 12:11 PM Outpatient Encounter COMMUNITY CARE CONSULT [facility] Encounter Template Text not used by [place] Plan of Treatment: Future Appointments (+ 6 months) and Future Tests (+/- 45 days) The Plan of Treatment section includes future care activities for the patient [facility] [place] [facility] [place] This section includes future appointments and future [...] 09, 2024 11:30 AM AMBULATORY - NONE [facility] Aug 14, 2024 11:30 AM [facility]ORY - NONE [facility] [...] 17, 2024 02:45 PM VA-TOBACCO FORMER USER [facility] Tobacco Use History This section includes a history of the smoking, or tobacco-related health factors, that were collected on or before the date of the Encounter. The data comes from the [place] facility where the Encounter took place. Date/Time Smoking Status/Tobacco Use Comment Darline soriano May 17, 2024 02:45 PM VA-TOBACCO QUIT 15 YRS OR MORE [facility] Aug 18, 2022 08:30 AM VA-TOBACCO FORMER USER [facility] Aug 18, 2022 08:30 AM VA-TOBACCO QUIT 15 YRS OR MORE [facility] May 03, 2021 08:00 AM VA-TOBACCO FORMER USER [facility] May 03, 2021 08:00 AM VA-TOBACCO QUIT 15 YRS OR MORE [facility] Apr 21, 2020 09:00 AM VA-TOBACCO FORMER USER [facility] Apr 21, 2020 09:00 AM [place] QU[place] 15 YRS OR MORE [facility] [...] this document. The data comes from all [place] facilities. Date Advance Directives Provider Source Jun 22, 2021 ADVANCE DIRECTIVE DISCUSSION ALLYSON GRAF [facility] Jun 22, 2021 ADVANCE DIRECTIVE ALLYSON GRAF [facility] Mar 09, 2007 ADVANCE DIRECTIVE SOLEDAD WOLFF [facility] Encounter Notes: All associated encounter notes This section contains the clinical notes associated to the Encounter. Date/Time Encounter Note(s) Provider Source Jul 01, 2024 12:11 PM NONVA NOTE: LOCAL TITLE: COMMUNITY CARE-CARE COORDINATION PLAN NOTE STANDARD TITLE: NONVA NOTE DATE OF NOTE: JUL 01, 2024@12:11 ENTRY DATE: JUL 01, 2024@12:11:39 AUTHOR: SOLEDAD WANG EXP COSIGNER: URGENCY: STATUS: COMPLETED [place] called the call line requesting services for home health infusion therapy. He wants to use: [address] [address] I informed to request that the vendor send in a RFAS form to our identifying services needed. /toby/ SOLEDAD BELL Signed: 07/01/2024 12:13 SOLEDAD WANG [facility]
--- OUTSIDE RECORDS SUMMARY | 2024-07-15 09:29 | XMS_ITS | Encounter Summary ---
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 Address [address] [place] [address] Care Team Providers Care Material Attendant Name Role Phone CHARLEE FISH Primary Care [...] MEDIC ARE SUPPL EMENT Jul 31, 2018 [id number] RENAUX,JU ALEX PATIENT [place] MED[place] SUPP[place] MEDIC ARE SUPPL EMENT Jul 31, 2018 [id number] [phone] RENAUX,JU A[place] [facility] (WNR) MEDICARE ADVANTAGE [facility] (WNR) Jul 31, 2017 [id number] [phone] RENAUX,JU ALXE PATIENT [place] MEDICARE SUPPLEMEN [place]OT MEDIC ARE SUPPL EMENT Jul 31, 2018 [id number] RENAUX,JU ALEX PAT[place] MED[place] MEDIC ARE SUPPL EMENT Jul 31, 2018 [id number] [phone] RENAUX,JU ALEX PATIENT MEDICARE (WNR) MEDICARE ([place]) PART B May 31, 2011 PART B [id number] [phone] KANE MANTILLA PATIENT MEDICARE ([place]) MEDICARE (M) PART A May 31, 2011 PART A [id number] [phone] KANE MANTILLA PATIENT Selected Encounter This section includes the information on record at [place] for the Encounter. Date/Time Encounter Type Encounter Description Reason Provider Source Jul 10, 2024 01:40 PM Outpatient Encounter PRIMARY CARE/MEDICINE QUIANA YOO Candy Encounter Template Text not used by [place] Plan of Treatment: Future Appointments (+ 6 months) and Future Tests (+/- 45 days) The Plan of Treatment section includes future care activities for the [facility] [place] [facility] This section includes future appointments [...] 14, 2024 11:30 AM AMBULATORY - NONE [facility] Social History: Smoking Status (Most current) [...] 17, 2024 02:45 PM VA-TOBACCO FORMER USER [facility] Tobacco Use History This section includes a history of the smoking, or tobacco-related health factors, that were collected on or before the date of the Encounter. The data comes from the [place] facility where the Encounter took place. Date/Time Smoking Status/Tobacco Use Comment F acility May 17, 2024 02:45 PM [place]-TOBACCO QUIT 15 YRS OR MORE [facility] Aug 18, 2022 08:30 AM VA-TOBACCO FORMER USER [facility] Aug 18, 2022 08:30 AM VA-TOBACCO QUIT 15 YRS OR MORE [facility] May 03, 2021 08:00 AM VA-TOBACCO FORMER USER [facility] May 03, 2021 08:00 AM VA-TOBACCO QUIT 15 YRS OR MORE [facility] Apr 21, 2020 09:00 AM VA-TOBACCO FORMER USER [facility] Apr 21, 2020 09:00 AM [place]-TOBACCO QUIT 15 YRS OR MORE [facility] Apr 03, 2018 03:16 PM FORMER TOBACCO USE >1Y <7Y [facility] Mar 09, 2007 10:41 AM CURRENT TOBACCO USER [facility] Advance Directives: All historical and current Section Date Range: From patient's date of to the date document was created. This section includes ALL of a patient's completed or amended [place] Advance and Rescinded Directives. The entries below indicate that a directive exists for the patient, but an actual copy is not included with this document. The data comes from all [place] facilities. Date Advance Directives Provider Source Jun 22, 2021 ADVANCE DIRECTIVE DISCUSSION ALLYSON GRAF [facility] Jun 22, 2021 ADVANCE DIRECTIVE ALLYSON GRAF [facility] Mar 09, 2007 ADVANCE DIRECTIVE SOHEILA WOLFF [facility] Encounter Notes: All associated encounter notes This section contains the clinical notes associated to the Encounter. Date/Time Encounter Note(s) Provider Source Jul 10, 2024 01:40 PM PRIMARY CARE [employer] MESSAGING: LOCAL TITLE: PRIMARY CARE SECURE MESSAGING STANDARD TITLE: PRIMARY CARE SECURE MESSAGING DATE OF NOTE: JUL 10, 2024@13:40 ENTRY DATE: JUL 10, 2024@12:40:30 AUTHOR: QUIANA YOO COSIGNER: URGENCY: STATUS: COMPLETED ------Original Message --- Sent: 07/04/2024 02:36 PM ET From: MIGUELINA MANTILLA To: [facility] Primary CareMaria Del Carmen M. ([place]) Subject: Medication:Medication Renewal Quiana: This is the process as I understand it. (1) [facility] faxed the requested medical information to the attention of Dr. Fish [phone]. It was faxed twice, once in the morning and once in the afternoon. (2) Soheila () explained that once the information was approved by Dr. Fish it would be sent to Soheila at [facility]. (3) Once Soheila receives the information, she would then upload it on the system once the approval was received and a automotive service professional would then contact me and make arrangements for the infusion therapy. (4) [facility] has stressed the urgency of [...] --- Sent: 07/09/2024 10:47 PM ET From: CHARLEE FISH To: MIGUELINA MANTILLA Subject: Medication:Medication Renewal [...] It appears that you are seeing the network programmer on your own, not through care in the community, is that correct. Typically, antibiotics are not managed through co-managed care, but I'm not sure of the procedure for the intramuscular therapy. Charlee Fish MD Staff Physician, Internal Medicine [facility] ------Original Message --- Sent: 07/10/2024 01:39 PM ET From: QUIANA YOO To: MIGUELINA MANTILLA Subject: Medication:Medication Renewal Juan Santos, I am forwarding your note to Dr. Fish for review. Thanks Yudi Navarro RN /toby/ QUIANA J WOOD, RN REGISTERED NURSE Signed: 07/10/2024 12:40 Receipt Acknowledged By: 07/14/2024 10:25 /es/ Charlee Fish MD Physician QUIANA YOO [facility]
--- OUTSIDE RECORDS SUMMARY | 2024-07-15 09:29 | XMS_ITS | Encounter Summary ---
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 Address [address] [place] [address] Care Team Providers Care Dice Table Operator Name Role Phone CHARLEE FISH Primary [...] MEDIC ARE SUPPL EMENT Jul 31, 2018 [id number] RENAUX,JU A[place] PATIENT [place] MEDIC ARE SUPPL EMENT Jul 31, 2018 [id number] [phone] RENAUX,JU [place] [facility] (WNR) MEDICARE ADVANTAGE [facility] (WNR) Jul 31, 2017 [id number] [phone] RENAUX,JU ALEX PATIENT [place] MED[place] SUPP[place] MEDIC ARE SUPPL EMENT Jul 31, 2018 [id number] RENAUX,JU A[place] MEDIC ARE SUPPL EMENT Jul 31, 2018 [id number] [phone] RENAUX,JU ALXE PATIENT MEDICARE ([place]) MEDICARE ([place]) PART A May 31, 2011 PART A [id number] [phone] KANE MANTILLA PATIENT MEDICARE ([place]) MEDICARE ([place]) PART B May 31, 2011 PART B [id number] [phone] KANE MANTILLA PATIENT Selected Encounter This section includes the information on record at [place] for the Encounter. Date/Time Encounter Type Encounter Description Reason Provider Source Jul 10, 2024 02:59 PM Outpatient Encounter PRIMARY CARE/MEDICINE DOROTHY YOO Candy Encounter Template Text not used by [place] Plan of Treatment: Future Appointments (+ 6 months) and Future Tests (+/- 45 days) The Plan of Treatment section includes future care activities for the patient [facility] [place] [facility]. This section includes future appointments and [...] 14, 2024 11:30 AM AMBULATORY - NONE [facility] Social [...] 17, 2024 02:45 PM VA-TOBACCO FORMER USER [facility] Tobacco Use History This section includes a history of the smoking, or tobacco-related health factors, that were collected on or before the date of the Encounter. The data comes from the [place] facility where the Encounter took place. Date/Time Smoking Status/Tobacco Use Comment F acility May 17, 2024 02:45 PM [place]TO[place] QU[place] 15 YRS OR MORE [facility] Aug 18, 2022 08:30 AM VA-TOBACCO FORMER USER [facility] Aug 18, 2022 08:30 AM VA-TOBACCO QUIT 15 YRS OR MORE [facility] May 03, 2021 08:00 AM VA-TOBACCO FORMER USER [facility] May 03, 2021 08:00 AM VA-TOBACCO QUIT 15 YRS OR MORE [facility] Apr 21, 2020 09:00 AM VA-TOBACCO FORMER USER [facility] Apr 21, 2020 09:00 AM [place]-TO[place] QU[place] 15 YRS OR MORE [facility] [...] Jul 10, 2024 02:59 PM PRIMARY CARE [employer] E MESSAGING: LOCAL TITLE: PRIMARY CARE SECURE MESSAGING STANDARD TITLE: PRIMARY CARE SECURE MESSAGING DATE OF NOTE: JUL 10, 2024@14:59 ENTRY DATE: JUL 10, 2024@13:59:40 AUTHOR: DOROTHY YOO COSIGNER: URGENCY: STATUS: COMPLETED ------Original Message --- Sent: 07/08/2024 12:45 PM ET From: MIGUELINA MANTILLA To: [facility] Primary CareMaria Del [facility]. [facility] Subject: General:Infusion Therapy Arnaldo Araya, Re: Infusion Therapy I also have sent a similar message to Dr. Fish regarding infusion therapy. Because I am susceptible to infections and have had sepsis twice before plus considering the possible loss of a foot if the heel bone becomes infected, I would like to consider an alternative solution. [facility] is stressing that this is an urgent matter and that I need to begin treatment right away. My understanding is that a 14-day IV infusion is what has been prescribed. Is it possible that Dr. Fish can approve this treatment to be done at the [facility]? Thank you for your help Dorothy, --Miguelina Mantilla /toby/ DOROTHY YOO RN REGISTERED NURSE Signed: 07/10/2024 13:59 DOROTHY YOO [facility]
[2024-07-15 13:02] VITALS: BP 128/72; PULSE 102; RESP 16; TEMP 36.3; O2SAT 95
[2024-07-15] MEDS: cefTRIAXone 2 GM in 0.9 % SODIUM CHLORIDE Mini-bag 100 ML IVPB (13:13)
--- OUTSIDE RECORDS SUMMARY | 2024-07-16 07:09 | XMS_ITS | Encounter Summary ---
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 Organization [facility] [place] Address [address] [place] [address] Care Team Providers Care Information Systems Audit Manager Name Role Phone CHARLEE FISH Primary [...] MEDIC ARE SUPPL EMENT Jul 31, 2018 [id number] RENBRITTNEY,KANE ALEX PATIENT [place] MEDIC ARE SUPPL EMENT Jul 31, 2018 [id number] [phone] RENAUX,JU ALEX PATIENT [place] [facility] ([place]) MEDICARE ADVANTAGE [facility] (WNR) Jul 31, 2017 [id number] [phone] RENAUX,JU ALEX PAT[place] SUPP[place] MEDIC ARE SUPPL EMENT Jul 31, 2018 [id number] [phone] RENAUX,JU A[place] MEDIC ARE SUPPL EMENT Jul 31, 2018 [id number] RENAUX,JU ALEX PATIENT MEDICARE ([place]NR) MEDICARE ([place]) PART A May 31, 2011 PART A [id number] [phone] KANE PÉREZ PATIENT MEDICARE ([place]NR) MEDICARE ([place]) PART B May 31, 2011 PART B [id number] [phone] KANE PÉREZ PATIENT Selected Encounter This section includes the information on record at [place] for the Encounter. Date/Time Encounter Type Encounter Description Reason Provider Source Jan 18, 2024 04:00 PM MTMS BY CELESTE PEARL 15 MIN TELEPHONE PRIMARY CARE ICD-10-CM E11.42 Type 2 diabetes mellitus with diabetic polyneuropathy KARI BRITO [facility] Encounter Template Text not used by [place] [...] activities for the patient from all [place] treatmentfacilities. This section includes future appointments and [...] 04:00 PM AMBULATORY - NONE [place] [facility] [facility] Apr 09, 2024 09:00 AM AMBULATORY - NONE [place] [facility] Apr 12, 2024 11:30 AM AMBULATORY - NONE [place] [facility] Apr 17, 2024 01:30 PM AMBULATORY - NONE [place] [facility] Apr 26, 2024 01:30 PM AMBULATORY - NONE [place] [facility] May 17, 2024 02:00 PM AMBULATORY - NONE [place] [facility] May 17, 2024 02:45 PM AMBULATORY - [place]ICINE [place] [facility] Jun 11, 2024 11:30 AM AMBULATORY - NONE [place] [facility] Jul 09, 2024 11:30 AM AMBULATORY - NONE [place] [facility] Social History: Smoking Status [...] the Encounter. The data comes from the [facility] where the Encounter took place. Date/Time [...] 22, 2021 ADVANCE DIRECTIVE ALLYSON GRAF [facility] Mar 09, 2007 ADVANCE DIRECTIVE [...] sandwich or grapes/cheese, beef stew Evening meal: mangle roller -- sandwich or fruit/cheese Snacks: snickers, Allie [...] times--including some post-prandials - Will pursue a [employer] 3 CGM -He has an iphone 8 [...] PACT Clinic Signed: 01/18/2024 16:[address] [facility]
--- OUTSIDE RECORDS SUMMARY | 2024-07-16 07:09 | XMS_ITS | Continuity of Care Document ---
Author Name [facility] Organization [facility] Care Team Providers Care Workforce Staffing Advisor Name Role Phone [facility] Unavailable Unavailable Problems Combined list of problems from Department of Defense and Veterans Affairs facilities. It does not include entries that were removed or entered in error. Problem Status Onset Date Problem Type Date of Resolution Comments Source Exposure to potentially hazardous substance ([facility] [id number]) Active 10/05/19 24 Condition Oct 05, 2023 Entered By: VIJI VIVAS Comment: [facility] CH[facility] Documentation Initiative [facility] Depressive Disorder NOS * (ICD-9-CM 311./300.4) Active Condition [facility] Diabetes mellitus (SNOMED CT 17358909) Active Condition [facility] Diabetic neuropathy Active Condition [facility] Foot Pain (ICD-9-CM 719.47) Active Condition Aug 26 10 Entered By: MALINA WORLEY Comment: left 5th metatarsal fracture [facility] History of amputation of lesser toe Active Condition [facility] Hyperlipidemia (SNOMED CT 62978244) Active Condition [facility] Hyperuricemia Active Condition [facility] Osteopenia Active Condition [facility] Other Iatrogenic Hypotension Active Condition [facility]) Personal History of Alcoholism (ICD-9-CM V11.3) Active Condition [facility] Tobacco user (SNOMED CT 252885392) Active Condition [facility] Diagnosis: ICD-10-CM E11.42 Type 2 diabetes mellitus with diabetic polyneuropathy Active Diagnosis [facility] Diagnosis: ICD-10-CM E11.621 Type 2 diabetes mellitus with foot ulcer Active Diagnosis [facility] Medications Combined [...] BY MOUTH TWICE A DAY ORAL ACTIVE FISH, CHARLEE Robinson 2022 [facility] ASPIRIN 81MG TAB,EC TAKE ONE TABLET BY MOUTH EVERY DAY ORAL ACTIVE JEFF CHOUDHARY ER A 2006 [facility] ATORVASTATI N CA 40MG TAB TAKE ONE TABLET BY MOUTH EVERY DAY FOR CHOLESTE ROL ORAL ACTIVE 04/18/2025 [id number] 4 NAIDL,TOD D 2023 90 [facility] ATORVASTATI N [place] 40MG TAB TAKE ONE TABLET BY MOUTH EVERY DAY FOR CHOLESTE ROL ORAL DISCONT INUED 04/11/2024 [id number] FISH, CHARLEE Robinson 2022 90 [facility] CHOLECALCIF QUINTIN TAB TAKE 5000 UNITS BY MOUTH EVERY DAY ORAL ACTIVE FISH CHARLEE Robinson 2022 [facility] COENZYME Q10 CAP/TAB TAKE 1 CAPSULE BY MOUTH EVERY DAY ORAL ACTIVE FISH, CHARLEE Robinson 2022 [facility] CYANOCOBALA MIN 1000MCG TAB TAKE ONE TABLET BY MOUTH EVERY DAY ORAL ACTIVE NAIDL,TOD D 2021 [facility] DICLOFENAC NA 1% GEL,TOP APPLY 4 GRAMS TOPICALL Y FOUR TIMES A DAY NEEDED FOR JOINT PAIN TOPICA L HOLD 05/18/2025 [id number] FISH, CHARLEE Robinson 2023 100 [facility] FINASTERIDE 5MG TAB TAKE ONE TABLET BY MOUTH EVERY DAY FOR PROSTATE ORAL ACTIVE 04/18/2025 [id number] FISH, CHARLEE A 2023 90 [facility] FINASTERIDE 5MG TAB TAKE ONE TABLET BY MOUTH EVERY DAY FOR PROSTATE ORAL DISCONT INUED 04/11/2024 [id number] FISH, CHARLEE A 2022 90 [facility] FISH OIL 1000MG (500MG DHA/EPA) CAP,ORAL TAKE 1 CAPSULE BY MOUTH TWICE A DAY ORAL ACTIVE JEFF CHOUDHARY ER A 2006 [facility] INSULIN,GLA RGINE-YFGN 100UNIT/ML INJ PEN,3ML INJECT 24 UNITS UNDER THE SKIN EVERY MORNING FOR DIABETES SUBCUT ANEOUS SUSPEND ED 04/27/2025 [id number] NAIDL,TOD D 2023 5 [facility] INSULIN,GLA RGINE-YFGN 100UNIT/ML INJ PEN,3ML INJECT 24 UNITS UNDER THE SKIN EVERY EVENING FOR DIABETES SUBCUT ANEOUS DISCONT INUED (EDIT) 04/17/2025 [id number] 4 NAIDL,TOD D 2023 5 [facility] INSULIN,GLA RGINE-YFGN 100UNIT/ML INJ PEN,3ML INJECT 24 UNITS UNDER THE SKIN EVERY EVENING FOR DIABETES SUBCUT ANEOUS DISCONT INUED 08/29/2024 [id number] NAIDL,TOD D 2023 5 [facility] INSULIN,GLA RGINE-YFGN 100UNIT/ML INJ PEN,3ML INJECT 22 UNITS UNDER THE SKIN AT BEDTIME FOR DIABETES SUBCUT ANEOUS DISCONT INUED (EDIT) 01/07/2024 [id number] NAIDL,TOD D 2022 5 [facility] MAGNESIUM OXIDE 400MG TAB TAKE ONE TABLET BY MOUTH EVERY DAY ORAL ACTIVE CHARLEE FISH A 2022 [facility] METFORMIN HCL 1000MG TAB TAKE ONE TABLET BY MOUTH TWICE A DAY FOR DIABETES ORAL ACTIVE 06/26/2025 [id number] 4 CHARLEE FISH A 2023 180 [facility] METFORMIN HCL 1000MG TAB TAKE ONE TABLET BY MOUTH TWICE A DAY FOR DIABETES ORAL DISCONT INUED 07/16/2024 [id number] 4 NAIDL,TOD D 2023 180 [facility] METFORMIN HCL 1000MG TAB TAKE ONE TABLET BY MOUTH TWICE A DAY FOR DIABETES ORAL DISCONT INUED 04/11/2024 [id number] CHARLEE FISH A 2022 180 [facility] OMEPRAZOLE 20MG CAP,EC TAKE ONE CAPSULE BY MOUTH EVERY DAY ON AN EMPTY STOMACH, AT LEAST 30 MINUTES PRIOR TO A MEAL FOR GERD ORAL ACTIVE 05/18/2025 [id number] 4 ABE CHARLEE A 2023 90 [facility] OMEPRAZOLE 20MG CAP,EC TAKE ONE CAPSULE BY MOUTH EVERY DAY ON AN EMPTY STOMACH, AT LEAST 30 MINUTES PRIOR TO A MEAL FOR GERD ORAL DISCONT INUED 03/22/2024 [id number] CHARLEE FISH 2022 90 [facility] SEMAGLUTIDE 1MG/0.75ML INJ,SOLN,PE N,3ML INJECT 1MG UNDER THE SKIN EVERY WEEK FOR DIABETES SUBCUT ANEOUS DISCONT INUED 11/07/2024 [id number] 4 NAIDL,TOD D 2023 1 [facility] SEMAGLUTIDE 1MG/0.75ML INJ,SOLN,PE N,3ML INJECT 1MG UNDER THE SKIN EVERY WEEK FOR DIABETES SUBCUT ANEOUS DISCONT INUED 11/08/2023 [id number] NAIDL,TOD D 2022 1 [facility] SEMAGLUTIDE 2MG/0.75ML INJ,SOLN,PE N,3ML INJECT 2MG UNDER THE SKIN ONCE WEEKLY FOR DIABETES SUBCUT ANEOUS ACTIVE 05/18/2025 [id number] CHARLEE FISH 2023 1 [facility] TAMSULOSIN HCL 0.4MG CAP TAKE ONE CAPSULE BY MOUTH EVERY EVENING ORAL ACTIVE 04/18/2025 [id number] 4 CHARLEE FISH 2023 30 [facility] TAMSULOSIN HCL 0.4MG CAP TAKE ONE CAPSULE BY MOUTH EVERY EVENING ORAL DISCONT INUED 04/13/2024 [id number] CHARLEE FISH 2022 30 [facility] TAMSULOSIN HCL 0.4MG CAP TAKE ONE CAPSULE BY MOUTH EVERY EVENING ORAL DISCONT INUED 04/11/2024 [id number] 3 CHARLEE FISH 2022 90 [facility] TURMERIC CAP/TAB TAKE 500 MG BY MOUTH TWICE A DAY ORAL ACTIVE MATTY POWERS P 2018 [facility] Allergies, Adverse Reactions, Alerts Combined list [...] Site Reaction Lot Number CVX Code Drug Kick Press Setter Status Comments Source COVID-19 ([employer]), MRNA, LNP-S, PF, JOSE-SUCROSE, 30 MCG/0.3 ML (AGES 12+ YEARS) 1 2023 TREVON GRIJALVA LEFT DELTO ID [id number] complet ed [facility] INFLUENZA, HIGH-DOSE, TRIVALENT, PF 2023 OLIVIA GRIJALVAEEN LEFT DELTO ID [id number] A 135 complet ed [facility] ZOSTER RECOMBINANT 2 2019 187 complet ed [facility] INFLUENZA, INJECTABLE, QUADRIVALENT, PRESERVATIVE FREE 2019 150 complet ed [facility] ZOSTER RECOMBINANT 1 2019 187 complet ed [facility] INFLUENZA, HIGH-DOSE, QUADRIVALENT 2019 197 complet ed [facility] INFLUENZA, SEASONAL, INJECTABLE, PRESERVATIVE FREE 2017 140 complet ed [facility] INFLUENZA, INJECTABLE, QUADRIVALENT, PRESERVATIVE FREE 2017 150 complet ed [facility] INFLUENZA, INJECTABLE, QUADRIVALENT, PRESERVATIVE FREE 2015 150 complet ed [facility] TDAP 2015 115 complet ed [place] [facility] PNEUMOCOCCAL CONJUGATE PCV 13 2015 133 complet ed [facility] TD (ADULT), 5 LF TETANUS TOXOID, PRESERVATIVE FREE, ADSORBED 2015 113 complet ed [facility] INFLUENZA, INJECTABLE, QUADRIVALENT, PRESERVATIVE FREE 2013 150 complet ed [facility] PNEUMOCOCCAL POLYSACCHARID E PPV23 2010 33 complet [facility] INFLUENZA, UNSPECIFIED FORMULATION 2006 88 complet [facility] PNEUMOCOCCAL, UNSPECIFIED FORMULATION 2006 109 complet [facility] TD(ADULT) UNSPECIFIED FORMULATION 2006 NONE 139 complet [facility] TETANUS TOXOID, UNSPECIFIED FORMULATION 2006 NONE 112 complet [facility] Results Combined list of recent chemistry, hematology [...] Apr 16, 2024 11:04 AM Reporting Lab: [facility] [address] Performing Lab: [facility] [address] [facility] BASIC METABOLIC PANEL+MG UREA NITROGEN [MASS/VOLUM E] IN SERUM OR PLASMA 22 mg/dL 8 - 26 05/17 Specimen Type: PLASMA No comment entered. Ordering Provider: ME LEEROY FISH Report Released Date/Time: Apr 16, 2024 11:04 AM Reporting Lab: [facility] [address] Performing Lab: [facility] [address] [place] [employer] [facility] BASIC METABOLIC PANEL+MG GLUCOSE [MASS/VOLUM E] IN SERUM OR PLASMA 187 mg/dL 70 - 100 05/17 H Specimen Type: PLASMA No comment entered. Ordering Provider: ME LEEROY FISH Report Released Date/Time: Apr 16, 2024 11:04 AM Reporting Lab: [facility] [address] Performing Lab: [facility] [address] [facility] BASIC METABOLIC PANEL+MG SODIUM [MOLES/VOLU ME] IN SERUM OR PLASMA 138 mmol/L 136 - 145 05/17 Specimen Type: PLASMA No comment entered. Ordering Provider: FISH,ME LODY A Report Released Date/Time: Apr 16, 2024 11:04 AM Reporting Lab: [facility] [address] Performing Lab: [facility] [address] [place] [employer] [facility] BASIC METABOLIC PANEL+MG POTASSIUM [MOLES/VOLU ME] IN SERUM OR PLASMA 4.5 mmol/L 3.5 - 5.1 05/17 Specimen Type: PLASMA No comment entered. Ordering Provider: ME LEEROY FISH Report Released Date/Time: Apr 16, 2024 11:04 AM Reporting Lab: [facility] [address] Performing Lab: [facility] [address] [place] [employer] [facility] BASIC METABOLIC PANEL+MG CHLORIDE [MOLES/VOLU ME] IN SERUM OR PLASMA 102 mmol/L 98 - 107 05/17 Specimen Type: PLASMA No comment entered. Ordering Provider: ME LEEROY FISH Report Released Date/Time: Apr 16, 2024 11:04 AM Reporting Lab: [facility] [address] Performing Lab: [facility] [address] [place] [employer] [facility] BASIC METABOLIC PANEL+MG CARBON DIOXIDE, TOTAL [MOLES/VOLU ME] IN SERUM OR PLASMA 25 mmol/L 22 - 29 05/17 Specimen Type: PLASMA No comment entered. Ordering Provider: ME LEEROY FISH Report Released Date/Time: Apr 16, 2024 11:04 AM Reporting Lab: [facility] [address] Performing Lab: [facility] [address] [place] [employer] [facility] BASIC METABOLIC PANEL+MG CALCIUM [MASS/VOLUM E] IN SERUM OR PLASMA 9.7 mg/dL 8.4 - 10.2 05/17 Specimen Type: PLASMA No comment entered. Ordering Provider: ME LEEROY FISH Report Released Date/Time: Apr 16, 2024 11:04 AM Reporting Lab: [facility] [address] Performing Lab: [facility] [address] [place] [employer] [facility] BASIC METABOLIC PANEL+MG MAGNESIUM [MASS/VOLUM E] IN SERUM OR PLASMA 1.7 mg/dL 1.6 - 2.6 05/17 Specimen Type: PLASMA No comment entered. Ordering Provider: ME LEEROY FISH Report Released Date/Time: Apr 16, 2024 11:04 AM Reporting Lab: [facility] [address] Performing Lab: [facility] [address] [place] [employer] [facility] BASIC METABOLIC PANEL+MG ANION GAP IN SERUM OR PLASMA 11 mmol/L 5 - 15 05/17 Specimen Type: PLASMA No comment entered. Ordering Provider: ME LEEROY FISH Report Released Date/Time: Apr 16, 2024 11:04 AM Reporting Lab: [facility] [address] Performing Lab: [facility] [address] [place] [employer] [facility] BASIC METABOLIC PANEL+MG GLOMERULAR FILTRATION RATE/1.73 SQ M.PREDICTED [VOLUME RATE/AREA] IN SERUM, PLASMA OR BLOOD BY CREATININE- BASED FORMULA (CKD-EPI 2020) 62 60 05/17 Specimen Type: PLASMA No comment entered. Ordering Provider: ME LEEROY FISH Report Released Date/Time: Apr 16, 2024 11:04 AM Reporting Lab: [facility] [address] Performing Lab: [facility] [address] [place] [employer] [facility] CBC & DIFF LEUKOCYTES [#/VOLUME] IN BLOOD BY AUTOMATED COUNT 8.8 4.0 - 11.0 05/17 Specimen Type: BLOOD Comment: Automated Differentia l Performed Ordering Provider: ME LEEROY FISH Report Released Date/Time: Apr 16, 2024 11:04 AM Reporting Lab: [facility] [address] Performing Lab: [facility] [address] [place] [employer] [facility] CBC & DIFF ERYTHROCYTE S [#/VOLUME] IN BLOOD BY AUTOMATED COUNT 4.74 4.60 - 6.20 05/17 Specimen Type: BLOOD Comment: Automated Differentia l Performed Ordering Provider: ME LEEROY FISH Report Released Date/Time: Apr 16, 2024 11:04 AM Reporting Lab: [facility] [address] Performing Lab: [facility] [address] [place] [employer] [facility] CBC & DIFF HEMOGLOBIN [MASS/VOLUM E] IN BLOOD 13.1 g/dL 13.5 - 17.9 05/17 L Specimen Type: BLOOD Comment: Automated Differentia l Performed Ordering Provider: ME LEEROY FISH Report Released Date/Time: Apr 16, 2024 11:04 AM Reporting Lab: [facility] [address] Performing Lab: [facility] [address] [place] [employer] [facility] CBC & DIFF HEMATOCRIT [VOLUME FRACTION] OF BLOOD BY AUTOMATED COUNT 40.7 41.0 - 54.0 05/17 L Specimen Type: BLOOD Comment: Automated Differentia l Performed Ordering Provider: ME LEEROY FISH Report Released Date/Time: Apr 16, 2024 11:04 AM Reporting Lab: [facility] [address] Performing Lab: [facility] [address] [place] [employer] [facility] CBC & DIFF MCV [ENTITIC VOLUME] BY AUTOMATED COUNT 85.9 fL 80.0 - 100.0 05/17 Specimen Type: BLOOD Comment: Automated Differentia l Performed Ordering Provider: ME LEEROY FISH Report Released Date/Time: Apr 16, 2024 11:04 AM Reporting Lab: [facility] [address] Performing Lab: [facility] [address] [place] [employer] [facility] [facility] CBC & DIFF MCH [ENTITIC MASS] BY AUTOMATED COUNT 27.6 pg 27.0 - 33.0 05/17 Specimen Type: BLOOD Comment: Automated Differentia l Performed Ordering Provider: ME LEEROY FISH Report Released Date/Time: Apr 16, 2024 11:04 AM Reporting Lab: [facility] [address] Performing Lab: [facility] [address] [place] [employer] [facility] [facility] CBC & DIFF MCHC [MASS/VOLUM E] BY AUTOMATED COUNT 32.2 g/dL 32.0 - 37.5 05/17 Specimen Type: BLOOD Comment: Automated Differentia l Performed Ordering Provider: ME LEEROY FISH Report Released Date/Time: Apr 16, 2024 11:04 AM Reporting Lab: [facility] [address] Performing Lab: [facility] [address] [place] [employer] [facility] [facility] [facility] CBC & DIFF PLATELETS [#/VOLUME] IN BLOOD BY AUTOMATED COUNT 185 150 - 400 05/17 Specimen Type: BLOOD Comment: Automated Differentia l Performed Ordering Provider: ME LEEROY FISH Report Released Date/Time: Apr 16, 2024 11:04 AM Reporting Lab: [facility] [address] Performing Lab: [facility] [address] [place] [employer] [facility] CBC & DIFF PLATELET MEAN VOLUME [ENTITIC VOLUME] IN BLOOD BY AUTOMATED COUNT 9.6 fL 9.1 - 13.0 05/17 Specimen Type: BLOOD Comment: Automated Differentia l Performed Ordering Provider: ME LEEROY FISH Report Released Date/Time: Apr 16, 2024 11:04 AM Reporting Lab: [facility] [address] Performing Lab: [facility] [address] [place] [employer] [facility] [facility] CBC & DIFF NEUTROPHILS /100 LEUKOCYTES IN BLOOD BY MANUAL COUNT 68.6 40.0 - 80.0 05/17 Specimen Type: BLOOD Comment: Automated Differentia l Performed Ordering Provider: ME LEEROY FISH Report Released Date/Time: Apr 16, 2024 11:04 AM Reporting Lab: [facility] [address] Performing Lab: [facility] [address] [place] [employer] [facility] [facility] CBC & DIFF LYMPHOCYTES /100 LEUKOCYTES IN BLOOD BY MANUAL COUNT 21.8 15.0 - 45.0 05/17 Specimen Type: BLOOD Comment: Automated Differentia l Performed Ordering Provider: ME LEEROY [facility] Report Released Date/Time: Apr 16, 2024 11:04 AM Reporting Lab: [facility] [address] Performing Lab: [facility] [address] [place] [employer] [facility] [facility] CBC & DIFF MONOCYTES/1 00 LEUKOCYTES IN BLOOD BY AUTOMATED COUNT 5.9 2.0 - 12.0 05/17 Specimen Type: BLOOD Comment: Automated Differentia l Performed Ordering Provider: ME LEEROY FISH Report Released Date/Time: Apr 16, 2024 11:04 AM Reporting Lab: [facility] [address] Performing Lab: [facility] [address] [place] [employer] [facility] [facility] CBC & DIFF EOSINOPHILS /100 LEUKOCYTES IN BLOOD BY AUTOMATED COUNT 2.9 0.0 - 6.0 05/17 Specimen Type: BLOOD Comment: Automated Differentia l Performed Ordering Provider: ME LEEROY FISH Report Released Date/Time: Apr 16, 2024 11:04 AM Reporting Lab: [facility] [address] Performing Lab: [facility] [address] [place] [employer] [facility] [facility] [facility] CBC & DIFF BASOPHILS/1 00 LEUKOCYTES IN BLOOD BY MANUAL COUNT 0.5 0.0 - 2.0 05/17 Specimen Type: BLOOD Comment: Automated Differentia l Performed Ordering Provider: ME LEEROY FISH Report Released Date/Time: Apr 16, 2024 11:04 AM Reporting Lab: [facility] [address] Performing Lab: [facility] [address] [place] [employer] [facility] [facility] CBC & DIFF ERYTHROCYTE DISTRIBUTIO N WIDTH [RATIO] BY AUTOMATED COUNT 15.0 11.5 - 14.5 05/17 H Specimen Type: BLOOD Comment: Automated Differentia l Performed Ordering Provider: ME LEEROY FISH Report Released Date/Time: Apr 16, 2024 11:04 AM Reporting Lab: [facility] [address] Performing Lab: [facility] [address] [place] [employer] [facility] [facility] CBC & DIFF LYMPHOCYTES [#/VOLUME] IN BLOOD BY AUTOMATED COUNT 1.9 1.0 - 4.0 05/17 Specimen Type: BLOOD Comment: Automated Differentia l Performed Ordering Provider: ME LEEROY FISH Report Released Date/Time: Apr 16, 2024 11:04 AM Reporting Lab: [facility] [address] Performing Lab: [facility] [address] [place] [employer] [facility] [facility] CBC & DIFF MONOCYTES [#/VOLUME] IN BLOOD BY AUTOMATED COUNT 0.5 0.1 - 1.0 05/17 Specimen Type: BLOOD Comment: Automated Differentia l Performed Ordering Provider: ME LEEROY FISH Report Released Date/Time: Apr 16, 2024 11:04 AM Reporting Lab: [facility] [address] Performing Lab: [facility] [address] [place] [employer] [facility] CBC & DIFF NEUTROPHILS [#/VOLUME] IN BLOOD BY AUTOMATED COUNT 6.0 2.0 - 7.7 05/17 Specimen Type: BLOOD Comment: Automated Differentia l Performed Ordering Provider: ME LEEROY FISH Report Released Date/Time: Apr 16, 2024 11:04 AM Reporting Lab: [facility] [address] Performing Lab: [facility] [address] [place] [employer] [facility] CBC & DIFF EOSINOPHILS [#/VOLUME] IN BLOOD BY AUTOMATED COUNT 0.3 0.0 - 0.5 05/17 Specimen Type: BLOOD Comment: Automated Differentia l Performed Ordering Provider: ME LEEROY FISH Report Released Date/Time: Apr 16, 2024 11:04 AM Reporting Lab: [facility] [address] Performing Lab: [facility] [address] [place] [employer] CBC & DIFF BASOPHILS [#/VOLUME] IN BLOOD BY AUTOMATED COUNT 0.0 0.0 - 0.2 05/17 Specimen Type: BLOOD Comment: Automated Differentia l Performed Ordering Provider: ME LEEROY FISH Report Released Date/Time: Apr 16, 2024 11:04 AM Reporting Lab: [facility] [address] Performing Lab: [facility] [address] [place] [employer] [facility] CBC & DIFF IG(META,MYE LO,PRO) 0.3 05/17 Specimen Type: BLOOD Comment: Automated Differentia l Performed Ordering Provider: ME LEEROY FISH Report Released Date/Time: Apr 16, 2024 11:04 AM Reporting Lab: [facility] [address] Performing Lab: [facility] [address] [facility] CBC & DIFF IMMATURE GRANULOCYTE S [PRESENCE] IN BLOOD BY AUTOMATED COUNT 0.0 0.0 - 0.1 05/17 Specimen Type: BLOOD Comment: Automated Differentia l Performed Ordering Provider: ME LEEROY FISH Report Released Date/Time: Apr 16, 2024 11:04 AM Reporting Lab: [facility] [address] Performing Lab: [facility] [address] [facility] HEMOGLOBI N A1C HEMOGLOBIN A1C/HEMOGLO BIN.TOTAL IN [...] Apr 16, 2024 11:04 AM Reporting Lab: [facility] [address] Performing Lab: [facility] [address] [facility] BASIC METABOLIC PANEL+MG CREATININE [MASS/VOLUM E] IN SERUM OR PLASMA 1.2 mg/dL 0.7 - 1.2 03/22 Specimen Type: PLASMA No comment entered. Ordering Provider: ME LEEROY FISH Report Released Date/Time: Aug 21, 2022 03:48 PM Reporting Lab: [facility] [address] Performing Lab: [facility] [address] [facility] BASIC METABOLIC PANEL+MG UREA NITROGEN [MASS/VOLUM E] IN SERUM OR PLASMA 15 mg/dL 8 - 03/22 Specimen Type: PLASMA No comment entered. Ordering Provider: ME LEEROY FISH Report Released Date/Time: Aug 21, 2022 03:48 PM Reporting Lab: [facility] [address] Performing Lab: [facility] [address] [place] [employer] [facility] [facility] BASIC METABOLIC PANEL+MG GLUCOSE [MASS/VOLUM E] IN SERUM OR PLASMA 145 mg/dL 70 - 100 03/22 H Specimen Type: PLASMA No comment entered. Ordering Provider: ME LEEROY FISH Report Released Date/Time: Aug 21, 2022 03:48 PM Reporting Lab: [facility] [address] Performing Lab: [facility] [address] [place] [employer] [facility] BASIC METABOLIC PANEL+MG SODIUM [MOLES/VOLU ME] IN SERUM OR PLASMA 138 mmol/L 136 - 145 03/22 Specimen Type: PLASMA No comment entered. Ordering Provider: ME LEEROY FISH Report Released Date/Time: Aug 21, 2022 03:48 PM Reporting Lab: [facility] [address] Performing Lab: [facility] [address] [place] [employer] [facility] BASIC METABOLIC PANEL+MG POTASSIUM [MOLES/VOLU ME] IN SERUM OR PLASMA 4.5 mmol/L 3.5 - 5.1 03/22 Specimen Type: PLASMA No comment entered. Ordering Provider: ME LEEROY FISH Report Released Date/Time: Aug 21, 2022 03:48 PM Reporting Lab: [facility] [address] Performing Lab: [facility] [address] [place] [employer] [facility] BASIC METABOLIC PANEL+MG CHLORIDE [MOLES/VOLU ME] IN SERUM OR PLASMA 101 mmol/L 98 - 107 03/22 Specimen Type: PLASMA No comment entered. Ordering Provider: ME LEEROY FISH Report Released Date/Time: Aug 21, 2022 03:48 PM Reporting Lab: [facility] [address] Performing Lab: [facility] [address] [place] [employer] [facility] BASIC METABOLIC PANEL+MG CARBON DIOXIDE, TOTAL [MOLES/VOLU ME] IN SERUM OR PLASMA 27 mmol/L 22 - 29 03/22 Specimen Type: PLASMA No comment entered. Ordering Provider: ME LEEROY FISH Report Released Date/Time: Aug 21, 2022 03:48 PM Reporting Lab: [facility] [address] Performing Lab: [facility] [address] [place] [employer] [facility] [facility] BASIC METABOLIC PANEL+MG CALCIUM [MASS/VOLUM E] IN SERUM OR PLASMA 10.0 mg/dL 8.4 - 10.2 03/22 Specimen Type: PLASMA No comment entered. Ordering Provider: ME LEEROY FISH Report Released Date/Time: Aug 21, 2022 03:48 PM Reporting Lab: [facility] [address] Performing Lab: [facility] [address] [place] [employer] BASIC METABOLIC PANEL+MG MAGNESIUM [MASS/VOLUM E] IN SERUM OR PLASMA 1.9 mg/dL 1.6 - 2.6 03/22 Specimen Type: PLASMA No comment entered. Ordering Provider: ME LEEROY FISH Report Released Date/Time: Aug 21, 2022 03:48 PM Reporting Lab: [facility] [address] Performing Lab: [facility] [address] [employer] BASIC METABOLIC PANEL+MG ANION GAP IN SERUM OR PLASMA 10 mmol/L 5 - 15 03/22 Specimen Type: PLASMA No comment entered. Ordering Provider: ME LEEROY FISH Report Released Date/Time: Aug 21, 2022 03:48 PM Reporting Lab: [facility] [id number] Performing Lab: [facility] [address] [employer]IC MET[employer]OLIC PANEL+MG GLOMERULAR FILTRATION RATE/1.73 SQ M.PREDICTED [VOLUME RATE/AREA] IN SERUM, PLASMA OR BLOOD BY CREATININE- BASED FORMULA (CKD-EPI 2020) 63 60 03/22 Specimen Type: PLASMA No comment entered. Ordering Provider: ME LEEROY FISH Report Released Date/Time: Aug 21, 2022 03:48 PM Reporting Lab: [facility] [address] Performing Lab: [facility] [address] [place] [facility] HEMOGLOBI N A1C HEMOGLOBIN A1C/HEMOGLO BIN.TOTAL IN [...] Aug 21, 2022 03:48 PM Reporting Lab: [facility] [address] Performing Lab: [facility] [address] [place] [facility] BASIC METABOLIC PANEL+MG CREATININE [MASS/VOLUM E] IN SERUM OR PLASMA 0.9 mg/dL 0.7 - 1.2 08/18 Specimen Type: PLASMA No comment entered. Ordering Provider: ME LEEROY FISH Report Released Date/Time: December 22, 2021 03:46 PM Reporting Lab: [facility] [address] Performing Lab: [facility] [address] [place] [facility] BASIC METABOLIC PANEL+MG UREA NITROGEN [MASS/VOLUM E] IN SERUM OR PLASMA 12 mg/dL 8 - 08/18 Specimen Type: PLASMA No comment entered. Ordering Provider: ME LEEROY FISH Report Released Date/Time: December 22, 2021 03:46 PM Reporting Lab: [facility] [address] Performing Lab: [facility] [address] [place] [facility] BASIC METABOLIC PANEL+MG GLUCOSE [MASS/VOLUM E] IN SERUM OR PLASMA 184 mg/dL 70 - 100 08/18 H Specimen Type: PLASMA No comment entered. Ordering Provider: ME LEEROY FISH Report Released Date/Time: December 22, 2021 03:46 PM Reporting Lab: [facility] [address] Performing Lab: [facility] [address] [place] [facility] [facility] BASIC METABOLIC PANEL+MG SODIUM [MOLES/VOLU ME] IN SERUM OR PLASMA 137 mmol/L 136 - 145 08/18 Specimen Type: PLASMA No comment entered. Ordering Provider: ME LEEROY FISH Report Released Date/Time: December 22, 2021 03:46 PM Reporting Lab: [facility] [address] Performing Lab: [facility] [address] [place] [facility] [facility] BASIC METABOLIC PANEL+MG POTASSIUM [MOLES/VOLU ME] IN SERUM OR PLASMA 3.9 mmol/L 3.5 - 5.1 08/18 Specimen Type: PLASMA No comment entered. Ordering Provider: ME LEEROY FISH Report Released Date/Time: December 22, 2021 03:46 PM Reporting Lab: [facility] [address] Performing Lab: [facility] [address] [place] [facility] [facility] BASIC METABOLIC PANEL+MG CHLORIDE [MOLES/VOLU ME] IN SERUM OR PLASMA 102 mmol/L 98 - 107 08/18 Specimen Type: PLASMA No comment entered. Ordering Provider: ME LEEROY FISH Report Released Date/Time: December 22, 2021 03:46 PM Reporting Lab: [facility] [address] Performing Lab: [facility] [address] [place] [facility] [facility] BASIC METABOLIC PANEL+MG CARBON DIOXIDE, TOTAL [MOLES/VOLU ME] IN SERUM OR PLASMA 26 mmol/L 22 - 29 08/18 Specimen Type: PLASMA No comment entered. Ordering Provider: ME LEEROY FISH Report Released Date/Time: December 22, 2021 03:46 PM Reporting Lab: [facility] [address] Performing Lab: [facility] [address] [place] [employer] [facility] BASIC METABOLIC PANEL+MG CALCIUM [MASS/VOLUM E] IN SERUM OR PLASMA 9.4 mg/dL 8.4 - 10.2 08/18 Specimen Type: PLASMA No comment entered. Ordering Provider: ME LEEROY FISH Report Released Date/Time: December 22, 2021 03:46 PM Reporting Lab: [facility] [address] Performing Lab: [facility] [address] [place] [facility] [facility] BASIC METABOLIC PANEL+MG MAGNESIUM [MASS/VOLUM E] IN SERUM OR PLASMA 1.6 mg/dL 1.6 - 2.6 08/18 Specimen Type: PLASMA No comment entered. Ordering Provider: ME LEEROY FISH Report Released Date/Time: December 22, 2021 03:46 PM Reporting Lab: [facility] [address] Performing Lab: [facility] [address] [place] [employer] [facility] BASIC METABOLIC PANEL+MG ANION GAP IN SERUM OR PLASMA 9 mmol/L 5 - 15 08/18 Specimen Type: PLASMA No comment entered. Ordering Provider: ME LEEROY FISH Report Released Date/Time: December 22, 2021 03:46 PM Reporting Lab: [facility] [address] Performing Lab: [facility] [address] [place] [employer] [facility] BASIC METABOLIC PANEL+MG GLOMERULAR FILTRATION RATE/1.73 SQ M.PREDICTED [VOLUME RATE/AREA] IN SERUM, PLASMA OR BLOOD BY CREATININE- BASED FORMULA (CKD-EPI) 89 60 08/18 Specimen Type: PLASMA No comment entered. Ordering Provider: ME LEEROY FISH Report Released Date/Time: December 22, 2021 03:46 PM Reporting Lab: [facility] [address] Performing Lab: [facility] [address] [place] [employer] [facility] HEMOGLOBI N A1C HEMOGLOBIN A1C/HEMOGLO BIN.TOTAL IN [...] December 22, 2021 03:46 PM Reporting Lab: [facility] [address] Performing Lab: [facility] [address] [facility] Vital Signs Combined list of inpatient and outpatient Vital Signs from Department of [facility] and [facility], ranging from 12 months to all on record, depending upon the facility. Vital Sign Value Date Comments Source SYSTOLIC BLOOD PRESSURE 123 05/17/2024 14:50:52 [facility] DIASTOLIC BLOOD PRESSURE 79 05/17/2024 14:50:52 [facility] PULSE OXIMETRY 95 05/17/2024 14:50:52 [facility].8 05/17/2024 14:50:52 [facility] BMI 35kg/m2 05/17/2024 14:50:52 [facility] PAIN 0 05/17/2024 14:50:52 [facility] HEIGHT 70 05/17/2024 14:50:52 [facility] TEMPERATURE 97.8 05/17/2024 14:50:52 [facility] PULSE 113 05/17/2024 14:50:52 [facility] Encounters Combined list of: 1) 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 2) Encounters from the Department of [facility] facilities going back up to 280 months. Location Location Details Encounter Type Encounter Number Reason For Visit Attending Provider ADM Date DC Date Status Disposition Source [facility] Outpatient Encounter [id number] 03/10 [facility] HC PRO PHONE CALL 11-20 MIN [id number] Diagnos is: ICD-10- CM E11.42 Type 2 diabete s mellitu s with diabeti c polyneu ropathy
NAKARI DSOUZA 03/14 [facility] OFFICE O/P EST LOW 20-29 MIN [id number] Diagnos is: ICD-10- CM E11.621 Type 2 diabete s mellitu s with foot ulcer<b r/> Rhiannon FISH 03/22 [facility] HC PRO PHONE CALL 21-30 MIN [id number] Diagnos is: ICD-10- CM E11.42 Type 2 diabete s mellitu s with diabeti c polyneu ropathy
NAIDL,KARI 04/18 [place] [facility] [place] [facility] HC PRO PHONE CALL 21-30 MIN [id number] Diagnos is: ICD-10- CM E11.42 Type 2 diabete s mellitu s with diabeti c polyneu ropathy
NAIDL,KARI 07/11 [place] [facility] [place] [facility] MT[facility] PHARM ADDL 15 MIN [id number] Diagnos is: ICD-10- CM E11.42 Type 2 diabete s mellitu s with diabeti c polyneu ropathy
NAIDL,KARI 08/29 [place] [facility] [place] [facility] MTMS BY PHARM EST 15 MIN [id number] Diagnos is: ICD-10- CM E11.42 Type 2 diabete s mellitu s with diabeti c polyneu ropathy
AWKER,SOLEDAD L 10/10 [place] [facility] [place] [facility] Outpatient Encounter [id number] 10/16 [place] [facility] [place] [facility] MTMS BY PHARM EST 15 MIN [id number] Diagnos is: ICD-10- CM E11.621 Type 2 diabete s mellitu s with foot ulcer<b r/> NAIDL,KARI 11/06 [place] [facility] [place] [facility] MTMS BY PHARM ADDL 15 MIN [id number] Diagnos is: ICD-10- CM E11.42 Type 2 diabete s mellitu s with diabeti c polyneu ropathy
NAIDL,KARI 11/22 [place] [facility] [place] [facility] MTMS BY PHARM ADDL 15 MIN [id number] Diagnos is: ICD-10- CM E11.42 Type 2 diabete s mellitu s with diabeti c polyneu ropathy
NAIDL,KARI 01/17 [place] [facility] [place] [facility] Outpatient Encounter [id number] Diagnos is: ICD-10- CM E11.42 Type 2 diabete s mellitu s with diabeti c polyneu ropathy
DAWNA ,MILAGRO 01/18 [place] [facility] [place] [facility] QNHP OL DIG ASSMT&MGMT 5-10 [id number] Diagnos is: ICD-10- CM E11.42 Type 2 diabete s mellitu s with diabeti c polyneu ropathy
MOE CHOWDHURY 01/18 [place] [facility] [place] [facility] MTMS BY PHARM EST 15 MIN [id number] Diagnos is: ICD-10- CM E11.42 Type 2 diabete s mellitu s with diabeti c polyneu ropathy
NAIDJignesh,KARI 02/21 [place] [facility] [place] [facility] Outpatient Encounter [id number] RORY CAPPS 02/26 [place] [facility] [place] [facility] Outpatient Encounter [id number] 03/14 [place] [facility] [place] [facility] QNHP OL DIG ASSMT&MGMT 11-20 [id number] Diagnos is: ICD-10- CM E11.42 Type 2 diabete s mellitu s with diabeti c polyneu ropathy
NAIDL,KARI 03/27 [place] [facility] [place] [facility] Outpatient Encounter [id number] 04/16 [place] [facility] [place] [facility] MTMS BY PHARM EST 15 MIN [id number] Diagnos is: ICD-10- CM E11.42 Type 2 diabete s mellitu s with diabeti c polyneu ropathy
NAIDL,KARI 04/26 [place] [facility] [place] [facility] OFFICE O/P EST MOD 30 MIN [id number] Diagnos is: ICD-10- CM E11.42 Type 2 diabete s mellitu s with diabeti c polyneu ropathy
[facility]iannon FISH 05/17 [facility] [place] [facility] MTMS BY PHARM EST 15 MIN [id number] Diagnos is: ICD-10- CM E11.42 Type 2 diabete s mellitu s with diabeti c polyneu ropathy
NAIDL,KARI 06/11 [place] [facility] [place] [facility] Out[facility] Encounter [id number] 07/01 [place] [facility] [place] [facility] Out[facility] Encounter [id number] 07/01 [facility] [place] [facility] MTMS BY PHARM EST 15 MIN [id number] Diagnos is: ICD-10- CM E11.42 Type 2 diabete s mellitu s with diabeti c polyneu ropathy
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 Social History Type Response Date Comment [facility] Tobacco smoking status [facility]-TOBACCO FORMER USER 05/17/2024 [facility] History of tobacco use MA-TOBACCO QUIT 1 5 YRS OR MORE 05/17/2024 [facility] History of tobacco use MA-TOBACCO FORMER USER 08/18/2022 [facility] History of tobacco use MA-TOBACCO QUIT 1 5 YRS OR MORE 05/03/2021 [facility] History of tobacco use VA-TOBACCO FORMER USER 04/21/2020 [facility] History of tobacco use FORMER TOBACCO US E >1Y <7Y 04/03/2018 [facility] History of tobacco use CURRENT TOBACCO USER 03/09/2007 [facility] Plan of Care List of future care activities from [facility] facilities. Additional future care activities may be listed in the Assessment and Plan section. Date/Time Care Activity Care Activity Detail Facili ty 08/14/2024 AMBULATORY - NONE AMBULATORY - NONE [facility] Advance Directives List of completed, amended, or rescinded Advance Directives on record at [facility] facilities. An actual copy of the Directive is not included. Date Advance Directive Provider Source 06/22/2021 ADVANCE DIRECTIVE DISCUSSION ALLYSON GRAF [facility] 06/22/2021 ADVANCE DIRECTIVE ALLYSON GRAF [facility] 03/09/2007 [facility]
--- OUTSIDE RECORDS SUMMARY | 2024-07-16 07:10 | XMS_ITS | Encounter Summary ---
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 [place] [facility] [place] [facility] [place] Address [address] [place] [address] Care Team Providers Care Scrip Clerk Name Role Phone CHARLEE FISH Primary [...] MEDIC ARE SUPPL EMENT Jul 31, 2018 [id number] [phone] RENKANE LUGO ALEX PATIENT [place] MED[place]ARE SUPPLEMEN [place] MEDIC ARE SUPPL EMENT Jul 31, 2018 [id number] [phone] RENBRITTNEY,JU ALEX PATIENT [place] [facility] (WNR) MEDICARE ADVANTAGE [facility] (WNR) Jul 31, 2017 [id number] [phone] RENAUX,JU ALEX PATIENT [place] MEDIC[place] SUPPLEMEN [place] MEDIC ARE SUPPL EMENT Jul 31, 2018 [id number] [phone] RENAUX,JU ALEX PATIENT [place] SUPPLEMEN [place] MEDIC ARE SUPPL EMENT Jul 31, 2018 [id number] [phone] RENBRITTNEY,JU ALEX PATIENT MEDICARE (WNR) MEDICARE ([place]) PART B May 31, 2011 PART B [id number] [phone] KANE PÉREZ PATIENT MEDICARE (WNR) MEDICARE (M) PART A May 31, 2011 PART A [id number] [phone] KANE PÉREZ PATIENT Selected Encounter This section includes the information on record at [place] for the Encounter. Date/Time Encounter Type Encounter Description Reason Provider Source Jan 19, 2024 08:08 AM Outpatient Encounter ENDOCRINOLOGY ICD-10-CM E11.42 Type 2 diabetes mellitus with diabetic polyneuropathy Cynthia TONEY Candy Encounter Template Text not used by [place] Assessments - Encounter Diagnoses This section includes the primary and secondary diagnoses documented for the Encounter. Date/Time Primary/Secondary Diagnosis Diagnosis Name Provider Source Jan 19, 2024 08:11 AM PRIMARY Type 2 diabetes mellitus with diabetic polyneuropathy JESSICA LUGO [facility] Plan of Treatment: Future Appointments (+ 6 months) and Future Tests (+/- 45 days) The Plan of Treatment section includes future care activities for the patient from all [place] [facility]. This section includes future appointments and [...] 04:00 PM AMBULATORY - NONE [place] [facility] Apr 09, 2024 09:00 AM AMBULATORY - NONE [place] [facility] Apr 12, 2024 11:30 AM AMBULATORY - NONE [place] [facility] Apr 17, 2024 01:30 PM AMBULATORY - NONE [place] [facility] Apr 26, 2024 01:30 PM AMBUL[facility]ORY - NONE [place] [facility] May 17, 2024 02:00 PM AMBULATORY - NONE [place] [facility] May 17, 2024 02:45 PM AMBULATORY - MEDICINE [place] [facility] Jun 11, 2024 11:30 AM AMBULATORY - NONE [place] [facility] Jul 09, 2024 11:30 AM AMBUL[place]ORY - NONE [place] [facility] Social History: Smoking Status (Most current) [...] 18, 2022 08:30 AM VA-TOBACCO FORMER USER [facility] Tobacco Use History This section includes a history of the smoking, or tobacco-related health factors, that were collected on or before the date of the Encounter. The data comes from the [place] facility where the Encounter took place. Date/Time Smoking Status/Tobacco Use Comment F acility Aug 18, 2022 08:30 AM VA-TOBACCO QUIT 15 YRS OR MORE [facility] May 03, 2021 08:00 AM VA-TOBACCO FORMER USER [facility] May 03, 2021 08:00 AM VA-TOBACCO QUIT 15 YRS OR MORE [facility] Apr 21, 2020 09:00 AM VA-TOBACCO FORMER USER [facility] Apr 21, 2020 09:00 AM VA-TOBACCO QUIT 15 YRS OR MORE [facility] Apr 03, 2018 03:16 PM FORMER TOBACCO USE >1Y <7Y [facility] Mar 09, 2007 10:41 AM CURRENT TOBACCO USER [facility] Advance Directives: All historical [...] 22, 2021 ADVANCE DIRECTIVE DISCUSSION ALLYSON GRAF [facility] Jun 22, 2021 ADVANCE DIRECTIVE ALLYSON GRAF [facility] Mar 09, 2007 ADVANCE DIRECTIVE SOLEDAD WOLFF [...] and outside records if available. Treatment by [place] Endocrinology or plant technical specialist Diagnosis of Diabetes Mellitus (type I [...] personal CGM. /toby/ Jessica Lugo RN, [facility] Certified Diabetes Care & Furniture Rental Consultant Signed: 01/19/2024 08:11 JESSICA LUGO [facility]
--- OUTSIDE RECORDS SUMMARY | 2024-07-16 07:12 | XMS_ITS | Data Portability ---
Author Organization [place] [facility], [facility] Address [address] [place] [address] Care Team Providers Care General Warehouse Associate Name Role Phone POST, SUE Primary Care Provider [phone] Assessment Encounter Date Assessment Date Assessment LastModified [...] of Hospitaliza tion for UTI. 2022 023 [facility], [address], [address], [place], [address], 3 10:05:08 urinalysis, dipstick 2022 023 [facility], [address], [place], [address], 12:03:37 Referral None recorded. Procedures None recorded. Surgeries None recorded. Imaging None recorded. Medication Orders None recorded. Patient TargetsNo targets recorded. Patient Instructions Encounter Date Encounter Id Patient Instructions Last Modified By Organization Details Last Modified Time 09/23/2022 [id number] Patient to call clinic with questions or concerns. Advised patient to increase water intake and to keep 4 week appointment for next catheter change. [email or web address] Not available 09/23/2022 13:22:30 11/04/2022 [id number] Pt has F/U appt with Dr Barrientos in [place] on 11/11/2022 @ 3:10pm to [...] ate 3) Sensi tivit y Priscila sis Sherrill te 1 Sherrill te 2 Sherrill te 3 ----- ----- ----- ----- ----- [...] for provi brandon revie w. Not Available [facility] [address], [place], [address], 11/07/2022 10:05:08 11/05/19 23 11/04/2022 urina lysis , dipst ick Color-Status Straw Not Available [facility] [address], [place], [address], 11/04/2022 12:02:10 11/05/19 23 11/04/2022 urina lysis , dipst ick Clarity-Stat us Slight ly Cloudy Not Available [facility] [address], [place], [address], 11/04/2022 12:02:10 11/05/19 23 11/04/2022 urina lysis , dipst ick Glucose-Stat us 500 Not Available [facility] [address], [place], [address], 11/04/2022 12:02:10 11/05/19 23 11/04/2022 urina lysis , dipst ick Bilirubin-St atus Negati ve Not Available [facility] [address], [place], [address], 11/04/2022 12:02:10 11/05/19 23 11/04/2022 urina lysis , dipst ick Ketones-Stat us Negati ve Not Available [facility] [address], [place], [address], 11/04/2022 12:02:10 11/05/19 23 11/04/2022 urina lysis , dipst ick Sp Dallas-Stat us 1.015 Not Available [facility] [address], [place], [address], 11/04/2022 12:02:10 11/05/19 23 11/04/2022 urina lysis , dipst ick pH-Status 6.5 Not Available [facility] [address], [place], [address], 11/04/2022 12:02:10 11/05/19 23 11/04/2022 urina lysis , dipst ick Protein-Stat us 5.0 Not Available [facility] [address], [place], [address], 11/04/2022 12:02:10 11/05/19 23 11/04/2022 urina lysis , dipst ick Urobilinogen -Status 0.2 Not Available [facility] [address], [place], [address], 11/04/2022 12:02:10 11/05/19 23 11/04/2022 urina lysis , dipst ick Nitrates-Sta tus positi ve Not Available [facility] [address], [place], [address], 11/04/2022 12:02:10 11/05/19 23 11/04/2022 urina lysis , dipst ick Blood-Status Large Not Available [facility] [address], [place], [address], 11/04/2022 12:02:10 11/05/19 23 11/04/2022 urina lysis , dipst ick Leuko-Status Large Not Available [facility] [address], [place], [address], 11/04/2022 12:02:10 11/05/19 23 11/04/2022 urina lysis , dipst ick Specimen Type Cathet erized Not Available [facility] [address], [place], [address], 11/04/2022 12:02:10 11/05/19 23 11/04/2022 urina lysis , dipst ick Performed by LKchuckve n1 Not Available [facility] [address], [place], [address], 11/04/2022 12:02:10 Result Notes None recorded. Problems Name Problem SNOMED Code Status Onset Date Resolution Date Notes Provider Name and Address Organization Details Recorded Time [facility] 510499817 [facility] 13[facility] Problem Notes None recorded. Procedures Surgical History Date Name Laterality Status Provider Name and Address Organization Details Recorded Time 3 Fill and Pull/Voiding Trial/TOV completed Jenna Harris [facility] 12/09/2022 11:59:45 3 Urodynamic Studies completed Deyanira Woods [facility] 11/04/2022 12:19:38 3 Gordon Catheter Insertion completed Deyanira Woods [facility] 11/04/2022 12:21:21 3 Urethral Catheter Change completed Jenna Harris [facility] 10/21/2022 13:18:32 3 Urethral Catheter Change completed Nenita Flores [facility] 09/23/2022 13:21:12 3 Gordon Catheter Insertion completed Roula Beltran [facility] 08/03/2022 11:16:51 3 Fill and Pull/Voiding Trial/TOV completed Roula Beltran [facility] 08/03/2022 11:16:41 2 Cystoscopy- male completed Kristopher Barrientos MD, PHD [address] [place] [address],[address], [address], [facility] 06/30/2022 09:37:30 2 Urethral Catheter Change completed Carlos Mix [facility] 06/30/2022 09:49:15 2 Gordon Catheter Insertion completed Juanito Josue [facility] 06/16/2022 15:03:22 2 Fill and Pull/Voiding Trial/TOV completed Roula Tony PA-C [address] [place] [address],[address], [address], [facility] 06/16/2022 18:06:50 Cataract Surgery completed Juanito Josue [facility] 06/16/2022 12:30:25 Orthopedic Surgery completed Еленаarminda Josue [facility] 06/16/2022 [...] Updated DateTime 09/23/2022 180.34 cm Nenitaaranza Flores [facility] 09/23/2022 13:17:39 Date Recorded Body height Body mass index (BMI) Body weight Provider Name and Address Organization Details Last Updated DateTime 11/11/2022 180.34 cm 30 kg/m2 15428.36 g Amanda Molina [facility] 11/11/2022 16:25:51 Social History Question Answer Notes LastModified by Organizat ion Details LastModified Time Tobacco Smoking Status Former Smoker Juanito song [facility] 06/16/2022 12:29:38 What Is Your [...] Diagnosis/Indication Diagnosis SNOMED-CT Code Diagnosis ICD10 Code [id number] Roula Tony PA-C [facility] [address] [place] [address] 06/16/2022 11:30:09 06/20/2022 08:36:10 Retention of urine 251255071 R33.9 Benign pro static hyperplasia with outflow obstruction [id number] N40.1 [id number] Kristopher green MD, PHD [facility] [address] [place] [address] 06/30/2022 08:46:23 07/04/2022 11:29:58 Retention of urine 136207449 R33.9 Benign pro static hyperplasia with outflow obstruction 070497433 N40.1 [id number] Roula Ruby [facility] [address] [place] [address] 08/03/2022 10:27:16 08/05/2022 11:54:14 Retention of urine 848814810 R33.9 [id number] Nenitaaranza Flores [facility] [address] [place] [address] 09/23/2022 10:30:04 09/26/2022 14:37:37 [id number] Kristopher green MD, PHD [facility] [address] [place] [address] 11/04/2022 10:41:00 11/10/2022 13:37:32 Benign prostatic hyperplasia with outflow obstruction 452127878 N40.1 Retention of urine 01306 4002 R33.9 Microscopic hematuria 19 8716202 R31.29 [id number] Jenna Harris [facility] [address] [place] [address] 10/21/2022 11:27:55 10/24/2022 11:49:09 Retention of urine 303348603 R33.9 [id number] Kristopher green MD, PHD [facility] [address] [place] [address] 11/11/2022 16:25:28 11/17/2022 17:02:38 Retention of urine 668330144 R33.9 Benign pro static hyperplasia with outflow obstruction 959199648 N40.1 [id number] Jenna Harris [facility] [address] [place] [address] 12/09/2022 10:56:01 12/12/2022 15:10:14 Retention of urine 047185062 R33.9 Health Concerns Section Related Observation LastModified by Organization Detai ls LastModified Time None Recorded Concern Status LastModified by Organization Details LastModified Time None Recorded Advance Directives Directive None Recorded Payers Encounter Date Sequence Insurance Name Policy Number Policy Molina Covered Member ID Molina Member ID Guarantor Name 09/23/2022 1 [place] [employer] Tom B Renaux [id number] Tom B Renaux 09/23/2022 2 [place] [id number] Tom B Renaux [id number] Tom B Renaux 10/21/2022 1 [place] [employer] Tom B Renaux [id number] Tom B Renaux 10/21/2022 2 [place] [id number] Tom B Renaux [id number] Tom B Renaux 11/04/2022 1 [place] [employer] Tom B Renaux [id number] Tom B Renaux 11/04/2022 2 [place] [id number] Tom B Renaux [id number] Tom B Renaux 11/11/2022 1 [place] [employer] Tom B Renaux [id number] Tom B Renaux 11/11/2022 2 [place] [id number] Tom B Renaux [id number] Tom B Renaux 12/09/2022 1 [place] [facility] [employer] Tom B Renaux [id number] Tom B Renaux 12/09/2022 2 [place] [id number] Tom B Renaux [id number] Tom B Renaux Notes Date Note Type [...] weeks for next catheter change. Nenita song [place] - [facility] 09/23/2022 13:22:32 10/21/2022 text/html Pt here for cath eter change OLMAN Chapp[place] - [facility] 10/21/2022 13:21:54 11/11/2022 text/html 77M with urinary retention. Hospitalization at [facility] from 04/30-05/30 for MSSA bacteremia [...] their care. Kristopher Barrientos MD, PHD [address] [place] [address],[address], [place], [address], [facility] 11/11/2022 17:49:57 12/09/2022 text/html Pt of Dr PALMER, her e for TOV recommended at 11/11/22 visit Jenna song [facility] 12/09/2022 12:43:22
[2024-07-16 12:15] VITALS: BP 136/78; PULSE 98; RESP 16; TEMP 35.8; O2SAT 95
[2024-07-16] MEDS: cefTRIAXone 2 GM in 0.9 % SODIUM CHLORIDE Mini-bag 100 ML IVPB (12:23)
--- OUTSIDE RECORDS SUMMARY | 2024-07-17 07:10 | XMS_ITS | Continuity of Care Document ---
Author Name [facility] Organization [facility] Care Team Providers Care Director Of Ancillary Services Name Role Phone [facility] Unavailable Unavailable Problems Combined list of problems from Department of Defense and Veterans Affairs facilities. It does not include entries that were removed or entered in error. Problem Status Onset Date Problem Type Date of Resolution Comments Source Exposure to potentially hazardous substance ([facility] [id number]) Active 10/05/19 24 Condition Oct 05, 2023 Entered By: VIJI VIVAS Comment: [facility] CHANG Documentation Initiative [facility] Depressive Disorder NOS * (ICD-9-CM 311./300.4) Active Condition [facility] Diabetes mellitus (SNOMED CT 13234289) Active Condition [facility] Diabetic neuropathy Active Condition [facility] Foot Pain (ICD-9-CM 719.47) Active Condition Aug 26 10 Entered By: MALINA WORLEY Comment: left 5th metatarsal fracture [facility] History of amputation of lesser toe Active Condition [facility] Hyperlipidemia (SNOMED CT 23204132) Active Condition [facility] Hyperuricemia Active Condition [facility] Osteopenia Active Condition [facility] Other Iatrogenic Hypotension Active Condition [facility] Personal History of Alcoholism (ICD-9-CM V11.3) Active Condition [facility] Tobacco user (SNOMED CT 821182620) Active Condition [facility] Diagnosis: ICD-10-CM E11.42 Type 2 diabetes mellitus with diabetic polyneuropathy Active Diagnosis [facility] Diagnosis: ICD-10-CM E11.621 Type 2 diabetes mellitus with foot ulcer Active Diagnosis [facility] Medications Combined list of outpatient medications [...] DAY ORAL ACTIVE FISH, CHARLEE Robinson 2022 [facility] ASPIRIN 81MG TAB,EC TAKE ONE TABLET BY MOUTH EVERY DAY ORAL ACTIVE JEFF CHOUDHARY ER A 2006 [facility] ATORVASTATI N CA 40MG TAB TAKE ONE TABLET BY MOUTH EVERY DAY FOR CHOLESTE ROL ORAL ACTIVE 04/18/2025 [id number] NAIDL,TOD D 2023 90 [facility] ATORVASTATI N CA 40MG TAB TAKE ONE TABLET BY MOUTH EVERY DAY FOR CHOLESTE ROL ORAL DISCONT INUED 04/11/2024 [id number] FISH, CHARLEE Robinson 2022 90 [facility] CHOLECALCIF QUINTIN TAB TAKE 5000 UNITS BY MOUTH EVERY DAY ORAL ACTIVE FISH CHARLEE Robinson 2022 [facility] COENZYME Q10 CAP/TAB TAKE 1 CAPSULE BY MOUTH EVERY DAY ORAL ACTIVE FISH, CHARLEE Robinson 2022 [facility] CYANOCOBALA MIN 1000MCG TAB TAKE ONE TABLET BY MOUTH EVERY DAY ORAL ACTIVE NAIDL,TOD D 2021 [facility] DICLOFENAC NA 1% GEL,TOP APPLY 4 GRAMS TOPICALL Y FOUR TIMES A DAY NEEDED FOR JOINT PAIN TOPICA L HOLD 05/18/2025 [id number] FISH, CHARLEE Robinson 2023 100 [facility] FINASTERIDE 5MG TAB TAKE ONE TABLET BY MOUTH EVERY DAY FOR PROSTATE ORAL ACTIVE 04/18/2025 [id number] FISH, CHARLEE A 2023 90 [facility] FINASTERIDE 5MG TAB TAKE ONE TABLET BY MOUTH EVERY DAY FOR PROSTATE ORAL DISCONT INUED 04/11/2024 [id number] FISH, CHARLEE A 2022 90 [facility] FISH OIL 1000MG (500MG DHA/EPA) CAP,ORAL TAKE 1 CAPSULE BY MOUTH TWICE A DAY ORAL ACTIVE JEFF CHOUDHARY ER A 2006 [facility] INSULIN,GLA RGINE-YFGN 100UNIT/ML INJ PEN,3ML INJECT 24 UNITS UNDER THE SKIN EVERY MORNING FOR DIABETES SUBCUT ANEOUS SUSPEND ED 04/27/2025 [id number] NAIDL,TOD D 2023 5 [facility] INSULIN,GLA RGINE-YFGN 100UNIT/ML INJ PEN,3ML INJECT 24 UNITS UNDER THE SKIN EVERY EVENING FOR DIABETES SUBCUT ANEOUS DISCONT INUED (EDIT) 04/17/2025 [id number] 4 NAIDL,TOD D 2023 5 [facility] INSULIN,GLA RGINE-YFGN 100UNIT/ML INJ PEN,3ML INJECT 24 UNITS UNDER THE SKIN EVERY EVENING FOR DIABETES SUBCUT ANEOUS DISCONT INUED 08/29/2024 [id number] 4 NAIDL,TOD D 2023 5 [facility] INSULIN,GLA RGINE-YFGN 100UNIT/ML INJ PEN,3ML INJECT 22 UNITS UNDER THE SKIN AT BEDTIME FOR DIABETES SUBCUT ANEOUS DISCONT INUED (EDIT) 01/07/2024 [id number] NAIDL,TOD D 2022 5 [facility] MAGNESIUM OXIDE 400MG TAB TAKE ONE TABLET BY MOUTH EVERY DAY ORAL ACTIVE CHARLEE FISH A 2022 [facility] METFORMIN HCL 1000MG TAB TAKE ONE TABLET BY MOUTH TWICE A DAY FOR DIABETES ORAL ACTIVE 06/26/2025 [id number] CHARLEE FISH A 2023 180 [facility] METFORMIN HCL 1000MG TAB TAKE ONE TABLET BY MOUTH TWICE A DAY FOR DIABETES ORAL DISCONT INUED 07/16/2024 [id number] 4 NAIDL,TOD D 2023 180 [facility] METFORMIN HCL 1000MG TAB TAKE ONE TABLET BY MOUTH TWICE A DAY FOR DIABETES ORAL DISCONT INUED 04/11/2024 [id number] CHARLEE FISH A 2022 180 [facility] OMEPRAZOLE 20MG CAP,EC TAKE ONE CAPSULE BY MOUTH EVERY DAY ON AN EMPTY STOMACH, AT LEAST 30 MINUTES PRIOR TO A MEAL FOR GERD ORAL ACTIVE 05/18/2025 [id number] 4 ABE CHARLEE A 2023 90 [facility] OMEPRAZOLE 20MG CAP,EC TAKE ONE CAPSULE BY MOUTH EVERY DAY ON AN EMPTY STOMACH, AT LEAST 30 MINUTES PRIOR TO A MEAL FOR GERD ORAL DISCONT INUED 03/22/2024 [id number] CHARLEE FISH 2022 90 [facility] SEMAGLUTIDE 1MG/0.75ML INJ,SOLN,PE N,3ML INJECT 1MG UNDER THE SKIN EVERY WEEK FOR DIABETES SUBCUT ANEOUS DISCONT INUED 11/07/2024 [id number] NAIDL,TOD D 2023 1 [facility] SEMAGLUTIDE 1MG/0.75ML INJ,SOLN,PE N,3ML INJECT 1MG UNDER THE SKIN EVERY WEEK FOR DIABETES SUBCUT ANEOUS DISCONT INUED 11/08/2023 [id number] NAIDL,TOD D 2022 1 [facility] SEMAGLUTIDE 2MG/0.75ML INJ,SOLN,PE N,3ML INJECT 2MG UNDER THE SKIN ONCE WEEKLY FOR DIABETES SUBCUT ANEOUS ACTIVE 05/18/2025 [id number] CHARLEE FISH 2023 1 [facility] TAMSULOSIN HCL 0.4MG CAP TAKE ONE CAPSULE BY MOUTH EVERY EVENING ORAL ACTIVE 04/18/2025 [id number] CHARLEE FISH 2023 30 [facility] TAMSULOSIN HCL 0.4MG CAP TAKE ONE CAPSULE BY MOUTH EVERY EVENING ORAL DISCONT INUED 04/13/2024 [id number] CHARLEE FISH 2022 30 [facility] TAMSULOSIN HCL 0.4MG CAP TAKE ONE CAPSULE BY MOUTH EVERY EVENING ORAL DISCONT INUED 04/11/2024 [id number] CHARLEE FISH 2022 90 [facility] TURMERIC CAP/TAB TAKE 500 MG BY MOUTH TWICE A DAY ORAL ACTIVE MATTY POWERS P 2018 [facility] Allergies, Adverse Reactions, Alerts Combined list of allergies from Department of Defense and Veterans Affairs facilities. It does not include entries that were removed or entered in error. Substance Category Reaction Severity Reaction type Status Date Reported Comments Source VANCOMYCIN Propensity to adverse reactions to drug (finding) [place] active 8 [facility] Immunizations Combined list of available immunizations from the Department of Defense and Veterans Affairs facilities. Immunization Series Date Given Administered By Site Reaction Lot Number CVX Code Drug Production Statistical Clerk Status Comments Source COVID-19 (Takkle), MRNA, LNP-S, PF, JOSE-SUCROSE, 30 MCG/0.3 ML (AGES 12+ YEARS) 1 2023 TREVON GRIJALVA LEFT DELTO ID [id number] complet ed [facility] INFLUENZA, HIGH-DOSE, TRIVALENT, PF 2023 OLIVIA GRIJALVAEEN LEFT DELTO ID [id number] A 135 complet ed [facility] ZOSTER RECOMBINANT 2 2019 187 complet ed [facility] INFLUENZA, INJECTABLE, QUADRIVALENT, PRESERVATIVE FREE 2019 150 complet ed [facility] ZOSTER RECOMBINANT 1 2019 187 complet ed [facility] INFLUENZA, HIGH-DOSE, QUADRIVALENT 2019 197 complet ed [facility] INFLUENZA, SEASONAL, INJECTABLE, PRESERVATIVE FREE 2017 140 complet ed [facility] INFLUENZA, INJECTABLE, QUADRIVALENT, PRESERVATIVE FREE 2017 150 complet ed [facility] INFLUENZA, INJECTABLE, QUADRIVALENT, PRESERVATIVE FREE 2015 150 complet ed [facility] TDAP 2015 115 complet ed [place] [facility] PNEUMOCOCCAL CONJUGATE PCV 13 2015 133 complet ed [facility] TD (ADULT), 5 LF TETANUS TOXOID, PRESERVATIVE FREE, ADSORBED 2015 113 complet ed [facility] INFLUENZA, INJECTABLE, QUADRIVALENT, PRESERVATIVE FREE 2013 150 complet ed [facility] PNEUMOCOCCAL POLYSACCHARID E PPV23 2010 33 complet [facility] INFLUENZA, UNSPECIFIED FORMULATION 2006 88 complet [facility] PNEUMOCOCCAL, UNSPECIFIED FORMULATION 2006 109 complet [facility] TD(ADULT) UNSPECIFIED FORMULATION 2006 NONE 139 complet [facility] TETANUS TOXOID, UNSPECIFIED FORMULATION 2006 NONE 112 complet [facility] Results Combined list of recent chemistry, [...] AM Reporting Lab: [facility] [address] Performing Lab: [facility] [address] [facility] BASIC METABOLIC PANEL+MG UREA NITROGEN [MASS/VOLUM E] IN SERUM OR PLASMA 22 mg/dL 8 - 26 05/17 Specimen Type: PLASMA No comment entered. Ordering Provider: ME LEEROY FISH Report Released Date/Time: Apr 16, 2024 11:04 AM Reporting Lab: [facility] [address] Performing Lab: [facility] [address] [facility] BASIC METABOLIC PANEL+MG GLUCOSE [MASS/VOLUM E] IN SERUM OR PLASMA 187 mg/dL 70 - 100 05/17 H Specimen Type: PLASMA No comment entered. Ordering Provider: ME LEEROY FISH Report Released Date/Time: Apr 16, 2024 11:04 AM Reporting Lab: [facility] [address] Performing Lab: [facility] [address] [facility] METABOLIC PANEL+MG SODIUM [MOLES/VOLU ME] IN SERUM OR PLASMA 138 mmol/L 136 - 145 05/17 Specimen Type: PLASMA No comment entered. Ordering Provider: FISH,ME LODY A Report Released Date/Time: Apr 16, 2024 11:04 AM Reporting Lab: [facility] [address] Performing Lab: [facility] [address] [facility] BASIC METABOLIC PANEL+MG POTASSIUM [MOLES/VOLU ME] IN SERUM OR PLASMA 4.5 mmol/L 3.5 - 5.1 05/17 Specimen Type: PLASMA No comment entered. Ordering Provider: ME LEEROY FISH Report Released Date/Time: Apr 16, 2024 11:04 AM Reporting Lab: [facility] [address] Performing Lab: [facility] [address] [facility] BASIC METABOLIC PANEL+MG CHLORIDE [MOLES/VOLU ME] IN SERUM OR PLASMA 102 mmol/L 98 - 107 05/17 Specimen Type: PLASMA No comment entered. Ordering Provider: ME LEEROY FISH Report Released Date/Time: Apr 16, 2024 11:04 AM Reporting Lab: [facility] [address] Performing Lab: [facility] [address] [facility] BASIC METABOLIC PANEL+MG CARBON DIOXIDE, TOTAL [MOLES/VOLU ME] IN SERUM OR PLASMA 25 mmol/L 22 - 29 05/17 Specimen Type: PLASMA No comment entered. Ordering Provider: ME LEEROY FISH Report Released Date/Time: Apr 16, 2024 11:04 AM Reporting Lab: [facility] [address] Performing Lab: [facility] [address] [facility] BASIC METABOLIC PANEL+MG CALCIUM [MASS/VOLUM E] IN SERUM OR PLASMA 9.7 mg/dL 8.4 - 10.2 05/17 Specimen Type: PLASMA No comment entered. Ordering Provider: ME LEEROY FISH Report Released Date/Time: Apr 16, 2024 11:04 AM Reporting Lab: [facility] [address] Performing Lab: [facility] [address] [facility] BASIC METABOLIC PANEL+MG MAGNESIUM [MASS/VOLUM E] IN SERUM OR PLASMA 1.7 mg/dL 1.6 - 2.6 05/17 Specimen Type: PLASMA No comment entered. Ordering Provider: ME LEEROY FISH Report Released Date/Time: Apr 16, 2024 11:04 AM Reporting Lab: [facility] [address] Performing Lab: [facility] [address] [facility] BASIC METABOLIC PANEL+MG ANION GAP IN SERUM OR PLASMA 11 mmol/L 5 - 15 05/17 Specimen Type: PLASMA No comment entered. Ordering Provider: ME LEREOY FISH Report Released Date/Time: Apr 16, 2024 11:04 AM Reporting Lab: [facility] [address] Performing Lab: [facility] [address] [facility] BASIC METABOLIC PANEL+MG GLOMERULAR FILTRATION RATE/1.73 SQ M.PREDICTED [VOLUME RATE/AREA] IN SERUM, PLASMA OR BLOOD BY CREATININE- BASED FORMULA (CKD-EPI 2020) 62 60 05/17 Specimen Type: PLASMA No comment entered. Ordering Provider: ME LEEROY FISH Report Released Date/Time: Apr 16, 2024 11:04 AM Reporting Lab: [facility] [address] Performing Lab: [facility] [address] [facility] CBC & DIFF LEUKOCYTES [#/VOLUME] IN BLOOD BY AUTOMATED COUNT 8.8 4.0 - 11.0 05/17 Specimen Type: BLOOD Comment: Automated Differentia l Performed Ordering Provider: ME LEEROY FISH Report Released Date/Time: Apr 16, 2024 11:04 AM Reporting Lab: [facility] [address] Performing Lab: [facility] [address] [facility] CBC & DIFF ERYTHROCYTE S [#/VOLUME] IN BLOOD BY AUTOMATED COUNT 4.74 4.60 - 6.20 05/17 Specimen Type: BLOOD Comment: Automated Differentia l Performed Ordering Provider: ME LEEROY FISH Report Released Date/Time: Apr 16, 2024 11:04 AM Reporting Lab: [facility] [address] Performing Lab: [facility] [address] [facility] CBC & DIFF HEMOGLOBIN [MASS/VOLUM E] IN BLOOD 13.1 g/dL 13.5 - 17.9 05/17 L Specimen Type: BLOOD Comment: Automated Differentia l Performed Ordering Provider: ME LEEROY FISH Report Released Date/Time: Apr 16, 2024 11:04 AM Reporting Lab: [facility] [address] Performing Lab: [facility] [address] [facility] CBC & DIFF HEMATOCRIT [VOLUME FRACTION] OF BLOOD BY AUTOMATED COUNT 40.7 41.0 - 54.0 05/17 L Specimen Type: BLOOD Comment: Automated Differentia l Performed Ordering Provider: ME LEEROY FISH Report Released Date/Time: Apr 16, 2024 11:04 AM Reporting Lab: [facility] [address] Performing Lab: [facility] [address] [facility] CBC & DIFF MCV [ENTITIC VOLUME] BY AUTOMATED COUNT 85.9 fL 80.0 - 100.0 05/17 Specimen Type: BLOOD Comment: Automated Differentia l Performed Ordering Provider: ME LEEROY FISH Report Released Date/Time: Apr 16, 2024 11:04 AM Reporting Lab: [facility] [address] Performing Lab: [facility] [address] [facility] CBC & DIFF MCH [ENTITIC MASS] BY AUTOMATED COUNT 27.6 pg 27.0 - 33.0 05/17 Specimen Type: BLOOD Comment: Automated Differentia l Performed Ordering Provider: ME LEEROY FISH Report Released Date/Time: Apr 16, 2024 11:04 AM Reporting Lab: [facility] [address] Performing Lab: [facility] [address] [facility] CBC & DIFF MCHC [MASS/VOLUM E] BY AUTOMATED COUNT 32.2 g/dL 32.0 - 37.5 05/17 Specimen Type: BLOOD Comment: Automated Differentia l Performed Ordering Provider: ME LEEROY FISH Report Released Date/Time: Apr 16, 2024 11:04 AM Reporting Lab: [facility] [address] Performing Lab: [facility] [address] [facility] CBC & DIFF PLATELETS [#/VOLUME] IN BLOOD BY AUTOMATED COUNT 185 150 - 400 05/17 Specimen Type: BLOOD Comment: Automated Differentia l Performed Ordering Provider: ME LEEROY FISH Report Released Date/Time: Apr 16, 2024 11:04 AM Reporting Lab: [facility] [address] Performing Lab: [facility] [address] [facility] CBC & DIFF PLATELET MEAN VOLUME [ENTITIC VOLUME] IN BLOOD BY AUTOMATED COUNT 9.6 fL 9.1 - 13.0 05/17 Specimen Type: BLOOD Comment: Automated Differentia l Performed Ordering Provider: ME LEEROY FISH Report Released Date/Time: Apr 16, 2024 11:04 AM Reporting Lab: [facility] [address] Performing Lab: [facility] [address] [facility] CBC & DIFF NEUTROPHILS /100 LEUKOCYTES IN BLOOD BY MANUAL COUNT 68.6 40.0 - 80.0 05/17 Specimen Type: BLOOD Comment: Automated Differentia l Performed Ordering Provider: ME LEEROY FISH Report Released Date/Time: Apr 16, 2024 11:04 AM Reporting Lab: [facility] [address] Performing Lab: [facility] [address] [facility] CBC & DIFF LYMPHOCYTES /100 LEUKOCYTES IN BLOOD BY MANUAL COUNT 21.8 15.0 - 45.0 05/17 Specimen Type: BLOOD Comment: Automated Differentia l Performed Ordering Provider: ME LEEROY FISH Report Released Date/Time: Apr 16, 2024 11:04 AM Reporting Lab: [facility] [address] Performing Lab: [facility] [address] [facility] CBC & DIFF MONOCYTES/1 00 LEUKOCYTES IN BLOOD BY AUTOMATED COUNT 5.9 2.0 - 12.0 05/17 Specimen Type: BLOOD Comment: Automated Differentia l Performed Ordering Provider: ME LEEROY FISH Report Released Date/Time: Apr 16, 2024 11:04 AM Reporting Lab: [facility] [address] Performing Lab: [facility] [address] [facility] CBC & DIFF EOSINOPHILS /100 LEUKOCYTES IN BLOOD BY AUTOMATED COUNT 2.9 0.0 - 6.0 05/17 Specimen Type: BLOOD Comment: Automated Differentia l Performed Ordering Provider: ME LEEROY FISH Report Released Date/Time: Apr 16, 2024 11:04 AM Reporting Lab: [facility] [address] Performing Lab: [facility] [address] [facility] CBC & DIFF BASOPHILS/1 00 LEUKOCYTES IN BLOOD BY MANUAL COUNT 0.5 0.0 - 2.0 05/17 Specimen Type: BLOOD Comment: Automated Differentia l Performed Ordering Provider: ME LEEROY FISH Report Released Date/Time: Apr 16, 2024 11:04 AM Reporting Lab: [facility] [address] Performing Lab: [facility] [address] [facility] CBC & DIFF ERYTHROCYTE DISTRIBUTIO N WIDTH [RATIO] BY AUTOMATED COUNT 15.0 11.5 - 14.5 05/17 H Specimen Type: BLOOD Comment: Automated Differentia l Performed Ordering Provider: ME LEEROY FISH Report Released Date/Time: Apr 16, 2024 11:04 AM Reporting Lab: [facility] [address] Performing Lab: [facility] [address] [facility] CBC & DIFF LYMPHOCYTES [#/VOLUME] IN BLOOD BY AUTOMATED COUNT 1.9 1.0 - 4.0 05/17 Specimen Type: BLOOD Comment: Automated Differentia l Performed Ordering Provider: ME LEEROY FISH Report Released Date/Time: Apr 16, 2024 11:04 AM Reporting Lab: [facility] [address] Performing Lab: [facility] [address] [facility] CBC & DIFF MONOCYTES [#/VOLUME] IN BLOOD BY AUTOMATED COUNT 0.5 0.1 - 1.0 05/17 Specimen Type: BLOOD Comment: Automated Differentia l Performed Ordering Provider: ME LEEROY FISH Report Released Date/Time: Apr 16, 2024 11:04 AM Reporting Lab: [facility] [address] Performing Lab: [facility] [address] [facility] CBC & DIFF NEUTROPHILS [#/VOLUME] IN BLOOD BY AUTOMATED COUNT 6.0 2.0 - 7.7 05/17 Specimen Type: BLOOD Comment: Automated Differentia l Performed Ordering Provider: ME LEEROY FISH Report Released Date/Time: Apr 16, 2024 11:04 AM Reporting Lab: [facility] [address] Performing Lab: [facility] [address] [facility] CBC & DIFF EOSINOPHILS [#/VOLUME] IN BLOOD BY AUTOMATED COUNT 0.3 0.0 - 0.5 05/17 Specimen Type: BLOOD Comment: Automated Differentia l Performed Ordering Provider: ME LEEROY FISH Report Released Date/Time: Apr 16, 2024 11:04 AM Reporting Lab: [facility] [address] Performing Lab: [facility] [address] [facility] CBC & DIFF BASOPHILS [#/VOLUME] IN BLOOD BY AUTOMATED COUNT 0.0 0.0 - 0.2 05/17 Specimen Type: BLOOD Comment: Automated Differentia l Performed Ordering Provider: ME LEEROY FISH Report Released Date/Time: Apr 16, 2024 11:04 AM Reporting Lab: [facility] [address] Performing Lab: [facility] [address] [facility] CBC & DIFF IG(META,MYE LO,PRO) 0.3 05/17 Specimen Type: BLOOD Comment: Automated Differentia l Performed Ordering Provider: ME LEEROY FISH Report Released Date/Time: Apr 16, 2024 11:04 AM Reporting Lab: [facility] [address] Performing Lab: [facility] [address] [facility] CBC & DIFF IMMATURE GRANULOCYTE S [PRESENCE] IN BLOOD BY AUTOMATED COUNT 0.0 0.0 - 0.1 05/17 Specimen Type: BLOOD Comment: Automated Differentia l Performed Ordering Provider: ME LEEROY FISH Report Released Date/Time: Apr 16, 2024 11:04 AM Reporting Lab: [facility] [address] Performing Lab: [facility] [address] [facility] HEMOGLOBI N A1C HEMOGLOBIN A1C/HEMOGLO [...] AM Reporting Lab: [facility] [address] Performing Lab: [facility] [address] [facility] BASIC METABOLIC PANEL+MG CREATININE [MASS/VOLUM E] IN SERUM OR PLASMA 1.2 mg/dL 0.7 - 1.2 03/22 Specimen Type: PLASMA No comment entered. Ordering Provider: ME LEEROY FISH Report Released Date/Time: Aug 21, 2022 03:48 PM Reporting Lab: [facility] [address] Performing Lab: [facility] [address] [facility] BASIC METABOLIC PANEL+MG UREA NITROGEN [MASS/VOLUM E] IN SERUM OR PLASMA 15 mg/dL 8 - 03/22 Specimen Type: PLASMA No comment entered. Ordering Provider: ME LEEROY FISH Report Released Date/Time: Aug 21, 2022 03:48 PM Reporting Lab: [facility] [address] Performing Lab: [facility] [address] [facility] BASIC METABOLIC PANEL+MG GLUCOSE [MASS/VOLUM E] IN SERUM OR PLASMA 145 mg/dL 70 - 100 03/22 H Specimen Type: PLASMA No comment entered. Ordering Provider: ME LEEROY FISH Report Released Date/Time: Aug 21, 2022 03:48 PM Reporting Lab: [facility] [address] Performing Lab: [facility] [address] [facility] BASIC METABOLIC PANEL+MG SODIUM [MOLES/VOLU ME] IN SERUM OR PLASMA 138 mmol/L 136 - 145 03/22 Specimen Type: PLASMA No comment entered. Ordering Provider: ME LEEROY FISH Report Released Date/Time: Aug 21, 2022 03:48 PM Reporting Lab: [facility] [address] Performing Lab: [facility] [address] [facility] BASIC METABOLIC PANEL+MG POTASSIUM [MOLES/VOLU ME] IN SERUM OR PLASMA 4.5 mmol/L 3.5 - 5.1 03/22 Specimen Type: PLASMA No comment entered. Ordering Provider: ME LEEROY FISH Report Released Date/Time: Aug 21, 2022 03:48 PM Reporting Lab: [facility] [address] Performing Lab: [facility] [address] [facility] BASIC METABOLIC PANEL+MG CHLORIDE [MOLES/VOLU ME] IN SERUM OR PLASMA 101 mmol/L 98 - 107 03/22 Specimen Type: PLASMA No comment entered. Ordering Provider: ME LEEROY FISH Report Released Date/Time: Aug 21, 2022 03:48 PM Reporting Lab: [facility] [address] Performing Lab: [facility] [address] [facility] BASIC METABOLIC PANEL+MG CARBON DIOXIDE, TOTAL [MOLES/VOLU ME] IN SERUM OR PLASMA 27 mmol/L 22 - 29 03/22 Specimen Type: PLASMA No comment entered. Ordering Provider: ME LEEROY FISH Report Released Date/Time: Aug 21, 2022 03:48 PM Reporting Lab: [facility] [address] Performing Lab: [facility] [address] [facility] BASIC METABOLIC PANEL+MG CALCIUM [MASS/VOLUM E] IN SERUM OR PLASMA 10.0 mg/dL 8.4 - 10.2 03/22 Specimen Type: PLASMA No comment entered. Ordering Provider: ME LEEROY FISH Report Released Date/Time: Aug 21, 2022 03:48 PM Reporting Lab: [facility] [address] Performing Lab: [facility] [address] [facility] BASIC METABOLIC PANEL+MG MAGNESIUM [MASS/VOLUM E] IN SERUM OR PLASMA 1.9 mg/dL 1.6 - 2.6 03/22 Specimen Type: PLASMA No comment entered. Ordering Provider: ME LEEROY FISH Report Released Date/Time: Aug 21, 2022 03:48 PM Reporting Lab: [facility] [facility] [address] Performing Lab: [facility] [address] [facility] BASIC METABOLIC PANEL+MG ANION GAP IN SERUM OR PLASMA 10 mmol/L 5 - 15 03/22 Specimen Type: PLASMA No comment entered. Ordering Provider: ME LEEROY FISH Report Released Date/Time: Aug 21, 2022 03:48 PM Reporting Lab: [facility] [address] Performing Lab: [facility] [address] [facility] METABOLIC PANEL+MG GLOMERULAR FILTRATION RATE/1.73 SQ M.PREDICTED [VOLUME RATE/AREA] IN SERUM, PLASMA OR BLOOD BY CREATININE- BASED FORMULA (CKD-EPI 2020) 63 60 03/22 Specimen Type: PLASMA No comment entered. Ordering Provider: ME LEEROY FISH Report Released Date/Time: Aug 21, 2022 03:48 PM Reporting Lab: [facility] [address] Performing Lab: [facility] [address] [facility] HEMOGLOBI N A1C HEMOGLOBIN [...] Aug 21, 2022 03:48 PM Reporting Lab: [facility] [address] Performing Lab: [facility] [address] [facility] BAS[facility] METABOLIC PANEL+MG CREATININE [MASS/VOLUM E] IN SERUM OR PLASMA 0.9 mg/dL 0.7 - 1.2 08/18 Specimen Type: PLASMA No comment entered. Ordering Provider: ME LEEROY FISH Report Released Date/Time: December 22, 2021 03:46 PM Reporting Lab: [facility] [address] Performing Lab: [facility] [address] [facility] BASIC METABOLIC PANEL+MG UREA NITROGEN [MASS/VOLUM E] IN SERUM OR PLASMA 12 mg/dL 8 - 08/18 Specimen Type: PLASMA No comment entered. Ordering Provider: ME LEEROY FISH Report Released Date/Time: December 22, 2021 03:46 PM Reporting Lab: [facility] [address] Performing Lab: [facility] [address] [facility] BASIC METABOLIC PANEL+MG GLUCOSE [MASS/VOLUM E] IN SERUM OR PLASMA 184 mg/dL 70 - 100 08/18 H Specimen Type: PLASMA No comment entered. Ordering Provider: ME LEEROY FISH Report Released Date/Time: December 22, 2021 03:46 PM Reporting Lab: [facility] [address] Performing Lab: [facility] [address] [facility]IC METABOLIC PANEL+MG SODIUM [MOLES/VOLU ME] IN SERUM OR PLASMA 137 mmol/L 136 - 145 08/18 Specimen Type: PLASMA No comment entered. Ordering Provider: ME LEEROY FISH Report Released Date/Time: December 22, 2021 03:46 PM Reporting Lab: [facility] [address] Performing Lab: [facility] [address] [facility] BASIC METABOLIC PANEL+MG POTASSIUM [MOLES/VOLU ME] IN SERUM OR PLASMA 3.9 mmol/L 3.5 - 5.1 08/18 Specimen Type: PLASMA No comment entered. Ordering Provider: ME LEEROY FISH Report Released Date/Time: December 22, 2021 03:46 PM Reporting Lab: [facility] [address] Performing Lab: [facility] [address] [facility] BASIC METABOLIC PANEL+MG CHLORIDE [MOLES/VOLU ME] IN SERUM OR PLASMA 102 mmol/L 98 - 107 08/18 Specimen Type: PLASMA No comment entered. Ordering Provider: ME LEEROY FISH Report Released Date/Time: December 22, 2021 03:46 PM Reporting Lab: [facility] [address] Performing Lab: [facility] [address] [facility] METABOLIC PANEL+MG CARBON DIOXIDE, TOTAL [MOLES/VOLU ME] IN SERUM OR PLASMA 26 mmol/L 22 - 29 08/18 Specimen Type: PLASMA No comment entered. Ordering Provider: ME LEEROY FISH Report Released Date/Time: December 22, 2021 03:46 PM Reporting Lab: [facility] [address] Performing Lab: [facility] [address] [facility] BASIC METABOLIC PANEL+MG CALCIUM [MASS/VOLUM E] IN SERUM OR PLASMA 9.4 mg/dL 8.4 - 10.2 08/18 Specimen Type: PLASMA No comment entered. Ordering Provider: ME LEEROY FISH Report Released Date/Time: December 22, 2021 03:46 PM Reporting Lab: [facility] [address] Performing Lab: [facility] [address] [facility] BASIC METABOLIC PANEL+MG MAGNESIUM [MASS/VOLUM E] IN SERUM OR PLASMA 1.6 mg/dL 1.6 - 2.6 08/18 Specimen Type: PLASMA No comment entered. Ordering Provider: ME LEEROY FISH Report Released Date/Time: December 22, 2021 03:46 PM Reporting Lab: [facility] [address] Performing Lab: [facility] [address] [facility] BASIC METABOLIC PANEL+MG ANION GAP IN SERUM OR PLASMA 9 mmol/L 5 - 15 08/18 Specimen Type: PLASMA No comment entered. Ordering Provider: ME LEEROY FISH Report Released Date/Time: December 22, 2021 03:46 PM Reporting Lab: [facility] [address] Performing Lab: [facility] [address] [facility] BASIC METABOLIC PANEL+MG GLOMERULAR FILTRATION RATE/1.73 SQ M.PREDICTED [VOLUME RATE/AREA] IN SERUM, PLASMA OR BLOOD BY CREATININE- BASED FORMULA (CKD-EPI) 89 60 08/18 Specimen Type: PLASMA No comment entered. Ordering Provider: ME LEEROY FISH Report Released Date/Time: December 22, 2021 03:46 PM Reporting Lab: [facility] [address] Performing Lab: [facility] [address] [facility] HEMOGLOBI N A1C [...] December 22, 2021 03:46 PM Reporting Lab: [facility] [address] Performing Lab: [facility] [address] [facility] Vital Signs Combined list of inpatient and outpatient Vital Signs from Department of [facility] and Veterans Affairs, ranging from 12 months to all on record, depending upon the facility. Vital Sign Value Date Comments Source SYSTOLIC BLOOD PRESSURE 123 05/17/2024 14:50:52 [facility] DIASTOLIC BLOOD PRESSURE 79 05/17/2024 14:50:52 [facility] PULSE OXIMETRY 95 05/17/2024 14:50:52 [facility] WEIGHT 240.8 05/17/2024 14:50:52 [facility] BMI 35kg/m2 05/17/2024 14:50:52 [facility] PAIN 0 05/17/2024 14:50:52 [facility] HEIGHT 70 05/17/2024 14:50:52 [facility] TEMPERATURE 97.8 05/17/2024 14:50:52 [facility] PULSE 113 05/17/2024 14:50:52 [facility] Encounters Combined list of: 1) 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 2) Encounters from the Department of [facility] facilities going back up to 280 months. Location Location Details Encounter Type Encounter Number Reason For Visit Attending Provider ADM Date DC Date Status Disposition Source [facility] Outpatient Encounter [id number] 03/10 [facility] HC PRO PHONE CALL 11-20 MIN [id number] Diagnos is: ICD-10- CM E11.42 Type 2 diabete s mellitu s with diabeti c polyneu ropathy
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
NAIDL,KARI 04/18 [facility] PRO PHONE CALL 21-30 MIN [id number] Diagnos is: ICD-10- CM E11.42 Type 2 diabete s mellitu s with diabeti c polyneu ropathy
NAIDL,KARI 07/11 [place] [facility] MTMS BY PHARM ADDL 15 MIN [id number] Diagnos is: ICD-10- CM E11.42 Type 2 diabete s mellitu s with diabeti c polyneu ropathy
NAIDL,KARI 08/29 [facility] MTMS BY PHARM EST 15 MIN [id number] Diagnos is: ICD-10- CM E11.42 Type 2 diabete s mellitu s with diabeti c polyneu ropathy
AWKER,SOLEDAD L 10/10 [facility] En[facility] [id number] 10/16 [facility] MTMS BY PHARM EST 15 MIN [id number] Diagnos is: ICD-10- CM E11.621 Type 2 diabete s mellitu s with foot ulcer<b r/> NAIDL,KARI 11/06 [facility] MTMS BY PHARM ADDL 15 MIN [id number] Diagnos is: ICD-10- CM E11.42 Type 2 diabete s mellitu s with diabeti c polyneu ropathy
NAIDL,KARI 11/22 [facility] MTMS BY PHARM ADDL 15 MIN [id number] Diagnos is: ICD-10- CM E11.42 Type 2 diabete s mellitu s with diabeti c polyneu ropathy
NAIDL,KARI 01/17 [facility] En[facility] [id number] Diagnos is: ICD-10- CM E11.42 Type 2 diabete s mellitu s with diabeti c polyneu ropathy
DAWNA ,MILAGRO 01/18 [facility] QNHP OL DIG ASSMT&MGMT 5-10 [id number] Diagnos is: ICD-10- CM E11.42 Type 2 diabete s mellitu s with diabeti c polyneu ropathy
MOE CHOWDHURY 01/18 [facility] MTMS BY PHARM EST 15 MIN [id number] Diagnos is: ICD-10- CM E11.42 Type 2 diabete s mellitu s with diabeti c polyneu ropathy
NAIDJignesh,KARI 02/21 [facility] [id number] RORY CAPPS 02/26 [facility]counter [id number] 03/14 [facility] QNHP OL DIG ASSMT&MGMT 11-20 [id number] Diagnos is: ICD-10- CM E11.42 Type 2 diabete s mellitu s with diabeti c polyneu ropathy
NAIDL,KARI 03/27 [facility] En[facility] [id number] 04/16 [facility] MTMS BY PHARM EST 15 MIN [id number] Diagnos is: ICD-10- CM E11.42 Type 2 diabete s mellitu s with diabeti c polyneu ropathy
NAIDL,KARI 04/26 [facility] OFF[facility] O/P EST MOD 30 MIN [id number] Diagnos is: ICD-10- CM E11.42 Type 2 diabete s mellitu s with diabeti c polyneu ropathy
Rhiannon FISH 05/[address] [facility] MTMS BY PHARM EST 15 MIN [id number] Diagnos is: ICD-10- CM E11.42 Type 2 diabete s mellitu s with diabeti c polyneu ropathy
NAIDL,KARI 06/11 [place] En[facility] [id number] 07/01 [place] [facility] En[facility] [id number] 07/01 [facility] MTMS BY PHARM EST 15 MIN [id number] Diagnos is: ICD-10- CM E11.42 Type 2 diabete s mellitu s with diabeti c polyneu ropathy
NAIDL,KARI 07/[address] [place] [facility] En[facility] [id number] [place] CÁRDENAS I 07/[address] [facility] En[facility] [id number] ELIZABETH YOO 07/[address] 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 Social History Type Response Date Comment [facility] e Tobacco smoking status [facility]-TOBACCO FORMER USER 05/17/[facility] History of tobacco use NM-TOBACCO QUIT 1 5 YRS OR MORE 05/17/2024 [facility] History of tobacco use NM-TOBACCO FORMER USER 08/18/2022 [facility] History of tobacco use NM-TOBACCO QUIT 1 5 YRS OR MORE 05/03/2021 [facility] History of tobacco use VA-TOBACCO FORMER USER 04/21/2020 [facility] History of tobacco use FORMER TOBACCO US E >1Y <7Y 04/03/2018 [facility] History of tobacco use CURRENT TOBACCO USER 03/09/2007 [facility] Plan of Care List of future care activities from [facility] facilities. Additional future care activities may be listed in the Assessment and Plan section. Date/Time Care Activity Care Activity Detail Facili ty 08/14/2024 AMBULATORY - NONE [facility] - NONE [facility] Advance Directives List of completed, amended, or rescinded Advance Directives on record at [facility] facilities. An actual copy of the Directive is not included. Date Advance Directive Provider Source 06/22/2021 ADVANCE DIRECTIVE DISCUSSION ALLYSON GRAF [facility] 06/22/[address] [facility] 03/09/2007 [facility]
--- OUTSIDE RECORDS SUMMARY | 2024-07-17 07:14 | XMS_ITS | Data Portability ---
Author Organization [place] [facility], [facility] Address [address] [place] [address] Care Team Providers Care Master Rigger Name Role Phone POST, SUE Primary Care Provider [phone] Assessment Encounter Date Assessment Date Assessment LastModified [...] [facility], [address], [address], [place], [address], 3 10:05:08 urinalysis, dipstick 2022 023 [facility], [address], [place], [address], 12:03:37 Referral None recorded. Procedures None recorded. Surgeries None recorded. Imaging None recorded. Medication Orders None recorded. Patient TargetsNo targets recorded. Patient Instructions Encounter Date Encounter Id Patient Instructions Last Modified By Organization Details Last Modified Time 09/23/2022 [id number] Patient to call clinic with questions or concerns. Advised patient to increase water intake and to keep 4 week appointment for next catheter change. [email or web address] Not available 09/23/2022 13:22:30 11/04/2022 [id number] Pt has F/U appt with Dr Barrientos in [place] on 11/11/2022 @ 3:10pm to review UDS. [...] ate 3) Sensi tivit y Priscila sis [place] 2 [place] 3 ----- ----- ----- ----- ----- [...] s Desk [facility]. S= Susce ptibl [...] provi brandon revie w. Not Available [facility] [address], [place], [address], 11/07/2022 10:05:08 11/05/19 23 11/04/2022 urina lysis , dipst ick Color-Status Straw Not Available [facility] [address], [place], [address], 11/04/2022 12:02:10 11/05/19 23 11/04/2022 urina lysis , dipst ick Clarity-Stat us Slight ly Cloudy Not Available [facility] [address], [place], [address], 11/04/2022 12:02:10 11/05/19 23 11/04/2022 urina lysis , dipst ick Glucose-Stat us 500 Not Available [facility] [address], [place], [address], 11/04/2022 12:02:10 11/05/19 23 11/04/2022 urina lysis , dipst ick Bilirubin-St atus Negati ve Not Available [facility] [address], [place], [address], 11/04/2022 12:02:10 11/05/19 23 11/04/2022 urina lysis , dipst ick Ketones-Stat us Negati ve Not Available [facility] [address], [place], [address], 11/04/2022 12:02:10 11/05/19 23 11/04/2022 urina lysis , dipst ick Sp [place]-Stat us 1.015 Not Available [facility] [address], [place], [address], 11/04/2022 12:02:10 11/05/19 23 11/04/2022 urina lysis , dipst ick pH-Status 6.5 Not Available [facility] [address], [place], [address], 11/04/2022 12:02:10 11/05/19 23 11/04/2022 urina lysis , dipst ick Protein-Stat us 5.0 Not Available [facility] [address], [place], [address], 11/04/2022 12:02:10 11/05/19 23 11/04/2022 urina lysis , dipst ick Urobilinogen -Status 0.2 Not Available [facility] [address], [place], [address], 11/04/2022 12:02:10 11/05/19 23 11/04/2022 urina lysis , dipst ick Nitrates-Sta tus positi ve Not Available [facility] [address], [place], [address], 11/04/2022 12:02:10 11/05/19 23 11/04/2022 urina lysis , dipst ick Blood-Status Large Not Available [facility] [address], [place], [address], 11/04/2022 12:02:10 11/05/19 23 11/04/2022 urina lysis , dipst ick Leuko-Status Large Not Available [facility] [address], [place], [address], 11/04/2022 12:02:10 11/05/19 23 11/04/2022 urina lysis , dipst ick Specimen Type Cathet erized Not Available [facility] [address], [place], [address], 11/04/2022 12:02:10 11/05/19 23 11/04/2022 urina lysis , dipst ick Performed by LKchuckve n1 Not Available [facility] [address], [place], [address], 11/04/2022 12:02:10 Result Notes None recorded. Problems Name Problem SNOMED Code Status Onset Date Resolution Date Notes Provider Name and Address Organization Details Recorded Time Retention of urine 103241737 [facility] 13:15[facility]43 Problem Notes None recorded. Procedures Surgical History Date Name Laterality Status Provider Name and Address Organization Details Recorded Time 3 Fill and Pull/Voiding Trial/TOV completed Jenna Harris [facility] 12/09/2022 11:59:45 3 Urodynamic Studies completed Deyanira Woods [facility] 11/04/2022 12:19:38 3 Gordon Catheter Insertion completed Deyanira Woods [facility] 11/04/2022 12:21:21 3 Urethral Catheter Change completed Jenna Harris [facility] 10/21/2022 13:18:32 3 Urethral Catheter Change completed Nenita Flores [facility] 09/23/2022 13:21:12 3 Gordon Catheter Insertion completed Roula Beltran [facility] 08/03/2022 11:16:51 3 Fill and Pull/Voiding Trial/TOV completed Roula Beltran [facility] 08/03/2022 11:16:41 2 Cystoscopy- male completed Kristopher Barrientos MD, PHD [address] [place] [address],[address], [address], [facility] 06/30/2022 09:37:30 2 Urethral Catheter Change completed Carlos Mix [facility] 06/30/2022 09:49:15 2 Gordon Catheter Insertion completed Juanito Josue [facility] 06/16/2022 15:03:22 2 Fill and Pull/Voiding Trial/TOV completed Roula Tony PA-C [address] [place] [address],[address], [address], [facility] 06/16/2022 18:06:50 Cataract Surgery completed Juanito Josue [facility] 06/16/2022 12:30:25 Orthopedic Surgery completed Еленаarminda Josue [facility] 06/16/2022 12:30:33 Imaging Results [...] Updated DateTime 09/23/2022 180.34 cm Nenitaaranza Flores [facility] 09/23/2022 13:17:39 Date Recorded Body height Body mass index (BMI) Body weight Provider Name and Address Organization Details Last Updated DateTime 11/11/2022 180.34 cm 30 kg/m2 54135.36 g Amanda Molina [facility] 11/11/2022 16:25:51 Social History Question Answer Notes LastModified by Organizat ion Details LastModified Time Tobacco Smoking Status Former Smoker Juanito song [facility] 06/16/2022 12:29:38 What Is [...] Pressure N Kidney Stones N Depression N Sexually Transmitted Infection N Cancer N Bleeding Disorder N Lung Disease N GERD/Acid Reflux N High Cholesterol N Diabetes Y Heart Disease Y Past Encounters Encounter ID Performer Location Encounter Start Date Encounter Closed Date Diagnosis/Indication Diagnosis SNOMED-CT Code Diagnosis ICD10 Code [id number] Roula Tony PA-C [facility] [address] [place] [address] 06/16/2022 11:30:09 06/20/2022 08:36:10 Retention of urine 128771512 R33.9 Benign pro static hyperplasia with outflow obstruction 051097071 N40.1 [id number] Kristopher green MD, PHD [facility] [address] [place] [address] 06/30/2022 08:46:23 07/04/2022 11:29:58 Retention of urine 374968415 R33.9 Benign pro static hyperplasia with outflow obstruction 265371949 N40.1 [id number] Roula Ruby [facility] [address] [place] [address] 08/03/2022 10:27:16 08/05/2022 11:54:14 Retention of urine 926471519 R33.9 [id number] Nenitaaranza Flores [facility] [address] [place] [address] 09/23/2022 10:30:04 09/26/2022 14:37:37 [id number] Kristopher green MD, PHD [facility] [address] [place] [address] 11/04/2022 10:41:00 11/10/2022 13:37:32 Benign prostatic hyperplasia with outflow obstruction 296212271 N40.1 Retention of urine 90478 4002 R33.9 Microscopic hematuria 19 0015342 R31.29 [id number] Jenna Harris [facility] [address] [place] [address] 10/21/2022 11:27:55 10/24/2022 11:49:09 Retention of urine 373728449 R33.9 [id number] Kristopher green MD, PHD [facility] [address] [place] [address] 11/11/2022 16:25:28 11/17/2022 17:02:38 Retention of urine 090527162 R33.9 Benign pro static hyperplasia with outflow obstruction 469941594 N40.1 [id number] Jenna Harris [facility] [address] [place] [address] 12/09/2022 10:56:01 12/12/2022 15:10:14 Retention of urine 263857247 R33.9 Health Concerns Section Related Observation LastModified by Organization Detai ls LastModified Time None Recorded Concern Status LastModified by Organization Details LastModified Time None Recorded Advance Directives Directive None Recorded Payers Encounter Date Sequence Insurance Name Policy Number Policy Molina Covered Member ID Molina Member ID Guarantor Name 09/23/2022 1 [place] [employer] Tom B Renaux [id number] Tom B Renaux 09/23/2022 2 [place] [id number] Tom B Renaux [id number] Tom B Renaux 10/21/2022 1 [place] [employer] Tom B Renaux [id number] Tom B Renaux 10/21/2022 2 [place] [id number] Tom B Renaux [id number] Tom B Renaux 11/04/2022 1 [place] [employer] Tom B Renaux [id number] Tom B Renaux 11/04/2022 2 [place] [id number] Tom B Renaux [id number] Tom B Renaux 11/11/2022 1 [place] [employer] Tom B Renaux [id number] Tom B Renaux 11/11/2022 2 [place] [id number] Tom B Renaux [id number] Tom B Renaux 12/09/2022 1 [place] [employer] Tom B Renaux [id number] Tom B Renaux 12/09/2022 2 [place] [id number] Tom B Renaux [id number] Tom B Renaux Notes Date Note Type [...] weeks for next catheter change. Nenita song [facility] 09/23/2022 13:22:32 10/21/2022 text/html Pt here for cath eter change OLMAN Chappell - [facility] 10/21/2022 13:21:54 11/11/2022 text/html 77M with urinary retention. Hospitalization at [facility] from 04/30-05/30 for MSSA bacteremia [...] coordinate their care. Kristopher Barrientos MD, PHD [address] [place] [address],[address], [place], [address], [facility] 11/11/2022 17:49:57 12/09/2022 text/html Pt of Dr PALMER, her e for TOV recommended at 11/11/22 visit Jenna song [facility] 12/09/2022 12:43:22
[2024-07-17 13:02] VITALS: BP 136/85; PULSE 71; RESP 16; TEMP 36.6; O2SAT 97
[2024-07-17] MEDS: cefTRIAXone 2 GM in 0.9 % SODIUM CHLORIDE Mini-bag 100 ML IVPB (13:26)
[2024-07-17] MEDS: SODIUM CHLORIDE 0.9 % (FLUSH) 10 ML SYRINGE IVF (15:24)
--- OUTSIDE RECORDS SUMMARY | 2024-07-18 07:22 | XMS_ITS | Continuity of Care Document ---
Author Name [facility] Organization [facility] Care Team Providers Care Manager Ed Name Role Phone [facility] Unavailable Unavailable Problems Combined list of problems from Department of Defense and Veterans Affairs facilities. It does not include entries that were removed or entered in error. Problem Status Onset Date Problem Type Date of Resolution Comments Source Exposure to potentially hazardous substance ([facility] [id number]) Active 10/05/19 24 Condition Oct 05, 2023 Entered By: VIJI VIVAS Comment: [facility] CHANG Documentation Initiative [facility] Depressive Disorder NOS * (ICD-9-CM 311./300.4) Active Condition [facility] Diabetes mellitus (SNOMED CT 97924912) Active Condition [facility] Diabetic neuropathy Active Condition [facility] Foot Pain (ICD-9-CM 719.47) Active Condition Aug 26 10 Entered By: MALINA WORLEY Comment: left 5th metatarsal fracture [facility] History of amputation of lesser toe Active Condition [facility] Hyperlipidemia (SNOMED CT 96578995) Active Condition [facility] Hyperuricemia Active Condition [facility] Osteopenia Active Condition [facility] Other Iatrogenic Hypotension Active Condition [facility] Personal History of Alcoholism (ICD-9-CM V11.3) Active Condition [facility] Tobacco user (SNOMED CT 889103509) Active Condition [facility] Diagnosis: ICD-10-CM E11.42 Type 2 diabetes mellitus with diabetic polyneuropathy Active Diagnosis [facility] Diagnosis: ICD-10-CM E11.621 Type 2 diabetes mellitus with foot ulcer Active Diagnosis [facility] Medications Combined [...] DAY ORAL ACTIVE FISH, CHARLEE Robinson 2022 [facility] ASPIRIN 81MG TAB,EC TAKE ONE TABLET BY MOUTH EVERY DAY ORAL ACTIVE JEFF CHOUDHARY ER A 2006 [facility] ATORVASTATI N CA 40MG TAB TAKE ONE TABLET BY MOUTH EVERY DAY FOR CHOLESTE ROL ORAL ACTIVE 04/18/2025 [id number] 4 NAIDL,TOD D 2023 90 [facility] ATORVASTATI N CA 40MG TAB TAKE ONE TABLET BY MOUTH EVERY DAY FOR CHOLESTE ROL ORAL DISCONT INUED 04/11/2024 [id number] 4 FISH, CHARLEE Robinson 2022 90 [facility] CHOLECALCIF QUINTIN TAB TAKE 5000 UNITS BY MOUTH EVERY DAY ORAL ACTIVE FISH CHARLEE Robinson 2022 [facility] COENZYME Q10 CAP/TAB TAKE 1 CAPSULE BY MOUTH EVERY DAY ORAL ACTIVE FISH, CHARLEE Robinson 2022 [facility] CYANOCOBALA MIN 1000MCG TAB TAKE ONE TABLET BY MOUTH EVERY DAY ORAL ACTIVE NAIDL,TOD D 2021 [facility] DICLOFENAC NA 1% GEL,TOP APPLY 4 GRAMS TOPICALL Y FOUR TIMES A DAY NEEDED FOR JOINT PAIN TOPICA L HOLD 05/18/2025 [id number] FISH, CHARLEE Robinson 2023 100 [facility] FINASTERIDE 5MG TAB TAKE ONE TABLET BY MOUTH EVERY DAY FOR PROSTATE ORAL ACTIVE 04/18/2025 [id number] 4 FISH, CHARLEE A 2023 90 [facility] FINASTERIDE 5MG TAB TAKE ONE TABLET BY MOUTH EVERY DAY FOR PROSTATE ORAL DISCONT INUED 04/11/2024 [id number] 4 FISH, CHARLEE A 2022 90 [facility] FISH OIL 1000MG (500MG DHA/EPA) CAP,ORAL TAKE 1 CAPSULE BY MOUTH TWICE A DAY ORAL ACTIVE JEFF CHOUDHARY ER A 2006 [facility] INSULIN,GLA RGINE-YFGN 100UNIT/ML INJ PEN,3ML INJECT 24 UNITS UNDER THE SKIN EVERY MORNING FOR DIABETES SUBCUT ANEOUS SUSPEND ED 04/27/2025 [id number] 5 NAIDL,TOD D 2023 5 [facility] INSULIN,GLA RGINE-YFGN 100UNIT/ML INJ PEN,3ML INJECT 24 UNITS UNDER THE SKIN EVERY EVENING FOR DIABETES SUBCUT ANEOUS DISCONT INUED (EDIT) 04/17/2025 [id number] 4 NAIDL,TOD D 2023 5 [facility] INSULIN,GLA RGINE-YFGN 100UNIT/ML INJ PEN,3ML INJECT 24 UNITS UNDER THE SKIN EVERY EVENING FOR DIABETES SUBCUT ANEOUS DISCONT INUED 08/29/2024 [id number] NAIDL,TOD D 2023 5 [facility] INSULIN,GLA RGINE-YFGN 100UNIT/ML INJ PEN,3ML INJECT 22 UNITS UNDER THE SKIN AT BEDTIME FOR DIABETES SUBCUT ANEOUS DISCONT INUED (EDIT) 01/07/2024 [id number] NAIDL,TOD D 2022 5 [facility] MAGNESIUM OXIDE 400MG TAB TAKE ONE TABLET BY MOUTH EVERY DAY ORAL ACTIVE CHARLEE FISH A 2022 [facility] METFORMIN HCL 1000MG TAB TAKE ONE TABLET BY MOUTH TWICE A DAY FOR DIABETES ORAL ACTIVE 06/26/2025 [id number] 4 CHARLEE FISH A 2023 180 [facility] METFORMIN HCL 1000MG TAB TAKE ONE TABLET BY MOUTH TWICE A DAY FOR DIABETES ORAL DISCONT INUED 07/16/2024 [id number] 4 NAIDL,TOD D 2023 180 [facility] METFORMIN HCL 1000MG TAB TAKE ONE TABLET BY MOUTH TWICE A DAY FOR DIABETES ORAL DISCONT INUED 04/11/2024 [id number] 4 CHARLEE FISH A 2022 180 [facility] OMEPRAZOLE 20MG CAP,EC TAKE ONE CAPSULE BY MOUTH EVERY DAY ON AN EMPTY STOMACH, AT LEAST 30 MINUTES PRIOR TO A MEAL FOR GERD ORAL ACTIVE 05/18/2025 [id number] 4 ABE CHARLEE A 2023 90 [facility] OMEPRAZOLE 20MG CAP,EC TAKE ONE CAPSULE BY MOUTH EVERY DAY ON AN EMPTY STOMACH, AT LEAST 30 MINUTES PRIOR TO A MEAL FOR GERD ORAL DISCONT INUED 03/22/2024 [id number] CHARLEE FISH 2022 90 [facility] SEMAGLUTIDE 1MG/0.75ML INJ,SOLN,PE N,3ML INJECT 1MG UNDER THE SKIN EVERY WEEK FOR DIABETES SUBCUT ANEOUS DISCONT INUED 11/07/2024 [id number] 4 NAIDL,TOD D 2023 1 [facility] SEMAGLUTIDE 1MG/0.75ML INJ,SOLN,PE N,3ML INJECT 1MG UNDER THE SKIN EVERY WEEK FOR DIABETES SUBCUT ANEOUS DISCONT INUED 11/08/2023 [id number] NAIDL,TOD D 2022 1 [facility] SEMAGLUTIDE 2MG/0.75ML INJ,SOLN,PE N,3ML INJECT 2MG UNDER THE SKIN ONCE WEEKLY FOR DIABETES SUBCUT ANEOUS ACTIVE 05/18/2025 [id number] 4 CHARLEE FISH 2023 1 [facility] TAMSULOSIN HCL 0.4MG CAP TAKE ONE CAPSULE BY MOUTH EVERY EVENING ORAL ACTIVE 04/18/2025 [id number] CHARLEE FISH 2023 30 [facility] TAMSULOSIN HCL 0.4MG CAP TAKE ONE CAPSULE BY MOUTH EVERY EVENING ORAL DISCONT INUED 04/13/2024 [id number] CHARLEE FISH 2022 30 [facility] TAMSULOSIN HCL 0.4MG CAP TAKE ONE CAPSULE BY MOUTH EVERY EVENING ORAL DISCONT INUED 04/11/2024 [id number] 3 CHARLEE FISH 2022 90 [facility] TURMERIC CAP/TAB TAKE 500 MG BY MOUTH TWICE A DAY ORAL ACTIVE MATTY POWERS P 2018 [facility] Allergies, Adverse Reactions, Alerts Combined list of allergies from Department of Defense and Veterans Affairs facilities. It does not include entries that were removed or entered in error. Substance Category Reaction Severity Reaction type Status Date Reported Comments Source VANCOMYCIN Propensity to adverse reactions to drug (finding) [place] active 8 [facility] Immunizations Combined list of available immunizations from the Department of Defense and Veterans Affairs facilities. Immunization Series Date Given Administered By Site Reaction Lot Number CVX Code Drug Technical Services Coordinator Status Comments Source COVID-19 ([employer]), MRNA, LNP-S, PF, JOSE-SUCROSE, 30 MCG/0.3 ML (AGES 12+ YEARS) 1 2023 TREVON GRIJALVA LEFT DELTO ID [id number] 309 complet ed [facility] INFLUENZA, HIGH-DOSE, TRIVALENT, PF 2023 OLIVIA GRIJALVAEEN LEFT DELTO ID [id number] 135 complet ed [facility] ZOSTER RECOMBINANT 2 2019 187 complet ed [facility] INFLUENZA, INJECTABLE, QUADRIVALENT, PRESERVATIVE FREE 2019 150 complet ed [facility] ZOSTER RECOMBINANT 1 2019 187 complet ed [facility] INFLUENZA, HIGH-DOSE, QUADRIVALENT 2019 197 complet ed [facility] INFLUENZA, SEASONAL, INJECTABLE, PRESERVATIVE FREE 2017 140 complet ed [facility] INFLUENZA, INJECTABLE, QUADRIVALENT, PRESERVATIVE FREE 2017 150 complet ed [facility] INFLUENZA, INJECTABLE, QUADRIVALENT, PRESERVATIVE FREE 2015 150 complet ed [facility] TDAP 2015 115 complet ed [place] [facility] PNEUMOCOCCAL CONJUGATE PCV 13 2015 133 complet ed [facility] TD (ADULT), 5 LF TETANUS TOXOID, PRESERVATIVE FREE, ADSORBED 2015 113 complet ed [facility] INFLUENZA, INJECTABLE, QUADRIVALENT, PRESERVATIVE FREE 2013 150 complet ed [facility] PNEUMOCOCCAL POLYSACCHARID E PPV23 2010 33 complet [facility] INFLUENZA, UNSPECIFIED FORMULATION 2006 88 complet [facility] PNEUMOCOCCAL, UNSPECIFIED FORMULATION 2006 109 complet [facility] TD(ADULT) UNSPECIFIED FORMULATION 2006 NONE 139 complet [facility] TETANUS TOXOID, UNSPECIFIED FORMULATION 2006 NONE 112 complet [facility] Results Combined list of recent [...] 2024 11:04 AM Reporting Lab: [facility] [address] Performing Lab: [facility] [address] [facility] BASIC METABOLIC PANEL+MG CREATININE [MASS/VOLUM E] IN SERUM OR PLASMA 1.2 mg/dL 0.7 - 1.2 05/17 Specimen Type: PLASMA No comment entered. Ordering Provider: ME LEEROY FISH Report Released Date/Time: Apr 16, 2024 11:04 AM Reporting Lab: [facility] [address] Performing Lab: [facility] [address] [facility] BASIC METABOLIC PANEL+MG UREA NITROGEN [MASS/VOLUM E] IN SERUM OR PLASMA 22 mg/dL 8 - 26 05/17 Specimen Type: PLASMA No comment entered. Ordering Provider: ME LEEROY FISH Report Released Date/Time: Apr 16, 2024 11:04 AM Reporting Lab: [facility] [address] Performing Lab: [facility] [address] [facility] BASIC METABOLIC PANEL+MG GLUCOSE [MASS/VOLUM E] IN SERUM OR PLASMA 187 mg/dL 70 - 100 05/17 H Specimen Type: PLASMA No comment entered. Ordering Provider: ME LEEROY FISH Report Released Date/Time: Apr 16, 2024 11:04 AM Reporting Lab: [facility] [address] Performing Lab: [facility] [address] [place] [facility] BASIC METABOLIC PANEL+MG SODIUM [MOLES/VOLU ME] IN SERUM OR PLASMA 138 mmol/L 136 - 145 05/17 Specimen Type: PLASMA No comment entered. Ordering Provider: ME LEEROY FISH Report Released Date/Time: Apr 16, 2024 11:04 AM Reporting Lab: [facility] [address] Performing Lab: [facility] [address] [place] BASIC METABOLIC PANEL+MG POTASSIUM [MOLES/VOLU ME] IN SERUM OR PLASMA 4.5 mmol/L 3.5 - 5.1 05/17 Specimen Type: PLASMA No comment entered. Ordering Provider: ME LEEROY FISH Report Released Date/Time: Apr 16, 2024 11:04 AM Reporting Lab: [facility] [address] Performing Lab: [facility] [address] [place] BASIC METABOLIC PANEL+MG CHLORIDE [MOLES/VOLU ME] IN SERUM OR PLASMA 102 mmol/L 98 - 107 05/17 Specimen Type: PLASMA No comment entered. Ordering Provider: ME LEEROY FISH Report Released Date/Time: Apr 16, 2024 11:04 AM Reporting Lab: [facility] [phone] Performing Lab: [facility] [address] [place] BASIC METABOLIC PANEL+MG CARBON DIOXIDE, TOTAL [MOLES/VOLU ME] IN SERUM OR PLASMA 25 mmol/L 22 - 29 05/17 Specimen Type: PLASMA No comment entered. Ordering Provider: ME LEEROY FISH Report Released Date/Time: Apr 16, 2024 11:04 AM Reporting Lab: [facility] [address] Performing Lab: [facility] [address] [place] [facility] BASIC METABOLIC PANEL+MG CALCIUM [MASS/VOLUM E] IN SERUM OR PLASMA 9.7 mg/dL 8.4 - 10.2 05/17 Specimen Type: PLASMA No comment entered. Ordering Provider: ME LEEROY FISH Report Released Date/Time: Apr 16, 2024 11:04 AM Reporting Lab: [facility] [address] Performing Lab: [facility] [address] [place] [facility] BASIC METABOLIC PANEL+MG MAGNESIUM [MASS/VOLUM E] IN SERUM OR PLASMA 1.7 mg/dL 1.6 - 2.6 05/17 Specimen Type: PLASMA No comment entered. Ordering Provider: ME LEEROY FISH Report Released Date/Time: Apr 16, 2024 11:04 AM Reporting Lab: [facility] [address] Performing Lab: [facility] [address] [place] [facility] BASIC METABOLIC PANEL+MG ANION GAP IN SERUM OR PLASMA 11 mmol/L 5 - 15 05/17 Specimen Type: PLASMA No comment entered. Ordering Provider: ME LEEROY FISH Report Released Date/Time: Apr 16, 2024 11:04 AM Reporting Lab: [facility] [address] Performing Lab: [facility] [address] [place] [facility] BASIC METABOLIC PANEL+MG GLOMERULAR FILTRATION RATE/1.73 SQ M.PREDICTED [VOLUME RATE/AREA] IN SERUM, PLASMA OR BLOOD BY CREATININE- BASED FORMULA (CKD-EPI 2020) 62 60 05/17 Specimen Type: PLASMA No comment entered. Ordering Provider: ME LEEROY FISH Report Released Date/Time: Apr 16, 2024 11:04 AM Reporting Lab: [facility] [address] Performing Lab: [facility] [address] [place] CBC & DIFF LEUKOCYTES [#/VOLUME] IN BLOOD BY AUTOMATED COUNT 8.8 4.0 - 11.0 05/17 Specimen Type: BLOOD Comment: Automated Differentia l Performed Ordering Provider: ME LEEROY FISH Report Released Date/Time: Apr 16, 2024 11:04 AM Reporting Lab: [facility] [address] Performing Lab: [facility] [address] [place] [facility] CBC & DIFF ERYTHROCYTE S [#/VOLUME] IN BLOOD BY AUTOMATED COUNT 4.74 4.60 - 6.20 05/17 Specimen Type: BLOOD Comment: Automated Differentia l Performed Ordering Provider: ME LEEROY FISH Report Released Date/Time: Apr 16, 2024 11:04 AM Reporting Lab: [facility] [address] Performing Lab: [facility] [address] [place] [facility] CBC & DIFF HEMOGLOBIN [MASS/VOLUM E] IN BLOOD 13.1 g/dL 13.5 - 17.9 05/17 L Specimen Type: BLOOD Comment: Automated Differentia l Performed Ordering Provider: ME LEEROY FISH Report Released Date/Time: Apr 16, 2024 11:04 AM Reporting Lab: [facility] [address] Performing Lab: [facility] [address] [place] [facility] CBC & DIFF HEMATOCRIT [VOLUME FRACTION] OF BLOOD BY AUTOMATED COUNT 40.7 41.0 - 54.0 05/17 L Specimen Type: BLOOD Comment: Automated Differentia l Performed Ordering Provider: ME LEEROY FISH Report Released Date/Time: Apr 16, 2024 11:04 AM Reporting Lab: [facility] [address] Performing Lab: [facility] [address] [place] [facility] CBC & DIFF MCV [ENTITIC VOLUME] BY AUTOMATED COUNT 85.9 fL 80.0 - 100.0 05/17 Specimen Type: BLOOD Comment: Automated Differentia l Performed Ordering Provider: ME LEEROY FISH Report Released Date/Time: Apr 16, 2024 11:04 AM Reporting Lab: [facility] [address] Performing Lab: [facility] [address] [facility] CBC & DIFF MCH [ENTITIC MASS] BY AUTOMATED COUNT 27.6 pg 27.0 - 33.0 05/17 Specimen Type: BLOOD Comment: Automated Differentia l Performed Ordering Provider: ME LEEROY FISH Report Released Date/Time: Apr 16, 2024 11:04 AM Reporting Lab: [facility] [address] Performing Lab: [facility] [address] [facility] CBC & DIFF MCHC [MASS/VOLUM E] BY AUTOMATED COUNT 32.2 g/dL 32.0 - 37.5 05/17 Specimen Type: BLOOD Comment: Automated Differentia l Performed Ordering Provider: ME LEEROY FISH Report Released Date/Time: Apr 16, 2024 11:04 AM Reporting Lab: [facility] [address] Performing Lab: [facility] [address] [facility] CBC & DIFF PLATELETS [#/VOLUME] IN BLOOD BY AUTOMATED COUNT 185 150 - 400 05/17 Specimen Type: BLOOD Comment: Automated Differentia l Performed Ordering Provider: ME LEEROY FISH Report Released Date/Time: Apr 16, 2024 11:04 AM Reporting Lab: [facility] [address] Performing Lab: [facility] [address] [facility] CBC & DIFF PLATELET MEAN VOLUME [ENTITIC VOLUME] IN BLOOD BY AUTOMATED COUNT 9.6 fL 9.1 - 13.0 05/17 Specimen Type: BLOOD Comment: Automated Differentia l Performed Ordering Provider: ME LEEROY FISH Report Released Date/Time: Apr 16, 2024 11:04 AM Reporting Lab: [facility] [address] Performing Lab: [facility] [address] [facility] CBC & DIFF NEUTROPHILS /100 LEUKOCYTES IN BLOOD BY MANUAL COUNT 68.6 40.0 - 80.0 05/17 Specimen Type: BLOOD Comment: Automated Differentia l Performed Ordering Provider: ME LEEROY FISH Report Released Date/Time: Apr 16, 2024 11:04 AM Reporting Lab: [facility] [address] Performing Lab: [facility] [address] [place] [facility] CBC & DIFF LYMPHOCYTES /100 LEUKOCYTES IN BLOOD BY MANUAL COUNT 21.8 15.0 - 45.0 05/17 Specimen Type: BLOOD Comment: Automated Differentia l Performed Ordering Provider: ME LEEROY FISH Report Released Date/Time: Apr 16, 2024 11:04 AM Reporting Lab: [facility] [address] Performing Lab: [facility] [address] [place] [facility] CBC & DIFF MONOCYTES/1 00 LEUKOCYTES IN BLOOD BY AUTOMATED COUNT 5.9 2.0 - 12.0 05/17 Specimen Type: BLOOD Comment: Automated Differentia l Performed Ordering Provider: ME LEEROY FISH Report Released Date/Time: Apr 16, 2024 11:04 AM Reporting Lab: [facility] [address] Performing Lab: [facility] [address] [place] [facility] CBC & DIFF EOSINOPHILS /100 LEUKOCYTES IN BLOOD BY AUTOMATED COUNT 2.9 0.0 - 6.0 05/17 Specimen Type: BLOOD Comment: Automated Differentia l Performed Ordering Provider: ME LEEROY FISH Report Released Date/Time: Apr 16, 2024 11:04 AM Reporting Lab: [facility] [address] Performing Lab: [facility] [address] [place] [facility] CBC & DIFF BASOPHILS/1 00 LEUKOCYTES IN BLOOD BY MANUAL COUNT 0.5 0.0 - 2.0 05/17 Specimen Type: BLOOD Comment: Automated Differentia l Performed Ordering Provider: ME LEEROY FISH Report Released Date/Time: Apr 16, 2024 11:04 AM Reporting Lab: [facility] [address] Performing Lab: [facility] [address] [place] [facility] CBC & DIFF ERYTHROCYTE DISTRIBUTIO N WIDTH [RATIO] BY AUTOMATED COUNT 15.0 11.5 - 14.5 05/17 H Specimen Type: BLOOD Comment: Automated Differentia l Performed Ordering Provider: ME LEEROY FISH Report Released Date/Time: Apr 16, 2024 11:04 AM Reporting Lab: [facility] [address] Performing Lab: [facility] [address] [place] CBC & DIFF LYMPHOCYTES [#/VOLUME] IN BLOOD BY AUTOMATED COUNT 1.9 1.0 - 4.0 05/17 Specimen Type: BLOOD Comment: Automated Differentia l Performed Ordering Provider: ME LEEROY FISH Report Released Date/Time: Apr 16, 2024 11:04 AM Reporting Lab: [facility] [address] Performing Lab: [facility] [address] [place] [facility] CBC & DIFF MONOCYTES [#/VOLUME] IN BLOOD BY AUTOMATED COUNT 0.5 0.1 - 1.0 05/17 Specimen Type: BLOOD Comment: Automated Differentia l Performed Ordering Provider: ME LEEROY FISH Report Released Date/Time: Apr 16, 2024 11:04 AM Reporting Lab: [facility] [address] Performing Lab: [facility] [address] [place] CBC & DIFF NEUTROPHILS [#/VOLUME] IN BLOOD BY AUTOMATED COUNT 6.0 2.0 - 7.7 05/17 Specimen Type: BLOOD Comment: Automated Differentia l Performed Ordering Provider: ME LEEROY FISH Report Released Date/Time: Apr 16, 2024 11:04 AM Reporting Lab: [facility] [address] Performing Lab: [facility] [address] [place] CBC & DIFF EOSINOPHILS [#/VOLUME] IN BLOOD BY AUTOMATED COUNT 0.3 0.0 - 0.5 05/17 Specimen Type: BLOOD Comment: Automated Differentia l Performed Ordering Provider: ME LEEROY FISH Report Released Date/Time: Apr 16, 2024 11:04 AM Reporting Lab: [facility] [address] Performing Lab: [facility] [address] [place] CBC & DIFF BASOPHILS [#/VOLUME] IN BLOOD BY AUTOMATED COUNT 0.0 0.0 - 0.2 05/17 Specimen Type: BLOOD Comment: Automated Differentia l Performed Ordering Provider: ME LEEROY FISH Report Released Date/Time: Apr 16, 2024 11:04 AM Reporting Lab: [facility] [address] Performing Lab: [facility] [address] [place] CBC & DIFF IG(META,MYE LO,PRO) 0.3 05/17 Specimen Type: BLOOD Comment: Automated Differentia l Performed Ordering Provider: ME LEEROY FISH Report Released Date/Time: Apr 16, 2024 11:04 AM Reporting Lab: [facility] [address] Performing Lab: [facility] [address] [facility] CBC & DIFF IMMATURE GRANULOCYTE S [PRESENCE] IN BLOOD BY AUTOMATED COUNT 0.0 0.0 - 0.1 05/17 Specimen Type: BLOOD Comment: Automated Differentia l Performed Ordering Provider: ME LEEROY FISH Report Released Date/Time: Apr 16, 2024 11:04 AM Reporting Lab: [facility] [address] Performing Lab: [facility] [address] [facility] BASIC METABOLIC PANEL+MG CREATININE [MASS/VOLUM E] IN SERUM OR PLASMA 1.2 mg/dL 0.7 - 1.2 03/22 Specimen Type: PLASMA No comment entered. Ordering Provider: ME LEEROY FISH Report Released Date/Time: Aug 21, 2022 03:48 PM Reporting Lab: [facility] [address] Performing Lab: [facility] [address] [facility] BASIC METABOLIC PANEL+MG UREA NITROGEN [MASS/VOLUM E] IN SERUM OR PLASMA 15 mg/dL 8 - 03/22 Specimen Type: PLASMA No comment entered. Ordering Provider: ME LEEROY FISH Report Released Date/Time: Aug 21, 2022 03:48 PM Reporting Lab: [facility] [phone] Performing Lab: [facility] [address] [place] [facility] BASIC METABOLIC PANEL+MG GLUCOSE [MASS/VOLUM E] IN SERUM OR PLASMA 145 mg/dL 70 - 100 03/22 H Specimen Type: PLASMA No comment entered. Ordering Provider: ME LEEROY FISH Report Released Date/Time: Aug 21, 2022 03:48 PM Reporting Lab: [facility] [address] Performing Lab: [facility] [address] [place] [facility] BASIC METABOLIC PANEL+MG SODIUM [MOLES/VOLU ME] IN SERUM OR PLASMA 138 mmol/L 136 - 145 03/22 Specimen Type: PLASMA No comment entered. Ordering Provider: ME LEEROY FISH Report Released Date/Time: Aug 21, 2022 03:48 PM Reporting Lab: [facility] [address] Performing Lab: [facility] [address] [place] [facility] BASIC METABOLIC PANEL+MG POTASSIUM [MOLES/VOLU ME] IN SERUM OR PLASMA 4.5 mmol/L 3.5 - 5.1 03/22 Specimen Type: PLASMA No comment entered. Ordering Provider: ME LEEROY FISH Report Released Date/Time: Aug 21, 2022 03:48 PM Reporting Lab: [facility] [address] Performing Lab: [facility] [address] [place] [facility] BASIC METABOLIC PANEL+MG CHLORIDE [MOLES/VOLU ME] IN SERUM OR PLASMA 101 mmol/L 98 - 107 03/22 Specimen Type: PLASMA No comment entered. Ordering Provider: ME LEEROY FISH Report Released Date/Time: Aug 21, 2022 03:48 PM Reporting Lab: [facility] [address] Performing Lab: [facility] [address] [place] [facility] BASIC METABOLIC PANEL+MG CARBON DIOXIDE, TOTAL [MOLES/VOLU ME] IN SERUM OR PLASMA 27 mmol/L 22 - 29 03/22 Specimen Type: PLASMA No comment entered. Ordering Provider: ME LEEROY FISH Report Released Date/Time: Aug 21, 2022 03:48 PM Reporting Lab: [facility] [address] Performing Lab: [facility] [address] [place] [facility] BASIC METABOLIC PANEL+MG CALCIUM [MASS/VOLUM E] IN SERUM OR PLASMA 10.0 mg/dL 8.4 - 10.2 03/22 Specimen Type: PLASMA No comment entered. Ordering Provider: ME LEEROY FISH Report Released Date/Time: Aug 21, 2022 03:48 PM Reporting Lab: [facility] [address] Performing Lab: [facility] [address] [facility] BASIC METABOLIC PANEL+MG MAGNESIUM [MASS/VOLUM E] IN SERUM OR PLASMA 1.9 mg/dL 1.6 - 2.6 03/22 Specimen Type: PLASMA No comment entered. Ordering Provider: ME LEEROY FISH Report Released Date/Time: Aug 21, 2022 03:48 PM Reporting Lab: [facility] [address] Performing Lab: [facility] [address] [facility] BASIC METABOLIC PANEL+MG ANION GAP IN SERUM OR PLASMA 10 mmol/L 5 - 15 03/22 Specimen Type: PLASMA No comment entered. Ordering Provider: ME LEEROY FISH Report Released Date/Time: Aug 21, 2022 03:48 PM Reporting Lab: [facility] [address] Performing Lab: [facility] [address] [facility] BASIC METABOLIC PANEL+MG GLOMERULAR FILTRATION RATE/1.73 SQ M.PREDICTED [VOLUME RATE/AREA] IN SERUM, PLASMA OR BLOOD BY CREATININE- BASED FORMULA (CKD-EPI 2020) 63 60 03/22 Specimen Type: PLASMA No comment entered. Ordering Provider: ME LEEROY FISH Report Released Date/Time: Aug 21, 2022 03:48 PM Reporting Lab: [facility] [id number] Performing Lab: [facility] [address] [facility] HEMOGLOBI N A1C HEMOGLOBIN A1C/HEMOGLO BIN.TOTAL [...] 2022 03:48 PM Reporting Lab: [facility] [phone] Performing Lab: [facility] [address] [facility] HEMOGLOBI N A1C HEMOGLOBIN A1C/HEMOGLO BIN.TOTAL [...] 2021 03:46 PM Reporting Lab: [facility] [address] Performing Lab: [facility] [address] [facility] BASIC METABOLIC PANEL+MG CREATININE [MASS/VOLUM E] IN SERUM OR PLASMA 0.9 mg/dL 0.7 - 1.2 08/18 Specimen Type: PLASMA No comment entered. Ordering Provider: ME LEEROY FISH Report Released Date/Time: December 22, 2021 03:46 PM Reporting Lab: [facility] [address] Performing Lab: [facility] [address] [place] [facility] BASIC METABOLIC PANEL+MG UREA NITROGEN [MASS/VOLUM E] IN SERUM OR PLASMA 12 mg/dL 8 - 26 08/18 Specimen Type: PLASMA No comment entered. Ordering Provider: ME LEEROY FISH Report Released Date/Time: December 22, 2021 03:46 PM Reporting Lab: [facility] [address] Performing Lab: [facility] [address] [place] [facility] BASIC METABOLIC PANEL+MG GLUCOSE [MASS/VOLUM E] IN SERUM OR PLASMA 184 mg/dL 70 - 100 08/18 H Specimen Type: PLASMA No comment entered. Ordering Provider: ME LEEROY FISH Report Released Date/Time: December 22, 2021 03:46 PM Reporting Lab: [facility] [address] Performing Lab: [facility] [address] [place] [facility] BASIC METABOLIC PANEL+MG SODIUM [MOLES/VOLU ME] IN SERUM OR PLASMA 137 mmol/L 136 - 145 08/18 Specimen Type: PLASMA No comment entered. Ordering Provider: ME LEEROY FISH Report Released Date/Time: December 22, 2021 03:46 PM Reporting Lab: [facility] [address] Performing Lab: [facility] [address] [place] [facility] BASIC METABOLIC PANEL+MG POTASSIUM [MOLES/VOLU ME] IN SERUM OR PLASMA 3.9 mmol/L 3.5 - 5.1 08/18 Specimen Type: PLASMA No comment entered. Ordering Provider: ME LEEROY FISH Report Released Date/Time: December 22, 2021 03:46 PM Reporting Lab: [facility] [address] Performing Lab: [facility] [address] [place] [facility] BASIC METABOLIC PANEL+MG CHLORIDE [MOLES/VOLU ME] IN SERUM OR PLASMA 102 mmol/L 98 - 107 08/18 Specimen Type: PLASMA No comment entered. Ordering Provider: ME LEEROY FISH Report Released Date/Time: December 22, 2021 03:46 PM Reporting Lab: [facility] [address] Performing Lab: [facility] [address] [place] [facility] BASIC METABOLIC PANEL+MG CARBON DIOXIDE, TOTAL [MOLES/VOLU ME] IN SERUM OR PLASMA 26 mmol/L 22 - 29 08/18 Specimen Type: PLASMA No comment entered. Ordering Provider: ME LEEROY FISH Report Released Date/Time: December 22, 2021 03:46 PM Reporting Lab: [facility] [address] Performing Lab: [facility] [address] [place] [facility] BASIC METABOLIC PANEL+MG CALCIUM [MASS/VOLUM E] IN SERUM OR PLASMA 9.4 mg/dL 8.4 - 10.2 08/18 Specimen Type: PLASMA No comment entered. Ordering Provider: ME LEEROY FISH Report Released Date/Time: December 22, 2021 03:46 PM Reporting Lab: [facility] [address] Performing Lab: [facility] [address] [place] [facility] BASIC METABOLIC PANEL+MG MAGNESIUM [MASS/VOLUM E] IN SERUM OR PLASMA 1.6 mg/dL 1.6 - 2.6 08/18 Specimen Type: PLASMA No comment entered. Ordering Provider: ME LEEROY FISH Report Released Date/Time: December 22, 2021 03:46 PM Reporting Lab: [facility] [address] Performing Lab: [facility] [address] [place] [facility] BASIC METABOLIC PANEL+MG ANION GAP IN SERUM OR PLASMA 9 mmol/L 5 - 15 08/18 Specimen Type: PLASMA No comment entered. Ordering Provider: ME LEEROY FISH Report Released Date/Time: December 22, 2021 03:46 PM Reporting Lab: [facility] [address] Performing Lab: [facility] [address] [place] [facility] BASIC METABOLIC PANEL+MG GLOMERULAR FILTRATION RATE/1.73 SQ M.PREDICTED [VOLUME RATE/AREA] IN SERUM, PLASMA OR BLOOD BY CREATININE- BASED FORMULA (CKD-EPI) 89 60 08/18 Specimen Type: PLASMA No comment entered. Ordering Provider: ME LEEROY FISH Report Released Date/Time: December 22, 2021 03:46 PM Reporting Lab: [facility] [address] Performing Lab: [facility] [address] [facility] Vital Signs Combined list of inpatient and outpatient Vital Signs from Department of [facility] and [facility], ranging from 12 months to all on record, depending upon the facility. Vital Sign Value Date Comments Source SYSTOLIC BLOOD PRESSURE 123 05/17/2024 14:50:52 [facility] DIASTOLIC BLOOD PRESSURE 79 05/17/2024 14:50:52 [facility] PULSE OXIMETRY 95 05/17/2024 14:50:52 [facility] WE[facility] 240.8 05/17/2024 14:50:52 [facility] BMI 35kg/m2 05/17/2024 14:50:52 [facility] PAIN 0 05/17/2024 14:50:52 [facility] HEIGHT 70 05/17/2024 14:50:52 [facility] TEMPERATURE 97.8 05/17/2024 14:50:52 [facility] PULSE 113 05/17/2024 14:50:52 [facility] Encounters Combined list of: 1) 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 2) Encounters from the Department of [facility] facilities going back up to 280 months. Location Location Details Encounter Type Encounter Number Reason For Visit Attending Provider ADM Date DC Date Status Disposition Source [facility] Outpatient Encounter [id number] 03/10 [facility] PRO PHONE CALL 11-20 MIN [id number] Diagnos is: ICD-10- CM E11.42 Type 2 diabete s mellitu s with diabeti c polyneu ropathy
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
NAIDL,KARI 04/18 [place] [facility] [place] [facility] PRO PHONE CALL 21-30 MIN [id number] Diagnos is: ICD-10- CM E11.42 Type 2 diabete s mellitu s with diabeti c polyneu ropathy
NAIDL,KARI 07/11 [place] [facility] [place] [facility] PHARM ADDL 15 MIN [id number] Diagnos is: ICD-10- CM E11.42 Type 2 diabete s mellitu s with diabeti c polyneu ropathy
NAIDL,AKRI 08/29 [place] [facility] [place] [facility] MTMS BY PHARM EST 15 MIN [id number] Diagnos is: ICD-10- CM E11.42 Type 2 diabete s mellitu s with diabeti c polyneu ropathy
AWKER,SOLEDAD L 10/10 [place] [facility] [place] [facility] Outpatient Encounter [id number] 10/16 [place] [facility] [place] [facility] MTMS BY PHARM EST 15 MIN [id number] Diagnos is: ICD-10- CM E11.621 Type 2 diabete s mellitu s with foot ulcer<b r/> NAIDL,KARI 11/06 [place] [facility] [place] [facility] MTMS BY PHARM ADDL 15 MIN [id number] Diagnos is: ICD-10- CM E11.42 Type 2 diabete s mellitu s with diabeti c polyneu ropathy
NAIDL,KARI 11/22 [place] [facility] [place] [facility] MTMS BY PHARM ADDL 15 MIN [id number] Diagnos is: ICD-10- CM E11.42 Type 2 diabete s mellitu s with diabeti c polyneu ropathy
NAIDL,KARI 01/17 [place] [facility] [place] [facility] Outpatient Encounter [id number] Diagnos is: ICD-10- CM E11.42 Type 2 diabete s mellitu s with diabeti c polyneu ropathy
DAWNA ,MILAGRO 01/18 [place] [facility] [place] [facility] QNHP OL DIG ASSMT&MGMT 5-10 [id number] Diagnos is: ICD-10- CM E11.42 Type 2 diabete s mellitu s with diabeti c polyneu ropathy
MOE CHOWDHURY 01/18 [place] [facility] [place] [facility] MTMS BY PHARM EST 15 MIN [id number] Diagnos is: ICD-10- CM E11.42 Type 2 diabete s mellitu s with diabeti c polyneu ropathy
NAIDJignesh,KARI 02/21 [place] [facility] [place] [facility] Outpatient Encounter [id number] RORY CAPPS 02/26 [place] [facility] [place] [facility] Outpatient Encounter [id number] 03/14 [place] [facility] [place] [facility] QNHP OL DIG ASSMT&MGMT 11-20 [id number] Diagnos is: ICD-10- CM E11.42 Type 2 diabete s mellitu s with diabeti c polyneu ropathy
NAIDL,KARI 03/27 [place] [facility] [place] [facility] Outpatient Encounter [id number] 04/16 [place] [facility] [place] [facility] MTMS BY PHARM EST 15 MIN [id number] Diagnos is: ICD-10- CM E11.42 Type 2 diabete s mellitu s with diabeti c polyneu ropathy
NAIDL,KARI 04/26 [place] [facility] [place] [facility] OFFICE O/P EST MOD 30 MIN [id number] Diagnos is: ICD-10- CM E11.42 Type 2 diabete s mellitu s with diabeti c polyneu ropathy
Rhiannon FISH 05/17 [facility] [place] [facility] MTMS BY PHARM EST 15 MIN [id number] Diagnos is: ICD-10- CM E11.42 Type 2 diabete s mellitu s with diabeti c polyneu ropathy
NAIDL,KARI 06/11 [place] [facility] [place] [facility] Out[facility] Encounter [id number] 07/01 [place] [facility] [place] [facility] Out[facility] Encounter [id number] 07/01 [facility] [place] [facility] MTMS BY PHARM EST 15 MIN [id number] Diagnos is: ICD-10- CM E11.42 Type 2 diabete s mellitu s with diabeti c polyneu ropathy
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 Social History Type Response Date Comment [facility] e Tobacco smoking status [facility]-TOBACCO FOR[facility] History of tobacco use MS-TOBACCO QUIT 1 5 YRS OR MORE 05/17/2024 [facility] History of tobacco use MS-TOBACCO FORMER USER 08/18/2022 [facility] History of tobacco use MS-TOBACCO QUIT 1 5 YRS OR MORE 05/03/2021 [facility] History of tobacco use VA-TOBACCO FORMER USER 04/21/2020 [facility] History of tobacco use FORMER TOBACCO US E >1Y <7Y 04/03/2018 [facility] History of tobacco use CURRENT TOBACCO USER 03/09/2007 [facility] Plan of Care List of future care activities from [facility] facilities. Additional future care activities may be listed in the Assessment and Plan section. Date/Time Care Activity Care Activity Detail Facili ty 08/14/2024 AMBULATORY - NONE AMBULATORY - NONE [facility] Advance Directives List of completed, amended, or rescinded Advance Directives on record at [facility] facilities. An actual copy of the Directive is not included. Date Advance Directive Provider Source 06/22/2021 ADVANCE DIRECTIVE DISCUSSION ALLYSON GRAF [facility] 06/22/2021 ADVANCE DIRECTIVE ALLYSON GRAF [facility] 03/09/2007 [facility]
--- OUTSIDE RECORDS SUMMARY | 2024-07-18 07:27 | XMS_ITS | Data Portability ---
Author Organization [place] - [facility], [facility] Address [address] [place] [address] Care Team Providers Care Network Support Specialist Name Role Phone POST, SUE Primary Care [...] of Hospitaliza tion for UTI. 2022 023 [facility], [address], [address], [place], [address], 3 10:05:08 urinalysis, dipstick 2022 023 [facility], [address], [place], [address], 12:03:37 Referral None recorded. Procedures None recorded. Surgeries None recorded. Imaging None recorded. Medication Orders None recorded. Patient TargetsNo targets recorded. Patient Instructions Encounter Date Encounter Id Patient Instructions Last Modified By Organization Details Last Modified Time 09/23/2022 [id number] Patient to call clinic with questions or concerns. Advised patient to increase water intake and to keep 4 week appointment for next catheter change. [email or web address] Not available 09/23/2022 13:22:30 11/04/2022 [id number] Pt has F/U appt with Dr Barrientos in [place] on 11/11/2022 @ 3:10pm to review UDS. [...] ate 3) Sensi tivit y Priscila sis [place] 3 ----- ----- ----- ----- ----- [...] s Desk [facility]. S= Susce ptibl e;I= [...] revie w. Not Available [facility] [address], [place], [address], 11/07/2022 10:05:08 11/05/19 23 11/04/2022 urina lysis , dipst ick Color-Status Straw Not Available [facility] [address], [place], [address], 11/04/2022 12:02:10 11/05/19 23 11/04/2022 urina lysis , dipst ick Clarity-Stat us Slight ly Cloudy Not Available [facility] [address], [place], [address], 11/04/2022 12:02:10 11/05/19 23 11/04/2022 urina lysis , dipst ick Glucose-Stat us 500 Not Available [facility] [address], [place], [address], 11/04/2022 12:02:10 11/05/19 23 11/04/2022 urina lysis , dipst ick Bilirubin-St atus Negati ve Not Available [facility] [address], [place], [address], 11/04/2022 12:02:10 11/05/19 23 11/04/2022 urina lysis , dipst ick Ketones-Stat us Negati ve Not Available [facility] [address], [place], [address], 11/04/2022 12:02:10 11/05/19 23 11/04/2022 urina lysis , dipst ick Sp Whitmore-Stat us 1.015 Not Available [facility] [address], [place], [address], 11/04/2022 12:02:10 11/05/19 23 11/04/2022 urina lysis , dipst ick pH-Status 6.5 Not Available [facility] [address], [place], [address], 11/04/2022 12:02:10 11/05/19 23 11/04/2022 urina lysis , dipst ick Protein-Stat us 5.0 Not Available [facility] [address], [place], [address], 11/04/2022 12:02:10 11/05/19 23 11/04/2022 urina lysis , dipst ick Urobilinogen -Status 0.2 Not Available [facility] [address], [place], [address], 11/04/2022 12:02:10 11/05/19 23 11/04/2022 urina lysis , dipst ick Nitrates-Sta tus positi ve Not Available [facility] [address], [place], [address], 11/04/2022 12:02:10 11/05/19 23 11/04/2022 urina lysis , dipst ick Blood-Status Large Not Available [facility] [address], [place], [address], 11/04/2022 12:02:10 11/05/19 23 11/04/2022 urina lysis , dipst ick Leuko-Status Large Not Available [facility] [address], [place], [address], 11/04/2022 12:02:10 11/05/19 23 11/04/2022 urina lysis , dipst ick Specimen Type Cathet erized Not Available [facility] [address], [place], [address], 11/04/2022 12:02:10 11/05/19 23 11/04/2022 urina lysis , dipst ick Performed by LKchuckve n1 Not Available [facility] [address], [place], [address], 11/04/2022 12:02:10 Result Notes None recorded. Problems Name Problem SNOMED Code Status Onset Date Resolution Date Notes Provider Name and Address Organization Details Recorded Time Retention of urine 709583652 [facility] 13:15:43 Problem Notes None recorded. Procedures Surgical History Date Name Laterality Status Provider Name and Address Organization Details Recorded Time 3 Fill and Pull/Voiding Trial/TOV completed Jenna [facility] 12/09/2022 11:59:45 3 Urodynamic Studies completed Deyanira Woods [facility] 11/04/2022 12:19:38 3 Gordon Catheter Insertion completed Deyanira Woods [facility] 11/04/2022 12:21:21 3 Urethral Catheter Change completed Jenna Harris [facility] 10/21/2022 13:18:32 3 Urethral Catheter Change completed Nenita Flores [facility] 09/23/2022 13:21:12 3 Gordon Catheter Insertion completed Roula Beltran [facility] 08/03/2022 11:16:51 3 Fill and Pull/Voiding Trial/TOV completed Roula Beltran [facility] 08/03/2022 11:16:41 2 Cystoscopy- male completed Kristopher Barrientos MD, PHD [address] [place] [address],[address], [address], [facility] 06/30/2022 09:37:30 2 Urethral Catheter Change completed Carlos Mix [facility] 06/30/2022 09:49:15 2 Gordon Catheter Insertion completed Juanito Josue [facility] 06/16/2022 15:03:22 2 Fill and Pull/Voiding Trial/TOV completed Roula Tony PA-C [address] [place] [address],[address], [address], [facility] 06/16/2022 18:06:50 Cataract Surgery completed Juanito Josue [facility] 06/16/2022 12:30:25 Orthopedic Surgery completed Еленаarminda Josue [facility] 06/16/2022 12:30:33 Imaging Results None [...] Updated DateTime 09/23/2022 180.34 cm Nenitaaranza Flores [facility] 09/23/2022 13:17:39 Date Recorded Body height Body mass index (BMI) Body weight Provider Name and Address Organization Details Last Updated DateTime 11/11/2022 180.34 cm 30 kg/m2 97895.36 g Amanda Molina [facility] 11/11/2022 16:25:51 Social History Question Answer Notes LastModified by Organizat ion Details LastModified Time Tobacco Smoking Status Former Smoker Juanito song [facility] 06/16/2022 12:29:38 What Is Your [...] Diagnosis/Indication Diagnosis SNOMED-CT Code Diagnosis ICD10 Code [id number] Roula Tony PA-C [facility] [address] [place] [address] 06/16/2022 11:30:09 06/20/2022 08:36:10 Retention of urine 669086635 R33.9 Benign pro static hyperplasia with outflow obstruction 174870959 N40.1 [id number] Kristopher green MD, PHD [facility] [address] [place] [address] 06/30/2022 08:46:23 07/04/2022 11:29:58 Retention of urine 928310609 R33.9 Benign pro static hyperplasia with outflow obstruction 850604496 N40.1 [id number] Roula Ruby [facility] [address] [place] [address] 08/03/2022 10:27:16 08/05/2022 11:54:14 Retention of urine 279595177 R33.9 [id number] Nenitaaranza Flores [facility] [address] [place] [address] 09/23/2022 10:30:04 09/26/2022 14:37:37 [id number] Kristopher green MD, PHD [facility] [address] [place] [address] 11/04/2022 10:41:00 11/10/2022 13:37:32 Benign prostatic hyperplasia with outflow obstruction 629589047 N40.1 Retention of urine 20060 4002 R33.9 Microscopic hematuria 19 5386550 R31.29 [id number] Jenna Harris [facility] [address] [place] [address] 10/21/2022 11:27:55 10/24/2022 11:49:09 Retention of urine 935802638 R33.9 [id number] Kristopher green MD, PHD [facility] [address] [place] [address] 11/11/2022 16:25:28 11/17/2022 17:02:38 Retention of urine 764299470 R33.9 Benign pro static hyperplasia with outflow obstruction 128038260 N40.1 [id number] Jenna Harris [facility] [address] [place] [address] 12/09/2022 10:56:01 12/12/2022 15:10:14 Retention of urine 630636522 R33.9 Health Concerns Section Related Observation LastModified by Organization Detai ls LastModified Time None Recorded Concern Status LastModified by Organization Details LastModified Time None Recorded Advance Directives Directive None Recorded Payers Encounter Date Sequence Insurance Name Policy Number Policy Molina Covered Member ID Molina Member ID Guarantor Name 09/23/2022 1 [place] [employer] Tom B Renaux [id number] Tom B Renaux 09/23/2022 2 [place] [id number] Tom B Renaux [id number] Tom B Renaux 10/21/2022 1 [place] [employer] Tom B Renaux [id number] Tom B Renaux 10/21/2022 2 [place] [id number] Tom B Renaux [id number] Tom B Renaux 11/04/2022 1 [place] [employer] Tom B Renaux [id number] Tom B Renaux 11/04/2022 2 [place] [id number] Tom B Renaux [id number] Tom B Renaux 11/11/2022 1 [place] [employer] Tom B Renaux [id number] Tom B Renaux 11/11/2022 2 [place] [id number] Tom B Renaux [id number] Tom B Renaux 12/09/2022 1 [place] [facility] [employer] Tom B Renaux [id number] Tom B Renaux 12/09/2022 2 [place] [id number] Tom B Renaux [id number] Tom B Renaux Notes Date Note Type [...] weeks for next catheter change. Nenita song [place] - [facility] 09/23/2022 13:22:32 10/21/2022 text/html Pt here for cath eter change OLMAN Chappell - [facility] 10/21/2022 13:21:54 11/11/2022 text/html 77M with urinary retention. Hospitalization at [facility] from 04/30-05/30 for MSSA bacteremia with [...] coordinate their care. Kristopher Barrientos MD, PHD [address] [place] [address],[address], [place], [address], [facility] 11/11/2022 17:49:57 12/09/2022 text/html Pt of Dr PALMER, her e for TOV recommended at 11/11/22 visit Jenna song [facility] 12/09/2022 12:43:22
[2024-07-18 12:52] VITALS: BP 131/85; PULSE 96; RESP 16; TEMP 36.3; O2SAT 95
[2024-07-18] MEDS: SODIUM CHLORIDE 0.9 % (FLUSH) 10 ML SYRINGE IVF (13:01)
[2024-07-18] MEDS: cefTRIAXone 2 GM in 0.9 % SODIUM CHLORIDE Mini-bag 100 ML IVPB (13:01)
== END 2025-01-06 23:59 | disposition home or self-care (01) ==
LOC: CCIC 13:00
PROVIDERS: Visit Provider Clinical Nurse Specialist
DX: E11.621 Type 2 diabetes mellitus with foot ulcer (principal); L97.512 Non-pressure chronic ulcer of other part of right foot with fat layer exposed
CPT/HCPCS: 96365; G0463; J0696

== ENCOUNTER 2024-07-22 10:05 | Outpatient (CLI) | payer MEDICARE, BC, SELFPAY ==
--- OUTSIDE RECORDS SUMMARY | 2024-07-16 13:34 | XMS_ITS | Continuity of Care Document ---
Author Name [employer] Organization [employer] Care Team Providers Care Electronic Test Technician Name Role Phone [employer] Unavailable Unavailable Problems Combined list of problems from Department of Defense and Veterans Affairs facilities. It does not include entries that were removed or entered in error. Problem Status Onset Date Problem Type Date of Resolution Comments Source Exposure to potentially hazardous substance ([facility] [id number]) Active 10/05/19 24 Condition Oct 05, 2023 Entered By: VIJI VIVAS Comment: [facility] Documentation Initiative [facility] Depressive Disorder NOS * (ICD-9-CM 311./300.4) Active Condition [facility] Diabetes mellitus (SNOMED CT 30325388) Active Condition [facility] Diabetic neuropathy Active Condition [facility] Foot Pain (ICD-9-CM 719.47) Active Condition Aug 26 10 Entered By: MALINA WORLEY Comment: left 5th metatarsal fracture [facility] History of amputation of lesser toe Active Condition [facility] Hyperlipidemia (SNOMED CT 79228182) Active Condition [facility] Hyperuricemia Active Condition [facility] Osteopenia Active Condition [facility] Other Iatrogenic Hypotension Active Condition [facility] Personal History of Alcoholism (ICD-9-CM V11.3) Active Condition [facility] Tobacco user (SNOMED CT 178975041) Active Condition [facility] Diagnosis: ICD-10-CM E11.42 Type 2 diabetes mellitus with diabetic polyneuropathy Active Diagnosis [facility] Diagnosis: ICD-10-CM E11.621 Type 2 diabetes mellitus with foot ulcer Active Diagnosis [facility] Medications Combined list [...] ORAL ACTIVE FISH, CHARLEE Robinson [address] [facility] ASPIRIN 81MG TAB,EC TAKE ONE TABLET BY MOUTH EVERY DAY ORAL ACTIVE JEFF CHOUDHARY ER A [address] [facility] ATORVASTATI N CA 40MG TAB TAKE ONE TABLET BY MOUTH EVERY DAY FOR CHOLESTE ROL ORAL ACTIVE 04/18/2025 [id number] NAIDL,TOD D [address] [facility] ATORVASTATI N CA 40MG TAB TAKE ONE TABLET BY MOUTH EVERY DAY FOR CHOLESTE ROL ORAL DISCONT INUED 04/11/2024 [id number] FISH, CHARLEE Robinson [address] [facility] CHOLECALCIF QUINTIN TAB TAKE 5000 UNITS BY MOUTH EVERY DAY ORAL ACTIVE FISH CHARLEE Robinson [address] [facility] COENZYME Q10 CAP/TAB TAKE 1 CAPSULE BY MOUTH EVERY DAY ORAL ACTIVE FISH, CHARLEE Robinson 2022 [facility] CYANOCOBALA MIN 1000MCG TAB TAKE ONE TABLET BY MOUTH EVERY DAY ORAL ACTIVE NAIDL,TOD D 2021 [facility] DICLOFENAC NA 1% GEL,TOP APPLY 4 GRAMS TOPICALL Y FOUR TIMES A DAY NEEDED FOR JOINT PAIN TOPICA L HOLD 05/18/2025 [id number] FISH, CHARLEE Robinson [address] [facility] FINASTERIDE 5MG TAB TAKE ONE TABLET BY MOUTH EVERY DAY FOR PROSTATE ORAL ACTIVE 04/18/2025 [id number] FISH, CHARLEE A [address] [facility] FINASTERIDE 5MG TAB TAKE ONE TABLET BY MOUTH EVERY DAY FOR PROSTATE ORAL DISCONT INUED 04/11/2024 [id number] FISH, CHARLEE A [address] [facility] FISH OIL 1000MG (500MG DHA/EPA) CAP,ORAL TAKE 1 CAPSULE BY MOUTH TWICE A DAY ORAL ACTIVE JEFF CHOUDHARY ER A 2006 [facility] INSULIN,GLA RGINE-YFGN 100UNIT/ML INJ PEN,3ML INJECT 24 UNITS UNDER THE SKIN EVERY MORNING FOR DIABETES SUBCUT ANEOUS SUSPEND ED 04/27/2025 [id number] NAIDL,TOD D [address] [facility] INSULIN,GLA RGINE-YFGN 100UNIT/ML INJ PEN,3ML INJECT 24 UNITS UNDER THE SKIN EVERY EVENING FOR DIABETES SUBCUT ANEOUS DISCONT INUED (EDIT) 04/17/2025 [id number] 4 NAIDL,TOD D [address] [facility] INSULIN,GLA RGINE-YFGN 100UNIT/ML INJ PEN,3ML INJECT 24 UNITS UNDER THE SKIN EVERY EVENING FOR DIABETES SUBCUT ANEOUS DISCONT INUED 08/29/2024 [id number] NAIDL,TOD D [address] [facility] INSULIN,GLA RGINE-YFGN 100UNIT/ML INJ PEN,3ML INJECT 22 UNITS UNDER THE SKIN AT BEDTIME FOR DIABETES SUBCUT ANEOUS DISCONT INUED (EDIT) 01/07/2024 [id number] NAIDL,TOD D [address] [facility] MAGNESIUM OXIDE 400MG TAB TAKE ONE TABLET BY MOUTH EVERY DAY ORAL ACTIVE CHARLEE FISH A [address] [facility] METFORMIN HCL 1000MG TAB TAKE ONE TABLET BY MOUTH TWICE A DAY FOR DIABETES ORAL ACTIVE 06/26/2025 [id number] CHARLEE FISH A [address] [facility] METFORMIN HCL 1000MG TAB TAKE ONE TABLET BY MOUTH TWICE A DAY FOR DIABETES ORAL DISCONT INUED 07/16/2024 [id number] 4 NAIDL,TOD D [address] [facility] METFORMIN HCL 1000MG TAB TAKE ONE TABLET BY MOUTH TWICE A DAY FOR DIABETES ORAL DISCONT INUED 04/11/2024 [id number] 4 CHARLEE FISH A [address] [facility] OMEPRAZOLE 20MG CAP,EC TAKE ONE CAPSULE BY MOUTH EVERY DAY ON AN EMPTY STOMACH, AT LEAST 30 MINUTES PRIOR TO A MEAL FOR GERD ORAL ACTIVE 05/18/2025 [id number] 4 ABE CHARLEE A 2023 90 [facility] OMEPRAZOLE 20MG CAP,EC TAKE ONE CAPSULE BY MOUTH EVERY DAY ON AN EMPTY STOMACH, AT LEAST 30 MINUTES PRIOR TO A MEAL FOR GERD ORAL DISCONT INUED 03/22/2024 [id number] CHARLEE FISH 2022 90 [facility] SEMAGLUTIDE 1MG/0.75ML INJ,SOLN,PE N,3ML INJECT 1MG UNDER THE SKIN EVERY WEEK FOR DIABETES SUBCUT ANEOUS DISCONT INUED 11/07/2024 [id number] 4 NAIDL,TOD D 2023 1 [facility] SEMAGLUTIDE 1MG/0.75ML INJ,SOLN,PE N,3ML INJECT 1MG UNDER THE SKIN EVERY WEEK FOR DIABETES SUBCUT ANEOUS DISCONT INUED 11/08/2023 [id number] NAIDL,TOD D 2022 1 [facility] SEMAGLUTIDE 2MG/0.75ML INJ,SOLN,PE N,3ML INJECT 2MG UNDER THE SKIN ONCE WEEKLY FOR DIABETES SUBCUT ANEOUS ACTIVE 05/18/2025 [id number] 4 CHARLEE FISH 2023 1 [facility] TAMSULOSIN HCL 0.4MG CAP TAKE ONE CAPSULE BY MOUTH EVERY EVENING ORAL ACTIVE 04/18/2025 [id number] 4 CHARLEE FISH 2023 30 [facility] TAMSULOSIN HCL 0.4MG CAP TAKE ONE CAPSULE BY MOUTH EVERY EVENING ORAL DISCONT INUED 04/13/2024 [id number] 4 CHARLEE FISH 2022 30 [facility] TAMSULOSIN HCL 0.4MG CAP TAKE ONE CAPSULE BY MOUTH EVERY EVENING ORAL DISCONT INUED 04/11/2024 [id number] 3 CHARLEE FISH 2022 90 [facility] TURMERIC CAP/TAB TAKE 500 MG BY MOUTH TWICE A DAY ORAL ACTIVE MATTY POWERS P 2018 [facility] Allergies, Adverse Reactions, Alerts Combined list of allergies from Department of Defense and Veterans Affairs facilities. It does not include entries that were removed or entered in error. Substance Category Reaction Severity Reaction type Status Date Reported Comments Source VANCOMYCIN Propensity to adverse reactions to drug (finding) [place] active 8 [facility] Immunizations Combined list of available immunizations from the Department of Defense and Veterans Affairs facilities. Immunization Series Date Given Administered By Site Reaction Lot Number CVX Code Drug Signal Person Status Comments Source COVID-19 (Flash Valet), MRNA, LNP-S, PF, JOSE-SUCROSE, 30 MCG/0.3 ML (AGES 12+ YEARS) 1 2023 TREVON GRIJALVA LEFT DELTO ID [id number] [facility] INFLUENZA, HIGH-DOSE, TRIVALENT, PF 2023 OLIVIA GRIJALVAEEN LEFT DELTO ID [id number] A [address] [facility] ZOSTER RECOMBINANT [address] [facility] INFLUENZA, INJECTABLE, QUADRIVALENT, PRESERVATIVE FREE [address] [facility] ZOSTER RECOMBINANT 1 [address] [facility] INFLUENZA, HIGH-DOSE, QUADRIVALENT [address] [facility] INFLUENZA, SEASONAL, INJECTABLE, PRESERVATIVE FREE [address] [facility] INFLUENZA, INJECTABLE, QUADRIVALENT, PRESERVATIVE FREE [address] [facility] INFLUENZA, INJECTABLE, QUADRIVALENT, PRESERVATIVE FREE [address] [facility] TDAP 2015 115 complet ed [place] [facility] PNEUMOCOCCAL CONJUGATE PCV [address] [facility] TD (ADULT), 5 LF TETANUS TOXOID, PRESERVATIVE FREE, ADSORBED [address] [facility] INFLUENZA, INJECTABLE, QUADRIVALENT, PRESERVATIVE FREE [address] [facility] PNEUMOCOCCAL POLYSACCHARID E PPV23 2010 33 complet [facility] INFLUENZA, UNSPECIFIED FORMULATION 2006 88 complet [facility] PNEUMOCOCCAL, UNSPECIFIED FORMULATION 2006 109 complet [facility] TD(ADULT) UNSPECIFIED FORMULATION 2006 NONE 139 complet [facility] TETANUS TOXOID, UNSPECIFIED FORMULATION 2006 NONE 112 complet [facility] Results Combined list of [...] Apr 16, 2024 11:04 AM Reporting Lab: [facility] [address] Performing Lab: [facility] [address] [facility] BASIC METABOLIC PANEL+MG CREATININE [MASS/VOLUM E] IN SERUM OR PLASMA 1.2 mg/dL 0.7 - 1.2 05/17 Specimen Type: PLASMA No comment entered. Ordering Provider: ME LEEROY FISH Report Released Date/Time: Apr 16, 2024 11:04 AM Reporting Lab: [facility] [address] Performing Lab: [facility] [address] [facility] BASIC METABOLIC PANEL+MG UREA NITROGEN [MASS/VOLUM E] IN SERUM OR PLASMA 22 mg/dL 8 - 26 05/17 Specimen Type: PLASMA No comment entered. Ordering Provider: ME LEEROY FISH Report Released Date/Time: Apr 16, 2024 11:04 AM Reporting Lab: [facility] [address] Performing Lab: [facility] [address] [place] [facility] BASIC METABOLIC PANEL+MG GLUCOSE [MASS/VOLUM E] IN SERUM OR PLASMA 187 mg/dL 70 - 100 05/17 H Specimen Type: PLASMA No comment entered. Ordering Provider: ME LEEROY FISH Report Released Date/Time: Apr 16, 2024 11:04 AM Reporting Lab: [facility] [address] Performing Lab: [facility] [address] [place] [facility] BASIC METABOLIC PANEL+MG SODIUM [MOLES/VOLU ME] IN SERUM OR PLASMA 138 mmol/L 136 - 145 05/17 Specimen Type: PLASMA No comment entered. Ordering Provider: ME LEEROY FISH Report Released Date/Time: Apr 16, 2024 11:04 AM Reporting Lab: [facility] [address] Performing Lab: [facility] [address] [place] [facility] BASIC METABOLIC PANEL+MG POTASSIUM [MOLES/VOLU ME] IN SERUM OR PLASMA 4.5 mmol/L 3.5 - 5.1 05/17 Specimen Type: PLASMA No comment entered. Ordering Provider: ME LEEROY FISH Report Released Date/Time: Apr 16, 2024 11:04 AM Reporting Lab: [facility] [address] Performing Lab: [facility] [address] [place] [facility] BASIC METABOLIC PANEL+MG CHLORIDE [MOLES/VOLU ME] IN SERUM OR PLASMA 102 mmol/L 98 - 107 05/17 Specimen Type: PLASMA No comment entered. Ordering Provider: ME LEEROY FISH Report Released Date/Time: Apr 16, 2024 11:04 AM Reporting Lab: [facility] [address] Performing Lab: [facility] [address] [place] [facility] BASIC METABOLIC PANEL+MG CARBON DIOXIDE, TOTAL [MOLES/VOLU ME] IN SERUM OR PLASMA 25 mmol/L 22 - 29 05/17 Specimen Type: PLASMA No comment entered. Ordering Provider: ME LEEROY FISH Report Released Date/Time: Apr 16, 2024 11:04 AM Reporting Lab: [facility] [address] Performing Lab: [facility] [address] [place] [facility] BASIC METABOLIC PANEL+MG CALCIUM [MASS/VOLUM E] IN SERUM OR PLASMA 9.7 mg/dL 8.4 - 10.2 05/17 Specimen Type: PLASMA No comment entered. Ordering Provider: ME LEEROY FISH Report Released Date/Time: Apr 16, 2024 11:04 AM Reporting Lab: [facility] [address] Performing Lab: [facility] [address] [place] [facility] BASIC METABOLIC PANEL+MG MAGNESIUM [MASS/VOLUM E] IN SERUM OR PLASMA 1.7 mg/dL 1.6 - 2.6 05/17 Specimen Type: PLASMA No comment entered. Ordering Provider: ME LEEROY FISH Report Released Date/Time: Apr 16, 2024 11:04 AM Reporting Lab: [facility] [address] Performing Lab: [facility] [address] [place] [facility] BASIC METABOLIC PANEL+MG ANION GAP IN SERUM OR PLASMA 11 mmol/L 5 - 15 05/17 Specimen Type: PLASMA No comment entered. Ordering Provider: ME LEEROY FISH Report Released Date/Time: Apr 16, 2024 11:04 AM Reporting Lab: [facility] [address] Performing Lab: [facility] [address] [place] [facility] BASIC METABOLIC PANEL+MG GLOMERULAR FILTRATION RATE/1.73 SQ M.PREDICTED [VOLUME RATE/AREA] IN SERUM, PLASMA OR BLOOD BY CREATININE- BASED FORMULA (CKD-EPI 2020) 62 60 05/17 Specimen Type: PLASMA No comment entered. Ordering Provider: ME LEEROY FISH Report Released Date/Time: Apr 16, 2024 11:04 AM Reporting Lab: [facility] [address] Performing Lab: [facility] [address] [place] [facility] CBC & DIFF LEUKOCYTES [#/VOLUME] IN BLOOD BY AUTOMATED COUNT 8.8 4.0 - 11.0 05/17 Specimen Type: BLOOD Comment: Automated Differentia l Performed Ordering Provider: ME LEEROY FISH Report Released Date/Time: Apr 16, 2024 11:04 AM Reporting Lab: [facility] [address] Performing Lab: [facility] [address] [place] [facility] CBC & DIFF ERYTHROCYTE S [#/VOLUME] IN BLOOD BY AUTOMATED COUNT 4.74 4.60 - 6.20 05/17 Specimen Type: BLOOD Comment: Automated Differentia l Performed Ordering Provider: ME LEEROY FISH Report Released Date/Time: Apr 16, 2024 11:04 AM Reporting Lab: [facility] [address] Performing Lab: [facility] [address] [place] [facility] CBC & DIFF HEMOGLOBIN [MASS/VOLUM E] IN BLOOD 13.1 g/dL 13.5 - 17.9 05/17 L Specimen Type: BLOOD Comment: Automated Differentia l Performed Ordering Provider: ME LEEROY FISH Report Released Date/Time: Apr 16, 2024 11:04 AM Reporting Lab: [facility] [address] Performing Lab: [facility] [address] [place] [facility] CBC & DIFF HEMATOCRIT [VOLUME FRACTION] OF BLOOD BY AUTOMATED COUNT 40.7 41.0 - 54.0 05/17 L Specimen Type: BLOOD Comment: Automated Differentia l Performed Ordering Provider: ME LEEROY FISH Report Released Date/Time: Apr 16, 2024 11:04 AM Reporting Lab: [facility] [address] Performing Lab: [facility] [address] [place] [facility] CBC & DIFF MCV [ENTITIC VOLUME] BY AUTOMATED COUNT 85.9 fL 80.0 - 100.0 05/17 Specimen Type: BLOOD Comment: Automated Differentia l Performed Ordering Provider: ME LEEROY FISH Report Released Date/Time: Apr 16, 2024 11:04 AM Reporting Lab: [facility] [address] Performing Lab: [facility] [address] [place] [facility] CBC & DIFF MCH [ENTITIC MASS] BY AUTOMATED COUNT 27.6 pg 27.0 - 33.0 05/17 Specimen Type: BLOOD Comment: Automated Differentia l Performed Ordering Provider: ME LEEROY FISH Report Released Date/Time: Apr 16, 2024 11:04 AM Reporting Lab: [facility] [address] Performing Lab: [facility] [address] [place] [facility] CBC & DIFF MCHC [MASS/VOLUM E] BY AUTOMATED COUNT 32.2 g/dL 32.0 - 37.5 05/17 Specimen Type: BLOOD Comment: Automated Differentia l Performed Ordering Provider: ME LEEROY FISH Report Released Date/Time: Apr 16, 2024 11:04 AM Reporting Lab: [facility] [address] Performing Lab: [facility] [address] [place] [facility] CBC & DIFF PLATELETS [#/VOLUME] IN BLOOD BY AUTOMATED COUNT 185 150 - 400 05/17 Specimen Type: BLOOD Comment: Automated Differentia l Performed Ordering Provider: ME LEEROY FISH Report Released Date/Time: Apr 16, 2024 11:04 AM Reporting Lab: [facility] [address] Performing Lab: [facility] [address] [place] [facility] CBC & DIFF PLATELET MEAN VOLUME [ENTITIC VOLUME] IN BLOOD BY AUTOMATED COUNT 9.6 fL 9.1 - 13.0 05/17 Specimen Type: BLOOD Comment: Automated Differentia l Performed Ordering Provider: ME LEEROY FISH Report Released Date/Time: Apr 16, 2024 11:04 AM Reporting Lab: [facility] [address] Performing Lab: [facility] [address] [place] [facility] CBC & DIFF NEUTROPHILS /100 LEUKOCYTES IN BLOOD BY MANUAL COUNT 68.6 40.0 - 80.0 05/17 Specimen Type: BLOOD Comment: Automated Differentia l Performed Ordering Provider: ME LEEROY FISH Report Released Date/Time: Apr 16, 2024 11:04 AM Reporting Lab: [facility] [address] Performing Lab: [facility] [address] [place] [facility] CBC & DIFF LYMPHOCYTES /100 LEUKOCYTES IN BLOOD BY MANUAL COUNT 21.8 15.0 - 45.0 05/17 Specimen Type: BLOOD Comment: Automated Differentia l Performed Ordering Provider: ME LEEROY FISH Report Released Date/Time: Apr 16, 2024 11:04 AM Reporting Lab: [facility] [address] Performing Lab: [facility] [address] [place] [facility] CBC & DIFF MONOCYTES/1 00 LEUKOCYTES IN BLOOD BY AUTOMATED COUNT 5.9 2.0 - 12.0 05/17 Specimen Type: BLOOD Comment: Automated Differentia l Performed Ordering Provider: ME LEEROY FISH Report Released Date/Time: Apr 16, 2024 11:04 AM Reporting Lab: [facility] [address] Performing Lab: [facility] [address] [place] [facility] CBC & DIFF EOSINOPHILS /100 LEUKOCYTES IN BLOOD BY AUTOMATED COUNT 2.9 0.0 - 6.0 05/17 Specimen Type: BLOOD Comment: Automated Differentia l Performed Ordering Provider: ME LEEROY FISH Report Released Date/Time: Apr 16, 2024 11:04 AM Reporting Lab: [facility] [address] Performing Lab: [facility] [address] [place] [facility] CBC & DIFF BASOPHILS/1 00 LEUKOCYTES IN BLOOD BY MANUAL COUNT 0.5 0.0 - 2.0 05/17 Specimen Type: BLOOD Comment: Automated Differentia l Performed Ordering Provider: ME LEEROY FISH Report Released Date/Time: Apr 16, 2024 11:04 AM Reporting Lab: [facility] [address] Performing Lab: [facility] [address] [place] [facility] CBC & DIFF ERYTHROCYTE DISTRIBUTIO N WIDTH [RATIO] BY AUTOMATED COUNT 15.0 11.5 - 14.5 05/17 H Specimen Type: BLOOD Comment: Automated Differentia l Performed Ordering Provider: ME LEEROY FISH Report Released Date/Time: Apr 16, 2024 11:04 AM Reporting Lab: [facility] [address] Performing Lab: [facility] [address] [place] [facility] CBC & DIFF LYMPHOCYTES [#/VOLUME] IN BLOOD BY AUTOMATED COUNT 1.9 1.0 - 4.0 05/17 Specimen Type: BLOOD Comment: Automated Differentia l Performed Ordering Provider: ME LEEROY FISH Report Released Date/Time: Apr 16, 2024 11:04 AM Reporting Lab: [facility] [address] Performing Lab: [facility] [address] [place] [facility] CBC & DIFF MONOCYTES [#/VOLUME] IN BLOOD BY AUTOMATED COUNT 0.5 0.1 - 1.0 05/17 Specimen Type: BLOOD Comment: Automated Differentia l Performed Ordering Provider: ME LEEROY FISH Report Released Date/Time: Apr 16, 2024 11:04 AM Reporting Lab: [facility] [address] Performing Lab: [facility] [address] [place] [facility] CBC & DIFF NEUTROPHILS [#/VOLUME] IN BLOOD BY AUTOMATED COUNT 6.0 2.0 - 7.7 05/17 Specimen Type: BLOOD Comment: Automated Differentia l Performed Ordering Provider: ME LEEROY FISH Report Released Date/Time: Apr 16, 2024 11:04 AM Reporting Lab: [facility] [address] Performing Lab: [facility] [address] [place] [facility] CBC & DIFF EOSINOPHILS [#/VOLUME] IN BLOOD BY AUTOMATED COUNT 0.3 0.0 - 0.5 05/17 Specimen Type: BLOOD Comment: Automated Differentia l Performed Ordering Provider: ME LEEROY FISH Report Released Date/Time: Apr 16, 2024 11:04 AM Reporting Lab: [facility] [address] Performing Lab: [facility] [address] [place] [facility] CBC & DIFF BASOPHILS [#/VOLUME] IN BLOOD BY AUTOMATED COUNT 0.0 0.0 - 0.2 05/17 Specimen Type: BLOOD Comment: Automated Differentia l Performed Ordering Provider: ME LEEROY FISH Report Released Date/Time: Apr 16, 2024 11:04 AM Reporting Lab: [facility] [address] Performing Lab: [facility] [address] [place] [facility] CBC & DIFF IG(META,MYE LO,PRO) 0.3 05/17 Specimen Type: BLOOD Comment: Automated Differentia l Performed Ordering Provider: ME LEEROY FISH Report Released Date/Time: Apr 16, 2024 11:04 AM Reporting Lab: [facility] [address] Performing Lab: [facility] [address] [facility] CBC & DIFF IMMATURE GRANULOCYTE S [PRESENCE] IN BLOOD BY AUTOMATED COUNT 0.0 0.0 - 0.1 05/17 Specimen Type: BLOOD Comment: Automated Differentia l Performed Ordering Provider: ME LEEROY FISH Report Released Date/Time: Apr 16, 2024 11:04 AM Reporting Lab: [facility] [address] Performing Lab: [facility] [address] [place] [facility] HEMOGLOBI N A1C HEMOGLOBIN A1C/HEMOGLO BIN.TOTAL [...] Aug 21, 2022 03:48 PM Reporting Lab: [facility] [address] Performing Lab: [facility] [address] [place] [facility] BASIC METABOLIC PANEL+MG CREATININE [MASS/VOLUM E] IN SERUM OR PLASMA 1.2 mg/dL 0.7 - 1.2 03/22 Specimen Type: PLASMA No comment entered. Ordering Provider: ME LEEROY FISH Report Released Date/Time: Aug 21, 2022 03:48 PM Reporting Lab: [facility] [address] Performing Lab: [facility] [address] [place] [facility] BASIC METABOLIC PANEL+MG UREA NITROGEN [MASS/VOLUM E] IN SERUM OR PLASMA 15 mg/dL 8 - 26 03/22 Specimen Type: PLASMA No comment entered. Ordering Provider: ME LEEROY FISH Report Released Date/Time: Aug 21, 2022 03:48 PM Reporting Lab: [facility] [address] Performing Lab: [facility] [address] [place] [facility] BASIC METABOLIC PANEL+MG GLUCOSE [MASS/VOLUM E] IN SERUM OR PLASMA 145 mg/dL 70 - 100 03/22 H Specimen Type: PLASMA No comment entered. Ordering Provider: ME LEEROY FISH Report Released Date/Time: Aug 21, 2022 03:48 PM Reporting Lab: [facility] [address] Performing Lab: [facility] [address] [place] [facility] BASIC METABOLIC PANEL+MG SODIUM [MOLES/VOLU ME] IN SERUM OR PLASMA 138 mmol/L 136 - 145 03/22 Specimen Type: PLASMA No comment entered. Ordering Provider: ME LEEROY FISH Report Released Date/Time: Aug 21, 2022 03:48 PM Reporting Lab: [facility] [address] Performing Lab: [facility] [address] [place] [facility] BASIC METABOLIC PANEL+MG POTASSIUM [MOLES/VOLU ME] IN SERUM OR PLASMA 4.5 mmol/L 3.5 - 5.1 03/22 Specimen Type: PLASMA No comment entered. Ordering Provider: ME LEEROY FISH Report Released Date/Time: Aug 21, 2022 03:48 PM Reporting Lab: [facility] [address] Performing Lab: [facility] [address] [place] [facility] BASIC METABOLIC PANEL+MG CHLORIDE [MOLES/VOLU ME] IN SERUM OR PLASMA 101 mmol/L 98 - 107 03/22 Specimen Type: PLASMA No comment entered. Ordering Provider: ME LEEROY FISH Report Released Date/Time: Aug 21, 2022 03:48 PM Reporting Lab: [facility] [address] Performing Lab: [facility] [address] [place] [facility] BASIC METABOLIC PANEL+MG CARBON DIOXIDE, TOTAL [MOLES/VOLU ME] IN SERUM OR PLASMA 27 mmol/L 22 - 29 03/22 Specimen Type: PLASMA No comment entered. Ordering Provider: ME LEEROY FISH Report Released Date/Time: Aug 21, 2022 03:48 PM Reporting Lab: [facility] [address] Performing Lab: [facility] [address] [place] [facility] BASIC METABOLIC PANEL+MG CALCIUM [MASS/VOLUM E] IN SERUM OR PLASMA 10.0 mg/dL 8.4 - 10.2 03/22 Specimen Type: PLASMA No comment entered. Ordering Provider: ME LEEROY FISH Report Released Date/Time: Aug 21, 2022 03:48 PM Reporting Lab: [facility] [id number] Performing Lab: [facility] [address] [place] [facility] BASIC METABOLIC PANEL+MG MAGNESIUM [MASS/VOLUM E] IN SERUM OR PLASMA 1.9 mg/dL 1.6 - 2.6 03/22 Specimen Type: PLASMA No comment entered. Ordering Provider: ME LEEROY FISH Report Released Date/Time: Aug 21, 2022 03:48 PM Reporting Lab: [facility] [address] Performing Lab: [facility] [address] [place] [facility] BASIC METABOLIC PANEL+MG ANION GAP IN SERUM OR PLASMA 10 mmol/L 5 - 15 03/22 Specimen Type: PLASMA No comment entered. Ordering Provider: ME LEEROY FISH Report Released Date/Time: Aug 21, 2022 03:48 PM Reporting Lab: [facility] [address] Performing Lab: [facility] [address] [place] [facility] BASIC METABOLIC PANEL+MG GLOMERULAR FILTRATION RATE/1.73 SQ M.PREDICTED [VOLUME RATE/AREA] IN SERUM, PLASMA OR BLOOD BY CREATININE- BASED FORMULA (CKD-EPI 2020) 63 60 03/22 Specimen Type: PLASMA No comment entered. Ordering Provider: ME LEEROY FISH Report Released Date/Time: Aug 21, 2022 03:48 PM Reporting Lab: [facility] [address] Performing Lab: [facility] [address] [place] [facility] HEMOGLOBI N A1C HEMOGLOBIN A1C/HEMOGLO BIN.TOTAL [...] December 22, 2021 03:46 PM Reporting Lab: [facility] [address] Performing Lab: [facility] [address] [place] [facility] BASIC METABOLIC PANEL+MG CREATININE [MASS/VOLUM E] IN SERUM OR PLASMA 0.9 mg/dL 0.7 - 1.2 08/18 Specimen Type: PLASMA No comment entered. Ordering Provider: ME LEEROY FISH Report Released Date/Time: December 22, 2021 03:46 PM Reporting Lab: [facility] [address] Performing Lab: [facility] [address] [place] [facility] BASIC METABOLIC PANEL+MG UREA NITROGEN [MASS/VOLUM E] IN SERUM OR PLASMA 12 mg/dL 8 - 26 08/18 Specimen Type: PLASMA No comment entered. Ordering Provider: ME LEEROY FISH Report Released Date/Time: December 22, 2021 03:46 PM Reporting Lab: [facility] [address] Performing Lab: [facility] [address] [place] [facility] BASIC METABOLIC PANEL+MG GLUCOSE [MASS/VOLUM E] IN SERUM OR PLASMA 184 mg/dL 70 - 100 08/18 H Specimen Type: PLASMA No comment entered. Ordering Provider: ME LEEROY FISH Report Released Date/Time: December 22, 2021 03:46 PM Reporting Lab: [facility] [address] Performing Lab: [facility] [address] [place] [facility] BASIC METABOLIC PANEL+MG SODIUM [MOLES/VOLU ME] IN SERUM OR PLASMA 137 mmol/L 136 - 145 08/18 Specimen Type: PLASMA No comment entered. Ordering Provider: ME LEEROY FISH Report Released Date/Time: December 22, 2021 03:46 PM Reporting Lab: [facility] [address] Performing Lab: [facility] [address] [place] [facility] BASIC METABOLIC PANEL+MG POTASSIUM [MOLES/VOLU ME] IN SERUM OR PLASMA 3.9 mmol/L 3.5 - 5.1 08/18 Specimen Type: PLASMA No comment entered. Ordering Provider: ME LEEROY FISH Report Released Date/Time: December 22, 2021 03:46 PM Reporting Lab: [facility] [address] Performing Lab: [facility] [address] [place] [facility] BASIC METABOLIC PANEL+MG CHLORIDE [MOLES/VOLU ME] IN SERUM OR PLASMA 102 mmol/L 98 - 107 08/18 Specimen Type: PLASMA No comment entered. Ordering Provider: ME LEEROY FISH Report Released Date/Time: December 22, 2021 03:46 PM Reporting Lab: [facility] [address] Performing Lab: [facility] [address] [place] [facility] BASIC METABOLIC PANEL+MG CARBON DIOXIDE, TOTAL [MOLES/VOLU ME] IN SERUM OR PLASMA 26 mmol/L 22 - 29 08/18 Specimen Type: PLASMA No comment entered. Ordering Provider: ME LEEROY FISH Report Released Date/Time: December 22, 2021 03:46 PM Reporting Lab: [facility] [address] Performing Lab: [facility] [address] [place] [facility] BASIC METABOLIC PANEL+MG CALCIUM [MASS/VOLUM E] IN SERUM OR PLASMA 9.4 mg/dL 8.4 - 10.2 08/18 Specimen Type: PLASMA No comment entered. Ordering Provider: ME LEEROY FISH Report Released Date/Time: December 22, 2021 03:46 PM Reporting Lab: [facility] [address] Performing Lab: [facility] [address] [place] [facility] BASIC METABOLIC PANEL+MG MAGNESIUM [MASS/VOLUM E] IN SERUM OR PLASMA 1.6 mg/dL 1.6 - 2.6 08/18 Specimen Type: PLASMA No comment entered. Ordering Provider: ME LEEROY FISH Report Released Date/Time: December 22, 2021 03:46 PM Reporting Lab: [facility] [address] Performing Lab: [facility] [address] [place] [facility] BASIC METABOLIC PANEL+MG ANION GAP IN SERUM OR PLASMA 9 mmol/L 5 - 15 08/18 Specimen Type: PLASMA No comment entered. Ordering Provider: ME LEEROY FISH Report Released Date/Time: December 22, 2021 03:46 PM Reporting Lab: [facility] [address] Performing Lab: [facility] [address] [place] [facility] BASIC METABOLIC PANEL+MG GLOMERULAR FILTRATION RATE/1.73 SQ M.PREDICTED [VOLUME RATE/AREA] IN SERUM, PLASMA OR BLOOD BY CREATININE- BASED FORMULA (CKD-EPI) 89 60 08/18 Specimen Type: PLASMA No comment entered. Ordering Provider: ME LEEROY FISH Report Released Date/Time: December 22, 2021 03:46 PM Reporting Lab: [facility] [address] Performing Lab: [facility] [address] [facility] Vital Signs Combined list of inpatient and outpatient Vital Signs from Department of [facility] and [facility], ranging from 12 months to all on record, depending upon the facility. Vital Sign Value Date Comments Source SYSTOLIC BLOOD PRESSURE 123 05/17/2024 14:50:52 [facility] DIASTOLIC BLOOD PRESSURE 79 05/17/2024 14:50:52 [facility] PULSE OXIMETRY 95 05/17/2024 14:50:52 [facility] WEIGHT 240.8 05/17/2024 14:50:52 [facility] BMI 35kg/m2 05/17/2024 14:50:52 [facility] PAIN 0 05/17/2024 14:50:52 [facility] HEIGHT 70 05/17/2024 14:50:52 [facility] TEMPERATURE 97.8 05/17/2024 14:50:52 [facility] PULSE 113 05/17/2024 14:50:52 [facility] Encounters Combined list of: 1) 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 2) Encounters from the Department of [facility] facilities going back up to 280 months. Location Location Details Encounter Type Encounter Number Reason For Visit Attending Provider ADM Date DC Date Status Disposition Source [facility] Outpatient Encounter [id number] 03/10 [facility] HC PRO PHONE CALL 11-20 MIN [id number] Diagnos is: ICD-10- CM E11.42 Type 2 diabete s mellitu s with diabeti c polyneu ropathy
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
NAIDL,KARI 04/18 [place] [facility] [place] [facility] HC PRO PHONE CALL 21-30 MIN [id number] Diagnos is: ICD-10- CM E11.42 Type 2 diabete s mellitu s with diabeti c polyneu ropathy
NAIDL,KARI 07/11 [place] [facility] [place] [facility] PHARM ADDL 15 MIN [id number] Diagnos is: ICD-10- CM E11.42 Type 2 diabete s mellitu s with diabeti c polyneu ropathy
NAIDL,KARI 08/29 [place] [facility] [place] [facility] MTMS BY PHARM EST 15 MIN [id number] Diagnos is: ICD-10- CM E11.42 Type 2 diabete s mellitu s with diabeti c polyneu ropathy
AWKER,SOLEDAD L 10/10 [place] [facility] [place] [facility] Outpatient Encounter [id number] 10/16 [place] [facility] [place] [facility] MTMS BY PHARM EST 15 MIN [id number] Diagnos is: ICD-10- CM E11.621 Type 2 diabete s mellitu s with foot ulcer<b r/> NAIDL,KARI 11/06 [place] [facility] [place] [facility] MTMS BY PHARM ADDL 15 MIN [id number] Diagnos is: ICD-10- CM E11.42 Type 2 diabete s mellitu s with diabeti c polyneu ropathy
NAIDL,KARI 11/22 [place] [facility] [place] [facility] MTMS BY PHARM ADDL 15 MIN [id number] Diagnos is: ICD-10- CM E11.42 Type 2 diabete s mellitu s with diabeti c polyneu ropathy
NAIDL,KARI 01/17 [place] [facility] [place] [facility] Outpatient Encounter [id number] Diagnos is: ICD-10- CM E11.42 Type 2 diabete s mellitu s with diabeti c polyneu ropathy
DAWNA ,MILAGRO 01/18 [place] [facility] [place] [facility] QNHP OL DIG ASSMT&MGMT 5-10 [id number] Diagnos is: ICD-10- CM E11.42 Type 2 diabete s mellitu s with diabeti c polyneu ropathy
MOE CHOWDHURY 01/18 [place] [facility] [place] [facility] MTMS BY PHARM EST 15 MIN [id number] Diagnos is: ICD-10- CM E11.42 Type 2 diabete s mellitu s with diabeti c polyneu ropathy
NAIDJignesh,KARI 02/21 [place] [facility] [place] [facility] Outpatient Encounter [id number] RORY CAPPS 02/26 [place] [facility] [place] [facility] Outpatient Encounter [id number] 03/14 [place] [facility] [place] [facility] QNHP OL DIG ASSMT&MGMT 11-20 [id number] Diagnos is: ICD-10- CM E11.42 Type 2 diabete s mellitu s with diabeti c polyneu ropathy
NAIDL,KARI 03/27 [place] [facility] [place] [facility] Outpatient Encounter [id number] 04/16 [place] [facility] [place] [facility] MTMS BY PHARM EST 15 MIN [id number] Diagnos is: ICD-10- CM E11.42 Type 2 diabete s mellitu s with diabeti c polyneu ropathy
NAIDL,KARI 04/26 [place] [facility] [place] [facility] OFFICE O/P EST MOD 30 MIN [id number] Diagnos is: ICD-10- CM E11.42 Type 2 diabete s mellitu s with diabeti c polyneu ropathy
Rhiannon FISH 05/17 [facility] [place] [facility] [place] [facility] MTMS BY PHARM EST 15 MIN [id number] Diagnos is: ICD-10- CM E11.42 Type 2 diabete s mellitu s with diabeti c polyneu ropathy
NAIDL,KARI 06/11 [place] [facility] [place] [facility] Outpatient Encounter [id number] 07/01 [place] [facility] [place] [facility] Outpatient Encounter [id number] 07/01 [facility] [place] [facility] MTMS BY PHARM EST 15 MIN [id number] Diagnos is: ICD-10- CM E11.42 Type 2 diabete s mellitu s with diabeti c polyneu ropathy
NAIDL,KARI 07/09 [place] [facility] [place] [facility] Out[place] Encounter [id number] [place] CÁRDENAS I 07/09 [facility] [place] [facility] [place] [facility] Outpatient Encounter [id number] ELIZABETH YOO 07/10 [facility] [place] [facility] [place] [facility] Outpatient Encounter [id number] ELIZABETH YOO 07/10 [facility] Social History Combined list of available smoking, tobacco, and other social history from Department of Defense and [facility] Affairs facilities. Social History Type Response Date Comment [facility] Tobacco smoking status [facility]-TO[facility]ACCO FOR[facility] History of tobacco use [place]-TOBACCO QUIT 1 5 YRS OR MORE 05/17/2024 [facility] History of tobacco use [place] FORMER USER 08/18/2022 [facility] History of tobacco use [place]-TOBACCO QUIT 1 5 YRS OR MORE 05/03/2021 [facility] History of tobacco use [place]-TO[place]ACCO FORMER USER 04/21/2020 [facility] History of tobacco use FORMER TOBACCO US E >1Y <7Y 04/03/2018 [facility] History of tobacco use CURRENT TOBACCO USER 03/09/2007 [facility] Plan of Care List of future care activities from [facility] facilities. Additional future care activities may be listed in the Assessment and Plan section. Date/Time Care Activity Care Activity Detail Facili ty 08/14/2024 AMBULATORY - NONE AMBULATORY - NONE [facility] [place] [facility] Advance Directives List of completed, amended, or rescinded Advance Directives on record at [facility] facilities. An actual copy of the Directive is not included. Date Advance Directive Provider Source 06/22/2021 ADVANCE DIRECTIVE DISCUSSION ALLYSON GRAF [facility] 06/22/2021 ADVANCE DIRECTIVE ALLYSON GRAF [facility] 03/09/2007 [facility]
== END 2024-07-22 10:06 | disposition home or self-care (01) ==
LOC: WOUND 10:06
PROVIDERS: Visit Provider Family Medicine
DX: E11.621 Type 2 diabetes mellitus with foot ulcer (principal); L97.512 Non-pressure chronic ulcer of other part of right foot with fat layer exposed; I89.0 Lymphedema, not elsewhere classified; Z79.4 Long term (current) use of insulin; Z79.84 Long term (current) use of oral hypoglycemic drugs
CPT/HCPCS: 15271; 15275; Q4201

== ENCOUNTER 2024-08-06 11:25 | Outpatient (CLI) | payer MEDICARE, BC, SELFPAY | END 2024-08-06 11:26 | disposition home or self-care (01) | LOC: WOUND 11:25 | PROVIDERS: Visit Provider Nurse Practitioner Family | DX: E11.621 Type 2 diabetes mellitus with foot ulcer (principal); I89.0 Lymphedema, not elsewhere classified; L97.518 Non-pressure chronic ulcer of other part of right foot with other specified severity; Z79.4 Long term (current) use of insulin; Z79.84 Long term (current) use of oral hypoglycemic drugs | CPT/HCPCS: 11042; 73620; G0463 ==

== ENCOUNTER 2024-08-06 12:34 | Outpatient (CLI) | payer MEDICARE, BC, SELFPAY ==
--- NOTE | 2024-08-06 12:45 | CRLHL7_ITS ---
For Patients: As a result of the Cures Act, medical imaging exams and procedure reports are released immediately into your electronic medical record. You may view this report before your referring provider. If you have questions, please contact your health care provider. Indication: NON HEALING DFU, ASSESS FOR OSTEOMYELITIS Technique: Right foot 3 views Comparison: None Findings: Plantar and posterior calcaneal spurs. Vascular calcifications. Near complete solid osseous fusion at the great toe interphalangeal joint with intact fixation screw. Postop changes of partial resection 5th metatarsal. Midfoot degenerative joint disease. No acute periostitis. No cortical destruction. No acute fracture. Multiple hammertoe deformities. Impression: No evidence of acute osteomyelitis. Dictated by Marcus Stevens MD @ 08/07/2024 1:03:57 PM (Electronically Signed)
== END 2024-08-06 12:35 | disposition home or self-care (01) ==
LOC: RAD 12:34
PROVIDERS: Visit Provider Nurse Practitioner Family
DX: L97.509 Non-pressure chronic ulcer of other part of unspecified foot with unspecified severity (principal); E11.621 Type 2 diabetes mellitus with foot ulcer
CPT/HCPCS: 73620

== ENCOUNTER 2024-08-13 11:27 | Outpatient (CLI) | payer MEDICARE, BC, SELFPAY | END 2024-08-13 11:28 | disposition home or self-care (01) | LOC: WOUND 11:28 | PROVIDERS: Visit Provider Nurse Practitioner Family | DX: E11.621 Type 2 diabetes mellitus with foot ulcer (principal); I89.0 Lymphedema, not elsewhere classified; L97.518 Non-pressure chronic ulcer of other part of right foot with other specified severity | CPT/HCPCS: 97597 ==

== ENCOUNTER 2024-08-26 11:27 | Outpatient (CLI) | payer MEDICARE, BC, SELFPAY | END 2024-08-26 11:28 | disposition home or self-care (01) | LOC: WOUND 11:27 | PROVIDERS: Visit Provider Nurse Practitioner Family | DX: E11.621 Type 2 diabetes mellitus with foot ulcer (principal); L97.518 Non-pressure chronic ulcer of other part of right foot with other specified severity; I89.0 Lymphedema, not elsewhere classified; Z79.4 Long term (current) use of insulin; Z79.84 Long term (current) use of oral hypoglycemic drugs | CPT/HCPCS: 87070; 87186; 97597; G0463 ==

== ENCOUNTER 2024-09-03 11:23 | Outpatient (CLI) | payer MEDICARE, BC, SELFPAY | END 2024-09-03 11:24 | disposition home or self-care (01) | LOC: WOUND 11:23 | PROVIDERS: Visit Provider Nurse Practitioner Family | DX: E11.621 Type 2 diabetes mellitus with foot ulcer (principal); I89.0 Lymphedema, not elsewhere classified; L97.512 Non-pressure chronic ulcer of other part of right foot with fat layer exposed; Z79.84 Long term (current) use of oral hypoglycemic drugs | CPT/HCPCS: 97597 ==

== ENCOUNTER 2024-09-10 11:20 | Outpatient (CLI) | payer MEDICARE, BC, SELFPAY | END 2024-09-10 11:21 | disposition home or self-care (01) | LOC: WOUND 11:21 | PROVIDERS: Visit Provider Nurse Practitioner Family | DX: E11.621 Type 2 diabetes mellitus with foot ulcer (principal); L97.512 Non-pressure chronic ulcer of other part of right foot with fat layer exposed; I89.0 Lymphedema, not elsewhere classified; Z79.4 Long term (current) use of insulin; Z79.84 Long term (current) use of oral hypoglycemic drugs | CPT/HCPCS: 15275; Q4201 ==

== ENCOUNTER 2024-09-16 10:52 | Outpatient (CLI) | payer MEDICARE, BC, SELFPAY | END 2024-09-16 10:53 | disposition home or self-care (01) | LOC: WOUND 10:52 | PROVIDERS: Visit Provider Nurse Practitioner Family | DX: E11.621 Type 2 diabetes mellitus with foot ulcer (principal); L97.512 Non-pressure chronic ulcer of other part of right foot with fat layer exposed; I89.0 Lymphedema, not elsewhere classified; Z79.4 Long term (current) use of insulin; Z79.84 Long term (current) use of oral hypoglycemic drugs | CPT/HCPCS: 97597 ==

== ENCOUNTER 2024-09-24 11:27 | Outpatient (CLI) | payer MEDICARE, BC, SELFPAY | END 2024-09-24 11:28 | disposition home or self-care (01) | LOC: WOUND 11:28 | PROVIDERS: Visit Provider Nurse Practitioner Family | DX: E11.621 Type 2 diabetes mellitus with foot ulcer (principal); L97.512 Non-pressure chronic ulcer of other part of right foot with fat layer exposed; I89.0 Lymphedema, not elsewhere classified; Z79.4 Long term (current) use of insulin; Z79.84 Long term (current) use of oral hypoglycemic drugs | CPT/HCPCS: 15275; Q4201 ==

== ENCOUNTER 2024-10-01 11:32 | Outpatient (CLI) | payer MEDICARE, BC, SELFPAY | END 2024-10-01 11:33 | disposition home or self-care (01) | LOC: WOUND 11:33 | PROVIDERS: Visit Provider Nurse Practitioner Family | DX: E11.621 Type 2 diabetes mellitus with foot ulcer (principal); L97.512 Non-pressure chronic ulcer of other part of right foot with fat layer exposed; I89.0 Lymphedema, not elsewhere classified; Z79.84 Long term (current) use of oral hypoglycemic drugs | CPT/HCPCS: 97597 ==

== ENCOUNTER 2024-10-08 11:30 | Outpatient (CLI) | payer MEDICARE, BC, SELFPAY | END 2024-10-08 11:31 | disposition home or self-care (01) | LOC: WOUND 11:32 | PROVIDERS: Visit Provider Nurse Practitioner Family | DX: E11.621 Type 2 diabetes mellitus with foot ulcer (principal); L97.512 Non-pressure chronic ulcer of other part of right foot with fat layer exposed; I89.0 Lymphedema, not elsewhere classified; Z79.84 Long term (current) use of oral hypoglycemic drugs; Z79.4 Long term (current) use of insulin | CPT/HCPCS: 15275; Q4201 ==

== ENCOUNTER 2024-10-15 11:24 | Outpatient (CLI) | payer MEDICARE, BC, SELFPAY | END 2024-10-15 11:25 | disposition home or self-care (01) | LOC: WOUND 11:24 | PROVIDERS: Visit Provider Nurse Practitioner Family | DX: E11.621 Type 2 diabetes mellitus with foot ulcer (principal); L97.512 Non-pressure chronic ulcer of other part of right foot with fat layer exposed; I89.0 Lymphedema, not elsewhere classified; Z79.84 Long term (current) use of oral hypoglycemic drugs; Z79.4 Long term (current) use of insulin | CPT/HCPCS: 97597; G0463 ==

== ENCOUNTER 2024-10-22 09:37 | Outpatient (CLI) | payer MEDICARE, BC, SELFPAY | END 2024-10-22 09:38 | disposition home or self-care (01) | LOC: MRI 09:39 | PROVIDERS: Visit Provider Nurse Practitioner Family | DX: E11.621 Type 2 diabetes mellitus with foot ulcer (principal) | CPT/HCPCS: 73720; 97597; A9575 ==

== ENCOUNTER 2024-10-22 11:15 | Outpatient (CLI) | payer MEDICARE, BC, SELFPAY | END 2024-10-22 11:16 | disposition home or self-care (01) | LOC: WOUND 11:16 | PROVIDERS: Visit Provider Nurse Practitioner Family | DX: E11.621 Type 2 diabetes mellitus with foot ulcer (principal); L97.512 Non-pressure chronic ulcer of other part of right foot with fat layer exposed; I89.0 Lymphedema, not elsewhere classified; Z79.84 Long term (current) use of oral hypoglycemic drugs; Z79.4 Long term (current) use of insulin | CPT/HCPCS: 97597 ==

== ENCOUNTER 2024-10-29 11:27 | Outpatient (CLI) | payer MEDICARE, BC, SELFPAY | END 2024-10-29 11:28 | disposition home or self-care (01) | LOC: WOUND 11:28 | PROVIDERS: Visit Provider Family Medicine | DX: E11.621 Type 2 diabetes mellitus with foot ulcer (principal); L97.512 Non-pressure chronic ulcer of other part of right foot with fat layer exposed; I89.0 Lymphedema, not elsewhere classified; Z79.4 Long term (current) use of insulin; Z79.84 Long term (current) use of oral hypoglycemic drugs | CPT/HCPCS: 15271; 15275; Q4201 ==

== ENCOUNTER 2024-11-05 11:18 | Outpatient (CLI) | payer MEDICARE, BC, SELFPAY | END 2024-11-05 11:19 | disposition home or self-care (01) | LOC: WOUND 11:18 | PROVIDERS: Visit Provider Nurse Practitioner Family | DX: E11.621 Type 2 diabetes mellitus with foot ulcer (principal); L97.512 Non-pressure chronic ulcer of other part of right foot with fat layer exposed; I89.0 Lymphedema, not elsewhere classified; Z79.84 Long term (current) use of oral hypoglycemic drugs; Z79.4 Long term (current) use of insulin | CPT/HCPCS: 11042; G0463 ==

== ENCOUNTER 2024-11-12 11:31 | Outpatient (CLI) | payer MEDICARE, BC, SELFPAY | END 2024-11-12 11:32 | disposition home or self-care (01) | LOC: WOUND 11:31 | PROVIDERS: Visit Provider Nurse Practitioner Family | DX: E11.621 Type 2 diabetes mellitus with foot ulcer (principal); I89.0 Lymphedema, not elsewhere classified; L97.512 Non-pressure chronic ulcer of other part of right foot with fat layer exposed; Z79.85 Long-term (current) use of injectable non-insulin antidiabetic drugs | CPT/HCPCS: 97597 ==

== ENCOUNTER 2024-11-21 13:17 | Outpatient (CLI) | payer MEDICARE, BC, SELFPAY | END 2024-11-21 13:18 | disposition home or self-care (01) | LOC: WOUND 13:17 | PROVIDERS: Visit Provider Nurse Practitioner Family | DX: E11.621 Type 2 diabetes mellitus with foot ulcer (principal); L97.512 Non-pressure chronic ulcer of other part of right foot with fat layer exposed; I89.0 Lymphedema, not elsewhere classified; Z79.85 Long-term (current) use of injectable non-insulin antidiabetic drugs | CPT/HCPCS: 11042 ==

== ENCOUNTER 2024-12-03 11:23 | Outpatient (CLI) | payer MEDICARE, BC, SELFPAY | END 2024-12-03 11:24 | disposition home or self-care (01) | LOC: WOUND 11:23 | PROVIDERS: Visit Provider Nurse Practitioner Family | DX: E11.621 Type 2 diabetes mellitus with foot ulcer (principal); L97.512 Non-pressure chronic ulcer of other part of right foot with fat layer exposed; I89.0 Lymphedema, not elsewhere classified; Z79.85 Long-term (current) use of injectable non-insulin antidiabetic drugs | CPT/HCPCS: 11042 ==

== ENCOUNTER 2025-01-02 10:48 | Outpatient (CLI) | payer MEDICARE, BC, SELFPAY | END 2025-01-02 10:49 | disposition home or self-care (01) | LOC: WOUND 10:48 | PROVIDERS: Visit Provider Nurse Practitioner Family | DX: E11.621 Type 2 diabetes mellitus with foot ulcer (principal); I89.0 Lymphedema, not elsewhere classified; L97.512 Non-pressure chronic ulcer of other part of right foot with fat layer exposed; Z79.85 Long-term (current) use of injectable non-insulin antidiabetic drugs | CPT/HCPCS: 97597 ==